=== PATIENT | male | born 1935 | race Caucasian/White ===

== ENCOUNTER 2017-04-30 09:23 | Day surgery (SDC) | payer MEDICARE ==
[2017-04-24 14:46] VITALS: BMI 30.8
[~2017-04-30 09:23] MED LIST: LACTATED RINGERS 1,000 ML IV SCH
[2017-04-30 10:03] LABS: Glucose,Whole Blood 116 mg/dL (75-99)
[2017-04-30] MEDS ORDERED: LIDOCAINE 1% 20 ML VIAL (10MG/ML) FOR IV START INTRADERMA ONE (10:03)
[2017-04-30 10:05] VITALS: TEMP 98
[2017-04-30] MEDS ORDERED: LIDOCAINE 1% INJ 10MG/ML (20 ML MDV) ONE (10:34)
[2017-04-30] MEDS ORDERED: PROPOFOL 10 MG/ML 20 ML VIAL IV ONE (10:34)
--- NOTE | 2017-04-30 10:52 | P.PCN ---
Date of Procedure: 04/30/17 Procedure(s) Performed: BRIEF HISTORY: Patient is a 81-year-old, pleasant, white male scheduled for an upper endoscopy as a part of evaluation of history of GERD and intermittent dysphagia to solids. 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 Following that he had surveillance upper endoscopy a few times and the last one was done in November 2012 at which time there was no evidence of recurrent Hernandez's esophagus. He remained on IV proton pump inhibitors and was doing well until recently when he started having more reflux and dysphagia.. PROCEDURE PERFORMED: Esophagogastroduodenoscopy with biopsy PREOPERATIVE DIAGNOSIS: GERD/intermittent dysphagia to solids/prior history of Hernandez's esophagus status post RFA in 2010. IV sedation per anesthesia. PROCEDURE: After informed consent was obtained, the patient was brought into the endoscopy unit. IV sedation was administered by Anesthesia under continuous monitoring. Initially the Olympus GIF-140 video endoscope was inserted into the mouth. Esophagus intubated without any difficulty. It was gradually advanced into the stomach and duodenum and carefully examined. The bulb and the second part of the duodenum appeared normal. The scope at this time was withdrawn to the stomach, adequately insufflated with air, and upon careful examination, mucosa of the antrum, body, cardia and the fundus appeared normal. The scope was then withdrawn into the esophagus. Small hiatal hernia noted. The GE junction was located at 40 cm from the incisors. Proximal to the GE junction at 38 cm from the incisors there was a raised ulcerated lesion measuring 1.5 cm in size and multiple biopsies were obtained from this area. Adjacent to this area there was a 1 L area of Hernandez's appearing mucosa noted. The rest of the esophagus appeared normal. There were no erosions or ulcerations seen and the patient tolerated the procedure well. IMPRESSION: 1. 1.5 cm slightly raised ulcerated lesion in the distal esophagus at 38 cm from the anal verge status post multiple biopsies. 2. Small hiatal hernia. RECOMMENDATIONS: The findings of this examination were discussed with the patient as well as his family. He was advised to follow with the biopsy results and he'll be seen in office in a week..
[2017-04-30 10:54] VITALS: RESP 18
[2017-04-30 11:12] VITALS: BP 126/67; PULSE 67
== END 2017-04-30 11:33 | disposition home or self-care (01) ==
LOC: ORWHC2ENDO 09:23
PROVIDERS: ATTEND Internal Medicine Gastroenterology
DX: C15.5 Malignant neoplasm of lower third of esophagus (principal); K21.9 Gastro-esophageal reflux disease without esophagitis; K44.9 Diaphragmatic hernia without obstruction or gangrene; I10 Essential (primary) hypertension; E78.5 Hyperlipidemia, unspecified; M10.9 Gout, unspecified; E11.9 Type 2 diabetes mellitus without complications; Z79.82 Long term (current) use of aspirin; Z79.4 Long term (current) use of insulin; Z79.899 Other long term (current) drug therapy; Z88.0 Allergy status to penicillin; Z91.040 Latex allergy status
CPT/HCPCS: 88305; 43239; J2001; J2704

== ENCOUNTER 2017-09-01 17:43 | Emergency (ER) | payer MEDICARE ==
[2017-09-01] MEDS ORDERED: OXYMETAZOLINE 0.05% NASL SPRAY 1 SPRAY BOTTLE NASAL STA (18:10)
[2017-09-01] MEDS ORDERED: EPINEPHrine TOPICAL 1 MG/ML 30 ML NASAL STA (18:15)
[2017-09-01] MEDS ORDERED: COCAINE HCL 4 ML SOLUTION TOPICAL ONE (18:16)
--- NOTE | 2017-09-01 18:47 | ED ---
ENT HPI - General Chief complaint: ENT Stated complaint: Nosebleed/ca pt Time Seen by Provider: 09/01/17 18:02 Source: patient, RN notes reviewed Mode of arrival: ambulatory Limitations: no limitations - History of Present Illness Initial comments: This is a 82-year-old male who is currently being treated for esophageal cancer who is status post radiation therapy today he was given IV fluids who started developing a nosebleed earlier today and has persisted throughout the day. His states he has been having more recent nosebleeds over last couple weeks. Blood work done today shows that had a platelet count 77,000. He denies any fevers chills sweats or other symptoms no trauma is reported. He believes is coming on the right side of his head and also bleeding on the left side also. MD complaint: epistaxis - Related Data Home Medications Medication Instructions Recorded Confirmed Aspirin 81 mg PO DAILY 07/05/15 09/01/17 Cetirizine HCl 10 mg PO DAILY PRN 07/05/15 09/01/17 Insulin Glargine,Hum.rec.anlog 40 units SQ QAM 07/05/15 09/01/17 [Lantus Solostar] Nitroglycerin Sl Tabs [Nitrostat] 0.4 mg SUBLINGUAL Q5M PRN 07/05/15 09/01/17 Omeprazole [PriLOSEC] 40 mg PO BID 07/05/15 09/01/17 Potassium Chloride [Klor-Con 10 meq PO DAILY 07/05/15 09/01/17 Sprinkle] Spironolactone [Aldactone] 12.5 mg PO DAILY 07/05/15 09/01/17 Torsemide [Demadex] 100 mg PO DAILY 07/05/15 09/01/17 Zolpidem [Ambien] 10 mg PO HS 07/05/15 09/01/17 Gabapentin [Neurontin] 900 mg PO AC-TID 04/24/17 09/01/17 Gemfibrozil [Lopid] 600 mg PO AC-BID 04/24/17 09/01/17 Insulin Glargine,Hum.rec.anlog 20 unit SQ PC-SUPPER 04/24/17 09/01/17 [Lantus Solostar] traMADol-ACETAMINOP 37.5-325MG 1 - 2 tab PO TID PRN 04/24/17 09/01/17 [Ultracet] INSULIN LISPRO (HumaLOG) [HumaLOG] See Protocol SQ ACHS 09/01/17 09/01/17 Metoprolol Tartrate [Lopressor] 25 mg PO DAILY 09/01/17 09/01/17 Pravastatin Sodium [Pravachol] 80 mg PO HS 09/01/17 09/01/17 metFORMIN HCL [Glucophage] 1,000 mg PO BID 09/01/17 09/01/17 Allergies Allergy/AdvReac Type Severity Reaction Status Date / Time latex Allergy Itching, Verified 09/01/17 18:21 swelling penicillin G Allergy Rash/Hives Verified 09/01/17 18:21 Review of Systems ROS Statement: Those systems with pertinent positive or pertinent negative responses have been documented in the HPI. ROS Other: All systems not noted in ROS Statement are negative. Past Medical History Past Medical History: Cancer, Diabetes Mellitus, GERD/Reflux, Hyperlipidemia, Hypertension, Osteoarthritis (OA) Additional Past Medical History / Comment(s): gout, CARDOSO'S esophagus, History of Any Multi-Drug Resistant Organisms: None Reported Past Surgical History: Appendectomy, Orthopedic Surgery Additional Past Surgical History / Comment(s): LILA shoulder rotator CUFF, ORIF LT FOOT, "esophagus ablation", lila cataracts Past Anesthesia/Blood Transfusion Reactions: No Reported Reaction Additional Past Anesthesia/Blood Transfusion Reaction / Comment(s): . Past Psychological History: No Psychological Hx Reported Smoking Status: Never smoker Past Alcohol Use History: None Reported Past Drug Use History: None Reported - Past Family History Mother Family Medical History: Cancer Additional Family Medical History / Comment(s): . Father Family Medical History: Coronary Artery Disease (CAD) Additional Family Medical History / Comment(s): AT AGE 53 General Exam - General Exam Comments Initial Comments: This is a well-developed well-nourished awake alert oriented 3 male Limitations: no limitations General appearance: alert, anxious Head exam: Present: atraumatic, normocephalic, normal inspection Eye exam: Present: normal appearance, PERRL, EOMI. Absent: scleral icterus, conjunctival injection, periorbital swelling ENT exam: Present: other (Active bleeding from the right naris with some apparent On for the left a nasal clamp had been applied.) Neck exam: Present: normal inspection. Absent: tenderness, meningismus, lymphadenopathy Respiratory exam: Present: normal lung sounds bilaterally. Absent: respiratory distress, wheezes, rales, rhonchi, stridor Cardiovascular Exam: Present: regular rate, normal rhythm, normal heart sounds. Absent: systolic murmur, diastolic murmur, rubs, gallop, clicks Extremities exam: Present: normal inspection, full ROM, normal capillary refill. Absent: tenderness, pedal edema, joint swelling, calf tenderness Back exam: Absent: tenderness Neurological exam: Present: alert, oriented X3, CN II-XII intact Psychiatric exam: Present: normal affect, normal mood Skin exam: Present: warm, dry, intact, normal color. Absent: rash Course Vital Signs 09/01/17 09/01/17 17:54 19:12 Temperature 98.3 F Pulse Rate 95 93 Respiratory 20 17 Rate Blood Pressure 106/60 140/70 O2 Sat by Pulse 98 98 Oximetry Procedures - Procedures Initial comment: I did place a cotton pledget with 50-50 adrenaline and 4% cocaine in the patient 's right naris this was instilled and left for about 15 minutes. It was removed no further bleeding was noted patient was observed for quite a period time he was able ambulate no further bleeding he was cautioned about blowing his nose using saline he has no humidifier in his house and was recommended he get a humidifier he is aware that it could Medical Decision Making - Medical Decision Making Patient was observed for a period of time no further bleeding he'll be discharged Disposition Clinical Impression: Epistaxis Disposition: HOME SELF-CARE Condition: Good Instructions: Nosebleed (ED) Referrals: Sumit Dozier DO [Primary Care Provider] - 1-2 days
[2017-09-01 19:47] VITALS: BP 121/62; PULSE 60; RESP 20; TEMP 96.9
== END 2017-09-01 19:51 | disposition home or self-care (01) ==
LOC: EC 17:43
DX: R04.0 Epistaxis (principal); C15.9 Malignant neoplasm of esophagus, unspecified; E78.5 Hyperlipidemia, unspecified; I10 Essential (primary) hypertension; E11.9 Type 2 diabetes mellitus without complications; M19.90 Unspecified osteoarthritis, unspecified site; M10.9 Gout, unspecified; Z79.4 Long term (current) use of insulin; Z79.82 Long term (current) use of aspirin; Z79.899 Other long term (current) drug therapy; Z88.0 Allergy status to penicillin; Z91.040 Latex allergy status; Z92.3 Personal history of irradiation; Z87.19 Personal history of other diseases of the digestive system
CPT/HCPCS: 30901; 99283

== ENCOUNTER 2017-09-09 11:45 | Inpatient (IN) | payer MEDICARE ==
[2017-09-09] MEDS ORDERED: ACETAMINOPHEN TAB 500 MG TAB PO STA (12:49)
[2017-09-09] MEDS ORDERED: SODIUM CHLORIDE 0.9% 1,000 ML IV STA (12:49)
[2017-09-09] MEDS ORDERED: ONDANSETRON 4 MG/2 ML VIAL IVP STA (13:09)
[2017-09-09 13:24] LABS: Appearance,Urine Clear (Clear); Bilirubin,Urine Negative (Negative); Blood,Urine Negative (Negative); Color,Urine Yellow; Glucose,Urine (UA) Negative (Negative); Ketones,Urine Negative (Negative); Leukocyte Esterase,Urine Negative (Negative); Nitrite,Urine Negative (Negative); Protein,Urine 1+ (Negative); RBC,Urine 1 /hpf (0-5); Specific Gravity,Urine 1.012 (1.001-1.035); Urobilinogen,Urine <2.0 mg/dL (<2.0); WBC,Urine 1 /hpf (0-5)
[2017-09-09 13:25] LABS: HCT 28.1 % (39.0-53.0); HGB 10.2 gm/dL (13.0-17.5); MCH 30.1 pg (25.0-35.0); MCHC 36.2 g/dL (31.0-37.0); MCV 83.3 fL (80.0-100.0); Mean Platelet Volume 8.2; Platelet Count 106 k/uL (150-450); RBC 3.37 m/uL (4.30-5.90); RDW 15.4 % (11.5-15.5)
[2017-09-09 13:32] LABS: WBC 0.4 k/uL (3.8-10.6)
[2017-09-09 13:33] LABS: Albumin 3.6 g/dL (3.5-5.0); Calcium 8.7 mg/dL (8.4-10.2); Potassium 3.7 mmol/L (3.5-5.1); Total Protein 6.5 g/dL (6.3-8.2)
--- NOTE | 2017-09-09 13:35 | XR ---
EXAMINATION TYPE: XR chest 2V DATE OF EXAM: 09/09/2017 COMPARISON: January 18, 2016 HISTORY: Shortness of breath TECHNIQUE: Frontal and lateral views of the chest are obtained. FINDINGS: Scattered senescent parenchymal changes noted. Hyperinflation compatible with COPD. No evidence for infiltrate. No evidence for atelectasis. Heart size is stable. Mediastinal structures are stable and grossly unremarkable. No evidence for hilar prominence. Degenerative changes dorsal spine. IMPRESSION: 1. No evidence for acute pulmonary disease.
[2017-09-09 13:55] LABS: Poikilocytosis (M) Present
[2017-09-09] MEDS ORDERED: CEFEPIME 1 GM in SODIUM CHLORIDE 0.9% 50 ML IVPB STA (14:22)
[2017-09-09] MEDS ORDERED: NALOXONE 0.4 MG/ML 1 ML VIAL IV PRN (15:56)
--- NOTE | 2017-09-09 15:56 | ED ---
Fever HPI - General Chief Complaint: Fever Stated Complaint: Fever & dehydration Time Seen by Provider: 09/09/17 12:49 Source: patient, family Mode of arrival: wheelchair Limitations: no limitations - History of Present Illness Initial Comments: Patient presents with a fever. He has a history of cancer. He is currently undergoing chemotherapy and radiation. Patient denies any chest pain or back pain. He has no shortness of breath. He has no lightheadedness or dizziness. He has no neck pain or stiffness. He has no focal weakness or trouble walking. He is tolerating oral intake. - Related Data Home Medications Medication Instructions Recorded Confirmed Aspirin 81 mg PO DAILY 07/05/15 09/09/17 Cetirizine HCl 10 mg PO DAILY PRN 07/05/15 09/09/17 Insulin Glargine,Hum.rec.anlog 40 units SQ QAM 07/05/15 09/09/17 [Lantus Solostar] Nitroglycerin Sl Tabs [Nitrostat] 0.4 mg SUBLINGUAL Q5M PRN 07/05/15 09/09/17 Omeprazole [PriLOSEC] 40 mg PO BID 07/05/15 09/09/17 Potassium Chloride [Klor-Con 10 meq PO DAILY 07/05/15 09/09/17 Sprinkle] Spironolactone [Aldactone] 12.5 mg PO DAILY 07/05/15 09/09/17 Torsemide [Demadex] 100 mg PO DAILY 07/05/15 09/09/17 Zolpidem [Ambien] 10 mg PO HS 07/05/15 09/09/17 Gabapentin [Neurontin] 900 mg PO AC-TID 04/24/17 09/09/17 Gemfibrozil [Lopid] 600 mg PO AC-BID 04/24/17 09/09/17 Insulin Glargine,Hum.rec.anlog 20 unit SQ PC-SUPPER 04/24/17 09/09/17 [Lantus Solostar] INSULIN LISPRO (HumaLOG) [HumaLOG] See Protocol SQ ACHS 09/01/17 09/09/17 Metoprolol Tartrate [Lopressor] 25 mg PO DAILY 09/01/17 09/09/17 Pravastatin Sodium [Pravachol] 80 mg PO HS 09/01/17 09/09/17 metFORMIN HCL [Glucophage] 1,000 mg PO BID 09/01/17 09/09/17 Acetaminophen with Codeine 15 ml PO BID PRN 09/09/17 09/09/17 [Tylenol w/Codeine 120-12 mg/5 ml] Allergies Allergy/AdvReac Type Severity Reaction Status Date / Time latex Allergy Itching, Verified 09/09/17 13:13 swelling penicillin G Allergy Rash/Hives Verified 09/09/17 13:13 Review of Systems ROS Statement: Those systems with pertinent positive or pertinent negative responses have been documented in the HPI. ROS Other: All systems not noted in ROS Statement are negative. Past Medical History Past Medical History: Cancer, Diabetes Mellitus, GERD/Reflux, Hyperlipidemia, Hypertension, Osteoarthritis (OA) Additional Past Medical History / Comment(s): gout, CARDOSO'S esophagus, Esaphageal cancer History of Any Multi-Drug Resistant Organisms: None Reported Past Surgical History: Appendectomy, Orthopedic Surgery Additional Past Surgical History / Comment(s): LILA shoulder rotator CUFF, ORIF LT FOOT, "esophagus ablation", lila cataracts Past Anesthesia/Blood Transfusion Reactions: No Reported Reaction Additional Past Anesthesia/Blood Transfusion Reaction / Comment(s): . Past Psychological History: No Psychological Hx Reported Smoking Status: Never smoker Past Alcohol Use History: None Reported Past Drug Use History: None Reported - Past Family History Mother Family Medical History: Cancer Additional Family Medical History / Comment(s): . Father Family Medical History: Coronary Artery Disease (CAD) Additional Family Medical History / Comment(s): AT AGE 53 General Exam Limitations: no limitations General appearance: alert, in no apparent distress Head exam: Present: atraumatic, normocephalic, normal inspection Eye exam: Present: normal appearance, PERRL, EOMI. Absent: scleral icterus, conjunctival injection, periorbital swelling ENT exam: Present: normal exam, mucous membranes moist Neck exam: Present: normal inspection. Absent: tenderness, meningismus, lymphadenopathy Respiratory exam: Present: normal lung sounds bilaterally. Absent: respiratory distress, wheezes, rales, rhonchi, stridor Cardiovascular Exam: Present: regular rate, normal rhythm, normal heart sounds. Absent: systolic murmur, diastolic murmur, rubs, gallop, clicks GI/Abdominal exam: Present: soft, normal bowel sounds. Absent: distended, tenderness, guarding, rebound, rigid Extremities exam: Present: normal inspection, full ROM, normal capillary refill. Absent: tenderness, pedal edema, joint swelling, calf tenderness Back exam: Present: normal inspection Neurological exam: Present: alert, oriented X3, CN II-XII intact Psychiatric exam: Present: normal affect, normal mood Skin exam: Present: warm, dry, intact, normal color. Absent: rash Course Vital Signs 09/09/17 09/09/17 09/09/17 12:23 13:07 14:26 Temperature 101 F H 98.9 F Pulse Rate 100 101 H 90 Respiratory 18 18 18 Rate Blood Pressure 108/56 125/60 101/50 O2 Sat by Pulse 98 99 99 Oximetry 09/09/17 15:14 Temperature Pulse Rate 79 Respiratory 18 Rate Blood Pressure 116/63 O2 Sat by Pulse 100 Oximetry Medical Decision Making - Medical Decision Making Patient presents with fever. His white count is very low. I sent blood cultures and started him on IV antibiotics. Patient will be admitted to the hospital. - Lab Data Result diagrams: 09/09/17 13:05 09/09/17 13:05 Lab Results 09/09/17 09/09/17 09/09/17 Range/Units 13:05 13:05 13:05 WBC 0.4 L* (3.8-10.6) k/uL RBC 3.37 L (4.30-5.90) m/uL Hgb 10.2 L (13.0-17.5) gm/dL Hct 28.1 L (39.0-53.0) % MCV 83.3 (80.0-100.0) fL MCH 30.1 (25.0-35.0) pg MCHC 36.2 (31.0-37.0) g/dL RDW 15.4 (11.5-15.5) % Plt Count 106 L (150-450) k/uL Differential Comment Manual Slide Review Performed Poikilocytosis (manual Present Sodium 147 H (137-145) mmol/L Potassium 3.7 (3.5-5.1) mmol/L Chloride 108 H (98-107) mmol/L Carbon Dioxide 23 (22-30) mmol/L Anion Gap 16 mmol/L BUN 26 H (9-20) mg/dL Creatinine 1.13 (0.66-1.25) mg/dL Est GFR (CKD-EPI)AfAm 71 (>60 ml/min/1.73 sqM) Est GFR (CKD-EPI)NonAf 61 (>60 ml/min/1.73 sqM) Glucose 95 (74-99) mg/dL Plasma Lactic Acid Nestor (0.7-2.0) mmol/L Calcium 8.7 (8.4-10.2) mg/dL Total Bilirubin 1.0 (0.2-1.3) mg/dL AST 24 (17-59) U/L ALT 29 (21-72) U/L Alkaline Phosphatase 57 (38-126) U/L Total Protein 6.5 (6.3-8.2) g/dL Albumin 3.6 (3.5-5.0) g/dL Urine Color Urine Appearance (Clear) Urine pH (5.0-8.0) Ur Specific [place] (1.001-1.035) Urine Protein (Negative) Urine Glucose (UA) (Negative) Urine Ketones (Negative) Urine Blood (Negative) Urine Nitrite (Negative) Urine Bilirubin (Negative) Urine Urobilinogen (<2.0) mg/dL Ur Leukocyte Esterase (Negative) Urine RBC (0-5) /hpf Urine WBC (0-5) /hpf Influenza Type A RNA Not Detected (Not Detectd) Influenza Type B (PCR) Not Detected (Not Detectd) Group A Strep Rapid (Negative) 09/09/17 09/09/17 09/09/17 Range/Units 13:05 13:05 13:05 WBC (3.8-10.6) k/uL RBC (4.30-5.90) m/uL Hgb (13.0-17.5) gm/dL Hct (39.0-53.0) % MCV (80.0-100.0) fL MCH (25.0-35.0) pg MCHC (31.0-37.0) g/dL RDW (11.5-15.5) % Plt Count (150-450) k/uL Differential Comment Manual Slide Review Poikilocytosis (manual Sodium (137-145) mmol/L Potassium (3.5-5.1) mmol/L Chloride (98-107) mmol/L Carbon Dioxide (22-30) mmol/L Anion Gap mmol/L BUN (9-20) mg/dL Creatinine (0.66-1.25) mg/dL Est GFR (CKD-EPI)AfAm (>60 ml/min/1.73 sqM) Est GFR (CKD-EPI)NonAf (>60 ml/min/1.73 sqM) Glucose (74-99) mg/dL Plasma Lactic Acid Nestor 2.0 (0.7-2.0) mmol/L Calcium (8.4-10.2) mg/dL Total Bilirubin (0.2-1.3) mg/dL AST (17-59) U/L ALT (21-72) U/L Alkaline Phosphatase (38-126) U/L Total Protein (6.3-8.2) g/dL Albumin (3.5-5.0) g/dL Urine Color Yellow Urine Appearance Clear (Clear) Urine pH 6.0 (5.0-8.0) Ur Specific [place] 1.012 (1.001-1.035) Urine Protein 1+ H (Negative) Urine Glucose (UA) Negative (Negative) Urine Ketones Negative (Negative) Urine Blood Negative (Negative) Urine Nitrite Negative (Negative) Urine Bilirubin Negative (Negative) Urine Urobilinogen <2.0 (<2.0) mg/dL Ur Leukocyte Esterase Negative (Negative) Urine RBC 1 (0-5) /hpf Urine WBC 1 (0-5) /hpf Influenza Type A RNA (Not Detectd) Influenza Type B (PCR) (Not Detectd) Group A Strep Rapid Negative (Negative) Disposition Clinical Impression: Bacteremia Disposition: ADMITTED IP TO THIS HOSP Condition: Fair Referrals: Sumit Dozier DO [Primary Care Provider] - 1-2 days Time of Disposition: 15:56
[2017-09-09] MEDS ORDERED: LORATADINE 10 MG TAB PO PRN (15:59)
[2017-09-09] MEDS ORDERED: ACET/COD 240MG/24MG LIQ 10 ML SYRG PO PRN (17:11)
--- NOTE | 2017-09-09 17:20 | P.HPIM ---
History of Present Illness Patient is 82-year-old gentleman came in with complaints of fever started today morning was comparing of cough with whitish sputum production patient has history of esophageal cancer last received chemotherapy last week was not given Neupogen as his white blood cell count was okay at the time and patient denied any dysuria denied any nausea vomiting patient is unable to eat much he feels like his food gets stuck in the mid esophageal area patient completed his radiation therapy yesterday. was neutropenic chest x-ray did not show any pneumonic infiltrate he is not impressive for urinary tract infection patient doesn't have any signs or symptoms of meningitis Review of Systems REVIEW OF SYSTEMS: CONSTITUTIONAL: Mentioned in HPI HEENT: No recent visual problems or hearing problems. Denied any sore throat. CARDIOVASCULAR: No chest pain, orthopnea, PND, no palpitations, no syncope. PULMONARY: No shortness of breath, no cough, no hemoptysis. GASTROINTESTINAL: No diarrhea, no nausea, no vomiting, no abdominal pain. Normoactive bowel sounds. NEUROLOGICAL: No headaches, no weakness, no numbness. HEMATOLOGICAL: Denies any bleeding or petechiae. GENITOURINARY: Denies any burning micturition, frequency, or urgency. MUSCULOSKELETAL/RHEUMATOLOGICAL: Denies any joint pain, swelling, or any muscle pain. ENDOCRINE: Denies any polyuria or polydipsia. The rest of the 14-point review of systems is negative. Past Medical History Past Medical History: Cancer, Diabetes Mellitus, GERD/Reflux, Hyperlipidemia, Hypertension, Osteoarthritis (OA) Additional Past Medical History / Comment(s): gout, CARDOSO'S esophagus, Esaphageal cancer History of Any Multi-Drug Resistant Organisms: None Reported Past Surgical History: Appendectomy, Orthopedic Surgery Additional Past Surgical History / Comment(s): LILA shoulder rotator CUFF, ORIF LT FOOT, "esophagus ablation", lila cataracts Past Anesthesia/Blood Transfusion Reactions: No Reported Reaction Additional Past Anesthesia/Blood Transfusion Reaction / Comment(s): . Past Psychological History: No Psychological Hx Reported Smoking Status: Never smoker Past Alcohol Use History: None Reported Past Drug Use History: None Reported - Past Family History Mother Family Medical History: Cancer Additional Family Medical History / Comment(s): . Father Family Medical History: Coronary Artery Disease (CAD) Additional Family Medical History / Comment(s): AT AGE 53 Medications and Allergies Home Medications Medication Instructions Recorded Confirmed Type Aspirin 81 mg PO DAILY 07/05/15 09/09/17 History Cetirizine HCl 10 mg PO DAILY PRN 07/05/15 09/09/17 History Insulin Glargine,Hum.rec.anlog 40 units SQ QAM 07/05/15 09/09/17 History [Lantus Solostar] Nitroglycerin Sl Tabs [Nitrostat] 0.4 mg SUBLINGUAL Q5M PRN 07/05/15 09/09/17 History Omeprazole [PriLOSEC] 40 mg PO BID 07/05/15 09/09/17 History Potassium Chloride [Klor-Con 10 meq PO DAILY 07/05/15 09/09/17 History Sprinkle] Spironolactone [Aldactone] 12.5 mg PO DAILY 07/05/15 09/09/17 History Torsemide [Demadex] 100 mg PO DAILY 07/05/15 09/09/17 History Zolpidem [Ambien] 10 mg PO HS 07/05/15 09/09/17 History Gabapentin [Neurontin] 900 mg PO AC-TID 04/24/17 09/09/17 History Gemfibrozil [Lopid] 600 mg PO AC-BID 04/24/17 09/09/17 History Insulin Glargine,Hum.rec.anlog 20 unit SQ PC-SUPPER 04/24/17 09/09/17 History [Lantus Solostar] INSULIN LISPRO (HumaLOG) [HumaLOG] See Protocol SQ ACHS 09/01/17 09/09/17 History Metoprolol Tartrate [Lopressor] 25 mg PO DAILY 09/01/17 09/09/17 History Pravastatin Sodium [Pravachol] 80 mg PO HS 09/01/17 09/09/17 History metFORMIN HCL [Glucophage] 1,000 mg PO BID 09/01/17 09/09/17 History Acetaminophen with Codeine 15 ml PO BID PRN 09/09/17 09/09/17 History [Tylenol w/Codeine 120-12 mg/5 ml] Allergies Allergy/AdvReac Type Severity Reaction Status Date / Time latex Allergy Itching, Verified 09/09/17 13:13 swelling penicillin G Allergy Rash/Hives Verified 09/09/17 13:13 Physical Exam Vitals: Vital Signs Temp Pulse Pulse Resp BP BP Pulse Ox 09/09/17 17:07 97.6 F 90 16 118/57 97 09/09/17 16:00 97.0 F L 84 18 119/59 98 09/09/17 15:14 79 18 116/63 100 09/09/17 14:26 98.9 F 90 18 101/50 99 09/09/17 13:07 101 H 18 125/60 99 09/09/17 12:23 101 F H 100 18 108/56 98 Intake and Output 09/09/17 09/09/17 09/09/17 06:59 14:59 22:59 Other: Weight 83.461 kg PHYSICAL EXAMINATION: GENERAL: The patient is alert and oriented x3, not in any acute distress. Well developed, well nourished. She appears tired HEENT: Pupils are round and equally reacting to light. EOMI. No scleral icterus. No conjunctival pallor. Normocephalic, atraumatic. No pharyngeal erythema. No thyromegaly. CARDIOVASCULAR: S1 and S2 present. No murmurs, rubs, or gallops. PULMONARY: Chest is clear to auscultation, no wheezing or crackles. ABDOMEN: Soft, nontender, nondistended, normoactive bowel sounds. No palpable organomegaly. MUSCULOSKELETAL: No joint swelling or deformity. EXTREMITIES: No cyanosis, clubbing, or pedal edema. NEUROLOGICAL: Gross neurological examination did not reveal any focal deficits. SKIN: No rashes. Results CBC & Chem 7: 09/09/17 13:05 09/09/17 13:05 Labs: Abnormal Lab Results - Last 24 Hours (Table) 09/09/17 09/09/17 09/09/17 Range/Units 13:05 13:05 13:05 WBC 0.4 L* (3.8-10.6) k/uL RBC 3.37 L (4.30-5.90) m/uL Hgb 10.2 L (13.0-17.5) gm/dL Hct 28.1 L (39.0-53.0) % Plt Count 106 L (150-450) k/uL Sodium 147 H (137-145) mmol/L Chloride 108 H (98-107) mmol/L BUN 26 H (9-20) mg/dL Urine Protein 1+ H (Negative) Assessment and Plan Plan: - neutropenic fever source is unknown patient will be started on cefepime awaiting blood cultures urine cultures. We'll consult oncology regarding Neupogen -Dysphagia and odynophagia secondary to the circumflex to trees esophageal cancer I do not see any oral thrush at this time. Patient will be continued on Vanco solution patient is unable to swallow probably because of her mucositis. -Type 2 diabetes mellitus: Patient is not eating well because of which will cut down the dose of long-acting insulin sliding scale insulin with each meals will be continued on metformin will be discontinue -Esophageal cancer status post chemo and radiation therapy -Hyperlipidemia -Hypertension -Gastroesophageal reflux disease: Pepcid will be continued For above-mentioned chronic medical problems patient will be resumed and continued on appropriate home medications
[2017-09-09] MEDS ORDERED: GABAPENTIN 300 MG CAP PO SCH (17:30)
[2017-09-09] MEDS: GEMFIBROZIL 600 MG TAB PO SCH (17:51)
[2017-09-09 18:14] LABS: Glucose,Whole Blood 210 mg/dL (75-99)
[2017-09-09] MEDS ORDERED: INSULIN DETEMIR 100 UNIT/ML 10 ML VIAL SQ SCH (18:30)
[2017-09-09] MEDS: SODIUM CHLORIDE 0.9% 1,000 ML IV SCH (18:30)
[2017-09-09] MEDS: GABAPENTIN 300 MG CAP PO SCH (18:33)
[2017-09-09] MEDS: MAG HYDROX/AL HYDROX/SIMETH 30 ML, LIDOCAINE VISCOUS 30 ML, diphenhydrAMINE ELIXIR 75 M... PO SCH ×8 (18:37→22:23)
[2017-09-09] MEDS: INSULIN DETEMIR 100 UNIT/ML 10 ML VIAL SQ SCH (18:42)
[2017-09-09] MEDS: traMADol 50 MG TAB PO PRN (19:41)
[2017-09-09] MEDS: PRAVASTATIN SODIUM 80 MG TAB PO SCH (19:45)
[2017-09-09] MEDS: FAMOTIDINE 20 MG TAB PO SCH (19:46)
[2017-09-09] MEDS: GABAPENTIN 400 MG CAP PO SCH (19:47)
[2017-09-09] MEDS ORDERED: SUCRALFATE 1 GM TAB PO STA (20:03)
[2017-09-09 20:26] LABS: Glucose,Whole Blood 291 mg/dL (75-99)
[2017-09-09] MEDS ORDERED: metFORMIN 500 MG TAB PO SCH (21:00)
[2017-09-09] MEDS: SUCRALFATE 1 GM TAB PO SCH (22:23)
[2017-09-09] MEDS: PANTOPRAZOLE 40 MG/10 ML VIAL IVP SCH (22:23)
[2017-09-09] MEDS: ZOLPIDEM 10 MG TAB PO SCH (22:28)
[2017-09-09] MEDS: INSULIN ASPART 100 UNIT/ML 1 ML 10 ML VIAL SQ SCH (22:28)
[2017-09-09] MEDS: CEFEPIME 1 GM in SODIUM CHLORIDE 0.9% 50 ML IVPB SCH (22:49)
[2017-09-10 04:18] LABS: Hemoglobin A1C 7.5 % (4.0-6.0)
[2017-09-10 07:32] LABS: Glucose,Whole Blood 80 mg/dL (75-99)
[2017-09-10] MEDS: INSULIN ASPART 100 UNIT/ML 1 ML 10 ML VIAL SQ SCH ×4 (07:38→20:42)
[2017-09-10] MEDS: SODIUM CHLORIDE 0.9% 1,000 ML IV SCH (07:45)
[2017-09-10] MEDS: GABAPENTIN 300 MG CAP PO SCH ×2 (07:46→16:32)
[2017-09-10] MEDS: PANTOPRAZOLE 40 MG/10 ML VIAL IVP SCH (07:46)
[2017-09-10] MEDS: FAMOTIDINE 20 MG TAB PO SCH ×2 (07:46→20:42)
[2017-09-10] MEDS: GEMFIBROZIL 600 MG TAB PO SCH ×2 (07:47→16:31)
[2017-09-10] MEDS: METOPROLOL TARTRATE 25 MG TAB PO SCH (07:47)
[2017-09-10] MEDS: SUCRALFATE 1 GM TAB PO SCH ×4 (07:47→20:42)
[2017-09-10] MEDS: CEFEPIME 1 GM in SODIUM CHLORIDE 0.9% 50 ML IVPB SCH ×2 (07:47→16:30)
[2017-09-10] MEDS: MAG HYDROX/AL HYDROX/SIMETH 30 ML, LIDOCAINE VISCOUS 30 ML, diphenhydrAMINE ELIXIR 75 M... PO SCH ×12 (07:48→22:16)
[2017-09-10 08:27] LABS: HCT 24.1 % (39.0-53.0); MCH 29.2 pg (25.0-35.0); MCHC 34.3 g/dL (31.0-37.0); MCV 85.1 fL (80.0-100.0); Platelet Count 101 k/uL (150-450); RBC 2.84 m/uL (4.30-5.90); RDW 15.7 % (11.5-15.5)
[2017-09-10 08:38] LABS: HGB 8.3 gm/dL (13.0-17.5)
[2017-09-10 08:40] LABS: WBC 0.5 k/uL (3.8-10.6)
[2017-09-10 08:46] LABS: Anion Gap 13 mmol/L; Blood Urea Nitrogen 24 mg/dL (9-20); Calcium 8.2 mg/dL (8.4-10.2); Carbon Dioxide 22 mmol/L (22-30); Chloride 115 mmol/L (98-107); Glucose 74 mg/dL (74-99); Sodium 150 mmol/L (137-145)
[2017-09-10] MEDS ORDERED: SPIRONOLACTONE 25 MG TAB PO SCH (09:00)
[2017-09-10] MEDS ORDERED: INSULIN DETEMIR 100 UNIT/ML 10 ML VIAL SQ SCH (09:00)
[2017-09-10 09:01] LABS: Potassium 3.5 mmol/L (3.5-5.1)
[2017-09-10] MEDS: traMADol 50 MG TAB PO PRN ×2 (09:08→15:21)
[2017-09-10 10:06] VITALS: BMI 28.8
[2017-09-10 11:24] LABS: Glucose,Whole Blood 216 mg/dL (75-99)
[2017-09-10] MEDS: ASPIRIN 81 MG PO SCH (11:54)
[2017-09-10] MEDS: FILGRASTIM-SNDZ 480 MCG/0.8 ML SYRINGE SQ SCH (12:41)
[2017-09-10] MEDS: INSULIN DETEMIR 100 UNIT/ML 10 ML VIAL SQ SCH ×2 (12:42→19:39)
--- NOTE | 2017-09-10 12:59 | P.CONS ---
History of Present Illness - Reason for Consult Consult date: 09/10/17 febrile neutropenia Requesting physician: Thomas Quinn - Chief Complaint fever - History of Present Illness Mr. Bradford is a very pleasant male pt of Dr. Resendez who was known to have Cardoso esophagus, treated with endoscopic mucosal resection and radio- frequency ablation, last one was 12/08/[address] Ramos at [facility]. He then presented early Apr 2017 with c/o mild, intermittent dysphagea, EGD on 04/30/17 revealed a small lesion at distal esophagous, biopsy positive for adenocarcinoma, staging PET 05/30/17 revealed faint uptake at distal esophagous, otherwise negative, EUS on 06/12/17 revealed mass at distal esophagus about 3.5mm thick, invading into muscularis propria and 3 suspicious paraesopahgeal nodes. 07/02/17 he had EMR at [facility], path revealed invasive carcinoma involving lateral and deep margins, HER2 negative. He was referred for recommendations for treatment. Pt decided on definitive treatment , concurrent chemo/radiation started on 07/29/17 and he completed 5 carbo/taxol and radiation last week. He was getting some hydration in the office intermittently. Pt ended coming to ER with fever of 103F at home, pt does not remember coming to the hospital. Today he is oriented, family is at bedside. No fever this am, his mouth is mildly irritated, he is able to swallow liquids and very soft, moist food, the supportive meds he his on here have really helped with swallowing, no nausea or vomiting this AM, denies cough, SOB, abd pain, diarrhea, consitpation, dysuria, swelling or pain, he has stooped having nose bleeds. Review of Systems 14 point ROS as stated in HPI Past Medical History Past Medical History: Cancer, Diabetes Mellitus, GERD/Reflux, Hyperlipidemia, Hypertension, Osteoarthritis (OA), Pneumonia Additional Past Medical History / Comment(s): gout, CARDOSO'S esophagus, Esaphageal cancer-completed the last of 28 tx on and has had so far 5 chemo tx last on was last thu09/02/17. pt's stated his weight has gone down from 201 to 183 over 6 weeks. has been drinking vanillia premier protein shakes daily am.hiatal hernia, kidney stones 40 years ago,pne 20 years ago, neuropathy, past stomach ulcers,"lt carotid 100% blkg, shingelles -2016 History of Any Multi-Drug Resistant Organisms: None Reported Past Surgical History: Appendectomy, Orthopedic Surgery Additional Past Surgical History / Comment(s): LILA shoulder rotator CUFF, ORIF LT FOOT thinks he has plate and screws, "esophagus radiofrequency ablation", lila cataracts-lens implants Past Anesthesia/Blood Transfusion Reactions: No Reported Reaction Additional Past Anesthesia/Blood Transfusion Reaction / Comm: . Smoking Status: Never smoker - Past Family History Mother Family Medical History: Cancer Additional Family Medical History / Comment(s): . Father Family Medical History: Coronary Artery Disease (CAD) Additional Family Medical History / Comment(s): AT AGE 53 Medications and Allergies Home Medications Medication Instructions Recorded Confirmed Type Aspirin 81 mg PO DAILY 07/05/15 09/09/17 History Cetirizine HCl 10 mg PO DAILY PRN 07/05/15 09/09/17 History Insulin Glargine,Hum.rec.anlog 40 units SQ QAM 07/05/15 09/09/17 History [Lantus Solostar] Nitroglycerin Sl Tabs [Nitrostat] 0.4 mg SUBLINGUAL Q5M PRN 07/05/15 09/09/17 History Omeprazole [PriLOSEC] 40 mg PO BID 07/05/15 09/09/17 History Potassium Chloride [Klor-Con 10 meq PO DAILY 07/05/15 09/09/17 History Sprinkle] Spironolactone [Aldactone] 12.5 mg PO DAILY 07/05/15 09/09/17 History Torsemide [Demadex] 100 mg PO DAILY 07/05/15 09/09/17 History Zolpidem [Ambien] 10 mg PO HS 07/05/15 09/09/17 History Gabapentin [Neurontin] 600 mg PO BID 04/24/17 09/09/17 History Gemfibrozil [Lopid] 600 mg PO AC-BID 04/24/17 09/09/17 History Insulin Glargine,Hum.rec.anlog 20 unit SQ PC-SUPPER 04/24/17 09/09/17 History [Lantus Solostar] INSULIN LISPRO (HumaLOG) [HumaLOG] See Protocol SQ ACHS 09/01/17 09/09/17 History Metoprolol Tartrate [Lopressor] 25 mg PO DAILY 09/01/17 09/09/17 History Pravastatin Sodium [Pravachol] 80 mg PO HS 09/01/17 09/09/17 History metFORMIN HCL [Glucophage] 1,000 mg PO BID 09/01/17 09/09/17 History Acetaminophen with Codeine 15 ml PO BID PRN 09/09/17 09/09/17 History [Tylenol w/Codeine 120-12 mg/5 ml] Gabapentin [Neurontin] 1,200 mg PO HS 09/09/17 09/09/17 History Allergies Allergy/AdvReac Type Severity Reaction Status Date / Time latex Allergy Itching Verified 09/09/17 18:57 penicillin G Allergy Rash/Hives Verified 09/09/17 13:13 Physical Exam Vitals: Vital Signs Temp Pulse Pulse Resp BP BP Pulse Ox 09/10/17 08:00 81 18 09/10/17 07:00 100.7 F H 81 18 97/59 93 L 09/10/17 00:00 16 09/09/17 23:00 96.1 F L 89 16 131/60 95 09/09/17 17:07 97.6 F 90 16 118/57 97 09/09/17 16:00 97.0 F L 84 18 119/59 98 09/09/17 15:14 79 18 116/63 100 09/09/17 14:26 98.9 F 90 18 101/50 99 09/09/17 13:07 101 H 18 125/60 99 Intake and Output 09/09/17 09/10/17 09/10/17 22:59 06:59 14:59 Intake Total 590 1200 Balance 590 1200 Intake: Intake, IV Titration 950 Amount Sodium Chloride 0.9% 1, 950 000 ml @ 75 mls/hr IV . [id number] [facility] Rx#:[id number] Oral 590 250 Other: Voiding Method Toilet Toilet # Voids 1 3 Weight 83.461 kg - Constitutional General appearance: cooperative, no acute distress, obese - EENT dry mucus membranes, scant thrush, no open ulceration Eyes: anicteric sclerae, EOMI - Neck Neck: no lymphadenopathy - Respiratory Respiratory: bilateral: CTA - Cardiovascular Rhythm: regular Heart sounds: normal: S1, S2 leg Peripheral Edema: bilateral: None - Gastrointestinal General gastrointestinal: normal bowel sounds, soft - Integumentary Integumentary: pale - Neurologic Neurologic: CNII-XII intact - Musculoskeletal Musculoskeletal: generalized weakness, strength equal bilaterally - Psychiatric Psychiatric: A&O x's 3, appropriate affect, intact judgment & insight Results CBC & Chem 7: 09/10/17 08:01 09/10/17 08:01 Labs: Abnormal Lab Results - Last 24 Hours (Table) 09/09/17 09/09/17 09/09/17 Range/Units 13:05 13:05 13:05 WBC 0.4 L* (3.8-10.6) k/uL RBC 3.37 L (4.30-5.90) m/uL Hgb 10.2 L (13.0-17.5) gm/dL Hct 28.1 L (39.0-53.0) % RDW (11.5-15.5) % Plt Count 106 L (150-450) k/uL Sodium 147 H (137-145) mmol/L Chloride 108 H (98-107) mmol/L BUN 26 H (9-20) mg/dL POC Glucose (mg/dL) (75-99) mg/dL Hemoglobin A1c (4.0-6.0) % Calcium (8.4-10.2) mg/dL Urine Protein 1+ H (Negative) 09/09/17 09/09/17 09/09/17 Range/Units 13:05 18:04 20:25 WBC (3.8-10.6) k/uL RBC (4.30-5.90) m/uL Hgb (13.0-17.5) gm/dL Hct (39.0-53.0) % RDW (11.5-15.5) % Plt Count (150-450) k/uL Sodium (137-145) mmol/L Chloride (98-107) mmol/L BUN (9-20) mg/dL POC Glucose (mg/dL) 210 H 291 H (75-99) mg/dL Hemoglobin A1c 7.5 H (4.0-6.0) % Calcium (8.4-10.2) mg/dL Urine Protein (Negative) 03/29/18 03/29/18 03/29/18 Range/Units 08:01 08:01 11:22 WBC 0.5 L* (3.8-10.6) k/uL RBC 2.84 L (4.30-5.90) m/uL Hgb 8.3 L D (13.0-17.5) gm/dL Hct 24.1 L (39.0-53.0) % RDW 15.7 H (11.5-15.5) % Plt Count 101 L (150-450) k/uL Sodium 150 H (137-145) mmol/L Chloride 115 H (98-107) mmol/L BUN 24 H (9-20) mg/dL POC Glucose (mg/dL) 216 H (75-99) mg/dL Hemoglobin A1c (4.0-6.0) % Calcium 8.2 L (8.4-10.2) mg/dL Urine Protein (Negative) Microbiology - Last 24 Hours (Table) 09/09/17 14:26 Gram Stain - Preliminary Sputum Sputum Culture - Preliminary 09/09/17 13:05 Group A Strep Throat Culture - Preliminary Throat Chest x-ray: report reviewed Assessment and Plan (1) Febrile neutropenia Narrative/Plan: Secondary to chemotherapy. Pancultures pending, GCSF initiated, empiric antibiotics ordered. Cont to monitor temp, Fever pattern better today Current Visit: Yes Status: Acute Priority: High Code(s): D70.9 - NEUTROPENIA, UNSPECIFIED; R50.81 - FEVER PRESENTING WITH CONDITIONS CLASSIFIED ELSEWHERE SNOMED Code(s): 535953817 (2) Pancytopenia due to antineoplastic chemotherapy Narrative/Plan: No intervention for Hgb 8.3, platelets are adequate for DVT prophylaxis GCSF added for severe leukocytosis CBC daily Current Visit: Yes Status: Acute Priority: High Code(s): D61.810 - ANTINEOPLASTIC CHEMOTHERAPY INDUCED PANCYTOPENIA; T45.1X5A - ADVERSE EFFECT OF ANTINEOPLASTIC AND IMMUNOSUP DRUGS, INIT SNOMED Code(s): 055484389487823 (3) Radiation esophagitis Narrative/Plan: Pt is actually tolerating a decent amount of intake, he states the current supportive meds are helping a lot. Will continue supportive care, encourage liquids and very soft foods. Explained to pt that he could expect improvement slowly over the next 2-3 weeks. Current Visit: Yes Status: Acute Priority: High Code(s): K20.8 - OTHER ESOPHAGITIS SNOMED Code(s): 056227105 (4) Adenocarcinoma of esophagus, stage 3 Narrative/Plan: Pt have completed definitive chemo/radiation. He will follow up in 2-[address] Resendez for follow up and monitoring plan of care. Current Visit: Yes Status: Acute Priority: High Code(s): C15.9 - MALIGNANT NEOPLASM OF ESOPHAGUS, UNSPECIFIED SNOMED Code(s): 957712111
[2017-09-10] MEDS ORDERED: NITROGLYCERIN SL TABS 0.4 MG TAB SUBLINGUAL PRN (17:13)
--- NOTE | 2017-09-10 17:32 | PN ---
PROGRESS NOTE DATE OF SERVICE: 09/10/2017 This 82-year-old gentleman who was admitted with neutropenic fever, is on broad- spectrum IV antibiotics. Cultures are negative so far. No chest pain. No palpitations. No fever. EXAM: Alert and oriented x3. Pulse is 79, blood pressure 120/66, respiration 18, temperature 97.9, pulse ox 99% on room air. HEENT: Conjunctivae normal. NECK: No jugular venous distention. CARDIOVASCULAR: S1, S2 RESPIRATORY: Breath sounds diminished in the bases. A few scattered rhonchi. No crackles. ABDOMEN: Soft, nontender. LEGS: No edema, no swelling. NERVOUS SYSTEM: No focal deficits. LAB STUDIES: WBC 0.8, hemoglobin is 8.2, sodium 150. ASSESSMENT: 1. Acute neutropenic fever with possible sepsis on empiric antibiotics, cefepime. 2. Dysphagia and odynophagia secondary to esophageal cancer. 3. Diabetes mellitus type 2. 4. Neutropenia, pancytopenia secondary to chemotherapy. 5. Hypertension. 6. Hyperlipidemia. 7. Degenerative joint disease. 8. Hypernatremia. RECOMMENDATIONS AND DISCUSSION: This 82-year-old gentleman who presented with multiple complex medical issues, will monitor the patient closely. Continue the current management and symptomatic treatment. Otherwise at this time I will recommend broad-spectrum IV antibiotics. I would also recommend repeat labs. We will continue 5% dextrose. Otherwise continue to monitor. Prognosis guarded. Further recommendations to follow. MMODL / IJN: [id number] /
[2017-09-10 17:34] LABS: Glucose,Whole Blood 129 mg/dL (75-99)
[2017-09-10] MEDS: ACET/COD 240MG/24MG LIQ 10 ML SYRG PO PRN (18:52)
[2017-09-10] MEDS: PANTOPRAZOLE 40 MG TABLET PO SCH (19:40)
[2017-09-10 20:15] LABS: Glucose,Whole Blood 136 mg/dL (75-99)
[2017-09-10] MEDS: ZOLPIDEM 10 MG TAB PO SCH (20:42)
[2017-09-10] MEDS: GABAPENTIN 400 MG CAP PO SCH (20:42)
[2017-09-10] MEDS: PRAVASTATIN SODIUM 80 MG TAB PO SCH (20:42)
[2017-09-11] MEDS: CEFEPIME 1 GM in SODIUM CHLORIDE 0.9% 50 ML IVPB SCH ×3 (00:44→16:55)
[2017-09-11] MEDS: DEXTROSE 5% IN WATER 1,000 ML IV SCH ×3 (00:47→20:36)
[2017-09-11] MEDS: ACET/COD 240MG/24MG LIQ 10 ML SYRG PO PRN ×2 (06:33→15:29)
[2017-09-11 07:22] LABS: Glucose,Whole Blood 78 mg/dL (75-99)
[2017-09-11] MEDS: INSULIN ASPART 100 UNIT/ML 1 ML 10 ML VIAL SQ SCH ×4 (07:54→20:34)
[2017-09-11 07:57] LABS: Anisocytosis Slight; HCT 23.7 % (39.0-53.0); HGB 8.1 gm/dL (13.0-17.5); MCH 29.5 pg (25.0-35.0); MCHC 34.3 g/dL (31.0-37.0); MCV 86.1 fL (80.0-100.0); Mean Platelet Volume 8.6; Platelet Count 114 k/uL (150-450); Poikilocytosis Slight; RBC 2.75 m/uL (4.30-5.90); RDW 16.2 % (11.5-15.5)
[2017-09-11] MEDS: FAMOTIDINE 20 MG TAB PO SCH ×2 (07:59→20:32)
[2017-09-11] MEDS: PANTOPRAZOLE 40 MG TABLET PO SCH (08:00)
[2017-09-11] MEDS: POTASSIUM CHLORIDE ER 10 MEQ TAB.ER.PRT PO SCH (08:00)
[2017-09-11] MEDS: GEMFIBROZIL 600 MG TAB PO SCH ×2 (08:00→16:55)
[2017-09-11] MEDS: GABAPENTIN 300 MG CAP PO SCH ×2 (08:00→16:55)
[2017-09-11] MEDS: SUCRALFATE 1 GM TAB PO SCH ×4 (08:00→20:34)
[2017-09-11] MEDS: ONDANSETRON 4 MG/2 ML VIAL IVP PRN ×2 (08:05→17:21)
[2017-09-11 08:11] LABS: WBC 1.4 k/uL (3.8-10.6)
[2017-09-11 08:21] LABS: Anion Gap 11 mmol/L; Blood Urea Nitrogen 15 mg/dL (9-20); Calcium 7.8 mg/dL (8.4-10.2); Carbon Dioxide 20 mmol/L (22-30); Chloride 115 mmol/L (98-107); Glucose 71 mg/dL (74-99); Potassium 3.7 mmol/L (3.5-5.1); Sodium 146 mmol/L (137-145)
[2017-09-11 08:52] LABS: Band Neutrophils % 6 %; Lymphocytes # (M) 0.18 k/uL (1.0-4.8); Metamyelocytes # (M) 0.01 k/uL (0); Metamyelocytes % 1 %; Monocytes # (M) 0.38 k/uL (0-1.0); Neutrophils % (M) 53 %; Nucleated Red Blood Cells 0 /100 WBC (0-0); Total Cells Counted 100
[2017-09-11 08:53] LABS: Polychromasia Present
[2017-09-11] MEDS: ASPIRIN 81 MG PO SCH (09:14)
[2017-09-11] MEDS: INSULIN DETEMIR 100 UNIT/ML 10 ML VIAL SQ SCH ×2 (09:14→20:35)
[2017-09-11] MEDS: FILGRASTIM-SNDZ 480 MCG/0.8 ML SYRINGE SQ SCH (09:15)
[2017-09-11] MEDS: traMADol 50 MG TAB PO PRN ×2 (11:30→19:43)
[2017-09-11 11:47] LABS: Glucose,Whole Blood 178 mg/dL (75-99)
[2017-09-11] MEDS: METOPROLOL TARTRATE 25 MG TAB PO SCH (11:55)
--- NOTE | 2017-09-11 12:38 | XR ---
EXAMINATION TYPE: XR abdomen acute w cxr DATE OF EXAM: 09/11/2017 COMPARISON: 09/09/2017 HISTORY: Pain TECHNIQUE: Single view of the chest and 2 views of the abdomen are submitted. FINDINGS: Single view of the chest demonstrates increased basilar markings which may reflect developing infiltr ate. Correlate clinically and progress studies are recommended. There is no evidence for pneumoperitoneum. The bowel gas pattern is unremarkable as there is air throughout nondilated small and large bowel. No sizeable air fluid levels.No mass effects are seen. No unusual calcifications. IMPRESSION: 1. Unremarkable abdomen. 2.Single view of the chest demonstrates increased basilar markings which may reflect developing infil trate. Correlate clinically and progress studies are recommended.
[2017-09-11] MEDS: MAG HYDROX/AL HYDROX/SIMETH 30 ML, LIDOCAINE VISCOUS 30 ML, diphenhydrAMINE ELIXIR 75 M... PO SCH ×12 (15:29→21:17)
[2017-09-11 16:48] LABS: Glucose,Whole Blood 176 mg/dL (75-99)
--- NOTE | 2017-09-11 17:25 | PN ---
PROGRESS NOTE DATE OF SERVICE: 09/01/2017 This 82-year-old gentleman admitted with neutropenic fever was complaining of difficulty while speaking, odynophagia as well as some nausea. The patient is on empiric antibiotics. Acute abdominal series showed increased basilar markings at this time. The patient is receiving symptomatic treatment. Past medical history reviewed. REVIEW OF SYSTEMS: CARDIOVASCULAR SYSTEM: As mentioned earlier. RESPIRATORY SYSTEM: As mentioned earlier. GI: As mentioned earlier. : No dysuria or retention. NERVOUS SYSTEM: No numbness, weakness. CURRENT MEDICATIONS: Current medications are reviewed and include: 1. Tylenol liquid. 2. Cefepime. 3. Pepcid 20 mg b.i.d. 4. Zarxio 480 mcg daily. 5. Neurontin 600 mg b.i.d. 6. Lopid 600 mg b.i.d. 7. NovoLog. 8. Levemir 12 units with supper. 9. Claritin 10 mg. 10.Narcan. 11.Nitrostat. 12.Protonix. 13.Pravachol. 14.Carafate. 15.Ultram. 16.Ambien. PHYSICAL EXAMINATION: Patient is alert, oriented x3. Pulse 78, blood pressure 131/66, respiration 18, temperature 97.8, pulse ox 97% on room air. HEENT: Conjunctivae normal. Oral mucosa moist. NECK: No jugular venous distention. No carotid bruit. No lymph node enlargement. CARDIOVASCULAR SYSTEM: S1, S2 muffled. No S3. No S4. RESPIRATORY SYSTEM: Breath sounds diminished at the bases. A few scattered rhonchi and crackles. ABDOMEN: Soft, obese, nontender. No mass palpable. LEGS: No edema. No swelling. NERVOUS SYSTEM: Higher functions as mentioned earlier. Moves all 4 limbs. No focal motor or sensory deficit. LYMPHATICS: No lymph node palpable in neck, axillae or groin. SKIN: No ulcer, rash, bleeding. LABS: WBC 1.4, hemoglobin 8.1, sodium 146. ASSESSMENT: 1. Acute neutropenic fever with possible sepsis, on empiric IV antibiotics. 2. Dysphagia, odynophagia secondary to esophageal cancer. 3. Chest discomfort for evaluation. 4. Rule out bibasilar pneumonia. 5. Diabetes mellitus, type 2. 6. Neutropenia, pancytopenia secondary to chemotherapy. 7. Hypertension. 8. Hyperlipidemia. 9. Degenerative joint disease. 10.Hypernatremia. 11.FULL CODE. RECOMMENDATIONS AND DISCUSSION: In this 82-year-old gentleman who presented with multiple complex medical issues , we will monitor the patient closely, continue the current medications, continue with symptomatic treatment. At this time I recommend broad-spectrum IV antibiotics, 2D echo with Doppler, full cardiac workup. Otherwise, the sodium is improving at this time. We will also provide symptomatic treatment. Neutropenia improving at this time; however, overall prognosis is guarded. Further recommendations to follow. MMODL / IJN: [id number] / MTDD
--- NOTE | 2017-09-11 19:55 | P.PN ---
Subjective Progress Note Date: 09/11/17 Pt seen today in followup, he was NPO due to nausea and vomiting during the day , he started clear diet this evening. He is having severe odynophagia, middle of the chest, he had a BM yesterday, feeling very tired. Objective - Vital Signs Vital signs: Vital Signs Temp 97.8 F 09/11/17 15:00 Pulse 79 09/11/17 15:34 Resp 16 09/11/17 15:34 BP 131/66 09/11/17 15:00 Pulse Ox 97 09/11/17 15:00 Intake & Output 09/11/17 09/11/17 09/12/17 06:59 18:59 06:59 Intake Total 450 Balance 450 Intake: Intake, IV Titration 450 Amount Cefepime 1 gm In Sodium 100 Chloride 0.9% 50 ml @ 100 mls/hr IVPB Q8HR [facility] Rx# :[id number] Dextrose 5% in Water 1, 350 000 ml @ 75 mls/hr IV . [id number] [facility] Rx#:[id number] Other: Voiding Method Toilet Toilet # Voids 2 - Constitutional General appearance: Present: cooperative, mild distress, obese - EENT Eyes: Present: anicteric sclerae ENT: Present: pharyngeal erythema - Respiratory Respiratory: bilateral: CTA - Cardiovascular Rhythm: regular Heart sounds: normal: S1, S2 - Peripheral edema leg Peripheral Edema: bilateral: None - Gastrointestinal General gastrointestinal: Present: soft - Integumentary Integumentary: Present: pale - Neurologic Neurologic: Present: CNII-XII intact - Musculoskeletal Musculoskeletal Comment(s): weakness is progressive Musculoskeletal: Present: generalized weakness - Psychiatric Psychiatric: Present: A&O x's 3, appropriate affect, intact judgment & insight - Labs CBC & Chem 7: 09/11/17 07:26 09/11/17 07:26 Labs: Abnormal Lab Results - Last 24 Hours (Table) 09/10/17 09/11/17 09/11/17 Range/Units 20:10 07:26 07:26 WBC 1.4 L* (3.8-10.6) k/uL RBC 2.75 L (4.30-5.90) m/uL Hgb 8.1 L (13.0-17.5) gm/dL Hct 23.7 L (39.0-53.0) % RDW 16.2 H (11.5-15.5) % Plt Count 114 L (150-450) k/uL Neutrophils # (Manual) 0.80 L (1.3-7.7) k/uL Lymphocytes # (Manual) 0.18 L (1.0-4.8) k/uL Metamyelocytes # (Man) 0.01 H (0) k/uL Sodium 146 H (137-145) mmol/L Chloride 115 H (98-107) mmol/L Carbon Dioxide 20 L (22-30) mmol/L Glucose 71 L (74-99) mg/dL POC Glucose (mg/dL) 136 H (75-99) mg/dL Calcium 7.8 L (8.4-10.2) mg/dL 09/11/17 09/11/17 Range/Units 11:45 16:44 WBC (3.8-10.6) k/uL RBC (4.30-5.90) m/uL Hgb (13.0-17.5) gm/dL Hct (39.0-53.0) % RDW (11.5-15.5) % Plt Count (150-450) k/uL Neutrophils # (Manual) (1.3-7.7) k/uL Lymphocytes # (Manual) (1.0-4.8) k/uL Metamyelocytes # (Man) (0) k/uL Sodium (137-145) mmol/L Chloride (98-107) mmol/L Carbon Dioxide (22-30) mmol/L Glucose (74-99) mg/dL POC Glucose (mg/dL) 178 H 176 H (75-99) mg/dL Calcium (8.4-10.2) mg/dL Microbiology - Last 24 Hours (Table) 09/09/17 13:05 Blood Culture - Preliminary Blood No Growth after 48 hours 09/09/17 14:26 Gram Stain - Preliminary Sputum Sputum Culture - Preliminary 09/10/17 10:42 Urine Culture - Final Urine,Clean Catch Assessment and Plan (1) Febrile neutropenia Narrative/Plan: His last fever was yesterday morning 100.7F, none today, he continues on zarxio with improvement in his WBC and his ANC is 800. Current Visit: Yes Status: Acute Priority: High Code(s): D70.9 - NEUTROPENIA, UNSPECIFIED; R50.81 - FEVER PRESENTING WITH CONDITIONS CLASSIFIED ELSEWHERE SNOMED Code(s): 293837217 (2) Pancytopenia due to antineoplastic chemotherapy Narrative/Plan: WBC still low but improved HGB stable, no transfusion platelets are adequate Current Visit: Yes Status: Acute Priority: High Code(s): D61.810 - ANTINEOPLASTIC CHEMOTHERAPY INDUCED PANCYTOPENIA; T45.1X5A - ADVERSE EFFECT OF ANTINEOPLASTIC AND IMMUNOSUP DRUGS, INIT SNOMED Code(s): 477460744774418 (3) Radiation esophagitis Narrative/Plan: Cont on current supportive meds, pt is aware that it will be about 2-3 weeks before recovery. He will cont a modified diet to tolerance Current Visit: Yes Status: Acute Priority: High Code(s): K20.8 - OTHER ESOPHAGITIS SNOMED Code(s): 357170889 (4) Adenocarcinoma of esophagus, stage 3 Narrative/Plan: Pt has completed chemo/radiation. He is due to treatment follow up, appt with Dr. Resendez is in chart. Current Visit: Yes Status: Acute Priority: High Code(s): C15.9 - MALIGNANT NEOPLASM OF ESOPHAGUS, UNSPECIFIED SNOMED Code(s): 322998588
[2017-09-11 20:19] LABS: Glucose,Whole Blood 200 mg/dL (75-99)
[2017-09-11] MEDS: PRAVASTATIN SODIUM 80 MG TAB PO SCH (20:32)
[2017-09-11] MEDS: GABAPENTIN 400 MG CAP PO SCH (20:32)
[2017-09-11] MEDS: ZOLPIDEM 10 MG TAB PO SCH (20:32)
[2017-09-11] MEDS: PANTOPRAZOLE 40 MG/10 ML VIAL IVP SCH (20:34)
[2017-09-12] MEDS: CEFEPIME 1 GM in SODIUM CHLORIDE 0.9% 50 ML IVPB SCH ×3 (00:28→16:35)
[2017-09-12] MEDS: MAG HYDROX/AL HYDROX/SIMETH 30 ML, LIDOCAINE VISCOUS 30 ML, diphenhydrAMINE ELIXIR 75 M... PO SCH ×20 (02:10→20:38)
[2017-09-12] MEDS: traMADol 50 MG TAB PO PRN (03:41)
[2017-09-12 07:01] LABS: HCT 25.7 % (39.0-53.0); HGB 8.8 gm/dL (13.0-17.5); MCH 29.6 pg (25.0-35.0); MCHC 34.5 g/dL (31.0-37.0); MCV 85.8 fL (80.0-100.0); Mean Platelet Volume 8.3; Platelet Count 140 k/uL (150-450); Poikilocytosis Slight; RBC 2.99 m/uL (4.30-5.90); WBC 7.4 k/uL (3.8-10.6)
[2017-09-12 07:22] LABS: Anion Gap 10 mmol/L; Blood Urea Nitrogen 11 mg/dL (9-20); Calcium 8.2 mg/dL (8.4-10.2); Carbon Dioxide 21 mmol/L (22-30); Chloride 112 mmol/L (98-107); Glucose 144 mg/dL (74-99); Potassium 4.3 mmol/L (3.5-5.1); Sodium 143 mmol/L (137-145)
[2017-09-12 07:32] LABS: Glucose,Whole Blood 141 mg/dL (75-99)
[2017-09-12 07:56] LABS: Band Neutrophils % 5 %; Lymphocytes # (M) 0.52 k/uL (1.0-4.8); Metamyelocytes # (M) 0.22 k/uL (0); Metamyelocytes % 3 %; Monocytes # (M) 1.18 k/uL (0-1.0); Myelocytes # (M) 0.07 k/uL (0); Myelocytes % 1 %; Neutrophils % (M) 69 %; Nucleated Red Blood Cells 0 /100 WBC (0-0); Promyelocytes # (M) 0.07 k/uL (0); Promyelocytes % 1 %; Total Cells Counted 200
[2017-09-12 07:57] LABS: Poikilocytosis (M) Present; Polychromasia Present
[2017-09-12] MEDS: INSULIN ASPART 100 UNIT/ML 1 ML 10 ML VIAL SQ SCH ×4 (08:02→20:41)
[2017-09-12] MEDS: GEMFIBROZIL 600 MG TAB PO SCH ×2 (08:03→19:07)
[2017-09-12] MEDS: SUCRALFATE 1 GM TAB PO SCH ×4 (08:03→20:41)
[2017-09-12] MEDS: GABAPENTIN 300 MG CAP PO SCH ×2 (08:03→19:07)
[2017-09-12] MEDS: PANTOPRAZOLE 40 MG/10 ML VIAL IVP SCH ×2 (08:03→20:41)
[2017-09-12] MEDS: FAMOTIDINE 20 MG TAB PO SCH ×2 (08:03→21:32)
[2017-09-12] MEDS: POTASSIUM CHLORIDE ER 10 MEQ TAB.ER.PRT PO SCH (08:04)
[2017-09-12] MEDS: METOPROLOL TARTRATE 25 MG TAB PO SCH (08:04)
[2017-09-12] MEDS: INSULIN DETEMIR 100 UNIT/ML 10 ML VIAL SQ SCH ×2 (08:05→16:34)
[2017-09-12] MEDS: FILGRASTIM-SNDZ 480 MCG/0.8 ML SYRINGE SQ SCH (09:22)
[2017-09-12] MEDS: ACET/COD 240MG/24MG LIQ 10 ML SYRG PO PRN ×2 (09:22→18:02)
[2017-09-12] MEDS: DEXTROSE 5% IN WATER 1,000 ML IV SCH (11:00)
[2017-09-12 12:36] LABS: Glucose,Whole Blood 211 mg/dL (75-99)
--- NOTE | 2017-09-12 14:50 | ECHOF ---
Referral Reason:chest discomfort MEASUREMENTS -------- HEIGHT: 170.2 cm WEIGHT: 83.5 kg BP: 131/66 RVIDd: 3.5 cm (< 3.3) IVSd: 1.3 cm (0.6 - 1.1) LVIDd: 5.1 cm (3.9 - 5.3) LVPWd: 1.3 cm (0.6 - 1.1) IVSs: 1.6 cm LVIDs: 2.5 cm LVPWs: 1.7 cm LAESV Index (A-L): 37.23 ml/m Ao Diam: 3.4 cm (2.0 - 3.7) AV Cusp: 1.6 cm (1.5 - 2.6) LA Diam: 4.7 cm (2.7 - 3.8) EPSS: 0.9 cm MV E Pietro: 1.04 m/s MV DecT: 332 ms MV A Pietro: 1.34 m/s MV E/A Ratio: 0.77 AV maxP.21 mmHg AV meanP.19 mmHg AR PHT: 447 ms RAP: 5.00 mmHg RVSP: 40.86 mmHg MV EF SLOPE: 100.04 mm/s (70 - 150) MV EXCURSION: 1.56 cm (> 18.000) FINDINGS -------- Sinus rhythm. This was a technically adequate study. The left ventricular size is normal. There is mild concentric left ventricular hypertrophy. Overa ll left ventricular systolic function is normal with, an EF between 55 - 60 %. The right ventricle is mildly enlarged. LA is moderately dilated 34-39 ml/m2 RA appears enlarged. Aortic valve is trileaflet and is moderately thickened. There is [id number] aortic regurgitat ion. There is mild aortic stenosis present. Peak/mean gradient across the Aortic Valve is 22.21mm Hg / 12.19mmHg. The mitral valve leaflets are mildly thickened. Mild mitral regurgitation is present. Mild tricuspid regurgitation present. There is mild pulmonary hypertension. The right ventricular systolic pressure, as measured by Doppler, is 40.86mmHg. The pulmonic valve was not well visualized. The aortic root size is normal. Normal inferior vena cava with normal inspiratory collapse consistent with estimated right atrial pre ssure of 5 mmHg. There is no pericardial effusion. CONCLUSIONS -------- 1. Sinus rhythm. 2. This was a technically adequate study. 3. The left ventricular size is normal. 4. There is mild concentric left ventricular hypertrophy. 5. Overall left ventricular systolic function is normal with, an EF between 55 - 60 %. 6. The right ventricle is mildly enlarged. 7. LA is moderately dilated 34-39 ml/m2 8. RA appears enlarged. 9. Aortic valve is trileaflet and is moderately thickened. 10. There is oknq-bg-urhyyjga aortic regurgitation. 11. There is mild aortic stenosis present. 12. Peak/mean gradient across the Aortic Valve is 22.21mmHg / 12.19mmHg. 13. The mitral valve leaflets are mildly thickened. 14. Mild mitral regurgitation is present. 15. Mild tricuspid regurgitation present. 16. There is mild pulmonary hypertension. 17. The right ventricular systolic pressure, as measured by Doppler, is 40.86mmHg. 18. The pulmonic valve was not well visualized. 19. The aortic root size is normal. 20. There is no pericardial effusion. STEEL SASH ERECTOR: Gabriel Brooks RDCS
--- NOTE | 2017-09-12 16:14 | PN ---
PROGRESS NOTE DATE OF SERVICE: September 12, 2017. CHIEF COMPLAINT: Sore throat. Drew is seen today as a followup. He continues to have some dysphagia and a hard time swallowing and feels tired. He had a low-grade fever earlier today. No nausea or vomiting. His bowel is working fine. No melena, hematuria or hemoptysis. CURRENT MEDICATION: Include Tylenol with codeine 15 mL b.i.d. as needed, cool solution as needed, cefepime 1 g IV q.8 hours as needed, Pepcid 20 mg b.i.d., Zarxio 480 mcg subcu daily, Neurontin 600 mg in the morning and 1200 mg at bedtime, Lopid 600 mg daily. He is insulin sliding scale. NovoLog sliding scale. Levemir 12 units subcu at night and in a 25 units subcu in the morning. Claritin 10 mg daily, metoprolol 25 mg daily. Nitrostat as needed, Zofran 4 mg IV as needed, Protonix 40 mg IV b.i.d., Pravachol 80 mg daily. Tramadol 50 mg q.i.d., Ambien 10 mg q.h.s. PHYSICAL EXAMINATION: He is alert, oriented x3. He does not appear to be in distress at this time. VITAL SIGNS: Temperature 97.8, pulse 81 and regular, respirations 16, blood pressure 150/68. HEENT: Normocephalic, atraumatic. Oral mucosa are red without an obvious ulceration. NECK: Supple. No jugular venous distention. Chest equal expansion bilaterally. LUNGS: Clear to auscultation. Heart is regular rhythm. ABDOMEN: Soft. No tenderness. Extremities reveal no edema. Skin no significant bruises or petechiae. Lymphatics: No lymphadenopathy in cervical supraclavicular node. LABORATORY DATA: WBC of 7.4, hemoglobin 8.8, hematocrit 25.7, platelets 140. Sodium 143, potassium 4.3, chloride 112, BUN is 10. Creatinine 0.82. IMPRESSION: 1. Febrile neutropenia. The patient is clinically stable at this point in time, and his cultures have been negative so far and his neutrophils have recovered. 2. Pancytopenia, chemotherapy-induced myelosuppression. This has been improving and his neutrophils recovered. 3. Radiation esophagitis. 4. Carcinoma of the distal esophagus, status post definitive chemoradiation therapy. RECOMMENDATION: 1. Would discontinue granulocyte colony-stimulating factor. 2. Continue with IV hydration. 3. Continue local care for his radiation esophagitis. 4. DVT prophylaxis. 5. If the patient remains afebrile over the next 24 hours, may discontinue cefepime. 6. Once his oral intake improves, he could be discharged home and will follow up in the outpatient setting. MMODL / IJN: [id number] /
[2017-09-12] MEDS: ONDANSETRON 4 MG/2 ML VIAL IVP PRN (16:35)
[2017-09-12 16:42] LABS: Glucose,Whole Blood 97 mg/dL (75-99)
--- NOTE | 2017-09-12 17:05 | PN ---
PROGRESS NOTE DATE OF SERVICE: 09/12/2017. INTERVAL HISTORY: This 82-year-old gentleman who was admitted with neutropenic fever, is improving significantly. Patient has some odynophagia today. No chest pain. No palpitations. No fever. EXAM: Alert and oriented x3. Pulse is 69, blood pressure 110/58, respiration 18, temperature 97.2, pulse ox 98% on room air. HEENT: Conjunctivae normal. NECK: No jugular venous distention. Cardiovascular: S1, S2 muffled. Respirations: Breath sounds diminished in the bases. A few scattered rhonchi and crackles. Abdomen is soft, nontender. Legs are no edema. No swelling. Central nervous system: No focal deficits. LABS: WBC ntd hemoglobin is 8.8, glucose 144. ASSESSMENT: 1. Acute neutropenic fever with possible sepsis on empiric IV antibiotics. 2. Dysphagia, odynophagia secondary to esophageal cancer. 3. Chest discomfort for evaluation. 4. Rule out bibasilar pneumonia. 5. Diabetes type 2. 6. Neutropenia, pancytopenia secondary to chemotherapy. 7. Hypertension. 8. Hyperlipidemia. 9. History of degenerative joint disease. 10.Hypernatremia, improved. 11.FULL CODE. RECOMMENDATIONS AND DISCUSSION: To continue current medications, management. Symptomatic treatment. Otherwise at this time, we will monitor the patient closely. I would stop the IV fluids and continue modified diet as tolerated. Further recommendations to follow. NAE / CIRO: [id number] / MTDD
[2017-09-12 20:36] LABS: Glucose,Whole Blood 155 mg/dL (75-99)
[2017-09-12] MEDS: PRAVASTATIN SODIUM 80 MG TAB PO SCH (20:41)
[2017-09-12] MEDS: ZOLPIDEM 10 MG TAB PO SCH (20:41)
[2017-09-12] MEDS: GABAPENTIN 400 MG CAP PO SCH (20:42)
[2017-09-12] MEDS ORDERED: LORazepam 2 MG/ML INJ IV PRN ×2 (22:58)
[2017-09-12] MEDS ORDERED: HALOPERIDOL LACTATE 5 MG/ML 1 ML VIAL IM PRN (22:59)
[2017-09-13 00:04] LABS: Glucose,Whole Blood 139 mg/dL (75-99)
[2017-09-13] MEDS: MAG HYDROX/AL HYDROX/SIMETH 30 ML, LIDOCAINE VISCOUS 30 ML, diphenhydrAMINE ELIXIR 75 M... PO SCH ×20 (01:26→20:54)
[2017-09-13] MEDS: CEFEPIME 1 GM in SODIUM CHLORIDE 0.9% 50 ML IVPB SCH ×4 (01:52→23:27)
[2017-09-13 07:29] LABS: Anion Gap 10 mmol/L; Blood Urea Nitrogen 11 mg/dL (9-20); Calcium 8.3 mg/dL (8.4-10.2); Carbon Dioxide 19 mmol/L (22-30); Chloride 112 mmol/L (98-107); Glucose 133 mg/dL (74-99); Potassium 3.9 mmol/L (3.5-5.1); Sodium 141 mmol/L (137-145)
[2017-09-13 07:30] LABS: Anisocytosis Slight; HCT 24.4 % (39.0-53.0); HGB 8.3 gm/dL (13.0-17.5); MCH 29.2 pg (25.0-35.0); MCV 85.8 fL (80.0-100.0); Platelet Count 142 k/uL (150-450); Poikilocytosis Slight; RBC 2.84 m/uL (4.30-5.90); RDW 16.3 % (11.5-15.5)
[2017-09-13 07:52] LABS: Band Neutrophils % 9 %; Metamyelocytes % 3 %; Myelocytes % 1 %; Neutrophils % (M) 72 %; Nucleated Red Blood Cells 4 /100 WBC (0-0); Total Cells Counted 200
[2017-09-13 07:53] LABS: Lymphocytes # (M) 0.46 k/uL (1.0-4.8); Metamyelocytes # (M) 0.46 k/uL (0); Monocytes # (M) 2.16 k/uL (0-1.0); Myelocytes # (M) 0.15 k/uL (0); Polychromasia Present; Toxic Granulation Present; WBC 15.4 k/uL (3.8-10.6)
[2017-09-13 08:15] LABS: Glucose,Whole Blood 162 mg/dL (75-99)
[2017-09-13 08:20] VITALS: RESP 16
[2017-09-13] MEDS: POTASSIUM CHLORIDE ER 10 MEQ TAB.ER.PRT PO SCH (08:48)
[2017-09-13] MEDS: SUCRALFATE 1 GM TAB PO SCH ×4 (08:48→23:21)
[2017-09-13] MEDS: METOPROLOL TARTRATE 25 MG TAB PO SCH (08:48)
[2017-09-13] MEDS: GEMFIBROZIL 600 MG TAB PO SCH ×2 (08:48→17:37)
[2017-09-13] MEDS: INSULIN ASPART 100 UNIT/ML 1 ML 10 ML VIAL SQ SCH ×4 (08:48→20:56)
[2017-09-13] MEDS: FAMOTIDINE 20 MG TAB PO SCH ×2 (08:48→20:55)
[2017-09-13] MEDS: GABAPENTIN 300 MG CAP PO SCH ×2 (08:49→17:37)
[2017-09-13] MEDS: ENOXAPARIN 40 MG/0.4 ML SYRINGE SQ SCH (08:49)
[2017-09-13] MEDS: INSULIN DETEMIR 100 UNIT/ML 10 ML VIAL SQ SCH ×2 (08:49→18:28)
[2017-09-13] MEDS: PANTOPRAZOLE 40 MG/10 ML VIAL IVP SCH ×2 (08:55→23:21)
--- NOTE | 2017-09-13 10:18 | CT ---
EXAMINATION TYPE: CT brain wo con DATE OF EXAM: 09/13/2017 COMPARISON: NONE HISTORY: Patient has no complaints at time of study. Altered mental status. CT DLP: 1121 mGycm Automated exposure control for dose reduction was used. FINDINGS: There are generalized changes of sulcal prominence and ventriculomegaly, compatible with atrophic jassi nge. There is patchy white matter lucency in the periventricular region compatible with small vessel ischemic change. There is no acute mass effect, midline shift or intracranial blood. There is vascula r calcification. The orbits are normal. There have been previous Coldwell Raj procedures bilaterally. There continues to be mucoperiosteal th ickening involving both maxillary antra worse on the right than the left as well as the residual ethm oid sinuses. The mastoids are clear. The bony calvarium is intact. IMPRESSION: 1. NO ACUTE INTRACRANIAL ABNORMALITY. 2. ATROPHIC CHANGE. 3. CHRONIC WHITE MATTER ISCHEMIC CHANGE. 4. CHRONIC SINUS MUCOSAL DISEASE WELL PREVIOUS SINUS SURGERY.
--- NOTE | 2017-09-13 11:17 | P.PN ---
Subjective Progress Note Date: 09/13/17 Principal diagnosis: Neutropenic fever This 82-year-old male patient who presented to the hospital with neutropenic fever. The patient has been afebrile overnight. His telemetry BC count is up to 15 secondary to administration of Zarxio. The patient had some confusion last night with combativeness. It took several people to control him last night and he received Haldol which was effective. This morning he is alert and oriented. Almost back to baseline. He is seen with family members at the bedside. We will obtain a CAT scan of the head this morning. I will review his medications make adjustments appropriately. Objective - Vital Signs Vital signs: Vital Signs Temp 97.8 F 09/13/17 07:00 Pulse 80 09/13/17 08:00 Resp 16 09/13/17 08:00 BP 158/76 09/13/17 07:00 Pulse Ox 98 09/13/17 07:00 Intake & Output 09/12/17 09/13/17 09/13/17 18:59 06:59 18:59 Intake Total 540 525 Balance 540 525 Intake: Intake, IV Titration 300 525 Amount Dextrose 5% in Water 1, 300 525 000 ml @ 75 mls/hr IV . [id number] MELVA Rx#:[id number] Oral 240 Other: Voiding Method Toilet Toilet Toilet # Voids 1 - Constitutional General appearance: Present: cooperative - EENT Eyes: Present: normal appearance Ears: bilateral: normal - Neck Neck: Present: normal ROM - Respiratory Respiratory: bilateral: CTA - Cardiovascular Rhythm: regular Heart sounds: normal: S1, S2 - Gastrointestinal General gastrointestinal: Present: hyperactive bowel sounds - Integumentary Integumentary: Present: pale - Neurologic Neurologic: Present: CNII-XII intact - Musculoskeletal Musculoskeletal: Present: generalized weakness - Psychiatric Psychiatric: Present: A&O x's 3 - Labs CBC & Chem 7: 09/13/17 06:59 09/13/17 06:59 Labs: Abnormal Lab Results - Last 24 Hours (Table) 09/12/17 09/12/17 09/13/17 Range/Units 12:15 20:34 00:01 WBC (3.8-10.6) k/uL RBC (4.30-5.90) m/uL Hgb (13.0-17.5) gm/dL Hct (39.0-53.0) % RDW (11.5-15.5) % Plt Count (150-450) k/uL Neutrophils # (Manual) (1.3-7.7) k/uL Lymphocytes # (Manual) (1.0-4.8) k/uL Monocytes # (Manual) (0-1.0) k/uL Metamyelocytes # (Man) (0) k/uL Myelocytes # (Manual) (0) k/uL Nucleated RBCs (0-0) /100 WBC Chloride (98-107) mmol/L Carbon Dioxide (22-30) mmol/L Glucose (74-99) mg/dL POC Glucose (mg/dL) 211 H 155 H 139 H (75-99) mg/dL Calcium (8.4-10.2) mg/dL 09/13/17 09/13/17 09/13/17 Range/Units 06:59 06:59 08:11 WBC 15.4 H (3.8-10.6) k/uL RBC 2.84 L (4.30-5.90) m/uL Hgb 8.3 L (13.0-17.5) gm/dL Hct 24.4 L (39.0-53.0) % RDW 16.3 H (11.5-15.5) % Plt Count 142 L (150-450) k/uL Neutrophils # (Manual) 12.40 H (1.3-7.7) k/uL Lymphocytes # (Manual) 0.46 L (1.0-4.8) k/uL Monocytes # (Manual) 2.16 H (0-1.0) k/uL Metamyelocytes # (Man) 0.46 H (0) k/uL Myelocytes # (Manual) 0.15 H (0) k/uL Nucleated RBCs 4 H (0-0) /100 WBC Chloride 112 H (98-107) mmol/L Carbon Dioxide 19 L (22-30) mmol/L Glucose 133 H (74-99) mg/dL POC Glucose (mg/dL) 162 H (75-99) mg/dL Calcium 8.3 L (8.4-10.2) mg/dL Microbiology - Last 24 Hours (Table) 09/09/17 13:05 Blood Culture - Preliminary Blood No Growth after 72 hours 09/09/17 13:05 Group A Strep Throat Culture - Final Throat 09/09/17 14:26 Gram Stain - Final Sputum Sputum Culture - Final - Imaging and Cardiology CT Scan - head: report reviewed Assessment and Plan Assessment: Acute neutropenic fever with possible sepsis Dysphagia secondary to esophageal malignancy Delirium multifactorial, due to pain medication and sleep aid Diabetes type 2 Pancytopenia secondary to chemotherapy status post Zarxio Hypertension Hyperlipidemia DJD Hypernatremia improved Plan: Obtain CAT scan of the brain due to confusion last night Stop Ambien, may have melatonin for sleep Continue current medication except for the above changes and continue to follow him closely. Continue modified diet as tolerated. Oncology is following him as well. He is not taking much oral nutrition.
[2017-09-13 12:07] LABS: Glucose,Whole Blood 160 mg/dL (75-99)
[2017-09-13 17:37] LABS: Glucose,Whole Blood 191 mg/dL (75-99)
[2017-09-13 19:50] LABS: Glucose,Whole Blood 190 mg/dL (75-99)
[2017-09-13] MEDS: GABAPENTIN 400 MG CAP PO SCH (20:55)
[2017-09-13] MEDS ORDERED: MELATONIN 3 MG TABLET PO SCH (21:00)
[2017-09-13] MEDS: PRAVASTATIN SODIUM 80 MG TAB PO SCH (23:21)
[2017-09-14] MEDS: MAG HYDROX/AL HYDROX/SIMETH 30 ML, LIDOCAINE VISCOUS 30 ML, diphenhydrAMINE ELIXIR 75 M... PO SCH ×12 (00:26→11:37)
[2017-09-14] MEDS: CEFEPIME 1 GM in SODIUM CHLORIDE 0.9% 50 ML IVPB SCH (07:15)
[2017-09-14] MEDS: PANTOPRAZOLE 40 MG/10 ML VIAL IVP SCH (07:16)
[2017-09-14 07:19] LABS: Glucose,Whole Blood 108 mg/dL (75-99)
[2017-09-14] MEDS: ENOXAPARIN 40 MG/0.4 ML SYRINGE SQ SCH (07:19)
[2017-09-14] MEDS: GABAPENTIN 300 MG CAP PO SCH (07:20)
[2017-09-14] MEDS: GEMFIBROZIL 600 MG TAB PO SCH (07:20)
[2017-09-14] MEDS: FAMOTIDINE 20 MG TAB PO SCH (07:20)
[2017-09-14] MEDS: POTASSIUM CHLORIDE ER 10 MEQ TAB.ER.PRT PO SCH (07:20)
[2017-09-14] MEDS: SUCRALFATE 1 GM TAB PO SCH ×2 (07:20→11:37)
[2017-09-14] MEDS: METOPROLOL TARTRATE 25 MG TAB PO SCH (07:20)
[2017-09-14] MEDS: INSULIN ASPART 100 UNIT/ML 1 ML 10 ML VIAL SQ SCH ×2 (07:24→11:37)
[2017-09-14 07:30] VITALS: PULSE 68
[2017-09-14 07:33] LABS: Anion Gap 9 mmol/L; Blood Urea Nitrogen 9 mg/dL (9-20); Calcium 8.3 mg/dL (8.4-10.2); Carbon Dioxide 22 mmol/L (22-30); Chloride 112 mmol/L (98-107); Glucose 112 mg/dL (74-99); Potassium 4.4 mmol/L (3.5-5.1); Sodium 143 mmol/L (137-145)
[2017-09-14 07:44] LABS: Anisocytosis Slight; HGB 8.3 gm/dL (13.0-17.5); MCH 29.5 pg (25.0-35.0); MCHC 34.4 g/dL (31.0-37.0); MCV 85.6 fL (80.0-100.0); Mean Platelet Volume 8.3; Platelet Count 159 k/uL (150-450); Poikilocytosis Slight; RBC 2.81 m/uL (4.30-5.90); WBC 13.2 k/uL (3.8-10.6)
[2017-09-14 08:23] VITALS: BP 146/76; TEMP 97.7
[2017-09-14 08:55] LABS: Band Neutrophils % 8 %; Eosinophils # (M) 0.13 k/uL (0-0.7); Lymphocytes # (M) 0.26 k/uL (1.0-4.8); Metamyelocytes # (M) 0.13 k/uL (0); Metamyelocytes % 1 %; Monocytes # (M) 1.32 k/uL (0-1.0); Myelocytes # (M) 0.26 k/uL (0); Myelocytes % 2 %; Neutrophils % (M) 78 %; Nucleated Red Blood Cells 0 /100 WBC (0-0); Total Cells Counted 200
[2017-09-14 08:56] LABS: Polychromasia Present; Toxic Granulation Present
[2017-09-14] MEDS: INSULIN DETEMIR 100 UNIT/ML 10 ML VIAL SQ SCH (09:01)
--- NOTE | 2017-09-15 13:54 | CDI ---
Documentation Clarification Form Date: 09/15/2017 12:00:00 AM From: TERRANCE Hoffman; [employer] Phone: If you have a question about this query, please contact [employer] at [phone] between 8am and 5pm. Admit Date: 09/09/2017 3:57:00 PM Patient Name: Drew Bradford Visit Number: [id number] Discharge Date: 09/14/17 ATTENTION: The Clinical Documentation Specialists (CDI) and [facility] Coding Staff appreciate your assistance in clarifying documentation. Please respond to the clarification below the line at the bottom and electronically sign. The CDI & [facility] Coding staff will review the response and follow-up if needed. Please note: Queries are made part of the Legal Health Record. If you have any questions, please contact the author of this message via ITS. Dr. Thomas Quinn Acute neutropenic fever with possible sepsis is documented in the record. Patient history/risk factors: Pancytopenia due to chemotherapy. Esophageal CA. Clinical Indicators: ED: Temp 101, pulse 100, resp 18, BP 108/56. Treatment: IV antiobiotics. In your professional opinion, can you please clarify ? Sepsis ruled in Sepsis ruled out Other, please specify Unable to determine Sepsis ruled in MTDD
== END 2017-09-14 12:17 | disposition home or self-care (01) | DRG 871 ==
LOC: EC 11:45 → 5MS5E 15:57 → 5ONC 16:06
PROVIDERS: ADMIT Internal Medicine; ATTEND Internal Medicine
DX: A41.89 Other specified sepsis (principal); D61.810 Antineoplastic chemotherapy induced pancytopenia; E87.0 Hyperosmolality and hypernatremia; C15.5 Malignant neoplasm of lower third of esophagus; E86.0 Dehydration; F05 Delirium due to known physiological condition; Z78.1 Physical restraint status; E11.9 Type 2 diabetes mellitus without complications; E66.9 Obesity, unspecified; E78.5 Hyperlipidemia, unspecified; I10 Essential (primary) hypertension; K12.30 Oral mucositis (ulcerative), unspecified; M19.90 Unspecified osteoarthritis, unspecified site; K20.8 Other esophagitis; T42.6X5A Adverse effect of other antiepileptic and sedative-hypnotic drugs, initial encounter; K21.9 Gastro-esophageal reflux disease without esophagitis; T50.905A Adverse effect of unspecified drugs, medicaments and biological substances, initial encounter; T45.1X5A Adverse effect of antineoplastic and immunosuppressive drugs, initial encounter; Y84.2 Radiological procedure and radiotherapy as the cause of abnormal reaction of the patient, or of later complication, without mention of misadventure at the time of the procedure; Z79.4 Long term (current) use of insulin; Z79.82 Long term (current) use of aspirin; Z79.899 Other long term (current) drug therapy; Z82.49 Family history of ischemic heart disease and other diseases of the circulatory system; Z87.11 Personal history of peptic ulcer disease; Z87.442 Personal history of urinary calculi; Z92.3 Personal history of irradiation; Z79.891 Long term (current) use of opiate analgesic; Z91.040 Latex allergy status; Z88.0 Allergy status to penicillin; Z98.42 Cataract extraction status, left eye; Z98.41 Cataract extraction status, right eye; Z96.1 Presence of intraocular lens; Z80.9 Family history of malignant neoplasm, unspecified; Z68.28 Body mass index [BMI] 28.0-28.9, adult
CPT/HCPCS: 36415; 70450; 71046; 74022; 80048; 80053; 81001; 83036; 83605; 84484; 85025; 85027; 87040; 87070; 87081; 87086; 87205; 87430; 87502; 93005; 93306; 96361; 96365; 96375; 99285

== ENCOUNTER 2017-09-24 09:55 | Emergency (ER) | payer MEDICARE ==
[2017-09-24 10:10] VITALS: TEMP 97.8
[2017-09-24] MEDS ORDERED: SODIUM CHLORIDE 0.9% 1,000 ML IV STA (10:41)
[2017-09-24] MEDS ORDERED: SODIUM CHLORIDE 0.9% 500 ML IV STA (10:41)
--- NOTE | 2017-09-24 11:10 | ED ---
Weakness HPI - General Chief complaint: Weakness Stated complaint: Dehydration Time Seen by Provider: 09/24/17 10:26 Source: patient, family Mode of arrival: wheelchair Limitations: no limitations - History of Present Illness Initial comments: This 82-year-old white male presents with with a complaint of weakness. She states that he does have a history of esophageal cancer which was treated with radiation therapy and chemotherapy for the end of August. He was then hospitalized for bacteremia and neutropenia at the beginning of this month. He is had progressively increasing weakness since he has been home. It is to the point where he is having a difficult time ambulating due to the weakness. He states that it feels like his legs are too weak to walk at times and he feels unsteady with ambulation. He denies any localized weakness. There is no fevers or chills. He states that he has a slight cough with whitish production which was expected after receiving radiation therapy to his esophagus. He denies any shortness of breath or chest pain. There is no abdominal pain vomiting or diarrhea. He denies any blood in his stool or black tarry stools. He still has been able to intake his protein shakes as well as fluids and did tolerate some mild food yesterday. No other complaints or modifying factors. - Related Data Home Medications Medication Instructions Recorded Confirmed Cetirizine HCl 10 mg PO DAILY PRN 07/05/15 09/24/17 Nitroglycerin Sl Tabs [Nitrostat] 0.4 mg SUBLINGUAL Q5M PRN 07/05/15 09/24/17 Omeprazole [PriLOSEC] 40 mg PO BID 07/05/15 09/24/17 Gabapentin [Neurontin] 600 mg PO QAM 04/24/17 09/24/17 Metoprolol Tartrate [Lopressor] 25 mg PO DAILY 09/01/17 09/24/17 Pravastatin Sodium [Pravachol] 80 mg PO HS 09/01/17 09/24/17 Gabapentin [Neurontin] 1,200 mg PO BID@1200,2100 09/09/17 09/24/17 Allopurinol [Zyloprim] 100 mg PO DAILY 09/24/17 09/24/17 Insulin Glargine,Hum.rec.anlog 20 unit SQ PC-SUPPER 09/24/17 09/24/17 [Lantus Solostar] Insulin Glargine,Hum.rec.anlog 40 units SQ QAM 09/24/17 09/24/17 [Lantus Solostar] Insulin Lispro [humaLOG Kwikpen] See Protocol SQ AC-TID 09/24/17 09/24/17 Potassium Chloride ER [K-Dur 10] 10 meq PO DAILY 09/24/17 09/24/17 Spironolactone [Aldactone] 12.5 mg PO DAILY 09/24/17 09/24/17 Torsemide [Demadex] 50 mg PO DAILY 09/24/17 09/24/17 Zolpidem [Ambien] 10 mg PO HS PRN 09/24/17 09/24/17 metFORMIN HCL [Glucophage] 1,000 mg PO BID 09/24/17 09/24/17 Allergies Allergy/AdvReac Type Severity Reaction Status Date / Time latex Allergy Itching Verified 09/24/17 10:33 penicillin G Allergy Rash/Hives Verified 09/24/17 10:33 Review of Systems ROS Statement: Those systems with pertinent positive or pertinent negative responses have been documented in the HPI. ROS Other: All systems not noted in ROS Statement are negative. Past Medical History Past Medical History: Cancer, Diabetes Mellitus, GERD/Reflux, Hyperlipidemia, Hypertension, Osteoarthritis (OA), Pneumonia Additional Past Medical History / Comment(s): gout, CARDOSO'S esophagus, Esaphageal cancer-completed the last of 28 tx on and has had so far 5 chemo tx last on was last thu09/02/17. pt's stated his weight has gone down from 201 to 183 over 6 weeks. has been drinking vanillia premier protein shakes daily am.hiatal hernia, kidney stones 40 years ago,pne 20 years ago, neuropathy, past stomach ulcers,"lt carotid 100% blkg, shingelles History of Any Multi-Drug Resistant Organisms: None Reported Past Surgical History: Appendectomy, Orthopedic Surgery Additional Past Surgical History / Comment(s): LILA shoulder rotator CUFF, ORIF LT FOOT thinks he has plate and screws, "esophagus radiofrequency ablation", lila cataracts-lens implants Past Anesthesia/Blood Transfusion Reactions: No Reported Reaction Additional Past Anesthesia/Blood Transfusion Reaction / Comment(s): . Past Psychological History: No Psychological Hx Reported Smoking Status: Never smoker Past Alcohol Use History: Occasional Past Drug Use History: None Reported - Past Family History Mother Family Medical History: Cancer Additional Family Medical History / Comment(s): . Father Family Medical History: Coronary Artery Disease (CAD) Additional Family Medical History / Comment(s): AT AGE 53 General Exam - General Exam Comments Initial Comments: GENERAL: The patient is well nourished and well hydrated. VITAL SIGNS: Heart rate, blood pressure, respiratory rate reviewed as recorded in nurse's notes. EYES: Pupils are round and reactive. Extraocular movements are intact. No conjunctival / lid redness or swelling. ENT: No external evidence of injury, swelling, or ecchymosis. Airway is patent. Throat is clear. NECK: Nontender. No swelling or evidence of injury. No subcutaneous emphysema. Trachea is midline. No thyroid mass. HEART: Regular rate and rhythm. Good peripheral pulses. LUNGS/CHEST: Breath sounds clear and equal bilaterally. No rales, rhonchi, or wheezes. No ecchymosis, subcutaneous emphysema, or tenderness. ABDOMEN: Abdomen soft without tenderness. No palpable masses or organomegaly. No peritoneal signs. No abdominal wall swelling or ecchymosis. EXTREMITIES: No extremity tenderness. Normal muscle tone and function. No thoracolumbar tenderness. NEUROLOGIC: Sensation is grossly intact. Cranial nerve exam reveals face is symmetrical, tongue is midline, speech is clear. SKIN: No abrasions or ecchymosis is noted. No induration or masses noted. PSYCHIATRIC: Alert and oriented. Appropriate behavior and judgment. Limitations: no limitations Course Vital Signs 09/24/17 09/24/17 10:07 11:49 Temperature 97.8 F Pulse Rate 84 72 Respiratory 20 16 Rate Blood Pressure 97/58 107/60 O2 Sat by Pulse 100 99 Oximetry Medical Decision Making - Medical Decision Making The patient was seen and examined. All diagnostics were reviewed. The patient did have an EKG which shows a normal sinus rhythm at a rate of [address] -T wave changes. The ER intervals 172, QRS duration is 88, and the QTc interval is 459. The laboratory analysis is reviewed. He is mildly anemic at 10.0 but this is improved as compared to previous. The white blood cell count is normal. There is no evidence of infections. The blood sugar is slightly elevated but it is a nonfasting blood sugar. The old records are reviewed. The chest x-ray does not show any acute process per radiology. The exact cause of his weakness is not definitively determined. This felt that it likely could be related to him having esophageal cancer and worsening of this condition. It also may be late effects of recent chemotherapy and radiation therapy. He was offered admission to the hospital but would prefer to be discharged home. He does have a walker at home and has not been utilizing it as of yet. He is instructed to utilize the walker. Return parameters were discussed and ultimately detail with the patient and his . - Lab Data Result diagrams: 09/24/17 10:30 09/24/17 10:30 Lab Results 09/24/17 09/24/17 09/24/17 Range/Units 10:30 10:30 10:30 WBC 7.5 (3.8-10.6) k/uL RBC 3.54 L (4.30-5.90) m/uL Hgb 10.0 L D (13.0-17.5) gm/dL Hct 31.1 L (39.0-53.0) % MCV 87.8 (80.0-100.0) fL MCH 28.2 (25.0-35.0) pg MCHC 32.2 (31.0-37.0) g/dL RDW 17.9 H (11.5-15.5) % Plt Count 318 (150-450) k/uL Neutrophils % 81 % Lymphocytes % 6 % Monocytes % 9 % Eosinophils % 1 % Basophils % 0 % Neutrophils # 6.1 (1.3-7.7) k/uL Lymphocytes # 0.5 L (1.0-4.8) k/uL Monocytes # 0.7 (0-1.0) k/uL Eosinophils # 0.1 (0-0.7) k/uL Basophils # 0.0 (0-0.2) k/uL Hypochromasia Moderate Poikilocytosis Moderate Anisocytosis Slight PT (9.0-12.0) sec INR (<1.2) APTT (22.0-30.0) sec Sodium 142 (137-145) mmol/L Potassium 3.9 (3.5-5.1) mmol/L Chloride 98 (98-107) mmol/L Carbon Dioxide 26 (22-30) mmol/L Anion Gap 18 mmol/L BUN 35 H (9-20) mg/dL Creatinine 1.21 (0.66-1.25) mg/dL Est GFR (CKD-EPI)AfAm 65 (>60 ml/min/1.73 sqM) Est GFR (CKD-EPI)NonAf 56 (>60 ml/min/1.73 sqM) Glucose 219 H (74-99) mg/dL Calcium 9.2 (8.4-10.2) mg/dL Phosphorus 3.0 (2.5-4.5) mg/dL Magnesium 1.9 (1.6-2.3) mg/dL Total Bilirubin 0.7 (0.2-1.3) mg/dL AST 39 (17-59) U/L ALT 50 (21-72) U/L Alkaline Phosphatase 76 (38-126) U/L Total Creatine Kinase 46 L (55-170) U/L CK-MB (CK-2) 0.4 (0.0-2.4) ng/mL CK-MB (CK-2) Rel Index 0.9 Troponin I <0.012 (0.000-0.034) ng/mL Total Protein 6.9 (6.3-8.2) g/dL Albumin 3.7 (3.5-5.0) g/dL TSH 1.080 (0.465-4.680) mIU/L Urine Color Urine Appearance (Clear) Urine pH (5.0-8.0) Ur Specific Dema (1.001-1.035) Urine Protein (Negative) Urine Glucose (UA) (Negative) Urine Ketones (Negative) Urine Blood (Negative) Urine Nitrite (Negative) Urine Bilirubin (Negative) Urine Urobilinogen (<2.0) mg/dL Ur Leukocyte Esterase (Negative) 09/24/17 09/24/17 Range/Units 10:30 11:15 WBC (3.8-10.6) k/uL RBC (4.30-5.90) m/uL Hgb (13.0-17.5) gm/dL Hct (39.0-53.0) % MCV (80.0-100.0) fL MCH (25.0-35.0) pg MCHC (31.0-37.0) g/dL RDW (11.5-15.5) % Plt Count (150-450) k/uL Neutrophils % % Lymphocytes % % Monocytes % % Eosinophils % % Basophils % % Neutrophils # (1.3-7.7) k/uL Lymphocytes # (1.0-4.8) k/uL Monocytes # (0-1.0) k/uL Eosinophils # (0-0.7) k/uL Basophils # (0-0.2) k/uL Hypochromasia Poikilocytosis Anisocytosis PT 10.9 (9.0-12.0) sec INR 1.1 (<1.2) APTT 24.9 (22.0-30.0) sec Sodium (137-145) mmol/L Potassium (3.5-5.1) mmol/L Chloride (98-107) mmol/L Carbon Dioxide (22-30) mmol/L Anion Gap mmol/L BUN (9-20) mg/dL Creatinine (0.66-1.25) mg/dL Est GFR (CKD-EPI)AfAm (>60 ml/min/1.73 sqM) Est GFR (CKD-EPI)NonAf (>60 ml/min/1.73 sqM) Glucose (74-99) mg/dL Calcium (8.4-10.2) mg/dL Phosphorus (2.5-4.5) mg/dL Magnesium (1.6-2.3) mg/dL Total Bilirubin (0.2-1.3) mg/dL AST (17-59) U/L ALT (21-72) U/L Alkaline Phosphatase (38-126) U/L Total Creatine Kinase (55-170) U/L CK-MB (CK-2) (0.0-2.4) ng/mL CK-MB (CK-2) Rel Index Troponin I (0.000-0.034) ng/mL Total Protein (6.3-8.2) g/dL Albumin (3.5-5.0) g/dL TSH (0.465-4.680) mIU/L Urine Color Light Yellow Urine Appearance Clear (Clear) Urine pH 6.5 (5.0-8.0) Ur Specific Dema 1.007 (1.001-1.035) Urine Protein Negative (Negative) Urine Glucose (UA) Negative (Negative) Urine Ketones Negative (Negative) Urine Blood Negative (Negative) Urine Nitrite Negative (Negative) Urine Bilirubin Negative (Negative) Urine Urobilinogen <2.0 (<2.0) mg/dL Ur Leukocyte Esterase Negative (Negative) Disposition Clinical Impression: Weakness, Esophageal cancer, Gait instability, Anemia Disposition: HOME SELF-CARE Condition: Fair Instructions: Weakness (ED), Anemia (ED), Fall Prevention for Older Adults (ED) Referrals: Sumit Dozier DO [Primary Care Provider] - 1-2 days Time of Disposition: 12:31
[2017-09-24 11:27] LABS: Albumin 3.7 g/dL (3.5-5.0); Calcium 9.2 mg/dL (8.4-10.2); Magnesium 1.9 mg/dL (1.6-2.3); Potassium 3.9 mmol/L (3.5-5.1); Total Bilirubin 0.7 mg/dL (0.2-1.3); Total Protein 6.9 g/dL (6.3-8.2)
[2017-09-24 11:30] LABS: Anisocytosis Slight; Basophils % (A) 0 %; Eosinophils # (A) 0.1 k/uL (0-0.7); Eosinophils % (A) 1 %; HCT 31.1 % (39.0-53.0); Hypochromasia Moderate; Lymphocytes # (A) 0.5 k/uL (1.0-4.8); Lymphocytes % (A) 6 %; MCH 28.2 pg (25.0-35.0); MCHC 32.2 g/dL (31.0-37.0); MCV 87.8 fL (80.0-100.0); Monocytes # (A) 0.7 k/uL (0-1.0); Monocytes % (A) 9 %; Neutrophils # (A) 6.1 k/uL (1.3-7.7); Neutrophils % (A) 81 %; Platelet Count 318 k/uL (150-450); Poikilocytosis Moderate; RBC 3.54 m/uL (4.30-5.90); RDW 17.9 % (11.5-15.5); WBC 7.5 k/uL (3.8-10.6)
[2017-09-24 11:35] LABS: Creatine Kinase 46 U/L (55-170)
--- NOTE | 2017-09-24 11:37 | XR ---
EXAMINATION TYPE: XR chest 2V DATE OF EXAM: 09/24/2017 COMPARISON: Chest x-ray September 09, 2017 HISTORY: History of esophageal cancer with weakness weight loss and chest pain. TECHNIQUE: Frontal and lateral views of the chest are obtained. FINDINGS: There is chronic emphysematous change without suspicious focal air space opacity, pleural effusion, or pneumothorax seen. The cardiac silhouette size remains enlarged with atherosclerotic an d slightly ectatic thoracic aorta. The osseous structures are intact. IMPRESSION: Chronic changes and cardiomegaly without acute pulmonary process.
[2017-09-24 11:38] LABS: INR 1.1 (<1.2); Partial Thromboplastin Time 24.9 sec (22.0-30.0); Prothrombin Time 10.9 sec (9.0-12.0)
[2017-09-24 11:49] LABS: Creatine Kinase MB 0.4 ng/mL (0.0-2.4); Troponin I <0.012 ng/mL (0.000-0.034)
[2017-09-24 11:50] VITALS: RESP 16
[2017-09-24 12:07] LABS: Appearance,Urine Clear (Clear); Bilirubin,Urine Negative (Negative); Blood,Urine Negative (Negative); Color,Urine Light Yellow; Glucose,Urine (UA) Negative (Negative); Ketones,Urine Negative (Negative); Leukocyte Esterase,Urine Negative (Negative); Nitrite,Urine Negative (Negative); PH, Urine 6.5 (5.0-8.0); Protein,Urine Negative (Negative); Specific Gravity,Urine 1.007 (1.001-1.035); Urobilinogen,Urine <2.0 mg/dL (<2.0)
[2017-09-24 12:43] VITALS: BP 162/79; PULSE 82
== END 2017-09-24 12:52 | disposition home or self-care (01) ==
LOC: EC 09:55
DX: R53.1 Weakness (principal); D64.9 Anemia, unspecified; R26.9 Unspecified abnormalities of gait and mobility; C15.9 Malignant neoplasm of esophagus, unspecified; E11.9 Type 2 diabetes mellitus without complications; K21.9 Gastro-esophageal reflux disease without esophagitis; E78.5 Hyperlipidemia, unspecified; I10 Essential (primary) hypertension; M19.90 Unspecified osteoarthritis, unspecified site; Z79.4 Long term (current) use of insulin; Z79.899 Other long term (current) drug therapy; Z88.0 Allergy status to penicillin; Z91.040 Latex allergy status
CPT/HCPCS: 36415; 71046; 80053; 81003; 82550; 82553; 83735; 84100; 84443; 84484; 85025; 85610; 85730; 87040; 93005; 96360; 99285

== ENCOUNTER → 2017-10-24 | Outpatient (CLI) | payer MEDICARE ==
--- NOTE | 2017-10-26 09:13 | PE ---
EXAMINATION TYPE: PET CT fusion skull to thigh DATE OF EXAM: 10/24/2017 COMPARISON: Prior PET/CT May 30, 2017 HISTORY: Esophageal cancer progress study. Completed chemotherapy September 02, 2017. Completed radiation treatment September 08, 2017 TECHNIQUE: Following the intravenous administration of 12.803 mCi of F-18 FDG, whole body images are performed from the skull base to the midthigh. Images are reviewed on the computer in the coronal, axial, and sagittal planes. Reconstructed rotating images are created on independent workstation and reviewed on the computer. A noncontrast CT is performed in conjunction with the PET scan. SCAN: Subsequent Scan FINDINGS: SKULL BASE AND NECK: No suspicious hypermetabolic uptake is seen currently. CHEST, MEDIASTINUM, AND HILAR REGION: There are tiny bilateral pleural effusions. There is central gr oundglass opacity and irregular consolidation in both lower lungs with mild hypermetabolic uptake lik dre reflecting posttreatment change, active inflammation or infection is not excluded. Clinical corre lation advised. SUV is 3.58. No suspicious hypermetabolic uptake is identified to suggest residual active local neoplasm or metast atic malignancy however. No suspicious hypermetabolic uptake in the distal esophagus is noted. ABDOMEN AND PELVIS: No suspicious hypermetabolic uptake is present. Normal bowel and bladder uptake i s present. OSSEOUS STRUCTURES: No suspicious hypermetabolic uptake is seen. OTHER CT: Nasal septum is deviated to left of midline. Moderate calcified plaque bilateral carotid bulbs is redemonstrated. There is moderate to severe three-vessel coronary artery calcification which is noted marker for shavon nary artery disease. Cardiomegaly is redemonstrated. There is underlying emphysematous change with respiratory motion artifact degradation present. Bilateral gynecomastia is again seen. Spurring of both sacroiliac joints is redemonstrated. There is facet arthropathy lower lumbar levels. There is multilevel spurring in the thoracolumbar spine. IMPRESSION: No new areas of abnormal hypermetabolic uptake are seen to suggest malignant recurrence o r metastatic malignancy.
== END | disposition home or self-care (01) ==
LOC: RADPETMAIN 07:52
PROVIDERS: ATTEND Internal Medicine Hematology & Oncology
DX: C15.5 Malignant neoplasm of lower third of esophagus (principal)
CPT/HCPCS: 78815; A9552

== ENCOUNTER → 2017-11-18 | Outpatient (CLI) | payer MEDICARE ==
--- NOTE | 2017-11-18 11:57 | XR ---
EXAMINATION TYPE: XR lumbosacral spine min 4V DATE OF EXAM: 11/18/2017 CLINICAL HISTORY: pain COMPARISON: NONE TECHNIQUE: Frontal, lateral, and oblique images of the lumbar spine are obtained. FINDINGS: There are 5 lumbar type vertebral bodies identified. Mild curvature seen convex to the ri ght. The lumbar spine shows satisfactory alignment without evidence of acute fracture or dislocation. Lumbar Vertebral body heights are within normal limits. Mild superior endplate loss of height involv ing T12 is of uncertain age and/or etiology. Moderate to severe multilevel degenerative disc space na rrowing with spondylosis. Facet joint arthropathy. The overlying soft tissue appears unremarkable. IMPRESSION: 1.Mild superior endplate loss of height involving T12 is of uncertain age and/or etiology. 2. Moderate to severe multilevel degenerative disc space narrowing.
--- NOTE | 2017-11-18 12:10 | XR ---
EXAMINATION TYPE: XR chest 2V DATE OF EXAM: 11/18/2017 COMPARISON: NONE HISTORY: Shortness of breath TECHNIQUE: Frontal and lateral views of the chest are obtained. FINDINGS: Scattered senescent parenchymal changes noted. Hyperinflation compatible with COPD. Patchy basilar infiltrates identified. Correlate for pneumonia. Heart size is stable. Mediastinal structures are stable and grossly unremarkable. No evidence for hilar prominence. Degenerative changes dorsal spine. IMPRESSION: 1. Patchy basilar infiltrates identified. Correlate for pneumonia.
== END | disposition home or self-care (01) ==
LOC: RADXRYALE 11:20
PROVIDERS: ATTEND Physician Assistant Medical
DX: M48.07 Spinal stenosis, lumbosacral region (principal); R91.8 Other nonspecific abnormal finding of lung field; R06.02 Shortness of breath
CPT/HCPCS: 71046; 72110

== ENCOUNTER → 2017-11-23 | Outpatient (CLI) | payer MEDICARE ==
[2017-11-23 12:38] LABS: Blood Urea Nitrogen 23 mg/dL (9-20)
--- NOTE | 2017-11-23 13:28 | CT ---
EXAMINATION TYPE: CT chest angio for PE DATE OF EXAM: 11/23/2017 COMPARISON: CT chest June 30, 2012. Two-view chest x-ray from [address] October 24, 2017. HISTORY: Shortness of breath with cough and chest congestion. History of esophageal cancer. CT DLP: 612 mGycm. Automated Exposure Control for Dose Reduction was Utilized. CONTRAST: CTA scan of the thorax is performed with IV Contrast, patient injected with 100 mL of Isovue 370, pul monary embolism protocol. MIP Images are created on CT scanner and reviewed. FINDINGS: LUNGS: There is significant respiratory motion artifact degradation making evaluation suboptimal. The re is diffuse groundglass opacity with interlobular septal thickening particularly in the lower lungs . There is central reticulation and fibrosis involving the lower lungs. No pleural effusion or pneumo thorax is seen bilaterally. MEDIASTINUM: There is satisfactory enhancement of the pulmonary artery and its branches, there is no CT evidence for pulmonary embolism. There are no greater than 1 cm hilar or mediastinal lymph nodes. No significant pericardial effusion is seen. Cardiomegaly is redemonstrated. There is fairly sever e 3 vessel coronary artery calcification again seen. OTHER: Moderate multilevel anterior and lateral spurring in the mid to lower thoracic spine is presen t. IMPRESSION: 1. No CT evidence for acute pulmonary embolism. 2. Correlate for CHF exacerbation as there is cardiomegaly with suspected new mild alveolar and inter stitial edema. Some underlying pulmonary parenchymal fibrosis is felt present centrally in both mid t o lower lungs likely product of treatment change for esophageal cancer. Correlate clinically. Underly ing acute infiltrates are not excluded.
== END | disposition home or self-care (01) ==
LOC: RADCTMAIN 12:01
PROVIDERS: ATTEND Radiology Radiation Oncology
DX: C15.5 Malignant neoplasm of lower third of esophagus (principal); J84.10 Pulmonary fibrosis, unspecified; I51.7 Cardiomegaly
CPT/HCPCS: 82565; 84520; 71275; 36415; Q9967

== ENCOUNTER 2017-12-24 11:11 | Emergency (ER) | payer MEDICARE ==
[2017-12-24 11:19] VITALS: RESP 18
[2017-12-24] MEDS ORDERED: Acetaminophen-Codeine 300-30mg TAB PO STA (11:44)
--- NOTE | 2017-12-24 12:22 | ED ---
General Adult HPI - General Chief complaint: Fall Stated complaint: Fall Time Seen by Provider: 12/24/17 11:24 Source: patient, RN notes reviewed Mode of arrival: wheelchair Limitations: no limitations - History of Present Illness Initial comments: Patient 82-year-old male presented to the emergency room today with chief complaint of a fall that occurred 3 days ago. Patient states he had a fall. She is approximately 2 weeks ago. He states initial fall was coming down off of a tractor approximate 4 feet up falling back on his back. He states he did go to a local hospital had an x-ray obtained which was negative. Patient states that he had a second fall 3 days ago when he was outside on his grass lost his balance was a slight hill and fell down rolling down. He states his back is increased in pain worse with movements. Patient denies any lumbar radiculopathy. Denies any saddle anesthesia. Denies any bowel or bladder incontinence retention. Patient denies any recent fever, chills, shortness of breath, chest pain, abdominal pain, nausea or vomiting, numbness or tingling, headaches or visual changes, or any other complaints. - Related Data Home Medications Medication Instructions Recorded Confirmed Cetirizine HCl 10 mg PO DAILY PRN 07/05/15 12/24/17 Nitroglycerin Sl Tabs [Nitrostat] 0.4 mg SUBLINGUAL Q5M PRN 07/05/15 12/24/17 Omeprazole [PriLOSEC] 40 mg PO BID 07/05/15 12/24/17 Metoprolol Tartrate [Lopressor] 25 mg PO DAILY 09/01/17 12/24/17 Pravastatin Sodium [Pravachol] 80 mg PO HS 09/01/17 12/24/17 Gabapentin [Neurontin] 900 mg PO TID 09/09/17 12/24/17 Allopurinol [Zyloprim] 100 mg PO DAILY 09/24/17 12/24/17 Insulin Glargine,Hum.rec.anlog 20 unit SQ PC-SUPPER 09/24/17 12/24/17 [Lantus Solostar] Insulin Glargine,Hum.rec.anlog 40 units SQ QAM 09/24/17 12/24/17 [Lantus Solostar] Insulin Lispro [humaLOG Kwikpen] See Protocol SQ AC-TID 09/24/17 12/24/17 Potassium Chloride ER [K-Dur 10] 10 meq PO DAILY 09/24/17 12/24/17 Spironolactone [Aldactone] 12.5 mg PO DAILY 09/24/17 12/24/17 Torsemide [Demadex] 100 mg PO DAILY 09/24/17 12/24/17 Zolpidem [Ambien] 10 mg PO HS PRN 09/24/17 12/24/17 metFORMIN HCL [Glucophage] 1,000 mg PO BID 09/24/17 12/24/17 Aspirin EC [Ecotrin Low Dose] 81 mg PO DAILY 12/24/17 12/24/17 Flexeril (Unknown Dose) 1 tab PO TID 12/24/17 12/24/17 predniSONE 20 mg PO TID 12/24/17 12/24/17 traMADol HCL/ACETAMINOPHEN 1 - 2 tab PO DAILY PRN 12/24/17 12/24/17 [Ultracet 37.5-325] Previous Rx's Medication Instructions Recorded Acetaminophen-Codeine 300-30mg 1 each PO Q6H PRN #12 tablet 12/24/17 [Tylenol #3] Allergies Allergy/AdvReac Type Severity Reaction Status Date / Time latex Allergy Itching Verified 12/24/17 11:48 penicillin G Allergy Rash/Hives Verified 12/24/17 11:48 Review of Systems ROS Statement: Those systems with pertinent positive or pertinent negative responses have been documented in the HPI. ROS Other: All systems not noted in ROS Statement are negative. Past Medical History Past Medical History: Cancer, Diabetes Mellitus, GERD/Reflux, Hyperlipidemia, Hypertension, Osteoarthritis (OA), Pneumonia Additional Past Medical History / Comment(s): gout, CARDOSO'S esophagus, Esaphageal cancer-completed the last of 28 tx on and has had so far 5 chemo tx last on was last thu09/02/17. pt's stated his weight has gone down from 201 to 183 over 6 weeks. has been drinking vanillia premier protein shakes daily am.hiatal hernia, kidney stones 40 years ago,pne 20 years ago, neuropathy, past stomach ulcers,"lt carotid 100% blkg, shingelles -2016 History of Any Multi-Drug Resistant Organisms: None Reported Past Surgical History: Appendectomy, Orthopedic Surgery Additional Past Surgical History / Comment(s): LILA shoulder rotator CUFF, ORIF LT FOOT thinks he has plate and screws, "esophagus radiofrequency ablation", lila cataracts-lens implants Past Anesthesia/Blood Transfusion Reactions: No Reported Reaction Additional Past Anesthesia/Blood Transfusion Reaction / Comment(s): . Past Psychological History: No Psychological Hx Reported Smoking Status: Never smoker Past Alcohol Use History: Occasional Past Drug Use History: None Reported - Past Family History Mother Family Medical History: Cancer Additional Family Medical History / Comment(s): . Father Family Medical History: Coronary Artery Disease (CAD) Additional Family Medical History / Comment(s): AT AGE 53 General Exam - General Exam Comments Initial Comments: General: The patient is awake and alert, in no distress, and does not appear acutely ill. Eye: extra-ocular movements are intact. No nystagmus. There is normal conjunctiva bilaterally. No signs of icterus. Ears, nose, mouth and throat: There are moist mucous membranes and no oral lesions. Neck: The neck is supple, there is no tenderness or JVD. Cardiovascular: There is a regular rate and rhythm. No murmur, rub or gallop is appreciated. Respiratory: Lungs are clear to auscultation, respirations are non-labored, breath sounds are equal. No wheezes, stridor, rales, or rhonchi. Gastrointestinal: Soft, non-distended, non-tender abdomen without masses or organomegaly noted. There is no rebound or guarding present. No CVA tenderness. Musculoskeletal: Patient does have tenderness lower lumbar from L2 to L5. Mild tenderness over left hip on palpation laterally and with multiple maneuver. Strength 5/5. Sensation intact. Pulses equal bilaterally 2+. Neurological: A&O x 3. CN II-XII intact, There are no obvious motor or sensory deficits. Coordination appears grossly intact. Speech is normal. Skin: Skin is warm and dry and no rashes or lesions are noted. Psychiatric: Cooperative, appropriate mood & affect, normal judgment. Limitations: no limitations Course Vital Signs 12/24/17 11:15 Pulse Rate 106 H Respiratory 18 Rate Blood Pressure 131/72 O2 Sat by Pulse 97 Oximetry Medical Decision Making - Medical Decision Making Patient reexamined at this time showing no signs of distress. Doesn't feel better after Tylenol codeine in the emergency room. His x-rays have been reviewed and does show a pressure fracture of T12 which is seen from previous film on 11/18/2018. Patient's x-ray of the left hip and pelvis is negative for any acute abnormality. At this time patient will be discharged home advise follow family physician also given information for orthopedic follow-up. He'll be given a short prescription of Tylenol codeine to go home with for pain. He is advised to hold Flexeril while taking Tylenol coating advised that may still make him drowsy. Disposition Clinical Impression: Thoracic compression fracture Disposition: HOME SELF-CARE Condition: Good Instructions: Vertebral Compression Fracture (ED) Additional Instructions: Please use Tylenol with codeine as prescribed and hold Flexeril while taking this. Please follow-up with orthopedic/family doctor in the next 2-5 days of symptoms. Please return to emergency room if the symptoms increase or worsen or for any other concerns. Prescriptions: Acetaminophen-Codeine 300-30mg [Tylenol #3] 1 each PO Q6H PRN #12 tablet PRN Reason: Pain Is patient prescribed a controlled substance at d/c from ED?: Yes When asked, does pt state using other controlled substances?: No If prescribed controlled substance>3 days was MAPS reviewed?: Prescribed <3 Days Referrals: Sumit Dozier DO [Primary Care Provider] - 1-2 days Branden Santacruz DO [Doctor of Osteopathic Medicine] - 1-2 days Time of Disposition: 13:17
--- NOTE | 2017-12-24 12:29 | XR ---
EXAMINATION TYPE: XR lumbar spine 2 or 3V DATE OF EXAM: 12/24/2017 CLINICAL HISTORY: Fall and lower back pain TECHNIQUE: Frontal and lateral images of the lumbar spine are obtained. COMPARISON: 11/18/2017 FINDINGS: There are 5 lumbar type vertebral bodies identified. Moderate multilevel degenerative dis c disease are seen as anterior osteophyte, intervertebral disc space narrowing, endplate sclerosis an d facet arthropathy. Schmorl's node impresses upon the superior end plate of L2 although the anterior margin of the superior endplate is maintained in height. Within the thoracic spine there is a T12 ve rtebral body compression deformity with vertebral body height loss of approximately 40%. This is unch anged from the prior of 11/18/2017. There is generalized osseous demineralization. IMPRESSION: 1. No acute fracture or malalignment of the lumbar spine. 2. Moderate multilevel degenerative disc disease. 3. Compression deformity of T12 unchanged from the prior of 11/18/2017.
--- NOTE | 2017-12-24 12:53 | XR ---
EXAMINATION TYPE: XR Hip LT and AP Pelvis DATE OF EXAM: 12/24/2017 COMPARISON: NONE HISTORY: Pelvic and left hip pain after fall 3 weeks ago TECHNIQUE: A single AP view of the pelvis is obtained. Two views of the left hip are obtained. FINDINGS: There is no acute fracture/dislocation evident in the pelvis. The hip and sacroiliac join ts appear symmetric. The overlying soft tissue appears unremarkable. Two views of left hip show no acute fracture or dislocation. No focal lytic or sclerotic lesion seen in the proximal left femur. The overlying soft tissue is unremarkable. There is moderate femoral a cetabular arthropathy demonstrated as cephalad joint space narrowing and acetabular roof sclerosis. M oderate degenerative changes of the lumbosacral junction are also seen with calcific atheromatous jassi nges of the abdominal aorta and its branches. IMPRESSION: There is no acute fracture or dislocation in the pelvis or left hip. Moderate bilateral femoral acetabular arthropathy and degenerative changes of the lumbosacral junction.
[2017-12-24 13:37] VITALS: BP 137/67; PULSE 79; TEMP 97.9
== END 2017-12-24 13:37 | disposition home or self-care (01) ==
LOC: EC 11:11
DX: S22.089A Unspecified fracture of T11-T12 vertebra, initial encounter for closed fracture (principal); E11.9 Type 2 diabetes mellitus without complications; K21.9 Gastro-esophageal reflux disease without esophagitis; E78.5 Hyperlipidemia, unspecified; I10 Essential (primary) hypertension; M19.90 Unspecified osteoarthritis, unspecified site; M10.9 Gout, unspecified; G62.9 Polyneuropathy, unspecified; Z85.01 Personal history of malignant neoplasm of esophagus; Z92.21 Personal history of antineoplastic chemotherapy; Z90.49 Acquired absence of other specified parts of digestive tract; Z98.890 Other specified postprocedural states; Z79.4 Long term (current) use of insulin; Z79.52 Long term (current) use of systemic steroids; Z79.82 Long term (current) use of aspirin; Z79.899 Other long term (current) drug therapy; Z88.0 Allergy status to penicillin; Z91.040 Latex allergy status; W18.39XA Other fall on same level, initial encounter
CPT/HCPCS: 72100; 73502; 99283

== ENCOUNTER 2018-01-09 23:14 | Inpatient (IN) | payer MEDICARE ==
--- NOTE | 2018-01-09 23:44 | ED ---
Syncope HPI - General Chief Complaint: Syncope Stated Complaint: near syncope Time Seen by Provider: 01/09/18 23:34 Source: patient Mode of arrival: wheelchair Limitations: physical limitation - History of Present Illness Initial Comments: This patient is a 82-year-old man presenting to be evaluated for what he is terming dizziness, that has been going on for probably 6 weeks. In further detail describing, the patient feels like he comes close to passing out, and it occurs when he gets up to use the bathroom or walk around the house. He denies any vertigo. The patient states that the episodes had been going on a few times a day, but over the past few days have been happening nearly every time that he gets to his feet. He denies any associated symptoms, including no chest pain, dyspnea, diaphoresis, associated vomiting, or palpitations. MD Complaint: almost passed out Onset/Timin -: week(s) Prodromal Symptoms: lightheaded -: second(s) Injuries Sustained Associated with Event: None Current Symptoms: back to baseline Context: getting out of bed, standing up Treatments Prior to Arrival: none - Related Data Home Medications Medication Instructions Recorded Confirmed Cetirizine HCl 10 mg PO DAILY PRN 07/05/15 01/10/18 Nitroglycerin Sl Tabs [Nitrostat] 0.4 mg SUBLINGUAL Q5M PRN 07/05/15 01/10/18 Metoprolol Tartrate [Lopressor] 25 mg PO DAILY 09/01/17 01/10/18 Pravastatin Sodium [Pravachol] 80 mg PO HS 09/01/17 01/10/18 Gabapentin [Neurontin] 900 mg PO TID 09/09/17 01/10/18 Allopurinol [Zyloprim] 100 mg PO DAILY 09/24/17 01/10/18 Insulin Lispro [humaLOG Kwikpen] See Protocol SQ ACHS 09/24/17 01/10/18 Potassium Chloride ER [K-Dur 10] 10 meq PO DAILY 09/24/17 01/10/18 Zolpidem [Ambien] 10 mg PO HS PRN 09/24/17 01/10/18 metFORMIN HCL [Glucophage] 1,000 mg PO BID 09/24/17 01/10/18 Aspirin EC [Ecotrin Low Dose] 81 mg PO DAILY 12/24/17 01/10/18 traMADol HCL/ACETAMINOPHEN 1 - 2 tab PO DAILY PRN 12/24/17 01/10/18 [Ultracet 37.5-325] Cyclobenzaprine [Flexeril] 5 mg PO TID 01/10/18 01/10/18 Previous Rx's Medication Instructions Recorded Albuterol Inhaler [Ventolin Hfa 1 - 2 puff INHALATION Q6HR PRN #1 01/15/18 Inhaler] inhaler Furosemide [Lasix] 20 mg PO DAILY PRN #30 tab 01/15/18 INSULIN LISPRO (HumaLOG) [humaLOG] 8 unit SQ ACHS #0 01/15/18 Insulin Glargine,Hum.rec.anlog 25 unit SQ PC-SUPPER #0 01/15/18 [Lantus Solostar] Levofloxacin [Levaquin] 500 mg PO DAILY #5 tab 01/15/18 predniSONE 10 mg PO DAILY #30 tab 01/15/18 Allergies Allergy/AdvReac Type Severity Reaction Status Date / Time latex Allergy Itching Verified 01/10/18 12:14 penicillin G Allergy Rash/Hives Verified 01/10/18 12:14 Review of Systems ROS Statement: Those systems with pertinent positive or pertinent negative responses have been documented in the HPI. ROS Other: All systems not noted in ROS Statement are negative. Constitutional: Denies: fever, chills, weakness Respiratory: Denies: cough, dyspnea, wheezes, hemoptysis Cardiovascular: Reports: as per HPI. Denies: chest pain, palpitations, orthopnea, edema Gastrointestinal: Reports: constipation. Denies: abdominal pain, nausea, vomiting, diarrhea, melena, hematochezia Genitourinary: Denies: dysuria, frequency, hematuria Musculoskeletal: Denies: back pain Skin: Denies: rash Neurological: Denies: headache, weakness, numbness, paresthesias Past Medical History Past Medical History: Cancer, Diabetes Mellitus, GERD/Reflux, Hyperlipidemia, Hypertension, Osteoarthritis (OA), Pneumonia Additional Past Medical History / Comment(s): gout, CARDOSO'S esophagus, Esaphageal cancer-completed the last of 28 tx on and has had so far 5 chemo tx last on was last thu09/02/17. pt's stated his weight has gone down from 201 to 183 over 6 weeks. has been drinking vanillia premier protein shakes daily am.hiatal hernia, kidney stones 40 years ago,pne 20 years ago, neuropathy, past stomach ulcers,"lt carotid 100% blkg, shingelles -2016 History of Any Multi-Drug Resistant Organisms: None Reported Past Surgical History: Appendectomy, Orthopedic Surgery Additional Past Surgical History / Comment(s): LILA shoulder rotator CUFF, ORIF LT FOOT thinks he has plate and screws, "esophagus radiofrequency ablation", lila cataracts-lens implants Past Anesthesia/Blood Transfusion Reactions: No Reported Reaction Additional Past Anesthesia/Blood Transfusion Reaction / Comment(s): . Past Psychological History: No Psychological Hx Reported Smoking Status: Never smoker Past Alcohol Use History: Occasional Past Drug Use History: None Reported - Past Family History Mother Family Medical History: Cancer Additional Family Medical History / Comment(s): . Father Family Medical History: Coronary Artery Disease (CAD) Additional Family Medical History / Comment(s): AT AGE 53 General Exam Limitations: physical limitation General appearance: alert, in no apparent distress Head exam: Present: atraumatic, normocephalic Eye exam: Present: normal appearance, PERRL, EOMI. Absent: scleral icterus, conjunctival injection, nystagmus ENT exam: Present: normal oropharynx Neck exam: Present: normal inspection Respiratory exam: Present: normal lung sounds bilaterally, rales (Bilateral bases). Absent: respiratory distress, wheezes, rhonchi, stridor, accessory muscle use, decreased breath sounds, prolonged expiratory Cardiovascular Exam: Present: regular rate, normal rhythm, normal heart sounds. Absent: systolic murmur, diastolic murmur, rubs, gallop GI/Abdominal exam: Present: soft. Absent: distended, tenderness, guarding, rebound, rigid, mass Extremities exam: Present: normal inspection, normal capillary refill. Absent: pedal edema, calf tenderness Back exam: Present: normal inspection. Absent: CVA tenderness (R), CVA tenderness (L) Neurological exam: Present: alert Skin exam: Present: warm, dry, intact, normal color. Absent: rash Course Vital Signs 01/09/18 01/10/18 01/10/18 23:16 00:05 02:10 Temperature 98.3 F Pulse Rate 82 78 68 Pulse Rate [ Pulse Oximetery ] Respiratory 21 18 18 Rate Blood Pressure 145/75 132/78 152/73 Blood Pressure [Left Arm] O2 Sat by Pulse 98 98 98 Oximetry 01/10/18 01/10/18 01/10/18 04:00 04:45 06:30 Temperature 98.4 F Pulse Rate 68 68 Pulse Rate [ 61 Pulse Oximetery ] Respiratory 18 18 24 Rate Blood Pressure 148/75 150/69 Blood Pressure 165/76 [Left Arm] O2 Sat by Pulse 98 99 99 Oximetry EKG Findings - EKG Comments: EKG Findings:: There is an RSR' pattern suggesting partial right bundle branch block. Minimal voltage criteria for LVH. - EKG Results: EKG: interpreted by PASQUALE, sinus rhythm (Rate 85 bpm), normal axis, normal ST/T Procedures - Sepsis Sepsis Focused Exam #1 Sepsis Focused Exam Date: 01/10/18 Sepsis Focused Exam Time: 04:35 Sepsis Focused Exam Complete: Yes Vital Signs & RN Notes Reviewed: Yes Capillary Refill: < 2 Seconds: Fingers Peripheral Pulses: Normal: Radial (R) Skin Color: Flushed Respiratory Exam: rales (Bases) Cardiovascular Exam: regular rate, normal rhythm, normal heart sounds Medical Decision Making - Lab Data Result diagrams: 01/15/18 07:35 01/15/18 07:35 Lab Results 01/09/18 01/09/18 01/09/18 Range/Units 23:32 23:40 23:40 WBC 9.5 (3.8-10.6) k/uL RBC 5.42 (4.30-5.90) m/uL Hgb 14.4 (13.0-17.5) gm/dL Hct 45.6 (39.0-53.0) % MCV 84.0 (80.0-100.0) fL MCH 26.5 (25.0-35.0) pg MCHC 31.5 (31.0-37.0) g/dL RDW 20.0 H (11.5-15.5) % Plt Count 171 (150-450) k/uL Neutrophils % 91 % Lymphocytes % 3 % Monocytes % 4 % Eosinophils % 0 % Basophils % 0 % Neutrophils # 8.6 H (1.3-7.7) k/uL Lymphocytes # 0.3 L (1.0-4.8) k/uL Monocytes # 0.4 (0-1.0) k/uL Eosinophils # 0.0 (0-0.7) k/uL Basophils # 0.0 (0-0.2) k/uL Anisocytosis Slight Microcytosis Slight PT (9.0-12.0) sec INR (<1.2) APTT (22.0-30.0) sec Sodium (137-145) mmol/L Potassium (3.5-5.1) mmol/L Chloride (98-107) mmol/L Carbon Dioxide (22-30) mmol/L Anion Gap mmol/L BUN (9-20) mg/dL Creatinine (0.66-1.25) mg/dL Est GFR (CKD-EPI)AfAm (>60 ml/min/1.73 sqM) Est GFR (CKD-EPI)NonAf (>60 ml/min/1.73 sqM) Glucose (74-99) mg/dL POC Glucose (mg/dL) (75-99) mg/dL POC Glu Shift Supervisor Melting ID Lactic Ac Sepsis Rflx Plasma Lactic Acid Nestor (0.7-2.0) mmol/L Calcium (8.4-10.2) mg/dL Magnesium (1.6-2.3) mg/dL Total Bilirubin (0.2-1.3) mg/dL AST (17-59) U/L ALT (21-72) U/L Alkaline Phosphatase (38-126) U/L Total Creatine Kinase 34 L (55-170) U/L CK-MB (CK-2) 1.5 (0.0-2.4) ng/mL CK-MB (CK-2) Rel Index 4.4 Troponin I 0.021 (0.000-0.034) ng/mL Total Protein (6.3-8.2) g/dL Albumin (3.5-5.0) g/dL Urine Color Yellow Urine Appearance Clear (Clear) Urine pH 5.5 (5.0-8.0) Ur Specific [place] 1.012 (1.001-1.035) Urine Protein Negative (Negative) Urine Glucose (UA) Negative (Negative) Urine Ketones Negative (Negative) Urine Blood Negative (Negative) Urine Nitrite Negative (Negative) Urine Bilirubin Negative (Negative) Urine Urobilinogen <2.0 (<2.0) mg/dL Ur Leukocyte Esterase Negative (Negative) 01/09/18 01/09/18 01/09/18 Range/Units 23:40 23:40 23:40 WBC (3.8-10.6) k/uL RBC (4.30-5.90) m/uL Hgb (13.0-17.5) gm/dL Hct (39.0-53.0) % MCV (80.0-100.0) fL MCH (25.0-35.0) pg MCHC (31.0-37.0) g/dL RDW (11.5-15.5) % Plt Count (150-450) k/uL Neutrophils % % Lymphocytes % % Monocytes % % Eosinophils % % Basophils % % Neutrophils # (1.3-7.7) k/uL Lymphocytes # (1.0-4.8) k/uL Monocytes # (0-1.0) k/uL Eosinophils # (0-0.7) k/uL Basophils # (0-0.2) k/uL Anisocytosis Microcytosis PT 9.9 (9.0-12.0) sec INR 1.0 (<1.2) APTT 21.8 L (22.0-30.0) sec Sodium 138 (137-145) mmol/L Potassium 4.3 (3.5-5.1) mmol/L Chloride 101 (98-107) mmol/L Carbon Dioxide 23 (22-30) mmol/L Anion Gap 14 mmol/L BUN 46 H (9-20) mg/dL Creatinine 1.30 H (0.66-1.25) mg/dL Est GFR (CKD-EPI)AfAm 60 (>60 ml/min/1.73 sqM) Est GFR (CKD-EPI)NonAf 52 (>60 ml/min/1.73 sqM) Glucose 129 H (74-99) mg/dL POC Glucose (mg/dL) (75-99) mg/dL POC Glu Shift Supervisor Melting ID Lactic Ac Sepsis Rflx Plasma Lactic Acid Nestor 6.3 H* (0.7-2.0) mmol/L Calcium 9.2 (8.4-10.2) mg/dL Magnesium 2.0 (1.6-2.3) mg/dL Total Bilirubin 0.4 (0.2-1.3) mg/dL AST 36 (17-59) U/L ALT 47 (21-72) U/L Alkaline Phosphatase 92 (38-126) U/L Total Creatine Kinase (55-170) U/L CK-MB (CK-2) (0.0-2.4) ng/mL CK-MB (CK-2) Rel Index Troponin I (0.000-0.034) ng/mL Total Protein 6.9 (6.3-8.2) g/dL Albumin 4.0 (3.5-5.0) g/dL Urine Color Urine Appearance (Clear) Urine pH (5.0-8.0) Ur Specific [place] (1.001-1.035) Urine Protein (Negative) Urine Glucose (UA) (Negative) Urine Ketones (Negative) Urine Blood (Negative) Urine Nitrite (Negative) Urine Bilirubin (Negative) Urine Urobilinogen (<2.0) mg/dL Ur Leukocyte Esterase (Negative) 01/10/18 01/10/18 01/10/18 Range/Units 00:03 00:46 04:00 WBC (3.8-10.6) k/uL RBC (4.30-5.90) m/uL Hgb (13.0-17.5) gm/dL Hct (39.0-53.0) % MCV (80.0-100.0) fL MCH (25.0-35.0) pg MCHC (31.0-37.0) g/dL RDW (11.5-15.5) % Plt Count (150-450) k/uL Neutrophils % % Lymphocytes % % Monocytes % % Eosinophils % % Basophils % % Neutrophils # (1.3-7.7) k/uL Lymphocytes # (1.0-4.8) k/uL Monocytes # (0-1.0) k/uL Eosinophils # (0-0.7) k/uL Basophils # (0-0.2) k/uL Anisocytosis Microcytosis PT (9.0-12.0) sec INR (<1.2) APTT (22.0-30.0) sec Sodium (137-145) mmol/L Potassium (3.5-5.1) mmol/L Chloride (98-107) mmol/L Carbon Dioxide (22-30) mmol/L Anion Gap mmol/L BUN (9-20) mg/dL Creatinine (0.66-1.25) mg/dL Est GFR (CKD-EPI)AfAm (>60 ml/min/1.73 sqM) Est GFR (CKD-EPI)NonAf (>60 ml/min/1.73 sqM) Glucose (74-99) mg/dL POC Glucose (mg/dL) 110 H (75-99) mg/dL POC Glu Shift Supervisor Melting MONE Armando Bond Lactic Ac Sepsis Rflx Y Plasma Lactic Acid Nestor 2.6 H* (0.7-2.0) mmol/L Calcium (8.4-10.2) mg/dL Magnesium (1.6-2.3) mg/dL Total Bilirubin (0.2-1.3) mg/dL AST (17-59) U/L ALT (21-72) U/L Alkaline Phosphatase (38-126) U/L Total Creatine Kinase (55-170) U/L CK-MB (CK-2) (0.0-2.4) ng/mL CK-MB (CK-2) Rel Index Troponin I (0.000-0.034) ng/mL Total Protein (6.3-8.2) g/dL Albumin (3.5-5.0) g/dL Urine Color Urine Appearance (Clear) Urine pH (5.0-8.0) Ur Specific [place] (1.001-1.035) Urine Protein (Negative) Urine Glucose (UA) (Negative) Urine Ketones (Negative) Urine Blood (Negative) Urine Nitrite (Negative) Urine Bilirubin (Negative) Urine Urobilinogen (<2.0) mg/dL Ur Leukocyte Esterase (Negative) Critical Care Time Critical Care Time: Yes (30 minutes) Disposition Clinical Impression: Pneumonia, Sepsis, Lactic acidosis Disposition: ADMITTED IP TO THIS [facility] Condition: Serious Is patient prescribed a controlled substance at d/c from ED?: No
[2018-01-09 23:52] LABS: Appearance,Urine Clear (Clear); Bilirubin,Urine Negative (Negative); Blood,Urine Negative (Negative); Color,Urine Yellow; Glucose,Urine (UA) Negative (Negative); Ketones,Urine Negative (Negative); Leukocyte Esterase,Urine Negative (Negative); Nitrite,Urine Negative (Negative); PH, Urine 5.5 (5.0-8.0); Protein,Urine Negative (Negative); Specific Gravity,Urine 1.012 (1.001-1.035); Urobilinogen,Urine <2.0 mg/dL (<2.0)
[2018-01-10 00:04] LABS: Glucose,Whole Blood 110 mg/dL (75-99)
[2018-01-10 00:21] LABS: Calcium 9.2 mg/dL (8.4-10.2); Potassium 4.3 mmol/L (3.5-5.1); Total Bilirubin 0.4 mg/dL (0.2-1.3); Total Protein 6.9 g/dL (6.3-8.2)
--- NOTE | 2018-01-10 00:23 | XR ---
EXAMINATION TYPE: XR chest 1V portable DATE OF EXAM: 01/10/2018 COMPARISON: 11/18/2017 HISTORY: Syncope TECHNIQUE: Single frontal view of the chest is obtained. FINDINGS: There is some mild infiltrate in the left lower lobe. The other lung nogueira are clear. The re is no heart failure. Thoracic aorta is atheromatous. There are chest leads. IMPRESSION: Mild left lower lobe pneumonia is improved compared to old exam. There is clearing of mi ld pulmonary congestion compared to old exam. There is probably pulmonary fibrosis.
[2018-01-10 00:32] LABS: Anisocytosis Slight; Basophils % (A) 0 %; Eosinophils % (A) 0 %; HCT 45.6 % (39.0-53.0); HGB 14.4 gm/dL (13.0-17.5); Lymphocytes # (A) 0.3 k/uL (1.0-4.8); Lymphocytes % (A) 3 %; MCH 26.5 pg (25.0-35.0); MCHC 31.5 g/dL (31.0-37.0); Mean Platelet Volume 7.7; Microcytosis Slight; Monocytes # (A) 0.4 k/uL (0-1.0); Monocytes % (A) 4 %; Neutrophils # (A) 8.6 k/uL (1.3-7.7); Neutrophils % (A) 91 %; Platelet Count 171 k/uL (150-450); RBC 5.42 m/uL (4.30-5.90); WBC 9.5 k/uL (3.8-10.6)
[2018-01-10 00:36] LABS: Creatine Kinase MB 1.5 ng/mL (0.0-2.4); Troponin I 0.021 ng/mL (0.000-0.034)
[2018-01-10 00:49] LABS: Prothrombin Time 9.9 sec (9.0-12.0)
[2018-01-10 01:02] LABS: Partial Thromboplastin Time 21.8 sec (22.0-30.0)
[2018-01-10] MEDS ORDERED: LEVOFLOXACIN 750MG-D5W PMX 750 MG in DEXTROSE/WATER 1 150ML.BAG IVPB STA (01:23)
[2018-01-10] MEDS ORDERED: SODIUM CHLORIDE 0.9% 2,500 ML IV ONE (01:23)
[2018-01-10] MEDS ORDERED: PNEUMONIA PROTOCOL UTILIZED 1 EACH MISC PO PRN (04:45)
[2018-01-10] MEDS ORDERED: IPRATROPIUM-ALBUTEROL 3 ML NEB INHALATION PRN (04:45)
[2018-01-10] MEDS ORDERED: NITROGLYCERIN SL TABS 0.4 MG TAB SUBLINGUAL PRN (04:47)
[2018-01-10] MEDS ORDERED: Acetaminophen-Codeine 300-30mg TAB PO PRN (04:47)
[2018-01-10] MEDS: SODIUM CHLORIDE 0.9% 1,000 ML IV SCH ×2 (06:15→14:49)
[2018-01-10 06:49] LABS: Glucose,Whole Blood 108 mg/dL (75-99)
[2018-01-10] MEDS: ALBUTEROL NEBULIZED 2.5 MG/3 ML INHALATION SCH ×2 (08:38→12:04)
[2018-01-10] MEDS: ASPIRIN 81 MG PO SCH (09:25)
[2018-01-10] MEDS: GABAPENTIN 300 MG CAP PO SCH ×3 (09:25→21:30)
[2018-01-10] MEDS: PANTOPRAZOLE 40 MG TABLET PO SCH ×2 (09:25→21:31)
[2018-01-10] MEDS: POTASSIUM CHLORIDE ER 10 MEQ TAB.ER.PRT PO SCH (09:26)
[2018-01-10] MEDS: predniSONE 20 MG TAB PO SCH ×3 (09:26→21:31)
[2018-01-10] MEDS: METOPROLOL TARTRATE 25 MG TAB PO SCH (09:35)
[2018-01-10] MEDS ORDERED: LORATADINE 10 MG TAB PO PRN (09:45)
[2018-01-10] MEDS ORDERED: traMADol-ACETAMINOP 37.5-325MG 1 EACH TAB PO PRN (09:45)
[2018-01-10 12:07] LABS: Glucose,Whole Blood 145 mg/dL (75-99)
[2018-01-10] MEDS: INSULIN ASPART 100 UNIT/ML 1 ML 10 ML VIAL SQ SCH ×5 (13:06→21:28)
--- NOTE | 2018-01-10 14:31 | CT ---
EXAMINATION TYPE: CT chest wo con DATE OF EXAM: 01/10/2018 COMPARISON: NONE HISTORY: Cough and chest discomfort. CT DLP: 441.7 mGycm. Automated Exposure Control for Dose Reduction was Utilized. TECHNIQUE: CT scan of the thorax is performed without IV contrast. FINDINGS: LUNGS: Increased interstitial markings diffusely. Bibasilar scarring versus atelectasis. Trace bilate ral pleural effusions versus pleural thickening. No pulmonary nodules or masses. The tracheobronchial tree is patent. MEDIASTINUM: Lack of IV contrast is noted to limit evaluation for mediastinal and especially hilar ad enopathy. There are no definitive greater than 1 cm hilar or mediastinal lymph nodes. Ascending and d escending thoracic aorta within normal limits. Coronary artery calcifications are evident. The heart is similar in size. No pericardial effusion. OTHER: Small hiatal hernia. Multilevel degenerative type changes of the spine. Upper abdomen appears unremarkable. No suspicious osseous lesions. IMPRESSION: 1. Overall no significant interval change. 2. There remains mild emphysematous changes with bibasilar subsegmental atelectasis versus scarring.
--- NOTE | 2018-01-10 14:39 | HP ---
HISTORY AND PHYSICAL CHIEF COMPLAINTS: Near-syncope and cough. HISTORY OF PRESENT ILLNESS: This 82-year-old gentleman with a past medical history of multiple medical problems including history of diabetes, hypertension, hyperlipidemia, history of pneumonia, history of gout, history of syncope, history of cardiac catheterization being followed by Dr. Dozier in the outpatient setting, not feeling well over the past several days. Patient having dizziness, weak, some cough and the patient is passing out and the patient also had significant difficulty in walking. Patient came to [facility] and admitted for further evaluation and treatment. White count is 9.5. Chest x-ray showed possible pneumonia. Plasma lactic acid elevated at 6.3. Creatinine is 1.3. Patient admitted to the hospital for further evaluation and treatment. There is no history of any fever, rigors or chills. No headache, loss of consciousness, seizures. PAST MEDICAL HISTORY: Diabetes mellitus, GERD, hypertension, hyperlipidemia, history of degenerative joint disease, history of pneumonia and sepsis, history of syncope. HOME MEDICATIONS PRIOR TO ADMISSION: Include home medications are: 1. Ultram. 2. Ultracet 1-2 tablets p.o. daily p.r.n. 3. Prednisone 20 mg p.o. b.i.d. 4. Glucophage 1000 mg b.i.d. 5. Ambien 10 mg q.h.s. 6. Demadex 100 mg p.o. daily. 7. Aldactone 12.5 mg daily. 8. Pravachol 80 mg daily. 9. K-Dur 10 mEq p.o. daily. 10.Nitrostat 0.4 mg p.r.n. 11.Lopressor 20 mg p.o. daily. 12.Lispro q.a.c. and q.h.s. 13.Lantus 40 units subcu q.a.m. 14.Lantus 40 units subcu a.c. supper. 15.Humalog 12/14 subcu q.h.s. 16.Neurontin 100 mg p.o. t.i.d. 17.Flexeril 5 mg p.o. t.i.d. 18.Cetirizine 10 mg daily p.r.n. 19.Ecotrin 81 mg daily. 20.Zyloprim 100 mg p.o. daily. ALLERGIES: LATEX, PENICILLIN. FAMILY HISTORY: History of thyroid cancer in the family. SOCIAL HISTORY: No history of smoking. Occasional alcohol intake. REVIEW OF SYSTEMS: ENT: Diminished hearing and vision. CARDIOVASCULAR: As mentioned earlier. RESPIRATORY: As mentioned earlier. GI: No nausea or vomiting. : No dysuria or hematuria. NERVOUS SYSTEM: No numbness or weakness. ALLERGY/IMMUNOLOGY: No asthma or hayfever. MUSCULOSKELETAL: As mentioned earlier. HEMATOLOGY/ONCOLOGY: No history of anemia. ENDOCRINE: Diabetes mellitus. CONSTITUTIONAL: As mentioned earlier. DERMATOLOGY: Negative. RHEUMATOLOGY: Negative. PSYCHIATRY: As mentioned earlier. PHYSICAL EXAMINATION: GENERAL: Alert and oriented times three. VITAL SIGNS: Pulse is 68, blood pressure is 141/82, respiration 18, temperature 97.1, pulse ox 98% on 2 L. HEENT: Conjunctivae normal. Oral mucosa moist. NECK is no jugular venous distention. No carotid bruit. No lymph node enlargement. CARDIOVASCULAR: S1, S2 muffled. RESPIRATIONS: Breath sounds diminished in the bases. A few scattered rhonchi and crackles. ABDOMEN: Soft, nontender. No mass palpable. LEGS no edema and no swelling. NERVOUS SYSTEM: Higher functions as mentioned earlier. Moves all 4 limbs. No focal motor or sensory deficits. LYMPHATICS: No lymph nodes palpable in the neck, axillae or groin. SKIN: No ulcer, rash or bleeding. JOINTS: No active deforming arthropathy. LABS: At this time shows the chest x-ray personally reviewed by me reveals bibasilar atelectasis and pneumonia. Other labs are WBC 9.5, hemoglobin 14.4, creatinine 1.30, and lactic acid 6.4. ASSESSMENT: 1. Bibasilar pneumonia possibly gram-negative with possible early sepsis. 2. Increased creatinine with acute renal failure possibly prerenal. 3. History of diabetes type 2. 4. History of gastroesophageal reflux disease. 5. Hypertension. 6. Hyperlipidemia. 7. History of degenerative joint disease. 8. History of pneumonia. 9. Syncope. 10.History of gout. 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 12.History of esophageal cancer status post chemo. 13.History of hiatal hernia. 14.History of nephrolithiasis. RECOMMENDATIONS AND DISCUSSION: In this 82-year-old gentleman who presented with multiple complex medical issues, we will monitor the patient closely, continue the current medications, management and symptomatic treatment. We will initiate broad-spectrum IV antibiotic coverage. Will follow the cultures. We will consult Gastroenterology and as well as Pulmonary also. A PET scan done in October of this year showed no new areas of abnormal hypermetabolic uptake. The prognosis extremely guarded because of multiple complex medical issues. I will consult Dr. Augustin also for continued followup as well. See orders for details. MMODL / IJN: [id number] /
[2018-01-10] MEDS: AZTREONAM 2 GM in SODIUM CHLORIDE 0.9% 100 ML IVPB SCH ×2 (14:47→23:53)
[2018-01-10] MEDS: HEPARIN SODIUM,PORCINE 5,000 UNIT/ML 1 ML VIAL SQ SCH ×2 (14:47→22:27)
[2018-01-10] MEDS: ACETAMINOPHEN TAB 325 MG TAB PO PRN (15:20)
[2018-01-10] MEDS: CYCLOBENZAPRINE 5 MG TAB PO SCH ×2 (15:21→21:31)
[2018-01-10] MEDS: IPRATROPIUM-ALBUTEROL 3 ML NEB INHALATION SCH ×2 (15:25→20:19)
[2018-01-10 17:16] LABS: Glucose,Whole Blood 221 mg/dL (75-99)
[2018-01-10 21:08] LABS: Glucose,Whole Blood 176 mg/dL (75-99)
[2018-01-10] MEDS: INSULIN DETEMIR 100 UNIT/ML 10 ML VIAL SQ SCH (21:27)
[2018-01-10] MEDS: PRAVASTATIN SODIUM 80 MG TAB PO SCH (21:31)
[2018-01-10] MEDS: ZOLPIDEM 10 MG TAB PO PRN (22:27)
[2018-01-11] MEDS: IPRATROPIUM-ALBUTEROL 3 ML NEB INHALATION SCH ×4 (07:12→19:08)
[2018-01-11 07:13] LABS: Glucose,Whole Blood 121 mg/dL (75-99)
[2018-01-11] MEDS ORDERED: SODIUM CHLORIDE 0.9% 250 ML IV ONE (07:38)
[2018-01-11 08:14] LABS: Anisocytosis Moderate; Basophils % (A) 0 %; Eosinophils % (A) 1 %; HCT 41.4 % (39.0-53.0); HGB 13.1 gm/dL (13.0-17.5); Hypochromasia Slight; Lymphocytes # (A) 0.4 k/uL (1.0-4.8); Lymphocytes % (A) 7 %; MCH 27.6 pg (25.0-35.0); MCHC 31.7 g/dL (31.0-37.0); MCV 87.1 fL (80.0-100.0); Mean Platelet Volume 7.3; Monocytes # (A) 0.2 k/uL (0-1.0); Monocytes % (A) 5 %; Neutrophils # (A) 4.4 k/uL (1.3-7.7); Neutrophils % (A) 86 %; Platelet Count 131 k/uL (150-450); RBC 4.75 m/uL (4.30-5.90); RDW 20.1 % (11.5-15.5); WBC 5.2 k/uL (3.8-10.6)
[2018-01-11 08:24] LABS: Anion Gap 7 mmol/L; Blood Urea Nitrogen 22 mg/dL (9-20); Calcium 8.8 mg/dL (8.4-10.2); Carbon Dioxide 23 mmol/L (22-30); Chloride 110 mmol/L (98-107); Glucose 143 mg/dL (74-99); Potassium 4.5 mmol/L (3.5-5.1); Sodium 140 mmol/L (137-145)
[2018-01-11] MEDS: INSULIN ASPART 100 UNIT/ML 1 ML 10 ML VIAL SQ SCH ×8 (09:00→21:54)
[2018-01-11] MEDS: ACETAMINOPHEN TAB 325 MG TAB PO PRN (10:23)
[2018-01-11] MEDS: INSULIN DETEMIR 100 UNIT/ML 10 ML VIAL SQ SCH ×2 (10:23→21:55)
[2018-01-11] MEDS: predniSONE 20 MG TAB PO SCH ×2 (10:24→21:55)
[2018-01-11] MEDS: TORSEMIDE 20 MG TAB PO SCH (10:24)
[2018-01-11] MEDS: ASPIRIN 81 MG PO SCH (10:24)
[2018-01-11] MEDS: CYCLOBENZAPRINE 5 MG TAB PO SCH ×3 (10:25→21:55)
[2018-01-11] MEDS: GABAPENTIN 300 MG CAP PO SCH ×3 (10:25→21:56)
[2018-01-11] MEDS: ALLOPURINOL 100 MG TAB PO SCH (10:25)
[2018-01-11] MEDS: LEVOFLOXACIN 750 MG TAB PO SCH (10:26)
[2018-01-11] MEDS: POTASSIUM CHLORIDE ER 10 MEQ TAB.ER.PRT PO SCH (10:26)
[2018-01-11] MEDS: HEPARIN SODIUM,PORCINE 5,000 UNIT/ML 1 ML VIAL SQ SCH ×2 (10:26→21:54)
[2018-01-11] MEDS: SPIRONOLACTONE 25 MG TAB PO SCH (10:26)
[2018-01-11] MEDS: METOPROLOL TARTRATE 25 MG TAB PO SCH (10:26)
[2018-01-11] MEDS: PANTOPRAZOLE 40 MG TABLET PO SCH ×2 (10:26→21:55)
[2018-01-11] MEDS: AZTREONAM 2 GM in SODIUM CHLORIDE 0.9% 100 ML IVPB SCH ×2 (10:27→16:07)
[2018-01-11] MEDS: SODIUM CHLORIDE 0.9% 1,000 ML IV SCH (10:27)
[2018-01-11 13:17] LABS: Glucose,Whole Blood 119 mg/dL (75-99)
[2018-01-11 14:59] VITALS: BMI 25.9
[2018-01-11 14:59] LABS: Hemoglobin A1C 7.7 % (4.0-6.0)
--- NOTE | 2018-01-11 16:12 | P.CNPUL ---
History of Present Illness Consult date: 01/11/18 Reason for consult: dyspnea History of present illness: This is a pleasant 82-year-old male patient was Hospital as for worsening shortness of breath. The patient had increased cough and congestion and there was a concern for an underlying pneumonia involving the lower lobes more so on the left. The patient came into the emergency department with a CAT scan of the chest was done and showed chronic volume loss and possibly some scarring in lung bases more so on the left. Pneumonia was also suspected. Based on that, the patient was started on a combination of antibiotics. He was on an oral steroids regarding radiation pneumonitis at a dose of 20 mg by mouth twice a day and this was maintained. He was placed on bronchodilators and a pulmonary consultation was requested. This patient is known to have history of esophageal cancer and is under the care of Dr. Resendez. The patient started up by having problems with Cardoso's esophagus treated with endoscopic mucosal resection and radio-frequency ablation, last one was 12/08/[address] Ramos at [facility]. He then presented early Apr 2017 with c/o mild, intermittent dysphagea, EGD on 04/30/17 revealed a small lesion at distal esophagous, biopsy positive for adenocarcinoma, staging PET 05/30/17 revealed faint uptake at distal esophagous, otherwise negative, EUS on 06/12/17 revealed mass at distal esophagus about 3.5mm thick, invading into muscularis propria and 3 suspicious paraesopahgeal nodes. 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 He was referred for recommendations for treatment. Pt decided on definitive treatment, concurrent chemo/radiation started on 07/29/17 and he completed 5 carbo/taxol . Note that he was diagnosed having radiation pneumonitis and he was started on oral steroids by Dr. Herman Judge from radiation oncology. He is a nonsmoker. Lactic acid levels at time of admission was 3.0. White cell count is not elevated at 5.2. Denies having any aspiration or difficulties with swallowing. Review of Systems Constitutional: Reports fatigue Eyes: denies blurred vision, denies bulging eye, denies decreased vision Ears: deny: decreased hearing, ear discharge, earache, tinnitus Ears, nose, mouth and throat: Denies headache, Denies sore throat Cardiovascular: Reports decreased exercise tolerance, Reports dyspnea on exertion, Reports shortness of breath Respiratory: Reports cough, Reports cough with sputum, Reports dyspnea Gastrointestinal: Denies abdominal pain, Denies diarrhea, Denies nausea, Denies vomiting Genitourinary: Reports as per HPI Musculoskeletal: Reports as per HPI Musculoskeletal: absent: ankle pain, ankle stiffness, ankle swelling Integumentary: Denies pruritus, Denies rash Neurological: Denies numbness, Denies weakness Psychiatric: Denies anxiety, Denies depression Endocrine: Reports as per HPI Hematologic/Lymphatic: Reports as per HPI Allergic/Immunologic: Reports as per HPI Past Medical History Past Medical History: Cancer, Diabetes Mellitus, GERD/Reflux, Hyperlipidemia, Hypertension, Osteoarthritis (OA), Pneumonia, Syncope Additional Past Medical History / Comment(s): CARDOSO'S esophagus, Esaphageal cancer-completed the last of 28 tx on 09-08-17 and has had so far 5 chemo tx last on was last thu09/02/17. pt's stated his weight has gone down from 201 to 183 over 6 weeks. 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 Past Psychological History: No Psychological Hx Reported Smoking Status: Never smoker Past Alcohol Use History: Occasional Additional Past Alcohol Use History / Comment(s): no alcohol lately but did occ Past Drug Use History: None Reported - Past Family History Mother Family Medical History: Cancer Additional Family Medical History / Comment(s): Thyroid cancer. Father Family Medical History: Coronary Artery Disease (CAD) Additional Family Medical History / Comment(s): AT AGE 53 Medications and Allergies Home Medications Medication Instructions Recorded Confirmed Type Cetirizine HCl 10 mg PO DAILY PRN 07/05/15 01/10/18 History Nitroglycerin Sl Tabs [Nitrostat] 0.4 mg SUBLINGUAL Q5M PRN 07/05/15 01/10/18 History Metoprolol Tartrate [Lopressor] 25 mg PO DAILY 09/01/17 01/10/18 History Pravastatin Sodium [Pravachol] 80 mg PO HS 09/01/17 01/10/18 History Gabapentin [Neurontin] 900 mg PO TID 09/09/17 01/10/18 History Allopurinol [Zyloprim] 100 mg PO DAILY 09/24/17 01/10/18 History Insulin Glargine,Hum.rec.anlog 14 unit SQ PC-SUPPER 09/24/17 01/10/18 History [Lantus Solostar] Insulin Glargine,Hum.rec.anlog 14 units SQ QAM 09/24/17 01/10/18 History [Lantus Solostar] Insulin Lispro [humaLOG Kwikpen] See Protocol SQ ACHS 09/24/17 01/10/18 History Potassium Chloride ER [K-Dur 10] 10 meq PO DAILY 09/24/17 01/10/18 History Spironolactone [Aldactone] 12.5 mg PO DAILY 09/24/17 01/10/18 History Torsemide [Demadex] 100 mg PO DAILY 09/24/17 01/10/18 History Zolpidem [Ambien] 10 mg PO HS PRN 09/24/17 01/10/18 History metFORMIN HCL [Glucophage] 1,000 mg PO BID 09/24/17 01/10/18 History Aspirin EC [Ecotrin Low Dose] 81 mg PO DAILY 12/24/17 01/10/18 History predniSONE 20 mg PO BID 12/24/17 01/10/18 History traMADol HCL/ACETAMINOPHEN 1 - 2 tab PO DAILY PRN 12/24/17 01/10/18 History [Ultracet 37.5-325] Cyclobenzaprine [Flexeril] 5 mg PO TID 01/10/18 01/10/18 History INSULIN LISPRO (HumaLOG) [HumaLOG] 12 - 14 unit SQ ACHS 01/10/18 01/10/18 History Allergies Allergy/AdvReac Type Severity Reaction Status Date / Time latex Allergy Itching Verified 01/10/18 12:14 penicillin G Allergy Rash/Hives Verified 01/10/18 12:14 Physical Exam Vitals: Vital Signs Temp Pulse Pulse Resp BP Pulse Ox 01/11/18 15:50 77 16 01/11/18 15:39 74 16 98 01/11/18 15:00 97.0 F L 79 16 136/68 98 01/11/18 11:31 76 01/11/18 11:22 72 01/11/18 08:00 18 01/11/18 07:24 76 01/11/18 07:14 72 97 01/11/18 07:00 97.7 F 71 16 147/70 94 L 01/10/18 23:00 97.8 F 74 20 155/67 97 01/10/18 20:37 72 01/10/18 20:20 72 Intake and Output 01/11/18 01/11/18 01/11/18 06:59 14:59 22:59 Other: # Voids 1 2 Weight 75.296 kg Head exam was generally normal. There was no scleral icterus or corneal arcus. Mucous membranes were moist. Neck was supple and without jugular venous distension, thyromegaly, or carotid bruits. Carotids were easily palpable bilaterally. There was no adenopathy. Lungs sounds are diminished and the patient has coarse crackles at lung bases bilaterally more so on the left Cardiac exam revealed the PMI to be normally situated and sized. The rhythm was regular and no extrasystoles were noted during several minutes of auscultation. The first and second heart sounds were normal and physiologic splitting of the second heart sound was noted. There were no murmurs, rubs, clicks, or gallops. Abdominal exam revealed normal bowel sounds. The abdomen was soft, non-tender, and without masses, organomegaly, or appreciable enlargement of the abdominal aorta. Examination of the extremities revealed easily palpable radial, femoral and pedal pulses. There was no cyanosis, clubbing or edema. Examination of the skin revealed no evidence of significant rashes, suspicious appearing nevi or other concerning lesions. Neurologically the patient is awake and alert and there is no focal neurological deficit Results - Laboratory Findings CBC and BMP: 01/11/18 07:55 01/11/18 07:55 PT/INR, D-dimer PT 9.9 sec (9.0-12.0) 01/09/18 23:40 INR 1.0 (<1.2) 01/09/18 23:40 Abnormal lab findings: Abnormal Labs 01/09/18 01/09/18 01/09/18 23:40 23:40 23:40 RDW 20.0 H Plt Count Neutrophils # 8.6 H Lymphocytes # 0.3 L APTT Chloride BUN 46 H Creatinine 1.30 H Glucose 129 H POC Glucose (mg/dL) Plasma Lactic Acid Nestor Total Creatine Kinase 34 L 01/09/18 01/09/18 01/10/18 23:40 23:40 00:03 RDW Plt Count Neutrophils # Lymphocytes # APTT 21.8 L Chloride BUN Creatinine Glucose POC Glucose (mg/dL) 110 H Plasma Lactic Acid Nestor 6.3 H* Total Creatine Kinase 01/10/18 01/10/18 01/10/18 04:00 06:43 10:30 RDW Plt Count Neutrophils # Lymphocytes # APTT Chloride BUN Creatinine Glucose POC Glucose (mg/dL) 108 H Plasma Lactic Acid Nestor 2.6 H* 3.5 H* Total Creatine Kinase 01/10/18 01/10/18 01/10/18 12:00 14:32 17:10 RDW Plt Count Neutrophils # Lymphocytes # APTT Chloride BUN Creatinine Glucose POC Glucose (mg/dL) 145 H 221 H Plasma Lactic Acid Nestor 3.9 H* Total Creatine Kinase 01/10/18 01/11/18 01/11/18 20:39 07:08 07:55 RDW 20.1 H Plt Count 131 L Neutrophils # Lymphocytes # 0.4 L APTT Chloride BUN Creatinine Glucose POC Glucose (mg/dL) 176 H 121 H Plasma Lactic Acid Nestor Total Creatine Kinase 01/11/18 01/11/18 01/11/18 07:55 07:55 12:21 RDW Plt Count Neutrophils # Lymphocytes # APTT Chloride 110 H BUN 22 H Creatinine Glucose 143 H POC Glucose (mg/dL) Plasma Lactic Acid Nestor 3.0 H* 3.0 H* Total Creatine Kinase 01/11/18 12:35 RDW Plt Count Neutrophils # Lymphocytes # APTT Chloride BUN Creatinine Glucose POC Glucose (mg/dL) 119 H Plasma Lactic Acid Nestor Total Creatine Kinase - Diagnostic Findings Chest x-ray: image reviewed CT scan - chest: image reviewed Assessment and Plan Plan: Assessment 1 bilateral lower lobe pneumonia suspected. 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 However, he presented with new onset shortness of breath and cough and congestion and some mild lactic acidosis and this obviously raises the concern of a pneumonia especially of the left lower lobe. 2 radiation pneumonitis currently on oral prednisone at a dose of 40 mg on a daily basis 3 esophagus adenocarcinoma, details discussed above 4 diabetes mellitus 5 hypertension 6 hyperlipidemia 7 peripheral neuropathy 8 carotid artery disease with complete occlusion of the left carotid artery 9 shingles 10 osteoarthritis Plan Cover the patient with Levaquin 750 May grams by mouth daily in addition to aztreonam. This will give the patient double antibiotic coverage. Continue bronchodilators. Continue prednisone at a dose of 40 g by mouth daily. We'll monitor this patient on a regular basis. We'll continue to follow. We'll consult oncology.
--- NOTE | 2018-01-11 16:40 | PN ---
PROGRESS NOTE DATE OF SERVICE: 01/11/2018 This 82-year-old gentleman admitted with near-syncope and cough also thought to have bibasilar pneumonia, possibly gram-negative. Patient lactic acid also elevated indicating possible sepsis. Multiple consultants are following the patient closely. The patient had a CT scan of the chest, which showed no interval changes and emphysematous changes and bibasilar atelectasis changes also. Pulmonary is following the patient closely. PAST MEDICAL HISTORY: Reviewed. REVIEW OF SYSTEMS: CARDIOVASCULAR: No angina. RESPIRATORY: As mentioned earlier. GI: No nausea. : No dysuria. NERVOUS SYSTEM: No numbness or weakness. CURRENT MEDICATIONS: 1. Tylenol 650 q.6h p.r.n. 2. Tylenol #3. 3. DuoNeb q.i.d. and p.r.n. 4. Zyloprim 100 mg. 5. Aspirin 81 mg. 6. Aztreonam 2 g IV q.8. 7. Flexeril. 8. Neurontin. 9. Heparin. 10.Novolin. 11.Levemir 40 units subcu b.i.d. 12.Levaquin 750 p.o. daily. 13.Lopressor 25 mg. 14.Nitrostat. 15.K-Dur. 16.Prednisone. 17.Aldactone. 18.Demadex. 19.Ambien. PHYSICAL EXAM: Patient is alert, oriented x3. The pulse is 79, blood pressure 130/60, respirations 16, temperature 97 degrees, pulse ox 98% on 2 L. HEENT: Conjunctivae normal. Oral mucosa moist. NECK: No jugular venous distention. No carotid bruit. No lymph node enlargement. CARDIOVASCULAR: S1, S2 RESPIRATORY: Breath sounds diminished in the bases. A few scattered rhonchi and crackles. Expiratory wheezing also present. ABDOMEN: Soft, nontender. LEGS: No edema. NERVOUS SYSTEM: No focal deficits. LABS: WBC 5.2, hemoglobin 13.1, platelets 130. The lactic acid 3. ASSESSMENT: 1. Bibasilar pneumonia possibly gram-negative with possible early sepsis. 2. Increased creatinine with acute renal failure possibly prerenal. 3. Diabetes mellitus type 2. 4. History of gastroesophageal reflux disease. 5. Hypertension. 6. Hyperlipidemia. 7. History of degenerative joint disease. 8. History of pneumonia. 9. History of syncope. 10.History of gout. 11.History of Hernandez's esophagus. 12.History of esophageal cancer status post chemo. 13.History of hiatal hernia. 14.History of nephrolithiasis. RECOMMENDATIONS AND DISCUSSION: I recommend to continue current management and symptomatic treatment. Otherwise at this time, I recommend follow closely with Pulmonary. Broad-spectrum IV antibiotics. Follow the cultures. Infectious Disease evaluation. Repeat lactic acid. Fluid boluses given. The prognosis guarded because of multiple complex medical issues and further recommendations to follow. MMODL / IJN: [id number] /
[2018-01-11 16:59] LABS: Glucose,Whole Blood 221 mg/dL (75-99)
--- NOTE | 2018-01-11 18:04 | P.CONS ---
History of Present Illness - Reason for Consult Consult date: 01/11/18 Esophageal ca. Admitted with pneumonia - History of Present Illness This is an 82 yr old WM ,known to have Cardoso esophagous,underwent endoscopic mucosal resection and radiofrequency ablation,last one was on 12/08/[address] Ramos at [facility]. He presented with mild intermittent dysphagea,had repeat EGD on 04/30/2017 was found to have a small lesion at distal esophagous,biopsy was positive for adenocarcinoma. PET scan done on 05/30/2017 revealed faint uptake at distal esophagous, otherwise negative. EUS on 06/12/2017 revealed a mass at distal esophagous about 3.5mm thick,into muscularis propria,there were 3 middle paraesopahgeal suspicious nodes,largest about 12mm On 07/02/2017,he had EMR at [facility],pathology revealed invasive carcinoma involving lateral and deep margins,HER2/GABI negative. He was referred back to Dr Resendez to consider chemoradiation. After discussion about neoadjuvant chemoradiation vs definitive chemoradiation, he decided to proceed with definitive chemoradiation. He started concurrent chemoradiation on 07/29/2017 and completed on 09/02/2017, with Carbo/taxol weekly as the chemo arm. Repeat PET scan on 10/23/2017 revealed no evidence of malignancy,some inflammatory changes in the lung,likely related to recent XRT. He was then placed on observation. He has been complaining of slowly progressive shortness of breath and fatigue , over the last 3-4 weeks. Over the last week, he developed fairly significant chest congestion, and cough that was productive of mostly whitish sputum with occasional yellowish color. He therefore came into the emergency room where chest imaging indicated bilateral pneumonia. He was therefore admitted for further management, and consult placed. She denied any actual fevers or chills. He had an episode of feeling of obstruction in swallowing, about 5-6 weeks ago. Otherwise he states that his swallowing has been fairly normal with all types of food and denies any episodes of obstruction or choking. Review of Systems Constitutional: Reports fatigue, Reports weakness, Reports weight loss Eyes: denies blurred vision, denies pain Ears: deny: decreased hearing, ear discharge, earache, tinnitus Ears, nose, mouth and throat: Denies headache, Denies sore throat Cardiovascular: Denies chest pain, Denies shortness of breath Respiratory: Reports congestion, Reports cough, Reports dyspnea Gastrointestinal: Denies abdominal pain, Denies diarrhea, Denies nausea, Denies vomiting Genitourinary: Reports urinary frequency Musculoskeletal: Reports muscle weakness, Denies myalgias Integumentary: Denies pruritus, Denies rash Neurological: Reports weakness, Denies numbness Psychiatric: Denies anxiety, Denies depression Endocrine: Denies fatigue, Denies weight change Hematologic/Lymphatic: Reports as per HPI Past Medical History Past Medical History: Cancer, Diabetes Mellitus, GERD/Reflux, Hyperlipidemia, Hypertension, Osteoarthritis (OA), Pneumonia, Syncope Additional Past Medical History / Comment(s): gout, CARDOSO'S esophagus, Esaphageal cancer-completed the last of 28 tx on 09-08-17 and has had so far 5 chemo tx last on was last thu09/02/17. pt's stated his weight has gone down from 201 to 183 over 6 weeks. has been drinking vanillia premier protein shakes daily am.hiatal hernia, kidney stones 40 years ago,pne 20 years ago, neuropathy, past stomach ulcers,"lt carotid 100% blkg, shingelles -2016 History of Any Multi-Drug Resistant Organisms: None Reported Past Surgical History: Heart Catheterization, Hernia Repair, Orthopedic Surgery Additional Past Surgical History / Comment(s): LILA shoulder rotator CUFF, ORIF LT FOOT thinks he has plate and screws, "esophagus radiofrequency ablation", lila cataracts-lens implants Past Anesthesia/Blood Transfusion Reactions: No Reported Reaction Additional Past Anesthesia/Blood Transfusion Reaction / Comm: . Past Psychological History: No Psychological Hx Reported Smoking Status: Never smoker Past Alcohol Use History: Occasional Additional Past Alcohol Use History / Comment(s): no alcohol lately but did occ Past Drug Use History: None Reported - Past Family History Mother Family Medical History: Cancer Additional Family Medical History / Comment(s): Thyroid cancer. Father Family Medical History: Coronary Artery Disease (CAD) Additional Family Medical History / Comment(s): AT AGE 53 Medications and Allergies Home Medications Medication Instructions Recorded Confirmed Type Cetirizine HCl 10 mg PO DAILY PRN 07/05/15 01/10/18 History Nitroglycerin Sl Tabs [Nitrostat] 0.4 mg SUBLINGUAL Q5M PRN 07/05/15 01/10/18 History Metoprolol Tartrate [Lopressor] 25 mg PO DAILY 09/01/17 01/10/18 History Pravastatin Sodium [Pravachol] 80 mg PO HS 09/01/17 01/10/18 History Gabapentin [Neurontin] 900 mg PO TID 09/09/17 01/10/18 History Allopurinol [Zyloprim] 100 mg PO DAILY 09/24/17 01/10/18 History Insulin Glargine,Hum.rec.anlog 14 unit SQ PC-SUPPER 09/24/17 01/10/18 History [Lantus Solostar] Insulin Glargine,Hum.rec.anlog 14 units SQ QAM 09/24/17 01/10/18 History [Lantus Solostar] Insulin Lispro [humaLOG Kwikpen] See Protocol SQ ACHS 09/24/17 01/10/18 History Potassium Chloride ER [K-Dur 10] 10 meq PO DAILY 09/24/17 01/10/18 History Spironolactone [Aldactone] 12.5 mg PO DAILY 09/24/17 01/10/18 History Torsemide [Demadex] 100 mg PO DAILY 09/24/17 01/10/18 History Zolpidem [Ambien] 10 mg PO HS PRN 09/24/17 01/10/18 History metFORMIN HCL [Glucophage] 1,000 mg PO BID 09/24/17 01/10/18 History Aspirin EC [Ecotrin Low Dose] 81 mg PO DAILY 12/24/17 01/10/18 History predniSONE 20 mg PO BID 12/24/17 01/10/18 History traMADol HCL/ACETAMINOPHEN 1 - 2 tab PO DAILY PRN 12/24/17 01/10/18 History [Ultracet 37.5-325] Cyclobenzaprine [Flexeril] 5 mg PO TID 01/10/18 01/10/18 History INSULIN LISPRO (HumaLOG) [HumaLOG] 12 - 14 unit SQ ACHS 01/10/18 01/10/18 History Allergies Allergy/AdvReac Type Severity Reaction Status Date / Time latex Allergy Itching Verified 01/10/18 12:14 penicillin G Allergy Rash/Hives Verified 01/10/18 12:14 Physical Exam Vitals: Vital Signs Temp Pulse Pulse Resp BP Pulse Ox 01/11/18 07:24 76 01/11/18 07:14 72 97 01/11/18 07:00 97.7 F 71 16 147/70 94 L 01/10/18 23:00 97.8 F 74 20 155/67 97 01/10/18 20:37 72 01/10/18 20:20 72 01/10/18 15:38 70 01/10/18 15:27 70 01/10/18 15:00 96.8 F L 70 16 111/61 97 01/10/18 12:15 72 01/10/18 12:07 66 Intake and Output 01/10/18 01/11/18 01/11/18 22:59 06:59 14:59 Other: Voiding Method Toilet # Voids 1 1 - Constitutional General appearance: no acute distress - EENT Eyes: EOMI, PERRLA ENT: hearing grossly normal, normal oropharynx - Neck Neck: no lymphadenopathy Thyroid: bilateral: normal size - Respiratory Respiratory: bilateral: CTA - Cardiovascular Rhythm: regular Heart sounds: normal: S1, S2 - Gastrointestinal General gastrointestinal: normal bowel sounds, soft - Integumentary Integumentary: normal - Neurologic Neurologic: CNII-XII intact - Musculoskeletal Musculoskeletal: generalized weakness, strength equal bilaterally - Psychiatric Psychiatric: A&O x's 3, appropriate affect Results CBC & Chem 7: 01/11/18 07:55 01/11/18 07:55 Labs: Abnormal Lab Results - Last 24 Hours (Table) 01/10/18 01/10/18 01/10/18 Range/Units 10:30 12:00 14:32 RDW (11.5-15.5) % Plt Count (150-450) k/uL Lymphocytes # (1.0-4.8) k/uL Chloride (98-107) mmol/L BUN (9-20) mg/dL Glucose (74-99) mg/dL POC Glucose (mg/dL) 145 H (75-99) mg/dL Plasma Lactic Acid Nestor 3.5 H* 3.9 H* (0.7-2.0) mmol/L 01/10/18 01/10/18 01/11/18 Range/Units 17:10 20:39 07:08 RDW (11.5-15.5) % Plt Count (150-450) k/uL Lymphocytes # (1.0-4.8) k/uL Chloride (98-107) mmol/L BUN (9-20) mg/dL Glucose (74-99) mg/dL POC Glucose (mg/dL) 221 H 176 H 121 H (75-99) mg/dL Plasma Lactic Acid Nestor (0.7-2.0) mmol/L 01/11/18 01/11/18 01/11/18 Range/Units 07:55 07:55 07:55 RDW 20.1 H (11.5-15.5) % Plt Count 131 L (150-450) k/uL Lymphocytes # 0.4 L (1.0-4.8) k/uL Chloride 110 H (98-107) mmol/L BUN 22 H (9-20) mg/dL Glucose 143 H (74-99) mg/dL POC Glucose (mg/dL) (75-99) mg/dL Plasma Lactic Acid Nestor 3.0 H* (0.7-2.0) mmol/L Microbiology - Last 24 Hours (Table) 01/10/18 01:50 Blood Culture - Preliminary Blood No Growth after 24 hours 01/10/18 12:06 Gram Stain - Final Sputum Sputum Culture - Final Assessment and Plan (1) Pneumonia Narrative/Plan: The patient has been admitted with a diagnosis of possible pneumonia, based on his symptoms. Review of his CT scans and chest x-ray to report infiltrates. However there does not appear to be a definite new finding. He has been started on antibiotics, as well as oxygen, breathing treatments and by mouth steroids. Pulmonary medicine is following. Defer to them for ongoing treatment. Radiation pneumonitis can also be a concern, though based on lack of new infiltrative changes on imaging, is less likely. He does not give any history that is strongly suggestive of obstruction/aspiration. Current Visit: Yes Status: Acute Code(s): J18.9 - PNEUMONIA, UNSPECIFIED ORGANISM SNOMED Code(s): 738289724 (2) Adenocarcinoma of esophagus, stage 3 Narrative/Plan: The patient has completed chemoradiation, with PET scan subsequently showing no evidence of disease. He is currently on follow-up. He is supposed to have a follow-up endoscopy. If there is concern for esophageal obstruction status aspiration, this can be considered as an inpatient. Blood counts are normal. Current Visit: No Status: Acute Priority: High Code(s): C15.9 - MALIGNANT NEOPLASM OF ESOPHAGUS, UNSPECIFIED SNOMED Code(s): 122336872
[2018-01-11 20:49] LABS: Glucose,Whole Blood 137 mg/dL (75-99)
[2018-01-11] MEDS: PRAVASTATIN SODIUM 80 MG TAB PO SCH (21:55)
[2018-01-11] MEDS: ZOLPIDEM 10 MG TAB PO PRN (21:56)
--- NOTE | 2018-01-11 21:58 | CONS ---
CONSULTATION REASON FOR CONSULTATION: Esophageal cancer. HISTORY OF PRESENT ILLNESS: The patient is an 82-year-old pleasant white male known to me from his previous hospitalizations and office visits diagnosed with cancer of esophagus and underwent an upper endoscopy in 2012 and he was doing well. He presented with dysphagia and he underwent upper endoscopy by me in April of 2017 and was noted to have lesion in the distal esophagus, biopsies of which revealed adenocarcinoma. He was subsequently referred to Dr. Augustin and he subsequently had endoscopic ultrasound of the pancreas that showed evidence of positive. He recently saw Dr. Resendez for chemoradiation which was started in July and ended 2 months ago. He was admitted to the hospital because of pneumonia and presently on broad-spectrum antibiotics. He denies any dysphagia. Reports no nausea, vomiting. He reports no abdominal pain. He does complain of shortness of breath with occasional cough. No fever, chills, or night sweats. PAST MEDICAL HISTORY: Significant for diabetes mellitus, hypertension, hyperlipidemia, degenerative joint disease. PAST SURGICAL HISTORY: Hernia repair, bilateral rotator cuff surgery, cardiac catheterization. MEDICATIONS: At home include the , Pravachol, Neurontin, Zyloprim, Lantus, Humalog, Aldactone, Demadex, Ambien, Glucophage, aspirin, Flexeril, Humalog. SOCIAL HISTORY: No smoking or alcohol use. FAMILY HISTORY: Mother had thyroid cancer, father had coronary artery disease. REVIEW OF SYSTEMS: CARDIOPULMONARY: No chest pain or shortness of breath. GENITOURINARY: The patient has no hematuria. NEUROLOGY: Unremarkable. PSYCHIATRY: Unremarkable. CONSTITUTIONAL: Denies any weight loss. No fever, chills, night sweats. ONCOLOGY: As mentioned above. ENDOCRINOLOGY: Diabetes mellitus. PHYSICAL EXAM: Patient is comfortable, no apparent distress. VITAL SIGNS: Stable. Blood pressure is 136/68, pulse rate 79, temperature 97.8. HEENT examination unremarkable. Conjunctivae pink. Sclerae anicteric. Oral cavity, no lesions. NECK: No JVD or lymph node enlargement. Chest was clear to auscultation. HEART: Regular rate and rhythm. ABDOMEN: Soft, it was nontender, nondistended. Bowel sounds are positive. No organomegaly. EXTREMITIES: No pedal edema. SKIN: No rashes. NEUROLOGIC: Alert, oriented x3. No focal deficits. LABS: WBC 9.5, hemoglobin 14.4, platelets normal. PT/INR is within normal limits. Basic metabolic panel is within normal limits. Lactic acid was 6.3, today it is 3. IMPRESSION: 1. Bilateral lower lobe pneumonia for which Dr. Brown is following the patient. He is presently on broad-spectrum antibiotics and feeling better. The patient is also on prednisone for . 2. History of esophageal cancer diagnosed in April 2017, status post resection that showed margins and possible localization, subsequent radiation and chemotherapy that ended 2 months ago. Presently doing well, dysphagia. 3. History of diabetes mellitus. 4. Hypertension. RECOMMENDATIONS: 1. Start on broad-spectrum antibiotics. 2. In regards to will consider proceeding with an upper endoscopy in the next few weeks as recommended by the oncologist. I will follow him closely during his hospital stay. Thank you for this consultation. NAE / SHAHRIARN: [id number] /
[2018-01-12] MEDS: AZTREONAM 2 GM in SODIUM CHLORIDE 0.9% 100 ML IVPB SCH ×3 (00:22→16:16)
[2018-01-12] MEDS: IPRATROPIUM-ALBUTEROL 3 ML NEB INHALATION SCH ×4 (07:14→19:14)
[2018-01-12 07:43] LABS: Glucose,Whole Blood 256 mg/dL (75-99)
[2018-01-12] MEDS: SODIUM CHLORIDE 0.9% 1,000 ML IV SCH (08:27)
[2018-01-12] MEDS: GABAPENTIN 300 MG CAP PO SCH ×3 (08:29→22:13)
[2018-01-12] MEDS: SPIRONOLACTONE 25 MG TAB PO SCH (08:29)
[2018-01-12] MEDS: CYCLOBENZAPRINE 5 MG TAB PO SCH ×3 (08:29→22:13)
[2018-01-12] MEDS: ASPIRIN 81 MG PO SCH (08:30)
[2018-01-12] MEDS: predniSONE 20 MG TAB PO SCH (08:31)
[2018-01-12] MEDS: LEVOFLOXACIN 750 MG TAB PO SCH (08:32)
[2018-01-12] MEDS: HEPARIN SODIUM,PORCINE 5,000 UNIT/ML 1 ML VIAL SQ SCH ×2 (08:32→22:13)
[2018-01-12] MEDS: POTASSIUM CHLORIDE ER 10 MEQ TAB.ER.PRT PO SCH (08:32)
[2018-01-12] MEDS: ALLOPURINOL 100 MG TAB PO SCH (08:32)
[2018-01-12] MEDS: METOPROLOL TARTRATE 25 MG TAB PO SCH (08:34)
[2018-01-12] MEDS: PANTOPRAZOLE 40 MG TABLET PO SCH ×2 (08:34→22:13)
--- NOTE | 2018-01-12 08:34 | P.PN ---
Subjective Progress Note Date: 01/12/18 Principal diagnosis: History of esophageal cancer 82-year-old gentleman with a history of esophageal cancer admitted with pneumonia. Presently denies dysphagia or odynophagia. No episodes of hematemesis on occasion melena. Tolerating diet. Objective - Vital Signs Vital signs: Vital Signs Temp 97.9 F 01/12/18 06:17 Pulse 80 01/12/18 07:25 Resp 17 01/12/18 06:17 BP 144/77 01/12/18 06:17 Pulse Ox 96 01/12/18 06:17 Intake & Output 01/11/18 01/12/18 01/12/18 18:59 06:59 18:59 Weight 75.296 kg Other: # Voids 2 3 - Exam General appearance: The patient is alert, oriented, in no acute distress. HET: Head is normocephalic and atraumatic. Pupils are equal and reactive. Oropharynx is clear without lesions. Neck: Supple without lymphadenopathy. Trachea midline. Heart: S1 S2. Regular rate and rhythm. Lungs: No crackles or wheezes are heard. Abdomen: Soft, nontender, nondistended with bowel sounds. No peritoneal signs. No palpable organomegaly or masses. Extremities: Normal skin color and turgor. No cyanosis, rash, ulceration, clubbing, or edema. Radial and pedal pulses are 2/4 bilaterally. Neurological: No focal deficits. Strength and sensation are grossly intact. - Labs CBC & Chem 7: 01/12/18 08:33 01/12/18 08:33 Labs: Abnormal Lab Results - Last 24 Hours (Table) 01/10/18 01/11/18 01/11/18 Range/Units 10:30 07:55 12:21 POC Glucose (mg/dL) (75-99) mg/dL Hemoglobin A1c 7.7 H (4.0-6.0) % Plasma Lactic Acid Nestor 3.0 H* 3.0 H* (0.7-2.0) mmol/L 01/11/18 01/11/18 01/11/18 Range/Units 12:35 16:57 20:46 POC Glucose (mg/dL) 119 H 221 H 137 H (75-99) mg/dL Hemoglobin A1c (4.0-6.0) % Plasma Lactic Acid Nestor (0.7-2.0) mmol/L 01/12/18 Range/Units 07:40 POC Glucose (mg/dL) 256 H (75-99) mg/dL Hemoglobin A1c (4.0-6.0) % Plasma Lactic Acid Nestor (0.7-2.0) mmol/L Microbiology - Last 24 Hours (Table) 01/10/18 01:50 Blood Culture - Preliminary Blood No Growth after 48 hours Assessment and Plan (1) History of esophageal cancer Current Visit: Yes Status: Acute Code(s): Z85.01 - PERSONAL HISTORY OF MALIGNANT NEOPLASM OF ESOPHAGUS SNOMED Code(s): 403976543 (2) Pneumonia Current Visit: Yes Status: Acute Code(s): J18.9 - PNEUMONIA, UNSPECIFIED ORGANISM SNOMED Code(s): 694791085 Plan: 1. Continue present medical therapy. EGD tomorrow if agreeable with pulmonology. Will obtain preoperative pulmonary clearance. Assessment and plan a care discussed with Dr. Smith
[2018-01-12] MEDS: TORSEMIDE 20 MG TAB PO SCH (08:35)
[2018-01-12] MEDS: INSULIN DETEMIR 100 UNIT/ML 10 ML VIAL SQ SCH ×2 (08:38→22:20)
[2018-01-12] MEDS: INSULIN ASPART 100 UNIT/ML 1 ML 10 ML VIAL SQ SCH ×8 (08:40→22:27)
[2018-01-12 09:04] LABS: Anisocytosis Moderate; Basophils % (A) 0 %; Eosinophils % (A) 0 %; HCT 42.1 % (39.0-53.0); HGB 12.9 gm/dL (13.0-17.5); Hypochromasia Slight; Lymphocytes # (A) 0.3 k/uL (1.0-4.8); Lymphocytes % (A) 6 %; MCH 27.2 pg (25.0-35.0); MCHC 30.7 g/dL (31.0-37.0); MCV 88.5 fL (80.0-100.0); Mean Platelet Volume 7.5; Monocytes # (A) 0.3 k/uL (0-1.0); Monocytes % (A) 6 %; Neutrophils # (A) 4.8 k/uL (1.3-7.7); Neutrophils % (A) 87 %; Platelet Count 119 k/uL (150-450); RBC 4.75 m/uL (4.30-5.90); RDW 20.5 % (11.5-15.5); WBC 5.5 k/uL (3.8-10.6)
[2018-01-12 09:16] LABS: Calcium 8.5 mg/dL (8.4-10.2); Potassium 4.4 mmol/L (3.5-5.1)
--- NOTE | 2018-01-12 09:25 | P.PN ---
Subjective Progress Note Date: 01/12/18 On today's evaluation of 01/12/2018, the patient is doing slightly better. He hasn't done a whole lot of activity. He has no chest pain. His cough is subsided. No significant chest congestion. No hemoptysis or pleurisy. No fever chills or night sweats. He is on a combination of antibiotics with Levaquin and he is also on oral prednisone that was given to him for chronic radiation pneumonitis. No nausea. No vomiting. No diarrhea. No other complaints otherwise for now. Objective - Vital Signs Vital signs: Vital Signs Temp 97.9 F 01/12/18 06:17 Pulse 80 01/12/18 07:25 Resp 17 01/12/18 06:17 BP 144/77 01/12/18 06:17 Pulse Ox 96 01/12/18 06:17 Intake & Output 01/11/18 01/12/18 01/12/18 18:59 06:59 18:59 Weight 75.296 kg Other: # Voids 2 3 - Exam Gen. appearance, comfortable likely distress Head exam was generally normal. There was no scleral icterus or corneal arcus. Mucous membranes were moist. Neck was supple and without jugular venous distension, thyromegaly, or carotid bruits. Carotids were easily palpable bilaterally. There was no adenopathy. Examination of the lungs reveals coarse crackles in lung bases bilaterally. Crackles are worse in the left lung base. Cardiac exam revealed the PMI to be normally situated and sized. The rhythm was regular and no extrasystoles were noted during several minutes of auscultation. The first and second heart sounds were normal and physiologic splitting of the second heart sound was noted. There were no murmurs, rubs, clicks, or gallops. Abdominal exam revealed normal bowel sounds. The abdomen was soft, non-tender, and without masses, organomegaly, or appreciable enlargement of the abdominal aorta. Examination of the extremities revealed easily palpable radial, femoral and pedal pulses. There was no cyanosis, clubbing or edema. - Labs CBC & Chem 7: 01/12/18 08:33 01/12/18 08:33 Labs: Abnormal Lab Results - Last 24 Hours (Table) 01/10/18 01/11/18 01/11/18 Range/Units 10:30 12:21 12:35 Hgb (13.0-17.5) gm/dL MCHC (31.0-37.0) g/dL RDW (11.5-15.5) % Plt Count (150-450) k/uL Lymphocytes # (1.0-4.8) k/uL BUN (9-20) mg/dL Glucose (74-99) mg/dL POC Glucose (mg/dL) 119 H (75-99) mg/dL Hemoglobin A1c 7.7 H (4.0-6.0) % Plasma Lactic Acid Nestor 3.0 H* (0.7-2.0) mmol/L 01/11/18 01/11/18 01/12/18 Range/Units 16:57 20:46 07:40 Hgb (13.0-17.5) gm/dL MCHC (31.0-37.0) g/dL RDW (11.5-15.5) % Plt Count (150-450) k/uL Lymphocytes # (1.0-4.8) k/uL BUN (9-20) mg/dL Glucose (74-99) mg/dL POC Glucose (mg/dL) 221 H 137 H 256 H (75-99) mg/dL Hemoglobin A1c (4.0-6.0) % Plasma Lactic Acid Nestor (0.7-2.0) mmol/L 01/12/18 01/12/18 Range/Units 08:33 08:33 Hgb 12.9 L (13.0-17.5) gm/dL MCHC 30.7 L (31.0-37.0) g/dL RDW 20.5 H (11.5-15.5) % Plt Count 119 L (150-450) k/uL Lymphocytes # 0.3 L (1.0-4.8) k/uL BUN 36 H (9-20) mg/dL Glucose 341 H (74-99) mg/dL POC Glucose (mg/dL) (75-99) mg/dL Hemoglobin A1c (4.0-6.0) % Plasma Lactic Acid Nestor (0.7-2.0) mmol/L Microbiology - Last 24 Hours (Table) 01/10/18 01:50 Blood Culture - Preliminary Blood No Growth after 48 hours Assessment and Plan Plan: Assessment 1 bilateral lower lobe pneumonia suspected. 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 However, he presented with new onset shortness of breath and cough and congestion and some mild lactic acidosis and this obviously raises the concern of a pneumonia especially of the left lower lobe. 2 radiation pneumonitis currently on oral prednisone at a dose of 40 mg on a daily basis 3 esophagus adenocarcinoma, details discussed above 4 diabetes mellitus 5 hypertension 6 hyperlipidemia 7 peripheral neuropathy 8 carotid artery disease with complete occlusion of the left carotid artery 9 shingles 10 osteoarthritis Plan clinically improved. Continue same antibiotic coverage. Continue bronchodilators. Continue oral prednisone. We'll follow. Assess for home O2.
[2018-01-12] MEDS ORDERED: predniSONE 10 MG TAB PO ONE (10:45)
[2018-01-12 12:32] LABS: Glucose,Whole Blood 148 mg/dL (75-99)
--- NOTE | 2018-01-12 14:44 | PN ---
PROGRESS NOTE DATE OF SERVICE: 01/12/2018 This 82-year-old gentleman who was admitted bibasilar pneumonia also had elevated creatinine. No chest pain. No palpitations. No fever. Patient is seen by Gastroenterology who is planning endoscopy next week. No chest pain. No palpitations. No fever. EXAM: Alert and oriented x3. Pulse is 78, blood pressure 140/76, respiration 17, temperature 97.4, pulse ox 96% on 2 L. HEENT: Conjunctivae normal. NECK: No jugular venous distention. CARDIOVASCULAR: S1, S2 muffled. RESPIRATORY: Breath sounds diminished in the bases. A few scattered rhonchi and crackles. ABDOMEN: Soft, nontender. LEGS: No edema. NERVOUS SYSTEM: No focal deficits. LABS: WBC 5, hemoglobin 12.9, glucose 341. ASSESSMENT: 1. Bilateral pneumonia possibly gram-negative, possibly early sepsis. 2. Increased creatinine with acute renal failure possibly prerenal. 3. Diabetes mellitus type 2. 4. History of gastroesophageal reflux disease. 5. Hypertension. 6. Hyperlipidemia. 7. Degenerative joint disease. 8. History of pneumonia. 9. History of syncope. 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 11.History of esophageal cancer, status post chemo. 12.History of gout. 13.History of hiatal hernia. 14.History of nephrolithiasis. RECOMMENDATIONS AND DISCUSSION: I recommend to continue current management and symptomatic treatment. Otherwise at this time I recommend closely follow with Gastroenterology. Guarded prognosis because of multiple complex medical issues. Further recommendations to follow. MMODL / IJN: [id number] /
[2018-01-12 17:07] LABS: Glucose,Whole Blood 240 mg/dL (75-99)
--- NOTE | 2018-01-12 17:11 | CONS ---
CONSULTATION DATE OF SERVICE: 01/12/2018 REASON FOR CONSULTATION: Pneumonia and sepsis. HISTORY OF PRESENT ILLNESS: The patient is an 82-year-old male presenting to the ER at [facility] with the chief complaints of dizziness and weakness that have been going on for a couple of weeks now. The patient has a history of esophageal cancer. The patient is status post radiation and chemotherapy. The patient denies having any significant difficulty swallowing. However, occasionally he does have some choking and coughing after he eats. His symptom of dizziness has been associated with increasing shortness of breath with exertion. He did have a cough which is productive. No chest pain. No nausea. No vomiting and no diarrhea. With these symptoms, the patient was evaluated in the ER. On arrival in the ER, the patient had a chest x-ray which showed mild left lower lobe pneumonia compared to the old exam. The patient did have a CT of the chest subsequently completed which showed mild emphysematous changes with bibasilar atelectasis versus scarring. The patient did not have any fever or elevated white count on admission. The patient has a history of PENICILLIN ALLERGY. The patient has been started on Azactam 2 grams q.8 in addition to Levaquin. Infectious Disease was consulted for further recommendations regarding antibiotic therapy. REVIEW OF SYSTEMS: CONSTITUTIONAL: Positive for weakness along with chills. EYES: No complaint. ENT: No complaint. RESPIRATORY: As per HPI. CARDIOVASCULAR: No complaint. GENITOURINARY: No complaint. GASTROINTESTINAL: As per HPI. MUSCULOSKELETAL: No complaint. INTEGUMENTARY: No complaint. PSYCHOLOGICAL: No complaint. ENDOCRINE: No complaint. NEUROLOGICAL: No complaint. PAST MEDICAL HISTORY: 1. Esophageal cancer. 2. Hypertension. 3. Hyperlipidemia. 4. Gastroesophageal reflux disease. 5. Diabetes mellitus. 6. Osteoarthritis. 7. Pneumonia. PAST SURGICAL HISTORY: 1. Bilateral shoulder rotator cuff repair. 2. ORIF of the left foot. 3. Bilateral cataract surgery. 4. Heart catheterization. 5. Hernia repair. 6. EGD. 7. Esophageal biopsy. SOCIAL HISTORY: No history of smoking. Occasionally drinks. No drug use. FAMILY HISTORY: Mother with history of thyroid cancer. Father with history of coronary artery disease who at the age of 53. ALLERGIES: PENICILLIN with a rash. No history of anaphylaxis. CURRENT MEDICATIONS: 1. DuoNeb. 2. Zyloprim. 3. Aspirin. 4. Azactam. 5. Flexeril. 6. Neurontin. 7. Heparin. 8. NovoLog. 9. Levemir. 10.Levaquin. 11.Claritin. 12.Lopressor. 13.Nitrostat. 14.Protonix. 15.Pravachol. 16.Prednisone. 17.Aldactone. 18.Demadex. 19.Ambien. PHYSICAL EXAMINATION: His blood pressure is 115/67 with a pulse of 84, temperature 97.6. He is 99% on room air. General description is an elderly male lying in bed in no distress. No tachypnea or accessory muscle of respiration use. HEENT examination shows slight pallor. No scleral icterus. Oral mucosa membrane is dry. No pharyngeal erythema or thrush. NECK: Trachea is central. No thyromegaly. LUNGS: Unlabored breathing with decreased breath sounds at the bases. No wheeze. HEART: S1, S2. Regular rate and rhythm. ABDOMEN: Soft. No tenderness. No guarding or rigidity EXTREMITIES: No edema of the feet. SKIN EXAMINATION: No rash or mass palpable. Neurologically the patient is awake, alert, oriented x3. Mood and affect normal. LABS: Hemoglobin is 12.9, white count 5.5, BUN of 36, creatinine 1.25. Urine has been negative. Blood culture so far negative. Sputum culture currently pending. DIAGNOSTIC IMPRESSION AND PLAN: 1. Patient admitted to hospital with increasing shortness of breath in a patient also having a cough and dizziness with initial x-ray suggestive of a left lower lobe pneumonia, question of possible community-acquired pathogen. Underlying infectious aspiration pneumonia needs to be kept in mind because of history of esophageal cancer, status post chemoradiation and still having some problems with coughing and choking after he eats food. 2. The patient has a PENICILLIN ALLERGY. That will limit the number of antibiotics that could be safely used. However, there is no history of anaphylaxis. PLAN: 1. We will try to obtain sputum for Gram stain, culture and sensitivity, as initial sputum has been rejected by the micro lab. 2. We will discontinue Azactam, as underlying gram-negative pneumonia more likely community-acquired pathogen, and start the patient on Rocephin 1 gram daily and continue Levaquin. 3. Will follow up on the clinical condition and cultures to further adjust medication if needed. Thank you for this consultation. Will follow this patient along with you. MMODL / IJN: [id number] /
--- NOTE | 2018-01-12 17:32 | P.PN ---
Subjective Progress Note Date: 01/12/18 Principal diagnosis: Esophageal No acute events overnight, No acute complaints. No s/s active bleeding. Objective - Vital Signs Vital signs: Vital Signs Temp 97.6 F 01/12/18 15:00 Pulse 82 01/12/18 15:29 Resp 18 01/12/18 15:00 BP 115/67 01/12/18 15:00 Pulse Ox 99 01/12/18 15:00 Intake & Output 01/11/18 01/12/18 01/12/18 18:59 06:59 18:59 Weight 75.296 kg Other: # Voids 2 3 3 - Constitutional General appearance: Present: cooperative, no acute distress - EENT Eyes: Present: EOMI, dentition normal ENT: Present: NA/AT, normal oropharynx - Neck Details: supple Neck: Present: normal ROM - Respiratory Respiratory: bilateral: CTA - Cardiovascular Rhythm: regular Heart sounds: normal: S1, S2 - Gastrointestinal General gastrointestinal: Present: normal bowel sounds, soft, tenderness - Integumentary Integumentary: Present: pale - Neurologic Neurologic: Present: CNII-XII intact - Musculoskeletal Musculoskeletal: Present: generalized weakness, strength equal bilaterally - Psychiatric Psychiatric: Present: A&O x's 3, appropriate affect - Labs CBC & Chem 7: 01/12/18 08:33 01/12/18 08:33 Labs: Abnormal Lab Results - Last 24 Hours (Table) 01/11/18 01/12/18 01/12/18 Range/Units 20:46 07:40 08:33 Hgb 12.9 L (13.0-17.5) gm/dL MCHC 30.7 L (31.0-37.0) g/dL RDW 20.5 H (11.5-15.5) % Plt Count 119 L (150-450) k/uL Lymphocytes # 0.3 L (1.0-4.8) k/uL BUN (9-20) mg/dL Glucose (74-99) mg/dL POC Glucose (mg/dL) 137 H 256 H (75-99) mg/dL 01/12/18 01/12/18 01/12/18 Range/Units 08:33 12:20 16:59 Hgb (13.0-17.5) gm/dL MCHC (31.0-37.0) g/dL RDW (11.5-15.5) % Plt Count (150-450) k/uL Lymphocytes # (1.0-4.8) k/uL BUN 36 H (9-20) mg/dL Glucose 341 H (74-99) mg/dL POC Glucose (mg/dL) 148 H 240 H (75-99) mg/dL Microbiology - Last 24 Hours (Table) 01/10/18 01:50 Blood Culture - Preliminary Blood No Growth after 48 hours Assessment and Plan Plan: Assessment and Plan (1) Pneumonia Narrative/Plan: The patient has been admitted with a diagnosis of possible pneumonia, based on his symptoms. Review of his CT scans and chest x-ray to report infiltrates. However there does not appear to be a definite new finding. He has been started on antibiotics, as well as oxygen, breathing treatments and by mouth steroids. His symptoms appear to have improved since yesterday. - Pulmonary medicine is following. Defer to them for ongoing treatment. - Radiation pneumonitis can also be a concern, though based on lack of new infiltrative changes on imaging, is less likely. He does not give any history that is strongly suggestive of obstruction/aspiration. Current Visit: Yes Status: Acute Code(s): J18.9 - PNEUMONIA, UNSPECIFIED ORGANISM SNOMED Code(s): 649018163 (2) Adenocarcinoma of esophagus, stage 3 Narrative/Plan: The patient has completed chemoradiation, with PET scan subsequently showing no evidence of disease. He is currently on follow-up. He is supposed to have a follow-up endoscopy. - Plan for endoscopy with GI 01/13/18 Blood counts are normal. Continue to monitor CBC, S/S Bleeding. Current Visit: No Status: Acute Priority: High Code(s): C15.9 - MALIGNANT NEOPLASM OF ESOPHAGUS, UNSPECIFIED SNOMED Code(s): 727551137
[2018-01-12] MEDS: cefTRIAXone IN SWFI 1,000 MG/10 ML SYRINGE IVP SCH (17:40)
[2018-01-12 20:40] LABS: Glucose,Whole Blood 184 mg/dL (75-99)
[2018-01-12] MEDS: PRAVASTATIN SODIUM 80 MG TAB PO SCH (22:13)
[2018-01-12] MEDS: ZOLPIDEM 10 MG TAB PO PRN (22:20)
[2018-01-13] MEDS: AZTREONAM 2 GM in SODIUM CHLORIDE 0.9% 100 ML IVPB SCH ×2 (00:03→08:03)
[2018-01-13] MEDS: SODIUM CHLORIDE 0.9% 1,000 ML IV SCH (06:11)
[2018-01-13] MEDS: IPRATROPIUM-ALBUTEROL 3 ML NEB INHALATION SCH ×4 (07:04→18:59)
[2018-01-13 07:35] LABS: Glucose,Whole Blood 86 mg/dL (75-99)
[2018-01-13] MEDS: INSULIN ASPART 100 UNIT/ML 1 ML 10 ML VIAL SQ SCH ×8 (08:00→21:38)
[2018-01-13] MEDS: ALLOPURINOL 100 MG TAB PO SCH (08:03)
[2018-01-13] MEDS: ASPIRIN 81 MG PO SCH (08:03)
[2018-01-13] MEDS: GABAPENTIN 300 MG CAP PO SCH ×3 (08:03→21:33)
[2018-01-13] MEDS: METOPROLOL TARTRATE 25 MG TAB PO SCH (08:04)
[2018-01-13] MEDS: PANTOPRAZOLE 40 MG TABLET PO SCH ×2 (08:04→23:41)
[2018-01-13] MEDS: SPIRONOLACTONE 25 MG TAB PO SCH (08:04)
[2018-01-13] MEDS: predniSONE 10 MG TAB PO SCH (08:04)
[2018-01-13] MEDS: POTASSIUM CHLORIDE ER 10 MEQ TAB.ER.PRT PO SCH (08:04)
[2018-01-13] MEDS: CYCLOBENZAPRINE 5 MG TAB PO SCH ×3 (08:04→21:33)
[2018-01-13] MEDS: TORSEMIDE 20 MG TAB PO SCH (08:05)
[2018-01-13] MEDS: HEPARIN SODIUM,PORCINE 5,000 UNIT/ML 1 ML VIAL SQ SCH ×2 (08:17→21:33)
[2018-01-13 08:26] LABS: Anisocytosis Moderate; Basophils % (A) 0 %; Eosinophils # (A) 0.1 k/uL (0-0.7); Eosinophils % (A) 1 %; HCT 44.2 % (39.0-53.0); HGB 13.9 gm/dL (13.0-17.5); Hypochromasia Slight; Lymphocytes # (A) 0.6 k/uL (1.0-4.8); Lymphocytes % (A) 10 %; MCH 27.2 pg (25.0-35.0); MCHC 31.4 g/dL (31.0-37.0); MCV 86.5 fL (80.0-100.0); Mean Platelet Volume 7.5; Monocytes # (A) 0.4 k/uL (0-1.0); Monocytes % (A) 6 %; Neutrophils # (A) 5.3 k/uL (1.3-7.7); Neutrophils % (A) 81 %; Platelet Count 140 k/uL (150-450); RBC 5.11 m/uL (4.30-5.90); RDW 20.7 % (11.5-15.5); WBC 6.5 k/uL (3.8-10.6)
[2018-01-13 08:49] LABS: Calcium 8.7 mg/dL (8.4-10.2); Potassium 3.6 mmol/L (3.5-5.1)
[2018-01-13] MEDS: INSULIN DETEMIR 100 UNIT/ML 10 ML VIAL SQ SCH ×2 (09:34→21:35)
[2018-01-13 12:23] LABS: Glucose,Whole Blood 90 mg/dL (75-99)
--- NOTE | 2018-01-13 13:09 | P.PN ---
Subjective Progress Note Date: 01/13/18 Principal diagnosis: Bilateral lower lobe pneumonia with a history of previous chronic radiation pneumonia Patient seen again today 01/13/2018 in follow-up on the regular medical floor. He is awake and alert in no acute distress. He is breathing easier today as compared to yesterday. Maintaining good O2 saturations in the 90s on 2 L/m per nasal cannula. Continues with dry nonproductive cough. He has been afebrile. No leukocytosis. Hemodynamically stable. He does have a history of esophageal adenocarcinoma with previous radiation pneumonitis chronic changes. The plan is for follow-up EGD today. Objective - Vital Signs Vital signs: Vital Signs Temp 96.9 F L 01/13/18 06:20 Pulse 77 01/13/18 11:18 Resp 17 01/13/18 06:20 BP 125/71 01/13/18 06:20 Pulse Ox 97 01/13/18 06:20 Intake & Output 01/12/18 01/13/18 01/13/18 18:59 06:59 18:59 Other: # Voids 3 1 - Exam Gen. appearance, comfortable in no acute distress Head exam was generally normal. There was no scleral icterus or corneal arcus. Mucous membranes were moist. Neck was supple and without jugular venous distension, thyromegaly, or carotid bruits. Carotids were easily palpable bilaterally. There was no adenopathy. Examination of the lungs reveals coarse crackles in lung bases bilaterally. Crackles are worse in the left lung base. Cardiac exam revealed the PMI to be normally situated and sized. The rhythm was regular and no extrasystoles were noted during several minutes of auscultation. The first and second heart sounds were normal and physiologic splitting of the second heart sound was noted. There were no murmurs, rubs, clicks, or gallops. Abdominal exam revealed normal bowel sounds. The abdomen was soft, non-tender, and without masses, organomegaly, or appreciable enlargement of the abdominal aorta. Examination of the extremities revealed easily palpable radial, femoral and pedal pulses. There was no cyanosis, clubbing or edema. - Labs CBC & Chem 7: 01/13/18 08:01 01/13/18 08:01 Labs: Abnormal Lab Results - Last 24 Hours (Table) 01/12/18 01/12/18 01/13/18 Range/Units 16:59 20:39 08:01 RDW 20.7 H (11.5-15.5) % Plt Count 140 L (150-450) k/uL Lymphocytes # 0.6 L (1.0-4.8) k/uL BUN (9-20) mg/dL Creatinine (0.66-1.25) mg/dL POC Glucose (mg/dL) 240 H 184 H (75-99) mg/dL 01/13/18 Range/Units 08:01 RDW (11.5-15.5) % Plt Count (150-450) k/uL Lymphocytes # (1.0-4.8) k/uL BUN 43 H (9-20) mg/dL Creatinine 1.34 H (0.66-1.25) mg/dL POC Glucose (mg/dL) (75-99) mg/dL Microbiology - Last 24 Hours (Table) 01/10/18 01:50 Blood Culture - Preliminary Blood No Growth after 72 hours Assessment and Plan Assessment: Assessment 1 bilateral lower lobe pneumonia suspected. 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 However, he presented with new onset shortness of breath and cough and congestion and some mild lactic acidosis and this obviously raises the concern of a pneumonia especially of the left lower lobe. 2 radiation pneumonitis currently on oral prednisone at a dose of 30 mg on a daily basis 3 esophagus adenocarcinoma, details discussed above and plan for EGD today. 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 Brown. The patient is improving daily. We'll continue with his current treatment plan. The plan is for EGD today. Currently on ceftriaxone and Levaquin. ID is on the case as well. We will continue to follow and make further recommendations based on his clinical status. I, the cosigning physician, performed a history & physical examination of the patient. Lungs sounds with crackles in posterior bases more so on the left. Maintaining good O2 saturations in the 90s on 2 L/m per nasal cannula. I discussed the assessment and plan of care with my nurse practitioner, Heather Lara. I attest to the above note as dictated by her.
[2018-01-13] MEDS ORDERED: IV FLUID CONTINUATION 1,000 ML IV ONE (14:10)
[2018-01-13] MEDS ORDERED: LIDOCAINE 1% INJ 10MG/ML (20 ML MDV) ONE (14:10)
[2018-01-13] MEDS ORDERED: PROPOFOL 10 MG/ML 20 ML VIAL IV ONE (14:10)
--- NOTE | 2018-01-13 14:15 | PN ---
PROGRESS NOTE DATE OF SERVICE: 01/13/2018 REASON FOR FOLLOWUP: Pneumonia. INTERVAL HISTORY: The patient is afebrile. He seemed to be breathing slightly more comfortably. He continued have a cough with post drainage. Patient denies having any chest pain. No abdominal pain and no diarrhea. PHYSICAL EXAMINATION: Blood pressure 125/71 with a pulse of 69, temperature is 96.9, she is 97% on 2 L nasal cannula. General description is an elderly male, lying in bed in no distress. RESPIRATORY SYSTEM: Unlabored breathing with decreased breath sounds in the base, no wheeze. HEART: S1, S2. Regular rate and rhythm. ABDOMEN: Soft, no tenderness. LABS: Hemoglobin 13.8, white count 6.5 BUN of 43, creatinine 1.34. Sputum has been rejected. DIAGNOSTIC IMPRESSION AND PLAN: Patient admitted to the hospital with difficulty breathing, multifactorial with possible left lower lobe pneumonia, possible community-acquired. Patient at this time will be treated with Rocephin 1 g daily in addition to the Levaquin. Will try to obtain a sputum sample. Continue supportive care. MMODL / IJN: [id number] /
--- NOTE | 2018-01-13 14:21 | P.PCN ---
Date of Procedure: 01/13/18 Procedure(s) Performed: BRIEF HISTORY: Patient is a 82-year-old, pleasant, white male, admitted hospital with pneumonia. Presently on broad-spectrum]. He was diagnosed with stage III esophageal adenomacarcinoma in April 2017 following an EMR for distal esophageal lesion. The margins were positive and since he subsequently underwent radiation and chemotherapy that ended 2 months ago. He scheduled for an upper endoscopy today as a part of follow-up of esophageal adenocarcinoma . PROCEDURE PERFORMED: Esophagogastroduodenoscopy With biopsy. PREOPERATIVE DIAGNOSIS:Follow-up esophageal adenocarcinoma diagnosed about 2016 , status post radiation and chemotherapy]. IV sedation per anesthesia. PROCEDURE: After informed consent was obtained, the patient was brought into the endoscopy unit. IV sedation was administered by Anesthesia under continuous monitoring. Initially the Olympus GIF-140 video endoscope was inserted into the mouth. Esophagus intubated without any difficulty. It was gradually advanced into the stomach and duodenum and carefully examined. The bulb and the second part of the duodenum appeared normal. The scope at this time was withdrawn to the stomach, adequately insufflated with air, and upon careful examination, mucosa of the antrum, body, cardia and the fundus appeared normal. The scope was then withdrawn into the esophagus. The GE junction was located at 40 cm from the incisors. There was mild circumferential erythema the GE junction consistent with esophagitis. There was no evidence of esophageal mass. Masses were done from the distal esophagus. The rest of the esophagus appeared normal. Patient tolerated the procedure well. IMPRESSION: 1. No evidence of esophageal mass in the distal esophagus . 2. Mild erythema of the GE junction consistent with esophagitis. RECOMMENDATIONS: The findings of this examination were discussed with the patient as well as his family.. He was advised to follow with the biopsy results.
[2018-01-13] MEDS: cefTRIAXone IN SWFI 1,000 MG/10 ML SYRINGE IVP SCH (15:51)
[2018-01-13 17:03] LABS: Glucose,Whole Blood 408 mg/dL (75-99)
[2018-01-13 17:04] LABS: Glucose,Whole Blood 456 mg/dL (75-99)
--- NOTE | 2018-01-13 19:07 | P.PN ---
Subjective Progress Note Date: 01/13/18 Progress note being dictated for Dr. Quinn Interval history: This a 82-year-old gentleman admitted with bibasilar pneumonia , acute renal failure, and multiple other medical issues. Scheduled for F/U EGD today, in a patient with history of esophageal CA. Denies abdominal pain. Maintained on IV antibiotics as per infectious disease. Continues on nebulized bronchodilators, steroids .Breathing significantly improved. No cough. Denies chest pain, or palpitations. Afebrile. Creatinine 1.34. Objective - Vital Signs Vital signs: Vital Signs Temp 96.9 F L 01/13/18 06:20 Pulse 77 01/13/18 11:18 Resp 17 01/13/18 06:20 BP 125/71 01/13/18 06:20 Pulse Ox 97 01/13/18 06:20 Intake & Output 01/12/18 01/13/18 01/13/18 18:59 06:59 18:59 Other: # Voids 3 1 - Exam PHYSICAL EXAM: VITAL SIGNS: As above GENERAL: Sitting up in bed, no acute distress HEENT: Conjunctivae normal. eyes normal. Oral mucosa dry NECK: No JVD. No thyroid enlargement. No LNs CARDIOVASCULAR: S1, S2 muffled. No murmur RESPIRATION: Breath sounds diminished in the bases. No rhonchi , left basilar crackles. ABDOMEN: Soft, nontender . No guarding. no masses palpable. Bowel sounds heard. LEGS: No edema. no swelling PSYCHIATRY: Alert and oriented -3, mood and affect normal. NERVOUS SYSTEM: Cranial N 2-12 grossly normal. Moves all 4 limbs. Diffuse weakness No focal deficits. Skin: no ulcer no rash Joints: No active swelling. No inflammation. Lymphatic system. No LN neck axilla or groin. - Labs CBC & Chem 7: 01/13/18 08:01 01/13/18 08:01 Labs: Abnormal Lab Results - Last 24 Hours (Table) 01/12/18 01/12/18 01/12/18 Range/Units 12:20 16:59 20:39 RDW (11.5-15.5) % Plt Count (150-450) k/uL Lymphocytes # (1.0-4.8) k/uL BUN (9-20) mg/dL Creatinine (0.66-1.25) mg/dL POC Glucose (mg/dL) 148 H 240 H 184 H (75-99) mg/dL 01/13/18 01/13/18 Range/Units 08:01 08:01 RDW 20.7 H (11.5-15.5) % Plt Count 140 L (150-450) k/uL Lymphocytes # 0.6 L (1.0-4.8) k/uL BUN 43 H (9-20) mg/dL Creatinine 1.34 H (0.66-1.25) mg/dL POC Glucose (mg/dL) (75-99) mg/dL Microbiology - Last 24 Hours (Table) 01/10/18 01:50 Blood Culture - Preliminary Blood No Growth after 72 hours Assessment and Plan Assessment: 1. Bilateral pneumonia possibly gram-negative, possibly early sepsis with radiation pneumonitis 2. Acute renal failure, possibly prerenal 3. Diabetes mellitus type 2 4. Gastroesophageal reflux disease 5. History of esophageal cancer, status post chemo 6. History of Hernandez's esophagus 7. History of nephrolithiasis 8. Hypertension 9. Degenerative joint disease Plan: Continue on current medication regime ,monitoring and symptomatic treatment. NPO awaiting EGD. Discussed patient's diuretic therapy, patient denies history of NH, CHF,. Currently will discontinue diuretic therapy as renal function worsening. Antibiotics as per infectious disease, sputum culture pending. The impression and plan of care has been dictated as directed. : I performed a history and examination of this patient, discussed the same with the dictator. I agree with the dictator's note ,documented as a scribe. Any additional findings or plans will be noted.
[2018-01-13 21:27] LABS: Glucose,Whole Blood 223 mg/dL (75-99)
[2018-01-13] MEDS: PRAVASTATIN SODIUM 80 MG TAB PO SCH (21:33)
[2018-01-14] MEDS: SODIUM CHLORIDE 0.9% 1,000 ML IV SCH ×6 (00:56→20:58)
[2018-01-14] MEDS: FLUDROCORTISONE 0.1 MG TAB PO SCH ×2 (01:42→07:38)
[2018-01-14] MEDS: ZOLPIDEM 10 MG TAB PO PRN ×2 (01:44→23:11)
[2018-01-14] MEDS: IPRATROPIUM-ALBUTEROL 3 ML NEB INHALATION SCH ×4 (07:02→18:45)
[2018-01-14 07:16] LABS: Anisocytosis Moderate; Basophils % (A) 0 %; Eosinophils # (A) 0.1 k/uL (0-0.7); Eosinophils % (A) 2 %; HCT 42.7 % (39.0-53.0); HGB 13.6 gm/dL (13.0-17.5); Hypochromasia Slight; Lymphocytes # (A) 0.3 k/uL (1.0-4.8); Lymphocytes % (A) 6 %; MCH 27.5 pg (25.0-35.0); MCHC 31.8 g/dL (31.0-37.0); MCV 86.4 fL (80.0-100.0); Mean Platelet Volume 7.3; Monocytes # (A) 0.4 k/uL (0-1.0); Monocytes % (A) 7 %; Neutrophils # (A) 5.1 k/uL (1.3-7.7); Neutrophils % (A) 84 %; Platelet Count 124 k/uL (150-450); RBC 4.94 m/uL (4.30-5.90); RDW 20.5 % (11.5-15.5); WBC 6.1 k/uL (3.8-10.6)
[2018-01-14 07:28] LABS: Calcium 8.4 mg/dL (8.4-10.2); Potassium 3.6 mmol/L (3.5-5.1)
[2018-01-14] MEDS: METOPROLOL TARTRATE 25 MG TAB PO SCH (07:38)
[2018-01-14] MEDS: CYCLOBENZAPRINE 5 MG TAB PO SCH ×3 (07:38→21:25)
[2018-01-14] MEDS: ASPIRIN 81 MG PO SCH (07:38)
[2018-01-14] MEDS: HEPARIN SODIUM,PORCINE 5,000 UNIT/ML 1 ML VIAL SQ SCH ×2 (07:38→21:25)
[2018-01-14] MEDS: GABAPENTIN 300 MG CAP PO SCH ×3 (07:38→21:25)
[2018-01-14] MEDS: ALLOPURINOL 100 MG TAB PO SCH (07:38)
[2018-01-14] MEDS: predniSONE 10 MG TAB PO SCH (07:38)
[2018-01-14] MEDS: POTASSIUM CHLORIDE ER 10 MEQ TAB.ER.PRT PO SCH (07:38)
[2018-01-14] MEDS: PANTOPRAZOLE 40 MG TABLET PO SCH ×2 (07:38→21:25)
[2018-01-14] MEDS: INSULIN ASPART 100 UNIT/ML 1 ML 10 ML VIAL SQ SCH ×8 (07:39→21:52)
[2018-01-14] MEDS: INSULIN DETEMIR 100 UNIT/ML 10 ML VIAL SQ SCH ×2 (07:39→21:50)
[2018-01-14 07:43] LABS: Glucose,Whole Blood 116 mg/dL (75-99)
[2018-01-14] MEDS ORDERED: LEVOFLOXACIN 750 MG TAB PO SCH (09:00)
[2018-01-14 11:37] LABS: Glucose,Whole Blood 95 mg/dL (75-99)
[2018-01-14] MEDS ORDERED: SODIUM CHLORIDE 0.9% 500 ML IV ONE (12:06)
--- NOTE | 2018-01-14 12:17 | P.PN ---
Subjective Progress Note Date: 01/14/18 Principal diagnosis: Bilateral lower lobe pneumonia with a history of previous chronic radiation pneumonia Patient seen again today 01/13/2018 in follow-up on the regular medical floor. He is awake and alert in no acute distress. He is breathing easier today as compared to yesterday. Maintaining good O2 saturations in the 90s on 2 L/m per nasal cannula. Continues with dry nonproductive cough. He has been afebrile. No leukocytosis. Hemodynamically stable. He does have a history of esophageal adenocarcinoma with previous radiation pneumonitis chronic changes. The plan is for follow-up EGD today. The patient is seen today 01/14/2018 in follow-up on the regular medical floor. He is currently up in a chair at the bedside. He is awake and alert in no acute distress. He did have some issues with dizziness yesterday he was nothing by mouth for his EGD possibly some dehydration. EGD was performed and no evidence of esophageal mass in the distal esophagus was noted. There is some mild erythema of the GE junction consistent with esophagitis. Pathology is pending. Blood and sputum cultures reveal no growth. Count 86.1. Hemoglobin 13.6. Creatinine 1.03. Troponins are negative 2. Objective - Vital Signs Vital signs: Vital Signs Temp 96.7 F L 01/14/18 07:00 Pulse 73 01/14/18 11:15 Resp 18 01/14/18 07:00 BP 100/53 01/14/18 07:00 Pulse Ox 97 01/14/18 07:00 Intake & Output 01/13/18 01/14/18 01/14/18 18:59 06:59 18:59 Intake Total 500 Balance 500 Intake: Oral 500 Other: # Voids 3 1 - Exam Gen. appearance, comfortable in no acute distress Head exam was generally normal. There was no scleral icterus or corneal arcus. Mucous membranes were moist. Neck was supple and without jugular venous distension, thyromegaly, or carotid bruits. Carotids were easily palpable bilaterally. There was no adenopathy. Examination of the lungs reveals coarse crackles in lung bases bilaterally. Cardiac exam revealed the PMI to be normally situated and sized. The rhythm was regular and no extrasystoles were noted during several minutes of auscultation. The first and second heart sounds were normal and physiologic splitting of the second heart sound was noted. There were no murmurs, rubs, clicks, or gallops. Abdominal exam revealed normal bowel sounds. The abdomen was soft, non-tender, and without masses, organomegaly, or appreciable enlargement of the abdominal aorta. Examination of the extremities revealed easily palpable radial, femoral and pedal pulses. There was no cyanosis, clubbing or edema. - Labs CBC & Chem 7: 01/14/18 06:51 01/14/18 06:51 Labs: Abnormal Lab Results - Last 24 Hours (Table) 01/13/18 01/13/18 01/13/18 Range/Units 17:01 17:02 21:07 RDW (11.5-15.5) % Plt Count (150-450) k/uL Lymphocytes # (1.0-4.8) k/uL BUN (9-20) mg/dL POC Glucose (mg/dL) 408 H 456 H 223 H (75-99) mg/dL 01/14/18 01/14/18 01/14/18 Range/Units 06:51 06:51 07:16 RDW 20.5 H (11.5-15.5) % Plt Count 124 L (150-450) k/uL Lymphocytes # 0.3 L (1.0-4.8) k/uL BUN 39 H (9-20) mg/dL POC Glucose (mg/dL) 116 H (75-99) mg/dL Microbiology - Last 24 Hours (Table) 01/10/18 01:50 Blood Culture - Preliminary Blood No Growth after 96 hours Assessment and Plan Assessment: Assessment 1 bilateral lower lobe pneumonia suspected. 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 However, he presented with new onset shortness of breath and cough and congestion and some mild lactic acidosis and this obviously raises the concern of a pneumonia especially of the left lower lobe. 2 radiation pneumonitis currently on oral prednisone at a dose of 30 mg on a daily basis 3 esophagus adenocarcinoma, details discussed above and plan for EGD today. 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 Brown. The patient is cleared for discharge from the pulmonary standpoint. Complete his prednisone taper. Antibiotics per ID. I, the cosigning physician, performed a history & physical examination of the patient. Lungs sounds with crackles in posterior bases more so on the left. Maintaining good O2 saturations in the 90s on 2 L/m per nasal cannula. I discussed the assessment and plan of care with my nurse practitioner, Heather Lara. I attest to the above note as dictated by her.
--- NOTE | 2018-01-14 15:07 | P.PN ---
Subjective Progress Note Date: 01/14/18 Principal diagnosis: Esophageal No acute events overnight, Status Post EGD 01/13/18, feeling good today, able to tolerate PO intake. He has not moved bowels in a couple days, denies nausea. EGD did not identify previous mass. Appears to have findings consistent with esophagitis, biopsies pending. Objective - Vital Signs Vital signs: Vital Signs Temp 96.7 F L 01/14/18 07:00 Pulse 73 01/14/18 11:15 Resp 18 01/14/18 07:00 BP 100/53 01/14/18 07:00 Pulse Ox 97 01/14/18 07:00 Intake & Output 01/13/18 01/14/18 01/14/18 18:59 06:59 18:59 Intake Total 500 Balance 500 Intake: Oral 500 Other: # Voids 3 1 - Constitutional General appearance: Present: cooperative, no acute distress - EENT Eyes: Present: EOMI, PERRLA, dentition normal ENT: Present: hard of hearing, NA/AT, normal oropharynx - Neck Details: Supple, Trachea Midline Neck: Present: normal ROM - Respiratory Respiratory: bilateral: CTA (No increased effort noted) - Cardiovascular Rhythm: regular Heart sounds: normal: S1, S2 - Gastrointestinal General gastrointestinal: Present: normal bowel sounds, soft - Integumentary Integumentary: Present: pale - Neurologic Neurologic Comment(s): No focal Defects Neurologic: Present: CNII-XII intact - Musculoskeletal Musculoskeletal: Present: generalized weakness, strength equal bilaterally - Psychiatric Psychiatric: Present: A&O x's 3, appropriate affect, intact judgment & insight - Labs CBC & Chem 7: 01/14/18 06:51 01/14/18 06:51 Labs: Abnormal Lab Results - Last 24 Hours (Table) 01/13/18 01/13/18 01/13/18 Range/Units 17:01 17:02 21:07 RDW (11.5-15.5) % Plt Count (150-450) k/uL Lymphocytes # (1.0-4.8) k/uL BUN (9-20) mg/dL POC Glucose (mg/dL) 408 H 456 H 223 H (75-99) mg/dL 01/14/18 01/14/18 01/14/18 Range/Units 06:51 06:51 07:16 RDW 20.5 H (11.5-15.5) % Plt Count 124 L (150-450) k/uL Lymphocytes # 0.3 L (1.0-4.8) k/uL BUN 39 H (9-20) mg/dL POC Glucose (mg/dL) 116 H (75-99) mg/dL Microbiology - Last 24 Hours (Table) 01/10/18 01:50 Blood Culture - Preliminary Blood No Growth after 96 hours Assessment and Plan Plan: Assessment and Plan (1) Pneumonia Narrative/Plan: The patient has been admitted with a diagnosis of possible pneumonia, based on his symptoms. Review of his CT scans and chest x-ray to report infiltrates. However there does not appear to be a definite new finding. He has been started on antibiotics, as well as oxygen, breathing treatments and by mouth steroids. His symptoms appear to have improved since yesterday. - Pulmonary medicine is following. Defer to them for ongoing treatment. - Radiation pneumonitis can also be a concern, though based on lack of new infiltrative changes on imaging, is less likely. He does not give any history that is strongly suggestive of obstruction/aspiration. Current Visit: Yes Status: Acute Code(s): J18.9 - PNEUMONIA, UNSPECIFIED ORGANISM SNOMED Code(s): 965975471 (2) Adenocarcinoma of esophagus, stage 3 Narrative/Plan: The patient has completed chemoradiation, with PET scan subsequently showing no evidence of disease. He is currently on follow-up. He is supposed to have a follow-up endoscopy. - Status POst endoscopy with GI 01/13/18, No previous mass identified, consistent with Esophagitis, await Biopsy results. Blood counts are normal. Continue to monitor CBC, S/S Bleeding. Current Visit: No Status: Acute Priority: High Code(s): C15.9 - MALIGNANT NEOPLASM OF ESOPHAGUS, UNSPECIFIED SNOMED Code(s): 170455916
[2018-01-14] MEDS ORDERED: SENNOSIDES-DOCUSATE SODIUM 1 EACH TAB PO STA (16:07)
[2018-01-14] MEDS: cefTRIAXone IN SWFI 1,000 MG/10 ML SYRINGE IVP SCH (16:30)
[2018-01-14 17:45] LABS: Glucose,Whole Blood 308 mg/dL (75-99)
--- NOTE | 2018-01-14 17:54 | P.PN ---
Subjective Progress Note Date: 01/14/18 Progress note being dictated for Dr. Quinn Interval history: This a 82-year-old gentleman admitted with bibasilar pneumonia , acute renal failure, and multiple other medical issues. Scheduled for F/U EGD today, in a patient with history of esophageal CA. Denies abdominal pain. Maintained on IV antibiotics as per infectious disease. Continues on nebulized bronchodilators, steroids .Breathing significantly improved. No cough. Denies chest pain, or palpitations. Afebrile. Creatinine 1.34. 01/14/2018 under an EGD yesterday reporting no evidence of esophageal mass in the distal esophagus, esophagitis. Biopsies obtained, pathology pending. 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 Suspect volume depletion secondary to diuretics, volume depletion in addition to prior NPO status for endoscopy.Patient had been on large doses of diuretics at home which were discontinued. Afebrile, cultures currently negative. creatinine 1.03, troponins negative 3. Compression stockings initiated yesterday.Received 500 mL fluid bolus, in addition to maintenance IV. Denies chest pain, palpitations or increased shortness of breath. Currently denies lightheadedness dizziness or focal deficits. Renal function improving. Objective - Vital Signs Vital signs: Vital Signs Temp 97.6 F 01/14/18 15:00 Pulse 76 01/14/18 15:14 Resp 18 01/14/18 15:00 BP 127/70 01/14/18 15:00 Pulse Ox 98 01/14/18 15:00 Intake & Output 01/13/18 01/14/18 01/14/18 18:59 06:59 18:59 Intake Total 500 Balance 500 Intake: Oral 500 Other: # Voids 3 1 3 # Bowel Movements 0 - Exam PHYSICAL EXAM: VITAL SIGNS: As above GENERAL: Sitting up in bed, no acute distress HEENT: Conjunctivae normal. eyes normal. Oral mucosa moist NECK: No JVD. No thyroid enlargement. No LNs CARDIOVASCULAR: S1, S2 muffled. No murmur RESPIRATION: Breath sounds diminished in the bases. No rhonchi , Left posterior basilar crackles. ABDOMEN: Soft, nontender . No guarding. no masses palpable. Bowel sounds heard. LEGS: No edema. no swelling PSYCHIATRY: Alert and oriented -3, mood and affect normal. NERVOUS SYSTEM: Cranial N 2-12 grossly normal. Moves all 4 limbs. Diffuse weakness No focal deficits. Skin: no ulcer no rash Joints: No active swelling. No inflammation. Lymphatic system. No LN neck axilla or groin. - Labs CBC & Chem 7: 01/14/18 06:51 01/14/18 06:51 Labs: Abnormal Lab Results - Last 24 Hours (Table) 01/13/18 01/14/18 01/14/18 Range/Units 21:07 06:51 06:51 RDW 20.5 H (11.5-15.5) % Plt Count 124 L (150-450) k/uL Lymphocytes # 0.3 L (1.0-4.8) k/uL BUN 39 H (9-20) mg/dL POC Glucose (mg/dL) 223 H (75-99) mg/dL 01/14/18 Range/Units 07:16 RDW (11.5-15.5) % Plt Count (150-450) k/uL Lymphocytes # (1.0-4.8) k/uL BUN (9-20) mg/dL POC Glucose (mg/dL) 116 H (75-99) mg/dL Microbiology - Last 24 Hours (Table) 01/10/18 01:50 Blood Culture - Preliminary Blood No Growth after 96 hours Assessment and Plan Assessment: 1. Bilateral pneumonia possibly gram-negative, possibly early sepsis with radiation pneumonitis 2. Acute renal failure, possibly prerenal 3. Diabetes mellitus type 2 4. Gastroesophageal reflux disease 5. History of esophageal cancer, status post chemo 6. History of Hernandez's esophagus 7. History of nephrolithiasis 8. Hypertension 9. Degenerative joint disease 10. Dizziness secondary to volume depletion related to home diuretics-high- dose of Demadex, which has been discontinued. Plan: Continue on current medication regime , antibiotics, monitoring and symptomatic treatment. Maintain compression stockings. Increase maintenance IV fluids to 100 MLS per hour. Orthostatic vital signs every shift. Close monitoring overnight with discharge planning in progress for tomorrow. The impression and plan of care has been dictated as directed. : I performed a history and examination of this patient, discussed the same with the dictator. I agree with the dictator's note ,documented as a scribe. Any additional findings or plans will be noted.
[2018-01-14] MEDS: PRAVASTATIN SODIUM 80 MG TAB PO SCH (21:25)
[2018-01-14] MEDS: SENNOSIDES-DOCUSATE SODIUM 1 EACH TAB PO SCH (21:26)
[2018-01-14 21:45] LABS: Glucose,Whole Blood 155 mg/dL (75-99)
--- NOTE | 2018-01-14 23:22 | PN ---
PROGRESS NOTE DATE OF SERVICE: 01/14/2018 REASON FOR FOLLOWUP: Pneumonia. INTERVAL HISTORY: The patient is currently afebrile. She is breathing comfortably. Denies significant chest pain. Occasional cough. No abdominal pain and no diarrhea. EXAMINATION: Blood pressure 115/68 with a pulse of 80, temperature 97.6. He is 98% on 2L nasal cannula. General description is an elderly male lying in bed in no distress. RESPIRATORY SYSTEM: Unlabored breathing with decreased intensity of breath sounds. No wheeze. HEART: S1, S2. Regular rate and rhythm. ABDOMEN: Soft. No tenderness. LABS: Hemoglobin is 13.3, white count of 6.1. BUN of 39, creatinine 1.03. Sputum culture so far negative. DIAGNOSTIC IMPRESSION AND PLAN: The patient admitted to the hospital with difficulty breathing, multifactorial with a possible component of pneumonia. Sputum is currently usual respiratory yuridia. The patient is covered with Rocephin, Levaquin, with a plan to switch to oral antibiotic on discharge. Continue with supportive care. MMODL / IJN: [id number] /
[2018-01-15 00:46] VITALS: RESP 20
[2018-01-15] MEDS: SODIUM CHLORIDE 0.9% 1,000 ML IV SCH (05:10)
[2018-01-15 06:35] VITALS: BP 160/79; TEMP 97.4
[2018-01-15 07:12] LABS: Glucose,Whole Blood 98 mg/dL (75-99)
[2018-01-15 08:26] LABS: Anisocytosis Moderate; Basophils % (A) 0 %; Eosinophils # (A) 0.1 k/uL (0-0.7); Eosinophils % (A) 1 %; HCT 36.7 % (39.0-53.0); HGB 11.7 gm/dL (13.0-17.5); Hypochromasia Slight; Lymphocytes # (A) 0.3 k/uL (1.0-4.8); Lymphocytes % (A) 5 %; MCH 27.6 pg (25.0-35.0); MCHC 31.8 g/dL (31.0-37.0); MCV 86.9 fL (80.0-100.0); Mean Platelet Volume 7.4; Monocytes # (A) 0.3 k/uL (0-1.0); Monocytes % (A) 6 %; Neutrophils # (A) 4.3 k/uL (1.3-7.7); Neutrophils % (A) 87 %; Platelet Count 109 k/uL (150-450); RBC 4.23 m/uL (4.30-5.90); RDW 20.4 % (11.5-15.5)
[2018-01-15] MEDS: INSULIN ASPART 100 UNIT/ML 1 ML 10 ML VIAL SQ SCH ×4 (08:30→13:39)
[2018-01-15] MEDS: INSULIN DETEMIR 100 UNIT/ML 10 ML VIAL SQ SCH (08:44)
[2018-01-15] MEDS: HEPARIN SODIUM,PORCINE 5,000 UNIT/ML 1 ML VIAL SQ SCH (08:45)
[2018-01-15] MEDS: SENNOSIDES-DOCUSATE SODIUM 1 EACH TAB PO SCH (08:48)
[2018-01-15] MEDS: PANTOPRAZOLE 40 MG TABLET PO SCH (08:48)
[2018-01-15] MEDS: predniSONE 10 MG TAB PO SCH (08:48)
[2018-01-15] MEDS: GABAPENTIN 300 MG CAP PO SCH (08:48)
[2018-01-15] MEDS: ALLOPURINOL 100 MG TAB PO SCH (08:48)
[2018-01-15] MEDS: POTASSIUM CHLORIDE ER 10 MEQ TAB.ER.PRT PO SCH (08:48)
[2018-01-15] MEDS: CYCLOBENZAPRINE 5 MG TAB PO SCH (08:49)
[2018-01-15] MEDS: ASPIRIN 81 MG PO SCH (08:49)
[2018-01-15] MEDS: METOPROLOL TARTRATE 25 MG TAB PO SCH (08:50)
[2018-01-15] MEDS: IPRATROPIUM-ALBUTEROL 3 ML NEB INHALATION SCH ×2 (08:51→10:59)
[2018-01-15 08:55] LABS: Anion Gap 4 mmol/L; Blood Urea Nitrogen 27 mg/dL (9-20); Calcium 8.3 mg/dL (8.4-10.2); Carbon Dioxide 24 mmol/L (22-30); Chloride 111 mmol/L (98-107); Glucose 87 mg/dL (74-99); Potassium 3.8 mmol/L (3.5-5.1); Sodium 139 mmol/L (137-145)
[2018-01-15 11:12] VITALS: PULSE 77
[2018-01-15 12:07] LABS: Glucose,Whole Blood 107 mg/dL (75-99)
--- NOTE | 2018-01-15 12:33 | P.PN ---
Subjective Progress Note Date: 01/15/18 Principal diagnosis: Bilateral lower lobe pneumonia with a history of previous chronic radiation pneumonia Patient seen again today 01/13/2018 in follow-up on the regular medical floor. He is awake and alert in no acute distress. He is breathing easier today as compared to yesterday. Maintaining good O2 saturations in the 90s on 2 L/m per nasal cannula. Continues with dry nonproductive cough. He has been afebrile. No leukocytosis. Hemodynamically stable. He does have a history of esophageal adenocarcinoma with previous radiation pneumonitis chronic changes. The plan is for follow-up EGD today. The patient is seen today 01/14/2018 in follow-up on the regular medical floor. He is currently up in a chair at the bedside. He is awake and alert in no acute distress. He did have some issues with dizziness yesterday he was nothing by mouth for his EGD possibly some dehydration. EGD was performed and no evidence of esophageal mass in the distal esophagus was noted. There is some mild erythema of the GE junction consistent with esophagitis. Pathology is pending. Blood and sputum cultures reveal no growth. Count 86.1. Hemoglobin 13.6. Creatinine 1.03. Troponins are negative 2. Patient is seen again today 01/15/2018 in follow-up on the regular medical floor. He is currently sitting up in a chair at the bedside. He is awake and alert in no acute distress. He states his breathing is back to his baseline. No worsening cough or congestion. He's been afebrile. White count 5.0. Hemodynamically stable. Maintaining good O2 saturations on room air now. Blood and sputum cultures revealed no growth. Objective - Vital Signs Vital signs: Vital Signs Temp 97.4 F L 01/15/18 06:33 Pulse 77 01/15/18 11:10 Resp 20 01/15/18 06:33 BP 160/79 01/15/18 06:33 Pulse Ox 94 L 01/15/18 11:00 Intake & Output 01/14/18 01/15/18 01/15/18 18:59 06:59 18:59 Intake Total 240 500 Balance 240 500 Intake: Oral 240 500 Other: # Voids 3 2 1 # Bowel Movements 0 - Exam Gen. appearance, comfortable in no acute distress Head exam was generally normal. There was no scleral icterus or corneal arcus. Mucous membranes were moist. Neck was supple and without jugular venous distension, thyromegaly, or carotid bruits. Carotids were easily palpable bilaterally. There was no adenopathy. Examination of the lungs reveals faint crackles in lung bases bilaterally. Cardiac exam revealed the PMI to be normally situated and sized. The rhythm was regular and no extrasystoles were noted during several minutes of auscultation. The first and second heart sounds were normal and physiologic splitting of the second heart sound was noted. There were no murmurs, rubs, clicks, or gallops. Abdominal exam revealed normal bowel sounds. The abdomen was soft, non-tender, and without masses, organomegaly, or appreciable enlargement of the abdominal aorta. Examination of the extremities revealed easily palpable radial, femoral and pedal pulses. There was no cyanosis, clubbing or edema. - Labs CBC & Chem 7: 01/15/18 07:35 01/15/18 07:35 Labs: Abnormal Lab Results - Last 24 Hours (Table) 01/14/18 01/14/18 01/15/18 Range/Units 17:09 21:35 07:35 RBC 4.23 L (4.30-5.90) m/uL Hgb 11.7 L (13.0-17.5) gm/dL Hct 36.7 L (39.0-53.0) % RDW 20.4 H (11.5-15.5) % Plt Count 109 L (150-450) k/uL Lymphocytes # 0.3 L (1.0-4.8) k/uL Chloride (98-107) mmol/L BUN (9-20) mg/dL POC Glucose (mg/dL) 308 H 155 H (75-99) mg/dL Calcium (8.4-10.2) mg/dL 01/15/18 01/15/18 Range/Units 07:35 11:49 RBC (4.30-5.90) m/uL Hgb (13.0-17.5) gm/dL Hct (39.0-53.0) % RDW (11.5-15.5) % Plt Count (150-450) k/uL Lymphocytes # (1.0-4.8) k/uL Chloride 111 H (98-107) mmol/L BUN 27 H (9-20) mg/dL POC Glucose (mg/dL) 107 H (75-99) mg/dL Calcium 8.3 L (8.4-10.2) mg/dL Microbiology - Last 24 Hours (Table) 01/10/18 01:50 Blood Culture - Preliminary Blood No Growth after 120 hours Assessment and Plan Assessment: Assessment 1 bilateral lower lobe pneumonia suspected. 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 Recovered. 2 radiation pneumonitis currently on oral prednisone at a dose of 30 mg on a daily basis 3 esophagus adenocarcinoma, details discussed above and plan for EGD today. 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 Brown. The patient is cleared for discharge from the pulmonary standpoint. Complete his prednisone taper. Antibiotics per ID. I, the cosigning physician, performed a history & physical examination of the patient. Lungs sounds with crackles in posterior bases more so on the left. Maintaining good O2 saturations in the 90s on room air.. I discussed the assessment and plan of care with my nurse practitioner, Heather Lara. I attest to the above note as dictated by her.
--- NOTE | 2018-01-15 14:33 | P.DS ---
Providers Date of admission: 01/10/18 04:45 Attending physician: Bear Sampson Consults: 01/10/18 10:09 Consult Physician Routine Consulting Provider: Cameron Akhtar Consult Reason/Comments: Pneumonia, sepsis Do you want consulting provider notified?: Yes 01/10/18 13:28 Consult Physician Routine Consulting Provider: Jose Augustin Consult Reason/Comments: esophageal ca Do you want consulting provider notified?: Yes 01/11/18 12:50 Consult Physician Routine Consulting Provider: Neftaly Nur Consult Reason/Comments: sepsis Do you want consulting provider notified?: Yes Primary care physician: [facility] Course: 82-year-old gentleman admitted with bibasilar pneumonia, acute renal failure, and multiple other medical issues. Scheduled for F/U EGD today, in a patient with history of esophageal CA. Denies abdominal pain. Maintained on IV antibiotics as per infectious disease. Continues on nebulized bronchodilators, steroids .Breathing significantly improved. No cough. Denies chest pain, or palpitations. Afebrile. Creatinine 1.34. 01/14/2018 under an EGD yesterday reporting no evidence of esophageal mass in the distal esophagus, esophagitis. Biopsies obtained, pathology pending. Postprocedure during the later evening and wine sales representative hours, developed mild orthostatic hypotension, dizziness. Suspect volume depletion secondary to diuretics, volume depletion in addition to prior NPO status for endoscopy.Patient had been on large doses of diuretics at home which were discontinued. Afebrile, cultures currently negative. creatinine 1.03, troponins negative 3. Compression stockings initiated yesterday.Received 500 mL fluid bolus, in addition to maintenance IV. Denies chest pain, palpitations or increased shortness of breath. Currently denies lightheadedness dizziness or focal deficits. Renal function improving. 01/15/2018 Patient lightheadedness improved because of severe intravascular volume depletion although diuretic therapy is being discontinued patient will use compression socks for his pedal edema patient does not appear to have any history of CHF patient can use as needed Lasix oral for pedal edema PHYSICAL EXAM: VITAL SIGNS: As above GENERAL: Sitting up in bed, no acute distress HEENT: Conjunctivae normal. eyes normal. Oral mucosa moist NECK: No JVD. No thyroid enlargement. No LNs CARDIOVASCULAR: S1, S2 muffled. No murmur RESPIRATION: Breath sounds diminished in the bases. No rhonchi , Left posterior basilar crackles. ABDOMEN: Soft, nontender . No guarding. no masses palpable. Bowel sounds heard. LEGS: No edema. no swelling PSYCHIATRY: Alert and oriented -3, mood and affect normal. NERVOUS SYSTEM: Cranial N 2-12 grossly normal. Moves all 4 limbs. Diffuse weakness No focal deficits. Skin: no ulcer no rash Joints: No active swelling. No inflammation. Lymphatic system. No LN neck axilla or groin. Assessment and Plan Assessment: 1. Bilateral pneumonia possibly gram-negative, possibly early sepsis with radiation pneumonitis 2. Acute renal failure, possibly prerenal from excessive diuretic therapy which is being discontinued 3. Diabetes mellitus type 2 4. Gastroesophageal reflux disease 5. History of esophageal cancer, status post chemo 6. History of Hernandez's esophagus 7. History of nephrolithiasis 8. Hypertension 9. Degenerative joint disease 10. Dizziness secondary to volume depletion related to home diuretics-high- dose of Demadex, which has been discontinued. Patient Condition at Discharge: Serious Plan - Discharge Summary Discharge Rx Participant: No New Discharge Prescriptions: New Levofloxacin [Levaquin] 500 mg PO DAILY #5 tab predniSONE 10 mg PO DAILY #30 tab Albuterol Inhaler [Ventolin Hfa Inhaler] 1 - 2 puff INHALATION Q6HR PRN #1 inhaler PRN Reason: Shortness Of Breath Or Wheezing Continue Nitroglycerin Sl Tabs [Nitrostat] 0.4 mg SUBLINGUAL Q5M PRN PRN Reason: Chest Pain Cetirizine HCl 10 mg PO DAILY PRN PRN Reason: Allergy Symptoms Pravastatin Sodium [Pravachol] 80 mg PO HS Metoprolol Tartrate [Lopressor] 25 mg PO DAILY Gabapentin [Neurontin] 900 mg PO TID Potassium Chloride ER [K-Dur 10] 10 meq PO DAILY Insulin Lispro [humaLOG Kwikpen] See Protocol SQ ACHS Zolpidem [Ambien] 10 mg PO HS PRN PRN Reason: Insomnia metFORMIN HCL [Glucophage] 1,000 mg PO BID Allopurinol [Zyloprim] 100 mg PO DAILY traMADol HCL/ACETAMINOPHEN [Ultracet 37.5-325] 1 - 2 tab PO DAILY PRN PRN Reason: Pain Aspirin EC [Ecotrin Low Dose] 81 mg PO DAILY Cyclobenzaprine [Flexeril] 5 mg PO TID Changed Insulin Glargine,Hum.rec.anlog [Lantus Solostar] 25 unit SQ PC-SUPPER #0 INSULIN LISPRO (HumaLOG) [humaLOG] 8 unit SQ ACHS #0 Discontinued Insulin Glargine,Hum.rec.anlog [Lantus Solostar] 14 units SQ QAM Torsemide [Demadex] 100 mg PO DAILY Spironolactone [Aldactone] 12.5 mg PO DAILY predniSONE 20 mg PO BID Discharge Medication List Cetirizine HCl 10 mg PO DAILY PRN 07/05/15 [History] Nitroglycerin Sl Tabs [Nitrostat] 0.4 mg SUBLINGUAL Q5M PRN 07/05/15 [History] Metoprolol Tartrate [Lopressor] 25 mg PO DAILY 09/01/17 [History] Pravastatin Sodium [Pravachol] 80 mg PO HS 09/01/17 [History] Gabapentin [Neurontin] 900 mg PO TID 09/09/17 [History] Allopurinol [Zyloprim] 100 mg PO DAILY 09/24/17 [History] Insulin Lispro [humaLOG Kwikpen] See Protocol SQ ACHS 09/24/17 [History] Potassium Chloride ER [K-Dur 10] 10 meq PO DAILY 09/24/17 [History] Zolpidem [Ambien] 10 mg PO HS PRN 09/24/17 [History] metFORMIN HCL [Glucophage] 1,000 mg PO BID 09/24/17 [History] Aspirin EC [Ecotrin Low Dose] 81 mg PO DAILY 12/24/17 [History] traMADol HCL/ACETAMINOPHEN [Ultracet 37.5-325] 1 - 2 tab PO DAILY PRN 12/24/17 [ History] Cyclobenzaprine [Flexeril] 5 mg PO TID 01/10/18 [History] Albuterol Inhaler [Ventolin Hfa Inhaler] 1 - 2 puff INHALATION Q6HR PRN #1 inhaler 01/15/18 [Rx] INSULIN LISPRO (HumaLOG) [humaLOG] 8 unit SQ ACHS #0 01/15/18 [Rx] Insulin Glargine,Hum.rec.anlog [Lantus Solostar] 25 unit SQ PC-SUPPER #0 [Rx] Levofloxacin [Levaquin] 500 mg PO DAILY #5 tab 08/03/18 [Rx] predniSONE 10 mg PO DAILY #30 tab 01/15/18 [Rx] Follow up Appointment(s)/Referral(s): Sivan Smith MD [STAFF PHYSICIAN] - 2 Weeks (Unable to contact office at this time. Please call to schedule. ) [facility], [NON-STAFF] - 1-2 Days Sumit Dozier DO [Primary Care Provider] - 01/21/18 1:20 pm (Appointment with MALI Villar) Patient Instructions/Handouts: Syncope (DC), Pneumonia (DC) Activity/Diet/Wound Care/Special Instructions: Cardiac, diabetic diet. Activity as tolerated, fall precautions, up with cane. Discharge Disposition: HOME WITH HOME HEALTH SERVICES
--- NOTE | 2018-01-15 16:23 | P.PN ---
Subjective Progress Note Date: 01/15/18 Principal diagnosis: Esophageal No acute events overnight, Status Post EGD 01/13/18, feeling good today, up in chair. Objective - Vital Signs Vital signs: Vital Signs Temp 97.4 F L 01/15/18 06:33 Pulse 77 01/15/18 11:10 Resp 20 01/15/18 06:33 BP 160/79 01/15/18 06:33 Pulse Ox 94 L 01/15/18 11:00 Intake & Output 01/14/18 01/15/18 01/15/18 18:59 06:59 18:59 Intake Total 240 500 Balance 240 500 Intake: Oral 240 500 Other: # Voids 3 2 1 # Bowel Movements 0 - Constitutional General appearance: Present: cooperative, no acute distress - EENT Eyes: Present: EOMI, dentition normal ENT: Present: NA/AT, normal oropharynx - Neck Details: supple Neck: Present: normal ROM - Respiratory Respiratory: bilateral: CTA (No increased efforts) - Cardiovascular Rhythm: regular Heart sounds: normal: S1, S2 - Gastrointestinal General gastrointestinal: Present: normal bowel sounds, soft - Integumentary Integumentary: Present: pale - Neurologic Neurologic Comment(s): non focal Neurologic: Present: CNII-XII intact - Musculoskeletal Musculoskeletal: Present: generalized weakness, strength equal bilaterally - Psychiatric Psychiatric: Present: A&O x's 3, appropriate affect, intact judgment & insight - Labs CBC & Chem 7: 01/15/18 07:35 01/15/18 07:35 Labs: Abnormal Lab Results - Last 24 Hours (Table) 01/14/18 01/14/18 01/15/18 Range/Units 17:09 21:35 07:35 RBC 4.23 L (4.30-5.90) m/uL Hgb 11.7 L (13.0-17.5) gm/dL Hct 36.7 L (39.0-53.0) % RDW 20.4 H (11.5-15.5) % Plt Count 109 L (150-450) k/uL Lymphocytes # 0.3 L (1.0-4.8) k/uL Chloride (98-107) mmol/L BUN (9-20) mg/dL POC Glucose (mg/dL) 308 H 155 H (75-99) mg/dL Calcium (8.4-10.2) mg/dL 01/15/18 01/15/18 Range/Units 07:35 11:49 RBC (4.30-5.90) m/uL Hgb (13.0-17.5) gm/dL Hct (39.0-53.0) % RDW (11.5-15.5) % Plt Count (150-450) k/uL Lymphocytes # (1.0-4.8) k/uL Chloride 111 H (98-107) mmol/L BUN 27 H (9-20) mg/dL POC Glucose (mg/dL) 107 H (75-99) mg/dL Calcium 8.3 L (8.4-10.2) mg/dL Microbiology - Last 24 Hours (Table) 01/10/18 01:50 Blood Culture - Preliminary Blood No Growth after 120 hours Assessment and Plan Plan: Assessment and Plan (1) Pneumonia Narrative/Plan: The patient has been admitted with a diagnosis of possible pneumonia, based on his symptoms. Review of his CT scans and chest x-ray to report infiltrates. However there does not appear to be a definite new finding. He has been started on antibiotics, as well as oxygen, breathing treatments and by mouth steroids. His symptoms appear to have improved since yesterday. - Pulmonary medicine is following. Defer to them for ongoing treatment. - Radiation pneumonitis can also be a concern, though based on lack of new infiltrative changes on imaging, is less likely. He does not give any history that is strongly suggestive of obstruction/aspiration. Current Visit: Yes Status: Acute Code(s): J18.9 - PNEUMONIA, UNSPECIFIED ORGANISM SNOMED Code(s): 621854253 (2) Adenocarcinoma of esophagus, stage 3 Narrative/Plan: The patient has completed chemoradiation, with PET scan subsequently showing no evidence of disease. He is currently on follow-up. He is supposed to have a follow-up endoscopy. - Status Post endoscopy with GI 01/13/18, No previous mass identified, consistent with Esophagitis, await Biopsy results. Blood counts are normal. Continue to monitor CBC, S/S Bleeding. Current Visit: No Status: Acute Priority: High Code(s): C15.9 - MALIGNANT NEOPLASM OF ESOPHAGUS, UNSPECIFIED SNOMED Code(s): 625608721
--- NOTE | 2018-01-15 17:47 | PN ---
PROGRESS NOTE DATE OF SERVICE: 01/15/2018. REASON FOR FOLLOWUP: Pneumonia. INTERVAL HISTORY: The patient is seen on rounds earlier this afternoon. The patient has been afebrile, has been breathing comfortably on room air. Denies significant chest pain. Cough decreased intensity. No abdominal pain. No diarrhea. EXAMINATION: Blood pressure 131/81, pulse of 79, temperature 97.4. He is 94% on room air. General description is an elderly male up in the bed in no distress. RESPIRATORY SYSTEM: Unlabored breathing with decreased breath sounds in the bases. No wheeze. HEART: S1, S2. Regular rate and rhythm. ABDOMEN: Soft, no tenderness. LABS: Hemoglobin 11.7, white count 5.0, BUN of 27, creatinine 0.97. DIAGNOSTIC IMPRESSION AND PLAN: Patient with left lower lobe pneumonia, likely community acquired, to finish therapy with oral Levaquin for 5 days. Continue supportive care. MMODL / IJN: [id number] /
== END 2018-01-15 14:41 | disposition home health service (06) | DRG 871 ==
LOC: EC 23:14 → 4MS4W 01-10 04:45
PROVIDERS: ADMIT Hospitalist; ATTEND Hospitalist
PROC: 0DB48ZX Excision of Esophagogastric Junction, Via Natural or Artificial Opening Endoscopic, Diagnostic (ICD-10-PCS; principal; 2018-01-13 14:40)
DX: A41.50 Gram-negative sepsis, unspecified (principal); J15.6 Pneumonia due to other Gram-negative bacteria; N17.9 Acute kidney failure, unspecified; J70.0 Acute pulmonary manifestations due to radiation; Z96.1 Presence of intraocular lens; K21.0 Gastro-esophageal reflux disease with esophagitis; E86.9 Volume depletion, unspecified; E11.9 Type 2 diabetes mellitus without complications; I10 Essential (primary) hypertension; E78.5 Hyperlipidemia, unspecified; M10.9 Gout, unspecified; R13.10 Dysphagia, unspecified; K22.70 Barrett's esophagus without dysplasia; G62.9 Polyneuropathy, unspecified; T50.2X5A Adverse effect of carbonic-anhydrase inhibitors, benzothiadiazides and other diuretics, initial encounter; M19.90 Unspecified osteoarthritis, unspecified site; Y84.2 Radiological procedure and radiotherapy as the cause of abnormal reaction of the patient, or of later complication, without mention of misadventure at the time of the procedure; I95.1 Orthostatic hypotension; Z82.49 Family history of ischemic heart disease and other diseases of the circulatory system; Z90.49 Acquired absence of other specified parts of digestive tract; Z98.42 Cataract extraction status, left eye; Z98.41 Cataract extraction status, right eye; Z87.01 Personal history of pneumonia (recurrent); Z85.01 Personal history of malignant neoplasm of esophagus; Z92.21 Personal history of antineoplastic chemotherapy; Z87.442 Personal history of urinary calculi; Z86.19 Personal history of other infectious and parasitic diseases; Z79.4 Long term (current) use of insulin; Z79.52 Long term (current) use of systemic steroids; Z79.82 Long term (current) use of aspirin; Z79.899 Other long term (current) drug therapy; Z88.0 Allergy status to penicillin; Z91.040 Latex allergy status; Z87.11 Personal history of peptic ulcer disease
CPT/HCPCS: 36415; 43239; 71045; 71250; 80048; 80053; 81003; 82550; 82553; 83036; 83605; 83735; 83880; 84484; 85025; 85610; 85730; 87040; 87070; 87205; 88305; 93005; 94640; 94760; 96365; 96366; 99285

== ENCOUNTER → 2018-01-21 | Outpatient (CLI) | payer MEDICARE ==
--- NOTE | 2018-01-21 14:30 | XR ---
EXAMINATION TYPE: XR chest 2V DATE OF EXAM: 01/21/2018 COMPARISON: Chest x-ray January 09, 2018. CT chest January 10, 2018. HISTORY: Shortness of breath and fatigue. TECHNIQUE: Frontal and lateral views of the chest are obtained. FINDINGS: There is chronic parenchymal change with bibasilar fibrosis and distortion redemonstrated. There is no new suspicious focal air space opacity, pleural effusion, or pneumothorax seen. The card iac silhouette size remains enlarged with atherosclerotic aorta. The osseous structures are deminer alized. Mild to moderate multilevel spurring in thoracic spine is present IMPRESSION: Chronic parenchymal changes and cardiomegaly without suspicious acute pulmonary process.
== END | disposition home or self-care (01) ==
LOC: RADXRYALE 14:04
PROVIDERS: ATTEND Physician Assistant Medical
DX: I51.7 Cardiomegaly (principal)
CPT/HCPCS: 71046

== ENCOUNTER 2018-01-26 12:56 | Inpatient (IN) | payer MEDICARE ==
[2018-01-26] MEDS ORDERED: ACETAMINOPHEN TAB 500 MG TAB PO STA (13:16)
--- NOTE | 2018-01-26 13:19 | ED ---
General Adult HPI - General Chief complaint: Shortness of Breath Stated complaint: Sob Time Seen by Provider: 01/26/18 13:12 Source: patient, family, RN notes reviewed Mode of arrival: wheelchair Limitations: no limitations - History of Present Illness Initial comments: Patient is a pleasant 82-year-old male presenting to the emergency department with shortness of breath and fatigue. Symptoms have progressed with the past several days. Patient was discharged from the hospital just 10 days ago with similar problems. Patient was diagnosed then with dehydration and pneumonia. Patient did have blood work done on showing a lactic acid of 4.5 and white blood cell count of 11 per . does provide majority of the history. Patient does have cough that has been nonproductive. No leg pain or leg swelling. No chest pain. - Related Data Home Medications Medication Instructions Recorded Confirmed Cetirizine HCl 10 mg PO DAILY PRN 07/05/15 01/26/18 Nitroglycerin Sl Tabs [Nitrostat] 0.4 mg SUBLINGUAL Q5M PRN 07/05/15 01/26/18 Metoprolol Tartrate [Lopressor] 25 mg PO DAILY 09/01/17 01/26/18 Pravastatin Sodium [Pravachol] 80 mg PO HS 09/01/17 01/26/18 Gabapentin [Neurontin] 600 mg PO BID 09/09/17 01/26/18 Potassium Chloride ER [K-Dur 10] 10 meq PO DAILY 09/24/17 01/26/18 Zolpidem [Ambien] 10 mg PO HS PRN 09/24/17 01/26/18 metFORMIN HCL [Glucophage] 1,000 mg PO BID 09/24/17 01/26/18 Aspirin EC [Ecotrin Low Dose] 81 mg PO DAILY 12/24/17 01/26/18 Albuterol Inhaler [Ventolin Hfa 1 - 2 puff INHALATION RT-Q6H PRN 01/26/18 Inhaler] Allopurinol [Zyloprim] 300 mg PO DAILY 01/26/18 01/26/18 Gabapentin [Neurontin] 1,200 mg PO HS 01/26/18 01/26/18 INSULIN LISPRO (HumaLOG) [humaLOG] 14 unit SQ ACHS 01/26/18 01/26/18 INSULIN LISPRO (humaLOG) [humaLOG] See Protocol SQ ACHS 01/26/18 01/26/18 Insulin Glargine,Hum.rec.anlog 14 unit SQ AC-BID 01/26/18 01/26/18 [Lantus Solostar] Nystatin 100,000 Unit/ml Susp 10 ml PO QID 01/26/18 01/26/18 [Mycostatin Oral Susp] Omeprazole 40 mg PO BID 01/26/18 01/26/18 Torsemide [Demadex] 100 mg PO DAILY 01/26/18 01/26/18 Previous Rx's Medication Instructions Recorded Levofloxacin [Levaquin] 500 mg PO DAILY #5 tab 01/15/18 Allergies Allergy/AdvReac Type Severity Reaction Status Date / Time latex Allergy Itching Verified 01/26/18 13:52 penicillin G Allergy Rash/Hives Verified 01/26/18 13:52 Review of Systems ROS Statement: Those systems with pertinent positive or pertinent negative responses have been documented in the HPI. ROS Other: All systems not noted in ROS Statement are negative. Constitutional: Denies: fever Eyes: Denies: eye pain ENT: Denies: ear pain Respiratory: Reports: cough, dyspnea Cardiovascular: Denies: chest pain Endocrine: Reports: fatigue Gastrointestinal: Denies: abdominal pain Genitourinary: Denies: dysuria Musculoskeletal: Denies: back pain Skin: Denies: rash Neurological: Denies: weakness Past Medical History Past Medical History: Cancer, Diabetes Mellitus, GERD/Reflux, Hyperlipidemia, Hypertension, Osteoarthritis (OA), Pneumonia Additional Past Medical History / Comment(s): gout, CARDOSO'S esophagus, Esaphageal cancer-completed the last of 28 tx on and has had so far 5 chemo tx last on was last thu09/02/17. pt's stated his weight has gone down from 201 to 183 over 6 weeks. has been drinking vanillia premier protein shakes daily am.hiatal hernia, kidney stones 40 years ago,pne 20 years ago, neuropathy, past stomach ulcers,"lt carotid 100% blkg, shingelles 12-2016 History of Any Multi-Drug Resistant Organisms: None Reported Past Surgical History: Appendectomy, Orthopedic Surgery Additional Past Surgical History / Comment(s): LILA shoulder rotator CUFF, ORIF LT FOOT thinks he has plate and screws, "esophagus radiofrequency ablation", lila cataracts-lens implants Past Anesthesia/Blood Transfusion Reactions: No Reported Reaction Additional Past Anesthesia/Blood Transfusion Reaction / Comment(s): . Past Psychological History: No Psychological Hx Reported Smoking Status: Never smoker Past Alcohol Use History: Rare Past Drug Use History: None Reported - Past Family History Mother Family Medical History: Cancer Additional Family Medical History / Comment(s): . Father Family Medical History: Coronary Artery Disease (CAD) Additional Family Medical History / Comment(s): AT AGE 53 General Exam Limitations: no limitations General appearance: alert, in no apparent distress Head exam: Present: atraumatic Eye exam: Present: normal appearance, PERRL ENT exam: Present: normal oropharynx Neck exam: Present: normal inspection Respiratory exam: Present: rhonchi Cardiovascular Exam: Present: tachycardia GI/Abdominal exam: Present: soft. Absent: tenderness Extremities exam: Present: normal inspection. Absent: pedal edema, calf tenderness Neurological exam: Present: alert Psychiatric exam: Present: normal affect, normal mood Skin exam: Present: normal color Course Vital Signs 01/26/18 01/26/18 01/26/18 13:00 13:14 13:15 Temperature 97.6 F 97.7 F 100.4 F H Pulse Rate 51 L 130 H Respiratory 20 24 Rate Blood Pressure 116/66 163/70 O2 Sat by Pulse 77 L 95 Oximetry 01/26/18 01/26/18 01/26/18 13:47 14:24 15:24 Temperature 98.1 F Pulse Rate 96 112 H Respiratory 22 18 18 Rate Blood Pressure 163/70 102/61 O2 Sat by Pulse 94 L Oximetry - Reevaluation(s) Reevaluation #1: 01/26/18 15:41 Patient has pneumonitis. Patient will be covered with antibiotics. There is suspicion for sepsis at 1541. Blood culture and lactic acid and IV antibiotics and fluid bolus has been ordered. 01/26/18 15:46 Case was discussed with Dr. Saba, who will admit. EKG Findings - EKG Comments: EKG Findings:: Sinus tachycardia 135. For screening AV block with TN of 206. QRS 68. QT to 46. QTc 369. Normal axis. Normal QRS. Nonspecific T waves. Medical Decision Making - Medical Decision Making Patient reevaluated and improved. Heart rate 107. Patient does feel better. Patient and family are updated on results and plan. Dr. Saba has been paged for admission for Dr. Gaviria. - Lab Data Result diagrams: 01/26/18 13:26 01/26/18 13:26 Lab Results 01/26/18 01/26/18 01/26/18 Range/Units 13:26 13:26 13:26 WBC 9.6 (3.8-10.6) k/uL RBC 5.04 (4.30-5.90) m/uL Hgb 14.0 (13.0-17.5) gm/dL Hct 43.3 (39.0-53.0) % MCV 85.9 (80.0-100.0) fL MCH 27.8 (25.0-35.0) pg MCHC 32.4 (31.0-37.0) g/dL RDW 20.7 H (11.5-15.5) % Plt Count 165 (150-450) k/uL Neutrophils % 90 % Lymphocytes % 3 % Monocytes % 4 % Eosinophils % 2 % Basophils % 0 % Neutrophils # 8.6 H (1.3-7.7) k/uL Lymphocytes # 0.3 L (1.0-4.8) k/uL Monocytes # 0.4 (0-1.0) k/uL Eosinophils # 0.2 (0-0.7) k/uL Basophils # 0.0 (0-0.2) k/uL Anisocytosis Moderate Microcytosis Slight PT (9.0-12.0) sec INR (<1.2) APTT (22.0-30.0) sec Sodium 140 (137-145) mmol/L Potassium 4.1 (3.5-5.1) mmol/L Chloride 96 L (98-107) mmol/L Carbon Dioxide 26 (22-30) mmol/L Anion Gap 18 mmol/L BUN 36 H (9-20) mg/dL Creatinine 1.30 H (0.66-1.25) mg/dL Est GFR (CKD-EPI)AfAm 60 (>60 ml/min/1.73 sqM) Est GFR (CKD-EPI)NonAf 52 (>60 ml/min/1.73 sqM) Glucose 249 H (74-99) mg/dL Plasma Lactic Acid Nestor 8.2 H* (0.7-2.0) mmol/L Calcium 9.9 (8.4-10.2) mg/dL Total Bilirubin 1.1 (0.2-1.3) mg/dL AST 32 (17-59) U/L ALT 31 (21-72) U/L Alkaline Phosphatase 74 (38-126) U/L Total Protein 6.7 (6.3-8.2) g/dL Albumin 4.0 (3.5-5.0) g/dL Urine Color Urine Appearance (Clear) Urine pH (5.0-8.0) Ur Specific [place] (1.001-1.035) Urine Protein (Negative) Urine Glucose (UA) (Negative) Urine Ketones (Negative) Urine Blood (Negative) Urine Nitrite (Negative) Urine Bilirubin (Negative) Urine Urobilinogen (<2.0) mg/dL Ur Leukocyte Esterase (Negative) 01/26/18 01/26/18 Range/Units 13:26 14:20 WBC (3.8-10.6) k/uL RBC (4.30-5.90) m/uL Hgb (13.0-17.5) gm/dL Hct (39.0-53.0) % MCV (80.0-100.0) fL MCH (25.0-35.0) pg MCHC (31.0-37.0) g/dL RDW (11.5-15.5) % Plt Count (150-450) k/uL Neutrophils % % Lymphocytes % % Monocytes % % Eosinophils % % Basophils % % Neutrophils # (1.3-7.7) k/uL Lymphocytes # (1.0-4.8) k/uL Monocytes # (0-1.0) k/uL Eosinophils # (0-0.7) k/uL Basophils # (0-0.2) k/uL Anisocytosis Microcytosis PT 10.2 (9.0-12.0) sec INR 1.0 (<1.2) APTT 22.7 (22.0-30.0) sec Sodium (137-145) mmol/L Potassium (3.5-5.1) mmol/L Chloride (98-107) mmol/L Carbon Dioxide (22-30) mmol/L Anion Gap mmol/L BUN (9-20) mg/dL Creatinine (0.66-1.25) mg/dL Est GFR (CKD-EPI)AfAm (>60 ml/min/1.73 sqM) Est GFR (CKD-EPI)NonAf (>60 ml/min/1.73 sqM) Glucose (74-99) mg/dL Plasma Lactic Acid Nestor (0.7-2.0) mmol/L Calcium (8.4-10.2) mg/dL Total Bilirubin (0.2-1.3) mg/dL AST (17-59) U/L ALT (21-72) U/L Alkaline Phosphatase (38-126) U/L Total Protein (6.3-8.2) g/dL Albumin (3.5-5.0) g/dL Urine Color Yellow Urine Appearance Clear (Clear) Urine pH 7.0 (5.0-8.0) Ur Specific [place] 1.007 (1.001-1.035) Urine Protein Negative (Negative) Urine Glucose (UA) Negative (Negative) Urine Ketones Negative (Negative) Urine Blood Negative (Negative) Urine Nitrite Negative (Negative) Urine Bilirubin Negative (Negative) Urine Urobilinogen <2.0 (<2.0) mg/dL Ur Leukocyte Esterase Negative (Negative) Critical Care Time Critical Care Time: Yes Total Critical Care Time: 32 Disposition Clinical Impression: Pneumonitis, Septic shock Disposition: ADMITTED IP TO THIS [facility] Condition: Serious Referrals: Sumit Dozier DO [Primary Care Provider] - 1-2 days Decision Time: 15:47
[2018-01-26] MEDS ORDERED: SODIUM CHLORIDE 0.9% 500 ML IV SCH (13:30)
[2018-01-26 13:47] LABS: Anisocytosis Moderate; Basophils % (A) 0 %; Eosinophils # (A) 0.2 k/uL (0-0.7); Eosinophils % (A) 2 %; HCT 43.3 % (39.0-53.0); Lymphocytes # (A) 0.3 k/uL (1.0-4.8); Lymphocytes % (A) 3 %; MCH 27.8 pg (25.0-35.0); MCHC 32.4 g/dL (31.0-37.0); MCV 85.9 fL (80.0-100.0); Mean Platelet Volume 7.6; Microcytosis Slight; Monocytes # (A) 0.4 k/uL (0-1.0); Monocytes % (A) 4 %; Neutrophils # (A) 8.6 k/uL (1.3-7.7); Neutrophils % (A) 90 %; Platelet Count 165 k/uL (150-450); RBC 5.04 m/uL (4.30-5.90); RDW 20.7 % (11.5-15.5); WBC 9.6 k/uL (3.8-10.6)
--- NOTE | 2018-01-26 13:52 | XR ---
EXAMINATION TYPE: XR chest 2V DATE OF EXAM: 01/26/2018 COMPARISON: 01/21/2018 TECHNIQUE: PA and lateral views submitted. HISTORY: Shortness of breath FINDINGS: Hypertrophic and degenerative change of the spine. Heart size is prominent. Atherosclerotic change ao rta. There is a diffuse interstitial pattern with tiny bilateral effusions. Bibasilar subsegmental co nsolidation noted. No pneumothorax. Biapical pleural thickening Arthropathy of the shoulders. IMPRESSION: 1. Cardiomegaly with interstitial pattern and basilar atelectasis or infiltrate with tiny effusions. Correlate clinically to exclude underlying interstitial pneumonitis or venous congestion.
[2018-01-26 14:03] LABS: Calcium 9.9 mg/dL (8.4-10.2); Potassium 4.1 mmol/L (3.5-5.1); Total Bilirubin 1.1 mg/dL (0.2-1.3); Total Protein 6.7 g/dL (6.3-8.2)
[2018-01-26 14:20] LABS: Partial Thromboplastin Time 22.7 sec (22.0-30.0); Prothrombin Time 10.2 sec (9.0-12.0)
[2018-01-26 14:29] LABS: Appearance,Urine Clear (Clear); Bilirubin,Urine Negative (Negative); Blood,Urine Negative (Negative); Color,Urine Yellow; Glucose,Urine (UA) Negative (Negative); Ketones,Urine Negative (Negative); Leukocyte Esterase,Urine Negative (Negative); Nitrite,Urine Negative (Negative); Protein,Urine Negative (Negative); Specific Gravity,Urine 1.007 (1.001-1.035); Urobilinogen,Urine <2.0 mg/dL (<2.0)
[2018-01-26] MEDS ORDERED: SODIUM CHLORIDE 0.9% 1,000 ML IV STA ×2 (15:44)
[2018-01-26] MEDS ORDERED: IPRATROPIUM-ALBUTEROL 3 ML NEB INHALATION PRN (15:47)
[2018-01-26] MEDS ORDERED: cefTRIAXone IN SWFI 1,000 MG/10 ML SYRINGE IVP STA (15:47)
[2018-01-26] MEDS ORDERED: PNEUMONIA PROTOCOL UTILIZED 1 EACH MISC PO PRN (15:47)
[2018-01-26] MEDS ORDERED: AZITHROMYCIN 500 MG in DEXTROSE 5% IN WATER 250 ML IVPB STA ×2 (15:47)
--- NOTE | 2018-01-26 15:52 | ED ---
Medical Decision Making - Lab Data Result diagrams: 01/26/18 13:26 01/26/18 13:26 Lab Results 01/26/18 01/26/18 01/26/18 Range/Units 13:26 13:26 13:26 WBC 9.6 (3.8-10.6) k/uL RBC 5.04 (4.30-5.90) m/uL Hgb 14.0 (13.0-17.5) gm/dL Hct 43.3 (39.0-53.0) % MCV 85.9 (80.0-100.0) fL MCH 27.8 (25.0-35.0) pg MCHC 32.4 (31.0-37.0) g/dL RDW 20.7 H (11.5-15.5) % Plt Count 165 (150-450) k/uL Neutrophils % 90 % Lymphocytes % 3 % Monocytes % 4 % Eosinophils % 2 % Basophils % 0 % Neutrophils # 8.6 H (1.3-7.7) k/uL Lymphocytes # 0.3 L (1.0-4.8) k/uL Monocytes # 0.4 (0-1.0) k/uL Eosinophils # 0.2 (0-0.7) k/uL Basophils # 0.0 (0-0.2) k/uL Anisocytosis Moderate Microcytosis Slight PT (9.0-12.0) sec INR (<1.2) APTT (22.0-30.0) sec Sodium 140 (137-145) mmol/L Potassium 4.1 (3.5-5.1) mmol/L Chloride 96 L (98-107) mmol/L Carbon Dioxide 26 (22-30) mmol/L Anion Gap 18 mmol/L BUN 36 H (9-20) mg/dL Creatinine 1.30 H (0.66-1.25) mg/dL Est GFR (CKD-EPI)AfAm 60 (>60 ml/min/1.73 sqM) Est GFR (CKD-EPI)NonAf 52 (>60 ml/min/1.73 sqM) Glucose 249 H (74-99) mg/dL Plasma Lactic Acid Nestor 8.2 H* (0.7-2.0) mmol/L Calcium 9.9 (8.4-10.2) mg/dL Total Bilirubin 1.1 (0.2-1.3) mg/dL AST 32 (17-59) U/L ALT 31 (21-72) U/L Alkaline Phosphatase 74 (38-126) U/L Total Protein 6.7 (6.3-8.2) g/dL Albumin 4.0 (3.5-5.0) g/dL Urine Color Urine Appearance (Clear) Urine pH (5.0-8.0) Ur Specific [place] (1.001-1.035) Urine Protein (Negative) Urine Glucose (UA) (Negative) Urine Ketones (Negative) Urine Blood (Negative) Urine Nitrite (Negative) Urine Bilirubin (Negative) Urine Urobilinogen (<2.0) mg/dL Ur Leukocyte Esterase (Negative) 01/26/18 01/26/18 Range/Units 13:26 14:20 WBC (3.8-10.6) k/uL RBC (4.30-5.90) m/uL Hgb (13.0-17.5) gm/dL Hct (39.0-53.0) % MCV (80.0-100.0) fL MCH (25.0-35.0) pg MCHC (31.0-37.0) g/dL RDW (11.5-15.5) % Plt Count (150-450) k/uL Neutrophils % % Lymphocytes % % Monocytes % % Eosinophils % % Basophils % % Neutrophils # (1.3-7.7) k/uL Lymphocytes # (1.0-4.8) k/uL Monocytes # (0-1.0) k/uL Eosinophils # (0-0.7) k/uL Basophils # (0-0.2) k/uL Anisocytosis Microcytosis PT 10.2 (9.0-12.0) sec INR 1.0 (<1.2) APTT 22.7 (22.0-30.0) sec Sodium (137-145) mmol/L Potassium (3.5-5.1) mmol/L Chloride (98-107) mmol/L Carbon Dioxide (22-30) mmol/L Anion Gap mmol/L BUN (9-20) mg/dL Creatinine (0.66-1.25) mg/dL Est GFR (CKD-EPI)AfAm (>60 ml/min/1.73 sqM) Est GFR (CKD-EPI)NonAf (>60 ml/min/1.73 sqM) Glucose (74-99) mg/dL Plasma Lactic Acid Nestor (0.7-2.0) mmol/L Calcium (8.4-10.2) mg/dL Total Bilirubin (0.2-1.3) mg/dL AST (17-59) U/L ALT (21-72) U/L Alkaline Phosphatase (38-126) U/L Total Protein (6.3-8.2) g/dL Albumin (3.5-5.0) g/dL Urine Color Yellow Urine Appearance Clear (Clear) Urine pH 7.0 (5.0-8.0) Ur Specific [place] 1.007 (1.001-1.035) Urine Protein Negative (Negative) Urine Glucose (UA) Negative (Negative) Urine Ketones Negative (Negative) Urine Blood Negative (Negative) Urine Nitrite Negative (Negative) Urine Bilirubin Negative (Negative) Urine Urobilinogen <2.0 (<2.0) mg/dL Ur Leukocyte Esterase Negative (Negative) Disposition Clinical Impression: Pneumonitis, Septic shock Disposition: ADMITTED IP TO THIS HOSP Condition: Serious Referrals: Sumit Dozier DO [Primary Care Provider] - 1-2 days Procedures - Sepsis Sepsis Focused Exam #1 Time Sepsis Criteria Met: 15:41 Sepsis Focused Exam Date: 01/26/18 Sepsis Focused Exam Time: 15:51 Sepsis Focused Exam Complete: Yes Vital Signs & RN Notes Reviewed: Yes Capillary Refill: < 2 Seconds: Fingers, Toes Peripheral Pulses: Normal: Radial (R), Radial (L) Skin Color: Normal for Patient Respiratory Exam: normal lung sounds Cardiovascular Exam: tachycardia
[2018-01-26] MEDS: SODIUM CHLORIDE 0.9% 1,000 ML IV SCH (16:12)
[2018-01-26] MEDS: IPRATROPIUM-ALBUTEROL 3 ML NEB INHALATION SCH ×2 (16:19→19:01)
[2018-01-26] MEDS ORDERED: LORATADINE 10 MG TAB PO PRN (19:34)
[2018-01-26] MEDS ORDERED: NITROGLYCERIN SL TABS 0.4 MG TAB SUBLINGUAL PRN (19:34)
[2018-01-26] MEDS ORDERED: HYDROcodone/APAP 5-325MG 1 EACH TAB PO PRN (19:36)
--- NOTE | 2018-01-26 20:13 | HP ---
HISTORY AND PHYSICAL DATE OF SERVICE: 01/26/2018 CHIEF COMPLAINT: Shortness of breath and cough. HISTORY OF PRESENT ILLNESS: This 82-year-old gentleman with a past medical history of multiple medical problems including diabetes, GERD, hyperlipidemia, hypertension, history of DJD, history of gout, history of Hernandez's esophagus, was found to have esophageal cancer. The patient finished chemotherapy and radiation for esophageal cancer. The patient lost about 20 pounds of weight. Patient was recently admitted with bilateral pneumonia, sepsis, improved significantly. Patient went home but subsequently patient had increasing hacking cough and tiredness and weakness, shortness of breath. The patient also dropped oxygen saturation. The patient also was found to have high blood count and a high lactic acid and the patient the patient came to [facility] and admitted for further evaluation and treatment. Chest x-ray showed possible bibasilar pneumonia. Lactic acid elevated. There is no history any headache, loss of consciousness or seizures. The patient has some shaking, fevers and chills also. Dr. Dozier is following the patient closely in the outpatient setting. PAST MEDICAL HISTORY: History of esophageal cancer, diabetes type 2. GERD, hypertension, hyperlipidemia, history of DJD, history of pneumonia. MEDICATIONS: Prior to admission include home medications are: 1. Nystatin 10 mL p.o. q.i.d. 2. Glucophage 1000 mg p.o. b.i.d. 3. Ambien 10 mg q.h.s. 4. Demadex 100 mg p.o. daily. 5. Pravachol 80 mg q.h.s. 6. K-Dur 10 mEq p.o. daily. 7. Omeprazole 40 mg p.o. b.i.d. 8. Nitrostat 0.4 mg p.r.n. 9. Lopressor 25 mg p.o. daily. 10.Levaquin 500 mg p.o. daily. 11.Lantus 14 units subcu b.i.d. 12.Humalog scale. 13.Humalog 40 units subcu a.c. 14.Neurontin 1200 mg q.h.s., 600 mg p.o. b.i.d. 15.Cetirizine 10 mg daily p.r.n. 16.Ecotrin 81 mg. 17.Zyloprim 300 mg. 18.Ventolin HFA 1-2 puffs q.6h p.r.n. ALLERGIES: LATEX FAMILY HISTORY: History of cancer in the family. SOCIAL HISTORY: History of alcohol. No history of smoking. REVIEW OF SYSTEMS: ENT: Diminished hearing and diminished vision. CARDIOVASCULAR: No angina or palpitations. RESPIRATORY: As mentioned earlier. GI: As mentioned earlier. : No dysuria. NERVOUS SYSTEM: No numbness or weakness. ALLERGY/IMMUNOLOGY: No asthma or hayfever. MUSCULOSKELETAL: As mentioned earlier. HEMATOLOGY/ONCOLOGY: As mentioned earlier. CONSTITUTIONAL: As mentioned earlier. DERMATOLOGY: Negative. RHEUMATOLOGY: Negative. PSYCHIATRY: As mentioned earlier. EXAMINATION: Alert and oriented times three. Pulse is 112, blood pressure 116/66, respiration 20, temperature normal. Pulse ox 94% on 2 L. HEENT: Conjunctivae normal. Oral mucosa moist. NECK is no jugular venous distention. No carotid bruit. No lymph nodes enlargement. CARDIOVASCULAR: S1, S2 muffled. RESPIRATIONS: Breath sounds diminished in the bases. Bilateral scattered rhonchi and crackles. ABDOMEN: Soft, obese, nontender. No mass palpable. LEGS: Minimal edema. NERVOUS SYSTEM: Higher functions as mentioned earlier. Moves all 4 limbs. No focal motor or sensory deficits. Lymphatics: No lymph nodes palpable in the neck, axillae or groin. SKIN: No ulcer, rash, bleeding. LABS: At this time shows WBC 9.2, hemoglobin 14. Sodium 140, potassium 4.1, plasma lactic acid 3.7. ASSESSMENT: 1. Bilateral pneumonia with possible sepsis. 2. Rule out aspiration. 3. History of esophageal carcinoma, status post chemo and radiation. 4. Diabetes mellitus type 2. 5. Gastroesophageal reflux disease. 6. Hypertension. 7. Hyperlipidemia. 8. History of degenerative joint disease. 9. History of gout. 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 11.History of nephrolithiasis. 12.History of gastric ulcers. 13.History of appendectomy. 14.Increased creatinine with chronic kidney stage 3. 15.Increased plasma lactic acid. RECOMMENDATIONS AND DISCUSSION: In this 82-year-old gentleman who presented with multiple complex medical issues , we will monitor the patient closely, continue the current medications, management and symptomatic treatment. We will initiate broad-spectrum IV antibiotics. Follow cultures, bronchodilators, speech pathology evaluation and I would also recommend resume the home medications. DVT prophylaxis. Otherwise, we will consult the Pulmonary and infectious Disease and as well as Hematology/Oncology. The prognosis guarded because of multiple complex medical issues. Aspiration precautions. See orders for details. Further recommendations to follow. Copy of dictation being forwarded to Dr. Dozier, who is the primary physician. Discussed at length with the patient's and the daughter at the bedside. Understands and agrees. Further recommendations to follow. MMODL / IJN: [id number] / MTDD
[2018-01-26] MEDS: HEPARIN SODIUM,PORCINE 5,000 UNIT/ML 1 ML VIAL SQ SCH (20:31)
[2018-01-26] MEDS: GABAPENTIN 300 MG CAP PO SCH (20:31)
[2018-01-26] MEDS: metFORMIN 500 MG TAB PO SCH (20:32)
[2018-01-26] MEDS: PRAVASTATIN SODIUM 80 MG TAB PO SCH (20:33)
[2018-01-26] MEDS: NYSTATIN 100,000 UNIT/ML SUSP 500,000 UNIT/5 ML CUP PO SCH (20:33)
[2018-01-26] MEDS: PANTOPRAZOLE 40 MG TABLET PO SCH (20:33)
[2018-01-26 20:53] LABS: Glucose,Whole Blood 289 mg/dL (75-99)
[2018-01-26] MEDS ORDERED: GABAPENTIN 300 MG CAP PO SCH (21:00)
[2018-01-26] MEDS: INSULIN DETEMIR 100 UNIT/ML 10 ML VIAL SQ SCH (21:23)
[2018-01-26] MEDS: INSULIN ASPART 100 UNIT/ML 1 ML 10 ML VIAL SQ SCH ×2 (21:23)
[2018-01-26] MEDS: ZOLPIDEM 10 MG TAB PO PRN (23:34)
--- NOTE | 2018-01-26 23:34 | US ---
EXAMINATION TYPE: US carotid duplex BILAT DATE OF EXAM: 01/26/2018 COMPARISON: 09/13/2010 CLINICAL HISTORY: stroke. Stroke EXAM MEASUREMENTS: RIGHT: Peak Systolic Velocity (PSV) cm/sec ----- Right CCA: 52.0 ----- Right ICA: 119.4 ----- Right ECA: 85.4 ICA/CCA ratio: 2.3 RIGHT: End Diastole cm/sec ----- Right CCA: 16.8 ----- Right ICA: 32.1 ----- Right ECA: 6.3 LEFT: Peak Systolic Velocity (PSV) cm/sec ----- Left CCA: 47.2 ----- Left ICA: occluded ----- Left ECA: 143.6 ICA/CCA ratio: LEFT: End Diastole cm/sec ----- Left CCA: 21.0 ----- Left ICA: occluded ----- Left ECA: 31.7 VERTEBRALS (direction of flow): Right Vertebral: Antegrade Left Vertebral: Antegrade Rhythm: Arrhythmia Bilateral plaque seen. Left ICA occluded no flow seen. IMPRESSION: There is antegrade flow in the vertebral arteries. 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 Occlusion is new compared to old exam. Images and measurements suggest 50 % stenosis in the right internal carotid artery. Criteria for Assigning % of Stenosis / Diameter reduction (Estimation based on the indirect measurements of the internal carotid artery velocities (ICA PSV). 1. Normal (no stenosis)=ICA PSV < 125 cm/s: ratio < 2.0: ICA EDV<40 cm/s. 2. Less than 50% stenosis=ICA PSV < 125 cm/s: ratio < 2.0: ICA EDV<40 cm/s. 3. 50 to 69% stenosis=ICA PSV of 125 to 230 cm/s: ration 2.0 ? 4.0: ICA EDV 40-100 cm/s. 4. Greater than 70% stenosis to near occlusion= ICA PSV > 230 cm/s: ratio > 4.0: ICA EDV > 100 cm/s. 5. Near occlusion= ICA PSV velocities may be low or undetectable: variable ratio and ICA EDV. 6. Total occlusion=unable to detect flow.
[2018-01-27] MEDS: SODIUM CHLORIDE 0.9% 1,000 ML IV SCH ×2 (02:08→09:49)
[2018-01-27] MEDS: ACETAMINOPHEN TAB 500 MG TAB PO PRN (03:50)
[2018-01-27] MEDS ORDERED: FUROSEMIDE 10 MG/ML 4 ML VIAL IV STA (04:16)
[2018-01-27 04:25] LABS: Anisocytosis Moderate; HCT 37.1 % (39.0-53.0); HGB 12.1 gm/dL (13.0-17.5); MCH 28.3 pg (25.0-35.0); MCHC 32.6 g/dL (31.0-37.0); MCV 87.1 fL (80.0-100.0); Microcytosis Slight; Platelet Count 146 k/uL (150-450); RBC 4.26 m/uL (4.30-5.90); RDW 21.4 % (11.5-15.5); WBC 8.2 k/uL (3.8-10.6)
[2018-01-27 04:34] LABS: Calcium 8.9 mg/dL (8.4-10.2); Potassium 3.8 mmol/L (3.5-5.1)
[2018-01-27 04:55] LABS: Band Neutrophils % 1 %; Eosinophils # (M) 0.16 k/uL (0-0.7); Lymphocytes # (M) 0.66 k/uL (1.0-4.8); Monocytes # (M) 0.25 k/uL (0-1.0); Neutrophils % (M) 87 %; Nucleated Red Blood Cells 0 /100 WBC (0-0); Total Cells Counted 200
--- NOTE | 2018-01-27 04:55 | XR ---
EXAM: XR Chest, 1 View CLINICAL HISTORY: Reason: sob TECHNIQUE: Frontal view of the chest. COMPARISON: 01/26/18 FINDINGS: Lungs: Interval increase in the degree of interstitial thickening which may reflect worsening pulmonary edema. More focal alveolar opacity seen within the left lower lung. Pleural space: Small bilateral pleural effusions. No pneumothorax. Heart: Cardiomegaly. Mediastinum: Unremarkable. Bones/joints: Degenerative changes of the spine. IMPRESSION: 1. Interval increase in the degree of interstitial thickening which may reflect worsening pulmonary edema. More focal alveolar opacity seen within the left lower lung. 2. Cardiomegaly. 3. Small bilateral pleural effusions.
[2018-01-27 04:57] LABS: Howell-Jolly Bodies Present; Polychromasia Present
[2018-01-27 05:02] LABS: Glucose,Whole Blood 88 mg/dL (75-99)
[2018-01-27] MEDS ORDERED: NALOXONE 0.4 MG/ML 1 ML VIAL IV PRN (05:27)
[2018-01-27 05:51] LABS: Magnesium 1.2 mg/dL (1.6-2.3); Phosphorus 2.9 mg/dL (2.5-4.5)
--- NOTE | 2018-01-27 07:28 | P.CNPUL ---
History of Present Illness Consult date: 01/27/18 Reason for consult: dyspnea, cough, hypoxemia, pneumonia, abnormal CXR/CT Chief complaint: Shortness of breath, sepsis, pneumonia, hypoxemic respiratory failure History of present illness: Pulmonary consult dated 01/27/2018 82-year-old gentleman who presented to the emergency department with a confusing picture of what appeared to be some pneumonitis versus heart failure. The patient was admitted on the . The patient apparently was admitted with a diagnosis of pneumonitis/pneumonia, possible sepsis, and possible heart failure. The patient was seen in the emergency room by one of the ER physicians. I was called about the patient. The patient apparently had a temperature elevation and an elevated lactic acid. The patient was admitted to the floor. Subsequent to that, the patient was in rapid response team called. The patient currently demonstrated some decreased saturations and elevated heart rate. The nurse responding. The patient was in heart failure and gave him 40 mg of Lasix IV push. He was placed on BiPAP therapy and moved to the ICU. He has a history of esophageal cancer, status post radiation and chemotherapy. His doctors including Dr. Resendez is a medical oncologist and Dr. Calin Judge is a radiation doctor. In addition, the patient has a history of hypertension diabetes GERD hyperlipidemia. Currently, the patient seemed be doing a lot better. The patient only on O2 at 4 L. He states he feels better. Saturations are in the low to mid 90s. He is getting up KVO saline IV. Chest x-ray show a pattern of worsening fluid overload. In addition, the patient has a history of osteoarthritis and a prior history of pneumonia. He also suffers from gout. He is a lifetime nonsmoker. He does not drink alcohol but rarely. Review of Systems A 14 point review of system is positive for primarily shortness of breath which has improved following the administration of oxygen BiPAP therapy and Lasix. So much so, that the patient is not requiring the BiPAP at this time and is much less short of breath. Past Medical History Past Medical History: Cancer, Diabetes Mellitus, GERD/Reflux, Hyperlipidemia, Hypertension, Osteoarthritis (OA), Pneumonia, Renal Disease Additional Past Medical History / Comment(s): gout, CARDOSO'S esophagus, Esaphageal cancer-completed the last of 28 tx on and has had so far 5 chemo tx last on was last thu09/02/17. pt's stated his weight has gone down from 201 to 183 over 6 weeks. has been drinking vanillia premier protein shakes daily am.hiatal hernia, kidney stones 40 years ago,pne 20 years ago, neuropathy, past stomach ulcers,"lt carotid 100% blkg, shingelles -2016 History of Any Multi-Drug Resistant Organisms: None Reported Past Surgical History: Appendectomy, Orthopedic Surgery Additional Past Surgical History / Comment(s): LILA shoulder rotator CUFF, ORIF LT FOOT thinks he has plate and screws, "esophagus radiofrequency ablation", lila cataracts-lens implants Past Anesthesia/Blood Transfusion Reactions: No Reported Reaction Additional Past Anesthesia/Blood Transfusion Reaction / Comment(s): . Past Psychological History: No Psychological Hx Reported Smoking Status: Never smoker Past Alcohol Use History: Rare Additional Past Alcohol Use History / Comment(s): no alcohol lately but did occ Past Drug Use History: None Reported - Past Family History Mother Family Medical History: Cancer Additional Family Medical History / Comment(s): . Father Family Medical History: Coronary Artery Disease (CAD) Additional Family Medical History / Comment(s): AT AGE 53 Medications and Allergies Home Medications Medication Instructions Recorded Confirmed Type Cetirizine HCl 10 mg PO DAILY PRN 07/05/15 01/26/18 History Nitroglycerin Sl Tabs [Nitrostat] 0.4 mg SUBLINGUAL Q5M PRN 07/05/15 01/26/18 History Metoprolol Tartrate [Lopressor] 25 mg PO DAILY 09/01/17 01/26/18 History Pravastatin Sodium [Pravachol] 80 mg PO HS 09/01/17 01/26/18 History Gabapentin [Neurontin] 600 mg PO BID 09/09/17 01/26/18 History Potassium Chloride ER [K-Dur 10] 10 meq PO DAILY 09/24/17 01/26/18 History Zolpidem [Ambien] 10 mg PO HS PRN 09/24/17 01/26/18 History metFORMIN HCL [Glucophage] 1,000 mg PO BID 09/24/17 01/26/18 History Aspirin EC [Ecotrin Low Dose] 81 mg PO DAILY 12/24/17 01/26/18 History Levofloxacin [Levaquin] 500 mg PO DAILY #5 tab 01/15/18 01/26/18 Rx Albuterol Inhaler [Ventolin Hfa 1 - 2 puff INHALATION RT-Q6H PRN 01/26/18 History Inhaler] Allopurinol [Zyloprim] 300 mg PO DAILY 01/26/18 01/26/18 History Gabapentin [Neurontin] 1,200 mg PO HS 01/26/18 01/26/18 History INSULIN LISPRO (HumaLOG) [humaLOG] 14 unit SQ ACHS 01/26/18 01/26/18 History INSULIN LISPRO (humaLOG) [humaLOG] See Protocol SQ ACHS 01/26/18 01/26/18 History Insulin Glargine,Hum.rec.anlog 14 unit SQ AC-BID 01/26/18 01/26/18 History [Lantus Solostar] Nystatin 100,000 Unit/ml Susp 10 ml PO QID 01/26/18 01/26/18 History [Mycostatin Oral Susp] Omeprazole 40 mg PO BID 01/26/18 01/26/18 History Torsemide [Demadex] 100 mg PO DAILY 01/26/18 01/26/18 History Allergies Allergy/AdvReac Type Severity Reaction Status Date / Time latex Allergy Itching Verified 01/26/18 13:52 penicillin G Allergy Rash/Hives Verified 01/26/18 13:52 Physical Exam Osteopathic Statement: *. No significant issues noted on an osteopathic structural exam other than those noted in the History and Physical/Consult. Vitals: Vital Signs Temp Pulse Pulse Resp BP BP Pulse Ox 01/27/18 06:00 124 H 115/69 93 L 01/27/18 05:50 113 H 109/60 92 L 01/27/18 05:40 122 H 116/66 93 L 01/27/18 05:30 100.2 F H 123 H 32 H 116/66 94 L 01/27/18 05:20 125 H 109/61 01/27/18 05:10 125 H 94 L 01/27/18 05:00 124 H 115/67 01/27/18 04:50 102.5 F H 125 H 119/70 98 01/27/18 04:00 103 F H 131 H 30 H 123/56 92 L 01/26/18 23:54 108 H 20 01/26/18 23:50 99.4 F 108 H 20 105/66 97 08/14/18 22:13 106 H 20 01/26/18 22:10 98.1 F 106 H 20 126/66 95 01/26/18 19:12 102 H 01/26/18 19:01 98 01/26/18 18:00 112 H 20 116/66 94 L 01/26/18 16:29 110 H 01/26/18 16:19 111 H 01/26/18 16:18 98.1 F 106 H 19 126/66 95 01/26/18 15:24 98.1 F 112 H 18 102/61 01/26/18 14:24 96 18 163/70 94 L 01/26/18 13:47 22 01/26/18 13:15 100.4 F H 01/26/18 13:14 97.7 F 130 H 24 163/70 95 01/26/18 13:00 97.6 F 51 L 20 116/66 77 L Intake and Output 01/26/18 01/27/18 01/27/18 22:59 06:59 14:59 Intake Total 10 10 Output Total 900 175 Balance -890 -165 Intake: IV 10 10 Sodium Chloride 0.9% 1, 10 10 000 ml @ 20 mls/hr IV . Q24H [facility] Rx#:[id number] Output: Urine 900 175 Other: Voiding Method Toilet Toilet # Voids 1 Weight 79.54 kg No acute distress, oriented 3. Nasal O2 in place at 4 L/m. HEENT examination is grossly unremarkable. Mucous membranes are moist. No oral lesions. Neck supple. Full range of motion. No adenopathy thyromegaly or neck vein distention. Cardiovascular examination reveals regular rhythm rate. S1-S2 normal. No S3 or S4. No discernible murmur noted. Heart sounds are distant. Lungs reveal bilateral crackles. A few scattered rhonchi noted. He is not really take deep breaths. Breath sounds are equal bilaterally. No wheezes are noted. Abdomen soft bowel sounds are heard. No masses or tenderness. Extremities are intact. No cyanosis or clubbing noted. Very minimal edema appreciated Skin is without rash or lesion. Neurologic examination is brief but nonfocal. Results - Laboratory Findings CBC and BMP: 01/27/18 04:12 01/27/18 04:12 PT/INR, D-dimer PT 10.2 sec (9.0-12.0) 01/26/18 13:26 INR 1.0 (<1.2) 01/26/18 13:26 Abnormal lab findings: Abnormal Labs 01/26/18 01/26/18 01/26/18 13:26 13:26 13:26 RBC Hgb Hct RDW 20.7 H Plt Count Neutrophils # 8.6 H Lymphocytes # 0.3 L Lymphocytes # (Manual) Chloride 96 L BUN 36 H Creatinine 1.30 H Glucose 249 H POC Glucose (mg/dL) Plasma Lactic Acid Nestor 8.2 H* Magnesium 01/26/18 01/26/18 01/27/18 17:31 20:51 04:12 RBC 4.26 L Hgb 12.1 L Hct 37.1 L RDW 21.4 H Plt Count 146 L Neutrophils # Lymphocytes # Lymphocytes # (Manual) 0.66 L Chloride BUN Creatinine Glucose POC Glucose (mg/dL) 289 H Plasma Lactic Acid Nestor 3.7 H* Magnesium 01/27/18 01/27/18 04:12 04:12 RBC Hgb Hct RDW Plt Count Neutrophils # Lymphocytes # Lymphocytes # (Manual) Chloride BUN 26 H Creatinine Glucose POC Glucose (mg/dL) Plasma Lactic Acid Nestor 5.3 H* Magnesium 1.2 L - Diagnostic Findings Chest x-ray: report reviewed, image reviewed (Labs x-rays and medications are all reviewed.) Assessment and Plan Assessment: Assessment Shortness of breath, which may be multifactorial in part related to fluid overload/heart failure as well as possible pneumonitis given his septic picture on admission Acute hypoxemic respiratory failure secondary to above. History of esophageal cancer, status post chemo and radiation therapy Previous history of pneumonia History of hypertension Diabetes mellitus by history History of gout History of Cardoso's esophagus History of GERD Hyperlipidemia Lactic acidemia Plan: Plan dated 01/27/2018 Currently, the patient's on O2 at 4 L by nasal cannula. Saturations are maintained. The patient appears not to need BiPAP at this time. The patient seemed to respond very nicely to BiPAP therapy and Lasix 40 mg IV push. The patient's IV is saline at KVO. The patient's chest x-ray does show a pattern of fluid overload/heart failure. Labs medications and x-rays are all reviewed. White count 8.2, hemoglobin 12.1 hematocrit 37.1 and platelet count 146,000. Sodium potassium chloride CO2 anion gap BUN and creatinine all normal. Most recent lactic acid level V.3 and magnesium 1.2. Urine looks clean. N-terminal pro BNP was only 2:15. The patient's currently on antibiotics in the form of Zithromax and Rocephin. I think that's appropriate for the time being. Is also on updrafts. We'll continue the Lasix at this time. Additional recommendations and suggestions are forthcoming. KVO the IV. Prognosis is guarded. Critical care time 32 minutes Time with Patient: Greater than 30
[2018-01-27] MEDS ORDERED: INSULIN DETEMIR 100 UNIT/ML 10 ML VIAL SQ SCH (07:30)
[2018-01-27] MEDS ORDERED: PANTOPRAZOLE 40 MG TABLET PO SCH (07:30)
[2018-01-27 08:31] LABS: Glucose,Whole Blood 113 mg/dL (75-99)
[2018-01-27] MEDS: INSULIN ASPART 100 UNIT/ML 1 ML 10 ML VIAL SQ SCH ×8 (08:54→20:53)
[2018-01-27] MEDS ORDERED: METOPROLOL TARTRATE 25 MG TAB PO SCH (09:00)
[2018-01-27] MEDS ORDERED: TORSEMIDE 20 MG TAB PO SCH (09:00)
[2018-01-27] MEDS: IPRATROPIUM-ALBUTEROL 3 ML NEB INHALATION SCH ×4 (09:01→19:30)
[2018-01-27] MEDS ORDERED: NOREPINEPHRIN 4 MG-0.9% NS PMX 4 MG/250 ML ML IV SCH (09:45)
[2018-01-27] MEDS: metFORMIN 500 MG TAB PO SCH ×2 (09:55→17:32)
[2018-01-27] MEDS: INSULIN DETEMIR 100 UNIT/ML 10 ML VIAL SQ SCH ×2 (09:55→20:54)
[2018-01-27] MEDS: ALLOPURINOL 300 MG TAB PO SCH (09:56)
[2018-01-27] MEDS: ASPIRIN 81 MG PO SCH (09:56)
[2018-01-27] MEDS: PANTOPRAZOLE 40 MG TABLET PO SCH ×2 (09:56→17:32)
[2018-01-27] MEDS: GABAPENTIN 300 MG CAP PO SCH ×3 (09:57→21:25)
[2018-01-27] MEDS: HEPARIN SODIUM,PORCINE 5,000 UNIT/ML 1 ML VIAL SQ SCH ×2 (09:57→20:52)
[2018-01-27] MEDS: POTASSIUM CHLORIDE ER 10 MEQ TAB.ER.PRT PO SCH (09:58)
[2018-01-27] MEDS: NYSTATIN 100,000 UNIT/ML SUSP 500,000 UNIT/5 ML CUP PO SCH ×4 (10:52→21:25)
[2018-01-27 12:14] LABS: Glucose,Whole Blood 98 mg/dL (75-99)
[2018-01-27] MEDS: CEFEPIME 2 GM in SODIUM CHLORIDE 0.9% 50 ML IVPB SCH ×2 (12:51→20:52)
--- NOTE | 2018-01-27 14:27 | FL ---
EXAMINATION TYPE: FL barium swallow w video DATE OF EXAM: 01/27/2018 COMPARISON: NONE HISTORY: Coughing at bedside TECHNIQUE: Fluoroscopy. FINDINGS: Fluoroscopic guidance was provided for the procedure performed in conjunction with the [facility] pathology department. Please see complete report forthcoming from the Speech Pathology departmen t. Various consistencies from thin liquid to solids were administered. Fluoroscopy time 1 minute 19 seconds Number of images: 0. No aspiration or penetration was evident. No significant pooling was observed in the vallecula. There was normal propulsion of the bolus. IMPRESSION: 1. Normal modified barium swallow.
--- NOTE | 2018-01-27 15:01 | P.CONS ---
History of Present Illness - Reason for Consult Consult date: 01/27/18 esophageal adenocarcinoma in remission Requesting physician: Casper Pascual - Chief Complaint LASHAWN, sepsis - History of Present Illness Please refer to consult dated 15 days ago (01/11) for full malignancy history. Pt had EGD on 01/13, biopsies neg for persistent or recurrent malignancy, pt is current on f/u for stage III esophageal adenocarcinoma. Pt admitted again for LASHAWN and SOB, his symptoms persisted and progressed over several days, pt had T-max 102.5F, he is activity intolerant, weak, cough with only small amt of sputum, labored breathing, swelling in the legs, he has improved with intensive car since last night. No vomiting, indigestion or heart burn, diarrhea, may be constipated. Review of Systems ROS as stated in HPI Past Medical History Past Medical History: Cancer, Diabetes Mellitus, GERD/Reflux, Hyperlipidemia, Hypertension, Osteoarthritis (OA), Pneumonia, Renal Disease Additional Past Medical History / Comment(s): gout, CARDOSO'S esophagus, Esaphageal cancer-completed the last of 28 tx on and has had so far 5 chemo tx last on was last thu09/02/17. pt's stated his weight has gone down from 201 to 183 over 6 weeks. has been drinking vanillia premier protein shakes daily am.hiatal hernia, kidney stones 40 years ago,pne 20 years ago, neuropathy, past stomach ulcers,"lt carotid 100% blkg, shingelles -2016 History of Any Multi-Drug Resistant Organisms: None Reported Past Surgical History: Appendectomy, Orthopedic Surgery Additional Past Surgical History / Comment(s): LILA shoulder rotator CUFF, ORIF LT FOOT thinks he has plate and screws, "esophagus radiofrequency ablation", lila cataracts-lens implants Past Anesthesia/Blood Transfusion Reactions: No Reported Reaction Additional Past Anesthesia/Blood Transfusion Reaction / Comm: . Past Psychological History: No Psychological Hx Reported Smoking Status: Never smoker Past Alcohol Use History: Rare Additional Past Alcohol Use History / Comment(s): no alcohol lately but did occ Past Drug Use History: None Reported - Past Family History Mother Family Medical History: Cancer Additional Family Medical History / Comment(s): . Father Family Medical History: Coronary Artery Disease (CAD) Additional Family Medical History / Comment(s): AT AGE 53 Medications and Allergies Home Medications Medication Instructions Recorded Confirmed Type Cetirizine HCl 10 mg PO DAILY PRN 07/05/15 01/26/18 History Nitroglycerin Sl Tabs [Nitrostat] 0.4 mg SUBLINGUAL Q5M PRN 07/05/15 01/26/18 History Metoprolol Tartrate [Lopressor] 25 mg PO DAILY 09/01/17 01/26/18 History Pravastatin Sodium [Pravachol] 80 mg PO HS 09/01/17 01/26/18 History Gabapentin [Neurontin] 600 mg PO BID 09/09/17 01/26/18 History Potassium Chloride ER [K-Dur 10] 10 meq PO DAILY 09/24/17 01/26/18 History Zolpidem [Ambien] 10 mg PO HS PRN 09/24/17 01/26/18 History metFORMIN HCL [Glucophage] 1,000 mg PO BID 09/24/17 01/26/18 History Aspirin EC [Ecotrin Low Dose] 81 mg PO DAILY 12/24/17 01/26/18 History Levofloxacin [Levaquin] 500 mg PO DAILY #5 tab 01/15/18 01/26/18 Rx Albuterol Inhaler [Ventolin Hfa 1 - 2 puff INHALATION RT-Q6H PRN 01/26/18 History Inhaler] Allopurinol [Zyloprim] 300 mg PO DAILY 01/26/18 01/26/18 History Gabapentin [Neurontin] 1,200 mg PO HS 01/26/18 01/26/18 History INSULIN LISPRO (HumaLOG) [humaLOG] 14 unit SQ [facility] 01/26/18 01/26/18 History INSULIN LISPRO (humaLOG) [humaLOG] See Protocol SQ [facility] 01/26/18 01/26/18 History Insulin Glargine,Hum.rec.anlog 14 unit SQ AC-BID 01/26/18 01/26/18 History [Lantus Solostar] Nystatin 100,000 Unit/ml Susp 10 ml PO QID 01/26/18 01/26/18 History [Mycostatin Oral Susp] Omeprazole 40 mg PO BID 01/26/18 01/26/18 History Torsemide [Demadex] 100 mg PO DAILY 01/26/18 01/26/18 History Allergies Allergy/AdvReac Type Severity Reaction Status Date / Time latex Allergy Itching Verified 01/26/18 13:52 penicillin G Allergy Rash/Hives Verified 01/26/18 13:52 Physical Exam Vitals: Vital Signs Temp Pulse Pulse Resp BP BP Pulse Ox 01/27/18 13:09 93 01/27/18 12:57 90 01/27/18 12:30 91 32 H 93/57 95 01/27/18 12:00 98.6 F 92 18 97/60 95 01/27/18 11:30 101 H 28 H 95/57 93 L 01/27/18 11:00 99.3 F 96 21 86/52 94 L 01/27/18 10:30 103 H 22 115/72 94 L 01/27/18 10:00 99 21 96/56 91 L 01/27/18 09:30 100 22 82/52 93 L 01/27/18 09:19 99 01/27/18 09:07 100 01/27/18 09:00 99 25 H 83/55 94 L 01/27/18 08:30 98.0 F 118 H 12 84/55 89 L 01/27/18 06:00 124 H 115/69 93 L 01/27/18 05:50 113 H 109/60 92 L 01/27/18 05:40 122 H 116/66 93 L 01/27/18 05:30 100.2 F H 123 H 32 H 116/66 94 L 01/27/18 05:20 125 H 109/61 01/27/18 05:10 125 H 94 L 01/27/18 05:00 124 H 115/67 01/27/18 04:50 102.5 F H 125 H 119/70 98 01/27/18 04:00 103 F H 131 H 30 H 123/56 92 L 01/26/18 23:54 108 H 20 01/26/18 23:50 99.4 F 108 H 20 105/66 97 01/26/18 22:13 106 H 20 01/26/18 22:10 98.1 F 106 H 20 126/66 95 01/26/18 19:12 102 H 01/26/18 19:01 98 01/26/18 18:00 112 H 20 116/66 94 L 01/26/18 16:29 110 H 01/26/18 16:19 111 H 08/14/18 16:18 98.1 F 106 H 19 126/66 95 01/26/18 15:24 98.1 F 112 H 18 102/61 Intake and Output 01/26/18 01/27/18 01/27/18 22:59 06:59 14:59 Intake Total 10 690 Output Total 900 500 Balance -890 190 Intake: IV 10 90 Sodium Chloride 0.9% 1, 10 90 000 ml @ 20 mls/hr IV . Q24H [facility] Rx#:[id number] Oral 600 Output: Urine 900 500 Other: Voiding Method Toilet Indwelling Catheter Urinal # Voids 1 # Bowel Movements 1 Weight 79.54 kg - Constitutional General appearance: cooperative, obese, severe distress - EENT dry mucus membranes Eyes: anicteric sclerae, EOMI - Neck Neck: no lymphadenopathy - Respiratory Respiratory: bilateral: rales, prolonged expiration - Cardiovascular Heart sounds: normal: S1, S2 leg Peripheral Edema: bilateral: 1+ - Gastrointestinal General gastrointestinal: no absent bowel sounds, no decreased bowel sounds, no distended, no hepatomegaly, no hyperactive bowel sounds, normal bowel sounds, no organomegaly, no rigid, no scaphoid, soft, no splenomegaly, no tenderness, no umbilical hernia, no ventral hernia - Integumentary Integumentary: pale - Neurologic Neurologic: CNII-XII intact - Musculoskeletal Musculoskeletal: generalized weakness - Psychiatric Psychiatric: A&O x's 3, appropriate affect, intact judgment & insight Results CBC & Chem 7: 01/27/18 04:12 01/27/18 04:12 Labs: Abnormal Lab Results - Last 24 Hours (Table) 01/26/18 01/26/18 01/27/18 Range/Units 17:31 20:51 04:12 RBC 4.26 L (4.30-5.90) m/uL Hgb 12.1 L (13.0-17.5) gm/dL Hct 37.1 L (39.0-53.0) % RDW 21.4 H (11.5-15.5) % Plt Count 146 L (150-450) k/uL Lymphocytes # (Manual) 0.66 L (1.0-4.8) k/uL BUN (9-20) mg/dL POC Glucose (mg/dL) 289 H (75-99) mg/dL Plasma Lactic Acid Nestor 3.7 H* (0.7-2.0) mmol/L Magnesium (1.6-2.3) mg/dL 01/27/18 01/27/18 01/27/18 Range/Units 04:12 04:12 07:55 RBC (4.30-5.90) m/uL Hgb (13.0-17.5) gm/dL Hct (39.0-53.0) % RDW (11.5-15.5) % Plt Count (150-450) k/uL Lymphocytes # (Manual) (1.0-4.8) k/uL BUN 26 H (9-20) mg/dL POC Glucose (mg/dL) (75-99) mg/dL Plasma Lactic Acid Nestor 5.3 H* 3.6 H* (0.7-2.0) mmol/L Magnesium 1.2 L (1.6-2.3) mg/dL 01/27/18 Range/Units 08:30 RBC (4.30-5.90) m/uL Hgb (13.0-17.5) gm/dL Hct (39.0-53.0) % RDW (11.5-15.5) % Plt Count (150-450) k/uL Lymphocytes # (Manual) (1.0-4.8) k/uL BUN (9-20) mg/dL POC Glucose (mg/dL) 113 H (75-99) mg/dL Plasma Lactic Acid Nestor (0.7-2.0) mmol/L Magnesium (1.6-2.3) mg/dL Microbiology - Last 24 Hours (Table) 01/26/18 14:20 Urine Culture - Preliminary Urine,Clean Catch Comments: reviewed barium swallow report Chest x-ray: report reviewed Assessment and Plan (1) Adenocarcinoma of esophagus, stage 3 Narrative/Plan: Pt is s/p concurrent chemo/XRT with recent EGD on 01/13 biopsies neg for recurrent malignancy. Did speak with Radiation Oncology about radiation pneumonitis. We reviewed the radiation field and tissue exposure. Symptoms may be r/t treatment or exacerbating cardiopulmonary conditions. Despite cause management remains the same, treat for infection and use steroids just with a much slower taper, over maybe 4 weeks. Pt does have co-morbid conditions that are contributing to his his acute condition. Pt is being managed and monitored in Intensive care setting and we will defer acute care mgmt to [facility]. Current Visit: No Status: Chronic Priority: Medium Code(s): C15.9 - MALIGNANT NEOPLASM OF ESOPHAGUS, UNSPECIFIED SNOMED Code(s): 536163693
[2018-01-27] MEDS ORDERED: VANCOMYCIN IV PER PHARMACY 1 EACH MISC MISCELLANE PRN (15:17)
[2018-01-27] MEDS: MAGNESIUM SULFATE-D5W PMX 1 GM in DEXTROSE/WATER 1 100ML.BAG IVPB SCH ×2 (15:25→16:34)
[2018-01-27] MEDS ORDERED: AZITHROMYCIN 500 MG in DEXTROSE 5% IN WATER 250 ML IVPB SCH ×2 (16:00)
[2018-01-27] MEDS ORDERED: cefTRIAXone IN SWFI 1,000 MG/10 ML SYRINGE IVP SCH (16:00)
[2018-01-27] MEDS: VANCOMYCIN 1,500 MG in SODIUM CHLORIDE 0.9% 250 ML IVPB SCH (16:36)
[2018-01-27 17:20] LABS: Glucose,Whole Blood 125 mg/dL (75-99)
--- NOTE | 2018-01-27 18:05 | PN ---
PROGRESS NOTE DATE OF SERVICE: 01/27/2018 This 82-year-old gentleman who was admitted with bibasilar pneumonia with also had a possible fluid overload last night. The patient had significant shortness of breath and after Lasix, the patient improved significantly. Ejection fraction was normal about 6 months ago. The troponin is found to be slightly elevated at 0.038. The patient admitted for monitoring closely at this time. There is no history of fever, rigors. PAST MEDICAL HISTORY: Reviewed. REVIEW OF SYSTEMS: CARDIOVASCULAR: As mentioned earlier. Respirations. As mentioned earlier. GI: No nausea or vomiting. : No dysuria or hematuria. Central nervous system: As mentioned earlier. CURRENT MEDICATIONS: 1. Tylenol 500 mg q.6h p.r.n. 2. [place] 5 mg q.6h. 3. DuoNeb q.i.d. and p.r.n. 5. Xanax 0.5 t.i.d. _p.r.n. 6. Aspirin 81 mg. 8. Neurontin 1200 mg p.o. q.h.s. 9. Heparin 5000 subcu b.i.d. 10.NovoLog scale. 11.Levemir 40 units subcu q.h.s. 12.Levemir 14 subcu a.c. breakfast. 13.Claritin 10 mg daily. 14.Magnesium 1 g daily. 15.Lopressor. 16.Narcan. 17.Levophed drip. 18.Protonix. 19.Pravachol. 20.Ambien. PHYSICAL EXAM: Patient is alert, oriented x3. The pulse was 92, blood pressure 99/60, respiration 18, temperature 98.6, pulse ox 94% on 5 L. HEENT: Conjunctivae normal. Oral mucosa moist. Neck is no jugular venous distention. No carotid bruit. No lymph node enlargement. Cardiovascular: S1, S2 muffled. Respirations: Breath sounds diminished in the bases. A few scattered rhonchi and crackles. ABDOMEN: Soft, nontender. No mass palpable. Legs no edema. No swelling. Central nervous system: No focal deficits. LABS: Troponin 0.038. WBC 8.8, hemoglobin 12.1, sodium 140, potassium 3.8. ASSESSMENT: 1. Bilateral pneumonia, with severe sepsis and septic shock. 2. Hypotension possibly secondary to sepsis. 3. Possibly aspiration pneumonia. 4. History of esophageal carcinoma, status post chemo/radiation. 5. Diabetes mellitus type 2. 6. Gastroesophageal reflux disease. 7. Hypertension. 8. Hyperlipidemia. 9. History of degenerative joint disease. 10.Left carotid stenosis. 11.History of gout. 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 13.History of nephrolithiasis. 14.History of gastric ulcer. 15.Appendectomy. 16.Increased creatinine with chronic kidney disease stage 3. 17.Increased plasma lactic acid. RECOMMENDATIONS AND DISCUSSION: Recommend to continue current medications and symptomatic treatment. Otherwise, at this time, I recommend to continue broad spectrum IV antibiotics, diuretics. I would also recommend a 2D echo with Doppler and cardiology evaluation also. Otherwise, I would also recommend close follow with Dr. Akhtar in the ICU. Otherwise, the complete occlusion of the left internal carotid and 50% occlusion of the right, we will also obtain a vascular surgery consult as well. The prognosis guarded because of multiple complex medical conditions. A video fluoroscopic swallow done, showed normal findings. MMODL / IJN: [id number] / KIANNA
[2018-01-27 20:03] LABS: Hemoglobin A1C 7.5 % (4.0-6.0)
--- NOTE | 2018-01-27 20:19 | CONS ---
CONSULTATION DATE OF SERVICE: 01/27/2018. REASON FOR CONSULTATION: Pneumonia and sepsis. HISTORY OF PRESENT ILLNESS: The patient is an 82-year-old male who was recently admitted to this facility 01/10/2018 until 01/15/2018. The patient did have evidence of pneumonia. The patient's sputum was usual respiratory yuridia. The patient was advised to finish therapy with oral Levaquin. The patient has now been brought back to the [facility] ER with chief complaints of generalized weakness, no energy, increasing shortness of breath. The patient has more coughing. His symptoms significantly worse since ThursdayJanuary,. With persistent worsening symptoms, the patient has been brought into the ER for further evaluation. On arrival to the ER, the patient was febrile with a fever of 100.4. Subsequently did spike a fever of 103 degrees Fahrenheit this morning. The patient did have a normal white count, though lactic acid elevated at 3.6 initially and admitted to the floor, subsequently transferred to the ICU for hypertension and respiratory distress. The patient did have a chest x-ray completed, which shows cardiomegaly with interstitial pattern and bibasilar atelectasis or infiltrate with an effusion. A repeat x-ray done this morning did show increased interval increase in degree of interstitial thickening which may reflect worsening pulmonary edema or focal pneumonia of the left lower lung. fluoroscope swallow test came back to be normal swallow. Patient was initially started on Rocephin and Zithromax. Antibiotic has been cefepime for by myself which the patient has tolerated so far. The patient currently denies having any difficulty swallowing. He denies having any choking on the food. No nausea, no vomiting or any diarrhea. REVIEW OF SYSTEMS: Constitutionally positive for weakness along with the fever. EYES: No complaint. ENT: No complaint. RESPIRATORY: As per HPI. CARDIOVASCULAR: No complaint. GENITOURINARY: No complaint. GASTROINTESTINAL: No complaint. MUSCULOSKELETAL: No complaint. INTEGUMENTARY: No complaint. PSYCHOLOGICAL: No complaint. ENDOCRINE: No complaint. NEUROLOGIC: No complaint. PAST MEDICAL HISTORY: Gastroesophageal reflux disease, esophageal cancer, hypertension, hyperlipidemia, type 2 diabetes mellitus, osteoarthritis, pneumonia. PAST SURGICAL HISTORY: Bilateral shoulder rotator cuff repair, ORIF of the left foot, bilateral cataract surgery, heart catheterization, hernia repair, EGD and esophageal biopsy. SOCIAL HISTORY: Denies smoking. Occasionally drinks. No drug use. FAMILY HISTORY: Father with history of coronary disease, at age of 53. Mother at age of with a history of thyroid cancer. ALLERGIES: PENICILLIN with a rash. No history of anaphylaxis. MEDICATION: Currently include the patient is on: 1. Tylenol. 2. [place]. 3. DuoNeb. 4. Zyloprim. 5. Xanax. 6. Aspirin. 7. Cefepime 2 g q.12h. 8. Heparin. 9. Neurontin. 10.NovoLog. 11.Levemir. 12.Magnesium sulfate. 13.Glucophage. 14.Lopressor. 15.Narcan. 16.Nitrostat. 17.Levophed. 18.Nystatin swish and swallow. 19.Protonix. 20.Pravachol. EXAMINATION: Blood pressure is 97/60 with a pulse of 92, temperature 98.6, T-max of 102. He is 95% on 5L nasal cannula. General description is an elderly male up in the bed in no distress. No tachypnea or accessory muscle of respiration use. HEENT shows pallor. No scleral icterus. Oral mucous membranes dry. NECK: Trachea central. No thyromegaly. LUNGS: Unlabored breathing. Decreased breath sounds at the base. No wheeze or crackle. HEART: S1, S2. Regular rate and rhythm. No murmur. ABDOMEN: Soft no tenderness. No guarding or rigidity. EXTREMITIES: No edema of feet. SKIN: No rash or mass palpable. Neurologically, patient is awake, alert, oriented x3. Mood and affect normal. LABS: Hemoglobin is 12.1, white count of 8.2 with a BUN of 26, creatinine 1.10. White count has been normal. Lactic acid 5.3. DIAGNOSTIC IMPRESSION AND PLAN: 1. Patient admitted to the hospital with sepsis and patient did have a fever of 102 degrees Fahrenheit. The patient did have increasing respiratory distress with evidence of bilateral basilar infiltrates, more marked on the left lung with concern for possible left lung pneumonia, initial concern for possible aspiration etiology. However, the patient did have normal barium swallow and he did mention he did not have any choking or coughing episodes after he eats. In view of the patient's recent hospitalization, the concern is for possible resistant gram- negative or a gram-positive pathogen. 2. Patient does have a PENICILLIN ALLERGY that will limit the number of antibiotics that could be safely used. PLAN: 1. Rocephin and Zithromax have been discontinued. 2. The patient will treated with a combination of cefepime 2 g q.12h as well as vancomycin, pharmacy to dose, target of 15, while watching his cultures and clinical course closely. 3. Obtain sputum for Gram stain, culture and sensitivity. 4. We will follow up on clinical condition and culture to further adjust medication if needed. Thank you for this consultation. Will follow this patient along with you. MMODL / IJN: [id number] /
--- NOTE | 2018-01-27 20:25 | CONS ---
CONSULTATION Mr. Bradford is an 82-year-old gentleman who is seen for cardiac evaluation. This patient's medical records were reviewed. The patient came to the emergency room yesterday with a complaint of shortness of breath and fatigue. Patient was having some fever and chills. This patient was just recently discharged from the hospital after being treated for pneumonia. The patient had last blood work done on showing lactic acid was 4.5, and yesterday the patient's lactic acid was 8.2. Patient was admitted with pneumonia and sepsis. Patient was on the floor. The patient received 3 L of fluid. Subsequently, he developed acute respiratory distress. The A-team was called in and the patient was transferred to the intensive care unit and was given 1 dose of IV Lasix. The patient does not have any definite cardiac history of prior myocardial infarction. The patient has a history of diabetes and hypertension. The patient has a history of esophageal cancer and the patient subsequently has received chemotherapy as well as radiation therapy. During the last recent admission, the patient was treated for possible left lower pneumonia with antibiotic treatment. HOME MEDICATIONS: Include Nitrostat, Lopressor, Pravachol, Neurontin, potassium, metformin, aspirin, gabapentin, Zyloprim, insulin and Demadex 100 mg daily. PAST MEDICAL HISTORY: Includes a history of esophageal cancer, bilateral shoulder rotator cuff surgery and cataract surgery. History of diabetes and hypertension. PHYSICAL EXAMINATION: At present reveals an 82-year-old gentleman who is lying comfortably in the bed. The patient's heart rate is 105 per minute, respiratory rate is 20. Blood pressure at present is 113/63 mmHg. Patient had intermittently low blood pressure early in the morning. Skin is dry and warm. The patient did have a temperature of 102.5 earlier in the morning. On admission, patient's temperature was 100.4. HEENT examination is negative. NECK: Supple. Jugular venous pressure is difficult to assess. Heart: First and second heart sounds are normal. LUNGS: Bilateral basal rales. Coarse rales are noted. Abdomen is negative. Extremities: There is no evidence of any leg edema. The patient's EKG shows evidence of sinus tachycardia. Laboratory tests shows 1 troponin is 0.038. Hemoglobin is 12.1, creatinine is 1.10. Patient's lactic acid now is 3.6, the patient's proBNP level was only 215 yesterday. Echocardiogram reviewed which revealed normal left ventricular systolic function. Left ventricular diastolic function is also fairly normal. IVC is collapsing and not suggestive of any elevated right atrial pressure. FINAL IMPRESSION: 1. This patient is primarily admitted with respiratory distress and fever which appears to be secondary to pneumonia and which could be secondary to pneumonia and sepsis. The patient may have developed some fluid overload after the 3 L of fluid. Initial BNP is normal. We will repeat the BNP. The patient's overall echocardiogram his normal, reveals normal left ventricular systolic function. 2. Abnormal troponin most likely secondary to supply demand mismatch due to the patient's hypoxia, sepsis and lactic acidosis. Serial troponins will be obtained and we will also repeat the EKG. Because of the borderline low blood pressure, we will hold Lopressor at present. MYCHALL / IJN: [id number] /
[2018-01-27 20:46] LABS: Glucose,Whole Blood 95 mg/dL (75-99)
--- NOTE | 2018-01-27 20:46 | CONS ---
DATE OF CONSULTATION: 01/27/2018 This is an 82-year-old gentleman who is well known to me from the office. The patient has history of CA of the esophagus with radiation. The patient was seen because of coronary artery evaluation in my office. 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 No history of TIA and no CVAs. 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 No history of TIA and no CVAs. EXAMINATION: Patient was seen in the intensive care unit. Patient is lying comfortably in bed , but she is still very short of breath. Neck is supple. Chest has rhonchi bilateral. Abdomen is soft. Neuro has bilateral motor function normal. At this point patient is stable from carotid point of view. The patient will be followed in my office when he is discharged from the from the hospital. If the patient develops any evidence of TIA or any vascular issue, we will follow with you. NAE / SHAHRIARN: [id number] / MTDD
[2018-01-27] MEDS ORDERED: FUROSEMIDE 10 MG/ML 4 ML VIAL IV SCH (21:00)
[2018-01-27] MEDS: PRAVASTATIN SODIUM 80 MG TAB PO SCH (21:25)
[2018-01-27] MEDS: ZOLPIDEM 10 MG TAB PO PRN (22:13)
[2018-01-28] MEDS: ALPRAZolam 0.25 MG TAB PO PRN ×2 (02:11→17:00)
[2018-01-28] MEDS ORDERED: FUROSEMIDE 10 MG/ML 2 ML VIAL IV ONE (02:44)
[2018-01-28 03:37] LABS: Glucose,Whole Blood 98 mg/dL (75-99)
[2018-01-28] MEDS ORDERED: LORazepam 2 MG/ML INJ IV ONE (04:07)
[2018-01-28 04:52] LABS: Anisocytosis Moderate; Basophils % (A) 0 %; Eosinophils # (A) 0.1 k/uL (0-0.7); Eosinophils % (A) 2 %; HCT 35.2 % (39.0-53.0); HGB 11.6 gm/dL (13.0-17.5); Lymphocytes # (A) 0.3 k/uL (1.0-4.8); Lymphocytes % (A) 4 %; MCH 28.1 pg (25.0-35.0); MCHC 32.8 g/dL (31.0-37.0); MCV 85.5 fL (80.0-100.0); Mean Platelet Volume 7.3; Microcytosis Slight; Monocytes # (A) 0.2 k/uL (0-1.0); Monocytes % (A) 4 %; Neutrophils # (A) 5.3 k/uL (1.3-7.7); Neutrophils % (A) 89 %; Platelet Count 134 k/uL (150-450); RBC 4.12 m/uL (4.30-5.90); RDW 20.8 % (11.5-15.5)
[2018-01-28 04:58] LABS: Calcium 8.4 mg/dL (8.4-10.2); Magnesium 1.7 mg/dL (1.6-2.3); Phosphorus 2.5 mg/dL (2.5-4.5); Potassium 3.2 mmol/L (3.5-5.1)
[2018-01-28] MEDS: ACETAMINOPHEN IV (For NPO) 1,000 MG in EMPTY BAG 1 BAG IVPB PRN ×2 (05:00→23:45)
[2018-01-28] MEDS: POTASSIUM CHLORIDE 10 MEQ in WATER FOR INJECTION 1 100ML.BAG IVPB SCH ×4 (06:42→11:59)
[2018-01-28] MEDS: SODIUM CHLORIDE 0.9% 1,000 ML IV SCH ×3 (06:43→23:57)
[2018-01-28] MEDS: MAGNESIUM SULFATE-D5W PMX 1 GM in DEXTROSE/WATER 1 100ML.BAG IVPB SCH ×3 (06:43→09:25)
[2018-01-28 07:21] LABS: Glucose,Whole Blood 109 mg/dL (75-99)
[2018-01-28] MEDS: IPRATROPIUM-ALBUTEROL 3 ML NEB INHALATION SCH ×4 (07:42→20:26)
--- NOTE | 2018-01-28 07:47 | XR ---
EXAMINATION TYPE: XR chest 1V DATE OF EXAM: 01/28/2018 COMPARISON: 01/27/2018 HISTORY: Cough TECHNIQUE: Single frontal view of the chest is obtained. FINDINGS: There is persistent mild interstitial prominence throughout. There is improved aeration of the left lung base in comparison the prior. Blunting of costophrenic angles may relate to trace pleu ral effusions. Cardiomediastinal silhouette is mildly enlarged as seen on the prior. Osseous structur es appear intact with degenerative changes of the spine and shoulders. IMPRESSION: Improving aeration of the left lung base although there are persistent increased interst itial lung markings that may relate to atypical pneumonitis or interstitial pulmonary edema.
--- NOTE | 2018-01-28 07:58 | P.PN ---
Subjective Progress Note Date: 01/28/18 Principal diagnosis: Sepsis/pneumonitis Progress note dated 01/28/2018 This is an 82-year-old male initially seen in consultation for shortness of breath. The shortness of breath is likely related to fluid overload/heart failure or could possibly related to pneumonitis. In addition, there were some concerns about radiation pneumonitis/fibrosis given his previous radiation for esophageal cancer. The patient has acute hypoxemic respiratory failure history of esophageal cancer status post chemoradiation, previous history of pneumonia, hypertension, diabetes, gout, Hernandez's esophagus, GERD, hyperlipidemia and lactic acidemia. Currently, the patient seemed to be slightly improved. Is currently on BiPAP with an IPAP of 12 and EPAP of 5. FiO2 is 50%. Saline IV is at KVO. Saturations are 100%. We gave him a small amount of Ativan IV. Seems of settle him down. He is sleeping and seems to be comfortable. Much less fidgety. Chest x-ray is certainly improved. Objective - Vital Signs Vital signs: Vital Signs Temp 99.5 F 01/28/18 06:00 Pulse 90 01/28/18 07:42 Resp 38 H 01/28/18 04:00 BP 98/66 01/28/18 06:00 Pulse Ox 98 01/28/18 06:00 Intake & Output 01/27/18 01/28/18 01/28/18 18:59 06:59 18:59 Intake Total 1520 600 Output Total 525 1565 Balance 995 -965 Intake: IV 680 360 ACETAMINOPHEN IV (For NPO 100 ) 1,000 mg In Empty Bag 1 bag @ 400 mls/hr IVPB Q6HR PRN Rx#:[id number] Cefepime 2 gm In Sodium 120 100 Chloride 0.9% 50 ml @ 100 mls/hr IVPB Q12HR MELVA Rx #:[id number] Magnesium Sulfate-D5w Pmx 200 0 1 gm In Dextrose/Water 1 100ml.bag @ 100 mls/hr IVPB Q1H MELVA Rx#: [id number] Sodium Chloride 0.9% 1, 110 160 000 ml @ 20 mls/hr IV . Q24H MELVA Rx#:[id number] Vancomycin 1,500 mg In 250 0 Sodium Chloride 0.9% 250 ml @ 125 mls/hr IVPB Q16H MELVA Rx#:[id number] Oral 840 240 Output: Urine 525 1565 Other: Voiding Method Urinal Indwelling Catheter # Voids 0 # Bowel Movements 1 - Exam No acute distress, sleeping, BiPAP mask in place. The patient does appear to be more comfortable HEENT examination is grossly unremarkable. Mucous membranes are moist. No oral lesions. Neck supple. Full range of motion. No adenopathy thyromegaly or neck vein distention. Cardiovascular examination reveals regular rhythm rate. S1-S2 normal. No S3 or S4. No discernible murmur noted. Heart sounds are distant. Lungs reveal bilateral crackles. A few scattered rhonchi noted. Breath sounds are equal bilaterally. No wheezes are noted. Abdomen soft bowel sounds are heard. No masses or tenderness. Extremities are intact. No cyanosis or clubbing noted. Very minimal edema appreciated Skin is without rash or lesion. Neurologic examination is brief but nonfocal. - Labs CBC & Chem 7: 01/28/18 04:13 01/28/18 04:13 Labs: Abnormal Lab Results - Last 24 Hours (Table) 01/27/18 01/27/18 01/27/18 Range/Units 04:12 07:55 08:30 RBC (4.30-5.90) m/uL Hgb (13.0-17.5) gm/dL Hct (39.0-53.0) % RDW (11.5-15.5) % Plt Count (150-450) k/uL Lymphocytes # (1.0-4.8) k/uL Potassium (3.5-5.1) mmol/L POC Glucose (mg/dL) 113 H (75-99) mg/dL Hemoglobin A1c 7.5 H (4.0-6.0) % Plasma Lactic Acid Nestor 3.6 H* (0.7-2.0) mmol/L Troponin I (0.000-0.034) ng/mL 01/27/18 01/27/18 01/28/18 Range/Units 13:50 17:18 01:59 RBC (4.30-5.90) m/uL Hgb (13.0-17.5) gm/dL Hct (39.0-53.0) % RDW (11.5-15.5) % Plt Count (150-450) k/uL Lymphocytes # (1.0-4.8) k/uL Potassium (3.5-5.1) mmol/L POC Glucose (mg/dL) 125 H (75-99) mg/dL Hemoglobin A1c (4.0-6.0) % Plasma Lactic Acid Nestor (0.7-2.0) mmol/L Troponin I 0.038 H* 0.035 H* (0.000-0.034) ng/mL 01/28/18 01/28/18 01/28/18 Range/Units 04:13 04:13 07:19 RBC 4.12 L (4.30-5.90) m/uL Hgb 11.6 L (13.0-17.5) gm/dL Hct 35.2 L (39.0-53.0) % RDW 20.8 H (11.5-15.5) % Plt Count 134 L (150-450) k/uL Lymphocytes # 0.3 L (1.0-4.8) k/uL Potassium 3.2 L (3.5-5.1) mmol/L POC Glucose (mg/dL) 109 H (75-99) mg/dL Hemoglobin A1c (4.0-6.0) % Plasma Lactic Acid Nestor (0.7-2.0) mmol/L Troponin I (0.000-0.034) ng/mL Microbiology - Last 24 Hours (Table) 01/26/18 14:20 Urine Culture - Final Urine,Clean Catch 01/26/18 13:26 Blood Culture - Preliminary Blood No Growth after 24 hours Assessment and Plan Assessment: Assessment Shortness of breath, which may be multifactorial in part related to fluid overload/heart failure as well as possible pneumonitis given his septic picture on admission Acute hypoxemic respiratory failure secondary to above. History of esophageal cancer, status post chemo and radiation therapy Rule out radiation pneumonitis/fibrosis Previous history of pneumonia History of hypertension Diabetes mellitus by history History of gout History of Hernandez's esophagus History of GERD Hyperlipidemia Lactic acidemia Plan: Plan dated 01/27/2018 Currently, the patient's on O2 at 4 L by nasal cannula. Saturations are maintained. The patient appears not to need BiPAP at this time. The patient seemed to respond very nicely to BiPAP therapy and Lasix 40 mg IV push. The patient's IV is saline at KVO. The patient's chest x-ray does show a pattern of fluid overload/heart failure. Labs medications and x-rays are all reviewed. White count 8.2, hemoglobin 12.1 hematocrit 37.1 and platelet count 146,000. Sodium potassium chloride CO2 anion gap BUN and creatinine all normal. Most recent lactic acid level V.3 and magnesium 1.2. Urine looks clean. N-terminal pro BNP was only 2:15. The patient's currently on antibiotics in the form of Zithromax and Rocephin. I think that's appropriate for the time being. Is also on updrafts. We'll continue the Lasix at this time. Additional recommendations and suggestions are forthcoming. KVO the IV. Prognosis is guarded. Critical care time 32 minutes Plan dated 01/28/2018 The patient's white blood count is 6 hemoglobin 11.6 hematocrit 35.2 and platelet count is 134,000. Electrolytes were completely normal save for borderline low potassium at 3.2. The chest x-ray certainly shows improvement. Thus far, all microbiology is negative. Medications are reviewed in detail. The patient seems to be a bit more stable. I do believe that the lorazepam IV has really helped. We'll continue on BiPAP for now. Prognosis is guarded. Hopefully he'll continue to show improvement. He remains on good antibiotics in the form of cefepime and vancomycin as per ID recommendations. Additional recommendations and suggestions are forthcoming. Again prognosis is guarded. Critical care time 33 minutes Time with Patient: Greater than 30
[2018-01-28] MEDS ORDERED: Magnesium Replacement Protocol 1 EACH MISC MISCELLANE PRN (08:13)
[2018-01-28] MEDS ORDERED: METOPROLOL TARTRATE 12.5 MG TAB PO SCH (09:00)
[2018-01-28] MEDS: INSULIN ASPART 100 UNIT/ML 1 ML 10 ML VIAL SQ SCH ×8 (09:18→21:33)
[2018-01-28] MEDS: INSULIN DETEMIR 100 UNIT/ML 10 ML VIAL SQ SCH ×2 (09:19→21:32)
[2018-01-28] MEDS: metFORMIN 500 MG TAB PO SCH ×2 (09:19→17:01)
[2018-01-28] MEDS: PANTOPRAZOLE 40 MG TABLET PO SCH ×2 (09:20→17:01)
[2018-01-28] MEDS: NYSTATIN 100,000 UNIT/ML SUSP 500,000 UNIT/5 ML CUP PO SCH ×4 (09:20→21:31)
[2018-01-28] MEDS: ASPIRIN 81 MG PO SCH ×2 (09:21→17:01)
[2018-01-28] MEDS: POTASSIUM CHLORIDE ER 10 MEQ TAB.ER.PRT PO SCH (09:21)
[2018-01-28] MEDS: HEPARIN SODIUM,PORCINE 5,000 UNIT/ML 1 ML VIAL SQ SCH ×2 (09:21→21:31)
[2018-01-28] MEDS: ALLOPURINOL 300 MG TAB PO SCH (09:21)
[2018-01-28] MEDS: GABAPENTIN 300 MG CAP PO SCH ×3 (09:21→21:31)
[2018-01-28] MEDS: VANCOMYCIN 1,500 MG in SODIUM CHLORIDE 0.9% 250 ML IVPB SCH ×2 (09:24→23:57)
[2018-01-28] MEDS: CEFEPIME 2 GM in SODIUM CHLORIDE 0.9% 50 ML IVPB SCH ×2 (09:26→21:32)
--- NOTE | 2018-01-28 11:07 | ECHOF ---
Referral Reason:evaluate EF MEASUREMENTS -------- HEIGHT: 170.2 cm WEIGHT: 79.4 kg BP: 109/57 RVIDd: 2.9 cm (< 3.3) IVSd: 1.3 cm (0.6 - 1.1) LVIDd: 4.2 cm (3.9 - 5.3) LVPWd: 1.3 cm (0.6 - 1.1) IVSs: 1.7 cm LVIDs: 2.7 cm LVPWs: 1.8 cm LA Diam: 3.7 cm (2.7 - 3.8) LAESV Index (A-L): 31.73 ml/m Ao Diam: 3.9 cm (2.0 - 3.7) AV Cusp: 1.4 cm (1.5 - 2.6) MV EXCURSION: 17.007 mm (> 18.000) MV EF SLOPE: 17 mm/s (70 - 150) EPSS: 0.6 cm MV E Pietro: 0.78 m/s MV DecT: 205 ms MV A Pietro: 1.00 m/s MV E/A Ratio: 0.78 AV maxP.08 mmHg AV meanP.11 mmHg AR PHT: 369 ms RAP: 5.00 mmHg RVSP: 19.96 mmHg FINDINGS -------- Sinus rhythm. This was a technically adequate study. The left ventricular size is normal. There is mild concentric left ventricular hypertrophy. Overa ll left ventricular systolic function is normal with, an EF between 55 - 60 %. The right ventricle is normal in size. LA is midly dilated 29-33ml/m2. The right atrium is normal in size. There is mild aortic valve sclerosis. There is mild aortic regurgitation. There is mild aortic st enosis present. Peak/mean gradient across the Aortic Valve is 20.08mmHg / 10.11mmHg. The mitral valve leaflets are mildly thickened. Mild mitral annular calcification present. Mild m itral regurgitation is present. Mild tricuspid regurgitation present. Right ventricular systolic pressure is normal at < 35 mmHg. There is no pulmonic regurgitation present. The aortic root is dilated measuring 3.9cm. Normal inferior vena cava with normal inspiratory collapse consistent with estimated right atrial pre ssure of 5 mmHg. There is no pericardial effusion. CONCLUSIONS -------- 1. Sinus rhythm. 2. This was a technically adequate study. 3. The left ventricular size is normal. 4. There is mild concentric left ventricular hypertrophy. 5. Overall left ventricular systolic function is normal with, an EF between 55 - 60 %. 6. The right ventricle is normal in size. 7. LA is midly dilated 29-33ml/m2. 8. The right atrium is normal in size. 9. There is mild aortic valve sclerosis. 10. There is mild aortic regurgitation. 11. There is mild aortic stenosis present. 12. Peak/mean gradient across the Aortic Valve is 20.08mmHg / 10.11mmHg. 13. The mitral valve leaflets are mildly thickened. 14. Mild mitral annular calcification present. 15. Mild mitral regurgitation is present. 16. Mild tricuspid regurgitation present. 17. Right ventricular systolic pressure is normal at < 35 mmHg. 18. There is no pulmonic regurgitation present. 19. The aortic root is dilated measuring 3.9cm. 20. Normal inferior vena cava with normal inspiratory collapse consistent with estimated right atrial pressure of 5 mmHg. 21. There is no pericardial effusion. NET DEVELOPER SOFTWARE ENGINEER C: Sendy Mcmahon RDCS
--- NOTE | 2018-01-28 11:12 | PN ---
PROGRESS NOTE This patient's condition remains unchanged. Patient had some episode of confusion and agitation during the night. At present, patient is comfortable. Respiratory rate is 2 to 22. Respirations are not labored. Blood pressure is 104/60 mmHg. Patient's temperature is normal. Patient's urine output remains borderline. First and second heart sounds are normal. Lungs examination reveals bilateral scattered rhonchi. Chest x-ray does not show any evidence of significant left-sided congestive heart failure. Patient's proBNP level is 172 today. ASSESSMENT AND PLAN: Patient's primary problem appears to be pneumonia. Continue the treatment with antibiotics. Patient may benefit from fluids at 75 to 100 mL/hour. At present, there is no evidence of any significant fluid overload. MMODL / IJN: [id number] /
[2018-01-28 11:51] LABS: Glucose,Whole Blood 137 mg/dL (75-99)
--- NOTE | 2018-01-28 15:03 | PN ---
PROGRESS NOTE DATE OF SERVICE: 01/28/2018 REASON FOR FOLLOWUP: Pneumonia. INTERVAL HISTORY: The patient is afebrile this morning. He is breathing comfortably, no choking or coughing on the food per the RN. No nausea, vomiting and no diarrhea. He did have a cough, but not bringing a significant amount of sputum. No chest pain and no diarrhea. PHYSICAL EXAMINATION: Blood pressure 96/51 with a pulse of 82, temperature 97.9, he is 98% on BiPAP. General description is an elderly male, lying in bed in no distress. RESPIRATORY SYSTEM: Unlabored breathing, clear to auscultation anteriorly. HEART: S1, S2. Regular rate and rhythm. ABDOMEN: Soft, no tenderness. EXTREMITIES: No edema of the feet. LABS: Hemoglobin is 11.6, white count of 6.0 with a BUN of 17, creatinine 1.0. DIAGNOSTIC IMPRESSION AND PLAN: Patient with hospital pneumonia left lower lobe with concern for possible resistant gram-negative or gram-positive pathogen. He is currently covered with cefepime and vanco because of his PENICILLIN ALLERGY. We will try to obtain a sputum. Continue on his antibiotics. Continue supportive care. MMODL / IJN: [id number] /
--- NOTE | 2018-01-28 15:32 | P.PN ---
Subjective Progress Note Date: 01/28/18 Principal diagnosis: Difficulty in breathing, septic shock Patient seen today in follow-up, his is at the bedside, patient is on BiPAP. He does arouse to voice and touch, he is currently denying any current nausea, hunger or pain. Objective - Vital Signs Vital signs: Vital Signs Temp 97.9 F 01/28/18 12:00 Pulse 87 01/28/18 15:00 Resp 24 01/28/18 15:00 BP 110/61 01/28/18 15:00 Pulse Ox 98 01/28/18 15:00 Intake & Output 01/27/18 01/28/18 01/28/18 18:59 06:59 18:59 Intake Total 4158 124 8469 Output Total 525 1645 570 Balance 995 -1025 515 Weight 87 kg Intake: IV 856 740 0599 ACETAMINOPHEN IV (For NPO 100 ) 1,000 mg In Empty Bag 1 bag @ 400 mls/hr IVPB Q6HR PRN Rx#:[id number] Cefepime 2 gm In Sodium 120 100 100 Chloride 0.9% 50 ml @ 100 mls/hr IVPB Q12HR [facility] Rx #:[id number] Magnesium Sulfate-D5w Pmx 200 0 100 1 gm In Dextrose/Water 1 100ml.bag @ 100 mls/hr IVPB Q1H [facility] Rx#: [id number] Magnesium Sulfate-D5w Pmx 200 1 gm In Dextrose/Water 1 100ml.bag @ 100 mls/hr IVPB Q1H [facility] Rx#: [id number] Sodium Chloride 0.9% 1, 110 180 60 000 ml @ 20 mls/hr IV . Q24H [facility] Rx#:[id number] Sodium Chloride 0.9% 1, 375 000 ml @ 75 mls/hr IV . [id number] [facility] Rx#:[id number] Vancomycin 1,500 mg In 250 0 250 Sodium Chloride 0.9% 250 ml @ 125 mls/hr IVPB Q16H [facility] Rx#:[id number] Oral 840 240 Output: Urine 525 1645 570 Other: Voiding Method Urinal Indwelling Catheter Indwelling Catheter # Voids 0 # Bowel Movements 1 - Constitutional General appearance: Present: cooperative, no acute distress, obese - EENT Eyes: Present: anicteric sclerae - Respiratory Respiratory: bilateral: CTA - Cardiovascular Heart sounds: normal: S1, S2 - Peripheral edema foot Peripheral Edema: bilateral: Trace (Much improved, pedal pulses palpable) - Gastrointestinal General gastrointestinal: Present: normal bowel sounds, soft - Integumentary Integumentary: Present: normal - Neurologic Neurologic: Present: CNII-XII intact - Musculoskeletal Musculoskeletal: Present: generalized weakness - Labs CBC & Chem 7: 01/28/18 04:13 01/28/18 15:01 Labs: Abnormal Lab Results - Last 24 Hours (Table) 01/27/18 01/27/18 01/27/18 Range/Units 04:12 17:18 20:26 RBC (4.30-5.90) m/uL Hgb (13.0-17.5) gm/dL Hct (39.0-53.0) % RDW (11.5-15.5) % Plt Count (150-450) k/uL Lymphocytes # (1.0-4.8) k/uL Potassium (3.5-5.1) mmol/L POC Glucose (mg/dL) 125 H (75-99) mg/dL Hemoglobin A1c 7.5 H (4.0-6.0) % Troponin I (0.000-0.034) ng/mL Procalcitonin 0.35 H (0.02-0.09) ng/mL 01/28/18 01/28/18 01/28/18 Range/Units 01:59 04:13 04:13 RBC 4.12 L (4.30-5.90) m/uL Hgb 11.6 L (13.0-17.5) gm/dL Hct 35.2 L (39.0-53.0) % RDW 20.8 H (11.5-15.5) % Plt Count 134 L (150-450) k/uL Lymphocytes # 0.3 L (1.0-4.8) k/uL Potassium 3.2 L (3.5-5.1) mmol/L POC Glucose (mg/dL) (75-99) mg/dL Hemoglobin A1c (4.0-6.0) % Troponin I 0.035 H* (0.000-0.034) ng/mL Procalcitonin (0.02-0.09) ng/mL 01/28/18 01/28/18 01/28/18 Range/Units 07:19 07:30 11:50 RBC (4.30-5.90) m/uL Hgb (13.0-17.5) gm/dL Hct (39.0-53.0) % RDW (11.5-15.5) % Plt Count (150-450) k/uL Lymphocytes # (1.0-4.8) k/uL Potassium (3.5-5.1) mmol/L POC Glucose (mg/dL) 109 H 137 H (75-99) mg/dL Hemoglobin A1c (4.0-6.0) % Troponin I 0.042 H* (0.000-0.034) ng/mL Procalcitonin (0.02-0.09) ng/mL Microbiology - Last 24 Hours (Table) 01/26/18 14:20 Urine Culture - Final Urine,Clean Catch 01/26/18 13:26 Blood Culture - Preliminary Blood No Growth after 24 hours - Imaging and Cardiology Chest x-ray: report reviewed Assessment and Plan (1) Adenocarcinoma of esophagus, stage 3 Narrative/Plan: Pt is s/p concurrent chemo/XRT with recent EGD on 01/13, biopsy neg for recurrent malignancy. Patient will continue on follow-up for malignancy as scheduled. CBC reviewed, stable, and no intervention needed. Current Visit: No Status: Chronic Priority: Medium Code(s): C15.9 - MALIGNANT NEOPLASM OF ESOPHAGUS, UNSPECIFIED SNOMED Code(s): 701351179 Plan: After reviewing case with radiation oncologist did also discuss the case with Pulmonary. The clinical picture is more likely a mix of insults including infection, congestive heart failure and pneumonitis induced by radiation. Patient is being treated for all possibilities. Patient is improving with current care.
[2018-01-28] MEDS: ACETAMINOPHEN TAB 500 MG TAB PO PRN (17:00)
[2018-01-28 17:41] LABS: Glucose,Whole Blood 212 mg/dL (75-99)
--- NOTE | 2018-01-28 18:08 | PN ---
PROGRESS NOTE DATE OF SERVICE: 01/28/2018 INTERVAL HISTORY: This 82-year-old gentleman who was admitted after bibasilar pneumonia had worsening the night before. The patient has been closely monitored in ICU. The patient on broad- spectrum IV antibiotics. Infectious Disease is following the patient closely. The most recent chest x-ray was reviewed by me, showed some improvement in aeration; however, the patient is still short of breath. The patient is being closely monitored. Patient on broad-spectrum IV antibiotics at this time. The patient is also on BiPAP as well. The patient is on cefepime and vancomycin. PAST MEDICAL HISTORY: Reviewed. REVIEW OF SYSTEM: CARDIOVASCULAR: As mentioned earlier. RESPIRATORY: As mentioned earlier. GI: As mentioned earlier. : No dysuria. NERVOUS: No numbness or weakness. CURRENT MEDICATIONS: Reviewed, include: 1. Tylenol 500 every 6 hours p.r.n. 2. [place] 5 mg every 6 hours and. 3. DuoNeb q.i.d. and p.r.n. 4. Zyloprim 300 mg a day. 5. Xanax 0.5 t.i.d. 6. Aspirin 81 mg daily. 7. Cefepime 2 g IV b.i.d. 8. Neurontin 1200 mg q.h.s. 9. Heparin subcu b.i.d. 10.NovoLog scale. 11.Levemir 40 units subcu q.h.s. 12.Glucophage 1000 mg p.o. b.i.d. 13.Magnesium replacement protocol. 14.Protonix 40 mg daily. 15.K-Dur 10 mg p.o. daily. 16.Pravachol. 17.Vancomycin. PHYSICAL EXAM: Patient is alert, oriented x3. Pulse 87, blood pressure 190/64, respirations 24, temperature normal, pulse ox 98% on 4L. HEENT: Conjunctivae normal. Oral mucosa moist. NECK: No jugular venous distention. No carotid bruits. No lymph node enlargement. CARDIOVASCULAR: S1, S2. RESPIRATORY: Breath sounds diminished in the bases. A few scattered rhonchi and crackles. ABDOMEN: Soft, nontender. No mass palpable. LEGS: No edema. No cyanosis. NERVOUS SYSTEM: Diffusely weak. LABS: WBC 6, hemoglobin 7.6 and troponin 0.042. ASSESSMENT: 1. Bilateral pneumonia with possibly gram-negative severe sepsis and septic shock. 2. Hypotension secondary to sepsis. 3. Possible aspiration pneumonia. 4. History of esophageal carcinoma, status post chemotherapy, radiation. 5. Diabetes mellitus type 2. 6. History of gastroesophageal reflux disease. 7. Hypertension. 8. Hyperlipidemia. 9. History of degenerative joint disease. 10.Left carotid stenosis. 11.History of gout. 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 13.History of nephrolithiasis. 14.History of gastric cancer. 15.History of appendectomy. 16.Increased creatinine with chronic kidney disease, stage 3. 17.Increased plasma lactic acid. RECOMMENDATIONS AND DISCUSSION: Recommend to continue current medical management and symptomatic treatment. Obtain potassium. Continue the antibiotics. Otherwise at this time, I would also recommend to follow closely with multiple consultants and a video fluoroscopic swallow did not show any abnormality. Will continue to monitor. Guarded prognosis because of multiple complex medical issues. Continue the bronchodilators. See orders for further details. The patient is in the ICU. Further recommendations to follow. MMODL / IJN: [id number] /
[2018-01-28] MEDS: LORazepam 2 MG/ML INJ IV PRN (21:11)
[2018-01-28 21:22] LABS: Glucose,Whole Blood 214 mg/dL (75-99)
[2018-01-28] MEDS: PRAVASTATIN SODIUM 80 MG TAB PO SCH (21:31)
[2018-01-28 22:49] LABS: ABG Base Excess 2.9 mmol/L; ABG HCO3 26 mmol/L (21-25); ABG Oxygen Saturation 93.6 % (94-97); ABG PCO2 32 mmHg (35-45); ABG PH 7.52 (7.35-7.45); ABG PO2 64 mmHg (83-108); ABG TCO2 27 mmol/L (19-24)
[2018-01-28 23:32] LABS: Glucose,Whole Blood 121 mg/dL (75-99)
[2018-01-28] MEDS ORDERED: FUROSEMIDE 10 MG/ML 4 ML VIAL IV STA (23:42)
[2018-01-29 05:24] LABS: Anion Gap 7 mmol/L; Blood Urea Nitrogen 15 mg/dL (9-20); Calcium 7.9 mg/dL (8.4-10.2); Carbon Dioxide 26 mmol/L (22-30); Chloride 106 mmol/L (98-107); Phosphorus 2.7 mg/dL (2.5-4.5); Potassium 3.5 mmol/L (3.5-5.1); Sodium 139 mmol/L (137-145)
[2018-01-29 05:36] LABS: Glucose 37 mg/dL (74-99)
[2018-01-29 05:37] LABS: Anisocytosis Moderate; Basophils % (A) 0 %; Eosinophils # (A) 0.1 k/uL (0-0.7); Eosinophils % (A) 2 %; HCT 30.1 % (39.0-53.0); Lymphocytes # (A) 0.2 k/uL (1.0-4.8); Lymphocytes % (A) 4 %; MCH 28.4 pg (25.0-35.0); MCV 86.1 fL (80.0-100.0); Mean Platelet Volume 7.2; Microcytosis Slight; Monocytes # (A) 0.2 k/uL (0-1.0); Monocytes % (A) 4 %; Neutrophils # (A) 4.7 k/uL (1.3-7.7); Neutrophils % (A) 89 %; Platelet Count 115 k/uL (150-450); RDW 20.9 % (11.5-15.5); WBC 5.3 k/uL (3.8-10.6)
[2018-01-29] MEDS ORDERED: DEXTROSE 50%-WATER 50 ML SYRINGE IVP ONE (05:37)
[2018-01-29 05:42] LABS: HGB 9.9 gm/dL (13.0-17.5)
[2018-01-29 05:44] LABS: Glucose,Whole Blood 82 mg/dL (75-99)
[2018-01-29 05:44] LABS: Glucose,Whole Blood 62 mg/dL (75-99)
[2018-01-29 06:02] LABS: Glucose,Whole Blood 131 mg/dL (75-99)
[2018-01-29] MEDS: POTASSIUM CHLORIDE 10 MEQ in WATER FOR INJECTION 1 100ML.BAG IVPB SCH ×4 (06:15→09:33)
--- NOTE | 2018-01-29 07:16 | XR ---
EXAMINATION TYPE: XR chest 1V DATE OF EXAM: 01/29/2018 COMPARISON: 01/28/2019 HISTORY: Pneumonia TECHNIQUE: Single frontal view of the chest is obtained. FINDINGS: There is slight worsening in the interval of the diffuse interstitial prominence with now slightly more confluence at the right lung base and persistent left basilar opacity. Cardiomediastina l silhouette remains enlarged. Probable trace pleural effusions blunt the costophrenic angles. Osseou s structures are grossly intact. No sizable pneumothorax. IMPRESSION: Interval slight worsening of the diffuse interstitial prominence likely related to pulmo nary edema with increasing confluence in the right lung base and persistent left basilar opacity. Aty pical pneumonitis is a secondary consideration.
[2018-01-29 07:22] LABS: Glucose,Whole Blood 98 mg/dL (75-99)
[2018-01-29] MEDS: metFORMIN 500 MG TAB PO SCH ×3 (07:51→17:24)
[2018-01-29] MEDS: INSULIN DETEMIR 100 UNIT/ML 10 ML VIAL SQ SCH ×2 (07:51→08:36)
[2018-01-29] MEDS: INSULIN ASPART 100 UNIT/ML 1 ML 10 ML VIAL SQ SCH ×8 (07:51→20:04)
[2018-01-29] MEDS: NYSTATIN 100,000 UNIT/ML SUSP 500,000 UNIT/5 ML CUP PO SCH ×4 (07:51→20:03)
[2018-01-29] MEDS: GABAPENTIN 300 MG CAP PO SCH ×3 (07:52→20:02)
[2018-01-29] MEDS: PANTOPRAZOLE 40 MG TABLET PO SCH ×2 (07:52→17:24)
[2018-01-29] MEDS: HEPARIN SODIUM,PORCINE 5,000 UNIT/ML 1 ML VIAL SQ SCH ×2 (07:52→20:03)
[2018-01-29] MEDS: ALLOPURINOL 300 MG TAB PO SCH (07:52)
[2018-01-29] MEDS: POTASSIUM CHLORIDE ER 10 MEQ TAB.ER.PRT PO SCH (07:52)
[2018-01-29] MEDS: ASPIRIN 81 MG PO SCH (07:53)
[2018-01-29] MEDS: IPRATROPIUM-ALBUTEROL 3 ML NEB INHALATION SCH ×4 (07:59→19:41)
[2018-01-29] MEDS ORDERED: Potassium Replacement Protocol 1 EACH MISC MISCELLANE PRN (08:16)
[2018-01-29] MEDS: POTASSIUM CHLORIDE ER 20 MEQ TAB.ER PO SCH ×2 (08:37→10:56)
[2018-01-29] MEDS: MENTHOL (NICE) LOZENGE MUCOUS MEM PRN ×2 (08:38→10:55)
--- NOTE | 2018-01-29 08:54 | P.PN ---
Subjective Progress Note Date: 01/29/18 Principal diagnosis: Sepsis/pneumonitis Progress note dated 01/28/2018 This is an 82-year-old male initially seen in consultation for shortness of breath. The shortness of breath is likely related to fluid overload/heart failure or could possibly related to pneumonitis. In addition, there were some concerns about radiation pneumonitis/fibrosis given his previous radiation for esophageal cancer. The patient has acute hypoxemic respiratory failure history of esophageal cancer status post chemoradiation, previous history of pneumonia, hypertension, diabetes, gout, Hernandez's esophagus, GERD, hyperlipidemia and lactic acidemia. Currently, the patient seemed to be slightly improved. Is currently on BiPAP with an IPAP of 12 and EPAP of 5. FiO2 is 50%. Saline IV is at KVO. Saturations are 100%. We gave him a small amount of Ativan IV. Seems of settle him down. He is sleeping and seems to be comfortable. Much less fidgety. Chest x-ray is certainly improved. Progress note dated 01/29/2018 82-year-old male, initially seen for shortness of breath. The shortness of breath was thought to be related to either fluid overload/heart failure or pneumonia/pneumonitis. It may be the latter more than the former given the fact that his N-terminal proBNP is relatively low. In addition, there were some concerns about radiation pneumonitis given his previous radiation for esophageal cancer. The patient has acute hypoxemic respiratory failure, esophageal cancer, chemoradiation for esophageal cancer, pneumonia, hypertension , diabetes, gout, Hernandez's esophagus, GERD, and hyperlipidemia. The patient's currently on O2 at 5 L by nasal cannula. In addition, he does spend time on BiPAP with an IPAP of 12, EPAP of 5 and 50%. His IV fluids are saline at 10 mL an hour. Chest x-ray shows diffuse bilateral infiltrates which could be consistent with fluid overload and/or pneumonia. Microbiology is completely negative. White count 5.3 hemoglobin 9.9 hematocrit 30.1 platelet count 115, 000. Basic metabolic profile is normal. Chest x-ray is difficult to interpret and could be consistent with either interstitial edema and/or interstitial pneumonia. Objective - Vital Signs Vital signs: Vital Signs Temp 98.5 F 01/29/18 04:00 Pulse 101 H 01/29/18 08:12 Resp 26 H 01/29/18 07:00 BP 121/68 01/29/18 07:00 Pulse Ox 98 01/29/18 07:00 Intake & Output 01/28/18 01/29/18 01/29/18 18:59 06:59 18:59 Intake Total 1385 805 120 Output Total 760 870 125 Balance 625 -65 -5 Weight 86.6 kg Intake: IV 1385 805 120 ACETAMINOPHEN IV (For NPO 100 ) 1,000 mg In Empty Bag 1 bag @ 400 mls/hr IVPB Q6HR PRN Rx#:[id number] Cefepime 2 gm In Sodium 100 Chloride 0.9% 50 ml @ 100 mls/hr IVPB Q12HR [facility] Rx #:[id number] Magnesium Sulfate-D5w Pmx 100 1 gm In Dextrose/Water 1 100ml.bag @ 100 mls/hr IVPB Q1H [facility] Rx#: [id number] Magnesium Sulfate-D5w Pmx 200 1 gm In Dextrose/Water 1 100ml.bag @ 100 mls/hr IVPB Q1H [facility] Rx#: [id number] Potassium Chloride 10 meq 100 In Water For Injection 1 100ml.bag @ 100 mls/hr IVPB Q1HR [facility] Rx#: [id number] Sodium Chloride 0.9% 1, 60 000 ml @ 20 mls/hr IV . Q24H [facility] Rx#:[id number] Sodium Chloride 0.9% 1, 675 455 20 000 ml @ 20 mls/hr IV . Q24H [facility] Rx#:[id number] Vancomycin 1,500 mg In 250 250 Sodium Chloride 0.9% 250 ml @ 125 mls/hr IVPB Q16H [facility] Rx#:[id number] Output: Urine 760 870 125 Other: Voiding Method Indwelling Catheter Indwelling Catheter # Bowel Movements 1 1 - Exam No acute distress, sleeping, Nasal O2 at 5 L/m is noted. Currently off BiPAP. Seems mildly short of breath. HEENT examination is grossly unremarkable. Mucous membranes are moist. No oral lesions. Neck supple. Full range of motion. No adenopathy thyromegaly or neck vein distention. Cardiovascular examination reveals regular rhythm rate. S1-S2 normal. No S3 or S4. No discernible murmur noted. Heart sounds are distant. Lungs reveal bilateral crackles. A few scattered rhonchi noted. Breath sounds are equal bilaterally. No wheezes are noted. Breath sounds are about what they were yesterday. Abdomen soft bowel sounds are heard. No masses or tenderness. Extremities are intact. No cyanosis or clubbing noted. Very minimal edema appreciated Skin is without rash or lesion. Neurologic examination is brief but nonfocal. - Labs CBC & Chem 7: 01/29/18 04:18 01/29/18 04:18 Labs: Abnormal Lab Results - Last 24 Hours (Table) 01/27/18 01/28/18 01/28/18 Range/Units 20:26 11:50 17:39 RBC (4.30-5.90) m/uL Hgb (13.0-17.5) gm/dL Hct (39.0-53.0) % RDW (11.5-15.5) % Plt Count (150-450) k/uL Lymphocytes # (1.0-4.8) k/uL ABG pH (7.35-7.45) ABG pCO2 (35-45) mmHg ABG pO2 (83-108) mmHg ABG HCO3 (21-25) mmol/L ABG Total CO2 (19-24) mmol/L ABG O2 Saturation (94-97) % Glucose (74-99) mg/dL POC Glucose (mg/dL) 137 H 212 H (75-99) mg/dL Calcium (8.4-10.2) mg/dL Procalcitonin 0.35 H (0.02-0.09) ng/mL 01/28/18 01/28/18 01/28/18 Range/Units 21:20 22:43 23:30 RBC (4.30-5.90) m/uL Hgb (13.0-17.5) gm/dL Hct (39.0-53.0) % RDW (11.5-15.5) % Plt Count (150-450) k/uL Lymphocytes # (1.0-4.8) k/uL ABG pH 7.52 H (7.35-7.45) ABG pCO2 32 L (35-45) mmHg ABG pO2 64 L (83-108) mmHg ABG HCO3 26 H (21-25) mmol/L ABG Total CO2 27 H (19-24) mmol/L ABG O2 Saturation 93.6 L (94-97) % Glucose (74-99) mg/dL POC Glucose (mg/dL) 214 H 121 H (75-99) mg/dL Calcium (8.4-10.2) mg/dL Procalcitonin (0.02-0.09) ng/mL 01/29/18 01/29/18 01/29/18 Range/Units 04:18 04:18 05:42 RBC 3.50 L (4.30-5.90) m/uL Hgb 9.9 L D (13.0-17.5) gm/dL Hct 30.1 L (39.0-53.0) % RDW 20.9 H (11.5-15.5) % Plt Count 115 L (150-450) k/uL Lymphocytes # 0.2 L (1.0-4.8) k/uL ABG pH (7.35-7.45) ABG pCO2 (35-45) mmHg ABG pO2 (83-108) mmHg ABG HCO3 (21-25) mmol/L ABG Total CO2 (19-24) mmol/L ABG O2 Saturation (94-97) % Glucose 37 L* (74-99) mg/dL POC Glucose (mg/dL) 62 L (75-99) mg/dL Calcium 7.9 L (8.4-10.2) mg/dL Procalcitonin (0.02-0.09) ng/mL 01/29/18 Range/Units 06:01 RBC (4.30-5.90) m/uL Hgb (13.0-17.5) gm/dL Hct (39.0-53.0) % RDW (11.5-15.5) % Plt Count (150-450) k/uL Lymphocytes # (1.0-4.8) k/uL ABG pH (7.35-7.45) ABG pCO2 (35-45) mmHg ABG pO2 (83-108) mmHg ABG HCO3 (21-25) mmol/L ABG Total CO2 (19-24) mmol/L ABG O2 Saturation (94-97) % Glucose (74-99) mg/dL POC Glucose (mg/dL) 131 H (75-99) mg/dL Calcium (8.4-10.2) mg/dL Procalcitonin (0.02-0.09) ng/mL Microbiology - Last 24 Hours (Table) 01/26/18 13:26 Blood Culture - Preliminary Blood No Growth after 48 hours Assessment and Plan Assessment: Assessment Shortness of breath, which may be multifactorial in part related to fluid overload/heart failure as well as possible pneumonitis given his septic picture on admission Acute hypoxemic respiratory failure secondary to above. History of esophageal cancer, status post chemo and radiation therapy Rule out radiation pneumonitis/fibrosis Previous history of pneumonia History of hypertension Diabetes mellitus by history History of gout History of Hernandez's esophagus History of GERD Hyperlipidemia Lactic acidemia Plan: Plan dated 01/27/2018 Currently, the patient's on O2 at 4 L by nasal cannula. Saturations are maintained. The patient appears not to need BiPAP at this time. The patient seemed to respond very nicely to BiPAP therapy and Lasix 40 mg IV push. The patient's IV is saline at KVO. The patient's chest x-ray does show a pattern of fluid overload/heart failure. Labs medications and x-rays are all reviewed. White count 8.2, hemoglobin 12.1 hematocrit 37.1 and platelet count 146,000. Sodium potassium chloride CO2 anion gap BUN and creatinine all normal. Most recent lactic acid level V.3 and magnesium 1.2. Urine looks clean. N-terminal pro BNP was only 2:15. The patient's currently on antibiotics in the form of Zithromax and Rocephin. I think that's appropriate for the time being. Is also on updrafts. We'll continue the Lasix at this time. Additional recommendations and suggestions are forthcoming. KVO the IV. Prognosis is guarded. Critical care time 32 minutes Plan dated 01/28/2018 The patient's white blood count is 6 hemoglobin 11.6 hematocrit 35.2 and platelet count is 134,000. Electrolytes were completely normal save for borderline low potassium at 3.2. The chest x-ray certainly shows improvement. Thus far, all microbiology is negative. Medications are reviewed in detail. The patient seems to be a bit more stable. I do believe that the lorazepam IV has really helped. We'll continue on BiPAP for now. Prognosis is guarded. Hopefully he'll continue to show improvement. He remains on good antibiotics in the form of cefepime and vancomycin as per ID recommendations. Additional recommendations and suggestions are forthcoming. Again prognosis is guarded. Critical care time 33 minutes Plan dated 01/29/2018 Currently, the patient's on O2 via nasal cannula at 5 L/m. We turned on his IV last night because of increasing respiratory difficulty and we did give him some Lasix which did seem to improve him. Microbiology is completely negative. The patient's on good antibiotics in the form of cefepime and vancomycin. He remains on updrafts. Labs x-rays a medications are all reviewed. I am going to add some steroids to his regimen. We'll see whether or not this improves the situation. Additional recommendations and suggestions are forthcoming. Medications are reviewed and unnecessary medications are discontinued. Prognosis is guarded. Critical care time 32 minutes Time with Patient: Greater than 30
[2018-01-29] MEDS: CEFEPIME 2 GM in SODIUM CHLORIDE 0.9% 50 ML IVPB SCH ×2 (09:34→20:03)
[2018-01-29 11:38] LABS: INR 1.1 (<1.2); Prothrombin Time 10.6 sec (9.0-12.0)
[2018-01-29 11:47] LABS: Glucose,Whole Blood 242 mg/dL (75-99)
[2018-01-29] MEDS: LORazepam 2 MG/ML INJ IV PRN (12:09)
[2018-01-29] MEDS: methylPREDNISolone SOD SUCCI 40 MG/ML 1 ML VIAL IV SCH ×2 (12:09→17:24)
--- NOTE | 2018-01-29 12:10 | PN ---
PROGRESS NOTE This patient is admitted with a pneumonia. Patient is doing well and comfortable, no respiratory distress is noted. Patient is afebrile, the heart rate is 100 per minute, blood pressure is 110/64 mmHg. Respiratory rate varies between 24-30. Oxygen saturation is 92%. First and second heart sounds are normal. Lungs are clinically clear to auscultation and percussion. Patient's urine output is good. We would recommend to continue the current medications and we will now follow up p.[email or web address] MMBONITA / IJN: [id number] /
--- NOTE | 2018-01-29 13:19 | PN ---
PROGRESS NOTE DATE OF SERVICE: 01/29/2018 REASON FOR FOLLOWUP: Pneumonia. INTERVAL HISTORY: The patient did spike a fever last evening of 101.3 to 101.2. Afebrile this morning. He is breathing comfortably. Speech pathology has seen the patient and has modified his diet. He did have a cough, but not bringing up any sputum. No chest pain. No nausea, no vomiting. No abdominal pain and no diarrhea. PHYSICAL EXAMINATION: On examination, blood pressure is 111/64 with a pulse of 100, temperature of 98. He is 92% on 5 L nasal cannula. General description is an elderly male lying in bed in no distress. RESPIRATORY SYSTEM: Unlabored breathing, clear to auscultation anteriorly. No wheeze or crackle. HEART: S1, S2. Regular rate and rhythm. ABDOMEN: Soft, no tenderness. EXTREMITIES: No edema of the feet. LABS: Hemoglobin is 9.9, white count 5.3 with a BUN of 15, creatinine 0.90. Blood culture has been negative so far. DIAGNOSTIC IMPRESSION AND PLAN: Patient with pneumonia with question of possible gram negative or gram positive and concern for possible aspiration etiology. Diet has been modified. We will try to obtain a sputum. on antibiotics. Currently on cefepime and vancomycin will be continued watching his kidney function very closely. Continue with supportive care. MMODL / IJN: [id number] /
[2018-01-29] MEDS: VANCOMYCIN 1,500 MG in SODIUM CHLORIDE 0.9% 250 ML IVPB SCH (15:42)
[2018-01-29 17:33] LABS: Glucose,Whole Blood 276 mg/dL (75-99)
--- NOTE | 2018-01-29 18:13 | PN ---
PROGRESS NOTE DATE OF SERVICE: 01/29/2018 This 82-year-old gentleman who was admitted after bilateral pneumonia also had hypertension . Patient suspected to have aspiration pneumonia. The patient has esophageal carcinoma history. The patient apparently had a recent scope by Dr. Smith on 02/02/2018 showed with mass in the distal esophageal and mild erythema at the GE junction consistent with esophagitis was noted. No chest pain. No palpitations. No fever. PAST MEDICAL HISTORY: Reviewed. REVIEW OF SYSTEMS: Cardiovascular: No angina or palpitations. Respirations: As mentioned earlier. GI: As mentioned earlier. : No dysuria. Central nervous system: No numbness or weakness. CURRENT MEDICATIONS: Reviewed and include: 1. Tylenol 500 mg q.8h p.r.n. 2. DuoNeb q.i.d. and p.r.n. 3. Zyloprim 200 mg daily. 4. Aspirin 81 mg. 5. Cefepime 2 g IV b.i.d. 6. Neurontin 1200 mg q.h.s. 7. Heparin 5000 subcu b.i.d. 8. NovoLog scale. 9. Levemir 40 units subcu breakfast. 10 units subcu q.h.s. 10.Ativan p.r.n. 11.Glucophage. 12.Solu-Medrol 40 IV q.6h. 13.Replacement protocols. 14.Narcan. 15.Protonix. 16.K-Dur 10 mEq. 17.Pravachol. 18.Vancomycin. PHYSICAL EXAM: Patient is alert, oriented x3. Pulse is 107. Blood pressure is 109/60. Respiration . Temperature 99.6, pulse ox 93% on 5 L, 100% on 50% BiPAP. HEENT: Conjunctivae normal. Oral mucosa moist. Neck is no jugular venous distention. No carotid bruit. No lymph node enlargement. Cardiovascular: S1, S2 muffled. Respiratory: Breath sounds diminished in the bases. Bilateral scattered rhonchi and crackles. ABDOMEN: Soft, nontender. No mass palpable. Legs no edema. No swelling. Central nervous system: Diffusely weak. LAB STUDIES: At this time shows WBC 5.2, hemoglobin 9.9. Accu-Cheks noted. Glucose was ntd. ASSESSMENT: 1. Bilateral pneumonia with possibly gram-negative with severe sepsis and septic shock. 2. Hypotension secondary to sepsis. 3. Possible aspiration pneumonia. 4. History of esophageal carcinoma, status post chemotherapy, radiation. Most recent EGD 01/13/2018 showing no mass. 5. Diabetes mellitus type 2. 6. Gastroesophageal reflux disease. 7. Hypertension. 8. Hyperlipidemia. 9. History of degenerative joint disease. 10.History of left carotid stenosis. 11.History of gout. 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 13.History of nephrolithiasis. 14.History of gastric cancer. 15.History of appendectomy. 16.History of increased creatinine with chronic kidney disease stage 3. 17.Increased plasma lactic acid. RECOMMENDATIONS AND DISCUSSION: Recommend to continue current management and continue with monitoring and symptomatic treatment. Continue broad-spectrum IV antibiotics. Continue with BiPAP. Closely follow with Pulmonary. Monitor blood sugars closely. Guarded prognosis because of the multiple complex medical issues and further recommendations to follow. MMODL / IJN: [id number] / KIANNA
--- NOTE | 2018-01-29 19:00 | P.PN ---
Subjective Progress Note Date: 01/29/18 Principal diagnosis: Esophageal Cancer Patient seen and examined today in the ICU, his platlets are trending down, he has not had chemotherapy since early September. He is in mild distress as he is attempting to eat but becoming very SOB and coughing spasms. at bedside. Objective - Vital Signs Vital signs: Vital Signs Temp 97.6 F 01/29/18 16:00 Pulse 99 01/29/18 18:00 Resp 28 H 01/29/18 18:00 BP 106/62 01/29/18 18:00 Pulse Ox 97 01/29/18 18:00 Intake & Output 01/28/18 01/29/18 01/29/18 18:59 06:59 18:59 Intake Total 1385 805 390 Output Total 760 870 645 Balance 625 -65 -255 Weight 86.6 kg 86.6 kg Intake: IV 1385 805 390 ACETAMINOPHEN IV (For NPO 100 ) 1,000 mg In Empty Bag 1 bag @ 400 mls/hr IVPB Q6HR PRN Rx#:[id number] Cefepime 2 gm In Sodium 100 50 Chloride 0.9% 50 ml @ 100 mls/hr IVPB Q12HR [facility] Rx #:[id number] Magnesium Sulfate-D5w Pmx 100 1 gm In Dextrose/Water 1 100ml.bag @ 100 mls/hr IVPB Q1H [facility] Rx#: [id number] Magnesium Sulfate-D5w Pmx 200 1 gm In Dextrose/Water 1 100ml.bag @ 100 mls/hr IVPB Q1H [facility] Rx#: [id number] Potassium Chloride 10 meq 100 In Water For Injection 1 100ml.bag @ 100 mls/hr IVPB Q1HR [facility] Rx#: [id number] Sodium Chloride 0.9% 1, 60 000 ml @ 20 mls/hr IV . Q24H [facility] Rx#:[id number] Sodium Chloride 0.9% 1, 675 455 240 000 ml @ 20 mls/hr IV . Q24H [facility] Rx#:[id number] Vancomycin 1,500 mg In 250 250 Sodium Chloride 0.9% 250 ml @ 125 mls/hr IVPB Q16H [facility] Rx#:[id number] Output: Urine 760 870 645 Other: Voiding Method Indwelling Catheter Indwelling Catheter Indwelling Catheter # Bowel Movements 1 1 - Constitutional General appearance: Present: cooperative, mild distress - EENT Eyes: Present: EOMI, PERRLA, dentition normal ENT: Present: hard of hearing, NA/AT, normal oropharynx - Neck Details: Supple, Trachea MIdline Neck: Present: normal ROM - Respiratory Respiratory: bilateral: rhonchi (diffuse), wheezing (expiratory) - Cardiovascular Rhythm: regular Heart sounds: normal: S1, S2 - Gastrointestinal General gastrointestinal: Present: normal bowel sounds, soft - Integumentary Integumentary: Present: normal - Neurologic Neurologic Comment(s): No focal defects Neurologic: Present: CNII-XII intact - Musculoskeletal Musculoskeletal: Present: generalized weakness, strength equal bilaterally - Psychiatric Psychiatric: Present: A&O x's 3, appropriate affect, intact judgment & insight - Labs CBC & Chem 7: 01/29/18 04:18 01/29/18 04:18 Labs: Abnormal Lab Results - Last 24 Hours (Table) 01/28/18 01/28/18 01/28/18 Range/Units 21:20 22:43 23:30 RBC (4.30-5.90) m/uL Hgb (13.0-17.5) gm/dL Hct (39.0-53.0) % RDW (11.5-15.5) % Plt Count (150-450) k/uL Lymphocytes # (1.0-4.8) k/uL ABG pH 7.52 H (7.35-7.45) ABG pCO2 32 L (35-45) mmHg ABG pO2 64 L (83-108) mmHg ABG HCO3 26 H (21-25) mmol/L ABG Total CO2 27 H (19-24) mmol/L ABG O2 Saturation 93.6 L (94-97) % Glucose (74-99) mg/dL POC Glucose (mg/dL) 214 H 121 H (75-99) mg/dL Calcium (8.4-10.2) mg/dL 01/29/18 01/29/18 01/29/18 Range/Units 04:18 04:18 05:42 RBC 3.50 L (4.30-5.90) m/uL Hgb 9.9 L D (13.0-17.5) gm/dL Hct 30.1 L (39.0-53.0) % RDW 20.9 H (11.5-15.5) % Plt Count 115 L (150-450) k/uL Lymphocytes # 0.2 L (1.0-4.8) k/uL ABG pH (7.35-7.45) ABG pCO2 (35-45) mmHg ABG pO2 (83-108) mmHg ABG HCO3 (21-25) mmol/L ABG Total CO2 (19-24) mmol/L ABG O2 Saturation (94-97) % Glucose 37 L* (74-99) mg/dL POC Glucose (mg/dL) 62 L (75-99) mg/dL Calcium 7.9 L (8.4-10.2) mg/dL 01/29/18 01/29/18 01/29/18 Range/Units 06:01 11:46 17:23 RBC (4.30-5.90) m/uL Hgb (13.0-17.5) gm/dL Hct (39.0-53.0) % RDW (11.5-15.5) % Plt Count (150-450) k/uL Lymphocytes # (1.0-4.8) k/uL ABG pH (7.35-7.45) ABG pCO2 (35-45) mmHg ABG pO2 (83-108) mmHg ABG HCO3 (21-25) mmol/L ABG Total CO2 (19-24) mmol/L ABG O2 Saturation (94-97) % Glucose (74-99) mg/dL POC Glucose (mg/dL) 131 H 242 H 276 H (75-99) mg/dL Calcium (8.4-10.2) mg/dL Microbiology - Last 24 Hours (Table) 01/26/18 13:26 Blood Culture - Preliminary Blood No Growth after 72 hours Assessment and Plan Plan: Assessment and Recommendations: 1. Esophageal Cancer - - Completed radiation and chemotherapy in September 2017. 2. Acute Hypoxic Respiratory Failure - - Multifactorial - Likely - Pulmonary and ICU Care - Component of probable radiation pneumonitis, pneumonia, CHF - Aspiration risk 3. Normocytic Normochromic Anemia - Unclear Etiology - Possible component recent infection, no clear blood loss - Monitor Daily CBC, Transfuse PRBC hgb less than 7 - Admission (01/26/18) Hemoglobin 14, today 9.9 4. Thrombocytopenia - Sepsis versus other - On Admission platelets 165 (01/26/18), Today 115 - Coags are wnl, fibrinogen pending - Can not rule out underlying heparin induced antibodies (less likely) - Await further trend and results of antibodies and fibrinogen. 5. Febrile - - T-Max in 24 hours 101.3 - IV Antibiotics - Infectious Disease Following. - Repeat [place] Cultures in progress
[2018-01-29 19:59] LABS: Glucose,Whole Blood 335 mg/dL (75-99)
[2018-01-29] MEDS: PRAVASTATIN SODIUM 80 MG TAB PO SCH (20:03)
[2018-01-29] MEDS ORDERED: INSULIN DETEMIR 100 UNIT/ML 10 ML VIAL SQ SCH (21:00)
[2018-01-29 22:31] LABS: Glucose,Whole Blood 310 mg/dL (75-99)
[2018-01-30 00:42] LABS: Glucose,Whole Blood 265 mg/dL (75-99)
[2018-01-30] MEDS: SODIUM CHLORIDE 0.9% 1,000 ML IV SCH (00:45)
[2018-01-30] MEDS: methylPREDNISolone SOD SUCCI 40 MG/ML 1 ML VIAL IV SCH ×4 (00:45→18:02)
[2018-01-30 05:56] LABS: Anisocytosis Moderate; HGB 10.4 gm/dL (13.0-17.5); Hypochromasia Slight
[2018-01-30 06:03] LABS: Anion Gap 7 mmol/L; Blood Urea Nitrogen 21 mg/dL (9-20); Carbon Dioxide 21 mmol/L (22-30); Chloride 108 mmol/L (98-107); Glucose 268 mg/dL (74-99); Magnesium 2.2 mg/dL (1.6-2.3); Phosphorus 2.7 mg/dL (2.5-4.5); Potassium 4.9 mmol/L (3.5-5.1); Sodium 136 mmol/L (137-145)
--- NOTE | 2018-01-30 06:04 | XR ---
EXAMINATION TYPE: XR chest 1V DATE OF EXAM: 01/30/2018 HISTORY: pneumonia. REFERENCE: Previous study dated 01/29/2018. FINDINGS: The heart is enlarged. There is vascular congestion and subtle interstitial change. This ma y have improved slightly. I suspect bilateral effusions. IMPRESSION: IMPROVING CHANGES OF PULMONARY EDEMA.
[2018-01-30 06:09] LABS: HCT 27.5 % (39.0-53.0); MCH 32.9 pg (25.0-35.0); MCHC 37.8 g/dL (31.0-37.0); MCV 87.1 fL (80.0-100.0); Mean Platelet Volume 6.8; Platelet Count 164 k/uL (150-450); RBC 3.15 m/uL (4.30-5.90); RDW 20.4 % (11.5-15.5); WBC 10.1 k/uL (3.8-10.6)
[2018-01-30 06:30] LABS: Band Neutrophils % 4 %; Neutrophils % (M) 92 %; Nucleated Red Blood Cells 0 /100 WBC (0-0); Total Cells Counted 100
[2018-01-30] MEDS ORDERED: VANCOMYCIN TROUGH DUE 1 EACH MISC MISCELLANE ONE (07:00)
[2018-01-30 07:51] LABS: Glucose,Whole Blood 289 mg/dL (75-99)
[2018-01-30] MEDS: INSULIN ASPART 100 UNIT/ML 1 ML 10 ML VIAL SQ SCH ×2 (08:00)
[2018-01-30] MEDS: PANTOPRAZOLE 40 MG TABLET PO SCH ×2 (08:01→17:05)
[2018-01-30] MEDS: INSULIN DETEMIR 100 UNIT/ML 10 ML VIAL SQ SCH (08:01)
[2018-01-30] MEDS: GABAPENTIN 300 MG CAP PO SCH ×3 (08:01→21:41)
[2018-01-30] MEDS: ASPIRIN 81 MG PO SCH (08:01)
[2018-01-30] MEDS: HEPARIN SODIUM,PORCINE 5,000 UNIT/ML 1 ML VIAL SQ SCH ×2 (08:01→21:41)
[2018-01-30] MEDS: metFORMIN 500 MG TAB PO SCH ×2 (08:01→17:03)
[2018-01-30] MEDS: NYSTATIN 100,000 UNIT/ML SUSP 500,000 UNIT/5 ML CUP PO SCH ×4 (08:02→21:41)
[2018-01-30] MEDS: POTASSIUM CHLORIDE ER 10 MEQ TAB.ER.PRT PO SCH (08:02)
[2018-01-30] MEDS: VANCOMYCIN 1,500 MG in SODIUM CHLORIDE 0.9% 250 ML IVPB SCH (08:03)
[2018-01-30] MEDS: ALLOPURINOL 300 MG TAB PO SCH (08:04)
[2018-01-30] MEDS: IPRATROPIUM-ALBUTEROL 3 ML NEB INHALATION SCH ×4 (08:09→19:22)
--- NOTE | 2018-01-30 09:14 | P.PN ---
Subjective Progress Note Date: 01/30/18 Principal diagnosis: Sepsis/pneumonitis Progress note dated 01/28/2018 This is an 82-year-old male initially seen in consultation for shortness of breath. The shortness of breath is likely related to fluid overload/heart failure or could possibly related to pneumonitis. In addition, there were some concerns about radiation pneumonitis/fibrosis given his previous radiation for esophageal cancer. The patient has acute hypoxemic respiratory failure history of esophageal cancer status post chemoradiation, previous history of pneumonia, hypertension, diabetes, gout, Hernandez's esophagus, GERD, hyperlipidemia and lactic acidemia. Currently, the patient seemed to be slightly improved. Is currently on BiPAP with an IPAP of 12 and EPAP of 5. FiO2 is 50%. Saline IV is at KVO. Saturations are 100%. We gave him a small amount of Ativan IV. Seems of settle him down. He is sleeping and seems to be comfortable. Much less fidgety. Chest x-ray is certainly improved. Progress note dated 01/29/2018 82-year-old male, initially seen for shortness of breath. The shortness of breath was thought to be related to either fluid overload/heart failure or pneumonia/pneumonitis. It may be the latter more than the former given the fact that his N-terminal proBNP is relatively low. In addition, there were some concerns about radiation pneumonitis given his previous radiation for esophageal cancer. The patient has acute hypoxemic respiratory failure, esophageal cancer, chemoradiation for esophageal cancer, pneumonia, hypertension , diabetes, gout, Hernandez's esophagus, GERD, and hyperlipidemia. The patient's currently on O2 at 5 L by nasal cannula. In addition, he does spend time on BiPAP with an IPAP of 12, EPAP of 5 and 50%. His IV fluids are saline at 10 mL an hour. Chest x-ray shows diffuse bilateral infiltrates which could be consistent with fluid overload and/or pneumonia. Microbiology is completely negative. White count 5.3 hemoglobin 9.9 hematocrit 30.1 platelet count 115, 000. Basic metabolic profile is normal. Chest x-ray is difficult to interpret and could be consistent with either interstitial edema and/or interstitial pneumonia. Reason is seen again today 01/30/2018 in follow-up in the intensive care unit. He is currently awake and alert in no acute distress. He is doing better today as compared to yesterday. He did utilize the BiPAP throughout the evening / at 50%. He is now maintaining good O2 saturations in the 90s on 5 L/m per nasal cannula. The 0.9 normal saline at 20 ML's per hour. Today's chest x-ray reveals evidence of pneumonia left greater than right improved compared to yesterday. Urine and blood cultures reveal no growth to date. White count 10.1. Hemoglobin 10.4. Creatinine 0.90. He is currently on vancomycin and cefepime. He was initiated on IV Solu-Medrol yesterday with concern for radiation pneumonitis. Objective - Vital Signs Vital signs: Vital Signs Temp 96.8 F L 01/30/18 04:00 Pulse 96 01/30/18 08:11 Resp 22 01/30/18 07:00 BP 121/61 01/30/18 07:00 Pulse Ox 100 01/30/18 07:00 Intake & Output 01/29/18 01/30/18 01/30/18 18:59 06:59 18:59 Intake Total 390 360 Output Total 645 475 Balance -255 -115 Weight 86.6 kg 87.2 kg Intake: IV 390 360 Cefepime 2 gm In Sodium 50 100 Chloride 0.9% 50 ml @ 100 mls/hr IVPB Q12HR [facility] Rx #:[id number] Potassium Chloride 10 meq 100 In Water For Injection 1 100ml.bag @ 100 mls/hr IVPB Q1HR [facility] Rx#: [id number] Sodium Chloride 0.9% 1, 240 260 000 ml @ 20 mls/hr IV . Q24H [facility] Rx#:[id number] Output: Urine 645 475 Other: Voiding Method Indwelling Catheter Indwelling Catheter - Exam No acute distress, sleeping, Nasal O2 at 5 L/m is noted. Currently off BiPAP. Seems mildly short of breath. HEENT examination is grossly unremarkable. Mucous membranes are moist. No oral lesions. Neck supple. Full range of motion. No adenopathy thyromegaly or neck vein distention. Cardiovascular examination reveals regular rhythm rate. S1-S2 normal. No S3 or S4. No discernible murmur noted. Heart sounds are distant. Lungs reveal bilateral crackles. A few scattered rhonchi noted. Breath sounds are equal bilaterally. No wheezes are noted. Breath sounds are about what they were yesterday. Abdomen soft bowel sounds are heard. No masses or tenderness. Extremities are intact. No cyanosis or clubbing noted. Very minimal edema appreciated Skin is without rash or lesion. Neurologic examination is brief but nonfocal. - Labs CBC & Chem 7: 01/30/18 05:37 01/30/18 05:37 Labs: Abnormal Lab Results - Last 24 Hours (Table) 01/29/18 01/29/18 01/29/18 Range/Units 11:46 17:23 19:13 RBC (4.30-5.90) m/uL Hgb (13.0-17.5) gm/dL Hct (39.0-53.0) % MCHC (31.0-37.0) g/dL RDW (11.5-15.5) % Neutrophils # (Manual) (1.3-7.7) k/uL Lymphocytes # (Manual) (1.0-4.8) k/uL Fibrinogen 885 H (200-500) mg/dL Sodium (137-145) mmol/L Chloride (98-107) mmol/L Carbon Dioxide (22-30) mmol/L BUN (9-20) mg/dL Glucose (74-99) mg/dL POC Glucose (mg/dL) 242 H 276 H (75-99) mg/dL Calcium (8.4-10.2) mg/dL 01/29/18 01/29/18 01/30/18 Range/Units 19:56 22:06 00:40 RBC (4.30-5.90) m/uL Hgb (13.0-17.5) gm/dL Hct (39.0-53.0) % MCHC (31.0-37.0) g/dL RDW (11.5-15.5) % Neutrophils # (Manual) (1.3-7.7) k/uL Lymphocytes # (Manual) (1.0-4.8) k/uL Fibrinogen (200-500) mg/dL Sodium (137-145) mmol/L Chloride (98-107) mmol/L Carbon Dioxide (22-30) mmol/L BUN (9-20) mg/dL Glucose (74-99) mg/dL POC Glucose (mg/dL) 335 H 310 H 265 H (75-99) mg/dL Calcium (8.4-10.2) mg/dL 01/30/18 01/30/18 01/30/18 Range/Units 05:37 05:37 07:48 RBC 3.15 L (4.30-5.90) m/uL Hgb 10.4 L (13.0-17.5) gm/dL Hct 27.5 L (39.0-53.0) % MCHC 37.8 H (31.0-37.0) g/dL RDW 20.4 H (11.5-15.5) % Neutrophils # (Manual) 9.60 H (1.3-7.7) k/uL Lymphocytes # (Manual) 0.30 L (1.0-4.8) k/uL Fibrinogen (200-500) mg/dL Sodium 136 L (137-145) mmol/L Chloride 108 H (98-107) mmol/L Carbon Dioxide 21 L (22-30) mmol/L BUN 21 H (9-20) mg/dL Glucose 268 H (74-99) mg/dL POC Glucose (mg/dL) 289 H (75-99) mg/dL Calcium 8.0 L (8.4-10.2) mg/dL Microbiology - Last 24 Hours (Table) 01/26/18 13:26 Blood Culture - Preliminary Blood No Growth after 72 hours Assessment and Plan Assessment: Assessment Shortness of breath, which may be multifactorial in part related to fluid overload/heart failure as well as possible pneumonitis given his septic picture on admission Acute hypoxemic respiratory failure secondary to above. History of esophageal cancer, status post chemo and radiation therapy Rule out radiation pneumonitis/fibrosis Previous history of pneumonia History of hypertension Diabetes mellitus by history History of gout History of Hernandez's esophagus History of GERD Hyperlipidemia Lactic acidemia Plan: The patient was seen and evaluated by Dr. Akhtar. Chest x-ray and labs were reviewed. He is improved today as compared to yesterday. He did utilize BiPAP last evening. Currently maintaining good O2 saturations in the 90s on 5 L/m per nasal cannula. Continue with vancomycin and cefepime. Continue IV Solu- Medrol bronchodilators. We will continue to monitor him closely here in the intensive care unit. We'll continue to follow. Critical care time 33 minutes. I, the cosigning physician, performed a history & physical examination of the patient. Lungs sounds with bilateral scattered rhonchi, crackles in the bases.. Maintaining good O2 saturations in the 90s on 5 L/m per nasal cannula. I discussed the assessment and plan of care with my nurse practitioner, Heather Lara. I attest to the above note as dictated by her.
[2018-01-30] MEDS: CEFEPIME 2 GM in SODIUM CHLORIDE 0.9% 50 ML IVPB SCH ×2 (09:44→21:41)
[2018-01-30 11:40] LABS: Glucose,Whole Blood 335 mg/dL (75-99)
[2018-01-30] MEDS ORDERED: INSULIN REGULAR BOLUS (FROM DRIP BAG) IV PRN (11:45)
--- NOTE | 2018-01-30 11:53 | PN ---
PROGRESS NOTE DATE OF SERVICE: January 30, 2018. CHIEF COMPLAINT: Short of breath. Drew is seen today as a followup. He remains in the intensive care unit. He remains short of breath but is slightly better than yesterday. He is overall tired. No fever or chills. Medications reviewed in his electronic medical record. On examination, he is alert, oriented x3. He appears to be dyspneic. His vital signs are temperature 97.3, and he has been afebrile now. His blood pressure 115/59, pulse ox is 99 percent on 5 L nasal cannula. HEENT is normocephalic, atraumatic. Neck is supple. Chest reveals equal expansion bilaterally. Lungs revealed crackles in both nogueira. Heart is tachy and regular. Abdomen is soft. Extremities revealed mild edema. LABORATORY DATA: WBC are 10.1, hemoglobin 10.4, hematocrit 27.5, platelets are 164. IMPRESSION: 1. Esophageal carcinoma, locally advanced, completed chemoradiation therapy in September of 2017. There is no evidence to suggest recurrence at this point in time. 2. Mild anemia and thrombocytopenia. This is multifactorial related to his current acute condition and antibiotics appear to be slowly improving. 3. Respiratory failure. This is multifactorial in part related to fluid overload and possibly late radiation pneumonitis. RECOMMENDATION: 1. I discussed the above with the patient and his family at bedside. 2. Continue current management per ICU team. 3. Monitor blood count very closely. MMODL / IJN: [id number] /
[2018-01-30] MEDS: INSULIN REGULAR 100 UNIT in SODIUM CHLORIDE 0.9% 100 ML IV SCH ×2 (12:47→21:53)
--- NOTE | 2018-01-30 13:08 | P.CONS ---
History of Present Illness - Reason for Consult Consult date: 01/30/18 Cardoso's esophagus, history of esophageal cancer and silent aspiration - History of Present Illness The patient is an 82-year-old male with history of locally advanced esophageal cancer for which he completed chemotherapy and radiation therapy in September of this year. Repeat upper endoscopy with Dr. Smith January 13 of this year showed mild esophagitis but no evidence of esophageal mass. The patient was admitted to the hospital with shortness of breath and is managed for pneumonitis/fluid overload. We are asked to see him for possible silent reflux. The patient had a modified barium swallow on the and that is reported to be normal. He has been instructed regarding oral intake and consistency of his feedings. The patient is not having any dysphagia, odynophagia or any hematemesis or abdominal pains. Review of Systems Constitutional: Denies fever, chills or unintentional weight loss Neurologic: No headaches, double vision or any sensory or motor changes Cardiopulmonary: No chest pains. Had shortness of breath on admission Gastrointestinal: See present illness above Genitourinary: No hematuria, dysuria or frequency Musculoskeletal: History of gout and osteoarthritis Endocrine: History of diabetes, no thyroid disease Skin: No rashes Hematologic: No anemia or bleeding tendency Psychiatric: No anxiety or depression Past Medical History Past Medical History: Cancer, Diabetes Mellitus, GERD/Reflux, Hyperlipidemia, Hypertension, Osteoarthritis (OA), Pneumonia, Renal Disease Additional Past Medical History / Comment(s): gout, CARDOSO'S esophagus, Esaphageal cancer-completed the last of 28 tx on and has had so far 5 chemo tx last on was last thu09/02/17. pt's stated his weight has gone down from 201 to 183 over 6 weeks. has been drinking vanillia premier protein shakes daily am.hiatal hernia, kidney stones 40 years ago,pne 20 years ago, neuropathy, past stomach ulcers,"lt carotid 100% blkg, shingelles -2016 History of Any Multi-Drug Resistant Organisms: None Reported Past Surgical History: Appendectomy, Orthopedic Surgery Additional Past Surgical History / Comment(s): LILA shoulder rotator CUFF, ORIF LT FOOT thinks he has plate and screws, "esophagus radiofrequency ablation", lila cataracts-lens implants Past Anesthesia/Blood Transfusion Reactions: No Reported Reaction Additional Past Anesthesia/Blood Transfusion Reaction / Comm: . Past Psychological History: No Psychological Hx Reported Smoking Status: Never smoker Past Alcohol Use History: Rare Additional Past Alcohol Use History / Comment(s): no alcohol lately but did occ Past Drug Use History: None Reported - Past Family History Mother Family Medical History: Cancer Additional Family Medical History / Comment(s): . Father Family Medical History: Coronary Artery Disease (CAD) Additional Family Medical History / Comment(s): AT AGE 53 Medications and Allergies Home Medications Medication Instructions Recorded Confirmed Type Cetirizine HCl 10 mg PO DAILY PRN 07/05/15 01/26/18 History Nitroglycerin Sl Tabs [Nitrostat] 0.4 mg SUBLINGUAL Q5M PRN 07/05/15 01/26/18 History Metoprolol Tartrate [Lopressor] 25 mg PO DAILY 09/01/17 01/26/18 History Pravastatin Sodium [Pravachol] 80 mg PO HS 09/01/17 01/26/18 History Gabapentin [Neurontin] 600 mg PO BID 09/09/17 01/26/18 History Potassium Chloride ER [K-Dur 10] 10 meq PO DAILY 09/24/17 01/26/18 History Zolpidem [Ambien] 10 mg PO HS PRN 09/24/17 01/26/18 History metFORMIN HCL [Glucophage] 1,000 mg PO BID 09/24/17 01/26/18 History Aspirin EC [Ecotrin Low Dose] 81 mg PO DAILY 12/24/17 01/26/18 History Levofloxacin [Levaquin] 500 mg PO DAILY #5 tab 01/15/18 01/26/18 Rx Albuterol Inhaler [Ventolin Hfa 1 - 2 puff INHALATION RT-Q6H PRN 01/26/18 History Inhaler] Allopurinol [Zyloprim] 300 mg PO DAILY 01/26/18 01/26/18 History Gabapentin [Neurontin] 1,200 mg PO HS 01/26/18 01/26/18 History INSULIN LISPRO (HumaLOG) [humaLOG] 14 unit SQ ACHS 01/26/18 01/26/18 History INSULIN LISPRO (humaLOG) [humaLOG] See Protocol SQ ACHS 01/26/18 01/26/18 History Insulin Glargine,Hum.rec.anlog 14 unit SQ AC-BID 01/26/18 01/26/18 History [Lantus Solostar] Nystatin 100,000 Unit/ml Susp 10 ml PO QID 01/26/18 01/26/18 History [Mycostatin Oral Susp] Omeprazole 40 mg PO BID 01/26/18 01/26/18 History Torsemide [Demadex] 100 mg PO DAILY 01/26/18 01/26/18 History Allergies Allergy/AdvReac Type Severity Reaction Status Date / Time latex Allergy Itching Verified 01/26/18 13:52 penicillin G Allergy Rash/Hives Verified 01/26/18 13:52 Physical Exam Vitals: Vital Signs Temp Pulse Pulse Resp BP Pulse Ox 01/30/18 09:00 97.3 F L 103 H 27 H 115/59 99 01/30/18 08:11 96 01/30/18 08:00 100 33 H 114/66 95 01/30/18 07:00 80 22 121/61 100 01/30/18 06:00 81 21 113/60 100 01/30/18 05:00 83 27 H 116/64 99 01/30/18 04:00 96.8 F L 80 100 21 110/58 100 01/30/18 03:00 83 20 111/59 100 01/30/18 02:00 82 20 108/55 100 01/30/18 01:00 82 22 108/54 100 01/30/18 00:00 97.9 F 83 100 24 106/59 100 01/29/18 23:00 88 22 100/55 100 01/29/18 22:00 93 29 H 113/55 98 01/29/18 21:23 94 33 H 110/59 97 01/29/18 21:00 98 22 110/59 97 01/29/18 20:00 98.7 F 96 92 22 116/63 98 01/29/18 19:51 95 01/29/18 19:41 92 01/29/18 19:00 98 25 H 104/57 97 01/29/18 18:00 99 28 H 106/62 97 01/29/18 17:00 95 23 109/56 98 01/29/18 16:05 95 01/29/18 16:00 99.2 F 94 33 H 109/55 100 01/29/18 15:56 95 01/29/18 15:00 91 28 H 106/58 100 01/29/18 14:00 90 26 H 108/61 100 01/29/18 13:00 93 24 106/61 100 01/29/18 12:00 99.6 F 107 H 38 H 109/61 93 L 01/29/18 11:52 100 01/29/18 11:46 98 01/29/18 11:00 103 H 33 H 111/64 92 L 01/29/18 10:00 98 22 100/56 96 Intake and Output 01/29/18 01/30/18 01/30/18 22:59 06:59 14:59 Intake Total 260 180 630 Output Total 255 360 150 Balance 5 -180 480 Intake: IV 260 180 390 Cefepime 2 gm In Sodium 100 100 Chloride 0.9% 50 ml @ 100 mls/hr IVPB Q12HR [facility] Rx #:[id number] Sodium Chloride 0.9% 1, 160 180 40 000 ml @ 20 mls/hr IV . Q24H [facility] Rx#:[id number] Vancomycin 1,500 mg In 250 Sodium Chloride 0.9% 250 ml @ 125 mls/hr IVPB Q16H [facility] Rx#:[id number] Oral 240 Output: Urine 255 360 150 Other: Voiding Method Indwelling Catheter Indwelling Catheter Weight 87.2 kg General: Appears stated age, very pleasant, in no acute distress Neck: Normocephalic and atraumatic, conjunctivae pink and sclerae not icteric, mucous membranes moist and pink. No masses in the neck or tracheal shifts Lungs: Clear to auscultation with no dullness to percussion Heart: Regular, no abnormal sounds, gallops or friction rubs Abdomen: Soft, no tenderness, bowel sounds present. No masses or organomegalies Extremities: No clubbing, cyanosis or edema Neurologic: Alert and oriented 3, cranial nerves grossly intact, no gross sensory or motor abnormalities Results CBC & Chem 7: 01/30/18 05:37 01/30/18 05:37 Labs: Abnormal Lab Results - Last 24 Hours (Table) 01/29/18 01/29/18 01/29/18 Range/Units 11:46 17:23 19:13 RBC (4.30-5.90) m/uL Hgb (13.0-17.5) gm/dL Hct (39.0-53.0) % MCHC (31.0-37.0) g/dL RDW (11.5-15.5) % Neutrophils # (Manual) (1.3-7.7) k/uL Lymphocytes # (Manual) (1.0-4.8) k/uL Fibrinogen 885 H (200-500) mg/dL Sodium (137-145) mmol/L Chloride (98-107) mmol/L Carbon Dioxide (22-30) mmol/L BUN (9-20) mg/dL Glucose (74-99) mg/dL POC Glucose (mg/dL) 242 H 276 H (75-99) mg/dL Calcium (8.4-10.2) mg/dL 01/29/18 01/29/18 01/30/18 Range/Units 19:56 22:06 00:40 RBC (4.30-5.90) m/uL Hgb (13.0-17.5) gm/dL Hct (39.0-53.0) % MCHC (31.0-37.0) g/dL RDW (11.5-15.5) % Neutrophils # (Manual) (1.3-7.7) k/uL Lymphocytes # (Manual) (1.0-4.8) k/uL Fibrinogen (200-500) mg/dL Sodium (137-145) mmol/L Chloride (98-107) mmol/L Carbon Dioxide (22-30) mmol/L BUN (9-20) mg/dL Glucose (74-99) mg/dL POC Glucose (mg/dL) 335 H 310 H 265 H (75-99) mg/dL Calcium (8.4-10.2) mg/dL 01/30/18 01/30/18 01/30/18 Range/Units 05:37 05:37 07:48 RBC 3.15 L (4.30-5.90) m/uL Hgb 10.4 L (13.0-17.5) gm/dL Hct 27.5 L (39.0-53.0) % MCHC 37.8 H (31.0-37.0) g/dL RDW 20.4 H (11.5-15.5) % Neutrophils # (Manual) 9.60 H (1.3-7.7) k/uL Lymphocytes # (Manual) 0.30 L (1.0-4.8) k/uL Fibrinogen (200-500) mg/dL Sodium 136 L (137-145) mmol/L Chloride 108 H (98-107) mmol/L Carbon Dioxide 21 L (22-30) mmol/L BUN 21 H (9-20) mg/dL Glucose 268 H (74-99) mg/dL POC Glucose (mg/dL) 289 H (75-99) mg/dL Calcium 8.0 L (8.4-10.2) mg/dL Microbiology - Last 24 Hours (Table) 01/26/18 13:26 Blood Culture - Preliminary Blood No Growth after 72 hours Assessment and Plan Assessment: History of esophageal cancer with normal upper endoscopy earlier this month, presenting with shortness of breath and pneumonitis but no evidence of aspiration on modified barium swallow. Plan: Agree with your current management. The patient appears to be tolerating his current dietary regimen and is not having any cough or any evidence to suggest aspiration. I did not schedule any additional testing at this time and will make further decisions based on his course.
[2018-01-30] MEDS: LORazepam 2 MG/ML INJ IV PRN ×2 (13:09→23:03)
[2018-01-30 13:33] LABS: Glucose,Whole Blood 280 mg/dL (75-99)
[2018-01-30 14:09] LABS: Glucose,Whole Blood 272 mg/dL (75-99)
[2018-01-30 14:56] LABS: Glucose,Whole Blood 254 mg/dL (75-99)
[2018-01-30 16:03] LABS: Glucose,Whole Blood 191 mg/dL (75-99)
[2018-01-30 17:03] LABS: Glucose,Whole Blood 178 mg/dL (75-99)
[2018-01-30 18:02] LABS: Glucose,Whole Blood 203 mg/dL (75-99)
[2018-01-30 19:06] LABS: Glucose,Whole Blood 224 mg/dL (75-99)
--- NOTE | 2018-01-30 19:53 | PN ---
PROGRESS NOTE DATE OF SERVICE: 01/30/2018. INTERVAL HISTORY: This 82-year-old gentleman who was admitted with bilateral pneumonia had a possible gram-negative pneumonia with severe sepsis and septic shock. Patient is closely monitored at this time. The patient is on BiPAP at this time. The cultures are growing negative so far at this time. A chest x-ray was reviewed and the patient is being closely monitored at this time. The patient also had some pulmonary edema as well. Gastroenterology has seen the patient for history of esophageal cancer and the patient had recent normal upper endoscopy. The patient is followed by Dr. Akhtar and Dr. Resendez, also. No evidence of recurrence was noted this time. The blood sugar is also elevated. The patient has been transitioned to IV insulin drip for steroids. PAST MEDICAL HISTORY: Reviewed. REVIEW OF SYSTEMS: CARDIOVASCULAR: As mentioned earlier. RESPIRATORY: As mentioned earlier. GI: No nausea. : No dysuria. NERVOUS: No numbness or weakness. CURRENT MEDICATIONS: Reviewed, include: 1. Tylenol 500 mg every 6 hours p.r.n. 2. DuoNeb q.i.d. and p.r.n. 3. Zyloprim 300 mg daily. 4. Aspirin 81 mg daily. 5. Cefepime 2 g IV b.i.d. 6. Neurontin 1200 mg q.h.s., Neurontin b.i.d. 7. Heparin 5 subcu b.i.d. 8. Heparin bolus. 9. Ativan. 10.Glucophage 1000 mg b.i.d. 11.Solu-Medrol 40 IV q.8h. 12.P.r.n. medications: a. Narcan p.r.n. b. Nitrostat p.r.n. 13.Protonix 40 mg b.i.d. 14.K-Dir 10 mEq p.o. daily. 15.Pravachol. 16.Vancomycin. 17.Ambien. PHYSICAL EXAM: Patient is alert, oriented x3. Pulse is 105, blood pressure is 100/61, respirations 32, temperature 97.8, pulse ox 97% on 5L HEENT: Conjunctivae normal. Oral mucosa moist. NECK: No jugular venous distention. No carotid bruits. No lymph node enlargement. CARDIOVASCULAR: S1, S2 muffled. RESPIRATORY: Breath sounds diminished in the bases. Bilateral scattered rhonchi and crackles. ABDOMEN: Soft, nontender. No mass palpable. LEGS: No edema. NERVOUS SYSTEM: Nonfocal. LAB STUDIES: WBC 10, hemoglobin is 10.4. Sodium 136. ASSESSMENT: 1. Bilateral pneumonia, possibly gram-negative, with severe sepsis and septic shock. 2. Hypotension secondary to sepsis. 3. Possible aspiration pneumonia. 4. Esophageal carcinoma, status post chemotherapy, radiation. Most recent esophagogastroduodenoscopy 01/13/2018 showing no masses. 5. Diabetes mellitus type 2. 6. Gastroesophageal reflux disease. 7. Hypertension. 8. Hyperlipidemia. 9. History of degenerative joint disease. 10.History of left carotid stenosis. 11.Gout. 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 13.History no nephrolithiasis. 14.History of gastric cancer. 15.History of appendectomy. 16.Increased creatinine with chronic kidney, stage 3. 17.Increased plasma lactic acid. RECOMMENDATIONS AND DISCUSSION: Recommend to continue current medical management, continue symptomatic treatment. Continue with IV steroids. Continue with bronchodilators. Continue with empiric antibiotics. DVT prophylaxis. Otherwise, IV insulin drip at this time. Will continue to monitor, monitor the blood sugars. Otherwise, guarded prognosis because of multiple complex medical issues. Further recommendations to follow. MMODL / IJN: [id number] /
[2018-01-30 20:21] LABS: Glucose,Whole Blood 246 mg/dL (75-99)
[2018-01-30 21:22] LABS: Glucose,Whole Blood 246 mg/dL (75-99)
[2018-01-30] MEDS: PRAVASTATIN SODIUM 80 MG TAB PO SCH (21:40)
[2018-01-30] MEDS: ZOLPIDEM 10 MG TAB PO PRN (21:41)
[2018-01-30 21:54] LABS: Glucose,Whole Blood 243 mg/dL (75-99)
[2018-01-30 23:00] LABS: Glucose,Whole Blood 195 mg/dL (75-99)
[2018-01-31 00:29] LABS: Glucose,Whole Blood 160 mg/dL (75-99)
[2018-01-31] MEDS: methylPREDNISolone SOD SUCCI 40 MG/ML 1 ML VIAL IV SCH ×4 (00:44→17:33)
[2018-01-31] MEDS: VANCOMYCIN 1,750 MG in SODIUM CHLORIDE 0.9% 500 ML IVPB SCH ×2 (00:44→16:16)
[2018-01-31] MEDS: SODIUM CHLORIDE 0.9% 1,000 ML IV SCH (00:45)
[2018-01-31 01:43] LABS: Glucose,Whole Blood 140 mg/dL (75-99)
[2018-01-31 03:07] LABS: Glucose,Whole Blood 223 mg/dL (75-99)
[2018-01-31 04:14] LABS: Glucose,Whole Blood 194 mg/dL (75-99)
--- NOTE | 2018-01-31 04:17 | PN ---
PROGRESS NOTE DATE OF SERVICE: 01/30/2018. REASON FOR FOLLOWUP: Pneumonia. INTERVAL HISTORY: The patient is currently afebrile. He is breathing more comfortably. Denies significant chest pain. Occasional cough. No abdominal pain. No nausea, no vomiting and no diarrhea. EXAMINATION: Blood pressure 115/55 with a pulse of 108, temperature of 98. He is 94% on 5 L nasal cannula. General description is an elderly male lying in bed in no distress. RESPIRATORY SYSTEM: Unlabored breathing with decreased breath sounds in the bases. No wheeze. HEART: S1, S2. Regular rate and rhythm. ABDOMEN: Soft, no tenderness. EXTREMITIES: No edema of the feet. LABS: White count 10.1. Blood culture has been negative. No sputum was provided. DIAGNOSTIC IMPRESSION AND PLAN: Patient with pneumonia, concern for possible gram-negative aspiration. Patient is currently covered with cefepime and Vanco. that will be continued. Will try to obtain a sputum to narrow down antibiotics. Continue supportive care. MMODL / IJN: [id number] /
[2018-01-31 05:08] LABS: Glucose,Whole Blood 154 mg/dL (75-99)
[2018-01-31 05:13] LABS: Anisocytosis Moderate; Basophils % (A) 0 %; Eosinophils % (A) 0 %; HCT 29.8 % (39.0-53.0); HGB 9.8 gm/dL (13.0-17.5); Hypochromasia Slight; Lymphocytes # (A) 0.3 k/uL (1.0-4.8); Lymphocytes % (A) 3 %; MCH 28.4 pg (25.0-35.0); MCHC 32.8 g/dL (31.0-37.0); MCV 86.4 fL (80.0-100.0); Microcytosis Slight; Monocytes # (A) 0.3 k/uL (0-1.0); Monocytes % (A) 3 %; Neutrophils # (A) 9.1 k/uL (1.3-7.7); Neutrophils % (A) 94 %; Platelet Count 148 k/uL (150-450); RBC 3.45 m/uL (4.30-5.90); RDW 20.7 % (11.5-15.5); WBC 9.7 k/uL (3.8-10.6)
[2018-01-31 05:34] LABS: Calcium 8.5 mg/dL (8.4-10.2); Magnesium 2.3 mg/dL (1.6-2.3); Potassium 4.6 mmol/L (3.5-5.1)
[2018-01-31 06:00] LABS: Glucose,Whole Blood 126 mg/dL (75-99)
--- NOTE | 2018-01-31 06:58 | XR ---
EXAMINATION TYPE: XR chest 1V DATE OF EXAM: 01/31/2018 HISTORY: pneumonia. REFERENCE: Previous study dated 01/30/2018. FINDINGS: The heart remains enlarged. There is vascular congestion and mild pulmonary edema. I suspec t small, bilateral effusions. IMPRESSION: CONTINUING CHANGES OF PULMONARY EDEMA.
[2018-01-31 07:01] LABS: Glucose,Whole Blood 138 mg/dL (75-99)
[2018-01-31] MEDS: SODIUM PHOSPHATE 10 MMOL in SODIUM CHLORIDE 0.9% 250 ML IVPB SCH ×2 (07:09→10:13)
[2018-01-31] MEDS: IPRATROPIUM-ALBUTEROL 3 ML NEB INHALATION SCH ×4 (07:46→19:35)
[2018-01-31] MEDS: LORazepam 2 MG/ML INJ IV PRN ×2 (08:05→15:13)
[2018-01-31 08:13] LABS: Glucose,Whole Blood 199 mg/dL (75-99)
[2018-01-31] MEDS: metFORMIN 500 MG TAB PO SCH ×2 (08:13→17:33)
[2018-01-31] MEDS: GABAPENTIN 300 MG CAP PO SCH ×3 (08:13→20:05)
[2018-01-31] MEDS: ASPIRIN 81 MG PO SCH (08:13)
[2018-01-31] MEDS: PANTOPRAZOLE 40 MG TABLET PO SCH ×2 (08:13→17:33)
[2018-01-31] MEDS: HEPARIN SODIUM,PORCINE 5,000 UNIT/ML 1 ML VIAL SQ SCH ×2 (08:13→20:04)
[2018-01-31] MEDS: NYSTATIN 100,000 UNIT/ML SUSP 500,000 UNIT/5 ML CUP PO SCH ×5 (08:14→21:26)
[2018-01-31] MEDS: POTASSIUM CHLORIDE ER 10 MEQ TAB.ER.PRT PO SCH (08:14)
[2018-01-31] MEDS: ALLOPURINOL 300 MG TAB PO SCH (08:14)
--- NOTE | 2018-01-31 08:42 | P.PN ---
Subjective Progress Note Date: 01/31/18 Principal diagnosis: Sepsis/pneumonitis Progress note dated 01/28/2018 This is an 82-year-old male initially seen in consultation for shortness of breath. The shortness of breath is likely related to fluid overload/heart failure or could possibly related to pneumonitis. In addition, there were some concerns about radiation pneumonitis/fibrosis given his previous radiation for esophageal cancer. The patient has acute hypoxemic respiratory failure history of esophageal cancer status post chemoradiation, previous history of pneumonia, hypertension, diabetes, gout, Hernandez's esophagus, GERD, hyperlipidemia and lactic acidemia. Currently, the patient seemed to be slightly improved. Is currently on BiPAP with an IPAP of 12 and EPAP of 5. FiO2 is 50%. Saline IV is at KVO. Saturations are 100%. We gave him a small amount of Ativan IV. Seems of settle him down. He is sleeping and seems to be comfortable. Much less fidgety. Chest x-ray is certainly improved. Progress note dated 01/29/2018 82-year-old male, initially seen for shortness of breath. The shortness of breath was thought to be related to either fluid overload/heart failure or pneumonia/pneumonitis. It may be the latter more than the former given the fact that his N-terminal proBNP is relatively low. In addition, there were some concerns about radiation pneumonitis given his previous radiation for esophageal cancer. The patient has acute hypoxemic respiratory failure, esophageal cancer, chemoradiation for esophageal cancer, pneumonia, hypertension , diabetes, gout, Hernandez's esophagus, GERD, and hyperlipidemia. The patient's currently on O2 at 5 L by nasal cannula. In addition, he does spend time on BiPAP with an IPAP of 12, EPAP of 5 and 50%. His IV fluids are saline at 10 mL an hour. Chest x-ray shows diffuse bilateral infiltrates which could be consistent with fluid overload and/or pneumonia. Microbiology is completely negative. White count 5.3 hemoglobin 9.9 hematocrit 30.1 platelet count 115, 000. Basic metabolic profile is normal. Chest x-ray is difficult to interpret and could be consistent with either interstitial edema and/or interstitial pneumonia. Progress note dated 01/31/2018 82-year-old male initially seen for shortness of breath. The shortness of breath was thought to be related to either fluid overload/heart failure and/or pneumonitis. In addition, there may be a component of radiation pneumonitis as well. The patient was started on corticosteroids along with breathing treatments and seemed be doing better. He does have a previous history of esophageal cancer, status post chemoradiation. The patient has a history of acute hypoxemic respiratory failure, esophageal cancer status post chemoradiation pneumonia hypertension diabetes gout Hernnadez's esophagus GERD and hyperlipidemia. Currently, the patient's on AIRVO at 50 L/m and 50% humidity. He also spends time on nasal prongs and BiPAP. Currently, he is on an insulin drip which is on hold and a saline IV at 20 mL an hour. Chest x-ray shows diffuse changes, which could be consistent with heart failure. All microbiologic studies have been negative thus far. White count is 9.7 hemoglobin 9.8 hematocrit 29.8 platelet count 148,000. Sodium and potassium are normal. Chlorides 111 CO2 19 BUN 37 and creatinine 1.10 Objective - Vital Signs Vital signs: Vital Signs Temp 97.8 F 01/31/18 08:00 Pulse 100 01/31/18 08:01 Resp 31 H 01/31/18 08:00 BP 115/63 01/31/18 08:00 Pulse Ox 100 01/31/18 08:00 Intake & Output 01/30/18 01/31/18 01/31/18 18:59 06:59 18:59 Intake Total 1395.402 914.568 530 Output Total 430 920 215 Balance 965.402 -5.432 315 Weight 89.6 kg Intake: IV 620 820 290 Cefepime 2 gm In Sodium 150 100 Chloride 0.9% 50 ml @ 100 mls/hr IVPB Q12HR [facility] Rx #:[id number] Sodium Chloride 0.9% 1, 220 220 40 000 ml @ 20 mls/hr IV . Q24H [facility] Rx#:[id number] Sodium Phosphate 10 mmol 250 In Sodium Chloride 0.9% 250 ml @ 125 mls/hr IVPB Q2H [facility] Rx#:[id number] Vancomycin 1,500 mg In 250 500 Sodium Chloride 0.9% 250 ml @ 125 mls/hr IVPB Q16H [facility] Rx#:[id number] Intake, IV Titration 55.402 94.568 0 Amount Insulin Regular 100 unit 55.402 94.568 0 In Sodium Chloride 0.9% 100 ml @ Per Protocol IV .Q0M [facility] Rx#:[id number] Oral 720 240 Output: Urine 430 920 215 Other: Voiding Method Indwelling Catheter Indwelling Catheter - Exam No acute distress, awake and alert. The patient's currently on high flow oxygen therapy at 50 L/m and a 50% humidity.. HEENT examination is grossly unremarkable. Mucous membranes are moist. No oral lesions. Neck supple. Full range of motion. No adenopathy thyromegaly or neck vein distention. Cardiovascular examination reveals regular rhythm rate. S1-S2 normal. No S3 or S4. No discernible murmur noted. Heart sounds are distant. Lungs reveal bilateral crackles. A few scattered rhonchi noted. Breath sounds are equal bilaterally. No wheezes are noted. Breath sounds are evaluated and thought to be improved with improved air exchange compared to prior day evaluations. Abdomen soft bowel sounds are heard. No masses or tenderness. Extremities are intact. No cyanosis or clubbing noted. Very minimal edema appreciated Skin is without rash or lesion. Neurologic examination is brief but nonfocal. - Labs CBC & Chem 7: 01/31/18 04:56 01/31/18 04:56 Labs: Abnormal Lab Results - Last 24 Hours (Table) 01/30/18 01/30/18 01/30/18 Range/Units 11:38 13:31 14:07 RBC (4.30-5.90) m/uL Hgb (13.0-17.5) gm/dL Hct (39.0-53.0) % RDW (11.5-15.5) % Plt Count (150-450) k/uL Neutrophils # (1.3-7.7) k/uL Lymphocytes # (1.0-4.8) k/uL Chloride (98-107) mmol/L Carbon Dioxide (22-30) mmol/L BUN (9-20) mg/dL Glucose (74-99) mg/dL POC Glucose (mg/dL) 335 H 280 H 272 H (75-99) mg/dL Phosphorus (2.5-4.5) mg/dL 01/30/18 01/30/18 01/30/18 Range/Units 14:55 16:01 17:02 RBC (4.30-5.90) m/uL Hgb (13.0-17.5) gm/dL Hct (39.0-53.0) % RDW (11.5-15.5) % Plt Count (150-450) k/uL Neutrophils # (1.3-7.7) k/uL Lymphocytes # (1.0-4.8) k/uL Chloride (98-107) mmol/L Carbon Dioxide (22-30) mmol/L BUN (9-20) mg/dL Glucose (74-99) mg/dL POC Glucose (mg/dL) 254 H 191 H 178 H (75-99) mg/dL Phosphorus (2.5-4.5) mg/dL 01/30/18 01/30/18 01/30/18 Range/Units 18:00 19:04 20:19 RBC (4.30-5.90) m/uL Hgb (13.0-17.5) gm/dL Hct (39.0-53.0) % RDW (11.5-15.5) % Plt Count (150-450) k/uL Neutrophils # (1.3-7.7) k/uL Lymphocytes # (1.0-4.8) k/uL Chloride (98-107) mmol/L Carbon Dioxide (22-30) mmol/L BUN (9-20) mg/dL Glucose (74-99) mg/dL POC Glucose (mg/dL) 203 H 224 H 246 H (75-99) mg/dL Phosphorus (2.5-4.5) mg/dL 01/30/18 01/30/18 01/30/18 Range/Units 21:20 21:52 22:58 RBC (4.30-5.90) m/uL Hgb (13.0-17.5) gm/dL Hct (39.0-53.0) % RDW (11.5-15.5) % Plt Count (150-450) k/uL Neutrophils # (1.3-7.7) k/uL Lymphocytes # (1.0-4.8) k/uL Chloride (98-107) mmol/L Carbon Dioxide (22-30) mmol/L BUN (9-20) mg/dL Glucose (74-99) mg/dL POC Glucose (mg/dL) 246 H 243 H 195 H (75-99) mg/dL Phosphorus (2.5-4.5) mg/dL 0801/31/18 01/31/18 Range/Units 00:27 01:41 03:06 RBC (4.30-5.90) m/uL Hgb (13.0-17.5) gm/dL Hct (39.0-53.0) % RDW (11.5-15.5) % Plt Count (150-450) k/uL Neutrophils # (1.3-7.7) k/uL Lymphocytes # (1.0-4.8) k/uL Chloride (98-107) mmol/L Carbon Dioxide (22-30) mmol/L BUN (9-20) mg/dL Glucose (74-99) mg/dL POC Glucose (mg/dL) 160 H 140 H 223 H (75-99) mg/dL Phosphorus (2.5-4.5) mg/dL 01/31/18 01/31/18 01/31/18 Range/Units 04:02 04:56 04:56 RBC 3.45 L (4.30-5.90) m/uL Hgb 9.8 L (13.0-17.5) gm/dL Hct 29.8 L (39.0-53.0) % RDW 20.7 H (11.5-15.5) % Plt Count 148 L (150-450) k/uL Neutrophils # 9.1 H (1.3-7.7) k/uL Lymphocytes # 0.3 L (1.0-4.8) k/uL Chloride 111 H (98-107) mmol/L Carbon Dioxide 19 L (22-30) mmol/L BUN 37 H (9-20) mg/dL Glucose 151 H (74-99) mg/dL POC Glucose (mg/dL) 194 H (75-99) mg/dL Phosphorus 2.0 L (2.5-4.5) mg/dL 01/31/18 01/31/18 01/31/18 Range/Units 05:06 05:58 06:59 RBC (4.30-5.90) m/uL Hgb (13.0-17.5) gm/dL Hct (39.0-53.0) % RDW (11.5-15.5) % Plt Count (150-450) k/uL Neutrophils # (1.3-7.7) k/uL Lymphocytes # (1.0-4.8) k/uL Chloride (98-107) mmol/L Carbon Dioxide (22-30) mmol/L BUN (9-20) mg/dL Glucose (74-99) mg/dL POC Glucose (mg/dL) 154 H 126 H 138 H (75-99) mg/dL Phosphorus (2.5-4.5) mg/dL 01/31/18 Range/Units 08:11 RBC (4.30-5.90) m/uL Hgb (13.0-17.5) gm/dL Hct (39.0-53.0) % RDW (11.5-15.5) % Plt Count (150-450) k/uL Neutrophils # (1.3-7.7) k/uL Lymphocytes # (1.0-4.8) k/uL Chloride (98-107) mmol/L Carbon Dioxide (22-30) mmol/L BUN (9-20) mg/dL Glucose (74-99) mg/dL POC Glucose (mg/dL) 199 H (75-99) mg/dL Phosphorus (2.5-4.5) mg/dL Microbiology - Last 24 Hours (Table) 01/26/18 13:26 Blood Culture - Preliminary Blood No Growth after 96 hours Assessment and Plan Assessment: Assessment Shortness of breath, which may be multifactorial in part related to fluid overload/heart failure as well as possible pneumonitis given his septic picture on admission Acute hypoxemic respiratory failure secondary to above. History of esophageal cancer, status post chemo and radiation therapy Rule out radiation pneumonitis/fibrosis Previous history of pneumonia History of hypertension Diabetes mellitus by history History of gout History of Hernandez's esophagus History of GERD Hyperlipidemia Lactic acidemia Plan: Plan dated 01/27/2018 Currently, the patient's on O2 at 4 L by nasal cannula. Saturations are maintained. The patient appears not to need BiPAP at this time. The patient seemed to respond very nicely to BiPAP therapy and Lasix 40 mg IV push. The patient's IV is saline at KVO. The patient's chest x-ray does show a pattern of fluid overload/heart failure. Labs medications and x-rays are all reviewed. White count 8.2, hemoglobin 12.1 hematocrit 37.1 and platelet count 146,000. Sodium potassium chloride CO2 anion gap BUN and creatinine all normal. Most recent lactic acid level V.3 and magnesium 1.2. Urine looks clean. N-terminal pro BNP was only 2:15. The patient's currently on antibiotics in the form of Zithromax and Rocephin. I think that's appropriate for the time being. Is also on updrafts. We'll continue the Lasix at this time. Additional recommendations and suggestions are forthcoming. KVO the IV. Prognosis is guarded. Critical care time 32 minutes Plan dated 01/28/2018 The patient's white blood count is 6 hemoglobin 11.6 hematocrit 35.2 and platelet count is 134,000. Electrolytes were completely normal save for borderline low potassium at 3.2. The chest x-ray certainly shows improvement. Thus far, all microbiology is negative. Medications are reviewed in detail. The patient seems to be a bit more stable. I do believe that the lorazepam IV has really helped. We'll continue on BiPAP for now. Prognosis is guarded. Hopefully he'll continue to show improvement. He remains on good antibiotics in the form of cefepime and vancomycin as per ID recommendations. Additional recommendations and suggestions are forthcoming. Again prognosis is guarded. Critical care time 33 minutes Plan dated 01/29/2018 Currently, the patient's on O2 via nasal cannula at 5 L/m. We turned on his IV last night because of increasing respiratory difficulty and we did give him some Lasix which did seem to improve him. Microbiology is completely negative. The patient's on good antibiotics in the form of cefepime and vancomycin. He remains on updrafts. Labs x-rays a medications are all reviewed. I am going to add some steroids to his regimen. We'll see whether or not this improves the situation. Additional recommendations and suggestions are forthcoming. Medications are reviewed and unnecessary medications are discontinued. Prognosis is guarded. Critical care time 32 minutes Plan dated 01/31/2018 The patient remains on high flow oxygen therapy. This seems to suit him the best. He doesn't like the BiPAP device. The patient's only given a saline IV at 20 mL an hour. He remains on antibiotics. Culture data is negative. Chest x-ray shows a pattern of diffuse infiltrates. Clinically, he seems to be doing a bit better. Less short of breath. He certainly has a long way to go. X- rays labs and medications are all reviewed as above. He remains on cefepime and vancomycin. He is also on updrafts. Prognosis is guarded. Additional recommendations and suggestions are forthcoming. Critical care time 32 minutes Time with Patient: Greater than 30
[2018-01-31] MEDS ORDERED: FUROSEMIDE 10 MG/ML 4 ML VIAL IV STA (08:43)
[2018-01-31] MEDS: CEFEPIME 2 GM in SODIUM CHLORIDE 0.9% 50 ML IVPB SCH ×2 (08:59→20:06)
[2018-01-31 09:07] LABS: Glucose,Whole Blood 219 mg/dL (75-99)
[2018-01-31] MEDS: INSULIN REGULAR 100 UNIT in SODIUM CHLORIDE 0.9% 100 ML IV SCH ×2 (10:11→20:19)
[2018-01-31 10:12] LABS: Glucose,Whole Blood 185 mg/dL (75-99)
[2018-01-31 11:10] LABS: Glucose,Whole Blood 158 mg/dL (75-99)
[2018-01-31 12:15] LABS: Glucose,Whole Blood 133 mg/dL (75-99)
[2018-01-31 13:20] LABS: Glucose,Whole Blood 135 mg/dL (75-99)
[2018-01-31 14:18] LABS: Glucose,Whole Blood 178 mg/dL (75-99)
[2018-01-31 15:02] LABS: Glucose,Whole Blood 233 mg/dL (75-99)
[2018-01-31 16:15] LABS: Glucose,Whole Blood 243 mg/dL (75-99)
[2018-01-31 17:16] LABS: Glucose,Whole Blood 233 mg/dL (75-99)
--- NOTE | 2018-01-31 17:36 | PN ---
PROGRESS NOTE DATE OF SURGERY: 01/31/2018 HISTORY OF PRESENT ILLNESS: This 82-year-old gentleman admitted with bilateral pneumonia, acute respiratory failure also had acute respiratory failure. The patient was transferred to the ICU, being monitored at this time. The patient had features of possibly aspiration pneumonia, overt aspiration is not demonstrated. Infectious Disease and as well as Dr. Akhtar is following the patient closely. The possibility of a component radiation pneumonia is also being considered. The cultures are negative so far. The patient is on vancomycin and cefepime. The patient also on updrafts and steroids. PAST MEDICAL HISTORY: Reviewed. REVIEW OF SYSTEMS: Could not be taken. The patient is sedated at this time. CURRENT MEDICATIONS ARE: Noted. 1. Tylenol 500 mg q.6h. 2. DuoNeb q.i.d. and p.r.n. 3. Zyloprim 300 mg daily. 4. Aspirin 81 mg daily. 5. Vanco 2 g IV b.i.d. 6. Neurontin 1200 mg q.h.s. 7. 600 mg b.i.d. 8. Heparin subcu b.i.d. 9. Humulin scale. 10.Ativan. 11.Glucophage. 12.Solu-Medrol 40 IV q.6h. 13.Protonix. 14.Vancomycin. PHYSICAL EXAM: Patient is sedated at this time. Pulse 75. Blood pressure 107/60, respiration 18, temperature 98.2. Pulse ox 100 percent on 50% FiO2. High-flow oxygen. HEENT: Conjunctivae normal. Oral mucosa moist. Neck is no jugular venous distention. No carotid bruit. Cardiovascular: S1, S2 muffled. Respiratory: Breath sounds diminished in the bases. Bilateral scattered rhonchi and crackles. ABDOMEN: Soft, nontender. Legs: No edema. No swelling. Central nervous system: Sedated. LABS: Accu-Cheks 135, 178. Otherwise WBC 9.2, hemoglobin 9.8. Sodium 140, potassium 4.6. ASSESSMENT: 1. Bilateral pneumonia possibly gram-negative with severe sepsis and septic shock with acute hypoxic respiratory failure on BiPAP. 2. Hypotension secondary to sepsis. 3. Possible aspiration pneumonia. 4. History of esophageal carcinoma, status post chemotherapy and radiation. Most recent EGD showing no masses. 5. Diabetes mellitus type 2. 6. Gastroesophageal reflux disease. 7. Hypertension. 8. History of hyperlipidemia. 9. History of degenerative joint disease. 10.History of carotid stenosis, left. 11.History of gout. 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 13.History of nephrolithiasis. 14.History of gastric cancer. 15.History of appendectomy. 16.History of increased creatinine with chronic kidney disease stage 3. 17.Increased plasma lactic acid. RECOMMENDATIONS AND DISCUSSION: Recommend to continue current medications, continue with monitoring, symptomatic treatment. Otherwise, we will monitor the patient closely. Continue the bronchodilators. Continue the antibiotics. Continue steroids. Continue to monitor blood sugars closely. Continue insulin drip and guarded prognosis because of multiple complex medical issues. Further recommendations to follow. MMODL / IJN: [id number] /
[2018-01-31 18:19] LABS: Glucose,Whole Blood 192 mg/dL (75-99)
[2018-01-31 19:10] LABS: Glucose,Whole Blood 184 mg/dL (75-99)
[2018-01-31] MEDS: PRAVASTATIN SODIUM 80 MG TAB PO SCH (20:04)
[2018-01-31 20:08] LABS: Glucose,Whole Blood 160 mg/dL (75-99)
[2018-01-31] MEDS: MENTHOL (NICE) LOZENGE MUCOUS MEM PRN (20:11)
[2018-01-31 21:10] LABS: Glucose,Whole Blood 160 mg/dL (75-99)
[2018-01-31] MEDS: ZOLPIDEM 10 MG TAB PO PRN (21:28)
[2018-01-31 22:41] LABS: Glucose,Whole Blood 119 mg/dL (75-99)
[2018-01-31 23:20] LABS: Glucose,Whole Blood 125 mg/dL (75-99)
[2018-02-01] MEDS: methylPREDNISolone SOD SUCCI 40 MG/ML 1 ML VIAL IV SCH ×3 (00:13→11:57)
[2018-02-01] MEDS: LORazepam 2 MG/ML INJ IV PRN (00:15)
[2018-02-01 00:16] LABS: Glucose,Whole Blood 240 mg/dL (75-99)
--- NOTE | 2018-02-01 00:21 | PN ---
PROGRESS NOTE DATE OF SERVICE: 01/31/2018. REASON FOR FOLLOWUP VISIT: Pneumonia. INTERVAL HISTORY: The patient is afebrile. She was noted to be sleeping and resting peacefully this afternoon. No nausea or vomiting has been noticed or any diarrhea per the nursing staff. EXAMINATION: Blood pressure is 118/66 with a pulse of 79, temperature 97.5, he is 99% on 45% FiO2. GENERAL DESCRIPTION: An elderly male lying in bed in no distress. RESPIRATORY SYSTEM: Unlabored breathing with decreased breath sounds in the bases. No wheeze. HEART: S1, S2. Regular rate and rhythm. ABDOMEN: Soft, no tenderness. LABS: Hemoglobin 9.8, white count of 9.7. BUN of 37, creatinine 1.10. Blood culture negative. No sputum was provided. DIAGNOSTIC IMPRESSION AND PLAN: Patient with pneumonia with concern for possible gram-negative aspiration. The patient has been recently in the hospital. Plan on keep the patient on cefepime and vanc. Will try to obtain a sputum. his antibiotics. Continue supportive care. MYCHALL / SHAHRIARN: [id number] /
[2018-02-01 01:27] LABS: Glucose,Whole Blood 180 mg/dL (75-99)
[2018-02-01 02:17] LABS: Glucose,Whole Blood 121 mg/dL (75-99)
[2018-02-01 03:28] LABS: Glucose,Whole Blood 167 mg/dL (75-99)
[2018-02-01 04:08] LABS: Glucose,Whole Blood 187 mg/dL (75-99)
[2018-02-01 05:10] LABS: Glucose,Whole Blood 138 mg/dL (75-99)
[2018-02-01 05:39] LABS: Magnesium 2.2 mg/dL (1.6-2.3); Phosphorus 2.9 mg/dL (2.5-4.5)
[2018-02-01 06:24] LABS: Glucose,Whole Blood 169 mg/dL (75-99)
[2018-02-01 06:27] LABS: Calcium 8.6 mg/dL (8.4-10.2); Potassium 4.5 mmol/L (3.5-5.1)
[2018-02-01 06:28] LABS: Anisocytosis Moderate; Basophils % (A) 0 %; Eosinophils % (A) 0 %; HCT 31.3 % (39.0-53.0); HGB 9.9 gm/dL (13.0-17.5); Hypochromasia Slight; Lymphocytes # (A) 0.3 k/uL (1.0-4.8); Lymphocytes % (A) 3 %; MCHC 31.7 g/dL (31.0-37.0); MCV 88.4 fL (80.0-100.0); Mean Platelet Volume 7.7; Monocytes # (A) 0.3 k/uL (0-1.0); Monocytes % (A) 3 %; Neutrophils # (A) 8.3 k/uL (1.3-7.7); Neutrophils % (A) 94 %; Platelet Count 159 k/uL (150-450); RBC 3.54 m/uL (4.30-5.90); WBC 8.8 k/uL (3.8-10.6)
[2018-02-01 07:16] LABS: Glucose,Whole Blood 165 mg/dL (75-99)
--- NOTE | 2018-02-01 08:00 | XR ---
EXAMINATION TYPE: XR chest 1V DATE OF EXAM: 02/01/2018 CLINICAL HISTORY: Difficulty breathing and pneumonia progress study. TECHNIQUE: Single AP portable upright view of the chest is obtained. COMPARISON: Chest x-ray from one day earlier and older studies. CT chest January 10, 2018. FINDINGS: There is underlying cardiomegaly with atherosclerotic and ectatic thoracic aorta causing t dionna deviation. Jugular interstitial change bilaterally persistent left basilar opacity. There is no new focal airspace opacity or pneumothorax seen bilaterally. Osseous structures are intact. IMPRESSION: Overall stable findings, cardiomegaly and chronic parenchymal change or fibrosis bilate rally with patchy left basilar atelectasis and/or infiltrate all redemonstrated. No new infiltrate is seen.
[2018-02-01] MEDS: CEFEPIME 2 GM in SODIUM CHLORIDE 0.9% 50 ML IVPB SCH ×2 (08:08→20:44)
[2018-02-01] MEDS: metFORMIN 500 MG TAB PO SCH ×2 (08:09→17:26)
[2018-02-01] MEDS: POTASSIUM CHLORIDE ER 10 MEQ TAB.ER.PRT PO SCH (08:09)
[2018-02-01] MEDS: HEPARIN SODIUM,PORCINE 5,000 UNIT/ML 1 ML VIAL SQ SCH ×2 (08:09→20:44)
[2018-02-01] MEDS: ASPIRIN 81 MG PO SCH (08:09)
[2018-02-01] MEDS: PANTOPRAZOLE 40 MG TABLET PO SCH ×2 (08:10→17:31)
[2018-02-01] MEDS: ALLOPURINOL 300 MG TAB PO SCH (08:10)
[2018-02-01] MEDS: GABAPENTIN 300 MG CAP PO SCH ×3 (08:10→20:44)
[2018-02-01] MEDS: SODIUM CHLORIDE 0.9% 1,000 ML IV SCH ×2 (08:13→23:09)
[2018-02-01] MEDS: VANCOMYCIN 1,750 MG in SODIUM CHLORIDE 0.9% 500 ML IVPB SCH ×2 (08:13→23:09)
[2018-02-01] MEDS: NYSTATIN 100,000 UNIT/ML SUSP 500,000 UNIT/5 ML CUP PO SCH ×4 (08:13→20:44)
[2018-02-01 08:16] LABS: Glucose,Whole Blood 133 mg/dL (75-99)
[2018-02-01] MEDS: IPRATROPIUM-ALBUTEROL 3 ML NEB INHALATION SCH ×4 (08:30→19:59)
[2018-02-01 09:21] LABS: Glucose,Whole Blood 194 mg/dL (75-99)
[2018-02-01 10:23] LABS: Glucose,Whole Blood 170 mg/dL (75-99)
[2018-02-01 11:53] LABS: Glucose,Whole Blood 135 mg/dL (75-99)
[2018-02-01 13:07] LABS: Glucose,Whole Blood 172 mg/dL (75-99)
[2018-02-01 14:13] LABS: Glucose,Whole Blood 175 mg/dL (75-99)
--- NOTE | 2018-02-01 14:33 | P.PN ---
Subjective Progress Note Date: 02/01/18 82-year-old male patient was in the intensive care unit for an acute on top of chronic hypoxic respiratory failure. The patient was treated for esophageal cancer with chemoradiation therapy and his disease remission based on the most recent PET scan and based on most recent EGD that showed no evidence of any local disease. The patient got transferred to the intensive care because of worsening hypoxemia. The patient is currently on high flow oxygen and the patient is at 45 L/m oxygen to maintain saturation above 90%. On and off he has also utilizes BiPAP. The intensive care unit. IV fluids currently at 20 mL an hour. Chest x-rays showing chronic interstitial changes in lung bases bilaterally. As such the exact cause for the patient's hypoxemia is not clear were going to proceed with a CAT scan of the chest. In terms of blood work, the patient has no significant leukocytosis. The renal function is stable with a creatinine of 1.06 and the rest of the electrolytes is showing a mild component of non-anion gap metabolic acidosis. BNP level is not elevated. The patient is currently on a combination of cefepime and vancomycin. The patient is also receiving IV Solu-Medrol 40 mg every 6 hours. No chest pain. No pleurisy. No hemoptysis. The blood culture from admission was negative. He did not have a good night sleep yesterday and this morning his sleeping comfortably in bed. No altered mentation. Objective - Vital Signs Vital signs: Vital Signs Temp 97.4 F L 02/01/18 12:00 Pulse 60 02/01/18 14:00 Resp 18 02/01/18 14:00 BP 115/60 02/01/18 14:00 Pulse Ox 95 02/01/18 14:00 Intake & Output 01/31/18 02/01/18 02/01/18 18:59 06:59 18:59 Intake Total 2088.912 290.041 9989.473 Output Total 2955 1070 675 Balance -866.088 -430.428 407.473 Weight 89.1 kg Intake: IV 540 320 660 Cefepime 2 gm In Sodium 50 100 Chloride 0.9% 50 ml @ 100 mls/hr IVPB Q12HR [facility] Rx #:[id number] Sodium Chloride 0.9% 1, 240 220 160 000 ml @ 20 mls/hr IV . Q24H [facility] Rx#:[id number] Sodium Phosphate 10 mmol 250 In Sodium Chloride 0.9% 250 ml @ 125 mls/hr IVPB Q2H [facility] Rx#:[id number] Vancomycin 1,750 mg In 500 Sodium Chloride 0.9% 500 ml @ 166.667 mls/hr IVPB Q16H [facility] Rx#:[id number] Intake, IV Titration 828.912 69.572 22.473 Amount Insulin Regular 100 unit 78.912 69.572 22.473 In Sodium Chloride 0.9% 100 ml @ Per Protocol IV .Q0M [facility] Rx#:[id number] Sodium Phosphate 10 mmol 250 In Sodium Chloride 0.9% 250 ml @ 125 mls/hr IVPB Q2H [facility] Rx#:[id number] Vancomycin 1,750 mg In 500 Sodium Chloride 0.9% 500 ml @ 166.667 mls/hr IVPB Q16H [facility] Rx#:[id number] Oral 720 250 400 Output: Urine 2955 1070 675 Other: Voiding Method Indwelling Catheter Indwelling Catheter # Bowel Movements 1 - Exam Appearance the patient is calm and comfortable high flow oxygen at 45 L/m Head exam was generally normal. There was no scleral icterus or corneal arcus. Mucous membranes were moist. Neck was supple and without jugular venous distension, thyromegaly, or carotid bruits. Carotids were easily palpable bilaterally. There was no adenopathy. Lungs sounds are diminished in lung bases bilaterally along with bibasilar crackles Cardiac exam revealed the PMI to be normally situated and sized. The rhythm was regular and no extrasystoles were noted during several minutes of auscultation. The first and second heart sounds were normal and physiologic splitting of the second heart sound was noted. There were no murmurs, rubs, clicks, or gallops. Abdominal exam revealed normal bowel sounds. The abdomen was soft, non-tender, and without masses, organomegaly, or appreciable enlargement of the abdominal aorta. Examination of the extremities revealed easily palpable radial, femoral and pedal pulses. There was no cyanosis, clubbing or edema. Examination of the skin revealed no evidence of significant rashes, suspicious appearing nevi or other concerning lesions. Neurologically awake and alert and is no focal neurological deficits. - Labs CBC & Chem 7: 02/01/18 04:16 02/01/18 04:16 Labs: Abnormal Lab Results - Last 24 Hours (Table) 01/31/18 01/31/18 01/31/18 Range/Units 15:00 16:11 17:14 RBC (4.30-5.90) m/uL Hgb (13.0-17.5) gm/dL Hct (39.0-53.0) % RDW (11.5-15.5) % Neutrophils # (1.3-7.7) k/uL Lymphocytes # (1.0-4.8) k/uL Chloride (98-107) mmol/L Carbon Dioxide (22-30) mmol/L BUN (9-20) mg/dL Glucose (74-99) mg/dL POC Glucose (mg/dL) 233 H 243 H 233 H (75-99) mg/dL 01/31/18 01/31/18 01/31/18 Range/Units 18:17 19:09 20:02 RBC (4.30-5.90) m/uL Hgb (13.0-17.5) gm/dL Hct (39.0-53.0) % RDW (11.5-15.5) % Neutrophils # (1.3-7.7) k/uL Lymphocytes # (1.0-4.8) k/uL Chloride (98-107) mmol/L Carbon Dioxide (22-30) mmol/L BUN (9-20) mg/dL Glucose (74-99) mg/dL POC Glucose (mg/dL) 192 H 184 H 160 H (75-99) mg/dL 01/31/18 01/31/18 01/31/18 Range/Units 21:07 22:39 23:18 RBC (4.30-5.90) m/uL Hgb (13.0-17.5) gm/dL Hct (39.0-53.0) % RDW (11.5-15.5) % Neutrophils # (1.3-7.7) k/uL Lymphocytes # (1.0-4.8) k/uL Chloride (98-107) mmol/L Carbon Dioxide (22-30) mmol/L BUN (9-20) mg/dL Glucose (74-99) mg/dL POC Glucose (mg/dL) 160 H 119 H 125 H (75-99) mg/dL 02/01/18 02/01/18 02/01/18 Range/Units 00:11 01:24 02:14 RBC (4.30-5.90) m/uL Hgb (13.0-17.5) gm/dL Hct (39.0-53.0) % RDW (11.5-15.5) % Neutrophils # (1.3-7.7) k/uL Lymphocytes # (1.0-4.8) k/uL Chloride (98-107) mmol/L Carbon Dioxide (22-30) mmol/L BUN (9-20) mg/dL Glucose (74-99) mg/dL POC Glucose (mg/dL) 240 H 180 H 121 H (75-99) mg/dL 02/01/18 02/01/18 02/01/18 Range/Units 03:22 04:06 04:16 RBC 3.54 L (4.30-5.90) m/uL Hgb 9.9 L (13.0-17.5) gm/dL Hct 31.3 L (39.0-53.0) % RDW 21.0 H (11.5-15.5) % Neutrophils # 8.3 H (1.3-7.7) k/uL Lymphocytes # 0.3 L (1.0-4.8) k/uL Chloride (98-107) mmol/L Carbon Dioxide (22-30) mmol/L BUN (9-20) mg/dL Glucose (74-99) mg/dL POC Glucose (mg/dL) 167 H 187 H (75-99) mg/dL 02/01/18 02/01/18 02/01/18 Range/Units 04:16 05:08 06:21 RBC (4.30-5.90) m/uL Hgb (13.0-17.5) gm/dL Hct (39.0-53.0) % RDW (11.5-15.5) % Neutrophils # (1.3-7.7) k/uL Lymphocytes # (1.0-4.8) k/uL Chloride 113 H (98-107) mmol/L Carbon Dioxide 19 L (22-30) mmol/L BUN 39 H (9-20) mg/dL Glucose 154 H (74-99) mg/dL POC Glucose (mg/dL) 138 H 169 H (75-99) mg/dL 02/01/18 02/01/18 02/01/18 Range/Units 07:14 08:15 09:19 RBC (4.30-5.90) m/uL Hgb (13.0-17.5) gm/dL Hct (39.0-53.0) % RDW (11.5-15.5) % Neutrophils # (1.3-7.7) k/uL Lymphocytes # (1.0-4.8) k/uL Chloride (98-107) mmol/L Carbon Dioxide (22-30) mmol/L BUN (9-20) mg/dL Glucose (74-99) mg/dL POC Glucose (mg/dL) 165 H 133 H 194 H (75-99) mg/dL 02/01/18 02/01/18 02/01/18 Range/Units 10:20 11:52 13:06 RBC (4.30-5.90) m/uL Hgb (13.0-17.5) gm/dL Hct (39.0-53.0) % RDW (11.5-15.5) % Neutrophils # (1.3-7.7) k/uL Lymphocytes # (1.0-4.8) k/uL Chloride (98-107) mmol/L Carbon Dioxide (22-30) mmol/L BUN (9-20) mg/dL Glucose (74-99) mg/dL POC Glucose (mg/dL) 170 H 135 H 172 H (75-99) mg/dL 02/01/18 Range/Units 14:10 RBC (4.30-5.90) m/uL Hgb (13.0-17.5) gm/dL Hct (39.0-53.0) % RDW (11.5-15.5) % Neutrophils # (1.3-7.7) k/uL Lymphocytes # (1.0-4.8) k/uL Chloride (98-107) mmol/L Carbon Dioxide (22-30) mmol/L BUN (9-20) mg/dL Glucose (74-99) mg/dL POC Glucose (mg/dL) 175 H (75-99) mg/dL Microbiology - Last 24 Hours (Table) 01/26/18 13:26 Blood Culture - Preliminary Blood No Growth after 120 hours Assessment and Plan Plan: Assessment 1 acute hypoxic history failure with significant worsening in the oxygenation and development of chronic interstitial changes in lung bases bilaterally. Exact cause for the acute hypoxic respiratory failure is not clear. No clear evidence of pneumonia. No clear evidence of any pulmonary edema. No evidence of any pulmonary embolism. This is to be further investigated. I think is reasonable to proceed with a CT angios the chest in that regard 2 previous history of radiation pneumonitis currently on oral prednisone on outpatient basis currently on IV Solu-Medrol 3 esophagus adenocarcinoma, details discussed above, currently in remission and the most recent PET scan and the EGD showed no evidence of any disease process 4 diabetes mellitus 5 hypertension 6 hyperlipidemia 7 peripheral neuropathy 8 carotid artery disease with complete occlusion of the left carotid artery 9 shingles 10 osteoarthritis Plan Continue the same treatment and the patient will be getting a CT angios the chest. We'll make further recommendations based on the CAT scan of the chest. Continued same antibiotics. Continue IV Solu Medrol. We'll follow.
--- NOTE | 2018-02-01 15:07 | CT ---
CT CHEST FOR PULMONARY EMBOLISM. EXAMINATION TYPE: CT angio chest DATE OF EXAM: 02/01/2018 INDICATION: Hypoxia. CT DLP: 480.3 mGycm, Automated exposure control for dose reduction was used. CONTRAST: Patient injected with 78 mL of Isovue 370. COMPARISON: 01/10/2018 TECHNIQUE: CT of the chest is performed on a spiral scan at 2 mm thick sections. Study is performed with intravenous contrast timed for evaluation for pulmonary embolism. This will limit additional po rtions of the evaluation. 3-D MIP images reconstructed by the technologist are reviewed on the compu ter in the coronal and sagittal planes. FINDINGS: No persistent filling defects are evident to suggest an acute pulmonary embolism. No mediastinal or hilar adenopathy enlarged by CT criteria is evident. The heart size is prominent. The ascending aorta diameter at the level of the main pulmonary artery is 4.2 cm. The main pulmonary artery diameter at the bifurcation is 3.1 cm. Small bilateral pleural effusions are present. Some compressive atelectasis is adjacent. Groundglass opacities are through the mid and upper lung nogueira could be some pulmonary edema. Pulmonary fibrosis appears to be present at the lung bases. Limited CT section through the upper abdomen are unremarkable. IMPRESSIONS: 1. No acute pulmonary embolism. 2. Small bilateral pleural effusions. 3. Some minimal pulmonary edema is not excluded. Mild compressive atelectasis is adjacent to the pleu ral effusions. 4. Ascending thoracic aortic aneurysm of 4.2 cm at the main pulmonary artery.
--- NOTE | 2018-02-01 15:15 | P.PN ---
Subjective Progress Note Date: 02/01/18 Principal diagnosis: Difficulty in breathing, septic shock Pt seen in f/u, he is on high flow O2, resting comfortably as he did not sleep all night, is at bedside, VSS on monitor Objective - Vital Signs Vital signs: Vital Signs Temp 97.4 F L 02/01/18 12:00 Pulse 60 02/01/18 14:00 Resp 18 02/01/18 14:00 BP 115/60 02/01/18 14:00 Pulse Ox 95 02/01/18 14:00 Intake & Output 01/31/18 02/01/18 02/01/18 18:59 06:59 18:59 Intake Total 2088.912 563.911 7263.473 Output Total 2955 1070 675 Balance -866.088 -430.428 407.473 Weight 89.1 kg Intake: IV 540 320 660 Cefepime 2 gm In Sodium 50 100 Chloride 0.9% 50 ml @ 100 mls/hr IVPB Q12HR [facility] Rx #:[id number] Sodium Chloride 0.9% 1, 240 220 160 000 ml @ 20 mls/hr IV . Q24H [facility] Rx#:[id number] Sodium Phosphate 10 mmol 250 In Sodium Chloride 0.9% 250 ml @ 125 mls/hr IVPB Q2H [facility] Rx#:[id number] Vancomycin 1,750 mg In 500 Sodium Chloride 0.9% 500 ml @ 166.667 mls/hr IVPB Q16H [facility] Rx#:[id number] Intake, IV Titration 828.912 69.572 22.473 Amount Insulin Regular 100 unit 78.912 69.572 22.473 In Sodium Chloride 0.9% 100 ml @ Per Protocol IV .Q0M [facility] Rx#:[id number] Sodium Phosphate 10 mmol 250 In Sodium Chloride 0.9% 250 ml @ 125 mls/hr IVPB Q2H [facility] Rx#:[id number] Vancomycin 1,750 mg In 500 Sodium Chloride 0.9% 500 ml @ 166.667 mls/hr IVPB Q16H [facility] Rx#:[id number] Oral 720 250 400 Output: Urine 2955 1070 675 Other: Voiding Method Indwelling Catheter Indwelling Catheter Indwelling Catheter # Bowel Movements 1 - Exam Pt laying in semi-fowlers position, respirations are shallow but unlabored, NAD. - Labs CBC & Chem 7: 02/01/18 04:16 02/01/18 04:16 Labs: Abnormal Lab Results - Last 24 Hours (Table) 01/31/18 01/31/18 01/31/18 Range/Units 16:11 17:14 18:17 RBC (4.30-5.90) m/uL Hgb (13.0-17.5) gm/dL Hct (39.0-53.0) % RDW (11.5-15.5) % Neutrophils # (1.3-7.7) k/uL Lymphocytes # (1.0-4.8) k/uL Chloride (98-107) mmol/L Carbon Dioxide (22-30) mmol/L BUN (9-20) mg/dL Glucose (74-99) mg/dL POC Glucose (mg/dL) 243 H 233 H 192 H (75-99) mg/dL 01/31/18 01/31/18 01/31/18 Range/Units 19:09 20:02 21:07 RBC (4.30-5.90) m/uL Hgb (13.0-17.5) gm/dL Hct (39.0-53.0) % RDW (11.5-15.5) % Neutrophils # (1.3-7.7) k/uL Lymphocytes # (1.0-4.8) k/uL Chloride (98-107) mmol/L Carbon Dioxide (22-30) mmol/L BUN (9-20) mg/dL Glucose (74-99) mg/dL POC Glucose (mg/dL) 184 H 160 H 160 H (75-99) mg/dL 01/31/18 01/31/18 02/01/18 Range/Units 22:39 23:18 00:11 RBC (4.30-5.90) m/uL Hgb (13.0-17.5) gm/dL Hct (39.0-53.0) % RDW (11.5-15.5) % Neutrophils # (1.3-7.7) k/uL Lymphocytes # (1.0-4.8) k/uL Chloride (98-107) mmol/L Carbon Dioxide (22-30) mmol/L BUN (9-20) mg/dL Glucose (74-99) mg/dL POC Glucose (mg/dL) 119 H 125 H 240 H (75-99) mg/dL 02/01/18 02/01/18 02/01/18 Range/Units 01:24 02:14 03:22 RBC (4.30-5.90) m/uL Hgb (13.0-17.5) gm/dL Hct (39.0-53.0) % RDW (11.5-15.5) % Neutrophils # (1.3-7.7) k/uL Lymphocytes # (1.0-4.8) k/uL Chloride (98-107) mmol/L Carbon Dioxide (22-30) mmol/L BUN (9-20) mg/dL Glucose (74-99) mg/dL POC Glucose (mg/dL) 180 H 121 H 167 H (75-99) mg/dL 02/01/18 02/01/18 02/01/18 Range/Units 04:06 04:16 04:16 RBC 3.54 L (4.30-5.90) m/uL Hgb 9.9 L (13.0-17.5) gm/dL Hct 31.3 L (39.0-53.0) % RDW 21.0 H (11.5-15.5) % Neutrophils # 8.3 H (1.3-7.7) k/uL Lymphocytes # 0.3 L (1.0-4.8) k/uL Chloride 113 H (98-107) mmol/L Carbon Dioxide 19 L (22-30) mmol/L BUN 39 H (9-20) mg/dL Glucose 154 H (74-99) mg/dL POC Glucose (mg/dL) 187 H (75-99) mg/dL 02/01/18 02/01/18 02/01/18 Range/Units 05:08 06:21 07:14 RBC (4.30-5.90) m/uL Hgb (13.0-17.5) gm/dL Hct (39.0-53.0) % RDW (11.5-15.5) % Neutrophils # (1.3-7.7) k/uL Lymphocytes # (1.0-4.8) k/uL Chloride (98-107) mmol/L Carbon Dioxide (22-30) mmol/L BUN (9-20) mg/dL Glucose (74-99) mg/dL POC Glucose (mg/dL) 138 H 169 H 165 H (75-99) mg/dL 02/01/18 02/01/18 02/01/18 Range/Units 08:15 09:19 10:20 RBC (4.30-5.90) m/uL Hgb (13.0-17.5) gm/dL Hct (39.0-53.0) % RDW (11.5-15.5) % Neutrophils # (1.3-7.7) k/uL Lymphocytes # (1.0-4.8) k/uL Chloride (98-107) mmol/L Carbon Dioxide (22-30) mmol/L BUN (9-20) mg/dL Glucose (74-99) mg/dL POC Glucose (mg/dL) 133 H 194 H 170 H (75-99) mg/dL 02/01/18 02/01/18 02/01/18 Range/Units 11:52 13:06 14:10 RBC (4.30-5.90) m/uL Hgb (13.0-17.5) gm/dL Hct (39.0-53.0) % RDW (11.5-15.5) % Neutrophils # (1.3-7.7) k/uL Lymphocytes # (1.0-4.8) k/uL Chloride (98-107) mmol/L Carbon Dioxide (22-30) mmol/L BUN (9-20) mg/dL Glucose (74-99) mg/dL POC Glucose (mg/dL) 135 H 172 H 175 H (75-99) mg/dL Microbiology - Last 24 Hours (Table) 01/26/18 13:26 Blood Culture - Preliminary Blood No Growth after 120 hours Assessment and Plan (1) Adenocarcinoma of esophagus, stage 3 Narrative/Plan: Pt is s/p concurrent chemo/XRT with recent EGD on 01/13, biopsy neg for recurrent malignancy. Patient will continue on follow-up for malignancy as scheduled. CBC reviewed, continues to be stable, no intervention today. Current Visit: No Status: Chronic Priority: Medium Code(s): C15.9 - MALIGNANT NEOPLASM OF ESOPHAGUS, UNSPECIFIED SNOMED Code(s): 003481942 Plan: Cont care per [employer].
[2018-02-01 15:22] LABS: Glucose,Whole Blood 147 mg/dL (75-99)
[2018-02-01 16:13] LABS: Glucose,Whole Blood 197 mg/dL (75-99)
[2018-02-01] MEDS: INSULIN REGULAR 100 UNIT in SODIUM CHLORIDE 0.9% 100 ML IV SCH (16:13)
[2018-02-01] MEDS ORDERED: FUROSEMIDE 10 MG/ML 4 ML VIAL IV STA (16:18)
[2018-02-01] MEDS: methylPREDNISolone SOD SUCCI 125 MG/2 ML VIAL IV SCH ×2 (17:26→23:08)
[2018-02-01 17:34] LABS: Glucose,Whole Blood 229 mg/dL (75-99)
[2018-02-01 18:58] LABS: Glucose,Whole Blood 294 mg/dL (75-99)
[2018-02-01 20:11] LABS: Glucose,Whole Blood 232 mg/dL (75-99)
[2018-02-01] MEDS: PRAVASTATIN SODIUM 80 MG TAB PO SCH (20:44)
[2018-02-01] MEDS: ZOLPIDEM 10 MG TAB PO PRN (20:57)
[2018-02-01 21:19] LABS: Glucose,Whole Blood 190 mg/dL (75-99)
[2018-02-01 22:12] LABS: Glucose,Whole Blood 200 mg/dL (75-99)
[2018-02-01 23:06] LABS: Glucose,Whole Blood 176 mg/dL (75-99)
[2018-02-02 00:16] LABS: Glucose,Whole Blood 136 mg/dL (75-99)
[2018-02-02 01:17] LABS: Glucose,Whole Blood 180 mg/dL (75-99)
[2018-02-02] MEDS: LORazepam 2 MG/ML INJ IV PRN ×2 (01:19→23:40)
[2018-02-02 02:09] LABS: Glucose,Whole Blood 198 mg/dL (75-99)
[2018-02-02 03:18] LABS: Glucose,Whole Blood 166 mg/dL (75-99)
[2018-02-02 04:50] LABS: Anisocytosis Moderate; Basophils % (A) 0 %; Eosinophils % (A) 0 %; HCT 31.7 % (39.0-53.0); Hypochromasia Slight; Lymphocytes # (A) 0.3 k/uL (1.0-4.8); Lymphocytes % (A) 4 %; MCH 27.9 pg (25.0-35.0); MCHC 31.4 g/dL (31.0-37.0); MCV 88.8 fL (80.0-100.0); Mean Platelet Volume 7.3; Monocytes # (A) 0.3 k/uL (0-1.0); Monocytes % (A) 4 %; Neutrophils # (A) 6.7 k/uL (1.3-7.7); Neutrophils % (A) 91 %; Platelet Count 153 k/uL (150-450); RBC 3.57 m/uL (4.30-5.90); WBC 7.4 k/uL (3.8-10.6)
[2018-02-02 04:57] LABS: Anion Gap 6 mmol/L; Blood Urea Nitrogen 36 mg/dL (9-20); Calcium 8.3 mg/dL (8.4-10.2); Carbon Dioxide 22 mmol/L (22-30); Chloride 112 mmol/L (98-107); Glucose 135 mg/dL (74-99); Magnesium 2.1 mg/dL (1.6-2.3); Potassium 3.9 mmol/L (3.5-5.1); Sodium 140 mmol/L (137-145)
[2018-02-02 05:01] LABS: Glucose,Whole Blood 162 mg/dL (75-99)
[2018-02-02] MEDS: methylPREDNISolone SOD SUCCI 125 MG/2 ML VIAL IV SCH ×4 (05:01→23:38)
[2018-02-02 06:57] LABS: Glucose,Whole Blood 112 mg/dL (75-99)
--- NOTE | 2018-02-02 07:47 | PN ---
PROGRESS NOTE DATE OF SERVICE: 02/01/2018. This 82-year-old gentleman admitted with bilateral pneumonia also had some continued respiratory difficulty. The patient is using BiPAP at night. The patient is being evaluated by pulmonology and as well as Infectious Disease. No evidence of acute pulmonary embolism was noted an the chest CTA ordered today. The patient is being closely monitored at this time. Ascending aortic aneurysm 4.2 cm was noted. There is no history of fever, rigors or chills. PAST MEDICAL HISTORY: Reviewed. REVIEW OF SYSTEMS: Cardio system: As mentioned. Respiration: As mentioned earlier. GI as mentioned. : No dysuria. Central nervous system: As mentioned earlier. CURRENT MEDICATIONS ARE: Reviewed include: 1. Tylenol 600 mg t.i.d. 2. DuoNeb q.i.d. and p.r.n. 3. Zyloprim 300 mg daily. 4. Aspirin 81 mg. 5. Cefepime 2 g IV b.i.d. 6. Neurontin. 7. Heparin. 8. Ativan. 9. Glucophage. 10.Solu-Medrol 60 IV q.6h. 11.Replacement protocol. 12.Nitrostat. 13.Protonix. 14.K-Dur. 15.Pravachol. 16.Vancomycin. PHYSICAL EXAM: Patient is alert, oriented x3. Pulse 79, blood pressure 120/70, respiration 20, temperature normal. Pulse ox 98 percent on 34% FIO2. HEENT: Conjunctivae normal. Oral mucosa moist. Neck is no jugular venous distention. No carotid bruit. No lymph node enlargement. Cardiovascular: S1, S2. Respiratory: Breath sounds diminished in the bases. Bilateral scattered rhonchi and crackles. ABDOMEN: Soft, nontender. Legs are no edema, no swelling. Central nervous system: No focal deficits. LABS: WBC 8.2, hemoglobin 9.9 and glucose noted. CO2 is 19. ASSESSMENT: 1. Bilateral pneumonia possibly gram-negative with severe sepsis and septic shock with acute hypoxic respiratory failure on BiPAP. 2. Hypotension possibly secondary to sepsis. 3. Possible aspiration pneumonia. 4. History of esophageal carcinoma status post radiation chemotherapy most recent EGD showing no masses. 5. Possible element of radiation pneumonitis. 6. Diabetes type 2. 7. Gastroesophageal reflux disease. 8. Hypertension. 9. Hyperlipidemia. 10.History of degenerative joint disease. 11.History of carotid stenosis left. 12.History of gout. 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 14.History of nephrolithiasis. 15.History of gastric cancer. 16.History of appendectomy. 17.Increased creatinine with chronic kidney stage 3. 18.Increased plasma lactic acid. RECOMMENDATIONS AND DISCUSSION: Recommend to continue current medications, management and repeat labs. Continue the bronchodilators. Continue the antibiotics and steroids. Closely follow with multiple consultants. Prognosis guarded. Continue the BiPAP on a p.r.n. basis. Further recommendations to follow. MMODL / IJN: [id number] /
--- NOTE | 2018-02-02 07:56 | PN ---
PROGRESS NOTE DATE OF SERVICE: 02/01/2018 REASON FOR FOLLOWUP: Pneumonia. INTERVAL HISTORY: The patient is afebrile. He seemed to be breathing comfortably. He did have some cough but not bringing up any sputum. No nausea or vomiting has been noticed or any diarrhea. PHYSICAL EXAMINATION: Blood pressure 117/58 with a pulse of 89, temperature of 98. He is 98% on high-flow nasal oxygen. General description is an elderly male lying in bed in no distress. RESPIRATORY SYSTEM: Unlabored breathing with decreased breath sounds at the bases. No wheeze. HEART: S1, S2. Regular rate and rhythm. ABDOMEN: Soft, no tenderness. EXTREMITIES: No edema of the feet. LABS: Hemoglobin 9.9, white count 8.8 with a BUN of 39, creatinine 1.06. Blood culture has been negative. No sputum has been collected. DIAGNOSTIC IMPRESSION AND PLAN: Patient admitted to the hospital with difficulty in breathing, which is likely multifactorial in this patient with a component of pneumonia. Currently covered with cefepime and vancomycin that will continue. Will try to obtain a sputum to narrow down his antibiotics. Watching his kidney function closely. was present at bedside. Questions were answered. MMODL / IJN: [id number] /
[2018-02-02 08:14] LABS: Glucose,Whole Blood 167 mg/dL (75-99)
[2018-02-02] MEDS ORDERED: VANCOMYCIN 1,500 MG in SODIUM CHLORIDE 0.9% 250 ML IVPB SCH (09:00)
--- NOTE | 2018-02-02 09:25 | P.PN ---
Subjective Progress Note Date: 02/02/18 82-year-old male patient was in the intensive care unit for an acute on top of chronic hypoxic respiratory failure. The patient was treated for esophageal cancer with chemoradiation therapy and his disease remission based on the most recent PET scan and based on most recent EGD that showed no evidence of any local disease. The patient got transferred to the intensive care because of worsening hypoxemia. The patient is currently on high flow oxygen and the patient is at 45 L/m oxygen to maintain saturation above 90%. On and off he has also utilizes BiPAP. The intensive care unit. IV fluids currently at 20 mL an hour. Chest x-rays showing chronic interstitial changes in lung bases bilaterally. As such the exact cause for the patient's hypoxemia is not clear were going to proceed with a CAT scan of the chest. In terms of blood work, the patient has no significant leukocytosis. The renal function is stable with a creatinine of 1.06 and the rest of the electrolytes is showing a mild component of non-anion gap metabolic acidosis. BNP level is not elevated. The patient is currently on a combination of cefepime and vancomycin. The patient is also receiving IV Solu-Medrol 40 mg every 6 hours. No chest pain. No pleurisy. No hemoptysis. The blood culture from admission was negative. He did not have a good night sleep yesterday and this morning his sleeping comfortably in bed. No altered mentation. On today's evaluation of 02/02/2018 and seeing this patient for a follow-up. The patient is an acute hypoxic arrest 30 failure and this is an acute on top of chronic hypoxic arrest 30 failure. I repeated the CAT scan of the chest and it showed bilateral groundglass pulmonary infiltrates in addition to fibrotic changes in lung bases. He has coarse crackles in the mid and the lower lung nogueira bilaterally. As such, the acute exacerbation is probably related to an acute infectious process or an acute lung injury/ARDS pattern that caused significant hypoxemia requiring high flow oxygen. I have him on high flow oxygen initially at 45% yesterday and gradually wean down to 31 percent today. He is maintaining a saturation above 95% and when the process of weaning his FiO2 further. He did get a dose of Lasix yesterday. I increased his IV Solu Medrol to 60 mg every 6 hours. He has no significant sputum production. No chest pain. He is not having any shortness of breath at rest however he is quite weak and he gets worked up and short of breath while trying to get out of bed. His cardiac rhythm is sinus. No aspiration. A recent EGD showed no evidence of any tracheoesophageal fistula or any local recurrence within his esophagus. Note that he does not take any form of systemic chemotherapy and he has completed radiation therapy back in August 2017. As such, the acute exacerbation and the diffuse groundglass pulmonary infiltrates that we are seeing remains of an unknown cause to me at this point in time although infectious agents need to be considered still. The patient remains on a combination of cefepime and vancomycin. ID is on the case. No fever. Cultures of been all negative for now. He is producing adequate amount of urine output. He remains on bronchodilators [id number]. No other significant events overnight. Objective - Vital Signs Vital signs: Vital Signs Temp 97.4 F L 02/02/18 08:00 Pulse 95 02/02/18 09:00 Resp 27 H 02/02/18 09:00 BP 121/63 02/02/18 09:00 Pulse Ox 99 02/02/18 09:00 Intake & Output 02/01/18 02/02/18 02/02/18 18:59 06:59 18:59 Intake Total 1656.462 933.982 740 Output Total 1235 1675 260 Balance 421.462 -741.018 480 Weight 90.9 kg Intake: IV 740 876.68 40 Cefepime 2 gm In Sodium 50 Chloride 0.9% 50 ml @ 100 mls/hr IVPB Q12HR [facility] Rx #:[id number] Sodium Chloride 0.9% 1, 240 160 40 000 ml @ 20 mls/hr IV . Q24H [facility] Rx#:[id number] Vancomycin 1,750 mg In 500 666.68 Sodium Chloride 0.9% 500 ml @ 166.667 mls/hr IVPB Q16H [facility] Rx#:[id number] Intake, IV Titration 36.462 57.302 0 Amount Insulin Regular 100 unit 36.462 57.302 0 In Sodium Chloride 0.9% 100 ml @ Per Protocol IV .Q0M [facility] Rx#:[id number] Oral 880 700 Output: Urine 1235 1675 260 Other: Voiding Method Indwelling Catheter Indwelling Catheter # Bowel Movements 1 - Exam Appearance the patient is calm and comfortable high flow oxygen at 45 L/m Head exam was generally normal. There was no scleral icterus or corneal arcus. Mucous membranes were moist. Neck was supple and without jugular venous distension, thyromegaly, or carotid bruits. Carotids were easily palpable bilaterally. There was no adenopathy. Lungs sounds are diminished in lung bases bilaterally along with bibasilar crackles and the patient has coarse crackles in the mid and lower lung nogueira bilaterally. Cardiac exam revealed the PMI to be normally situated and sized. The rhythm was regular and no extrasystoles were noted during several minutes of auscultation. The first and second heart sounds were normal and physiologic splitting of the second heart sound was noted. There were no murmurs, rubs, clicks, or gallops. Abdominal exam revealed normal bowel sounds. The abdomen was soft, non-tender, and without masses, organomegaly, or appreciable enlargement of the abdominal aorta. Examination of the extremities revealed easily palpable radial, femoral and pedal pulses. There was no cyanosis, clubbing or edema. Examination of the skin revealed no evidence of significant rashes, suspicious appearing nevi or other concerning lesions. Neurologically awake and alert and is no focal neurological deficits. - Labs CBC & Chem 7: 02/02/18 04:25 02/02/18 04:25 Labs: Abnormal Lab Results - Last 24 Hours (Table) 02/01/18 02/01/18 02/01/18 Range/Units 09:19 10:20 11:52 RBC (4.30-5.90) m/uL Hgb (13.0-17.5) gm/dL Hct (39.0-53.0) % RDW (11.5-15.5) % Lymphocytes # (1.0-4.8) k/uL Chloride (98-107) mmol/L BUN (9-20) mg/dL Glucose (74-99) mg/dL POC Glucose (mg/dL) 194 H 170 H 135 H (75-99) mg/dL Calcium (8.4-10.2) mg/dL 02/01/18 02/01/18 02/01/18 Range/Units 13:06 14:10 15:20 RBC (4.30-5.90) m/uL Hgb (13.0-17.5) gm/dL Hct (39.0-53.0) % RDW (11.5-15.5) % Lymphocytes # (1.0-4.8) k/uL Chloride (98-107) mmol/L BUN (9-20) mg/dL Glucose (74-99) mg/dL POC Glucose (mg/dL) 172 H 175 H 147 H (75-99) mg/dL Calcium (8.4-10.2) mg/dL 02/01/18 02/01/18 02/01/18 Range/Units 16:12 17:33 18:55 RBC (4.30-5.90) m/uL Hgb (13.0-17.5) gm/dL Hct (39.0-53.0) % RDW (11.5-15.5) % Lymphocytes # (1.0-4.8) k/uL Chloride (98-107) mmol/L BUN (9-20) mg/dL Glucose (74-99) mg/dL POC Glucose (mg/dL) 197 H 229 H 294 H (75-99) mg/dL Calcium (8.4-10.2) mg/dL 02/01/18 02/01/18 02/01/18 Range/Units 20:09 21:17 22:10 RBC (4.30-5.90) m/uL Hgb (13.0-17.5) gm/dL Hct (39.0-53.0) % RDW (11.5-15.5) % Lymphocytes # (1.0-4.8) k/uL Chloride (98-107) mmol/L BUN (9-20) mg/dL Glucose (74-99) mg/dL POC Glucose (mg/dL) 232 H 190 H 200 H (75-99) mg/dL Calcium (8.4-10.2) mg/dL 02/01/18 02/02/18 02/02/18 Range/Units 23:04 00:15 01:15 RBC (4.30-5.90) m/uL Hgb (13.0-17.5) gm/dL Hct (39.0-53.0) % RDW (11.5-15.5) % Lymphocytes # (1.0-4.8) k/uL Chloride (98-107) mmol/L BUN (9-20) mg/dL Glucose (74-99) mg/dL POC Glucose (mg/dL) 176 H 136 H 180 H (75-99) mg/dL Calcium (8.4-10.2) mg/dL 02/02/18 02/02/18 02/02/18 Range/Units 02:08 03:16 04:25 RBC 3.57 L (4.30-5.90) m/uL Hgb 10.0 L (13.0-17.5) gm/dL Hct 31.7 L (39.0-53.0) % RDW 21.0 H (11.5-15.5) % Lymphocytes # 0.3 L (1.0-4.8) k/uL Chloride (98-107) mmol/L BUN (9-20) mg/dL Glucose (74-99) mg/dL POC Glucose (mg/dL) 198 H 166 H (75-99) mg/dL Calcium (8.4-10.2) mg/dL 02/02/18 02/02/18 02/02/18 Range/Units 04:25 04:59 06:56 RBC (4.30-5.90) m/uL Hgb (13.0-17.5) gm/dL Hct (39.0-53.0) % RDW (11.5-15.5) % Lymphocytes # (1.0-4.8) k/uL Chloride 112 H (98-107) mmol/L BUN 36 H (9-20) mg/dL Glucose 135 H (74-99) mg/dL POC Glucose (mg/dL) 162 H 112 H (75-99) mg/dL Calcium 8.3 L (8.4-10.2) mg/dL 02/02/18 Range/Units 08:12 RBC (4.30-5.90) m/uL Hgb (13.0-17.5) gm/dL Hct (39.0-53.0) % RDW (11.5-15.5) % Lymphocytes # (1.0-4.8) k/uL Chloride (98-107) mmol/L BUN (9-20) mg/dL Glucose (74-99) mg/dL POC Glucose (mg/dL) 167 H (75-99) mg/dL Calcium (8.4-10.2) mg/dL Microbiology - Last 24 Hours (Table) 01/26/18 13:26 Blood Culture - Final Blood No Growth after 144 hours Assessment and Plan Plan: Assessment 1 acute on top of chronic hypoxic history failure with significant worsening in the oxygenation and development of chronic interstitial changes in lung bases bilaterally. Exact cause for the acute hypoxic respiratory failure is not clear. Computed tomography scan of the chest was done yesterday and showed no evidence of any pulmonary embolism. There is diffuse bilateral groundglass changes in addition to fibrotic changes in lung bases. Rule out acute exacerbation of pulmonate fibrosis. Rule out superinfection either with atypical microorganisms or viruses. Drug induced ILD is felt to be less likely. Radiation-induced LV is felt to be less likely. The pattern can also represent an acute lung injury/ARDS picture, exact cause is not clear. Patient is on steroids. The patient is on high flow oxygen. Patient is hemodynamic is stable. The patient is afebrile. Fortunately the patient is showing some signs of improvement and is currently down to 31% FiO2 high flow through nasal cannula. 2 previous history of radiation pneumonitis currently on oral prednisone on outpatient basis currently on IV Solu-Medrol 3 esophagus adenocarcinoma, details discussed above, currently in remission and the most recent PET scan and the EGD showed no evidence of any disease process 4 diabetes mellitus 5 hypertension 6 hyperlipidemia 7 peripheral neuropathy 8 carotid artery disease with complete occlusion of the left carotid artery 9 shingles 10 osteoarthritis Plan Unable to do a bronchoscope based on his high oxygen requirements. We'll provide an incentive spirometer. Continue weaning down the FiO2. Continued IV Solu-Medrol. Give 40 mg of IV Lasix to keep the patient negative fluid balance. Continue same antibiotic coverage. Check Legionella urine antigen. Check ANNA, sed rate, P and C ANCA considering any vasculitic or recurrent incisional disease related disorder. We'll continue to follow.
[2018-02-02] MEDS: CEFEPIME 2 GM in SODIUM CHLORIDE 0.9% 50 ML IVPB SCH ×2 (09:27→20:41)
[2018-02-02] MEDS: metFORMIN 500 MG TAB PO SCH ×2 (09:29→16:46)
[2018-02-02] MEDS: ASPIRIN 81 MG PO SCH (09:29)
[2018-02-02] MEDS: NYSTATIN 100,000 UNIT/ML SUSP 500,000 UNIT/5 ML CUP PO SCH ×4 (09:30→21:04)
[2018-02-02] MEDS: PANTOPRAZOLE 40 MG TABLET PO SCH ×2 (09:30→16:47)
[2018-02-02] MEDS: HEPARIN SODIUM,PORCINE 5,000 UNIT/ML 1 ML VIAL SQ SCH ×2 (09:30→21:04)
[2018-02-02] MEDS: IPRATROPIUM-ALBUTEROL 3 ML NEB INHALATION SCH ×4 (09:30→19:57)
[2018-02-02] MEDS: POTASSIUM CHLORIDE ER 10 MEQ TAB.ER.PRT PO SCH (09:30)
[2018-02-02] MEDS: ALLOPURINOL 300 MG TAB PO SCH (09:34)
[2018-02-02] MEDS: GABAPENTIN 300 MG CAP PO SCH ×3 (09:35→21:04)
[2018-02-02] MEDS ORDERED: FUROSEMIDE 10 MG/ML 4 ML VIAL IV STA (10:14)
[2018-02-02 12:17] LABS: Glucose,Whole Blood 202 mg/dL (75-99)
[2018-02-02 12:17] LABS: Glucose,Whole Blood 253 mg/dL (75-99)
[2018-02-02 12:17] LABS: Glucose,Whole Blood 268 mg/dL (75-99)
[2018-02-02 12:17] LABS: Glucose,Whole Blood 335 mg/dL (75-99)
[2018-02-02 13:38] LABS: Glucose,Whole Blood 174 mg/dL (75-99)
[2018-02-02 15:06] LABS: Glucose,Whole Blood 220 mg/dL (75-99)
[2018-02-02] MEDS: INSULIN REGULAR 100 UNIT in SODIUM CHLORIDE 0.9% 100 ML IV SCH (16:35)
[2018-02-02 16:36] LABS: Glucose,Whole Blood 236 mg/dL (75-99)
[2018-02-02] MEDS: VANCOMYCIN 1,750 MG in SODIUM CHLORIDE 0.9% 500 ML IVPB SCH (16:46)
[2018-02-02 18:06] LABS: Glucose,Whole Blood 264 mg/dL (75-99)
--- NOTE | 2018-02-02 18:11 | PN ---
PROGRESS NOTE DATE OF SERVICE: 02/02/2018 This 82-year-old gentleman who was admitted with significant pneumonia also had significant history of hypoxia. The patient hypotensive. The patient was also suspected of post aspiration pneumonia; however, there was no residual effect of esophageal carcinoma. At this time, the patient is closely monitored. The patient is still on high-flow oxygen. Dr. Brown is following the patient closely. CT is negative for any pulmonary embolism. Patient is not a candidate for bronchoscopy currently. Legionella antigen has been sent. PAST MEDICAL HISTORY: Reviewed. REVIEW OF SYSTEMS: CARDIOVASCULAR: No angina. RESPIRATORY: As mentioned earlier. GI: As mentioned earlier. : No dysuria. CURRENT MEDICATIONS: Reviewed, include: 1. Tylenol 500 mg every 6 hours p.r.n. 2. DuoNeb q.i.d. p.r.n. 3. Zyloprim 300 mg daily. 4. Aspirin 81 mg a day. 5. Cefepime 2 g IV q.8h. 6. Neurontin 1200 mg q.h.s. 7. Heparin subcu b.i.d. 8. Insulin drip. 9. Ativan. 10.Glucophage. 11.Narcan. 12.Nitrostat. 13.Protonix. 14.K-Dur. 15.Pravastatin. 16.P.r.n. medications. PHYSICAL EXAM: Patient is alert, oriented x3. Pulse 100, blood pressure is 140/74, respirations 20, temperature 97.1, pulse ox 97% on 10L. HEENT: Conjunctivae normal. Oral mucosa moist. NECK: No jugular venous distention. No carotid bruits. No lymph node enlargement. CARDIOVASCULAR: S1, S2 muffled. RESPIRATORY: Breath sounds diminished in the bases. Bilateral scattered rhonchi and crackles. ABDOMEN: Soft, obese, nontender. LEGS: No edema. NERVOUS SYSTEM: Nonfocal. LABS: WBC 7, hemoglobin is 10. Sodium 140, potassium 3.9. ASSESSMENT: 1. Bilateral pneumonia, possibly gram-negative with severe sepsis and septic shock with acute hypoxic respiratory failure on BiPAP. 2. Hypotension, possibly secondary to sepsis. 3. Possible aspiration pneumonia. 4. Esophageal carcinoma, status post radiation, chemotherapy. Most recent esophagogastroduodenoscopy showing no masses. 5. Possible element of radiation pneumonitis. 6. Diabetes mellitus type 2. 7. Gastroesophageal reflux disease. 8. Hypertension. 9. Hyperlipidemia. 10.History of degenerative joint disease. 11.History of carotid stenosis, left. 12.History of gout. 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 14.History of nephrolithiasis. 15.History of gastric cancer. 16.History of appendectomy. 17.Increased creatinine with chronic kidney, stage 3. 18.Increased plasma lactic acid. RECOMMENDATIONS AND DISCUSSION: Recommend to continue current medical management, continue with monitoring and symptomatic treatment. Otherwise monitor closely, continue with IV steroids, continue to monitor blood sugars closely. Guarded prognosis because of multiple complex medical issues. See orders for further details. Further recommendations to follow. MMODL / IJN: [id number] /
[2018-02-02] MEDS: TAMSULOSIN 0.4 MG CAP.ER.24H PO SCH (18:20)
[2018-02-02 19:00] LABS: Glucose,Whole Blood 241 mg/dL (75-99)
[2018-02-02 19:51] LABS: Glucose,Whole Blood 189 mg/dL (75-99)
[2018-02-02] MEDS: PRAVASTATIN SODIUM 80 MG TAB PO SCH (21:04)
[2018-02-02 21:06] LABS: Glucose,Whole Blood 170 mg/dL (75-99)
[2018-02-02] MEDS: ZOLPIDEM 10 MG TAB PO PRN (21:53)
[2018-02-02 22:11] LABS: Glucose,Whole Blood 154 mg/dL (75-99)
[2018-02-02 22:56] LABS: Glucose,Whole Blood 170 mg/dL (75-99)
[2018-02-02] MEDS: SODIUM CHLORIDE 0.9% 1,000 ML IV SCH (23:39)
[2018-02-03 00:15] LABS: Glucose,Whole Blood 126 mg/dL (75-99)
[2018-02-03 00:58] LABS: Glucose,Whole Blood 128 mg/dL (75-99)
[2018-02-03 02:06] LABS: Glucose,Whole Blood 181 mg/dL (75-99)
[2018-02-03 03:01] LABS: Glucose,Whole Blood 130 mg/dL (75-99)
[2018-02-03 04:41] LABS: Glucose,Whole Blood 130 mg/dL (75-99)
--- NOTE | 2018-02-03 04:59 | PN ---
PROGRESS NOTE DATE OF SERVICE: 02/02/2018 REASON FOR FOLLOWUP: Pneumonia. INTERVAL HISTORY: The patient is afebrile. He seems to be breathing more comfortably. He continued to have a cough, which is dry in nature. No chest pain. No abdominal pain. No nausea, vomiting or any diarrhea and no choking on the food. PHYSICAL EXAMINATION: On examination, blood pressure 130/67 with a pulse of 79, temperature of 98. He is 100% on 7 L of high-flow oxygen. General description is an elderly male lying in bed in no distress. RESPIRATORY SYSTEM: Unlabored breathing, decreased breath sounds in the bases. No wheeze. HEART: S1, S2. Regular rate and rhythm. ABDOMEN: Soft, no tenderness. EXTREMITIES: No edema of the feet. LABS: Hemoglobin is 10, white count 7.4. BUN of 36, creatinine 0.90. Blood culture has been negative. He is unable to provide any sputum. CT angiogram completed yesterday, no acute pulmonary embolism; pulmonary edema and compressive atelectasis. DIAGNOSTIC IMPRESSION AND PLAN: Patient with difficulty in breathing, which is likely multifactorial. Concern for possible pneumonia. The CT angiogram did not show significant consolidation. He is a high risk of aspiration pneumonia because of the underlying esophageal cancer and treatment for the same. We will keep the patient on the cefepime for now, however. Discontinue the vancomycin as no resistant gram positive has been grown and to decrease risk of nephrotoxicity. Family was present at the bedside. Their questions were answered. MMODL / IJN: [id number] /
[2018-02-03 05:00] LABS: Glucose,Whole Blood 155 mg/dL (75-99)
[2018-02-03 05:39] LABS: Anion Gap 6 mmol/L; Blood Urea Nitrogen 39 mg/dL (9-20); Calcium 8.4 mg/dL (8.4-10.2); Carbon Dioxide 22 mmol/L (22-30); Chloride 112 mmol/L (98-107); Glucose 107 mg/dL (74-99); Magnesium 2.3 mg/dL (1.6-2.3); Phosphorus 3.1 mg/dL (2.5-4.5); Potassium 4.5 mmol/L (3.5-5.1); Sodium 140 mmol/L (137-145)
[2018-02-03 05:56] LABS: Glucose,Whole Blood 113 mg/dL (75-99)
[2018-02-03] MEDS: methylPREDNISolone SOD SUCCI 125 MG/2 ML VIAL IV SCH ×4 (05:56→22:37)
[2018-02-03 06:06] LABS: Anisocytosis Moderate; HCT 31.6 % (39.0-53.0); Hypochromasia Slight; MCH 27.9 pg (25.0-35.0); MCHC 31.7 g/dL (31.0-37.0); MCV 88.1 fL (80.0-100.0); Mean Platelet Volume 7.2; Platelet Count 154 k/uL (150-450); RBC 3.58 m/uL (4.30-5.90); RDW 20.9 % (11.5-15.5)
[2018-02-03 06:51] LABS: Mycoplasma IgM Antibody 0.36 INDEX (<=0.90)
[2018-02-03 07:13] LABS: Glucose,Whole Blood 135 mg/dL (75-99)
[2018-02-03] MEDS: IPRATROPIUM-ALBUTEROL 3 ML NEB INHALATION SCH ×4 (08:12→19:41)
[2018-02-03 08:14] LABS: Glucose,Whole Blood 236 mg/dL (75-99)
[2018-02-03] MEDS: CEFEPIME 2 GM in SODIUM CHLORIDE 0.9% 50 ML IVPB SCH ×2 (08:27→19:49)
[2018-02-03] MEDS: NYSTATIN 100,000 UNIT/ML SUSP 500,000 UNIT/5 ML CUP PO SCH ×4 (08:28→20:50)
[2018-02-03] MEDS: HEPARIN SODIUM,PORCINE 5,000 UNIT/ML 1 ML VIAL SQ SCH ×2 (08:28→20:57)
[2018-02-03] MEDS: ALLOPURINOL 300 MG TAB PO SCH (08:29)
[2018-02-03] MEDS: PANTOPRAZOLE 40 MG TABLET PO SCH ×2 (08:29→19:50)
[2018-02-03] MEDS: ASPIRIN 81 MG PO SCH (08:29)
[2018-02-03] MEDS: POTASSIUM CHLORIDE ER 10 MEQ TAB.ER.PRT PO SCH (08:29)
[2018-02-03] MEDS: metFORMIN 500 MG TAB PO SCH ×2 (08:29→19:49)
[2018-02-03] MEDS: TAMSULOSIN 0.4 MG CAP.ER.24H PO SCH (08:29)
[2018-02-03] MEDS: GABAPENTIN 300 MG CAP PO SCH ×3 (08:29→19:49)
[2018-02-03 08:46] LABS: Band Neutrophils % 1 %; Myelocytes % 1 %; Neutrophils % (M) 86 %; Nucleated Red Blood Cells 2 /100 WBC (0-0); Total Cells Counted 200
[2018-02-03 08:47] LABS: Lymphocytes # (M) 0.32 k/uL (1.0-4.8); Monocytes # (M) 0.58 k/uL (0-1.0); Myelocytes # (M) 0.06 k/uL (0); Poikilocytosis (M) Present; WBC 6.4 k/uL (3.8-10.6)
[2018-02-03] MEDS ORDERED: VANCOMYCIN 1,500 MG in SODIUM CHLORIDE 0.9% 250 ML IVPB SCH (09:00)
[2018-02-03] MEDS ORDERED: FUROSEMIDE 10 MG/ML 4 ML VIAL IV STA (09:56)
[2018-02-03 10:39] VITALS: BMI 31.3
[2018-02-03] MEDS ORDERED: INSULIN REGULAR 100 UNIT in SODIUM CHLORIDE 0.9% 100 ML IV SCH (11:30)
[2018-02-03] MEDS: INSULIN ASPART 100 UNIT/ML 1 ML 10 ML VIAL SQ SCH ×2 (11:53→17:54)
--- NOTE | 2018-02-03 15:09 | PN ---
PROGRESS NOTE DATE OF SERVICE: 02/03/2018 INTERIM HISTORY: This 82-year-old gentleman who was admitted with significant pneumonia also had hypoxia. The patient is improving significantly. No chest pain. No palpitations. No fever. Chest CT negative for pulmonary embolism. PHYSICAL EXAM: Alert and oriented x3. Pulse 101, blood pressure 119/60, respirations 32, temperature is normal, pulse ox 98% on 5 L high-flow. HEENT: Conjunctivae normal. Oral mucosa moist. NECK: No jugular venous distention. No carotid bruit. No lymph node enlargement. CARDIOVASCULAR: S1, S2. No murmur. RESPIRATORY: Breath sounds diminished in the bases. A few scattered rhonchi and crackles. ABDOMEN: Soft, nontender. LEGS: No edema. NERVOUS SYSTEM: No focal deficits. LABS: WBC is 6.5, hemoglobin 10, and glucose 101 and 107. ASSESSMENT: 1. Bilateral pneumonia possibly gram-negative with severe sepsis and septic shock with acute hypoxic respiratory failure on BiPAP. 2. Hypotension possibly secondary to sepsis. 3. Possible aspiration pneumonia. 4. History of basal cell carcinoma, status post radiation and chemotherapy, most recent EGD showing no masses. 5. Possible radiation pneumonitis. 6. Diabetes type 2. 7. History of gastroesophageal reflux disease. 8. Hypertension. 9. Hyperlipidemia. 10.History of degenerative joint disease. 11.History of carotid stenosis, left. 12.History of gout. 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 14.History of nephrolithiasis. 15.History of gastric ulcer. 16.History of appendectomy. 17.Increased creatinine with chronic kidney disease stage 3. 18.Increased plasma lactic acid. RECOMMENDATIONS AND DISCUSSION: I recommend to continue current medication, continue to monitor. Symptomatic treatment otherwise at this time I recommend to continue with the bronchodilators. Continue supplemental oxygen. Incentive spirometry. Closely follow with multiple consultants. PT, OT evaluation, possible ECF rehab. Further recommendations to follow. MMODL / IJN: [id number] /
--- NOTE | 2018-02-03 16:00 | P.PN ---
Subjective Progress Note Date: 02/03/18 Principal diagnosis: Sepsis/pneumonitis 82-year-old male patient was in the intensive care unit for an acute on top of chronic hypoxic respiratory failure. The patient was treated for esophageal cancer with chemoradiation therapy and his disease remission based on the most recent PET scan and based on most recent EGD that showed no evidence of any local disease. The patient got transferred to the intensive care because of worsening hypoxemia. The patient is currently on high flow oxygen and the patient is at 45 L/m oxygen to maintain saturation above 90%. On and off he has also utilizes BiPAP. The intensive care unit. IV fluids currently at 20 mL an hour. Chest x-rays showing chronic interstitial changes in lung bases bilaterally. As such the exact cause for the patient's hypoxemia is not clear were going to proceed with a CAT scan of the chest. In terms of blood work, the patient has no significant leukocytosis. The renal function is stable with a creatinine of 1.06 and the rest of the electrolytes is showing a mild component of non-anion gap metabolic acidosis. BNP level is not elevated. The patient is currently on a combination of cefepime and vancomycin. The patient is also receiving IV Solu-Medrol 40 mg every 6 hours. No chest pain. No pleurisy. No hemoptysis. The blood culture from admission was negative. He did not have a good night sleep yesterday and this morning his sleeping comfortably in bed. No altered mentation. On today's evaluation of 02/02/2018 and seeing this patient for a follow-up. The patient is an acute hypoxic arrest 30 failure and this is an acute on top of chronic hypoxic arrest 30 failure. I repeated the CAT scan of the chest and it showed bilateral groundglass pulmonary infiltrates in addition to fibrotic changes in lung bases. He has coarse crackles in the mid and the lower lung nogueira bilaterally. As such, the acute exacerbation is probably related to an acute infectious process or an acute lung injury/ARDS pattern that caused significant hypoxemia requiring high flow oxygen. I have him on high flow oxygen initially at 45% yesterday and gradually wean down to 31 percent today. He is maintaining a saturation above 95% and when the process of weaning his FiO2 further. He did get a dose of Lasix yesterday. I increased his IV Solu Medrol to 60 mg every 6 hours. He has no significant sputum production. No chest pain. He is not having any shortness of breath at rest however he is quite weak and he gets worked up and short of breath while trying to get out of bed. His cardiac rhythm is sinus. No aspiration. A recent EGD showed no evidence of any tracheoesophageal fistula or any local recurrence within his esophagus. Note that he does not take any form of systemic chemotherapy and he has completed radiation therapy back in August 2017. As such, the acute exacerbation and the diffuse groundglass pulmonary infiltrates that we are seeing remains of an unknown cause to me at this point in time although infectious agents need to be considered still. The patient remains on a combination of cefepime and vancomycin. ID is on the case. No fever. Cultures of been all negative for now. He is producing adequate amount of urine output. He remains on bronchodilators [id number]. No other significant events overnight. The patient is seen again today 02/03/2018 in follow-up in the intensive care unit. He is currently awake and alert in no acute distress. He is breathing quite a bit easier today as compared to yesterday. His oxygen requirements have improved. He is currently maintaining good O2 saturations in the mid 90s on 5 L/m high flow nasal cannula. He has been afebrile. Blood and urine cultures revealed no growth. White count 6.4. Hemoglobin 10.0. Creatinine 0.90. He is continued on DuoNeb inhalations, IV Solu-Medrol, antibiotics in the form of cefepime. Mycoplasma pneumonia IgG and IgM within normal limits. Objective - Vital Signs Vital signs: Vital Signs Temp 98.4 F 02/03/18 14:10 Pulse 92 02/03/18 14:10 Resp 24 02/03/18 14:10 BP 129/72 02/03/18 14:10 Pulse Ox 95 02/03/18 14:10 Intake & Output 02/02/18 02/03/18 02/03/18 18:59 06:59 18:59 Intake Total 2304.411 72.453 62.633 Output Total 1321 350 250 Balance 983.411 -277.547 -187.367 Weight 90.7 kg 90.7 kg Intake: IV 457 20 20 Cefepime 2 gm In Sodium 50 Chloride 0.9% 50 ml @ 100 mls/hr IVPB Q12HR [facility] Rx #:[id number] Sodium Chloride 0.9% 1, 240 20 20 000 ml @ 20 mls/hr IV . Q24H [facility] Rx#:[id number] Vancomycin 1,750 mg In 167 Sodium Chloride 0.9% 500 ml @ 166.667 mls/hr IVPB Q16H [facility] Rx#:[id number] Intake, IV Titration 47.411 52.453 42.633 Amount Insulin Regular 100 unit 47.411 52.453 34.135 In Sodium Chloride 0.9% 100 ml @ Per Protocol IV .Q0M [facility] Rx#:[id number] Insulin Regular 100 unit 8.498 In Sodium Chloride 0.9% 100 ml @ Titrate IV .Q0M [facility] Rx#:[id number] Oral 1800 Output: Urine 1320 350 250 Stool 1 Other: Voiding Method Bedside Commode Bedside Commode Urinal Urinal Urinal # Voids 0 1 1 # Bowel Movements 1 - Exam Appearance the patient is calm and comfortable currently down to 5 L high flow nasal cannula. Head exam was generally normal. There was no scleral icterus or corneal arcus. Mucous membranes were moist. Neck was supple and without jugular venous distension, thyromegaly, or carotid bruits. Carotids were easily palpable bilaterally. There was no adenopathy. Lungs sounds are diminished in lung bases bilaterally along with bibasilar crackles and the patient has coarse crackles in the mid and lower lung nogueira bilaterally. Cardiac exam revealed the PMI to be normally situated and sized. The rhythm was regular and no extrasystoles were noted during several minutes of auscultation. The first and second heart sounds were normal and physiologic splitting of the second heart sound was noted. There were no murmurs, rubs, clicks, or gallops. Abdominal exam revealed normal bowel sounds. The abdomen was soft, non-tender, and without masses, organomegaly, or appreciable enlargement of the abdominal aorta. Examination of the extremities revealed easily palpable radial, femoral and pedal pulses. There was no cyanosis, clubbing or edema. Examination of the skin revealed no evidence of significant rashes, suspicious appearing nevi or other concerning lesions. Neurologically awake and alert and is no focal neurological deficits. - Labs CBC & Chem 7: 02/03/18 04:39 02/03/18 04:39 Labs: Abnormal Lab Results - Last 24 Hours (Table) 02/02/18 02/02/1818 Range/Units 16:33 18:04 18:58 RBC (4.30-5.90) m/uL Hgb (13.0-17.5) gm/dL Hct (39.0-53.0) % RDW (11.5-15.5) % Lymphocytes # (Manual) (1.0-4.8) k/uL Myelocytes # (Manual) (0) k/uL Nucleated RBCs (0-0) /100 WBC Chloride (98-107) mmol/L BUN (9-20) mg/dL Glucose (74-99) mg/dL POC Glucose (mg/dL) 236 H 264 H 241 H (75-99) mg/dL 02/02/18 02/02/18 02/02/18 Range/Units 19:50 21:04 21:50 RBC (4.30-5.90) m/uL Hgb (13.0-17.5) gm/dL Hct (39.0-53.0) % RDW (11.5-15.5) % Lymphocytes # (Manual) (1.0-4.8) k/uL Myelocytes # (Manual) (0) k/uL Nucleated RBCs (0-0) /100 WBC Chloride (98-107) mmol/L BUN (9-20) mg/dL Glucose (74-99) mg/dL POC Glucose (mg/dL) 189 H 170 H 154 H (75-99) mg/dL 02/02/18 02/03/18 02/03/18 Range/Units 22:54 00:13 00:57 RBC (4.30-5.90) m/uL Hgb (13.0-17.5) gm/dL Hct (39.0-53.0) % RDW (11.5-15.5) % Lymphocytes # (Manual) (1.0-4.8) k/uL Myelocytes # (Manual) (0) k/uL Nucleated RBCs (0-0) /100 WBC Chloride (98-107) mmol/L BUN (9-20) mg/dL Glucose (74-99) mg/dL POC Glucose (mg/dL) 170 H 126 H 128 H (75-99) mg/dL 02/03/18 02/03/18 02/03/18 Range/Units 02:02 02:59 04:21 RBC (4.30-5.90) m/uL Hgb (13.0-17.5) gm/dL Hct (39.0-53.0) % RDW (11.5-15.5) % Lymphocytes # (Manual) (1.0-4.8) k/uL Myelocytes # (Manual) (0) k/uL Nucleated RBCs (0-0) /100 WBC Chloride (98-107) mmol/L BUN (9-20) mg/dL Glucose (74-99) mg/dL POC Glucose (mg/dL) 181 H 130 H 130 H (75-99) mg/dL 02/03/18 02/03/18 02/03/18 Range/Units 04:39 04:39 04:58 RBC 3.58 L (4.30-5.90) m/uL Hgb 10.0 L (13.0-17.5) gm/dL Hct 31.6 L (39.0-53.0) % RDW 20.9 H (11.5-15.5) % Lymphocytes # (Manual) 0.32 L (1.0-4.8) k/uL Myelocytes # (Manual) 0.06 H (0) k/uL Nucleated RBCs 2 H (0-0) /100 WBC Chloride 112 H (98-107) mmol/L BUN 39 H (9-20) mg/dL Glucose 107 H (74-99) mg/dL POC Glucose (mg/dL) 155 H (75-99) mg/dL 02/03/18 02/03/18 02/03/18 Range/Units 05:53 07:12 08:10 RBC (4.30-5.90) m/uL Hgb (13.0-17.5) gm/dL Hct (39.0-53.0) % RDW (11.5-15.5) % Lymphocytes # (Manual) (1.0-4.8) k/uL Myelocytes # (Manual) (0) k/uL Nucleated RBCs (0-0) /100 WBC Chloride (98-107) mmol/L BUN (9-20) mg/dL Glucose (74-99) mg/dL POC Glucose (mg/dL) 113 H 135 H 236 H (75-99) mg/dL Assessment and Plan Assessment: Assessment 1 acute on top of chronic hypoxic history failure with significant worsening in the oxygenation and development of chronic interstitial changes in lung bases bilaterally. Exact cause for the acute hypoxic respiratory failure is not clear. Computed tomography scan of the chest was done yesterday and showed no evidence of any pulmonary embolism. There is diffuse bilateral groundglass changes in addition to fibrotic changes in lung bases. Rule out acute exacerbation of pulmonate fibrosis. Rule out superinfection either with atypical microorganisms or viruses. Drug induced ILD is felt to be less likely. Radiation-induced LV is felt to be less likely. The pattern can also represent an acute lung injury/ARDS picture, exact cause is not clear. Patient is on steroids. Patient is hemodynamic is stable. The patient is afebrile. Fortunately the patient is showing some signs of improvement and is currently down to 5 L high flow nasal cannula. 2 previous history of radiation pneumonitis currently on oral prednisone on outpatient basis currently on IV Solu-Medrol 3 esophagus adenocarcinoma, details discussed above, currently in remission and the most recent PET scan and the EGD showed no evidence of any disease process 4 diabetes mellitus 5 hypertension 6 hyperlipidemia 7 peripheral neuropathy 8 carotid artery disease with complete occlusion of the left carotid artery 9 shingles 10 osteoarthritis Plan The patient was seen and evaluated by Dr. Brown. He is continuing to improve daily with decreasing FiO2 requirements. Steroids seemed to have improved his situation. We'll also give additional Lasix 40 mg IV push today. Encouraged increased use the incentive spirometer and cough and deep breathing exercises. Legionella urine antigen still pending. We will transfer him out of the intensive care unit to the oncology unit. I, the cosigning physician, performed a history & physical examination of the patient. Lungs sounds with basilar crackles. Maintaining good O2 saturations in the 90s on 5 L high flow nasal cannula. I discussed the assessment and plan of care with my nurse practitioner, Heather Lara. I attest to the above note as dictated by her.
[2018-02-03 16:38] LABS: Glucose,Whole Blood 187 mg/dL (75-99)
[2018-02-03 16:38] LABS: Glucose,Whole Blood 198 mg/dL (75-99)
[2018-02-03 16:46] LABS: Glucose,Whole Blood 190 mg/dL (75-99)
[2018-02-03 16:46] LABS: Glucose,Whole Blood 267 mg/dL (75-99)
[2018-02-03 16:46] LABS: Glucose,Whole Blood 144 mg/dL (75-99)
[2018-02-03 16:46] LABS: Glucose,Whole Blood 254 mg/dL (75-99)
[2018-02-03 16:46] LABS: Glucose,Whole Blood 218 mg/dL (75-99)
[2018-02-03 18:50] LABS: Glucose,Whole Blood 216 mg/dL (75-99)
[2018-02-03 20:37] LABS: Glucose,Whole Blood 224 mg/dL (75-99)
[2018-02-03] MEDS: PRAVASTATIN SODIUM 80 MG TAB PO SCH (21:16)
[2018-02-03 22:32] LABS: Glucose,Whole Blood 198 mg/dL (75-99)
[2018-02-03] MEDS: LORazepam 2 MG/ML INJ IV PRN (22:37)
[2018-02-03] MEDS: ZOLPIDEM 10 MG TAB PO PRN (22:37)
--- NOTE | 2018-02-03 23:12 | PN ---
PROGRESS NOTE DATE OF SERVICE: 02/03/2018 REASON FOR FOLLOWUP: Pneumonia. INTERVAL HISTORY: The patient is currently afebrile. He seems to be breathing slightly comfortably. Denies having any chest pain. Occasional cough. No abdominal pain or diarrhea. PHYSICAL EXAMINATION: Blood pressure is 129/72 with a pulse of 92, temperature 98.4. He is 95% on 2 L nasal cannula. General description is an elderly male up in the bed in no distress. RESPIRATORY SYSTEM: Unlabored breathing with some coarse crackles at the bases. HEART: S1, S2. Regular rate and rhythm. ABDOMEN: Soft. No tenderness. LABS: Hemoglobin is 10 with a white count of 6.4. BUN of 39 and creatinine 0.90. Blood and urine cultures negative. No sputum could be collected. DIAGNOSTIC IMPRESSION AND PLAN: Patient admitted to hospital with difficulty breathing which is likely multifactorial with a concern about possible gram-negative/aspiration pneumonia. Unable to provide any sputum. Currently on cefepime. Transition to oral on discharge for a short course. Continue with supportive care. MMODL / IJN: [id number] /
[2018-02-04 00:42] LABS: Glucose,Whole Blood 186 mg/dL (75-99)
[2018-02-04 02:00] LABS: Glucose,Whole Blood 166 mg/dL (75-99)
[2018-02-04 04:31] LABS: Glucose,Whole Blood 92 mg/dL (75-99)
[2018-02-04] MEDS: methylPREDNISolone SOD SUCCI 125 MG/2 ML VIAL IV SCH (05:07)
[2018-02-04 06:09] LABS: Glucose,Whole Blood 140 mg/dL (75-99)
[2018-02-04 08:02] LABS: Glucose,Whole Blood 97 mg/dL (75-99)
[2018-02-04] MEDS: GABAPENTIN 300 MG CAP PO SCH ×3 (08:19→20:52)
[2018-02-04] MEDS: POTASSIUM CHLORIDE ER 10 MEQ TAB.ER.PRT PO SCH (08:20)
[2018-02-04] MEDS: INSULIN ASPART 100 UNIT/ML 1 ML 10 ML VIAL SQ SCH ×4 (08:24→20:51)
[2018-02-04] MEDS: ALLOPURINOL 300 MG TAB PO SCH (08:24)
[2018-02-04] MEDS: metFORMIN 500 MG TAB PO SCH ×2 (08:24→17:27)
[2018-02-04] MEDS: ASPIRIN 81 MG PO SCH (08:24)
[2018-02-04] MEDS: TAMSULOSIN 0.4 MG CAP.ER.24H PO SCH (08:24)
[2018-02-04] MEDS: NYSTATIN 100,000 UNIT/ML SUSP 500,000 UNIT/5 ML CUP PO SCH ×4 (08:24→20:53)
[2018-02-04] MEDS: PANTOPRAZOLE 40 MG TABLET PO SCH ×2 (08:24→17:28)
[2018-02-04] MEDS: HEPARIN SODIUM,PORCINE 5,000 UNIT/ML 1 ML VIAL SQ SCH ×2 (08:25→20:52)
[2018-02-04 09:04] LABS: Glucose,Whole Blood 145 mg/dL (75-99)
[2018-02-04] MEDS: CEFEPIME 2 GM in SODIUM CHLORIDE 0.9% 50 ML IVPB SCH ×2 (09:08→20:51)
[2018-02-04] MEDS: IPRATROPIUM-ALBUTEROL 3 ML NEB INHALATION SCH ×4 (09:35→18:47)
[2018-02-04 11:06] LABS: Glucose,Whole Blood 138 mg/dL (75-99)
[2018-02-04] MEDS: predniSONE 20 MG TAB PO SCH (13:10)
[2018-02-04] MEDS: INSULIN DETEMIR 100 UNIT/ML 10 ML VIAL SQ SCH ×2 (13:10→20:51)
--- NOTE | 2018-02-04 14:25 | P.PN ---
Subjective Progress Note Date: 02/04/18 Principal diagnosis: Difficulty in breathing, septic shock. Pt seen in f/u, he is now on medical floor, his O2 is at 4L, he is very concerned about his legs being so weak, he is starting to eat, no fever, nausea , cannot remember his last BM, no bleeding Objective - Vital Signs Vital signs: Vital Signs Temp 97.1 F L 02/04/18 05:00 Pulse 100 02/04/18 12:27 Resp 16 02/04/18 09:00 BP 132/67 02/04/18 11:48 Pulse Ox 93 L 02/04/18 05:00 Intake & Output 02/03/18 02/04/18 02/04/18 18:59 06:59 18:59 Intake Total 62.633 635.621 5.5 Output Total 1125 726 188 Balance -1062.367 -90.379 -182.5 Weight 90.7 kg Intake: IV 20 Sodium Chloride 0.9% 1, 20 000 ml @ 20 mls/hr IV . Q24H [facility] Rx#:[id number] Intake, IV Titration 42.633 45.621 5.5 Amount Insulin Regular 100 unit 34.135 In Sodium Chloride 0.9% 100 ml @ Per Protocol IV .Q0M [facility] Rx#:[id number] Insulin Regular 100 unit 8.498 45.621 5.5 In Sodium Chloride 0.9% 100 ml @ Titrate IV .Q0M [facility] Rx#:[id number] Oral 590 Output: Urine 550 500 Post Void Residual 575 225 188 Stool 1 Other: Voiding Method Urinal Urinal Urinal # Voids 1 3 - Constitutional General appearance: Present: cooperative, mild distress, obese - EENT Eyes: Present: anicteric sclerae - Respiratory Respiratory: bilateral: diminished - Cardiovascular Heart sounds: normal: S1, S2 - Gastrointestinal General gastrointestinal: Present: normal bowel sounds, soft - Integumentary Integumentary: Present: flushed - Musculoskeletal Musculoskeletal: Present: generalized weakness - Psychiatric Psychiatric: Present: A&O x's 3 - Labs CBC & Chem 7: 02/03/18 04:39 02/03/18 04:39 Labs: Abnormal Lab Results - Last 24 Hours (Table) 02/03/18 02/03/18 02/03/18 Range/Units 09:17 10:13 10:57 POC Glucose (mg/dL) 254 H 267 H 190 H (75-99) mg/dL 02/03/18 02/03/18 02/03/18 Range/Units 11:49 12:32 14:09 POC Glucose (mg/dL) 144 H 218 H 187 H (75-99) mg/dL 02/03/18 02/03/18 02/03/18 Range/Units 16:05 18:49 20:36 POC Glucose (mg/dL) 198 H 216 H 224 H (75-99) mg/dL 02/03/18 02/04/18 02/04/18 Range/Units 22:30 00:41 01:58 POC Glucose (mg/dL) 198 H 186 H 166 H (75-99) mg/dL 02/04/18 02/04/18 02/04/18 Range/Units 05:57 09:03 11:05 POC Glucose (mg/dL) 140 H 145 H 138 H (75-99) mg/dL Assessment and Plan (1) Adenocarcinoma of esophagus, stage 3 Narrative/Plan: Pt will continue on f/u as scheduled for his malignancy. It was reinforced with pt and that currently there is no evidence of disease. Current Visit: No Status: Chronic Priority: Medium Code(s): C15.9 - MALIGNANT NEOPLASM OF ESOPHAGUS, UNSPECIFIED SNOMED Code(s): 540980237 Plan: Pt had numerous questions about why he became so sick and about his weakness. I told him that we don't always know how or why someone gets and infection. The case had been reviewed with both Radiation Oncology and Pulmonary and his illness was not felt to be because of malignancy as pt, at this time, has no evidence of cancer. Could he have become so ill as a result of a weakened immune system because he had a cancer, was treated for cancer with chemo and radiation, that is certainly a possibility and could he have just contracted a terrible infection, that's possible too. I encouraged pt to work closely with PT/OT and to consider additional PT after hospitalization. He was also encouraged to do the prescribed physical activity and exercises. All of pt and 's questions were answered to the best of my ability. F/U appt in chart.
--- NOTE | 2018-02-04 15:32 | P.PN ---
Subjective Progress Note Date: 02/04/18 Principal diagnosis: Sepsis/pneumonitis 82-year-old male patient was in the intensive care unit for an acute on top of chronic hypoxic respiratory failure. The patient was treated for esophageal cancer with chemoradiation therapy and his disease remission based on the most recent PET scan and based on most recent EGD that showed no evidence of any local disease. The patient got transferred to the intensive care because of worsening hypoxemia. The patient is currently on high flow oxygen and the patient is at 45 L/m oxygen to maintain saturation above 90%. On and off he has also utilizes BiPAP. The intensive care unit. IV fluids currently at 20 mL an hour. Chest x-rays showing chronic interstitial changes in lung bases bilaterally. As such the exact cause for the patient's hypoxemia is not clear were going to proceed with a CAT scan of the chest. In terms of blood work, the patient has no significant leukocytosis. The renal function is stable with a creatinine of 1.06 and the rest of the electrolytes is showing a mild component of non-anion gap metabolic acidosis. BNP level is not elevated. The patient is currently on a combination of cefepime and vancomycin. The patient is also receiving IV Solu-Medrol 40 mg every 6 hours. No chest pain. No pleurisy. No hemoptysis. The blood culture from admission was negative. He did not have a good night sleep yesterday and this morning his sleeping comfortably in bed. No altered mentation. On today's evaluation of 02/02/2018 and seeing this patient for a follow-up. The patient is an acute hypoxic arrest 30 failure and this is an acute on top of chronic hypoxic arrest 30 failure. I repeated the CAT scan of the chest and it showed bilateral groundglass pulmonary infiltrates in addition to fibrotic changes in lung bases. He has coarse crackles in the mid and the lower lung nogueira bilaterally. As such, the acute exacerbation is probably related to an acute infectious process or an acute lung injury/ARDS pattern that caused significant hypoxemia requiring high flow oxygen. I have him on high flow oxygen initially at 45% yesterday and gradually wean down to 31 percent today. He is maintaining a saturation above 95% and when the process of weaning his FiO2 further. He did get a dose of Lasix yesterday. I increased his IV Solu Medrol to 60 mg every 6 hours. He has no significant sputum production. No chest pain. He is not having any shortness of breath at rest however he is quite weak and he gets worked up and short of breath while trying to get out of bed. His cardiac rhythm is sinus. No aspiration. A recent EGD showed no evidence of any tracheoesophageal fistula or any local recurrence within his esophagus. Note that he does not take any form of systemic chemotherapy and he has completed radiation therapy back in August 2017. As such, the acute exacerbation and the diffuse groundglass pulmonary infiltrates that we are seeing remains of an unknown cause to me at this point in time although infectious agents need to be considered still. The patient remains on a combination of cefepime and vancomycin. ID is on the case. No fever. Cultures of been all negative for now. He is producing adequate amount of urine output. He remains on bronchodilators [id number]. No other significant events overnight. The patient is seen again today 02/03/2018 in follow-up in the intensive care unit. He is currently awake and alert in no acute distress. He is breathing quite a bit easier today as compared to yesterday. His oxygen requirements have improved. He is currently maintaining good O2 saturations in the mid 90s on 5 L/m high flow nasal cannula. He has been afebrile. Blood and urine cultures revealed no growth. White count 6.4. Hemoglobin 10.0. Creatinine 0.90. He is continued on DuoNeb inhalations, IV Solu-Medrol, antibiotics in the form of cefepime. Mycoplasma pneumonia IgG and IgM within normal limits. The patient is seen again today 02/04/2018 in follow-up on the oncology unit. He is currently sitting up in a chair at the bedside. He is awake and alert in no acute distress. He is breathing easier today as compared to yesterday. His oxygen requirements are improving he is currently on 4 L/m per nasal cannula while maintaining O2 saturations in the 90s. He has been afebrile. He is continued on bronchodilators, prednisone, antibiotics in the form of cefepime. Objective - Vital Signs Vital signs: Vital Signs Temp 97.1 F L 02/04/18 05:00 Pulse 71 02/04/18 15:19 Resp 16 02/04/18 15:19 BP 132/67 02/04/18 11:48 Pulse Ox 93 L 08/23/18 05:00 Intake & Output 02/03/18 02/04/18 02/04/18 18:59 06:59 18:59 Intake Total 62.633 635.621 295.5 Output Total 1125 726 689 Balance -1062.367 -90.379 -393.5 Weight 90.7 kg Intake: IV 20 50 Cefepime 2 gm In Sodium 50 Chloride 0.9% 50 ml @ 100 mls/hr IVPB Q12HR [facility] Rx #:[id number] Sodium Chloride 0.9% 1, 20 000 ml @ 20 mls/hr IV . Q24H [facility] Rx#:[id number] Intake, IV Titration 42.633 45.621 5.5 Amount Insulin Regular 100 unit 34.135 In Sodium Chloride 0.9% 100 ml @ Per Protocol IV .Q0M [facility] Rx#:[id number] Insulin Regular 100 unit 8.498 45.621 5.5 In Sodium Chloride 0.9% 100 ml @ Titrate IV .Q0M [facility] Rx#:[id number] Oral 590 240 Output: Urine 550 500 500 Post Void Residual 575 225 188 Stool 1 1 Other: Voiding Method Urinal Urinal Urinal # Voids 1 3 2 - Exam Appearance the patient is calm and comfortable currently down to 5 L high flow nasal cannula. Head exam was generally normal. There was no scleral icterus or corneal arcus. Mucous membranes were moist. Neck was supple and without jugular venous distension, thyromegaly, or carotid bruits. Carotids were easily palpable bilaterally. There was no adenopathy. Lungs sounds are diminished in lung bases bilaterally along with bibasilar crackles. Cardiac exam revealed the PMI to be normally situated and sized. The rhythm was regular and no extrasystoles were noted during several minutes of auscultation. The first and second heart sounds were normal and physiologic splitting of the second heart sound was noted. There were no murmurs, rubs, clicks, or gallops. Abdominal exam revealed normal bowel sounds. The abdomen was soft, non-tender, and without masses, organomegaly, or appreciable enlargement of the abdominal aorta. Examination of the extremities revealed easily palpable radial, femoral and pedal pulses. There was no cyanosis, clubbing or edema. Examination of the skin revealed no evidence of significant rashes, suspicious appearing nevi or other concerning lesions. Neurologically awake and alert and is no focal neurological deficits. - Labs CBC & Chem 7: 02/03/18 04:39 02/03/18 04:39 Labs: Abnormal Lab Results - Last 24 Hours (Table) 02/03/18 02/03/18 02/03/18 Range/Units 09:17 10:13 10:57 POC Glucose (mg/dL) 254 H 267 H 190 H (75-99) mg/dL 02/03/18 02/03/18 02/03/18 Range/Units 11:49 12:32 14:09 POC Glucose (mg/dL) 144 H 218 H 187 H (75-99) mg/dL 02/03/18 02/03/18 02/03/18 Range/Units 16:05 18:49 20:36 POC Glucose (mg/dL) 198 H 216 H 224 H (75-99) mg/dL 02/03/18 02/04/18 02/04/18 Range/Units 22:30 00:41 01:58 POC Glucose (mg/dL) 198 H 186 H 166 H (75-99) mg/dL 02/04/18 02/04/18 02/04/18 Range/Units 05:57 09:03 11:05 POC Glucose (mg/dL) 140 H 145 H 138 H (75-99) mg/dL Assessment and Plan Assessment: Assessment 1 acute on top of chronic hypoxic history failure with significant worsening in the oxygenation and development of chronic interstitial changes in lung bases bilaterally. Exact cause for the acute hypoxic respiratory failure is not clear. Computed tomography scan of the chest was done yesterday and showed no evidence of any pulmonary embolism. There is diffuse bilateral groundglass changes in addition to fibrotic changes in lung bases. Rule out acute exacerbation of pulmonate fibrosis. Rule out superinfection either with atypical microorganisms or viruses. Drug induced ILD is felt to be less likely. Radiation-induced LV is felt to be less likely. The pattern can also represent an acute lung injury/ARDS picture, exact cause is not clear. Patient is on steroids. Patient is hemodynamic is stable. The patient is afebrile. Fortunately the patient is showing some signs of improvement and is currently down to 4 L high flow nasal cannula. 2 previous history of radiation pneumonitis currently on oral prednisone on outpatient basis currently on oral prednisone 3 esophagus adenocarcinoma, details discussed above, currently in remission and the most recent PET scan and the EGD showed no evidence of any disease process 4 diabetes mellitus 5 hypertension 6 hyperlipidemia 7 peripheral neuropathy 8 carotid artery disease with complete occlusion of the left carotid artery 9 shingles 10 osteoarthritis Plan The patient was seen and evaluated by Dr. Brown. He is continuing to improve daily with decreasing FiO2 requirements. Steroids seemed to have improved his situation. Encouraged increased use the incentive spirometer and cough and deep breathing exercises. We will continue to follow make further recommendations based on his clinical status. The patient may benefit from subacute rehabilitation post discharge. I, the cosigning physician, performed a history & physical examination of the patient. Lungs sounds with basilar crackles. Maintaining good O2 saturations in the 90s on 4 L high flow nasal cannula. I discussed the assessment and plan of care with my nurse practitioner, Heather Lara. I attest to the above note as dictated by her.
--- NOTE | 2018-02-04 16:04 | PN ---
PROGRESS NOTE DATE OF SERVICE: 02/04/2018. This 82-year-old gentleman who was admitted with bilateral pneumonia as well as gram- negative sepsis, septic shock, also acute hypoxic respiratory failure. The patient has hypotension. The patient improved significantly. Patient is currently monitored. PT, OT evaluated the patient. Patient extremely weak at this time and tired. Multiple consultants are following the patient closely. There is no evidence of pulmonary embolism. The patient is hypoxic. PAST MEDICAL HISTORY: Reviewed. PHYSICAL EXAMINATION: The patient is alert, oriented x3. Pulse is 100, blood pressure is 160/72, respiration 16, temperature 97.1, pulse ox 93% on 4 L. HEENT: Conjunctivae normal. Oral mucosa moist. NECK: No jugular venous distention. No carotid bruit. No lymph node enlargement. CARDIOVASCULAR: S1, S2. RESPIRATORY: Breath sounds diminished in the bases. A few scattered rhonchi and crackles. ABDOMEN: Soft, nontender. No mass palpable. LEGS: No edema. NERVOUS SYSTEM: No focal deficits. LABS: WBC 6.2, hemoglobin 10 and glucose 198. ASSESSMENT: 1. Bilateral pneumonia possibly gram-negative, severe sepsis and septic shock with acute hypoxic respiratory failure status post BiPAP. 2. Hypotension possibly secondary to sepsis, improved. 3. Possible aspiration pneumonia. 4. History of esophageal carcinoma, status post radiation chemotherapy most recent EGD showing no masses or recurrence. 5. Possible radiation pneumonitis. 6. Diabetes mellitus type 2. 7. History of gastroesophageal reflux disease. 8. Hypertension. 9. Hyperlipidemia. 10.History of carotid stenosis, left. 11.History of gout. 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 13.History nephrolithiasis. 14.History of gastric ulcer. 15.History of appendectomy. 16.Increased creatinine with chronic kidney stage 3. 17.Increased plasma lactic acid. RECOMMENDATIONS AND DISCUSSION: I recommend to continue current medications, management and symptomatic treatment. Otherwise we will monitor the patient closely. Continue with the current medication. Continue symptomatic treatment. Continue PT, OT evaluation, possible ECF rehab. Taper the steroids and continue to monitor. Further recommendations to follow. MMODL / IJN: [id number] /
[2018-02-04 16:12] LABS: Glucose,Whole Blood 291 mg/dL (75-99)
[2018-02-04 17:19] LABS: Glucose,Whole Blood 238 mg/dL (75-99)
[2018-02-04] MEDS: TORSEMIDE 20 MG TAB PO SCH (17:58)
[2018-02-04 20:23] LABS: Glucose,Whole Blood 273 mg/dL (75-99)
[2018-02-04] MEDS: PRAVASTATIN SODIUM 80 MG TAB PO SCH (20:52)
[2018-02-04] MEDS: LORazepam 2 MG/ML INJ IV PRN (21:52)
[2018-02-04] MEDS: ZOLPIDEM 10 MG TAB PO PRN (21:52)
--- NOTE | 2018-02-04 23:10 | PN ---
PROGRESS NOTE DATE OF SERVICE: 02/04/2018. REASON FOR FOLLOWUP: Pneumonia. INTERVAL HISTORY: The patient is afebrile. He seems to be breathing slightly comfortably. Mild cough, which is dry in nature. No chest pain. No abdominal pain or any diarrhea. EXAMINATION: Blood pressure 113/60 with a pulse of 99, temperature of 98.6. He is 91% on 4 L nasal cannula. General description is an elderly male up in the chair in no distress. RESPIRATORY SYSTEM: Unlabored breathing. Few fine crackles at the base. HEART: S1, S2. Regular rate and rhythm. ABDOMEN: Soft. No tenderness. EXTREMITIES: 3+ edema of the feet. LABS: Hemoglobin is 10, white count 6.4, BUN is 39, creatinine 0.90. DIAGNOSTIC IMPRESSION AND PLAN: The patient admitted to the hospital with difficulty breathing, which is likely multifactorial. Initial concern for possible pneumonia. The patient's fever has resolved and has received about 9 days of IV antibiotic therapy. We will give a short course of oral Avelox on discharge. The patient did have evidence of significant fluid overload with almost 3+ edema of feet. May benefit from more aggressive diuresis. was present at bedside. Questions were answered. MMODL / IJN: [id number] /
[2018-02-05 07:15] LABS: Glucose,Whole Blood 171 mg/dL (75-99)
[2018-02-05] MEDS: INSULIN ASPART 100 UNIT/ML 1 ML 10 ML VIAL SQ SCH ×2 (07:46→12:47)
[2018-02-05] MEDS: NYSTATIN 100,000 UNIT/ML SUSP 500,000 UNIT/5 ML CUP PO SCH ×2 (07:49→12:47)
[2018-02-05] MEDS: TORSEMIDE 20 MG TAB PO SCH (07:50)
[2018-02-05] MEDS: GABAPENTIN 300 MG CAP PO SCH (07:50)
[2018-02-05] MEDS: POTASSIUM CHLORIDE ER 10 MEQ TAB.ER.PRT PO SCH (07:51)
[2018-02-05] MEDS: TAMSULOSIN 0.4 MG CAP.ER.24H PO SCH (07:51)
[2018-02-05] MEDS: ALLOPURINOL 300 MG TAB PO SCH (07:51)
[2018-02-05] MEDS: predniSONE 20 MG TAB PO SCH (07:51)
[2018-02-05] MEDS: PANTOPRAZOLE 40 MG TABLET PO SCH (07:51)
[2018-02-05] MEDS: ASPIRIN 81 MG PO SCH (07:51)
[2018-02-05] MEDS: metFORMIN 500 MG TAB PO SCH (07:52)
[2018-02-05] MEDS: HEPARIN SODIUM,PORCINE 5,000 UNIT/ML 1 ML VIAL SQ SCH (07:52)
[2018-02-05] MEDS: CEFEPIME 2 GM in SODIUM CHLORIDE 0.9% 50 ML IVPB SCH (07:52)
[2018-02-05] MEDS: IPRATROPIUM-ALBUTEROL 3 ML NEB INHALATION SCH ×2 (08:27→12:02)
[2018-02-05] MEDS: INSULIN DETEMIR 100 UNIT/ML 10 ML VIAL SQ SCH (09:33)
[2018-02-05 11:28] LABS: Glucose,Whole Blood 190 mg/dL (75-99)
--- NOTE | 2018-02-05 14:10 | P.PN ---
Subjective Progress Note Date: 02/05/18 Principal diagnosis: Sepsis/pneumonitis 82-year-old male patient was in the intensive care unit for an acute on top of chronic hypoxic respiratory failure. The patient was treated for esophageal cancer with chemoradiation therapy and his disease remission based on the most recent PET scan and based on most recent EGD that showed no evidence of any local disease. The patient got transferred to the intensive care because of worsening hypoxemia. The patient is currently on high flow oxygen and the patient is at 45 L/m oxygen to maintain saturation above 90%. On and off he has also utilizes BiPAP. The intensive care unit. IV fluids currently at 20 mL an hour. Chest x-rays showing chronic interstitial changes in lung bases bilaterally. As such the exact cause for the patient's hypoxemia is not clear were going to proceed with a CAT scan of the chest. In terms of blood work, the patient has no significant leukocytosis. The renal function is stable with a creatinine of 1.06 and the rest of the electrolytes is showing a mild component of non-anion gap metabolic acidosis. BNP level is not elevated. The patient is currently on a combination of cefepime and vancomycin. The patient is also receiving IV Solu-Medrol 40 mg every 6 hours. No chest pain. No pleurisy. No hemoptysis. The blood culture from admission was negative. He did not have a good night sleep yesterday and this morning his sleeping comfortably in bed. No altered mentation. On today's evaluation of 02/02/2018 and seeing this patient for a follow-up. The patient is an acute hypoxic arrest 30 failure and this is an acute on top of chronic hypoxic arrest 30 failure. I repeated the CAT scan of the chest and it showed bilateral groundglass pulmonary infiltrates in addition to fibrotic changes in lung bases. He has coarse crackles in the mid and the lower lung nogueira bilaterally. As such, the acute exacerbation is probably related to an acute infectious process or an acute lung injury/ARDS pattern that caused significant hypoxemia requiring high flow oxygen. I have him on high flow oxygen initially at 45% yesterday and gradually wean down to 31 percent today. He is maintaining a saturation above 95% and when the process of weaning his FiO2 further. He did get a dose of Lasix yesterday. I increased his IV Solu Medrol to 60 mg every 6 hours. He has no significant sputum production. No chest pain. He is not having any shortness of breath at rest however he is quite weak and he gets worked up and short of breath while trying to get out of bed. His cardiac rhythm is sinus. No aspiration. A recent EGD showed no evidence of any tracheoesophageal fistula or any local recurrence within his esophagus. Note that he does not take any form of systemic chemotherapy and he has completed radiation therapy back in August 2017. As such, the acute exacerbation and the diffuse groundglass pulmonary infiltrates that we are seeing remains of an unknown cause to me at this point in time although infectious agents need to be considered still. The patient remains on a combination of cefepime and vancomycin. ID is on the case. No fever. Cultures of been all negative for now. He is producing adequate amount of urine output. He remains on bronchodilators [id number]. No other significant events overnight. The patient is seen again today 02/03/2018 in follow-up in the intensive care unit. He is currently awake and alert in no acute distress. He is breathing quite a bit easier today as compared to yesterday. His oxygen requirements have improved. He is currently maintaining good O2 saturations in the mid 90s on 5 L/m high flow nasal cannula. He has been afebrile. Blood and urine cultures revealed no growth. White count 6.4. Hemoglobin 10.0. Creatinine 0.90. He is continued on DuoNeb inhalations, IV Solu-Medrol, antibiotics in the form of cefepime. Mycoplasma pneumonia IgG and IgM within normal limits. The patient is seen again today 02/04/2018 in follow-up on the oncology unit. He is currently sitting up in a chair at the bedside. He is awake and alert in no acute distress. He is breathing easier today as compared to yesterday. His oxygen requirements are improving he is currently on 4 L/m per nasal cannula while maintaining O2 saturations in the 90s. He has been afebrile. He is continued on bronchodilators, prednisone, antibiotics in the form of cefepime. The patient is seen again today 02/05/2018 in follow-up on the oncology unit. He is currently sitting up in a chair at the bedside. He is awake and alert in no acute distress. He continues to progress well as far as his pulmonary status. No worsening shortness of breath, cough or congestion. Continues with dry crackles in the bilateral posterior bases. Maintaining good O2 saturations in the 90s on 4 L/m per nasal cannula. Plan is to transfer to [facility] for continued subacute rehab. Objective - Vital Signs Vital signs: Vital Signs Temp 97.4 F L 02/05/18 05:00 Pulse 92 02/05/18 12:02 Resp 16 02/05/18 08:00 BP 133/82 02/05/18 05:00 Pulse Ox 97 02/05/18 05:00 Intake & Output 02/04/18 02/05/18 02/05/18 18:59 06:59 18:59 Intake Total 295.5 1180 Output Total 689 3100 1 Balance -393.5 -1920 -1 Weight 90.7 kg Intake: IV 50 Cefepime 2 gm In Sodium 50 Chloride 0.9% 50 ml @ 100 mls/hr IVPB Q12HR [facility] Rx #:[id number] Intake, IV Titration 5.5 Amount Insulin Regular 100 unit 5.5 In Sodium Chloride 0.9% 100 ml @ Titrate IV .Q0M [facility] Rx#:[id number] Oral 240 1180 Output: Urine 500 3100 Post Void Residual 188 Stool 1 1 Other: Voiding Method Urinal Urinal Urinal # Voids 2 5 - Exam Appearance the patient is calm and comfortable currently down to 5 L high flow nasal cannula. Head exam was generally normal. There was no scleral icterus or corneal arcus. Mucous membranes were moist. Neck was supple and without jugular venous distension, thyromegaly, or carotid bruits. Carotids were easily palpable bilaterally. There was no adenopathy. Lungs sounds are diminished in lung bases bilaterally along with bibasilar crackles. Cardiac exam revealed the PMI to be normally situated and sized. The rhythm was regular and no extrasystoles were noted during several minutes of auscultation. The first and second heart sounds were normal and physiologic splitting of the second heart sound was noted. There were no murmurs, rubs, clicks, or gallops. Abdominal exam revealed normal bowel sounds. The abdomen was soft, non-tender, and without masses, organomegaly, or appreciable enlargement of the abdominal aorta. Examination of the extremities revealed easily palpable radial, femoral and pedal pulses. There was no cyanosis, clubbing or edema. Examination of the skin revealed no evidence of significant rashes, suspicious appearing nevi or other concerning lesions. Neurologically awake and alert and is no focal neurological deficits. - Labs CBC & Chem 7: 02/03/18 04:39 02/03/18 04:39 Labs: Abnormal Lab Results - Last 24 Hours (Table) 02/04/18 02/04/18 02/04/18 Range/Units 16:10 17:18 20:22 POC Glucose (mg/dL) 291 H 238 H 273 H (75-99) mg/dL 02/05/18 02/05/18 Range/Units 07:12 11:26 POC Glucose (mg/dL) 171 H 190 H (75-99) mg/dL Assessment and Plan Assessment: Assessment 1 acute on top of chronic hypoxic history failure with significant worsening in the oxygenation and development of chronic interstitial changes in lung bases bilaterally. Exact cause for the acute hypoxic respiratory failure is not clear. Computed tomography scan of the chest was done yesterday and showed no evidence of any pulmonary embolism. There is diffuse bilateral groundglass changes in addition to fibrotic changes in lung bases. Rule out acute exacerbation of pulmonate fibrosis. Rule out superinfection either with atypical microorganisms or viruses. Drug induced ILD is felt to be less likely. Radiation-induced ILD is felt to be less likely. The pattern can also represent an acute lung injury/ARDS picture, exact cause is not clear. Patient is on steroids. Patient is hemodynamically is stable. The patient is afebrile. Fortunately the patient is showing some signs of improvement and is currently down to 4 L high flow nasal cannula. 2 previous history of radiation pneumonitis currently on oral prednisone on outpatient basis currently on oral prednisone 3 esophagus adenocarcinoma, details discussed above, currently in remission and the most recent PET scan and the EGD showed no evidence of any disease process 4 diabetes mellitus 5 hypertension 6 hyperlipidemia 7 peripheral neuropathy 8 carotid artery disease with complete occlusion of the left carotid artery 9 shingles 10 osteoarthritis Plan The patient was seen and evaluated by Dr. Brown. The patient is stable from pulmonary standpoint. The plan is to discharge to subacute rehabilitation today. I, the cosigning physician, performed a history & physical examination of the patient. Lungs sounds with basilar crackles. Maintaining good O2 saturations in the 90s on 4 L high flow nasal cannula. I discussed the assessment and plan of care with my nurse practitioner, Heather Lara. I attest to the above note as dictated by her.
[2018-02-05] MEDS ORDERED: METOPROLOL TARTRATE 12.5 MG TAB PO SCH (14:37)
--- NOTE | 2018-02-05 14:59 | P.PN ---
Subjective Progress Note Date: 02/05/18 Principal diagnosis: Esophageal Cancer Patient seen and examined today on 5th floor, he is doing better, less coughing. at bedside. He is sitting up in chair and eatring Objective - Vital Signs Vital signs: Vital Signs Temp 97.4 F L 02/05/18 05:00 Pulse 92 02/05/18 12:02 Resp 16 02/05/18 08:00 BP 133/82 02/05/18 05:00 Pulse Ox 97 02/05/18 05:00 Intake & Output 02/04/18 02/05/18 02/05/18 18:59 06:59 18:59 Intake Total 295.5 1180 Output Total 689 3100 1 Balance -393.5 -1920 -1 Weight 90.7 kg Intake: IV 50 Cefepime 2 gm In Sodium 50 Chloride 0.9% 50 ml @ 100 mls/hr IVPB Q12HR MELVA Rx #:[id number] Intake, IV Titration 5.5 Amount Insulin Regular 100 unit 5.5 In Sodium Chloride 0.9% 100 ml @ Titrate IV .Q0M MELVA Rx#:[id number] Oral 240 1180 Output: Urine 500 3100 Post Void Residual 188 Stool 1 1 Other: Voiding Method Urinal Urinal Urinal # Voids 2 5 - Constitutional General appearance: Present: cooperative, no acute distress - EENT Eyes: Present: EOMI, PERRLA ENT: Present: NA/AT, normal oropharynx - Neck Neck: Present: normal ROM - Respiratory Respiratory: bilateral: diminished (bases) - Cardiovascular Rhythm: regular Heart sounds: normal: S1, S2 - Peripheral edema leg Peripheral Edema: bilateral: Trace - Gastrointestinal General gastrointestinal: Present: distended, normal bowel sounds, soft - Integumentary Integumentary: Present: pale - Neurologic Neurologic: Present: CNII-XII intact - Musculoskeletal Musculoskeletal: Present: generalized weakness, strength equal bilaterally - Psychiatric Psychiatric: Present: A&O x's 3, appropriate affect, intact judgment & insight - Labs CBC & Chem 7: 02/03/18 04:39 02/03/18 04:39 Labs: Abnormal Lab Results - Last 24 Hours (Table) 02/04/18 02/04/18 02/04/18 Range/Units 16:10 17:18 20:22 POC Glucose (mg/dL) 291 H 238 H 273 H (75-99) mg/dL 02/05/18 02/05/18 Range/Units 07:12 11:26 POC Glucose (mg/dL) 171 H 190 H (75-99) mg/dL Assessment and Plan Plan: Assessment and Recommendations: 1. Esophageal Cancer - - Completed radiation and chemotherapy in September 2017. - Appears to be in remission 2. Acute Hypoxic Respiratory Failure - Resolved - Multifactorial - Likely - Component of probable radiation pneumonitis, pneumonia, CHF 3. Normocytic Normochromic Anemia - Unclear Etiology -Cotninue to monitor 4. Thrombocytopenia - Resolved likely secondary to infection - Monitor CBC 5. Febrile - Resolved 6. Generalized weakness - Plan to be discharged tomorrow to [facility] for Rehabilitation - Working with PT/OT and continuing to improve
--- NOTE | 2018-02-05 15:03 | P.DS ---
Providers Date of admission: 01/26/18 15:48 Expected date of discharge: 02/05/18 Attending physician: Segr Sampson Consults: 01/26/18 16:01 Consult Physician Urgent Consulting Provider: Cameron Akhtar Consult Reason/Comments: Dyspnea,Pneumonitis Do you want consulting provider notified?: Yes 01/26/18 16:02 Consult Physician Urgent Consulting Provider: Cecilia Resendez Consult Reason/Comments: Oncological care Do you want consulting provider notified?: Yes 01/26/18 19:37 Consult Physician Routine Consulting Provider: Neftaly Nur Consult Reason/Comments: sepsis Do you want consulting provider notified?: Yes 01/27/18 14:42 Consult Physician Urgent Consulting Provider: Octavio Ryan Consult Reason/Comments: 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 Do you want consulting provider notified?: Yes 01/27/18 14:55 Consult Physician Urgent Consulting Provider: Adele Maloney Consult Reason/Comments: elevated troponin Do you want consulting provider notified?: Yes Primary care physician: Sumit Dozier Final Diagnoses: -Bilateral pneumonia, possibly gram-negative, severe sepsis and septic shock with acute hypoxic respiratory failure status post BiPAP -Hypotension possibly secondary to sepsis, improved -Possible aspiration pneumonia -History of esophageal carcinoma, status post radiation, chemotherapy, most recent EGD showing no masses or reoccurrence -Possible radiation pneumonitis -Diabetes mellitus type 2 -Gastroesophageal reflux disease -Acute on chronic renal failure, stage III -Hypertension -Hyperlipidemia -History of left carotid stenosis -Hypertension -Hyperlipidemia Hospital course: This is an 82-year-old gentleman admitted with bilateral pneumonia, gram-negative sepsis, septic shock, acute hypoxic respiratory failure and multiple other medical issues. Initially required close monitoring in ICU. Evaluated by multiple consults, infectious disease, pulmonary, oncology , vascular surgery and cardiology. Maintained on IV antibiotic therapy, nebulized bronchodilators, systemic steroids. Significant clinical improvement. Cleared by all consults for discharge. Patient is being discharged [facility] in a stable condition with guarded prognosis. EXAM: GENERAL: Sitting up in bed, no acute distressCV: Regular S1S2.LUNGS: Bilateral lungs diminished with bibasilar crackles.>ABD: Soft, nontender, positive bowel sounds. NEURO: No focal deficits. The impression and plan of care has been dictated as directed. : I performed a history and examination of this patient, discussed the same with the dictator. I agree with the dictator's note ,documented as a scribe. Any additional findings or plans will be noted. Time taken: 35 minutes Patient Condition at Discharge: Stable Plan - Discharge Summary Discharge Rx Participant: Yes New Discharge Prescriptions: New Acetaminophen Tab [Tylenol] 500 mg PO Q6HR PRN tab PRN Reason: Fever and/ or Mild Pain INSULIN LISPRO (HumaLOG) [humaLOG] 0 unit SQ ACHS #1 vial Ipratropium-Albuterol Nebulize [Duoneb 0.5 mg-3 mg/3 ml Soln] 3 ml INHALATION RT-QID ampul.neb Ipratropium-Albuterol Nebulize [Duoneb 0.5 mg-3 mg/3 ml Soln] 3 ml INHALATION RT-Q4H PRN ampul.neb PRN Reason: shortness of breath Menthol [Nice Cough Drops] 1 each MUCOUS MEM Q4H PRN lozenge PRN Reason: Sore Throat Metoprolol Tartrate [Lopressor] 12.5 mg PO BID tab predniSONE 10 mg PO DIRECTED #30 tab Tamsulosin [Flomax] 0.4 mg PO PC-BRKFST cap.er.24h Continue Nitroglycerin Sl Tabs [Nitrostat] 0.4 mg SUBLINGUAL Q5M PRN PRN Reason: Chest Pain Cetirizine HCl 10 mg PO DAILY PRN PRN Reason: Allergy Symptoms Pravastatin Sodium [Pravachol] 80 mg PO HS Gabapentin [Neurontin] 600 mg PO BID Potassium Chloride ER [K-Dur 10] 10 meq PO DAILY metFORMIN HCL [Glucophage] 1,000 mg PO BID Aspirin EC [Ecotrin Low Dose] 81 mg PO DAILY Allopurinol [Zyloprim] 300 mg PO DAILY Gabapentin [Neurontin] 1,200 mg PO HS INSULIN LISPRO (humaLOG) [humaLOG] See Protocol SQ ACHS Omeprazole 40 mg PO BID Torsemide [Demadex] 100 mg PO DAILY Insulin Glargine,Hum.rec.anlog [Lantus Solostar] 14 unit SQ AC-BID Nystatin 100,000 Unit/ml Susp [Mycostatin Oral Susp] 10 ml PO QID Zolpidem [Ambien] 10 mg PO HS PRN #3 tab PRN Reason: Insomnia Discontinued Metoprolol Tartrate [Lopressor] 25 mg PO DAILY Levofloxacin [Levaquin] 500 mg PO DAILY #5 tab Albuterol Inhaler [Ventolin Hfa Inhaler] 1 - 2 puff INHALATION RT-Q6H PRN PRN Reason: Shortness Of Breath Or Wheezing INSULIN LISPRO (HumaLOG) [humaLOG] 14 unit SQ ACHS Discharge Medication List Cetirizine HCl 10 mg PO DAILY PRN 07/05/15 [History] Nitroglycerin Sl Tabs [Nitrostat] 0.4 mg SUBLINGUAL Q5M PRN 07/05/15 [History] Pravastatin Sodium [Pravachol] 80 mg PO HS 09/01/17 [History] Gabapentin [Neurontin] 600 mg PO BID 09/09/17 [History] Potassium Chloride ER [K-Dur 10] 10 meq PO DAILY 09/24/17 [History] metFORMIN HCL [Glucophage] 1,000 mg PO BID 09/24/17 [History] Aspirin EC [Ecotrin Low Dose] 81 mg PO DAILY 12/24/17 [History] Allopurinol [Zyloprim] 300 mg PO DAILY 01/26/18 [History] Gabapentin [Neurontin] 1,200 mg PO HS 01/26/18 [History] INSULIN LISPRO (humaLOG) [humaLOG] See Protocol SQ ACHS 01/26/18 [History] Insulin Glargine,Hum.rec.anlog [Lantus Solostar] 14 unit SQ AC-BID 01/26/18 [ History] Nystatin 100,000 Unit/ml Susp [Mycostatin Oral Susp] 10 ml PO QID 01/26/18 [ History] Omeprazole 40 mg PO BID 01/26/18 [History] Torsemide [Demadex] 100 mg PO DAILY 01/26/18 [History] Acetaminophen Tab [Tylenol] 500 mg PO Q6HR PRN tab 02/05/18 [Rx] INSULIN LISPRO (HumaLOG) [humaLOG] 0 unit SQ ACHS #1 vial 02/05/18 [Rx] Ipratropium-Albuterol Nebulize [Duoneb 0.5 mg-3 mg/3 ml Soln] 3 ml INHALATION RT -Q4H PRN ampul.neb 02/05/18 [Rx] Ipratropium-Albuterol Nebulize [Duoneb 0.5 mg-3 mg/3 ml Soln] 3 ml INHALATION RT -QID ampul.neb 02/05/18 [Rx] Menthol [Nice Cough Drops] 1 each MUCOUS MEM Q4H PRN lozenge 02/05/18 [Rx] Metoprolol Tartrate [Lopressor] 12.5 mg PO BID tab 02/05/18 [Rx] Tamsulosin [Flomax] 0.4 mg PO PC-BRKFST cap.er.24h 02/05/18 [Rx] Zolpidem [Ambien] 10 mg PO HS PRN #3 tab 02/05/18 [Rx] predniSONE 10 mg PO DIRECTED #30 tab 02/05/18 [Rx] Follow up Appointment(s)/Referral(s): Alberto Galvez MD [REFERRING] - 3 Days (While at subacute rehab) Sumit Dozier DO [Primary Care Provider] - 1 Week (After DC from subacute rehab) Cecilia Resendez MD [STAFF PHYSICIAN] - 02/16/18 1:30 pm Activity/Diet/Wound Care/Special Instructions: [facility] Antibx. as per infectious disease 4lNC O2 DIet; consistent carb no straws Accu-Cheks before meals and at bedtime Activity: As tolerated CBC, BMP in 3 days Discharge Disposition: TRANSFER TO SNF/F
[2018-02-05 15:42] VITALS: BP 105/63; PULSE 111; RESP 20; TEMP 97.5
--- NOTE | 2018-02-05 17:20 | PN ---
PROGRESS NOTE DATE OF SERVICE: 02/05/2018. REASON FOR FOLLOWUP: Pneumonia. INTERVAL HISTORY: The patient is currently afebrile. He seems to be breathing more comfortably. Denies having any chest pain, cough which is mostly dry in nature and decreased intensity. No nausea, vomiting. No abdominal pain. Did have swelling in the leg. He was given Lasix last night. He did mention he has to be up all night to go to the bathroom. EXAMINATION: Blood pressure is 133/82 with a pulse of 94, temperature 97.4. He is 97% on 4 L nasal cannula. General description is an elderly male up in the chair in no distress. RESPIRATORY SYSTEM: Unlabored breathing. Few fine crackles at bases. No wheeze. HEART: S1, S2. Regular rate and rhythm. ABDOMEN: Soft, no tenderness. LABS: Hemoglobin is 10, white count 6.4, BUN of 39, creatinine 0.90. Blood culture has been negative. DIAGNOSTIC IMPRESSION AND PLAN: Patient with difficulty breathing, which is likely multifactorial, likely component of pneumonia as he did have fever on admission, resolved. He received about 10 days of antibiotic that should be more than enough and course of oral Avelox on discharge because of his complicated history of 4 to 5 days and diuretics per admitting and cardiology team. Continue supportive care. MMODL / IJN: [id number] /
== END 2018-02-05 16:05 | DRG 871 ==
LOC: EC 12:56 → 6SEL 15:48 → 6ICU 01-27 04:36 → 5ONC 02-03 12:47
PROVIDERS: ADMIT Internal Medicine; ATTEND Internal Medicine
PROC: 5A09357 Assistance with Respiratory Ventilation, Less than 24 Consecutive Hours, Continuous Positive Airway Pressure (ICD-10-PCS; principal; 2018-01-26)
DX: A41.50 Gram-negative sepsis, unspecified (principal); J18.9 Pneumonia, unspecified organism; J96.21 Acute and chronic respiratory failure with hypoxia; R65.21 Severe sepsis with septic shock; E87.2 Acidosis; I13.0 Hypertensive heart and chronic kidney disease with heart failure and stage 1 through stage 4 chronic kidney disease, or unspecified chronic kidney disease; N17.9 Acute kidney failure, unspecified; I24.8 Other forms of acute ischemic heart disease; B02.9 Zoster without complications; Z85.01 Personal history of malignant neoplasm of esophagus; D64.9 Anemia, unspecified; D69.6 Thrombocytopenia, unspecified; E11.22 Type 2 diabetes mellitus with diabetic chronic kidney disease; E78.5 Hyperlipidemia, unspecified; E86.0 Dehydration; E11.42 Type 2 diabetes mellitus with diabetic polyneuropathy; Z79.4 Long term (current) use of insulin; I50.9 Heart failure, unspecified; I65.22 Occlusion and stenosis of left carotid artery; I71.2 Thoracic aortic aneurysm, without rupture; K21.0 Gastro-esophageal reflux disease with esophagitis; K22.70 Barrett's esophagus without dysplasia; M10.9 Gout, unspecified; M19.90 Unspecified osteoarthritis, unspecified site; N18.3 Chronic kidney disease, stage 3 (moderate); Y84.2 Radiological procedure and radiotherapy as the cause of abnormal reaction of the patient, or of later complication, without mention of misadventure at the time of the procedure; Z79.899 Other long term (current) drug therapy; Z80.9 Family history of malignant neoplasm, unspecified; Z82.49 Family history of ischemic heart disease and other diseases of the circulatory system; Z87.01 Personal history of pneumonia (recurrent); Z87.11 Personal history of peptic ulcer disease; Z87.442 Personal history of urinary calculi; Z88.0 Allergy status to penicillin; Z92.21 Personal history of antineoplastic chemotherapy; Z92.3 Personal history of irradiation; Z98.42 Cataract extraction status, left eye; Z98.41 Cataract extraction status, right eye; Z96.1 Presence of intraocular lens; Z91.040 Latex allergy status; Z79.82 Long term (current) use of aspirin
CPT/HCPCS: 36415; 36600; 71045; 71046; 71275; 74230; 80048; 80053; 80202; 81003; 82805; 83036; 83605; 83735; 83880; 84100; 84132; 84145; 84484; 85025; 85384; 85610; 85730; 86022; 86738; 87040; 87086; 93005; 93306; 93880; 94640; 94660; 96361; 96365; 96366; 96375; 99291

== ENCOUNTER → 2018-07-13 | Outpatient (CLI) | payer MEDICARE ==
--- NOTE | 2018-07-13 13:27 | CT ---
EXAMINATION TYPE: CT lumbar spine w con DATE OF EXAM: 07/13/2018 COMPARISON: Plain film radiographs of the lumbar spine 12/24/2017 HISTORY: Esophagus CA, low back pain CT DLP: 1000.7 mGycm CONTRAST: Unenhanced CT of the lumbar spine is performed with IV Contrast, patient injected with 100 mL of Isov ue 300. Contrast-enhanced CT of the lumbar spine was performed. Bone and soft tissue window settings are sub mitted as well as coronal and sagittal reconstructions. L1-L2: There is evidence of vacuum disc. No disc herniation or protrusion. Mild ventral spondylosis. Mild facet joint arthropathy. Mild loss of height involving the L2 vertebral segment which has progre ssed since 2018. Loss of height is estimated at 25%. L2-L3: There is evidence of vacuum disc. No disc herniation or protrusion. Mild ventral spondylosis. Mild facet joint arthropathy. L3-L4: There is evidence of vacuum disc. No disc herniation or protrusion. Mild ventral spondylosis. Mild facet joint arthropathy. Mild superior endplate loss of height of L4 of uncertain age and/or e tiology. No paraspinal hematoma. Mild posterior retropulsion measuring 4 mm. There is mild central st enosis at this level. L4-L5: There is evidence of vacuum disc. No disc herniation or protrusion. Mild ventral spondylosis. Mild facet joint arthropathy. Moderate circumferential disc bulge. Hypertrophy of the ligamentum fla vum and facet joint arthropathy resulting in moderate central stenosis. L5-S1: There is evidence of vacuum disc. No disc herniation or protrusion. Mild ventral spondylosis. Mild facet joint arthropathy. No paraspinal masses are identified. No bony destructive process identified. IMPRESSION: 1. Loss of vertebral body height involving L2 and L4 of uncertain age and/or etiology. No destructive process is seen. 2. Central stenosis as outlined above.
== END | disposition home or self-care (01) ==
LOC: RADCTMAIN 10:48
PROVIDERS: ATTEND Physical Medicine & Rehabilitation
DX: M48.061 Spinal stenosis, lumbar region without neurogenic claudication (principal)
CPT/HCPCS: 72132

== ENCOUNTER → 2018-07-13 | Outpatient (CLI) | payer MEDICARE ==
--- NOTE | 2018-07-13 13:14 | CT ---
EXAMINATION TYPE: CT ChestAbdPelvis w con DATE OF EXAM: 07/13/2018 COMPARISON: 02/01/2018 HISTORY: Esophagus CA, low back pain CT DLP: 1000.7 mGycm CONTRAST: CT scan of the chest, abdomen and pelvis is performed with Oral Contrast and with IV Contrast, patien t injected with 100 mL of Isovue 300. CT Chest: LUNGS: Patchy left lower lobe infiltrate. No pulmonary nodule or mass is detected. No pleural effusi on or CT evidence of interstitial lung disease. MEDIASTINUM: Esophagus is of normal caliber. No esophageal mass is identified. Thoracic aorta is mild ly aneurysmal at 4.2 cm and stable. The heart is not enlarged. No evidence for mediastinal mass or a denopathy. HILAR STRUCTURES: No evidence for mass. No hilar adenopathy is appreciated. OTHER: No significant abnormality. CONTRAST CT ABDOMEN AND PELVIS FINDINGS: LIVER/GB: No calcified gallstones. No space occupying hepatic lesion. Biliary tree is of normal ca liber. PANCREAS: No inflammation. No distinct mass. SPLEEN: No splenic enlargement. No lesion seen. ADRENALS: No nodule. No thickening. KIDNEYS/BLADDER: No hydronephrosis. No nephrolithiasis. No disctinct renal mass. BOWEL: Normal appendix. Normal bowel caliber. No inflammation. GENITAL ORGANS: No gross abnormality. LYMPH NODES: No greater than 1cm abdominal or pelvic lymph nodes are appreciated. AORTA: No significant abnormality. OSSEOUS STRUCTURES: No significant abnormality is seen. OTHER: No significant additional abnormality is seen. IMPRESSION: 1. No evidence for recurrent or metastatic disease. 2. Left lower lobe patchy density. 3. Descending thoracic aortic aneurysm at 4.2 cm.
== END | disposition home or self-care (01) ==
LOC: RADCTMAIN 10:42
PROVIDERS: ATTEND Internal Medicine Hematology & Oncology
DX: Z08 Encounter for follow-up examination after completed treatment for malignant neoplasm (principal); I71.2 Thoracic aortic aneurysm, without rupture; J98.4 Other disorders of lung; Z85.01 Personal history of malignant neoplasm of esophagus; Z91.040 Latex allergy status; Z88.0 Allergy status to penicillin
CPT/HCPCS: 82565; 84520; 71260; 74177; 36415; Q9967

== ENCOUNTER → 2018-08-03 | Outpatient (CLI) | payer MEDICARE ==
[2018-08-03 16:46] LABS: Anisocytosis Slight; Basophils % (A) 0 %; Eosinophils # (A) 0.5 k/uL (0-0.7); Eosinophils % (A) 7 %; HCT 38.3 % (39.0-53.0); Hypochromasia Slight; Lymphocytes # (A) 0.8 k/uL (1.0-4.8); Lymphocytes % (A) 12 %; MCH 27.5 pg (25.0-35.0); MCHC 31.3 g/dL (31.0-37.0); Mean Platelet Volume 7.2; Monocytes # (A) 0.4 k/uL (0-1.0); Monocytes % (A) 6 %; Neutrophils # (A) 4.8 k/uL (1.3-7.7); Neutrophils % (A) 70 %; Platelet Count 232 k/uL (150-450); RBC 4.36 m/uL (4.30-5.90); WBC 6.8 k/uL (3.8-10.6)
[2018-08-03 16:50] LABS: Appearance,Urine Clear (Clear); Bilirubin,Urine Negative (Negative); Blood,Urine Negative (Negative); Color,Urine Light Yellow; Glucose,Urine (UA) Negative (Negative); Ketones,Urine Negative (Negative); Leukocyte Esterase,Urine Negative (Negative); Nitrite,Urine Negative (Negative); Protein,Urine Negative (Negative); Specific Gravity,Urine 1.005 (1.001-1.035); Urobilinogen,Urine <2.0 mg/dL (<2.0)
[2018-08-03 16:54] LABS: Prothrombin Time 10.4 sec (9.0-12.0)
[2018-08-03 17:16] LABS: Calcium 9.6 mg/dL (8.4-10.2); Potassium 4.2 mmol/L (3.5-5.1)
--- NOTE | 2018-08-04 11:58 | XR ---
EXAMINATION TYPE: XR chest 2V DATE OF EXAM: 08/03/2018 COMPARISON: 02/01/2018 INDICATION: History of lung cancer TECHNIQUE: Frontal and lateral views of the chest are obtained. FINDINGS: The heart size is normal. The pulmonary vasculature is normal. There appears to be a mild infiltrate at the left base. Correlate for atelectasis. Mild pneumonia cou ld be considered. Suspicious masses are not identified. Hilar regions appear normal. Aortopulmonic wi ndow is unremarkable. Spondylosis is within the thoracic spine. IMPRESSION: 1. Suggestion of mild left basilar infiltrate. Correlate for atelectasis or pneumonia.
== END | disposition home or self-care (01) ==
LOC: RADXRMAIN 15:57
PROVIDERS: ATTEND Orthopaedic Surgery Orthopaedic Surgery of the Spine
DX: Z01.818 Encounter for other preprocedural examination (principal); M48.50XA Collapsed vertebra, not elsewhere classified, site unspecified, initial encounter for fracture
CPT/HCPCS: 71046; 80048; 81003; 85025; 85610; 85730; 86850; 86900; 86901; 93005

== ENCOUNTER 2018-08-12 06:14 | Day surgery (SDC) | payer MEDICARE ==
[2018-08-04 10:24] VITALS: BMI 27.8
[~2018-08-12 06:14] MED LIST changes: +BACITRACIN 50,000 UNIT, POLYMYXIN B 500,000 UNIT in SODIUM CHLORIDE 0.9% IRRIGATIO 1,00... IRRIGATION ONE; +DEXAMETHASONE SOD PHOSPHATE 10 MG/ML 1 ML VIAL IV ONE; +LIDOCAINE 1% 20 ML VIAL (10MG/ML) FOR IV START INTRADERMA PRN; +ONDANSETRON 4 MG/2 ML VIAL IVP ONE; +ceFAZolin IN SWFI 2 GM/20 ML SYRINGE IVP ONE
[2018-08-12 07:14] LABS: Glucose,Whole Blood 96 mg/dL (75-99)
[2018-08-12] MEDS ORDERED: PROPOFOL 10 MG/ML 20 ML VIAL IV ONE (07:27)
[2018-08-12] MEDS ORDERED: LIDOCAINE 1% INJ 10MG/ML (20 ML MDV) ONE (07:27)
[2018-08-12] MEDS ORDERED: ePHEDrine SULFATE/0.9% NACL/PF 50 MG/5 ML SYRINGE IV ONE (07:27)
[2018-08-12] MEDS ORDERED: PHENYLEPHRINE-0.9% NACL SYG 1 MG/10 ML SYRINGE ONE (07:27)
[2018-08-12] MEDS ORDERED: fentaNYL (PF) 50 MCG/ML 2 ML AMP ONE (07:27)
[2018-08-12] MEDS ORDERED: MIDAZOLAM 2 MG/2 ML VIAL ONE (07:27)
[2018-08-12] MEDS ORDERED: SUCCINYLCHOLINE CHLORIDE 100 MG/5 ML SYR IV ONE (07:27)
[2018-08-12] MEDS ORDERED: BUPIVACAIN-EPI 0.5%-1:200,000 30 ML VIAL SQ ONE ×2 (08:05)
[2018-08-12] MEDS ORDERED: IOPAMIDOL-370 50ML BTL MISCELLANE ONE (08:10)
[2018-08-12 08:57] VITALS: TEMP 97.3
[2018-08-12 09:03] VITALS: RESP 16
--- NOTE | 2018-08-12 09:12 | FL ---
EXAMINATION TYPE: FL guidance operating room, XR lumbar spine 1V DATE OF EXAM: 08/12/2018 CLINICAL HISTORY: Compression fracture. TECHNIQUE: Fluoroscopy. Limited intraoperative single view lumbar spine. COMPARISON: CT lumbar spine July 13, 2018. FINDINGS: Fluoroscopic guidance was provided during kyphoplasty procedure performed by Dr. Santacruz. A total of 1 minute 56 seconds of fluoroscopic time was utilized during the procedure and 5 spot intra operative images are acquired. Intraoperative images acquired show advancement of probe for kyphoplasty of mild compression fracture L2 level. IMPRESSION: As Above.
[2018-08-12 09:25] LABS: Glucose,Whole Blood 127 mg/dL (75-99)
[2018-08-12] MEDS ORDERED: ONDANSETRON 4 MG/2 ML VIAL IVP PRN (10:11)
[2018-08-12] MEDS ORDERED: HYDROmorphone 0.5 MG/0.5 ML SYRINGE IVP PRN ×2 (10:11)
[2018-08-12] MEDS ORDERED: BENZOCAINE/MENTHOL LOZENG 1 EACH LOZENGE MUCOUS MEM PRN (10:11)
[2018-08-12] MEDS ORDERED: KETOROLAC 30 MG/ML 1 ML VIAL IVP PRN (10:11)
[2018-08-12] MEDS ORDERED: IBUPROFEN 600 MG TAB PO PRN (10:11)
[2018-08-12] MEDS ORDERED: HYDROcodone/APAP 5-325MG 1 EACH TAB PO PRN ×2 (10:11)
[2018-08-12] MEDS ORDERED: NITROGLYCERIN SL TABS 0.4 MG TAB SUBLINGUAL PRN (10:13)
[2018-08-12] MEDS ORDERED: MENTHOL (NICE) LOZENGE MUCOUS MEM PRN (10:13)
--- NOTE | 2018-08-12 10:24 | P.OP ---
Date of Procedure: 08/12/18 Preoperative Diagnosis: Vertebral compression fractures L2 L3-L4, acute traumatic Incapacitating low back pain Postoperative Diagnosis: Same Anesthesia: GETA Pathology: other (Vertebral body specimen from L2, L3 and L4 sent separately in formalin to pathology) Condition: stable Disposition: PACU Description of Procedure: BRIEF OPERATIVE NOTE Preoperative Diagnosis: Vertebral compression fractures L2, L3, L4, traumatic subacute Postoperative Diagnosis: Same Procedure: Kyphoplasty L2, L3, L4 Vertebral body biopsy L2, L3, L4 Use of biplanar fluoroscopic guidance Surgeon: Dr. Santacruz Supervisory Historian: None Anesthesia: General anesthesia per Dr. José Estimated blood loss: Less than 40 mL Specimen: Vertebral body biopsy sent to pathology in formalin separately from L2 -L3 and L4 Complications: None apparent Components implanted: Bone cement at L2-L3 and L4 Disposition: To recovery room in good stable condition. OPERATIVE INDICATIONS The patient has been having issues in their back ever since sustaining an injury. He was found to have compression fractures at 3 levels L2-L3 and L4. All of these appear to be acute initially and subacute with treatment conservatively and they're causing him severe debility. The patient has been through conservative treatment. He is not having any improvement despite bracing and pain control and was having significant troubles with any sort of position and ambulation They attempted conservative care with bracing however they're not having any benefit despite brace use. They continue to have significant pain and debility due to their fracture. We discussed various treatment options including surgery, and the patient wishes to proceed with surgery We discussed the risk, patient's alternatives and benefits of surgery including but not limited to, risk of bleeding risk of infection, risk of need for further surgery, risk of decreased, loss of motion, loss of function, cement extravasation, nerve damage, paralysis, heart attack, blindness and . OPERATIVE SUMMARY After discussing all the risks, patient alternatives and benefits at length, the patient elected to proceed with surgical intervention, signed informed consent, and presented for their procedure. The patient was seen and examined in the preoperative holding area and the surgical site was marked. The patient was given antibiotics and brought to the operating room. The patient was sedated and intubated by anesthesia in standard fashion. The patient was positioned on to the operating room table in a prone position on the appropriate well-padded and well molded bilateral chest rolls. We were careful to pad any bony prominences and pressure points. We were careful to maintain the patient's cervical spine and good neutral alignment and position throughout. We used 2 C-arm machines to establish biplanar fluoroscopic guidance in AP and lateral positions. We were able to localize the fractures appropriately. The patient was prepped and draped in a normal standard fashion. An appropriate timeout and keystone protocol performed. We were able to proceed with the surgery. The local wound area was infiltrated with local anesthetic. An incision was made over the lateral aspect of the pedicle over the appropriate levels on the right at L2-L3 and L4 with a small 2 mm stab incision. Intraoperative fluoroscopy was taken which showed a marker at the appropriate level at each L2-L3 and L4. With the appropriate level positively confirmed, I was able to position a sharp trocar over the lateral aspect of the pedicle. As able to advance the trocar into the pedicle and into the posterior aspect of vertebral body being careful to avoid penetration cephalad caudad or medially. The trocar was placed appropriately into the posterior aspect of vertebral body at the appropriate levels. This was confirmed with C-arm guidance. With the trocar intact I was then able to take a bone biopsy with a biopsy punch or a bony drill. The biopsy specimen was passed off to be sent to pathology in formalin. I was able to get a core biopsy at L4 and then drill biopsies at L2 and L3. I had good position in the vertebral body and at the midline. I was then able to place the kyphoplasty balloon within the vertebral body at each level. The position was checked on C-arm. I was able to inflate the balloon under low pressure and visualization with C-arm. The balloon was well enclosed within the vertebral body. The cement was prepared. With the cement at appropriate working condition the balloons were deflated and removed. I was able to place bony cement with trocar with the cement delivery device under low pressure. It had good fill within the vertebral body at each level of L2-L3 and L4. There is no evidence of any extravasation of the cement posteriorly toward the canal. The cement was well contained at the appropriate levels. The cement was allowed to cure appropriately. The trochars removed and final images were taken on C-arm. This showed the cement at the appropriate levels at L2-3 and 4. We were able to proceed with closure. The wound was cleaned and dried and dressed with the appropriate dressing. The drapes were broken down. The patient was gently rolled back onto their hospital bed being careful to maintain their cervical spine and good neutral alignment and position. They were woken up by anesthesia, extubated, and brought to the recovery room in good stable condition. The patient will be admitted to the hospital for observation and for appropriate postoperative care, medical management and monitoring. We will continue to follow them closely about the postoperative course.
[2018-08-12 10:57] VITALS: BP 122/65; PULSE 80
[2018-08-12] MEDS ORDERED: oxyCODONE-APAP 7.5-325MG 1 EACH TAB PO SCH (16:00)
[2018-08-12] MEDS ORDERED: INSULIN GLARGINE 12 UNIT SQ SCH (17:30)
[2018-08-12] MEDS ORDERED: NON-FORMULARY DRUG (Omeprazole [Omeprazole] 40 MG) PO SCH (21:00)
[2018-08-12] MEDS ORDERED: MAGNESIUM OXIDE 400 MG TAB PO SCH (21:00)
[2018-08-12] MEDS ORDERED: POTASSIUM CHLORIDE ER 10 MEQ TAB.ER.PRT PO SCH (21:00)
[2018-08-12] MEDS ORDERED: ZOLPIDEM 10 MG TAB PO SCH (21:00)
[2018-08-12] MEDS ORDERED: PRAVASTATIN SODIUM 80 MG TAB PO SCH (21:00)
[2018-08-12] MEDS ORDERED: metFORMIN 500 MG TAB PO SCH (21:00)
[2018-08-12] MEDS ORDERED: GABAPENTIN 300 MG CAP PO SCH ×2 (21:00)
[2018-08-13] MEDS ORDERED: INSULIN GLARGINE SQ SCH (09:00)
[2018-08-13] MEDS ORDERED: ALLOPURINOL 300 MG TAB PO SCH (09:00)
[2018-08-13] MEDS ORDERED: TORSEMIDE 20 MG TAB PO SCH (09:00)
[2018-08-13] MEDS ORDERED: LORATADINE 10 MG TAB PO SCH (09:00)
[2018-08-13] MEDS ORDERED: ASPIRIN 81 MG PO SCH (09:00)
[2018-08-13] MEDS ORDERED: METOPROLOL TARTRATE 12.5 MG TAB PO SCH (09:00)
== END 2018-08-12 11:19 | disposition home or self-care (01) ==
LOC: OR 06:14
PROVIDERS: ATTEND Orthopaedic Surgery Orthopaedic Surgery of the Spine
DX: S32.020A Wedge compression fracture of second lumbar vertebra, initial encounter for closed fracture (principal); S32.030A Wedge compression fracture of third lumbar vertebra, initial encounter for closed fracture; S32.040A Wedge compression fracture of fourth lumbar vertebra, initial encounter for closed fracture; M51.16 Intervertebral disc disorders with radiculopathy, lumbar region; M48.062 Spinal stenosis, lumbar region with neurogenic claudication; M43.16 Spondylolisthesis, lumbar region; I13.0 Hypertensive heart and chronic kidney disease with heart failure and stage 1 through stage 4 chronic kidney disease, or unspecified chronic kidney disease; E11.22 Type 2 diabetes mellitus with diabetic chronic kidney disease; N18.3 Chronic kidney disease, stage 3 (moderate); I50.32 Chronic diastolic (congestive) heart failure; E78.2 Mixed hyperlipidemia; I35.1 Nonrheumatic aortic (valve) insufficiency; I65.22 Occlusion and stenosis of left carotid artery; E66.3 Overweight; Z68.28 Body mass index [BMI] 28.0-28.9, adult; I73.9 Peripheral vascular disease, unspecified; M1A.30X0 Chronic gout due to renal impairment, unspecified site, without tophus (tophi); E11.42 Type 2 diabetes mellitus with diabetic polyneuropathy; K21.9 Gastro-esophageal reflux disease without esophagitis; G47.00 Insomnia, unspecified; I25.10 Atherosclerotic heart disease of native coronary artery without angina pectoris; E55.9 Vitamin D deficiency, unspecified; K22.711 Barrett's esophagus with high grade dysplasia; D64.9 Anemia, unspecified; M19.90 Unspecified osteoarthritis, unspecified site; Z82.49 Family history of ischemic heart disease and other diseases of the circulatory system; Z85.01 Personal history of malignant neoplasm of esophagus; Z92.3 Personal history of irradiation; Z92.21 Personal history of antineoplastic chemotherapy; Z79.82 Long term (current) use of aspirin; Z79.4 Long term (current) use of insulin; Z79.891 Long term (current) use of opiate analgesic; Z79.899 Other long term (current) drug therapy; Z88.0 Allergy status to penicillin; Z91.040 Latex allergy status
CPT/HCPCS: 22514; 22515 ×2; 88342; 88307; 88311; 88341; 72020; C1713; J2250; J2405; J2001; J3010; J2370; J0330; J2704; J0690; Q9967; 86850; 86900; 86901

== ENCOUNTER → 2018-11-10 | Outpatient (CLI) | payer MEDICARE ==
[2018-11-04 16:01] VITALS: BMI 27.8
[2018-11-10 13:41] VITALS: BP 118/56; PULSE 81; RESP 18
--- NOTE | 2018-11-11 07:38 | P.PAINCN ---
History of Present Illness - Reason for Consult Consult date: 11/10/18 - History of Present Illness This is the initial consultation visit for this 83 years old male, with a chronic history of severe low back pain, started November 2017 after he fell on his back, and from that time on his started complaining of severe low back pain, and patient had computed tomography scan of the lumbar spine showed that he had multilevel compression fracture L2-L3 and L4, patient had kyphoplasty done by Dr. 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 drinking vanillia premier protein shakes daily am.hiatal hernia, kidney stones 40 years ago,pne 20 years ago, neuropathy, past stomach ulcers,"lt carotid 100% blkg, shingelles History of Any Multi-Drug Resistant Organisms: None Reported Past Surgical History: Appendectomy, Orthopedic Surgery Additional Past Surgical History / Comment(s): LILA shoulder rotator CUFF, ORIF LT FOOT thinks he has plate and screws, "esophagus radiofrequency ablation", lila cataracts-lens implants,kyphoplasty Past Anesthesia/Blood Transfusion Reactions: No Reported Reaction Additional Past Anesthesia/Blood Transfusion Reaction / Comm: . Smoking Status: Never smoker - Past Family History Mother Family Medical History: Cancer Additional Family Medical History / Comment(s): thyroid Father Family Medical History: Coronary Artery Disease (CAD) Additional Family Medical History / Comment(s): AT AGE 53 Medications and Allergies Home Medications Medication Instructions Recorded Confirmed Type Cetirizine HCl 10 mg PO DAILY 07/05/15 11/04/18 History Nitroglycerin Sl Tabs [Nitrostat] 0.4 mg SUBLINGUAL Q5M PRN 07/05/15 11/04/18 History Pravastatin Sodium [Pravachol] 80 mg PO HS 09/01/17 11/04/18 History Gabapentin [Neurontin] 600 mg PO BID 09/09/17 11/04/18 History Potassium Chloride ER [K-Dur 10] 10 meq PO BID 09/24/17 11/04/18 History metFORMIN HCL [Glucophage] 1,000 mg PO BID 09/24/17 11/04/18 History Aspirin EC [Ecotrin Low Dose] 81 mg PO DAILY 12/24/17 11/04/18 History Allopurinol [Zyloprim] 300 mg PO DAILY 01/26/18 11/04/18 History Gabapentin [Neurontin] 1,200 mg PO HS 01/26/18 11/04/18 History Insulin Glargine,Hum.rec.anlog 12 unit SQ QAM 01/26/18 11/04/18 History [Lantus Solostar] Omeprazole 40 mg PO BID 01/26/18 11/04/18 History Torsemide [Demadex] 100 mg PO DAILY 01/26/18 11/04/18 History Menthol [Nice Cough Drops] 1 each MUCOUS MEM Q4H PRN lozenge 02/05/18 11/04/18 Rx INSULIN LISPRO (HumaLOG) [humaLOG] 0 unit SQ ACHS PRN 08/04/18 11/04/18 History Insulin Glargine [Lantus] 12 unit SQ W/SUPPER 08/04/18 11/04/18 History Magnesium Oxide 400 mg PO BID 08/04/18 11/04/18 History Metoprolol Tartrate [Lopressor] 12.5 mg PO QAM 08/04/18 11/04/18 History Zolpidem [Ambien] 10 mg PO HS 08/04/18 11/04/18 History oxyCODONE HCL/ACETAMINOPHEN 1 tab PO TID 08/04/18 11/04/18 History [Percocet 7.5-325 mg] Allergies Allergy/AdvReac Type Severity Reaction Status Date / Time latex Allergy Rash/Hives Verified 11/04/18 15:53 penicillin G Allergy Unknown Verified 11/04/18 15:53 Physical Exam Vitals: Vital Signs Pulse Resp BP Pulse Ox 11/10/18 13:30 81 18 118/56 98 Social history : not smoker , NO ETOH , NO Illegal drugs u : Review of Systems : - Constitutional : no chills , no fever , no night sweats , - Ears : no ear discharge , no change in hearing -Nose, Mouth ,Throat ; no bleeding gums, no sore throat , no epistaxis , -Cardiovascular : History of coronary artery disease, hypertension, hyperlipidemia -Respiratory : Denies cough , no dyspnea , no hemoptysis -Gastrointestinal : no change in bowel habits , no coffee-ground emesis . -Genitourinary : No hematuria , no discharge , no incontinence, -Musculoskeletal : ++ gait dysfunction , report low back pain , - Neurological : no ataxia , no tremor , no sezure , -Psychatric : no suicidal ideation no hallucination - Endocrine : no cold intolerence , no polyuria , no polydypsia ,(history of diabetes0 -Hematologic : no easy bleeding , no easy brusing , -Allergic / immm : no angioedema , no wheezing ,no allergic rhinitis -Integumentary : no brttle nails , no change hair / nails , no foot/leg ulcers . Physical Examinations : -Constitutional : Cooperative , not in acute distress . -HEENT : nech ; supple , no Lymphadenopathy , no Thyromegaly , :eyes : no icterus, no photophobia . ENT : normal oropharynx , no Thrush - Respiratory : Chest clear to auscultations Bilaterally , no wheezing . - Cardiovascular : regular rate and rhythem , S1 , S2 , no S3 , no S4. - Gastrointestina l: abdomen soft no tenderness , no organomegally . - Genitourinary : Defferred . -Integumentary : No cellulitis , no ulcers , normal skin turgor , no cyanotic . - neurologic : Cranial nerve II to XII intact , no focal neurological deffecit -psychatric : alert , oriented X 3 , appropriate affect , intact judgment and insight . -Lymphatic : no Lymphadenopathy. - musculoskeltal: Ambulate using a walker Lumber spine [facility] lower extremities ,thigh and legs 4/5 Right side , 4/5 Left side deep tendon reflexes : normal Knee Jerk , normal ankle Jerk positive lumber facet Loading Test Range of motion of the lumbar spine Flexion 30 degrees, extension 10 degrees strait leg raising test , positive at 30 degree Fabere test positive RT and positive LT . tenderness over the sacroiliac joint on the right side, and on the left side Severe tenderness over the right side iliac crest, at the location of cluneal nerve Results Comments: [facility] lumbar [facility] at [facility] 07/15/2018= compression fracture L2-L3 and L4 and T12, multilevel lumbar bulging disc disease at L3 4 and L4 5, and multilevel lumbar facet arthropathy L2 3 L3 4 and L4 5 and L5-S1 Assessment and Plan Plan: Assessment and plan= chronic severe low back pain secondary to multifactorial causes 1-compression fracture of the lumbar spine. 2-lumbar degenerative disc disease. 3-lumbar spondylosis with lumbar facet arthropathy. 4-right cluneal nerve entrapment/neuropathy. Patient had short-term benefit from lumbar epidural steroid injection done previously at different institutions, patient would be good candidate to have diagnostic medial branch block lumbar area at L34/L4 5/L5-S1, and at the same time we can do right cluneal nerve block , we'll do the procedure twice and if he had a good result and we will proceed with the RFA. Also patient could benefit from Mobic 7.5 mg daily. She should continue his current medication Neurontin as prescribed by his primary care Time with Patient: Greater than 30 PQRS Measure Charge Sheet Measure #130: Documentation of Current Meds in Medical Chart: Patient's medications documented in chart Measure #226: Tobacco Use: Screen & Cessation Intervention: Pt not a tobacco user Measure #111: Pneumonia Vaccination: Pneumococcal vaccine administered or previ ously received Measure #47: Advance Care Plan: Advance care planning discussed & documented, pt chose/unable to give Measure #412: Opioid Treatment Agreement: No documentation of signed opioid treatment agreement Measure #408: Opioid Therapy Follow-up Evaluation: Patient had NO f/u eval minimum every 3 months during opioid therapy Measure #317: Preventitive Care & Scrn High Bld Press & F/U: Normal blood pressure, f/u not required Measure #128: Body Mass Index (BMI) Screening & Follow-up: BMI documented ABOVE normal parameters - f/u documented Measure #131: Pain Assessment & Follow-up: Pain positive & plan documented, Follow-up scheduled Measure #431: Unhealthy Alcohol Use Preventative Care & Scrn: Patient not identified as an unhealthy alcohol user PQRS Narrative: Smoking Status Never smoker Do You Want the Pneumonia Yes Vaccine AT THIS TIME? Blood Pressure 118/56 Pain Intensity [Lower Back] 8 Scale Used Numeric (1 - 10) Hx Alcohol Use (MH) Yes Home Medications: Ambulatory Orders Cetirizine HCl 10 mg PO DAILY 07/05/15 Nitroglycerin Sl Tabs [Nitrostat] 0.4 mg SUBLINGUAL Q5M PRN 07/05/15 Pravastatin Sodium [Pravachol] 80 mg PO HS 09/01/17 Gabapentin [Neurontin] 600 mg PO BID 09/09/17 Potassium Chloride ER [K-Dur 10] 10 meq PO BID 09/24/17 metFORMIN HCL [Glucophage] 1,000 mg PO BID 09/24/17 Aspirin EC [Ecotrin Low Dose] 81 mg PO DAILY 12/24/17 Allopurinol [Zyloprim] 300 mg PO DAILY 01/26/18 Gabapentin [Neurontin] 1,200 mg PO HS 01/26/18 Insulin Glargine,Hum.rec.anlog [Lantus Solostar] 12 unit SQ QAM 01/26/18 Omeprazole 40 mg PO BID 01/26/18 Torsemide [Demadex] 100 mg PO DAILY 01/26/18 Menthol [Nice Cough Drops] 1 each MUCOUS MEM Q4H PRN lozenge 02/05/18 INSULIN LISPRO (HumaLOG) [humaLOG] 0 unit SQ ACHS PRN 08/04/18 Insulin Glargine [Lantus] 12 unit SQ W/SUPPER 08/04/18 Magnesium Oxide 400 mg PO BID 08/04/18 Metoprolol Tartrate [Lopressor] 12.5 mg PO QAM 08/04/18 Zolpidem [Ambien] 10 mg PO HS 08/04/18 oxyCODONE HCL/ACETAMINOPHEN [Percocet 7.5-325 mg] 1 tab PO TID 08/04/18
== END ==
LOC: PNWHC3 12:51
PROVIDERS: ATTEND Specialist
DX: S32.009A Unspecified fracture of unspecified lumbar vertebra, initial encounter for closed fracture (principal); M51.36 Other intervertebral disc degeneration, lumbar region; M47.816 Spondylosis without myelopathy or radiculopathy, lumbar region; M46.96 Unspecified inflammatory spondylopathy, lumbar region; G58.8 Other specified mononeuropathies; E11.9 Type 2 diabetes mellitus without complications; K21.9 Gastro-esophageal reflux disease without esophagitis; E78.5 Hyperlipidemia, unspecified; I10 Essential (primary) hypertension; M19.90 Unspecified osteoarthritis, unspecified site; N28.9 Disorder of kidney and ureter, unspecified; J18.9 Pneumonia, unspecified organism; Z79.899 Other long term (current) drug therapy; Z79.82 Long term (current) use of aspirin; Z79.4 Long term (current) use of insulin; Z79.891 Long term (current) use of opiate analgesic; Z88.0 Allergy status to penicillin; Z91.040 Latex allergy status
CPT/HCPCS: 99211

== ENCOUNTER 2018-11-22 07:51 | Day surgery (SDC) | payer MEDICARE ==
[2018-11-18 08:48] VITALS: BMI 27.8
[2018-11-22] MEDS ORDERED: LIDOCAINE 1% 20 ML VIAL (10MG/ML) FOR IV START INTRADERMA ONE (08:30)
[2018-11-22 08:47] VITALS: RESP 18; TEMP 97.8
[2018-11-22] MEDS ORDERED: LACTATED RINGERS 1,000 ML IV ONE (08:47)
[2018-11-22] MEDS ORDERED: LACTATED RINGERS 1,000 ML IV SCH (09:00)
[2018-11-22 09:05] LABS: Glucose,Whole Blood 153 mg/dL (75-99)
--- NOTE | 2018-11-22 09:05 | P.PCN ---
Date of Procedure: 11/22/18 Surgeon: Juanjose Matos Pathology: none sent Condition: stable Disposition: PACU Description of Procedure: PREOPERATIVE DIAGNOSIS : 1- Lumbar spondylosis with Facet Arthropathy without myelopathy . 2- Lumber degenerative disc disease POSTOPERATIVE DIAGNOSIS: 1- Lumbar spondylosis with Facet Arthropathy without myelopathy . 2- Lumber degenerative disc disease PROCEDURE: Diagnostic bilateral L3 -4 , L4 -5 , and L5-S1 medial branch block under fluoroscopy,Cluneal nerve block under fluoroscopic guidance on the right side ANESTHESIA: Local with 1% lidocaine; IV moderate conscious sedation with Versed, and fentanyl . EBL: Negligible COMPLICATION: None. PROCEDURE INDICATION: Chronic low back pain secondary to Facet arthropathy unresponsive to conservative treatment. PROCEDURE DESCRIPTION: the patient was seen and identified in the preop holding area , risks and benefits and possible complications of the procedure and alternatives were discussed with the patient, and the patient agreed to proceed with the procedure and signed the consent. IV was started and vital signs monitored during the procedure and fluoroscopy was used to maximize the benefit and accuracy of the needle placement, sedation was given to decrease patient anxiety, patient was taken to the procedure room and placed in prone position vital signs monitored. The patient was brought into the procedure room and placed in prone position. Skin was prepped with Chloraprep and draped in a sterile manner. Lidocaine 1% was used to numb the skin up at the target points that were chosen as follows: at the L5-S1 level which corresponds to the dorsal ramus of L5 the target points were at the superior medial aspect of the sacral ala on each side of the spine on the AP view of fluoroscopy, and for the L3 and L4 medial branches the target points were the connection between the transverse process and the superior to go process of L4 and L5 respectively on the oblique views of fluoroscopy. I used 22-gauge 3-1/2 inch Quincke spinal needles for this procedure and after cont acting bone at the target points mentioned above I injected 1 mL of a mixture of Kenalog 20 mg +5 MLS of ropivacaine 0.5% PF . Then I turned my attention into doing the right clunealnerve block for diagnosis of clunial nerve entrapment syndrome. Skin was prepped with DuraPrep and draped in a sterile manner then the right pelvic rim was identified , lateral to the posterior superior iliac spine, but I then used 3-1/2 inch 22-gauge needle to contact bone in this area and infiltrated 5 MLS of ropivacaine 0.5% in this area. Patient tolerated procedure well. At the end of the procedure the needles removed and a bandage applied after the skin was cleaned the cleaning solution. patient was then taken to the recovery room in stable condition and monitored in the recovery room for 20-30 minutes and discharged home in stable condition after discharge criteria met .
[2018-11-22 09:48] VITALS: BP 118/68; PULSE 71
--- NOTE | 2018-11-22 10:14 | FL ---
EXAMINATION TYPE: FL guided pain mgmt statistic DATE OF EXAM: 11/22/2018 CLINICAL HISTORY: Low back pain. TECHNIQUE: Fluoroscopy. COMPARISON: None. FINDINGS: Fluoroscopic guidance was provided during pain relief procedure performed by Dr. Matos . A total of 10 seconds of fluoroscopic time was utilized during the procedure and 3 spot images are acquired. Images acquired shows needle localization at multiple levels of the lumbar spine. IMPRESSION: As Above.
== END 2018-11-22 10:05 | disposition home or self-care (01) ==
LOC: ORPAIN 07:51
PROVIDERS: ATTEND Anesthesiology
DX: G89.29 Other chronic pain (principal); M47.816 Spondylosis without myelopathy or radiculopathy, lumbar region; M51.36 Other intervertebral disc degeneration, lumbar region; S32.009A Unspecified fracture of unspecified lumbar vertebra, initial encounter for closed fracture; W18.30XA Fall on same level, unspecified, initial encounter; K21.9 Gastro-esophageal reflux disease without esophagitis; E78.5 Hyperlipidemia, unspecified; I10 Essential (primary) hypertension; E11.40 Type 2 diabetes mellitus with diabetic neuropathy, unspecified; M19.90 Unspecified osteoarthritis, unspecified site; Z92.21 Personal history of antineoplastic chemotherapy; Z92.3 Personal history of irradiation; C15.9 Malignant neoplasm of esophagus, unspecified; Z87.01 Personal history of pneumonia (recurrent); Z87.442 Personal history of urinary calculi; Z79.82 Long term (current) use of aspirin; Z79.4 Long term (current) use of insulin; Z79.891 Long term (current) use of opiate analgesic; Z79.899 Other long term (current) drug therapy; Z88.0 Allergy status to penicillin; Z91.040 Latex allergy status
CPT/HCPCS: 64450; 64493; 64494; 64495; J2250; J3301; J3010; 99152

== ENCOUNTER 2018-12-06 08:48 | Day surgery (SDC) | payer MEDICARE ==
[2018-12-01 13:16] VITALS: BMI 27.8
[~2018-12-06 08:48] MED LIST changes: -BACITRACIN 50,000 UNIT, POLYMYXIN B 500,000 UNIT in SODIUM CHLORIDE 0.9% IRRIGATIO 1,00... IRRIGATION ONE; -DEXAMETHASONE SOD PHOSPHATE 10 MG/ML 1 ML VIAL IV ONE; -LIDOCAINE 1% 20 ML VIAL (10MG/ML) FOR IV START INTRADERMA PRN; -ONDANSETRON 4 MG/2 ML VIAL IVP ONE; -ceFAZolin IN SWFI 2 GM/20 ML SYRINGE IVP ONE
[2018-12-06 09:25] VITALS: RESP 18; TEMP 97.6
[2018-12-06 09:25] LABS: Glucose,Whole Blood 121 mg/dL (75-99)
[2018-12-06] MEDS ORDERED: LIDOCAINE 1% 20 ML VIAL (10MG/ML) FOR IV START INTRADERMA ONE (09:29)
--- NOTE | 2018-12-06 10:00 | P.PCN ---
Date of Procedure: 12/06/18 Procedure(s) Performed: PREOPERATIVE DIAGNOSIS : 1- Lumbar spondylosis with Facet Arthropathy without myelopathy . 2- Lumber degenerative disc disease. 3-right cluneal nerve neuralgia POSTOPERATIVE DIAGNOSIS: Same as preop diagnosis PROCEDURE: Diagnostic bilateral L3 -4 , L4 -5 , and L5-S1 medial branch block under fluoroscopy ANESTHESIA: Local with Ropivacain 0.5 % 6 ml , moderate sedation with intravenous Versed 2 mg and Fentanyl 100 mcg. EBL: Minimal COMPLICATION: None. IV FLUIDS: 100 mL of normal saline. PROCEDURE INDICATION: Chronic low back pain secondary to Facet arthropathy unresponsive to conservative treatment. PROCEDURE DESCRIPTION: the patient was seen and identified in the preop holding area , risks and benefits and possible complications of the procedure and alternative were discussed with the patient, and the patient agreed to proceed with the procedure and signed the consent IV was started and vital signs monitored during the procedure and fluoroscopy was used to maximize the benefit and accuracy of the needle placement, and sedation was given to decrease patient anxiety, patient was taken to the procedure room and placed in prone position vital signs monitored in the back prepped with chlorhexidine X3 then under strict sterile technique using a right oblique fluoroscopy ,the junction of the transverse process and the superior articulating process of the right L3- 4 , L4- 5, and L5-S1 vertebra which corresponding to the fluoroscopy image of the eye of the Juancarlos dog on the block side for the medial branches and subsequently , after local infiltration of skin and subcu tissuies with Ropivacaine 0.5 % , one mL at each level ,then 22-gauge Quincke-type needles , 3 needle was used , each one of them placed at the junction of the base of the transverse process and the superior articular process at the appropriate level, and the needle was advanced until the periosteum contacted, needle placement confirmed with AP oblique and lateral view and after appropriate needle placement confirmed, and after negative aspiration for heme and CSF and there was no paresthesia 1-1/2 mL of Ropivacaine 0.5% mixed with 20 mg Depo-Medrol, then half mL injected at each level after negative aspiration the needle subsequently removed and the same procedure repeated for the left side at left side at L3-4, L4- 5 and L5-S1 levels. At the end of the procedure and the needles removed and a bandage applied after the skin was cleaned the cleaning solution patient taken to recovery room in stable condition and monitors in the recovery room for 20-30 minutes and discharged home in stable condition after discharge criteria met and patient will follow up with the pain clinic in 2-4 weeks
[2018-12-06] MEDS ORDERED: IV FLUID CONTINUATION 700 ML IV ONE (10:09)
[2018-12-06 10:45] VITALS: BP 142/77; PULSE 66
--- NOTE | 2018-12-06 12:05 | FL ---
EXAMINATION TYPE: FL guided pain mgmt statistic DATE OF EXAM: 12/06/2018 CLINICAL HISTORY: Low back pain. TECHNIQUE: Fluoroscopy. COMPARISON: None. FINDINGS: Fluoroscopic guidance was provided during pain relief procedure performed by Dr. Cottrell . A total of 10 seconds of fluoroscopic time was utilized during the procedure and 4 spot images are acquired. Images acquired shows needle localization at multiple levels in the lumbar spine. IMPRESSION: As Above.
== END 2018-12-06 10:45 | disposition home or self-care (01) ==
LOC: ORPAIN 08:48
PROVIDERS: ATTEND Specialist
DX: G89.29 Other chronic pain (principal); M47.816 Spondylosis without myelopathy or radiculopathy, lumbar region; M51.36 Other intervertebral disc degeneration, lumbar region; M79.2 Neuralgia and neuritis, unspecified; Z88.0 Allergy status to penicillin; Z91.040 Latex allergy status; I10 Essential (primary) hypertension; E11.9 Type 2 diabetes mellitus without complications
CPT/HCPCS: 64493; 64494; 64495; J2250; J1030; J3010; 99152

== ENCOUNTER → 2018-12-22 | Outpatient (CLI) | payer MEDICARE ==
[2018-12-22 12:00] VITALS: BP 137/70; PULSE 61; RESP 18
--- NOTE | 2018-12-22 15:24 | P.PAINPG ---
Subjective Progress Note Date: 12/22/18 This is an 83 years old male, with a chronic history of severe low back pain, he was seen as an initial consultation in October 2018. His pain started November 2017 after he fell on his back, and from that time on his started complaining of severe low back pain, and patient had computed tomography scan of the lumbar spine showed that he had multilevel compression fracture L2-L3 and L4, patient had kyphoplasty done by Dr. Santacruz, and he had no benefit from it, he continued to have severe low back pain. He underwent bilateral L3-4, L4-5, L5-S1 medial branch blocks 2 on 11/22/2018 and 12/06/2018. He reports 50% relief of pain from these procedures. He reports that his pain is worse on his right side. He would like to proceed with radiofrequency ablation. He also continues to go to aqua therapy with modest benefit. He is also using Mobic could to help with the pain with some benefit. Physical Exam Vitals: Reviewed in EMR Physical Examinations : GENERAL: Well appearing, in no acute distress PSYCH: Mood and affect is appropriate. Awake, alert, and oriented SKIN: Skin color, texture, turgor normal, no rashes or lesions HEENT: Normocephalic, atraumatic. EOM intact CV: No pedal edema RESP: Respirations are unlabored, no audible wheezing GI: Abdomen non-distended MUSCULOSKELETAL: Bilateral upper and lower extremity strength is normal and symmetric. No atrophy or tone abnormalities are noted. Lumbar spine: While standing, patient remains flexed about 20 and has significant pain on attempted lumbar extension. Straight leg raising in the sitting position is negative for radicular pain. Significant pain to palpation over the lumbar spine and paraspinous muscles bilaterally in the lower lumbar region. Positive for pain with facet loading and back extension/rotation. Restricted lumbar flexion and extension Buttocks: No pain to palpation over the PSIS, sacroiliac joint maneuvers are negative for pain. Extremities: Peripheral joint ROM is full and pain free without obvious instability or laxity in all four extremities. No edema or skin discolorations noted. Gait: Gait is slow, antalgic, patient is stooping forward. For the most part he ambulates with a 4 point walker which is present in the room today. NEUR: No loss of sensation is noted. Results Comments: MRI of the lumbar spine done at [facility] 07/15/2018= compression fracture L2-L3 and L4 and T12, multilevel lumbar bulging disc disease at L3 4 and L4 5, and multilevel lumbar facet arthropathy L2 3 L3 4 and L4 5 and L5-S1 Assessment and Plan Plan: Assessment and plan= chronic severe low back pain secondary to multifactorial causes 1-compression fracture of the lumbar spine. 2-lumbar degenerative disc disease. 3-lumbar spondylosis with lumbar facet arthropathy. 4-right cluneal nerve entrapment/neuropathy. Patient reports 50% pain relief from diagnostic medial branch blocks, we will proceed with radiofrequency ablation. We will start with the right side as this is his worst side. Prescription for Mobic refilled today. Patient is interested in physical therapy and a prescription was provided today for lumbar stretching and strengthening, core strengthening. Patient was counseled on importance of home exercise program. Objective - Vital Signs Vital signs: Vital Signs Temp Pulse 61 12/22/18 11:53 Resp 18 12/22/18 11:53 BP 137/70 12/22/18 11:53 Pulse Ox 99 12/22/18 11:53 Intake & Output 12/21/18 12/22/18 12/22/18 18:59 06:59 18:59 Weight 81.647 kg PQRS Measure Charge Sheet Measure #130: Documentation of Current Meds in Medical Chart: Patient's medica tions documented in chart Measure #226: Tobacco Use: Screen & Cessation Intervention: Pt not a tobacco user Measure #111: Pneumonia Vaccination: Pneumococcal vaccine administered or previously received Measure #47: Advance Care Plan: Advance care planning discussed & documented, pt chose/unable to give Measure #412: Opioid Treatment Agreement: No documentation of signed opioid treatment agreement Measure #317: Preventitive Care & Scrn High Bld Press & F/U: Normal blood p ressure, f/u not required Measure #128: Body Mass Index (BMI) Screening & Follow-up: BMI documented within normal parameters Measure #131: Pain Assessment & Follow-up: Pain positive & plan documented, Follow-up scheduled Measure #431: Unhealthy Alcohol Use Preventative Care & Scrn: Patient not identified as an unhealthy alcohol user PQRS Narrative: Smoking Status Never smoker Blood Pressure 137/70 Pain Intensity [Right Lower 4 Buttock] Scale Used Numeric (1 - 10) Hx Alcohol Use (MH) Yes Home Medications: Ambulatory Orders Cetirizine HCl 10 mg PO DAILY 07/05/15 Nitroglycerin Sl Tabs [Nitrostat] 0.4 mg SUBLINGUAL Q5M PRN 07/05/15 Pravastatin Sodium [Pravachol] 80 mg PO HS 09/01/17 Gabapentin [Neurontin] 600 mg PO 0800,1800 09/09/17 Potassium Chloride ER [K-Dur 10] 10 meq PO BID 09/24/17 metFORMIN HCL [Glucophage] 1,000 mg PO BID 09/24/17 Aspirin EC [Ecotrin Low Dose] 81 mg PO DAILY 12/24/17 Allopurinol [Zyloprim] 300 mg PO DAILY 01/26/18 Gabapentin [Neurontin] 1,200 mg PO HS 01/26/18 Omeprazole 40 mg PO BID 01/26/18 Torsemide [Demadex] 100 mg PO DAILY 01/26/18 Menthol [Nice Cough Drops] 1 each MUCOUS MEM Q4H PRN lozenge 02/05/18 INSULIN LISPRO (HumaLOG) [humaLOG] 0 unit SQ TID-W/MEALS PRN 08/04/18 Magnesium Oxide 400 mg PO BID 08/04/18 Metoprolol Tartrate [Lopressor] 12.5 mg PO QAM 08/04/18 Zolpidem [Ambien] 10 mg PO HS 08/04/18 INSULIN LISPRO (humaLOG) [humaLOG] 0 units SQ ACHS PRN 12/01/18 Insulin Glargine,Hum.rec.anlog [Lantus Solostar] 12 unit SQ [id number] 12/01/18 Insulin Glargine,Hum.rec.anlog [Lantus Solostar] 12 unit SQ W/SUPPER 12/01/18 Meloxicam [Mobic] 7.5 mg PO DAILY #60 tab 12/22/18 Controlled Substance Measures - Controlled Substance Measures Is patient prescribed a controlled substance at discharge?: No
== END | disposition home or self-care (01) ==
LOC: PNWHC3 11:42
PROVIDERS: ATTEND Anesthesiology
DX: G89.29 Other chronic pain (principal); M48.56XD Collapsed vertebra, not elsewhere classified, lumbar region, subsequent encounter for fracture with routine healing; M51.36 Other intervertebral disc degeneration, lumbar region; M47.816 Spondylosis without myelopathy or radiculopathy, lumbar region; M46.96 Unspecified inflammatory spondylopathy, lumbar region; G58.8 Other specified mononeuropathies; G62.9 Polyneuropathy, unspecified
CPT/HCPCS: 99211

== ENCOUNTER 2019-01-05 06:49 | Day surgery (SDC) | payer MEDICARE ==
[2019-01-03 15:30] VITALS: BMI 27.8
[2019-01-05 07:32] VITALS: TEMP 97.6
[2019-01-05] MEDS ORDERED: LACTATED RINGERS 1,000 ML IV ONE (07:32)
[2019-01-05] MEDS ORDERED: LIDOCAINE 1% 20 ML VIAL (10MG/ML) FOR IV START INTRADERMA ONE (07:33)
[2019-01-05 07:39] LABS: Glucose,Whole Blood 146 mg/dL (75-99)
--- NOTE | 2019-01-05 08:45 | P.PCN ---
Date of Procedure: 01/05/19 Surgeon: Juanjose Matos Pathology: none sent Condition: stable Disposition: PACU Description of Procedure: Lumbar MBB Radiofrequency PREOPERATIVE DIAGNOSIS: Lumbar spondylosis without myelopathy POSTOPERATIVE DIAGNOSIS: Lumbar spondylosis without myelopathy PROCEDURES : Right Radiofrequency thermocoagulation L3-L4, L4-L5, and L5-S1 medial branch, with fluoroscopic guidance ANESTHESIA: IV moderate conscious sedation with versed and fentanyl and local infiltration with lidocaine 1% 5 ml EBL: Minimal PROCEDURE INDICATION: The patient with low back pain secondary to lumbar facet arthropathy who had more than 50% relief of her pain with previous diagnostic lumbar medial branch block with bupivacaine. PROCEDURE DESCRIPTION / TECHNIQUE: The patient was seen and identified in the preoperative area. Risks, benefits, complications, including but not limited to risk of infection ,bleeding , allergic reactions to the medications and no complete pain relief , and alternatives were discussed with the patient, the patient agreed to proceed with the procedure and signed the consent. IV was started. Vital signs remained stable throughout the procedure. Patient was taken to the OR and time out was completed. The patient was placed in the prone position on the procedure table. The lumber area was prepped and draped in the usual sterile fashion. . Vital signs were closely monitored during the procedure .IV sedation was used during the procedure to decrease patients anxiety. The target points were identified as follows: For the L5-S1 level which corresponds to the dorsal ramus of L5 the target point was at the superior medial aspect of the sacral ala on the Rt side of the spine on the AP view of fluoroscopy and for the L2, L3, and L4 medial branches the target points were at the connection between the transverse process and the superior articular process of L3, L4, and L5 vertebra respectively on the Rt oblique view of fluoroscopy. skin was marked, and localized with 1% lidocaineat these points. Subsequently, an 18 -yy radiofrequency needles with a 10-mm curved active tips were advanced guided by fluoroscopy to each of the target points mentioned above in a superior medial direction to get the active tips as parallel as possible to the medial branches tracks. AP, oblique, and lateral views of fluoroscopy were used to verify needle tips position. Each level then underwent motor testing at 2.5 Hz and 0 to 3 volt with local stimulation, but no radicular symptoms down the legs. Thereafter radiofrequency thermocoagulation at 80 degrees celsius for 90 seconds after injecting 1 ml of PF Marcaine 0.5%(3 mls) with 20 mg of Kenalog. At the end of the procedure, the skin was cleansed and bandages were applied. COMPLICATIONS: No acute complications. DISPOSITION / PLANS: The patient was placed in a supine position and transferred to the recovery area in a stable condition for observation and was discharged from the recovery room after meeting discharge criteria. Home disc harge instructions given to the patient by the staff. The patient was reexamined prior to discharge. The patient will schedule a follow up in the clinic in 2-4 weeks.
[2019-01-05] MEDS ORDERED: IV FLUID CONTINUATION 1,000 ML IV ONE (08:50)
--- NOTE | 2019-01-05 08:55 | FL ---
EXAMINATION TYPE: FL guided pain mgmt statistic DATE OF EXAM: 01/05/2019 CLINICAL HISTORY: Low back pain. TECHNIQUE: Fluoroscopy. COMPARISON: None. FINDINGS: Fluoroscopic guidance was provided during pain relief procedure performed by Dr. Matos . A total of 14 seconds of fluoroscopic time was utilized during the procedure and four spot images a re acquired. Images acquired shows needle localization at several levels in the lumbar spine, multil evel vertebroplasty is incidentally noted. IMPRESSION: As Above.
[2019-01-05 08:58] VITALS: RESP 16
[2019-01-05 09:11] VITALS: BP 141/65; PULSE 66
== END 2019-01-05 09:25 | disposition home or self-care (01) ==
LOC: ORPAIN 06:49
PROVIDERS: ATTEND Anesthesiology
DX: G89.29 Other chronic pain (principal); M47.816 Spondylosis without myelopathy or radiculopathy, lumbar region; M51.26 Other intervertebral disc displacement, lumbar region; M51.36 Other intervertebral disc degeneration, lumbar region; G58.8 Other specified mononeuropathies; S32.029A Unspecified fracture of second lumbar vertebra, initial encounter for closed fracture; S32.039A Unspecified fracture of third lumbar vertebra, initial encounter for closed fracture; S32.049A Unspecified fracture of fourth lumbar vertebra, initial encounter for closed fracture; S22.089A Unspecified fracture of T11-T12 vertebra, initial encounter for closed fracture; W19.XXXA Unspecified fall, initial encounter; E11.9 Type 2 diabetes mellitus without complications; Z79.1 Long term (current) use of non-steroidal anti-inflammatories (NSAID); Z79.899 Other long term (current) drug therapy; Z79.82 Long term (current) use of aspirin; Z79.4 Long term (current) use of insulin; Z88.0 Allergy status to penicillin; Z91.040 Latex allergy status; Z98.890 Other specified postprocedural states
CPT/HCPCS: 64635; 64636; J2250; J3301; J3010; 99152; 99153

== ENCOUNTER 2019-01-19 08:11 | Day surgery (SDC) | payer MEDICARE ==
[2019-01-18 08:46] VITALS: BMI 27.3
[2019-01-19 08:40] VITALS: RESP 16; TEMP 97.1
[2019-01-19] MEDS ORDERED: LIDOCAINE 1% 20 ML VIAL (10MG/ML) FOR IV START INTRADERMA ONE (08:51)
[2019-01-19] MEDS ORDERED: LACTATED RINGERS 1,000 ML IV ONE (08:51)
[2019-01-19 08:58] LABS: Glucose,Whole Blood 135 mg/dL (75-99)
--- NOTE | 2019-01-19 09:40 | P.PCN ---
Date of Procedure: 01/19/19 Procedure(s) Performed: OPERATION: Radiofrequency ablation of the medial branch lumbar area at left side, L3 medial branch, L4 medial branch, and dorsal rami of L5 levels under fluoroscopic guidance. PREOPERATIVE DIAGNOSES: 1. Lumbar facet arthropathy. 2. Lumbar degenerative disc disease. POSTOPERATIVE DIAGNOSES: 1. Lumbar facet arthropathy. 2. Lumbar degenerative disc disease. COMPLICATIONS: None. PHYSICIAN: Jake Ryan MD ANESTHESIA: moderate sedation with local infiltration. CONDITION: Stable. INDICATION FOR THE PROCEDURE: This is a 83-year-old male with a history of low back pain. Procedure, risks and benefits discussed with the patient who agreed with proceeding. Patient taken to the operating room, placed in prone position. All standard monitors applied to the patient. Then after induction of anesthesia, back prepped with Betadine 3 times. Then under fluoroscopic guidance we used 1% lidocaine 5 mL for skin and subcutaneous tissue infiltrations, Then after that, 18-gauge radiofrequency active-tip needles, 3 needles used, each one of them placed at the junction of the base of the transverse process and the superior articulating process of the left side at, L3-4, L4-5 and L5-S1 levels. Needle placement confirmed with AP and oblique and lateral views. Then after appropriate needle placement confirmed, we checked for the motor stimulation at 2.5 v, which was positive for localized contractions in the lumbar area and there were no contractions in the lower extremities. Then 1 cc of 4% lidocaine was injected into each needle. Then after that, the radiofrequency done at 80 degrees Centigrade for 90 seconds at each level. The needles were subsequently r emoved. Patient tolerated the procedure well without any complication and will follow up with the pain clinic in few weeks.
[2019-01-19] MEDS ORDERED: IV FLUID CONTINUATION 1,000 ML IV ONE (09:46)
--- NOTE | 2019-01-19 09:52 | FL ---
EXAMINATION TYPE: FL guided pain mgmt statistic DATE OF EXAM: 01/19/2019 CLINICAL HISTORY: Back pain. TECHNIQUE: Fluoroscopy. COMPARISON: None. FINDINGS: Fluoroscopic guidance was provided during pain relief procedure performed by Dr. Ryan . A total of 12 seconds of fluoroscopic time was utilized during the procedure and 4 spot images are acquired. Images acquired shows needle localization at multiple levels in the lumbar spine. IMPRESSION: As Above.
[2019-01-19 10:06] VITALS: BP 122/75; PULSE 61
== END 2019-01-19 10:18 | disposition home or self-care (01) ==
LOC: ORPAIN 08:11
PROVIDERS: ATTEND Student in an Organized Health Care Education/Training Program
DX: G89.29 Other chronic pain (principal); M47.816 Spondylosis without myelopathy or radiculopathy, lumbar region; M51.36 Other intervertebral disc degeneration, lumbar region; G62.9 Polyneuropathy, unspecified; M12.9 Arthropathy, unspecified; E11.9 Type 2 diabetes mellitus without complications; Z79.1 Long term (current) use of non-steroidal anti-inflammatories (NSAID); Z79.82 Long term (current) use of aspirin; Z79.4 Long term (current) use of insulin; Z79.899 Other long term (current) drug therapy
CPT/HCPCS: 64635; 64636 ×2; J2250; J3010; 99152

== ENCOUNTER → 2019-02-07 | Outpatient (CLI) | payer MEDICARE ==
[2019-02-07 14:51] VITALS: BP 137/79; PULSE 76; RESP 16
--- NOTE | 2019-02-07 15:03 | P.PAINPG ---
Subjective Progress Note Date: 02/07/19 This is follow up visit for this 83 years old male, with a chronic history of severe low back pain, patient diagnosed with lumbar degenerative disc disease and lumbar spondylosis with lumbar facet arthropathy, and cluneal nerve neuralgia, recently we have done radiofrequency ablation of the medial branch lumbar area, patient reported that his low back pain that used to radiate to the lower extremity improved significantly, but he continued to have severe low back pain above the hip area, with radiation to the lateral aspect of the buttock bilaterally, but it's more severe on the right side Medications and Allergies Physical Examinations : -Constitutional : Cooperative , not in acute distress . -HEENT : nech ; supple , no Lymphadenopathy , no Thyromegaly , :eyes : no icterus, no photophobia. -Integumentary : No cellulitis , no ulcers , normal skin turgor , no cyanotic . - neurologic : Cranial nerve II to XII intact , no focal neurological deffecit -psychatric : alert , oriented X 3 , appropriate affect , intact judgment and insight . -Lymphatic : no Lymphadenopathy. - musculoskeltal: Ambulate using a walker Lumber spine [facility] lower extremities ,thigh and legs 4/5 Right side , 4/5 Left side deep tendon reflexes : normal Knee Jerk , normal ankle Jerk positive lumber facet Loading Test Range of motion of the lumbar spine Flexion 30 degrees, extension 10 degrees strait leg raising test , positive at 30 degree Fabere test positive RT and positive LT . tenderness over the sacroiliac joint on the right side, and on the left side Severe tenderness over the iliac crest, at the location of cluneal nerve (bilaterally ) MRI of the lumbar spine done at [facility] 07/15/2018= compression fracture L2-L3 and L4 and T12, multilevel lumbar bulging disc disease at L3 4 and L4 5, and multilevel lumbar facet arthropathy L2 3 L3 4 and L4 5 and L5-S1 Assessment and plan= chronic severe low back pain secondary to multifactorial causes 1-compression fracture of the lumbar spine. 2-lumbar degenerative disc disease. 3-lumbar spondylosis with lumbar facet arthropathy. 4-Bilateral cluneal nerve entrapment/neuropathy. Patient improved significantly after radiofrequency ablation of the median branch lumbar area Patient could benefit from bilateral cluneal nerve block Objective - Vital Signs Vital signs: Vital Signs Temp Pulse 76 02/07/19 14:48 Resp 16 02/07/19 14:48 BP 137/79 02/07/19 14:48 Pulse Ox 98 02/07/19 14:48 Intake & Output 02/06/19 02/07/19 02/07/19 18:59 06:59 18:59 Weight 81.647 kg PQRS Measure Charge Sheet Measure #130: Documentation of Current Meds in Medical Chart: Patient's medications documented in chart Measure #226: Tobacco Use: Screen & Cessation Intervention: Pt screened for tobacco use AND intervention given Measure #111: Pneumonia Vaccination: Pneumococcal vaccine NOT administered or previously given Measure #47: Advance Care Plan: Advance care planning discussed & documented, pt chose/unable to give Measure #412: Opioid Treatment Agreement: No documentation of signed opioid treatment agreement Measure #408: Opioid Therapy Follow-up Evaluation: Patient had NO f/u eval mi nimum every 3 months during opioid therapy Measure #317: Preventitive Care & Scrn High Bld Press & F/U: Normal blood pressure, f/u not required Measure #128: Body Mass Index (BMI) Screening & Follow-up: BMI documented ABOVE normal parameters - f/u documented Measure #131: Pain Assessment & Follow-up: Pain positive & plan documented, Follow-up scheduled Measure #431: Unhealthy Alcohol Use Preventative Care & Scrn: Patient not identified as an unhealthy alcohol user PQRS Narrative: Smoking Status Never smoker Blood Pressure 137/79 Scale Used Numeric (1 - 10) Hx Alcohol Use (MH) Yes Home Medications: Ambulatory Orders Cetirizine HCl 10 mg PO DAILY 07/05/15 Nitroglycerin Sl Tabs [Nitrostat] 0.4 mg SUBLINGUAL Q5M PRN 07/05/15 Pravastatin Sodium [Pravachol] 80 mg PO HS 09/01/17 Gabapentin [Neurontin] 600 mg PO 0800,1800 09/09/17 Potassium Chloride ER [K-Dur 10] 10 meq PO BID 09/24/17 metFORMIN HCL [Glucophage] 1,000 mg PO BID 09/24/17 Aspirin EC [Ecotrin Low Dose] 81 mg PO DAILY 12/24/17 Allopurinol [Zyloprim] 300 mg PO DAILY 01/26/18 Gabapentin [Neurontin] 1,200 mg PO HS 01/26/18 Omeprazole 40 mg PO BID 01/26/18 Torsemide [Demadex] 100 mg PO DAILY 01/26/18 Menthol [Nice Cough Drops] 1 each MUCOUS MEM Q4H PRN lozenge 02/05/18 INSULIN LISPRO (HumaLOG) [humaLOG] 0 unit SQ TID-W/MEALS PRN 08/04/18 Magnesium Oxide 400 mg PO BID 08/04/18 Metoprolol Tartrate [Lopressor] 12.5 mg PO QAM 08/04/18 Zolpidem [Ambien] 10 mg PO HS 08/04/18 INSULIN LISPRO (humaLOG) [humaLOG] 0 units SQ ACHS PRN 12/01/18 Insulin Glargine,Hum.rec.anlog [Lantus Solostar] 12 unit SQ AC-BRKFST 12/01/18 Insulin Glargine,Hum.rec.anlog [Lantus Solostar] 12 unit SQ W/SUPPER 12/01/18 Meloxicam [Mobic] 7.5 mg PO DAILY #60 tab 12/22/18 Ibuprofen [Motrin] 800 mg PO HS 02/07/19 Controlled Substance Measures - Controlled Substance Measures Is patient prescribed a controlled substance at discharge?: No
== END | disposition home or self-care (01) ==
LOC: PNWHC3 13:32
PROVIDERS: ATTEND Specialist
DX: S32.009A Unspecified fracture of unspecified lumbar vertebra, initial encounter for closed fracture (principal); M51.36 Other intervertebral disc degeneration, lumbar region; M47.816 Spondylosis without myelopathy or radiculopathy, lumbar region; M46.96 Unspecified inflammatory spondylopathy, lumbar region; G89.29 Other chronic pain; G58.8 Other specified mononeuropathies; G62.9 Polyneuropathy, unspecified
CPT/HCPCS: 99211

== ENCOUNTER → 2019-02-09 | Day surgery (SDC) | payer MEDICARE ==
[~2019-02-09] MED LIST changes: +IV FLUID CONTINUATION 1,000 ML IV ONE; +LIDOCAINE 1% 20 ML VIAL (10MG/ML) FOR IV START INTRADERMA ONE
[2019-02-09 10:26] LABS: Glucose,Whole Blood 171 mg/dL (75-99)
[2019-02-09 10:40] VITALS: TEMP 97.8
[2019-02-09 10:44] VITALS: BMI 29.7
--- NOTE | 2019-02-09 11:13 | P.PCN ---
Date of Procedure: 02/09/19 Procedure(s) Performed: Procedure= bilateral cluneal nerve steroid injection under fluoroscopy guidance (fluoroscopy image stored on file in the radiology Department ) Preoperative diagnosis= 1-bilateral cluneal nerve neuralgia 2-lumbar degenerative disc disease 3-lumbar facet arthropathy Postoperative diagnosis= same as preop diagnoses Complication = none Condition= stable Anesthesia= moderate sedation with intravenous Versed 1 mg . Indication for the procedure= patient complaining of low back pain , examination was positive for severe tenderness over the cluneal nerve bilaterally and patient diagnosed with cluneal nerve entrapment/numerology, for this reason he is good candidate for cluneal nerve steroid injection. Description of the procedure= procedure risk and benefits discussed with the patient, including but not limited, risk of infection and bleeding, and ALLERGIC reaction to the medication and not complete pain relief and patient agreed with the preceding patient taken to the operating room, placed in prone position or standard monitors applied to the patient then after induction of anesthesia back prepped with chlorhexidine 3 times , Then under strict sterile technique, first I did the right cluneal nerve the ,right iliac crest under fluoroscopy guidance been local infiltration of the skin and subcu interstitial with lidocaine 1% then 22-gauge Quincke Needle advanced slowly under fluoroscopy and placed in the lateral edge of the iliac crest and the location of the right cluneal nerve needle placement confirmed with AP and oblique and lateral view and after appropriate needle placement confirmed and after negative aspiration, or heme , then Ropivacaine 0.5% 5 mL, and 20 mg of Depo-Medrol mixed together and injected in the right cluneal nerve after negative aspiration patient tolerated the procedure well without any complication. And then the exact same procedure was repeated on the left side and I did the left cluneal nerve block
[2019-02-09 11:25] VITALS: RESP 16
[2019-02-09 11:38] VITALS: BP 117/72; PULSE 62
--- NOTE | 2019-02-09 12:00 | FL ---
Fluoroscopy INDICATION: Pain FINDINGS: Fluoroscopy time: 4 seconds. Images obtained: 2. IMPRESSIONS: 1. Documentation of fluoroscopy.
[2019-02-09 12:02] LABS: Glucose,Whole Blood 180 mg/dL (75-99)
== END | disposition home or self-care (01) ==
LOC: ORPAIN 09:16
PROVIDERS: ATTEND Specialist
DX: G89.29 Other chronic pain (principal); G58.8 Other specified mononeuropathies; M51.36 Other intervertebral disc degeneration, lumbar region; M46.96 Unspecified inflammatory spondylopathy, lumbar region; Z79.1 Long term (current) use of non-steroidal anti-inflammatories (NSAID); Z79.82 Long term (current) use of aspirin; Z79.4 Long term (current) use of insulin; Z79.899 Other long term (current) drug therapy; Z88.0 Allergy status to penicillin; Z91.040 Latex allergy status
CPT/HCPCS: 64450; J2250; J1030; 64445; 99152

== ENCOUNTER → 2019-02-11 | Outpatient (CLI) | payer MEDICARE ==
--- NOTE | 2019-02-11 18:01 | CT ---
EXAMINATION TYPE: CT ChestAbdPelvis w con DATE OF EXAM: 02/11/2019 INDICATION: Esophageal CA COMPARISON: 07/13/2018 CT DLP: 1317 mGycm CONTRAST: Performed with Oral Contrast and with IV Contrast, patient injected with 100 mL of Isovue 300. TECHNIQUE: Axial images at 5 mm thick sections. Reconstructed images in the coronal plane. Delayed images through the kidneys. FINDINGS: CT CHEST: Portion of the thyroid visualized is normal. No suspicious lung nodules or focal infiltrates are present. No enlarged mediastinal or hilar adenopathy is evident. Multiple scattered small lymph nodes present. The heart is enlarged. The ascending aorta diameter at the level of the main pulmonary artery is 3.9 cm. The main pulmonary artery diameter at the bifurcation is 3.[address] ABDOMEN: Distal esophagus is nondistended. Wall thickening cannot be measured. The patient's repor oscar esophageal cancer is not clearly evident. Liver: Normal Spleen: Normal Pancreas: Atrophic Adrenal glands: The adrenal glands are normal. Gallbladder: Normal Kidneys: Left kidney appears somewhat atrophic. No masses are evident. No hydronephrosis is present. No cysts are present. Delayed images were obtained through the kidneys, which remain unremarkable. Aorta: Vascular calcification is within the aorta. Inferior vena cava: Normal. CT PELVIS: Loops of bowel within the abdomen and pelvis are normal. There are diverticular changes within the sigmoid colon. There are loops of bowel which are incompletely distended or lack oral contrast limit ing their evaluation. Appendix: Not visualized. No suspicious inflammatory changes or dilated tubular structures are eviden t. Urinary bladder: Normal. Genitourinary structures: Prostate is mildly prominent. Osseous structures: No suspicious lytic or sclerotic lesions. IMPRESSIONS: 1. No suspicious changes to suggest metastatic esophageal cancer. Continued monitoring is recommended .
== END ==
LOC: RADCTMAIN 10:27
PROVIDERS: ATTEND Internal Medicine Hematology & Oncology
DX: C15.5 Malignant neoplasm of lower third of esophagus (principal)
CPT/HCPCS: 82565; 84520; 71260; 74177; 36415; Q9967

== ENCOUNTER 2019-02-23 07:21 | Day surgery (SDC) | payer MEDICARE ==
[2019-02-21 10:27] VITALS: BMI 30.4
[2019-02-23 07:42] VITALS: RESP 18; TEMP 97.6
[2019-02-23] MEDS ORDERED: LACTATED RINGERS 1,000 ML IV ONE (07:52)
[2019-02-23 07:57] LABS: Glucose,Whole Blood 138 mg/dL (75-99)
[2019-02-23] MEDS ORDERED: LACTATED RINGERS 1,000 ML IV SCH (08:00)
[2019-02-23] MEDS ORDERED: IV FLUID CONTINUATION 500 ML IV ONE (08:36)
[2019-02-23 08:41] LABS: Glucose,Whole Blood 139 mg/dL (75-99)
--- NOTE | 2019-02-23 08:47 | FL ---
EXAMINATION TYPE: FL guided pain mgmt statistic DATE OF EXAM: 02/23/2019 COMPARISON: NONE HISTORY: Back and pelvic pain TECHNIQUE: Fluoroscopy. FINDINGS: Fluoroscopic guidance was provided during procedure performed by Dr. James. A total of 5 seconds of fluoroscopic time was utilized during the procedure and 1 spot image was acquired with ne edle localization over the iliac crest. IMPRESSION: As Above.
[2019-02-23 08:51] VITALS: BP 128/77; PULSE 64
--- NOTE | 2019-02-23 11:51 | P.PCN ---
Date of Procedure: 02/23/19 Description of Procedure: PREOPERATIVE DIAGNOSIS: Cluneal neuralgia POSTOPERATIVE DIAGNOSIS: Same PROCEDURE: Bilateral cluneal nerve block with fluoroscopic guidance ANESTHESIA: Local with 1% lidocaine. IV sedation. EBL: None. Surgeon: Nitesh James MD PROCEDURE INDICATION: This is an 83-year-old gentleman with a history of bilateral low back pain who has a diagnosis of cluneal neuralgia and presents today for bilateral cluneal nerve block PROCEDURE DESCRIPTION: The patient was seen and identified in the preoperative area. Risks, benefits, complications, and alternatives were discussed with the patient. The patient agreed to proceed with the procedure and signed the consent. IV was started, and vital signs were stable. Patient was taken to the OR and time out was completed. The patient was placed in the prone position on procedure table and a pillow was placed under the abdomen to reduce lumbar lordosis. The area over the iliac crests was prepped and draped bilaterally. The fluoroscope was used for needle placement. A 25- gauge 3-1/2 inch needle was advanced through the skin subcu taste tissue until the needle came to contact the crest of the iliac crest bilaterally. After negative aspiration, a solution containing 4 mL of 0.25% bupivacaine and 20 mg of Depo-Medrol was injected on each side. The needles then withdrawn. A sterile bandage was applied. Patient was then transported to recovery room in stable condition. COMPLICATIONS: None DISPOSITION / PLANS: The patient was placed in a supine position and transferred to the recovery area in a stable condition for observation and was discharged from the recovery room after meeting discharge criteria. Home discharge instructions given to the patient by the staff. The patient was reexamined prior to discharge. The patient will schedule a follow up in the clinic in 2-4 weeks.
== END 2019-02-23 09:10 | disposition home or self-care (01) ==
LOC: ORPAIN 07:21
PROVIDERS: ATTEND Pain Medicine Pain Medicine
DX: G58.8 Other specified mononeuropathies (principal); M19.90 Unspecified osteoarthritis, unspecified site; Z91.040 Latex allergy status
CPT/HCPCS: 64450; J2250; J1030

== ENCOUNTER → 2019-03-23 | Outpatient (CLI) | payer MEDICARE ==
[2019-03-23 12:22] VITALS: BP 153/76; PULSE 62; RESP 20
--- NOTE | 2019-03-24 14:08 | P.PAINPG ---
Subjective Progress Note Date: 03/23/19 This is a follow up visit for this 83 year old male, with a chronic history of severe low back pain, patient diagnosed with lumbar degenerative disc disease and lumbar spondylosis with lumbar facet arthropathy, and cluneal nerve neuralgia, recently we have done bilateral cluneal nerve blocks on 02/10/2019 and 02/23/2019. Today the patient reports that he obtained excellent relief from these procedures, but now the pain is starting to come back in the same area. He rates his pain as 0/10 at rest and 2/10 with activity. He would like to have of radiofrequency ablation done to the cluneal nerves. In the past, we have done radiofrequency ablation of the lumbar area with good results. His pain is l ocated in bilateral iliac crests, radiating to lateral hips and occasionally anterior thighs, not past the knee. 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 Review of systems is negative for chest pain, shortness of breath, new onset weakness, numbness/tingling, abdominal pain, malaise, fever, night sweats, chills, homicidal or suicidal ideation, or bowel or bladder incontinence. Physical exam: Vitals: Reviewed in EMR GENERAL: Well appearing, in no acute distress, walker by his side PSYCH: Mood and affect is appropriate. Awake, alert, and oriented SKIN: Skin color, texture, turgor normal, no rashes or lesions HEENT: Normocephalic, atraumatic. EOM intact CV: No pedal edema RESP: Respirations are unlabored, no audible wheezing GI: Abdomen non-distended MUSCULOSKELETAL: Bilateral lower extremity strength is normal and symmetric. No atrophy or tone abnormalities are noted. Lumbar spine: Interest to palpation along bilateral iliac crests. Limited lumbar extension. No pain to palpation over the lumbar spine and paraspinous muscles. Negative for pain with facet loading and back extension/rotation. Buttocks: No pain to palpation over the PSIS, sacroiliac joint maneuvers are negative for pain. Extremities: Peripheral joint ROM is full and pain free without obvious instability or laxity in all four extremities. No edema or skin discolorations noted. Gait: Gait is slow, antalgic NEUR: Bilateral lower extremity coordination and muscle stretch reflexes are physiologic and symmetric. Negative clonus bilaterally. No loss of sensation is noted. MRI of the lumbar spine done at [facility] 07/15/2018= compression fracture L2-L3 and L4 and T12, multilevel lumbar bulging disc disease at L3 4 and L4 5, and multilevel lumbar facet arthropathy L2 3 L3 4 and L4 5 and L5-S1 Assessment and plan= chronic severe low back pain secondary to multifactorial causes 1-compression fracture of the lumbar spine. 2-lumbar degenerative disc disease. 3-lumbar spondylosis with lumbar facet arthropathy. 4-Bilateral cluneal nerve entrapment/neuropathy. Patient improved significantly after radiofrequency ablation of the median branch lumbar area Patient also had significant benefit from bilateral cluneal nerve block although of limited duration. He would be a good candidate for radiofrequency ablation of the cluneal nerves, right side first PQRS Measure Charge Sheet Measure #130: Documentation of Current Meds in Medical Chart: Patient's medications documented in chart Measure #226: Tobacco Use: Screen & Cessation Intervention: Pt not a tobacco user Measure #111: Pneumonia Vaccination: Pneumococcal vaccine administered or previously received Measure #47: Advance Care Plan: Advance care planning discussed & documented, pt chose/unable to give Measure #412: Opioid Treatment Agreement: No documentation of signed opioid treatment agreement Measure #317: Preventitive Care & Scrn High Bld Press & F/U: Pre-hypertensive or hypertensive BP documented, pt will f/u with PCP Measure #128: Body Mass Index (BMI) Screening & Follow-up: BMI documented ABOVE normal parameters - f/u documented Measure #131: Pain Assessment & Follow-up: Pain positive & plan documented, Follow-up scheduled Measure #431: Unhealthy Alcohol Use Preventative Care & Scrn: Patient not identified as an unhealthy alcohol user PQRS Narrative: Smoking Status Never smoker Pain Intensity [Lower Back] 2 Hx Alcohol Use (MH) Yes: OCCASIONAL Home Medications: Ambulatory Orders Cetirizine HCl 10 mg PO DAILY 07/05/15 Nitroglycerin Sl Tabs [Nitrostat] 0.4 mg SUBLINGUAL Q5M PRN 07/05/15 Pravastatin Sodium [Pravachol] 80 mg PO HS 09/01/17 Gabapentin [Neurontin] 600 mg PO 0800,1800 09/09/17 Potassium Chloride ER [K-Dur 10] 10 meq PO BID 09/24/17 metFORMIN HCL [Glucophage] 1,000 mg PO BID 09/24/17 Aspirin EC [Ecotrin Low Dose] 81 mg PO DAILY 12/24/17 Allopurinol [Zyloprim] 300 mg PO DAILY 01/26/18 Gabapentin [Neurontin] 1,200 mg PO HS 01/26/18 Omeprazole 40 mg PO BID 01/26/18 Torsemide [Demadex] 100 mg PO DAILY 01/26/18 Magnesium Oxide 400 mg PO BID 08/04/18 Metoprolol Tartrate [Lopressor] 12.5 mg PO QAM 08/04/18 Zolpidem [Ambien] 10 mg PO HS 08/04/18 INSULIN LISPRO (humaLOG) [humaLOG] 0 units SQ ACHS PRN 12/01/18 Insulin Glargine,Hum.rec.anlog [Lantus Solostar] 12 unit SQ BID-W/MEALS 12/01/18 Meloxicam [Mobic] 7.5 mg PO DAILY #60 tab 12/22/18 Ibuprofen [Motrin] 800 mg PO HS PRN 02/07/19 Albuterol Sulfate [Ventolin HFA] 1 - 2 puff INHALATION Q4-6H PRN 03/17/19 Phenylephrine HCl/Prometh HCl [Promethazine Vc Syrup] 5 ml PO TID PRN 03/17/19 predniSONE 40 mg PO DAILY 03/17/19 Controlled Substance Measures - Controlled Substance Measures Is patient prescribed a controlled substance at discharge?: No
== END ==
LOC: PNWHC3 12:08
PROVIDERS: ATTEND Anesthesiology
DX: G89.29 Other chronic pain (principal); M51.36 Other intervertebral disc degeneration, lumbar region; M47.816 Spondylosis without myelopathy or radiculopathy, lumbar region; M46.96 Unspecified inflammatory spondylopathy, lumbar region; G62.9 Polyneuropathy, unspecified; S32.049A Unspecified fracture of fourth lumbar vertebra, initial encounter for closed fracture; Z79.899 Other long term (current) drug therapy; Z79.82 Long term (current) use of aspirin; Z79.4 Long term (current) use of insulin; Z79.1 Long term (current) use of non-steroidal anti-inflammatories (NSAID)
CPT/HCPCS: 99211

== ENCOUNTER → 2019-04-05 | Outpatient (CLI) | payer MEDICARE ==
--- NOTE | 2019-04-05 12:02 | XR ---
EXAMINATION TYPE: XR chest 2V DATE OF EXAM: 04/05/2019 COMPARISON: 08/03/2018 HISTORY: Shortness of breath and fatigue TECHNIQUE: Frontal and lateral views of the chest are obtained. FINDINGS: Chronic interstitial prominence is mild. Cardiomediastinal silhouette is upper limits of n ormal. Mild degenerative changes of the spine and moderate of the shoulders. Diffuse osseous deminera lization. No sizable pneumothorax or pleural effusion. Increased anterior posterior diameter of the c hest and flattening of diaphragms on the lateral view relates underlying COPD. Moderate degenerative changes of the spine. Upper lumbar compression deformity is unchanged from the prior. IMPRESSION: Chronic interstitial prominence and underlying COPD. No acute cardiopulmonary findings.
== END | disposition home or self-care (01) ==
LOC: RADXRYALE 11:12
PROVIDERS: ATTEND Physician Assistant Medical
DX: J44.9 Chronic obstructive pulmonary disease, unspecified (principal)
CPT/HCPCS: 71046

== ENCOUNTER 2019-04-11 07:21 | Day surgery (SDC) | payer MEDICARE ==
[2019-04-07 13:28] VITALS: BMI 29.7
[~2019-04-11 07:21] MED LIST changes: -IV FLUID CONTINUATION 1,000 ML IV ONE; -LIDOCAINE 1% 20 ML VIAL (10MG/ML) FOR IV START INTRADERMA ONE
[2019-04-11 07:53] VITALS: TEMP 97.2
[2019-04-11] MEDS ORDERED: LIDOCAINE 1% 20 ML VIAL (10MG/ML) FOR IV START INTRADERMA ONE (08:00)
[2019-04-11 08:06] LABS: Glucose,Whole Blood 239 mg/dL (75-99)
[2019-04-11] MEDS ORDERED: IV FLUID CONTINUATION 800 ML IV ONE (08:47)
--- NOTE | 2019-04-11 08:49 | P.PCN ---
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 Procedure= radiofrequency thermocoagulation of the right cluneal nerves under fluoroscopy guidance (fluoroscopy images available in the audiology Department) Condition= stable. Complications= none. Anesthesia= moderate sedation with intravenous Versed 1 mg and fentanyl 50 micrograms, local infiltration of the skin and subcu tissue with lidocaine 1% 3 mL. Description of the procedure= the risk and benefits and alternative of the procedure discussed with the patient and agreed with proceeding, including but not limited to risk of infection and bleeding not complete pain relief ALLERGIC reaction to the medication, patient signed the consent and all questions discussed with the patient and answer patient taken to the operating room placed in the OR table in supine position, IV medication given to minimize patient's the patient anexity , and vital signs were monitored and remained stable throughout the procedure was placed under the knee, and the area prepped with chlorhexidine 3 been under fluoroscopy guidance and after using lidocaine 1% for skin and subcu tissue infiltrations 18-gauge 10 mm radiofrequency active tip ,2 needle advanced slowly under fluoroscopy ,placed at the superior lateral border of the right iliac crest , the needle tip was in direct contact with the periosteum , and the needles placement confirmed under fluoroscopy with the AP and lateral view and after appropriate needle placement confirmed and then we did the sensory stimulation testing at 50 mHz and 0 to 1 volt ,, then we did the motor testing at 2 Hz and 0 to 2.5 volts , there was no contractions in the muscle of the lower extremity then all the sides underwent radiofrequency thermocoagulation at 80C for 90 seconds after injection HALF mL PRESERVATIVE- free lidocaine 1% and after the Thermocoagulation is done the cannulas removed and Marcaine 0.5% 4 ml and 40 mg of Depo-Medrol mixed together , and 2,5 ml of the mixture injected at each needle after negative aspiration under was no paresthesia during the injection patient tolerated the procedure well and will follow up with the pain clinic in a few weeks
[2019-04-11 08:52] VITALS: RESP 16
--- NOTE | 2019-04-11 08:55 | FL ---
EXAMINATION TYPE: FL guided pain mgmt statistic DATE OF EXAM: 04/11/2019 HISTORY: Flouroscopy time 21 seconds of fluoroscopy provided. IMPRESSION: 1. Fluoroscopy time.
[2019-04-11 09:00] LABS: Glucose,Whole Blood 199 mg/dL (75-99)
[2019-04-11 09:11] VITALS: BP 134/82; PULSE 73
== END 2019-04-11 09:19 | disposition home or self-care (01) ==
LOC: ORPAIN 07:21
PROVIDERS: ATTEND Specialist
DX: M79.2 Neuralgia and neuritis, unspecified (principal); M47.816 Spondylosis without myelopathy or radiculopathy, lumbar region; I10 Essential (primary) hypertension; E11.42 Type 2 diabetes mellitus with diabetic polyneuropathy; Z88.0 Allergy status to penicillin; Z91.040 Latex allergy status
CPT/HCPCS: 64640; J2250; J1030; J3010; 99152

== ENCOUNTER 2019-04-25 08:01 | Day surgery (SDC) | payer MEDICARE ==
[2019-04-25 08:23] VITALS: TEMP 96.7
--- NOTE | 2019-04-25 09:03 | P.PCN ---
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 Procedure= radiofrequency thermocoagulation of the Left cluneal nerves under fluoroscopy guidance (fluoroscopy images available in the audiology Department) Condition= stable. Complications= none. Anesthesia= moderate sedation with intravenous Versed 1 mg and fentanyl 50 micrograms, local infiltration of the skin and subcu tissue with lidocaine 1% 3 mL. Description of the procedure= the risk and benefits and alternative of the procedure discussed with the patient and agreed with proceeding, including but not limited to risk of infection and bleeding not complete pain relief ALLERGIC reaction to the medication, patient signed the consent and all questions discussed with the patient and answer patient taken to the operating room placed in the OR table in supine position, IV medication given to minimize patient's the patient anexity , and vital signs were monitored and remained stable throughout the procedure was placed under the knee, and the area prepped with chlorhexidine 3 been under fluoroscopy guidance and after using lidocaine 1% for skin and subcu tissue infiltrations 18-gauge 10 mm radiofrequency active tip ,2 needle advanced slowly under fluoroscopy ,placed at the superior lateral border of the Left iliac crest , the needle tip was in direct contact with the periosteum , and the needles placement confirmed under fluoroscopy with the AP and lateral view and after appropriate needle placement confirmed and then we did the sensory stimulation testing at 50 mHz and 0 to 1 volt ,, then we did the motor testing at 2 Hz and 0 to 2.5 volts , there was no contractions in the muscle of the lower extremity then all the sides underwent radiofrequency thermocoagulation at 80C for 90 seconds after injection 0.5 mL Preservitive - free lidocaine 1% and after the Thermocoagulation is done the cannulas removed and Ropivacaine 0.5% 4 ml and 40 mg of Depo-Medrol mixed together , and 2,5 ml of the mixture injected at each needle after negative aspiration under was no paresthesia during the injection patient tolerated the procedure well and will follow up with the pain clinic in a few weeks
[2019-04-25 09:08] VITALS: RESP 16
[2019-04-25 09:23] VITALS: BP 132/81; PULSE 69
[2019-04-25] MEDS ORDERED: IV FLUID CONTINUATION 1,000 ML IV ONE (09:26)
--- NOTE | 2019-04-25 10:41 | FL ---
EXAMINATION TYPE: FL guided pain mgmt statistic DATE OF EXAM: 04/25/2019 CLINICAL HISTORY: Low back and iliac crest pain. TECHNIQUE: Fluoroscopy. COMPARISON: None. FINDINGS: Fluoroscopic guidance was provided during pain relief procedure performed by Dr. Cottrell . A total of 10 seconds of fluoroscopic time was utilized during the procedure and two spot images a re acquired. Images acquired shows needle localization of an iliac crest. IMPRESSION: As Above.
[2019-04-27 04:20] LABS: Glucose,Whole Blood 188 mg/dL (75-99)
== END 2019-04-25 09:39 | disposition home or self-care (01) ==
LOC: ORPAIN 08:01
PROVIDERS: ATTEND Specialist
DX: G58.8 Other specified mononeuropathies (principal); M47.816 Spondylosis without myelopathy or radiculopathy, lumbar region; I25.10 Atherosclerotic heart disease of native coronary artery without angina pectoris; I10 Essential (primary) hypertension; E11.9 Type 2 diabetes mellitus without complications; Z88.5 Allergy status to narcotic agent; Z88.0 Allergy status to penicillin
CPT/HCPCS: 64640; J2250; J1030; J3010; 99152

== ENCOUNTER → 2019-05-11 | Outpatient (CLI) | payer MEDICARE ==
[2019-05-11 12:00] VITALS: BP 135/67; PULSE 67; RESP 16
--- NOTE | 2019-05-13 10:38 | P.PAINPG ---
Subjective Progress Note Date: 05/11/19 This is a follow up visit for this 83 year old male, with a chronic history of severe low back pain, patient diagnosed with lumbar degenerative disc disease and lumbar spondylosis with lumbar facet arthropathy, and cluneal nerve neuralgia, recently we have done bilateral cluneal nerve radio frequency abl ation, right side done on 04/11/2019 and left side on 04/25/2019. Patient returns today for follow-up. He reports good pain relief from these procedures, and states his pain is nowhere near what it was when he started coming here. However, he does have pain in the low back, which intermittently shoots to the bilateral buttocks and lateral aspects of bilateral legs. Pain is rated a 6/10 with activity. Pain is particularly worse with walking more than 200 feet, he has to stop and rest at this point. Positive shopping cart sign. He denies numbness, weakness, tingling. 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 Review of systems is negative for chest pain, shortness of breath, new onset weakness, numbness/tingling, abdominal pain, malaise, fever, night sweats, chills, homicidal or suicidal ideation, or bowel or bladder incontinence. Physical exam: Vitals: Reviewed in EMR GENERAL: Well appearing, in no acute distress, walker by his side PSYCH: Mood and affect is appropriate. Awake, alert, and oriented SKIN: Skin color, texture, turgor normal, no rashes or lesions HEENT: Normocephalic, atraumatic. EOM intact CV: No pedal edema RESP: Respirations are unlabored, no audible wheezing GI: Abdomen non-distended MUSCULOSKELETAL: Bilateral lower extremity strength is normal and symmetric. No atrophy or tone abnormalities are noted. Lumbar spine: Tenderness to palpation along the lumbar spinous processes and bilateral paraspinal musculature. Limited lumbar extension. Straight leg raise is negative bilaterally Buttocks: No pain to palpation over the PSIS, sacroiliac joint maneuvers are negative for pain. Extremities: Peripheral joint ROM is full and pain free without obvious instability or laxity in all four extremities. No edema or skin discolorations noted. Gait: Gait is slow, antalgic NEUR: Bilateral lower extremity coordination and muscle stretch reflexes are physiologic and symmetric. Negative clonus bilaterally. No loss of sensation is noted. MRI of the lumbar [facility] done at [facility] 07/15/[facility]= compression fracture L2-L3 and L4 and T12, multilevel lumbar bulging disc disease at L3 4 and L4 5, and multilevel lumbar facet arthropathy L2 3 L3 4 and L4 5 and L5-S1. Moderate to severe spinal canal stenosis at L3-4 with moderate bilateral neuroforaminal narrowing. At L4-5 mild to moderate spinal canal stenosis with mild to moderate left and moderate right neuroforaminal narrowing. Assessment and plan= chronic severe low back pain secondary to multifactorial causes 1-compression fracture of the lumbar spine. 2-lumbar degenerative disc disease. 3-lumbar spondylosis with lumbar facet arthropathy. 4-Bilateral cluneal nerve entrapment/neuropathy. 5- lumbar spinal canal stenosis Patient improved significantly after radiofrequency ablation of the median branch lumbar area and cluneal nerve area We will schedule L3-4 lumbar epidural steroid injection. We will plan on using low-dose steroid as the patient is diabetic and has reported increase in blood sugars following oral steroids. PQRS Measure Charge Sheet Measure #130: Documentation of Current Meds in Medical Chart: Patient's medications documented in chart Measure #226: Tobacco Use: Screen & Cessation Intervention: Pt not a tobacco user Measure #111: Pneumonia Vaccination: Pneumococcal vaccine administered or previously received Measure #47: Advance Care Plan: Advance care planning discussed & documented, pt chose/unable to give Measure #412: Opioid Treatment Agreement: No documentation of signed opioid treatment agreement Measure #317: Preventitive Care & Scrn High Bld Press & F/U: Pre-hypertensive or hypertensive BP documented, pt will f/u with PCP Measure #128: Body Mass Index (BMI) Screening & Follow-up: BMI documented ABOVE normal parameters - f/u documented Measure #131: Pain Assessment & Follow-up: Pain positive & plan documented, Follow-up scheduled Measure #431: Unhealthy Alcohol Use Preventative Care & Scrn: Patient not identified as an unhealthy alcohol user PQRS Measure Charge Sheet PQRS Narrative: Smoking Status Never smoker Pain Intensity [Back] 3 Scale Used Numeric (1 - 10) Hx Alcohol Use (MH) Yes Home Medications: Ambulatory Orders Cetirizine HCl 10 mg PO DAILY 07/05/15 Nitroglycerin Sl Tabs [Nitrostat] 0.4 mg SUBLINGUAL Q5M PRN 07/05/15 Pravastatin Sodium [Pravachol] 80 mg PO HS 09/01/17 Gabapentin [Neurontin] 600 mg PO 0800,1800 09/09/17 Potassium Chloride ER [K-Dur 10] 10 meq PO BID 09/24/17 metFORMIN HCL [Glucophage] 1,000 mg PO BID 09/24/17 Aspirin EC [Ecotrin Low Dose] 81 mg PO DAILY 12/24/17 Allopurinol [Zyloprim] 300 mg PO DAILY 01/26/18 Gabapentin [Neurontin] 1,200 mg PO HS 01/26/18 Omeprazole 40 mg PO BID 01/26/18 Torsemide [Demadex] 100 mg PO DAILY 01/26/18 Magnesium Oxide 400 mg PO BID 08/04/18 Metoprolol Tartrate [Lopressor] 12.5 mg PO QAM 08/04/18 Zolpidem [Ambien] 10 mg PO HS 08/04/18 INSULIN LISPRO (humaLOG) [humaLOG] 0 units SQ ACHS PRN 12/01/18 Insulin Glargine,Hum.rec.anlog [Lantus Solostar] 12 unit SQ BID-W/MEALS 12/01/18 Meloxicam [Mobic] 7.5 mg PO DAILY #60 tab 12/22/18 Ipratropium-Albuterol Nebulize [Duoneb 0.5 mg-3 mg/3 ml Soln] 3 ml INHALATION Q4-6H 04/22/19 Diclofenac Sodium Gel [Voltaren Gel] 1 dose TOPICAL BID 05/06/19 Controlled Substance Measures - Controlled Substance Measures Is patient prescribed a controlled substance at discharge?: No
== END | disposition home or self-care (01) ==
LOC: PNWHC3 11:37
PROVIDERS: ATTEND Anesthesiology
DX: G89.29 Other chronic pain (principal); M48.061 Spinal stenosis, lumbar region without neurogenic claudication; M51.36 Other intervertebral disc degeneration, lumbar region; M47.816 Spondylosis without myelopathy or radiculopathy, lumbar region; M46.96 Unspecified inflammatory spondylopathy, lumbar region; M48.56XA Collapsed vertebra, not elsewhere classified, lumbar region, initial encounter for fracture; G58.8 Other specified mononeuropathies; Z98.890 Other specified postprocedural states; Z79.84 Long term (current) use of oral hypoglycemic drugs; Z79.82 Long term (current) use of aspirin; Z79.4 Long term (current) use of insulin; Z79.1 Long term (current) use of non-steroidal anti-inflammatories (NSAID); Z79.899 Other long term (current) drug therapy
CPT/HCPCS: 99211

== ENCOUNTER → 2019-06-21 | Day surgery (SDC) | payer MEDICARE ==
[2019-06-16 16:58] VITALS: BMI 29.5
[~2019-06-21] MED LIST changes: +BUDESONIDE 0.5 MG/2 ML NEBU INHALATION STA; +BUDESONIDE 1 MG/2 ML NEBU INHALATION STA; +IOPAMIDOL M200 10 ML VIAL ONE; +IPRATROPIUM-ALBUTEROL 3 ML NEB INHALATION STA; +IV FLUID CONTINUATION 1,000 ML IV ONE; +LIDOCAINE 1% 20 ML VIAL (10MG/ML) FOR IV START INTRADERMA ONE; +MIDAZOLAM 2 MG/2 ML VIAL ONE; +fentaNYL (PF) 50 MCG/ML 2 ML AMP ONE; +methylPREDNISolone ACETATE 40 MG/ML 1 ML VIAL ONE
[2019-06-21 08:51] VITALS: TEMP 97.9
[2019-06-21 08:54] LABS: Glucose,Whole Blood 158 mg/dL (75-99)
--- NOTE | 2019-06-21 09:17 | P.PCN ---
Date of Procedure: 06/21/19 Procedure(s) Performed: PREOPERATIVE DIAGNOSIS: 1- Lumbar Degenerative Disc Diseases 2-Lumbar spondylosis with Facet arthropathy without myelopathy. 3-lumbar compression fracture. 4-lumbar spinal stenosis. 5-bilateral cluneal nerve neuralgia. POSTOPERATIVE DIAGNOSIS: Same as preop diagnosis. PROCEDURE 1. Lumbar epidural steroid injection under fluoroscopic guidance at the L3-4 level. (Fluoroscopy imaging was available in radiology department) 2. Lumbar epidurogram. ANESTHESIA: Local with 1% lidocaine 3 ml and , moderate sedation with intravenous Versed 1 mg ,and fentanyle 50 Mcg EBL: Minimal PROCEDURE INDICATION: The patient with low back pain and radiculitis symptoms unresponsive to conservative treatment. Fluoroscopy was used to optimize visualization of the needle placement and to maximize safety. PROCEDURE DESCRIPTION / TECHNIQUE: The patient was seen and identified in the preoperative area. Risks, benefits, complications including but not limited to infections ,bleeding ,allergic reaction to the medications ,nerve damage and not complete pain releife , and alternatives were discussed with the patient. The patient agreed to proceed with the procedure and signed the consent. IV was started, and vital signs were stable. Patient was taken to the OR and time out was completed. The patient was placed in the prone position on procedure table and a pillow was placed under the abdomen to reduce lumbar lordosis. The lumbosacral area was prepped and draped in the usual sterile fashion.ere closely monitored during the procedure. Conscious sedation was used during the procedure to decrease patients anxiety. Vital signs was monitered during the entire procedure. Using anterior-posterior fluoroscopy, the L3-4 interlaminar space was identified and the skin over this site was marked and then infiltrated with 1% lidocaine subcutaneously. Subsequently, a 20-gauge Tuohy epidural needle was inserted and advanced toward the epidural space using the ``Loss of resistance technique and guided by AP and lateral fluoroscopy. The correct needle position in the epidural space was verified with the injection of 2 mL of the water soluble contrast dye Isovue 200 contrast and observing an excellent epidurogram with the epidural spread of the dye, after negative aspiration for blood and CSF and in the absence of paresthesias. Again after negative aspiration, a 6 ml mixture containing 40 mg of Depo-medrol , and 2 ml of preservative free Normal Saline, and 2 ml of preservative free lidocaine 1% solution was injected and a washout of epidurogram was seen. Needle was withdrawn intact, skin was cleansed, and bandages were applied. COMPLICATIONS: None DISPOSITION / PLANS: The patient was placed in a supine position and transferred to the recovery area in a stable condition for observation. There was no evidence of lower extremity motor or sensory deficit after the procedure. Patient was discharged from the recovery room after meeting discharge criteria. Home discharge instructions were given to the patient by the staff. The patient was reexamined prior to discharge. The patient will schedule a follow up in the clinic in 2-4 weeks.
[2019-06-21 09:26] VITALS: BP 150/85
--- NOTE | 2019-06-21 09:40 | FL ---
EXAMINATION TYPE: FL guided pain mgmt statistic DATE OF EXAM: 06/21/2019 CLINICAL HISTORY: Low back pain. TECHNIQUE: Fluoroscopy. COMPARISON: None. FINDINGS: Fluoroscopic guidance was provided during pain relief procedure performed by Dr. Cottrell . A total of 4 seconds of fluoroscopic time was utilized during the procedure and 1 spot images are acquired. Images acquired shows needle localization over the midline lumbar spine. IMPRESSION: As Above.
[2019-06-21 09:48] VITALS: PULSE 96
[2019-06-21 09:58] VITALS: RESP 17
[2019-06-21 10:03] LABS: Glucose,Whole Blood 202 mg/dL (75-99)
== END ==
LOC: ORPAIN 07:53
PROVIDERS: ATTEND Specialist
DX: M47.26 Other spondylosis with radiculopathy, lumbar region (principal); M51.16 Intervertebral disc disorders with radiculopathy, lumbar region; M48.061 Spinal stenosis, lumbar region without neurogenic claudication; M48.56XA Collapsed vertebra, not elsewhere classified, lumbar region, initial encounter for fracture; I25.10 Atherosclerotic heart disease of native coronary artery without angina pectoris; E11.9 Type 2 diabetes mellitus without complications; Z88.0 Allergy status to penicillin; Z91.040 Latex allergy status
CPT/HCPCS: 94640; 62323; J2250; J1030; J3010; Q9966

== ENCOUNTER 2019-06-23 20:25 | Inpatient (IN) | payer MEDICARE ==
--- NOTE | 2019-06-23 21:06 | ED ---
General Adult HPI - General Chief complaint: Shortness of Breath Stated complaint: bronchospasms Time Seen by Provider: 06/23/19 20:42 Source: patient Mode of arrival: wheelchair Limitations: no limitations - History of Present Illness Initial comments: Dictation was produced using [employer] dictation software. please excuse any grammatical, word or spelling errors. Chief Complaint: 83-year-old male past medical history of esophageal cancer presents with bronchospastic coughing with syncope. History of Present Illness: Patient's an 83-year-old male. He reports that he was recently told that his esophageal cancer is in remission. He was initially diagnosed with esophageal cancer back in between parts of 2018. Patient is brought to the emergency department by family for these episodes of coughing with syncope. Patient is history of acute respiratory distress syndrome several months ago. Does have a inspector health care facilities who he follows up with. Patient was recently prescribed daily prednisone for 30 days by his inspector health care facilities after being seen in the office earlier today. They're instructed to come to the emergency department if he has any problems. Patient had 4 episodes of this coughing fit. He would have these proximal systems of cough followed by episode of syncope. Patient has had this problem for several months however over the last 30 minutes stay been more severe than usual. The ROS documented in this emergency department record has been reviewed and confirmed by me. Those systems with pertinent positive or negative responses have been documented in the HPI. All other systems are other negative and/or noncontributory. PHYSICAL EXAM: General Impression: Alert and oriented x3, not in acute distress HEENT: Normocephalic atraumatic, extra-ocular movements intact, pupils equal and reactive to light bilaterally, mucous membranes moist. Cardiovascular: Heart regular rate and rhythm, S1&S2 audible, no murmurs, rubs or gallops Chest: Left lower posterior crackling, no wheezing Abdomen: Bowel sounds present, abdomen soft, non-tender, non-distended, no organomegaly Musculoskeletal: Pulses present and equal in all extremities, no peripheral edema Motor: no focal deficits noted Neurological: CN II-XII grossly intact, no focal motor or sensory deficits noted Skin: Intact with no visualized rashes Psych: Normal affect and mood ED course: 83 y Old male presents with worsening paroxysmal of coughing followed by syncope. Signs upon arrival are within acceptable limits. Laboratory evaluation obtained. CBC unremarkable. Venous blood gases negative. Metabolic panel is nonacute. Prematurity peptide is 137. Chest x-ray was obtained showing radiographic findings suggestive of mild cardiogenic pulmonary edema. Patient had multiple episodes of coughing with posttussive syncope. Family is concerned and would like patient to be admitted. Given patient's degree of symptoms which could benefit from inpatient admission with consultation to pulmonology. Patient be admitted to Dr. Sampson's group. EKG interpretation: Ventricular rate 77, normal sinus rhythm,. 166, QS 80, QTc 468. No MA prolongation, no QTC prolongation, no ST or T-wave changes noted. EKG compared to August 03 2018 showing no changes. Overall, this EKG is unremarkable - Related Data Home Medications Medication Instructions Recorded Confirmed Cetirizine HCl 10 mg PO DAILY 07/05/15 06/16/19 Nitroglycerin Sl Tabs [Nitrostat] 0.4 mg SUBLINGUAL Q5M PRN 07/05/15 06/16/19 Pravastatin Sodium [Pravachol] 80 mg PO HS 09/01/17 06/16/19 Gabapentin [Neurontin] 600 mg PO 0800,1800 09/09/17 06/16/19 Potassium Chloride ER [K-Dur 10] 10 meq PO BID 09/24/17 06/16/19 metFORMIN HCL [Glucophage] 1,000 mg PO BID 09/24/17 06/16/19 Aspirin EC [Ecotrin Low Dose] 81 mg PO DAILY 12/24/17 06/16/19 Allopurinol [Zyloprim] 300 mg PO DAILY 01/26/18 06/16/19 Gabapentin [Neurontin] 1,200 mg PO HS 01/26/18 06/16/19 Omeprazole 40 mg PO BID 01/26/18 06/16/19 Torsemide [Demadex] 100 mg PO DAILY 01/26/18 06/16/19 Magnesium Oxide 400 mg PO BID 08/04/18 06/16/19 Metoprolol Tartrate [Lopressor] 12.5 mg PO QAM 08/04/18 06/16/19 Zolpidem [Ambien] 10 mg PO HS 08/04/18 06/16/19 INSULIN LISPRO (humaLOG) [humaLOG] 0 units SQ ACHS PRN 12/01/18 06/16/19 Insulin Glargine,Hum.rec.anlog 12 unit SQ BID-W/MEALS 12/01/18 06/16/19 [Lantus Solostar] Ipratropium-Albuterol Nebulize 3 ml INHALATION Q4-6H 04/22/19 06/16/19 [Duoneb 0.5 mg-3 mg/3 ml Soln] Diclofenac Sodium Gel [Voltaren 1 dose TOPICAL BID 05/06/19 06/16/19 Gel] Budesonide [Pulmicort] 1 mg INHALATION DAILY 06/16/19 06/16/19 Previous Rx's Medication Instructions Recorded Meloxicam [Mobic] 7.5 mg PO DAILY #60 tab 12/22/18 Allergies Allergy/AdvReac Type Severity Reaction Status Date / Time latex Allergy Rash/Hives Verified 06/21/19 08:30 penicillin G Allergy Rash/Hives Verified 06/21/19 08:30 Review of Systems ROS Statement: Those systems with pertinent positive or pertinent negative responses have been documented in the HPI. ROS Other: All systems not noted in ROS Statement are negative. Past Medical History Past Medical History: Cancer, Diabetes Mellitus, GERD/Reflux, Hearing Disorder / Deafness, Hyperlipidemia, Hypertension, Memory Impairment, Musculoskeletal Disorder, Osteoarthritis (OA), Pneumonia, Renal Disease Additional Past Medical History / Comment(s): steroids Apr 2019,"Fractures L2-L4 w/ paulina leg pain." DDD, Gout, CARDOSO'S esophagus, Esophageal CA-completed 28 radiation tx on 09/08/17, & 5 chemo tx 09/02/17. 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 "Some memory impairment RT to pain Rx." bronchitis currently with tx History of Any Multi-Drug Resistant Organisms: None Reported Past Surgical History: Appendectomy, Back Surgery, Orthopedic Surgery Additional Past Surgical History / Comment(s): Bilateral rotator cuff surgery, left foot surgery, thinks he has plate and screws, "esophagus radiofrequency ablation", paulina cataracts-lens implants, kyphoplasty. Pain procedures. epidural steroid injection in back Past Anesthesia/Blood Transfusion Reactions: No Reported Reaction Additional Past Anesthesia/Blood Transfusion Reaction / Comment(s): . Past Psychological History: No Psychological Hx Reported Smoking Status: Never smoker Past Alcohol Use History: Daily Past Drug Use History: None Reported - Past Family History Mother Family Medical History: Cancer Additional Family Medical History / Comment(s): kidney, Thyroid Father Family Medical History: Coronary Artery Disease (CAD) Additional Family Medical History / Comment(s): AT AGE 53. General Exam Limitations: no limitations Course Vital Signs 06/23/19 06/23/19 20:32 20:41 Temperature 97.6 F Pulse Rate 77 73 Respiratory 18 18 Rate Blood Pressure 148/78 143/70 O2 Sat by Pulse 96 96 Oximetry Medical Decision Making - Lab Data Result diagrams: 06/23/19 20:35 06/23/19 20:35 Lab Results 06/23/19 06/23/19 06/23/19 Range/Units 20:35 20:35 20:35 WBC 4.9 (3.8-10.6) k/uL RBC 4.35 (4.30-5.90) m/uL Hgb 14.0 (13.0-17.5) gm/dL Hct 41.7 (39.0-53.0) % MCV 95.9 (80.0-100.0) fL MCH 32.2 (25.0-35.0) pg MCHC 33.6 (31.0-37.0) g/dL RDW 14.7 (11.5-15.5) % Plt Count 152 (150-450) k/uL Neutrophils % 82 % Lymphocytes % 13 % Monocytes % 3 % Eosinophils % 0 % Basophils % 0 % Neutrophils # 4.0 (1.3-7.7) k/uL Lymphocytes # 0.6 L (1.0-4.8) k/uL Monocytes # 0.1 (0-1.0) k/uL Eosinophils # 0.0 (0-0.7) k/uL Basophils # 0.0 (0-0.2) k/uL VBG pH (7.31-7.41) VBG pCO2 (37-51) mmHg VBG HCO3 (24-28) mmol/L Sodium 137 (137-145) mmol/L Potassium 4.1 (3.5-5.1) mmol/L Chloride 95 L (98-107) mmol/L Carbon Dioxide 24 (22-30) mmol/L Anion Gap 18 mmol/L BUN 39 H (9-20) mg/dL Creatinine 1.28 H (0.66-1.25) mg/dL Est GFR (CKD-EPI)AfAm 60 (>60 ml/min/1.73 sqM) Est GFR (CKD-EPI)NonAf 52 (>60 ml/min/1.73 sqM) Glucose 250 H (74-99) mg/dL Calcium 9.3 (8.4-10.2) mg/dL NT-Pro-B Natriuret Pep 137 pg/mL 06/23/19 Range/Units 21:08 WBC (3.8-10.6) k/uL RBC (4.30-5.90) m/uL Hgb (13.0-17.5) gm/dL Hct (39.0-53.0) % MCV (80.0-100.0) fL MCH (25.0-35.0) pg MCHC (31.0-37.0) g/dL RDW (11.5-15.5) % Plt Count (150-450) k/uL Neutrophils % % Lymphocytes % % Monocytes % % Eosinophils % % Basophils % % Neutrophils # (1.3-7.7) k/uL Lymphocytes # (1.0-4.8) k/uL Monocytes # (0-1.0) k/uL Eosinophils # (0-0.7) k/uL Basophils # (0-0.2) k/uL VBG pH 7.48 H (7.31-7.41) VBG pCO2 37 (37-51) mmHg VBG HCO3 27 (24-28) mmol/L Sodium (137-145) mmol/L Potassium (3.5-5.1) mmol/L Chloride (98-107) mmol/L Carbon Dioxide (22-30) mmol/L Anion Gap mmol/L BUN (9-20) mg/dL Creatinine (0.66-1.25) mg/dL Est GFR (CKD-EPI)AfAm (>60 ml/min/1.73 sqM) Est GFR (CKD-EPI)NonAf (>60 ml/min/1.73 sqM) Glucose (74-99) mg/dL Calcium (8.4-10.2) mg/dL NT-Pro-B Natriuret Pep pg/mL Disposition Clinical Impression: Cough, Syncope Disposition: ADMITTED IP TO THIS HOSP Condition: Fair Referrals: Sumit Dozier DO [Primary Care Provider] - 1-2 days Decision Time: 22:20
[2019-06-23 21:16] LABS: Basophils % (A) 0 %; Eosinophils % (A) 0 %; HCT 41.7 % (39.0-53.0); Lymphocytes # (A) 0.6 k/uL (1.0-4.8); Lymphocytes % (A) 13 %; MCH 32.2 pg (25.0-35.0); MCHC 33.6 g/dL (31.0-37.0); MCV 95.9 fL (80.0-100.0); Mean Platelet Volume 8.9; Monocytes # (A) 0.1 k/uL (0-1.0); Monocytes % (A) 3 %; Neutrophils % (A) 82 %; Platelet Count 152 k/uL (150-450); RBC 4.35 m/uL (4.30-5.90); RDW 14.7 % (11.5-15.5); WBC 4.9 k/uL (3.8-10.6)
[2019-06-23 21:19] LABS: VBG PH 7.48 (7.31-7.41)
[2019-06-23 21:24] LABS: Calcium 9.3 mg/dL (8.4-10.2); Potassium 4.1 mmol/L (3.5-5.1)
--- NOTE | 2019-06-23 21:47 | XR ---
EXAMINATION: XR chest 2V DATE AND TIME: 06/23/2019 9:18 PM CLINICAL INDICATION: PHH; dyspnea, history esophageal carcinoma. TECHNIQUE: Departmental protocol COMPARISON: 04/05/2019 FINDINGS: The lungs demonstrate a fine reticular pattern of increased attenuation bilaterally throughout the cody ngs, mildly silhouetting the pulmonary vasculature are presentation. This pattern is consistent with a clinical diagnosis of mild interstitial phase pulmonary edema, presumably cardiogenic etiology give n the moderately enlarged cardiac silhouette.. The pleural spaces are negative as seen. The skeletal structures and soft tissues are negative for acute findings. IMPRESSION: Radiographic findings suggestive mild cardiogenic pulmonary edema.
[2019-06-23] MEDS ORDERED: NALOXONE 0.4 MG/ML 1 ML VIAL IV PRN (22:17)
[2019-06-23] MEDS ORDERED: ZOLPIDEM 10 MG TAB PO SCH (23:45)
[2019-06-23] MEDS: SODIUM CHLORIDE 0.9% 1,000 ML IV SCH (23:50)
[2019-06-24] MEDS ORDERED: ZOLPIDEM 5 MG TAB PO SCH (00:16)
[2019-06-24] MEDS: GABAPENTIN 400 MG CAP PO SCH ×2 (00:25→21:13)
[2019-06-24 07:08] LABS: Glucose,Whole Blood 309 mg/dL (75-99)
[2019-06-24] MEDS: INSULIN ASPART (NovoLOG) 100 UNIT/ML VIAL SQ SCH ×4 (08:53→19:45)
[2019-06-24] MEDS ORDERED: NITROGLYCERIN SL TABS 0.4 MG TAB SUBLINGUAL PRN (11:27)
[2019-06-24] MEDS ORDERED: IPRATROPIUM-ALBUTEROL 3 ML NEB INHALATION PRN (11:27)
[2019-06-24 11:53] LABS: Glucose,Whole Blood 344 mg/dL (75-99)
[2019-06-24] MEDS: methylPREDNISolone SOD SUCCI 40 MG/ML 1 ML VIAL IV SCH ×2 (14:35→21:12)
[2019-06-24] MEDS: guaiFENesin-Coden 100-10MG/5ML 10 ML CUP PO PRN (14:37)
--- NOTE | 2019-06-24 15:12 | P.HPIM ---
History of Present Illness A very pleasant 83-year-old male came in with compensative shortness of breath having coughing episodes coughing spells leading to cyanosis central cyanosis and vasovagal syncope events. Patient the is unable to stop coughing and is having multiple syncopes. Patient had radiation therapy to the chest to for his esophageal cancer which is in remission at this time at this point of time since then patient is having this problems for bronchospasm. Patient has crackles on exam as well patient may have interstitial lung disease or fibrosis related to radiation therapy. Patient clinically his volume depleted because of which I'll start him IV fluids stop of stop the diuretics at this time patient had normal ejection fraction in the past, patient does not appear to have even diastolic dysfunction the echocardiogram patient appears to have some mild aortic stenosis. Patient appears to have normal creatinine in recent time now had his creatinine is 1.28 patient denied any fever chills is no pneumonic infiltrate on the chest x-ray patient never smoked. Patient's BNP and appears to be around 100. Review of Systems REVIEW OF SYSTEMS: CONSTITUTIONAL: No fever, no malaise, no fatigue. HEENT: No recent visual problems or hearing problems. Denied any sore throat. CARDIOVASCULAR: No chest pain, orthopnea, PND, no palpitations, no syncope. PULMONARY: As mentioned in HPI GASTROINTESTINAL: No diarrhea, no nausea, no vomiting, no abdominal pain. NEUROLOGICAL: No headaches, no weakness, no numbness. HEMATOLOGICAL: Denies any bleeding or petechiae. GENITOURINARY: Denies any burning micturition, frequency, or urgency. MUSCULOSKELETAL/RHEUMATOLOGICAL: Denies any joint pain, swelling, or any muscle pain. ENDOCRINE: Denies any polyuria or polydipsia. The rest of the 14-point review of systems is negative. Past Medical History Past Medical History: Cancer, Diabetes Mellitus, GERD/Reflux, Hearing Disorder / Deafness, Hyperlipidemia, Hypertension, Memory Impairment, Musculoskeletal Disorder, Osteoarthritis (OA), Pneumonia, Renal Disease Additional Past Medical History / Comment(s): Fractures L2-L4 w/ paul[place] leg pain, epidural injections. DDD, Gout, CARDOSO'S esophagus, Esophageal CA-completed 28 radiation tx on 09/08/17, & 5 chemo tx 09/02/17. 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 "Some memory impairment RT to pain Rx." History of Any Multi-Drug Resistant Organisms: None Reported Past Surgical History: Appendectomy, Back Surgery, Orthopedic Surgery Additional Past Surgical History / Comment(s): Bilateral rotator cuff surgery, left foot surgery, thinks he has plate and screws, "esophagus radiofrequency ablation", paulina cataracts-lens implants, kyphoplasty. Pain procedures. epidural steroid injection in back Past Anesthesia/Blood Transfusion Reactions: No Reported Reaction Additional Past Anesthesia/Blood Transfusion Reaction / Comment(s): . Past Psychological History: No Psychological Hx Reported Smoking Status: Never smoker Past Alcohol Use History: Daily Additional Past Alcohol Use History / Comment(s): . Past Drug Use History: None Reported - Past Family History Mother Family Medical History: Cancer Additional Family Medical History / Comment(s): kidney, Thyroid Father Family Medical History: Coronary Artery Disease (CAD) Additional Family Medical History / Comment(s): AT AGE 53. Medications and Allergies Home Medications Medication Instructions Recorded Confirmed Type Cetirizine HCl 10 mg PO DAILY 07/05/15 06/23/19 History Nitroglycerin Sl Tabs [Nitrostat] 0.4 mg SUBLINGUAL Q5M PRN 07/05/15 06/23/19 History Pravastatin Sodium [Pravachol] 80 mg PO HS 09/01/17 06/23/19 History Gabapentin [Neurontin] 600 mg PO BID@0800,1800 09/09/17 06/23/19 History Potassium Chloride ER [K-Dur 10] 10 meq PO BID 09/24/17 06/23/19 History metFORMIN HCL [Glucophage] 1,000 mg PO BID 09/24/17 06/23/19 History Aspirin EC [Ecotrin Low Dose] 81 mg PO DAILY 12/24/17 06/23/19 History Allopurinol [Zyloprim] 300 mg PO DAILY 01/26/18 06/23/19 History Gabapentin [Neurontin] 1,200 mg PO HS 01/26/18 06/23/19 History Omeprazole 40 mg PO BID 01/26/18 06/23/19 History Torsemide [Demadex] 100 mg PO DAILY 01/26/18 06/23/19 History Magnesium Oxide 400 mg PO BID 08/04/18 06/23/19 History Zolpidem [Ambien] 10 mg PO HS 08/04/18 06/23/19 History INSULIN LISPRO (humaLOG) [humaLOG] See Protocol SQ ACHS PRN 12/01/18 06/23/19 History Insulin Glargine,Hum.rec.anlog 40 unit SQ QAM 12/01/18 06/24/19 History [Lantus Solostar] Meloxicam [Mobic] 7.5 mg PO DAILY #60 tab 12/22/18 06/23/19 Rx Ipratropium-Albuterol Nebulize 3 ml INHALATION RT-QID PRN 04/22/19 06/23/19 History [Duoneb 0.5 mg-3 mg/3 ml Soln] Diclofenac Sodium Gel [Voltaren 1 applic TOPICAL BID 05/06/19 06/23/19 History Gel] Budesonide [Pulmicort] 1 mg INHALATION RT-DAILY 06/16/19 06/23/19 History Metoprolol Tartrate [Lopressor] 12.5 mg PO DAILY 06/23/19 06/23/19 History predniSONE See Taper PO DAILY 06/23/19 06/23/19 History Albuterol Sulfate [Proair Hfa] 1 - 2 puff INHALATION RT-Q4H PRN 06/24/19 06/24/19 History Insulin Glargine,Hum.rec.anlog 20 unit SQ HS 06/24/19 06/24/19 History [Lantus Solostar] Allergies Allergy/AdvReac Type Severity Reaction Status Date / Time latex Allergy Rash/Hives Verified 06/21/19 08:30 penicillin G Allergy Rash/Hives Verified 06/21/19 08:30 Physical Exam Vitals: Vital Signs Temp Pulse Pulse Resp BP BP Pulse Ox 06/24/19 12:10 97.9 F 68 16 128/62 95 06/24/19 05:06 97.4 F L 63 18 129/74 93 L 06/24/19 00:00 18 06/23/19 23:00 96.5 F L 66 16 124/69 99 06/23/19 22:35 66 18 130/77 99 06/23/19 20:41 73 18 143/70 96 06/23/19 20:32 97.6 F 77 18 148/78 96 Intake and Output 06/23/19 06/24/19 06/24/19 22:59 06:59 14:59 Intake Total 360 160 Balance 360 160 Intake: Intake, IV Titration 120 160 Amount Sodium Chloride 0.9% 1, 120 160 000 ml @ 20 mls/hr IV . Q24H [facility] Rx#:[id number] Oral 240 Other: # Voids 1 Weight 88.451 kg PHYSICAL EXAMINATION: GENERAL: The patient is alert and oriented x3, not in any acute distress. Obese HEENT: Pupils are round and equally reacting to light. EOMI. No scleral icterus. No conjunctival pallor. Normocephalic, atraumatic. No pharyngeal erythema. No thyromegaly. CARDIOVASCULAR: S1 and S2 present. No murmurs, rubs, or gallops. PULMONARY: Decreased air entry bilateral lung nogueira diffuse tach diffuse wheezi ng bilaterally ABDOMEN: Soft, nontender, nondistended, normoactive bowel sounds. No palpable organomegaly. MUSCULOSKELETAL: No joint swelling or deformity. EXTREMITIES: No cyanosis, clubbing, or pedal edema. NEUROLOGICAL: Gross neurological examination did not reveal any focal deficits. SKIN: No rashes. Results CBC & Chem 7: 06/23/19 20:35 06/23/19 20:35 Labs: Abnormal Lab Results - Last 24 Hours (Table) 06/23/19 06/23/19 06/23/19 Range/Units 20:35 20:35 21:08 Lymphocytes # 0.6 L (1.0-4.8) k/uL VBG pH 7.48 H (7.31-7.41) Chloride 95 L (98-107) mmol/L BUN 39 H (9-20) mg/dL Creatinine 1.28 H (0.66-1.25) mg/dL Glucose 250 H (74-99) mg/dL POC Glucose (mg/dL) (75-99) mg/dL 06/24/19 06/24/19 Range/Units 07:06 11:51 Lymphocytes # (1.0-4.8) k/uL VBG pH (7.31-7.41) Chloride (98-107) mmol/L BUN (9-20) mg/dL Creatinine (0.66-1.25) mg/dL Glucose (74-99) mg/dL POC Glucose (mg/dL) 309 H 344 H (75-99) mg/dL Thrombosis Risk Factor Assmnt - Choose All That Apply Any of the Below Risk Factors Present?: Yes Each Factor Represents 1 point: Obesity (BMI >25) Each Risk Factor Represents 3 Points: Age 75 years or older Thrombosis Risk Factor Assessment Total Risk Factor Score: 4 Thrombosis Risk Factor Assessment Level: Moderate Risk Assessment and Plan Plan: Shortness of breath: Secondary to severe bronchospasm and probable interstitial lung disease or pulmonary fibrosis from radiation therapy. Patient will be started on inhalational treatments, systemic steroids pulmonary will evaluated the patient is well. --Vasovagal syncope from a coughing spells expected to improve with improvement of coughing will continue breathing treatments and also use as there is no new evidence of pneumonia Bactrim bronchitis -Acute renal failure: Prerenal azotemia from excessive diuretic therapy diuretic therapy will be held and patient will be given a liter of fluid as per the Echocardiogram that no significant valvular abnormalities does not appear to have systolic or diastolic dysfunction not sure patient actually needs any diuretic therapy now or as an outpatient -Esophageal cancer which is in remission -Type 2 diabetes mellitus -Hyperlipidemia -Hypertension DVT prophylaxis with the Ceftin is heparin GI prophylaxis with the Pepcid
[2019-06-24] MEDS: IPRATROPIUM-ALBUTEROL 3 ML NEB INHALATION SCH ×2 (15:32→19:22)
--- NOTE | 2019-06-24 15:42 | P.CNPUL ---
<Heather Lara - Last Filed: 06/24/19 15:27> History of Present Illness Consult date: 06/24/19 Requesting physician: Bear Sampson Reason for consult: cough Chief complaint: Cough syncope History of present illness: This is a very pleasant 83-year-old gentleman who follows with Dr. Dozier as his primary care provider. He has a history of gout, esophageal cancer with previous radiation, hypertension, osteoarthritis, hyperlipidemia, chronic cough. He follows with Dr. Brown in our office. 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 He has history of esophageal cancer in the last CAT scan of the chest was done in January 2019 and he did have some scarring in the lung bases without evidence of any tumor progression or recurrence. His pulmonary function test was normal back in July 2018. He has been seen in the office on multiple occasions for this chronic cough. He has been maintained on steroids even on maintenance steroids without much improvement. He was most recently seen there at this week with worsening cough and near syncopal episodes. He was treated with Depo-Medrol, cough suppressants and steroids. Yesterday the patient was having episodes of cough syncope due to significant bronchospasm. He had an episode here in the emergency room as well. He was admitted for the same. Chest x-ray shows some mild cardiogenic pulmonary edema. White count 4.9. Hemoglobin 14.0. Creatinine 1.28. ProBNP 137. He been initiated on DuoNeb inhalations, Pulmicort and Perforomist inhalations, IV Solu-Medrol. Review of Systems REVIEW OF SYSTEMS: CONSTITUTIONAL: Denies any recent significant weight loss or weight gain. EYES: Denies change in vision. EARS, NOSE, MOUTH, THROAT: Denies headaches, denies sore throat. CARDIOVASCULAR: Denies chest pain, palpitations or syncopal episodes. RESPIRATORY: Positive for chronic cough with episodes of cough syncope. GASTROINTESTINAL: Denies change in appetite, denies abdominal pain GENITOURINARY: Denies hematuria, denies infections. MUSKULOSKELETAL: Denies pain, denies swelling. INTEGUMENTARY: Denies rash, denies eczema. NEUROLOGICAL: Denies recent memory loss, no recent seizure activity. PSYCHIATRIC: Denies anxiety, denies depression. HEMATOLOGIC/LYMPHATIC: Denies anemia, denies enlarged lymph nodes. Past Medical History Past Medical History: Cancer, Diabetes Mellitus, GERD/Reflux, Hearing Disorder / Deafness, Hyperlipidemia, Hypertension, Memory Impairment, Musculoskeletal Disorder, Osteoarthritis (OA), Pneumonia, Renal Disease Additional Past Medical History / Comment(s): Fractures L2-L4 w/ paulina leg pain, epidural injections. DDD, Gout, CARDOSO'S esophagus, Esophageal CA-completed 28 radiation tx on 09/08/17, & 5 chemo tx 09/02/17. 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 "Some memory impairment RT to pain Rx." History of Any Multi-Drug Resistant Organisms: None Reported Past Surgical History: Appendectomy, Back Surgery, Orthopedic Surgery Additional Past Surgical History / Comment(s): Bilateral rotator cuff surgery, left foot surgery, thinks he has plate and screws, "esophagus radiofrequency ablation", paulina cataracts-lens implants, kyphoplasty. Pain procedures. epidural steroid injection in back Past Anesthesia/Blood Transfusion Reactions: No Reported Reaction Additional Past Anesthesia/Blood Transfusion Reaction / Comment(s): . Past Psychological History: No Psychological Hx Reported Smoking Status: Never smoker Past Alcohol Use History: Daily Additional Past Alcohol Use History / Comment(s): . Past Drug Use History: None Reported - Past Family History Mother Family Medical History: Cancer Additional Family Medical History / Comment(s): kidney, Thyroid Father Family Medical History: Coronary Artery Disease (CAD) Additional Family Medical History / Comment(s): AT AGE 53. Medications and Allergies Home Medications Medication Instructions Recorded Confirmed Type Cetirizine HCl 10 mg PO DAILY 07/05/15 06/23/19 History Nitroglycerin Sl Tabs [Nitrostat] 0.4 mg SUBLINGUAL Q5M PRN 07/05/15 06/23/19 History Pravastatin Sodium [Pravachol] 80 mg PO HS 09/01/17 06/23/19 History Gabapentin [Neurontin] 600 mg PO BID@0800,1800 09/09/17 06/23/19 History Potassium Chloride ER [K-Dur 10] 10 meq PO BID 09/24/17 06/23/19 History metFORMIN HCL [Glucophage] 1,000 mg PO BID 09/24/17 06/23/19 History Aspirin EC [Ecotrin Low Dose] 81 mg PO DAILY 12/24/17 06/23/19 History Allopurinol [Zyloprim] 300 mg PO DAILY 01/26/18 06/23/19 History Gabapentin [Neurontin] 1,200 mg PO HS 01/26/18 06/23/19 History Omeprazole 40 mg PO BID 01/26/18 06/23/19 History Torsemide [Demadex] 100 mg PO DAILY 01/26/18 06/23/19 History Magnesium Oxide 400 mg PO BID 08/04/18 06/23/19 History Zolpidem [Ambien] 10 mg PO HS 08/04/18 06/23/19 History INSULIN LISPRO (humaLOG) [humaLOG] See Protocol SQ ACHS PRN 12/01/18 06/23/19 History Insulin Glargine,Hum.rec.anlog 40 unit SQ QAM 12/01/18 06/24/19 History [Lantus Solostar] Meloxicam [Mobic] 7.5 mg PO DAILY #60 tab 12/22/18 06/23/19 Rx Ipratropium-Albuterol Nebulize 3 ml INHALATION RT-QID PRN 04/22/19 06/23/19 History [Duoneb 0.5 mg-3 mg/3 ml Soln] Diclofenac Sodium Gel [Voltaren 1 applic TOPICAL BID 05/06/19 06/23/19 History Gel] Budesonide [Pulmicort] 1 mg INHALATION RT-DAILY 06/16/19 06/23/19 History Metoprolol Tartrate [Lopressor] 12.5 mg PO DAILY 06/23/19 06/23/19 History predniSONE See Taper PO DAILY 06/23/19 06/23/19 History Albuterol Sulfate [Proair Hfa] 1 - 2 puff INHALATION RT-Q4H PRN 06/24/19 06/24/19 History Insulin Glargine,Hum.rec.anlog 20 unit SQ HS 06/24/19 06/24/19 History [Lantus Solostar] Allergies Allergy/AdvReac Type Severity Reaction Status Date / Time latex Allergy Rash/Hives Verified 06/21/19 08:30 penicillin G Allergy Rash/Hives Verified 06/21/19 08:30 Physical Exam Vitals: Vital Signs Temp Pulse Pulse Resp BP BP Pulse Ox 06/24/19 12:10 97.9 F 68 16 128/62 95 06/24/19 05:06 97.4 F L 63 18 129/74 93 L 06/24/19 00:00 18 06/23/19 23:00 96.5 F L 66 16 124/69 99 06/23/19 22:35 66 18 130/77 99 06/23/19 20:41 73 18 143/70 96 06/23/19 20:32 97.6 F 77 18 148/78 96 Intake and Output 06/24/19 06/24/19 06/24/19 06:59 14:59 22:59 Intake Total 360 160 Balance 360 160 Intake: Intake, IV Titration 120 160 Amount Sodium Chloride 0.9% 1, 120 160 000 ml @ 20 mls/hr IV . Q24H [facility] Rx#:[id number] Oral 240 Other: # Voids 1 GENERAL EXAM: Alert, obese, very pleasant 83-year-old gentleman, on 2 L nasal cannula, comfortable in no apparent distress. HEAD: Normocephalic. EYES: Normal reaction of pupils, equal size. NOSE: Clear with pink turbinates. THROAT: No erythema or exudates. NECK: No masses, no JVD. CHEST: No chest wall deformity. LUNGS: Equal air entry with faint crackles in the posterior bases. CVS: S1 and S2 normal with no audible murmur, regular rhythm. ABDOMEN: No hepatosplenomegaly, normal bowel sounds, no guarding or rigidity. SPINE: No scoliosis or deformity SKIN: No rashes CENTRAL NERVOUS SYSTEM: No focal deficits, tone is normal in all 4 extremities. EXTREMITIES: There is no peripheral edema. No clubbing, no cyanosis. Peripheral pulses are intact. Results - Laboratory Findings CBC and BMP: 06/23/19 20:35 06/23/19 20:35 Abnormal lab findings: Abnormal Labs 06/23/19 06/23/19 06/23/19 20:35 20:35 21:08 Lymphocytes # 0.6 L VBG pH 7.48 H Chloride 95 L BUN 39 H Creatinine 1.28 H Glucose 250 H POC Glucose (mg/dL) 06/24/19 06/24/19 07:06 11:51 Lymphocytes # VBG pH Chloride BUN Creatinine Glucose POC Glucose (mg/dL) 309 H 344 H Assessment and Plan Assessment: 1 Acute on chronic cough with episodes of cough syncope possibly vasovagal in nature. 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 Brown. Chest x-ray and labs were reviewed. The patient has had ongoing issues with coughing cough syncope. Suspect some vasovagal reaction. The patient has had radiation treatment to the esophagus. Continue IV Solu-Medrol, continue bronchodilators. We'll continue to follow and make further recommendations based on his clinical status. I, the cosigning physician, performed a history & physical examination of the patient. Lungs sounds with coarse crackles in the posterior bases. Maintaining good O2 saturations in the 90s on room air. I discussed the assessment and plan of care with my nurse practitioner, Heather Lara. I attest to the above consultation as dictated by her. Time with Patient: Greater than 30 <Wilder Brown - Last Filed: 06/24/19 17:05> Physical Exam Vitals: Vital Signs Temp Pulse Pulse Resp BP BP Pulse Ox 06/24/19 16:00 56 L 06/24/19 15:35 48 L 06/24/19 12:10 97.9 F 68 16 128/62 95 06/24/19 05:06 97.4 F L 63 18 129/74 93 L 06/24/19 00:00 18 06/23/19 23:00 96.5 F L 66 16 124/69 99 06/23/19 22:35 66 18 130/77 99 06/23/19 20:41 73 18 143/70 96 06/23/19 20:32 97.6 F 77 18 148/78 96 Intake and Output 06/24/19 06/24/19 06/24/19 06:59 14:59 22:59 Intake Total 360 160 Balance 360 160 Intake: Intake, IV Titration 120 160 Amount Sodium Chloride 0.9% 1, 120 160 000 ml @ 20 mls/hr IV . Q24H [facility] Rx#:[id number] Oral 240 Other: # Voids 1 Results - Laboratory Findings CBC and BMP: 06/23/19 20:35 06/23/19 20:35 Abnormal lab findings: Abnormal Labs 06/23/19 06/23/19 06/23/19 20:35 20:35 21:08 Lymphocytes # 0.6 L VBG pH 7.48 H Chloride 95 L BUN 39 H Creatinine 1.28 H Glucose 250 H POC Glucose (mg/dL) 06/24/19 06/24/19 06/24/19 07:06 11:51 16:49 Lymphocytes # VBG pH Chloride BUN Creatinine Glucose POC Glucose (mg/dL) 309 H 344 H 490 H Assessment and Plan Assessment: The exact cause for this patient's cough is not clear. The patient is post ARDS scarring in the lung bases which is quite limited in nature. Nevertheless, approximately a month ago is cough exacerbated and since that his been progressively getting worse. Rule out superinfection with viral el ement/organisms. Would proceed with a CAT scan of the chest that would be crucial to investigate his cough knowing that he has history of malignancy including esophageal cancer. We'll going to consider bronchoscopy with lavage later stage. Continue bronchodilators. Continue steroids. Continue cough medication.
[2019-06-24 16:51] LABS: Glucose,Whole Blood 490 mg/dL (75-99)
[2019-06-24] MEDS ORDERED: INSULIN ASPART (NovoLOG) 100 UNIT/ML VIAL SQ ONE ×2 (17:02→19:30)
[2019-06-24] MEDS: GABAPENTIN 300 MG CAP PO SCH (17:23)
[2019-06-24] MEDS: FAMOTIDINE 20 MG TAB PO SCH (17:23)
--- NOTE | 2019-06-24 18:12 | CT ---
EXAMINATION TYPE: CT chest wo con DATE OF EXAM: 06/24/2019 COMPARISON: 02/11/2019 HISTORY: Cough. CT DLP: 469 mGycm Automated exposure control for dose reduction was used. Multiple axial sections were obtained from the thoracic inlet to the diaphragm with no contrast. FINDINGS: There is some patchy mild infiltrate and atelectasis at the lung bases. Heart is slightly enlarged. T here is no pericardial effusion. There is no pleural effusion. There is extensive at the right fernandez ry artery calcification. 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 There is no mediastinal adenopathy. There are no hilar masses. Upper abdominal soft tissues are intact. There is spurring in the thoracic spine. There is anterior wedging of T12 vertebra with 20% loss of h eight appears old. IMPRESSION: Interstitial infiltrates and atelectasis at the lung bases consistent with scarring that is not signi ficantly different than last exam. Stable cardiomegaly. Atherosclerotic vascular calcification. Stabl e mild aneurysm of the ascending aorta. Mild compression fracture of T12 unchanged.
[2019-06-24 19:03] LABS: Glucose,Whole Blood 505 mg/dL (75-99)
[2019-06-24] MEDS ORDERED: INSULIN DETEMIR (LEVEMIR) 100 UNIT/ML SYR SQ SCH (21:00)
[2019-06-24] MEDS ORDERED: FAMOTIDINE 20 MG TAB PO SCH (21:00)
[2019-06-24] MEDS: MAGNESIUM OXIDE 400 MG TAB PO SCH (21:12)
[2019-06-24] MEDS: HEPARIN SODIUM,PORCINE 5,000 UNIT/ML 1 ML VIAL SQ SCH (21:12)
[2019-06-24] MEDS: PRAVASTATIN SODIUM 80 MG TAB PO SCH (21:13)
[2019-06-24] MEDS: ZOLPIDEM 5 MG TAB PO PRN (21:16)
[2019-06-24] MEDS: INSULIN DETEMIR (LEVEMIR) 100 UNIT/ML SYR SQ SCH (21:57)
[2019-06-25] MEDS: SODIUM CHLORIDE 0.9% 1,000 ML IV SCH ×2 (05:43→12:20)
[2019-06-25 06:58] LABS: Glucose,Whole Blood 374 mg/dL (75-99)
[2019-06-25 07:05] LABS: HCT 42.8 % (39.0-53.0); HGB 13.4 gm/dL (13.0-17.5); MCH 30.4 pg (25.0-35.0); MCHC 31.2 g/dL (31.0-37.0); MCV 97.5 fL (80.0-100.0); Mean Platelet Volume 8.9; Platelet Count 159 k/uL (150-450); RBC 4.39 m/uL (4.30-5.90); RDW 15.1 % (11.5-15.5); WBC 10.8 k/uL (3.8-10.6)
[2019-06-25 07:16] LABS: Calcium 8.9 mg/dL (8.4-10.2); Potassium 4.7 mmol/L (3.5-5.1)
[2019-06-25] MEDS: BUDESONIDE 1 MG/2 ML NEBU INHALATION SCH (07:57)
[2019-06-25] MEDS: IPRATROPIUM-ALBUTEROL 3 ML NEB INHALATION SCH ×4 (07:57→20:47)
[2019-06-25] MEDS: INSULIN ASPART (NovoLOG) 100 UNIT/ML VIAL SQ SCH ×4 (08:15→21:03)
[2019-06-25] MEDS: methylPREDNISolone SOD SUCCI 40 MG/ML 1 ML VIAL IV SCH ×2 (08:16→21:04)
[2019-06-25] MEDS: GABAPENTIN 300 MG CAP PO SCH ×2 (09:46→17:39)
[2019-06-25] MEDS: INSULIN DETEMIR (LEVEMIR) 100 UNIT/ML SYR SQ SCH ×2 (09:46→21:04)
[2019-06-25] MEDS: MAGNESIUM OXIDE 400 MG TAB PO SCH ×2 (09:47→21:04)
[2019-06-25] MEDS: METOPROLOL TARTRATE 12.5 MG TAB PO SCH (09:47)
[2019-06-25] MEDS: FAMOTIDINE 20 MG TAB PO SCH ×2 (09:47→21:03)
[2019-06-25] MEDS: HEPARIN SODIUM,PORCINE 5,000 UNIT/ML 1 ML VIAL SQ SCH ×2 (09:47→21:04)
[2019-06-25] MEDS: ASPIRIN 81 MG PO SCH (09:47)
[2019-06-25] MEDS: guaiFENesin-Coden 100-10MG/5ML 10 ML CUP PO PRN ×2 (09:53→21:05)
[2019-06-25 11:32] LABS: Glucose,Whole Blood 525 mg/dL (75-99)
--- NOTE | 2019-06-25 11:57 | P.PN ---
Subjective Progress Note Date: 06/25/19 This is a very pleasant 83-year-old gentleman who follows with Dr. Dozier as his primary care provider. He has a history of gout, esophageal cancer with previous radiation, hypertension, osteoarthritis, hyperlipidemia, chronic cough. He follows with Dr. Brown in our office. 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 He has history of esophageal cancer in the last CAT scan of the chest was done in January 2019 and he did have some scarring in the lung bases without evidence of any tumor progression or recurrence. His pulmonary function test was normal back in July 2018. He has been seen in the office on multiple occasions for this chronic cough. He has been maintained on steroids even on maintenance steroids without much improvement. He was most recently seen there at this week with worsening cough and near syncopal episodes. He was treated with Depo-Medrol, cough suppressants and steroids. Yesterday the patient was having episodes of cough syncope due to significant bronchospasm. He had an episode here in the emergency room as well. He was admitted for the same. Chest x-ray shows some mild cardiogenic pulmonary edema. White count 4.9. Hemoglobin 14.0. Creatinine 1.28. ProBNP 137. He been initiated on DuoNeb inhalations, Pulmicort and Perforomist inhalations, IV Solu-Medrol. On 06/25/2019 the patient is still bronchospastic and wheezy. His having coughing spells. No syncopal episodes. 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 Nevertheless, no acute abnormalities were noted. The lungs were well expanded. No airspace disease. No pneumonias. No evidence of any malignancy. He has no fever or chills. His white cell count is not elevated. He is on bronchodilators. His IV Solu Medrol 40 mg every 12 hours and his blood sugars a re slightly elevated requiring Lantus and sliding scale coverage for blood sugar control. I was contemplating a bronchoscopy today. Discussed canceled due to his ongoing cough is quite considerably aggressive. Objective - Vital Signs Vital signs: Vital Signs Temp 98.1 F 06/25/19 05:00 Pulse 76 06/25/19 11:41 Resp 18 06/25/19 05:00 BP 142/79 06/25/19 05:00 Pulse Ox 95 06/25/19 05:00 Intake & Output 06/24/19 06/25/19 06/25/19 18:59 06:59 18:59 Intake Total 160 Balance 160 Intake: Intake, IV Titration 160 Amount Sodium Chloride 0.9% 1, 160 000 ml @ 75 mls/hr IV . [id number] [facility] Rx#:[id number] Other: # Voids 1 - Exam GENERAL EXAM: Alert, obese, very pleasant 83-year-old gentleman, on 2 L nasal cannula, comfortable in no apparent distress. HEAD: Normocephalic. EYES: Normal reaction of pupils, equal size. NOSE: Clear with pink turbinates. THROAT: No erythema or exudates. NECK: No masses, no JVD. CHEST: No chest wall deformity. LUNGS: Equal air entry with faint crackles in the posterior bases. CVS: S1 and S2 normal with no audible murmur, regular rhythm. ABDOMEN: No hepatosplenomegaly, normal bowel sounds, no guarding or rigidity. SPINE: No scoliosis or deformity SKIN: No rashes CENTRAL NERVOUS SYSTEM: No focal deficits, tone is normal in all 4 extremities. EXTREMITIES: There is no peripheral edema. No clubbing, no cyanosis. Peripheral pulses are intact. - Labs CBC & Chem 7: 06/25/19 06:16 06/25/19 06:16 Labs: Abnormal Lab Results - Last 24 Hours (Table) 06/24/19 06/24/19 06/25/19 Range/Units 16:49 19:01 06:16 WBC 10.8 H (3.8-10.6) k/uL BUN (9-20) mg/dL Glucose (74-99) mg/dL POC Glucose (mg/dL) 490 H 505 H (75-99) mg/dL 06/25/19 06/25/19 06/25/19 Range/Units 06:16 06:57 11:27 WBC (3.8-10.6) k/uL BUN 33 H (9-20) mg/dL Glucose 355 H (74-99) mg/dL POC Glucose (mg/dL) 374 H 525 H (75-99) mg/dL Assessment and Plan Plan: 1 Acute on chronic cough with episodes of cough syncope possibly vasovagal in nature. 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 There is some old scarring in lung bases bilaterally to previous ARDS. Clinically the patient is not much improved. Continue same treatment. Bronchoscopy with next 24-48 hours if no improvement. Check a pro-calcitonin level to see if there is any indication for an underlying bacterial infection. If low, viral bronchitis he is to be considered. Cough Suppression. Blood sugar management. Steroid treatment. We'll follow.
[2019-06-25 13:58] LABS: Hemoglobin A1C 7.8 % (4.0-6.0)
[2019-06-25 17:08] LABS: Glucose,Whole Blood 489 mg/dL (75-99)
[2019-06-25 19:47] LABS: Glucose,Whole Blood 442 mg/dL (75-99)
[2019-06-25] MEDS ORDERED: INSULIN ASPART (NovoLOG) 100 UNIT/ML VIAL SQ ONE (20:40)
[2019-06-25] MEDS: GABAPENTIN 400 MG CAP PO SCH (21:04)
[2019-06-25] MEDS: ZOLPIDEM 5 MG TAB PO PRN (21:05)
[2019-06-25] MEDS: PRAVASTATIN SODIUM 80 MG TAB PO SCH (22:10)
[2019-06-26 06:56] LABS: Glucose,Whole Blood 152 mg/dL (75-99)
[2019-06-26] MEDS: BUDESONIDE 1 MG/2 ML NEBU INHALATION SCH (07:58)
[2019-06-26] MEDS: IPRATROPIUM-ALBUTEROL 3 ML NEB INHALATION SCH ×4 (07:58→20:28)
[2019-06-26] MEDS: INSULIN DETEMIR (LEVEMIR) 100 UNIT/ML SYR SQ SCH ×2 (07:58→20:22)
[2019-06-26] MEDS: HEPARIN SODIUM,PORCINE 5,000 UNIT/ML 1 ML VIAL SQ SCH ×2 (07:58→20:22)
[2019-06-26] MEDS: INSULIN ASPART (NovoLOG) 100 UNIT/ML VIAL SQ SCH ×4 (07:58→20:22)
[2019-06-26] MEDS: guaiFENesin-Coden 100-10MG/5ML 10 ML CUP PO PRN ×2 (07:58→21:47)
[2019-06-26] MEDS: METOPROLOL TARTRATE 12.5 MG TAB PO SCH (07:59)
[2019-06-26] MEDS: MAGNESIUM OXIDE 400 MG TAB PO SCH ×2 (07:59→20:21)
[2019-06-26] MEDS: GABAPENTIN 300 MG CAP PO SCH ×2 (07:59→17:44)
[2019-06-26] MEDS: FAMOTIDINE 20 MG TAB PO SCH ×2 (07:59→20:22)
[2019-06-26] MEDS: ASPIRIN 81 MG PO SCH (07:59)
[2019-06-26] MEDS: methylPREDNISolone SOD SUCCI 40 MG/ML 1 ML VIAL IV SCH ×2 (08:00→20:22)
[2019-06-26 08:03] LABS: Potassium 4.6 mmol/L (3.5-5.1)
[2019-06-26 08:08] LABS: Basophils % (A) 0 %; Eosinophils % (A) 0 %; HCT 39.9 % (39.0-53.0); HGB 12.9 gm/dL (13.0-17.5); Lymphocytes # (A) 0.9 k/uL (1.0-4.8); Lymphocytes % (A) 8 %; MCH 31.4 pg (25.0-35.0); MCHC 32.3 g/dL (31.0-37.0); Mean Platelet Volume 8.8; Monocytes # (A) 0.4 k/uL (0-1.0); Monocytes % (A) 3 %; Neutrophils # (A) 9.4 k/uL (1.3-7.7); Neutrophils % (A) 86 %; Platelet Count 165 k/uL (150-450); RBC 4.11 m/uL (4.30-5.90); RDW 15.1 % (11.5-15.5)
[2019-06-26 11:16] LABS: Glucose,Whole Blood 183 mg/dL (75-99)
[2019-06-26] MEDS: SODIUM CHLORIDE 0.9% 1,000 ML IV SCH (12:07)
--- NOTE | 2019-06-26 13:56 | P.PN ---
Subjective Progress Note Date: 06/26/19 Principal diagnosis: Cough syncope This is a very pleasant 83-year-old gentleman who follows with Dr. Dozier as his primary care provider. He has a history of gout, esophageal cancer with previous radiation, hypertension, osteoarthritis, hyperlipidemia, chronic cough. He follows with Dr. Brown in our office. 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 He has history of esophageal cancer in the last CAT scan of the chest was done in January 2019 and he did have some scarring in the lung bases without evidence of any tumor progression or recurrence. His pulmonary function test was normal back in July 2018. He has been seen in the office on multiple occasions for this chronic cough. He has been maintained on steroids even on maintenance steroids without much improvement. He was most recently seen there at this week with worsening cough and near syncopal episodes. He was treated with Depo-Medrol, cough suppressants and steroids. Yesterday the patient was having episodes of cough syncope due to significant bronchospasm. He had an episode here in the emergency room as well. He was admitted for the same. Chest x-ray shows some mild cardiogenic pulmonary edema. White count 4.9. Hemoglobin 14.0. Creatinine 1.28. ProBNP 137. He been initiated on DuoNeb inhalations, Pulmicort and Perforomist inhalations, IV Solu-Medrol. On 06/25/2019 the patient is still bronchospastic and wheezy. His having coughing spells. No syncopal episodes. 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 Nevertheless, no acute abnormalities were noted. The lungs were well expanded. No airspace disease. No pneumonias. No evidence of any malignancy. He has no fever or chills. His white cell count is not elevated. He is on bronchodilators. His IV Solu Medrol 40 mg every 12 hours and his blood sugars are slightly elevated requiring Lantus and sliding scale coverage for blood sugar control. I was contemplating a bronchoscopy today. Discussed canceled due to his ongoing cough is quite considerably aggressive. The patient is seen today 06/26/2019 and follow-up on the regular medical floor. He is currently sitting up in bed. Awake and alert in no acute distress. He is still having ongoing issues with a dry nonproductive cough. He does have a sore throat. He is maintaining O2 saturations in the 90s on room air. He's been afebrile. Hemodynamically stable. He has not had any further cough syncope since arrival. White count 11.0. He will 1112.9. Creatinine 0.94. Influenza screen was negative. He remains on DuoNeb inhalations, Pulmicort performance inhalations, IV Solu-Medrol. Objective - Vital Signs Vital signs: Vital Signs Temp 97.4 F L 06/26/19 11:50 Pulse 80 06/26/19 11:58 Resp 22 06/26/19 11:50 BP 142/81 06/26/19 11:50 Pulse Ox 97 06/26/19 11:50 Intake & Output 06/25/19 06/26/19 06/26/19 18:59 06:59 18:59 Intake Total 650 900 Balance 650 900 Intake: Intake, IV Titration 650 900 Amount Sodium Chloride 0.9% 1, 650 900 000 ml @ 75 mls/hr IV . [id number] [facility] Rx#:[id number] Other: Voiding Method Toilet Toilet # Voids 1 1 - Exam GENERAL EXAM: Alert, obese, very pleasant 83-year-old gentleman, on room air, comfortable in no apparent distress. HEAD: Normocephalic. EYES: Normal reaction of pupils, equal size. NOSE: Clear with pink turbinates. THROAT: No erythema or exudates. NECK: No masses, no JVD. CHEST: No chest wall deformity. LUNGS: Equal air entry with faint crackles in the posterior bases. CVS: S1 and S2 normal with no audible murmur, regular rhythm. ABDOMEN: No hepatosplenomegaly, normal bowel sounds, no guarding or rigidity. SPINE: No scoliosis or deformity SKIN: No rashes CENTRAL NERVOUS SYSTEM: No focal deficits, tone is normal in all 4 extremities. EXTREMITIES: There is no peripheral edema. No clubbing, no cyanosis. Peripheral pulses are intact. - Labs CBC & Chem 7: 06/26/19 07:11 06/26/19 07:11 Labs: Abnormal Lab Results - Last 24 Hours (Table) 06/25/19 06/25/19 06/25/19 Range/Units 06:16 06:16 17:07 WBC (3.8-10.6) k/uL RBC (4.30-5.90) m/uL Hgb (13.0-17.5) gm/dL Neutrophils # (1.3-7.7) k/uL Lymphocytes # (1.0-4.8) k/uL BUN (9-20) mg/dL Glucose (74-99) mg/dL POC Glucose (mg/dL) 489 H (75-99) mg/dL Hemoglobin A1c 7.8 H (4.0-6.0) % Procalcitonin 0.11 H (0.02-0.09) ng/mL 06/25/19 06/26/19 06/26/19 Range/Units 19:45 06:55 07:11 WBC 11.0 H (3.8-10.6) k/uL RBC 4.11 L (4.30-5.90) m/uL Hgb 12.9 L (13.0-17.5) gm/dL Neutrophils # 9.4 H (1.3-7.7) k/uL Lymphocytes # 0.9 L (1.0-4.8) k/uL BUN (9-20) mg/dL Glucose (74-99) mg/dL POC Glucose (mg/dL) 442 H 152 H (75-99) mg/dL Hemoglobin A1c (4.0-6.0) % Procalcitonin (0.02-0.09) ng/mL 06/26/19 06/26/19 Range/Units 07:11 11:15 WBC (3.8-10.6) k/uL RBC (4.30-5.90) m/uL Hgb (13.0-17.5) gm/dL Neutrophils # (1.3-7.7) k/uL Lymphocytes # (1.0-4.8) k/uL BUN 27 H (9-20) mg/dL Glucose 112 H (74-99) mg/dL POC Glucose (mg/dL) 183 H (75-99) mg/dL Hemoglobin A1c (4.0-6.0) % Procalcitonin (0.02-0.09) ng/mL Assessment and Plan Assessment: 1 Acute on chronic cough with episodes of cough syncope possibly vasovagal in nature. 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 Brown. The patient has had ongo ing issues with coughing cough syncope. Pro calcitonin 0.11. Influenza screen negative. The patient has had radiation treatment to the esophagus. Continue IV Solu-Medrol, continue bronchodilators. If no improvement we'll plan for bronchoscopy with BAL. Possibly viral in nature. We'll continue to follow and make further recommendations based on his clinical status. I, the cosigning physician, performed a history & physical examination of the patient. Lungs sounds with coarse crackles in the posterior bases. Maintaining good O2 saturations in the 90s on room air. I discussed the assessment and plan of care with my nurse practitioner, Heather Lara. I attest to the above consultation as dictated by her.
--- NOTE | 2019-06-26 14:49 | P.PN ---
Subjective Progress Note Date: 06/25/19 Principal diagnosis: Acute cough spells with vasovagal syncope Mr. Bradford is an 83-year-old male with a past medical history of GERD, esophageal cancer, hypertension, hyperlipidemia, chronic cough coming in with a chief complaint of cough spells. Patient has been coughing so much that he is having syncope. Currently being treated with IV steroids and breathing treatments. On 06/25/2019-patient is lying in bed appears to be in acute distress. He states he has had few coughing spells again today. 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 Patient denies having any fevers chills or rigors. No abdominal pain nausea vomiting or diarrhea. No dysuria or hematuria. Patient's medications and labs have been reviewed. Objective - Vital Signs Vital signs: Vital Signs Temp 98 F 06/25/19 11:57 Pulse 78 06/25/19 16:13 Resp 20 06/25/19 11:57 BP 135/74 06/25/19 11:57 Pulse Ox 96 06/25/19 11:57 Intake & Output 06/24/19 06/25/19 06/25/19 18:59 06:59 18:59 Intake Total 160 650 Balance 160 650 Intake: Intake, IV Titration 160 650 Amount Sodium Chloride 0.9% 1, 160 650 000 ml @ 75 mls/hr IV . [id number] [facility] Rx#:[id number] Other: # Voids 1 1 - Exam GENERAL: The patient is alert and oriented x3, not in any acute distress. Obese HEENT: No pallor. No icterus. CARDIOVASCULAR: S1 and S2 present. No murmurs, rubs, or gallops. PULMONARY: Decreased air entry bilateral lung nogueira diffuse tach diffuse wheezing bilaterally ABDOMEN: Soft, nontender, nondistended, normoactive bowel sounds. No palpable organomegaly. MUSCULOSKELETAL: No joint swelling or deformity. EXTREMITIES: No cyanosis, clubbing, or pedal edema. NEUROLOGICAL: Gross neurological examination did not reveal any focal deficits. SKIN: No rashes. - Labs CBC & Chem 7: 06/26/19 07:11 06/26/19 07:11 Labs: Abnormal Lab Results - Last 24 Hours (Table) 06/24/19 06/24/19 06/25/19 Range/Units 16:49 19:01 06:16 WBC (3.8-10.6) k/uL BUN (9-20) mg/dL Glucose (74-99) mg/dL POC Glucose (mg/dL) 490 H 505 H (75-99) mg/dL Hemoglobin A1c 7.8 H (4.0-6.0) % 06/25/19 06/25/19 06/25/19 Range/Units 06:16 06:16 06:57 WBC 10.8 H (3.8-10.6) k/uL BUN 33 H (9-20) mg/dL Glucose 355 H (74-99) mg/dL POC Glucose (mg/dL) 374 H (75-99) mg/dL Hemoglobin A1c (4.0-6.0) % 06/25/19 Range/Units 11:27 WBC (3.8-10.6) k/uL BUN (9-20) mg/dL Glucose (74-99) mg/dL POC Glucose (mg/dL) 525 H (75-99) mg/dL Hemoglobin A1c (4.0-6.0) % Assessment and Plan Assessment: ASSESSMENT Coughing spells with vasovagal syncope Acute kidney injury Esophageal cancer in remission Type 2 diabetes mellitus Hypertension Hyperlipidemia PLAN: Patient is on IV Solu-Medrol and breathing treatments. Patient had a CT of the chest with no new changes. To continue with the current medication regimen. Pulmonary on board and possibly planning for a bronchoscopy. Further recommendations will depending on the progress of the patient.
--- NOTE | 2019-06-26 15:49 | P.PN ---
Subjective Progress Note Date: 06/26/19 Principal diagnosis: Acute cough spells with vasovagal syncope Mr. Bradford is an 83-year-old male with a past medical history of GERD, esophageal cancer, hypertension, hyperlipidemia, chronic cough coming in with a chief complaint of cough spells. Patient has been coughing so much that he is having syncope. Currently being treated with IV steroids and breathing treatments. On 07/04/2019- patient is comfortably lying in bed appears to be no acute distress. Patient's family members at the bedside. Patient states that he is still having coughing spells. He complains of hoarseness of his voice and also has nasal congestion. Denies having any chest pain or palpitations. No abdominal pain nausea vomiting or diarrhea. No dysuria or hematuria. Patient's medications and labs have been reviewed. Active Medications Albuterol/Ipratropium (Duoneb 0.5 Mg-3 Mg/3 Ml Soln) 3 ml INHALATION RT-QID PRN PRN Reason: Shortness Of Breath Last Admin: 06/24/19 23:03 Dose: 3 ml Documented by: Albuterol/Ipratropium (Duoneb 0.5 Mg-3 Mg/3 Ml Soln) 3 ml INHALATION RT-QID [facility] Last Admin: 06/26/19 11:47 Dose: 3 ml Documented by: Aspirin (Aspirin) 81 mg PO DAILY [facility] Last Admin: 06/26/19 07:59 Dose: 81 mg Documented by: Budesonide (Pulmicort) 1 mg INHALATION RT-DAILY [facility] Last Admin: 06/26/19 07:58 Dose: Not Given Documented by: Famotidine (Pepcid) 20 mg PO BID [facility] Last Admin: 06/26/19 07:59 Dose: 20 mg Documented by: Gabapentin (Neurontin) 1,200 mg PO HS [facility] Last Admin: 06/25/19 21:04 Dose: 1,200 mg Documented by: Gabapentin (Neurontin) 300 mg PO BID@0800,1800 [facility] Last Admin: 06/26/19 07:59 Dose: 300 mg Documented by: Guaifenesin/Codeine Phosphate (Robitussin Ac) 10 ml PO Q6H PRN PRN Reason: Cough Last Admin: 06/26/19 07:58 Dose: 10 ml Documented by: Heparin Sodium (Porcine) (Heparin) 5,000 unit SQ Q12HR [facility] Last Admin: 06/26/19 07:58 Dose: 5,000 unit Documented by: Sodium Chloride (Saline 0.9%) 1,000 mls @ 20 mls/hr IV .Q24H [facility] Last Admin: 06/26/19 12:07 Dose: Not Given Documented by: Insulin Aspart (Novolog) 0 unit SQ ACHS [facility]; Protocol Last Admin: 06/26/19 12:06 Dose: 2 unit Documented by: Insulin Detemir (Levemir) 40 unit SQ QAM@0700 [facility] Last Admin: 06/26/19 07:58 Dose: 40 unit Documented by: Insulin Detemir (Levemir) 30 unit SQ HS [facility] Last Admin: 06/25/19 21:04 Dose: 30 unit Documented by: Magnesium Oxide (Mag-Ox) 400 mg PO BID [facility] Last Admin: 06/26/19 07:59 Dose: 400 mg Documented by: Methylprednisolone Sodium Succinate (Solu-Medrol) 40 mg IV Q12HR [facility] Last Admin: 06/26/19 08:00 Dose: 40 mg Documented by: Metoprolol Tartrate (Lopressor) 12.5 mg PO DAILY [facility] Last Admin: 06/26/19 07:59 Dose: 12.5 mg Documented by: Naloxone HCl (Narcan) 0.2 mg IV Q2M PRN PRN Reason: Opioid Reversal Nitroglycerin (Nitrostat) 0.4 mg SUBLINGUAL Q5M PRN PRN Reason: Chest Pain Pravastatin Sodium (Pravachol) 80 mg PO HS [facility] Last Admin: 06/25/19 22:10 Dose: 80 mg Documented by: Zolpidem Tartrate (Ambien) 10 mg PO HS PRN PRN Reason: Insomnia Last Admin: 06/25/19 21:05 Dose: 10 mg Documented by: Objective - Vital Signs Vital signs: Vital Signs Temp 97.4 F L 06/26/19 11:50 Pulse 80 06/26/19 11:58 Resp 22 06/26/19 11:50 BP 142/81 06/26/19 11:50 Pulse Ox 97 06/26/19 11:50 Intake & Output 06/25/19 06/26/19 06/26/19 18:59 06:59 18:59 Intake Total 650 900 Balance 650 900 Intake: Intake, IV Titration 650 900 Amount Sodium Chloride 0.9% 1, 650 900 000 ml @ 75 mls/hr IV . [id number] [facility] Rx#:[id number] Other: Voiding Method Toilet Toilet # Voids 1 1 - Exam GENERAL: The patient is alert and oriented x3, not in any acute distress. Obese HEENT: No pallor. No icterus. Mild nasal congestion CARDIOVASCULAR: S1 and S2 present. No murmurs, rubs, or gallops. PULMONARY: Decreased air entry bilateral lung nogueira diffuse and diffuse wheezing bilaterally- better compared to yesterday ABDOMEN: Soft, nontender, nondistended, normoactive bowel sounds. No palpable organomegaly. MUSCULOSKELETAL: No joint swelling or deformity. EXTREMITIES: No cyanosis, clubbing, or pedal edema. NEUROLOGICAL: Gross neurological examination did not reveal any focal deficits. SKIN: No rashes. - Labs CBC & Chem 7: 06/26/19 07:11 06/26/19 07:11 Labs: Abnormal Lab Results - Last 24 Hours (Table) 06/25/19 06/25/19 06/25/19 Range/Units 06:16 17:07 19:45 WBC (3.8-10.6) k/uL RBC (4.30-5.90) m/uL Hgb (13.0-17.5) gm/dL Neutrophils # (1.3-7.7) k/uL Lymphocytes # (1.0-4.8) k/uL BUN (9-20) mg/dL Glucose (74-99) mg/dL POC Glucose (mg/dL) 489 H 442 H (75-99) mg/dL Procalcitonin 0.11 H (0.02-0.09) ng/mL 06/26/19 06/26/19 06/26/19 Range/Units 06:55 07:11 07:11 WBC 11.0 H (3.8-10.6) k/uL RBC 4.11 L (4.30-5.90) m/uL Hgb 12.9 L (13.0-17.5) gm/dL Neutrophils # 9.4 H (1.3-7.7) k/uL Lymphocytes # 0.9 L (1.0-4.8) k/uL BUN 27 H (9-20) mg/dL Glucose 112 H (74-99) mg/dL POC Glucose (mg/dL) 152 H (75-99) mg/dL Procalcitonin (0.02-0.09) ng/mL 06/26/19 Range/Units 11:15 WBC (3.8-10.6) k/uL RBC (4.30-5.90) m/uL Hgb (13.0-17.5) gm/dL Neutrophils # (1.3-7.7) k/uL Lymphocytes # (1.0-4.8) k/uL BUN (9-20) mg/dL Glucose (74-99) mg/dL POC Glucose (mg/dL) 183 H (75-99) mg/dL Procalcitonin (0.02-0.09) ng/mL Assessment and Plan Assessment: ASSESSMENT Coughing spells with vasovagal syncope Acute kidney injury Esophageal cancer in remission Type 2 diabetes mellitus Hypertension Hyperlipidemia PLAN: Patient is on IV Solu-Medrol and breathing treatments. Patient had a CT of the chest with no new changes. To continue with the current medication regimen. Flonase for nasal congestion. Mucinex to help him with cough. Pulmonary on board and possibly planning for a bronchoscopy. Further recommendations will depending on the progress of the patient.
[2019-06-26 16:59] LABS: Glucose,Whole Blood 252 mg/dL (75-99)
[2019-06-26 20:04] LABS: Glucose,Whole Blood 351 mg/dL (75-99)
[2019-06-26] MEDS: PRAVASTATIN SODIUM 80 MG TAB PO SCH (20:21)
[2019-06-26] MEDS: guaiFENesin 600 MG TABLET.ER PO SCH (20:22)
[2019-06-26] MEDS: GABAPENTIN 400 MG CAP PO SCH (20:22)
[2019-06-26] MEDS: ZOLPIDEM 5 MG TAB PO PRN (21:47)
[2019-06-27] MEDS: BUDESONIDE 1 MG/2 ML NEBU INHALATION SCH (06:58)
[2019-06-27] MEDS: IPRATROPIUM-ALBUTEROL 3 ML NEB INHALATION SCH ×4 (06:58→20:51)
[2019-06-27 07:01] LABS: Glucose,Whole Blood 102 mg/dL (75-99)
[2019-06-27] MEDS: INSULIN ASPART (NovoLOG) 100 UNIT/ML VIAL SQ SCH ×4 (07:56→20:37)
[2019-06-27] MEDS: GABAPENTIN 300 MG CAP PO SCH ×2 (08:55→18:22)
[2019-06-27] MEDS: METOPROLOL TARTRATE 12.5 MG TAB PO SCH (08:55)
[2019-06-27] MEDS: guaiFENesin 600 MG TABLET.ER PO SCH ×2 (08:55→20:36)
[2019-06-27] MEDS: MAGNESIUM OXIDE 400 MG TAB PO SCH ×2 (08:55→20:39)
[2019-06-27] MEDS: FAMOTIDINE 20 MG TAB PO SCH ×2 (08:55→20:36)
[2019-06-27] MEDS: ASPIRIN 81 MG PO SCH (08:55)
[2019-06-27] MEDS: HEPARIN SODIUM,PORCINE 5,000 UNIT/ML 1 ML VIAL SQ SCH ×2 (08:55→20:36)
[2019-06-27] MEDS: INSULIN DETEMIR (LEVEMIR) 100 UNIT/ML SYR SQ SCH ×2 (08:56→20:37)
[2019-06-27] MEDS: methylPREDNISolone SOD SUCCI 40 MG/ML 1 ML VIAL IV SCH ×2 (08:56→18:17)
[2019-06-27] MEDS: FLUTICASONE 50MCG/SPRAY NASAL 16GM EA NOSTRIL SCH (09:07)
[2019-06-27] MEDS: guaiFENesin-Coden 100-10MG/5ML 10 ML CUP PO PRN ×2 (09:07→22:21)
--- NOTE | 2019-06-27 10:31 | P.PN ---
Subjective Progress Note Date: 06/27/19 Principal diagnosis: Cough syncope This is a very pleasant 83-year-old gentleman who follows with Dr. Dozier as his primary care provider. He has a history of gout, esophageal cancer with previous radiation, hypertension, osteoarthritis, hyperlipidemia, chronic cough. He follows with Dr. Brown in our office. 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 He has history of esophageal cancer in the last CAT scan of the chest was done in January 2019 and he did have some scarring in the lung bases without evidence of any tumor progression or recurrence. His pulmonary function test was normal back in July 2018. He has been seen in the office on multiple occasions for this chronic cough. He has been maintained on steroids even on maintenance steroids without much improvement. He was most recently seen there at this week with worsening cough and near syncopal episodes. He was treated with Depo-Medrol, cough suppressants and steroids. Yesterday the patient was having episodes of cough syncope due to significant bronchospasm. He had an episode here in the emergency room as well. He was admitted for the same. Chest x-ray shows some mild cardiogenic pulmonary edema. White count 4.9. Hemoglobin 14.0. Creatinine 1.28. ProBNP 137. He been initiated on DuoNeb inhalations, Pulmicort and Perforomist inhalations, IV Solu-Medrol. On 06/25/2019 the patient is still bronchospastic and wheezy. His having coughing spells. No syncopal episodes. 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 Nevertheless, no acute abnormalities were noted. The lungs were well expanded. No airspace disease. No pneumonias. No evidence of any malignancy. He has no fever or chills. His white cell count is not elevated. He is on bronchodilators. His IV Solu Medrol 40 mg every 12 hours and his blood sugars are slightly elevated requiring Lantus and sliding scale coverage for blood sugar control. I was contemplating a bronchoscopy today. Discussed canceled due to his ongoing cough is quite considerably aggressive. The patient is seen today 06/26/2019 and follow-up on the regular medical floor. He is currently sitting up in bed. Awake and alert in no acute distress. He is still having ongoing issues with a dry nonproductive cough. He does have a sore throat. He is maintaining O2 saturations in the 90s on room air. He's been afebrile. Hemodynamically stable. He has not had any further cough syncope since arrival. White count 11.0. He will 1112.9. Creatinine 0.94. Influenza screen was negative. He remains on DuoNeb inhalations, Pulmicort performance inhalations, IV Solu-Medrol. The patient is seen today 06/27/2019 in follow-up on the regular medical floor. He is awake and alert in no acute distress. He is still having ongoing issues with cough and bronchospasm. No further cough syncope. He is maintaining O2 sa turations in the 90s on room air. He is afebrile. Hemodynamically stable. Blood culture reveals no growth. Blood glucose 102. He remains on DuoNeb inhalations, Pulmicort inhalations, IV Solu-Medrol. Plan is for bronchoscopy with BAL today. Objective - Vital Signs Vital signs: Vital Signs Temp 97.3 F L 06/27/19 03:58 Pulse 84 06/27/19 07:11 Resp 24 06/27/19 03:58 BP 161/82 06/27/19 03:58 Pulse Ox 99 06/27/19 06:58 Intake & Output 06/26/19 06/27/19 06/27/19 18:59 06:59 18:59 Other: Voiding Method Toilet Toilet # Voids 2 1 - Exam GENERAL EXAM: Alert, obese, very pleasant 83-year-old gentleman, on room air, comfortable in no apparent distress. HEAD: Normocephalic. EYES: Normal reaction of pupils, equal size. NOSE: Clear with pink turbinates. THROAT: No erythema or exudates. NECK: No masses, no JVD. CHEST: No chest wall deformity. LUNGS: Equal air entry with faint crackles in the posterior bases. CVS: S1 and S2 normal with no audible murmur, regular rhythm. ABDOMEN: No hepatosplenomegaly, normal bowel sounds, no guarding or rigidity. SPINE: No scoliosis or deformity SKIN: No rashes CENTRAL NERVOUS SYSTEM: No focal deficits, tone is normal in all 4 extremities. EXTREMITIES: There is no peripheral edema. No clubbing, no cyanosis. Pe ripheral pulses are intact. - Labs CBC & Chem 7: 06/26/19 07:11 06/26/19 07:11 Labs: Abnormal Lab Results - Last 24 Hours (Table) 06/26/19 06/26/19 06/26/19 Range/Units 11:15 16:57 20:03 POC Glucose (mg/dL) 183 H 252 H 351 H (75-99) mg/dL 06/27/19 Range/Units 06:54 POC Glucose (mg/dL) 102 H (75-99) mg/dL Assessment and Plan Assessment: 1 Acute on chronic cough with episodes of cough syncope possibly vasovagal in nature. 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 Holt. The patient has had ongoing issues with chronic coughing but no further cough syncope. The patient has had radiation treatment to the esophagus. Continue IV Solu-Medrol, continue bronchodilators. Plan is for bronchoscopy with BAL today. Possibly viral in nature. We'll continue to follow and make further recommendations based on his clinical status. I, the cosigning physician, performed a history & physical examination of the patient. Lungs sounds with coarse crackles in the posterior bases. Maintaining good O2 saturations in the 90s on room air. I discussed the assessment and plan of care with my nurse practitioner, Heather Lara. I attest to the above consultation as dictated by her.
[2019-06-27 11:33] LABS: Glucose,Whole Blood 99 mg/dL (75-99)
[2019-06-27] MEDS ORDERED: LACTATED RINGERS 1,000 ML IV ONE (14:00)
[2019-06-27] MEDS ORDERED: KETAMINE 10 MG/ML 20 ML VIAL ONE (14:21)
[2019-06-27] MEDS ORDERED: PROPOFOL 10 MG/ML 20 ML VIAL IV ONE (14:21)
[2019-06-27] MEDS ORDERED: LIDOCAINE 2% INJ 20 MG/ML INTRATRACH ONE (14:32)
--- NOTE | 2019-06-27 14:58 | P.PN ---
Subjective Progress Note Date: 06/27/19 Principal diagnosis: A very pleasant 83-year-old male came in with compensative shortness of breath having coughing episodes coughing spells leading to cyanosis central cyanosis and vasovagal syncope events. Patient the is unable to stop coughing and is having multiple syncopes. Patient had radiation therapy to the chest to for his esophageal cancer which is in remission at this time at this point of time since then patient is having this problems for bronchospasm. Patient has crackles on exam as well patient may have interstitial lung disease or fibrosis related to radiation therapy. Patient clinically his volume depleted because of which I'll start him IV fluids stop of stop the diuretics at this time patient had normal ejection fraction in the past, patient does not appear to have even diastolic dysfunction the echocardiogram patient appears to have some mild aortic stenosis. Patient appears to have normal creatinine in recent time now had his creatinine is 1.28 patient denied any fever chills is no pneumonic infiltrate on the chest x-ray patient never smoked. Patient's BNP and appears to be around 100. Acute cough spells with vasovagal syncope Mr. Bradford is an 83-year-old male with a past medical history of GERD, esophageal cancer, hypertension, hyperlipidemia, chronic cough coming in with a chief complaint of cough spells. Patient has been coughing so much that he is having syncope. Currently being treated with IV steroids and breathing treatments. On 06/25/2019-patient is lying in bed appears to be in acute distress. He states he has had few coughing spells again today. 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 Patient denies having any fevers chills or rigors. No abdominal pain nausea vomiting or diarrhea. No dysuria or hematuria. On 06/26/2019- patient is comfortably lying in bed appears to be no acute distress. Patient's family members at the bedside. Patient states that he is still having coughing spells. He complains of hoarseness of his voice and also has nasal congestion. Denies having any chest pain or palpitations. No abdominal pain nausea vomiting or diarrhea. No dysuria or hematuria. 06/27/2019 Patient is sitting up in bed with at the bedside in no acute distress. Patient continues to have coughing spells but denies any syncopal episodes. Patient is scheduled to undergo bronchoscopy this afternoon with pulmonary. Currently patient denies any chest pain or palpitations. Patient is afebrile. Patient denies any nausea or vomiting and has been tolerating diet. Objective - Vital Signs Vital signs: Vital Signs Temp 97.3 F L 06/27/19 03:58 Pulse 84 06/27/19 07:11 Resp 24 06/27/19 03:58 BP 161/82 06/27/19 03:58 Pulse Ox 99 06/27/19 06:58 Intake & Output 06/26/19 06/27/19 06/27/19 18:59 06:59 18:59 Other: Voiding Method Toilet Toilet Toilet # Voids 2 1 - Exam GENERAL: The patient is alert and oriented x3, not in any acute distress. Obese HEENT: No pallor. No icterus. Mild nasal congestion CARDIOVASCULAR: S1 and S2 present. No murmurs, rubs, or gallops. PULMONARY: Decreased air entry bilateral lung nogueira diffuse and diffuse wheezing bilaterally-frequent coughing spells during examination ABDOMEN: Soft, obese, nontender, nondistended, normoactive bowel sounds. No palpable organomegaly. MUSCULOSKELETAL: No joint swelling or deformity. EXTREMITIES: No cyanosis, clubbing, or pedal edema. NEUROLOGICAL: Gross neurological examination did not reveal any focal deficits. SKIN: No rashes. - Labs CBC & Chem 7: 06/26/19 07:11 06/26/19 07:11 Labs: Abnormal Lab Results - Last 24 Hours (Table) 06/26/19 06/26/19 06/26/19 Range/Units 11:15 16:57 20:03 POC Glucose (mg/dL) 183 H 252 H 351 H (75-99) mg/dL 06/27/19 Range/Units 06:54 POC Glucose (mg/dL) 102 H (75-99) mg/dL Assessment and Plan Assessment: Coughing spells with vasovagal syncope Acute kidney injury Esophageal cancer in remission Type 2 diabetes mellitus Hypertension Hyperlipidemia PLAN: Patient is on IV Solu-Medrol and breathing treatments. To continue with the current medication regimen. Flonase for nasal congestion. Mucinex to help him with cough. Pulmonary is following and planning for a bronchoscopy this afternoon. Further recommendations to follow depending on the progress of the patient.
--- NOTE | 2019-06-27 15:37 | PCN ---
PROCEDURE NOTE BRONCHOSCOPY AND BRONCHOALVEOLAR LAVAGE OF THE LEFT THE LINGULA AND LEFT LOWER LOBE WELL RANDOM BRONCHIAL WASHINGS: PREOPERATIVE DIAGNOSIS: Chronic bronchitis, chronic cough, and difficulty clearing secretions. POSTOPERATIVE DIAGNOSIS: Chronic bronchitis, chronic cough, and difficulty clearing secretions. ANESTHESIA USED: IV conscious sedation. PROCEDURE DESCRIPTION: patient was prepared according to the bronchoscopy protocol. O2 was applied via nasal cannula. The patient was placed in a supine position, we monitored his O2 saturation continuously. Blood pressure was intermittently monitored AND cardiac rhythm was continuously monitored. After adequate IV conscious sedation, lidocaine was instilled into the right naris, and the bronchoscope was advanced through the right naris down to the area of the vocal cords. Significant purulent secretions were noted around the vocal cords area and these were suctioned. Then, lidocaine was applied over the vocal cords, and the vocal cords were noted to be patent. The bronchoscope was advanced further down. Thorough examination was done of the trachea, jazmine, right upper lobe, right middle lobe, right lower lobe, left upper lobe lingula and left lower lobe. Significant purulent secretions were noted throughout the airways, but mostly in the lingula and in the left lower lobe. Lavage of the secretions was done in the lingula and the left lower lobe and random washing was done from all the airways. All liza secretions were suctioned easily, and they were sent for different diagnostic studies. Procedure was well tolerated, the mucosa was noted to be friable mucosa, and the patient had significant friability of the bronchial mucosa noted. This could very well be related to previous radiation treatment. Again, bronchoscopy was tolerated, lavage of the lingula and left lower lobe was done, washings were done. No evidence of any immediate complications. The fluid obtained was sent for different diagnostic studies. In the meantime, I have recommended increasing his Solu-Medrol dose and started the patient on antibiotics in the form of Levaquin until the final report of the cultures becomes available. MMODL / IJN: [id number] /
[2019-06-27] MEDS ORDERED: LEVOFLOXACIN 750MG-D5W PMX 750 MG in DEXTROSE/WATER 1 150ML.BAG IVPB SCH (16:00)
[2019-06-27 17:03] LABS: Appearance,BF Cloudy; Color,BF Red; Nucleated Cells, Body Fluid 800 /uL; RBC, Body Fluid 19600 /uL
[2019-06-27 17:17] LABS: Glucose,Whole Blood 162 mg/dL (75-99)
[2019-06-27 17:39] LABS: Mononuclear WBC,Body Fluid 4 %; Polynuclear WBC,Body Fluid 96 %; Total Cells Counted,Body Fluid 100
[2019-06-27 20:00] LABS: Glucose,Whole Blood 316 mg/dL (75-99)
[2019-06-27] MEDS: GABAPENTIN 400 MG CAP PO SCH (20:36)
[2019-06-27] MEDS: PRAVASTATIN SODIUM 80 MG TAB PO SCH (20:37)
[2019-06-27 20:49] VITALS: RESP 18
[2019-06-27] MEDS: ZOLPIDEM 5 MG TAB PO PRN (22:21)
[2019-06-27] MEDS: SODIUM CHLORIDE 0.9% 1,000 ML IV SCH (22:45)
[2019-06-28] MEDS: methylPREDNISolone SOD SUCCI 40 MG/ML 1 ML VIAL IV SCH ×2 (00:03→05:56)
[2019-06-28 06:58] LABS: Glucose,Whole Blood 220 mg/dL (75-99)
[2019-06-28] MEDS: IPRATROPIUM-ALBUTEROL 3 ML NEB INHALATION SCH ×3 (07:01→10:56)
[2019-06-28] MEDS: BUDESONIDE 1 MG/2 ML NEBU INHALATION SCH (07:01)
[2019-06-28] MEDS: GABAPENTIN 300 MG CAP PO SCH (08:11)
[2019-06-28] MEDS: HEPARIN SODIUM,PORCINE 5,000 UNIT/ML 1 ML VIAL SQ SCH (08:11)
[2019-06-28] MEDS: ASPIRIN 81 MG PO SCH (08:12)
[2019-06-28] MEDS: MAGNESIUM OXIDE 400 MG TAB PO SCH (08:12)
[2019-06-28] MEDS: INSULIN DETEMIR (LEVEMIR) 100 UNIT/ML SYR SQ SCH (08:12)
[2019-06-28] MEDS: INSULIN ASPART (NovoLOG) 100 UNIT/ML VIAL SQ SCH ×2 (08:12→13:29)
[2019-06-28] MEDS: METOPROLOL TARTRATE 12.5 MG TAB PO SCH (08:12)
[2019-06-28] MEDS: guaiFENesin 600 MG TABLET.ER PO SCH (08:12)
[2019-06-28] MEDS: FLUTICASONE 50MCG/SPRAY NASAL 16GM EA NOSTRIL SCH (08:12)
[2019-06-28] MEDS: FAMOTIDINE 20 MG TAB PO SCH (08:12)
--- NOTE | 2019-06-28 11:23 | P.PN ---
Subjective Progress Note Date: 06/28/19 Principal diagnosis: Cough syncope This is a very pleasant 83-year-old gentleman who follows with Dr. Dozier as his primary care provider. He has a history of gout, esophageal cancer with previous radiation, hypertension, osteoarthritis, hyperlipidemia, chronic cough. He follows with Dr. Brown in our office. 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 He has history of esophageal cancer in the last CAT scan of the chest was done in January 2019 and he did have some scarring in the lung bases without evidence of any tumor progression or recurrence. His pulmonary function test was normal back in July 2018. He has been seen in the office on multiple occasions for this chronic cough. He has been maintained on steroids even on maintenance steroids without much improvement. He was most recently seen there at this week with worsening cough and near syncopal episodes. He was treated with Depo-Medrol, cough suppressants and steroids. Yesterday the patient was having episodes of cough syncope due to significant bronchospasm. He had an episode here in the emergency room as well. He was admitted for the same. Chest x-ray shows some mild cardiogenic pulmonary edema. White count 4.9. Hemoglobin 14.0. Creatinine 1.28. ProBNP 137. He been initiated on DuoNeb inhalations, Pulmicort and Perforomist inhalations, IV Solu-Medrol. On 06/25/2019 the patient is still bronchospastic and wheezy. His having coughing spells. No syncopal episodes. 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 Nevertheless, no acute abnormalities were noted. The lungs were well expanded. No airspace disease. No pneumonias. No evidence of any malignancy. He has no fever or chills. His white cell count is not elevated. He is on bronchodilators. His IV Solu Medrol 40 mg every 12 hours and his blood sugars are slightly elevated requiring Lantus and sliding scale coverage for blood sugar control. I was contemplating a bronchoscopy today. Discussed canceled due to his ongoing cough is quite considerably aggressive. The patient is seen today 06/26/2019 and follow-up on the regular medical floor. He is currently sitting up in bed. Awake and alert in no acute distress. He is still having ongoing issues with a dry nonproductive cough. He does have a sore throat. He is maintaining O2 saturations in the 90s on room air. He's been afebrile. Hemodynamically stable. He has not had any further cough syncope since arrival. White count 11.0. He will 1112.9. Creatinine 0.94. Influenza screen was negative. He remains on DuoNeb inhalations, Pulmicort performance inhalations, IV Solu-Medrol. The patient is seen today 06/27/2019 in follow-up on the regular medical floor. He is awake and alert in no acute distress. He is still having ongoing issues with cough and bronchospasm. No further cough syncope. He is maintaining O2 sa turations in the 90s on room air. He is afebrile. Hemodynamically stable. Blood culture reveals no growth. Blood glucose 102. He remains on DuoNeb inhalations, Pulmicort inhalations, IV Solu-Medrol. Plan is for bronchoscopy with BAL today. The patient is seen today 06/28/2019 in follow-up on the regular medical floor. He is currently resting quite comfortably in bed. Awake and alert in no acute distress. He is breathing easier today as compared to yesterday. He did undergo bronchoscopy with BAL. He did have a lot of thick purulent secretions. He was initiated on Levaquin. Cultures are pending. He's been ambulating in the hallway and maintaining O2 saturations 91%. No worsening shortness of breath, cough or congestion. No cough syncope. Hoping to go home he's been continued on bronchodilators, IV Solu-Medrol, Mucinex, Robitussin. Objective - Vital Signs Vital signs: Vital Signs Temp 97.4 F L 06/28/19 05:00 Pulse 76 06/28/19 11:05 Resp 18 06/28/19 05:00 BP 153/79 06/28/19 05:00 Pulse Ox 96 06/28/19 05:00 Intake & Output 06/27/19 06/28/19 06/28/19 18:59 06:59 18:59 Intake Total 300 840 Balance 300 840 Intake: IV 300 Oral 840 Other: Voiding Method Toilet Toilet Toilet # Voids 2 1 - Exam GENERAL EXAM: Alert, obese, very pleasant 83-year-old gentleman, on room air, comfortable in no apparent distress. HEAD: Normocephalic. EYES: Normal reaction of pupils, equal size. NOSE: Clear with pink turbinates. THROAT: No erythema or exudates. NECK: No masses, no JVD. CHEST: No chest wall deformity. LUNGS: Equal air entry with faint crackles in the posterior bases. CVS: S1 and S2 normal with no audible murmur, regular rhythm. ABDOMEN: No hepatosplenomegaly, normal bowel sounds, no guarding or rigidity. SPINE: No scoliosis or deformity SKIN: No rashes CENTRAL NERVOUS SYSTEM: No focal deficits, tone is normal in all 4 extremities. EXTREMITIES: There is no peripheral edema. No clubbing, no cyanosis. Peripheral pulses are intact. - Labs CBC & Chem 7: 06/26/19 07:11 06/26/19 07:11 Labs: Abnormal Lab Results - Last 24 Hours (Table) 06/27/19 06/27/19 06/28/19 Range/Units 17:01 19:59 06:56 POC Glucose (mg/dL) 162 H 316 H 220 H (75-99) mg/dL Microbiology - Last 24 Hours (Table) 06/27/19 14:30 Gram Stain - Preliminary Bronchial Washings - Random Bronchial Washings Culture - Preliminary 06/27/19 14:30 Acid Fast Bacilli Smear - Final Bronchial Washings - Random Acid Fast Bacilli Culture - Preliminary 06/27/19 14:30 Fungal Culture - Preliminary Bronchial Washings - Random Assessment and Plan Assessment: 1 Acute on chronic cough with episodes of cough syncope possibly vasovagal in nature. Status post bronchoscopy with BAL on 06/27/2019 with significant thick purulent secretions. Cultures pending. On Levaquin. 2 History of esophageal cancer status post resection and subsequent radiofrequency ablation at [facility] in November 2012 with recurrence and chemoradiation in 2018 completed 09/02/2017 3 History of acute lung injury/ARDS in January 2018 4 Obesity 5 Hypertension 6 Hyperlipidemia 7 Gout 8 Lifelong nonsmoker with normal pulmonary function testing 9 History of kidney disease 10 History of left carotid occlusion 11 Degenerative just disease with recent epidural injections thereafter plan: Plan: The patient was seen and evaluated by Dr. Holt. The patient is cleared for discharge from the pulmonary standpoint. He should complete a course of Levaquin. Complete a prednisone taper starting at 40 mg for 4 days. Continue his home pulmonary medications. Did not qualify for home oxygen. Follow up with Dr. Brown in our office next week. He and his are both encouraged to call sooner with any recurrence of symptoms or other questions or concerns. I, the cosigning physician, performed a history & physical examination of the patient. Lungs sounds with coarse crackles in the posterior bases. Maintaining good O2 saturations in the 90s on room air. I discussed the assessment and plan of care with my nurse practitioner, Heather Lara. I attest to the above consultation as dictated by her.
[2019-06-28 11:26] LABS: Glucose,Whole Blood 253 mg/dL (75-99)
[2019-06-28 12:14] VITALS: BP 144/74; PULSE 68; TEMP 97.5
--- NOTE | 2019-06-28 16:52 | P.DS ---
Providers Date of admission: 06/25/19 09:05 Expected date of discharge: 06/28/19 Attending physician: Bear Sampson Consults: 06/23/19 22:17 Consult Physician Routine Consulting Provider: Wilder Brown Consult Reason/Comments: coughing w post tussive syncope Do you want consulting provider notified?: Yes Primary care physician: [facility] Course: Final diagnosis Coughing spells with vasovagal syncope Acute kidney injury Esophageal cancer in remission Type 2 diabetes mellitus Hypertension Hyperlipidemia Discharge disposition Patient is being discharged in a stable condition with guarded prognosis to home and will follow-up with primary care provider upon discharge. Patient also follow-up with pulmonary in the outpatient setting in 1 week for test results. Patient will continue on a short course of oral Levaquin along with a prednisone taper upon discharge. Total time taken is 35 minutes. History of present illness A very pleasant 83-year-old male came in with compensative shortness of breath having coughing episodes coughing spells leading to cyanosis central cyanosis and vasovagal syncope events. Patient the is unable to stop coughing and is having multiple syncopes. Patient had radiation therapy to the chest to for his esophageal cancer which is in remission at this time at this point of time since then patient is having this problems for bronchospasm. Patient has crackles on exam as well patient may have interstitial lung disease or fibrosis related to radiation therapy. Patient clinically his volume depleted because of which I'll start him IV fluids stop of stop the diuretics at this time patient had normal ejection fraction in the past, patient does not appear to have even diastolic dysfunction the echocardiogram patient appears to have some mild aortic stenosis. Patient appears to have normal creatinine in recent time now had his creatinine is 1.28 patient denied any fever chills is no pneumonic infiltrate on the chest x-ray patient never smoked. Patient's BNP and appears to be around 100. Acute cough spells with vasovagal syncope Mr. Bradford is an 83-year-old male with a past medical history of GERD, esophageal cancer, hypertension, hyperlipidemia, chronic cough coming in with a chief complaint of cough spells. Patient has been coughing so much that he is having syncope. Currently being treated with IV steroids and breathing treatments. On 06/25/2019-patient is lying in bed appears to be in acute distress. He states he has had few coughing spells again today. 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 Patient denies having any fevers chills or rigors. No abdominal pain nausea vomiting or diarrhea. No dysuria or hematuria. On 06/26/2019- patient is comfortably lying in bed appears to be no acute distress. Patient's family members at the bedside. Patient states that he is still having coughing spells. He complains of hoarseness of his voice and also has nasal congestion. Denies having any chest pain or palpitations. No abdominal pain nausea vomiting or diarrhea. No dysuria or hematuria. 06/27/2019 Patient is sitting up in bed with at the bedside in no acute distress. Patient continues to have coughing spells but denies any syncopal episodes. Patient is scheduled to undergo bronchoscopy this afternoon with pulmonary. Currently patient denies any chest pain or palpitations. Patient is afebrile. Patient denies any nausea or vomiting and has been tolerating diet. 06/28/2019 Patient is sitting up at the site of the bed and appears to be in no acute distress. No acute overnight issues. Patient underwent bronchoscopy with BAL and tolerated well. Patient states that he feels much better and would like to go home today. Patient will follow-up with pulmonary in the outpatient setting for test results on the cytology obtained during the bronchoscope. Currently patient denies any chest pain, shortness of breath, or palpitations. Patient is afebrile. Patient denies any nausea or vomiting and is tolerating diet. Patient will continue on a short course of oral Levaquin for 1 week along with a prednisone taper in the outpatient setting. Patient was tested for home oxygen and did not qualify as he maintained oxygen saturations above 91% on room air with exertion. On exam vital signs are stable. Temp is 97.5F, pulse is 68, respirations are 18, blood pressure is 144/74, oxygen saturation is 94% on room air. Cardio S1, S2 are present. Respiratory system shows diminished breath sounds at the bases with some mild expiratory wheezing noted. Abdomen is soft, obese, nontender. Nervous system shows no focal deficits. Please refer to medication reconciliation sheet for list of medications. Patient Condition at Discharge: Fair Plan - Discharge Summary New Discharge Prescriptions: New Fluticasone Nasal Conway [Flonase Nasal Conway] 2 spray EA NOSTRIL DAILY 30 Days #1 spr Levofloxacin [Levaquin] 750 mg PO DAILY 7 Days #7 tab guaiFENesin [Mucinex] 1,200 mg PO Q12HR #20 tablet.er predniSONE 10 mg PO DIRECTED #50 tab Continue Nitroglycerin Sl Tabs [Nitrostat] 0.4 mg SUBLINGUAL Q5M PRN PRN Reason: Chest Pain Cetirizine HCl 10 mg PO DAILY Pravastatin Sodium [Pravachol] 80 mg PO HS Gabapentin [Neurontin] 600 mg PO BID@0800,1800 metFORMIN HCL [Glucophage] 1,000 mg PO BID Aspirin EC [Ecotrin Low Dose] 81 mg PO DAILY Allopurinol [Zyloprim] 300 mg PO DAILY Gabapentin [Neurontin] 1,200 mg PO HS Omeprazole 40 mg PO BID Magnesium Oxide 400 mg PO BID Zolpidem [Ambien] 10 mg PO HS INSULIN LISPRO (humaLOG) [humaLOG] See Protocol SQ ACHS PRN PRN Reason: HIGH BLOOD SUGAR Insulin Glargine,Hum.rec.anlog [Lantus Solostar] 40 unit SQ QAM Meloxicam [Mobic] 7.5 mg PO DAILY #60 tab Ipratropium-Albuterol Nebulize [Duoneb 0.5 mg-3 mg/3 ml Soln] 3 ml INHALATION RT-QID PRN PRN Reason: Shortness Of Breath Diclofenac Sodium Gel [Voltaren Gel] 1 applic TOPICAL BID Metoprolol Tartrate [Lopressor] 12.5 mg PO DAILY Albuterol Sulfate [Proair Hfa] 1 - 2 puff INHALATION RT-Q4H PRN PRN Reason: Shortness Of Breath Budesonide [Pulmicort] 1 mg INHALATION RT-DAILY #30 neb Changed Insulin Glargine,Hum.rec.anlog [Lantus Solostar] 30 unit SQ HS #0 Discontinued Potassium Chloride ER [K-Dur 10] 10 meq PO BID Torsemide [Demadex] 100 mg PO DAILY predniSONE See Taper PO DAILY Discharge Medication List Cetirizine HCl 10 mg PO DAILY 07/05/15 [History] Nitroglycerin Sl Tabs [Nitrostat] 0.4 mg SUBLINGUAL Q5M PRN 07/05/15 [History] Pravastatin Sodium [Pravachol] 80 mg PO HS 0320/18 [History] Gabapentin [Neurontin] 600 mg PO BID@0800,1800 09/09/17 [History] metFORMIN HCL [Glucophage] 1,000 mg PO BID 09/24/17 [History] Aspirin EC [Ecotrin Low Dose] 81 mg PO DAILY 12/24/17 [History] Allopurinol [Zyloprim] 300 mg PO DAILY 01/26/18 [History] Gabapentin [Neurontin] 1,200 mg PO HS 01/26/18 [History] Omeprazole 40 mg PO BID 01/26/18 [History] Magnesium Oxide 400 mg PO BID 08/04/18 [History] Zolpidem [Ambien] 10 mg PO HS 08/04/18 [History] INSULIN LISPRO (humaLOG) [humaLOG] See Protocol SQ ACHS PRN 12/01/18 [History] Insulin Glargine,Hum.rec.anlog [Lantus Solostar] 40 unit SQ QAM 12/01/18 [History] Meloxicam [Mobic] 7.5 mg PO DAILY #60 tab 12/22/18 [Rx] Ipratropium-Albuterol Nebulize [Duoneb 0.5 mg-3 mg/3 ml Soln] 3 ml INHALATION RT-QID PRN 04/22/19 [History] Diclofenac Sodium Gel [Voltaren Gel] 1 applic TOPICAL BID 05/06/19 [History] Metoprolol Tartrate [Lopressor] 12.5 mg PO DAILY 06/23/19 [History] Albuterol Sulfate [Proair Hfa] 1 - 2 puff INHALATION RT-Q4H PRN 06/24/19 [History] Budesonide [Pulmicort] 1 mg INHALATION RT-DAILY #30 neb 06/28/19 [Rx] Fluticasone Nasal Conway [Flonase Nasal [place]] 2 spray EA NOSTRIL DAILY 30 Days #1 spr 06/28/19 [Rx] Insulin Glargine,Hum.rec.anlog [Lantus Solostar] 30 unit SQ HS #0 06/28/19 [Rx] Levofloxacin [Levaquin] 750 mg PO DAILY 7 Days #7 tab 06/28/19 [Rx] guaiFENesin [Mucinex] 1,200 mg PO Q12HR #20 tablet.er 06/28/19 [Rx] predniSONE 10 mg PO DIRECTED #50 tab 06/28/19 [Rx] Follow up Appointment(s)/Referral(s): [facility], [NON-STAFF] - 1-2 Days Sumit Dozier DO [Primary Care Provider] - 07/06/19 10:00 am Wilder Brown MD [STAFF PHYSICIAN] - 07/22/19 2:30 pm Ambulatory/Diagnostic Orders: Basic Metabolic Panel [LAB.AMB] Time Frame: 2 Days, Location: None Selected Complete Blood Count w/diff [LAB.AMB] Time Frame: 2 Days, Location: None Selected Patient Instructions/Handouts: Prednisone (By mouth), Guaifenesin (By mouth), Levofloxacin (By mouth), Fluticasone (Into the nose), Syncope (DC), Bronchospasm (DC), Pneumonia (DC) Activity/Diet/Wound Care/Special Instructions: Activity Limited until follow-up Follow-up with primary care provider upon discharge Follow-up with pulmonary as discussed and scheduled Repeat labs in 2-3 days Continue antibiotics until finished Continue prednisone taper Continue to monitor blood sugars before meals at bedtime and keep a diary or log for primary care provider follow-up visit Continue current diet Discharge Disposition: HOME WITH HOME HEALTH SERVICES
== END 2019-06-28 13:50 | disposition home health service (06) | DRG 202 ==
LOC: EC 20:25 → 5NMEDONC 22:18 → OBSVTOIN 06-25 09:05
PROVIDERS: ADMIT Hospitalist; ATTEND Hospitalist
PROC: 0B9H8ZX Drainage of Lung Lingula, Via Natural or Artificial Opening Endoscopic, Diagnostic (ICD-10-PCS; principal; 2019-06-27 08:40)
PROC: 0B9J8ZX Drainage of Left Lower Lung Lobe, Via Natural or Artificial Opening Endoscopic, Diagnostic (ICD-10-PCS; principal; 2019-06-27 08:40)
PROC: 0B9M8ZX Drainage of Bilateral Lungs, Via Natural or Artificial Opening Endoscopic, Diagnostic (ICD-10-PCS; principal; 2019-06-27 08:40)
DX: J98.01 Acute bronchospasm (principal); J70.1 Chronic and other pulmonary manifestations due to radiation; N17.9 Acute kidney failure, unspecified; I11.0 Hypertensive heart disease with heart failure; E11.42 Type 2 diabetes mellitus with diabetic polyneuropathy; R05 Cough; E66.9 Obesity, unspecified; E78.5 Hyperlipidemia, unspecified; H91.90 Unspecified hearing loss, unspecified ear; K22.70 Barrett's esophagus without dysplasia; J42 Unspecified chronic bronchitis; M10.9 Gout, unspecified; I65.22 Occlusion and stenosis of left carotid artery; K21.9 Gastro-esophageal reflux disease without esophagitis; K44.9 Diaphragmatic hernia without obstruction or gangrene; M19.90 Unspecified osteoarthritis, unspecified site; R55 Syncope and collapse; E86.9 Volume depletion, unspecified; I35.0 Nonrheumatic aortic (valve) stenosis; Z79.1 Long term (current) use of non-steroidal anti-inflammatories (NSAID); Z79.4 Long term (current) use of insulin; Z79.51 Long term (current) use of inhaled steroids; Z79.82 Long term (current) use of aspirin; Z79.899 Other long term (current) drug therapy; Z88.0 Allergy status to penicillin; Z91.040 Latex allergy status; Z92.3 Personal history of irradiation; Z92.21 Personal history of antineoplastic chemotherapy; Z87.442 Personal history of urinary calculi; Z87.11 Personal history of peptic ulcer disease; Z87.01 Personal history of pneumonia (recurrent); Z85.01 Personal history of malignant neoplasm of esophagus; Z68.30 Body mass index [BMI] 30.0-30.9, adult; Z82.49 Family history of ischemic heart disease and other diseases of the circulatory system; Z80.51 Family history of malignant neoplasm of kidney; Z80.8 Family history of malignant neoplasm of other organs or systems
CPT/HCPCS: 31624; 31645; 36415; 71046; 71250; 80048; 82803; 83036; 83880; 84145; 85025; 85027; 87070; 87102; 87116; 87205; 87206; 87252; 87496; 87498; 87502; 87529; 87634; 87798; 88108; 88305; 89050; 93005; 94640; 94760; 96372; 99214; 99285

== ENCOUNTER → 2019-07-12 | Outpatient (CLI) | payer MEDICARE ==
--- NOTE | 2019-07-12 17:05 | US ---
EXAMINATION TYPE: US venous doppler duplex LE RT DATE OF EXAM: 07/12/2019 4:46 PM COMPARISON: NONE CLINICAL HISTORY: M79.604 Pain in right leg; R60.0. Pain and edema right leg SIDE PERFORMED: right TECHNIQUE: The lower extremity deep venous system is examined utilizing real time linear array sonog deyanira with graded compression, doppler sonography and color-flow sonography. VESSELS IMAGED: External Iliac Vein (EIV) Common Femoral Vein Deep Femoral Vein Greater Saphenous Vein * Femoral Vein Popliteal Vein Small Saphenous Vein * Proximal Calf Veins (* superficial vessels) Right Leg: No evidence of DVT as visualized IMPRESSION: No evidence of deep venous thrombosis in the right leg.
== END | disposition home or self-care (01) ==
LOC: RADUSWWP 16:29
PROVIDERS: ATTEND Physician Assistant Medical
DX: M79.604 Pain in right leg (principal); R60.0 Localized edema

== ENCOUNTER → 2019-07-14 | Outpatient (CLI) | payer MEDICARE ==
[2019-07-14 13:23] VITALS: BP 107/66; PULSE 58; RESP 22
--- NOTE | 2019-07-20 07:47 | P.PAINPG ---
Subjective Progress Note Date: 07/14/19 This is a follow up visit for this 83 year old male, with a chronic history of severe low back pain, patient diagnosed with lumbar degenerative disc disease and lumbar spondylosis with lumbar facet arthropathy, and cluneal nerve neuralgia, recently we have done lumbar epidural steroid injection at L3-4, last done on 06/21/2019. He returns today follow-up. He reports good ongoing relief from this procedure. Today, his primary pain complaint is low back pain, which intermittently shoots to the bilateral buttocks and lateral aspects of bilateral thighs. Pain is rated a 5/10 with activity. Pain is particularly worse with walking more than 200 feet, he has to stop and rest at this point. He denies numbness, weakness, tingling. 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 He last underwent lumbar RFA in December 2018 and reports >50% benefit, lasting >6 months. Review of systems is negative for chest pain, new onset weakness, numbness/tingling, abdominal pain, malaise, fever, night sweats, chills, homicidal or suicidal ideation, or bowel or bladder incontinence. OF note, he underwent a bronchoscopy on 06/27/2019 and is significantly short of breath. Physical exam: Vitals: Reviewed in EMR GENERAL: SOB, walker by his side PSYCH: Mood and affect is appropriate. Awake, alert, and oriented SKIN: Skin color, texture, turgor normal, no rashes or lesions HEENT: Normocephalic, atraumatic. EOM intact CV: No pedal edema RESP: Respirations are labored with audible wheezing GI: Abdomen non-distended MUSCULOSKELETAL: Bilateral lower extremity strength is normal and symmetric. No atrophy or tone abnormalities are noted. Lumbar spine: Tenderness to palpation along the lumbar spinous processes and bilateral paraspinal musculature. Limited lumbar extension. Straight leg raise is negative bilaterally. Bilateral facet loading positive. Buttocks: No pain to palpation over the PSIS, sacroiliac joint maneuvers are negative for pain. Extremities: Peripheral joint ROM is full and pain free without obvious instability or laxity in all four extremities. No edema or skin discolorations noted. Gait: Gait is slow, antalgic NEUR: Bilateral lower extremity coordination and muscle stretch reflexes are physiologic and symmetric. Negative clonus bilaterally. No loss of sensation is noted. [facility]= compression fracture L2-L3 and L4 and T12, multilevel lumbar bulging disc disease at L3 4 and L4 5, and multilevel lumbar facet arthropathy L2 3 L3 4 and L4 5 and L5-S1. Moderate to severe spinal canal stenosis at L3-4 with moderate bilateral neuroforaminal narrowing. At L4-5 mild to moderate spinal canal stenosis with mild to moderate left and moderate right neuroforaminal narrowing. Assessment and plan= chronic severe low back pain secondary to multifactorial causes 1-compression fracture of the lumbar spine. 2-lumbar degenerative disc disease. 3-lumbar spondylosis with lumbar facet arthropathy. 4-Bilateral cluneal nerve entrapment/neuropathy. 5- lumbar spinal canal stenosis Patient improved significantly after radiof requency ablation of the median branch lumbar area and cluneal nerve area as well as LESI. We will schedule L3, L4, L5 RFA, will start with the left side. I sent him to the emergency department today to have his SOB/cough evaluated. His procedure will be scheduled following resolution of respiratory symptoms. We will plan on avoiding steroids as the patient is diabetic and has reported increase in blood sugars following oral steroids. Medications: refills given for Mobic 7.5 mg #60 with 3 refills and Voltaren gel 1% 100 grams with 3 refills. PCP can take over these medications. PQRS Measure Charge Sheet Measure #130: Documentation of Current Meds in Medical Chart: Patient's medicat ions documented in chart Measure #226: Tobacco Use: Screen & Cessation Intervention: Pt not a tobacco user Measure #111: Pneumonia Vaccination: Pneumococcal vaccine administered or previously received Measure #47: Advance Care Plan: Advance care planning discussed & documented, pt chose/unable to give Measure #412: Opioid Treatment Agreement: No documentation of signed opioid treatment agreement Measure #317: Preventitive Care & Scrn High Bld Press & F/U: Blood pressure within normal limits Measure #128: Body Mass Index (BMI) Screening & Follow-up: BMI documented ABOVE normal parameters - f/u documented Measure #131: Pain Assessment & Follow-up: Pain positive & plan documented, Follow-up scheduled Measure #431: Unhealthy Alcohol Use Preventative Care & Scrn: Patient not identified as an unhealthy alcohol user PQRS Measure Charge Sheet PQRS Narrative: Smoking Status Never smoker Scale Used Numeric (1 - 10) Hx Alcohol Use (MH) Yes Home Medications: Ambulatory Orders Cetirizine HCl 10 mg PO DAILY 07/05/15 Nitroglycerin Sl Tabs [Nitrostat] 0.4 mg SUBLINGUAL Q5M PRN 07/05/15 Pravastatin Sodium [Pravachol] 80 mg PO HS 09/01/17 Gabapentin [Neurontin] 600 mg PO BID@0900,1800 09/09/17 metFORMIN HCL [Glucophage] 1,000 mg PO BID 09/24/17 Aspirin EC [Ecotrin Low Dose] 81 mg PO DAILY 12/24/17 Allopurinol [Zyloprim] 300 mg PO DAILY 01/26/18 Gabapentin [Neurontin] 1,200 mg PO HS@2200 01/26/18 Omeprazole 40 mg PO BID 01/26/18 Zolpidem [Ambien] 10 mg PO HS 08/04/18 Meloxicam [Mobic] 7.5 mg PO DAILY #60 tab 12/22/18 Ipratropium-Albuterol Nebulize [Duoneb 0.5 mg-3 mg/3 ml Soln] 3 ml INHALATION RT-Q4H PRN 04/22/19 Diclofenac Sodium Gel [Voltaren Gel] 2 gram TOPICAL BID PRN 05/06/19 Metoprolol Tartrate [Lopressor] 12.5 mg PO DAILY 06/23/19 Insulin Glargine,Hum.rec.anlog [Lantus Solostar] 12 unit SQ BID 07/12/19 Torsemide [Demadex] 100 mg PO DAILY 07/12/19 predniSONE See Taper PO DAILY 07/12/19 Budesonide [Pulmicort] 0.5 mg INHALATION RT-DAILY 07/14/19 Doxycycline Monohydrate [Monodox] 100 mg PO BID 07/14/19 Fluticasone Nasal Alba [Flonase Nasal [place]] 2 spray EA NOSTRIL HS 07/14/19 Insulin Lispro [humaLOG Kwikpen] See Protocol SQ ACHS 07/14/19 Potassium Chloride ER [K-Dur 10] 10 meq PO BID 07/14/19 Promethazine/Dextromethorphan [Promethazine-Dm Syrup] 5 ml PO BID 07/14/19 predniSONE 10 mg PO DAILY 07/14/19 Controlled Substance Measures - Controlled Substance Measures Is patient prescribed a controlled substance at discharge?: No
== END | disposition home or self-care (01) ==
LOC: PNWHC3 12:59
PROVIDERS: ATTEND Anesthesiology
DX: S32.009A Unspecified fracture of unspecified lumbar vertebra, initial encounter for closed fracture (principal); M48.061 Spinal stenosis, lumbar region without neurogenic claudication; M51.36 Other intervertebral disc degeneration, lumbar region; M47.816 Spondylosis without myelopathy or radiculopathy, lumbar region; M46.96 Unspecified inflammatory spondylopathy, lumbar region; G62.9 Polyneuropathy, unspecified; Z79.891 Long term (current) use of opiate analgesic; Z79.899 Other long term (current) drug therapy; Z79.84 Long term (current) use of oral hypoglycemic drugs; Z79.4 Long term (current) use of insulin; Z79.82 Long term (current) use of aspirin
CPT/HCPCS: 99211

== ENCOUNTER 2019-07-29 04:28 | Inpatient (IN) | payer MEDICARE ==
[2019-07-29 05:15] LABS: HCT 40.5 % (39.0-53.0); HGB 13.3 gm/dL (13.0-17.5); MCHC 32.9 g/dL (31.0-37.0); MCV 97.2 fL (80.0-100.0); Mean Platelet Volume 9.3; RBC 4.16 m/uL (4.30-5.90); RDW 15.6 % (11.5-15.5)
[2019-07-29 05:21] LABS: Appearance,Urine Clear (Clear); Bilirubin,Urine Negative (Negative); Blood,Urine Moderate (Negative); Color,Urine Yellow; Glucose,Urine (UA) 1+ (Negative); Ketones,Urine Negative (Negative); Leukocyte Esterase,Urine Negative (Negative); Mucus,Urine Rare /hpf; Nitrite,Urine Negative (Negative); PH, Urine 7.5 (5.0-8.0); Protein,Urine 1+ (Negative); RBC,Urine 145 /hpf (0-5); Specific Gravity,Urine 1.016 (1.001-1.035); WBC,Urine 1 /hpf (0-5)
--- NOTE | 2019-07-29 05:22 | ED ---
General Adult HPI - General Chief complaint: Neuro Symptoms/Deficit Stated complaint: SOB Altered Mental Status Source: patient, EMS Mode of arrival: EMS - History of Present Illness Initial comments: Colten is an 84-year-old male who presents to the ER today from shelter facility for evaluation of confusion, cough and shortness of breath. Patient was recently admitted the hospital for pneumonia, focal pneumonia, he improved during his hospital stay and was subsequently discharged to the nursing facility. He been doing well until this morning. Patient was in his usual state of health yesterday evening, at 11 PM he has found eating a cupcake in no acute distress. He then went to sleep, staff went to check on him and noted that he was having coughing spell and was awake. Patient was altered confused about where he was the date and why he was there. This is a significant change from his baseline. They also noted that he was coughing and his oxygen saturations were reading low. At that time EMS was contacted, EMS given a DuoNeb and increased supplemental oxygen from 2-4 L no nausea and saturation in the high 90s. - Related Data Home Medications Medication Instructions Recorded Confirmed Cetirizine HCl 10 mg PO DAILY 07/05/15 07/14/19 Nitroglycerin Sl Tabs [Nitrostat] 0.4 mg SUBLINGUAL Q5M PRN 07/05/15 07/14/19 Pravastatin Sodium [Pravachol] 80 mg PO HS 09/01/17 07/14/19 Aspirin EC [Ecotrin Low Dose] 81 mg PO DAILY 12/24/17 07/14/19 Allopurinol [Zyloprim] 300 mg PO DAILY 01/26/18 07/14/19 Ipratropium-Albuterol Nebulize 3 ml INHALATION RT-Q4H PRN 04/22/19 07/14/19 [Duoneb 0.5 mg-3 mg/3 ml Soln] Diclofenac Sodium Gel [Voltaren 2 gram TOPICAL BID PRN 05/06/19 07/14/19 Gel] Insulin Glargine,Hum.rec.anlog 12 unit SQ BID 07/12/19 07/14/19 [Lantus Solostar] Fluticasone Nasal [place] [Flonase 2 spray EA NOSTRIL HS 07/14/19 07/14/19 Nasal [place]] Insulin Lispro [humaLOG Kwikpen] See Protocol SQ ACHS 07/14/19 07/14/19 Previous Rx's Medication Instructions Recorded Acetaminophen Tab [Tylenol] 500 mg PO Q6HR PRN tab 07/25/19 Bisacodyl [Dulcolax] 10 mg PO DAILY PRN tablet. 07/25/19 Bisacodyl [Dulcolax] 10 mg RECTAL ONCE PRN supp 07/25/19 Budesonide [Pulmicort] 1 mg INHALATION RT-BID ml 07/25/19 Fluconazole [Diflucan] 100 mg PO HS tab 07/25/19 Formoterol Fumarate [Perforomist] 20 mcg INHALATION RT-BID nebu 07/25/19 Furosemide [Lasix] 40 mg PO DAILY tab 07/25/19 Gabapentin [Neurontin] 1,200 mg PO HS@2200 #1 cap 07/25/19 Gabapentin [Neurontin] 600 mg PO BID@0900,1800 #2 cap 07/25/19 INSULIN ASPART (NovoLOG) [NovoLOG 0 unit SQ ACHS vial 07/25/19 (formulary)] Ipratropium-Albuterol Nebulize 3 ml INHALATION RT-QID ml 07/25/19 [Duoneb 0.5 mg-3 mg/3 ml Soln] Pantoprazole [Protonix] 40 mg PO AC-BRKFST tablet. 07/25/19 Zolpidem [Ambien] 10 mg PO HS #1 tab 07/25/19 guaiFENesin-DM 100-10MG/5ML 5 ml PO BID ml 07/25/19 [Robitussin DM] predniSONE 10 mg PO DIRECTED #30 tab 07/25/19 Allergies Allergy/AdvReac Type Severity Reaction Status Date / Time latex Allergy Rash/Hives Verified 07/14/19 17:15 penicillin G Allergy Rash/Hives Verified 07/14/19 17:15 Review of Systems ROS Statement: Those systems with pertinent positive or pertinent negative responses have been documented in the HPI. ROS Other: All systems not noted in ROS Statement are negative. Past Medical History Past Medical History: Cancer, Diabetes Mellitus, GERD/Reflux, Hearing Disorder / Deafness, Hyperlipidemia, Hypertension, Memory Impairment, Musculoskeletal Disorder, Osteoarthritis (OA), Pneumonia, Renal Disease Additional Past Medical History / Comment(s): Fractures L2-L4 w/ [place] leg pain, epidural injections. DDD, Gout, CARDOSO'S esophagus, Esophageal CA-completed 28 radiation tx on 09/08/17, & 5 chemo tx 09/02/17. 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 "Some memory impairment RT to pain Rx." History of Any Multi-Drug Resistant Organisms: None Reported Past Surgical History: Appendectomy, Back Surgery, Orthopedic Surgery Additional Past Surgical History / Comment(s): Bilateral rotator cuff surgery, left foot surgery, thinks he has plate and screws, "esophagus radiofrequency a blation", [place] cataracts-lens implants, kyphoplasty. Pain procedures. epidural steroid injection in back Past Anesthesia/Blood Transfusion Reactions: No Reported Reaction Additional Past Anesthesia/Blood Transfusion Reaction / Comment(s): . Past Psychological History: No Psychological Hx Reported Smoking Status: Never smoker Past Alcohol Use History: Daily Past Drug Use History: None Reported - Past Family History Mother Family Medical History: Cancer Additional Family Medical History / Comment(s): kidney, Thyroid Father Family Medical History: Coronary Artery Disease (CAD) Additional Family Medical History / Comment(s): AT AGE 53. General Exam - General Exam Comments Initial Comments: Physical Exam GENERAL: Chronically ill-appearing elderly gentleman HENT: Normocephalic, Atraumatic. EYES: PERRL, EOMI PULMONARY: Crackles at bilateral bases, expiratory wheezing noted CARDIOVASCULAR: Tachycardia, regular ABDOMEN: Soft and nontender with normal bowel sounds. SKIN: Skin is clear with no lesions or rashes and otherwise unremarkable. : Catheter in place draining clear yellow urine NEUROLOGIC: Resting with eyes closed but reacts to voice, alert to self, able to identify he is in a hospital, uncertain of why, uncertain of where he came from, uncertain of day or date MUSCULOSKELETAL: Generalized weakness PSYCHIATRIC: Normal psychiatric evaluation. Course Vital Signs 07/29/19 07/29/19 07/29/19 04:34 04:45 04:50 Temperature 98.8 F 98.5 F Pulse Rate 131 H 131 H Pulse Rate [ 128 H Art Librarian ] Respiratory 23 20 20 Rate Blood Pressure 137/83 137/83 O2 Sat by Pulse 96 95 Oximetry 07/29/19 07/29/19 05:32 06:05 Temperature 100.4 F H Pulse Rate 118 H 114 H Pulse Rate [ Art Librarian ] Respiratory 19 19 Rate Blood Pressure 117/67 114/69 O2 Sat by Pulse 97 100 Oximetry EKG Findings - EKG Comments: EKG Findings:: EKG for evaluation of tachycardia, EKG obtained at 4:39 AM, rate 131 rhythm sinus tach, normal axis, normal intervals, MO 156 QRS 82 QTc 443 noticed elevations or depressions or evidence of ischemia or infarction Medical Decision Making - Medical Decision Making The patient was seen and evaluated, history is obtained from the patient, The at bedside and review of medical record 84-year-old gentleman recently admitted for pneumonia, blood cultures were negative however bronchial washings revealed very atypical bacteria. Decision was made to discharge patient without oral antibiotics. Today the patient was noted to be hypoxic, tachycardic with a tactile fever A full sepsis workup was initiated Influenza was negative, labs reviewed, lactic acid mildly elevated, troponin mildly elevated, EKG was nonischemic troponin elevation likely secondary to hypoxia. Plan to admit the patient for Sirs of unknown origin, infectious disease consult upon admission - Lab Data Result diagrams: 07/29/19 05:00 07/29/19 04:52 Lab Results 07/29/19 07/29/19 07/29/19 Range/Units 04:52 04:52 05:00 WBC 4.0 (3.8-10.6) k/uL RBC 4.16 L (4.30-5.90) m/uL Hgb 13.3 (13.0-17.5) gm/dL Hct 40.5 (39.0-53.0) % MCV 97.2 (80.0-100.0) fL MCH 32.0 (25.0-35.0) pg MCHC 32.9 (31.0-37.0) g/dL RDW 15.6 H (11.5-15.5) % Plt Count 88 L (150-450) k/uL Neutrophils % (Manual) 71 % Band Neutrophils % 20 % Lymphocytes % (Manual) 8 % Monocytes % (Manual) 1 % Neutrophils # (Manual) 3.60 (1.3-7.7) k/uL Lymphocytes # (Manual) 0.32 L (1.0-4.8) k/uL Monocytes # (Manual) 0.04 (0-1.0) k/uL Nucleated RBCs 0 (0-0) /100 WBC Manual Slide Review Performed Large Platelets Present PT (9.0-12.0) sec INR (<1.2) APTT (22.0-30.0) sec Sodium 137 (137-145) mmol/L Potassium 4.7 (3.5-5.1) mmol/L Chloride 106 (98-107) mmol/L Carbon Dioxide 22 (22-30) mmol/L Anion Gap 9 mmol/L BUN 15 (9-20) mg/dL Creatinine 0.74 (0.66-1.25) mg/dL Est GFR (CKD-EPI)AfAm >90 (>60 ml/min/1.73 sqM) Est GFR (CKD-EPI)NonAf 86 (>60 ml/min/1.73 sqM) Glucose 225 H (74-99) mg/dL Plasma Lactic Acid Nestor 3.2 H* (0.7-2.0) mmol/L Calcium 8.5 (8.4-10.2) mg/dL Total Bilirubin 1.2 (0.2-1.3) mg/dL AST 44 (17-59) U/L ALT 70 H (4-49) U/L Alkaline Phosphatase 51 (38-126) U/L Troponin I (0.000-0.034) ng/mL NT-Pro-B Natriuret Pep pg/mL Total Protein 5.9 L (6.3-8.2) g/dL Albumin 3.1 L (3.5-5.0) g/dL Urine Color Urine Appearance (Clear) Urine pH (5.0-8.0) Ur Specific [place] (1.001-1.035) Urine Protein (Negative) Urine Glucose (UA) (Negative) Urine Ketones (Negative) Urine Blood (Negative) Urine Nitrite (Negative) Urine Bilirubin (Negative) Urine Urobilinogen (<2.0) mg/dL Ur Leukocyte Esterase (Negative) Urine RBC (0-5) /hpf Urine WBC (0-5) /hpf Urine Mucus (None) /hpf Influenza Type A RNA (Not Detectd) Influenza Type B (PCR) (Not Detectd) 07/29/19 07/29/19 07/29/19 Range/Units 05:00 05:00 05:00 WBC (3.8-10.6) k/uL RBC (4.30-5.90) m/uL Hgb (13.0-17.5) gm/dL Hct (39.0-53.0) % MCV (80.0-100.0) fL MCH (25.0-35.0) pg MCHC (31.0-37.0) g/dL RDW (11.5-15.5) % Plt Count (150-450) k/uL Neutrophils % (Manual) % Band Neutrophils % % Lymphocytes % (Manual) % Monocytes % (Manual) % Neutrophils # (Manual) (1.3-7.7) k/uL Lymphocytes # (Manual) (1.0-4.8) k/uL Monocytes # (Manual) (0-1.0) k/uL Nucleated RBCs (0-0) /100 WBC Manual Slide Review Large Platelets PT 9.6 (9.0-12.0) sec INR 0.9 (<1.2) APTT 21.6 L (22.0-30.0) sec Sodium (137-145) mmol/L Potassium (3.5-5.1) mmol/L Chloride (98-107) mmol/L Carbon Dioxide (22-30) mmol/L Anion Gap mmol/L BUN (9-20) mg/dL Creatinine (0.66-1.25) mg/dL Est GFR (CKD-EPI)AfAm (>60 ml/min/1.73 sqM) Est GFR (CKD-EPI)NonAf (>60 ml/min/1.73 sqM) Glucose (74-99) mg/dL Plasma Lactic Acid Nestor (0.7-2.0) mmol/L Calcium (8.4-10.2) mg/dL Total Bilirubin (0.2-1.3) mg/dL AST (17-59) U/L ALT (4-49) U/L Alkaline Phosphatase (38-126) U/L Troponin I 0.068 H* (0.000-0.034) ng/mL NT-Pro-B Natriuret Pep 354 pg/mL Total Protein (6.3-8.2) g/dL Albumin (3.5-5.0) g/dL Urine Color Urine Appearance (Clear) Urine pH (5.0-8.0) Ur Specific [place] (1.001-1.035) Urine Protein (Negative) Urine Glucose (UA) (Negative) Urine Ketones (Negative) Urine Blood (Negative) Urine Nitrite (Negative) Urine Bilirubin (Negative) Urine Urobilinogen (<2.0) mg/dL Ur Leukocyte Esterase (Negative) Urine RBC (0-5) /hpf Urine WBC (0-5) /hpf Urine Mucus (None) /hpf Influenza Type A RNA (Not Detectd) Influenza Type B (PCR) (Not Detectd) 07/29/19 07/29/19 Range/Units 05:00 05:05 WBC (3.8-10.6) k/uL RBC (4.30-5.90) m/uL Hgb (13.0-17.5) gm/dL Hct (39.0-53.0) % MCV (80.0-100.0) fL MCH (25.0-35.0) pg MCHC (31.0-37.0) g/dL RDW (11.5-15.5) % Plt Count (150-450) k/uL Neutrophils % (Manual) % Band Neutrophils % % Lymphocytes % (Manual) % Monocytes % (Manual) % Neutrophils # (Manual) (1.3-7.7) k/uL Lymphocytes # (Manual) (1.0-4.8) k/uL Monocytes # (Manual) (0-1.0) k/uL Nucleated RBCs (0-0) /100 WBC Manual Slide Review Large Platelets PT (9.0-12.0) sec INR (<1.2) APTT (22.0-30.0) sec Sodium (137-145) mmol/L Potassium (3.5-5.1) mmol/L Chloride (98-107) mmol/L Carbon Dioxide (22-30) mmol/L Anion Gap mmol/L BUN (9-20) mg/dL Creatinine (0.66-1.25) mg/dL Est GFR (CKD-EPI)AfAm (>60 ml/min/1.73 sqM) Est GFR (CKD-EPI)NonAf (>60 ml/min/1.73 sqM) Glucose (74-99) mg/dL Plasma Lactic Acid Nestor (0.7-2.0) mmol/L Calcium (8.4-10.2) mg/dL Total Bilirubin (0.2-1.3) mg/dL AST (17-59) U/L ALT (4-49) U/L Alkaline Phosphatase (38-126) U/L Troponin I (0.000-0.034) ng/mL NT-Pro-B Natriuret Pep pg/mL Total Protein (6.3-8.2) g/dL Albumin (3.5-5.0) g/dL Urine Color Yellow Urine Appearance Clear (Clear) Urine pH 7.5 (5.0-8.0) Ur Specific [place] 1.016 (1.001-1.035) Urine Protein 1+ H (Negative) Urine Glucose (UA) 1+ H (Negative) Urine Ketones Negative (Negative) Urine Blood Moderate H (Negative) Urine Nitrite Negative (Negative) Urine Bilirubin Negative (Negative) Urine Urobilinogen 2.0 (<2.0) mg/dL Ur Leukocyte Esterase Negative (Negative) Urine RBC 145 H (0-5) /hpf Urine WBC 1 (0-5) /hpf Urine Mucus Rare H (None) /hpf Influenza Type A RNA Not Detected (Not Detectd) Influenza Type B (PCR) Not Detected (Not Detectd) Disposition Clinical Impression: Fever, Altered mental state, SIRS (systemic inflammatory response syndrome), Elevated troponin Disposition: ADMITTED IP TO THIS HOSP Condition: Serious Is patient prescribed a controlled substance at d/c from ED?: No
[2019-07-29 05:26] LABS: African American GFR (CKD) >90 (>60 ml/min/1.73 sqM); Albumin 3.1 g/dL (3.5-5.0); Anion Gap 9 mmol/L; Calcium 8.5 mg/dL (8.4-10.2); Carbon Dioxide 22 mmol/L (22-30); Chloride 106 mmol/L (98-107); Glucose 225 mg/dL (74-99); Non-African American GFR(CKD) 86 (>60 ml/min/1.73 sqM); Sodium 137 mmol/L (137-145); Total Bilirubin 1.2 mg/dL (0.2-1.3); Total Protein 5.9 g/dL (6.3-8.2)
[2019-07-29 05:27] LABS: ALT 70 U/L (4-49); AST 44 U/L (17-59); Alkaline Phosphatase 51 U/L (38-126); Blood Urea Nitrogen 15 mg/dL (9-20); Potassium 4.7 mmol/L (3.5-5.1)
[2019-07-29 05:30] LABS: INR 0.9 (<1.2); Prothrombin Time 9.6 sec (9.0-12.0)
[2019-07-29 05:34] LABS: Partial Thromboplastin Time 21.6 sec (22.0-30.0)
--- NOTE | 2019-07-29 05:37 | XR ---
EXAM: XR Chest, 1 View CLINICAL HISTORY: Fever, cough, recent pneumonia TECHNIQUE: Frontal view of the chest. COMPARISON: CT chest from 07/17/19 FINDINGS: Lungs: Lungs are inflated. Small amount of airspace opacities or bilateral lower lungs Pleural space: Unremarkable. No pneumothorax. Heart: Unremarkable. No cardiomegaly. Mediastinum: Unremarkable. Bones/joints: Unremarkable. IMPRESSION: Lung findings are likely due to underinflation rather than pneumonia.
[2019-07-29 05:50] LABS: Platelet Count 88 k/uL (150-450)
[2019-07-29 05:53] LABS: Band Neutrophils % 20 %; Lymphocytes # (M) 0.32 k/uL (1.0-4.8); Monocytes # (M) 0.04 k/uL (0-1.0); Neutrophils % (M) 71 %; Nucleated Red Blood Cells 0 /100 WBC (0-0); Total Cells Counted 100
[2019-07-29 05:54] LABS: Large Platelets Present
[2019-07-29] MEDS ORDERED: ACETAMINOPHEN TAB 325 MG TAB PO STA (06:21)
[2019-07-29] MEDS ORDERED: PNEUMONIA PROTOCOL UTILIZED 1 EACH MISC PO PRN (06:38)
[2019-07-29] MEDS ORDERED: SODIUM CHLORIDE 0.9% 250 ML IV STA (08:03)
[2019-07-29] MEDS: SODIUM CHLORIDE 0.9% 1,000 ML IV SCH ×2 (08:11→21:43)
[2019-07-29] MEDS ORDERED: AZITHROMYCIN 500 MG in SODIUM CHLORIDE 0.9% 250 ML IVPB SCH (09:00)
--- NOTE | 2019-07-29 10:13 | XR ---
EXAMINATION TYPE: XR chest 1V portable DATE OF EXAM: 07/29/2019 COMPARISON: 07/29/2019 earlier exam INDICATION: Short of breath TECHNIQUE: Single frontal view of the chest is obtained. FINDINGS: The heart size is normal. The pulmonary vasculature is normal. Bibasilar infiltrates are present, greater at the left lung base. Correlate for pneumonia. IMPRESSION: 1. Findings appear suggestive for worsening left lower lobe pneumonia. A mild infiltrate at the right base is present. Pneumonia or atelectasis could be considered. Follow-up chest studies are recommend ed.
--- NOTE | 2019-07-29 14:59 | P.CNPUL ---
History of Present Illness Consult date: 07/29/19 Requesting physician: Bear Sampson Reason for consult: dyspnea, cough Chief complaint: Dyspnea, cough, congestion History of present illness: 89-year-old white male patient of Dr. Dozier, with past medical history of hypertension, hyperlipidemia, diabetes, GERD, chronic cough, recurrent pulmonary infections requiring bronchoalveolar lavage with peripheral cultures positive for stenotrophomonas maltophilia resistant to Levaquin, ceftazidime, and Bactrim. Patient also had an episode of ARDS in 2018, gout, esophageal cancer with 28 previous radiation treatments and chemotherapy completed in August 2017. Patient was recently hospitalized for tracheobronchitis, with sputum cultures positive for Stenotrophomonas maltophilia. Per ID service and no antibiotics were recommended. Patient was discharged to the [facility] in stable medical condition. Apparently early this morning on 07/29/2019 staff at the [facility] found the patient short of breath, coughing, congested and confused. He was bringing up large amount of phlegm is quite thick and brown in color. Emergency department chest x-ray showed small amount of airspace opacities and bilateral lower lungs, there was felt to be related to atelectasis, hypoventilation rather than pneumonia. I am work showed white blood count of 4.0, hemoglobin of 13.3, platelet count of 88, INR was 0.9, electrolytes were within normal limits, BUN was 15 creatinine 0.74. ProBNP was 354, troponin was 0.068, urinalysis showed moderate amount of blood, but no evidence of infection, influenza screen was negative. Patient was febrile with a temp of 100.4F. Started on Zithromax and Rocephin, was given a dose of tigecycline. He is curre ntly resting comfortably on the stretcher in the emergency department, in no acute distress, pulse ox is 99% on 2 L, vital signs are stable, low-grade fever 99.0F, in sinus mechanism with a controlled rate. No complaints of chest pain, his mentation is improving, he is answering questions appropriately. Review of Systems All systems: negative Constitutional: Reports weakness, Denies chills, Denies fever Eyes: denies blurred vision, denies pain Ears, nose, mouth and throat: Denies headache, Denies sore throat Cardiovascular: Denies chest pain, Denies shortness of breath Respiratory: Reports congestion, Reports cough with sputum, Reports dyspnea, Reports respiratory infections, Denies cough Gastrointestinal: Denies abdominal pain, Denies diarrhea, Denies nausea, Denies vomiting Musculoskeletal: Denies myalgias Integumentary: Denies pruritus, Denies rash Neurological: Reports change in mentation, Reports confusion, Denies numbness, Denies weakness Psychiatric: Denies anxiety, Denies depression Endocrine: Denies fatigue, Denies weight change Past Medical History Past Medical History: Cancer, Diabetes Mellitus, GERD/Reflux, Hearing Disorder / Deafness, Hyperlipidemia, Hypertension, Memory Impairment, Musculoskeletal Disorder, Osteoarthritis (OA), Pneumonia, Renal Disease Additional Past Medical History / Comment(s): Fractures L2-L4 w/ paulina leg pain, epidural injections. DDD, Gout, CARDOSO'S esophagus, Esophageal CA-completed 28 radiation tx on 09/08/17, & 5 chemo tx 09/02/17. 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 "Some memory impairment RT to pain Rx." History of Any Multi-Drug Resistant Organisms: None Reported Past Surgical History: Appendectomy, Back Surgery, Orthopedic Surgery Additional Past Surgical History / Comment(s): Bilateral rotator cuff surgery, left foot surgery, thinks he has plate and screws, "esophagus radiofrequency ablation", paulina cataracts-lens implants, kyphoplasty. Pain procedures. epidural steroid injection in back Past Anesthesia/Blood Transfusion Reactions: No Reported Reaction Additional Past Anesthesia/Blood Transfusion Reaction / Comment(s): . Past Psychological History: No Psychological Hx Reported Smoking Status: Never smoker Past Alcohol Use History: Daily Past Drug Use History: None Reported - Past Family History Mother Family Medical History: Cancer Additional Family Medical History / Comment(s): kidney, Thyroid Father Family Medical History: Coronary Artery Disease (CAD) Additional Family Medical History / Comment(s): AT AGE 53. Medications and Allergies Home Medications Medication Instructions Recorded Confirmed Type Cetirizine HCl 10 mg PO DAILY 07/05/15 07/29/19 History Nitroglycerin Sl Tabs [Nitrostat] 0.4 mg SUBLINGUAL Q5M PRN 07/05/15 07/29/19 History Pravastatin Sodium [Pravachol] 80 mg PO HS@199909/01/17 07/29/19 History Aspirin EC [Ecotrin Low Dose] 81 mg PO HS 12/24/17 07/29/19 History Allopurinol [Zyloprim] 300 mg PO DAILY 01/26/18 07/29/19 History Ipratropium-Albuterol Nebulize 3 ml INHALATION RT-Q6H 04/22/19 07/29/19 History [Duoneb 0.5 mg-3 mg/3 ml Soln] Insulin Glargine,Hum.rec.anlog 12 unit SQ BID 07/12/19 07/29/19 History [Lantus Solostar] Fluticasone Nasal Keeler [Flonase 2 spray EA NOSTRIL HS@199907/14/19 07/29/19 History Nasal Keeler] Acetaminophen Tab [Tylenol] 500 mg PO Q6HR PRN tab 07/25/19 07/29/19 Rx Bisacodyl [Dulcolax] 10 mg PO DAILY PRN tablet. 07/25/19 07/29/19 Rx Budesonide [Pulmicort] 1 mg INHALATION RT-BID ml 07/25/19 07/29/19 Rx Formoterol Fumarate [Perforomist] 20 mcg INHALATION RT-BID nebu 07/25/19 07/29/19 Rx Furosemide [Lasix] 40 mg PO DAILY tab 07/25/19 07/29/19 Rx Gabapentin [Neurontin] 1,200 mg PO HS@0 #1 cap 07/25/19 07/29/19 Rx Pantoprazole [Protonix] 40 mg PO AC-BRKFST tablet. 07/25/19 07/29/19 Rx guaiFENesin-DM 100-10MG/5ML 5 ml PO BID ml 07/25/19 07/29/19 Rx [Robitussin DM] Bisacodyl 10 mg PO DAILY PRN 07/29/19 07/29/19 History Fluconazole [Diflucan] 100 mg PO HS@199907/29/19 07/29/19 History Gabapentin [Neurontin] 600 mg PO BID 07/29/19 07/29/19 History INSULIN ASPART (NovoLOG) [NovoLOG See Protocol SQ ACHS 07/29/19 07/29/19 History (formulary)] Ipratropium-Albuterol Nebulize 3 ml INHALATION RT-Q4H PRN 07/29/19 07/29/19 History [Duoneb 0.5 mg-3 mg/3 ml Soln] Potassium Chloride ER [K-Dur 20] 20 meq PO BID 07/29/19 07/29/19 History Torsemide [Demadex] 100 mg PO DAILY 07/29/19 07/29/19 History Zolpidem [Ambien] 10 mg PO HS@199907/29/19 07/29/19 History predniSONE See Taper PO DAILY 07/29/19 07/29/19 History Allergies Allergy/AdvReac Type Severity Reaction Status Date / Time latex Allergy Rash/Hives Verified 07/29/19 08:10 penicillin G Allergy Rash/Hives Verified 07/29/19 08:10 Physical Exam Vitals: Vital Signs Temp Pulse Pulse Resp BP Pulse Ox 07/29/19 12:00 101 H 18 97/61 99 07/29/19 11:49 99.0 F 97 18 98 07/29/19 11:00 105 H 18 97/58 99 07/29/19 10:30 96 18 90/58 97 07/29/19 10:00 102 H 18 82/52 96 07/29/19 09:30 104 H 16 79/53 07/29/19 09:00 105 H 16 81/56 95 07/29/19 08:30 100 16 95/59 94 L 07/29/19 08:00 100.3 F H 113 H 16 105/68 95 07/29/19 07:30 114 H 16 76/55 96 07/29/19 07:20 115 H 16 90/61 96 07/29/19 06:05 100.4 F H 114 H 19 114/69 100 07/29/19 05:32 118 H 19 117/67 97 07/29/19 04:50 98.5 F 131 H 20 137/83 95 07/29/19 04:45 128 H 20 07/29/19 04:34 98.8 F 131 H 23 137/83 96 Intake and Output 07/28/19 07/29/19 07/29/19 22:59 06:59 14:59 Intake Total 20 Balance 20 Intake: IV 20 Invasive Line 1 20 Other: Weight 97.296 kg GENERAL EXAM: Alert, very pleasant 84-year-old white male, 2 L of oxygen with pulse ox of 99%, in no acute distress, patient has the Cushingoid features with valencia facies and redness involving his face, comfortable in no apparent distress. HEAD: Normocephalic/atraumatic. EYES: Normal reaction of pupils, equal size. Conjunctiva pink, sclera white. NOSE: Clear with pink turbinates. THROAT: No erythema or exudates. NECK: No masses, no JVD, no thyroid enlargement, no adenopathy. CHEST: No chest wall deformity. Symmetrical expansion. LUNGS: Equal air entry with no crackles, wheeze, rhonchi or dullness. CVS: Regular rate and rhythm, normal S1 and S2, no gallops, no murmurs, no rubs ABDOMEN: Soft, nontender. No hepatosplenomegaly, normal bowel sounds, no guarding or rigidity. EXTREMITIES: No clubbing, 1+ pitting edema in bilateral lower extremities, no cyanosis, 2+ pulses and upper and lower extremities. MUSCULOSKELETAL: Muscle strength and tone normal. SPINE: No scoliosis or deformity SKIN: No rashes CENTRAL NERVOUS SYSTEM: Alert and oriented -3. No focal deficits, tone is nor mal in all 4 extremities. PSYCHIATRIC: Alert and oriented -3. Appropriate affect. Intact judgment and insight. Results - Laboratory Findings CBC and BMP: 07/29/19 05:00 07/29/19 04:52 PT/INR, D-dimer PT 9.6 sec (9.0-12.0) 07/29/19 05:00 INR 0.9 (<1.2) 07/29/19 05:00 Abnormal lab findings: Abnormal Labs 07/29/19 07/29/19 07/29/19 04:52 04:52 05:00 RBC 4.16 L RDW 15.6 H Plt Count 88 L Lymphocytes # (Manual) 0.32 L APTT Glucose 225 H Plasma Lactic Acid Nestor 3.2 H* ALT 70 H Troponin I Total Protein 5.9 L Albumin 3.1 L Urine Protein Urine Glucose (UA) Urine Blood Urine RBC Urine Mucus 07/29/19 07/29/19 07/29/19 05:00 05:00 05:00 RBC RDW Plt Count Lymphocytes # (Manual) APTT 21.6 L Glucose Plasma Lactic Acid Nestor ALT Troponin I 0.068 H* Total Protein Albumin Urine Protein 1+ H Urine Glucose (UA) 1+ H Urine Blood Moderate H Urine RBC 145 H Urine Mucus Rare H - Diagnostic Findings Chest x-ray: report reviewed, image reviewed Assessment and Plan Plan: Assessment: #1. Acute on chronic dyspnea, chest x-ray showed atelectasis possibility of left lower lobe pneumonia, and right base pneumonia is not excluded #2. Recent hospitalization for tracheobronchitis with sputum culture positive for trichomonas maltophilia multidrug resistant, including Levaquin, ceftazidime, and Bactrim #3. Altered mentation at the [facility] at the time of symptom onset with coughing, confusion, and chest congestion, improved #4. Plasma lactic acidosis, possibly related to sepsis, improved with hydration #5. Elevated troponins, possibly related to sepsis #6. 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 History of esophageal cancer status post resection and subsequent radiofrequency ablation at [facility] in November 2012 with recurrence and chemoradiation in 2018 completed 09/02/2017 #8. Obesity #9. Hypertension #10. Hyperlipidemia #11. Gout #12. Lifelong nonsmoker with normal pulmonary function testing #13. History of chronic kidney disease #14. History of left carotid occlusion Plan: Continue antibiotics per ID service recommendations, continue breathing treatments, clinically patient is stable, his mentation is improved, monitor fever pattern, monitor labs. Patient is stable to go to selective care unit. We will continue to follow I performed a history & physical examination of the patient and discussed their management with my nurse practitioner, Shae Freeman. I reviewed the nurse practitioner's note and agree with the documented findings and plan of care. Lung sounds are positive for diminished sounds. The findings and the impression was discussed with the patient. I attest to the documentation by the nurse practitioner. Time with Patient: Greater than 30
[2019-07-29 16:54] LABS: Glucose,Whole Blood 347 mg/dL (75-99)
[2019-07-29] MEDS ORDERED: TIGECYCLINE 100 MG in SODIUM CHLORIDE 0.9% 100 ML IVPB ONE (17:00)
[2019-07-29] MEDS: PANTOPRAZOLE 40 MG TABLET PO SCH (18:11)
[2019-07-29] MEDS: INSULIN ASPART (NovoLOG) 100 UNIT/ML VIAL SQ SCH (18:11)
[2019-07-29] MEDS ORDERED: BISACODYL 5 MG TABLET.DR PO PRN ×2 (18:23)
[2019-07-29] MEDS ORDERED: NITROGLYCERIN SL TABS 0.4 MG TAB SUBLINGUAL PRN (18:23)
[2019-07-29] MEDS: FLUCONAZOLE 100 MG TAB PO SCH (20:34)
[2019-07-29] MEDS: FLUTICASONE 50MCG/SPRAY NASAL 16GM EA NOSTRIL SCH (20:34)
[2019-07-29] MEDS: PRAVASTATIN SODIUM 80 MG TAB PO SCH (20:34)
[2019-07-29] MEDS: POTASSIUM CHLORIDE ER 20 MEQ TAB.ER PO SCH (20:34)
[2019-07-29] MEDS: guaiFENesin-DM 100-10MG/5ML 10 ML CUP PO SCH (20:34)
[2019-07-29 20:43] LABS: Glucose,Whole Blood 260 mg/dL (75-99)
[2019-07-29] MEDS: BUDESONIDE 1 MG/2 ML NEBU INHALATION SCH (21:18)
[2019-07-29] MEDS: IPRATROPIUM-ALBUTEROL 3 ML NEB INHALATION SCH (21:18)
[2019-07-29] MEDS: FORMOTEROL FUMARATE 20 MCG/2 ML NEBU INHALATION SCH (21:19)
[2019-07-29] MEDS: INSULIN DETEMIR (LEVEMIR) 100 UNIT/ML SYR SQ SCH (21:41)
[2019-07-29] MEDS: ZOLPIDEM 10 MG TAB PO SCH (21:41)
[2019-07-29] MEDS: CEFEPIME 2 GM in SODIUM CHLORIDE 0.9% 100 ML IVPB SCH (21:42)
[2019-07-29] MEDS: GABAPENTIN 300 MG CAP PO SCH (21:43)
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
[2019-07-29] MEDS: ACETAMINOPHEN TAB 325 MG TAB PO PRN (21:49)
[2019-07-29] MEDS ORDERED: VANCOMYCIN IV PER PHARMACY 1 EACH MISC MISCELLANE PRN (22:29)
--- NOTE | 2019-07-29 22:36 | P.CONS ---
History of Present Illness - Reason for Consult Consult date: 07/29/19 Pneumonia Requesting physician: Bear Sampson - Chief Complaint Increasing shortness of breath and cough x one day - History of Present Illness Patient is 84-year-old male with a past medical history significant for advanced COPD in this patient who was recently admitted at this facility and was treated for COPD exacerbation with tracheobronchitis the patient's sputum was positive for stenotrophomonas subsequently did have a bronchoscopy which did reveal multiple drug resistance stenotrophomonas, as the patient did not have any features suggestive of pneumonia hence no antibiotic was adjusted and the patient was treated with steroids and bronchodilator after stabilization the patient was discharged to the care home for rehabilitation with the patient w as doing well for 2-3 days however early this morning the patient had did have a severe coughing spells with associated worsening shortness of breath for which the patient was sent to [facility] patient complaining of cough which is moderate in intensity and is bringing up some cheng sputum and no hemoptysis patient denies having any associated chest pain however he did have shortness of breath associated with it in the ER the patient did have low-grade fever 100.4, he was slightly tachycardic, white count was normal, chest x-ray with left lower lobe ulceration suspicious for pneumonia patient was started on Rocephin and Zithromax infection disease was consulted for further recommendation regarding antibiotic therapy Review of Systems Positive point has been mentioned in the HPI rest of the systems are negative Past Medical History Past Medical History: Cancer, Diabetes Mellitus, GERD/Reflux, Hearing Disorder / Deafness, Hyperlipidemia, Hypertension, Memory Impairment, Musculoskeletal Disorder, Osteoarthritis (OA), Pneumonia, Renal Disease Additional Past Medical History / Comment(s): Fractures L2-L4 w/ paulina leg pain, epidural injections. DDD, Gout, CARDOSO'S esophagus, Esophageal CA-completed 28 radiation tx on 09/08/17, & 5 chemo tx 09/02/17. 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 "Some memory impairment RT to pain Rx." History of Any Multi-Drug Resistant Organisms: None Reported Past Surgical History: Appendectomy, Back Surgery, Orthopedic Surgery Additional Past Surgical History / Comment(s): Bilateral rotator cuff surgery, left foot surgery, thinks he has plate and screws, "esophagus radiofrequency ablation", paulina cataracts-lens implants, kyphoplasty. Pain procedures. epidural steroid injection in back Past Anesthesia/Blood Transfusion Reactions: No Reported Reaction Additional Past Anesthesia/Blood Transfusion Reaction / Comm: . Past Psychological History: No Psychological Hx Reported Smoking Status: Never smoker Past Alcohol Use History: Daily Past Drug Use History: None Reported - Past Family History Mother Family Medical History: Cancer Additional Family Medical History / Comment(s): kidney, Thyroid Father Family Medical History: Coronary Artery Disease (CAD) Additional Family Medical History / Comment(s): AT AGE 53. Medications and Allergies Home Medications Medication Instructions Recorded Confirmed Type Cetirizine HCl 10 mg PO DAILY 07/05/15 07/29/19 History Nitroglycerin Sl Tabs [Nitrostat] 0.4 mg SUBLINGUAL Q5M PRN 07/05/15 07/29/19 History Pravastatin Sodium [Pravachol] 80 mg PO HS@199909/01/17 07/29/19 History Aspirin EC [Ecotrin Low Dose] 81 mg PO HS 12/24/17 07/29/19 History Allopurinol [Zyloprim] 300 mg PO DAILY 01/26/18 07/29/19 History Ipratropium-Albuterol Nebulize 3 ml INHALATION RT-Q6H 04/22/19 07/29/19 History [Duoneb 0.5 mg-3 mg/3 ml Soln] Insulin Glargine,Hum.rec.anlog 12 unit SQ BID 07/12/19 07/29/19 History [Lantus Solostar] Fluticasone Nasal [place] [Flonase 2 spray EA NOSTRIL HS@199907/14/19 07/29/19 History Nasal [place]] Acetaminophen Tab [Tylenol] 500 mg PO Q6HR PRN tab 07/25/19 07/29/19 Rx Bisacodyl [Dulcolax] 10 mg PO DAILY PRN tablet. 07/25/19 07/29/19 Rx Budesonide [Pulmicort] 1 mg INHALATION RT-BID ml 07/25/19 07/29/19 Rx Formoterol Fumarate [Perforomist] 20 mcg INHALATION RT-BID nebu 07/25/19 07/29/19 Rx Furosemide [Lasix] 40 mg PO DAILY tab 07/25/19 07/29/19 Rx Gabapentin [Neurontin] 1,200 mg PO HS@0 #1 cap 07/25/19 07/29/19 Rx Pantoprazole [Protonix] 40 mg PO AC-BRKFST tablet. 07/25/19 07/29/19 Rx guaiFENesin-DM 100-10MG/5ML 5 ml PO BID ml 07/25/19 07/29/19 Rx [Robitussin DM] Bisacodyl 10 mg PO DAILY PRN 07/29/19 07/29/19 History Fluconazole [Diflucan] 100 mg PO HS@199907/29/19 07/29/19 History Gabapentin [Neurontin] 600 mg PO BID 07/29/19 07/29/19 History INSULIN ASPART (NovoLOG) [NovoLOG See Protocol SQ ACHS 07/29/19 07/29/19 History (formulary)] Ipratropium-Albuterol Nebulize 3 ml INHALATION RT-Q4H PRN 07/29/19 07/29/19 History [Duoneb 0.5 mg-3 mg/3 ml Soln] Potassium Chloride ER [K-Dur 20] 20 meq PO BID 07/29/19 07/29/19 History Torsemide [Demadex] 100 mg PO DAILY 07/29/19 07/29/19 History Zolpidem [Ambien] 10 mg PO HS@199907/29/19 07/29/19 History predniSONE See Taper PO DAILY 07/29/19 07/29/19 History Allergies Allergy/AdvReac Type Severity Reaction Status Date / Time latex Allergy Rash/Hives Verified 07/29/19 08:10 penicillin G Allergy Rash/Hives Verified 07/29/19 08:10 Physical Exam Vitals: Vital Signs Temp Pulse Pulse Resp BP Pulse Ox 07/29/19 12:00 101 H 18 97/61 99 07/29/19 11:49 99.0 F 97 18 98 07/29/19 11:00 105 H 18 97/58 99 07/29/19 10:30 96 18 90/58 97 07/29/19 10:00 102 H 18 82/52 96 07/29/19 09:30 104 H 16 79/53 07/29/19 09:00 105 H 16 81/56 95 07/29/19 08:30 100 16 95/59 94 L 07/29/19 08:00 100.3 F H 113 H 16 105/68 95 07/29/19 07:30 114 H 16 76/55 96 07/29/19 07:20 115 H 16 90/61 96 07/29/19 06:05 100.4 F H 114 H 19 114/69 100 07/29/19 05:32 118 H 19 117/67 97 07/29/19 04:50 98.5 F 131 H 20 137/83 95 07/29/19 04:45 128 H 20 07/29/19 04:34 98.8 F 131 H 23 137/83 96 Intake and Output 07/28/19 07/29/19 07/29/19 22:59 06:59 14:59 Intake Total 20 Balance 20 Intake: IV 20 Invasive Line 1 20 Other: Weight 97.296 kg GENERAL DESCRIPTION: An elderly male lying in bed, no distress. No tachypnea or accessory muscle of respiration use. HEENT: Shows Pallor , no scleral icterus. Oral mucous membrane is dry. No pharyngeal erythema or thrush NECK: Trachea central, no thyromegaly. LUNGS: Unlabored breathing. Decreased breaths in the bases. No wheeze or crackle. HEART: S1, S2, regular rate and rhythm. No loud murmur ABDOMEN: Soft, no tenderness , guarding or rigidity, no organomegaly EXTREMITIES: No edema of feet. SKIN: No rash, no masses palpable. NEUROLOGICAL: The patient is awake, alert, oriented x3, mood and affect normal. Results CBC & Chem 7: 07/29/19 05:00 07/29/19 04:52 Labs: Abnormal Lab Results - Last 24 Hours (Table) 07/29/19 07/29/19 07/29/19 Range/Units 04:52 04:52 05:00 RBC 4.16 L (4.30-5.90) m/uL RDW 15.6 H (11.5-15.5) % Plt Count 88 L (150-450) k/uL Lymphocytes # (Manual) 0.32 L (1.0-4.8) k/uL APTT (22.0-30.0) sec Glucose 225 H (74-99) mg/dL Plasma Lactic Acid Nestor 3.2 H* (0.7-2.0) mmol/L ALT 70 H (4-49) U/L Troponin I (0.000-0.034) ng/mL Total Protein 5.9 L (6.3-8.2) g/dL Albumin 3.1 L (3.5-5.0) g/dL Urine Protein (Negative) Urine Glucose (UA) (Negative) Urine Blood (Negative) Urine RBC (0-5) /hpf Urine Mucus (None) /hpf 07/29/19 07/29/19 07/29/19 Range/Units 05:00 05:00 05:00 RBC (4.30-5.90) m/uL RDW (11.5-15.5) % Plt Count (150-450) k/uL Lymphocytes # (Manual) (1.0-4.8) k/uL APTT 21.6 L (22.0-30.0) sec Glucose (74-99) mg/dL Plasma Lactic Acid Nestor (0.7-2.0) mmol/L ALT (4-49) U/L Troponin I 0.068 H* (0.000-0.034) ng/mL Total Protein (6.3-8.2) g/dL Albumin (3.5-5.0) g/dL Urine Protein 1+ H (Negative) Urine Glucose (UA) 1+ H (Negative) Urine Blood Moderate H (Negative) Urine RBC 145 H (0-5) /hpf Urine Mucus Rare H (None) /hpf Assessment and Plan Assessment: 1 patient presented to hospital with sepsis in this patient who did have a fever tachycardia and hypoxemia with evidence of left lower lobe pneumonia likely nosocomial pathogen in this patient who has recently grown multidrug resistance stenotrophomonas that was resistant to ceftazidime Levaquin and Bactrim DS- we will need to cover for this pathogen in addition to the other gram-negative that may be playing a role (1) Pneumonia Current Visit: No Status: Acute Code(s): J18.9 - PNEUMONIA, UNSPECIFIED ORGANISM SNOMED Code(s): 415514445 (2) Sepsis Current Visit: No Status: Acute Code(s): A41.9 - SEPSIS, UNSPECIFIED ORGANISM SNOMED Code(s): 49644479 Plan: 1- we will obtain sputum for Gram stain and culture 2- we will start the patient on Tygacil and cefepime 2 g every 12hr We will follow on clinical condition and cultures to further adjust medication if needed Thank you for this consultation will follow this patient with you Time with Patient: Greater than 30
[2019-07-29] MEDS ORDERED: VANCOMYCIN 1,500 MG in SODIUM CHLORIDE 0.9% 250 ML IVPB SCH (23:00)
[2019-07-30] MEDS: IPRATROPIUM-ALBUTEROL 3 ML NEB INHALATION SCH ×4 (01:38→20:42)
[2019-07-30 05:49] LABS: Glucose,Whole Blood 96 mg/dL (75-99)
[2019-07-30] MEDS ORDERED: TIGECYCLINE 50 MG in SODIUM CHLORIDE 0.9% 100 ML IVPB SCH (06:00)
[2019-07-30 06:20] LABS: Basophils % (A) 0 %; Eosinophils % (A) 1 %; HCT 37.9 % (39.0-53.0); Lymphocytes # (A) 0.2 k/uL (1.0-4.8); Lymphocytes % (A) 5 %; MCH 30.9 pg (25.0-35.0); MCHC 31.6 g/dL (31.0-37.0); Macrocytosis Slight; Mean Platelet Volume 9.1; Monocytes # (A) 0.1 k/uL (0-1.0); Monocytes % (A) 1 %; Neutrophils # (A) 4.1 k/uL (1.3-7.7); Neutrophils % (A) 92 %; RBC 3.87 m/uL (4.30-5.90); RDW 15.5 % (11.5-15.5); WBC 4.5 k/uL (3.8-10.6)
[2019-07-30 06:23] LABS: Platelet Count 75 k/uL (150-450)
[2019-07-30 06:31] LABS: Potassium 4.1 mmol/L (3.5-5.1)
[2019-07-30 06:32] LABS: African American GFR (CKD) >90 (>60 ml/min/1.73 sqM); Anion Gap 5 mmol/L; Blood Urea Nitrogen 16 mg/dL (9-20); Calcium 7.7 mg/dL (8.4-10.2); Carbon Dioxide 25 mmol/L (22-30); Chloride 109 mmol/L (98-107); Glucose 79 mg/dL (74-99); Non-African American GFR(CKD) 80 (>60 ml/min/1.73 sqM); Sodium 139 mmol/L (137-145)
[2019-07-30] MEDS: INSULIN ASPART (NovoLOG) 100 UNIT/ML VIAL SQ SCH ×4 (06:39→21:54)
[2019-07-30] MEDS: PANTOPRAZOLE 40 MG TABLET PO SCH (06:39)
[2019-07-30] MEDS: INSULIN DETEMIR (LEVEMIR) 100 UNIT/ML SYR SQ SCH ×2 (07:05→21:54)
--- NOTE | 2019-07-30 08:17 | XR ---
EXAMINATION TYPE: XR chest 2V DATE OF EXAM: 07/30/2019 HISTORY: pneumonia. REFERENCE: Previous study dated 07/29/2019. FINDINGS: The heart is enlarged. There is mild vascular redistribution. There is bibasilar airspace d isease. There is subtle interstitial change. There are small, bilateral effusions. IMPRESSION: 1. BIBASILAR AIRSPACE DISEASE EITHER REPRESENTING ATELECTASIS, CONFLUENT EDEMA OR PNEUMONIA. 2. MILD FINDINGS OF CONGESTIVE HEART FAILURE. 3. SMALL, BILATERAL EFFUSIONS.
[2019-07-30] MEDS ORDERED: TORSEMIDE 20 MG TAB PO SCH (09:00)
[2019-07-30] MEDS ORDERED: FUROSEMIDE 40 MG TAB PO SCH (09:00)
[2019-07-30] MEDS: FORMOTEROL FUMARATE 20 MCG/2 ML NEBU INHALATION SCH ×2 (09:10→20:42)
[2019-07-30] MEDS: BUDESONIDE 1 MG/2 ML NEBU INHALATION SCH ×2 (09:10→20:42)
[2019-07-30] MEDS: CEFEPIME 2 GM in SODIUM CHLORIDE 0.9% 100 ML IVPB SCH ×2 (09:33→21:53)
[2019-07-30] MEDS: GABAPENTIN 300 MG CAP PO SCH ×3 (09:34→21:54)
[2019-07-30] MEDS: LORATADINE 10 MG TAB PO SCH (09:34)
[2019-07-30] MEDS: predniSONE 10 MG TAB PO SCH (09:35)
[2019-07-30] MEDS: POTASSIUM CHLORIDE ER 20 MEQ TAB.ER PO SCH ×2 (09:35→21:55)
[2019-07-30] MEDS: guaiFENesin-DM 100-10MG/5ML 10 ML CUP PO SCH ×2 (09:35→21:55)
[2019-07-30] MEDS: METOPROLOL TARTRATE 50 MG TAB PO SCH (10:38)
[2019-07-30] MEDS: FUROSEMIDE 10 MG/ML 4 ML VIAL IV SCH ×2 (10:38→21:54)
[2019-07-30] MEDS: SODIUM CHLORIDE 0.9% 1,000 ML IV SCH (10:39)
[2019-07-30 12:25] LABS: Glucose,Whole Blood 167 mg/dL (75-99)
--- NOTE | 2019-07-30 13:16 | P.CRDCN ---
History of Present Illness History of present illness: HISTORY OF PRESENTING ILLNESS This is a pleasant 84-year-old male past medical history significant for hypertension, dyslipidemia, diabetes mellitus, esophageal cancer, Cardoso's esophagus and peripheral vascular disease. He denies prior history of coronary artery disease. We have been asked to see in consultation for elevated troponin and shortness of breath. He presented to the emergency department from [facility] secondary to confusion cough and shortness of breath. He was recently treated for pneumonia. He is seen and examined sitting up in bed in no acute distress. He continues to be confused. He is coughing but not bringing up significant sputum. He denies chest pain, dizziness or palpitations. DIAGNOSTICS EKG reveals sinus tachycardia with PACs and nonspecific changes inferiorly. Chest xray on admission reveals left lower lobe pneumonia and mild infiltrate at the right base. Repeat today reveals bibasilar airspace disease, mild congestive heart failure and small bilateral effusions. Laboratory reviewed, WBC 4.5, hemoglobin 12, platelets 75, sodium 139, potassium 4.1, creatinine 0.88,, troponin 0.068 and 0.08, NT proBNP 354 and Propulsid 20 0.83. Current cardiac medications include aspirin 81 mg daily, Lasix 40 mg daily, pravastatin 80 mg daily and Demadex 100 mg daily. Most recent echocardiogram obtained in 2018 reveals preserved LV systolic functi on with ejection fraction 55-60%, mild aortic stenosis with a mean gradient of 10 mmHg, mild MR and mild TR REVIEW OF SYSTEMS At the time of my exam, unable to assess accurate review of systems secondary to confusion. PHYSICAL EXAMINATION Blood pressure 130/66 heart rate 104 afebrile and maintaining oxygen saturation on nasal cannula. CONSTITUTIONAL: No apparent distress. HEENT: Head is normocephalic. Pupils are equal, round. Sclerae anicteric. Mucous membranes of the mouth are moist. No JVD. No carotid bruit. CHEST EXAMINATION: Lungs are clear to auscultation. No chest wall tenderness is noted on palpation or with deep breathing. HEART EXAMINATION: Regular rate and rhythm. S1, S2 heard. Systolic ejection murmur at the base and left sternal border, no gallops or rub. ABDOMEN: Soft, nontender. Positive bowel sounds. EXTREMITIES: 2+ peripheral pulses, significant bilateral lower extremity 2-3+ pitting edema and no calf tenderness. NEUROLOGIC EXAMINATION: Patient is awake, alert. ASSESSMENT Acute diastolic heart failure Abnormal troponin secondary to sepsis Pneumonia Sepsis Lactic acidosis Diabetes mellitus Hypertension Dyslipidemia History of esophageal cancer status post chemotherapy and radiation PLAN Initiate IV Lasix 40 mg twice a day for significant lower extremity edema along with Lopressor 50 mg daily. Obtain 2-D echocardiogram and Doppler study to assess cardiac structure and function. Further recommendations to follow based upon clinical course. Thank you kindly for this consultation. Nurse Practitioner note has been reviewed, I agree with a documented findings and plan of care. Patient was seen and examined. Past Medical History Past Medical History: Cancer, Diabetes Mellitus, GERD/Reflux, Hearing Disorder / Deafness, Hyperlipidemia, Hypertension, Memory Impairment, Musculoskeletal Disorder, Osteoarthritis (OA), Pneumonia, Renal Disease Additional Past Medical History / Comment(s): Fractures L2-L4 w/ paulina leg pain, epidural injections. DDD, Gout, CARDOSO'S esophagus, Esophageal CA-completed 28 radiation tx on 09/08/17, & 5 chemo tx 09/02/17. 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 "Some memory impairment RT to pain Rx." History of Any Multi-Drug Resistant Organisms: None Reported Past Surgical History: Appendectomy, Back Surgery, Orthopedic Surgery Additional Past Surgical History / Comment(s): Bilateral rotator cuff surgery, left foot surgery, thinks he has plate and screws, "esophagus radiofrequency ablation", paulina cataracts-lens implants, kyphoplasty. Pain procedures. epidural steroid injection in back Past Anesthesia/Blood Transfusion Reactions: No Reported Reaction Additional Past Anesthesia/Blood Transfusion Reaction / Comment(s): . Past Psychological History: No Psychological Hx Reported Smoking Status: Never smoker Past Alcohol Use History: Daily Past Drug Use History: None Reported - Past Family History Mother Family Medical History: Cancer Additional Family Medical History / Comment(s): kidney, Thyroid Father Family Medical History: Coronary Artery Disease (CAD) Additional Family Medical History / Comment(s): AT AGE 53. Medications and Allergies Home Medications Medication Instructions Recorded Confirmed Type Cetirizine HCl 10 mg PO DAILY 07/05/15 07/29/19 History Nitroglycerin Sl Tabs [Nitrostat] 0.4 mg SUBLINGUAL Q5M PRN 07/05/15 07/29/19 History Pravastatin Sodium [Pravachol] 80 mg PO HS@199909/01/17 07/29/19 History Aspirin EC [Ecotrin Low Dose] 81 mg PO HS 12/24/17 07/29/19 History Allopurinol [Zyloprim] 300 mg PO DAILY 01/26/18 07/29/19 History Ipratropium-Albuterol Nebulize 3 ml INHALATION RT-Q6H 04/22/19 07/29/19 History [Duoneb 0.5 mg-3 mg/3 ml Soln] Insulin Glargine,Hum.rec.anlog 12 unit SQ BID 07/12/19 07/29/19 History [Lantus Solostar] Fluticasone Nasal [place] [Flonase 2 spray EA NOSTRIL HS@199907/14/19 07/29/19 History Nasal [place]] Acetaminophen Tab [Tylenol] 500 mg PO Q6HR PRN tab 07/25/19 07/29/19 Rx Bisacodyl [Dulcolax] 10 mg PO DAILY PRN tablet. 07/25/19 07/29/19 Rx Budesonide [Pulmicort] 1 mg INHALATION RT-BID ml 07/25/19 07/29/19 Rx Formoterol Fumarate [Perforomist] 20 mcg INHALATION RT-BID nebu 07/25/19 07/29/19 Rx Furosemide [Lasix] 40 mg PO DAILY tab 07/25/19 07/29/19 Rx Gabapentin [Neurontin] 1,200 mg PO HS@2200 #1 cap 07/25/19 07/29/19 Rx Pantoprazole [Protonix] 40 mg PO AC-BRKFST tablet. 07/25/19 07/29/19 Rx guaiFENesin-DM 100-10MG/5ML 5 ml PO BID ml 07/25/19 07/29/19 Rx [Robitussin DM] Bisacodyl 10 mg PO DAILY PRN 07/29/19 07/29/19 History Fluconazole [Diflucan] 100 mg PO HS@199907/29/19 07/29/19 History Gabapentin [Neurontin] 600 mg PO BID 07/29/19 07/29/19 History INSULIN ASPART (NovoLOG) [NovoLOG See Protocol SQ ACHS 07/29/19 07/29/19 History (formulary)] Ipratropium-Albuterol Nebulize 3 ml INHALATION RT-Q4H PRN 07/29/19 07/29/19 History [Duoneb 0.5 mg-3 mg/3 ml Soln] Potassium Chloride ER [K-Dur 20] 20 meq PO BID 07/29/19 07/29/19 History Torsemide [Demadex] 100 mg PO DAILY 07/29/19 07/29/19 History Zolpidem [Ambien] 10 mg PO HS@199907/29/19 07/29/19 History predniSONE See Taper PO DAILY 07/29/19 07/29/19 History Allergies Allergy/AdvReac Type Severity Reaction Status Date / Time latex Allergy Rash/Hives Verified 07/29/19 08:10 penicillin G Allergy Rash/Hives Verified 07/29/19 08:10 Physical Exam Vitals: Vital Signs Temp Pulse Pulse Pulse Resp BP BP 07/30/19 09:25 104 H 07/30/19 09:22 100 07/30/19 09:15 98.9 F 107 H 107 H 24 130/66 07/30/19 09:12 99 07/30/19 04:00 98.3 F 88 22 123/67 07/30/19 01:51 104 H 07/30/19 01:38 104 H 07/30/19 00:00 99.1 F 102 H 20 114/65 07/29/19 21:39 105 H 07/29/19 21:32 104 H 07/29/19 21:19 105 H 07/29/19 20:00 100.4 F H 104 H 20 120/61 07/29/19 16:45 98.2 F 104 H 18 128/73 07/29/19 16:00 90 18 123/72 07/29/19 15:00 94 18 119/67 07/29/19 14:00 96 18 125/76 Pulse Ox 07/30/19 09:25 07/30/19 09:22 07/30/19 09:15 100 07/30/19 09:12 07/30/19 04:00 98 07/30/19 01:51 07/30/19 01:38 07/30/19 00:00 95 07/29/19 21:39 07/29/19 21:32 07/29/19 21:19 97 07/29/19 20:00 94 L 07/29/19 16:45 92 L 07/29/19 16:00 98 07/29/19 15:00 99 07/29/19 14:00 99 Intake and Output 07/29/19 07/30/19 07/30/19 22:59 06:59 14:59 Intake Total 640 852 380 Output Total 268 616 7159 Balance -10 352 -5089 Intake: IV 40 40 20 Invasive Line 1 40 40 20 Intake, IV Titration 575 Amount Cefepime 2 gm In Sodium 100 Chloride 0.9% 100 ml @ 200 mls/hr IVPB Q12HR [facility] Rx#:[id number] Sodium Chloride 0.9% 1, 375 000 ml @ 75 mls/hr IV . [id number] [facility] Rx#:[id number] Tigecycline 50 mg In 100 Sodium Chloride 0.9% 100 ml @ 100 mls/hr IVPB Q12H [facility] Rx#:[id number] Oral 600 237 360 Output: Urine [phone] Other: Voiding Method Indwelling Catheter Indwelling Catheter Indwelling Catheter Weight 97.296 kg 97.296 kg Results 07/30/19 05:34 07/30/19 05:34 Cardiac Enzymes 07/30/19 Range/Units 10:26 Troponin I 0.080 H* (0.000-0.034) ng/mL CBC 07/30/19 Range/Units 05:34 WBC 4.5 (3.8-10.6) k/uL RBC 3.87 L (4.30-5.90) m/uL Hgb 12.0 L (13.0-17.5) gm/dL Hct 37.9 L (39.0-53.0) % Plt Count 75 L (150-450) k/uL Comprehensive Metabolic Panel 07/30/19 Range/Units 05:34 Sodium 139 (137-145) mmol/L Potassium 4.1 (3.5-5.1) mmol/L Chloride 109 H (98-107) mmol/L Carbon Dioxide 25 (22-30) mmol/L BUN 16 (9-20) mg/dL Creatinine 0.88 (0.66-1.25) mg/dL Glucose 79 (74-99) mg/dL Calcium 7.7 L (8.4-10.2) mg/dL Current Medications Generic Name Dose Route Start Last Admin Trade Name Freq PRN Reason Stop Dose Admin Acetaminophen 650 mg 07/29/19 21:31 07/29/19 21:49 Tylenol Tab PO 650 mg Q4HR PRN Administration Fever and/ or Pain Albuterol/Ipratropium 3 ml 07/29/19 20:00 07/30/19 09:10 Duoneb 0.5 Mg-3 Mg/3 Ml Soln INHALATION 3 ml RT-Q6H MELVA Administration Albuterol/Ipratropium 3 ml 07/29/19 15:00 Duoneb 0.5 Mg-3 Mg/3 Ml Soln INHALATION RT-Q4H PRN Shortness Of Breath Or Wheezing Bisacodyl 10 mg 07/29/19 18:23 Dulcolax PO DAILY PRN Constipation Budesonide 1 mg 07/29/19 20:00 07/30/19 09:10 Pulmicort INHALATION 1 mg RT-BID MELVA Administration Fluconazole 100 mg 07/29/19 20:00 07/29/19 20:34 Diflucan PO 08/04/19 20:01 100 mg HS@2000 [facility] Administration Fluticasone Propionate 2 spray 07/29/19 20:00 07/29/19 20:34 Flonase Nasal [place] EA NOSTRIL 2 spray HS@2000 [facility] Administration Formoterol Fumarate 20 mcg 07/29/19 20:00 07/30/19 09:10 Perforomist INHALATION 20 mcg RT-BID [facility]VA Administration Furosemide 40 mg 07/30/19 10:30 07/30/19 10:38 Lasix IV 40 mg Q12HR [facility] Administration Gabapentin 600 mg 07/30/19 09:00 07/30/19 09:34 Neurontin PO 600 mg BID@0900,1600 [facility] Administration Gabapentin 1,200 mg 07/29/19 22:00 07/29/19 21:43 Neurontin PO 1,200 mg HS@2200 [facility] Administration Guaifenesin/Dextromethorphan 5 ml 07/29/19 21:00 07/30/19 09:35 Robitussin Dm PO 5 ml BID [facility] Administration Sodium Chloride 1,000 mls @ 75 mls/hr 07/29/19 08:15 07/30/19 10:39 Saline 0.9% IV 75 mls/hr .[id number] [facility]VA Administration Tigecycline 50 mg/ Sodium 100 mls @ 100 mls/hr 07/30/19 06:00 07/30/19 06:38 Chloride IVPB 100 mls/hr Q12H [facility] Administration Cefepime HCl 2 gm/ Sodium 100 mls @ 200 mls/hr 07/29/19 21:00 07/30/19 09:33 Chloride IVPB 200 mls/hr Q12HR [facility] Administration Vancomycin HCl 1,500 mg/ 250 mls @ 125 mls/hr 07/30/19 16:00 Sodium Chloride IVPB Q16H [facility] Insulin Aspart 0 unit 07/29/19 21:00 07/30/19 12:50 Novolog SQ 2 unit ACHS [facility] Administration Protocol Insulin Detemir 12 unit 07/29/19 21:00 07/30/19 07:05 Levemir SQ 12 unit BID@0700,2100 [facility] Administration Loratadine 10 mg 07/30/19 09:00 07/30/19 09:34 Claritin PO 10 mg DAILY [facility] Administration Metoprolol Tartrate 50 mg 07/30/19 10:30 07/30/19 10:38 Lopressor PO 50 mg DAILY [facility] Administration Miscellaneous Information 1 each 07/29/19 06:38 Pneumonia Protocol Utilized PO ONCE PRN Per Protocol Nitroglycerin 0.4 mg 07/29/19 18:23 Nitrostat SUBLINGUAL Q5M PRN Chest Pain Pantoprazole Sodium 40 mg 07/29/19 15:00 07/30/19 06:39 Protonix PO 40 mg AC-BRKFST [facility] Administration Potassium Chloride 20 meq 07/29/19 21:00 07/30/19 09:35 K-Dur 20 PO 20 meq BID [facility] Administration Pravastatin Sodium 80 mg 07/29/19 20:00 07/29/19 20:34 Pravachol PO 80 mg HS@1999 [facility] Administration Prednisone 10 mg 07/30/19 09:00 07/30/19 09:35 PO 10 mg DAILY [facility] Administration Zolpidem Tartrate 10 mg 07/29/19 20:00 07/29/19 21:41 Ambien PO 10 mg HS@1999 [facility] Administration Intake and Output 07/29/19 07/30/19 07/30/19 22:59 06:59 14:59 Intake Total 640 852 380 Output Total 613 292 9777 Balance -10 352 -7867 Intake: IV 40 40 20 Invasive Line 1 40 40 20 Intake, IV Titration 575 Amount Cefepime 2 gm In Sodium 100 Chloride 0.9% 100 ml @ 200 mls/hr IVPB Q12HR [facility] Rx#:[id number] Sodium Chloride 0.9% 1, 375 000 ml @ 75 mls/hr IV . [id number] [facility] Rx#:[id number] Tigecycline 50 mg In 100 Sodium Chloride 0.9% 100 ml @ 100 mls/hr IVPB Q12H [facility] Rx#:[id number] Oral 600 237 360 Output: Urine [phone] Other: Voiding Method Indwelling Catheter Indwelling Catheter Indwelling Catheter Weight 97.296 kg 97.296 kg Patient Weight 07/31/19 06:59 Weight 97.296 kg 07/30/19 05:34 07/30/19 05:34
--- NOTE | 2019-07-30 13:27 | P.PN ---
Subjective Progress Note Date: 07/30/19 Principal diagnosis: Stenotrophomonas pneumonia 89-year-old white male patient of Dr. Dozier, with past medical history of hypertension, hyperlipidemia, diabetes, GERD, chronic cough, recurrent pulmonary infections requiring bronchoalveolar lavage with peripheral cultures positive for stenotrophomonas maltophilia resistant to Levaquin, ceftazidime, and Bactrim. Patient also had an episode of ARDS in 2019, gout, esophageal cancer with 28 previous radiation treatments and chemotherapy completed in August 2017. Patient was recently hospitalized for tracheobronchitis, with sputum cultures positive for Stenotrophomonas maltophilia. Per ID service and no antibiotics were recommended. Patient was discharged to the [facility] in stable medical condition. Apparently early this morning on 07/29/2019 staff at the [facility] found the patient short of breath, coughing, congested and confused. He was bringing up large amount of phlegm is quite thick and brown in color. Emergency department chest x-ray showed small amount of airspace opacities and bilateral lower lungs, there was felt to be related to atelectasis, hypoventilation rather than pneumonia. I am work showed white blood count of 4.0, hemoglobin of 13.3, platelet count of 88, INR was 0.9, electrolytes were within normal limits, BUN was 15 creatinine 0.74. ProBNP was 354, troponin was 0.068, urinalysis showed moderate amount of blood, but no evidence of infection, influenza screen was negative. Patient was febrile with a temp of 100.4F. Started on Zithromax and Rocephin, was given a dose of tigecycline. He is currently resting comfortably on the stretcher in the emergency department, in no acute distress, pulse ox is 99% on 2 L, vital signs are stable, low-grade fever 99.0F, in sinus mechanism with a controlled rate. No complaints of chest pain, his mentation is improving, he is answering questions appropriately. The patient is seen today 07/30/2019 in follow-up on the selective care unit. He is resting in bed. Awake and alert in no acute distress. Maintaining an O2 saturations up to 100% on 2 L/m per nasal cannula. He is afebrile. Preliminary blood cultures revealing Staphylococcus aureus. Preliminary sputum cultures reading presumptive staph aureus. The C4 0.5. Hemoglobin 12.0. Creatinine 0.88. Currently on DuoNeb inhalations Pulmicort and Perforomist inhalations antibiotics in the form of cefepime, vancomycin and tigecycline. Previous cultures were positive for stenotrophomonas maltophilia. Chest x-ray continues with bibasilar airspace disease, mild findings and congestive heart failure small pleural effusions. Objective - Vital Signs Vital signs: Vital Signs Temp 98.9 F 07/30/19 09:15 Pulse 104 H 07/30/19 09:25 Resp 24 07/30/19 09:15 BP 130/66 07/30/19 09:15 Pulse Ox 100 07/30/19 09:15 Intake & Output 07/29/19 07/30/19 07/30/19 18:59 06:59 18:59 Intake Total 260 1232 380 Output Total 066 164 3332 Balance -390 732 -1945 Weight 97.296 kg 97.296 kg Intake: IV 20 60 20 Invasive Line 1 20 60 20 Intake, IV Titration 575 Amount Cefepime 2 gm In Sodium 100 Chloride 0.9% 100 ml @ 200 mls/hr IVPB Q12HR [facility] Rx#:[id number] Sodium Chloride 0.9% 1, 375 000 ml @ 75 mls/hr IV . [id number] [facility] Rx#:[id number] Tigecycline 50 mg In 100 Sodium Chloride 0.9% 100 ml @ 100 mls/hr IVPB Q12H [facility] Rx#:[id number] Oral 240 597 360 Output: Urine 306 774 1594 Other: Voiding Method Indwelling Catheter Indwelling Catheter Indwelling Catheter - Exam GENERAL EXAM: Alert, very pleasant 84-year-old male patient, 2 L of oxygen with pulse ox of 100%, in no acute distress, patient has the Cushingoid features with valencia facies and redness involving his face, comfortable in no apparent distress. HEAD: Normocephalic/atraumatic. EYES: Normal reaction of pupils, equal size. Conjunctiva pink, sclera white. NOSE: Clear with pink turbinates. THROAT: No erythema or exudates. NECK: No masses, no JVD, no thyroid enlargement, no adenopathy. CHEST: No chest wall deformity. Symmetrical expansion. LUNGS: Equal air entry with bilateral scattered rhonchi. CVS: Regular rate and rhythm, normal S1 and S2, no gallops, no murmurs, no rubs ABDOMEN: Soft, nontender. No hepatosplenomegaly, normal bowel sounds, no guarding or rigidity. EXTREMITIES: No clubbing, 1+ pitting edema in bilateral lower extremities, no cyanosis, 2+ pulses and upper and lower extremities. MUSCULOSKELETAL: Muscle strength and tone normal. SPINE: No scoliosis or deformity SKIN: No rashes CENTRAL NERVOUS SYSTEM: No focal deficits, tone is normal in all 4 extremities. PSYCHIATRIC: Alert and oriented -3. Appropriate affect. Intact judgment and insight. - Labs CBC & Chem 7: 07/30/19 05:34 07/30/19 05:34 Labs: Abnormal Lab Results - Last 24 Hours (Table) 07/29/19 07/29/19 07/29/19 Range/Units 09:17 16:50 20:41 RBC (4.30-5.90) m/uL Hgb (13.0-17.5) gm/dL Hct (39.0-53.0) % Plt Count (150-450) k/uL Lymphocytes # (1.0-4.8) k/uL Chloride (98-107) mmol/L POC Glucose (mg/dL) 347 H 260 H (75-99) mg/dL Calcium (8.4-10.2) mg/dL Troponin I (0.000-0.034) ng/mL Procalcitonin 0.83 H (0.02-0.09) ng/mL 07/30/19 07/30/19 07/30/19 Range/Units 05:34 05:34 10:26 RBC 3.87 L (4.30-5.90) m/uL Hgb 12.0 L (13.0-17.5) gm/dL Hct 37.9 L (39.0-53.0) % Plt Count 75 L (150-450) k/uL Lymphocytes # 0.2 L (1.0-4.8) k/uL Chloride 109 H (98-107) mmol/L POC Glucose (mg/dL) (75-99) mg/dL Calcium 7.7 L (8.4-10.2) mg/dL Troponin I 0.080 H* (0.000-0.034) ng/mL Procalcitonin (0.02-0.09) ng/mL 02/15/20 Range/Units 12:16 RBC (4.30-5.90) m/uL Hgb (13.0-17.5) gm/dL Hct (39.0-53.0) % Plt Count (150-450) k/uL Lymphocytes # (1.0-4.8) k/uL Chloride (98-107) mmol/L POC Glucose (mg/dL) 167 H (75-99) mg/dL Calcium (8.4-10.2) mg/dL Troponin I (0.000-0.034) ng/mL Procalcitonin (0.02-0.09) ng/mL Microbiology - Last 24 Hours (Table) 07/29/19 15:23 Gram Stain - Preliminary Sputum Sputum Culture - Preliminary Presumptive Staph aureus 07/29/19 05:13 Blood Culture Gram Stain - Preliminary Blood Blood Culture - Preliminary Staphylococcus aureus 07/29/19 05:13 Blood Culture - Final Blood Assessment and Plan Assessment: #1. Acute on chronic dyspnea, chest x-ray showed atelectasis possibility of left lower lobe pneumonia, and right base pneumonia is not excluded. Sputum culture positive for presumptive staph aureus with blood cultures positive for staph aureus final ID pending. Currently on cefepime, tigecycline, vancomycin #2. Recent hospitalization for tracheobronchitis with sputum culture positive for trichomonas maltophilia multidrug resistant, including Levaquin, ceftazidime, and Bactrim #3. Altered mentation at the [facility] at the time of symptom onset with coughing, confusion, and chest congestion, improved #4. Plasma lactic acidosis, possibly related to sepsis, improved with hydration #5. Elevated troponins, possibly related to sepsis #6. 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 History of esophageal cancer status post resection and subsequent radiofrequency ablation at [facility] ([facility] in November 2012 with recurrence and chemoradiation in 2018 completed 09/02/2017 #8. Obesity #9. Hypertension #10. Hyperlipidemia #11. Gout #12. Lifelong nonsmoker with normal pulmonary function testing #13. History of chronic kidney disease #14. History of left carotid occlusion Plan: The patient was seen and evaluated by Dr. Akhtar. Chest x-ray and labs reviewed. ID is on the case and the patient is currently on cefepime, tigecycline and vancomycin along with bronchodilators and prednisone. We will continue with current treatment plan. Increase his activity as tolerated. We'll continue to follow. I, the cosigning physician, performed a history & physical examination of the patient. Lungs sounds with bilateral scattered rhonchi. Maintaining good O2 saturations in the 90s on 2 L/m per nasal cannula. I discussed the assessment and plan of care with my nurse practitioner, Heather Lara. I attest to the above note as dictated by her.
[2019-07-30] MEDS: ACETAMINOPHEN TAB 325 MG TAB PO PRN (13:59)
--- NOTE | 2019-07-30 15:01 | ECHOF ---
Referral Reason:chf MEASUREMENTS -------- HEIGHT: 170.2 cm WEIGHT: 97.1 kg BP: 123/67 IVSd: 1.4 cm (0.6 - 1.1) LVIDd: 4.9 cm (3.9 - 5.3) LVPWd: 1.4 cm (0.6 - 1.1) IVSs: 1.6 cm LVIDs: 3.9 cm LVPWs: 1.6 cm LA Diam: 3.9 cm (2.7 - 3.8) MV EXCURSION: 25.076 mm (> 18.000) MV EF SLOPE: 81 mm/s (70 - 150) EPSS: 0.7 cm MV E Pietro: 0.56 m/s MV DecT: 209 ms MV A Pietro: 1.02 m/s MV E/A Ratio: 0.55 AV maxP.82 mmHg AV meanP.78 mmHg RAP: 5.00 mmHg RVSP: 19.26 mmHg FINDINGS -------- Sinus rhythm. This was a techncally difficult study with suboptimal views, , Lumason utilized for enhancement of im ages. The left ventricular size is normal. There is moderate concentric left ventricular hypertrophy. O verall left ventricular systolic function is normal with, an EF between 55 - 60 %. The right ventricle is normal in size. The left atrial size is normal. The right atrial size is normal. 5.0mg OF Lumason UTLIZED: 2 OR MORE WALL SEGMENTS NOT VISUALIZED. The aortic valve was not well visualized. There is mild aortic regurgitation. There is moderate a ortic stenosis present. Peak/mean gradient across the Aortic Valve is 41.82mmHg / 24.78mmHg. Mild mitral annular calcification present. Mild mitral regurgitation is present. Mild tricuspid regurgitation present. Right ventricular systolic pressure is normal at < 35 mmHg. There is no evidence of pulmonary hypertension. There is no pulmonic regurgitation present. The aortic root size is normal. There is a trivial pericardial effusion present. CONCLUSIONS -------- 1. Sinus rhythm. 2. This was a techncally difficult study with suboptimal views, , Lumason utilized for enhancement of images. 3. The left ventricular size is normal. 4. There is moderate concentric left ventricular hypertrophy. 5. Overall left ventricular systolic function is normal with, an EF between 55 - 60 %. 6. The right ventricle is normal in size. 7. The left atrial size is normal. 8. The right atrial size is normal. 9. 5.0mg OF Lumason UTLIZED: 2 OR MORE WALL SEGMENTS NOT VISUALIZED. 10. The aortic valve was not well visualized. 11. There is mild aortic regurgitation. 12. There is moderate aortic stenosis present. 13. Peak/mean gradient across the Aortic Valve is 41.82mmHg / 24.78mmHg. 14. Mild mitral annular calcification present. 15. Mild mitral regurgitation is present. 16. Mild tricuspid regurgitation present. 17. Right ventricular systolic pressure is normal at < 35 mmHg. 18. There is no evidence of pulmonary hypertension. 19. There is no pulmonic regurgitation present. 20. The aortic root size is normal. 21. There is a trivial pericardial effusion present. MOTOR BUS DRIVER: Raegan Huizar RDCS
[2019-07-30] MEDS: VANCOMYCIN 1,500 MG in SODIUM CHLORIDE 0.9% 250 ML IVPB SCH (15:38)
[2019-07-30 16:35] LABS: Glucose,Whole Blood 226 mg/dL (75-99)
--- NOTE | 2019-07-30 19:37 | PN ---
PROGRESS NOTE DATE OF SERVICE: 07/30/2019 This 84-year-old gentleman who was admitted with shortness of breath and hypertension and pneumonia is being closely monitored at this time. The patient had Stenotrophomonas maltophilia which is resistant to multiple organisms previously. The final ID is pending at this time. The most recent cultures also showing Staph aureus from the blood and as well as presumptive Staph aureus from the sputum also. PAST MEDICAL HISTORY: Reviewed. REVIEW OF SYSTEMS: CARDIOVASCULAR SYSTEM: No angina. RESPIRATORY: As mentioned earlier. GI: As mentioned earlier. : No dysuria. NERVOUS SYSTEM: No numbness or weakness. CURRENT MEDICATIONS: 1. Tylenol p.r.n. 2. DuoNeb q.i.d. and p.r.n. 3. Dulcolax 10 mg. 4. Pulmicort 1 mg b.i.d. 5. Cefepime 2 grams IV b.i.d. 6. Diflucan 100 mg q.h.s. 7. Flonase. 8. Perforomist 20 mcg b.i.d. 9. Lasix 40 mg b.i.d. 10.Neurontin. 11.Robitussin. 12.Levemir 12 units subcu b.i.d. 13.Claritin. 14.Lopressor. 15.Nitrostat. 16.Protonix. 17.Pravachol. 18.Prednisone. 19.Vancomycin. PHYSICAL EXAM: Patient is alert and oriented x2. Pulse is 111, blood pressure 140/80, respiration 22, temperature 98 degrees, pulse ox 97% on 2 L. HEENT: Conjunctivae normal. Oral mucosa moist. NECK: No jugular venous distention. No lymph node enlargement. CARDIOVASCULAR: S1, S2. RESPIRATORY: Diminished breath sounds at the bases. A few scattered rhonchi and crackles. ABDOMEN: Soft, nontender. No mass palpable. LEGS: No edema, no swelling. NERVOUS SYSTEM: No focal deficits. LABS: WBC 4.0, hemoglobin 12, platelets 75. Troponin 0.080. Calcium is 7.7. ASSESSMENT: 1. Acute bilateral pneumonia, possibly gram-negative, possibly hospital acquired with failure of outpatient treatment with acute sepsis, severe sepsis, hypotension, septic shock, present on admission. 2. Staphylococcus aureus grown from the blood and sputum. 3. Tachycardia, present on admission. 4. History of recent pneumonia, interstitial lung disease of undetermined etiology with some bronchiectasis in the lower lobes. 5. Diabetes mellitus type 2. 6. Troponin 0.06, indeterminate. 7. Change in mental status, metabolic encephalopathy, multifactorial. 8. Gastroesophageal reflux disease. 9. Hearing disorder, hard of hearing. 10.Hypertension. 11.Hyperlipidemia. 12.History of memory impairment. 13.History of degenerative joint disease. 14.History of pneumonia. 15.History of renal disease. 16.Fractured L2-4 with bilateral leg pain. 17.History of gout. 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 19.Esophageal carcinoma status post radiation and chemo. 20.History of hiatal hernia. 21.History of pneumonia. 22.History of peripheral neuropathy. 23.History of stomach ulcer. 24.History of carotid stenosis. 25.History of shingles. 26.History of appendectomy. 27.History of back surgery. 28.History of bilateral rotator cuff surgery. 29.Obesity with body mass index 33.1. RECOMMENDATIONS AND DISCUSSION: Recommend to continue current medications, continue to monitor, continue symptomatic treatment. Continue with bronchodilators, continue with empiric antibiotics including vancomycin and also cefepime and tigecycline. Closely follow with Dr. Nur. Guarded prognosis. Further recommendations to follow. MMODL / IJN: [id number] /
[2019-07-30 20:44] LABS: Glucose,Whole Blood 314 mg/dL (75-99)
[2019-07-30] MEDS: FLUCONAZOLE 100 MG TAB PO SCH (21:55)
[2019-07-30] MEDS: ZOLPIDEM 10 MG TAB PO SCH (21:55)
[2019-07-30] MEDS: PRAVASTATIN SODIUM 80 MG TAB PO SCH (21:55)
[2019-07-30] MEDS: FLUTICASONE 50MCG/SPRAY NASAL 16GM EA NOSTRIL SCH (21:56)
[2019-07-31] MEDS: IPRATROPIUM-ALBUTEROL 3 ML NEB INHALATION SCH ×4 (03:15→21:05)
--- NOTE | 2019-07-31 04:37 | PN ---
PROGRESS NOTE DATE OF SERVICE: 07/30/2019 REASON FOR FOLLOWUP: Pneumonia and bacteremia. INTERVAL HISTORY: The patient's clinical course has been complicated by development of a positive blood culture. Last the patient did have a fever of 100.4. He is afebrile since then. The patient did complain of some shortness of breath. He did have a cough, moderate intensity with occasional sputum but no hemoptysis and no pleuritic chest pain. No nausea, vomiting. No abdominal pain, no diarrhea. REVIEW OF SYSTEMS: Positive points have been mentioned in HPI. Rest of systems negative. Past medical and surgical history unchanged. Medication reviewed. PHYSICAL EXAMINATION: Blood pressure 146/80 with a pulse of 111, temperature 98. He is 97% on 2 L. General description is an elderly male lying in bed in no distress. HEENT: Examination shows no pallor or scleral icterus. Oral mucosa is dry. LUNGS: Unlabored breathing. Decreased breath sounds in the bases. No wheeze. HEART: S1, S2. Regular rate and rhythm. ABDOMEN: Soft. No guarding or rigidity. EXTREMITIES: Some trace edema of the feet. LABS: Hemoglobin is 12 with white count 4.5. BUN of 15, creatinine 0.88. Mildly elevated blood cultures with Staph aureus. Sputum showing presumptive Staph aureus as well. IMPRESSION/PLAN: Patient hospital with sepsis with evidence of left-sided pneumonia now with blood culture positive for Staph aureus. This is the same pathogen likely the source of the bacteremia. The patient's antibiotic has been adjusted to vancomycin, pharmacy to dose. Will need to monitor his kidney function closely. Blood culture will be repeated to document clearance of bacteremia. . Family at the bedside. Their questions were answered. MMODL / IJN: [id number] / KIANNA
[2019-07-31 05:40] LABS: Basophils % (A) 0 %; Eosinophils # (A) 0.1 k/uL (0-0.7); Eosinophils % (A) 1 %; HCT 36.8 % (39.0-53.0); HGB 11.7 gm/dL (13.0-17.5); Lymphocytes # (A) 0.3 k/uL (1.0-4.8); Lymphocytes % (A) 6 %; MCH 30.7 pg (25.0-35.0); MCHC 31.9 g/dL (31.0-37.0); MCV 96.3 fL (80.0-100.0); Mean Platelet Volume 9.2; Monocytes # (A) 0.1 k/uL (0-1.0); Monocytes % (A) 2 %; Neutrophils # (A) 4.2 k/uL (1.3-7.7); Neutrophils % (A) 90 %; RBC 3.83 m/uL (4.30-5.90); RDW 15.7 % (11.5-15.5); WBC 4.6 k/uL (3.8-10.6)
[2019-07-31 05:47] LABS: Platelet Count 79 k/uL (150-450)
[2019-07-31 05:51] LABS: Calcium 7.8 mg/dL (8.4-10.2); Potassium 3.7 mmol/L (3.5-5.1)
[2019-07-31 06:06] LABS: Glucose,Whole Blood 273 mg/dL (75-99)
[2019-07-31] MEDS: PANTOPRAZOLE 40 MG TABLET PO SCH (07:10)
[2019-07-31] MEDS: INSULIN ASPART (NovoLOG) 100 UNIT/ML VIAL SQ SCH ×4 (07:10→21:20)
[2019-07-31] MEDS: INSULIN DETEMIR (LEVEMIR) 100 UNIT/ML SYR SQ SCH ×2 (07:10→21:20)
[2019-07-31] MEDS: FORMOTEROL FUMARATE 20 MCG/2 ML NEBU INHALATION SCH ×2 (08:25→21:05)
[2019-07-31] MEDS: BUDESONIDE 1 MG/2 ML NEBU INHALATION SCH ×2 (08:25→21:05)
[2019-07-31] MEDS: VANCOMYCIN 1,500 MG in SODIUM CHLORIDE 0.9% 250 ML IVPB SCH (08:48)
[2019-07-31] MEDS: guaiFENesin-DM 100-10MG/5ML 10 ML CUP PO SCH ×2 (08:50→21:31)
[2019-07-31] MEDS: FUROSEMIDE 10 MG/ML 4 ML VIAL IV SCH ×2 (08:50→21:05)
[2019-07-31] MEDS: SODIUM CHLORIDE 0.9% 1,000 ML IV SCH ×2 (08:51→15:40)
[2019-07-31] MEDS: predniSONE 10 MG TAB PO SCH (08:51)
[2019-07-31] MEDS: GABAPENTIN 300 MG CAP PO SCH ×3 (08:51→21:05)
[2019-07-31] MEDS: LORATADINE 10 MG TAB PO SCH (08:51)
[2019-07-31] MEDS: POTASSIUM CHLORIDE ER 20 MEQ TAB.ER PO SCH ×2 (08:51→21:05)
[2019-07-31] MEDS: METOPROLOL TARTRATE 50 MG TAB PO SCH (08:51)
--- NOTE | 2019-07-31 09:30 | XR ---
EXAMINATION TYPE: XR chest 2V DATE OF EXAM: 07/31/2019 HISTORY: pneumonia. REFERENCE: Previous study dated 07/30/2019. FINDINGS: The heart is minimally enlarged. There is some improvement in the degree of congestive hear t failure. There continues to be some left basilar airspace disease. There are small, bilateral effus ions. IMPRESSION: 1. IMPROVING CHANGES OF CONGESTIVE HEART FAILURE. 2. CONTINUING LEFT BASILAR AIRSPACE DISEASE ALTHOUGH THIS HAS IMPROVED. THIS MAY REPRESENT CONFLUENT EDEMA OR PNEUMONIA. 3. SMALL, BILATERAL EFFUSIONS.
[2019-07-31 11:44] LABS: Glucose,Whole Blood 236 mg/dL (75-99)
--- NOTE | 2019-07-31 11:50 | P.PN ---
Subjective HISTORY OF PRESENTING ILLNESS This is a pleasant 84-year-old male past medical history significant for hypertension, dyslipidemia, diabetes mellitus, esophageal cancer, Hernandez's esophagus and peripheral vascular disease. He denies prior history of coronary artery disease. We have been asked to see in consultation for elevated troponin and shortness of breath. He follows in the office with Dr. Albrecht. He is much more alert and oriented today. He continues to have a significant cough and ongoing shortness of breath. Currently maintained on Lasix 40 mg IV twice a day, Lopressor 50 mg daily and pravastatin 80 mg at bedtime. Echocardiogram obtained reveals preserved LV systolic function with ejection fraction 55-60%, moderate aortic stenosis with a mean gradient of 24 mmHg, mild MR and mild TR. He has put out over 4 L of fluid in the previous 24 hours. PHYSICAL EXAMINATION CONSTITUTIONAL: No apparent distress. HEENT: Head is normocephalic. Pupils are equal, round. Sclerae anicteric. Mucous membranes of the mouth are moist. No JVD. No carotid bruit. CHEST EXAMINATION: Lungs are clear to auscultation. No chest wall tenderness is noted on palpation or with deep breathing. HEART EXAMINATION: Regular rate and rhythm. S1, S2 heard. Systolic ejection murmur at the base and left sternal border, no gallops or rub. EXTREMITIES: 2+ peripheral pulses, significant bilateral lower extremity 2-3+ pitting edema and no calf tenderness. ASSESSMENT Acute diastolic heart failure Abnormal troponin secondary to sepsis Pneumonia Sepsis Lactic acidosis Valvular heart disease, moderate aortic stenosis Diabetes mellitus Hypertension Dyslipidemia History of esophageal cancer status post chemotherapy and radiation PLAN Continue current medical regimen with IV diuresis for another 24 hours. We will continue to follow and make recommendations accordingly. Nurse Practitioner note has been reviewed, I agree with a documented findings and plan of care. Patient was seen and examined. Objective - Vital Signs Vital signs: Vital Signs Temp 97.6 F 07/31/19 08:10 Pulse 88 07/31/19 08:43 Resp 18 07/31/19 08:10 BP 107/69 07/31/19 08:10 Pulse Ox 100 07/31/19 08:10 Intake & Output 07/30/19 07/31/19 07/31/19 18:59 06:59 18:59 Intake Total 1140 420 600 Output Total 3425 3000 900 Balance -2285 -3990 -300 Weight 97.296 kg 112.5 kg Intake: IV 60 60 20 Invasive Line 1 60 60 20 Intake, IV Titration 300 Amount Vancomycin 1,500 mg In 250 Sodium Chloride 0.9% 250 ml @ 125 mls/hr IVPB Q16H [facility] Rx#:[id number] ceFAZolin 2 gm In Sodium 50 Chloride 0.9% 50 ml @ 100 mls/hr IVPB Q8HR [facility] Rx# :[id number] Oral 1080 360 280 Output: Urine 3425 3000 900 Other: Voiding Method Indwelling Catheter Indwelling Catheter Indwelling Catheter - Labs CBC & Chem 7: 07/31/19 05:20 07/31/19 05:20 Labs: Abnormal Lab Results - Last 24 Hours (Table) 07/30/19 07/30/19 07/30/19 Range/Units 10:26 12:16 16:30 RBC (4.30-5.90) m/uL Hgb (13.0-17.5) gm/dL Hct (39.0-53.0) % RDW (11.5-15.5) % Plt Count (150-450) k/uL Lymphocytes # (1.0-4.8) k/uL BUN (9-20) mg/dL Glucose (74-99) mg/dL POC Glucose (mg/dL) 167 H 226 H (75-99) mg/dL Calcium (8.4-10.2) mg/dL Troponin I 0.080 H* (0.000-0.034) ng/mL 07/30/19 07/31/19 07/31/19 Range/Units 20:43 05:20 05:20 RBC 3.83 L (4.30-5.90) m/uL Hgb 11.7 L (13.0-17.5) gm/dL Hct 36.8 L (39.0-53.0) % RDW 15.7 H (11.5-15.5) % Plt Count 79 L (150-450) k/uL Lymphocytes # 0.3 L (1.0-4.8) k/uL BUN 24 H (9-20) mg/dL Glucose 238 H (74-99) mg/dL POC Glucose (mg/dL) 314 H (75-99) mg/dL Calcium 7.8 L (8.4-10.2) mg/dL Troponin I (0.000-0.034) ng/mL 07/31/19 Range/Units 06:04 RBC (4.30-5.90) m/uL Hgb (13.0-17.5) gm/dL Hct (39.0-53.0) % RDW (11.5-15.5) % Plt Count (150-450) k/uL Lymphocytes # (1.0-4.8) k/uL BUN (9-20) mg/dL Glucose (74-99) mg/dL POC Glucose (mg/dL) 273 H (75-99) mg/dL Calcium (8.4-10.2) mg/dL Troponin I (0.000-0.034) ng/mL Microbiology - Last 24 Hours (Table) 07/29/19 15:23 Gram Stain - Preliminary Sputum Sputum Culture - Preliminary Staphylococcus aureus Gram Neg Bacilli 07/30/19 05:34 Blood Culture Gram Stain - Preliminary Blood 07/30/19 05:34 Blood Culture - Final Blood 07/29/19 05:13 Blood Culture Gram Stain - Preliminary Blood Blood Culture - Preliminary Staphylococcus aureus
--- NOTE | 2019-07-31 12:06 | P.PN ---
Subjective Progress Note Date: 07/31/19 Principal diagnosis: Stenotrophomonas pneumonia 89-year-old white male patient of Dr. Dozier, with past medical history of hypertension, hyperlipidemia, diabetes, GERD, chronic cough, recurrent pulmonary infections requiring bronchoalveolar lavage with peripheral cultures positive for stenotrophomonas maltophilia resistant to Levaquin, ceftazidime, and Bactrim. Patient also had an episode of ARDS in 2019, gout, esophageal cancer with 28 previous radiation treatments and chemotherapy completed in August 2017. Patient was recently hospitalized for tracheobronchitis, with sputum cultures positive for Stenotrophomonas maltophilia. Per ID service and no antibiotics were recommended. Patient was discharged to the [facility] in stable medical condition. Apparently early this morning on 07/29/2019 staff at the [facility] found the patient short of breath, coughing, congested and confused. He was bringing up large amount of phlegm is quite thick and brown in color. Emergency department chest x-ray showed small amount of airspace opacities and bilateral lower lungs, there was felt to be related to atelectasis, hypoventilation rather than pneumonia. I am work showed white blood count of 4.0, hemoglobin of 13.3, platelet count of 88, INR was 0.9, electrolytes were within normal limits, BUN was 15 creatinine 0.74. ProBNP was 354, troponin was 0.068, urinalysis showed moderate amount of blood, but no evidence of infection, influenza screen was negative. Patient was febrile with a temp of 100.4F. Started on Zithromax and Rocephin, was given a dose of tigecycline. He is currently resting comfortably on the stretcher in the emergency department, in no acute distress, pulse ox is 99% on 2 L, vital signs are stable, low-grade fever 99.0F, in sinus mechanism with a controlled rate. No complaints of chest pain, his mentation is improving, he is answering questions appropriately. The patient is seen today 07/30/2019 in follow-up on the selective care unit. He is resting in bed. Awake and alert in no acute distress. Maintaining an O2 saturations up to 100% on 2 L/m per nasal cannula. He is afebrile. Preliminary blood cultures revealing Staphylococcus aureus. Preliminary sputum cultures reading presumptive staph aureus. The C4 0.5. Hemoglobin 12.0. Creatinine 0.88. Currently on DuoNeb inhalations Pulmicort and Perforomist inhalations antibiotics in the form of cefepime, vancomycin and tigecycline. Previous cultures were positive for stenotrophomonas maltophilia. Chest x-ray continues with bibasilar airspace disease, mild findings and congestive heart failure small pleural effusions. The patient is seen today for every 16 2020 in follow-up on the selective care unit. He remains awake and alert in no acute distress. Resting comfortably in bed currently. Maintaining O2 saturations up to 100% on 2 L/m per nasal cannula . Continues with a periodic dry nonproductive cough. Chest is congested. Blood and sputum cultures positive for methicillin sensitive Staphylococcus aureus along with a gram-negative bacilli. He had been previously cultured for Stenotrophomonas maltophilia. White count 4.6. Hemoglobin 11.7. Sodium 137. Potassium 3.7. Bicarb 27. Creatinine 0.96. He is currently on cefazolin, per ID services. Chest x-ray reveals improved changes of congestive heart failure, continued left by basilar airspace disease which also has improved. Small bilateral effusions. He remains on IV diuretics, bronchodilators, prednisone. Objective - Vital Signs Vital signs: Vital Signs Temp 97.6 F 07/31/19 08:10 Pulse 73 07/31/19 11:15 Resp 16 07/31/19 11:15 BP 102/68 07/31/19 11:15 Pulse Ox 100 07/31/19 11:15 Intake & Output 07/30/19 07/31/19 07/31/19 18:59 06:59 18:59 Intake Total 1140 420 620 Output Total 3425 3000 900 Balance -2674 -2249 -280 Weight 97.296 kg 112.5 kg Intake: IV 60 60 40 Invasive Line 1 60 60 40 Intake, IV Titration 300 Amount Vancomycin 1,500 mg In 250 Sodium Chloride 0.9% 250 ml @ 125 mls/hr IVPB Q16H [facility] Rx#:[id number] ceFAZolin 2 gm In Sodium 50 Chloride 0.9% 50 ml @ 100 mls/hr IVPB Q8HR [facility] Rx# :[id number] Oral 1080 360 280 Output: Urine 3425 3000 900 Other: Voiding Method Indwelling Catheter Indwelling Catheter Indwelling Catheter - Exam GENERAL EXAM: Alert, pleasant 84-year-old male patient, 2 L of oxygen with pulse ox of 100%, in no acute distress, comfortable in no apparent distress. HEAD: Normocephalic/atraumatic. EYES: Normal reaction of pupils, equal size. Conjunctiva pink, sclera white. NOSE: Clear with pink turbinates. THROAT: No erythema or exudates. NECK: No masses, no JVD, no thyroid enlargement, no adenopathy. CHEST: No chest wall deformity. Symmetrical expansion. LUNGS: Equal air entry with bilateral scattered rhonchi, crackles in the posterior bases. CVS: Regular rate and rhythm, normal S1 and S2, no gallops, no murmurs, no rubs ABDOMEN: Soft, nontender. No hepatosplenomegaly, normal bowel sounds, no guarding or rigidity. EXTREMITIES: No clubbing, 1+ pitting edema in bilateral lower extremities, no cyanosis, 2+ pulses and upper and lower extremities. MUSCULOSKELETAL: Muscle strength and tone normal. SPINE: No scoliosis or deformity SKIN: No rashes CENTRAL NERVOUS SYSTEM: No focal deficits, tone is normal in all 4 extremities. PSYCHIATRIC: Alert and oriented -3. Appropriate affect. Intact judgment and insight. - Labs CBC & Chem 7: 07/31/19 05:20 07/31/19 05:20 Labs: Abnormal Lab Results - Last 24 Hours (Table) 07/30/19 07/30/19 07/30/19 Range/Units 12:16 16:30 20:43 RBC (4.30-5.90) m/uL Hgb (13.0-17.5) gm/dL Hct (39.0-53.0) % RDW (11.5-15.5) % Plt Count (150-450) k/uL Lymphocytes # (1.0-4.8) k/uL BUN (9-20) mg/dL Glucose (74-99) mg/dL POC Glucose (mg/dL) 167 H 226 H 314 H (75-99) mg/dL Calcium (8.4-10.2) mg/dL 07/31/19 07/31/19 07/31/19 Range/Units 05:20 05:20 06:04 RBC 3.83 L (4.30-5.90) m/uL Hgb 11.7 L (13.0-17.5) gm/dL Hct 36.8 L (39.0-53.0) % RDW 15.7 H (11.5-15.5) % Plt Count 79 L (150-450) k/uL Lymphocytes # 0.3 L (1.0-4.8) k/uL BUN 24 H (9-20) mg/dL Glucose 238 H (74-99) mg/dL POC Glucose (mg/dL) 273 H (75-99) mg/dL Calcium 7.8 L (8.4-10.2) mg/dL 07/31/19 Range/Units 11:34 RBC (4.30-5.90) m/uL Hgb (13.0-17.5) gm/dL Hct (39.0-53.0) % RDW (11.5-15.5) % Plt Count (150-450) k/uL Lymphocytes # (1.0-4.8) k/uL BUN (9-20) mg/dL Glucose (74-99) mg/dL POC Glucose (mg/dL) 236 H (75-99) mg/dL Calcium (8.4-10.2) mg/dL Microbiology - Last 24 Hours (Table) 07/30/19 05:34 Blood Culture Gram Stain - Preliminary Blood 07/29/19 05:13 Blood Culture Gram Stain - Final Blood Blood Culture - Final Staphylococcus aureus 07/29/19 15:23 Gram Stain - Preliminary Sputum Sputum Culture - Preliminary Staphylococcus aureus Gram Neg Bacilli 07/30/19 05:34 Blood Culture - Final Blood Assessment and Plan Assessment: #1. Acute on chronic dyspnea, chest x-ray showed atelectasis possibility of left lower lobe pneumonia, and right base pneumonia is not excluded. Sputum cu lture positive for methicillin sensitive staph aureus with blood cultures positive for staph aureus final ID pending. Currently on cefazolin. #2. Recent hospitalization for tracheobronchitis with sputum culture positive for trichomonas maltophilia multidrug resistant, including Levaquin, ceftazid vaishali, and Bactrim #3. Altered mentation at the [facility] at the time of symptom onset with coughing, confusion, and chest congestion, improved #4. Plasma lactic acidosis, possibly related to sepsis, improved with hydration #5. Elevated troponins, possibly related to sepsis #6. 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 History of esophageal cancer status post resection and subsequent radiofrequency ablation at [facility] in November 2012 with recurrence and chemoradiation in 2018 completed 09/02/2017 #8. Obesity #9. Hypertension #10. Hyperlipidemia #11. Gout #12. Lifelong nonsmoker with normal pulmonary function testing #13. History of chronic kidney disease #14. History of left carotid occlusion Plan: The patient was seen and evaluated by Dr. Akhtar. Chest x-ray and labs reviewed. ID is on the case and the patient is currently on cefazolin. Cultures positive for methicillin sensitive Staphylococcus aureus. Continued with bronchodilators and prednisone. We will continue with current treatment plan. Increase his act ivity as tolerated. We'll continue to follow. I, the cosigning physician, performed a history & physical examination of the patient. Lungs sounds with bilateral scattered rhonchi, crackles in the posterior bases. Maintaining good O2 saturations in the 90s on 2 L/m per nasal cannula. I discussed the assessment and plan of care with my nurse practitioner, Heather Lara. I attest to the above note as dictated by her.
[2019-07-31] MEDS: IPRATROPIUM-ALBUTEROL 3 ML NEB INHALATION PRN ×2 (12:12→16:23)
[2019-07-31 17:25] LABS: Glucose,Whole Blood 251 mg/dL (75-99)
[2019-07-31 20:42] LABS: Glucose,Whole Blood 392 mg/dL (75-99)
[2019-07-31] MEDS: FLUCONAZOLE 100 MG TAB PO SCH (21:06)
[2019-07-31] MEDS: FLUTICASONE 50MCG/SPRAY NASAL 16GM EA NOSTRIL SCH (21:06)
[2019-07-31] MEDS: ZOLPIDEM 10 MG TAB PO SCH (21:20)
[2019-07-31] MEDS: PRAVASTATIN SODIUM 80 MG TAB PO SCH (21:31)
--- NOTE | 2019-07-31 22:07 | PN ---
PROGRESS NOTE DATE OF SERVICE: 07/31/2019 This 84-year-old gentleman who was admitted with acute respiratory also had bilateral pneumonia. Stenotrophomonas maltophilia was cultured previously, currently presumptive Staph aureus gram-negative bacilli also being considered cultured. The Staph aureus MSSA at this time, MSSA from the blood. PAST MEDICAL HISTORY: Reviewed. REVIEW OF SYSTEMS: Cardiovascular: No angina or palpitations. RESPIRATORY: As mentioned earlier. GI: As mentioned earlier. : No dysuria. CENTRAL NERVOUS SYSTEM: No numbness or weakness. CURRENT MEDICATIONS: Reviewed and include: 1. Tylenol 650 q.4 p.r.n. 2. DuoNeb q.i.d. and p.r.n. 3. Dulcolax. 4. Pulmicort. 5. Cefazolin 2 g IV q.8h. 6. Diflucan. 7. Perforomist. 8. Lasix. 9. Neurontin. 10.Robitussin. 11.NovoLog. 12.Levemir. 13.Claritin. 14.Lopressor. 15.Nitrostat. 16.Protonix. 17.Pravachol. 18.Prednisone. 19.Ambien. PHYSICAL EXAM: Patient is alert and oriented x2. Pulse is 74. Blood pressure 105/60. Respirations 16, temperature 98 degrees, pulse ox 100 percent on 2 L. HEENT: Conjunctivae normal. NECK: No JVD. CARDIOVASCULAR: S1, S2 muffled. RESPIRATORY SYSTEM: Breath sounds diminished at the bases. Bilateral scattered rhonchi and crackles. Expiratory wheezing. ABDOMEN: Soft, obese, nontender. LEGS are no edema. No swelling. CENTRAL NERVOUS SYSTEM: No focal deficits. LAB STUDIES: WBC 4.6, hemoglobin 11.7, platelets are 79. Accu-Cheks 238, 273. ASSESSMENT: 1. Acute bilateral pneumonia possibly gram-negative with possible hospital-acquired with failure of outpatient treatment with acute sepsis, severe sepsis, hypotension, septic shock, present on admission. 2. MSSA sepsis. 3. Tachycardia, present on admission. 4. History of recent pneumonia, interstitial lung disease, undetermined etiology with some bronchiectasis in the lower lobes. 5. Stenotrophomonas maltophilia resistant from the recent cultures. 6. Diabetes mellitus type 2. 7. Troponin 0.06 indeterminate. 8. Change in mental status, metabolic encephalopathy, multifactorial. 9. Gastroesophageal reflux disease. 10.Hearing disorder. 11.Hard of hearing. 12.Hypertension. 13.Hyperlipidemia. 14.History of memory impairment. 15.History of degenerative joint disease. 16.History of pneumonia. 17.History of renal disease. 18.History of fracture L2-4 with bilateral leg pain. 19.History of gout. 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 21.History of carcinoma, status post radiation and chemo. 22.History of hiatal hernia. 23.History of pneumonia. 24.History of peripheral neuropathy. 25.History of stomach ulcer. 26.History of carotid stenosis. 27.History of shingles. 28.History of appendectomy. 29.History of back surgery. 30.History of bilateral rotator cuff surgery. 31.Obesity with body mass index of 33.1. RECOMMENDATIONS AND DISCUSSION: In this 84-year-old gentleman who presented with multiple complex medical issues, we will monitor the patient closely, continue the current medications, management and symptomatic treatment. Otherwise at this time I would recommend continue the bronchodilators. Continue with empiric antibiotics. Otherwise, I would also continue with, the patient is on IV cefazolin at this time. Closely follow with Pulmonary. The patient has received a dose of Tigecycline. As mentioned earlier, the blood cultures have been positive consistently. I would recommend a 2D echo with Doppler and if the blood culture is consistent, I would definitely recommend further evaluation including FATOUMATA and other evaluations also. Once again, the prognosis guarded because of multiple complex medical issues. The today's chest x-ray was personally reviewed by me showed bilateral lesions, predominantly lower lobe also. Guarded prognosis. Further recommendations to follow. MMODL / IJN: [id number] /
--- NOTE | 2019-07-31 22:21 | PN ---
PROGRESS NOTE DATE OF SERVICE: 07/31/2019 REASON FOR FOLLOWUP: MSSA bacteremia and pneumonia. INTERVAL HISTORY: The patient is currently afebrile, has been breathing slightly comfortably. The patient did have a cough, though slightly decreased intensity, sleeping up sputum. No hemoptysis. No chest pain. No nausea, vomiting, abdominal pain. No diarrhea. PHYSICAL EXAMINATION: Blood pressure 105/67, pulse of 78, temperature 98, he is 100% 2 L nasal cannula. General description is an elderly male lying in bed in no distress. Respiratory system: Unlabored breathing, decreased breath sounds, no wheeze. Heart S1, S2. Regular rate and rhythm. Abdomen soft, no tenderness. LABS: Hemoglobin is 11.7, white count 4.6, BUN of 24, creatinine 0.96. Blood culture is still coming back positive. DIAGNOSTIC IMPRESSION AND PLAN: Patient with MSSA bacteremia, source is pneumonia. The patient's blood cultures will be repeated to document clearance of bacteremia. Cefazolin will be continued. Vancomycin discontinued. Family at the bedside, questions were answered. MMODL / IJN: [id number] /
[2019-08-01] MEDS: IPRATROPIUM-ALBUTEROL 3 ML NEB INHALATION SCH ×4 (00:37→20:33)
[2019-08-01 06:11] LABS: Glucose,Whole Blood 185 mg/dL (75-99)
[2019-08-01] MEDS: INSULIN ASPART (NovoLOG) 100 UNIT/ML VIAL SQ SCH ×4 (06:59→21:04)
[2019-08-01] MEDS: PANTOPRAZOLE 40 MG TABLET PO SCH (06:59)
[2019-08-01 07:08] LABS: Basophils % (A) 0 %; Eosinophils # (A) 0.1 k/uL (0-0.7); Eosinophils % (A) 2 %; HCT 37.3 % (39.0-53.0); Lymphocytes # (A) 0.5 k/uL (1.0-4.8); Lymphocytes % (A) 17 %; MCH 30.6 pg (25.0-35.0); MCHC 32.1 g/dL (31.0-37.0); MCV 95.4 fL (80.0-100.0); Mean Platelet Volume 9.5; Monocytes # (A) 0.1 k/uL (0-1.0); Monocytes % (A) 4 %; Neutrophils # (A) 2.4 k/uL (1.3-7.7); Neutrophils % (A) 75 %; RBC 3.91 m/uL (4.30-5.90); RDW 15.4 % (11.5-15.5); WBC 3.2 k/uL (3.8-10.6)
[2019-08-01 07:19] LABS: Platelet Count 96 k/uL (150-450)
[2019-08-01 07:28] LABS: Calcium 8.4 mg/dL (8.4-10.2); Potassium 4.2 mmol/L (3.5-5.1)
[2019-08-01] MEDS: GABAPENTIN 300 MG CAP PO SCH ×3 (08:11→20:28)
[2019-08-01] MEDS: FUROSEMIDE 10 MG/ML 4 ML VIAL IV SCH ×2 (08:11→20:29)
[2019-08-01] MEDS: METOPROLOL TARTRATE 50 MG TAB PO SCH (08:12)
[2019-08-01] MEDS: LORATADINE 10 MG TAB PO SCH (08:12)
[2019-08-01] MEDS: predniSONE 10 MG TAB PO SCH (08:12)
[2019-08-01] MEDS: POTASSIUM CHLORIDE ER 20 MEQ TAB.ER PO SCH ×2 (08:12→20:28)
[2019-08-01] MEDS: INSULIN DETEMIR (LEVEMIR) 100 UNIT/ML SYR SQ SCH ×2 (08:12→21:03)
[2019-08-01] MEDS: guaiFENesin-DM 100-10MG/5ML 10 ML CUP PO SCH ×2 (08:16→20:28)
[2019-08-01] MEDS: FORMOTEROL FUMARATE 20 MCG/2 ML NEBU INHALATION SCH ×3 (09:08→20:33)
[2019-08-01] MEDS: BUDESONIDE 1 MG/2 ML NEBU INHALATION SCH ×2 (09:08→20:33)
[2019-08-01 12:15] LABS: Glucose,Whole Blood 302 mg/dL (75-99)
--- NOTE | 2019-08-01 15:00 | P.PN ---
Subjective Progress Note Date: 08/01/19 This is a pleasant 84-year-old male past medical history significant for hypertension, dyslipidemia, diabetes mellitus, esophageal cancer, Hernandez's esophagus and peripheral vascular disease. He denies prior history of coronary artery disease. We have been asked to see in consultation for elevated troponin and shortness of breath. He follows in the office with Dr. Albrecht. Patient was initiated on IV Lasix, he's been diuresing well. Chest x-ray from yesterday did show improvement in heart failure. White blood cell count 3.2, hemoglobin 12.0, platelet count 96. Sodium 138, potassium 4.2, BUN 22, creatinine 0.9. Objective - Vital Signs Vital signs: Vital Signs Temp 98.6 F 08/01/19 11:38 Pulse 88 08/01/19 13:01 Resp 20 08/01/19 11:38 BP 98/65 08/01/19 11:38 Pulse Ox 94 L 08/01/19 11:38 Intake & Output 07/31/19 08/01/19 08/01/19 18:59 06:59 18:59 Intake Total 820 60 600 Output Total 1700 4000 1800 Balance -880 3940 -1200 Weight 82 kg Intake: IV 60 60 Invasive Line 1 60 60 Intake, IV Titration 300 Amount Vancomycin 1,500 mg In 250 Sodium Chloride 0.9% 250 ml @ 125 mls/hr IVPB Q16H [facility] Rx#:[id number] ceFAZolin 2 gm In Sodium 50 Chloride 0.9% 50 ml @ 100 mls/hr IVPB Q8HR [facility] Rx# :[id number] Oral 460 600 Output: Urine 1700 4000 1800 Other: Voiding Method Indwelling Catheter Indwelling Catheter Indwelling Catheter # Bowel Movements 1 - Exam PHYSICAL EXAMINATION CONSTITUTIONAL: No apparent distress. HEENT: Head is normocephalic. Pupils are equal, round. Sclerae anicteric. Mucous membranes of the mouth are moist. No JVD. No carotid bruit. CHEST EXAMINATION: Lungs are clear to auscultation. No chest wall tenderness is noted on palpation or with deep breathing. HEART EXAMINATION: Regular rate and rhythm. S1, S2 heard. Systolic ejection murmur at the base and left sternal border, no gallops or rub. EXTREMITIES: 2+ peripheral pulses, significant bilateral lower extremity 2-3+ pitting edema and no calf tenderness. - Labs CBC & Chem 7: 08/01/19 06:21 08/01/19 06:21 Labs: Abnormal Lab Results - Last 24 Hours (Table) 07/31/19 07/31/19 08/01/19 Range/Units 17:06 20:41 06:10 WBC (3.8-10.6) k/uL RBC (4.30-5.90) m/uL Hgb (13.0-17.5) gm/dL Hct (39.0-53.0) % Plt Count (150-450) k/uL Lymphocytes # (1.0-4.8) k/uL BUN (9-20) mg/dL Glucose (74-99) mg/dL POC Glucose (mg/dL) 251 H 392 H 185 H (75-99) mg/dL 08/01/19 08/01/19 08/01/19 Range/Units 06:21 06:21 11:53 WBC 3.2 L (3.8-10.6) k/uL RBC 3.91 L (4.30-5.90) m/uL Hgb 12.0 L (13.0-17.5) gm/dL Hct 37.3 L (39.0-53.0) % Plt Count 96 L (150-450) k/uL Lymphocytes # 0.5 L (1.0-4.8) k/uL BUN 22 H (9-20) mg/dL Glucose 181 H (74-99) mg/dL POC Glucose (mg/dL) 302 H (75-99) mg/dL Microbiology - Last 24 Hours (Table) 07/29/19 15:23 Gram Stain - Final Sputum Sputum Culture - Final Staphylococcus aureus Stenotrophomonas maltophilia 07/31/19 05:20 Blood Culture - Preliminary Blood No Growth after 24 hours 07/30/19 05:34 Blood Culture Gram Stain - Preliminary Blood Blood Culture - Preliminary Presumptive Staph aureus 07/29/19 05:13 Blood Culture Gram Stain - Final Blood Blood Culture - Final Staphylococcus aureus Assessment and Plan Plan: ASSESSMENT and plan #1 Acute diastolic heart failure #2 Abnormal troponin secondary to sepsis #3 Pneumonia #4 Sepsis #5 Lactic acidosis #6 Valvular heart disease, moderate aortic stenosis #7 Diabetes mellitus #8 Hypertension #9 Dyslipidemia #History of esophageal cancer status post chemotherapy and radiation Plan We will continue current dose of IV Lasix for 24 hours, check lytes BUN creatinine and daily weights. DNP note has been reviewed, I agree with a documented findings and plan of care. Patient was seen and examined.
[2019-08-01 16:47] LABS: Glucose,Whole Blood 316 mg/dL (75-99)
--- NOTE | 2019-08-01 18:11 | P.PN ---
Subjective Progress Note Date: 08/01/19 I'm seeing this patient for a follow-up. The patient is very well-known to me. The patient came in for bilateral pneumonia and sepsis. The cultures in the sputum and the blood was positive for MSSA. As noted earlier, the patient had multiple cultures positive for stenotrophomonas in the sputum. This was also recovered by this bronchoscopy and bronchial lavage that was done around 3 weeks ago. In any rate, the patient came into the hospital because of worsening shortness of breath, fever, altered mentation, cough and congestion. He was seen by infectious disease. The patient is being covered only MSSA infection and the patient is currently on. The white cell count is not elevated. Renal f unction is within normal limits. Nevertheless, the patient still crackling in lung bases and his cough remains essentially congested at this point in time. Objective - Vital Signs Vital signs: Vital Signs Temp 96.9 F L 08/01/19 16:00 Pulse 80 08/01/19 16:00 Resp 20 08/01/19 16:00 BP 109/61 08/01/19 16:00 Pulse Ox 97 08/01/19 16:00 Intake & Output 07/31/19 08/01/19 08/01/19 18:59 06:59 18:59 Intake Total 820 60 600 Output Total 1700 4000 1800 Balance -880 3940 -1200 Weight 82 kg Intake: IV 60 60 Invasive Line 1 60 60 Intake, IV Titration 300 Amount Vancomycin 1,500 mg In 250 Sodium Chloride 0.9% 250 ml @ 125 mls/hr IVPB Q16H [facility] Rx#:[id number] ceFAZolin 2 gm In Sodium 50 Chloride 0.9% 50 ml @ 100 mls/hr IVPB Q8HR [facility] Rx# :[id number] Oral 460 600 Output: Urine 1700 4000 1800 Other: Voiding Method Indwelling Catheter Indwelling Catheter Indwelling Catheter # Voids 0 # Bowel Movements 1 - Exam GENERAL EXAM: Alert, pleasant 84-year-old male patient, 2 L of oxygen with pulse ox of 100%, in no acute distress, comfortable in no apparent distress. HEAD: Normocephalic/atraumatic. EYES: Normal reaction of pupils, equal size. Conjunctiva pink, sclera white. NOSE: Clear with pink turbinates. THROAT: No erythema or exudates. NECK: No masses, no JVD, no thyroid enlargement, no adenopathy. CHEST: No chest wall deformity. Symmetrical expansion. LUNGS: Equal air entry with bilateral scattered rhonchi, crackles in the pos terior bases. CVS: Regular rate and rhythm, normal S1 and S2, no gallops, no murmurs, no rubs ABDOMEN: Soft, nontender. No hepatosplenomegaly, normal bowel sounds, no guarding or rigidity. EXTREMITIES: No clubbing, 1+ pitting edema in bilateral lower extremities, no cyanosis, 2+ pulses and upper and lower extremities. MUSCULOSKELETAL: Muscle strength and tone normal. SPINE: No scoliosis or deformity SKIN: No rashes CENTRAL NERVOUS SYSTEM: No focal deficits, tone is normal in all 4 extremities. PSYCHIATRIC: Alert and oriented -3. Appropriate affect. Intact judgment and insight. - Labs CBC & Chem 7: 08/01/19 06:21 08/01/19 06:21 Labs: Abnormal Lab Results - Last 24 Hours (Table) 07/31/19 08/01/19 08/01/19 Range/Units 20:41 06:10 06:21 WBC 3.2 L (3.8-10.6) k/uL RBC 3.91 L (4.30-5.90) m/uL Hgb 12.0 L (13.0-17.5) gm/dL Hct 37.3 L (39.0-53.0) % Plt Count 96 L (150-450) k/uL Lymphocytes # 0.5 L (1.0-4.8) k/uL BUN (9-20) mg/dL Glucose (74-99) mg/dL POC Glucose (mg/dL) 392 H 185 H (75-99) mg/dL 08/01/19 08/01/19 08/01/19 Range/Units 06:21 11:53 16:35 WBC (3.8-10.6) k/uL RBC (4.30-5.90) m/uL Hgb (13.0-17.5) gm/dL Hct (39.0-53.0) % Plt Count (150-450) k/uL Lymphocytes # (1.0-4.8) k/uL BUN 22 H (9-20) mg/dL Glucose 181 H (74-99) mg/dL POC Glucose (mg/dL) 302 H 316 H (75-99) mg/dL Microbiology - Last 24 Hours (Table) 07/30/19 05:34 Blood Culture Gram Stain - Final Blood Blood Culture - Final Staphylococcus aureus 07/29/19 15:23 Gram Stain - Final Sputum Sputum Culture - Final Staphylococcus aureus Stenotrophomonas maltophilia 07/31/19 05:20 Blood Culture - Preliminary Blood No Growth after 24 hours Assessment and Plan Plan: #1. Acute staphylococcal pneumonia with sepsis and the patient is currently covered with. The patient has bilateral lower lobe pneumonia is most on the left. Nevertheless, the sputum also showed stenotrophomonas which is currently being assumed to be a colonizer by infectious disease. I think we need to give this microorganism a closer attention of the patient has been chronically ill, and symptomatic #2. 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 Altered mentation at the [facility] at the time of symptom onset with coughing, confusion, and chest congestion, improved #4. Plasma lactic acidosis, possibly related to sepsis, improved with hydration #5. Elevated troponins, possibly related to sepsis #6. 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 History of esophageal cancer status post resection and subsequent radiofrequency ablation at [facility] in November 2012 with recurrence and chemoradiation in 2018 completed 09/02/2017 #8. Obesity #9. Hypertension #10. Hyperlipidemia #11. Gout #12. Lifelong nonsmoker with normal pulmonary function testing #13. History of chronic kidney disease #14. History of left carotid occlusion Plan Clinically still symptomatic. We'll discuss the antibiotic coverage infectious disease. With a rather see the gram-negative infection being also covered in addition to staph. We'll continue to follow.
[2019-08-01] MEDS: SODIUM CHLORIDE 0.9% 1,000 ML IV SCH (18:41)
[2019-08-01] MEDS: PRAVASTATIN SODIUM 80 MG TAB PO SCH (20:28)
[2019-08-01] MEDS: FLUCONAZOLE 100 MG TAB PO SCH (20:28)
[2019-08-01 20:33] LABS: Glucose,Whole Blood 504 mg/dL (75-99)
--- NOTE | 2019-08-01 21:38 | PN ---
PROGRESS NOTE DATE OF SERVICE: 08/01/2019 This 84-year-old gentleman who was admitted with multiple medical problems, also had MSSA sepsis. The patient is on broad-spectrum IV antibiotics. No chest pain. No palpitations. No fever. Stenotrophomonas maltophilia is also growing from the sputum culture. EXAM: Alert and oriented x2. Pulse is 80. Blood pressure is 109/61. Respiratory rate 20. Temperature 98.9, pulse ox 97% on room air. HEENT: Conjunctivae normal. NECK: No jugular venous distention. CARDIOVASCULAR: S1, S2 muffled. RESPIRATORY SYSTEM: Breath sounds diminished at the bases. A few scattered rhonchi and crackles. ABDOMEN is soft, nontender. LEGS are no edema. No swelling. CENTRAL NERVOUS SYSTEM: No focal deficits. LABS: WBC 3.2, hemoglobin 12, sodium 138, potassium 4.2. ASSESSMENT: 1. Acute bilateral pneumonia possibly gram-negative possibly hospital acquired pneumonia with failure of outpatient treatment with acute sepsis, severe sepsis, hypotension, septic shock, present on admission. 2. MSSA sepsis. 3. History of Stenotrophomonas maltophilia from the sputum culture. 4. Tachycardia, present on admission. 5. History of recent pneumonia. 6. History of interstitial lung disease, undetermined etiology with some bronchiectasis of the lower lobes. 7. Stenotrophomonas maltophilia resistant from the recent cultures. 8. Diabetes mellitus type 2. 9. Troponin 0.06 indeterminate. 10.Change in mental status, metabolic encephalopathy, multifactorial. 11.Gastroesophageal reflux disease. 12.Hard of hearing. 13.Hypertension. 14.Hyperlipidemia. 15.History of memory impairment. 16.History of degenerative joint disease. 17.History of pneumonia. 18.History of renal disease. 19.History of fracture L2-4 with bilateral leg pain. 20.History of gout. 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 22.History of esophageal carcinoma status post radiation and chemo. 23.History of hiatal hernia. 24.History of pneumonia. 25.History of peripheral neuropathy. 26.History of stomach ulcer. 27.History of carotid stenosis. 28.History of shingles. 29.History of appendectomy. 30.History of back surgery. 31.History of bilateral rotator cuff surgery. 32.Obesity with body mass index of 32.1. RECOMMENDATIONS AND DISCUSSION: I recommend to continue current medications, management and symptomatic treatment. Otherwise, continue with IV antibiotics. The most recent blood culture done on the is negative so far. The blood culture on the showed MSSA. A 2D echo with Doppler was done which showed two way pericardial effusion and ejection fraction about 50-60 percent and minimal valvular abnormalities. The prognosis guarded because of multiple complex medical issues. Discussed with Dr. Nur. Further recommendations to follow. MMODL / IJN: [id number] /
[2019-08-01] MEDS: ZOLPIDEM 10 MG TAB PO SCH (21:41)
[2019-08-01] MEDS: FLUTICASONE 50MCG/SPRAY NASAL 16GM EA NOSTRIL SCH (21:46)
[2019-08-01 22:46] LABS: Glucose,Whole Blood 298 mg/dL (75-99)
[2019-08-01] MEDS ORDERED: INSULIN DETEMIR (LEVEMIR) 100 UNIT/ML SYR SQ SCH (23:30)
[2019-08-02] MEDS: IPRATROPIUM-ALBUTEROL 3 ML NEB INHALATION SCH ×5 (03:33→20:01)
--- NOTE | 2019-08-02 05:02 | PN ---
PROGRESS NOTE DATE OF SERVICE: 08/01/2019 REASON FOR FOLLOWUP: MSSA bacteremia, source is pneumonia. INTERVAL HISTORY: The patient is afebrile. The patient has been breathing comfortably. The patient denies having any chest pain, cough with decreased in intensity, less productive. No nausea, no vomiting. No abdominal pain, no diarrhea. PHYSICAL EXAMINATION: Blood pressure 109/61 with a pulse of 80, temperature of 96.9. He is 97% on room air. General description is an elderly male lying in bed in no distress. RESPIRATORY SYSTEM: Unlabored breathing with decreased breath sounds in the bases. No wheeze. HEART: S1, S2. Regular rate and rhythm. ABDOMEN: Soft, no tenderness. LABS: Hemoglobin is 12 with white count 3.2, BUN of 22, creatinine 0.95. Blood cultures of 07/31 has been negative so far. DIAGNOSTIC IMPRESSION AND PLAN: Patient with MSSA bacteremia, source is left lower lobe pneumonia. Sputum has been MSSA. The patient also has multidrug-resistant Stenotrophomonas in the sputum which likely a colonizer, as the patient clinically improved without getting treatment for the same. Recommend keeping the patient on cefazolin 2 grams q.8 hours. We will get Midline so the patient can continue with IV cefazolin for at least 2 weeks from his negative blood cultures and will monitor clinical course closely. Continue with supportive care. MMODL / SHAHRIARN: [id number] / MTDD
[2019-08-02 05:16] LABS: Glucose,Whole Blood 163 mg/dL (75-99)
[2019-08-02] MEDS: INSULIN ASPART (NovoLOG) 100 UNIT/ML VIAL SQ SCH ×4 (06:25→21:10)
[2019-08-02] MEDS: PANTOPRAZOLE 40 MG TABLET PO SCH (06:25)
[2019-08-02] MEDS: INSULIN DETEMIR (LEVEMIR) 100 UNIT/ML SYR SQ SCH ×2 (07:22→21:10)
[2019-08-02] MEDS: FORMOTEROL FUMARATE 20 MCG/2 ML NEBU INHALATION SCH ×3 (07:35→20:01)
[2019-08-02] MEDS: BUDESONIDE 1 MG/2 ML NEBU INHALATION SCH ×3 (07:35→20:01)
[2019-08-02] MEDS: guaiFENesin-DM 100-10MG/5ML 10 ML CUP PO SCH ×2 (08:54→23:08)
[2019-08-02] MEDS: GABAPENTIN 300 MG CAP PO SCH ×3 (08:54→21:09)
[2019-08-02] MEDS: predniSONE 10 MG TAB PO SCH (08:55)
[2019-08-02] MEDS: LORATADINE 10 MG TAB PO SCH (08:55)
[2019-08-02] MEDS: FUROSEMIDE 10 MG/ML 4 ML VIAL IV SCH ×2 (08:55→21:10)
[2019-08-02] MEDS: METOPROLOL TARTRATE 50 MG TAB PO SCH (08:55)
[2019-08-02] MEDS: POTASSIUM CHLORIDE ER 20 MEQ TAB.ER PO SCH ×2 (08:55→23:08)
[2019-08-02 12:25] LABS: Glucose,Whole Blood 222 mg/dL (75-99)
--- NOTE | 2019-08-02 12:52 | P.PN ---
Subjective Progress Note Date: 08/02/19 Principal diagnosis: Acute staphylococcal pneumonia with sepsis and the patient is currently covered with cefazolin, and MSSA bacteremia. The patient has bilateral lower lobe pneumo rod is most on the left. history of stenotrophomonas maltophilia in the sputum cultures and bronchial lavage cultures, which was multidrug resistant 89-year-old white male patient of Dr. Dozier, with past medical history of hypertension, hyperlipidemia, diabetes, GERD, chronic cough, recurrent pulmonary infections requiring bronchoalveolar lavage with peripheral cultures positive for stenotrophomonas maltophilia resistant to Levaquin, ceftazidime, and Bactrim. Patient also had an episode of ARDS in 2018, gout, esophageal cancer with 28 previous radiation treatments and chemotherapy completed in August 2017. Patient was recently hospitalized for tracheobronchitis, with sputum cultures p ositive for Stenotrophomonas maltophilia. Per ID service and no antibiotics were recommended. Patient was discharged to the [facility] in stable medical condition. Apparently early this morning on 07/29/2019 staff at the [facility] found the patient short of breath, coughing, congested and confused. He was bringing up large amount of phlegm is quite thick and brown in color. Emergency department chest x-ray showed small amount of airspace opacities and bilateral lower lungs, there was felt to be related to atelectasis, hypoventilation rather than pneumonia. I am work showed white blood count of 4.0, hemoglobin of 13.3, platelet count of 88, INR was 0.9, electrolytes were within normal limits, BUN was 15 creatinine 0.74. ProBNP was 354, troponin was 0.068, urinalysis showed moderate amount of blood, but no evidence of infection, influenza screen was negative. Patient was febrile with a temp of 100.4F. Started on Zithromax and Rocephin, was given a dose of tigecycline. He is currently resting comfortably on the stretcher in the emergency department, in no acute distress, pulse ox is 99% on 2 L, vital signs are stable, low-grade fever 99.0F, in sinus mechanism with a controlled rate. No complaints of chest pain, his mentation is improving, he is answering questions appropriately. On 08/02/2019 patient seen in follow-up on selective care unit, he is awake and alert, oriented 3, no altered mentation, vital signs are stable, afebrile, room air pulse ox of the 100%, less congested, occasional cough with production of small amount of tannish colored phlegm, much dictaphone mechanic compared to admission, no complaints of chest pain. Patient remains on IV cefazolin for MSSA bacteremia, ID service is following, follow blood cultures have shown no growth so far. Last chest x-ray on 07/31/2019 showed improving changes of congestive heart failure and a small bilateral pleural effusions. Left basilar airspace disease was improving. We spoke to infectious disease service yesterday and Dr. Nur did not feel the need for stenotrophomonas coverage at this time, patient did receive 2 doses of tigecycline on admission, clinically he is improving. Remains very generally weak, he takes 2 people to get him up out of the chair, and ambulate. The recommendation from ID service was for 2 weeks IV cefazolin from his negative blood cultures. Objective - Vital Signs Vital signs: Vital Signs Temp 97.3 F L 08/02/19 11:24 Pulse 101 H 08/02/19 11:24 Resp 18 08/02/19 11:24 BP 135/65 08/02/19 11:24 Pulse Ox 100 08/02/19 11:24 Intake & Output 08/01/19 08/02/19 08/02/19 18:59 06:59 18:59 Intake Total 1077 490 580 Output Total 1800 1000 Balance -723 490 -420 Weight 111 kg Intake: Intake, IV Titration 130 100 Amount Sodium Chloride 0.9% 1, 80 000 ml @ 20 mls/hr IV . Q24H MELVA Rx#:[id number] ceFAZolin 2 gm In Sodium 50 100 Chloride 0.9% 50 ml @ 100 mls/hr IVPB Q8HR MELVA Rx# :[id number] Oral 1077 360 480 Output: Urine 1800 1000 Other: Voiding Method Indwelling Catheter Indwelling Catheter Indwelling Catheter # Voids 0 - Exam GENERAL EXAM: Alert, very pleasant 84-year-old white male, would room air pulse ox of 100%, in no acute distress, patient has the Cushingoid features with valencia facies and redness involving his face, comfortable in no apparent distress. HEAD: Normocephalic/atraumatic. EYES: Normal reaction of pupils, equal size. Conjunctiva pink, sclera white. NOSE: Clear with pink turbinates. THROAT: No erythema or exudates. NECK: No masses, no JVD, no thyroid enlargement, no adenopathy. CHEST: No chest wall deformity. Symmetrical expansion. LUNGS: Equal air entry with no crackles, wheeze, rhonchi or dullness. CVS: Regular rate and rhythm, normal S1 and S2, no gallops, no murmurs, no rubs ABDOMEN: Soft, nontender. No hepatosplenomegaly, normal bowel sounds, no guarding or rigidity. EXTREMITIES: No clubbing, 1+ pitting edema in bilateral lower extremities, no cyanosis, 2+ pulses and upper and lower extremities. MUSCULOSKELETAL: Muscle strength and tone normal. SPINE: No scoliosis or deformity SKIN: No rashes CENTRAL NERVOUS SYSTEM: Alert and oriented -3. No focal deficits, tone is normal in all 4 extremities. PSYCHIATRIC: Alert and oriented -3. Appropriate affect. Intact judgment and insight. - Labs CBC & Chem 7: 08/01/19 06:21 08/01/19 06:21 Labs: Abnormal Lab Results - Last 24 Hours (Table) 08/01/19 08/01/19 08/01/19 Range/Units 16:35 20:26 22:44 POC Glucose (mg/dL) 316 H 504 H 298 H (75-99) mg/dL 08/02/19 08/02/19 Range/Units 05:14 12:01 POC Glucose (mg/dL) 163 H 222 H (75-99) mg/dL Microbiology - Last 24 Hours (Table) 08/01/19 06:21 Blood Culture - Preliminary Blood No Growth after 24 hours 07/31/19 05:20 Blood Culture - Preliminary Blood No Growth after 48 hours 07/30/19 05:34 Blood Culture Gram Stain - Final Blood Blood Culture - Final Staphylococcus aureus 07/29/19 15:23 Gram Stain - Final Sputum Sputum Culture - Final Staphylococcus aureus Stenotrophomonas maltophilia Assessment and Plan Plan: Assessment: #1. Acute on chronic dyspnea, related to bibasilar pneumonia, left greater than right related to MSSA. Patient's previous sputum cultures and bronchial lavage cultureswere also positive for stenotrophomonas #2. MSSA bacteremia related to pneumonia #3. Recent hospitalization for tracheobronchitis with sputum culture positive for stenotrophomonas maltophilia multidrug resistant, including Levaquin, ceftazidime, and Bactrim #4. Altered mentation at the ECF at the time of symptom onset with coughing, confusion, and chest congestion, improved #5. Plasma lactic acidosis, possibly related to sepsis, improved with hydration #6. Elevated troponins, possibly related to sepsis #7. Recurrent pulmonary infections related to Stenotrophomonas maltophilia, according bronchoscopy with bronchoalveolar lavage #8. History of acute lung injury/ARDS in January 2018 #9. History of esophageal cancer status post resection and subsequent radiofreq uency ablation at [facility] in November 2012 with recurrence and chemoradiation in 2018 completed 09/02/2017 #10. Obesity #11. Hypertension #12. Hyperlipidemia #13. Gout #14. Lifelong nonsmoker with normal pulmonary function testing #15. History of chronic kidney disease #16. History of left carotid occlusion Plan: Clinically patient is improving, less congested, less dyspneic, no altered mentation, he is on room air, maintaining stable oxygenation, his been afebrile, his follow-up blood cultures have been negative, continue with ID service recommendations for antibiotic coverage. No acute issues overnight, increase activity as tolerated, discharge planning is in progress for discharge to ECF. Pulmonary perspective patient is stable, he has improved, he can be considered for discharge back to the ECF once the arrangements are complete for Accu-cath, and antibiotics. We discussed the case with ID service, and they do not feel that patient needs coverage for history of previous Stenotrophomonas maltophilia infection at this time. I performed a history & physical examination of the patient and discussed their management with my nurse practitioner, Shae Freeman. I reviewed the nurse practitioner's note and agree with the documented findings and plan of care. Lung sounds are positive for diminished sounds. The findings and the impression was discussed with the patient. I attest to the documentation by the nurse practitioner. Time with Patient: Less than 30
--- NOTE | 2019-08-02 14:35 | P.PN ---
Subjective Progress Note Date: 08/02/19 This is a pleasant 84-year-old male past medical history significant for hypertension, dyslipidemia, diabetes mellitus, esophageal cancer, Hernandez's esophagus and peripheral vascular disease. He denies prior history of coronary artery disease. We have been asked to see in consultation for elevated troponin and shortness of breath. He follows in the office with Dr. Albrecht. Patient was initiated on IV Lasix, he's been diuresing well. Chest x-ray from yesterday did show improvement in heart failure. White blood cell count 3.2, hemoglobin 12.0, platelet count 96. Sodium 138, potassium 4.2, BUN 22, creatinine 0.9. 08/02/2019 Patient seen and examined this morning, hitting up in his chair at bedside, continues to diurese well on IV Lasix. He is quite frustrated however that he h as not found much. We will have physical therapy work with him. Blood pressure 134/60 with a heart rate in the 80s, 100% on room air. Objective - Vital Signs Vital signs: Vital Signs Temp 97.3 F L 08/02/19 11:24 Pulse 80 08/02/19 12:52 Resp 18 08/02/19 11:24 BP 135/65 08/02/19 11:24 Pulse Ox 100 08/02/19 11:24 Intake & Output 08/01/19 08/02/19 08/02/19 18:59 06:59 18:59 Intake Total 1077 490 580 Output Total 1800 1000 Balance -723 490 -420 Weight 111 kg Intake: Intake, IV Titration 130 100 Amount Sodium Chloride 0.9% 1, 80 000 ml @ 20 mls/hr IV . Q24H MELVA Rx#:[id number] ceFAZolin 2 gm In Sodium 50 100 Chloride 0.9% 50 ml @ 100 mls/hr IVPB Q8HR MELVA Rx# :[id number] Oral 1077 360 480 Output: Urine 1800 1000 Other: Voiding Method Indwelling Catheter Indwelling Catheter Indwelling Catheter # Voids 0 - Exam PHYSICAL EXAMINATION CONSTITUTIONAL: No apparent distress. HEENT: Head is normocephalic. Pupils are equal, round. Sclerae anicteric. Mucous membranes of the mouth are moist. No JVD. No carotid bruit. CHEST EXAMINATION: Lungs are clear to auscultation. No chest wall tenderness is noted on palpation or with deep breathing. HEART EXAMINATION: Regular rate and rhythm. S1, S2 heard. Systolic ejection murmur at the base and left sternal border, no gallops or rub. EXTREMITIES: 2+ peripheral pulses, significant bilateral lower extremity 2-3+ pitting edema and no calf tenderness. - Labs CBC & Chem 7: 08/01/19 06:21 08/01/19 06:21 Labs: Abnormal Lab Results - Last 24 Hours (Table) 08/01/19 08/01/19 08/01/19 Range/Units 16:35 20:26 22:44 POC Glucose (mg/dL) 316 H 504 H 298 H (75-99) mg/dL 08/02/19 08/02/19 Range/Units 05:14 12:01 POC Glucose (mg/dL) 163 H 222 H (75-99) mg/dL Microbiology - Last 24 Hours (Table) 08/01/19 06:21 Blood Culture - Preliminary Blood No Growth after 24 hours 07/31/19 05:20 Blood Culture - Preliminary Blood No Growth after 48 hours 07/30/19 05:34 Blood Culture Gram Stain - Final Blood Blood Culture - Final Staphylococcus aureus 07/29/19 15:23 Gram Stain - Final Sputum Sputum Culture - Final Staphylococcus aureus Stenotrophomonas maltophilia Assessment and Plan Plan: ASSESSMENT and plan #1 Acute diastolic heart failure #2 Abnormal troponin secondary to sepsis #3 Pneumonia #4 Sepsis #5 Lactic acidosis #6 Valvular heart disease, moderate aortic stenosis #7 Diabetes mellitus #8 Hypertension #9 Dyslipidemia #History of esophageal cancer status post chemotherapy and radiation Plan We will continue current dose of IV Lasix for 24 hours, check lytes BUN creatinine and daily weights. DNP note has been reviewed, I agree with a documented findings and plan of care. Patient was seen and examined.
--- NOTE | 2019-08-02 15:22 | P.PN ---
Subjective Progress Note Date: 08/02/19 Principal diagnosis: This is an 84-year-old male who was recently admitted with multiple medical problems also has MSSA sepsis and is being closely monitored. Patient is maintained on IV cefazolin and will continue at this time. Multiple consultations are following. Patient is awaiting to receive a midline for continued IV antibiotic therapy at the [facility] facility due to bacteremia. Most recent blood cultures have been negative. Awaiting for finalization. Patient continues to be short of breath with exertion and quite weak but states his breathing has gotten slightly better. No reports of chest pain or palpitations. Patient has been afebrile. Patient's blood sugars continue to fluctuate and is being closely monitored at this time. Will continue sliding scale along with long-acting insulin at night. Objective - Vital Signs Vital signs: Vital Signs Temp 97.3 F L 08/02/19 11:24 Pulse 80 08/02/19 12:52 Resp 18 08/02/19 11:24 BP 135/65 08/02/19 11:24 Pulse Ox 100 08/02/19 11:24 Intake & Output 08/01/19 08/02/19 08/02/19 18:59 06:59 18:59 Intake Total 1077 490 580 Output Total 1800 1000 Balance -723 490 -420 Weight 111 kg Intake: Intake, IV Titration 130 100 Amount Sodium Chloride 0.9% 1, 80 000 ml @ 20 mls/hr IV . Q24H MELVA Rx#:[id number] ceFAZolin 2 gm In Sodium 50 100 Chloride 0.9% 50 ml @ 100 mls/hr IVPB Q8HR [facility]ELVA Rx# :[id number] Oral 1077 360 480 Output: Urine 1800 1000 Other: Voiding Method Indwelling Catheter Indwelling Catheter Indwelling Catheter # Voids 0 - Exam Gen: This is a 84-year-old male sitting up in the chair awake, alert and oriented 3, well-developed, well-nourished. HEENT: Head is atraumatic, normocephalic. Pupils equal, round. Sclerae is anicteric. NECK: Supple. No JVD. No lymphadenopathy. No thyromegaly. LUNGS: Diminished breath sounds at the bases with a few scattered rhonchi and crackles noted. No intercostal retractions. HEART: S1, S2 are muffled. ABDOMEN: Soft. Bowel sounds are present. No masses. No tenderness. EXTREMITIES: No pedal edema. No calf tenderness. NEUROLOGICAL: Patient is awake, alert and oriented x3. Cranial nerves 2 through 12 are grossly intact. Diffusely weak - Labs CBC & Chem 7: 08/01/19 06:21 08/01/19 06:21 Labs: Abnormal Lab Results - Last 24 Hours (Table) 08/01/19 08/01/19 08/01/19 Range/Units 16:35 20:26 22:44 POC Glucose (mg/dL) 316 H 504 H 298 H (75-99) mg/dL 08/02/19 08/02/19 Range/Units 05:14 12:01 POC Glucose (mg/dL) 163 H 222 H (75-99) mg/dL Microbiology - Last 24 Hours (Table) 08/01/19 06:21 Blood Culture - Preliminary Blood No Growth after 24 hours 07/31/19 05:20 Blood Culture - Preliminary Blood No Growth after 48 hours 07/30/19 05:34 Blood Culture Gram Stain - Final Blood Blood Culture - Final Staphylococcus aureus Assessment and Plan Assessment: Acute bilateral pneumonia possibly gram-negative possibly hospital-acquired p neumonia with failure of outpatient treatment with acute sepsis, severe sepsis, hypotension, septic shock, present on admission MSSA sepsis History of stenotrophomonas maltophilia from the sputum culture Tachycardia, present on admission History of recent pneumonia History of interstitial lung disease, undetermined etiology with some bronchiectasis of the lower lobes Stenotrophomonas maltophilia resistant from the recent cultures Diabetes mellitus type 2 Troponin 0.06 indeterminate Change in mental status, metabolic encephalopathy, multifactorial Gastroesophageal reflux disease hard of hearing Hypertension Hyperlipidemia history of memory impairment History of degenerative joint disease History of pneumonia History of renal disease History of fracture L2 through L4 with bilateral leg pain History of gout history of Hernandez's esophagus History of esophageal carcinoma status post radiation and chemo history of hiatal hernia History of pneumonia history of peripheral neuropathy History of stomach ulcer history of carotid stenosis History of shingles History of appendectomy history of back surgery History of bilateral rotator cuff surgery Obesity with body mass index of 32.1 Recommendations and discussion: Recommend to continue current medications, management, and symptomatic treatm ent. Continue with IV cefazolin at this time. Infectious disease is following. Patient awaiting to receive a midline for continue IV antibiotics therapy at the [facility] once patient is stabilized for discharge. Most recent blood cultures remain negative and awaiting for finalization. Due to multiple complex medical issues, prognosis is guarded. Further recommendations to follow. Will continue to monitor closely. Possible discharge in 24-48 hours to [facility].
[2019-08-02 15:32] LABS: Calcium 8.7 mg/dL (8.4-10.2); Potassium 5.1 mmol/L (3.5-5.1)
[2019-08-02 17:13] LABS: Glucose,Whole Blood 396 mg/dL (75-99)
[2019-08-02 20:44] LABS: Glucose,Whole Blood 448 mg/dL (75-99)
[2019-08-02] MEDS: FLUCONAZOLE 100 MG TAB PO SCH (21:10)
[2019-08-02] MEDS: FLUTICASONE 50MCG/SPRAY NASAL 16GM EA NOSTRIL SCH (21:10)
[2019-08-02] MEDS: ZOLPIDEM 10 MG TAB PO SCH (23:00)
[2019-08-02] MEDS: SODIUM CHLORIDE 0.9% 1,000 ML IV SCH (23:03)
[2019-08-02] MEDS: PRAVASTATIN SODIUM 80 MG TAB PO SCH (23:08)
[2019-08-03] MEDS: IPRATROPIUM-ALBUTEROL 3 ML NEB INHALATION SCH ×4 (04:00→20:19)
--- NOTE | 2019-08-03 05:07 | PN ---
PROGRESS NOTE DATE OF SERVICE: 08/02/2019 REASON FOR FOLLOWUP: MSSA bacteremia pneumonia. INTERVAL HISTORY: The patient is currently afebrile. He is breathing more comfortably. He continued to have a cough which has been mostly dry in nature. No chest pain. No nausea, no vomiting. No abdominal pain. No diarrhea. PHYSICAL EXAMINATION: On examination, blood pressure 20845 with a pulse of 93, temperature 98. He is 98% on room air. General description is an elderly male up in the chair in no distress. RESPIRATORY SYSTEM: Unlabored breathing. Decreased breath sounds at the bases. No wheeze. HEART: S1, S2. Regular rate and rhythm. ABDOMEN: Soft, no tenderness. LABS: BUN of 26, creatinine 0.97. Blood cultures 07/31 and 08/01 has been negative. DIAGNOSTIC IMPRESSION AND PLAN: Patient with MSSA bacteremia source is pneumonia clinically responded to cefazolin. Patient's follow up blood cultures have been negative. Will be able to get Midline and continue cefazolin 2 grams q.8 hours for at least 2 more weeks. Will monitor clinical course closely. Continue supportive care. MMODL / IJN: [id number] /
[2019-08-03 06:21] LABS: Calcium 8.7 mg/dL (8.4-10.2); Potassium 4.1 mmol/L (3.5-5.1)
[2019-08-03 06:25] LABS: Glucose,Whole Blood 156 mg/dL (75-99)
[2019-08-03] MEDS: INSULIN ASPART (NovoLOG) 100 UNIT/ML VIAL SQ SCH ×4 (06:52→21:03)
[2019-08-03] MEDS: INSULIN DETEMIR (LEVEMIR) 100 UNIT/ML SYR SQ SCH ×2 (06:52→22:03)
[2019-08-03] MEDS: PANTOPRAZOLE 40 MG TABLET PO SCH (06:56)
[2019-08-03] MEDS: BUDESONIDE 1 MG/2 ML NEBU INHALATION SCH ×2 (08:25→20:19)
[2019-08-03] MEDS: FORMOTEROL FUMARATE 20 MCG/2 ML NEBU INHALATION SCH ×2 (08:25→20:20)
[2019-08-03] MEDS: POTASSIUM CHLORIDE ER 20 MEQ TAB.ER PO SCH ×2 (08:27→21:03)
[2019-08-03] MEDS: METOPROLOL TARTRATE 50 MG TAB PO SCH (08:28)
[2019-08-03] MEDS: GABAPENTIN 300 MG CAP PO SCH ×3 (08:28→21:04)
[2019-08-03] MEDS: LORATADINE 10 MG TAB PO SCH (08:28)
[2019-08-03] MEDS: predniSONE 10 MG TAB PO SCH (08:29)
[2019-08-03] MEDS: guaiFENesin-DM 100-10MG/5ML 10 ML CUP PO SCH ×2 (08:30→21:03)
[2019-08-03] MEDS: FUROSEMIDE 10 MG/ML 4 ML VIAL IV SCH ×2 (08:30→21:03)
--- NOTE | 2019-08-03 11:13 | PN ---
PROGRESS NOTE DATE OF SERVICE: 08/03/2019 REASON FOR FOLLOWUP: MSSA bacteremia and pneumonia. INTERVAL HISTORY: The patient is currently afebrile, has been breathing comfortably on room air. The patient denies having any chest pain, minimal cough. No nausea, no vomiting. No abdominal pain, no diarrhea. PHYSICAL EXAMINATION: Blood pressure 126/68 with a pulse of 86, temperature 97.7. He is 96% on room air. General description is an elderly male lying in bed in no distress. RESPIRATORY SYSTEM: Unlabored breathing, decreased intensity of breath sounds, no wheeze. HEART: S1, S2. Regular rate and rhythm. ABDOMEN: Soft, no tenderness. LABS: BUN of 23, creatinine 0.92. Blood culture on 07/31 and 08/01 have been negative. DIAGNOSTIC IMPRESSION AND PLAN: Patient with MSSA bacteremia, source is pneumonia. Patient shows overall clinical improvement as well as resolution. Will continue for 2 weeks of cefazolin with close outpatient followup. Continue supportive care. MMODL / IJN: [id number] / MTDD
[2019-08-03 11:40] VITALS: BMI 37.4
--- NOTE | 2019-08-03 12:16 | P.DS ---
Providers Date of admission: 07/29/19 06:42 Expected date of discharge: 08/03/19 Attending physician: Bear Sampson Consults: 07/29/19 06:38 Consult Physician Routine Consulting Provider: Neftaly Nur Consult Reason/Comments: recent pneumonia, fever, lactic acidosis Do you want consulting provider notified?: Yes, Notify in am 07/29/19 09:56 Consult Physician Routine Consulting Provider: Cameron Akhtar Consult Reason/Comments: SOB Do you want consulting provider notified?: Yes 07/29/19 09:58 Consult Physician Routine Consulting Provider: Jose Francisco Smith Consult Reason/Comments: elevated troponin SOB Do you want consulting provider notified?: Yes [facility] Course: Final diagnosis Acute bilateral pneumonia possibly gram-negative possibly hospital-acquired pneumonia with failure of outpatient treatment with acute sepsis, severe sepsis, hypotension, septic shock, present on admission MSSA sepsis History of stenotrophomonas maltophilia from the sputum culture Tachycardia, present on admission History of recent pneumonia History of interstitial lung disease, undetermined etiology with some bronchiectasis of the lower lobes Stenotrophomonas maltophilia resistant from the recent cultures Diabetes mellitus type 2 Troponin 0.06 indeterminate Change in mental status, metabolic encephalopathy, multifactorial Gastroesophageal reflux disease hard of hearing Hypertension Hyperlipidemia history of memory impairment History of degenerative joint disease History of pneumonia History of renal disease History of fracture L2 through L4 with bilateral leg pain History of gout history of Hernandez's esophagus History of esophageal carcinoma status post radiation and chemo history of hiatal hernia History of pneumonia history of peripheral neuropathy History of stomach ulcer history of carotid stenosis History of shingles History of appendectomy history of back surgery History of bilateral rotator cuff surgery Obesity with body mass index of 32.1 Discharge disposition Patient is being discharged in a stable condition with guarded prognosis to [facility] for continued PT/OT therapy along with IV antibiotics. Kendra ent will continue with IV antibiotics in the form of cefazolin for the next 2 weeks. Total time taken is 35 minutes. History of present illness This is an 84-year-old male who was recently admitted with multiple medical problems also was found to have MSSA with sepsis and is being closely monitored. Patient's blood cultures continued to show bacteremia and the most recent blood cultures from the and have been negative. Patient was seen and evaluated by infectious disease and willl continue with IV antibiotics in the form of cefazolin every 8 hours for the next 2 weeks. Patient will also continue on oral Diflucan in the outpatient setting. Currently no reports of chest pain, palpitations, or worsening shortness of breath. Patient is afebrile. No reports of nausea or vomiting and patient is tolerating diet. Patient continues with an indwelling Martinez catheter as he continues to be quite weak and unable to get up and make it to the bathroom. Patient will continue with PT/OT at the [facility]. Currently patient's condition is stable and is ready for discharge today. On exam vital signs are stable. Temp is 97F, pulse is 73, respirations are 19, blood pressure is 105/56, oxygen saturation is 96% on room air. Cardio S1, S2 are muffled. Respiratory system shows diminished breath sounds at the bases with a few scattered rhonchi noted. Abdomen is soft, obese, nontender. Nervous system shows mild diffuse weakness. Please refer to medication reconciliation sheet for a list of medications. Patient Condition at Discharge: Fair Plan - Discharge Summary New Discharge Prescriptions: New Cefazolin Sodium/D5w [Kefzol 2 Gm/D5w 100 ml] 2 gm IV Q8H #42 plast..bag Metoprolol Tartrate [Lopressor] 50 mg PO DAILY tab Acetaminophen Tab [Tylenol] 650 mg PO Q4HR PRN tab PRN Reason: Fever And/ Or Pain Continue Nitroglycerin Sl Tabs [Nitrostat] 0.4 mg SUBLINGUAL Q5M PRN PRN Reason: Chest Pain Cetirizine HCl 10 mg PO DAILY Pravastatin Sodium [Pravachol] 80 mg PO HS@2000 Allopurinol [Zyloprim] 300 mg PO DAILY Ipratropium-Albuterol Nebulize [Duoneb 0.5 mg-3 mg/3 ml Soln] 3 ml INHALATION RT-Q6H Insulin Glargine,Hum.rec.anlog [Lantus Solostar] 12 unit SQ BID Fluticasone Nasal Many [Flonase Nasal Many] 2 spray EA NOSTRIL HS@2000 Bisacodyl [Dulcolax] 10 mg PO DAILY PRN tablet. PRN Reason: Constipation Furosemide [Lasix] 40 mg PO DAILY tab Formoterol Fumarate [Perforomist] 20 mcg INHALATION RT-BID nebu Pantoprazole [Protonix] 40 mg PO AC-BRKFST tablet. Budesonide [Pulmicort] 1 mg INHALATION RT-BID ml guaiFENesin-DM 100-10MG/5ML [Robitussin DM] 5 ml PO BID ml Bisacodyl 10 mg PO DAILY PRN PRN Reason: Constipation Fluconazole [Diflucan] 100 mg PO HS@1999 INSULIN ASPART (NovoLOG) [NovoLOG (formulary)] See Protocol SQ ACHS Potassium Chloride ER [K-Dur 20] 20 meq PO BID predniSONE See Taper PO DAILY Torsemide [Demadex] 100 mg PO DAILY Ipratropium-Albuterol Nebulize [Duoneb 0.5 mg-3 mg/3 ml Soln] 3 ml INHALATION RT-Q4H PRN PRN Reason: Shortness Of Breath Or Wheezing Zolpidem [Ambien] 10 mg PO HS@1999 #1 tab Gabapentin [Neurontin] 1,200 mg PO HS@2199 #1 cap Gabapentin [Neurontin] 600 mg PO BID #2 cap Discontinued Aspirin EC [Ecotrin Low Dose] 81 mg PO HS Acetaminophen Tab [Tylenol] 500 mg PO Q6HR PRN tab PRN Reason: Fever And/ Or Pain Discharge Medication List Cetirizine HCl 10 mg PO DAILY 07/05/15 [History] Nitroglycerin Sl Tabs [Nitrostat] 0.4 mg SUBLINGUAL Q5M PRN 07/05/15 [History] Pravastatin Sodium [Pravachol] 80 mg PO HS@199909/01/17 [History] Allopurinol [Zyloprim] 300 mg PO DAILY 01/26/18 [History] Ipratropium-Albuterol Nebulize [Duoneb 0.5 mg-3 mg/3 ml Soln] 3 ml INHALATION RT-Q6H 04/22/19 [History] Insulin Glargine,Hum.rec.anlog [Lantus Solostar] 12 unit SQ BID 07/12/19 [ History] Fluticasone Nasal Many [Flonase Nasal Many] 2 spray EA NOSTRIL HS@199907/14/19 [History] Bisacodyl [Dulcolax] 10 mg PO DAILY PRN tablet. 07/25/19 [Rx] Budesonide [Pulmicort] 1 mg INHALATION RT-BID ml 07/25/19 [Rx] Formoterol Fumarate [Perforomist] 20 mcg INHALATION RT-BID nebu 07/25/19 [Rx] Furosemide [Lasix] 40 mg PO DAILY tab 07/25/19 [Rx] Pantoprazole [Protonix] 40 mg PO AC-BRKFST tablet. 07/25/19 [Rx] guaiFENesin-DM 100-10MG/5ML [Robitussin DM] 5 ml PO BID ml 07/25/19 [Rx] Bisacodyl 10 mg PO DAILY PRN 07/29/19 [History] Fluconazole [Diflucan] 100 mg PO HS@199907/29/19 [History] INSULIN ASPART (NovoLOG) [NovoLOG (formulary)] See Protocol SQ ACHS 07/29/19 [History] Ipratropium-Albuterol Nebulize [Duoneb 0.5 mg-3 mg/3 ml Soln] 3 ml INHALATION RT-Q4H PRN 07/29/19 [History] Potassium Chloride ER [K-Dur 20] 20 meq PO BID 07/29/19 [History] Torsemide [Demadex] 100 mg PO DAILY 07/29/19 [History] predniSONE See Taper PO DAILY 07/29/19 [History] Acetaminophen Tab [Tylenol] 650 mg PO Q4HR PRN tab 08/03/19 [Rx] Cefazolin Sodium/D5w [Kefzol 2 Gm/D5w 100 ml] 2 gm IV Q8H #42 plast..bag 08/03/19 [Rx] Gabapentin [Neurontin] 1,200 mg PO HS@2199 #1 cap 08/03/19 [Rx] Gabapentin [Neurontin] 600 mg PO BID #2 cap 08/03/19 [Rx] Metoprolol Tartrate [Lopressor] 50 mg PO DAILY tab 08/03/19 [Rx] Zolpidem [Ambien] 10 mg PO HS@1999 #1 tab 08/03/19 [Rx] Follow up Appointment(s)/Referral(s): Sumit Dozier DO [Primary Care Provider] - 1-2 days eNftaly Nru MD [STAFF PHYSICIAN] - 1 Week Activity/Diet/Wound Care/Special Instructions: [facility] Cepzolin [id number] via midline Activity as tolerated Continue current diet Continue to monitor blood sugars before meals at bedtime and treat accordingly with sliding scale along with long-acting insulin Continue working with PT/OT Discharge Disposition: TRANSFER TO SNF/ECF
[2019-08-03 12:38] LABS: Glucose,Whole Blood 442 mg/dL (75-99)
[2019-08-03] MEDS: SODIUM CHLORIDE 0.9% 1,000 ML IV SCH (12:40)
--- NOTE | 2019-08-03 14:47 | P.PN ---
Subjective Progress Note Date: 08/03/19 This is a pleasant 84-year-old male past medical history significant for hypertension, dyslipidemia, diabetes mellitus, esophageal cancer, Hernandez's esophagus and peripheral vascular disease. He denies prior history of coronary artery disease. We have been asked to see in consultation for elevated troponin and shortness of breath. He follows in the office with Dr. Albrecht. Patient was initiated on IV Lasix, he's been diuresing well. Chest x-ray from yesterday did show improvement in heart failure. White blood cell count 3.2, hemoglobin 12.0, platelet count 96. Sodium 138, potassium 4.2, BUN 22, creatinine 0.9. 08/02/2019 Patient seen and examined this morning, hitting up in his chair at bedside, continues to diurese well on IV Lasix. He is quite frustrated however that he h as not found much. We will have physical therapy work with him. Blood pressure 134/60 with a heart rate in the 80s, 100% on room air. 08/03/2019 Patient seen and examined this morning, continues to diurese well, continues to have 2+ bilateral peripheral edema, overall the patient is improving on a daily basis. Physical therapy was in with him today assisting with ambulation. Blood pressure 105/50 with a heart rate of 90, 96% on room air. Sodium 136, potassium 4.1, BUN 23, creatinine 0.9. Objective - Vital Signs Vital signs: Vital Signs Temp 97.0 F L 08/03/19 11:59 Pulse 92 08/03/19 13:05 Resp 19 08/03/19 11:59 BP 105/56 08/03/19 11:59 Pulse Ox 96 08/03/19 11:59 Intake & Output 08/02/19 08/03/19 08/03/19 18:59 06:59 18:59 Intake Total 940 140 720 Output Total 1000 2200 Balance - 720 Weight 110 kg 110 kg Intake: Intake, IV Titration 100 140 Amount Sodium Chloride 0.9% 1, 140 000 ml @ 20 mls/hr IV . Q24H MELVA Rx#:[id number] ceFAZolin 2 gm In Sodium 100 Chloride 0.9% 50 ml @ 100 mls/hr IVPB Q8HR MELVA Rx# :[id number] Oral 840 720 Output: Urine 1000 2200 Other: Voiding Method Indwelling Catheter Indwelling Catheter Indwelling Catheter - Exam PHYSICAL EXAMINATION CONSTITUTIONAL: No apparent distress. HEENT: Head is normocephalic. Pupils are equal, round. Sclerae anicteric. Mucous membranes of the mouth are moist. No JVD. No carotid bruit. CHEST EXAMINATION: Lungs are clear to auscultation. No chest wall tenderness is noted on palpation or with deep breathing. HEART EXAMINATION: Regular rate and rhythm. S1, S2 heard. Systolic ejection murmur at the base and left sternal border, no gallops or rub. EXTREMITIES: 2+ peripheral pulses, significant bilateral lower extremity 2-3+ pitting edema and no calf tenderness. - Labs CBC & Chem 7: 08/01/19 06:21 08/03/19 05:47 Labs: Abnormal Lab Results - Last 24 Hours (Table) 08/02/19 08/02/19 08/02/19 Range/Units 14:50 16:58 20:43 Sodium 132 L (137-145) mmol/L Chloride 97 L (98-107) mmol/L BUN 26 H (9-20) mg/dL Glucose 411 H (74-99) mg/dL POC Glucose (mg/dL) 396 H 448 H (75-99) mg/dL 08/03/19 08/03/19 08/03/19 Range/Units 05:47 06:24 12:22 Sodium 136 L (137-145) mmol/L Chloride (98-107) mmol/L BUN 23 H (9-20) mg/dL Glucose 133 H (74-99) mg/dL POC Glucose (mg/dL) 156 H 442 H (75-99) mg/dL Microbiology - Last 24 Hours (Table) 08/01/19 06:21 Blood Culture - Preliminary Blood No Growth after 48 hours 07/31/19 05:20 Blood Culture - Preliminary Blood No Growth after 72 hours Assessment and Plan Plan: ASSESSMENT and plan #1 Acute diastolic heart failure #2 Abnormal troponin secondary to sepsis #3 Pneumonia #4 Sepsis #5 Lactic acidosis #6 Valvular heart disease, moderate aortic stenosis #7 Diabetes mellitus #8 Hypertension #9 Dyslipidemia #History of esophageal cancer status post chemotherapy and radiation Plan We will continue current dose of IV Lasix for 24 hours, check lytes BUN creatinine and daily weights. DNP note has been reviewed, I agree with a documented findings and plan of care. Patient was seen and examined.
--- NOTE | 2019-08-03 15:18 | P.PN ---
Subjective Progress Note Date: 08/03/19 On today's evaluation of 08/03/2019 the patient is coughing less. Less congested. He states that his breathing is improved while on IV Rocephin as the patient is being treated for MSSA pneumonia and bacteremia. My concern was always been stenotrophomonas in his lungs and I discussed the case with inf ectious disease. Unfortunately not a whole lot of options are available for this type of treatment. We'll going to withhold treatment for this gram- negative bacteria for the time being and assess his clinical response as long as is getting better. He was supposed to go to rehab however he felt weak and he had significant edema in his lower extremities bilaterally. He is currently on Lasix and the patient has a Martinez catheter in place. It was decided to keep him in the hospital for more diuresis over the next 24 hours. His net fluid balance is -2.2 L over the past 24 hours. His IV Lasix is being given at a dose of 40 mg every 12 hours. His renal function and the rest of electrolytes were noted. Creatinine is stable. Electrodes are all stable. He is afebrile. He continues to crackles in lung bases bilaterally. Objective - Vital Signs Vital signs: Vital Signs Temp 97.0 F L 08/03/19 11:59 Pulse 92 08/03/19 13:05 Resp 19 08/03/19 11:59 BP 105/56 08/03/19 11:59 Pulse Ox 96 08/03/19 11:59 Intake & Output 08/02/19 08/03/19 08/03/19 18:59 06:59 18:59 Intake Total 940 140 720 Output Total 1000 2200 Balance - 720 Weight 110 kg 110 kg Intake: Intake, IV Titration 100 140 Amount Sodium Chloride 0.9% 1, 140 000 ml @ 20 mls/hr IV . Q24H MELVA Rx#:[id number] ceFAZolin 2 gm In Sodium 100 Chloride 0.9% 50 ml @ 100 mls/hr IVPB Q8HR MELVA Rx# :[id number] Oral 840 720 Output: Urine 1000 2200 Other: Voiding Method Indwelling Catheter Indwelling Catheter Indwelling Catheter - Exam GENERAL EXAM: Alert, pleasant 84-year-old male patient, the patient is on room air oxygen, in no acute distress, comfortable in no apparent distress. HEAD: Normocephalic/atraumatic. EYES: Normal reaction of pupils, equal size. Conjunctiva pink, sclera white. NOSE: Clear with pink turbinates. THROAT: No erythema or exudates. NECK: No masses, no JVD, no thyroid enlargement, no adenopathy. CHEST: No chest wall deformity. Symmetrical expansion. LUNGS: Equal air entry with bilateral scattered rhonchi, crackles in the posterior bases. CVS: Regular rate and rhythm, normal S1 and S2, no gallops, no murmurs, no rubs ABDOMEN: Soft, nontender. No hepatosplenomegaly, normal bowel sounds, no guarding or rigidity. EXTREMITIES: No clubbing, 1+ pitting edema in bilateral lower extremities, no cyanosis, 2+ pulses and upper and lower extremities. MUSCULOSKELETAL: Muscle strength and tone normal. SPINE: No scoliosis or deformity SKIN: No rashes CENTRAL NERVOUS SYSTEM: No focal deficits, tone is normal in all 4 extremities. PSYCHIATRIC: Alert and oriented -3. Appropriate affect. Intact judgment and insight. - Labs CBC & Chem 7: 08/01/19 06:21 08/03/19 05:47 Labs: Abnormal Lab Results - Last 24 Hours (Table) 08/02/19 08/02/19 08/02/19 Range/Units 14:50 16:58 20:43 Sodium 132 L (137-145) mmol/L Chloride 97 L (98-107) mmol/L BUN 26 H (9-20) mg/dL Glucose 411 H (74-99) mg/dL POC Glucose (mg/dL) 396 H 448 H (75-99) mg/dL 08/03/19 08/03/19 08/03/19 Range/Units 05:47 06:24 12:22 Sodium 136 L (137-145) mmol/L Chloride (98-107) mmol/L BUN 23 H (9-20) mg/dL Glucose 133 H (74-99) mg/dL POC Glucose (mg/dL) 156 H 442 H (75-99) mg/dL Microbiology - Last 24 Hours (Table) 08/01/19 06:21 Blood Culture - Preliminary Blood No Growth after 48 hours 07/31/19 05:20 Blood Culture - Preliminary Blood No Growth after 72 hours Assessment and Plan Plan: #1. Acute staphylococcal pneumonia with sepsis and the patient is currently covered with. The patient has bilateral lower lobe pneumonia is most on the left. Nevertheless, the sputum also showed stenotrophomonas which is currently being assumed to be a colonizer by infectious disease. I think we need to give this microorganism a closer attention of the patient has been chronically ill, and symptomatic. Based on this, I had a discussion with infectious disease. Unfortunately the choices of treatment is limited. We'll go in a hole tigecycline for now and proceed with IV Rocephin treating his MSSA pneumonia and bacteremia. He is on room air oxygen for now. His cough is improved. His weak but less short of breath. #2. 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 Altered mentation at the [facility] at the time of symptom onset with coughing, confusion, and chest congestion, improved #4. Plasma lactic acidosis, possibly related to sepsis, improved with hydration #5. Elevated troponins, possibly related to sepsis #6. 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 History of esophageal cancer status post resection and subsequent radiofrequency ablation at [facility] [place] in November 2012 with recurrence and chemoradiation in 2018 completed 09/02/2017 #8. Obesity #9. Hypertension #10. Hyperlipidemia #11. Gout #12. Lifelong nonsmoker with normal pulmonary function testing #13. History of chronic kidney disease, recovered and the patient's renal function is normal. #14. History of left carotid occlusion #15 increased lower extremity edema, with difficulty with mobility due to generalized weakness. #16 valvular heart disease with moderate degree of aortic stenosis and an ejection fraction of 55-60%. The peak gradient across the valve was 41 mmHg no significant pulmonary hypertension. Plan We'll complete 2 week course of Rocephin. We're going to continue the Lasix. Keep the Martinez catheter in place. Monitor the fluid balance. Ultimately plan is to send this patient to rehabilitation and complete outpatient antibiotic course. He has done some progress although has not completely recovered.
--- NOTE | 2019-08-03 15:37 | P.PN ---
Subjective Progress Note Date: 08/03/19 Principal diagnosis: This is an 84-year-old male who was recently admitted with multiple medical problems also has MSSA sepsis and is being closely monitored. Patient is maintained on IV cefazolin and will continue at this time. Multiple consultations are following. Patient is awaiting to receive a midline for continued IV antibiotic therapy at the [facility] facility due to bacteremia. Most recent blood cultures have been negative. Awaiting for finalization. Patient continues to be short of breath with exertion and quite weak but states his breathing has gotten slightly better. No reports of chest pain or palpitations. Patient has been afebrile. Patient's blood sugars continue to fluctuate and is being closely monitored at this time. Will continue sliding scale along with long-acting insulin at night. 08/03/2019 Patient is seen and evaluated in follow-up today currently on room air and states that his breathing has improved. Patient continues with an indwelling Martinez catheter to monitor I&O's along with continued weakness and fatigue with exertion and getting up. PT/OT are following. Patient continues to be maintained on IV Lasix for diuresis and will continue at this time. Patient has received a midline and will continue with IV antibiotics in the form of cefazolin at this time. Infectious disease is following along with other multiple medical consultations. No reports of chest pain or palpitations. No worsening shortness of breath. Patient is afebrile. Most recent blood cultures from the and remain negative thus far. Objective - Vital Signs Vital signs: Vital Signs Temp 97.0 F L 08/03/19 11:59 Pulse 92 08/03/19 13:05 Resp 19 08/03/19 11:59 BP 105/56 08/03/19 11:59 Pulse Ox 96 08/03/19 11:59 Intake & Output 08/02/19 08/03/19 08/03/19 18:59 06:59 18:59 Intake Total 940 140 720 Output Total 1000 2200 Balance 720 Weight 110 kg 110 kg Intake: Intake, IV Titration 100 140 Amount Sodium Chloride 0.9% 1, 140 000 ml @ 20 mls/hr IV . Q24H MELVA Rx#:[id number] ceFAZolin 2 gm In Sodium 100 Chloride 0.9% 50 ml @ 100 mls/hr IVPB Q8HR MELVA Rx# :[id number] Oral 840 720 Output: Urine 1000 2200 Other: Voiding Method Indwelling Catheter Indwelling Catheter Indwelling Catheter - Exam Gen: This is a 84-year-old male sitting up in the chair awake, alert and oriented 3, well-developed, well-nourished. HEENT: Head is atraumatic, normocephalic. Pupils equal, round. Sclerae is anicteric. NECK: Supple. No JVD. No lymphadenopathy. No thyromegaly. LUNGS: Diminished breath sounds at the bases with a few scattered rhonchi and crackles noted. No intercostal retractions. HEART: S1, S2 are muffled. ABDOMEN: Soft. Obese. Bowel sounds are present. No masses. No tenderness. EXTREMITIES: Bilateral lower extremity edema 1-2+ pitting. No calf tenderness. NEUROLOGICAL: Patient is awake, alert and oriented x3. Cranial nerves 2 through 12 are grossly intact. Diffusely weak - Labs CBC & Chem 7: 08/01/19 06:21 08/03/19 05:47 Labs: Abnormal Lab Results - Last 24 Hours (Table) 08/02/19 08/02/19 08/02/19 Range/Units 14:50 16:58 20:43 Sodium 132 L (137-145) mmol/L Chloride 97 L (98-107) mmol/L BUN 26 H (9-20) mg/dL Glucose 411 H (74-99) mg/dL POC Glucose (mg/dL) 396 H 448 H (75-99) mg/dL 08/03/19 08/03/19 08/03/19 Range/Units 05:47 06:24 12:22 Sodium 136 L (137-145) mmol/L Chloride (98-107) mmol/L BUN 23 H (9-20) mg/dL Glucose 133 H (74-99) mg/dL POC Glucose (mg/dL) 156 H 442 H (75-99) mg/dL Microbiology - Last 24 Hours (Table) 08/01/19 06:21 Blood Culture - Preliminary Blood No Growth after 48 hours 07/31/19 05:20 Blood Culture - Preliminary Blood No Growth after 72 hours Assessment and Plan Assessment: Acute bilateral pneumonia possibly gram-negative possibly hospital-acquired pneumonia with failure of outpatient treatment with acute sepsis, severe sepsis, hypotension, septic shock, present on admission MSSA sepsis History of stenotrophomonas maltophilia from the sputum culture Tachycardia, present on admission History of recent pneumonia History of interstitial lung disease, undetermined etiology with some bronchiectasis of the lower lobes Stenotrophomonas maltophilia resistant from the recent cultures Diabetes mellitus type 2 Troponin 0.06 indeterminate Change in mental status, metabolic encephalopathy, multifactorial Gastroesophageal reflux disease hard of hearing Hypertension Hyperlipidemia history of memory impairment History of degenerative joint disease History of pneumonia History of renal disease History of fracture L2 through L4 with bilateral leg pain History of gout history of Hernandez's esophagus History of esophageal carcinoma status post radiation and chemo history of hiatal hernia History of pneumonia history of peripheral neuropathy History of stomach ulcer history of carotid stenosis History of shingles History of appendectomy history of back surgery History of bilateral rotator cuff surgery Obesity with body mass index of 32.1 Recommendations and discussion: Recommend to continue current medications, management, and symptomatic treatment. Continue with IV cefazolin at this time. Infectious disease is following. Patient received a midline for IV antibiotic therapy once stabilized and discharged to the [facility]. Patient will remain on IV Lasix and will continue to monitor vital signs and labs closely. Will repeat a.m. labs. Current creatinine is 0.92. Due to multiple complex medical issues, prognosis is guarded. Further recommendations to follow. Will continue to monitor closely. Possible discharge in 24 hours to [facility].
[2019-08-03 17:54] LABS: Glucose,Whole Blood 292 mg/dL (75-99)
[2019-08-03 20:43] LABS: Glucose,Whole Blood 387 mg/dL (75-99)
[2019-08-03] MEDS: FLUCONAZOLE 100 MG TAB PO SCH (21:02)
[2019-08-03] MEDS: PRAVASTATIN SODIUM 80 MG TAB PO SCH (21:03)
[2019-08-03] MEDS: ZOLPIDEM 10 MG TAB PO SCH (22:03)
[2019-08-03] MEDS: FLUTICASONE 50MCG/SPRAY NASAL 16GM EA NOSTRIL SCH (22:03)
[2019-08-04] MEDS: IPRATROPIUM-ALBUTEROL 3 ML NEB INHALATION SCH ×2 (03:52→08:20)
[2019-08-04 05:51] LABS: Glucose,Whole Blood 203 mg/dL (75-99)
[2019-08-04] MEDS: INSULIN ASPART (NovoLOG) 100 UNIT/ML VIAL SQ SCH ×2 (06:37→11:52)
[2019-08-04] MEDS: INSULIN DETEMIR (LEVEMIR) 100 UNIT/ML SYR SQ SCH (06:37)
[2019-08-04] MEDS: PANTOPRAZOLE 40 MG TABLET PO SCH (06:37)
[2019-08-04 06:39] LABS: Calcium 8.6 mg/dL (8.4-10.2)
[2019-08-04 07:38] VITALS: BP 102/78; RESP 17; TEMP 97.5
[2019-08-04] MEDS: FUROSEMIDE 10 MG/ML 4 ML VIAL IV SCH (07:48)
[2019-08-04] MEDS: guaiFENesin-DM 100-10MG/5ML 10 ML CUP PO SCH (07:48)
[2019-08-04] MEDS: METOPROLOL TARTRATE 50 MG TAB PO SCH (07:49)
[2019-08-04] MEDS: LORATADINE 10 MG TAB PO SCH (07:49)
[2019-08-04] MEDS: predniSONE 10 MG TAB PO SCH (07:49)
[2019-08-04] MEDS: POTASSIUM CHLORIDE ER 20 MEQ TAB.ER PO SCH (07:49)
[2019-08-04] MEDS: GABAPENTIN 300 MG CAP PO SCH (07:49)
[2019-08-04] MEDS: BUDESONIDE 1 MG/2 ML NEBU INHALATION SCH (08:20)
[2019-08-04] MEDS: FORMOTEROL FUMARATE 20 MCG/2 ML NEBU INHALATION SCH (08:20)
[2019-08-04 08:44] VITALS: PULSE 96
--- NOTE | 2019-08-04 11:39 | P.PN ---
Subjective Progress Note Date: 08/04/19 This is a pleasant 84-year-old male past medical history significant for hypertension, dyslipidemia, diabetes mellitus, esophageal cancer, Hernandez's esophagus and peripheral vascular disease. He denies prior history of coronary artery disease. We have been asked to see in consultation for elevated troponin and shortness of breath. He follows in the office with Dr. Albrecht. Patient was initiated on IV Lasix, he's been diuresing well. Chest x-ray from yesterday did show improvement in heart failure. White blood cell count 3.2, hemoglobin 12.0, platelet count 96. Sodium 138, potassium 4.2, BUN 22, creatinine 0.9. 08/02/2019 Patient seen and examined this morning, hitting up in his chair at bedside, continues to diurese well on IV Lasix. He is quite frustrated however that he h as not found much. We will have physical therapy work with him. Blood pressure 134/60 with a heart rate in the 80s, 100% on room air. 08/03/2019 Patient seen and examined this morning, continues to diurese well, continues to have 2+ bilateral peripheral edema, overall the patient is improving on a daily basis. Physical therapy was in with him today assisting with ambulation. Blood pressure 105/50 with a heart rate of 90, 96% on room air. Sodium 136, potassium 4.1, BUN 23, creatinine 0.9. 08/04/2019 Patient seen and examined this morning, continue to diurese well through the night last night. He just feels extremely tired today, he didn't sleep well through the night last night. Blood pressure 102/78 with a heart rate in the 90s, 95% on room air. Sodium 135, potassium 4.0, BUN 19, creatinine 0.9. Objective - Vital Signs Vital signs: Vital Signs Temp 97.5 F L 08/04/19 07:00 Pulse 96 08/04/19 08:44 Resp 17 08/04/19 07:58 BP 102/78 08/04/19 07:00 Pulse Ox 99 08/04/19 08:23 Intake & Output 08/03/19 08/04/19 08/04/19 18:59 06:59 18:59 Intake Total 960 530 447 Output Total 8366 500 Balance 400 -1470 -53 Weight 110 kg 80.4 kg Intake: IV 170 10 Invasive Line 3 10 10 Sodium Chloride 0.9% 1, 160 000 ml @ 20 mls/hr IV . Q24H [facility] Rx#:[id number] Oral 960 360 437 Output: Urine 2000 500 Other: Voiding Method Indwelling Catheter Indwelling Catheter Indwelling Catheter # Bowel Movements 1 - Exam PHYSICAL EXAMINATION CONSTITUTIONAL: No apparent distress. HEENT: Head is normocephalic. Pupils are equal, round. Sclerae anicteric. Mucous membranes of the mouth are moist. No JVD. No carotid bruit. CHEST EXAMINATION: Lungs are clear to auscultation. No chest wall tenderness is noted on palpation or with deep breathing. HEART EXAMINATION: Regular rate and rhythm. S1, S2 heard. Systolic ejection murmur at the base and left sternal border, no gallops or rub. EXTREMITIES: 2+ peripheral pulses, significant bilateral lower extremity 1+ pitting edema and no calf tenderness. - Labs CBC & Chem 7: 08/01/19 06:21 08/04/19 05:56 Labs: Abnormal Lab Results - Last 24 Hours (Table) 08/03/19 08/03/19 08/03/19 Range/Units 12:22 17:32 20:41 Sodium (137-145) mmol/L Glucose (74-99) mg/dL POC Glucose (mg/dL) 442 H 292 H 387 H (75-99) mg/dL 08/04/19 08/04/19 Range/Units 05:50 05:56 Sodium 135 L (137-145) mmol/L Glucose 181 H (74-99) mg/dL POC Glucose (mg/dL) 203 H (75-99) mg/dL Microbiology - Last 24 Hours (Table) 08/01/19 06:21 Blood Culture - Preliminary Blood No Growth after 72 hours 07/31/19 05:20 Blood Culture - Preliminary Blood No Growth after 96 hours Assessment and Plan Plan: ASSESSMENT and plan #1 Acute diastolic heart failure #2 Abnormal troponin secondary to sepsis #3 Pneumonia #4 Sepsis #5 Lactic acidosis #6 Valvular heart disease, moderate aortic stenosis #7 Diabetes mellitus #8 Hypertension #9 Dyslipidemia #History of esophageal cancer status post chemotherapy and radiation Plan From cardiology's perspective, we'll discontinue the IV Lasix today, put the patient back on oral Demadex. He may be able to be transferred to ECF today from our perspective. DNP note has been reviewed, I agree with a documented findings and plan of care. Patient was seen and examined.
[2019-08-04 12:16] LABS: Glucose,Whole Blood 272 mg/dL (75-99)
--- NOTE | 2019-08-04 13:12 | P.DS ---
Providers Date of admission: 07/29/19 06:42 Attending physician: Bear Sampson Consults: 07/29/19 06:38 Consult Physician Routine Consulting Provider: Neftaly Nur Consult Reason/Comments: recent pneumonia, fever, lactic acidosis Do you want consulting provider notified?: Yes, Notify in am 07/29/19 09:56 Consult Physician Routine Consulting Provider: Cameron Akhtar Consult Reason/Comments: SOB Do you want consulting provider notified?: Yes 07/29/19 09:58 Consult Physician Routine Consulting Provider: Jose Francisco Smith Consult Reason/Comments: elevated troponin SOB Do you want consulting provider notified?: Yes [facility] Course: 84-year-old pleasant gentleman was admitted secondary to pneumonia MRSA pneumonia and bacteremia patient is clinically doing well and is being discharged today patient pedal edema improved patient is being discharged on high-dose Demadex please refer to dictation of discharge summary from yesterday from my nurse practitioner for further details patient was seen and examined today still has crackles in the right lower lung nogueira but improved significantly compared to yesterday PHYSICAL EXAMINATION: GENERAL: The patient is alert and oriented x3, not in any acute distress. Well developed, well nourished. HEENT: Pupils are round and equally reacting to light. EOMI. No scleral icterus. No conjunctival pallor. Normocephalic, atraumatic. No pharyngeal erythema. No thyromegaly. CARDIOVASCULAR: S1 and S2 present. No murmurs, rubs, or gallops. PULMONARY: Crackles improved compared to yesterday and right lower lung nogueira ABDOMEN: Soft, nontender, nondistended, normoactive bowel sounds. No palpable organomegaly. MUSCULOSKELETAL: No joint swelling or deformity. EXTREMITIES: No cyanosis, clubbing, or pedal edema. NEUROLOGICAL: Gross neurological examination did not reveal any focal deficits. SKIN: No rashes. Patient Condition at Discharge: Fair Plan - Discharge Summary New Discharge Prescriptions: New Cefazolin Sodium/D5w [Kefzol 2 Gm/D5w 100 ml] 2 gm IV Q8H #42 plast..bag Metoprolol Tartrate [Lopressor] 50 mg PO DAILY tab Acetaminophen Tab [Tylenol] 650 mg PO Q4HR PRN tab PRN Reason: Fever And/ Or Pain Torsemide [Demadex] 100 mg PO DAILY #30 tablet Continue Nitroglycerin Sl Tabs [Nitrostat] 0.4 mg SUBLINGUAL Q5M PRN PRN Reason: Chest Pain Cetirizine HCl 10 mg PO DAILY Pravastatin Sodium [Pravachol] 80 mg PO HS@2000 Allopurinol [Zyloprim] 300 mg PO DAILY Ipratropium-Albuterol Nebulize [Duoneb 0.5 mg-3 mg/3 ml Soln] 3 ml INHALATION RT-Q6H Insulin Glargine,Hum.rec.anlog [Lantus Solostar] 12 unit SQ BID Fluticasone Nasal Dows [Flonase Nasal Dows] 2 spray EA NOSTRIL HS@1999 Bisacodyl [Dulcolax] 10 mg PO DAILY PRN tablet. PRN Reason: Constipation Furosemide [Lasix] 40 mg PO DAILY tab Formoterol Fumarate [Perforomist] 20 mcg INHALATION RT-BID nebu Pantoprazole [Protonix] 40 mg PO AC-BRKFST tablet. Budesonide [Pulmicort] 1 mg INHALATION RT-BID ml guaiFENesin-DM 100-10MG/5ML [Robitussin DM] 5 ml PO BID ml Bisacodyl 10 mg PO DAILY PRN PRN Reason: Constipation Fluconazole [Diflucan] 100 mg PO HS@1999 INSULIN ASPART (NovoLOG) [NovoLOG (formulary)] See Protocol SQ ACHS Potassium Chloride ER [K-Dur 20] 20 meq PO BID predniSONE See Taper PO DAILY Torsemide [Demadex] 100 mg PO DAILY Ipratropium-Albuterol Nebulize [Duoneb 0.5 mg-3 mg/3 ml Soln] 3 ml INHALATION RT-Q4H PRN PRN Reason: Shortness Of Breath Or Wheezing Zolpidem [Ambien] 10 mg PO HS@2000 #1 tab Gabapentin [Neurontin] 1,200 mg PO HS@2199 #1 cap Gabapentin [Neurontin] 600 mg PO BID #2 cap Discontinued Aspirin EC [Ecotrin Low Dose] 81 mg PO HS Acetaminophen Tab [Tylenol] 500 mg PO Q6HR PRN tab PRN Reason: Fever And/ Or Pain Discharge Medication List Cetirizine HCl 10 mg PO DAILY 07/05/15 [History] Nitroglycerin Sl Tabs [Nitrostat] 0.4 mg SUBLINGUAL Q5M PRN 07/05/15 [History] Pravastatin Sodium [Pravachol] 80 mg PO HS@199909/01/17 [History] Allopurinol [Zyloprim] 300 mg PO DAILY 01/26/18 [History] Ipratropium-Albuterol Nebulize [Duoneb 0.5 mg-3 mg/3 ml Soln] 3 ml INHALATION RT-Q6H 04/22/19 [History] Insulin Glargine,Hum.rec.anlog [Lantus Solostar] 12 unit SQ BID 07/12/19 [History] Fluticasone Nasal Dows [Flonase Nasal Dows] 2 spray EA NOSTRIL HS@199907/14/19 [History] Bisacodyl [Dulcolax] 10 mg PO DAILY PRN tablet. 07/25/19 [Rx] Budesonide [Pulmicort] 1 mg INHALATION RT-BID ml 07/25/19 [Rx] Formoterol Fumarate [Perforomist] 20 mcg INHALATION RT-BID nebu 07/25/19 [Rx] Furosemide [Lasix] 40 mg PO DAILY tab 07/25/19 [Rx] Pantoprazole [Protonix] 40 mg PO AC-BRKFST tablet. 07/25/19 [Rx] guaiFENesin-DM 100-10MG/5ML [Robitussin DM] 5 ml PO BID ml 07/25/19 [Rx] Bisacodyl 10 mg PO DAILY PRN 07/29/19 [History] Fluconazole [Diflucan] 100 mg PO HS@199907/29/19 [History] INSULIN ASPART (NovoLOG) [NovoLOG (formulary)] See Protocol SQ ACHS 07/29/19 [History] Ipratropium-Albuterol Nebulize [Duoneb 0.5 mg-3 mg/3 ml Soln] 3 ml INHALATION RT-Q4H PRN 07/29/19 [History] Potassium Chloride ER [K-Dur 20] 20 meq PO BID 07/29/19 [History] Torsemide [Demadex] 100 mg PO DAILY 07/29/19 [History] predniSONE See Taper PO DAILY 07/29/19 [History] Acetaminophen Tab [Tylenol] 650 mg PO Q4HR PRN tab 08/03/19 [Rx] Cefazolin Sodium/D5w [Kefzol 2 Gm/D5w 100 ml] 2 gm IV Q8H #42 plast..bag 08/03/19 [Rx] Gabapentin [Neurontin] 1,200 mg PO HS@0 #1 cap 08/03/19 [Rx] Gabapentin [Neurontin] 600 mg PO BID #2 cap 08/03/19 [Rx] Metoprolol Tartrate [Lopressor] 50 mg PO DAILY tab 08/03/19 [Rx] Zolpidem [Ambien] 10 mg PO HS@1999 #1 tab 08/03/19 [Rx] Torsemide [Demadex] 100 mg PO DAILY #30 tablet 08/04/19 [Rx] Follow up Appointment(s)/Referral(s): Checo Parker MD [STAFF PHYSICIAN] - 1-2 Days Sumit Dozier DO [Primary Care Provider] - 1-2 days Neftaly Nur MD [STAFF PHYSICIAN] - 1 Week Activity/Diet/Wound Care/Special Instructions: Patient is going to [facility] [id number] via midline Activity as tolerated Continue current diet Continue to monitor blood sugars before meals at bedtime and treat accordingly with sliding scale along with long-acting insulin Continue working with PT/OT Discharge Disposition: TRANSFER TO SNF/ECF
[2019-08-04] MEDS: SODIUM CHLORIDE 0.9% 1,000 ML IV SCH (15:14)
--- NOTE | 2019-08-04 16:18 | PN ---
PROGRESS NOTE DATE OF SERVICE: 08/04/2019. REASON FOR FOLLOWUP: MSSA bacteremia secondary to pneumonia. INTERVAL HISTORY: The patient is currently afebrile. The patient has been breathing comfortably. The patient denies having any chest pain. Minimal cough. No nausea, no vomiting, no abdominal pain or diarrhea. PHYSICAL EXAMINATION: Blood pressure is 102/78 with a pulse of 94, temperature 97.5. He is 95% on room air. General description is an elderly male lying in bed in no distress. RESPIRATORY SYSTEM: Unlabored breathing. Clear to auscultation anteriorly. HEART: S1, S2. Regular rate and rhythm. ABDOMEN: Soft. No tenderness. LABS: BUN of 19, creatinine 0.92. Blood cultures 07/31 and 08/01/19 have been negative. DIAGNOSTIC IMPRESSION AND PLAN: Patient with methicillin-susceptible Staphylococcus aeruginosa bacteremia. Source is pneumonia in this patient having overall clinical improvement on cefazolin. We will continue the cefazolin to finish his 2-week course of therapy and will monitor his clinical course closely. Continue with supportive care. MMODL / IJN: [id number] /
== END 2019-08-04 15:25 | DRG 871 ==
LOC: EC 04:28 → 6NMEDSUR 06:42 → 2SICU 11:26 → 3SCARD 14:48
PROVIDERS: ADMIT Hospitalist; ATTEND Hospitalist
PROC: 05HF33Z Insertion of Infusion Device into Left Cephalic Vein, Percutaneous Approach (ICD-10-PCS; principal; 2019-08-03 08:50)
DX: A41.01 Sepsis due to Methicillin susceptible Staphylococcus aureus (principal); R65.21 Severe sepsis with septic shock; J15.212 Pneumonia due to Methicillin resistant Staphylococcus aureus; G93.41 Metabolic encephalopathy; I50.31 Acute diastolic (congestive) heart failure; E87.2 Acidosis; I13.0 Hypertensive heart and chronic kidney disease with heart failure and stage 1 through stage 4 chronic kidney disease, or unspecified chronic kidney disease; J44.0 Chronic obstructive pulmonary disease with (acute) lower respiratory infection; Z96.1 Presence of intraocular lens; E11.22 Type 2 diabetes mellitus with diabetic chronic kidney disease; E11.51 Type 2 diabetes mellitus with diabetic peripheral angiopathy without gangrene; H91.90 Unspecified hearing loss, unspecified ear; I35.0 Nonrheumatic aortic (valve) stenosis; M10.9 Gout, unspecified; K22.70 Barrett's esophagus without dysplasia; N18.9 Chronic kidney disease, unspecified; E78.5 Hyperlipidemia, unspecified; E66.9 Obesity, unspecified; K21.9 Gastro-esophageal reflux disease without esophagitis; M19.90 Unspecified osteoarthritis, unspecified site; G62.9 Polyneuropathy, unspecified; Z90.49 Acquired absence of other specified parts of digestive tract; Z92.3 Personal history of irradiation; Z92.21 Personal history of antineoplastic chemotherapy; Z87.442 Personal history of urinary calculi; Z87.11 Personal history of peptic ulcer disease; Z87.01 Personal history of pneumonia (recurrent); Z86.19 Personal history of other infectious and parasitic diseases; Z85.01 Personal history of malignant neoplasm of esophagus; Z82.49 Family history of ischemic heart disease and other diseases of the circulatory system; Z80.51 Family history of malignant neoplasm of kidney; Z79.899 Other long term (current) drug therapy; Z79.82 Long term (current) use of aspirin; Z79.4 Long term (current) use of insulin; Z68.33 Body mass index [BMI] 33.0-33.9, adult; Z90.89 Acquired absence of other organs; Z98.890 Other specified postprocedural states; Z98.42 Cataract extraction status, left eye; Z98.41 Cataract extraction status, right eye
CPT/HCPCS: 36410; 36415; 71045; 71046; 76937; 80048; 80053; 81001; 83605; 83880; 84145; 84484; 85025; 85610; 85730; 87040; 87070; 87077; 87186; 87205; 87502; 93005; 93306; 94640; 94667; 94760; 96365; 96367; 99285

== ENCOUNTER 2019-08-17 10:07 | Inpatient (IN) | payer MEDICARE ==
[2019-08-17] MEDS ORDERED: SODIUM CHLORIDE 0.9% 1,000 ML IV STA ×2 (10:40)
--- NOTE | 2019-08-17 11:05 | ED ---
SOB HPI - General Chief Complaint: Shortness of Breath Stated Complaint: Sent by DR Elvis Abdi Time Seen by Provider: 08/17/19 10:16 Source: patient, family, RN notes reviewed, old records reviewed Mode of arrival: wheelchair Limitations: no limitations - History of Present Illness Initial Comments: This 84-year-old male who was recently hospitalized and discharged about 2 weeks ago to a long-term for rehab who has not been doing well rehab bees had decreased oral intake sleeping a lot decreased level of consciousness possibly some shortness of breath. He is having history of esophageal cancer he is suspected to possibly have adrenal insufficiency at this time. He has been on steroids in the past he was seen by Dr. Brown this morning and said here for further evaluation and workup. No reports of overt fevers chills sweats or cough. No focal deficits. The patient himself denies any pain at this time MD Complaint: shortness of breath - Related Data Home Medications Medication Instructions Recorded Confirmed Cetirizine HCl 10 mg PO DAILY 07/05/15 08/17/19 Nitroglycerin Sl Tabs [Nitrostat] 0.4 mg SUBLINGUAL Q5M PRN 07/05/15 08/17/19 Pravastatin Sodium [Pravachol] 80 mg PO HS@199909/01/17 08/17/19 Allopurinol [Zyloprim] 300 mg PO DAILY 01/26/18 08/17/19 Ipratropium-Albuterol Nebulize 3 ml INHALATION RT-Q6H 04/22/19 08/17/19 [Duoneb 0.5 mg-3 mg/3 ml Soln] Fluticasone Nasal [place] [Flonase 2 spray EA NOSTRIL HS@199907/14/19 08/17/19 Nasal [place]] Ipratropium-Albuterol Nebulize 3 ml INHALATION RT-Q4H PRN 07/29/19 08/17/19 [Duoneb 0.5 mg-3 mg/3 ml Soln] Potassium Chloride ER [K-Dur 20] 20 meq PO BID 07/29/19 08/17/19 Heparin Lock Flush 3 ml IV Q8H 08/17/19 08/17/19 Insulin Aspart [NovoLOG] 14 units SQ AC-TID 08/17/19 08/17/19 Insulin Glargine [Lantus] 30 unit SQ HS 08/17/19 08/17/19 L.acidoph,Paracasei, B.lactis 1 cap PO BID 08/17/19 08/17/19 [Probiotic] Owvnwjgw-Dgloorbmgv-Zyyl Oint 1 applic TOPICAL BID 08/17/19 08/17/19 [Triple Antibiotic Ointment] Torsemide [Demadex] 40 mg PO DAILY 08/17/19 08/17/19 metFORMIN HCL [Glucophage] 500 mg PO BID@0700,1600 08/17/19 08/17/19 Previous Rx's Medication Instructions Recorded Bisacodyl [Dulcolax] 10 mg PO DAILY PRN tablet. 07/25/19 Budesonide [Pulmicort] 1 mg INHALATION RT-BID ml 07/25/19 Formoterol Fumarate [Perforomist] 20 mcg INHALATION RT-BID nebu 07/25/19 Pantoprazole [Protonix] 40 mg PO AC-BRKFST tablet. 07/25/19 guaiFENesin-DM 100-10MG/5ML 5 ml PO BID ml 07/25/19 [Robitussin DM] Acetaminophen Tab [Tylenol] 650 mg PO Q4HR PRN tab 08/03/19 Cefazolin Sodium/D5w [Kefzol 2 2 gm IV Q8H #42 plast..bag 08/03/19 Gm/D5w 100 ml] Gabapentin [Neurontin] 1,200 mg PO HS@2200 #1 cap 08/03/19 Gabapentin [Neurontin] 600 mg PO BID #2 cap 08/03/19 Metoprolol Tartrate [Lopressor] 50 mg PO DAILY tab 08/03/19 Zolpidem [Ambien] 10 mg PO HS@2000 #1 tab 08/03/19 Allergies Allergy/AdvReac Type Severity Reaction Status Date / Time latex Allergy Rash/Hives Verified 08/17/19 11:21 penicillin G Allergy Rash/Hives Verified 08/17/19 11:21 Review of Systems ROS Statement: Those systems with pertinent positive or pertinent negative responses have been documented in the HPI. ROS Other: All systems not noted in ROS Statement are negative. Past Medical History Past Medical History: Cancer, Diabetes Mellitus, GERD/Reflux, Hearing Disorder / Deafness, Hyperlipidemia, Hypertension, Memory Impairment, Musculoskeletal Disorder, Osteoarthritis (OA), Pneumonia, Renal Disease Additional Past Medical History / Comment(s): Fractures L2-L4 w/ [place] leg pain, epidural injections. DDD, Gout, CARDOSO'S esophagus, Esophageal CA-completed 28 radiation tx on 09/08/17, & 5 chemo tx 09/02/17. 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 "Some memory impairment RT to pain Rx." History of Any Multi-Drug Resistant Organisms: None Reported Past Surgical History: Appendectomy, Back Surgery, Orthopedic Surgery Additional Past Surgical History / Comment(s): Bilateral rotator cuff surgery, left foot surgery, thinks he has plate and screws, "esophagus radiofrequency ab lation", paul[place] cataracts-lens implants, kyphoplasty. Pain procedures. epidural steroid injection in back Past Anesthesia/Blood Transfusion Reactions: No Reported Reaction Additional Past Anesthesia/Blood Transfusion Reaction / Comment(s): . Past Psychological History: No Psychological Hx Reported Smoking Status: Never smoker Past Alcohol Use History: Daily Past Drug Use History: None Reported - Past Family History Mother Family Medical History: Cancer Additional Family Medical History / Comment(s): kidney, Thyroid Father Family Medical History: Coronary Artery Disease (CAD) Additional Family Medical History / Comment(s): AT AGE 53. General Exam - General Exam Comments Initial Comments: This is a well-developed well-nourished awake alert oriented 3 male Limitations: no limitations General appearance: alert, lethargic Head exam: Present: atraumatic, normocephalic, normal inspection Eye exam: Present: normal appearance, PERRL, EOMI. Absent: scleral icterus, conjunctival injection, periorbital swelling ENT exam: Present: mucous membranes dry Neck exam: Present: normal inspection, full ROM, other (No stridor JVD or bruits). Absent: tenderness, meningismus, lymphadenopathy Respiratory exam: Present: decreased breath sounds. Absent: respiratory distr ess, wheezes, rales, rhonchi, stridor Cardiovascular Exam: Present: normal rhythm, bradycardia, normal heart sounds. Absent: systolic murmur, diastolic murmur, rubs, gallop, clicks GI/Abdominal exam: Present: soft, normal bowel sounds. Absent: distended, tenderness, guarding, rebound, rigid Extremities exam: Present: normal inspection, full ROM, normal capillary refill. Absent: tenderness, pedal edema, joint swelling, calf tenderness Back exam: Present: normal inspection Neurological exam: Present: alert, oriented X3, CN II-XII intact Psychiatric exam: Present: normal affect, normal mood Skin exam: Present: warm, dry, intact, normal color. Absent: rash Course Vital Signs 08/17/19 08/17/19 08/17/19 10:11 10:15 11:15 Temperature 98.0 F Pulse Rate 54 L 86 Respiratory 20 16 16 Rate Blood Pressure 91/64 108/55 O2 Sat by Pulse 91 L 95 Oximetry - Reevaluation(s) Reevaluation #1: 08/17/19 13:31 Patient was seen by Dr. Sampson in the emergency department. Patient does have evidence of elevated lactic acid. He was somewhat hypotensive no fever reported. Patient was given IV fluids he'll be given IV antibiotics. Reevaluation #2: 08/17/19 14:19 A she has responded to IV fluids does have an elevated lactic acid and evidence dehydration or infectious process not ruled out concern for pulmonary infectious process Medical Decision Making - Medical Decision Making Case was discussed with the patient's family the patient as well as Dr. Sampson who did come the emergency department see the patient. Patient does demonstrate evidence of elevated lactic acid dehydration as well as hypotensive episode. He also demonstrated elevation of his troponin. Sepsis is considered. Patient be admitted he was placed on high-dose antibiotics IV fluids he did respond to the fluids. - Lab Data Result diagrams: 08/17/19 10:48 08/17/19 10:48 Lab Results 08/17/19 08/17/19 08/17/19 Range/Units 10:48 10:48 10:48 WBC 8.2 (3.8-10.6) k/uL RBC 3.48 L (4.30-5.90) m/uL Hgb 10.8 L (13.0-17.5) gm/dL Hct 33.4 L (39.0-53.0) % MCV 96.1 (80.0-100.0) fL MCH 31.0 (25.0-35.0) pg MCHC 32.3 (31.0-37.0) g/dL RDW 16.4 H (11.5-15.5) % Plt Count 251 D (150-450) k/uL Neutrophils % 76 % Lymphocytes % 11 % Monocytes % 9 % Eosinophils % 1 % Basophils % 0 % Neutrophils # 6.2 (1.3-7.7) k/uL Lymphocytes # 0.9 L (1.0-4.8) k/uL Monocytes # 0.7 (0-1.0) k/uL Eosinophils # 0.0 (0-0.7) k/uL Basophils # 0.0 (0-0.2) k/uL Hypochromasia Slight Poikilocytosis Slight Anisocytosis Slight PT 11.1 (9.0-12.0) sec INR 1.1 (<1.2) APTT 27.8 (22.0-30.0) sec Sodium 136 L (137-145) mmol/L Potassium 3.8 (3.5-5.1) mmol/L Chloride 96 L (98-107) mmol/L Carbon Dioxide 27 (22-30) mmol/L Anion Gap 13 mmol/L BUN 14 (9-20) mg/dL Creatinine 1.23 (0.66-1.25) mg/dL Est GFR (CKD-EPI)AfAm 63 (>60 ml/min/1.73 sqM) Est GFR (CKD-EPI)NonAf 55 (>60 ml/min/1.73 sqM) Glucose 133 H (74-99) mg/dL Plasma Lactic Acid Nestor (0.7-2.0) mmol/L Calcium 8.8 (8.4-10.2) mg/dL Magnesium 1.4 L (1.6-2.3) mg/dL Total Bilirubin 0.6 (0.2-1.3) mg/dL AST 32 (17-59) U/L ALT 8 (4-49) U/L Alkaline Phosphatase 77 (38-126) U/L Creatine Kinase 91 (55-170) U/L Troponin I (0.000-0.034) ng/mL NT-Pro-B Natriuret Pep pg/mL Total Protein 7.0 (6.3-8.2) g/dL Albumin 3.1 L (3.5-5.0) g/dL Urine Color Urine Appearance (Clear) Urine pH (5.0-8.0) Ur Specific [place] (1.001-1.035) Urine Protein (Negative) Urine Glucose (UA) (Negative) Urine Ketones (Negative) Urine Blood (Negative) Urine Nitrite (Negative) Urine Bilirubin (Negative) Urine Urobilinogen (<2.0) mg/dL Ur Leukocyte Esterase (Negative) Urine RBC (0-5) /hpf Urine WBC (0-5) /hpf Ur Squamous Epith Cells (0-4) /hpf Urine Bacteria (None) /hpf Urine Mucus (None) /hpf Urine Yeast (Budding) (None) /hpf Influenza Type A RNA (Not Detectd) Influenza Type B (PCR) (Not Detectd) 08/17/19 08/17/19 08/17/19 Range/Units 10:48 10:48 10:48 WBC (3.8-10.6) k/uL RBC (4.30-5.90) m/uL Hgb (13.0-17.5) gm/dL Hct (39.0-53.0) % MCV (80.0-100.0) fL MCH (25.0-35.0) pg MCHC (31.0-37.0) g/dL RDW (11.5-15.5) % Plt Count (150-450) k/uL Neutrophils % % Lymphocytes % % Monocytes % % Eosinophils % % Basophils % % Neutrophils # (1.3-7.7) k/uL Lymphocytes # (1.0-4.8) k/uL Monocytes # (0-1.0) k/uL Eosinophils # (0-0.7) k/uL Basophils # (0-0.2) k/uL Hypochromasia Poikilocytosis Anisocytosis PT (9.0-12.0) sec INR (<1.2) APTT (22.0-30.0) sec Sodium (137-145) mmol/L Potassium (3.5-5.1) mmol/L Chloride (98-107) mmol/L Carbon Dioxide (22-30) mmol/L Anion Gap mmol/L BUN (9-20) mg/dL Creatinine (0.66-1.25) mg/dL Est GFR (CKD-EPI)AfAm (>60 ml/min/1.73 sqM) Est GFR (CKD-EPI)NonAf (>60 ml/min/1.73 sqM) Glucose (74-99) mg/dL Plasma Lactic Acid Nestor 4.3 H* (0.7-2.0) mmol/L Calcium (8.4-10.2) mg/dL Magnesium (1.6-2.3) mg/dL Total Bilirubin (0.2-1.3) mg/dL AST (17-59) U/L ALT (4-49) U/L Alkaline Phosphatase (38-126) U/L Creatine Kinase (55-170) U/L Troponin I 0.074 H* (0.000-0.034) ng/mL NT-Pro-B Natriuret Pep 252 pg/mL Total Protein (6.3-8.2) g/dL Albumin (3.5-5.0) g/dL Urine Color Urine Appearance (Clear) Urine pH (5.0-8.0) Ur Specific [place] (1.001-1.035) Urine Protein (Negative) Urine Glucose (UA) (Negative) Urine Ketones (Negative) Urine Blood (Negative) Urine Nitrite (Negative) Urine Bilirubin (Negative) Urine Urobilinogen (<2.0) mg/dL Ur Leukocyte Esterase (Negative) Urine RBC (0-5) /hpf Urine WBC (0-5) /hpf Ur Squamous Epith Cells (0-4) /hpf Urine Bacteria (None) /hpf Urine Mucus (None) /hpf Urine Yeast (Budding) (None) /hpf Influenza Type A RNA (Not Detectd) Influenza Type B (PCR) (Not Detectd) 08/17/19 08/17/19 Range/Units 10:48 12:31 WBC (3.8-10.6) k/uL RBC (4.30-5.90) m/uL Hgb (13.0-17.5) gm/dL Hct (39.0-53.0) % MCV (80.0-100.0) fL MCH (25.0-35.0) pg MCHC (31.0-37.0) g/dL RDW (11.5-15.5) % Plt Count (150-450) k/uL Neutrophils % % Lymphocytes % % Monocytes % % Eosinophils % % Basophils % % Neutrophils # (1.3-7.7) k/uL Lymphocytes # (1.0-4.8) k/uL Monocytes # (0-1.0) k/uL Eosinophils # (0-0.7) k/uL Basophils # (0-0.2) k/uL Hypochromasia Poikilocytosis Anisocytosis PT (9.0-12.0) sec INR (<1.2) APTT (22.0-30.0) sec Sodium (137-145) mmol/L Potassium (3.5-5.1) mmol/L Chloride (98-107) mmol/L Carbon Dioxide (22-30) mmol/L Anion Gap mmol/L BUN (9-20) mg/dL Creatinine (0.66-1.25) mg/dL Est GFR (CKD-EPI)AfAm (>60 ml/min/1.73 sqM) Est GFR (CKD-EPI)NonAf (>60 ml/min/1.73 sqM) Glucose (74-99) mg/dL Plasma Lactic Acid Nestor (0.7-2.0) mmol/L Calcium (8.4-10.2) mg/dL Magnesium (1.6-2.3) mg/dL Total Bilirubin (0.2-1.3) mg/dL AST (17-59) U/L ALT (4-49) U/L Alkaline Phosphatase (38-126) U/L Creatine Kinase (55-170) U/L Troponin I (0.000-0.034) ng/mL NT-Pro-B Natriuret Pep pg/mL Total Protein (6.3-8.2) g/dL Albumin (3.5-5.0) g/dL Urine Color Colorless Urine Appearance Clear (Clear) Urine pH 7.0 (5.0-8.0) Ur Specific [place] 1.005 (1.001-1.035) Urine Protein Negative (Negative) Urine Glucose (UA) Negative (Negative) Urine Ketones Negative (Negative) Urine Blood Small H (Negative) Urine Nitrite Negative (Negative) Urine Bilirubin Negative (Negative) Urine Urobilinogen <2.0 (<2.0) mg/dL Ur Leukocyte Esterase Large H (Negative) Urine RBC 2 (0-5) /hpf Urine WBC 133 H (0-5) /hpf Ur Squamous Epith Cells <1 (0-4) /hpf Urine Bacteria Rare H (None) /hpf Urine Mucus Rare H (None) /hpf Urine Yeast (Budding) Occasional H (None) /hpf Influenza Type A RNA Not Detected (Not Detectd) Influenza Type B (PCR) Not Detected (Not Detectd) - EKG Data -: EKG Interpreted by Me EKG Comments: EKG shows normal sinus rhythm a 95. Interval 172 QRS duration 82 QT since QTC 352/442 evidence of a RSR prime or QR pattern in V1 ventricular conduction delay suggested minimal voltage criteria for LVH no acute ST-T wave changes - Radiology Data Radiology results: report reviewed (I did review the imaging and report no evidence of acute findings there is some evidence of some, pleural effusion), i mage reviewed Critical Care Time Critical Care Time: Yes Total Critical Care Time: 39 Critical Care Time: 30 minutes critical care time which includes initial presentation with history physical labs x-rays multiple reevaluation the patient multiple discussions with the patient family discuss with the paramedics brought the patient review old charting. Discussion with the admitting physician admission orders and documentation of the above Disposition Clinical Impression: Sepsis, Dehydration, Hypotensive episode, Elevated troponin I level, Failure to thrive Disposition: ADMITTED IP TO THIS HOSP Condition: Fair Referrals: Sumit Dozier DO [Primary Care Provider] - 1-2 days
[2019-08-17 11:17] LABS: Anisocytosis Slight; Basophils % (A) 0 %; Eosinophils % (A) 1 %; HCT 33.4 % (39.0-53.0); HGB 10.8 gm/dL (13.0-17.5); Hypochromasia Slight; Lymphocytes # (A) 0.9 k/uL (1.0-4.8); Lymphocytes % (A) 11 %; MCHC 32.3 g/dL (31.0-37.0); MCV 96.1 fL (80.0-100.0); Monocytes # (A) 0.7 k/uL (0-1.0); Monocytes % (A) 9 %; Neutrophils # (A) 6.2 k/uL (1.3-7.7); Neutrophils % (A) 76 %; Platelet Count 251 k/uL (150-450); Poikilocytosis Slight; RBC 3.48 m/uL (4.30-5.90); RDW 16.4 % (11.5-15.5); WBC 8.2 k/uL (3.8-10.6)
--- NOTE | 2019-08-17 11:20 | XR ---
EXAMINATION TYPE: XR chest 2V DATE OF EXAM: 08/17/2019 COMPARISON: 07/31/2019 HISTORY: Difficulty breathing, clinical pneumonia, and sepsis. TECHNIQUE: Frontal and lateral views of the chest are obtained. FINDINGS: There is an enlarged cardiomediastinal silhouette. There are low lung volumes with very tr chelle right pleural effusion blunting the costophrenic angle. Chronic interstitial prominence is seen. No new focal consolidation, pulmonary vascular congestion or pneumothorax. Diffuse osseous deminerali zation and moderate degenerative change of the spine. IMPRESSION: Very trace right pleural effusion and redemonstration of cardiomegaly. No new focal cons olidation is seen.
[2019-08-17 11:23] LABS: Albumin 3.1 g/dL (3.5-5.0); Calcium 8.8 mg/dL (8.4-10.2); Magnesium 1.4 mg/dL (1.6-2.3); Potassium 3.8 mmol/L (3.5-5.1); Total Bilirubin 0.6 mg/dL (0.2-1.3)
[2019-08-17 11:29] LABS: INR 1.1 (<1.2); Partial Thromboplastin Time 27.8 sec (22.0-30.0); Prothrombin Time 11.1 sec (9.0-12.0)
--- NOTE | 2019-08-17 11:32 | CT ---
EXAMINATION TYPE: CT brain wo con DATE OF EXAM: 08/17/2019 COMPARISON: 09/23/2017 HISTORY: confusion CT DLP: 1068.4 mGycm Automated exposure control for dose reduction was used. FINDINGS: Extensive generalized degenerative changes seen with low-attenuation the white matter which is nonspe cific but most typical remote microvascular ischemia. Extensive intracranial atherosclerotic changes. No midline shift. No mass effect. No acute hemorrhage. Calvarium intact. Changes of chronic sinusitis noted. IMPRESSION: STENTS OF UNDERLYING DEGENERATIVE CHANGES WITH NO EVIDENCE OF ACUTE HEMORRHAGE OR MASS EFFECT.
[2019-08-17] MEDS ORDERED: SODIUM CHLORIDE 0.9% 1,000 ML IV ONE (11:36)
[2019-08-17] MEDS ORDERED: MAGNESIUM SULFATE-D5W PMX 1 GM in DEXTROSE/WATER 1 100ML.BAG IVPB ONE (11:54)
[2019-08-17 13:00] LABS: Appearance,Urine Clear (Clear); Bacteria,Urine Rare /hpf; Bilirubin,Urine Negative (Negative); Blood,Urine Small (Negative); Budding Yeast,Urine Occasional /hpf; Color,Urine Colorless; Glucose,Urine (UA) Negative (Negative); Ketones,Urine Negative (Negative); Leukocyte Esterase,Urine Large (Negative); Mucus,Urine Rare /hpf; Nitrite,Urine Negative (Negative); Protein,Urine Negative (Negative); RBC,Urine 2 /hpf (0-5); Specific Gravity,Urine 1.005 (1.001-1.035); Squamous Epithelial Cell,Urine <1 /hpf (0-4); Urobilinogen,Urine <2.0 mg/dL (<2.0); WBC,Urine 133 /hpf (0-5)
[2019-08-17] MEDS ORDERED: SODIUM CHLORIDE 0.9% 500 ML 500 ML IV STA (13:09)
[2019-08-17] MEDS ORDERED: cefTRIAXone IN SWFI 1,000 MG/10 ML SYRINGE IVP STA (13:40)
[2019-08-17] MEDS ORDERED: IPRATROPIUM-ALBUTEROL 3 ML NEB INHALATION PRN (14:26)
[2019-08-17] MEDS ORDERED: BISACODYL 5 MG TABLET.DR PO PRN (14:26)
[2019-08-17] MEDS ORDERED: NITROGLYCERIN SL TABS 0.4 MG TAB SUBLINGUAL PRN (14:26)
[2019-08-17] MEDS ORDERED: ACETAMINOPHEN TAB 325 MG TAB PO PRN (14:26)
[2019-08-17] MEDS: SODIUM CHLORIDE 0.9% 1,000 ML IV SCH ×2 (14:47→22:10)
[2019-08-17] MEDS: GABAPENTIN 300 MG CAP PO SCH (15:41)
[2019-08-17] MEDS: metFORMIN 500 MG TAB PO SCH (15:41)
[2019-08-17] MEDS ORDERED: Potassium Replacement Protocol 1 EACH MISC MISCELLANE PRN (16:44)
[2019-08-17] MEDS ORDERED: Magnesium Replacement Protocol 1 EACH MISC MISCELLANE PRN (16:44)
[2019-08-17 17:06] LABS: Glucose,Whole Blood 111 mg/dL (75-99)
[2019-08-17] MEDS: methylPREDNISolone SOD SUCCI 125 MG/2 ML VIAL IV SCH ×2 (17:21→22:17)
[2019-08-17] MEDS: INSULIN ASPART (NovoLOG) 100 UNIT/ML VIAL SQ SCH ×3 (17:21→22:09)
--- NOTE | 2019-08-17 18:00 | PN ---
PROGRESS NOTE DATE OF SERVICE: 08/17/2019. ADDENDUM: Please add: FINAL DIAGNOSES: 1. Change in mental status acute metabolic encephalopathy. 2. Troponin 0.075, indeterminate. MMODL / IJN: [id number] /
--- NOTE | 2019-08-17 18:06 | HP ---
HISTORY AND PHYSICAL DATE OF SERVICE: 08/17/2019 CHIEF COMPLAINTS: Shortness of breath as well as weakness and pneumonia. HISTORY OF PRESENT ILLNESS: This 84-year-old gentleman with a past medical history of diabetes mellitus, GERD, history of hyperlipidemia, hypertension, history of memory impairment, history of fractures L2 through 4, history of gout, Hernandez's esophagus, back surgery, DJD, being followed by Dr. Sumit Dozier in the outpatient setting, was recently admitted to [facility] with bilateral pneumonia. Sepsis was also suspected during that time along with acute diastolic congestive heart failure. The patient had multiple organisms grown from the sputum. Interestingly, patient had Stenotrophomonas maltophilia grown on multiple occasions, but the most recent cultures are positive for Staphylococcus aureus, which was oxacillin-sensitive with MSSA, which was grown from the blood and sputum. The patient also had basic evaluations and Dr. Nur recommended cefazolin through a PICC line. Apparently the patient is in the fpc at this time, [facility]. Dr. Nur saw the patient yesterday. The patient was doing well, but this morning the patient took a turn for the worse. Patient became more short of breath and the patient became more obtunded. He was evaluated by Dr. Brown and was sent to [facility] and admitted for evaluation and treatment. Currently the patient is drowsy, unable to give a coherent history. Most of the history is taken from my discussion with staff and review of the chart and discussion with the ER physician. PAST MEDICAL HISTORY: History of recent bilateral pneumonia, history of recent Stenotrophomonas maltophilia from the sputum multiple times, diabetes mellitus, type 2, GERD, hypertension, hyperlipidemia, memory impairment, fractures, DJD, history of back surgery. HOME MEDICATIONS: Home medications prior to admission include: 1. Metformin 500 mg p.o. b.i.d. 2. Guaifenesin 5 mg p.o. b.i.d. 3. Ambien 10 mg at bedtime. 4. Demadex 40 mg p.o. daily. 5. Pravachol 80 mg at bedtime. 6. K-Dur 20 mEq p.o. b.i.d. 7. Protonix 40 mg with breakfast. 8. Nitrostat 0.4 sublingually p.r.n. 9. Triple antibiotic ointment. 10.Lopressor 50 mg p.o. daily. 11.DuoNeb q.i.d. and p.r.n. 12.Lantus 30 units subcutaneously at bedtime. 13.NovoLog 14 units subcutaneously before meals t.i.d. 14.Neurontin 600 mg p.o. b.i.d. and 1200 mg at bedtime. 15.Perforomist 20 mcg b.i.d. 16.Flonase 2 sprays at bedtime. 17.Cetirizine 10 mg p.o. daily. 18.Kefzol 2 grams IV q.8. 19.Pulmicort 1 mg b.i.d. 20.Dulcolax 10 mg daily p.r.n. 21.Zyloprim 300 mg p.o. daily. 22.Tylenol 650 mg q.4 p.r.n. ALLERGIES: LATEX and PENICILLIN G. FAMILY HISTORY: History of kidney and thyroid cancer in the family. SOCIAL HISTORY: History of occasional alcohol. No history of smoking. REVIEW OF SYSTEMS: Review of systems could not be taken. The patient is drowsy at this time. PHYSICAL EXAMINATION: Pulse is 92, blood pressure 106/61, respiration 18, temperature normal, pulse ox 94% on room air. HEENT: Conjunctivae normal. Oral mucosa moist. NECK: No jugular venous distention. No carotid bruit. No lymph node enlargement. CARDIOVASCULAR SYSTEM: S1, S2 muffled. No S3. No S4. RESPIRATORY SYSTEM: Breath sounds diminished at the bases. Bilateral scattered rhonchi and crackles. Expiratory wheezing also present. ABDOMEN: Soft, obese, non-tender. No mass palpable. LEGS: No edema. No swelling. NERVOUS SYSTEM: Higher functions as mentioned earlier. Moves all 4 limbs. No focal motor or sensory deficit. LYMPHATICS: No lymph node palpable in neck, axillae or groin. SKIN: No ulcer, rash, bleeding. JOINTS: No active deforming arthropathy. LABS: WBC 8.2, hemoglobin 10.8. Sodium 136. Plasma lactic acid 4.3. ASSESSMENT: 1. Shortness of breath with possible interstitial lung disease, acute exacerbation, with acute bilateral pneumonia with failure of outpatient treatment. 2. History of recent methicillin-susceptible Staphylococcus aeruginosa sepsis, on IV cefazolin through a PICC line. 3. History of recent Stenotrophomonas maltophilia from sputum. 4. Recent CT scan showed interstitial changes and possible bronchiectasis in both lower lobes. 5. History of recent congestive heart failure, acute exacerbation, with acute on chronic diastolic dysfunction. 6. History of recent sepsis. 7. Elevated lactic acid of 4.3, indicative of sepsis. 8. Hyponatremia. 9. Possible acute urinary tract infection, present on admission. 10.Anemia, normocytic; anemia of chronic disease. 11.History of diabetes mellitus, type 2. 12.Gastroesophageal reflux disease. 13.Hypertension. 14.Hyperlipidemia. 15.Memory impairment. 16.History of pneumonia. 17.History of fractures, L2-4 with leg pain. 18.History of degenerative joint disease. 19.History of gout. 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 21.History of esophageal carcinoma; completed 20 radiations and 5 chemo. 22.Hiatal hernia. 23.History of nephrolithiasis. 24.History of carotid artery stenosis. 25.History of back surgery, degenerative joint disease. 26.History of bilateral rotator cuff surgery and degenerative joint disease. 27.FULL CODE. RECOMMENDATIONS AND DISCUSSION: In this 84-year-old gentleman who presented with multiple complex medical issues, we will monitor the patient closely, continue the current medications, continue with symptomatic treatment. Will initiate broad-spectrum IV antibiotics and intensive bronchodilators. DVT prophylaxis. I would also recommend IV steroids. Monitor blood sugars closely. If the blood sugars are consistently more than 250 to 300, I would recommend insulin drip to control the blood sugars. Discussed with Dr. Nru. Would also obtain repeat cultures and sputum and blood and continue to monitor. Prognosis guarded because of multiple complex medical issues. Further recommendations to follow. MMODL / IJN: [id number] /
[2019-08-17 18:30] LABS: Glucose,Whole Blood 144 mg/dL (75-99)
--- NOTE | 2019-08-17 18:46 | CT ---
EXAMINATION TYPE: CT chest wo con DATE OF EXAM: 08/17/2019 COMPARISON: July 17, 2019 HISTORY: Pneumonia. CT DLP: 389 mGycm Automated exposure control for dose reduction was used. Multiple axial sections were obtained from the thoracic inlet to the diaphragm with no contrast. There is some patchy airspace consolidation and atelectasis at both lung bases. Heart is enlarged. Th ere is coronary artery calcification. Thoracic aorta is atheromatous. There is 4.2 cm aneurysm ascend ing aorta. There is no mediastinal adenopathy. There are no hilar masses. There is spurring in the th oracic spine. I see no bony destructive process. IMPRESSION: Patchy bilateral lower lobe infiltrates and atelectasis slightly worse than last CT scan. This most l ikely relates to inflammatory disease. Mild aneurysm of the ascending aorta. Mild cardiomegaly.
[2019-08-17] MEDS: POTASSIUM CHLORIDE ER 20 MEQ TAB.ER PO SCH (20:02)
[2019-08-17] MEDS: LACTOBACILLUS ACIDOPH & BULGAR 1 EACH PACKET PO SCH (20:02)
[2019-08-17] MEDS: GABAPENTIN 400 MG CAP PO SCH (20:02)
[2019-08-17 20:31] LABS: Glucose,Whole Blood 326 mg/dL (75-99)
[2019-08-17] MEDS: ZOLPIDEM 10 MG TAB PO SCH ×2 (22:06→22:17)
[2019-08-17] MEDS: FLUTICASONE 50MCG/SPRAY NASAL 16GM EA NOSTRIL SCH (22:08)
[2019-08-17] MEDS: INSULIN DETEMIR (LEVEMIR) 100 UNIT/ML SYR SQ SCH (22:09)
[2019-08-17] MEDS: NEOMYCIN-BACITRACIN-POLY OINT 14 GM TUBE TOPICAL SCH (22:09)
[2019-08-17] MEDS: PRAVASTATIN SODIUM 80 MG TAB PO SCH (22:09)
[2019-08-17] MEDS: guaiFENesin-DM 100-10MG/5ML 10 ML CUP PO SCH (22:09)
[2019-08-17] MEDS: IPRATROPIUM-ALBUTEROL 3 ML NEB INHALATION SCH ×2 (22:32→22:33)
[2019-08-17] MEDS: FORMOTEROL FUMARATE 20 MCG/2 ML NEBU INHALATION SCH (22:33)
[2019-08-17] MEDS: BUDESONIDE 1 MG/2 ML NEBU INHALATION SCH (22:33)
[2019-08-18] MEDS ORDERED: SODIUM CHLORIDE 0.9% 500 ML 500 ML IV ONE (01:15)
[2019-08-18 02:23] LABS: Glucose,Whole Blood 430 mg/dL (75-99)
[2019-08-18 03:26] LABS: Anisocytosis Slight; Basophils % (A) 0 %; Eosinophils % (A) 0 %; HCT 29.1 % (39.0-53.0); Hypochromasia Slight; Lymphocytes # (A) 0.4 k/uL (1.0-4.8); Lymphocytes % (A) 7 %; MCH 30.6 pg (25.0-35.0); MCHC 31.4 g/dL (31.0-37.0); MCV 97.3 fL (80.0-100.0); Mean Platelet Volume 7.8; Monocytes # (A) 0.2 k/uL (0-1.0); Monocytes % (A) 3 %; Neutrophils # (A) 5.2 k/uL (1.3-7.7); Neutrophils % (A) 88 %; Platelet Count 215 k/uL (150-450); Poikilocytosis Slight; RBC 2.99 m/uL (4.30-5.90); WBC 5.9 k/uL (3.8-10.6)
[2019-08-18 03:28] LABS: HGB 9.1 gm/dL (13.0-17.5)
[2019-08-18 03:38] LABS: Calcium 7.5 mg/dL (8.4-10.2); Magnesium 1.5 mg/dL (1.6-2.3); Potassium 4.1 mmol/L (3.5-5.1)
[2019-08-18 03:50] LABS: C Reactive Protein 137.2 mg/L (<10.0)
[2019-08-18 05:57] LABS: Glucose,Whole Blood 398 mg/dL (75-99)
[2019-08-18] MEDS: metFORMIN 500 MG TAB PO SCH ×2 (06:48→18:28)
[2019-08-18] MEDS: methylPREDNISolone SOD SUCCI 125 MG/2 ML VIAL IV SCH ×2 (06:48→12:15)
[2019-08-18] MEDS: PANTOPRAZOLE 40 MG TABLET PO SCH (06:48)
[2019-08-18] MEDS: SODIUM CHLORIDE 0.9% 1,000 ML IV SCH ×3 (06:49→21:41)
[2019-08-18] MEDS: INSULIN ASPART (NovoLOG) 100 UNIT/ML VIAL SQ SCH ×7 (06:49→21:40)
[2019-08-18 07:15] LABS: Glucose,Whole Blood 445 mg/dL (75-99)
[2019-08-18] MEDS: POTASSIUM CHLORIDE ER 20 MEQ TAB.ER PO SCH ×2 (08:16→21:40)
[2019-08-18] MEDS: LORATADINE 10 MG TAB PO SCH (08:16)
[2019-08-18] MEDS: ALLOPURINOL 300 MG TAB PO SCH (08:16)
[2019-08-18] MEDS: TORSEMIDE 20 MG TAB PO SCH (08:16)
[2019-08-18] MEDS: guaiFENesin-DM 100-10MG/5ML 10 ML CUP PO SCH ×2 (08:16→21:40)
[2019-08-18] MEDS: LACTOBACILLUS ACIDOPH & BULGAR 1 EACH PACKET PO SCH ×2 (08:16→21:39)
[2019-08-18] MEDS: GABAPENTIN 300 MG CAP PO SCH ×2 (08:17→17:44)
[2019-08-18] MEDS: METOPROLOL TARTRATE 50 MG TAB PO SCH (08:17)
[2019-08-18] MEDS: NEOMYCIN-BACITRACIN-POLY OINT 14 GM TUBE TOPICAL SCH ×2 (08:26→21:40)
[2019-08-18] MEDS: IPRATROPIUM-ALBUTEROL 3 ML NEB INHALATION SCH ×4 (08:42→21:02)
[2019-08-18] MEDS: BUDESONIDE 1 MG/2 ML NEBU INHALATION SCH ×2 (08:42→21:09)
[2019-08-18] MEDS: FORMOTEROL FUMARATE 20 MCG/2 ML NEBU INHALATION SCH ×2 (08:42→21:02)
--- NOTE | 2019-08-18 10:05 | P.CRDCN ---
History of Present Illness Consult date: 08/18/19 Requesting physician: Abigail Eden Reason for Consult (text): Abnormal troponin Chief complaint: Decrease appetite, shortness of breath, change in mental status History of present illness: This is an 84-year-old gentleman who follows regularly with Dr. Albrecht in the office. He has a known history of hypertension, hyperlipidemia, diabetes, esophageal cancer, Cardoso's esophagus, peripheral vascular disease. Had a recent hospitalization with diastolic congestive heart failure. He resides at an extended care facility. Patient was brought to the hospital on this occasion because of decreased appetite, weakness, shortness of breath, mental status changes and fever. His chest x-ray on presentation here showed a right-sided pleural effusion and cardiomegaly. CAT scan of the brain was performed which did not reveal any evidence of acute hemorrhage or mass effect. EKG shows normal sinus rhythm with nonspecific ST-T wave changes. CAT scan of the chest was performed which revealed patchy bilateral lower lobe infiltrates worse as compared with prior exam. Blood pressure 90/60 with a heart rate in the 80s, afebrile. White blood cell count 8.2 on admission 5.9 this morning, hemoglobin 10.8, 9.1 this morning, platelet count 2:15. Sodium 135, potassium 4.1, BUN 16, creatinine 0.9. Calcium 7.5, plasma lactic acid 4.2, magnesium 1.5, troponin 0.074. BNP 252. At the time of my examination this morning, patient has a productive cough of yellow sputum, overall feels significantly weak and tired. Past Medical History Past Medical History: Cancer, Heart Failure, Diabetes Mellitus, GERD/Reflux, Hearing Disorder / Deafness, Hyperlipidemia, Hypertension, Memory Impairment, Musculoskeletal Disorder, Osteoarthritis (OA), Pneumonia, Renal Disease Additional Past Medical History / Comment(s): Fractures L2-L4 w/ [place] leg pain, epidural injections. DDD, Gout, CARDOSO'S esophagus, Esophageal CA-completed 28 radiation tx on 09/08/17, & 5 chemo tx 09/02/17. 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 "Some memory impairment RT to pain Rx." History of Any Multi-Drug Resistant Organisms: None Reported Past Surgical History: Appendectomy, Back Surgery, Orthopedic Surgery Additional Past Surgical History / Comment(s): Bilateral rotator cuff surgery, left foot surgery, thinks he has plate and screws, "esophagus radiofrequency ablation", [place] cataracts-lens implants, kyphoplasty. Pain procedures. epidural steroid injection in back Past Anesthesia/Blood Transfusion Reactions: No Reported Reaction Additional Past Anesthesia/Blood Transfusion Reaction / Comment(s): . Past Psychological History: No Psychological Hx Reported Smoking Status: Never smoker Past Alcohol Use History: Daily Additional Past Alcohol Use History / Comment(s): pt no longer drinks Past Drug Use History: None Reported - Past Family History Mother Family Medical History: Cancer Additional Family Medical History / Comment(s): kidney, Thyroid Father Family Medical History: Coronary Artery Disease (CAD) Additional Family Medical History / Comment(s): AT AGE 53. Medications and Allergies Home Medications Medication Instructions Recorded Confirmed Type Cetirizine HCl 10 mg PO DAILY 07/05/15 08/17/19 History Nitroglycerin Sl Tabs [Nitrostat] 0.4 mg SUBLINGUAL Q5M PRN 07/05/15 08/17/19 History Pravastatin Sodium [Pravachol] 80 mg PO HS@199909/01/17 08/17/19 History Allopurinol [Zyloprim] 300 mg PO DAILY 01/26/18 08/17/19 History Ipratropium-Albuterol Nebulize 3 ml INHALATION RT-Q6H 04/22/19 08/17/19 History [Duoneb 0.5 mg-3 mg/3 ml Soln] Fluticasone Nasal [place] [Flonase 2 spray EA NOSTRIL HS@199907/14/19 08/17/19 History Nasal [place]] Bisacodyl [Dulcolax] 10 mg PO DAILY PRN tablet. 07/25/19 08/17/19 Rx Budesonide [Pulmicort] 1 mg INHALATION RT-BID ml 07/25/19 08/17/19 Rx Formoterol Fumarate [Perforomist] 20 mcg INHALATION RT-BID nebu 07/25/19 08/17/19 Rx Pantoprazole [Protonix] 40 mg PO AC-BRKFST tablet. 07/25/19 08/17/19 Rx guaiFENesin-DM 100-10MG/5ML 5 ml PO BID ml 07/25/19 08/17/19 Rx [Robitussin DM] Ipratropium-Albuterol Nebulize 3 ml INHALATION RT-Q4H PRN 07/29/19 08/17/19 History [Duoneb 0.5 mg-3 mg/3 ml Soln] Potassium Chloride ER [K-Dur 20] 20 meq PO BID 07/29/19 08/17/19 History Acetaminophen Tab [Tylenol] 650 mg PO Q4HR PRN tab 08/03/19 08/17/19 Rx Cefazolin Sodium/D5w [Kefzol 2 2 gm IV Q8H #42 plast..bag 08/03/19 08/17/19 Rx Gm/D5w 100 ml] Gabapentin [Neurontin] 1,200 mg PO HS@2200 #1 cap 08/03/19 08/17/19 Rx Gabapentin [Neurontin] 600 mg PO BID #2 cap 08/03/19 08/17/19 Rx Metoprolol Tartrate [Lopressor] 50 mg PO DAILY tab 08/03/19 08/17/19 Rx Zolpidem [Ambien] 10 mg PO HS@2000 #1 tab 08/03/19 08/17/19 Rx Heparin Lock Flush 3 ml IV Q8H 08/17/19 08/17/19 History Insulin Aspart [NovoLOG] 14 units SQ AC-TID 08/17/19 08/17/19 History Insulin Glargine [Lantus] 30 unit SQ HS 08/17/19 08/17/19 History L.acidoph,Paracasei, B.lactis 1 cap PO BID 08/17/19 08/17/19 History [Probiotic] Fmuzphbm-Pbndivsvia-Fzwt Oint 1 applic TOPICAL BID 08/17/19 08/17/19 History [Triple Antibiotic Ointment] Torsemide [Demadex] 40 mg PO DAILY 08/17/19 08/17/19 History metFORMIN HCL [Glucophage] 500 mg PO BID@0700,1600 08/17/19 08/17/19 History Allergies Allergy/AdvReac Type Severity Reaction Status Date / Time latex Allergy Rash/Hives Verified 08/17/19 11:21 penicillin G Allergy Rash/Hives Verified 08/17/19 11:21 Physical Exam Vitals: Vital Signs Temp Pulse Pulse Resp BP BP Pulse Ox 08/18/19 09:03 82 03/05/20 08:53 80 08/18/19 08:52 80 08/18/19 08:42 80 08/18/19 04:52 98.5 F 82 18 100/57 98 08/17/19 22:54 88 08/17/19 22:45 97.7 F 91 16 100/57 98 08/17/19 22:44 92 08/17/19 22:43 92 08/17/19 22:34 88 08/17/19 20:00 97.7 F 90 18 111/56 98 08/17/19 17:34 100 18 08/17/19 16:27 20 08/17/19 15:00 18 08/17/19 14:44 98.2 F 100 20 108/57 94 L 08/17/19 14:30 92 18 106/61 94 L 08/17/19 11:15 86 16 108/55 95 08/17/19 10:15 16 08/17/19 10:11 98.0 F 54 L 20 91/64 91 L Intake and Output 08/17/19 08/18/19 08/18/19 22:59 06:59 14:59 Intake Total 500 236 Balance 500 236 Intake: Intake, IV Titration 500 Amount Sodium Chloride 0.9% 500 500 ml 500 ml @ 999 mls/hr IV .Q31M ONE Rx#:[id number] Oral 236 Other: # Voids 2 Weight 85 kg PHYSICAL EXAMINATION: GENERAL: 84-year-old gentleman in no acute distress at the time of my examination HEENT: Head is atraumatic, normocephalic. Pupils equal, round. Sclera anicteric. Conjunctiva are clear. Mucous membranes of the mouth are moist. Neck is supple. There is no elevated jugular venous pressure. No carotid] bruit is heard. HEART EXAMINATION: Heart S1, S2 loud systolic ejection murmur heard in the aortic valve area . CHEST EXAMINATION: Lungs reveal scattered coarse rhonchi and wheezing throughout ABDOMEN: Soft, nontender. Bowel sounds are heard. No organomegaly noted. EXTREMITIES: 2+ peripheral pulses with evidence of peripheral edema and no calf tenderness noted. NEUROLOGIC patient is awake, alert and oriented 2 . . Results 08/18/19 03:04 08/18/19 03:04 Cardiac Enzymes 08/17/19 08/17/19 Range/Units 10:48 10:48 AST 32 (17-59) U/L Troponin I 0.074 H* (0.000-0.034) ng/mL Coagulation 08/17/19 Range/Units 10:48 PT 11.1 (9.0-12.0) sec APTT 27.8 (22.0-30.0) sec CBC 08/17/19 03 Range/Units 10:48 03:04 WBC 8.2 5.9 (3.8-10.6) k/uL RBC 3.48 L 2.99 L (4.30-5.90) m/uL Hgb 10.8 L 9.1 L D (13.0-17.5) gm/dL Hct 33.4 L 29.1 L (39.0-53.0) % Plt Count 251 D 215 (150-450) k/uL Comprehensive Metabolic Panel 08/17/19 08/18/19 Range/Units 10:48 03:04 Sodium 136 L 135 L (137-145) mmol/L Potassium 3.8 4.1 (3.5-5.1) mmol/L Chloride 96 L 101 (98-107) mmol/L Carbon Dioxide 27 25 (22-30) mmol/L BUN 14 16 (9-20) mg/dL Creatinine 1.23 0.97 (0.66-1.25) mg/dL Glucose 133 H 365 H (74-99) mg/dL Calcium 8.8 7.5 L (8.4-10.2) mg/dL AST 32 (17-59) U/L ALT 8 (4-49) U/L Alkaline Phosphatase 77 (38-126) U/L Total Protein 7.0 (6.3-8.2) g/dL Albumin 3.1 L (3.5-5.0) g/dL Current Medications Generic Name Dose Route Start Last Admin Trade Name Freq PRN Reason Stop Dose Admin Acetaminophen 650 mg 08/17/19 14:26 Tylenol Tab PO Q4HR PRN Fever and/ or Pain Albuterol/Ipratropium 3 ml 08/17/19 14:26 Duoneb 0.5 Mg-3 Mg/3 Ml Soln INHALATION RT-Q4H PRN Shortness Of Breath Albuterol/Ipratropium 3 ml 08/17/19 17:00 08/18/19 08:42 Duoneb 0.5 Mg-3 Mg/3 Ml Soln INHALATION 3 ml RT-QID MELVA Administration Allopurinol 300 mg 08/18/19 09:00 08/18/19 08:16 Zyloprim PO 300 mg DAILY MELVA Administration Bisacodyl 10 mg 08/17/19 14:26 Dulcolax PO DAILY PRN Constipation Budesonide 1 mg 08/17/19 20:00 08/18/19 08:42 Pulmicort INHALATION 1 mg RT-BID MELVA Administration Fluticasone Propionate 2 spray 08/17/19 20:00 08/17/19 22:08 Flonase Nasal [place] EA NOSTRIL 2 spray HS@2000 MELVA Administration Formoterol Fumarate 20 mcg 08/17/19 20:00 08/18/19 08:42 Perforomist INHALATION 20 mcg RT-BID MELVA Administration Gabapentin 600 mg 08/17/19 16:00 08/18/19 08:17 Neurontin PO 600 mg BID@0900,1600 MELVA Administration Gabapentin 1,200 mg 08/17/19 22:00 08/17/19 20:02 Neurontin PO 1,200 mg HS@2200 MELVA Administration Guaifenesin/Dextromethorphan 5 ml 08/17/19 21:00 08/18/19 08:16 Robitussin Dm PO 5 ml BID MELVA Administration Heparin Sodium (Beef Lung) 300 unit 08/17/19 16:00 08/18/19 01:34 Heparin Lock 300 Unit/3 Ml (100 Unit/Ml) IV Not Given Q8H MELVA Sodium Chloride 1,000 mls @ 130 mls/hr 08/17/19 14:30 08/18/19 06:49 Saline 0.9% IV 130 mls/hr .Q7H42M MELVA Administration Ceftriaxone Sodium 1 gm/ 50 mls @ 100 mls/hr 08/18/19 09:00 08/18/19 08:15 Sodium Chloride IVPB 100 mls/hr Q24HR MELVA Administration Insulin Aspart 0 unit 08/17/19 17:30 08/18/19 06:49 Novolog SQ 7 unit ACHS MELVA Administration Protocol Insulin Aspart 14 unit 08/17/19 17:30 08/18/19 08:18 Novolog SQ 14 unit AC-TID MELVA Administration Insulin Detemir 30 unit 08/17/19 21:00 08/17/19 22:09 Levemir SQ 30 unit HS MELVA Administration Lactobacillus Acidoph/[place] 1 each 08/17/19 21:00 08/18/19 08:16 Lactinex PO 1 each BID MELVA Administration Loratadine 10 mg 08/18/19 09:00 08/18/19 08:16 Claritin PO 10 mg DAILY MELVA Administration Metformin HCl 500 mg 08/17/19 16:00 08/18/19 06:48 Glucophage PO 500 mg BID@0700,1600 MELVA Administration Methylprednisolone Sodium Succinate 60 mg 08/17/19 18:00 08/18/19 06:48 Solu-Medrol IV 60 mg Q6HR MELVA Administration Metoprolol Tartrate 50 mg 08/18/19 09:00 08/18/19 08:17 Lopressor PO 50 mg DAILY MELVA Administration Miscellaneous Information 1 each 08/17/19 16:44 Potassium Per Protocol MISCELLANE DAILY PRN Per Protocol Protocol Miscellaneous Information 1 each 08/17/19 16:44 Magnesium Per Protocol MISCELLANE DAILY PRN Per Protocol Protocol Neomycin/Polymyxin/Bacitracin 1 applic 08/17/19 21:00 08/18/19 08:26 Triple Antibiotic Ointment TOPICAL 1 applic BID MELVA Administration Nitroglycerin 0.4 mg 08/17/19 14:26 Nitrostat SUBLINGUAL Q5M PRN Chest Pain Pantoprazole Sodium 40 mg 08/18/19 07:30 08/18/19 06:48 Protonix PO 40 mg AC-BRKFST MELVA Administration Potassium Chloride 20 meq 08/17/19 21:00 08/18/19 08:16 K-Dur 20 PO 20 meq BID MELVA Administration Pravastatin Sodium 80 mg 08/17/19 20:00 08/17/19 22:09 Pravachol PO 80 mg HS@1999 MELVA Administration Torsemide 40 mg 08/18/19 09:00 08/18/19 08:16 Demadex PO 40 mg DAILY MELVA Administration Zolpidem Tartrate 10 mg 08/17/19 20:00 08/17/19 22:17 Ambien PO 10 mg HS@1999 MELVA Administration Intake and Output 08/17/19 08/18/19 08/18/19 22:59 06:59 14:59 Intake Total 500 236 Balance 500 236 Intake: Intake, IV Titration 500 Amount Sodium Chloride 0.9% 500 500 ml 500 ml @ 999 mls/hr IV .Q31M ONE Rx#:[id number] Oral 236 Other: # Voids 2 Weight 85 kg 08/18/19 03:04 08/18/19 03:04 EKG Interpretations (text) EKG shows normal sinus rhythm with nonspecific ST-T wave changes. Assessment and Plan Plan: Assessment and plan #1 pneumonia with evidence of sepsis, elevated lactic acid level #2 abnormal troponin, likely secondary to sepsis. Patient's recent hospitalization also demonstrated abnormality in troponin, troponin level is down from that time. #3 chronic diastolic congestive heart failure, most recent echo showed an ejection fraction of 55-60%, moderate aortic stenosis. This was performed in July. #4 hypertension #5 hyperlipidemia #6 diabetes #7 history of esophageal cancer status post chemotherapy and radiation #8 hypomagnesemia Plan We will replace the patient's potassium, resume the patient's statin, put the patient on a baby aspirin. Further recommendations to follow. DNP note has been reviewed, I agree with a documented findings and plan of care. Patient was seen and examined.
[2019-08-18 12:02] LABS: Glucose,Whole Blood 332 mg/dL (75-99)
[2019-08-18] MEDS ORDERED: IOPAMIDOL CONTRAST (ORAL USE) VIAL PO PRN (13:21)
--- NOTE | 2019-08-18 13:25 | P.CNPUL ---
History of Present Illness Consult date: 08/18/19 History of present illness: This is a-year-old male patient was in rehabilitation was progressively For That Reason He Was Brought Infection. X-Ray Came into My Office and I Directed Him. The Patient Came in for Altered Mentation, Generalized Weakness, Shortness Marga ath, Cough, Diminished Appetite, Inability to Walk and generalized weakness without any significant focal neurological deficit. No fever. No chills. No leukocytosis. No diarrhea or nausea or vomiting or abdominal pain. No aspiration. I was quite shocked to see the massive declined that he had in his condition yesterday in the office and I made recommendations to admit this patient to the hospital for further workup. Note that he was in the hospital approximately 2 weeks ago for a underlying pneumonia. He was diagnosed having staphylococcal pneumonia with bacteremia as the bacteria was cultured also in his blood. Nevertheless, the sputum and the previous bronchial alveolar lavage is that were done also showed Stenotrophomonas. We had lengthy discussion with the sections disease specialist. We decided to hold off treating this gram- negative bacteria and concentrate mainly on the staphylococcal infection knowing that the patient had a MSSA pneumonia and bacteremia. After some limited improvement, the patient was discharged to [facility] had unfortunately, he did not have any success in terms of rehabilitation. He completed his antibiotic course. His condition got progressively worse. He is extremely weak. He is unable to get up and walk. At times is confused. He is lethargic. Is short of breath. There is a steady decline in his health in general and there is obvious concern that the patient may further decompensated. For that reason, I sent him today to the emergency for further investigation. For now, I reviewed the most recent blood work and there is no significant leukocytosis or electrode disturbances. There is concern for an underlying occult infection with gram-n egative bacteria in his lungs. Other possibilities that may decompensate his condition are still, cancer progression, and adrenal insufficiency as the patient has taken significant amount of steroids in the past. I would recommend hospitalization for now for further workup. Note that his mentation is altered. He does have previous history of esophageal cancer treated with chemoradiation therapy and his disease has been in remission and the most CAT scan of the chest abdomen and pelvis that was done in January 2019 showed no evidence of any disease progression. His post acute lung injury/ARDS back in January 2018 from which he recovered nicely. He has hypertension and hyperlipidemia and gout as comorbid conditions. His room air pulse ox today is 91%. Nausea. No vomiting. No diarrhea. No aspiration. He has had previous swallow evaluation in the hospital that showed adequate swallow. Note that he is also diabetic.In the hospital, the patient initially had a lactic acid level of 4.3 and it dropped down to 2.1 and later on came up to 4.2 and this morning is up to 6.2. The CAT scan of the b rain showed no acute abnormalities. It showed essentially chronic findings.. There is no evidence of any acute hemorrhage or bleeding. CAT scan of the chest also showed chronic interstitial infiltrates in the lung bases slightly more prominent compared to the earlier CAT scan. 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 The white cell count is at 5.9. Serum cortisol was 14. Urinalysis showed no infection. Influenza screen was negative. This morning he is awake and alert and stronger and tolerating diet and has no specific complaints. He is on IV fluids currently running at 120 mL an hour. Review of Systems Constitutional: Reports weakness, Denies chills, Denies fever, Eyes: denies blurred vision, denies pain Ears, nose, mouth and throat: Denies headache, Denies sore throat Cardiovascular: Denies chest pain, Denies shortness of breath Respiratory: Reports congestion, Reports cough with sputum, Reports dyspnea, Reports respiratory infections, Denies cough Gastrointestinal: Denies abdominal pain, Denies diarrhea, Denies nausea, Denies vomiting Musculoskeletal: Denies myalgias Integumentary: Denies pruritus, Denies rash Neurological: Reports change in mentation, Reports confusion, Denies numbness, Denies weakness Psychiatric: Denies anxiety, Denies depression Endocrine: Denies fatigue, Denies weight change Past Medical History Past Medical History: Cancer, Heart Failure, Diabetes Mellitus, GERD/Reflux, Hearing Disorder / Deafness, Hyperlipidemia, Hypertension, Memory Impairment, Musculoskeletal Disorder, Osteoarthritis (OA), Pneumonia, Renal Disease Additional Past Medical History / Comment(s): Fractures L2-L4 w/ [place] leg pain, epidural injections. DDD, Gout, CARDOSO'S esophagus, Esophageal CA-completed 28 radiation tx on 09/08/17, & 5 chemo tx 09/02/17. 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 "Some memory impairment RT to pain Rx." History of Any Multi-Drug Resistant Organisms: None Reported Past Surgical History: Appendectomy, Back Surgery, Orthopedic Surgery Additional Past Surgical History / Comment(s): Bilateral rotator cuff surgery, left foot surgery, thinks he has plate and screws, "esophagus radiofrequency ablation", paulina cataracts-lens implants, kyphoplasty. Pain procedures. epidural steroid injection in back Past Anesthesia/Blood Transfusion Reactions: No Reported Reaction Additional Past Anesthesia/Blood Transfusion Reaction / Comment(s): . Past Psychological History: No Psychological Hx Reported Smoking Status: Never smoker Past Alcohol Use History: Daily Additional Past Alcohol Use History / Comment(s): pt no longer drinks Past Drug Use History: None Reported - Past Family History Mother Family Medical History: Cancer Additional Family Medical History / Comment(s): kidney, Thyroid Father Family Medical History: Coronary Artery Disease (CAD) Additional Family Medical History / Comment(s): AT AGE 53. Medications and Allergies Home Medications Medication Instructions Recorded Confirmed Type Cetirizine HCl 10 mg PO DAILY 07/05/15 08/17/19 History Nitroglycerin Sl Tabs [Nitrostat] 0.4 mg SUBLINGUAL Q5M PRN 07/05/15 08/17/19 History Pravastatin Sodium [Pravachol] 80 mg PO HS@199909/01/17 08/17/19 History Allopurinol [Zyloprim] 300 mg PO DAILY 01/26/18 08/17/19 History Ipratropium-Albuterol Nebulize 3 ml INHALATION RT-Q6H 04/22/19 08/17/19 History [Duoneb 0.5 mg-3 mg/3 ml Soln] Fluticasone Nasal [place] [Flonase 2 spray EA NOSTRIL HS@199907/14/19 08/17/19 History Nasal Canal [place]] Bisacodyl [Dulcolax] 10 mg PO DAILY PRN tablet. 07/25/19 08/17/19 Rx Budesonide [Pulmicort] 1 mg INHALATION RT-BID ml 07/25/19 08/17/19 Rx Formoterol Fumarate [Perforomist] 20 mcg INHALATION RT-BID nebu 07/25/19 08/17/19 Rx Pantoprazole [Protonix] 40 mg PO [facility]. 07/25/19 08/17/19 Rx guaiFENesin-DM 100-10MG/5ML 5 ml PO BID ml 07/25/19 08/17/19 Rx [Robitussin DM] Ipratropium-Albuterol Nebulize 3 ml INHALATION RT-Q4H PRN 07/29/19 08/17/19 Hist ory [Duoneb 0.5 mg-3 mg/3 ml Soln] Potassium Chloride ER [K-Dur 20] 20 meq PO BID 07/29/19 08/17/19 History Acetaminophen Tab [Tylenol] 650 mg PO Q4HR PRN tab 08/03/19 08/17/19 Rx Cefazolin Sodium/D5w [Kefzol 2 2 gm IV Q8H #42 plast..bag 08/03/19 08/17/19 Rx Gm/D5w 100 ml] Gabapentin [Neurontin] 1,200 mg PO HS@2200 #1 cap 08/03/19 08/17/19 Rx Gabapentin [Neurontin] 600 mg PO BID #2 cap 08/03/19 08/17/19 Rx Metoprolol Tartrate [Lopressor] 50 mg PO DAILY tab 08/03/19 08/17/19 Rx Zolpidem [Ambien] 10 mg PO HS@2000 #1 tab 08/03/19 08/17/19 Rx Heparin Lock Flush 3 ml IV Q8H 08/17/19 08/17/19 History Insulin Aspart [NovoLOG] 14 units SQ AC-TID 08/17/19 08/17/19 History Insulin Glargine [Lantus] 30 unit SQ HS 08/17/19 08/17/19 History L.acidoph,Paracasei, B.lactis 1 cap PO BID 08/17/19 08/17/19 History [Probiotic] Uuawtxvh-Llrdlbhxyg-Uixk Oint 1 applic TOPICAL BID 08/17/19 08/17/19 History [Triple Antibiotic Ointment] Torsemide [Demadex] 40 mg PO DAILY 08/17/19 08/17/19 History metFORMIN HCL [Glucophage] 500 mg PO BID@0700,1600 08/17/19 08/17/19 History Allergies Allergy/AdvReac Type Severity Reaction Status Date / Time latex Allergy Rash/Hives Verified 08/17/19 11:21 penicillin G Allergy Rash/Hives Verified 08/17/19 11:21 Physical Exam Vitals: Vital Signs Temp Pulse Pulse Resp BP BP Pulse Ox 08/18/19 12:18 76 08/18/19 09:03 82 08/18/19 08:53 80 08/18/19 08:52 80 08/18/19 08:42 80 08/18/19 04:52 98.5 F 82 18 100/57 98 08/17/19 22:54 88 08/17/19 22:45 97.7 F 91 16 100/57 98 08/17/19 22:44 92 08/17/19 22:43 92 08/17/19 22:34 88 08/17/19 20:00 97.7 F 90 18 111/56 98 08/17/19 17:34 100 18 08/17/19 16:27 20 08/17/19 15:00 18 08/17/19 14:44 98.2 F 100 20 108/57 94 L 08/17/19 14:30 92 18 106/61 94 L Intake and Output 08/17/19 08/18/19 08/18/19 22:59 06:59 14:59 Intake Total 500 236 Balance 500 236 Intake: Intake, IV Titration 500 Amount Sodium Chloride 0.9% 500 500 ml 500 ml @ 999 mls/hr IV .Q31M ONE Rx#:[id number] Oral 236 Other: # Voids 2 Weight 85 kg GENERAL EXAM: Alert, pleasant 84-year-old male patient, the patient is on room air oxygen, in no acute distress, comfortable in no apparent distress. HEAD: Normocephalic/atraumatic. EYES: Normal reaction of pupils, equal size. Conjunctiva pink, sclera white. NOSE: Clear with pink turbinates. THROAT: No erythema or exudates. NECK: No masses, no JVD, no thyroid enlargement, no adenopathy. CHEST: No chest wall deformity. Symmetrical expansion. LUNGS: Equal air entry with bilateral scattered rhonchi, crackles in the posterior bases. CVS: Regular rate and rhythm, normal S1 and S2, no gallops, no murmurs, no rubs ABDOMEN: Soft, nontender. No hepatosplenomegaly, normal bowel sounds, no guarding or rigidity. EXTREMITIES: No clubbing, 1+ pitting edema in bilateral lower extremities, no cyanosis, 2+ pulses and upper and lower extremities. MUSCULOSKELETAL: Muscle strength and tone normal. SPINE: No scoliosis or deformity SKIN: No rashes CENTRAL NERVOUS SYSTEM: No focal deficits, tone is normal in all 4 extremities. PSYCHIATRIC: Alert and oriented -3. Appropriate affect. Intact judgment and insight. Results - Laboratory Findings CBC and BMP: 08/18/19 03:04 08/18/19 03:04 PT/INR, D-dimer PT 11.1 sec (9.0-12.0) 08/17/19 10:48 INR 1.1 (<1.2) 08/17/19 10:48 Abnormal lab findings: Abnormal Labs 08/17/19 08/17/19 08/17/19 10:48 10:48 10:48 RBC 3.48 L Hgb 10.8 L Hct 33.4 L RDW 16.4 H Lymphocytes # 0.9 L Sodium 136 L Chloride 96 L Glucose 133 H POC Glucose (mg/dL) Plasma Lactic Acid Nestor 4.3 H* Calcium Magnesium 1.4 L Troponin I C-Reactive Protein Albumin 3.1 L Urine Blood Ur Leukocyte Esterase Urine WBC Urine Bacteria Urine Mucus Urine Yeast (Budding) 08/17/19 08/17/19 08/17/19 10:48 12:31 15:00 RBC Hgb Hct RDW Lymphocytes # Sodium Chloride Glucose POC Glucose (mg/dL) Plasma Lactic Acid Nestor 2.1 H* Calcium Magnesium Troponin I 0.074 H* C-Reactive Protein Albumin Urine Blood Small H Ur Leukocyte Esterase Large H Urine WBC 133 H Urine Bacteria Rare H Urine Mucus Rare H Urine Yeast (Budding) Occasional H 08/17/19 08/17/19 08/17/19 17:04 18:28 18:31 RBC Hgb Hct RDW Lymphocytes # Sodium Chloride Glucose POC Glucose (mg/dL) 111 H 144 H Plasma Lactic Acid Nestor 4.2 H* Calcium Magnesium Troponin I C-Reactive Protein Albumin Urine Blood Ur Leukocyte Esterase Urine WBC Urine Bacteria Urine Mucus Urine Yeast (Budding) 08/17/19 08/17/19 08/18/19 20:29 22:51 02:03 RBC Hgb Hct RDW Lymphocytes # Sodium Chloride Glucose POC Glucose (mg/dL) 326 H 430 H Plasma Lactic Acid Nestor 4.2 H* Calcium Magnesium Troponin I C-Reactive Protein Albumin Urine Blood Ur Leukocyte Esterase Urine WBC Urine Bacteria Urine Mucus Urine Yeast (Budding) 08/18/19 08/18/19 08/18/19 03:04 03:04 03:04 RBC 2.99 L Hgb 9.1 L D Hct 29.1 L RDW 16.0 H Lymphocytes # 0.4 L Sodium 135 L Chloride Glucose 365 H POC Glucose (mg/dL) Plasma Lactic Acid Nestor 3.6 H* Calcium 7.5 L Magnesium 1.5 L Troponin I C-Reactive Protein 137.2 H Albumin Urine Blood Ur Leukocyte Esterase Urine WBC Urine Bacteria Urine Mucus Urine Yeast (Budding) 08/18/19 08/18/19 08/18/19 05:56 07:01 07:01 RBC Hgb Hct RDW Lymphocytes # Sodium Chloride Glucose POC Glucose (mg/dL) 398 H Plasma Lactic Acid Nestor 3.0 H* Calcium Magnesium Troponin I 0.035 H* C-Reactive Protein Albumin Urine Blood Ur Leukocyte Esterase Urine WBC Urine Bacteria Urine Mucus Urine Yeast (Budding) 08/18/19 08/18/19 07:14 12:00 RBC Hgb Hct RDW Lymphocytes # Sodium Chloride Glucose POC Glucose (mg/dL) 445 H 332 H Plasma Lactic Acid Nestor Calcium Magnesium Troponin I C-Reactive Protein Albumin Urine Blood Ur Leukocyte Esterase Urine WBC Urine Bacteria Urine Mucus Urine Yeast (Budding) - Diagnostic Findings CT scan - chest: image reviewed Assessment and Plan Plan: #1. Acute pneumonia, suspected, possibly recurrent based on the most recent CAT scan findings. Note that the patient was recently treated for a staphylococcal pneumonia and with sepsis and the patient is currently covered with. The patient has bilateral lower lobe pneumonia is most on the left. Nevertheless, the sputum also showed stenotrophomonas which is currently being assumed to be a colonizer by infectious disease. I think we need to give this microorganism a closer attention of the patient has been chronically ill, and symptomatic. she was transferred to rehabilitation where he completed his antibiotics. Unfortunately his condition got worse and the patient is coming in with progressive weakness, difficulty with mobility to the point where he is essentially wheelchair bound, altered mentation and decline in his health in general. He needs to be readmitted for further workup regarding this issue. #2. 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 Altered mentation at the [facility] at the time of symptom onset with coughing, confusion, and chest congestion, improved #4. Plasma lactic acidosis, possibly related to sepsis, improved with hydration #5. Elevated troponins, possibly related to sepsis #6. 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 History of esophageal cancer status post resection and subsequent radiofrequency ablation at [facility] in November 2012 with recurrence and chemoradiation in 2018 completed 09/02/2017 #8. Obesity #9. Hypertension #10. Hyperlipidemia #11. Gout #12. Lifelong nonsmoker with normal pulmonary function testing #13. History of chronic kidney disease, recovered and the patient's renal function is normal. #14. History of left carotid occlusion #15 increased lower extremity edema, with difficulty with mobility due to generalized weakness. #16 valvular heart disease with moderate degree of aortic stenosis and an ejection fraction of 55-60%. The peak gradient across the valve was 41 mmHg no significant pulmonary hypertension. #17 lactic acidosis, rule out underlying infection Plan Check pro calcitonin levels Persistent lactic acid elevation the lowest being around 1.8 on previous evaluations. Exact cause is not clear. Check CAT scan of the abdomen and pelvis to rule out any malignancy or occult infection Blood cultures ID consultation IV hydration This continued IV Solu-Medrol. We'll continue to follow.
--- NOTE | 2019-08-18 16:10 | P.PN ---
Subjective Progress Note Date: 08/18/19 Principal diagnosis: This is an 84-year-old male who was recently admitted for increasing shortness of breath, weakness, and pneumonia and is being closely monitored. Patient was recently at [facility] for continued PT/OT therapy although per family members patient continued to be quite weak and unable to get up and work with physical therapy most days. Patient was maintained on IV antibiotics in the form of cefazolin and does have a PICC line. Infectious disease is following. Pulmonary is following as well. Today patient is a little more awake and alert and able to respond appropriately to questions and commands although continues to fatigue easily, be quite lethargic, and is extremely weak. Review of systems: Cardiovascular: No reports of chest pain or palpitations Respiratory: Reports shortness of breath, reports cough GI: No reports of nausea, vomiting, or diarrhea : No reports of dysuria, reports of incontinence Constitutional: No reports of fevers, reports generalized weakness, reports fatigue Endocrine: Reports diabetes Active Medications Acetaminophen (Tylenol Tab) 650 mg PO Q4HR PRN PRN Reason: Fever and/ or Pain Albuterol/Ipratropium (Duoneb 0.5 Mg-3 Mg/3 Ml Soln) 3 ml INHALATION RT-Q4H PRN PRN Reason: Shortness Of Breath Albuterol/Ipratropium (Duoneb 0.5 Mg-3 Mg/3 Ml Soln) 3 ml INHALATION RT-QID [facility] Last Admin: 08/18/19 12:18 Dose: 3 ml Documented by: Allopurinol (Zyloprim) 300 mg PO DAILY [facility] Last Admin: 08/18/19 08:16 Dose: 300 mg Documented by: Aspirin (Aspirin) 81 mg PO DAILY [facility] Bisacodyl (Dulcolax) 10 mg PO DAILY PRN PRN Reason: Constipation Budesonide (Pulmicort) 1 mg INHALATION RT-BID [facility] Last Admin: 08/18/19 08:42 Dose: 1 mg Documented by: Fluticasone Propionate (Flonase Nasal [place]) 2 spray EA NOSTRIL HS@1999 [facility] Last Admin: 08/17/19 22:08 Dose: 2 spray Documented by: Formoterol Fumarate (Perforomist) 20 mcg INHALATION RT-BID [facility] Last Admin: 08/18/19 08:42 Dose: 20 mcg Documented by: Gabapentin (Neurontin) 600 mg PO BID@0900,1600 [facility] Last Admin: 08/18/19 08:17 Dose: 600 mg Documented by: Gabapentin (Neurontin) 1,200 mg PO HS@2200 [facility] Last Admin: 08/17/19 20:02 Dose: 1,200 mg Documented by: Guaifenesin/Dextromethorphan (Robitussin Dm) 5 ml PO BID [facility] Last Admin: 08/18/19 08:16 Dose: 5 ml Documented by: Heparin Sodium (Beef Lung) (Heparin Lock 300 Unit/3 Ml (100 Unit/Ml)) 300 unit IV Q8H [facility] Last Admin: 08/18/19 12:16 Dose: Not Given Documented by: Sodium Chloride (Saline 0.9%) 1,000 mls @ 130 mls/hr IV .Q7H42M [facility] Last Admin: 08/18/19 06:49 Dose: 130 mls/hr Documented by: Ceftriaxone Sodium 1 gm/ (Sodium Chloride) 50 mls @ 100 mls/hr IVPB Q24HR [facility] Last Admin: 08/18/19 08:15 Dose: 100 mls/hr Documented by: Insulin Aspart (Novolog) 0 unit SQ ACHS [facility]; Protocol Last Admin: 08/18/19 12:15 Dose: 6 unit Documented by: Insulin Aspart (Novolog) 14 unit SQ AC-TID [facility] Last Admin: 08/18/19 12:16 Dose: 14 unit Documented by: Insulin Detemir (Levemir) 30 unit SQ HS [facility] Last Admin: 08/17/19 22:09 Dose: 30 unit Documented by: Iopamidol (Isovue-300 (For Oral Use)) 30 ml PO Q60M PRN PRN Reason: CT Scan Stop: 08/19/19 13:21 Last Admin: 08/18/19 14:55 Dose: 30 ml Documented by: Lactobacillus Acidoph/Bulgaricus (Lactinex) 1 each PO BID [facility] Last Admin: 08/18/19 08:16 Dose: 1 each Documented by: Loratadine (Claritin) 10 mg PO DAILY [facility] Last Admin: 08/18/19 08:16 Dose: 10 mg Documented by: Metformin HCl (Glucophage) 500 mg PO BID@0700,1600 [facility] Last Admin: 08/18/19 06:48 Dose: 500 mg Documented by: Metoprolol Tartrate (Lopressor) 50 mg PO DAILY [facility] Last Admin: 08/18/19 08:17 Dose: 50 mg Documented by: Miscellaneous Information (Potassium Per Protocol) 1 each MISCELLANE DAILY PRN; Protocol PRN Reason: Per Protocol Miscellaneous Information (Magnesium Per Protocol) 1 each MISCELLANE DAILY PRN; Protocol PRN Reason: Per Protocol Neomycin/Polymyxin/Bacitracin (Triple Antibiotic Ointment) 1 applic TOPICAL BID [facility] Last Admin: 08/18/19 08:26 Dose: 1 applic Documented by: Nitroglycerin (Nitrostat) 0.4 mg SUBLINGUAL Q5M PRN PRN Reason: Chest Pain Pantoprazole Sodium (Protonix) 40 mg PO AC-BRKFST [facility] Last Admin: 08/18/19 06:48 Dose: 40 mg Documented by: Potassium Chloride (K-Dur 20) 20 meq PO BID [facility] Last Admin: 08/18/19 08:16 Dose: 20 meq Documented by: Pravastatin Sodium (Pravachol) 80 mg PO HS@1999 [facility] Last Admin: 08/17/19 22:09 Dose: 80 mg Documented by: Torsemide (Demadex) 40 mg PO DAILY [facility] Last Admin: 08/18/19 08:16 Dose: 40 mg Documented by: Zolpidem Tartrate (Ambien) 10 mg PO HS@1999 [facility] Last Admin: 08/17/19 22:17 Dose: 10 mg Documented by: Objective - Vital Signs Vital signs: Vital Signs Temp 97.9 F 08/18/19 12:00 Pulse 78 08/18/19 12:29 Resp 18 08/18/19 12:00 BP 106/55 08/18/19 12:00 Pulse Ox 96 08/18/19 12:00 Intake & Output 08/17/19 08/18/19 08/18/19 18:59 06:59 18:59 Intake Total 500 2005 Balance 500 2005 Weight 80.739 kg 85 kg Intake: Intake, IV Titration 500 1090 Amount Sodium Chloride 0.9% 1, 1040 000 ml @ 130 mls/hr IV . Q7H42M [facility] Rx#:[id number] Sodium Chloride 0.9% 500 500 ml 500 ml @ 999 mls/hr IV .Q31M ONE Rx#:[id number] cefTRIAXone 1 gm In 50 Sodium Chloride 0.9% 50 ml @ 100 mls/hr IVPB Q24HR [facility] Rx#:[id number] Oral 916 Other: Voiding Method Urinal # Voids 2 - Exam Gen: This is a 84-year-old male sitting up in bed, awake, alert and oriented 3, well-developed, well-nourished. HEENT: Head is atraumatic, normocephalic. Pupils equal, round. Sclerae is anicteric. NECK: Supple. No JVD. No lymphadenopathy. No thyromegaly. LUNGS: Diminished breath sounds at the bases with scattered rhonchi and crackles noted. Expiratory wheezing also noted on exam. No intercostal retractions. HEART: S1, S2 are muffled ABDOMEN: Soft. Obese. Bowel sounds are present. No masses. No tenderness. EXTREMITIES: No pedal edema. No calf tenderness. Mild bilateral lower extremity edema noted 1+ pitting on the right NEUROLOGICAL: Patient is awake, alert and oriented x3. Cranial nerves 2 through 12 are grossly intact. - Labs CBC & Chem 7: 08/18/19 03:08/18/19 03:04 Labs: Abnormal Lab Results - Last 24 Hours (Table) 08/17/19 08/17/19 08/17/19 Range/Units 17:04 18:28 18:31 RBC (4.30-5.90) m/uL Hgb (13.0-17.5) gm/dL Hct (39.0-53.0) % RDW (11.5-15.5) % Lymphocytes # (1.0-4.8) k/uL Sodium (137-145) mmol/L Glucose (74-99) mg/dL POC Glucose (mg/dL) 111 H 144 H (75-99) mg/dL Plasma Lactic Acid Nestor 4.2 H* (0.7-2.0) mmol/L Calcium (8.4-10.2) mg/dL Magnesium (1.6-2.3) mg/dL Troponin I (0.000-0.034) ng/mL C-Reactive Protein (<10.0) mg/L 08/17/19 08/17/19 08/18/19 Range/Units 20:29 22:51 02:03 RBC (4.30-5.90) m/uL Hgb (13.0-17.5) gm/dL Hct (39.0-53.0) % RDW (11.5-15.5) % Lymphocytes # (1.0-4.8) k/uL Sodium (137-145) mmol/L Glucose (74-99) mg/dL POC Glucose (mg/dL) 326 H 430 H (75-99) mg/dL Plasma Lactic Acid Nestor 4.2 H* (0.7-2.0) mmol/L Calcium (8.4-10.2) mg/dL Magnesium (1.6-2.3) mg/dL Troponin I (0.000-0.034) ng/mL C-Reactive Protein (<10.0) mg/L 08/18/19 08/18/19 08/18/19 Range/Units 03:04 03:04 03:04 RBC 2.99 L (4.30-5.90) m/uL Hgb 9.1 L D (13.0-17.5) gm/dL Hct 29.1 L (39.0-53.0) % RDW 16.0 H (11.5-15.5) % Lymphocytes # 0.4 L (1.0-4.8) k/uL Sodium 135 L (137-145) mmol/L Glucose 365 H (74-99) mg/dL POC Glucose (mg/dL) (75-99) mg/dL Plasma Lactic Acid Nestor 3.6 H* (0.7-2.0) mmol/L Calcium 7.5 L (8.4-10.2) mg/dL Magnesium 1.5 L (1.6-2.3) mg/dL Troponin I (0.000-0.034) ng/mL C-Reactive Protein 137.2 H (<10.0) mg/L 08/18/19 08/18/19 08/18/19 Range/Units 05:56 07:01 07:01 RBC (4.30-5.90) m/uL Hgb (13.0-17.5) gm/dL Hct (39.0-53.0) % RDW (11.5-15.5) % Lymphocytes # (1.0-4.8) k/uL Sodium (137-145) mmol/L Glucose (74-99) mg/dL POC Glucose (mg/dL) 398 H (75-99) mg/dL Plasma Lactic Acid Nestor 3.0 H* (0.7-2.0) mmol/L Calcium (8.4-10.2) mg/dL Magnesium (1.6-2.3) mg/dL Troponin I 0.035 H* (0.000-0.034) ng/mL C-Reactive Protein (<10.0) mg/L 08/18/19 08/18/19 08/18/19 Range/Units 07:14 11:57 12:00 RBC (4.30-5.90) m/uL Hgb (13.0-17.5) gm/dL Hct (39.0-53.0) % RDW (11.5-15.5) % Lymphocytes # (1.0-4.8) k/uL Sodium (137-145) mmol/L Glucose (74-99) mg/dL POC Glucose (mg/dL) 445 H 332 H (75-99) mg/dL Plasma Lactic Acid Nestor 6.2 H* (0.7-2.0) mmol/L Calcium (8.4-10.2) mg/dL Magnesium (1.6-2.3) mg/dL Troponin I (0.000-0.034) ng/mL C-Reactive Protein (<10.0) mg/L Microbiology - Last 24 Hours (Table) 08/17/19 12:31 Urine Culture - Preliminary Urine,Voided Assessment and Plan Assessment: Shortness of breath with possible interstitial lung disease, acute exacerbation, with acute bilateral pneumonia with failure of outpatient treatment History of recent MSSA sepsis, on IV cefazolin through a PICC line History of recent Stenotrophomonas maltophilia from sputum Recent computed tomography scan showed interstitial changes and possible bronchiectasis in both lower lobes History of recent congestive heart failure, acute exacerbation with acute on chronic diastolic dysfunction History of recent sepsis Elevated lactic acid of 4.3, indicative of sepsis Hyponatremia Possible acute urinary tract infection, present on admission Anemia, normocytic, anemia of chronic disease History of diabetes mellitus type 2 Gastroesophageal reflux disease Hypertension Hyperlipidemia Memory impairment History of pneumonia History of fractures, L2for with leg pain History of degenerative joint disease history of gout History of Hernandez's esophagitis History of esophageal carcinoma, completed 20 radiations and 5 chemo treatments Hiatal hernia history of nephrolithiasis History of carotid artery stenosis history of back surgery, degenerative joint disease History of bilateral rotator cuff surgery and degenerative joint disease Full code Recommendations and discussion: Recommend to continue current medications, management, and symptomatic treatment. Continue with gentle IV fluids and repeat lactic acid in the morning. Continue with IV antibiotics in the form of ceftriaxone at this time. Infectious disease is consulted. Multiple medical consultations following. Discussed with the patient and family member at length today about avoiding sedatives and continuing to encourage being awakened more active during the day with the windows open and out of the bed. PT/OT following and working with the patient. Due to multiple complex medical issues, prognosis is extremely guarded. Will continue to monitor vital signs and labs closely along with continuing with blood glucose monitoring closely as his blood sugars remain elevated. Further recommendations to follow.
--- NOTE | 2019-08-18 17:30 | ECHOF ---
Referral Reason:abn trop MEASUREMENTS -------- HEIGHT: 170.2 cm WEIGHT: 84.8 kg BP: IVSd: 1.4 cm (0.6 - 1.1) LVIDd: 3.7 cm (3.9 - 5.3) LVPWd: 1.5 cm (0.6 - 1.1) IVSs: 1.8 cm LVIDs: 2.4 cm LVPWs: 1.7 cm AV maxP.98 mmHg AV meanP.20 mmHg AR PHT: 386 ms FINDINGS -------- Sinus rhythm. Limited Study The left ventricular size is normal. There is moderate concentric left ventricular hypertrophy. O verall left ventricular systolic function is normal with, an EF between 55 - 60 %. There is moderate aortic stenosis present. Peak/mean gradient across the Aortic Valve is 50.98mmHg / 33.20mmHg. CONCLUSIONS -------- 1. Sinus rhythm. 2. Limited Study 3. The left ventricular size is normal. 4. There is moderate concentric left ventricular hypertrophy. 5. Overall left ventricular systolic function is normal with, an EF between 55 - 60 %. 6. There is moderate aortic stenosis present. 7. Peak/mean gradient across the Aortic Valve is 50.98mmHg / 33.20mmHg. CONTROL ENGINEER: Dyana Carmona RDCS
[2019-08-18 17:32] LABS: Glucose,Whole Blood 555 mg/dL (75-99)
[2019-08-18 17:34] LABS: Glucose,Whole Blood 395 mg/dL (75-99)
[2019-08-18] MEDS: ASPIRIN 81 MG PO SCH (17:45)
[2019-08-18 20:33] LABS: Glucose,Whole Blood 346 mg/dL (75-99)
[2019-08-18] MEDS: MELATONIN 3 MG TABLET PO PRN (21:39)
[2019-08-18] MEDS: FLUTICASONE 50MCG/SPRAY NASAL 16GM EA NOSTRIL SCH (21:40)
[2019-08-18] MEDS: GABAPENTIN 400 MG CAP PO SCH (21:40)
[2019-08-18] MEDS: INSULIN DETEMIR (LEVEMIR) 100 UNIT/ML SYR SQ SCH (21:40)
[2019-08-18] MEDS: PRAVASTATIN SODIUM 80 MG TAB PO SCH (21:41)
--- NOTE | 2019-08-18 22:25 | CT ---
EXAMINATION TYPE: CT abdomen pelvis w con DATE OF EXAM: 08/18/2019 COMPARISON: 02/11/2019 HISTORY: Elevated lactic acid CT DLP: 1382.1 mGycm Automated exposure control for dose reduction was used. CONTRAST: Performed with IV Contrast, patient injected with 100 mL of Isovue 300. Multiple axial sections were obtained from the diaphragm to the floor the pelvis with oral and intrav enous contrast. There is some patchy atelectasis and infiltrate at both lung bases. There there is mild pleural thick ening at the lung bases.. Heart is enlarged. There is no pericardial effusion. Liver and spleen appear normal. There is no pancreatic mass. Gallbladder appears normal. Bile ducts a re not dilated. There is no adrenal mass. Kidneys show satisfactory contrast opacification. There is no hydronephrosi s. Ureters are not dilated. There is no retroperitoneal adenopathy. Bladder distends smoothly. There is no inguinal hernia. There is some retained fecal material in the rectum that measures 6.5 cm. There is no mesenteric edema. There is no ascites or free air. There is no sign of a bowel obstructio n. Appendix is not seen. No sign of thickened appendix. Lumbar vertebra have normal alignment. There is vertebroplasty at L2 and L3 and L4. There is compression deformities up to 40%. There is also ante rior wedging at T12 30%. There is osteopenia. Bony pelvis is intact. IMPRESSION: Basilar pulmonary infiltrates and mild pleural thickening has progressed slightly compared to old CT scan. Moderate cardiomegaly. Multiple compression fractures unchanged compared to old exam. no acute abnormality within the abdomen pelvis. Mild rectal fecal impaction.
[2019-08-18] MEDS ORDERED: diphenhydrAMINE 25 MG CAP PO STA (23:53)
[2019-08-19 05:40] LABS: Basophils % (A) 0 %; Eosinophils % (A) 0 %; HCT 27.8 % (39.0-53.0); HGB 8.8 gm/dL (13.0-17.5); Hypochromasia Slight; Lymphocytes # (A) 0.7 k/uL (1.0-4.8); Lymphocytes % (A) 7 %; MCH 30.2 pg (25.0-35.0); MCHC 31.7 g/dL (31.0-37.0); MCV 95.5 fL (80.0-100.0); Mean Platelet Volume 8.7; Monocytes # (A) 0.5 k/uL (0-1.0); Monocytes % (A) 5 %; Neutrophils # (A) 8.6 k/uL (1.3-7.7); Neutrophils % (A) 86 %; Platelet Count 201 k/uL (150-450); Poikilocytosis Slight; RBC 2.91 m/uL (4.30-5.90)
[2019-08-19 05:50] LABS: African American GFR (CKD) >90 (>60 ml/min/1.73 sqM); Anion Gap 9 mmol/L; Blood Urea Nitrogen 19 mg/dL (9-20); Calcium 7.4 mg/dL (8.4-10.2); Carbon Dioxide 23 mmol/L (22-30); Chloride 104 mmol/L (98-107); Glucose 225 mg/dL (74-99); Non-African American GFR(CKD) 78 (>60 ml/min/1.73 sqM); Potassium 3.7 mmol/L (3.5-5.1); Sodium 136 mmol/L (137-145)
[2019-08-19] MEDS: metFORMIN 500 MG TAB PO SCH ×2 (06:54→16:43)
[2019-08-19] MEDS: SODIUM CHLORIDE 0.9% 1,000 ML IV SCH ×3 (06:54→22:37)
[2019-08-19] MEDS: PANTOPRAZOLE 40 MG TABLET PO SCH (06:54)
[2019-08-19] MEDS: BUDESONIDE 1 MG/2 ML NEBU INHALATION SCH ×2 (06:59→20:05)
[2019-08-19] MEDS: FORMOTEROL FUMARATE 20 MCG/2 ML NEBU INHALATION SCH ×2 (06:59→20:05)
[2019-08-19] MEDS: IPRATROPIUM-ALBUTEROL 3 ML NEB INHALATION SCH ×4 (06:59→20:04)
[2019-08-19 07:29] LABS: Glucose,Whole Blood 280 mg/dL (75-99)
--- NOTE | 2019-08-19 07:38 | P.CONS ---
History of Present Illness - Reason for Consult Consult date: 08/18/19 pneumonia Requesting physician: Bear Sampson - Chief Complaint weakness and decreaed oral intake x few days - History of Present Illness Patient is 84-year-old male with a past medical history significant for COPD in this patient who did have a recent history of MSSA pneumonia and bacteremia for the patient was currently getting IV cefazolin 2 g every 8 hour as scheduled to complete this Monday, August 19, 2019 the patient has been brought into the ER yesterday morning by the family because of decreased oral intake sleeping a lot and decreased level of consciousness patient was noticed to be currently in 2-1 side with concern for possible CVA with the symptom had the patient was brought into the ER on arrival to the ER the patient has been afebrile the patient white count has been normal is 8.2 lactic acid was elevated patient did have a CT of the brain that was negative for any bleed and some degenerative changes patient did have a chest x-ray very trace right pleural effusion and redemonstration of cardiomegaly no new focal consolidation is seen subsequently a CT of the chest has been done as well which shows patchy bilateral lower lobe infiltrate and atelectasis slightly worse than last exam patient antibiotic has been adjusted to Rocephin 1 g daily in addition to the IV fluid he has been admitted to the hospital infectious disease was consulted for further recommendation about antibiotic at the time of evaluation this afternoon the patient has improved significantly he is more awake and alert he is feeling a bit stronger but denies having any chest pain cough seem to be baseline and dry break up any sputum no nausea no vomiting no abdominal pain no diarrhea. Review of Systems Positive point has been mentioned in HPI rest of the systems are negative Past Medical History Past Medical History: Cancer, Heart Failure, Diabetes Mellitus, GERD/Reflux, Hearing Disorder / Deafness, Hyperlipidemia, Hypertension, Memory Impairment, Musculoskeletal Disorder, Osteoarthritis (OA), Pneumonia, Renal Disease Additional Past Medical History / Comment(s): Fractures L2-L4 w/ paul[place] leg pain, epidural injections. DDD, Gout, CARDOSO'S esophagus, Esophageal CA-completed 28 radiation tx on 09/08/17, & 5 chemo tx 09/02/17. 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 "Some memory impairment RT to pain Rx." History of Any Multi-Drug Resistant Organisms: None Reported Past Surgical History: Appendectomy, Back Surgery, Orthopedic Surgery Additional Past Surgical History / Comment(s): Bilateral rotator cuff surgery, left foot surgery, thinks he has plate and screws, "esophagus radiofrequency ablation", paulina cataracts-lens implants, kyphoplasty. Pain procedures. epidural steroid injection in back Past Anesthesia/Blood Transfusion Reactions: No Reported Reaction Additional Past Anesthesia/Blood Transfusion Reaction / Comm: . Past Psychological History: No Psychological Hx Reported Smoking Status: Never smoker Past Alcohol Use History: Daily Additional Past Alcohol Use History / Comment(s): pt no longer drinks Past Drug Use History: None Reported - Past Family History Mother Family Medical History: Cancer Additional Family Medical History / Comment(s): kidney, Thyroid Father Family Medical History: Coronary Artery Disease (CAD) Additional Family Medical History / Comment(s): AT AGE 53. Medications and Allergies Home Medications Medication Instructions Recorded Confirmed Type Cetirizine HCl 10 mg PO DAILY 07/05/15 08/17/19 History Nitroglycerin Sl Tabs [Nitrostat] 0.4 mg SUBLINGUAL Q5M PRN 07/05/15 08/17/19 History Pravastatin Sodium [Pravachol] 80 mg PO HS@199909/01/17 08/17/19 History Allopurinol [Zyloprim] 300 mg PO DAILY 01/26/18 08/17/19 History Ipratropium-Albuterol Nebulize 3 ml INHALATION RT-Q6H 04/22/19 08/17/19 History [Duoneb 0.5 mg-3 mg/3 ml Soln] Fluticasone Nasal Winder [Flonase 2 spray EA NOSTRIL HS@199907/14/19 08/17/19 History Nasal Winder] Bisacodyl [Dulcolax] 10 mg PO DAILY PRN tablet. 07/25/19 08/17/19 Rx Budesonide [Pulmicort] 1 mg INHALATION RT-BID ml 07/25/19 08/17/19 Rx Formoterol Fumarate [Perforomist] 20 mcg INHALATION RT-BID nebu 07/25/19 08/17/19 Rx Pantoprazole [Protonix] 40 mg PO AC-BRKFST tablet. 07/25/19 08/17/19 Rx guaiFENesin-DM 100-10MG/5ML 5 ml PO BID ml 07/25/19 08/17/19 Rx [Robitussin DM] Ipratropium-Albuterol Nebulize 3 ml INHALATION RT-Q4H PRN 07/29/19 08/17/19 History [Duoneb 0.5 mg-3 mg/3 ml Soln] Potassium Chloride ER [K-Dur 20] 20 meq PO BID 07/29/19 08/17/19 History Acetaminophen Tab [Tylenol] 650 mg PO Q4HR PRN tab 08/03/19 08/17/19 Rx Cefazolin Sodium/D5w [Kefzol 2 2 gm IV Q8H #42 plast..bag 08/03/19 08/17/19 Rx Gm/D5w 100 ml] Gabapentin [Neurontin] 1,200 mg PO HS@2200 #1 cap 08/03/19 08/17/19 Rx Gabapentin [Neurontin] 600 mg PO BID #2 cap 08/03/19 08/17/19 Rx Metoprolol Tartrate [Lopressor] 50 mg PO DAILY tab 08/03/19 08/17/19 Rx Zolpidem [Ambien] 10 mg PO HS@2000 #1 tab 08/03/19 08/17/19 Rx Heparin Lock Flush 3 ml IV Q8H 08/17/19 08/17/19 History Insulin Aspart [NovoLOG] 14 units SQ AC-TID 08/17/19 08/17/19 History Insulin Glargine [Lantus] 30 unit SQ HS 08/17/19 08/17/19 History L.acidoph,Paracasei, B.lactis 1 cap PO BID 08/17/19 08/17/19 History [Probiotic] Ddrhhtax-Uuaybgrxtz-Yjtu Oint 1 applic TOPICAL BID 08/17/19 08/17/19 History [Triple Antibiotic Ointment] Torsemide [Demadex] 40 mg PO DAILY 08/17/19 08/17/19 History metFORMIN HCL [Glucophage] 500 mg PO BID@0700,1600 08/17/19 08/17/19 History Allergies Allergy/AdvReac Type Severity Reaction Status Date / Time latex Allergy Rash/Hives Verified 08/17/19 11:21 penicillin G Allergy Rash/Hives Verified 08/17/19 11:21 Physical Exam Vitals: Vital Signs Temp Pulse Pulse Resp BP BP Pulse Ox 08/18/19 09:03 82 08/18/19 08:53 80 08/18/19 08:52 80 08/18/19 08:42 80 08/18/19 04:52 98.5 F 82 18 100/57 98 08/17/19 22:54 88 08/17/19 22:45 97.7 F 91 16 100/57 98 08/17/19 22:44 92 08/17/19 22:43 92 08/17/19 22:34 88 08/17/19 20:00 97.7 F 90 18 111/56 98 08/17/19 17:34 100 18 08/17/19 16:27 20 08/17/19 15:00 18 08/17/19 14:44 98.2 F 100 20 108/57 94 L 08/17/19 14:30 92 18 106/61 94 L Intake and Output 08/17/19 08/18/19 08/18/19 22:59 06:59 14:59 Intake Total 500 236 Balance 500 236 Intake: Intake, IV Titration 500 Amount Sodium Chloride 0.9% 500 500 ml 500 ml @ 999 mls/hr IV .Q31M ONE Rx#:[id number] Oral 236 Other: # Voids 2 Weight 85 kg GENERAL DESCRIPTION: Elderly male lying in bed, no distress. No tachypnea or accessory muscle of respiration use. HEENT: Shows Pallor , no scleral icterus. Oral mucous membrane is dry. NECK: Trachea central, no thyromegaly. LUNGS: Unlabored breathing. Decreased breath sound at the base. No wheeze or crackle. HEART: S1, S2, regular rate and rhythm. ABDOMEN: Soft, no tenderness , guarding or rigidity EXTREMITIES: No edema of feet. SKIN: No rash, no masses palpable. NEUROLOGICAL: The patient is awake, alert, oriented x3, mood and affect normal. Results CBC & Chem 7: 08/19/19 05:14 08/19/19 05:15 Labs: Abnormal Lab Results - Last 24 Hours (Table) 08/17/19 08/17/19 08/17/19 Range/Units 10:48 12:31 15:00 RBC (4.30-5.90) m/uL Hgb (13.0-17.5) gm/dL Hct (39.0-53.0) % RDW (11.5-15.5) % Lymphocytes # (1.0-4.8) k/uL Sodium (137-145) mmol/L Glucose (74-99) mg/dL POC Glucose (mg/dL) (75-99) mg/dL Plasma Lactic Acid Nestor 2.1 H* (0.7-2.0) mmol/L Calcium (8.4-10.2) mg/dL Magnesium (1.6-2.3) mg/dL Troponin I 0.074 H* (0.000-0.034) ng/mL C-Reactive Protein (<10.0) mg/L Urine Blood Small H (Negative) Ur Leukocyte Esterase Large H (Negative) Urine WBC 133 H (0-5) /hpf Urine Bacteria Rare H (None) /hpf Urine Mucus Rare H (None) /hpf Urine Yeast (Budding) Occasional H (None) /hpf 08/17/19 08/17/19 08/17/19 Range/Units 17:04 18:28 18:31 RBC (4.30-5.90) m/uL Hgb (13.0-17.5) gm/dL Hct (39.0-53.0) % RDW (11.5-15.5) % Lymphocytes # (1.0-4.8) k/uL Sodium (137-145) mmol/L Glucose (74-99) mg/dL POC Glucose (mg/dL) 111 H 144 H (75-99) mg/dL Plasma Lactic Acid Nestor 4.2 H* (0.7-2.0) mmol/L Calcium (8.4-10.2) mg/dL Magnesium (1.6-2.3) mg/dL Troponin I (0.000-0.034) ng/mL C-Reactive Protein (<10.0) mg/L Urine Blood (Negative) Ur Leukocyte Esterase (Negative) Urine WBC (0-5) /hpf Urine Bacteria (None) /hpf Urine Mucus (None) /hpf Urine Yeast (Budding) (None) /hpf 08/17/19 08/17/19 08/18/19 Range/Units 20:29 22:51 02:03 RBC (4.30-5.90) m/uL Hgb (13.0-17.5) gm/dL Hct (39.0-53.0) % RDW (11.5-15.5) % Lymphocytes # (1.0-4.8) k/uL Sodium (137-145) mmol/L Glucose (74-99) mg/dL POC Glucose (mg/dL) 326 H 430 H (75-99) mg/dL Plasma Lactic Acid Nestor 4.2 H* (0.7-2.0) mmol/L Calcium (8.4-10.2) mg/dL Magnesium (1.6-2.3) mg/dL Troponin I (0.000-0.034) ng/mL C-Reactive Protein (<10.0) mg/L Urine Blood (Negative) Ur Leukocyte Esterase (Negative) Urine WBC (0-5) /hpf Urine Bacteria (None) /hpf Urine Mucus (None) /hpf Urine Yeast (Budding) (None) /hpf 08/18/19 08/18/19 08/18/19 Range/Units 03:04 03:04 03:04 RBC 2.99 L (4.30-5.90) m/uL Hgb 9.1 L D (13.0-17.5) gm/dL Hct 29.1 L (39.0-53.0) % RDW 16.0 H (11.5-15.5) % Lymphocytes # 0.4 L (1.0-4.8) k/uL Sodium 135 L (137-145) mmol/L Glucose 365 H (74-99) mg/dL POC Glucose (mg/dL) (75-99) mg/dL Plasma Lactic Acid Nestor 3.6 H* (0.7-2.0) mmol/L Calcium 7.5 L (8.4-10.2) mg/dL Magnesium 1.5 L (1.6-2.3) mg/dL Troponin I (0.000-0.034) ng/mL C-Reactive Protein 137.2 H (<10.0) mg/L Urine Blood (Negative) Ur Leukocyte Esterase (Negative) Urine WBC (0-5) /hpf Urine Bacteria (None) /hpf Urine Mucus (None) /hpf Urine Yeast (Budding) (None) /hpf 03/05/20 03/05/20 03/05/20 Range/Units 05:56 07:01 07:01 RBC (4.30-5.90) m/uL Hgb (13.0-17.5) gm/dL Hct (39.0-53.0) % RDW (11.5-15.5) % Lymphocytes # (1.0-4.8) k/uL Sodium (137-145) mmol/L Glucose (74-99) mg/dL POC Glucose (mg/dL) 398 H (75-99) mg/dL Plasma Lactic Acid Nestor 3.0 H* (0.7-2.0) mmol/L Calcium (8.4-10.2) mg/dL Magnesium (1.6-2.3) mg/dL Troponin I 0.035 H* (0.000-0.034) ng/mL C-Reactive Protein (<10.0) mg/L Urine Blood (Negative) Ur Leukocyte Esterase (Negative) Urine WBC (0-5) /hpf Urine Bacteria (None) /hpf Urine Mucus (None) /hpf Urine Yeast (Budding) (None) /hpf 08/18/19 Range/Units 07:14 RBC (4.30-5.90) m/uL Hgb (13.0-17.5) gm/dL Hct (39.0-53.0) % RDW (11.5-15.5) % Lymphocytes # (1.0-4.8) k/uL Sodium (137-145) mmol/L Glucose (74-99) mg/dL POC Glucose (mg/dL) 445 H (75-99) mg/dL Plasma Lactic Acid Nestor (0.7-2.0) mmol/L Calcium (8.4-10.2) mg/dL Magnesium (1.6-2.3) mg/dL Troponin I (0.000-0.034) ng/mL C-Reactive Protein (<10.0) mg/L Urine Blood (Negative) Ur Leukocyte Esterase (Negative) Urine WBC (0-5) /hpf Urine Bacteria (None) /hpf Urine Mucus (None) /hpf Urine Yeast (Budding) (None) /hpf Microbiology - Last 24 Hours (Table) 08/17/19 12:31 Urine Culture - Preliminary Urine,Voided Assessment and Plan Assessment: Patient presented to hospital with weakness lethargy decreased oral intake could be related to dehydration as the patient seems to have shown clinical improvement overnight after the patient has been rehydrated, the patient recently being treated for MSSA bacteremia and pneumonia which apparently has been adequately treated at this admission patient with no fever or elevated white count no significant cough or sputum production chest x-ray did not show any acute infiltrate CT with slight worsening which will be concerning though clinically not behaving as worsening pneumonia (1) Pneumonia Current Visit: Yes Status: Acute Code(s): J18.9 - PNEUMONIA, UNSPECIFIED ORGANISM SNOMED Code(s): 496449103 Plan: 1-CT was reviewed with the personal vehicle advisor and case discussed, in view of the clinical improvement may consider completing his antibiotic therapy or to be more aggressive patient may benefit from bronchoscopy deep culture and possible transbronchial biopsy to rule out any invasive fungal infection or bacterial infection that may need further treatment 2-for now continue with IV fluids We will follow on clinical condition and cultures to further adjust medication if needed Thank you for this consultation we will follow the patient along with you Family at the bedside questions were answered Time with Patient: Greater than 30
[2019-08-19] MEDS: NEOMYCIN-BACITRACIN-POLY OINT 14 GM TUBE TOPICAL SCH ×2 (09:06→21:11)
[2019-08-19] MEDS: INSULIN ASPART (NovoLOG) 100 UNIT/ML VIAL SQ SCH ×7 (09:06→21:26)
[2019-08-19] MEDS: GABAPENTIN 300 MG CAP PO SCH ×2 (09:06→16:43)
[2019-08-19] MEDS: ALLOPURINOL 300 MG TAB PO SCH (09:06)
[2019-08-19] MEDS: ASPIRIN 81 MG PO SCH (09:07)
[2019-08-19] MEDS: LORATADINE 10 MG TAB PO SCH (09:07)
[2019-08-19] MEDS: guaiFENesin-DM 100-10MG/5ML 10 ML CUP PO SCH ×2 (09:07→21:10)
[2019-08-19] MEDS: LACTOBACILLUS ACIDOPH & BULGAR 1 EACH PACKET PO SCH ×2 (09:08→21:10)
[2019-08-19] MEDS: TORSEMIDE 20 MG TAB PO SCH (09:09)
[2019-08-19] MEDS: METOPROLOL TARTRATE 50 MG TAB PO SCH (09:12)
[2019-08-19] MEDS: POTASSIUM CHLORIDE ER 20 MEQ TAB.ER PO SCH ×2 (09:12→21:09)
--- NOTE | 2019-08-19 11:33 | PN ---
PROGRESS NOTE Mr. Bradford is an 84-year-old male with a history of hypertension, hyperlipidemia, diabetes, prior history of esophageal cancer, history of peripheral vascular disease, who presented with symptoms of progressive dyspnea and change in mental status and evidence of pneumonia. Cardiology consultation was requested because of the mild elevation of the troponin. Patient continues to be dyspneic, although better. He denies any chest pain. He continues to cough, no wheezing. He denies any nausea or vomiting. He continued to be in sinus mechanism. He had an echocardiogram done yesterday that revealed a preserved ventricular systolic function with moderate aortic stenosis with a mean gradient of 33 mm of Hg. He continues to be at this time on aspirin once a day, Fluticasone, gabapentin, insulin, metformin 500 mg twice a day, metoprolol tartrate 50 mg daily, Demodex. PHYSICAL EXAMINATION: Blood pressure 106/50 with a heart in the 90s. LUNGS: With decreased breath sounds bilaterally with scattered rhonchi. HEART: Regular rate and rhythm, S1, S2. No S3 with systolic murmur at the base, no diastolic murmur. ABDOMEN: Soft, nontender. EXTREMITIES: Trace to 1+ edema. LAB DATA: Revealed a plasma lactic acid of 4.8. Remaining elevated BUN creatinine 19 and 0.91. His calcium is 7.4, hemoglobin of 8.8. IMPRESSION: 1. Pneumonia, being treated by Dr. Brown. Patient has a known history of lung disease. 2. Mild troponin elevation related to type 2 event related to the pneumonia. 3. Persistent lactic acidosis. 4. Prior history of pulmonary infection. 5. History of esophageal cancer. 6. Hypertension. 7. Hyperlipidemia. 8. Moderate aortic stenosis. RECOMMENDATION: From the cardiac standpoint, I will continue present therapy. I see no evidence of active cardiac issue at this time. The aortic stenosis does not appear to be significant enough that intervention is needed. We will see him on as-needed basis. Please feel free to call us for any question. MMODL / IJN: [id number] /
[2019-08-19 12:55] LABS: Glucose,Whole Blood 253 mg/dL (75-99)
--- NOTE | 2019-08-19 15:24 | P.PN ---
Subjective Progress Note Date: 08/19/19 This is a-year-old male patient was in rehabilitation was progressively For That Reason He Was Brought Infection. X-Ray Came into My Office and I Directed Him. The Patient Came in for Altered Mentation, Generalized Weakness, Shortness Breath, Cough, Diminished Appetite, Inability to Walk and generalized weakness without any significant focal neurological deficit. No fever. No chills. No leukocytosis. No diarrhea or nausea or vomiting or abdominal pain. No aspiration. I was quite shocked to see the massive declined that he had in his condition yesterday in the office and I made recommendations to admit this patient to the hospital for further workup. Note that he was in the hospital approximately 2 weeks ago for a underlying pneumonia. He was diagnosed having staphylococcal pneumonia with bacteremia as the bacteria was cultured also in his blood. Nevertheless, the sputum and the previous bronchial alveolar lavage is that were done also showed Stenotrophomonas. We had lengthy discussion with the sections disease specialist. We decided to hold off treating this gram- negative bacteria and concentrate mainly on the staphylococcal infection knowing that the patient had a MSSA pneumonia and bacteremia. After some limited improvement, the patient was discharged to [facility] had unfortunately, he did not have any success in terms of rehabilitation. He completed his antibiotic course. His condition got progressively worse. He is extremely weak. He is unable to get up and walk. At times is confused. He is lethargic. Is short of breath. There is a steady decline in his health in general and there is obvious concern that the patient may further decompensated. For that reason, I sent him today to the emergency for further investigation. For now, I reviewed the most recent blood work and there is no significant leukocytosis or electrode disturbances. There is concern for an underlying occult infection with gram- negative bacteria in his lungs. Other possibilities that may decompensate his condition are still, cancer progression, and adrenal insufficiency as the patient has taken significant amount of steroids in the past. I would recommend hospitalization for now for further workup. Note that his mentation is altered. He does have previous history of esophageal cancer treated with chemoradiation therapy and his disease has been in remission and the most CAT scan of the chest abdomen and pelvis that was done in January 2019 showed no evidence of any disease progression. His post acute lung injury/ARDS back in January 2018 from which he recovered nicely. He has hypertension and hyperlipidemia and gout as comorbid conditions. His room air pulse ox today is 91%. Nausea. No vomiting. No diarrhea. No aspiration. He has had previous swallow evaluation in the hospital that showed adequate swallow. Note that he is also diabetic.In the hospital, the patient initially had a lactic acid level of 4.3 and it dropped down to 2.1 and later on came up to 4.2 and this morning is up to 6.2. The CAT scan of the brain showed no acute abnormalities. It showed essentially chronic findings.. There is no evidence of any acute hemorrhage or bleeding. CAT scan of the chest also showed chronic interstitial infiltrates in the lung bases slightly more prominent compared to the earlier CAT scan. 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 The white cell count is at 5.9. Serum cortisol was 14. Urinalysis showed no infection. Influenza screen was negative. This morning he is awake and alert and stronger and tolerating diet and has no specific complaints. He is on IV fluids currently running at 120 mL an hour. On 08/19/2019 patient seen in follow-up on selective care unit, he is sitting up in the recliner, in no acute distress, mentation is back to baseline, patient is awake and alert and oriented 3, room air pulse ox is 95%, his been afebrile, blood pressure stable, at 109/65, no tachycardia, he does have occasional coughing spells, but his cough is dry, and nonproductive, lung sounds reveal some inspiratory crackles over left lower lobe posteriorly, no major rhonchi or wheezing noted on today's exam. Patient is receiving IV hydration in the form of 0.9 normal saline at a rate of 1:30 ML per hour, tolerating oral diet, no n ausea vomiting or diarrhea. Empiric antibiotics in the form of Rocephin, urine culture showed gram-negative bacilli, final cultures pending. Blood cultures have been negative thus far, today's lab have been reviewed, white blood cell count is 10, hemoglobin is 8.8, electrolytes and renal profile are unremarkable. CT of the abdomen and pelvis showed basilar pulmonary infiltrates and bilateral pleural thickening, progressed slightly compared to old computed tomography scan, moderate cardiomegaly, multiple compression fractures no acute abnormality within the abdomen or pelvis. Objective - Vital Signs Vital signs: Vital Signs Temp 97 F L 08/19/19 12:15 Pulse 83 08/19/19 12:15 Resp 17 08/19/19 12:15 BP 109/65 08/19/19 12:15 Pulse Ox 95 08/19/19 12:15 Intake & Output 08/18/19 08/19/19 08/19/19 18:59 06:59 18:59 Intake Total 2482 572 Output Total 400 Balance 2482 -400 572 Weight 86.3 kg Intake: Intake, IV Titration 1090 Amount Sodium Chloride 0.9% 1, 1040 000 ml @ 130 mls/hr IV . Q7H42M [facility] Rx#:[id number] cefTRIAXone 1 gm In 50 Sodium Chloride 0.9% 50 ml @ 100 mls/hr IVPB Q24HR [facility] Rx#:[id number] Oral 1392 572 Output: Urine 400 Other: Voiding Method Urinal Bedside Commode Urinal # Voids 1 # Bowel Movements 1 - Exam GENERAL EXAM: Alert, pleasant 84-year-old male patient, the patient is on room air oxygen, in no acute distress, comfortable in no apparent distress. HEAD: Normocephalic/atraumatic. EYES: Normal reaction of pupils, equal size. Conjunctiva pink, sclera white. NOSE: Clear with pink turbinates. THROAT: No erythema or exudates. NECK: No masses, no JVD, no thyroid enlargement, no adenopathy. CHEST: No chest wall deformity. Symmetrical expansion. LUNGS: Equal air entry with bilateral scattered rhonchi, crackles in the posterior bases. CVS: Regular rate and rhythm, normal S1 and S2, no gallops, no murmurs, no rubs ABDOMEN: Soft, nontender. No hepatosplenomegaly, normal bowel sounds, no guarding or rigidity. EXTREMITIES: No clubbing, 1+ pitting edema in bilateral lower extremities, no cyanosis, 2+ pulses and upper and lower extremities. MUSCULOSKELETAL: Muscle strength and tone normal. SPINE: No scoliosis or deformity SKIN: No rashes CENTRAL NERVOUS SYSTEM: No focal deficits, tone is normal in all 4 extremities. PSYCHIATRIC: Alert and oriented -3. Appropriate affect. Intact judgment and insight. - Labs CBC & Chem 7: 08/19/19 05:14 08/19/19 05:15 Labs: Abnormal Lab Results - Last 24 Hours (Table) 08/17/19 08/18/19 08/18/19 Range/Units 10:48 03:04 17:30 RBC (4.30-5.90) m/uL Hgb (13.0-17.5) gm/dL Hct (39.0-53.0) % RDW (11.5-15.5) % Neutrophils # (1.3-7.7) k/uL Lymphocytes # (1.0-4.8) k/uL Sodium (137-145) mmol/L Glucose (74-99) mg/dL POC Glucose (mg/dL) 555 H (75-99) mg/dL Plasma Lactic Acid Nestor (0.7-2.0) mmol/L Calcium (8.4-10.2) mg/dL Procalcitonin 0.26 H (0.02-0.09) ng/mL Gabapentin 26.8 H (2.0-12.0) ug/mL 08/18/19 08/18/19 08/19/19 Range/Units 17:32 20:31 05:14 RBC 2.91 L (4.30-5.90) m/uL Hgb 8.8 L (13.0-17.5) gm/dL Hct 27.8 L (39.0-53.0) % RDW 16.0 H (11.5-15.5) % Neutrophils # 8.6 H (1.3-7.7) k/uL Lymphocytes # 0.7 L (1.0-4.8) k/uL Sodium (137-145) mmol/L Glucose (74-99) mg/dL POC Glucose (mg/dL) 395 H 346 H (75-99) mg/dL Plasma Lactic Acid Nestor (0.7-2.0) mmol/L Calcium (8.4-10.2) mg/dL Procalcitonin (0.02-0.09) ng/mL Gabapentin (2.0-12.0) ug/mL 08/19/19 08/19/19 08/19/19 Range/Units 05:15 05:15 07:27 RBC (4.30-5.90) m/uL Hgb (13.0-17.5) gm/dL Hct (39.0-53.0) % RDW (11.5-15.5) % Neutrophils # (1.3-7.7) k/uL Lymphocytes # (1.0-4.8) k/uL Sodium 136 L (137-145) mmol/L Glucose 225 H (74-99) mg/dL POC Glucose (mg/dL) 280 H (75-99) mg/dL Plasma Lactic Acid Nestor 3.7 H* (0.7-2.0) mmol/L Calcium 7.4 L (8.4-10.2) mg/dL Procalcitonin (0.02-0.09) ng/mL Gabapentin (2.0-12.0) ug/mL 08/19/19 08/19/19 08/19/19 Range/Units 09:17 12:53 13:47 RBC (4.30-5.90) m/uL Hgb (13.0-17.5) gm/dL Hct (39.0-53.0) % RDW (11.5-15.5) % Neutrophils # (1.3-7.7) k/uL Lymphocytes # (1.0-4.8) k/uL Sodium (137-145) mmol/L Glucose (74-99) mg/dL POC Glucose (mg/dL) 253 H (75-99) mg/dL Plasma Lactic Acid Nestor 4.8 H* 5.2 H* (0.7-2.0) mmol/L Calcium (8.4-10.2) mg/dL Procalcitonin (0.02-0.09) ng/mL Gabapentin (2.0-12.0) ug/mL Microbiology - Last 24 Hours (Table) 08/17/19 12:31 Urine Culture - Preliminary Urine,Voided Gram Neg Bacilli 08/17/19 14:25 Blood Culture - Preliminary Blood No Growth after 24 hours Assessment and Plan Plan: Assessment: #1. Acute pneumonia, suspected, possibly recurrent based on the most recent CAT scan findings. Note that the patient was recently treated for a staphylococcal pneumonia and with sepsis and the patient is currently covered with. The patient has bilateral lower lobe pneumonia is most on the left. Nevertheless, the sputum also showed stenotrophomonas which is currently being assumed to be a colonizer by infectious disease. I think we need to give this microorganism a closer attention of the patient has been chronically ill, and symptomatic. she was transferred to rehabilitation where he completed his antibiotics. Unfortunately his condition got worse and the patient is coming in with progressive weakness, difficulty with mobility to the point where he is essentially wheelchair bound, altered mentation and decline in his health in general. He needs to be readmitted for further workup regarding this issue. #2. 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 Altered mentation at the ECF at the time of symptom onset with coughing, confusion, and chest congestion, improved #4. Plasma lactic acidosis, possibly related to sepsis, improved with hydration #5. Elevated troponins, possibly related to sepsis #6. 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 History of esophageal cancer status post resection and subsequent radiofrequency ablation at [facility] in November 2012 with recurrence and chemoradiation in 2018 completed 09/02/2017 #8. Obesity #9. Hypertension #10. Hyperlipidemia #11. Gout #12. Lifelong nonsmoker with normal pulmonary function testing #13. History of chronic kidney disease, recovered and the patient's renal function is normal. #14. History of left carotid occlusion #15 increased lower extremity edema, with difficulty with mobility due to generalized weakness. #16 valvular heart disease with moderate degree of aortic stenosis and an ejection fraction of 55-60%. The peak gradient across the valve was 41 mmHg no significant pulmonary hypertension. #17 lactic acidosis, rule out underlying infection Plan: Continue current medical treatment, patient is feeling and looking much better, will await final culture of the urine gram-negative organism. He was covered with Rocephin for now, his been afebrile, hemodynamically stable, no worsening shortness of breath. No altered mentation. Pro-calcitonin level did come back elevated to 0.26. CT of the abdomen and pelvis showed no intra-abdominal or pelvic abnormality. We'll continue current medical treatment, patient is an ticipated to stay in the hospital over the weekend, and she will likely need ECF placement for rehabilitation I performed a history & physical examination of the patient and discussed their management with my nurse practitioner, Shae Freeman. I reviewed the nurse practitioner's note and agree with the documented findings and plan of care. Lung sounds are positive for diminished breath sounds, and crackles at the bases. The findings and the impression was discussed with the patient. I atte st to the documentation by the nurse practitioner. Time with Patient: Less than 30
--- NOTE | 2019-08-19 15:52 | P.PN ---
Subjective Progress Note Date: 08/19/19 Principal diagnosis: This is an 84-year-old male who was recently admitted for increasing shortness of breath, weakness, and pneumonia and is being closely monitored. Patient was recently at [facility] for continued PT/OT therapy although per family members patient continued to be quite weak and unable to get up and work with physical therapy most days. Patient was maintained on IV antibiotics in the form of cefazolin and does have a PICC line. Infectious disease is following. Pulmonary is following as well. Today patient is a little more awake and alert and able to respond appropriately to questions and commands although continues to fatigue easily, be quite lethargic, and is extremely weak. 08/19/2019 She was seen and examined in follow-up today more awake and alert and responding appropriately to questions and commands. Urine cultures thus far showing gram- negative bacilli and will await culture finalization. Blood cultures thus far remain negative. Patient to continue on IV Rocephin at this time. Infectious disease is following. Pulmonary and cardiology are following as well. Patient continues to be quite weak and having issues urinating due to extreme weakness and inability to get up and out of the bed fast enough to sit at the side of the bed to urinate. Discussed with the patient about discharge planning needs and returning to ECF for continued PT/OT therapy. Patient states he would like to go home although family would like the patient to return to the ECF as he continues to be quite weak and lethargic. Discussed with the patient about increasing activity as tolerated and sitting up in the chair with the window open and out of the bed during the day. Lactic acid continues to be elevated and is currently 5.2. Patient is maintained on IV normal saline at 130 mL per hour and to continue at this time. Currently no reports of chest pain, worsening shortness of breath, or palpitations. Patient is afebrile. No reports of nausea or vomiting and patient is tolerating diet. Will continue to monitor closely. Objective - Vital Signs Vital signs: Vital Signs Temp 97 F L 08/19/19 12:15 Pulse 83 08/19/19 12:15 Resp 17 08/19/19 12:15 BP 109/65 08/19/19 12:15 Pulse Ox 95 08/19/19 12:15 Intake & Output 08/18/19 08/19/19 08/19/19 18:59 06:59 18:59 Intake Total 2482 572 Output Total 400 Balance 2482 -400 572 Weight 86.3 kg Intake: Intake, IV Titration 1090 Amount Sodium Chloride 0.9% 1, 1040 000 ml @ 130 mls/hr IV . Q7H42M [facility] Rx#:[id number] cefTRIAXone 1 gm In 50 Sodium Chloride 0.9% 50 ml @ 100 mls/hr IVPB Q24HR [facility] Rx#:[id number] Oral 1392 572 Output: Urine 400 Other: Voiding Method Urinal Bedside Commode Urinal # Voids 1 # Bowel Movements 1 - Exam Gen: This is a 84-year-old male sitting up in the chair, awake, alert and oriented 3, well-developed, well-nourished. Temp is 96.7F, pulse is 91, respirations are 18, blood pressure is 106/53, oxygen saturation is 95% on room air. HEENT: Head is atraumatic, normocephalic. Pupils equal, round. Sclerae is anicteric. NECK: Supple. No JVD. No lymphadenopathy. No thyromegaly. LUNGS: Diminished breath sounds at the bases with scattered rhonchi and crackles noted. Expiratory wheezing also noted on exam. No intercostal retractions. HEART: S1, S2 are muffled ABDOMEN: Soft. Obese. Bowel sounds are present. No masses. No tenderness. EXTREMITIES: No pedal edema. No calf tenderness. Mild bilateral lower extremity edema noted 1+ pitting on the right NEUROLOGICAL: Patient is awake, alert and oriented x3. Cranial nerves 2 through 12 are grossly intact. - Labs CBC & Chem 7: 08/19/19 05:14 08/19/19 05:15 Labs: Abnormal Lab Results - Last 24 Hours (Table) 08/17/19 08/18/19 08/18/19 Range/Units 10:48 03:04 17:30 RBC (4.30-5.90) m/uL Hgb (13.0-17.5) gm/dL Hct (39.0-53.0) % RDW (11.5-15.5) % Neutrophils # (1.3-7.7) k/uL Lymphocytes # (1.0-4.8) k/uL Sodium (137-145) mmol/L Glucose (74-99) mg/dL POC Glucose (mg/dL) 555 H (75-99) mg/dL Plasma Lactic Acid Nestor (0.7-2.0) mmol/L Calcium (8.4-10.2) mg/dL Procalcitonin 0.26 H (0.02-0.09) ng/mL Gabapentin 26.8 H (2.0-12.0) ug/mL 08/18/19 08/18/19 08/19/19 Range/Units 17:32 20:31 05:14 RBC 2.91 L (4.30-5.90) m/uL Hgb 8.8 L (13.0-17.5) gm/dL Hct 27.8 L (39.0-53.0) % RDW 16.0 H (11.5-15.5) % Neutrophils # 8.6 H (1.3-7.7) k/uL Lymphocytes # 0.7 L (1.0-4.8) k/uL Sodium (137-145) mmol/L Glucose (74-99) mg/dL POC Glucose (mg/dL) 395 H 346 H (75-99) mg/dL Plasma Lactic Acid Nestor (0.7-2.0) mmol/L Calcium (8.4-10.2) mg/dL Procalcitonin (0.02-0.09) ng/mL Gabapentin (2.0-12.0) ug/mL 08/19/19 08/19/19 08/19/19 Range/Units 05:15 05:15 07:27 RBC (4.30-5.90) m/uL Hgb (13.0-17.5) gm/dL Hct (39.0-53.0) % RDW (11.5-15.5) % Neutrophils # (1.3-7.7) k/uL Lymphocytes # (1.0-4.8) k/uL Sodium 136 L (137-145) mmol/L Glucose 225 H (74-99) mg/dL POC Glucose (mg/dL) 280 H (75-99) mg/dL Plasma Lactic Acid Nestor 3.7 H* (0.7-2.0) mmol/L Calcium 7.4 L (8.4-10.2) mg/dL Procalcitonin (0.02-0.09) ng/mL Gabapentin (2.0-12.0) ug/mL 08/19/19 08/19/19 08/19/19 Range/Units 09:17 12:53 13:47 RBC (4.30-5.90) m/uL Hgb (13.0-17.5) gm/dL Hct (39.0-53.0) % RDW (11.5-15.5) % Neutrophils # (1.3-7.7) k/uL Lymphocytes # (1.0-4.8) k/uL Sodium (137-145) mmol/L Glucose (74-99) mg/dL POC Glucose (mg/dL) 253 H (75-99) mg/dL Plasma Lactic Acid Nestor 4.8 H* 5.2 H* (0.7-2.0) mmol/L Calcium (8.4-10.2) mg/dL Procalcitonin (0.02-0.09) ng/mL Gabapentin (2.0-12.0) ug/mL Microbiology - Last 24 Hours (Table) 08/17/19 12:31 Urine Culture - Preliminary Urine,Voided Gram Neg Bacilli 08/17/19 14:25 Blood Culture - Preliminary Blood No Growth after 24 hours Assessment and Plan Assessment: Shortness of breath with possible interstitial lung disease, acute exacerbation, with acute bilateral pneumonia with failure of outpatient treatment History of recent MSSA sepsis, on IV cefazolin through a PICC line History of recent Stenotrophomonas maltophilia from sputum Recent computed tomography scan showed interstitial changes and possible bronchiectasis in both lower lobes History of recent congestive heart failure, acute exacerbation with acute on chronic diastolic dysfunction History of recent sepsis Elevated lactic acid of 4.3, indicative of sepsis Hyponatremia Possible acute urinary tract infection, present on admission Anemia, normocytic, anemia of chronic disease History of diabetes mellitus type 2 Gastroesophageal reflux disease Hypertension Hyperlipidemia Memory impairment History of pneumonia History of fractures, L2for with leg pain History of degenerative joint disease history of gout History of Hernandez's esophagitis History of esophageal carcinoma, completed 20 radiations and 5 chemo treatments Hiatal hernia history of nephrolithiasis History of carotid artery stenosis history of back surgery, degenerative joint disease History of bilateral rotator cuff surgery and degenerative joint disease Full code Recommendations and discussion: Recommend to continue current medications, management, and symptomatic treatment. Continue with gentle IV fluids as lactic acid continues to be elevated. Continue with IV antibiotics in the form of ceftriaxone at this time as urine culture thus far showing gram-negative bacilli. Will await finalization. Blood cultures thus far are negative. Infectious disease is following. Multiple medical consultations following. PT/OT following and working with the patient. Due to multiple complex medical issues, prognosis is extremely guarded. Will continue to monitor vital signs and labs closely along with continuing with blood glucose monitoring closely as his blood sugars remain elevated. Further recommendations to follow.
[2019-08-19 17:33] LABS: Glucose,Whole Blood 137 mg/dL (75-99)
--- NOTE | 2019-08-19 18:18 | PN ---
PROGRESS NOTE DATE OF SERVICE: 08/19/2019. REASON FOR FOLLOWUP: Pneumonia. INTERVAL HISTORY: The patient is currently afebrile, has been complaining of feeling weak and tired. Denies having any chest pain. Cough has been about the same. No vomiting, no abdominal pain and no diarrhea. PHYSICAL EXAMINATION: Blood pressure is 109/65 with a pulse of 83, temperature 97. He is 95% on room air. General description is an elderly male up in the chair in no distress. RESPIRATORY SYSTEM: Unlabored breathing with decreased breath sounds at the base. No wheeze. HEART: S1, S2. Regular rate and rhythm. ABDOMEN: Soft. No tenderness. EXTREMITIES: No edema of the feet. LABS: Hemoglobin 8.9, white count 10.0, lactic acid 5.2, creatinine 0.91. DIAGNOSTIC IMPRESSION AND PLAN: 1. Patient admitted to hospital with weakness, likely related to dehydration component of urinary tract infection. Urine now showing a Gram-negative and patient is covered with Rocephin; to continue. 2. Patient with some worsening of CT findings. May benefit from bronchoscopy and deep cultures and possible biopsy to make sure no evidence of any bacterial or fungal infection. This was discussed with Pulmonary. Continue with supportive care. MMODL / IJN: [id number] /
[2019-08-19 20:36] LABS: Glucose,Whole Blood 193 mg/dL (75-99)
[2019-08-19] MEDS: FLUTICASONE 50MCG/SPRAY NASAL 16GM EA NOSTRIL SCH (21:07)
[2019-08-19] MEDS: GABAPENTIN 400 MG CAP PO SCH (21:09)
[2019-08-19] MEDS: PRAVASTATIN SODIUM 80 MG TAB PO SCH (21:09)
[2019-08-19] MEDS: INSULIN DETEMIR (LEVEMIR) 100 UNIT/ML SYR SQ SCH (21:25)
[2019-08-19] MEDS: MELATONIN 3 MG TABLET PO PRN (21:27)
[2019-08-19] MEDS: MELATONIN 5 MG TABLET PO SCH (22:36)
[2019-08-20 06:19] LABS: Anisocytosis Slight; Basophils % (A) 0 %; Eosinophils % (A) 0 %; HCT 28.3 % (39.0-53.0); HGB 8.9 gm/dL (13.0-17.5); Hypochromasia Moderate; Lymphocytes % (A) 13 %; MCH 30.1 pg (25.0-35.0); MCHC 31.4 g/dL (31.0-37.0); MCV 95.7 fL (80.0-100.0); Mean Platelet Volume 7.9; Monocytes # (A) 0.6 k/uL (0-1.0); Monocytes % (A) 7 %; Neutrophils # (A) 6.1 k/uL (1.3-7.7); Neutrophils % (A) 77 %; Platelet Count 218 k/uL (150-450); Poikilocytosis Slight; RBC 2.96 m/uL (4.30-5.90); RDW 16.2 % (11.5-15.5); WBC 7.9 k/uL (3.8-10.6)
[2019-08-20 06:41] LABS: African American GFR (CKD) >90 (>60 ml/min/1.73 sqM); Anion Gap 7 mmol/L; Blood Urea Nitrogen 18 mg/dL (9-20); Calcium 7.5 mg/dL (8.4-10.2); Carbon Dioxide 25 mmol/L (22-30); Chloride 108 mmol/L (98-107); Glucose 148 mg/dL (74-99); Non-African American GFR(CKD) 78 (>60 ml/min/1.73 sqM); Potassium 3.6 mmol/L (3.5-5.1); Sodium 140 mmol/L (137-145)
[2019-08-20] MEDS: metFORMIN 500 MG TAB PO SCH (07:14)
[2019-08-20] MEDS: SODIUM CHLORIDE 0.9% 1,000 ML IV SCH ×3 (07:14→13:04)
[2019-08-20] MEDS: FORMOTEROL FUMARATE 20 MCG/2 ML NEBU INHALATION SCH ×2 (07:19→18:49)
[2019-08-20] MEDS: IPRATROPIUM-ALBUTEROL 3 ML NEB INHALATION SCH ×4 (07:19→18:49)
[2019-08-20] MEDS: BUDESONIDE 1 MG/2 ML NEBU INHALATION SCH ×2 (07:19→18:49)
[2019-08-20] MEDS: PANTOPRAZOLE 40 MG TABLET PO SCH (07:27)
[2019-08-20 07:38] LABS: Glucose,Whole Blood 168 mg/dL (75-99)
[2019-08-20] MEDS: INSULIN ASPART (NovoLOG) 100 UNIT/ML VIAL SQ SCH ×7 (08:02→21:15)
[2019-08-20] MEDS: LORATADINE 10 MG TAB PO SCH (08:41)
[2019-08-20] MEDS: ASPIRIN 81 MG PO SCH (08:41)
[2019-08-20] MEDS: METOPROLOL TARTRATE 50 MG TAB PO SCH (08:41)
[2019-08-20] MEDS: LACTOBACILLUS ACIDOPH & BULGAR 1 EACH PACKET PO SCH ×2 (08:41→21:08)
[2019-08-20] MEDS: guaiFENesin-DM 100-10MG/5ML 10 ML CUP PO SCH ×2 (08:42→21:04)
[2019-08-20] MEDS: GABAPENTIN 300 MG CAP PO SCH (08:42)
[2019-08-20] MEDS: POTASSIUM CHLORIDE ER 20 MEQ TAB.ER PO SCH ×2 (08:42→21:02)
[2019-08-20] MEDS: NEOMYCIN-BACITRACIN-POLY OINT 14 GM TUBE TOPICAL SCH ×2 (08:42→21:08)
[2019-08-20] MEDS: ALLOPURINOL 300 MG TAB PO SCH (08:42)
[2019-08-20] MEDS: TORSEMIDE 20 MG TAB PO SCH (08:43)
[2019-08-20 12:26] LABS: Glucose,Whole Blood 57 mg/dL (75-99)
--- NOTE | 2019-08-20 12:31 | P.PN ---
Subjective Progress Note Date: 08/20/19 On today's evaluation the patient is sitting up on a chair. Feeling well. No major respiratory difficulties. No significant cough or sputum production. Pseudomonas was cultured and his urine and UA was abnormal. It's possible that the patient presented with a underlying UTI. I also noted that his lactic acid levels were persistently elevated since 2018. I do not think this is infectious in nature. I think metformin could have been contributing to his elevated lactic acid level. The metformin will be discontinued and the patient's blood sugar will be monitored. The lactic acid levels will also be monitored. No fever. No chills. Hemodynamically stable. CAT scan of the abdomen and pelvis showed some limited infiltration of the lung bases along with some pleural thickening. Moderate cardiomegaly. Compression fractures of the spine was present. No other acute abnormalities or evidence of any malignancy or tumor recurrence. Objective - Vital Signs Vital signs: Vital Signs Temp 97.7 F 08/20/19 08:26 Pulse 80 08/20/19 11:05 Resp 16 08/20/19 04:00 BP 124/65 08/20/19 04:00 Pulse Ox 98 08/20/19 07:22 Intake & Output 08/19/19 08/20/19 08/20/19 18:59 06:59 18:59 Intake Total 1642 1118 1286 Output Total 1150 1500 Balance 1642 -32 -214 Weight 83.7 kg Intake: IV 570 Sodium Chloride 0.9% 1, 520 000 ml @ 130 mls/hr IV . Q7H42M MELVA Rx#:[id number] cefTRIAXone 1 gm In 50 Sodium Chloride 0.9% 50 ml @ 100 mls/hr IVPB Q24HR MELVA Rx#:[id number] Intake, IV Titration 830 260 Amount Sodium Chloride 0.9% 1, 780 260 000 ml @ 130 mls/hr IV . Q7H42M MELVA Rx#:[id number] cefTRIAXone 1 gm In 50 Sodium Chloride 0.9% 50 ml @ 100 mls/hr IVPB Q24HR MELVA Rx#:[id number] Oral 812 858 716 Output: Urine 1150 1500 Other: Voiding Method Urinal - Exam GENERAL EXAM: Alert, pleasant 84-year-old male patient, the patient is on room air oxygen, in no acute distress, comfortable in no apparent distress. HEAD: Normocephalic/atraumatic. EYES: Normal reaction of pupils, equal size. Conjunctiva pink, sclera white. NOSE: Clear with pink turbinates. THROAT: No erythema or exudates. NECK: No masses, no JVD, no thyroid enlargement, no adenopathy. CHEST: No chest wall deformity. Symmetrical expansion. LUNGS: Equal air entry with bilateral scattered rhonchi, crackles in the posterior bases. CVS: Regular rate and rhythm, normal S1 and S2, no gallops, no murmurs, no rubs ABDOMEN: Soft, nontender. No hepatosplenomegaly, normal bowel sounds, no guarding or rigidity. EXTREMITIES: No clubbing, 1+ pitting edema in bilateral lower extremities, no cyanosis, 2+ pulses and upper and lower extremities. MUSCULOSKELETAL: Muscle strength and tone normal. SPINE: No scoliosis or deformity SKIN: No rashes CENTRAL NERVOUS SYSTEM: No focal deficits, tone is normal in all 4 extremities. PSYCHIATRIC: Alert and oriented -3. Appropriate affect. Intact judgment and insight. - Labs CBC & Chem 7: 08/20/19 05:45 08/20/19 05:45 Labs: Abnormal Lab Results - Last 24 Hours (Table) 08/19/19 08/19/19 08/19/19 Range/Units 12:53 13:47 17:32 RBC (4.30-5.90) m/uL Hgb (13.0-17.5) gm/dL Hct (39.0-53.0) % RDW (11.5-15.5) % Chloride (98-107) mmol/L Glucose (74-99) mg/dL POC Glucose (mg/dL) 253 H 137 H (75-99) mg/dL Plasma Lactic Acid Nestor 5.2 H* (0.7-2.0) mmol/L Calcium (8.4-10.2) mg/dL 08/19/19 08/19/19 08/20/19 Range/Units 17:49 20:34 05:45 RBC 2.96 L (4.30-5.90) m/uL Hgb 8.9 L (13.0-17.5) gm/dL Hct 28.3 L (39.0-53.0) % RDW 16.2 H (11.5-15.5) % Chloride (98-107) mmol/L Glucose (74-99) mg/dL POC Glucose (mg/dL) 193 H (75-99) mg/dL Plasma Lactic Acid Nestor 4.0 H* (0.7-2.0) mmol/L Calcium (8.4-10.2) mg/dL 08/20/19 08/20/19 08/20/19 Range/Units 05:45 05:45 07:37 RBC (4.30-5.90) m/uL Hgb (13.0-17.5) gm/dL Hct (39.0-53.0) % RDW (11.5-15.5) % Chloride 108 H (98-107) mmol/L Glucose 148 H (74-99) mg/dL POC Glucose (mg/dL) 168 H (75-99) mg/dL Plasma Lactic Acid Nestor 3.4 H* (0.7-2.0) mmol/L Calcium 7.5 L (8.4-10.2) mg/dL 08/20/19 Range/Units 10:04 RBC (4.30-5.90) m/uL Hgb (13.0-17.5) gm/dL Hct (39.0-53.0) % RDW (11.5-15.5) % Chloride (98-107) mmol/L Glucose (74-99) mg/dL POC Glucose (mg/dL) (75-99) mg/dL Plasma Lactic Acid Nestor 5.8 H* (0.7-2.0) mmol/L Calcium (8.4-10.2) mg/dL Microbiology - Last 24 Hours (Table) 08/17/19 12:31 Urine Culture - Final Urine,Voided Pseudomonas aeruginosa 08/17/19 14:25 Blood Culture - Preliminary Blood No Growth after 48 hours Assessment and Plan Plan: #1. UTI with pseudomonas aeruginosa #2. 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 Altered mentation at the [facility] at the time of symptom onset with coughing, confusion, and chest congestion, improved #4. Plasma lactic acidosis, possibly related to sepsis, continues to be elevated despite hydration and the patient has been persistently having lactic acid level elevation. #5. Elevated troponins, possibly related to sepsis #6. 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 History of esophageal cancer status post resection and subsequent radiofrequency ablation at [facility] in November 2012 with recurrence and chemoradiation in 2018 completed 09/02/2017 #8. Obesity #9. Hypertension #10. Hyperlipidemia #11. Gout #12. Lifelong nonsmoker with normal pulmonary function testing #13. History of chronic kidney disease, recovered and the patient's renal function is normal. #14. History of left carotid occlusion #15 increased lower extremity edema, with difficulty with mobility due to generalized weakness. #16 valvular heart disease with moderate degree of aortic stenosis and an ejection fraction of 55-60%. The peak gradient across the valve was 41 mmHg no significant pulmonary hypertension. #17 lactic acidosis, rule out underlying infection Plan Suspected lactic acid levels are elevated because of metformin. This will be discontinued. Monitor lactic acid levels Discussed with ID regarding the possibility of covering pseudomonas in the urine and antibiotic change Continue hydration We'll continue to follow
[2019-08-20 13:04] LABS: Glucose,Whole Blood 70 mg/dL (75-99)
[2019-08-20] MEDS: guaiFENesin 600 MG TABLET.ER PO SCH ×2 (13:04→22:17)
[2019-08-20 13:27] LABS: Appearance,Urine Clear (Clear); Bilirubin,Urine Negative (Negative); Blood,Urine Negative (Negative); Color,Urine Colorless; Glucose,Urine (UA) Negative (Negative); Ketones,Urine Negative (Negative); Leukocyte Esterase,Urine Small (Negative); Nitrite,Urine Negative (Negative); Protein,Urine Negative (Negative); RBC,Urine <1 /hpf (0-5); Specific Gravity,Urine 1.004 (1.001-1.035); Urobilinogen,Urine <2.0 mg/dL (<2.0); WBC,Urine 19 /hpf (0-5)
[2019-08-20 13:30] LABS: Glucose,Whole Blood 122 mg/dL (75-99)
[2019-08-20] MEDS ORDERED: ZOLPIDEM 5 MG TAB PO PRN (14:41)
[2019-08-20] MEDS ORDERED: Magnesium Replacement Protocol 1 EACH MISC MISCELLANE PRN (14:42)
[2019-08-20] MEDS: CIPROFLOXACIN HCL 500 MG TAB PO SCH ×2 (15:02→23:53)
[2019-08-20] MEDS: GABAPENTIN 400 MG CAP PO SCH ×2 (15:02→22:16)
[2019-08-20 17:27] LABS: Glucose,Whole Blood 114 mg/dL (75-99)
--- NOTE | 2019-08-20 18:19 | PN ---
PROGRESS NOTE DATE OF SERVICE: 08/20/2019 This 84-year-old gentleman admitted to the hospital with shortness of breath with possible interstitial lung disease, acute exacerbation, also had bilateral pneumonia. The patient has Stenotrophomonas maltophilia previously and during the previous recent admission patient also MSSA sepsis exacerbation. The patient has PICC line and on long- term antibiotics. Currently the patient came with multiple medical issues. Patient continues to have elevated lactic acid and also had Pseudomonas in the UTI. Patient is on Rocephin. Dr. Nur and Dr. Brown following the patient closely. An abdominal and pelvis CAT scan was also done which showed bilateral pulmonary infiltrate and moderate cardiomegaly and compression fractures. PAST MEDICAL HISTORY: Reviewed. REVIEW OF SYSTEMS: Cardiovascular system as mentioned earlier. RESPIRATORY: As mentioned earlier. : No dysuria or retention. CENTRAL NERVOUS SYSTEM: No numbness or weakness. CURRENT MEDICATIONS: Reviewed and include: 1. Tylenol p.r.n. 2. DuoNeb q.i.d. and p.r.n. 3. Zyloprim 300 mg p.o. 4. Aspirin 81 mg. 5. Dulcolax 10 mg. 6. Pulmicort 1 mg b.i.d. 7. Cipro 500 mg p.o. b.i.d. 8. Flonase. 9. Perforomist. 10.Neurontin 600 mg p.o. t.i.d. 11.Mucinex. 12.Robitussin. 13.NovoLog. 14.Levemir. 15.Lactinex. 16.Melatonin. 17.Lopressor. 18.Replacement protocols. 19.Pravachol. 20.Demadex. 21.Ambien. PHYSICAL EXAM: Patient is alert, oriented x2. Pulse is 109. Blood pressure 120/52, respirations 16, temperature 97.7, pulse ox 98% on room air. HEENT: Conjunctivae normal. NECK: No JVD. CARDIOVASCULAR: S1, S2 muffled. RESPIRATORY SYSTEM: Breath sounds diminished at the bases. A few scattered rhonchi and crackles. ABDOMEN: Soft, obese. Nontender. No mass. LEGS: No edema. No swelling. Nervous system: No focal deficits. LAB STUDIES: WBC 7.1, hemoglobin is 8.9, sodium 140 and lactic acid noted. ASSESSMENT: 1. Shortness of breath, possible interstitial lung disease, acute exacerbation, acute bibasilar pneumonia possibly gram-negative with failure of outpatient treatment. 2. Recent MSSA sepsis was on IV cefazolin to the PICC line. 3. Pseudomonas urinary tract infection. 4. Elevated lactic acid post possible lactic acidemia secondary to sepsis or metformin. 5. 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 6. Recent CT scan showing interstitial changes and possible bronchiectasis in both lower lobes. 7. History of congestive heart failure acute exacerbation with acute on chronic diastolic dysfunction recently. 8. History of recent sepsis. 9. Elevated lactic acid. 10.Hyponatremia. 11.Anemia, normocytic anemia of chronic disease. 12.Diabetes mellitus type 2. 13.Gastroesophageal reflux disease. 14.Hypertension. 15.Hyperlipidemia. 16.History of memory impairment. 17.History of pneumonia. 18.History of fracture L2 with leg pain. 19.History of degenerative joint disease. 20.History of gout. 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 22.History of cervical carcinoma completed 20 radiation 5 chemotherapy. 23.Hiatal hernia. 24.History of nephrolithiasis. 26.History of carotid artery disease. 27.History of back surgery and degenerative joint disease. 28.History of bilateral rotator cuff surgery. 29.High Neurontin levels. 30.FULL CODE. RECOMMENDATIONS AND DISCUSSION: In this 84-year-old gentleman who presented with multiple complex medical issues, we will monitor the patient closely. Continue the bronchodilators. Continue with steroids. Otherwise, stop the metformin because of the persistent elevated lactic acid. Discussed with Dr. Brown who is planning possible bronchoscopy. Otherwise antibiotic changes because of the recent Pseudomonas growth per Infectious Disease. We will cut down the cut down the dose of Neurontin. Further recommendations to follow. MMODL / IJN: [id number] / MTDD
[2019-08-20 20:24] LABS: Glucose,Whole Blood 240 mg/dL (75-99)
[2019-08-20] MEDS ORDERED: CIPROFLOXACIN HCL 500 MG TAB PO SCH (21:00)
[2019-08-20] MEDS: FLUTICASONE 50MCG/SPRAY NASAL 16GM EA NOSTRIL SCH (21:03)
[2019-08-20] MEDS: MELATONIN 5 MG TABLET PO SCH (21:04)
[2019-08-20] MEDS: PRAVASTATIN SODIUM 80 MG TAB PO SCH (21:05)
[2019-08-20] MEDS: INSULIN DETEMIR (LEVEMIR) 100 UNIT/ML SYR SQ SCH (21:16)
[2019-08-21] MEDS: SODIUM CHLORIDE 0.9% 1,000 ML IV SCH ×2 (06:58→20:01)
[2019-08-21] MEDS: PANTOPRAZOLE 40 MG TABLET PO SCH (06:59)
[2019-08-21 07:36] LABS: Glucose,Whole Blood 77 mg/dL (75-99)
--- NOTE | 2019-08-21 08:54 | PN ---
PROGRESS NOTE DATE OF SERVICE: 08/20/2019 REASON FOR FOLLOW UP: 1. Urinary tract infection. 2. Possible pneumonia. INTERVAL HISTORY: The patient is currently afebrile. The patient has been breathing comfortably. The patient denies significant chest pain. He did have mild cough which has been dry in nature. No nausea, no vomiting. No abdominal pain. No diarrhea. PHYSICAL EXAMINATION: The blood pressure is 108/71 with a pulse of 90. Temperature 98. He is 99% on 2 L nasal cannula. General description is an elderly male up in the chair in no distress. Respiratory system: Unlabored breathing. Decreased breath sounds in the bases. No wheeze. Heart S1, S2. Regular rate and rhythm. ABDOMEN: Soft, no tenderness. LABS: Urine culture finalized with Pseudomonas aeruginosa. Blood culture has been negative. DIAGNOSTIC IMPRESSION AND PLAN: Patient admitted to the hospital with generalized weakness, which is likely multifactorial in this patient with dehydration and possible component of UTI, urine showing Pseudomonas for which the patient was not treated and did show clinical improvement, question of possible colonization. Repeat UA has been done which was not significantly positive. Antibiotic has been adjusted to oral Cipro to continue and we will monitor his clinical course closely. MMODL / IJN: [id number] /
[2019-08-21] MEDS: BUDESONIDE 1 MG/2 ML NEBU INHALATION SCH ×2 (08:58→19:55)
[2019-08-21] MEDS: FORMOTEROL FUMARATE 20 MCG/2 ML NEBU INHALATION SCH ×2 (08:59→19:54)
[2019-08-21] MEDS: IPRATROPIUM-ALBUTEROL 3 ML NEB INHALATION SCH ×4 (08:59→19:55)
[2019-08-21] MEDS: INSULIN ASPART (NovoLOG) 100 UNIT/ML VIAL SQ SCH ×7 (09:00→20:42)
[2019-08-21] MEDS: ASPIRIN 81 MG PO SCH (10:45)
[2019-08-21] MEDS: METOPROLOL TARTRATE 50 MG TAB PO SCH (10:45)
[2019-08-21] MEDS: POTASSIUM CHLORIDE ER 20 MEQ TAB.ER PO SCH ×2 (10:45→20:01)
[2019-08-21] MEDS: guaiFENesin 600 MG TABLET.ER PO SCH ×2 (10:45→20:01)
[2019-08-21] MEDS: GABAPENTIN 400 MG CAP PO SCH ×3 (10:46→20:01)
[2019-08-21] MEDS: ALLOPURINOL 300 MG TAB PO SCH (10:46)
[2019-08-21] MEDS: TORSEMIDE 20 MG TAB PO SCH (10:46)
[2019-08-21] MEDS: LACTOBACILLUS ACIDOPH & BULGAR 1 EACH PACKET PO SCH ×2 (10:46→20:00)
[2019-08-21] MEDS: CIPROFLOXACIN HCL 500 MG TAB PO SCH ×2 (10:46→20:00)
[2019-08-21] MEDS: guaiFENesin-DM 100-10MG/5ML 10 ML CUP PO SCH ×2 (10:46→20:00)
[2019-08-21] MEDS: LORATADINE 10 MG TAB PO SCH (10:46)
[2019-08-21 12:40] LABS: Glucose,Whole Blood 134 mg/dL (75-99)
[2019-08-21] MEDS: NEOMYCIN-BACITRACIN-POLY OINT 14 GM TUBE TOPICAL SCH ×2 (12:54→20:01)
--- NOTE | 2019-08-21 14:08 | XR ---
EXAMINATION TYPE: XR chest 1V portable DATE OF EXAM: 08/21/2019 COMPARISON: 08/17/2019 HISTORY: Short of breath TECHNIQUE: FINDINGS: There is some linear density at the lung bases. There is heart enlargement. There are chest leads. There is no gross heart failure. IMPRESSION: Cardiomegaly and mild subsegmental atelectasis at the lung bases. No heart failure. No si gnificant change compared to last exam.
--- NOTE | 2019-08-21 16:07 | P.PN ---
Subjective Progress Note Date: 08/21/19 The patient is seen today 08/21/2019 in follow-up on the selective care unit. He is currently sitting up at the bedside. Awake and alert in no acute distress. Denies any worsening shortness of breath, cough or congestion. He is currently afebrile. Maintaining O2 saturations in the 90s on 2 L/m per nasal cannula. Chest x-ray reveals cardiomegaly and mild subsegmental atelectasis at the lung bases. No heart failure. No significant change compared to previous. Remains on Cipro. Objective - Vital Signs Vital signs: Vital Signs Temp 97.6 F 08/21/19 12:00 Pulse 76 08/21/19 12:58 Resp 16 08/21/19 12:00 BP 90/57 08/21/19 12:00 Pulse Ox 96 08/21/19 12:00 Intake & Output 08/20/19 08/21/19 08/21/19 17:59 06:59 18:59 Intake Total 600 Output Total 300 Balance 300 Weight Intake: IV Invasive Line 1 Sodium Chloride 0.9% 1, 000 ml @ 130 mls/hr IV . Q7H42M [facility]VA Rx#:[id number] cefTRIAXone 1 gm In Sodium Chloride 0.9% 50 ml @ 100 mls/hr IVPB Q24HR MELVA Rx#:[id number] Oral 600 Output: Urine 300 Other: Voiding Method Urinal # Voids 1 # Bowel Movements 1 - Exam GENERAL EXAM: Alert, doesn't 84-year-old gentleman, on 2 L/m per nasal cannula. Comfortable in no apparent distress. HEAD: Normocephalic. EYES: Normal reaction of pupils, equal size. NOSE: Clear with pink turbinates. THROAT: No erythema or exudates. NECK: No masses, no JVD. CHEST: No chest wall deformity. LUNGS: Equal air entry with crackles in the left lung base. CVS: S1 and S2 normal with no audible murmur, regular rhythm. ABDOMEN: No hepatosplenomegaly, normal bowel sounds, no guarding or rigidity. SPINE: No scoliosis or deformity SKIN: No rashes CENTRAL NERVOUS SYSTEM: No focal deficits, tone is normal in all 4 extremities. EXTREMITIES: There is no peripheral edema. No clubbing, no cyanosis. Peripheral pulses are intact. - Labs CBC & Chem 7: 08/20/19 05:45 08/20/19 05:45 Labs: Abnormal Lab Results - Last 24 Hours (Table) 08/20/19 08/20/19 08/20/19 Range/Units 14:40 17:26 20:20 POC Glucose (mg/dL) 114 H 240 H (75-99) mg/dL Plasma Lactic Acid Nestor 4.0 H* (0.7-2.0) mmol/L 08/21/19 Range/Units 12:38 POC Glucose (mg/dL) 134 H (75-99) mg/dL Plasma Lactic Acid Nestor (0.7-2.0) mmol/L Microbiology - Last 24 Hours (Table) 08/20/19 13:00 Urine Culture - Preliminary Urine,Clean Catch 08/17/19 14:25 Blood Culture - Preliminary Blood No Growth after 72 hours Assessment and Plan Assessment: #1. UTI with pseudomonas aeruginosa Edelmira currently on Cipro #2. 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 Altered mentation at the [facility] at the time of symptom onset with coughing, confusion, and chest congestion, improved #4. Plasma lactic acidosis, possibly related to sepsis, continues to be elevated despite hydration and the patient has been persistently having lactic acid level elevation. #5. Elevated troponins, possibly related to sepsis #6. 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 History of esophageal cancer status post resection and subsequent radiofrequency ablation at [facility] in November 2012 with recurrence and chemoradiation in 2018 completed 09/02/2017 #8. Obesity #9. Hypertension #10. Hyperlipidemia #11. Gout #12. Lifelong nonsmoker with normal pulmonary function testing #13. History of chronic kidney disease, recovered and the patient's renal function is normal. #14. History of left carotid occlusion #15 increased lower extremity edema, with difficulty with mobility due to generalized weakness. #16 valvular heart disease with moderate degree of aortic stenosis and an ejection fraction of 55-60%. The peak gradient across the valve was 41 mmHg no significant pulmonary hypertension. #17 lactic acidosis, rule out underlying infection Plan The patient was seen and evaluated by Dr. Artinian. He is stable from the pulmonary standpoint. We'll continue the current treatment plan. We'll continue to follow. I, the cosigning physician, performed a history & physical examination of the patient. Lungs sounds with crackles in left lung base. Maintaining good O2 saturations in the 90s on 2 L/m per nasal cannula. I discussed the assessment and plan of care with my nurse practitioner, Heather Lara. I attest to the above note as dictated by her.
[2019-08-21 17:32] LABS: Glucose,Whole Blood 82 mg/dL (75-99)
[2019-08-21] MEDS: MELATONIN 5 MG TABLET PO SCH (20:00)
[2019-08-21] MEDS: FLUTICASONE 50MCG/SPRAY NASAL 16GM EA NOSTRIL SCH (20:00)
[2019-08-21] MEDS: PRAVASTATIN SODIUM 80 MG TAB PO SCH (20:00)
[2019-08-21 20:29] LABS: Glucose,Whole Blood 194 mg/dL (75-99)
[2019-08-21] MEDS: INSULIN DETEMIR (LEVEMIR) 100 UNIT/ML SYR SQ SCH (20:42)
--- NOTE | 2019-08-21 22:43 | PN ---
PROGRESS NOTE DATE OF SERVICE: 08/21/2019 This 84-year-old gentleman who was admitted with multiple medical problems being closely monitored at this time. The most recent chest x-ray which was reviewed by me personally showed some improvement in the bibasilar areas. No chest pain. No palpitations. Dr. Brown is following the patient closely. No chest pain. No palpitations. The urine culture showed gram-negative bacilli. No chest pain or palpitations. PHYSICAL EXAMINATION: Alert and oriented x3. The pulse is 99, blood pressure 118/60, respirations 18, temperature 98.5, pulse ox 95 percent on room air. HEENT: Conjunctivae normal. NECK: No JVD. CARDIOVASCULAR: S1, S2 muffled. RESPIRATORY SYSTEM: Breath sounds diminished at the bases. A few scattered rhonchi and crackles. Abdomen is soft, nontender. Legs are no edema. No swelling. CENTRAL NERVOUS SYSTEM: No focal deficits. LABS: Hemoglobin 8.9. Other labs noted. ASSESSMENT: 1. Shortness of breath, possibly interstitial lung disease acute exacerbation with acute bibasilar pneumonia possibly gram-negative with failure of outpatient treatment. 2. Recent MSSA sepsis with IV Cefazolin through the PICC line. 3. Pseudomonas urinary tract infection. 4. Elevated lactic acidosis and lactic acid. Lactic acidosis, possibly secondary to sepsis, on metformin. 5. History of Stenotrophomonas maltophilia from the sputum multiple occasions, recent CT scan showing interstitial changes and possible bronchiectasis in the both lower lobes. 6. History of congestive heart failure, with acute on chronic diastolic dysfunction recently. 7. History of recent sepsis. 8. Elevated lactic acid, as mentioned earlier. 9. Hyponatremia. 10.Anemia, normocytic anemia of chronic disease. 11.Diabetes mellitus type 2. 12.Gastroesophageal reflux disease. 13.Hypertension. 14.Hyperlipidemia. 15.History of memory impairment. 16.History of pneumonia. 17.History of fractured L2 with leg pain. 18.History of degenerative joint disease. 19.History of gout. 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 21.History of esophageal carcinoma. 22.History of hiatal hernia. 23.History of nephrolithiasis. 24.History of coronary artery disease. 25.History of back surgery, degenerative joint disease. 26.History of bilateral rotator cuff surgery. 27.History of high Neurontin levels. 28.FULL CODE. RECOMMENDATIONS AND DISCUSSION: Recommend to continue current medications, management and symptomatic treatment. Cut down the dose of Neurontin. Continue the rest of medications. Otherwise, stop the metformin. Repeat labs will be ordered. PT/OT evaluation. As mentioned earlier, pulmonary is not planning any more testing at this time but in case the condition is not improving repeat bronchoscopy may be worthwhile. Prognosis guarded. Follow closely with multiple consultants. Further recommendations to follow. MMODL / IJN: [id number] /
[2019-08-22 04:40] LABS: Glucose,Whole Blood 82 mg/dL (75-99)
--- NOTE | 2019-08-22 06:32 | PN ---
PROGRESS NOTE DATE OF SERVICE: 08/21/2019 REASON FOR FOLLOWUP: Urinary tract infection and question of pneumonia. INTERVAL HISTORY: The patient is currently afebrile. He has been breathing comfortably. The patient denies having any chest pain. Minimal cough, but no sputum. No nausea, vomiting. No abdominal pain. Has been complaining of urinary retention and unable to urinate. No vomiting and no diarrhea. PHYSICAL EXAMINATION: Blood pressure 118/66, pulse of 99, temperature of 98.5. He is 95% on room air. General description is an elderly male up in the chair in no distress. RESPIRATORY SYSTEM: Unlabored breathing. Decreased breath sounds in the bases. No wheeze. HEART: S1, S2. Regular rate and rhythm. ABDOMEN: Soft, no tenderness. LABS: Hemoglobin 8.9, white count 7.9. Creatinine is 0.91. Repeat urine is currently pending. DIAGNOSTIC IMPRESSION AND PLAN: 1. Patient with Pseudomonas urinary tract infection in this patient who did have a component of urinary retention requiring Martinez catheter placement. Patient is covered with oral Cipro to continue. 2. Patient with abnormal x-ray with concern for possible in a patient clinically not behaving as pneumonia. We will discuss further with Pulmonary regarding need for bronchoscopy and deep cultures and continue with supportive care. MMODL / IJN: [id number] /
[2019-08-22 06:49] LABS: Anisocytosis Slight; Basophils % (A) 0 %; Eosinophils # (A) 0.1 k/uL (0-0.7); Eosinophils % (A) 1 %; HCT 31.2 % (39.0-53.0); HGB 9.7 gm/dL (13.0-17.5); Hypochromasia Moderate; Lymphocytes % (A) 15 %; MCH 30.1 pg (25.0-35.0); MCHC 31.1 g/dL (31.0-37.0); MCV 96.9 fL (80.0-100.0); Macrocytosis Slight; Mean Platelet Volume 7.9; Monocytes # (A) 0.5 k/uL (0-1.0); Monocytes % (A) 7 %; Neutrophils # (A) 4.9 k/uL (1.3-7.7); Neutrophils % (A) 75 %; Platelet Count 210 k/uL (150-450); Poikilocytosis Slight; RBC 3.22 m/uL (4.30-5.90); RDW 16.5 % (11.5-15.5); WBC 6.5 k/uL (3.8-10.6)
[2019-08-22 06:57] LABS: African American GFR (CKD) >90 (>60 ml/min/1.73 sqM); Anion Gap 8 mmol/L; Blood Urea Nitrogen 11 mg/dL (9-20); Calcium 8.1 mg/dL (8.4-10.2); Carbon Dioxide 26 mmol/L (22-30); Chloride 105 mmol/L (98-107); Glucose 72 mg/dL (74-99); Magnesium 1.6 mg/dL (1.6-2.3); Non-African American GFR(CKD) 82 (>60 ml/min/1.73 sqM); Potassium 3.5 mmol/L (3.5-5.1); Sodium 139 mmol/L (137-145)
[2019-08-22] MEDS: INSULIN ASPART (NovoLOG) 100 UNIT/ML VIAL SQ SCH ×7 (07:02→21:13)
[2019-08-22] MEDS: PANTOPRAZOLE 40 MG TABLET PO SCH (07:02)
[2019-08-22 07:23] LABS: Glucose,Whole Blood 87 mg/dL (75-99)
[2019-08-22] MEDS: FORMOTEROL FUMARATE 20 MCG/2 ML NEBU INHALATION SCH ×2 (07:25→20:50)
[2019-08-22] MEDS: IPRATROPIUM-ALBUTEROL 3 ML NEB INHALATION SCH ×4 (07:25→20:51)
[2019-08-22] MEDS: BUDESONIDE 1 MG/2 ML NEBU INHALATION SCH ×2 (07:25→20:50)
[2019-08-22] MEDS: LORATADINE 10 MG TAB PO SCH (08:26)
[2019-08-22] MEDS: guaiFENesin 600 MG TABLET.ER PO SCH ×2 (08:26→21:11)
[2019-08-22] MEDS: LACTOBACILLUS ACIDOPH & BULGAR 1 EACH PACKET PO SCH ×2 (08:26→21:12)
[2019-08-22] MEDS: TORSEMIDE 20 MG TAB PO SCH (08:26)
[2019-08-22] MEDS: guaiFENesin-DM 100-10MG/5ML 10 ML CUP PO SCH ×2 (08:26→21:12)
[2019-08-22] MEDS: CIPROFLOXACIN HCL 500 MG TAB PO SCH ×2 (08:26→21:11)
[2019-08-22] MEDS: ALLOPURINOL 300 MG TAB PO SCH (08:26)
[2019-08-22] MEDS: METOPROLOL TARTRATE 50 MG TAB PO SCH (08:27)
[2019-08-22] MEDS: GABAPENTIN 400 MG CAP PO SCH ×3 (08:27→21:11)
[2019-08-22] MEDS: POTASSIUM CHLORIDE ER 20 MEQ TAB.ER PO SCH ×2 (08:27→21:11)
[2019-08-22] MEDS: ASPIRIN 81 MG PO SCH (08:27)
[2019-08-22] MEDS: NEOMYCIN-BACITRACIN-POLY OINT 14 GM TUBE TOPICAL SCH ×2 (08:28→21:11)
--- NOTE | 2019-08-22 12:17 | P.PN ---
Subjective Progress Note Date: 08/22/19 On today's evaluation the patient is awake and alert and stronger and feels better and he was able to walk with help back and forth to the bathroom. No major swelling in lower extremities. He has Pseudomonas in his urine and currently is on oral Cipro. On room air oxygen. Some limited swelling in the lower extremities still present. No fever. No chills. No chest pain. Some occasional dry cough. He is on no IV fluids at this point in time. I would say his condition is improving. I took him off the metformin and his lactic acid level is down to 1.5. Note that he had persistent lactic acidosis throughout the past year. Objective - Vital Signs Vital signs: Vital Signs Temp 97.4 F L 08/22/19 08:00 Pulse 90 08/22/19 11:43 Resp 16 08/22/19 11:43 BP 99/59 08/22/19 11:43 Pulse Ox 96 08/22/19 11:43 Intake & Output 08/21/19 08/22/19 08/22/19 18:59 06:59 18:59 Intake Total 600 360 Output Total 300 1857 700 Balance 300 -1497 -700 Weight 82.5 kg Intake: Oral 600 360 Output: Urine 300 1132 700 Post Void Residual 725 Other: Voiding Method Urinal Urinal Urinal # Voids 1 1 # Bowel Movements 1 1 - Exam GENERAL EXAM: Alert, pleasant 84-year-old male patient, the patient is on room air oxygen, in no acute distress, comfortable in no apparent distress. HEAD: Normocephalic/atraumatic. EYES: Normal reaction of pupils, equal size. Conjunctiva pink, sclera white. NOSE: Clear with pink turbinates. THROAT: No erythema or exudates. NECK: No masses, no JVD, no thyroid enlargement, no adenopathy. CHEST: No chest wall deformity. Symmetrical expansion. LUNGS: Equal air entry with bilateral scattered rhonchi, crackles in the posterior bases. CVS: Regular rate and rhythm, normal S1 and S2, no gallops, no murmurs, no rubs ABDOMEN: Soft, nontender. No hepatosplenomegaly, normal bowel sounds, no guarding or rigidity. EXTREMITIES: No clubbing, 1+ pitting edema in bilateral lower extremities, no cyanosis, 2+ pulses and upper and lower extremities. MUSCULOSKELETAL: Muscle strength and tone normal. SPINE: No scoliosis or deformity SKIN: No rashes CENTRAL NERVOUS SYSTEM: No focal deficits, tone is normal in all 4 extremities. PSYCHIATRIC: Alert and oriented -3. Appropriate affect. Intact judgment and insight. - Labs CBC & Chem 7: 08/22/19 06:04 08/22/19 06:04 Labs: Abnormal Lab Results - Last 24 Hours (Table) 08/21/19 08/21/19 08/22/19 Range/Units 12:38 20:14 06:04 RBC (4.30-5.90) m/uL Hgb (13.0-17.5) gm/dL Hct (39.0-53.0) % RDW (11.5-15.5) % Glucose 72 L (74-99) mg/dL POC Glucose (mg/dL) 134 H 194 H (75-99) mg/dL Calcium 8.1 L (8.4-10.2) mg/dL 08/22/19 Range/Units 06:04 RBC 3.22 L (4.30-5.90) m/uL Hgb 9.7 L (13.0-17.5) gm/dL Hct 31.2 L (39.0-53.0) % RDW 16.5 H (11.5-15.5) % Glucose (74-99) mg/dL POC Glucose (mg/dL) (75-99) mg/dL Calcium (8.4-10.2) mg/dL Microbiology - Last 24 Hours (Table) 08/20/19 13:00 Urine Culture - Preliminary Urine,Clean Catch Gram Neg Bacilli 08/17/19 14:25 Blood Culture - Preliminary Blood No Growth after 96 hours Assessment and Plan Plan: #1. UTI with pseudomonas aeruginosa mode currently on Cipro #2. 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 Altered mentation at the F at the time of symptom onset with coughing, confusion, and chest congestion, improved #4. Plasma lactic acidosis, possibly related to sepsis, possibly related to metformin, discontinued and electing is level is down to 1.5 #5. Elevated troponins, nonspecific #6. 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 History of esophageal cancer status post resection and subsequent radiofrequency ablation at [facility] in November 2012 with recurrence and chemoradiation in 2018 completed 09/02/2017 #8. Obesity #9. Hypertension #10. Hyperlipidemia #11. Gout #12. Lifelong nonsmoker with normal pulmonary function testing #13. History of chronic kidney disease, recovered and the patient's renal function is normal. #14. History of left carotid occlusion #15 increased lower extremity edema, with difficulty with mobility due to generalized weakness. #16 valvular heart disease with moderate degree of aortic stenosis and an ejection fraction of 55-60%. The peak gradient across the valve was 41 mmHg no significant pulmonary hypertension. Plan Continue ciprofloxacin Keep the patient off metformin Aggressive physical therapy Keep in the hospital for 24 hours for further monitoring
[2019-08-22 12:59] LABS: Glucose,Whole Blood 174 mg/dL (75-99)
--- NOTE | 2019-08-22 14:57 | P.PN ---
Subjective Progress Note Date: 08/22/19 Principal diagnosis: This is an 84-year-old male who was recently admitted for increasing shortness of breath, weakness, and pneumonia and is being closely monitored. Patient was recently at [facility] for continued PT/OT therapy although per family members patient continued to be quite weak and unable to get up and work with physical therapy most days. Patient was maintained on IV antibiotics in the form of cefazolin and does have a PICC line. Infectious disease is following. Pulmonary is following as well. Today patient is a little more awake and alert and able to respond appropriately to questions and commands although continues to fatigue easily, be quite lethargic, and is extremely weak. 08/19/2019 Patient was seen and examined in follow-up today more awake and alert and responding appropriately to questions and commands. Urine cultures thus far ever wing gram-negative bacilli and will await culture finalization. Blood cultures thus far remain negative. Patient to continue on IV Rocephin at this time. Infectious disease is following. Pulmonary and cardiology are following as well. Patient continues to be quite weak and having issues urinating due to extreme weakness and inability to get up and out of the bed fast enough to sit at the side of the bed to urinate. Discussed with the patient about discharge planning needs and returning to ECF for continued PT/OT therapy. Patient states he would like to go home although family would like the patient to return to the ECF as he continues to be quite weak and lethargic. Discussed with the patient about increasing activity as tolerated and sitting up in the chair with the window open and out of the bed during the day. Lactic acid continues to be elevated and is currently 5.2. Patient is maintained on IV normal saline at 130 mL per hour and to continue at this time. Currently no reports of chest pain, worsening shortness of breath, or palpitations. Patient is afebrile. No repo rts of nausea or vomiting and patient is tolerating diet. Will continue to monitor closely. 08/22/2019 Patient is seen and evaluated in follow-up today stating that he had woken up around 3 AM and was experiencing extreme confusion and did not know where he was or what was going on. Patient is currently alert and oriented 3 and answering and responding to questions appropriately. Patient states that his breathing continues to slowly improve although he continues to have a cough with no pro duction. Patient is currently on room air. Pulmonary and cardiology are following. Patient currently remains on oral Cipro as the initial urine culture showing pseudomonas aeruginosa. Repeat urine culture thus far showing gram- negative bacilli and awaiting finalization. Infectious disease is following. Patient continues working with physical therapy for strength and mobility and will likely be discharged to the ECF for continued PT/OT therapy. Currently no reports of chest pain, worsening shortness of breath, or palpitations. Patient is afebrile. No reports of nausea or vomiting and patient is tolerating diet. Patient's magnesium today is 1.6 and will be replaced. Will repeat a.m. labs. Objective - Vital Signs Vital signs: Vital Signs Temp 97.4 F L 08/22/19 08:00 Pulse 90 08/22/19 11:43 Resp 16 08/22/19 11:43 BP 99/59 08/22/19 11:43 Pulse Ox 96 08/22/19 11:43 Intake & Output 08/21/19 08/22/19 08/22/19 18:59 06:59 18:59 Intake Total 600 360 Output Total 300 1857 700 Balance 300 -1497 -700 Weight 82.5 kg Intake: Oral 600 360 Output: Urine 300 1132 700 Post Void Residual 725 Other: Voiding Method Urinal Urinal Urinal # Voids 1 1 # Bowel Movements 1 1 - Exam Gen: This is a 84-year-old male sitting up in the chair, awake, alert and oriented 3, well-developed, well-nourished. Temp is 97.4, pulse is 90, respirations are 14, blood pressure is 95/65, oxygen saturation is 97% on room air. HEENT: Head is atraumatic, normocephalic. Pupils equal, round. Sclerae is anicteric. NECK: Supple. No JVD. No lymphadenopathy. No thyromegaly. LUNGS: Diminished breath sounds at the bases with a few bilateral scattered rhonchi and crackles noted. No intercostal retractions. HEART: S1, S2 are muffled ABDOMEN: Soft. Obese. Bowel sounds are present. No masses. No tenderness. EXTREMITIES: No pedal edema. No calf tenderness. bilateral lower extremity edema improved NEUROLOGICAL: Patient is awake, alert and oriented x3. Cranial nerves 2 through 12 are grossly intact. - Labs CBC & Chem 7: 08/22/19 06:04 08/22/19 06:04 Labs: Abnormal Lab Results - Last 24 Hours (Table) 08/21/19 08/22/19 08/22/19 Range/Units 20:14 06:04 06:04 RBC 3.22 L (4.30-5.90) m/uL Hgb 9.7 L (13.0-17.5) gm/dL Hct 31.2 L (39.0-53.0) % RDW 16.5 H (11.5-15.5) % Glucose 72 L (74-99) mg/dL POC Glucose (mg/dL) 194 H (75-99) mg/dL Calcium 8.1 L (8.4-10.2) mg/dL 08/22/19 Range/Units 12:57 RBC (4.30-5.90) m/uL Hgb (13.0-17.5) gm/dL Hct (39.0-53.0) % RDW (11.5-15.5) % Glucose (74-99) mg/dL POC Glucose (mg/dL) 174 H (75-99) mg/dL Calcium (8.4-10.2) mg/dL Microbiology - Last 24 Hours (Table) 08/20/19 13:00 Urine Culture - Preliminary Urine,Clean Catch Gram Neg Bacilli 08/17/19 14:25 Blood Culture - Preliminary Blood No Growth after 96 hours Assessment and Plan Assessment: Shortness of breath with possible interstitial lung disease, acute exacerbation, with acute bilateral pneumonia with failure of outpatient treatment History of recent MSSA sepsis, with IV cefazolin through a PICC line Elevated lactic acidosis and lactic acid. Lactic acidosis, possibly secondary to sepsis, on metformin History of recent Stenotrophomonas maltophilia from sputum multiple occasions, recent computed tomography scan showing interstitial changes and possible bronchiectasis in both lower lobes History of recent congestive heart failure, acute exacerbation with acute on chronic diastolic dysfunction History of recent sepsis Elevated lactic acid of 4.3, indicative of sepsis Hyponatremia Possible acute urinary tract infection, present on admission Anemia, normocytic, anemia of chronic disease History of diabetes mellitus type 2 Gastroesophageal reflux disease Hypertension Hyperlipidemia Memory impairment History of pneumonia History of fractures, L2for with leg pain History of degenerative joint disease history of gout History of Hernandez's esophagitis History of esophageal carcinoma, completed 20 radiations and 5 chemo treatments Hiatal hernia history of nephrolithiasis History of carotid artery stenosis history of back surgery, degenerative joint disease History of bilateral rotator cuff surgery Full code Recommendations and discussion: Recommend to continue current medications, management, and symptomatic treatment. Continue with oral Cipro. Most recent repeat urine culture preliminary showing gram-negative bacilli. Will await finalization. Infectious disease is following. Multiple medical consultations following. PT/OT following and working with the patient. Due to multiple complex medical issues, prognosis is extremely guarded. Will continue to monitor vital signs and labs closely. Further recommendations to follow. Possible discharge to ECF in 24-48 hours.
[2019-08-22] MEDS: SODIUM CHLORIDE 0.9% 1,000 ML IV SCH (15:57)
[2019-08-22 17:25] LABS: Glucose,Whole Blood 86 mg/dL (75-99)
[2019-08-22 20:51] LABS: Glucose,Whole Blood 174 mg/dL (75-99)
[2019-08-22] MEDS: FLUTICASONE 50MCG/SPRAY NASAL 16GM EA NOSTRIL SCH (21:11)
[2019-08-22] MEDS: MELATONIN 5 MG TABLET PO SCH (21:11)
[2019-08-22] MEDS: PRAVASTATIN SODIUM 80 MG TAB PO SCH (21:12)
[2019-08-22] MEDS: INSULIN DETEMIR (LEVEMIR) 100 UNIT/ML SYR SQ SCH (21:13)
[2019-08-23 04:08] VITALS: RESP 18
[2019-08-23] MEDS: SODIUM CHLORIDE 0.9% 1,000 ML IV SCH (06:56)
[2019-08-23 07:29] LABS: Anisocytosis Slight; Basophils % (A) 0 %; Eosinophils # (A) 0.1 k/uL (0-0.7); Eosinophils % (A) 1 %; HCT 30.1 % (39.0-53.0); HGB 9.4 gm/dL (13.0-17.5); Hypochromasia Moderate; Lymphocytes # (A) 0.9 k/uL (1.0-4.8); Lymphocytes % (A) 13 %; MCH 30.1 pg (25.0-35.0); MCHC 31.4 g/dL (31.0-37.0); MCV 96.1 fL (80.0-100.0); Mean Platelet Volume 7.8; Monocytes # (A) 0.4 k/uL (0-1.0); Monocytes % (A) 6 %; Neutrophils # (A) 5.4 k/uL (1.3-7.7); Neutrophils % (A) 78 %; Platelet Count 228 k/uL (150-450); Poikilocytosis Slight; RBC 3.13 m/uL (4.30-5.90); RDW 16.6 % (11.5-15.5); WBC 6.9 k/uL (3.8-10.6)
[2019-08-23 07:31] LABS: African American GFR (CKD) >90 (>60 ml/min/1.73 sqM); Anion Gap 6 mmol/L; Blood Urea Nitrogen 10 mg/dL (9-20); Carbon Dioxide 28 mmol/L (22-30); Chloride 105 mmol/L (98-107); Glucose 58 mg/dL (74-99); Non-African American GFR(CKD) 85 (>60 ml/min/1.73 sqM); Potassium 3.2 mmol/L (3.5-5.1); Sodium 139 mmol/L (137-145)
[2019-08-23 08:19] LABS: Glucose,Whole Blood 89 mg/dL (75-99)
[2019-08-23] MEDS: INSULIN ASPART (NovoLOG) 100 UNIT/ML VIAL SQ SCH ×4 (08:25→13:10)
[2019-08-23] MEDS: ALLOPURINOL 300 MG TAB PO SCH (08:47)
[2019-08-23] MEDS: CIPROFLOXACIN HCL 500 MG TAB PO SCH (08:47)
[2019-08-23] MEDS: LACTOBACILLUS ACIDOPH & BULGAR 1 EACH PACKET PO SCH (08:47)
[2019-08-23] MEDS: ASPIRIN 81 MG PO SCH (08:48)
[2019-08-23] MEDS: PANTOPRAZOLE 40 MG TABLET PO SCH (08:48)
[2019-08-23] MEDS: METOPROLOL TARTRATE 50 MG TAB PO SCH (08:48)
[2019-08-23] MEDS: POTASSIUM CHLORIDE ER 20 MEQ TAB.ER PO SCH (08:48)
[2019-08-23] MEDS: guaiFENesin 600 MG TABLET.ER PO SCH (08:48)
[2019-08-23] MEDS: GABAPENTIN 400 MG CAP PO SCH (08:48)
[2019-08-23] MEDS: LORATADINE 10 MG TAB PO SCH (08:48)
[2019-08-23] MEDS: guaiFENesin-DM 100-10MG/5ML 10 ML CUP PO SCH (08:48)
[2019-08-23] MEDS: TORSEMIDE 20 MG TAB PO SCH (08:49)
[2019-08-23] MEDS: NEOMYCIN-BACITRACIN-POLY OINT 14 GM TUBE TOPICAL SCH (08:49)
[2019-08-23] MEDS: IPRATROPIUM-ALBUTEROL 3 ML NEB INHALATION SCH ×2 (09:24→12:43)
[2019-08-23] MEDS: FORMOTEROL FUMARATE 20 MCG/2 ML NEBU INHALATION SCH (09:24)
[2019-08-23] MEDS: BUDESONIDE 1 MG/2 ML NEBU INHALATION SCH (09:26)
[2019-08-23 12:06] VITALS: BP 98/74; TEMP 97.9
[2019-08-23 12:31] LABS: Glucose,Whole Blood 137 mg/dL (75-99)
[2019-08-23 12:45] VITALS: PULSE 74
--- NOTE | 2019-08-23 14:06 | P.DS ---
Providers Date of admission: 08/17/19 14:22 Expected date of discharge: 08/23/19 Attending physician: Bear Sampson Consults: 08/17/19 14:22 Consult Physician Stat Consulting Provider: Wilder Brown Consult Reason/Comments: Possible sepsis Do you want consulting provider notified?: Yes 08/17/19 16:46 Consult Physician Routine Consulting Provider: Neftaly Nur Consult Reason/Comments: sepsis Do you want consulting provider notified?: Yes 08/17/19 17:06 Consult Physician Routine Consulting Provider: Randi Albrecht Consult Reason/Comments: high trops Do you want consulting provider notified?: Yes [facility] Course: Final diagnosis Shortness of breath with possible interstitial lung disease, acute exacerbation, with acute bilateral pneumonia with failure of outpatient treatment History of recent MSSA sepsis, with IV cefazolin through a PICC line Elevated lactic acidosis and lactic acid. Lactic acidosis, possibly secondary to sepsis, on metformin History of recent Stenotrophomonas maltophilia from sputum multiple occasions, recent computed tomography scan showing interstitial changes and possible bronchiectasis in both lower lobes History of recent congestive heart failure, acute exacerbation with acute on chronic diastolic dysfunction History of recent sepsis Elevated lactic acid of 4.3, indicative of sepsis Hyponatremia Possible acute urinary tract infection, present on admission Anemia, normocytic, anemia of chronic disease History of diabetes mellitus type 2 Gastroesophageal reflux disease Hypertension Hyperlipidemia Memory impairment History of pneumonia History of fractures, L2for with leg pain History of degenerative joint disease history of gout History of Hernandez's esophagitis History of esophageal carcinoma, completed 20 radiations and 5 chemo treatments Hiatal hernia history of nephrolithiasis History of carotid artery stenosis history of back surgery, degenerative joint disease History of bilateral rotator cuff surgery Full code Discharge disposition Patient is being discharged in a stable condition with guarded prognosis to [facility] for continued PT/OT therapy. Patient will follow-up with Dr. Dozier in the outpatient setting upon discharge. Patient will continue on a short course of oral antibiotics in the form of Cipro 500 mg twice daily for the next 10 days and then may discontinue. Patient will also complete short prednisone taper in the outpatient setting. Total time taken is 35 minutes. History of present illness This is a 84-year-old male who was recently admitted with shortness of breath, increased weakness and pneumonia and was being closely monitored. Multiple medical consultations were following. Patient was treated with IV ceftriaxone for gram-negative bacilli growing in the urine which finalized as Staphylococcus aureus and patient was started on Cipro. Repeat urine culture continue to show Staphylococcus aureus and patient will continue with oral Cipro 500 mg twice daily for the next 10 days and then may discontinue. Patient is currently maintained on Demadex and will continue at this time. Patient's blood sugar was slightly low today and will continue with sliding scale along with 5 units of aspart 3 times a day with meals and continue with long-acting Levemir 30 units daily. Patient is to continue with Accu-Cheks before meals at bedtime and treat accordingly. During hospitalization patient has been working with physical therapy and will continue in the outpatient setting for strength and mobility. Currently no reports of chest pain, worsening shortness of breath, or palpitations. Is afebrile. No reports of nausea or vomiting and patient is tolerating diet. Currently patient's condition is stable and is ready for discharge to the nursing facility today. Guarded prognosis. On exam vital signs are stable. Temp is 97.9 F, pulse is 73, respirations are 18, blood pressure is 98/74, oxygen saturation is 97% on room air. Cardio S1, S2 are muffled. Respiratory system shows diminished breath sounds at the bases with a few scattered rhonchi noted. Abdomen is soft, obese, nontender. Nervous system shows mild diffuse weakness. Please refer to medication reconciliation sheet for a list of medications. Patient Condition at Discharge: Fair Plan - Discharge Summary Discharge Rx Participant: No New Discharge Prescriptions: New Zolpidem [Ambien] 5 mg PO HS PRN #2 tab PRN Reason: Insomnia Aspirin 81 mg PO DAILY chew Ciprofloxacin HCl [Cipro] 500 mg PO BID 10 Days #20 tab guaiFENesin [Mucinex] 600 mg PO Q12HR tablet.er Gabapentin [Neurontin] 400 mg PO TID #6 cap INSULIN ASPART (NovoLOG) [NovoLOG (formulary)] 0 unit SQ ACHS vial predniSONE 10 mg PO DIRECTED #30 tab Continue Nitroglycerin Sl Tabs [Nitrostat] 0.4 mg SUBLINGUAL Q5M PRN PRN Reason: Chest Pain Cetirizine HCl 10 mg PO DAILY Pravastatin Sodium [Pravachol] 80 mg PO HS@2000 Allopurinol [Zyloprim] 300 mg PO DAILY Ipratropium-Albuterol Nebulize [Duoneb 0.5 mg-3 mg/3 ml Soln] 3 ml INHALATION RT-Q6H Fluticasone Nasal [place] [Flonase Nasal [place]] 2 spray EA NOSTRIL HS@1999 Bisacodyl [Dulcolax] 10 mg PO DAILY PRN tablet. PRN Reason: Constipation Formoterol Fumarate [Perforomist] 20 mcg INHALATION RT-BID nebu Pantoprazole [Protonix] 40 mg PO AC-BRKFST tablet. Budesonide [Pulmicort] 1 mg INHALATION RT-BID ml guaiFENesin-DM 100-10MG/5ML [Robitussin DM] 5 ml PO BID ml Potassium Chloride ER [K-Dur 20] 20 meq PO BID Ipratropium-Albuterol Nebulize [Duoneb 0.5 mg-3 mg/3 ml Soln] 3 ml INHALATION RT-Q4H PRN PRN Reason: Shortness Of Breath Metoprolol Tartrate [Lopressor] 50 mg PO DAILY tab Acetaminophen Tab [Tylenol] 650 mg PO Q4HR PRN tab PRN Reason: Fever And/ Or Pain Insulin Glargine [Lantus] 30 unit SQ HS L.acidoph,Paracasei, B.lactis [Probiotic] 1 cap PO BID Zireiypv-Hlsenkledi-Kheg Oint [Triple Antibiotic Ointment] 1 applic TOPICAL BID Torsemide [Demadex] 40 mg PO DAILY Changed Insulin Aspart [NovoLOG] 5 units SQ AC-TID #0 Discontinued Cefazolin Sodium/D5w [Kefzol 2 Gm/D5w 100 ml] 2 gm IV Q8H #42 plast..bag Zolpidem [Ambien] 10 mg PO HS@1999 #1 tab Gabapentin [Neurontin] 1,200 mg PO HS@2199 #1 cap Gabapentin [Neurontin] 600 mg PO BID #2 cap Heparin Lock Flush 3 ml IV Q8H metFORMIN HCL [Glucophage] 500 mg PO BID@0700,1600 Discharge Medication List Cetirizine HCl 10 mg PO DAILY 07/05/15 [History] Nitroglycerin Sl Tabs [Nitrostat] 0.4 mg SUBLINGUAL Q5M PRN 07/05/15 [History] Pravastatin Sodium [Pravachol] 80 mg PO HS@199909/01/17 [History] Allopurinol [Zyloprim] 300 mg PO DAILY 01/26/18 [History] Ipratropium-Albuterol Nebulize [Duoneb 0.5 mg-3 mg/3 ml Soln] 3 ml INHALATION RT -Q6H 04/22/19 [History] Fluticasone Nasal [place] [Flonase Nasal [place]] 2 spray EA NOSTRIL HS@199907/14/19 [History] Bisacodyl [Dulcolax] 10 mg PO DAILY PRN tablet. 07/25/19 [Rx] Budesonide [Pulmicort] 1 mg INHALATION RT-BID ml 07/25/19 [Rx] Formoterol Fumarate [Perforomist] 20 mcg INHALATION RT-BID nebu 07/25/19 [Rx] Pantoprazole [Protonix] 40 mg PO AC-BRKFST tablet. 07/25/19 [Rx] guaiFENesin-DM 100-10MG/5ML [Robitussin DM] 5 ml PO BID ml 07/25/19 [Rx] Ipratropium-Albuterol Nebulize [Duoneb 0.5 mg-3 mg/3 ml Soln] 3 ml INHALATION RT-Q4H PRN 07/29/19 [History] Potassium Chloride ER [K-Dur 20] 20 meq PO BID 07/29/19 [History] Acetaminophen Tab [Tylenol] 650 mg PO Q4HR PRN tab 08/03/19 [Rx] Metoprolol Tartrate [Lopressor] 50 mg PO DAILY tab 08/03/19 [Rx] Insulin Glargine [Lantus] 30 unit SQ HS 08/17/19 [History] L.acidoph,Paracasei, B.lactis [Probiotic] 1 cap PO BID 08/17/19 [History] Bbzmphbx-Yenyeerdwu-Npwh Oint [Triple Antibiotic Ointment] 1 applic TOPICAL BID 08/17/19 [History] Torsemide [Demadex] 40 mg PO DAILY 08/17/19 [History] Aspirin 81 mg PO DAILY chew 08/23/19 [Rx] Ciprofloxacin HCl [Cipro] 500 mg PO BID 10 Days #20 tab 08/23/19 [Rx] Gabapentin [Neurontin] 400 mg PO TID #6 cap 08/23/19 [Rx] INSULIN ASPART (NovoLOG) [NovoLOG (formulary)] 0 unit SQ ACHS vial 08/23/19 [Rx] Insulin Aspart [NovoLOG] 5 units SQ AC-TID #0 08/23/19 [Rx] Zolpidem [Ambien] 5 mg PO HS PRN #2 tab 08/23/19 [Rx] guaiFENesin [Mucinex] 600 mg PO Q12HR tablet.er 08/23/19 [Rx] predniSONE 10 mg PO DIRECTED #30 tab 08/23/19 [Rx] Follow up Appointment(s)/Referral(s): [facility], [NON-STAFF] - 1 Week Sumit Dozier DO [Primary Care Provider] - 1-2 days Ambulatory/Diagnostic Orders: Basic Metabolic Panel [LAB.AMB] Time Frame: 2 Days, Location: None Selected Complete Blood Count w/diff [LAB.AMB] Time Frame: 2 Days, Location: None Selected Activity/Diet/Wound Care/Special Instructions: Patient going to [facility] Activity as tolerated Continue current diet Continue monitoring blood sugars before meals at bedtime and treat accordingly with sliding scale Continue with antibiotics for 10 days and then may discontinue Continue working with PT/OT Discharge Disposition: TRANSFER TO SNF/ECF
--- NOTE | 2019-08-23 14:53 | P.PN ---
Subjective Progress Note Date: 08/23/19 This is a-year-old male patient was in rehabilitation was progressively For That Reason He Was Brought Infection. X-Ray Came into My Office and I Directed Him. The Patient Came in for Altered Mentation, Generalized Weakness, Shortness Breath, Cough, Diminished Appetite, Inability to Walk and generalized weakness without any significant focal neurological deficit. No fever. No chills. No leukocytosis. No diarrhea or nausea or vomiting or abdominal pain. No aspiration. I was quite shocked to see the massive declined that he had in his condition yesterday in the office and I made recommendations to admit this patient to the hospital for further workup. Note that he was in the hospital approximately 2 weeks ago for a underlying pneumonia. He was diagnosed having staphylococcal pneumonia with bacteremia as the bacteria was cultured also in his blood. Nevertheless, the sputum and the previous bronchial alveolar lavage is that were done also showed Stenotrophomonas. We had lengthy discussion with the sections disease specialist. We decided to hold off treating this gram- negative bacteria and concentrate mainly on the staphylococcal infection knowing that the patient had a MSSA pneumonia and bacteremia. After some limited improvement, the patient was [facility] unfortunately, he did not have any success in terms of rehabilitation. He completed his antibiotic course. His condition got progressively worse. He is extremely weak. He is unable to get up and walk. At times is confused. He is lethargic. Is short of breath. There is a steady decline in his health in general and there is obvious concern that the patient may further decompensated. For that reason, I sent him today to the emergency for further investigation. For now, I reviewed the most recent blood work and there is no significant leukocytosis or electrode disturbances. There is concern for an underlying occult infection with gram- negative bacteria in his lungs. Other possibilities that may decompensate his condition are still, cancer progression, and adrenal insufficiency as the patient has taken significant amount of steroids in the past. I would recommend hospitalization for now for further workup. Note that his mentation is altered. He does have previous history of esophageal cancer treated with chemoradiation therapy and his disease has been in remission and the most CAT scan of the chest abdomen and pelvis that was done in January 2019 showed no evidence of any disease progression. His post acute lung injury/ARDS back in January 2018 from which he recovered nicely. He has hypertension and hyperlipidemia and gout as comorbid conditions. His room air pulse ox today is 91%. Nausea. No vomiting. No diarrhea. No aspiration. He has had previous swallow evaluation in the hospital that showed adequate swallow. Note that he is also diabetic.In the hospital, the patient initially had a lactic acid level of 4.3 and it dropped down to 2.1 and later on came up to 4.2 and this morning is up to 6.2. The CAT scan of the brain showed no acute abnormalities. It showed essentially chronic findings.. There is no evidence of any acute hemorrhage or bleeding. CAT scan of the chest also showed chronic interstitial infiltrates in the lung bases slightly more prominent compared to the earlier CAT scan. 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 The white cell count is at 5.9. Serum cortisol was 14. Urinalysis showed no infection. Influenza screen was negative. This morning he is awake and alert and stronger and tolerating diet and has no specific complaints. He is on IV fluids currently running at 120 mL an hour. On 08/19/2019 patient seen in follow-up on selective care unit, he is sitting up in the recliner, in no acute distress, mentation is back to baseline, patient is awake and alert and oriented 3, room air pulse ox is 95%, his been afebrile, blood pressure stable, at 109/65, no tachycardia, he does have occasional coughing spells, but his cough is dry, and nonproductive, lung sounds reveal some inspiratory crackles over left lower lobe posteriorly, no major rhonchi or wheezing noted on today's exam. Patient is receiving IV hydration in the form of 0.9 normal saline at a rate of 1:30 ML per hour, tolerating oral diet, no n ausea vomiting or diarrhea. Empiric antibiotics in the form of Rocephin, urine culture showed gram-negative bacilli, final cultures pending. Blood cultures have been negative thus far, today's lab have been reviewed, white blood cell count is 10, hemoglobin is 8.8, electrolytes and renal profile are unremarkable. CT of the abdomen and pelvis showed basilar pulmonary infiltrates and bilateral pleural thickening, progressed slightly compared to old computed tomography scan, moderate cardiomegaly, multiple compression fractures no acute abnormality within the abdomen or pelvis. On 08/23/2019 patient seen in follow-up on selective care unit, he is awake and alert, no signs of confusion, vital signs are stable, patient denies any acute distress, denies any dyspnea, room air pulse ox of 97%, hemodynamically stable, no fever or chills he is on Cipro for the pseudomonal urinary tract infection. His metformin was placed on hold, his lactic acidosis has resolved, no acute issues overnight, he is on a daily dose of torsemide, has some lower extremity edema, but no worsening dyspnea, today's lab work has been reviewed showing white blood cell count of 6.9, hemoglobin of 9.4, sodium of 139, potassium 3.2, the rest of the electrolytes and renal profile were within normal limits, discharge planning is in progress for discharge to the [facility]. Objective - Vital Signs Vital signs: Vital Signs Temp 97.9 F 08/23/19 12:00 Pulse 74 08/23/19 12:54 Resp 18 08/23/19 12:00 BP 98/74 08/23/19 12:00 Pulse Ox 97 08/23/19 12:00 Intake & Output 08/22/19 08/23/19 08/23/19 18:59 06:59 18:59 Intake Total 240 563 Output Total 2000 900 Balance -2000 -660 563 Weight 82.6 kg Intake: IV 3 Invasive Line 1 3 Oral 240 560 Output: Urine 1999 900 Other: Voiding Method Urinal Urinal Urinal # Voids 1 1 # Bowel Movements 1 - Exam GENERAL EXAM: Alert, pleasant 84-year-old male patient, the patient is on room air oxygen, in no acute distress, comfortable in no apparent distress. HEAD: Normocephalic/atraumatic. EYES: Normal reaction of pupils, equal size. Conjunctiva pink, sclera white. NOSE: Clear with pink turbinates. THROAT: No erythema or exudates. NECK: No masses, no JVD, no thyroid enlargement, no adenopathy. CHEST: No chest wall deformity. Symmetrical expansion. LUNGS: Equal air entry with crackles in the posterior bases. CVS: Regular rate and rhythm, normal S1 and S2, no gallops, no murmurs, no rubs ABDOMEN: Soft, nontender. No hepatosplenomegaly, normal bowel sounds, no guarding or rigidity. EXTREMITIES: No clubbing, 1+ pitting edema in bilateral lower extremities, no cyanosis, 2+ pulses and upper and lower extremities. MUSCULOSKELETAL: Muscle strength and tone normal. SPINE: No scoliosis or deformity SKIN: No rashes CENTRAL NERVOUS SYSTEM: No focal deficits, tone is normal in all 4 extremities. PSYCHIATRIC: Alert and oriented -3. Appropriate affect. Intact judgment and insight. - Labs CBC & Chem 7: 08/23/19 06:11 08/23/19 06:11 Labs: Abnormal Lab Results - Last 24 Hours (Table) 08/22/19 08/23/19 08/23/19 Range/Units 20:42 06:11 06:11 RBC 3.13 L (4.30-5.90) m/uL Hgb 9.4 L (13.0-17.5) gm/dL Hct 30.1 L (39.0-53.0) % RDW 16.6 H (11.5-15.5) % Lymphocytes # 0.9 L (1.0-4.8) k/uL Potassium 3.2 L (3.5-5.1) mmol/L Glucose 58 L (74-99) mg/dL POC Glucose (mg/dL) 174 H (75-99) mg/dL Calcium 8.0 L (8.4-10.2) mg/dL 08/23/19 Range/Units 12:30 RBC (4.30-5.90) m/uL Hgb (13.0-17.5) gm/dL Hct (39.0-53.0) % RDW (11.5-15.5) % Lymphocytes # (1.0-4.8) k/uL Potassium (3.5-5.1) mmol/L Glucose (74-99) mg/dL POC Glucose (mg/dL) 137 H (75-99) mg/dL Calcium (8.4-10.2) mg/dL Microbiology - Last 24 Hours (Table) 08/20/19 13:00 Urine Culture - Final Urine,Clean Catch Pseudomonas aeruginosa 08/17/19 14:25 Blood Culture - Preliminary Blood No Growth after 120 hours Assessment and Plan Plan: Assessment: #1. UTI with pseudomonas aeruginosa mode currently on Cipro #2. 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 Altered mentation at the ECF at the time of symptom onset with coughing, confusion, and chest congestion, improved #4. Plasma lactic acidosis, possibly related to sepsis, possibly related to metformin, discontinued and electing is level is down to 1.5 #5. Elevated troponins, nonspecific #6. 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 History of esophageal cancer status post resection and subsequent radiofreq uency ablation at [facility] in November 2012 with recurrence and chemoradiation in 2018 completed 09/02/2017 #8. Obesity #9. Hypertension #10. Hyperlipidemia #11. Gout #12. Lifelong nonsmoker with normal pulmonary function testing #13. History of chronic kidney disease, recovered and the patient's renal function is normal. #14. History of left carotid occlusion #15 increased lower extremity edema, with difficulty with mobility due to generalized weakness. #16 valvular heart disease with moderate degree of aortic stenosis and an ejection fraction of 55-60%. The peak gradient across the valve was 41 mmHg no significant pulmonary hypertension. Plan: Patient remains stable, altered mentation, no fever or chills, he is on ciprofloxacin for pseudomonal urinary tract infection, doing well, his lactic acidosis has resolved after metformin has been discontinued. No worsening dyspnea, a is on room air, maintaining stable oxygenation, increase activity as tolerated. No acute issues overnight, his lactic acidosis has resolved, we discontinued the metformin, he is generalized weakness is getting better, check planning is in progress for discharge to [facility] today I performed a history & physical examination of the patient and discussed their management with my nurse practitioner, Shae Freeman. I reviewed the nurse practitioner's note and agree with the documented findings and plan of care. Lung sounds are positive for diminished breath sounds, and crackles at the bases. The findings and the impression was discussed with the patient. I attest to the documentation by the nurse practitioner. Time with Patient: Less than 30
== END 2019-08-23 16:10 | DRG 871 ==
LOC: EC 10:07 → 3SCARD 14:22
PROVIDERS: ADMIT Hospitalist; ATTEND Hospitalist
DX: A41.9 Sepsis, unspecified organism (principal); G93.41 Metabolic encephalopathy; J18.9 Pneumonia, unspecified organism; E27.40 Unspecified adrenocortical insufficiency; E87.1 Hypo-osmolality and hyponatremia; I50.32 Chronic diastolic (congestive) heart failure; J84.9 Interstitial pulmonary disease, unspecified; J44.0 Chronic obstructive pulmonary disease with (acute) lower respiratory infection; N39.0 Urinary tract infection, site not specified; J98.11 Atelectasis; B96.5 Pseudomonas (aeruginosa) (mallei) (pseudomallei) as the cause of diseases classified elsewhere; D63.8 Anemia in other chronic diseases classified elsewhere; R62.7 Adult failure to thrive; E11.40 Type 2 diabetes mellitus with diabetic neuropathy, unspecified; E11.51 Type 2 diabetes mellitus with diabetic peripheral angiopathy without gangrene; I11.0 Hypertensive heart disease with heart failure; I71.2 Thoracic aortic aneurysm, without rupture; E66.9 Obesity, unspecified; E78.5 Hyperlipidemia, unspecified; E86.0 Dehydration; H91.90 Unspecified hearing loss, unspecified ear; I25.10 Atherosclerotic heart disease of native coronary artery without angina pectoris; I35.0 Nonrheumatic aortic (valve) stenosis; K21.9 Gastro-esophageal reflux disease without esophagitis; K22.70 Barrett's esophagus without dysplasia; K44.9 Diaphragmatic hernia without obstruction or gangrene; M10.9 Gout, unspecified; S32.009S Unspecified fracture of unspecified lumbar vertebra, sequela; E83.42 Hypomagnesemia; I65.22 Occlusion and stenosis of left carotid artery; R26.2 Difficulty in walking, not elsewhere classified; M19.90 Unspecified osteoarthritis, unspecified site; T38.3X5A Adverse effect of insulin and oral hypoglycemic [antidiabetic] drugs, initial encounter; R79.89 Other specified abnormal findings of blood chemistry; R41.3 Other amnesia; Z79.4 Long term (current) use of insulin; Z79.899 Other long term (current) drug therapy; Z85.01 Personal history of malignant neoplasm of esophagus; Z87.01 Personal history of pneumonia (recurrent); Z87.11 Personal history of peptic ulcer disease; Z87.442 Personal history of urinary calculi; Z92.21 Personal history of antineoplastic chemotherapy; Z92.3 Personal history of irradiation; Z99.3 Dependence on wheelchair; Z88.0 Allergy status to penicillin; Z91.040 Latex allergy status; Z90.49 Acquired absence of other specified parts of digestive tract; Z98.42 Cataract extraction status, left eye; Z98.41 Cataract extraction status, right eye; Z96.1 Presence of intraocular lens; Z68.28 Body mass index [BMI] 28.0-28.9, adult; Z80.8 Family history of malignant neoplasm of other organs or systems; Z82.49 Family history of ischemic heart disease and other diseases of the circulatory system; Z80.51 Family history of malignant neoplasm of kidney
CPT/HCPCS: 36415; 70450; 71045; 71046; 71250; 74177; 80048; 80053; 80171; 81001; 82533; 82550; 83605; 83735; 83880; 84145; 84484; 85025; 85610; 85730; 86140; 87040; 87077; 87086; 87186; 87502; 93005; 93308; 94640; 94760; 96361; 96365; 96375; 99291

== ENCOUNTER → 2019-11-14 | Outpatient (CLI) | payer MEDICARE ==
--- NOTE | 2019-11-14 13:56 | CT ---
EXAMINATION TYPE: CT ChestAbdPelvis w con DATE OF EXAM: 11/14/2019 COMPARISON: Most recent CTs August 18, 2019 and August 17, 2019 along with older CTs. Most recent PET CT October 24, 2017. Older PET/CT May 30, 2017. HISTORY: Follow up esophageal cancer CT DLP: 1039.9 mGycm. Automated Exposure Control for Dose Reduction was Utilized. CONTRAST: CT scan of the thorax, abdomen and pelvis is performed with IV Contrast, patient injected with 100 mL of Isovue 300. FINDINGS: LUNGS: Mild to moderate emphysematous change with parenchymal fibrotic changes redemonstrated bilater ally greatest in the bases where it is moderate to severe in appearance. No new suspicious nodules or masses. No pleural effusion or pneumothorax seen bilaterally. MEDIASTINUM: There is a 1.5 x 1.1 cm superior mediastinal lymph node above the aortic arch right para esophageal level axial image 13 that has been present and prominent on prior studies but now measurin g perhaps slightly larger in size. Possible elongated prominent right paraesophageal lymph node axial image 34 for reference is not significantly changed from prior studies3 There are no additional or n ew greater than 1 cm hilar or mediastinal lymph nodes. No pericardial effusion is seen. Persistent cardiomegaly with three-vessel coronary artery calcification and/or stents. No pericardial effusion. OTHER: Small degree of bilateral subareolar gynecomastia. LIVER/GB: Liver somewhat small in size with lobulated peripheral contour. Cannot exclude underlying c irrhosis. Correlate clinically. PANCREAS: No significant abnormality is seen. SPLEEN: No significant abnormality is seen. ADRENALS: No significant abnormality is seen. KIDNEYS: Similar areas of cortical volume loss throughout both kidneys greater on the left. Few tiny simple appearing thin-walled cysts scattered bilaterally. Symmetric cortical medullary uptake and exc retion without hydronephrosis seen bilaterally. BOWEL: Oral contrast does not reach level of terminal ileum making evaluation of distal bowel subopti mal. No suspicious small or large bowel dilatation. GENITAL ORGANS: No gross abnormality seen. LYMPH NODES: No greater than 1cm abdominal or pelvic lymph nodes are appreciated. OSSEOUS STRUCTURES: Osseous structures are demineralized. Redemonstration of vertebroplasty at L2-L4 levels. Mild height loss at L2 and L4 level. Multilevel spurring in the thoracic spine. Facet arthrop athy lower lumbar levels. Spurring bilateral sacroiliac joints. OTHER: Moderate to severe mixed and calcified plaque of the aorta extends into the iliac branch vesse ls. IMPRESSION: Single lymph node in the superior mediastinum slightly larger from most recent and multip le prior studies back to PET CT May 30, 2017 is suspicious for active neoplastic recurrence. Co nsider repeat PET/CT. No additional new or enlarging suspicious mass or adenopathy noted.
== END | disposition home or self-care (01) ==
LOC: RADCTMAIN 11:20
PROVIDERS: ATTEND Internal Medicine Hematology & Oncology
DX: Z03.89 Encounter for observation for other suspected diseases and conditions ruled out (principal); C15.5 Malignant neoplasm of lower third of esophagus; Z88.0 Allergy status to penicillin; Z91.040 Latex allergy status
CPT/HCPCS: 82565; 84520; 71260; 74177; 36415; Q9967

== ENCOUNTER → 2019-11-30 | Outpatient (CLI) | payer MEDICARE ==
[2019-11-30 10:59] VITALS: RESP 16
[2019-11-30 11:02] VITALS: BP 115/67; PULSE 69
--- NOTE | 2019-11-30 11:06 | P.PAINPG ---
Subjective Progress Note Date: 11/30/19 This is a follow up visit for this 84 year old male, with a chronic history of severe low back pain, patient diagnosed with lumbar degenerative disc disease and lumbar spondylosis with lumbar facet arthropathy, and cluneal nerve neuralgia, managed with interventional pain procedures. Today, his primary pain complaint is low back pain, which intermittently shoots to the bilateral buttocks and radha-lateral aspects of bilateral thighs. Pain is rated a 0- 10/10, averaging 7/10. Pain is worse with walking, when he wakes up in the morning. Pain is better with medications, sitting, procedures. He is using a walker/cane to ambulate. He last underwent lumbar RFA in December 2018 and reports >50% benefit, lasting >6 months. He would like to have this procedure repeated, and was scheduled to have it done in August, however he was admitted to [facility] for pneumonia and sepsis in August 2019, he has since recovered, however has a chronic cough. Medications for pain include gabapentin, meloxicam, Tylenol. He reports no side effects from these medications, they're helping control his pain Review of systems is negative for chest pain, new onset weakness, numbness/tingling, abdominal pain, malaise, fever, night sweats, chills, homicidal or suicidal ideation, or bowel or bladder incontinence. OF note, he does have a chronic cough since his admission in August 2019. Physical exam: Vitals: Reviewed in EMR GENERAL: In no acute distress, patient seated in wheelchair today PSYCH: Mood and affect is appropriate. Awake, alert, and oriented SKIN: Skin color, texture, turgor normal, no rashes or lesions HEENT: Normocephalic, atraumatic. EOM intact CV: No pedal edema RESP: Patient is coughing, no audible wheezing GI: Abdomen non-distended MUSCULOSKELETAL: Bilateral lower extremity strength is normal and symmetric. No atrophy or tone abnormalities are noted. Lumbar spine: Tenderness to palpation along the lumbar spinous processes and bilateral paraspinal musculature. Limited lumbar extension. Bilateral facet loading positive. Extremities: Peripheral joint ROM is full and pain free without obvious instability or laxity in all four extremities. No edema or skin discolorations noted. NEUR: No loss of sensation is noted. [facility]= compression fracture L2-L3 and L4 and T12, multilevel lumbar bulging disc disease at L3 4 and L4 5, and multilevel lumbar facet arthropathy L2 3 L3 4 and L4 5 and L5-S1. Moderate to severe spinal canal stenosis at L3-4 with moderate bilateral neuroforaminal narrowing. At L4-5 mild to moderate spinal canal stenosis with mild to moderate left and moderate right neuroforaminal narrowing. Assessment and plan= chronic severe low back pain secondary to multifactorial causes 1-compression fracture of the lumbar spine. 2-lumbar degenerative disc disease. 3-lumbar spondylosis with lumbar facet arthropathy. 4-Bilateral cluneal nerve entrapment/neuropathy. 5- lumbar spinal canal stenosis Patient improved significantly after radiofrequency ablation of the median branch lumbar area and cluneal nerve area as well as LESI. We will schedule L3, L4, L5 RFA, bilaterally. We will plan on avoiding steroids as the patient is diabetic and has reported increase in blood sugars following oral steroids. Medications: Managed by PCP PQRS Measure Charge Sheet Measure #130: Documentation of Current Meds in Medical Chart: Patient's medications documented in chart Measure #226: Tobacco Use: Screen & Cessation Intervention: Pt not a tobacco user Measure #111: Pneumonia Vaccination: Pneumococcal vaccine administered or previously received Measure #47: Advance Care Plan: Advance care planning discussed & documented, pt chose/unable to give Measure #412: Opioid Treatment Agreement: No documentation of signed opioid treatment agreement Measure #317: Preventitive Care & Scrn High Bld Press & F/U: Blood pressure within normal limits Measure #128: Body Mass Index (BMI) Screening & Follow-up: BMI documented within normal parameters Measure #131: Pain Assessment & Follow-up: Pain positive & plan documented, Follow-up scheduled Measure #431: Unhealthy Alcohol Use Preventative Care & Scrn: Patient not identified as an unhealthy alcohol user PQRS Measure Charge Sheet PQRS Narrative: Smoking Status Never smoker Pain Intensity [Back] 0 Scale Used Numeric (1 - 10) Hx Alcohol Use (MH) Yes Home Medications: Ambulatory Orders Cetirizine HCl 10 mg PO DAILY 07/05/15 Nitroglycerin Sl Tabs [Nitrostat] 0.4 mg SUBLINGUAL Q5M PRN 07/05/15 Pravastatin Sodium [Pravachol] 80 mg PO HS@199909/01/17 Allopurinol [Zyloprim] 300 mg PO DAILY 01/26/18 Fluticasone Nasal [place] [Flonase Nasal [place]] 2 spray EA NOSTRIL HS@199907/14/19 Bisacodyl [Dulcolax] 10 mg PO DAILY PRN tablet. 07/25/19 Budesonide [Pulmicort] 1 mg INHALATION RT-BID ml 07/25/19 Formoterol Fumarate [Perforomist] 20 mcg INHALATION RT-BID nebu 07/25/19 Ipratropium-Albuterol Nebulize [Duoneb 0.5 mg-3 mg/3 ml Soln] 3 ml INHALATION RT-Q4H PRN 07/29/19 Acetaminophen Tab [Tylenol] 650 mg PO Q4HR PRN tab 08/03/19 Insulin Glargine [Lantus] 30 unit SQ HS 08/17/19 Aspirin 81 mg PO DAILY chew 08/23/19 Ciprofloxacin HCl [Cipro] 500 mg PO BID 10 Days #20 tab 08/23/19 INSULIN ASPART (NovoLOG) [NovoLOG (formulary)] 0 unit SQ ACHS vial 08/23/19 Zolpidem [Ambien] 5 mg PO HS PRN #2 tab 08/23/19 Allopurinol [Zyloprim] 300 mg PO DAILY 11/24/19 Budesonide [Pulmicort] 0.5 mg INHALATION DAILY 11/24/19 Gabapentin [Neurontin] 400 mg PO BID 11/24/19 Gabapentin [Neurontin] 800 mg PO HS 11/24/19 Magnesium Oxide 400 mg PO BID 11/24/19 Meloxicam [Mobic] 7.5 mg PO DAILY 11/24/19 Metoprolol Tartrate 12.5 mg PO QAM 11/24/19 Omeprazole [PriLOSEC] 40 mg PO DAILY 11/24/19 Potassium Chloride 10 meq PO DAILY 11/24/19 Torsemide [Demadex] 100 mg PO DAILY 11/24/19 Controlled Substance Measures - Controlled Substance Measures Is patient prescribed a controlled substance at discharge?: No
== END | disposition home or self-care (01) ==
LOC: PNWHC3 10:16
PROVIDERS: ATTEND Anesthesiology
DX: S32.009A Unspecified fracture of unspecified lumbar vertebra, initial encounter for closed fracture (principal); M51.36 Other intervertebral disc degeneration, lumbar region; M46.96 Unspecified inflammatory spondylopathy, lumbar region; G58.9 Mononeuropathy, unspecified; M48.061 Spinal stenosis, lumbar region without neurogenic claudication; Z79.891 Long term (current) use of opiate analgesic; Z79.899 Other long term (current) drug therapy; Z79.82 Long term (current) use of aspirin; Z79.4 Long term (current) use of insulin
CPT/HCPCS: 99211

== ENCOUNTER 2020-01-17 08:45 | Day surgery (SDC) | payer MEDICARE ==
[2020-01-13 14:39] VITALS: BMI 27.8
[2020-01-17 09:27] LABS: Glucose,Whole Blood 223 mg/dL (75-99)
[2020-01-17 09:31] VITALS: TEMP 97.2
[2020-01-17] MEDS: LACTATED RINGERS 1,000 ML IV SCH ×2 (09:34→09:36)
[2020-01-17] MEDS ORDERED: LIDOCAINE 1% (10MG/ML) FOR IV START INTRADERMA ONE (09:34)
[2020-01-17] MEDS ORDERED: LIDOCAINE 1% (PF) 10 MG/ML (30 ML SDV) ONE (09:38)
[2020-01-17] MEDS ORDERED: LIDOCAINE 4% (PF) 5 ML AMP ONE (09:38)
[2020-01-17] MEDS ORDERED: ROPIVACAINE 5MG/ML 20ML VIAL ONE (09:38)
[2020-01-17] MEDS ORDERED: MIDAZOLAM 2 MG/2 ML VIAL ONE (09:38)
[2020-01-17] MEDS ORDERED: IV FLUID CONTINUATION 1,000 ML IV ONE (10:31)
[2020-01-17 10:45] VITALS: BP 124/58; PULSE 66; RESP 16
[2020-01-17 10:50] LABS: Glucose,Whole Blood 238 mg/dL (75-99)
--- NOTE | 2020-01-17 10:50 | FL ---
Fluoroscopy History: RADIO FREQ LUMBAR PAIN SERVICES DR. RICHARDSON SUPERVISED USE OF JENNA FOR A LUMBAR RADIO FREQ LILA FL TIME OF1.39 WITHOUT PULSE/LOWDOSE
[2020-01-17] MEDS ORDERED: INSULIN ASPART (NovoLOG) 100 UNIT/ML VIAL SQ ONE (10:58)
--- NOTE | 2020-01-17 12:23 | P.PCN ---
Date of Procedure: 01/17/20 Description of Procedure: PREOPERATIVE DIAGNOSIS: Lumbar Spondylosis POSTOPERATIVE DIAGNOSIS: Same PROCEDURES: Radiofrequency ablation of the L3, L4, L5 medial branches with fluoroscopic guidance bilaterally SURGEON: Eben Diaz MD. ANESTHESIA: Lidocaine 1% 5 mL, Moderate sedation with intravenous Versed and fentanyl, sedation time 45 EBL: Minimal Fluoroscopy was used for the procedure and images were saved in the radiology portion of the chart. PROCEDURE INDICATION: The patient with low back pain secondary to lumbar facet arthropathy who had more than 50% relief of pain with previous diagnostic lumbar medial branch block X2. PROCEDURE DESCRIPTION / TECHNIQUE: The patient was seen and identified in the preoperative area. Risks, benefits, complications, including but not limited to risk of infection ,bleeding , allergic reactions to the medications and inco mplete pain relief , and alternatives were discussed with the patient, the patient agreed to proceed with the procedure and signed the consent. IV was started. The operative site was marked. Patient was taken to the OR and time out was completed. The patient was placed in the prone position on the procedure table. The lumbar area was prepped and draped in the usual sterile fashion. . Vital signs were closely monitored during the procedure .IV sedation was used during the procedure to decrease patients anxiety. Using AP and then oblique fluoroscopy, the "eye of the Juancarlos dog" corresponding to the connection between the superior and transverse articular processes of the right L4 and L5 as well as the sacral ala were identified, marked, and localized with 1% lidocaine. Subsequently, an 18 gauge 100 mm radiofrequency cannula with a 10-mm active tip was advanced guided by fluoroscopy to the identified target at each site. Needle positioning was confirmed on AP, oblique and lateral fluoroscopy. Motor testing at 2.5 Hz was done with paraspinal muscle stimulation only, and no radicular symptoms down the legs. Then 1 mL of 4% lidocaine was injected in each site. Radiofrequency thermocoagulation at 80 degrees celsius for 90 seconds was then performed. Cache were removed. The procedure was then repeated for the left side COMPLICATIONS: No acute complications. DISPOSITION / PLANS: The patient was placed in a supine position and transferred to the recovery area in a stable condition for observation and was discharged from the recovery room after meeting discharge criteria. Home discharge instructions given to the patient by the staff. The patient will follow up in clinic in 8 weeks.
== END 2020-01-17 11:10 | disposition home or self-care (01) ==
LOC: ORPAIN 08:45
PROVIDERS: ATTEND Anesthesiology
DX: M47.816 Spondylosis without myelopathy or radiculopathy, lumbar region (principal); E11.9 Type 2 diabetes mellitus without complications; Z79.82 Long term (current) use of aspirin; Z91.040 Latex allergy status; Z88.0 Allergy status to penicillin
CPT/HCPCS: 64635; 64636; J2001 ×2; J2250; J2795; 99152; 99153

== ENCOUNTER → 2020-03-12 | Outpatient (CLI) | payer MEDICARE ==
--- NOTE | 2020-03-12 14:03 | CT ---
EXAMINATION TYPE: CT chest w con DATE OF EXAM: 03/12/2020 COMPARISON: Most recent CT November 14, 2019 and older CTs HISTORY: Esophageal CA F/U CT DLP: 409.9 mGycm. Automated Exposure Control for Dose Reduction was Utilized. TECHNIQUE: CT scan of the thorax is performed following with IV Contrast, patient injected with 80 m L of Isovue 300. FINDINGS: LUNGS: Mild to moderate underlying emphysematous changes redemonstrated. Scattered pulmonary fibrotic changes greatest in the lung bases were there are some honeycombing medially adjacent to the mediast inum. New trace left-sided pleural effusion. No new suspicious pulmonary nodules or masses. No pneumo thorax bilaterally. MEDIASTINUM: There is persistent suspicious anterior-superior mediastinal lymph node adjacent to righ t trachea and esophagus measuring 1.7 x 1.0 cm corresponds to the image 11. Stable slightly elongated paraesophageal lymph node below jazmine measuring 1.1 x 1.0 cm axial image 31. No new greater than 1 cm lymph nodes. No pericardial effusion is seen. Stable cardiomegaly. Stable fairly severe three-ve ssel coronary artery calcification and/or stents. Correlate clinically. Lipomatous hypertrophy of the intra-arterial septum redemonstrated. OTHER: Subareolar gynecomastia again seen. Demineralization with multilevel spurring in the spine. Ve rtebroplasty of roughly L2 level is redemonstrated. IMPRESSION: Anterior superior mediastinal lymph node shows increasing prominence worrisome for active neoplastic recurrence. Advice PET CT follow-up
== END | disposition home or self-care (01) ==
LOC: RADCTMAIN 10:44
PROVIDERS: ATTEND Internal Medicine Hematology & Oncology
DX: C15.5 Malignant neoplasm of lower third of esophagus (principal); Z88.0 Allergy status to penicillin; Z91.040 Latex allergy status
CPT/HCPCS: 82565; 84520; 71260; 36415; Q9967

== ENCOUNTER → 2020-03-14 | Outpatient (CLI) | payer MEDICARE ==
[2020-03-14 13:21] VITALS: BP 121/72; PULSE 80; RESP 14; TEMP 97.6
--- NOTE | 2020-03-15 11:11 | P.PAINPG ---
Subjective Progress Note Date: 03/14/20 This is a follow-up visit for this patient with a history of chronic severe low back pain, is diagnosed with lumbar degenerative disc disease and lumbar spondylosis with lumbar facet arthropathy, compression fracture of the lumbar spine ,recently we have been autophagia with the medial branch lumbar area p tracie reported that his low back pain improved but his currently complaining of severe bilateral, it's constant and increases with any activity interference with the quality of life, he denies any change in the bowel movements or urination and denies any fever or night sweats and there is no motor or sensory deficit. Objective - Vital Signs Vital signs: Vital Signs Temp 97.6 F 03/14/20 13:13 Pulse 80 03/14/20 13:13 Resp 14 03/14/20 13:13 BP 121/72 03/14/20 13:13 Pulse Ox 96 03/14/20 13:13 Intake & Output 03/14/20 03/15/20 03/15/20 18:59 06:59 18:59 Weight 83.461 kg - Exam Physical Examinations : -Constitutiona : Cooperative , not in acute distress . -HEENT : nech : supple , no Lymphadenopathy , normal thyroid size . : eyes : no ptosis , no icterus, no photophobia . - neurologic : Cranial nerve II to XII intact , no focal neurological deffecit . -psychatric : alert , oriented X 3 , appropriate affect , intact judgment and insight . -Lymphatic : no Lymphadenopathy . - musculoskeltal : Lumber spine moter stegnth lower extremities ,thigh and legs 5/5 Right side , 5/5 Left side deep tendon reflexes : normal Knee Jerk , normal ankle Jerk lumber facet Loading Test =positive Right , positive Left Range of motion of the lumbar spine Flexion 30 degrees, extension 10 degrees strait leg raising test = positive at 30 degree Fabere test= positive Right , and positive LT . Sever tenderness over the Sacroiliac joint on the Right , and Left sides Gaenslen test= positive right ,and positive left . Seated flexion test= positive right ,and positive Left . Assessment and Plan Plan: Assessment and plan=1-compression fracture of lumbar spine. 2-lumbar degenerative disc disease. 3-lumbar spondylosis with lumbar facet arthropathy without myelopathy. 4-bilateral sacroiliitis. She could benefit from bilateral sacroiliac joint steroid injections under fluoroscopy guidance Time with Patient: Less than 30 PQRS Measure Charge Sheet Measure #130: Documentation of Current Meds in Medical Chart: Patient's medi cations documented in chart Measure #226: Tobacco Use: Screen & Cessation Intervention: Pt not a tobacco user Measure #111: Pneumonia Vaccination: Pneumococcal vaccine NOT administered or previously given Measure #47: Advance Care Plan: Advance care planning discussed & documented, pt chose/unable to give Measure #412: Opioid Treatment Agreement: No documentation of signed opioid treatment agreement Measure #408: Opioid Therapy Follow-up Evaluation: Patient had NO f/u eval minimum every 3 months during opioid therapy Measure #317: Preventitive Care & Scrn High Bld Press & F/U: Normal blood pressure, f/u not required Measure #128: Body Mass Index (BMI) Screening & Follow-up: BMI documented ABOVE normal parameters - f/u documented Measure #131: Pain Assessment & Follow-up: Pain positive & plan documented, Follow-up scheduled Measure #431: Unhealthy Alcohol Use Preventative Care & Scrn: Patient identified as unhealthy alcohol user; counseling given PQRS Narrative: Smoking Status Never smoker Blood Pressure 121/72 Pain Intensity [Bilateral 2 Lower Back] Scale Used Numeric (1 - 10) Hx Alcohol Use (MH) Yes Home Medications: Ambulatory Orders Cetirizine HCl 10 mg PO DAILY 07/05/15 Nitroglycerin Sl Tabs [Nitrostat] 0.4 mg SUBLINGUAL Q5M PRN 07/05/15 Pravastatin Sodium [Pravachol] 80 mg PO HS@199909/01/17 Fluticasone Nasal Raymond [Flonase Nasal Raymond] 2 spray EA NOSTRIL HS@199907/14/19 Ipratropium-Albuterol Nebulize [Duoneb 0.5 mg-3 mg/3 ml Soln] 3 ml INHALATION RT-Q4H PRN 07/29/19 Acetaminophen Tab [Tylenol] 650 mg PO Q4HR PRN tab 08/03/19 Insulin Glargine [Lantus] 24 unit SQ HS 08/17/19 Aspirin 81 mg PO DAILY chew 08/23/19 Gabapentin [Neurontin] 400 mg PO BID 11/24/19 Gabapentin [Neurontin] 800 mg PO HS 11/24/19 Magnesium Oxide 400 mg PO BID 11/24/19 Meloxicam [Mobic] 7.5 mg PO DAILY 11/24/19 Metoprolol Tartrate 12.5 mg PO QAM 11/24/19 Omeprazole [PriLOSEC] 40 mg PO BID 11/24/19 Potassium Chloride 10 meq PO BID 11/24/19 Torsemide [Demadex] 100 mg PO DAILY 11/24/19 allopurinoL [Zyloprim] 300 mg PO DAILY 11/24/19 Yupelri 1 applic INHALATION DAILY 01/13/20 Zolpidem [Ambien] 10 mg PO HS PRN 01/13/20 INSULIN ASPART (NovoLOG) [NovoLOG (formulary)] 10 unit SQ ACHS 01/17/20 Controlled Substance Measures - Controlled Substance Measures Is patient prescribed a controlled substance at discharge?: No
== END | disposition home or self-care (01) ==
LOC: PNWHC3 12:27
PROVIDERS: ATTEND Specialist
DX: G89.29 Other chronic pain (principal); M51.36 Other intervertebral disc degeneration, lumbar region; M47.816 Spondylosis without myelopathy or radiculopathy, lumbar region; S32.009A Unspecified fracture of unspecified lumbar vertebra, initial encounter for closed fracture; M46.1 Sacroiliitis, not elsewhere classified; Z79.4 Long term (current) use of insulin; Z79.82 Long term (current) use of aspirin; Z79.84 Long term (current) use of oral hypoglycemic drugs; Z79.899 Other long term (current) drug therapy
CPT/HCPCS: 99211

== ENCOUNTER 2020-04-12 09:15 | Day surgery (SDC) | payer MEDICARE ==
[2020-04-11 10:38] VITALS: BMI 28.5
[2020-04-12] MEDS ORDERED: LACTATED RINGERS 1,000 ML IV SCH (09:26)
[2020-04-12 09:38] VITALS: TEMP 96.8
[2020-04-12 09:38] LABS: Glucose,Whole Blood 124 mg/dL (75-99)
[2020-04-12] MEDS ORDERED: IOPAMIDOL M200 10 ML VIAL ONE (09:47)
[2020-04-12] MEDS ORDERED: ROPIVACAINE 5MG/ML 20ML VIAL ONE (09:47)
[2020-04-12] MEDS ORDERED: methylPREDNISolone ACETATE 40 MG/ML 1 ML VIAL ONE (09:47)
--- NOTE | 2020-04-12 10:00 | P.PCN ---
Date of Procedure: 04/12/20 Description of Procedure: Procedure: Sacroiliac joint injection bilateral Preoperative diagnosis: Sacroiliitis Postoperative diagnosis: Sacroiliitis Imaging: Fluoroscopy was used, images where saved to the medical record Complications: none Anesthesia: 1% lidocaine 5cc Description of the procedure: procedure risk and benefits discussed with the patient, including but not limited, risk of infection and bleeding, and allergic reaction to the medication and incomplete pain relief. Patient agreed and signed consent. Patient was taken to the room and placed in a prone position. Chlorhexidine was used to cleanse the skin. Under sterile conditions patient skin was anesthetized 1% lidocaine. Subcutaneous tissues were also anesthetized with a total 5 mL of 1% lidocaine. After that, a 25-gauge spinal needle was advanced through the anesthetized location under fluoroscopic guidance. Needle was advanced into the inferior portion of the sacroiliac joint. IV contrast Isovue-200 was used to confirm spread within the joint. After adequate spread was achieved, 2.5 ML's of 0.5% ropivacaine with 40 mg of depomedrol was injected into the joint (steroid split between both sides if bilateral). Patient tolerated the procedure well. Sent to the recovery room in stable condition. Patient will follow up as directed.
[2020-04-12 10:26] VITALS: BP 105/81; PULSE 58; RESP 20
--- NOTE | 2020-04-12 10:55 | FL ---
Fluoroscopy HISTORY: Pain 8 seconds fluoroscopy time supplied to the referring clinician. 2 intraoperative C-arm images docume nt the procedure. See dictated report from anesthesia.
== END 2020-04-12 10:26 | disposition home or self-care (01) ==
LOC: ORPAIN 09:15
PROVIDERS: ATTEND Hospitalist
DX: M46.1 Sacroiliitis, not elsewhere classified (principal); Z88.0 Allergy status to penicillin; Z91.040 Latex allergy status
CPT/HCPCS: J1030; Q9966; J2795; G0260

== ENCOUNTER → 2020-04-27 | Outpatient (CLI) | payer MEDICARE ==
--- NOTE | 2020-04-29 15:30 | PE ---
Nuclear medicine PET/CT HISTORY: Esophageal carcinoma, subsequent Patient received 12.5 mCi F-18 FDG intravenously in delayed scanning was performed from skull base to the mid thighs. Localization and attenuation correction CT scan was performed. Correlation to CT scan 11/14/2019, 03/12/2020, prior PET/CT 10/24/2017 Chest and neck: There is no suspicious uptake. No evident adenopathy. Extensive coronary artery calci fications are present. There is calcification at the level of the root of aorta. No evident lung mass . Some basilar changes within the lungs show stable appearance and may be related to patient's treatm ent. No evident abnormal uptake within the esophagus. ABDOMEN: There is no evident retroperitoneal adenopathy. No ascites. No evident mass within the liver . Osseous structures are stable. No suspicious uptake. IMPRESSION: No suspicious hypermetabolic uptake is evident. Posttreatment changes within the lungs.
== END | disposition home or self-care (01) ==
LOC: RADPETMAIN 11:03
PROVIDERS: ATTEND Internal Medicine Hematology & Oncology
DX: C15.5 Malignant neoplasm of lower third of esophagus (principal); Z98.890 Other specified postprocedural states
CPT/HCPCS: 78815; A9552

== ENCOUNTER → 2020-05-14 | Outpatient (CLI) | payer MEDICARE ==
[2020-05-14 10:51] VITALS: BP 131/61; PULSE 62; RESP 16; TEMP 97.4
--- NOTE | 2020-05-14 11:09 | P.PAINPG ---
Subjective Progress Note Date: 05/14/20 This is a follow-up visit for this patient with a history of chronic severe low back pain, is diagnosed with lumbar degenerative disc disease and lumbar spondylosis with lumbar facet arthropathy, compression fracture of the lumbar spine ,recently we have done RFA with the medial branch lumbar area patient reported that his low back pain improved but his currently complaining of severe bilateral, it's constant and increases with any activity interference with the quality of life, most recently we did bilateral SI joint injections. Patient says the SI joint injections recently provided almost 100% relief for only 3 days. Since then his pain has returned Pain is located at the level of the belt line with occasional radiation to the buttocks. Pain is worse with sitting and rising from a seated position and better with rest. Radiation down the lower cavities. Patient mentions that in the past he did have radiation down his anterior legs to his knees, however are recent bilateral RFA at L3-L4, L4-L5, L5-S1 to go with that pain. he denies any change in the bowel movements or urination and denies any fever or night sweats and there is no motor or sensory deficit. Objective - Exam Physical Examinations : -Constitutiona : Cooperative , not in acute distress . -HEENT : nech : supple , no Lymphadenopathy , normal thyroid size . : eyes : no ptosis , no icterus, no photophobia . - neurologic : Cranial nerve II to XII intact , no focal neurological deffecit . -psychatric : alert , oriented X 3 , appropriate affect , in tact judgment and insight . -Lymphatic : no Lymphadenopathy . - musculoskeltal : Lumber spine moter stegnth lower extremities ,thigh and legs 5/5 Right side , 5/5 Left side deep tendon reflexes : normal Knee Jerk , normal ankle Jerk lumber facet Loading Test =positive Right , positive Left Range of motion of the lumbar spine Flexion 30 degrees, extension 10 degrees strait leg raising test = positive at 30 degree Fabere test= positive Right , and positive LT . Sever tenderness over the Sacroiliac joint on the Right , and Left sides Gaenslen test= positive right ,and positive left . Seated flexion test= positive right ,and positive Left . Assessment and Plan Plan: Assessment and plan=1-compression fracture of lumbar spine. 2-lumbar degenerative disc disease. 3-lumbar spondylosis with lumbar facet arthropathy without myelopathy. 4-bilateral sacroiliitis. We'll schedule him for repeat bilateral SI joint injections. If these are successful we can consider pursuing RFA of the lateral branches at S1, S2, S3. Time with Patient: Less than 30 PQRS Measure Charge Sheet Measure #130: Documentation of Current Meds in Medical Chart: Patient's medications documented in chart Measure #226: Tobacco Use: Screen & Cessation Intervention: Pt not a tobacco user Measure #111: Pneumonia Vaccination: Pneumococcal vaccine NOT administered or previously given Measure #47: Advance Care Plan: Advance care planning discussed & documented, pt chose/unable to give Measure #412: Opioid Treatment Agreement: No documentation of signed opioid treatment agreement Measure #408: Opioid Therapy Follow-up Evaluation: Patient had NO f/u eval minimum every 3 months during opioid therapy Measure #317: Preventitive Care & Scrn High Bld Press & F/U: Normal blood pressure, f/u not required Measure #128: Body Mass Index (BMI) Screening & Follow-up: BMI documented ABOVE normal parameters - f/u documented Measure #131: Pain Assessment & Follow-up: Pain positive & plan documented, Follow-up scheduled Measure #431: Unhealthy Alcohol Use Preventative Care & Scrn: Patient identified as unhealthy alcohol user; counseling given PQRS Narrative: Smoking Status Never smoker Blood Pressure 121/72 Pain Intensity [Bilateral 2 Lower Back] Scale Used Numeric (1 - 10) Hx Alcohol Use (MH) Yes PQRS Measure Charge Sheet PQRS Narrative: Smoking Status Never smoker Pain Intensity [Lower Back] 5 Scale Used Numeric (1 - 10) Hx Alcohol Use (MH) Yes Home Medications: Ambulatory Orders Cetirizine HCl 10 mg PO DAILY 07/05/15 Nitroglycerin Sl Tabs [Nitrostat] 0.4 mg SUBLINGUAL Q5M PRN 07/05/15 Pravastatin Sodium [Pravachol] 80 mg PO HS 09/01/17 Ipratropium-Albuterol Nebulize [Duoneb 0.5 mg-3 mg/3 ml Soln] 3 ml INHALATION RT-Q4H PRN 07/29/19 Acetaminophen Tab [Tylenol] 650 mg PO Q4HR PRN tab 08/03/19 Insulin Glargine [Lantus] 24 unit SQ HS 08/17/19 Aspirin 81 mg PO DAILY chew 08/23/19 Gabapentin [Neurontin] 400 mg PO AC-BID 11/24/19 Gabapentin [Neurontin] 800 mg PO HS 11/24/19 Magnesium Oxide 400 mg PO BID 11/24/19 Meloxicam [Mobic] 7.5 mg PO DAILY 11/24/19 Metoprolol Tartrate 12.5 mg PO QAM 11/24/19 Omeprazole [PriLOSEC] 40 mg PO BID 11/24/19 Potassium Chloride 10 meq PO BID 11/24/19 Torsemide [Demadex] 100 mg PO DAILY 11/24/19 allopurinoL [Zyloprim] 300 mg PO DAILY 11/24/19 Yupelri 1 applic INHALATION DAILY 01/13/20 Zolpidem [Ambien] 10 mg PO HS PRN 01/13/20 INSULIN ASPART (NovoLOG) [NovoLOG (formulary)] 0 unit SQ ACHS PRN 01/17/20 Controlled Substance Measures - Controlled Substance Measures Is patient prescribed a controlled substance at discharge?: No
== END | disposition home or self-care (01) ==
LOC: PNWHC3 10:25
PROVIDERS: ATTEND Anesthesiology
DX: S32.009A Unspecified fracture of unspecified lumbar vertebra, initial encounter for closed fracture (principal); M47.816 Spondylosis without myelopathy or radiculopathy, lumbar region; M51.36 Other intervertebral disc degeneration, lumbar region; M46.1 Sacroiliitis, not elsewhere classified; Z79.82 Long term (current) use of aspirin; Z79.899 Other long term (current) drug therapy; Z79.891 Long term (current) use of opiate analgesic; Z79.4 Long term (current) use of insulin
CPT/HCPCS: 99211

== ENCOUNTER → 2020-05-29 | Day surgery (SDC) | payer MEDICARE ==
[2020-05-28 09:14] VITALS: BMI 28.5
[~2020-05-29] MED LIST changes: -BUDESONIDE 0.5 MG/2 ML NEBU INHALATION STA; -BUDESONIDE 1 MG/2 ML NEBU INHALATION STA; -IOPAMIDOL M200 10 ML VIAL ONE; -IPRATROPIUM-ALBUTEROL 3 ML NEB INHALATION STA; -IV FLUID CONTINUATION 1,000 ML IV ONE; +IV FLUID CONTINUATION 750 ML IV ONE; -LIDOCAINE 1% 20 ML VIAL (10MG/ML) FOR IV START INTRADERMA ONE; +ROPIVACAINE 5MG/ML 20ML VIAL ONE; +TRIAMCINOLONE ACETONIDE 40 MG/ML 1 ML VIAL ONE; -methylPREDNISolone ACETATE 40 MG/ML 1 ML VIAL ONE
[2020-05-29 10:22] VITALS: RESP 16; TEMP 97.1
[2020-05-29 10:33] LABS: Glucose,Whole Blood 227 mg/dL (75-99)
--- NOTE | 2020-05-29 10:44 | P.PCN ---
Date of Procedure: 05/29/20 Surgeon: Juanjose Matos Pathology: none sent Condition: stable Disposition: PACU Description of Procedure: Preoperative diagnoses= bilateral sacroiliac joint dysfunction and sacroiliitis Postoperative diagnoses= same as preoperative diagnosis. Procedure= bilateral sacroiliac joint steroid injection under fluoroscopic guidance. Anesthesia= local anesthesia with lidocaine 1% and IV moderate conscious sedation with fentanyl and Versed Estimated blood loss=minimal. Procedure indication= the patient had a history of severe chronic low back pain, diagnosed with sacroiliitis and lumbar sacral facet arthropathy unresponsive to conservative treatment. Procedure description= the patient was seen and identified in the preoperative holding area, risks and benefits and alternative of the procedure and possible complications discussed with the patient, patient signed the consent. an IV was started, and vital signs were monitored and were stable throughout the p rocedure, patient was placed in the prone position or table and the lumbosacral area was prepped and draped with a sterile fashion, vital signs were closely monitored during the procedure.The right sacroiliac joint was identified on the AP view of fluoroscopy then the C-arm was tilted to the contralateral oblique position to superimpose the anterior and posterior joint lines on each other and to have a unified joint line with the target point at the inferior one third of this line. I used 22-gauge 3-1/2 inch Quincke spinal needle for this procedure and after getting into the sacroiliac joint I injected 20 mg of Kenalog +2 MLS of Ropivacaine 0.5%. Patient tolerated the procedure well without any complication, the procedure was repeated in the same manner on the left side. A total of 40 mg of Kenalog was used for this procedure. The patient returned to supine position after the back was cleaned and a Band- Aid applied, the patient transported to recovery room in stable condition and he was monitored for 30 minutes before she was discharged home in stable condition . patient will follow up with the pain clinic in a few weeks. A copy of the needle placement was saved to the C-arm machine.
[2020-05-29 11:06] VITALS: BP 143/77; PULSE 76
--- NOTE | 2020-05-29 11:17 | FL ---
Fluoroscopy INDICATION: Pain FINDINGS: Fluoroscopy time: 21 seconds. Images obtained: 2. IMPRESSIONS: 1. Documentation of fluoroscopy.
== END ==
LOC: ORPAIN 09:55
PROVIDERS: ATTEND Anesthesiology
DX: G89.29 Other chronic pain (principal); M46.1 Sacroiliitis, not elsewhere classified; M53.3 Sacrococcygeal disorders, not elsewhere classified; M47.817 Spondylosis without myelopathy or radiculopathy, lumbosacral region; E11.9 Type 2 diabetes mellitus without complications; Z88.0 Allergy status to penicillin; Z91.040 Latex allergy status
CPT/HCPCS: J2250; J3301; J3010; J2795; G0260

== ENCOUNTER → 2020-07-02 | Outpatient (CLI) | payer MEDICARE ==
[2020-07-02 13:26] VITALS: BP 125/79; PULSE 64; RESP 16; TEMP 97.4
--- NOTE | 2020-07-02 14:13 | P.PAINPG ---
Subjective Progress Note Date: 07/02/20 This is a follow up visit for this 84 year old male, with a chronic history of severe low back pain, lumbar neurogenic claudication, managed with interventional pain procedures. Today, his primary pain complaint is low back pain that is worse with ambulation and improved immediately with rest. He had bilateral radio frequency ablation that helped significantly with leg pain. However patient states that with ambulation pain is severe in his low back that improved with flexing forward and/or when going to the seated position. He denies any pain in the seated position or laying on his side when he sleeps. He states that the pain is debilitating, it significantly decreases his ADLs and his normal function. He states that he is a very active individual however because of his current condition is no longer active and no longer doing chores and housework like he usually does. Pain is rated a 0-10/10 in the seated position, averaging 7/10 with activity. Pain is worse with walking, when he wakes up in the morning. Pain is better with medications, sitting, procedures. He is using a walker/cane to ambulate. Medications for pain include gabapentin, meloxicam, Tylenol. He reports no side effects from these medications, they're helping control his pain Past medical, surgical, social history reviewed and unchanged from previous visit. Review of systems is negative for chest pain, new onset weakness, numbness/tingling, abdominal pain, malaise, fever, night sweats, chills, homicidal or suicidal ideation, or bowel or bladder incontinence. OF note, he does have a chronic cough since his admission in August 2019. Physical exam: Vitals: Reviewed in EMR GENERAL: In no acute distress, patient seated in wheelchair today PSYCH: Mood and affect is appropriate. Awake, alert, and oriented SKIN: Skin color, texture, turgor normal, no rashes or lesions HEENT: Normocephalic, atraumatic. EOM intact CV: No pedal edema RESP: Patient is coughing, no audible wheezing GI: Abdomen non-distended MUSCULOSKELETAL: Bilateral lower extremity strength is normal and symmetric. No atrophy or tone abnormalities are noted. Lumbar spine: Tenderness to palpation along the lumbar spinous processes and bilateral paraspinal musculature. Limited lumbar extension. Bilateral facet loading positive. Pain with ambulation relieved with sitting Extremities: Peripheral joint ROM is full and pain free without obvious instability or laxity in all four extremities. No edema or skin discolorations noted. NEUR: No loss of sensation is noted. MRI of the lumbar spine done at [facility] 07/15/2018 compression fracture L2-L3 and L4 and T12, multilevel lumbar bulging disc disease at L3 4 and L4 5, and multilevel lumbar facet arthropathy L2-3, L3-4 and L4-5 and L5-S1. Moderate to severe spinal canal stenosis at L3-4 with moderate bilateral neuroforaminal narrowing. At L4-5 mild to moderate spinal canal stenosis with mild to moderate left and moderate right neuroforaminal narrowing. Assessment and plan= chronic severe low back pain secondary to multifactorial causes 1-compression fracture of the lumbar spine. Lumbar spinal stenosis at L3-L4 and L4-5 3-lumbar spondylosis with lumbar facet arthropathy. 4-Bilateral cluneal nerve entrapment/neuropathy. 5- lumbar spinal canal stenosis Patient improved significantly after radiofrequency ablation of the median branch lumbar area and cluneal nerve area as well as LESI. We'll schedule bilateral transforaminal steroid injections at L4-L5. Risks and benefits discussed with patient. Medications: Managed by PCP Objective - Vital Signs Vital signs: Vital Signs Temp 97.4 F L 07/02/20 13:23 Pulse 64 07/02/20 13:23 Resp 16 07/02/20 13:23 BP 125/79 07/02/20 13:23 Pulse Ox 92 L 07/02/20 13:23 PQRS Measure Charge Sheet PQRS Narrative: Smoking Status Never smoker Blood Pressure 125/79 Pain Intensity [Back] 5 Scale Used Numeric (1 - 10) Hx Alcohol Use (MH) Yes: OCCAS Home Medications: Ambulatory Orders Cetirizine HCl 10 mg PO DAILY 07/05/15 Nitroglycerin Sl Tabs [Nitrostat] 0.4 mg SUBLINGUAL Q5M PRN 07/05/15 Pravastatin Sodium [Pravachol] 80 mg PO HS 09/01/17 Ipratropium-Albuterol Nebulize [Duoneb 0.5 mg-3 mg/3 ml Soln] 3 ml INHALATION RT-Q4H PRN 07/29/19 Acetaminophen Tab [Tylenol] 650 mg PO Q4HR PRN tab 08/03/19 Insulin Glargine [Lantus] 30 unit SQ HS 08/17/19 Aspirin 81 mg PO DAILY chew 08/23/19 Gabapentin [Neurontin] 400 mg PO AC-BID 11/24/19 Gabapentin [Neurontin] 800 mg PO HS 11/24/19 Magnesium Oxide 400 mg PO BID 11/24/19 Meloxicam [Mobic] 7.5 mg PO DAILY 11/24/19 Metoprolol Tartrate 12.5 mg PO QAM 11/24/19 Omeprazole [PriLOSEC] 40 mg PO BID 11/24/19 Potassium Chloride 10 meq PO BID 11/24/19 Torsemide [Demadex] 100 mg PO DAILY 11/24/19 allopurinoL [Zyloprim] 300 mg PO DAILY 11/24/19 Yupelri 1 applic INHALATION DAILY 01/13/20 Zolpidem [Ambien] 10 mg PO HS PRN 01/13/20 Insulin Lispro [humaLOG Kwikpen] 0 unit SQ QID PRN 06/28/20 Controlled Substance Measures - Controlled Substance Measures Is patient prescribed a controlled substance at discharge?: No
== END | disposition home or self-care (01) ==
LOC: PNWHC3 13:11
PROVIDERS: ATTEND Anesthesiology
DX: M48.061 Spinal stenosis, lumbar region without neurogenic claudication (principal); M47.816 Spondylosis without myelopathy or radiculopathy, lumbar region; S32.009A Unspecified fracture of unspecified lumbar vertebra, initial encounter for closed fracture; G58.8 Other specified mononeuropathies; Z79.891 Long term (current) use of opiate analgesic; Z79.82 Long term (current) use of aspirin; Z79.4 Long term (current) use of insulin; Z79.899 Other long term (current) drug therapy
CPT/HCPCS: 99211

== ENCOUNTER 2020-07-17 09:23 | Day surgery (SDC) | payer MEDICARE ==
[2020-07-16 09:36] VITALS: BMI 27.4
[2020-07-17] MEDS ORDERED: LACTATED RINGERS 1,000 ML IV ONE (09:54)
[2020-07-17 09:55] LABS: Glucose,Whole Blood 145 mg/dL (75-99)
[2020-07-17] MEDS ORDERED: MIDAZOLAM 2 MG/2 ML VIAL ONE (10:06)
[2020-07-17] MEDS ORDERED: IOPAMIDOL M200 10 ML VIAL ONE (10:06)
[2020-07-17] MEDS ORDERED: DEXAMETHASONE SOD PHOSPHATE 10 MG/ML 1 ML VIAL ONE (10:06)
[2020-07-17] MEDS ORDERED: LIDOCAINE 1% INJ 10MG/ML (20 ML MDV) ONE (10:06)
[2020-07-17] MEDS ORDERED: fentaNYL (PF) 50 MCG/ML 2 ML AMP ONE (10:06)
--- NOTE | 2020-07-17 10:24 | P.PCN ---
Date of Procedure: 07/17/20 Description of Procedure: PREOPERATIVE DIAGNOSIS: Lumbar radiculopathy POSTOPERATIVE DIAGNOSIS: Lumbar radiculopathy Attending physician: Eben Diaz M.D. PROCEDURE 1. Transforaminal epidural steroid injection under fluoroscopic guidance bilateral L4-L5 2. Lumbar epidurogram ANESTHESIA: Local with 1% lidocaine 3 ml ; IV sedation with Versed and fentanyl , sedation time 15 min PROCEDURE INDICATION: The patient with low back pain and radiculopathy symptoms unresponsive to conservative treatment. Fluoroscopy was used for the procedure and fluoroscopic images were saved to the radiology portion of patient's chart. PROCEDURE DESCRIPTION / TECHNIQUE: The patient was seen and identified in the preoperative area. Risks, benefits, complications, and alternatives were discussed with the patient. The patient agreed to proceed with the procedure and signed the consent. IV was started, and vital signs were stable. Patient was taken to the OR and time out was completed. The patient was placed in the prone position on procedure table and a pillow was placed under the abdomen to reduce lumbar lordosis. The lumbosacral area was prepped and draped in the usual sterile fashion. Vital signs were closely monitored during the procedure. Conscious sedation was used. Using oblique fluoroscopy, the chin of the ``Juancarlos dog and the skin and deeper tissues just below was localized with 1% lidocaine. Subsequently, a 22- gauge 3.5-inch spinal needle was advanced under a tunneled view fluoroscopic guidance just underneath the chin of the ``Juancarlos dog . Under lateral fluoroscopy, the needle was then advanced to the posterior border of the foramen. After negative aspiration of CSF and blood and with no paresthesias, 1 mL of Isovue-200 contrast dye was injected under live fluoroscopy and there was no evidence of intravascular injection. The injectate solution consisting of 5 mg of dexamethasone with 1.5 mL of 1% lidocaine was then delivered. The needle was withdrawn intact. Procedure was repeated on the other side. At the end of the procedure, skin was cleansed, and bandages were applied. COMPLICATIONS: None. Note patient has multiple level kyphoplasty his L3, L4, L5 which obscures some of the landmarks. COMMENTS: DISPOSITION / PLANS: The patient was placed in a supine position and transferred to the recovery area in a stable condition for observation. There was no evidence of lower extremity motor or sensory deficit after the procedure. Patient was discharged from the recovery room after meeting discharge criteria. Home discharge instructions were given to the patient by the staff. The patient will follow up in clinic in 2-4 weeks.
[2020-07-17] MEDS ORDERED: IV FLUID CONTINUATION 700 ML IV ONE (10:30)
--- NOTE | 2020-07-17 10:38 | FL ---
EXAMINATION TYPE: FL guided pain mgmt statistic DATE OF EXAM: 07/17/2020 HISTORY: Pain 44sec fluoro time,3 images scanned
[2020-07-17 10:39] VITALS: RESP 20
[2020-07-17 11:15] VITALS: BP 144/80; PULSE 69
== END 2020-07-17 11:00 | disposition home or self-care (01) ==
LOC: ORPAIN 09:23
PROVIDERS: ATTEND Anesthesiology
DX: M54.16 Radiculopathy, lumbar region (principal); Z88.0 Allergy status to penicillin; Z91.040 Latex allergy status
CPT/HCPCS: 64483; J2250; J1100; J2001; J3010; Q9966; 99152

== ENCOUNTER → 2020-08-01 | Outpatient (CLI) | payer MEDICARE ==
[2020-08-01 09:31] VITALS: BP 100/50; PULSE 72; RESP 18; TEMP 98
--- NOTE | 2020-08-01 09:56 | P.PN ---
Subjective Progress Note Date: 08/01/20 This is a follow-up visit for this patient with a history of chronic severe low back pain,he is diagnosed with lumbar degenerative disc disease and lumbar spondylosis with lumbar facet arthropathy, lumbar spinal stenosis, compression fracture of the lumbar spine , last year we have done RFA of the medial branch lumbar area which helped his low back pain significantly, currently is complaining of severe low back pain, her pain is, constant and increases with any activity interference with the quality of life, he denies any change in the bowel movements or urination and denies any fever or night sweats and there is no motor or sensory deficit. Physical Examinations : -Constitutiona : Cooperative , not in acute distress . -HEENT : nech : supple , no Lymphadenopathy , normal thyroid size . : eyes : no ptosis , no icterus, no photophobia . - neurologic : Cranial nerve II to XII intact , no focal neurological deffecit . -psychatric : alert , oriented X 3 , appropriate affect , intact judgment and insight . -Lymphatic : no Lymphadenopathy . - musculoskeltal : Lumber spine moter stegnth lower extremities ,thigh and legs 5/5 Right side , 5/5 Left side deep tendon reflexes : normal Knee Jerk , normal ankle Jerk lumber facet Loading Test =positive Right , positive Left Range of motion of the lumbar spine Flexion 30 degrees, extension 10 degrees strait leg raising test = negative bilaterally Fabere test= negative bilaterally mild tenderness over the Sacroiliac joint on the Right , and Left sides Assessment and plan=1-compression fracture of lumbar spine. 2-lumbar degenerative disc disease. 3-lumbar spondylosis with lumbar facet arthropathy without myelopathy. 4-lumbar spinal stenosis He could benefit from RFA of the medial branch lumbar area at L3, L4, L5, bilaterally (for L4 5 and L5-S1 facet joint ) Time with Patient: Less than 30 PQRS Measure Charge Sheet Measure #130: Documentation of Current Meds in Medical Chart: Patient's medications documented in chart Measure #226: Tobacco Use: Screen & Cessation Intervention: Pt not a tobacco user Measure #111: Pneumonia Vaccination: Pneumococcal vaccine NOT administered or previously given Measure #47: Advance Care Plan: Advance care planning discussed & documented, pt chose/unable to give Measure #412: Opioid Treatment Agreement: No documentation of signed opioid treatment agreement Measure #408: Opioid Therapy Follow-up Evaluation: Patient had NO f/u eval minimum every 3 months during opioid therapy Measure #317: Preventitive Care & Scrn High Bld Press & F/U: Normal blood pressure, f/u not required Measure #128: Body Mass Index (BMI) Screening & Follow-up: BMI documented ABOVE normal parameters - f/u documented Measure #131: Pain Assessment & Follow-up: Pain positive & plan documented, Follow-up scheduled Measure #431: Unhealthy Alcohol Use Preventative Care & Scrn: Patient identified as unhealthy alcohol user; counseling given PQRS Narrative: Objective - Vital Signs Vital signs: Vital Signs Temp 98.0 F 08/01/20 09:26 Pulse 72 08/01/20 09:26 Resp 18 08/01/20 09:26 BP 100/50 08/01/20 09:26 Pulse Ox 95 08/01/20 09:26
== END | disposition home or self-care (01) ==
LOC: PNWHC3 09:13
PROVIDERS: ATTEND Specialist
DX: S32.009A Unspecified fracture of unspecified lumbar vertebra, initial encounter for closed fracture (principal); M48.061 Spinal stenosis, lumbar region without neurogenic claudication; M51.36 Other intervertebral disc degeneration, lumbar region; M47.816 Spondylosis without myelopathy or radiculopathy, lumbar region
CPT/HCPCS: 99211

== ENCOUNTER 2020-08-14 09:21 | Day surgery (SDC) | payer MEDICARE ==
[2020-08-13 09:05] VITALS: BMI 28.2
[2020-08-14] MEDS ORDERED: fentaNYL (PF) 50 MCG/ML 2 ML AMP ONE (09:26)
[2020-08-14] MEDS ORDERED: SODIUM CHLORIDE 0.9% 500 ML 500 ML IV ONE (09:34)
[2020-08-14 09:48] VITALS: RESP 16; TEMP 96.9
[2020-08-14] MEDS: BENZOCAINE SPRAY 1 CAN MUCOUS MEM ONE ×2 (09:49→09:57)
[2020-08-14 09:50] LABS: Glucose,Whole Blood 219 mg/dL (75-99)
[2020-08-14] MEDS ORDERED: INSULIN ASPART (NovoLOG) 100 UNIT/ML VIAL SQ ONE (09:52)
[2020-08-14] MEDS: fentaNYL (PF) 50 MCG/ML 2 ML AMP IV ONE ×2 (10:05→10:07)
[2020-08-14] MEDS ORDERED: fentaNYL (PF) 50 MCG/ML 2 ML AMP IV ONE (10:05)
[2020-08-14] MEDS: MIDAZOLAM 2 MG/2 ML VIAL IV ONE ×2 (10:05→10:06)
[2020-08-14] MEDS ORDERED: SODIUM CHLORIDE 0.9% 1,000 ML IV SCH (10:30)
--- NOTE | 2020-08-14 10:31 | P.TEE ---
Date of Procedure: 08/14/20 Preoperative Diagnosis: Moderate to severe aortic stenosis Postoperative Diagnosis: Moderate aortic stenosis. Appears to be bicuspid Procedure(s) Performed: FATOUMATA examination Description of Procedure(s): INDICATION: This is a 85-year-old gentleman with history of his of a cancer, hypertension, hypercholesteremia, and carotid disease who was sent to our office for preop evaluation and clearance. Patient's recent echo Cardigan showed moderate to severe aortic stenosis. Patient is advised to have FATOUMATA examination for further evaluation. Patient may also require evaluation to rule out underlying ischemic heart disease CONSENT: verbal informed consent was obtained from the patient PROCEDURE: Patient was brought to the lab in a fasting state. He was prepped and draped in the usual fashion. The throat was sprayed with Hurricaine. Patient was given IV sedation with 1 of milligrams of Versed and 37.5 g of fentanyl. A lubricated Omni probe was introduced in the oropharynx and was advanced into the esophagus. Patient has history of previous esophageal cancer and had radiation chemotherapy. No tremors were made to advance the catheter into the distal esophagus or stomach. Views were obtained only from midesoph davon. Patient tolerated the procedure well. Color and pulse wave Doppler studies were obtained. Saline contrast bubble injection is performed. Patient tolerated the procedure well. No immediate complications FINDINGS: . The aortic valve is heavily calcified with limited opening excursion. Appears to be bicuspid. Difficult to trace the opening but appears to be in the range of 1.6 cm. There is mild aortic regurgitation. The mitral valve showed mild central regurgitation. Sore mild regurgitation. The left atrial appendage not show any clot. The left ventricular function appeared well preserved. The interatrial septum appeared to be intact. There is no spontaneous shunt. A peak gradient of 52 and the mean of 31 was applied across the aortic valve IMPRESSION: #1. Limited study because of previous history of esophageal cancer #2. Moderate aortic stenosis by planimetry and also gradient studies #3. Possible bicuspid valve. #4. Mild aortic and mitral regurgitation. #5. Preserved LV function PLAN: . Continue current medical therapy. Further evaluation to rule out underlying ischemic heart disease. Will discuss with Dr. Garcia
[2020-08-14 10:34] VITALS: PULSE 67
[2020-08-14 11:10] VITALS: BP 112/57
== END 2020-08-14 11:35 | disposition home or self-care (01) ==
LOC: CATHCVL 09:21
PROVIDERS: ATTEND Internal Medicine Cardiovascular Disease
DX: I08.0 Rheumatic disorders of both mitral and aortic valves (principal); I70.0 Atherosclerosis of aorta; I11.0 Hypertensive heart disease with heart failure; I50.32 Chronic diastolic (congestive) heart failure; E78.5 Hyperlipidemia, unspecified; E78.00 Pure hypercholesterolemia, unspecified; E13.51 Other specified diabetes mellitus with diabetic peripheral angiopathy without gangrene; I65.23 Occlusion and stenosis of bilateral carotid arteries; Z82.49 Family history of ischemic heart disease and other diseases of the circulatory system; C15.9 Malignant neoplasm of esophagus, unspecified; Z88.0 Allergy status to penicillin; Z91.040 Latex allergy status
CPT/HCPCS: 93312; 93320; 93325; J2250; J3010

== ENCOUNTER 2020-08-24 09:23 | Day surgery (SDC) | payer MEDICARE ==
[2020-08-23 11:12] VITALS: BMI 29.5
[~2020-08-24 09:23] MED LIST changes: -IV FLUID CONTINUATION 750 ML IV ONE; -MIDAZOLAM 2 MG/2 ML VIAL ONE; -ROPIVACAINE 5MG/ML 20ML VIAL ONE; -TRIAMCINOLONE ACETONIDE 40 MG/ML 1 ML VIAL ONE; -fentaNYL (PF) 50 MCG/ML 2 ML AMP ONE
[2020-08-24 09:52] VITALS: RESP 16; TEMP 96.9
[2020-08-24 09:54] LABS: Glucose,Whole Blood 174 mg/dL (75-99)
[2020-08-24] MEDS ORDERED: LIDOCAINE 1% (10MG/ML) FOR IV START INTRADERMA ONE (09:54)
[2020-08-24] MEDS ORDERED: ROPIVACAINE 5MG/ML 20ML VIAL ONE (10:03)
[2020-08-24] MEDS ORDERED: methylPREDNISolone ACETATE 40 MG/ML 1 ML VIAL ONE (10:03)
[2020-08-24] MEDS ORDERED: fentaNYL (PF) 50 MCG/ML 2 ML AMP ONE (10:03)
[2020-08-24] MEDS ORDERED: MIDAZOLAM 2 MG/2 ML VIAL ONE (10:03)
--- NOTE | 2020-08-24 10:40 | P.PCN ---
Date of Procedure: 08/24/20 Procedure(s) Performed: PREOPERATIVE DIAGNOSIS: 1-Lumbar Spondylosis with Facet Arthropathy without myelopathy. 2- Lumber degenerative disc disease. POSTOPERATIVE DIAGNOSIS: 1- Lumbar Spondylosis with Facet Arthropathy without myelopathy. 2- Lumber degenerative disc disease. PROCEDURES : Bilateral Radiofrequency thermocoagulation, L3 , L4 , and L5 medial branch, with fluoroscopic guidance (fluoroscopy images available in the radiology department) ( to denervate the facet joint at bilateral L4-5 ,and L5-S1 levels ). ANESTHESIA: Monitored anesthesia care as per anesthesia department. EBL: Minimal PROCEDURE INDICATION: The patient with low back pain secondary to lumbar facet arthropathy who had more than 50% relief of her pain with previous diagnostic lumbar medial branch block with bupivacaine. PROCEDURE DESCRIPTION / TECHNIQUE: The patient was seen and identified in the preoperative area. Risks, benefits, complications, including but not limited to risk of infection ,bleeding , allergic reactions to the medications and no complete pain releife , and alternatives were discussed with the patient, the patient agreed to proceed with the procedure and signed the consent. IV was started. Vital signs remained stable throughout the procedure. Patient was taken to the OR and time out was completed. The patient was placed in the prone position on the procedure table. The lumber area was prepped and draped in the usual sterile fashion. . Vital signs were closely monitored during the procedure .IV sedation was used during the procedure to decrease patients anxiety. Using AP and then oblique fluoroscopy, the ``eye of the Juancarlos dog cor responding to the connection between the superior and transverse articular processes of right L3, L4, and L5 were identified, marked, and localized with 1% lidocaine. Subsequently, a 18 -qj (VENOM ) radiofrequency cannula with a 10-mm active tip was advanced guided by fluoroscopy to each of the``eyes of the Juancarlos dog at right L3, L4, and L5. Each site then underwent sensory testing at 50 Hz and 0 to 1 volt and motor testing at 2.5 Hz and 0 to 3 volt with local stimulation, but no radicular symptoms down the legs. Thereafter each sites underwent radiofrequency thermocoagulation at 80 degrees celsius for 90 seconds after injecting 0.5 ml of PF Ropivacaine 1ml, then after the thermocoagulation done , 1 ml of the block solution containing Depo-Medrol 20 mg and 3 ml of Ropivacaine 0.5% was injected at the right L3 , L4 , and L5 , levels after negative aspiration of CSF and blood and with no paresthesias. Cannulas were retracted while injecting lidocaine 1% until the needle is out. The same procedure was repeated at the level of Left L3, L4, and L5 levels. At the end of the procedure, the skin was cleansed and bandages were applied. COMPLICATIONS: No acute complications. DISPOSITION / PLANS: The patient was placed in a supine position and transferred to the recovery area in a stable condition for observation and was discharged from the recovery room after meeting discharge criteria. Home discharge instructions given to the patient by the staff. The patient was reexamined prior to discharge. The patient will schedule a follow up in the clinic in 2-4 weeks.
[2020-08-24] MEDS ORDERED: IV FLUID CONTINUATION 1,000 ML IV ONE (10:42)
[2020-08-24 11:01] VITALS: BP 108/65; PULSE 75
--- NOTE | 2020-08-24 11:28 | FL ---
Fluoroscopy HISTORY: Pain 48 seconds fluoroscopy time supplied to the referring clinician. 6 intraoperative C-arm images docum ent the procedure. See dictated report from anesthesia.
== END 2020-08-24 11:14 | disposition home or self-care (01) ==
LOC: ORPAIN 09:23
PROVIDERS: ATTEND Specialist
DX: M47.816 Spondylosis without myelopathy or radiculopathy, lumbar region (principal); M51.36 Other intervertebral disc degeneration, lumbar region; E11.9 Type 2 diabetes mellitus without complications; I25.10 Atherosclerotic heart disease of native coronary artery without angina pectoris; I11.0 Hypertensive heart disease with heart failure; I50.9 Heart failure, unspecified; I65.29 Occlusion and stenosis of unspecified carotid artery; J44.9 Chronic obstructive pulmonary disease, unspecified; M19.90 Unspecified osteoarthritis, unspecified site; Z98.890 Other specified postprocedural states; Z91.040 Latex allergy status; Z88.0 Allergy status to penicillin; Z97.2 Presence of dental prosthetic device (complete) (partial); Z85.01 Personal history of malignant neoplasm of esophagus; Z92.3 Personal history of irradiation; Z92.21 Personal history of antineoplastic chemotherapy; Z79.899 Other long term (current) drug therapy
CPT/HCPCS: 64635; 64636; J2250; J1030; J3010; J2795

== ENCOUNTER → 2020-09-17 | Outpatient (CLI) | payer MEDICARE ==
[2020-09-17 13:47] VITALS: BP 136/80; PULSE 64; RESP 16; TEMP 98.3
--- NOTE | 2020-09-17 14:04 | P.PN ---
Subjective Progress Note Date: 09/17/20 This is a follow-up visit for this patient with a history of chronic severe low back pain,he is diagnosed with lumbar degenerative disc disease ,and lumbar spondylosis with lumbar facet arthropathy, compression fracture of the lumbar spine ,recently we have done RFA medial branch lumbar area, currently complaining of severe low back pain, it's constant and increases with any activity interference with the quality of life, he denies any change in the bowel movements or urination and denies any fever or night sweats and there is no motor or sensory deficit. Physical Examinations : -Constitutiona : Cooperative , not in acute distress . -HEENT : nech : supple , no Lymphadenopathy , normal thyroid size . : eyes : no ptosis , no icterus, no photophobia . - neurologic : Cranial nerve II to XII intact , no focal neurological deffecit . -psychatric : alert , oriented X 3 , appropriate affect , intact judgment and insight . -Lymphatic : no Lymphadenopathy . - musculoskeltal : Lumber spine moter stegnth lower extremities ,thigh and legs 5/5 Right side , 5/5 Left side deep tendon reflexes : normal Knee Jerk , normal ankle Jerk lumber facet Loading Test =positive Right , positive Left Range of motion of the lumbar spine Flexion 30 degrees, extension 10 degrees strait leg raising test = positive at 30 degree Fabere test= positive Right , and positive LT . Sever tenderness over the Sacroiliac joint on the Right , and Left sides Gaenslen test= positive right ,and positive left . Seated flexion test= positive right ,and positive Left . Assessment and plan=1-compression fracture of lumbar spine. 2-lumbar degenerative disc disease. 3-lumbar spondylosis with lumbar facet arthropathy without myelopathy. 4-bilateral sacroiliitis. he could benefit from lumbar epidural steroid injections at L4-L5 or 4 L5-S1 under fluoroscopy guidance Time with Patient: Less than 30 PQRS Measure Charge Sheet Measure #130: Documentation of Current Meds in Medical Chart: Patient's medications documented in chart Measure #226: Tobacco Use: Screen & Cessation Intervention: Pt not a tobacco user Measure #111: Pneumonia Vaccination: Pneumococcal vaccine NOT administered or previously given Measure #47: Advance Care Plan: Advance care planning discussed & documented, pt chose/unable to give Measure #412: Opioid Treatment Agreement: No documentation of signed opioid treatment agreement Measure #408: Opioid Therapy Follow-up Evaluation: Patient had NO f/u eval minimum every 3 months during opioid therapy Measure #317: Preventitive Care & Scrn High Bld Press & F/U: Normal blood pressure, f/u not required Measure #128: Body Mass Index (BMI) Screening & Follow-up: BMI documented ABOVE normal parameters - f/u documented Measure #131: Pain Assessment & Follow-up: Pain positive & plan documented, Follow-up scheduled Measure #431: Unhealthy Alcohol Use Preventative Care & Scrn: Patient identified as unhealthy alcohol user; counseling given PQRS Narrative: Objective - Vital Signs Vital signs: Vital Signs Temp 98.3 F 09/17/20 13:45 Pulse 64 09/17/20 13:45 Resp 16 09/17/20 13:45 BP 136/80 09/17/20 13:45 Pulse Ox 92 L 09/17/20 13:45
== END ==
LOC: PNWHC3 13:28
PROVIDERS: ATTEND Specialist
DX: M47.816 Spondylosis without myelopathy or radiculopathy, lumbar region (principal); M51.36 Other intervertebral disc degeneration, lumbar region; M46.1 Sacroiliitis, not elsewhere classified; M48.56XA Collapsed vertebra, not elsewhere classified, lumbar region, initial encounter for fracture
CPT/HCPCS: 99211

== ENCOUNTER 2020-10-02 13:22 | Day surgery (SDC) | payer MEDICARE ==
[2020-09-27 13:20] VITALS: BMI 28.2
[2020-10-02 13:38] VITALS: TEMP 97.5
[2020-10-02] MEDS ORDERED: INSULIN ASPART (NovoLOG) 100 UNIT/ML VIAL SQ ONE (13:43)
[2020-10-02] MEDS ORDERED: methylPREDNISolone ACETATE 40 MG/ML 1 ML VIAL ONE (13:44)
[2020-10-02] MEDS ORDERED: IOPAMIDOL M200 10 ML VIAL ONE (13:44)
[2020-10-02] MEDS ORDERED: fentaNYL (PF) 50 MCG/ML 2 ML AMP ONE (13:44)
[2020-10-02] MEDS ORDERED: MIDAZOLAM 2 MG/2 ML VIAL ONE (13:44)
--- NOTE | 2020-10-02 14:00 | P.PCN ---
Date of Procedure: 10/02/20 Procedure(s) Performed: PREOPERATIVE DIAGNOSIS: 1- Lumbar Degenerative Disc Diseases 2-Lumbar spondylosis with Facet arthropathy without myelopathy 3-compression fracture lumbar spine POSTOPERATIVE DIAGNOSIS: Same as preop diagnosis. PROCEDURE 1. Lumbar epidural steroid injection under fluoroscopic guidance at the L5-S1 level. (Fluoroscopy imaging was available in radiology department) 2. Lumbar epidurogram. ANESTHESIA: Local with 1% lidocaine 3 ml and , moderate sedation with intravenous Versed 1 mg ,and fentanyle 50 Mcg EBL: Minimal PROCEDURE INDICATION: The patient with low back pain and radiculitis symptoms unresponsive to conservative treatment. Fluoroscopy was used to optimize visualization of the needle placement and to maximize safety. PROCEDURE DESCRIPTION / TECHNIQUE: The patient was seen and identified in the preoperative area. Risks, benefits, complications including but not limited to infections ,bleeding ,allergic reaction to the medications ,nerve damage and not complete pain releife , and alternatives were discussed with the patient. The patient agreed to proceed with the procedure and signed the consent. IV was started, and vital signs were stable. Patient was taken to the OR and time out was completed. The patient was placed in the prone position on procedure table and a pillow was placed under the abdomen to reduce lumbar lordosis. The lumbosacral area was prepped and draped in the usual sterile fashion.ere closely monitored during the procedure. Conscious sedation was used during the procedure to decrease patients anxiety. Vital signs was monitered during the entire procedure. Using anterior-posterior fluoroscopy, the L5-S1 interlaminar space was identified and the skin over this site was marked and then infiltrated with 1% lidocaine subcutaneously. Subsequently, a 20-gauge Tuohy epidural needle was ins erted and advanced toward the epidural space using the ``Loss of resistance technique and guided by AP and lateral fluoroscopy. The correct needle position in the epidural space was verified with the injection of 2 mL of the water soluble contrast dye Isovue 200 contrast and observing an excellent epidurogram with the epidural spread of the dye, after negative aspiration for blood and CSF and in the absence of paresthesias. Again after negative aspiration, a 6 ml mixture containing 40 mg of Depo-medrol , and 2 ml of preservative free Normal Saline, and 2 ml of preservative free lidocaine 1% solution was injected and a washout of epidurogram was seen. Needle was withdrawn intact, skin was cleansed, and bandages were applied. COMPLICATIONS: None DISPOSITION / PLANS: The patient was placed in a supine position and transferred to the recovery area in a stable condition for observation. There was no evidence of lower extremity motor or sensory deficit after the procedure. Patient was discharged from the recovery room after meeting discharge criteria. Home discharge instructions were given to the patient by the staff. The patient was reexamined prior to discharge. The patient will schedule a follow up in the clinic in 2-4 weeks.
[2020-10-02] MEDS ORDERED: IV FLUID CONTINUATION 900 ML IV ONE (14:05)
[2020-10-02 14:08] VITALS: RESP 20
[2020-10-02 14:13] LABS: Glucose,Whole Blood 250 mg/dL (75-99)
[2020-10-02 14:49] VITALS: BP 129/79; PULSE 81
--- NOTE | 2020-10-02 15:40 | FL ---
EXAMINATION TYPE: FL guided pain mgmt statistic DATE OF EXAM: 10/02/2020 CLINICAL HISTORY: Low back pain. TECHNIQUE: Fluoroscopy. COMPARISON: None. FINDINGS: Fluoroscopic guidance was provided during pain relief procedure performed by Dr. Cottrell . A total of 3 seconds of fluoroscopic time was utilized during the procedure and two spot images ar e acquired. Images acquired shows needle localization in the lower lumbar spine. Multilevel vertebro plasty is partially imaged. IMPRESSION: As Above.
== END 2020-10-02 14:34 | disposition home or self-care (01) ==
LOC: ORPAIN 13:22
PROVIDERS: ATTEND Specialist
DX: M51.36 Other intervertebral disc degeneration, lumbar region (principal); M47.816 Spondylosis without myelopathy or radiculopathy, lumbar region; M48.56XA Collapsed vertebra, not elsewhere classified, lumbar region, initial encounter for fracture
CPT/HCPCS: 62323; J2250; J1030; J3010; Q9966; 99152

== ENCOUNTER → 2020-10-05 | Outpatient (CLI) | payer MEDICARE ==
--- NOTE | 2020-10-05 11:05 | CT ---
EXAMINATION TYPE: CT angio head neck DATE OF EXAM: 10/05/2020 COMPARISON: None HISTORY: carotid stenosis CT DLP: 346 mGycm CONTRAST: Performed with IV Contrast, patient injected with 65 mL of Isovue 370. Combination Contrast CTA cervical carotids and [place] CTA cervical carotids with 3-D recons truction Contrast CTA of the cervical carotids was performed 3-D reconstruction imaging obtained at a separate workstation. Right carotid system: Mild plaque is seen of the right common carotid artery. There is moderate to s evere calcified plaque also noted at the carotid bulb and proximal ICA. Stenosis is greater than 90% . ECA is patent. Right vertebral artery appears unremarkable. Left carotid system: Mild plaque is seen of the left common carotid artery. There is severe calcifie d plaque also noted at the carotid bulb and proximal ICA. There is occlusion of the left ICA just dis chavez to its takeoff. IMPRESSION: 1. Occlusion just distal to the take off of the left ICA. 2. High-grade stenosis right ICA estimated at greater than 90%. CTA [place] with 3-D reconstruction Contrast CTA of the [place] of [place] was performed 3-D reconstruction imaging obtained at a separate workstation. Vertebrobasilar system as well as intracranial portions of the internal carotid arteries and their ma markel tributaries are patent. I do not see evidence for sizable aneurysm or vascular malformation. Pl ease note MRI provides greater sensitivity and specificity. Visualized brain appears grossly unremar kable. IMPRESSION: 1. Limited examination given extensive bone contamination over no sizable aneurysm is visualized.
== END | disposition home or self-care (01) ==
LOC: RADCTMAIN 06:50
PROVIDERS: ATTEND Surgery Vascular Surgery
DX: I65.23 Occlusion and stenosis of bilateral carotid arteries (principal)
CPT/HCPCS: 70496; 70498; 96360; 96361; Q9967

== ENCOUNTER 2020-10-18 11:57 | Day surgery (SDC) | payer MEDICARE ==
[2020-10-15 17:23] VITALS: BMI 28.0
[2020-10-18 12:27] VITALS: TEMP 97.2
[2020-10-18 12:36] LABS: Glucose,Whole Blood 127 mg/dL (75-99)
[2020-10-18] MEDS ORDERED: IOPAMIDOL M200 10 ML VIAL ONE (12:47)
[2020-10-18] MEDS ORDERED: MIDAZOLAM 2 MG/2 ML VIAL ONE (12:47)
[2020-10-18] MEDS ORDERED: methylPREDNISolone ACETATE 40 MG/ML 1 ML VIAL ONE (12:47)
[2020-10-18] MEDS ORDERED: fentaNYL (PF) 50 MCG/ML 2 ML AMP ONE (12:47)
--- NOTE | 2020-10-18 12:58 | P.PCN ---
Date of Procedure: 10/18/20 Procedure(s) Performed: PREOPERATIVE DIAGNOSIS: 1- Lumbar Degenerative Disc Diseases 2-Lumbar spondylosis with Facet arthropathy without myelopathy 3-compression fracture lumbar spine POSTOPERATIVE DIAGNOSIS: Same as preop diagnosis. PROCEDURE 1. Lumbar epidural steroid injection under fluoroscopic guidance at the L5-S1 level. (Fluoroscopy imaging was available in radiology department) 2. Lumbar epidurogram. ANESTHESIA: Local with 1% lidocaine 3 ml and , moderate sedation with intravenous Versed 1 mg ,and fentanyle 50 Mcg EBL: Minimal PROCEDURE INDICATION: The patient with low back pain and radiculitis symptoms unresponsive to conservative treatment. Fluoroscopy was used to optimize visualization of the needle placement and to maximize safety. PROCEDURE DESCRIPTION / TECHNIQUE: The patient was seen and identified in the preoperative area. Risks, benefits, complications including but not limited to infections ,bleeding ,allergic reaction to the medications ,nerve damage and not complete pain releife , and alternatives were discussed with the patient. The patient agreed to proceed with the procedure and signed the consent. IV was started, and vital signs were stable. Patient was taken to the OR and time out was completed. The patient was placed in the prone position on procedure table and a pillow was placed under the abdomen to reduce lumbar lordosis. The lumbosacral area was prepped and draped in the usual sterile fashion.ere closely monitored during the procedure. Conscious sedation was used during the procedure to decrease patients anxiety. Vital signs was monitered during the entire procedure. Using anterior-posterior fluoroscopy, the L5-S1 interlaminar space was identified and the skin over this site was marked and then infiltrated with 1% lidocaine subcutaneously. Subsequently, a 20-gauge Tuohy epidural needle was inserted and advanced toward the epidural space using the ``Loss of resistance technique and guided by AP and lateral fluoroscopy. The correct needle position in the epidural space was verified with the injection of 2 mL of the water soluble contrast dye Isovue 200 contrast and observing an excellent epidurogram with the epidural spread of the dye, after negative aspiration for blood and CSF and in the absence of paresthesias. Again after negative aspiration, a 6 ml mixture containing 40 mg of Depo-medrol , and 2 ml of preservative free Normal Saline, and 2 ml of preservative free lidocaine 1% solution was injected and a washout of epidurogram was seen. Needle was withdrawn intact, skin was cleansed, and bandages were applied. COMPLICATIONS: None DISPOSITION / PLANS: The patient was placed in a supine position and transferred to the recovery area in a stable condition for observation. There was no evidence of lower extremity motor or sensory deficit after the procedure. Patient was discharged from the recovery room after meeting discharge criteria. Home discharge instructions were given to the patient by the staff. The patient was reexamined prior to discharge. The patient will schedule a follow up in the clinic in 2-4 weeks.
[2020-10-18] MEDS ORDERED: IV FLUID CONTINUATION 800 ML IV ONE (13:03)
[2020-10-18 13:06] VITALS: RESP 16
--- NOTE | 2020-10-18 13:11 | FL ---
EXAMINATION TYPE: FL guided pain mgmt statistic DATE OF EXAM: 10/18/2020 CLINICAL HISTORY: Low back pain. TECHNIQUE: Fluoroscopy. COMPARISON: None. FINDINGS: Fluoroscopic guidance was provided during pain relief procedure performed by Dr. Cottrell . A total of 3 seconds of fluoroscopic time was utilized during the procedure and 1 spot images are acquired. Single image acquired shows needle localization at the level of the lumbar spine with mult ilevel vertebroplasty partially imaged. IMPRESSION: As Above.
[2020-10-18 13:21] VITALS: BP 131/81; PULSE 62
== END 2020-10-18 13:43 | disposition home or self-care (01) ==
LOC: ORPAIN 11:57
PROVIDERS: ATTEND Specialist
DX: M51.36 Other intervertebral disc degeneration, lumbar region (principal); M47.816 Spondylosis without myelopathy or radiculopathy, lumbar region; M48.56XA Collapsed vertebra, not elsewhere classified, lumbar region, initial encounter for fracture
CPT/HCPCS: 62323; J2250; J1030; J3010; Q9966

== ENCOUNTER → 2020-10-24 | Outpatient (CLI) | payer MEDICARE ==
--- NOTE | 2020-10-24 14:37 | CT ---
EXAMINATION TYPE: CT chest w con DATE OF EXAM: 10/24/2020 COMPARISON: 03/12/2020 HISTORY: Esophageal cancer. CT DLP: 542 mGycm, Automated exposure control for dose reduction was used. CONTRAST: Performed injected with 80ml mL of Isovue 300. TECHNIQUE: Axial images were obtained at 5 mm thick sections. Reconstructed images are reviewed on [employer] computer in the coronal plane. FINDINGS: Portion of the thyroid visualized is normal. Mild increased lung markings right base likely on the basis of subsegmental atelectasis. In the superior mediastinum there is a 1.2 cm lymph node adjacent to the esophagus. This is slightly larger than 1.0 cm previous. Multiple scattered small lymph nodes are within the mediastinum. The as cending aorta diameter at the level of the main pulmonary artery is 4.0 cm. The main pulmonary arter y diameter at the bifurcation is 3.1 cm. Coronary artery calcification is noted. Mild diffuse thickening of the distal esophagus cannot be excluded. Findings appear stable from camille rison. Limited CT sections are obtained through the upper abdomen. Abdomen is essentially unremarkable. IMPRESSIONS: 1. Slight increase size of a 1.2 cm lymph node in the superior mediastinum. This can be followed up w ith PET/CT. 2. Distant metastatic change is not identified.
== END | disposition home or self-care (01) ==
LOC: RADCTMAIN 10:47
PROVIDERS: ATTEND Internal Medicine Hematology & Oncology
DX: R59.0 Localized enlarged lymph nodes (principal); C15.9 Malignant neoplasm of esophagus, unspecified
CPT/HCPCS: 82565; 84520; 71260; 36415; Q9967

== ENCOUNTER → 2020-11-02 | Outpatient (CLI) | payer MEDICARE ==
--- NOTE | 2020-11-02 12:53 | XR ---
EXAMINATION TYPE: XR chest 2V DATE OF EXAM: 11/02/2020 chest x-ray 320 COMPARISON: CT chest 10/24/2020 HISTORY: Presurgical testing TECHNIQUE: Frontal and lateral views of the chest are obtained. FINDINGS: Low lung volumes. Heart size is within upper limits of normal. Atherosclerotic aorta. No p leural effusion or pneumothorax. Mild increase in chronic prominence of the pulmonary interstitium. M ild bibasilar interstitial prominence may represent chronic scarring, atelectasis or interstitial pne umonia. Degenerative changes of the thoracic spine. IMPRESSION: 1. There is mild increase in pulmonary interstitial prominence throughout the lungs and at the lung b ases which may represent chronic scarring. Superimposed mild edema or atypical interstitial pneumonia is not excluded.
[2020-11-02 13:48] LABS: Appearance,Urine Clear (Clear); Bilirubin,Urine Negative (Negative); Blood,Urine Negative (Negative); Color,Urine Light Yellow; Glucose,Urine (UA) Negative (Negative); Ketones,Urine Negative (Negative); Leukocyte Esterase,Urine Negative (Negative); Nitrite,Urine Negative (Negative); Protein,Urine Negative (Negative); Specific Gravity,Urine 1.007 (1.001-1.035); Urobilinogen,Urine <2.0 mg/dL (<2.0)
[2020-11-02 15:07] LABS: Partial Thromboplastin Time 26.7 sec (22.0-30.0); Prothrombin Time 10.4 sec (9.0-12.0)
[2020-11-02 20:31] LABS: HCT 45.2 % (39.6-50.0); MCH 29.7 pg (27.0-32.0); Mean Platelet Volume 11.6 fL (9.5-12.2); Platelet Count 195 X 10*3/uL (140-440); RBC 4.71 X 10*6/uL (4.40-5.60); RDW 14.1 % (11.5-14.5); WBC 7.94 X 10*3/uL (4.50-10.00)
[2020-11-02 20:51] LABS: African American GFR (CKD) 58.5 (60.0-200.0); Albumin 3.8 g/dL (3.80-4.90); Albumin/Globulin Ratio 1.15 (1.60-3.17); Anion Gap 9.1 mmol/L (4.00-12.00); BUN/Creat Ratio 16.15 Ratio (12.00-20.00); Calcium 9.1 mg/dL (8.7-10.3); Carbon Dioxide 30.9 mmol/L (21.6-31.8); Globulin 3.3 g/dL (1.6-3.3); Non-African American GFR(CKD) 50.5 (60.0-200.0); Potassium 4.9 mmol/L (3.5-5.5); Total Bilirubin 0.6 mg/dL (0.2-1.2); Total Protein 7.1 g/dL (6.2-8.2)
== END | disposition home or self-care (01) ==
LOC: LABWHC1 12:00
PROVIDERS: ATTEND Surgery Vascular Surgery
DX: Z01.818 Encounter for other preprocedural examination (principal); J98.4 Other disorders of lung; D68.9 Coagulation defect, unspecified
CPT/HCPCS: 36415; 71046; 80053; 81003; 85027; 85610; 85730; 87086; 93005

== ENCOUNTER → 2020-11-05 | Outpatient (CLI) | payer MEDICARE ==
[2020-11-05 13:29] VITALS: BP 117/68; PULSE 68; RESP 18; TEMP 98
--- NOTE | 2020-11-05 13:57 | P.PN ---
Subjective Progress Note Date: 11/05/20 This is an 85-year-old gentleman with history of chronic low back pain that has been limited lately only to his lower back. The patient has been getting many interventional pain procedures with some degree of pain relief however with prolonged standing or prolonged activities the pain comes back. Patient denies new-onset weakness, bowel/bladder incontinence, or any other signs or symptoms of cauda equina syndrome. There are no signs of acute intoxication, and no indications of medication diversion or overuse. In addition to above, 13-point review of systems is also negative for chest pain, shortness of breath, changes in vision, changes in hearing, new onset weak ness, abdominal pain, diarrhea, extreme fatigue, malaise, fever, skin changes, homicidal or suicidal ideation, or bowel or bladder incontinence. Vital Signs: Reviewed in EMR Gen: AAOx3, NAD HEENT: PERRLA,hearing grossly normal Pulm: resp unlabored Neck: supple, trachea midline Neuro exam of the lower extremities: Muscle strength is normal bilaterally in the lower extremities Straight leg raising test: Adarsh's test: Range of motion of the lumbar spine: Facet loading test: Tenderness in the paravertebral musculature: Mild tenderness in the lumbar paravertebral musculature bilaterally Neuro: CN II-XII grossly intact, Imaging: Reviewed in EMR/chart Assessment: Lumbar spondylosis without myelopathy Lumbar DDD Lumbar stenosis Plan: 1. Explanation: Opioid and psychological risk scores were reviewed. Diagnoses, prognoses, and multiple treatment options including but not limited to physical therapy, interventional therapies, adjuvant medical therapies, narcotic medication therapies, and surgery were discussed with the patient and all questions were answered to the patient's satisfaction. 2. Opioid agreement: Signed with the patient and the patient is warned not to use opioids while driving or before driving and not to combine opioids with benzodiazepines or alcohol. 3. Counseling: The patient was counseled extensively on SMOKING CESSATION, BODY MASS INDEX, EXERCISE. Specifically, the patient was instructed regarding the importance of smoking cessation, obesity, and exercise in the context of both chronic pain and overall health. 4. Procedures: None for now. I advised the patient to hold off on any steroid injection for now because he has been getting at least one injection every month since the beginning of this year. 5. Consultations: None 6. Investigations: None 7. Medications:none 8. Disposition: Return to clinic as needed 9. Maps were reviewed and were appropriate. Objective - Vital Signs Vital signs: Vital Signs Temp 98.0 F 11/05/20 13:22 Pulse 68 11/05/20 13:22 Resp 18 11/05/20 13:22 BP 117/68 11/05/20 13:22 Pulse Ox 94 L 11/05/20 13:22
== END ==
LOC: PNWHC3 13:16
PROVIDERS: ATTEND Anesthesiology
DX: M47.816 Spondylosis without myelopathy or radiculopathy, lumbar region (principal); M48.061 Spinal stenosis, lumbar region without neurogenic claudication; M51.36 Other intervertebral disc degeneration, lumbar region; Z91.040 Latex allergy status; Z88.0 Allergy status to penicillin
CPT/HCPCS: 99211

== ENCOUNTER 2020-11-19 12:15 | Inpatient (IN) | payer MEDICARE ==
[2020-11-19] MEDS ORDERED: SODIUM CHLORIDE 0.9% 500 ML 500 ML IV ONE (13:53)
--- NOTE | 2020-11-19 14:00 | ED ---
Fall HPI - General Chief Complaint: Fall Stated Complaint: Fall/head injury/on asprin Time Seen by Provider: 11/19/20 12:59 Source: patient Mode of arrival: ambulatory - History of Present Illness Initial Comments: Drew is an 85-year-old male who is brought to the emergency department today by his family for evaluation of generalized weakness, multiple falls over the past week. Patient has had gait instability for quite a long time. He usually walks with a walker or cane's. has noted that he has had progressive worsening in the past 3 weeks but in the past week has had 3 falls. Patient reports that he just feels I his legs give out from under him, everything turns staley and he can't control his body. Over the weekend his daughters had to assist him from the ground to a sitting position 2 times due to the weakness. Patient underwent carotid endarterectomy about a week and a half ago, had outpatient follow-up with vascular surgery last week and was apparently healing well from his surgery. They did not discuss his increased weakness and falls with his vascular surgeon. - Related Data Home Medications Medication Instructions Recorded Confirmed Cetirizine HCl 10 mg PO DAILY PRN 07/05/15 11/19/20 Nitroglycerin Sl Tabs [Nitrostat] 0.4 mg SUBLINGUAL Q5M PRN 07/05/15 11/19/20 Pravastatin Sodium [Pravachol] 80 mg PO HS 09/01/17 11/19/20 Ipratropium-Albuterol Nebulize 3 ml INHALATION RT-Q6H PRN 07/29/19 11/19/20 [Duoneb 0.5 mg-3 mg/3 ml Soln] Insulin Glargine [Lantus] 20 unit SQ HS 08/17/19 11/19/20 Gabapentin [Neurontin] 400 mg PO DAILY 11/24/19 11/19/20 Gabapentin [Neurontin] 800 mg PO HS 11/24/19 11/19/20 Magnesium Oxide 400 mg PO BID 11/24/19 11/19/20 Meloxicam [Mobic] 7.5 mg PO DAILY 11/24/19 11/19/20 Metoprolol Tartrate 12.5 mg PO QAM 11/24/19 11/19/20 Omeprazole [PriLOSEC] 40 mg PO BID 11/24/19 11/19/20 Potassium Chloride 10 meq PO BID 11/24/19 11/19/20 Torsemide [Demadex] 100 mg PO DAILY 11/24/19 11/19/20 allopurinoL [Zyloprim] 300 mg PO DAILY 11/24/19 11/19/20 Zolpidem [Ambien] 10 mg PO HS PRN 01/13/20 11/19/20 Insulin Lispro [humaLOG Kwikpen] See Protocol SQ TID-W/MEALS PRN 06/28/20 11/19/20 Diclofenac Sodium Gel [Voltaren 4 gm TOPICAL QID PRN 11/19/20 11/19/20 Gel] Insulin Lispro [humaLOG Kwikpen] 10 unit SQ TID 11/19/20 11/19/20 Yupelri 175mcg/3ml Solution 1 inhalation INHALATION RT-DAILY 11/19/20 11/19/20 buPROPion HCL [Wellbutrin XL] 300 mg PO DAILY 11/19/20 11/19/20 Previous Rx's Medication Instructions Recorded Acetaminophen Tab [Tylenol] 650 mg PO Q4HR PRN tab 08/03/19 Aspirin 81 mg PO DAILY chew 08/23/19 Allergies Allergy/AdvReac Type Severity Reaction Status Date / Time latex Allergy Rash/Hives Verified 11/19/20 16:51 penicillin G Allergy Rash/Hives Verified 11/19/20 16:51 Review of Systems ROS Statement: Those systems with pertinent positive or pertinent negative responses have been documented in the HPI. ROS Other: All systems not noted in ROS Statement are negative. Past Medical History Past Medical History: Cancer, Heart Failure, COPD, Diabetes Mellitus, GERD/Reflux, Hearing Disorder / Deafness, Hyperlipidemia, Hypertension, Memory Impairment, Osteoarthritis (OA), Pneumonia, Renal Disease Additional Past Medical History / Comment(s): Fractures L2-L4 w/ paulina leg pain, DDD, Gout, CARDOSO'S esophagus, Esophageal CA-completed 28 radiation tx on 09/08/17, & 5 chemo tx 09/02/17. 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 ,see Dr Albrecht H&P, chronic kidney disease History of Any Multi-Drug Resistant Organisms: None Reported Past Surgical History: Back Surgery, Heart Catheterization, Hernia Repair, Orthopedic Surgery Additional Past Surgical History / Comment(s): Bilateral rotator cuff surgery, left foot surgery, thinks he has plate and screws, "esophagus radiofrequency ablation", paulina cataracts-lens implants, kyphoplasty. Pain procedures. Epidural steroid injection in back. Past Anesthesia/Blood Transfusion Reactions: No Reported Reaction Additional Past Anesthesia/Blood Transfusion Reaction / Comment(s): . Past Psychological History: No Psychological Hx Reported Smoking Status: Never smoker Past Alcohol Use History: Rare Past Drug Use History: None Reported - Past Family History Mother Family Medical History: Cancer Additional Family Medical History / Comment(s): Kidney, Thyroid cancer. Father Family Medical History: Coronary Artery Disease (CAD) Additional Family Medical History / Comment(s): AT AGE 53. General Exam Limitations: no limitations Course Vital Signs 11/19/20 12:28 Temperature 97.5 F L Pulse Rate 56 L Respiratory 18 Rate Blood Pressure 105/60 O2 Sat by Pulse 97 Oximetry Medical Decision Making - Medical Decision Making The patient was seen and evaluated history is obtained from patient, and daughter 85-year-old gentleman with frequent falls recently, falls despite using his walker at home Workup was essentially negative here however given the patient's multiple falls I do feel he would warrant observation in the hospital in evaluation by ne urology for evaluation of possible parkinsonian-like symptoms as well as evaluation by physical therapy and occupational therapy Dr. Sampson agrees with this plan and admission orders were placed - Lab Data Result diagrams: 11/19/20 14:20 11/19/20 14:20 Lab Results 11/19/20 11/19/20 11/19/20 Range/Units 14:20 14:20 14:20 WBC 8.3 (3.8-10.6) k/uL RBC 4.65 (4.30-5.90) m/uL Hgb 14.2 (13.0-17.5) gm/dL Hct 42.8 (39.0-53.0) % MCV 92.0 (80.0-100.0) fL MCH 30.5 (25.0-35.0) pg MCHC 33.2 (31.0-37.0) g/dL RDW 15.0 (11.5-15.5) % Plt Count 214 (150-450) k/uL MPV 7.9 Neutrophils % 70 % Lymphocytes % 18 % Monocytes % 6 % Eosinophils % 3 % Basophils % 0 % Neutrophils # 5.8 (1.3-7.7) k/uL Lymphocytes # 1.5 (1.0-4.8) k/uL Monocytes # 0.5 (0-1.0) k/uL Eosinophils # 0.3 (0-0.7) k/uL Basophils # 0.0 (0-0.2) k/uL PT 10.3 (9.0-12.0) sec INR 1.0 (<1.2) APTT 25.5 (22.0-30.0) sec Sodium 139 (137-145) mmol/L Potassium 4.1 (3.5-5.1) mmol/L Chloride 96 L (98-107) mmol/L Carbon Dioxide 31 H (22-30) mmol/L Anion Gap 12 mmol/L BUN 21 H (9-20) mg/dL Creatinine 1.37 H (0.66-1.25) mg/dL Est GFR (CKD-EPI)AfAm 55 (>60 ml/min/1.73 sqM) Est GFR (CKD-EPI)NonAf 47 (>60 ml/min/1.73 sqM) Glucose 84 (74-99) mg/dL Calcium 9.7 (8.4-10.2) mg/dL Magnesium 2.7 H (1.6-2.3) mg/dL Total Bilirubin 0.5 (0.2-1.3) mg/dL AST 33 (17-59) U/L ALT 22 (4-49) U/L Alkaline Phosphatase 111 (38-126) U/L Total Protein 7.4 (6.3-8.2) g/dL Albumin 4.0 (3.5-5.0) g/dL Urine Color Urine Appearance (Clear) Urine pH (5.0-8.0) Ur Specific [place] (1.001-1.035) Urine Protein (Negative) Urine Glucose (UA) (Negative) Urine Ketones (Negative) Urine Blood (Negative) Urine Nitrite (Negative) Urine Bilirubin (Negative) Urine Urobilinogen (<2.0) mg/dL Ur Leukocyte Esterase (Negative) 11/19/20 Range/Units 14:20 WBC (3.8-10.6) k/uL RBC (4.30-5.90) m/uL Hgb (13.0-17.5) gm/dL Hct (39.0-53.0) % MCV (80.0-100.0) fL MCH (25.0-35.0) pg MCHC (31.0-37.0) g/dL RDW (11.5-15.5) % Plt Count (150-450) k/uL MPV Neutrophils % % Lymphocytes % % Monocytes % % Eosinophils % % Basophils % % Neutrophils # (1.3-7.7) k/uL Lymphocytes # (1.0-4.8) k/uL Monocytes # (0-1.0) k/uL Eosinophils # (0-0.7) k/uL Basophils # (0-0.2) k/uL PT (9.0-12.0) sec INR (<1.2) APTT (22.0-30.0) sec Sodium (137-145) mmol/L Potassium (3.5-5.1) mmol/L Chloride (98-107) mmol/L Carbon Dioxide (22-30) mmol/L Anion Gap mmol/L BUN (9-20) mg/dL Creatinine (0.66-1.25) mg/dL Est GFR (CKD-EPI)AfAm (>60 ml/min/1.73 sqM) Est GFR (CKD-EPI)NonAf (>60 ml/min/1.73 sqM) Glucose (74-99) mg/dL Calcium (8.4-10.2) mg/dL Magnesium (1.6-2.3) mg/dL Total Bilirubin (0.2-1.3) mg/dL AST (17-59) U/L ALT (4-49) U/L Alkaline Phosphatase (38-126) U/L Total Protein (6.3-8.2) g/dL Albumin (3.5-5.0) g/dL Urine Color Light Yellow Urine Appearance Clear (Clear) Urine pH 7.5 (5.0-8.0) Ur Specific [place] 1.006 (1.001-1.035) Urine Protein Negative (Negative) Urine Glucose (UA) Negative (Negative) Urine Ketones Negative (Negative) Urine Blood Negative (Negative) Urine Nitrite Negative (Negative) Urine Bilirubin Negative (Negative) Urine Urobilinogen <2.0 (<2.0) mg/dL Ur Leukocyte Esterase Negative (Negative) Disposition Clinical Impression: Fall, Pre-syncope Disposition: ADMITTED IP TO THIS HOSP Condition: Stable
[2020-11-19 14:48] LABS: Basophils % (A) 0 %; Eosinophils # (A) 0.3 k/uL (0-0.7); Eosinophils % (A) 3 %; HCT 42.8 % (39.0-53.0); HGB 14.2 gm/dL (13.0-17.5); Lymphocytes # (A) 1.5 k/uL (1.0-4.8); Lymphocytes % (A) 18 %; MCH 30.5 pg (25.0-35.0); MCHC 33.2 g/dL (31.0-37.0); Mean Platelet Volume 7.9; Monocytes # (A) 0.5 k/uL (0-1.0); Monocytes % (A) 6 %; Neutrophils # (A) 5.8 k/uL (1.3-7.7); Neutrophils % (A) 70 %; Platelet Count 214 k/uL (150-450); RBC 4.65 m/uL (4.30-5.90); WBC 8.3 k/uL (3.8-10.6)
[2020-11-19 14:51] LABS: Appearance,Urine Clear (Clear); Bilirubin,Urine Negative (Negative); Blood,Urine Negative (Negative); Color,Urine Light Yellow; Glucose,Urine (UA) Negative (Negative); Ketones,Urine Negative (Negative); Leukocyte Esterase,Urine Negative (Negative); Nitrite,Urine Negative (Negative); PH, Urine 7.5 (5.0-8.0); Protein,Urine Negative (Negative); Specific Gravity,Urine 1.006 (1.001-1.035); Urobilinogen,Urine <2.0 mg/dL (<2.0)
[2020-11-19 14:52] LABS: Partial Thromboplastin Time 25.5 sec (22.0-30.0); Prothrombin Time 10.3 sec (9.0-12.0)
[2020-11-19 14:56] LABS: Calcium 9.7 mg/dL (8.4-10.2); Magnesium 2.7 mg/dL (1.6-2.3); Potassium 4.1 mmol/L (3.5-5.1); Total Bilirubin 0.5 mg/dL (0.2-1.3); Total Protein 7.4 g/dL (6.3-8.2)
--- NOTE | 2020-11-19 15:06 | CT ---
EXAMINATION TYPE: CT brain cspine wo con DATE OF EXAM: 11/19/2020 COMPARISON: CT brain August 17, 2019 HISTORY: recurrent syncopal falls, history of esophageal cancer. CT DLP: 1400.6 mGycm. Automated Exposure Control for Dose Reduction was Utilized. TECHNIQUE: CT scan of the head and cervical spine are performed without contrast. FINDINGS: There is no acute intracranial hemorrhage or midline shift identified. Moderate ventricul ar and sulcal prominence greatest in bilateral frontal and temporal lobes is redemonstrated. Near com plete opacification of the right maxillary sinus with sclerotic burleson and thickening. Patchy opacity and fluid throughout the ethmoid sinuses bilaterally and right frontal sinus along with complete opac ified right sphenoid sinus on current study. Distal vascular calcification of internal carotid arteri es bilaterally is redemonstrated. Cervical spine is visualized in its entirety from C1 through upper thoracic levels and demonstrates grade wall and retrolisthesis C3 on C4 without evidence of acute fracture or dislocation. Prevertebr al soft tissue appears within normal limits. The C1-C2 articulation is within normal limits on the c oronal images. Vertebral body heights are maintained. Moderate disc space narrowing C3-C4 level with posterior disc effaces the anterior thecal sac. Moderate disc space narrowing with disc calcification C4-C5 level. [id number] disc space narrowing with vacuum disc phenomenon and posterior spur disc complex effacing the anterior thecal sac C5-C6 level. Moderate disc space narrowing and vacuum d isc phenomenon C6-C7 level. Review of axial images show multilevel facet degenerative changes causing bilateral multilevel forami nal neural foraminal narrowing. Surgical changes to the right neck are partially imaged. Mild to mode rate calcified plaque near the left carotid bulb is present. IMPRESSION: 1. There is no acute fracture or dislocation evident in the cervical spine. 2. No acute intracranial hemorrhage or midline shift is seen. 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 Correlate clinically.
--- NOTE | 2020-11-19 15:08 | XR ---
EXAMINATION TYPE: XR chest 1V portable DATE OF EXAM: 11/19/2020 Comparison: 11/02/2020 Clinical History: 85-year-old male pain after fall Findings: Heart mildly enlarged. Mild interstitial prominence appears increased. Mild no cabrera consolidation or pleural effusion. Hyperinflation. Impression: Mild cardiomegaly and interstitial changes. Correlate to exclude mild CHF with pulmonary vascular con gestion.
[2020-11-19] MEDS ORDERED: NALOXONE 0.4 MG/ML 1 ML VIAL IV PRN (15:51)
[2020-11-19] MEDS ORDERED: DICLOFENAC SODIUM GEL 100 GM TUBE TOPICAL PRN (20:12)
[2020-11-19] MEDS ORDERED: NITROGLYCERIN SL TABS 0.4 MG TAB SUBLINGUAL PRN (20:12)
[2020-11-19] MEDS ORDERED: IPRATROPIUM-ALBUTEROL 3 ML NEB INHALATION PRN (20:12)
[2020-11-19] MEDS ORDERED: LORATADINE 10 MG TAB PO PRN (20:12)
[2020-11-19] MEDS ORDERED: ACETAMINOPHEN TAB 325 MG TAB PO PRN (20:12)
[2020-11-19 21:17] LABS: Glucose,Whole Blood 317 mg/dL (75-99)
--- NOTE | 2020-11-19 21:37 | HP ---
HISTORY AND PHYSICAL DATE OF SERVICE: 11/19/2020 CHIEF COMPLAINT: Weakness and falls. HISTORY OF PRESENT ILLNESS: This 85-year-old gentleman with a past medical history of multiple medical problems including history of CAD, CHF, COPD, diabetes type 2 history, history of GERD, history of possible interstitial lung disease, history of gout, history of is being followed by Dr. Dozier. The patient also had significant peripheral neuropathy. The patient was not able to feel the legs properly and the patient also had gait instability which is increasing over the past of couple days. Patient also had multiple falls. The patient feels like the legs are giving out under him. Patient also had recently right carotid endarterectomy from [facility] at this time. There is no history of fever, rigors or chills. No history of headache, loss of consciousness, seizures at this time. PAST MEDICAL HISTORY: History of CHF, COPD, diabetes, GERD, hypertension, hyperlipidemia. MEDICATIONS: Prior to admission include home medications are: Zyloprim, aspirin Pravachol, Neurontin, cetirizine, Tylenol, Voltaren, Ambien, Demadex, Prilosec. Nitrostat, metoprolol, Mobic, magnesium oxide, DuoNeb, Humalog. Doses reviewed. ALLERGIES: LATEX AND PENICILLIN G. FAMILY HISTORY: History of kidney and thyroid cancer. SOCIAL HISTORY: History of alcohol intake. No history of smoking. REVIEW OF SYSTEMS: ENT: Diminished vision. Diminished hearing. CARDIOVASCULAR: No angina or palpitations. RESPIRATION as mentioned earlier. GI: As mentioned earlier. : No dysuria. Nervous System: As mentioned earlier. ALLERGIES/IMMUNOLOGY: No asthma or hayfever. MUSCULOSKELETAL: As mentioned earlier. HEMATOLOGY/ONCOLOGY: No history of anemia. ENDOCRINE: As mentioned earlier. CONSTITUTIONAL: As mentioned earlier. DERMATOLOGY: Negative. RHEUMATOLOGY: Negative. PSYCHIATRIC: As mentioned earlier. PHYSICAL EXAMINATION: Alert and oriented times three. Pulse is 56. Blood pressure 105/66, respiration 18, temperature 97.4, pulse ox 97% on room air. HEENT: Conjunctivae normal. NECK: No JVD. CARDIOVASCULAR: S1, S2 muffled. RESPIRATION: Breath sounds diminished in the bases. Scattered rhonchi. No crackles. NECK: Status post carotid endarterectomy recent. ABDOMEN: Soft, obese, nontender. No mass palpable. LEGS: No edema. No swelling. NERVOUS SYSTEM: Higher functions as mentioned earlier. Moves all 4 limbs. Diffuse tremors present. Some increased tone also present. Otherwise significant peripheral sensory loss in both legs. SKIN: No ulcers, rashes and no bleeding. JOINTS: No active deforming arthropathy. LYMPHATICS: No lymph nodes palpable in the neck, axillae or groin. LABS: Creatinine 1.37, the baseline is normal. Magnesium is 2.7. ASSESSMENT: 1. Severe peripheral neuropathy with leading to gait dysfunction. 2. Multiple falls secondary to gait dysfunction. 3. Dehydration with acute renal failure, acute tubular necrosis present on admission. 4. History of coronary artery disease, congestive heart failure. 5. History of chronic obstructive pulmonary disease. 6. Diabetes mellitus type 2. 7. Gastroesophageal reflux disease. 8. Hard of hearing, deafness. 9. Hypertension. 10.Hyperlipidemia. 11.History of memory impairment. 12.History of degenerative joint disease. 13.History of pneumonia. 14.History of fracture of L2, L4. 15.History of degenerative joint disease. 16.History of gout. 17.History of Hernandez's esophagus. 18.History of esophageal carcinoma, status post radiation and chemo in 2018. 19.History of nephrolithiasis. 20.Stomach ulcers. 21.History of recent right carotid endarterectomy. 22.History of cardiac catheterization. 23.History of degenerative joint disease. 24.FULL CODE. RECOMMENDATIONS AND DISCUSSION: This 85-year-old gentleman who presented with multiple complex medical issues, we will monitor the patient closely, continue the current medications, management and symptomatic treatment. Otherwise, at this time, the patient had a CT scan of the brain and spine which showed no acute fracture dislocation. We will obtain neurology evaluation. Otherwise, PT/OT evaluation. Possible ECF rehab. The exact etiology of peripheral neuropathy is unclear at this time. Diabetes mellitus is a possibility. Otherwise home medication will be reconciled and continued when it is confirmed. Prognosis extremely guarded because of multiple complex medical issues. Further recommendations to follow. A copy of dictation being forwarded to Dr. Dozier who is the primary physician. NAE / CIRO: [id number] / MTDD
[2020-11-19] MEDS: GABAPENTIN 400 MG CAP PO SCH (22:32)
[2020-11-19] MEDS: POTASSIUM CHLORIDE ER 10 MEQ TAB.ER.PRT PO SCH (22:33)
[2020-11-19] MEDS: HEPARIN SODIUM,PORCINE/PF 5,000 UNIT/0.5 ML SYRINGE SQ SCH (22:33)
[2020-11-19] MEDS: INSULIN ASPART (NovoLOG) 100 UNIT/ML VIAL SQ SCH (22:34)
[2020-11-19] MEDS: MAGNESIUM OXIDE 400 MG TAB PO SCH (22:34)
[2020-11-19] MEDS: ZOLPIDEM 5 MG TAB PO PRN (22:43)
[2020-11-19] MEDS: PANTOPRAZOLE 40 MG TABLET PO SCH (22:43)
[2020-11-19] MEDS: PRAVASTATIN SODIUM 80 MG TAB PO SCH (22:44)
[2020-11-19] MEDS: INSULIN DETEMIR (LEVEMIR) 100 UNIT/ML SYR SQ SCH (22:44)
[2020-11-20 07:16] LABS: Glucose,Whole Blood 107 mg/dL (75-99)
[2020-11-20] MEDS: YUPELRI 175 MCG/3 ML INHALATION SCH (08:10)
[2020-11-20] MEDS: INSULIN ASPART (NovoLOG) 100 UNIT/ML VIAL SQ SCH ×7 (08:43→22:00)
[2020-11-20] MEDS: MAGNESIUM OXIDE 400 MG TAB PO SCH ×2 (08:56→22:28)
[2020-11-20] MEDS: allopurinoL 300 MG TAB PO SCH (09:00)
[2020-11-20] MEDS: ASPIRIN 81 MG PO SCH (09:00)
[2020-11-20] MEDS: buPROPion XL 300 MG TAB.ER.24H PO SCH (09:00)
[2020-11-20] MEDS: PANTOPRAZOLE 40 MG TABLET PO SCH ×2 (09:00→17:44)
[2020-11-20] MEDS: MELOXICAM 7.5 MG TAB PO SCH (09:01)
[2020-11-20] MEDS: HEPARIN SODIUM,PORCINE/PF 5,000 UNIT/0.5 ML SYRINGE SQ SCH ×2 (09:01→21:58)
[2020-11-20] MEDS: GABAPENTIN 400 MG CAP PO SCH ×2 (09:01→21:58)
[2020-11-20] MEDS: METOPROLOL TARTRATE 12.5 MG TAB PO SCH (09:02)
[2020-11-20] MEDS: POTASSIUM CHLORIDE ER 10 MEQ TAB.ER.PRT PO SCH ×2 (09:02→21:58)
[2020-11-20] MEDS: TORSEMIDE 20 MG TAB PO SCH (09:02)
[2020-11-20 09:31] LABS: Basophils # (A) 0.03 X 10*3/uL (0.00-0.10); Basophils % (A) 0.5 %; Eosinophils # (A) 0.21 X 10*3/uL (0.04-0.35); Eosinophils % (A) 3.2 %; HCT 41.8 % (39.6-50.0); HGB 12.7 g/dL (13.0-17.0); Lymphocytes # (A) 1.33 X 10*3/uL (0.90-5.00); Lymphocytes % (A) 20.2 %; MCH 28.9 pg (27.0-32.0); MCHC 30.4 g/dL (32.0-37.0); Mean Platelet Volume 11.4 fL (9.5-12.2); Monocytes # (A) 0.51 X 10*3/uL (0.20-1.00); Monocytes % (A) 7.7 %; Neutrophils % (A) 68.1 %; Platelet Count 205 X 10*3/uL (140-440); RDW 14.7 % (11.5-14.5)
[2020-11-20 10:40] LABS: African American GFR (CKD) 53.5 (60.0-200.0); BUN/Creat Ratio 14.29 Ratio (12.00-20.00); Calcium 9.7 mg/dL (8.7-10.3); Non-African American GFR(CKD) 46.1 (60.0-200.0); Potassium 3.9 mmol/L (3.5-5.5)
[2020-11-20 12:12] LABS: Glucose,Whole Blood 153 mg/dL (75-99)
--- NOTE | 2020-11-20 12:22 | P.CNNES ---
History of Present Illness Consult date: 11/20/20 Requesting physician: Omaira Raya Reason for Consult: frequent falls, gait instability. History of Present Illness: This is an 85-year-old gentleman with medical history of diabetes mellitus (for 33 years), neuropathy (for 10 years), fracture of L2 to L4 and had kyphoplasty, lumbar spondylosis without myelopathy, who gets lumbar epidural injection and ablation, right carotid endarterectomy 1 1/2 weeks ago, left carotid complete occlusion hypertension, hyperlipidemia, heart failure, COPD, hard of hearing of both ears, chronic kidney disease, esophageal cancer status post radiation in 2018 as well as chemotherapy who presents to [facility] emergency department because of generalized weakness and multiple falls over the past week. The patient is occupied by his (Jocelyn) and his daughter who are at bedside. They stated that the patient has been followed in the last 4 weeks but in the last 1 week he had 3 falls. The patient the leg become weak upon walk- in. His family members described as his legs become like spaghetti. He uses a walker for the last 3 years. With these episodes the his legs just become weak and per family he misses steps as well especially with a history of neuropathy. He had neuropathy of his feet for the last 10 years and now and involving the hands. The patient does not lose consciousness with these episodes. Patient does not have any jerking of any of the extremities, difficulty getting his words out, any visual disturbance, any difficulty swallowing. Patient does not have any resting tremor. Denies off any bowel incontinence. He said that he is urinating well without any issues Per his daughter she stated that the patient just wants to move around really quickly. Patient denies any history of strokes or TIAs in the past. Regarding U medication was started on Wellbutrin. In the past he has chronic lower back pain which she continues to have and that back pain used to radiate down his legs but since he's getting epidural injections ablations he only has lower back pain without radiation. His last lumbar epidural injection with 10/18/[address] Cottrell. It seems that the patient had endarterectomy of the right carotid about a week and a half ago as an outpatient by vascular surgery. Patient is on aspirin 81 pravastatin 80 mg daily. Some of the workup in the hospital consisted of: CT of the head and cervical spine is reported as there is no acute fracture or dislocation evident in the cervical spine. No acute intracranial hemorrhage or midline shift is seen. Worsening acute on chronic paranasal sinus disease noted. Correlate clinically. In the body of the report it is mentioned that the patient has moderate disc space narrowing of the C3-C4 level with posterior disc effaced the anterior thecal sac. Moderate disc space narrowing with disc calcification of C4-C5 level. Moderate to severe disc space narrowing of the C5-C6 and moderate over C6-C7. I personally reviewed the CT and I felt that the patient cervical sp ondylosis was most severe between C5 and C6 area. Initial CBC is unremarkable. Chemistry panel is glucose of 84, the creatinine is 1.37 and the repeated is 1.4 The patient had POC glucose which was 317 which elevated the repeated was 107. Review of Systems Review of system: The 12 point system was reviewed and apparent positive and negative per HPI. Past Medical History Past Medical History: Cancer, Heart Failure, COPD, Diabetes Mellitus, GERD/Reflux, Hearing Disorder / Deafness, Hyperlipidemia, Hypertension, Memory Impairment, Osteoarthritis (OA), Pneumonia, Renal Disease Additional Past Medical History / Comment(s): Fractures L2-L4 w/ paulina leg pain, DDD, Gout, CARDOSO'S esophagus, Esophageal CA-completed 28 radiation tx on 09/08/17, & 5 chemo tx 09/02/17. 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 ,see Dr Albrecht H&P, chronic kidney disease History of Any Multi-Drug Resistant Organisms: None Reported Past Surgical History: Back Surgery, Heart Catheterization, Hernia Repair, Orthopedic Surgery Additional Past Surgical History / Comment(s): Bilateral rotator cuff surgery, left foot surgery, thinks he has plate and screws, "esophagus radiofrequency ablation", paulina cataracts-lens implants, kyphoplasty. Pain procedures. Epidural steroid injection in back. Past Anesthesia/Blood Transfusion Reactions: No Reported Reaction Additional Past Anesthesia/Blood Transfusion Reaction / Comment(s): . Past Psychological History: No Psychological Hx Reported Smoking Status: Never smoker Past Alcohol Use History: Rare Additional Past Alcohol Use History / Comment(s): . Past Drug Use History: None Reported - Past Family History Mother Family Medical History: Cancer Additional Family Medical History / Comment(s): Kidney, Thyroid cancer. Father Family Medical History: Coronary Artery Disease (CAD) Additional Family Medical History / Comment(s): AT AGE 53. Medications and Allergies Home Medications Medication Instructions Recorded Confirmed Type Cetirizine HCl 10 mg PO DAILY PRN 07/05/15 11/19/20 History Nitroglycerin Sl Tabs [Nitrostat] 0.4 mg SUBLINGUAL Q5M PRN 07/05/15 11/19/20 History Pravastatin Sodium [Pravachol] 80 mg PO HS 09/01/17 11/19/20 History Ipratropium-Albuterol Nebulize 3 ml INHALATION RT-Q6H PRN 07/29/19 11/19/20 History [Duoneb 0.5 mg-3 mg/3 ml Soln] Acetaminophen Tab [Tylenol] 650 mg PO Q4HR PRN tab 08/03/19 11/19/20 Rx Insulin Glargine [Lantus] 20 unit SQ HS 08/17/19 11/19/20 History Aspirin 81 mg PO DAILY chew 08/23/19 11/19/20 Rx Gabapentin [Neurontin] 400 mg PO DAILY 11/24/19 11/19/20 History Gabapentin [Neurontin] 800 mg PO HS 11/24/19 11/19/20 History Magnesium Oxide 400 mg PO BID 11/24/19 11/19/20 History Meloxicam [Mobic] 7.5 mg PO DAILY 11/24/19 11/19/20 History Metoprolol Tartrate 12.5 mg PO QAM 11/24/19 11/19/20 History Omeprazole [PriLOSEC] 40 mg PO BID 11/24/19 11/19/20 History Potassium Chloride 10 meq PO BID 11/24/19 11/19/20 History Torsemide [Demadex] 100 mg PO DAILY 11/24/19 11/19/20 History allopurinoL [Zyloprim] 300 mg PO DAILY 11/24/19 11/19/20 History Zolpidem [Ambien] 10 mg PO HS PRN 01/13/20 11/19/20 History Insulin Lispro [humaLOG Kwikpen] See Protocol SQ TID-W/MEALS PRN 06/28/20 11/19/20 History Diclofenac Sodium Gel [Voltaren 4 gm TOPICAL QID PRN 11/19/20 11/19/20 History Gel] Insulin Lispro [humaLOG Kwikpen] 10 unit SQ TID 11/19/20 11/19/20 History Yupelri 175mcg/3ml Solution 1 inhalation INHALATION RT-DAILY 11/19/20 11/19/20 History buPROPion HCL [Wellbutrin XL] 300 mg PO DAILY 11/19/20 11/19/20 History Allergies Allergy/AdvReac Type Severity Reaction Status Date / Time latex Allergy Rash/Hives Verified 11/19/20 16:51 penicillin G Allergy Rash/Hives Verified 11/19/20 16:51 Physical Examination - Vital Signs Vital Signs: Vital Signs Temp Pulse Pulse Resp BP BP Pulse Ox 11/20/20 07:00 98.2 F 74 16 116/65 93 L 11/20/20 01:45 97.9 F 72 16 125/63 93 L 11/19/20 21:30 16 11/19/20 21:08 97.3 F L 60 16 119/67 95 11/19/20 12:28 97.5 F L 56 L 18 105/60 97 Intake and Output 11/19/20 11/20/20 11/20/20 22:59 06:59 14:59 Output Total 1700 Balance -1700 Output: Urine 1700 Uretheral (Martinez) 850 Other: # Voids 0 Weight 82.554 kg GENERAL: The patient is lying in bed and is not in acute distress. CHEST: The heart rate is regular rate rhythm. No murmurs to auscultation. No carotid bruit bilaterally. Has scar over the right carotid region. LUNG: Clear to auscultation bilaterally no wheezing noted throughout. Not labored breathing. ABDOMEN/GI: Bowel sounds present in all 4 quadrants. No tenderness to palpation throughout. NEUROLOGICAL: Higher mental function: The patient is awake, alert, oriented to self, place and time. Patient is following commands. No aphasia and no neglect. Cranial nerves: The pupils are round, equal and reactive to light and accommodation. Visual nogueira are full to confrontation throughout. Extraocular movement is intact no nystagmus is noted. Facial sensation is normal to touch throughout. The facial strength is normal throughout. Hearing is moderately to severely decreased bilaterally to hand rub. Tongue is midline and moved [id number] without any difficulty. No dysarthria is noted. Motor: Gait is walking is sometimes he stoppes forward while walking and he tend to try to attempt to walk fast and making fast turn. His fast turn seems somewhat unsteady. The strength is deltoid strength is antigravity bilaterally but limited because of shoulder pain (chronic). 4+ to 5- over bilateral toe exte nsion. Otherwise 5 over 5 throughout. Normal tone and bulk. Cerebellum: Normal finger to nose bilaterally. Sensation: Sensation is decreased to touch throughout bilateral ankles/feet. Reflexes (right/left): 1+ throughout upper while 0-1 at bilateral patellar and o at bilateral ankles. Plantars are downgoing bilaterally. Results Urinalysis is negative for urinary tract infection. Mann virus PCR was not detected. - Laboratory Findings CBC and BMP: 11/20/20 05:31 11/20/20 05:31 Abnormal Lab Findings: Abnormal Labs 11/19/20 11/19/20 11/20/20 14:20 21:16 05:31 Hgb 12.7 L MCHC 30.4 L RDW 14.7 H Chloride 96 L Carbon Dioxide 31 H Anion Gap BUN 21 H Creatinine 1.37 H Est GFR (CKD-EPI)AfAm Est GFR (CKD-EPI)NonAf POC Glucose (mg/dL) 317 H Magnesium 2.7 H 11/20/20 11/20/20 05:31 07:05 Hgb MCHC RDW Chloride Carbon Dioxide Anion Gap 13.00 H BUN Creatinine Est GFR (CKD-EPI)AfAm 53.5 L Est GFR (CKD-EPI)NonAf 46.1 L POC Glucose (mg/dL) 107 H Magnesium Assessment and Plan Assessment: Multiple falls and gait unsteadiness is due Likely diabetic neuropathy. Possibly component from lumbosacral spondylosis Diabetes mellitus (for the past 33 years). Neuropathy likely due to diabetes mellitus (has neuropathy of the feet and currently involving hand for the past 10 years). History of Fracture of the L2 to L4/Compression fracture s/p kyphoplasty Lumbar spondylosis without myelopathy s/p epidural injection/ablation. Lumbosacral radiculopathy Cervical spondylosis seems moderate to severe over C5-C6 region Right carotid endarterectomy 1 1/2 weeks ago Left carotid occlusion. Hard of hearing Chronic kidney insufficiency History of esophageal cancer status post radiation and chemotherapy in 2018 Hypertension Hyperlipidemia Heart failure COPD Plan: CT of the head and cervical spine is reported as there is no acute fracture or dislocation evident in the cervical spine. No acute intracranial hemorrhage or midline shift is seen. Worsening acute on chronic paranasal sinus disease n oted. Correlate clinically. In the body of the report it is mentioned that the patient has moderate disc space narrowing of the C3-C4 level with posterior disc effaced the anterior thecal sac. Moderate disc space narrowing with disc calcification of C4-C5 level. Moderate to severe disc space narrowing of the C5-C6 and moderate over C6-C7. I personally reviewed the CT and I felt that the patient cervical spondylosis was most severe between C5 and C6 area. I ordered MRI of the lumbar spine. I ordered the hemoglobin A1c, vitamin B12, folate level and Vitamin B6 to rule out other causes of neuropathy other than diabetes. Ordered orthostatic vitals. Physical therapy and occupation therapy are consulted. Recommend EMG with nerve conduction study as an outpatient. I consulted orthopedic team for the chronic lumbar spondylosis with unsteady gait/falls. Upon discharge the patient needs to follow-up with a neurologist as outpatient within 1-2 weeks. We'll defer the rest of the medical management to the primary team. The plan is discussed with the patient, his (Jocelyn) and his daughter (Amy) who are at bedside. Thank you for the consultation Derrick Akhtar M.D. Neuro-hospitalist Time with Patient: Greater than 30
[2020-11-20] MEDS: FOLIC ACID 1 MG TAB PO SCH (12:41)
[2020-11-20] MEDS: MULTIVITAMINS, THERA 1 EACH TAB PO SCH (12:41)
[2020-11-20] MEDS: THIAMINE 100 MG TAB PO SCH (12:42)
--- NOTE | 2020-11-20 16:51 | MR ---
EXAMINATION TYPE: MR lumbar spine wo con DATE OF EXAM: 11/20/2020 COMPARISON: None HISTORY: Fall. Back pain. Multiplanar multiecho imaging of the lumbar spine was performed formed without contrast. FINDINGS: The lumbar vertebra have normal alignment. There is low signal in the L2 and L3 and L4 vertebral bodi es consistent with multilevel vertebroplasty. There is mild compression deformity of the vertebral alberto dies from L2 to L4 with up to 30% loss of height. There is also wedging of T12 vertebra 25%. There is hypertrophic facet arthropathy and posterior minimal endplate spur formation. There is a mild spinal stenosis at L3-4. There is also mild relative narrowing of the spinal canal at L2-3. There is no par aspinal mass. The posterior elements are intact. The sacroiliac joints appear intact. IMPRESSION: Moderate multilevel spondylotic changes. Multilevel compression fracture with vertebral plasties. No acute fracture seen. Mild spinal stenosis at L2-3 and L3-4.
[2020-11-20 16:53] LABS: Hemoglobin A1C 8.7 % (4.0-6.0)
--- NOTE | 2020-11-20 17:10 | P.CNOR ---
History of Present Illness - [facility] Consult date: 11/20/20 Consult reason: low back pain (Gait instability and frequent falls) History of present illness: Patient is an 85-year-old male who was admitted to [facility] due to weakness, difficulty with ambulating, and frequent falls. Patient was admitted to the internal medicine group for further workup, both neurology and orthopedics having consult for further workup. Patient was evaluated today at bedside, his daughter and are both at bedside. Patient was sitting up in his hospital chair in no acute distress. Patient has a relatively detailed medical history with multiple medical comorb idities and recent surgeries. Patient had a fall from a heavy machine back in 2018 that resulted in compression fractures of his lumbar spine, he underwent a kyphoplasty in the lumbar spine region at that time. Patient since then has seen pain management, he's undergone multiple epidural steroid injections along with nerve ablations. His most recent surgery was a nerve ablation in October 2020. The nerve ablation seem to help with the radicular symptoms in the bilateral lower extremities. Patient continues to have chronic low back pain though. Patient had a recent right carotid enterectomy about a week and a half ago at [facility] by the vascular service.patient has a known history of severe stenosis of the left carotid artery also. No surgical intervention has been attempted on that. Patient utilizes a walker with ambulation. Patient has a history of diabetic neuropathy that mainly affects the feet, this is been getting worse over the last few years, he was diagnosed first about 10 years ago. He has started to notice some the numbness and tingling in the bilateral hands. Patient has history of bilateral shoulder arthroscopies with rotator cuff repair. He has seen Dr. Evans in detail past for this problem, he knows that he has severe arthritis in both shoulders, the left being worse. Dr. Evans to discuss a total shoulder replacement, the patient did not proceed with this. When asking the patient about his recent falls, he states that he feels that it's a few different reasons for the fall. Michael has difficulty with feeling in the feet, that causes him to walk more on his heels. Patient can feel the unsteadiness coming on prior to the falls. Daughter has witnessed a few of the falls, she states that his color worsens and that she can tell when symptoms are worsening prior to the fall. Patient denies any previous surgery involving the cervical or thoracic spine. He cannot remember she's had any cervical or thoracic imaging, this including regular x-rays, computed tomography scan or MRI. Currently he denies no radicular symptoms, this including numbness and tingling or pain of the bilateral upper or lower extremities. He does have some central pain involving the low back region. He denies any acute cervical or thoracic pain. He denies any changes, this included loss of bowel or bladder function. Review of Systems Constitutional: Reports as per HPI Past Medical History Past Medical History: Cancer, Heart Failure, COPD, Diabetes Mellitus, GERD/Ref lux, Hearing Disorder / Deafness, Hyperlipidemia, Hypertension, Memory Impairment, Osteoarthritis (OA), Pneumonia, Renal Disease Additional Past Medical History / Comment(s): Fractures L2-L4 w/ paulina leg pain, DDD, Gout, CARDOSO'S esophagus, Esophageal CA-completed 28 radiation tx on 09/08/17, & 5 chemo tx 09/02/17. 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 ,see Dr Albrecht H&P, chronic kidney disease History of Any Multi-Drug Resistant Organisms: None Reported Past Surgical History: Back Surgery, Heart Catheterization, Hernia Repair, Orthopedic Surgery Additional Past Surgical History / Comment(s): Bilateral rotator cuff surgery, left foot surgery, thinks he has plate and screws, "esophagus radiofrequency ablation", paulina cataracts-lens implants, kyphoplasty. Pain procedures. Epidural steroid injection in back. Past Anesthesia/Blood Transfusion Reactions: No Reported Reaction Additional Past Anesthesia/Blood Transfusion Reaction / Comm: . Past Psychological History: No Psychological Hx Reported Smoking Status: Never smoker Past Alcohol Use History: Rare Additional Past Alcohol Use History / Comment(s): . Past Drug Use History: None Reported - Past Family History Mother Family Medical History: Cancer Additional Family Medical History / Comment(s): Kidney, Thyroid cancer. Father Family Medical History: Coronary Artery Disease (CAD) Additional Family Medical History / Comment(s): AT AGE 53. Medications and Allergies Home Medications Medication Instructions Recorded Confirmed Type Cetirizine HCl 10 mg PO DAILY PRN 07/05/15 11/19/20 History Nitroglycerin Sl Tabs [Nitrostat] 0.4 mg SUBLINGUAL Q5M PRN 07/05/15 11/19/20 Hi story Pravastatin Sodium [Pravachol] 80 mg PO HS 09/01/17 11/19/20 History Ipratropium-Albuterol Nebulize 3 ml INHALATION RT-Q6H PRN 07/29/19 11/19/20 History [Duoneb 0.5 mg-3 mg/3 ml Soln] Acetaminophen Tab [Tylenol] 650 mg PO Q4HR PRN tab 08/03/19 11/19/20 Rx Insulin Glargine [Lantus] 20 unit SQ HS 08/17/19 11/19/20 History Aspirin 81 mg PO DAILY chew 08/23/19 11/19/20 Rx Gabapentin [Neurontin] 400 mg PO DAILY 11/24/19 11/19/20 History Gabapentin [Neurontin] 800 mg PO HS 11/24/19 11/19/20 History Magnesium Oxide 400 mg PO BID 11/24/19 11/19/20 History Meloxicam [Mobic] 7.5 mg PO DAILY 11/24/19 11/19/20 History Metoprolol Tartrate 12.5 mg PO QAM 11/24/19 11/19/20 History Omeprazole [PriLOSEC] 40 mg PO BID 11/24/19 11/19/20 History Potassium Chloride 10 meq PO BID 11/24/19 11/19/20 History Torsemide [Demadex] 100 mg PO DAILY 11/24/19 11/19/20 History allopurinoL [Zyloprim] 300 mg PO DAILY 11/24/19 11/19/20 History Zolpidem [Ambien] 10 mg PO HS PRN 01/13/20 11/19/20 History Insulin Lispro [humaLOG Kwikpen] See Protocol SQ TID-W/MEALS PRN 06/28/20 11/19/20 History Diclofenac Sodium Gel [Voltaren 4 gm TOPICAL QID PRN 11/19/20 11/19/20 History Gel] Insulin Lispro [humaLOG Kwikpen] 10 unit SQ TID 11/19/20 11/19/20 History Yupelri 175mcg/3ml Solution 1 inhalation INHALATION RT-DAILY 11/19/20 11/19/20 History buPROPion HCL [Wellbutrin XL] 300 mg PO DAILY 11/19/20 11/19/20 History Allergies Allergy/AdvReac Type Severity Reaction Status Date / Time latex Allergy Rash/Hives Verified 11/19/20 16:51 penicillin G Allergy Rash/Hives Verified 11/19/20 16:51 Physical Examination Gen: AOx3, NAD VSS stable at this time Integument: No obvious skin changes appreciated of the cervical, thoracic and lumbar spine. No ceramic areas of erythema, fluctuance or soft tissue swelling Palpation: Mild tenderness with palpation in the midline and paraspinal regions of the lumb ar spine. No tenderness with palpation of the midline and paraspinal regions of the cervical or thoracic region. ROM: Motion intact in the bilateral upper extremities with regards to wrist extension , wrist flexion, elbow extension, elbow flexion. Forward elevation along with abduction were very difficult with patient's known history of osteoarthritis, worse on the left than right. Motion intact with hip flexion, knee extension, knee flexion, plantar flexion, dorsiflexion, EHL, FHL are bilateral lower extremities Sensory Exam: Senory exam to light touch is intact C5-T1, sensory exam is diminished slightly in the tips of the thumb, index and middle finger of the bilateral hands ][enosry exam to light touch is intact L2-S1, light touch is diminished on the plantar aspect of bilateral feet ] Motor: 5 out of 5 strength is appreciated in the bilateral upper extremities with both biceps and triceps testing, notable weakness with forward elevation and shoulder abduction, internal rotation and externally rotation bilaterally 4 out of 5 strength is appreciated on the left side with both hip flexion and dorsiflexion, remaining strength test in that lower extremity is 5 out of 5 5 out of 5 strength is appreciated with hip flexion, knee extension, knee flexion, plantar flexion, dorsiflexion, EHL, FHL of the right lower extremity Reflexes: Reflexes were difficult to assess in the bilateral upper and lower extremities Negative Analy's bilaterally, negative Babinski bilaterally, negative clonus bilaterally Results - Labs Labs: Abnormal Lab Results - Last 24 Hours (Table) 11/19/20 11/20/20 11/20/20 Range/Units 21:16 05:31 05:31 Hgb 12.7 L (13.0-17.0) g/dL MCHC 30.4 L (32.0-37.0) g/dL RDW 14.7 H (11.5-14.5) % Anion Gap 13.00 H (4.00-12.00) mmol/L Est GFR (CKD-EPI)AfAm 53.5 L (60.0-200.0) Est GFR (CKD-EPI)NonAf 46.1 L (60.0-200.0) POC Glucose (mg/dL) 317 H (75-99) mg/dL 11/20/20 11/20/20 Range/Units 07:05 12:03 Hgb (13.0-17.0) g/dL MCHC (32.0-37.0) g/dL RDW (11.5-14.5) % Anion Gap (4.00-12.00) mmol/L Est GFR (CKD-EPI)AfAm (60.0-200.0) Est GFR (CKD-EPI)NonAf (60.0-200.0) POC Glucose (mg/dL) 107 H 153 H (75-99) mg/dL H & H 11/19/20 11/20/20 Range/Units 14:20 05:31 Hgb 14.2 12.7 L (13.0-17.5) gm/dL Hct 42.8 41.8 (39.0-53.0) % Coagulation 11/19/20 Range/Units 14:20 INR 1.0 (<1.2) Result Diagrams: 11/20/20 05:31 11/20/20 05:31 - Diagnostic results CT scan - cervical: report reviewed (Report was reviewed of the cervical computed tomography scan, spondylosis changes noted at C3 to C4, C4-C5, C5-C6, C6-C7 they noted no acute fractures or dislocations ) Assessment and Plan Assessment: Generalized weakness Difficulty ambulating History of recent falls Multilevel cervical spine spondylosis Chronic low back pain History of multiple lumbar epidural steroid injections and nerve ablations Plan: I was able to discuss the case, including with physical exam findings imaging studies my attending Dr. Lilly. No emergent orthopedic surgical intervention recommended at this time. MRI of the lumbar spine has been ordered by neurology, we will review the images and reports in discuss results with patient and family At this time, difficult to determine exact pathology of his generalized weakness along with frequent falls. Patient has known degenerative disc disease in the cervical spine and likely lumbar spine. Patient also has severe neuropathy in the feet, he also has a significant vascular history with recent right carotid and neurectomy and severe stenosis involving the left carotid artery Recommend weight-bear as tolerated with walker at all times Recommend physical therapy/OT evaluation Continue patient's anti-inflammatory and gabapentin for pain control. GI and DVT prophylaxis per primary medical service Other ophthalmic medical technician recommendations We will continue to follow patient during inpatient stay Time with Patient: Less than 30
[2020-11-20 17:18] LABS: Glucose,Whole Blood 176 mg/dL (75-99)
--- NOTE | 2020-11-20 17:30 | PN ---
PROGRESS NOTE DATE OF SERVICE: 11/20/2020 INTERVAL HISTORY: This 85-year-old gentleman who was admitted with falls and weakness, has significant peripheral neuropathy. PT/OT evaluating the patient. The patient might need rehab because of unsteadiness and history of multiple falls, which makes the patient high risk for falls. No chest pain. No palpitations. No fever. PHYSICAL EXAMINATION: Alert and oriented x3. Pulse is 60, blood pressure 107/60, respirations 16, temperature 97.2, pulse ox 94% on room air. HEENT: Conjunctivae normal. NECK: No JVD. CARDIOVASCULAR system: S1, S2 muffled. Respiration: Breath sounds diminished in the bases. A few scattered rhonchi and crackles. ABDOMEN: Soft, nontender. LEGS: No edema. No swelling. NERVOUS SYSTEM: Peripheral neuropathy present. LABS: WBC 6.2, hemoglobin 12.7. ASSESSMENT: 1. History of peripheral neuropathy with gait dysfunction and multiple falls. 2. Multiple falls secondary to gait dysfunction. 3. Orthostatic hypotension. 4. Dehydration with acute renal failure with acute tubular necrosis, present on admission. 5. History of coronary artery disease, congestive heart failure. 6. History of chronic obstructive pulmonary disease. 7. Diabetes mellitus type 2. 8. Gastroesophageal reflux disease. 9. Hard of hearing, deafness. 10.Hypertension. 11.Hyperlipidemia. 12.History of memory impairment. 13.History of degenerative joint disease. 14.History of pneumonia. 15.History of fracture, L2-4. 16.History of gout. 17.History of Hernandez's esophagus. 18.History of esophageal carcinoma status post radiation chemo in 2018. 19.History of nephrolithiasis. 20.History of stomach ulcers. 21.History of recent right carotid endarterectomy. 22.History of cardiac catheterization. 23.History of degenerative joint disease. 24.FULL CODE. RECOMMENDATIONS AND DISCUSSION: Recommend to continue current medications, monitoring and symptomatic treatment. Otherwise, at this time, supplement vitamins and closely follow with Neurology. PT/OT evaluation, possible ECF rehab. The patient has also had some orthostatic hypotension. I would also recommend cardiology evaluation. MMODL / IJN: [id number] /
[2020-11-20 17:49] LABS: Folate, Serum 9.9 ng/mL
[2020-11-20 20:25] LABS: Glucose,Whole Blood 183 mg/dL (75-99)
[2020-11-20] MEDS: INSULIN DETEMIR (LEVEMIR) 100 UNIT/ML SYR SQ SCH (21:59)
[2020-11-20] MEDS: PRAVASTATIN SODIUM 80 MG TAB PO SCH (22:23)
[2020-11-21] MEDS: ZOLPIDEM 5 MG TAB PO PRN (00:47)
[2020-11-21 07:29] LABS: Glucose,Whole Blood 118 mg/dL (75-99)
[2020-11-21] MEDS: PANTOPRAZOLE 40 MG TABLET PO SCH (07:55)
[2020-11-21] MEDS: INSULIN ASPART (NovoLOG) 100 UNIT/ML VIAL SQ SCH ×2 (07:55)
--- NOTE | 2020-11-21 08:27 | P.PN ---
Subjective Progress Note Date: 11/21/20 Principal diagnosis: Generalized weakness Difficulty ambulating History of recent falls Multilevel cervical spine spondylosis Chronic low back pain History of multiple lumbar epidural steroid injections and nerve ablations Patient was evaluated today at bedside, he was resting in bed. The nursing staff was in width patient. Dr. Lilly was available today to examine the patient and discuss treatment. Patient states that his low back pain remains about the same, and has not worsened or improved significantly. Patient denies any new onset of symptoms involving the cervical spine or upper extremities. He denies any shortness of breath or chest pain. He denies any loss of bowel or bladder function. Nursing staff to discuss with us today that the patient is refusing rehab and would like to return home Objective - Vital Signs Vital signs: Vital Signs Temp 97.6 F 11/21/20 00:43 Pulse 71 11/21/20 07:41 Resp 20 11/21/20 00:43 BP 122/68 11/21/20 00:43 Pulse Ox 93 L 11/21/20 00:43 Intake & Output 11/20/20 11/21/20 11/21/20 18:59 06:59 18:59 Intake Total 500 Output Total 1700 2450 Balance -1200 -2450 Intake: Oral 500 Output: Urine 1600 1250 Uretheral (Martinez) 750 500 Post Void Residual 100 1200 Other: Voiding Method Toilet # Voids 1 3 # Bowel Movements 1 1 - Exam Gen: AOx3, NAD VSS stable at this time Integument: No obvious skin changes appreciated of the cervical, thoracic and lumbar spine. No ceramic areas of erythema, fluctuance or soft tissue swelling Palpation: Mild tenderness with palpation in the midline and paraspinal regions of the lumbar spine. No tenderness with palpation of the midline and paraspinal regions of the cervical or thoracic region. ROM: Motion intact in the bilateral upper extremities with regards to wrist extension, wrist flexion, elbow extension, elbow flexion. Forward elevation along with abduction were very difficult with patient's known history of osteoarthritis, worse on the left than right. Motion intact with hip flexion, knee extension, knee flexion, plantar flexion, dorsiflexion, EHL, FHL are bilateral lower extremities Sensory Exam: Senory exam to light touch is intact C5-T1, sensory exam is diminished slightly in the tips of the thumb, index and middle finger of the bilateral hands ][enosry exam to light touch is intact L2-S1, light touch is diminished on the plantar aspect of bilateral feet Motor: 5 out of 5 strength is appreciated in the bilateral upper extremities with both biceps and triceps testing, notable weakness with forward elevation and shoulder abduction, internal rotation and externally rotation bilaterally 4 out of 5 strength is appreciated on the left side with both hip flexion and dorsiflexion, remaining strength test in that lower extremity is 5 out of 5 5 out of 5 strength is appreciated with hip flexion, knee extension, knee flexion, plantar flexion, dorsiflexion, EHL, FHL of the right lower extremity Reflexes: Reflexes were difficult to assess in the bilateral upper and lower extremities Negative Analy's bilaterally, negative Babinski bilaterally, negative clonus bilaterally - Labs CBC & Chem 7: 11/20/20 05:31 11/20/20 05:31 Labs: Abnormal Lab Results - Last 24 Hours (Table) 11/20/20 11/20/20 11/20/20 Range/Units 05:31 05:31 05:31 Hgb 12.7 L (13.0-17.0) g/dL MCHC 30.4 L (32.0-37.0) g/dL RDW 14.7 H (11.5-14.5) % Anion Gap 13.00 H (4.00-12.00) mmol/L Est GFR (CKD-EPI)AfAm 53.5 L (60.0-200.0) Est GFR (CKD-EPI)NonAf 46.1 L (60.0-200.0) POC Glucose (mg/dL) (75-99) mg/dL Hemoglobin A1c 8.7 H (4.0-6.0) % 11/20/20 11/20/20 11/20/20 Range/Units 12:03 17:15 20:24 Hgb (13.0-17.0) g/dL MCHC (32.0-37.0) g/dL RDW (11.5-14.5) % Anion Gap (4.00-12.00) mmol/L Est GFR (CKD-EPI)AfAm (60.0-200.0) Est GFR (CKD-EPI)NonAf (60.0-200.0) POC Glucose (mg/dL) 153 H 176 H 183 H (75-99) mg/dL Hemoglobin A1c (4.0-6.0) % 11/21/20 Range/Units 07:13 Hgb (13.0-17.0) g/dL MCHC (32.0-37.0) g/dL RDW (11.5-14.5) % Anion Gap (4.00-12.00) mmol/L Est GFR (CKD-EPI)AfAm (60.0-200.0) Est GFR (CKD-EPI)NonAf (60.0-200.0) POC Glucose (mg/dL) 118 H (75-99) mg/dL Hemoglobin A1c (4.0-6.0) % Assessment and Plan Assessment: Generalized weakness Difficulty ambulating History of recent falls Multilevel cervical spine spondylosis Chronic low back pain History of multiple lumbar epidural steroid injections and nerve ablations Plan: MRI reports were reviewed and discussed with Dr. Lilly today. There were no findings to suggest an acute surgical intervention. Recommend weight-bear as tolerated with walker at all times Recommend physical therapy/OT evaluation Continue patient's anti-inflammatory and gabapentin for pain control. GI and DVT prophylaxis per primary medical service Believe that the recent falls and weakness are due to his generalized medical conditions, this included the carotid stenosis with history of recent right carotid endarterectomy along with the severe diabetic neuropathy versus acute changes in his spinal pathology Patient would benefit from home health care, mainly to utilize physical therapy. Would recommend walker with ambulation at all times. Discussed with the patient if he wished follow up with us in the outpatient setting for further evaluation and treatment, her information will be provided in the chart for that. Please contact our service there are any further questions Time with Patient: Less than 30
[2020-11-21 08:29] VITALS: BP 110/64; PULSE 66; RESP 18; TEMP 97.4
[2020-11-21] MEDS: YUPELRI 175 MCG/3 ML INHALATION SCH (09:06)
[2020-11-21] MEDS: HEPARIN SODIUM,PORCINE/PF 5,000 UNIT/0.5 ML SYRINGE SQ SCH (09:42)
[2020-11-21] MEDS: ASPIRIN 81 MG PO SCH (09:42)
[2020-11-21] MEDS: allopurinoL 300 MG TAB PO SCH (09:43)
[2020-11-21] MEDS: POTASSIUM CHLORIDE ER 10 MEQ TAB.ER.PRT PO SCH (09:43)
[2020-11-21] MEDS: METOPROLOL TARTRATE 12.5 MG TAB PO SCH (09:43)
[2020-11-21] MEDS: MELOXICAM 7.5 MG TAB PO SCH (09:43)
[2020-11-21] MEDS: buPROPion XL 300 MG TAB.ER.24H PO SCH (09:44)
[2020-11-21] MEDS: GABAPENTIN 400 MG CAP PO SCH (09:44)
[2020-11-21] MEDS: TORSEMIDE 20 MG TAB PO SCH (09:45)
[2020-11-21] MEDS: MAGNESIUM OXIDE 400 MG TAB PO SCH ×2 (09:47→11:32)
[2020-11-21] MEDS ORDERED: TAMSULOSIN 0.4 MG CAP.ER.24H PO SCH (11:15)
[2020-11-21] MEDS: FOLIC ACID 1 MG TAB PO SCH (11:32)
[2020-11-21] MEDS: MULTIVITAMINS, THERA 1 EACH TAB PO SCH (11:34)
[2020-11-21] MEDS: THIAMINE 100 MG TAB PO SCH (11:34)
--- NOTE | 2020-11-21 15:32 | P.DS ---
Providers Date of admission: 11/20/20 10:19 Expected date of discharge: 11/21/20 Attending physician: Bear Sampson Consults: 11/19/20 15:51 Consult Physician Urgent Consulting Provider: Derrick Akhtar Consult Reason/Comments: gait instabilitiy, frequent falls Do you want consulting provider notified?: Yes 11/20/20 12:05 Consult Physician Routine Consulting Provider: Dalton Lilly Consult Reason/Comments: Chronic lower back pain with recurrent falls. Do you want consulting provider notified?: Yes Primary care physician: Sumit Nunez [facility] Course: Final diagnosis History of peripheral neuropathy with gait dysfunction and multiple falls Multiple falls secondary to gait dysfunction Orthostatic hypotension Dehydration with acute renal failure with acute tubular necrosis, present on admission History of coronary disease, congestive heart failure history of chronic obstructive pulmonary disease diabetes mellitus type 2 Gastroesophageal reflux disease Hard of hearing/deafness Hypertension Hyperlipidemia History of memory impairment History of degenerative joint disease History of pneumonia History of fractures of the L24 History of gout History of Hernandez's esophagus History of esophageal carcinoma status post radiation chemo in 2018 history of nephrolithiasis History of stomach ulcers history of recent right carotid endarterectomy history of cardiac catheterization History of degenerative joint disease Full code Discharge disposition Patient is being discharged in a stable condition with guarded prognosis to home. Patient will follow-up with Dr. Nunez in the outpatient setting upon discharge. Patient will continue with [facility] in the outpatient setting. Patient will continue on Flomax 0.4 mg daily upon discharge. Prescri ptions provided and recommend repeat labs in 1-2 days to monitor CBC and BMP along with magnesium level. Total time taken is greater than 35 minutes. Hospital course This is an 85 year old male who was recently admitted with falls and weakness along with significant peripheral neuropathy and was being closely under. Patient was also seen and evaluated by orthopedic surgery underwent MRI of the lumbar spine showing moderate multilevel spondylytic changes with multilevel compression fracture with vertebral plasties with no acute fractures noted and mild spinal stenosis at L2-3 and L3-4. Orthopedic surgery not recommending any surgical interventions at this time and able to follow-up as needed outpatient. It was strongly suggested and recommended that the patient goes to rehab although patient and absolutely refuse rehab and will be taking the patient home. It is also recommended that the patient continues to use a walker with ambulation at all times. Currently no reports of chest pain, shortness of breath, or palpitations. Patient is afebrile. No reports of nausea or vomiting and patient is tolerating diet. Patient will be discharged home today. Guarded prognosis. On exam vital signs are stable. Cardio S1, S2 are muffled. Respiratory system shows diminished breath sounds at the bases with no wheezing or rhonchi noted. Abdomen is soft and nontender. Nervous system shows no focal deficits. Please refer to medication reconciliation sheet for a list of medications. Patient Condition at Discharge: Stable Plan - Discharge Summary New Discharge Prescriptions: New Folic Acid 1 mg PO DAILY@1200 30 Days #30 tab Multivitamins, Thera [Multivitamin (formulary)] 1 each PO DAILY@1200 #30 tab Thiamine [Vitamin B-1] 100 mg PO DAILY@1200 #30 tab Tamsulosin [Flomax] 0.4 mg PO PC-BRKFST 30 Days #30 cap.er.24h Continue Nitroglycerin Sl Tabs [Nitrostat] 0.4 mg SUBLINGUAL Q5M PRN PRN Reason: Chest Pain Cetirizine HCl 10 mg PO DAILY PRN PRN Reason: Allergy Symptoms Pravastatin Sodium [Pravachol] 80 mg PO HS Ipratropium-Albuterol Nebulize [Duoneb 0.5 mg-3 mg/3 ml Soln] 3 ml INHALATION RT-Q6H PRN PRN Reason: Shortness Of Breath Acetaminophen Tab [Tylenol] 650 mg PO Q4HR PRN tab PRN Reason: Fever And/ Or Pain Insulin Glargine [Lantus] 20 unit SQ HS Aspirin 81 mg PO DAILY chew allopurinoL [Zyloprim] 300 mg PO DAILY Meloxicam [Mobic] 7.5 mg PO DAILY Magnesium Oxide 400 mg PO BID Omeprazole [PriLOSEC] 40 mg PO BID Gabapentin [Neurontin] 400 mg PO DAILY Torsemide [Demadex] 100 mg PO DAILY Potassium Chloride 10 meq PO BID Metoprolol Tartrate 12.5 mg PO QAM Gabapentin [Neurontin] 800 mg PO HS Zolpidem [Ambien] 10 mg PO HS PRN PRN Reason: Insomnia Insulin Lispro [humaLOG Kwikpen] See Protocol SQ TID-W/MEALS PRN PRN Reason: HYPERGLYCEMIA Insulin Lispro [humaLOG Kwikpen] 10 unit SQ TID Yupelri 175mcg/3ml Solution 1 inhalation INHALATION RT-DAILY buPROPion HCL [Wellbutrin XL] 300 mg PO DAILY Diclofenac Sodium Gel [Voltaren Gel] 4 gm TOPICAL QID PRN PRN Reason: Pain Discharge Medication List Cetirizine HCl 10 mg PO DAILY PRN 07/05/15 [History] Nitroglycerin Sl Tabs [Nitrostat] 0.4 mg SUBLINGUAL Q5M PRN 07/05/15 [History] Pravastatin Sodium [Pravachol] 80 mg PO HS 09/01/17 [History] Ipratropium-Albuterol Nebulize [Duoneb 0.5 mg-3 mg/3 ml Soln] 3 ml INHALATION RT-Q6H PRN 07/29/19 [History] Acetaminophen Tab [Tylenol] 650 mg PO Q4HR PRN tab 08/03/19 [Rx] Insulin Glargine [Lantus] 20 unit SQ HS 08/17/19 [History] Aspirin 81 mg PO DAILY chew 08/23/19 [Rx] Gabapentin [Neurontin] 400 mg PO DAILY 11/24/19 [History] Gabapentin [Neurontin] 800 mg PO HS 11/24/19 [History] Magnesium Oxide 400 mg PO BID 11/24/19 [History] Meloxicam [Mobic] 7.5 mg PO DAILY 11/24/19 [History] Metoprolol Tartrate 12.5 mg PO QAM 11/24/19 [History] Omeprazole [PriLOSEC] 40 mg PO BID 11/24/19 [History] Potassium Chloride 10 meq PO BID 11/24/19 [History] Torsemide [Demadex] 100 mg PO DAILY 11/24/19 [History] allopurinoL [Zyloprim] 300 mg PO DAILY 11/24/19 [History] Zolpidem [Ambien] 10 mg PO HS PRN 01/13/20 [History] Insulin Lispro [humaLOG Kwikpen] See Protocol SQ TID-W/MEALS PRN 06/28/20 [History] Diclofenac Sodium Gel [Voltaren Gel] 4 gm TOPICAL QID PRN 11/19/20 [History] Insulin Lispro [humaLOG Kwikpen] 10 unit SQ TID 11/19/20 [History] Yupelri 175mcg/3ml Solution 1 inhalation INHALATION RT-DAILY 11/19/20 [History] buPROPion HCL [Wellbutrin XL] 300 mg PO DAILY 11/19/20 [History] Folic Acid 1 mg PO DAILY@1200 30 Days #30 tab 11/21/20 [Rx] Multivitamins, Thera [Multivitamin (formulary)] 1 each PO DAILY@1200 #30 tab 11/21/20 [Rx] Tamsulosin [Flomax] 0.4 mg PO PC-BRKFST 30 Days #30 cap.er.24h 11/21/20 [Rx] Thiamine [Vitamin B-1] 100 mg PO DAILY@1200 #30 tab 11/21/20 [Rx] Follow up Appointment(s)/Referral(s): [facility], [NON-STAFF] - 1-2 Days Sumit Nunez DO [Primary Care Provider] - 1-2 days Ambulatory/Diagnostic Orders: Complete Blood Count w/diff [LAB.AMB] Time Frame: 2 Days, Location: None Selected Patient Instructions/Handouts: Near Syncope (DC), Fall Prevention (DC) Activity/Diet/Wound Care/Special Instructions: Activity Limited until follow-up Follow-up with primary care provider upon discharge Repeat labs in 2-3 days Continue medications as prescribed Continue current diet Discharge Disposition: HOME WITH HOME HEALTH SERVICES
== END 2020-11-21 12:05 | disposition home health service (06) | DRG 73 ==
LOC: EC 12:15 → INTOOBSV 16:27 → 6NMEDSUR 16:27 → OBSVTOIN 11-20 10:19
PROVIDERS: ADMIT Hospitalist; ATTEND Hospitalist
DX: E11.40 Type 2 diabetes mellitus with diabetic neuropathy, unspecified (principal); N17.0 Acute kidney failure with tubular necrosis; I13.0 Hypertensive heart and chronic kidney disease with heart failure and stage 1 through stage 4 chronic kidney disease, or unspecified chronic kidney disease; E78.5 Hyperlipidemia, unspecified; E86.0 Dehydration; G89.29 Other chronic pain; I25.10 Atherosclerotic heart disease of native coronary artery without angina pectoris; I50.9 Heart failure, unspecified; J44.9 Chronic obstructive pulmonary disease, unspecified; K21.9 Gastro-esophageal reflux disease without esophagitis; M19.011 Primary osteoarthritis, right shoulder; Z96.619 Presence of unspecified artificial shoulder joint; Z92.3 Personal history of irradiation; Z92.21 Personal history of antineoplastic chemotherapy; Z91.81 History of falling; Z87.442 Personal history of urinary calculi; Z87.11 Personal history of peptic ulcer disease; Z87.01 Personal history of pneumonia (recurrent); Z85.01 Personal history of malignant neoplasm of esophagus; Z79.899 Other long term (current) drug therapy; Z79.82 Long term (current) use of aspirin; Z79.4 Long term (current) use of insulin; Z79.1 Long term (current) use of non-steroidal anti-inflammatories (NSAID); K44.9 Diaphragmatic hernia without obstruction or gangrene; M19.90 Unspecified osteoarthritis, unspecified site; M47.816 Spondylosis without myelopathy or radiculopathy, lumbar region; M51.36 Other intervertebral disc degeneration, lumbar region; M54.17 Radiculopathy, lumbosacral region; M54.5 Low back pain; M10.9 Gout, unspecified; N18.9 Chronic kidney disease, unspecified; R29.6 Repeated falls; M47.812 Spondylosis without myelopathy or radiculopathy, cervical region; M19.012 Primary osteoarthritis, left shoulder; H91.90 Unspecified hearing loss, unspecified ear; I95.1 Orthostatic hypotension
CPT/HCPCS: 36415; 70450; 71045; 72125; 72148; 80048; 80053; 80171; 81003; 82607; 82746; 83036; 83735; 84207; 85025; 85610; 85730; 87635; 99285

== ENCOUNTER 2020-12-10 10:07 | Inpatient (IN) | payer MEDICARE ==
[2020-12-10] MEDS ORDERED: SODIUM CHLORIDE 0.9% 1,000 ML IV STA ×3 (10:10→13:27)
[2020-12-10 10:15] LABS: Glucose,Whole Blood 93 mg/dL (75-99)
--- NOTE | 2020-12-10 10:16 | ED ---
General Adult HPI - General Chief complaint: Weakness Stated complaint: weak Time Seen by Provider: 12/10/20 10:10 Source: patient, EMS, RN notes reviewed Mode of arrival: EMS Limitations: no limitations - History of Present Illness Initial comments: Patient is a pleasant 85-year-old male presenting to the emergency department with generalized weakness. Symptoms have progressed over the past few days. Patient has had some dizziness described as lightheadedness. Patient has fallen a proximal he 4 times. Patient denies feeling dizzy at this time. Patient also has had several episodes of emesis with decreased oral intake. Patient does not feel confused. Patient denies any isolated area of weakness. No chest pain. - Related Data Home Medications Medication Instructions Recorded Confirmed Cetirizine HCl 10 mg PO DAILY 07/05/15 12/10/20 Pravastatin Sodium [Pravachol] 80 mg PO HS 09/01/17 12/10/20 Ipratropium-Albuterol Nebulize 3 ml INHALATION RT-Q6H 07/29/19 12/10/20 [Duoneb 0.5 mg-3 mg/3 ml Soln] Insulin Glargine [Lantus] 20 unit SQ HS 08/17/19 12/10/20 Gabapentin [Neurontin] 400 mg PO BID-W/MEALS 11/24/19 12/10/20 Gabapentin [Neurontin] 800 mg PO HS 11/24/19 12/10/20 Magnesium Oxide 400 mg PO BID 11/24/19 12/10/20 Meloxicam [Mobic] 7.5 mg PO DAILY 11/24/19 12/10/20 Omeprazole [PriLOSEC] 40 mg PO BID 11/24/19 12/10/20 Potassium Chloride 10 meq PO BID 11/24/19 12/10/20 Torsemide [Demadex] 100 mg PO DAILY 11/24/19 12/10/20 allopurinoL [Zyloprim] 300 mg PO DAILY 11/24/19 12/10/20 Zolpidem [Ambien] 10 mg PO HS 01/13/20 12/10/20 Insulin Lispro [humaLOG Kwikpen] See Protocol SQ TID-W/MEALS PRN 06/28/20 12/10/20 Insulin Lispro [humaLOG Kwikpen] 10 unit SQ AC-TID 11/19/20 12/10/20 Yupelri 175mcg/3ml Solution 175 mcg INHALATION RT-DAILY 11/19/20 12/10/20 buPROPion HCL [Wellbutrin XL] 300 mg PO DAILY 11/19/20 12/10/20 Acetaminophen [Tylenol 8 Hour] 650 mg PO Q4H PRN 12/10/20 12/10/20 Folic Acid 1 mg PO DAILY 12/10/20 12/10/20 Meclizine HCl 12.5 - 25 mg PO DAILY PRN 12/10/20 12/10/20 Midodrine HCl [ProAmantine] 2.5 mg PO BID 12/10/20 12/10/20 ondansetron HCL [Zofran] 8 mg PO Q6H PRN 12/10/20 12/10/20 Previous Rx's Medication Instructions Recorded Aspirin 81 mg PO DAILY chew 08/23/19 Allergies Allergy/AdvReac Type Severity Reaction Status Date / Time latex Allergy Rash/Hives Verified 11/19/20 16:51 penicillin G Allergy Rash/Hives Verified 11/19/20 16:51 Review of Systems ROS Statement: Those systems with pertinent positive or pertinent negative responses have been documented in the HPI. ROS Other: All systems not noted in ROS Statement are negative. Constitutional: Denies: fever Eyes: Denies: eye pain ENT: Denies: ear pain Respiratory: Denies: cough Cardiovascular: Denies: chest pain Endocrine: Denies: fatigue Gastrointestinal: Reports: nausea, vomiting. Denies: abdominal pain Genitourinary: Denies: dysuria Musculoskeletal: Denies: back pain Skin: Denies: rash Neurological: Reports: as per HPI. Denies: headache Past Medical History Past Medical History: Cancer, Heart Failure, COPD, Diabetes Mellitus, GERD/Reflux, Hearing Disorder / Deafness, Hyperlipidemia, Hypertension, Memory Impairment, Osteoarthritis (OA), Pneumonia, Renal Disease Additional Past Medical History / Comment(s): Fractures L2-L4 w/ paul[place] leg pain, DDD, Gout, CARDOSO'S esophagus, Esophageal CA-completed 28 radiation tx on 09/08/17, & 5 chemo tx 09/02/17. 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 ,see Dr Albrecht H&P, chronic kidney disease History of Any Multi-Drug Resistant Organisms: None Reported Past Surgical History: Back Surgery, Heart Catheterization, Hernia Repair, Orthopedic Surgery Additional Past Surgical History / Comment(s): Bilateral rotator cuff surgery, left foot surgery, thinks he has plate and screws, "esophagus radiofrequency ablation", paulina cataracts-lens implants, kyphoplasty. Pain procedures. Epidural steroid injection in back. Past Anesthesia/Blood Transfusion Reactions: No Reported Reaction Additional Past Anesthesia/Blood Transfusion Reaction / Comment(s): . Past Psychological History: No Psychological Hx Reported Smoking Status: Never smoker Past Alcohol Use History: Rare Additional Past Alcohol Use History / Comment(s): . Past Drug Use History: None Reported - Past Family History Mother Family Medical History: Cancer Additional Family Medical History / Comment(s): Kidney, Thyroid cancer. Father Family Medical History: Coronary Artery Disease (CAD) Additional Family Medical History / Comment(s): AT AGE 53. General Exam Limitations: no limitations General appearance: alert, in no apparent distress Head exam: Present: other (Facial abrasion without bony tenderness) Eye exam: Present: normal appearance, PERRL, EOMI ENT exam: Present: mucous membranes dry Neck exam: Present: normal inspection. Absent: tenderness Respiratory exam: Present: normal lung sounds bilaterally Cardiovascular Exam: Present: regular rate, normal rhythm GI/Abdominal exam: Present: soft. Absent: distended, tenderness, pulsatile mass Extremities exam: Present: normal inspection, full ROM. Absent: tenderness Back exam: Present: normal inspection Neurological exam: Present: alert, CN II-XII intact. Absent: motor sensory deficit Expanded Patient oriented to: Present: person, place (Patient aware he is in the [facility] however believes he is in the [facility]), time (Patient states the year is either 2019 or 2020) Speech: Present: fluid speech Cranial nerves: EOM's Intact: Normal Sensory exam: Upper Extremity Light Touch: Normal, Lower Extremity Light Touch: Normal Motor strength exam: RUE: 5, LUE: 5, RLE: 5, LLE: 5 Eye Response: (4) open spontaneously Motor Response: (6) obeys commands Verbal Response: (4) confused conversation Psychiatric exam: Present: normal affect, normal mood Skin exam: Present: abrasion (Facial abrasion) Course Vital Signs 12/10/20 12/10/20 12/10/20 10:08 10:33 11:18 Temperature 97.6 F Pulse Rate 80 72 70 Respiratory 18 18 16 Rate Blood Pressure 75/49 86/54 78/51 O2 Sat by Pulse 88 L 92 L 94 L Oximetry 12/10/20 12/10/20 12/10/20 11:57 12:47 12:55 Temperature Pulse Rate 70 64 71 Respiratory 16 16 16 Rate Blood Pressure 103/90 77/61 83/55 O2 Sat by Pulse 94 L 93 L 95 Oximetry 12/10/20 12/10/20 13:18 13:54 Temperature 97.8 F Pulse Rate 68 69 Respiratory 16 18 Rate Blood Pressure 92/51 77/53 O2 Sat by Pulse 95 92 L Oximetry - Reevaluation(s) Reevaluation #1: 12/10/20 13:00 Patient reevaluated and remains with labile blood pressure. Additional fluids ordered. Pulmonary and cardiac to paged. Family and patient updated 12/10/20 13:31 Patient does meet criteria for septic shock diagnosed at 1330. Blood culture and lactic acid ordered. IV antibiotics ordered. Fluid bolus greater than 30 mL/kg has been ordered. Case was discussed in detail with Dr. Person who did review chart and x-ray. He states if blood pressure is obtained patient can be placed on the floor otherwise agrees with intensive care unit. Case also discussed with practitioner Citlali from cardiology, who will consult. 12/10/20 14:17 Case was earlier discussed with Dr. Sampson who will admit covering for Dr. Kerline patel. Patient has again become hypotensive. Central line placed and pressors ordered. EKG Findings - EKG Comments: EKG Findings:: Neuro complex rhythm without definitive P waves, regular. Rate 81. QRS 92. QT 394. QTC 457. Normal axis. Normal QRS. No acute ST change. Procedures - Central Line Placement Right Femoral Consent Obtained: verbal consent, written consent Prep: mask, gown, gloves Central Line Prep: Povidone-Iodine 1% Local Anesthesia Used: Lidocaine 1% Amount of Anesthesia Used (mls): 2 Ultrasound Used for Placement: No Central Line Lumen Inserted: triple Central Line Position: good blood return, all ports aspirated, flushed, capped, sutured in place with 3-0 nylon Dressing Applied: Tegaderm Patient Tolerated Procedure: well Complications: none - Sepsis Sepsis Focused Exam #1 Time Sepsis Criteria Met: 13:30 Sepsis Focused Exam Date: 12/10/20 Sepsis Focused Exam Time: 14:16 Sepsis Focused Exam Complete: Yes Vital Signs & RN Notes Reviewed: Yes Capillary Refill: < 2 Seconds: Fingers, Toes Peripheral Pulses: Normal: Radial (R), Radial (L) Skin Color: Normal for Patient Respiratory Exam: normal lung sounds Cardiovascular Exam: regular rate, normal rhythm Medical Decision Making - Lab Data Result diagrams: 12/10/20 10:20 12/10/20 10:20 Lab Results 12/10/20 12/10/20 12/10/20 Range/Units 10:12 10:20 10:20 WBC 17.6 H (3.8-10.6) k/uL RBC 4.56 (4.30-5.90) m/uL Hgb 13.5 (13.0-17.5) gm/dL Hct 42.7 (39.0-53.0) % MCV 93.5 (80.0-100.0) fL MCH 29.6 (25.0-35.0) pg MCHC 31.6 (31.0-37.0) g/dL RDW 15.3 (11.5-15.5) % Plt Count 192 (150-450) k/uL MPV 8.5 Neutrophils % 90 % Lymphocytes % 5 % Monocytes % 3 % Eosinophils % 0 % Basophils % 0 % Neutrophils # 15.8 H (1.3-7.7) k/uL Lymphocytes # 0.9 L (1.0-4.8) k/uL Monocytes # 0.6 (0-1.0) k/uL Eosinophils # 0.0 (0-0.7) k/uL Basophils # 0.1 (0-0.2) k/uL PT 10.9 (9.0-12.0) sec INR 1.0 (<1.2) APTT 25.7 (22.0-30.0) sec Sodium (137-145) mmol/L Potassium (3.5-5.1) mmol/L Chloride (98-107) mmol/L Carbon Dioxide (22-30) mmol/L Anion Gap mmol/L BUN (9-20) mg/dL Creatinine (0.66-1.25) mg/dL Est GFR (CKD-EPI)AfAm (>60 ml/min/1.73 sqM) Est GFR (CKD-EPI)NonAf (>60 ml/min/1.73 sqM) Glucose (74-99) mg/dL POC Glucose (mg/dL) 93 (75-99) mg/dL POC Glu [employer] ID Won Sr Lactic Ac Sepsis Rflx Plasma Lactic Acid Nestor (0.7-2.0) mmol/L Calcium (8.4-10.2) mg/dL Phosphorus (2.5-4.5) mg/dL Magnesium (1.6-2.3) mg/dL Total Bilirubin (0.2-1.3) mg/dL AST (17-59) U/L ALT (4-49) U/L Alkaline Phosphatase (38-126) U/L Creatine Kinase (55-170) U/L Troponin I (0.000-0.034) ng/mL NT-Pro-B Natriuret Pep pg/mL Total Protein (6.3-8.2) g/dL Albumin (3.5-5.0) g/dL TSH (0.465-4.680) mIU/L Free T4 (0.78-2.19) ng/dL Free T3 pg/mL (2.8-5.3) pg/ml Urine Color Urine Appearance (Clear) Urine pH (5.0-8.0) Ur Specific [place] (1.001-1.035) Urine Protein (Negative) Urine Glucose (UA) (Negative) Urine Ketones (Negative) Urine Blood (Negative) Urine Nitrite (Negative) Urine Bilirubin (Negative) Urine Urobilinogen (<2.0) mg/dL Ur Leukocyte Esterase (Negative) Coronavirus (PCR) (Not Detectd) 12/10/20 12/10/20 12/10/20 Range/Units 10:20 10:20 10:20 WBC (3.8-10.6) k/uL RBC (4.30-5.90) m/uL Hgb (13.0-17.5) gm/dL Hct (39.0-53.0) % MCV (80.0-100.0) fL MCH (25.0-35.0) pg MCHC (31.0-37.0) g/dL RDW (11.5-15.5) % Plt Count (150-450) k/uL MPV Neutrophils % % Lymphocytes % % Monocytes % % Eosinophils % % Basophils % % Neutrophils # (1.3-7.7) k/uL Lymphocytes # (1.0-4.8) k/uL Monocytes # (0-1.0) k/uL Eosinophils # (0-0.7) k/uL Basophils # (0-0.2) k/uL PT (9.0-12.0) sec INR (<1.2) APTT (22.0-30.0) sec Sodium 139 (137-145) mmol/L Potassium 4.8 (3.5-5.1) mmol/L Chloride 99 (98-107) mmol/L Carbon Dioxide 29 (22-30) mmol/L Anion Gap 11 mmol/L BUN 36 H (9-20) mg/dL Creatinine 2.00 H (0.66-1.25) mg/dL Est GFR (CKD-EPI)AfAm 35 (>60 ml/min/1.73 sqM) Est GFR (CKD-EPI)NonAf 30 (>60 ml/min/1.73 sqM) Glucose 104 H (74-99) mg/dL POC Glucose (mg/dL) (75-99) mg/dL POC Glu [employer] ID Lactic Ac Sepsis Rflx Plasma Lactic Acid Nestor 4.4 H* (0.7-2.0) mmol/L Calcium 8.6 (8.4-10.2) mg/dL Phosphorus 4.2 (2.5-4.5) mg/dL Magnesium 2.7 H (1.6-2.3) mg/dL Total Bilirubin 1.2 (0.2-1.3) mg/dL AST 41 (17-59) U/L ALT 23 (4-49) U/L Alkaline Phosphatase 104 (38-126) U/L Creatine Kinase 49 L (55-170) U/L Troponin I (0.000-0.034) ng/mL NT-Pro-B Natriuret Pep pg/mL Total Protein 6.6 (6.3-8.2) g/dL Albumin 3.4 L (3.5-5.0) g/dL TSH 2.980 (0.465-4.680) mIU/L Free T4 1.02 (0.78-2.19) ng/dL Free T3 pg/mL 2.5 L (2.8-5.3) pg/ml Urine Color Light Yellow Urine Appearance Clear (Clear) Urine pH 7.5 (5.0-8.0) Ur Specific [place] 1.007 (1.001-1.035) Urine Protein Negative (Negative) Urine Glucose (UA) Negative (Negative) Urine Ketones Negative (Negative) Urine Blood Negative (Negative) Urine Nitrite Negative (Negative) Urine Bilirubin Negative (Negative) Urine Urobilinogen <2.0 (<2.0) mg/dL Ur Leukocyte Esterase Negative (Negative) Coronavirus (PCR) (Not Detectd) 12/10/20 12/10/20 12/10/20 Range/Units 10:20 10:20 11:20 WBC (3.8-10.6) k/uL RBC (4.30-5.90) m/uL Hgb (13.0-17.5) gm/dL Hct (39.0-53.0) % MCV (80.0-100.0) fL MCH (25.0-35.0) pg MCHC (31.0-37.0) g/dL RDW (11.5-15.5) % Plt Count (150-450) k/uL MPV Neutrophils % % Lymphocytes % % Monocytes % % Eosinophils % % Basophils % % Neutrophils # (1.3-7.7) k/uL Lymphocytes # (1.0-4.8) k/uL Monocytes # (0-1.0) k/uL Eosinophils # (0-0.7) k/uL Basophils # (0-0.2) k/uL PT (9.0-12.0) sec INR (<1.2) APTT (22.0-30.0) sec Sodium (137-145) mmol/L Potassium (3.5-5.1) mmol/L Chloride (98-107) mmol/L Carbon Dioxide (22-30) mmol/L Anion Gap mmol/L BUN (9-20) mg/dL Creatinine (0.66-1.25) mg/dL Est GFR (CKD-EPI)AfAm (>60 ml/min/1.73 sqM) Est GFR (CKD-EPI)NonAf (>60 ml/min/1.73 sqM) Glucose (74-99) mg/dL POC Glucose (mg/dL) (75-99) mg/dL POC Glu [employer] ID Lactic Ac Sepsis Rflx Y Plasma Lactic Acid Nestor (0.7-2.0) mmol/L Calcium (8.4-10.2) mg/dL Phosphorus (2.5-4.5) mg/dL Magnesium (1.6-2.3) mg/dL Total Bilirubin (0.2-1.3) mg/dL AST (17-59) U/L ALT (4-49) U/L Alkaline Phosphatase (38-126) U/L Creatine Kinase (55-170) U/L Troponin I 0.457 H* (0.000-0.034) ng/mL NT-Pro-B Natriuret Pep 552 pg/mL Total Protein (6.3-8.2) g/dL Albumin (3.5-5.0) g/dL TSH (0.465-4.680) mIU/L Free T4 (0.78-2.19) ng/dL Free T3 pg/mL (2.8-5.3) pg/ml Urine Color Urine Appearance (Clear) Urine pH (5.0-8.0) Ur Specific [place] (1.001-1.035) Urine Protein (Negative) Urine Glucose (UA) (Negative) Urine Ketones (Negative) Urine Blood (Negative) Urine Nitrite (Negative) Urine Bilirubin (Negative) Urine Urobilinogen (<2.0) mg/dL Ur Leukocyte Esterase (Negative) Coronavirus (PCR) (Not Detectd) 12/10/20 Range/Units 11:23 WBC (3.8-10.6) k/uL RBC (4.30-5.90) m/uL Hgb (13.0-17.5) gm/dL Hct (39.0-53.0) % MCV (80.0-100.0) fL MCH (25.0-35.0) pg MCHC (31.0-37.0) g/dL RDW (11.5-15.5) % Plt Count (150-450) k/uL MPV Neutrophils % % Lymphocytes % % Monocytes % % Eosinophils % % Basophils % % Neutrophils # (1.3-7.7) k/uL Lymphocytes # (1.0-4.8) k/uL Monocytes # (0-1.0) k/uL Eosinophils # (0-0.7) k/uL Basophils # (0-0.2) k/uL PT (9.0-12.0) sec INR (<1.2) APTT (22.0-30.0) sec Sodium (137-145) mmol/L Potassium (3.5-5.1) mmol/L Chloride (98-107) mmol/L Carbon Dioxide (22-30) mmol/L Anion Gap mmol/L BUN (9-20) mg/dL Creatinine (0.66-1.25) mg/dL Est GFR (CKD-EPI)AfAm (>60 ml/min/1.73 sqM) Est GFR (CKD-EPI)NonAf (>60 ml/min/1.73 sqM) Glucose (74-99) mg/dL POC Glucose (mg/dL) (75-99) mg/dL POC Glu [employer] ID Lactic Ac Sepsis Rflx Plasma Lactic Acid Nestor (0.7-2.0) mmol/L Calcium (8.4-10.2) mg/dL Phosphorus (2.5-4.5) mg/dL Magnesium (1.6-2.3) mg/dL Total Bilirubin (0.2-1.3) mg/dL AST (17-59) U/L ALT (4-49) U/L Alkaline Phosphatase (38-126) U/L Creatine Kinase (55-170) U/L Troponin I (0.000-0.034) ng/mL NT-Pro-B Natriuret Pep pg/mL Total Protein (6.3-8.2) g/dL Albumin (3.5-5.0) g/dL TSH (0.465-4.680) mIU/L Free T4 (0.78-2.19) ng/dL Free T3 pg/mL (2.8-5.3) pg/ml Urine Color Urine Appearance (Clear) Urine pH (5.0-8.0) Ur Specific [place] (1.001-1.035) Urine Protein (Negative) Urine Glucose (UA) (Negative) Urine Ketones (Negative) Urine Blood (Negative) Urine Nitrite (Negative) Urine Bilirubin (Negative) Urine Urobilinogen (<2.0) mg/dL Ur Leukocyte Esterase (Negative) Coronavirus (PCR) Not Detected (Not Detectd) - Radiology Data Radiology results: report reviewed (Computed tomography scan the brain reveals no acute process), image reviewed (Chest x-ray does show some interstitial change, correlate for congestive heart failure, underlying infection not excluded.) Critical Care Time Critical Care Time: Yes Total Critical Care Time: 44 Disposition Clinical Impression: Pneumonia, Septic shock Disposition: ADMITTED IP TO THIS [facility] Condition: Serious Is patient prescribed a controlled substance at d/c from ED?: No Referrals: Sumit Dozier DO [Primary Care Provider] - 1-2 days Decision Time: 13:33
[2020-12-10 10:46] LABS: Partial Thromboplastin Time 25.7 sec (22.0-30.0); Prothrombin Time 10.9 sec (9.0-12.0)
--- NOTE | 2020-12-10 10:56 | CT ---
EXAMINATION TYPE: CT brain wo con DATE OF EXAM: 12/10/2020 COMPARISON: 11/19/2020 HISTORY: weakness CT DLP: 1094.4 mGycm Automated exposure control for dose reduction was used. FINDINGS: Extensive changes of chronic sinusitis. Question previous sinus surgery. Dense atherosclerotic change of the vasculature. Moderate to severe generalized degenerative change of the slightly greater centr al component. Low-attenuation the white matter is nonspecific. There is no midline shift or mass effe ct. No acute hemorrhage. IMPRESSION: 1. DEGENERATIVE AND NONSPECIFIC WHITE MATTER CHANGE MOST TYPICAL REMOTE ISCHEMIC CHANGE. 2. NO ACUTE HEMORRHAGE OR MASS EFFECT. 3. EXTENSIVE CHANGES OF CHRONIC SINUSITIS.
[2020-12-10 10:59] LABS: Albumin 3.4 g/dL (3.5-5.0); Calcium 8.6 mg/dL (8.4-10.2); Magnesium 2.7 mg/dL (1.6-2.3); Phosphorus 4.2 mg/dL (2.5-4.5); Potassium 4.8 mmol/L (3.5-5.1); Total Bilirubin 1.2 mg/dL (0.2-1.3); Total Protein 6.6 g/dL (6.3-8.2)
[2020-12-10] MEDS ORDERED: SODIUM CHLORIDE 0.9% 500 ML 500 ML IV STA ×2 (10:59→12:52)
[2020-12-10 11:03] LABS: Basophils # (A) 0.1 k/uL (0-0.2); Basophils % (A) 0 %; Eosinophils % (A) 0 %; HCT 42.7 % (39.0-53.0); HGB 13.5 gm/dL (13.0-17.5); Lymphocytes # (A) 0.9 k/uL (1.0-4.8); Lymphocytes % (A) 5 %; MCH 29.6 pg (25.0-35.0); MCHC 31.6 g/dL (31.0-37.0); MCV 93.5 fL (80.0-100.0); Mean Platelet Volume 8.5; Monocytes # (A) 0.6 k/uL (0-1.0); Monocytes % (A) 3 %; Neutrophils # (A) 15.8 k/uL (1.3-7.7); Neutrophils % (A) 90 %; Platelet Count 192 k/uL (150-450); RBC 4.56 m/uL (4.30-5.90); RDW 15.3 % (11.5-15.5); WBC 17.6 k/uL (3.8-10.6)
[2020-12-10 11:15] LABS: T4, Free (Free Thyroxine) 1.02 ng/dL (0.78-2.19)
[2020-12-10 11:37] LABS: Appearance,Urine Clear (Clear); Bilirubin,Urine Negative (Negative); Blood,Urine Negative (Negative); Color,Urine Light Yellow; Glucose,Urine (UA) Negative (Negative); Ketones,Urine Negative (Negative); Leukocyte Esterase,Urine Negative (Negative); Nitrite,Urine Negative (Negative); PH, Urine 7.5 (5.0-8.0); Protein,Urine Negative (Negative); Specific Gravity,Urine 1.007 (1.001-1.035); Urobilinogen,Urine <2.0 mg/dL (<2.0)
--- NOTE | 2020-12-10 11:39 | XR ---
EXAMINATION TYPE: XR chest 2V DATE OF EXAM: 12/10/2020 COMPARISON: 11/19/2020 HISTORY: Weakness and vomiting starting yesterday TECHNIQUE: Frontal and lateral views of the chest are obtained. FINDINGS: Heart size is enlarged. Low lung volumes. Perihilar and interstitial airspace opacities robles ggestive of edema. Patchy bibasilar airspace opacities suggestive of edema or infection. Small bilate ral pleural effusions. Findings are suggestive of congestive heart failure. Underlying infection is n ot excluded. Degenerative changes and osteopenia. IMPRESSION: 1. Findings are suggestive of congestive heart failure. Underlying superimposed infection is not excl uded.
[2020-12-10] MEDS ORDERED: METOCLOPRAMIDE 5 MG/ML 2 ML VIAL IVP STA (11:41)
[2020-12-10] MEDS ORDERED: CEFEPIME 2 GM in SODIUM CHLORIDE 0.9% 100 ML IVPB STA (13:30)
[2020-12-10] MEDS ORDERED: PNEUMONIA PROTOCOL UTILIZED 1 EACH MISC PO PRN (13:30)
[2020-12-10] MEDS ORDERED: AZITHROMYCIN 500 MG in SODIUM CHLORIDE 0.9% 250 ML IVPB STA (13:30)
[2020-12-10] MEDS ORDERED: HEPARIN SODIUM 1,000 UN/ML (10ML VL) IV ONE (13:33)
[2020-12-10] MEDS ORDERED: NITROGLYCERIN SL TABS 0.4 MG TAB SUBLINGUAL PRN (13:33)
[2020-12-10] MEDS ORDERED: ASPIRIN 81 MG PO STA (13:33)
[2020-12-10] MEDS: HEPARIN SOD,PORK IN 0.45% NACL 25,000 UNIT in 0.45% NACL 1 250ML.BAG IV SCH (14:23)
[2020-12-10] MEDS: NOREPINEPHRINE 32 MG in SODIUM CHLORIDE 0.9% 218 ML IV SCH (14:50)
--- NOTE | 2020-12-10 15:16 | P.CRDCN ---
History of Present Illness Consult date: 12/10/20 History of present illness: HISTORY OF PRESENT ILLNESS: This is a 85-year-old male with a past medical history significant for hypertension, hyperlipidemia, CHF, peripheral vascular disease, carotid stenosis, aortic stenosis, and diabetes mellitus. Patient follows in the office with Dr. Albrecht. We have been asked to see the patient in consultation for elevated troponin. Patient examined at the bedside in the emergency room. Patient presented to the hospital secondary to nausea and vomiting times one week and generalized weakness. Patients and daughter at the bedside and provided additional history. Patient was recently hospitalized 1 month ago secondary to frequent falls. Patients states that they saw Dr. Albrecht about a week ago and he was placed on Midodrine. Patient was found to have elevated lactic acid and leukocytosis upon presentation to the emergency room. He is hypotensive. He had a central line placed and vasopressor support is to begin. Patient denies having any chest pain or pressure. He denies any pain in his arm, back, or shoulder. He denies any shortness of breath. He denies having fever or chills at home. Patients also gives history that patient had a right carotid enterectomy about a month ago performed in [place]. EKG reveals accelerated junctional Chest xray findings are suggestive of congestive heart failure. Underlying superimposed infection not excluded. Laboratory data: WBC 17.6. Hemoglobin 13.5. Platelet count 192. Sodium 139. Potassium 4.8. BUN 36. Creatinine 2.0. Current home cardiac medications include Demadex 100 mg daily, pravastatin 80 mg daily, aspirin 81 mg daily, and Midodrine 2.5 mg twice a day Most recent echocardiogram obtained in 2019 revealed ejection fraction 55-60% with moderate aortic stenosis REVIEW OF SYSTEMS: At the time of my exam: CONSTITUTIONAL: Denies fever or chills. Reports frequent falls at home over the past week. Reports generalized weakness. HEENT: Denies blurred vision, vision changes, or eye pain. Denies hemoptysis CARDIOVASCULAR: Denies chest pain. Denies orthopnea. Denies PND. Denies palpitations RESPIRATORY: Denies shortness of breath. GASTROINTESTINAL: Denies abdominal pain. Reports nausea and vomiting 1 week HEMATOLOGIC: Denies bleeding disorders. GENITOURINARY: Denies any blood in urine. SKIN: Denies pruitis. Denies rash. PHYSICAL EXAM: VITAL SIGNS: Reviewed. GENERAL: Well-developed in no acute distress. HEENT: Head is normocephalic. Pupils are equal, round. Sclerae anicteric. Mucous membranes of the mouth are moist. Neck supple. No JVD or thyromegaly LUNGS: Respirations even and unlabored. Lungs diminished bilaterally. HEART: Regular rate and rhythm. S1 and S2 heard. Systolic murmur noted. ABDOMEN: Soft. Nondistended. Nontender. EXTREMITIES: Normal range of motion. No clubbing or cyanosis. Peripheral pulses intact. Trace bilateral lower extremity edema with chronic discoloration to extremities NEUROLOGIC: Awake and alert. Oriented x 3. ASSESSMENT: Generalized weakness Nausea and vomiting 1 week Leukocytosis Hypotension requiring vasopressor support Acute kidney injury Abnormal troponin, likely secondary to infectious process and/or acute kidney injury Chronic diastolic heart failure Aortic stenosis Hypertension Hyperlipidemia History of carotid stenosis with recent right carotid endarterectomy Peripheral vascular disease PLAN: Obtain 2D echo to assess cardiac structure and function Trend troponins Continue IV heparin Continue aspirin 81mg daily. Add Lipitor 80mg daily. Monitor blood pressure Further recommendations pending patient course Nurse practitioner note has been reviewed by physician. Signing provider agrees with the documented findings, assessment, and plan of care. Past Medical History Past Medical History: Cancer, Heart Failure, COPD, Diabetes Mellitus, GERD/Reflux, Hearing Disorder / Deafness, Hyperlipidemia, Hypertension, Memory Impairment, Osteoarthritis (OA), Pneumonia, Renal Disease Additional Past Medical History / Comment(s): Fractures L2-L4 w/ paulina leg pain, DDD, Gout, CARDOSO'S esophagus, Esophageal CA-completed 28 radiation tx on 09/08/17, & 5 chemo tx 09/02/17. 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 ,see Dr Albrecht H&P, chronic kidney disease History of Any Multi-Drug Resistant Organisms: None Reported Past Surgical History: Back Surgery, Heart Catheterization, Hernia Repair, Orthopedic Surgery Additional Past Surgical History / Comment(s): Bilateral rotator cuff surgery, left foot surgery, thinks he has plate and screws, "esophagus radiofrequency ablation", paulina cataracts-lens implants, kyphoplasty. Pain procedures. Epidural steroid injection in back. Past Anesthesia/Blood Transfusion Reactions: No Reported Reaction Additional Past Anesthesia/Blood Transfusion Reaction / Comment(s): . Past Psychological History: No Psychological Hx Reported Smoking Status: Never smoker Past Alcohol Use History: Rare Additional Past Alcohol Use History / Comment(s): . Past Drug Use History: None Reported - Past Family History Mother Family Medical History: Cancer Additional Family Medical History / Comment(s): Kidney, Thyroid cancer. Father Family Medical History: Coronary Artery Disease (CAD) Additional Family Medical History / Comment(s): AT AGE 53. Medications and Allergies Home Medications Medication Instructions Recorded Confirmed Type Cetirizine HCl 10 mg PO DAILY 07/05/15 12/10/20 History Pravastatin Sodium [Pravachol] 80 mg PO HS 09/01/17 12/10/20 History Ipratropium-Albuterol Nebulize 3 ml INHALATION RT-Q6H 07/29/19 12/10/20 History [Duoneb 0.5 mg-3 mg/3 ml Soln] Insulin Glargine [Lantus] 20 unit SQ HS 08/17/19 12/10/20 History Aspirin 81 mg PO DAILY chew 08/23/19 12/10/20 Rx Gabapentin [Neurontin] 400 mg PO BID-W/MEALS 11/24/19 12/10/20 History Gabapentin [Neurontin] 800 mg PO HS 11/24/19 12/10/20 History Magnesium Oxide 400 mg PO BID 11/24/19 12/10/20 History Meloxicam [Mobic] 7.5 mg PO DAILY 11/24/19 12/10/20 History Omeprazole [PriLOSEC] 40 mg PO BID 11/24/19 12/10/20 History Potassium Chloride 10 meq PO BID 11/24/19 12/10/20 History Torsemide [Demadex] 100 mg PO DAILY 11/24/19 12/10/20 History allopurinoL [Zyloprim] 300 mg PO DAILY 11/24/19 12/10/20 History Zolpidem [Ambien] 10 mg PO HS 01/13/20 12/10/20 History Insulin Lispro [humaLOG Kwikpen] See Protocol SQ TID-W/MEALS PRN 06/28/20 12/10/20 History Insulin Lispro [humaLOG Kwikpen] 10 unit SQ AC-TID 11/19/20 12/10/20 History Yupelri 175mcg/3ml Solution 175 mcg INHALATION RT-DAILY 11/19/20 12/10/20 History buPROPion HCL [Wellbutrin XL] 300 mg PO DAILY 11/19/20 12/10/20 History Acetaminophen [Tylenol 8 Hour] 650 mg PO Q4H PRN 12/10/20 12/10/20 History Folic Acid 1 mg PO DAILY 12/10/20 12/10/20 History Meclizine HCl 12.5 - 25 mg PO DAILY PRN 12/10/20 12/10/20 History Midodrine HCl [ProAmantine] 2.5 mg PO BID 12/10/20 12/10/20 History ondansetron HCL [Zofran] 8 mg PO Q6H PRN 12/10/20 12/10/20 History Allergies Allergy/AdvReac Type Severity Reaction Status Date / Time latex Allergy Rash/Hives Verified 11/19/20 16:51 penicillin G Allergy Rash/Hives Verified 11/19/20 16:51 Physical Exam Vitals: Vital Signs Temp Pulse Resp BP Pulse Ox 12/10/20 14:54 64 16 74/47 94 L 12/10/20 13:54 97.8 F 69 18 77/53 92 L 12/10/20 13:18 68 16 92/51 95 12/10/20 12:55 71 16 83/55 95 12/10/20 12:47 64 16 77/61 93 L 12/10/20 11:57 70 16 103/90 94 L 12/10/20 11:18 97.6 F 70 16 78/51 94 L 12/10/20 10:33 72 18 86/54 92 L 12/10/20 10:08 80 18 75/49 88 L Intake and Output 12/10/20 12/10/20 12/10/20 06:59 14:59 22:59 Other: Weight 83.6 kg Results 12/10/20 10:20 12/10/20 10:20 Cardiac Enzymes 12/10/20 12/10/20 12/10/20 Range/Units 10:20 10:20 13:50 AST 41 (17-59) U/L Troponin I 0.457 H* 0.209 H* (0.000-0.034) ng/mL Coagulation 12/10/20 Range/Units 10:20 PT 10.9 (9.0-12.0) sec APTT 25.7 (22.0-30.0) sec CBC 12/10/20 Range/Units 10:20 WBC 17.6 H (3.8-10.6) k/uL RBC 4.56 (4.30-5.90) m/uL Hgb 13.5 (13.0-17.5) gm/dL Hct 42.7 (39.0-53.0) % Plt Count 192 (150-450) k/uL Comprehensive Metabolic Panel 12/10/20 Range/Units 10:20 Sodium 139 (137-145) mmol/L Potassium 4.8 (3.5-5.1) mmol/L Chloride 99 (98-107) mmol/L Carbon Dioxide 29 (22-30) mmol/L BUN 36 H (9-20) mg/dL Creatinine 2.00 H (0.66-1.25) mg/dL Glucose 104 H (74-99) mg/dL Calcium 8.6 (8.4-10.2) mg/dL AST 41 (17-59) U/L ALT 23 (4-49) U/L Alkaline Phosphatase 104 (38-126) U/L Total Protein 6.6 (6.3-8.2) g/dL Albumin 3.4 L (3.5-5.0) g/dL Current Medications Generic Name Dose Route Start Last Admin Trade Name Freq PRN Reason Stop Dose Admin Aspirin 325 mg 12/11/20 09:00 Aspirin 325 Mg Tab PO DAILY MELVA Sodium Chloride 1,000 mls @ 130 mls/hr 12/10/20 10:10 12/10/20 10:19 Saline 0.9% IV 12/10/20 17:51 130 mls/hr .Q7H42M STA Administration Azithromycin 500 mg/ Sodium 250 mls @ 250 mls/hr 12/11/20 16:00 Chloride IVPB 12/15/20 16:01 Q24H MELVA Cefepime HCl 2 gm/ Sodium 100 mls @ 25 mls/hr 12/10/20 16:00 Chloride IVPB 12/17/20 16:01 Q8HR MELVA Heparin Sodium/Sodium Chloride 250 mls @ 10.032 mls/hr 12/10/20 13:45 12/10/20 14:23 25,000 unit/ Sodium Chloride IV 12 units/kg/hr .Q24H MELVA 10.032 mls/hr Administration Protocol 12 UNITS/KG/HR Norepinephrine Bitartrate 32 250 mls @ 1.959 mls/hr 12/10/20 14:45 12/10/20 14:50 mg/ Sodium Chloride IV 0.05 mcg/kg/min .Q24H MELVA 1.959 mls/hr Administration Protocol 0.05 MCG/KG/MIN Miscellaneous Information 1 each 12/10/20 13:30 Pneumonia Protocol Utilized 1 Each Misc PO ONCE PRN Per Protocol Nitroglycerin 0.4 mg 12/10/20 13:33 Nitroglycerin Sl Tabs 0.4 Mg Tab SUBLINGUAL Q5M PRN Chest Pain Intake and Output 12/10/20 12/10/20 12/10/20 06:59 14:59 22:59 Other: Weight 83.6 kg Patient Weight 12/11/20 06:59 Weight 83.6 kg 12/10/20 10:20 12/10/20 10:20
[2020-12-10] MEDS ORDERED: MECLIZINE 25 MG TAB PO PRN (15:39)
[2020-12-10] MEDS ORDERED: ZOLPIDEM 5 MG TAB PO PRN (15:39)
[2020-12-10] MEDS ORDERED: ONDANSETRON 4 MG TAB PO PRN (15:39)
[2020-12-10 15:48] LABS: Glucose,Whole Blood 206 mg/dL (75-99)
[2020-12-10] MEDS ORDERED: HYDROcodone/APAP 5-325MG 1 EACH TAB PO PRN (18:01)
[2020-12-10 18:07] LABS: Glucose,Whole Blood 132 mg/dL (75-99)
[2020-12-10] MEDS: MIDODRINE 5 MG TAB PO SCH (18:10)
[2020-12-10] MEDS: GABAPENTIN 400 MG CAP PO SCH (18:11)
[2020-12-10] MEDS: PANTOPRAZOLE 40 MG TABLET PO SCH (18:11)
[2020-12-10] MEDS: INSULIN ASPART (NovoLOG) 100 UNIT/ML VIAL SQ SCH ×2 (19:01→20:37)
[2020-12-10 20:29] LABS: Glucose,Whole Blood 151 mg/dL (75-99)
[2020-12-10] MEDS: ATORVASTATIN 80 MG TAB PO SCH (20:36)
[2020-12-10] MEDS: MAGNESIUM OXIDE 400 MG TAB PO SCH (20:36)
[2020-12-10] MEDS: CEFEPIME 1 GM in SODIUM CHLORIDE 0.9% 50 ML IVPB SCH (20:37)
[2020-12-10] MEDS: INSULIN DETEMIR (LEVEMIR) 100 UNIT/ML SYR SQ SCH (20:37)
[2020-12-11 04:01] LABS: Basophils % (A) 0 %; Eosinophils # (A) 0.2 k/uL (0-0.7); Eosinophils % (A) 2 %; HCT 36.6 % (39.0-53.0); HGB 11.8 gm/dL (13.0-17.5); Lymphocytes # (A) 1.1 k/uL (1.0-4.8); Lymphocytes % (A) 10 %; MCH 30.1 pg (25.0-35.0); MCHC 32.3 g/dL (31.0-37.0); Mean Platelet Volume 8.3; Monocytes # (A) 0.6 k/uL (0-1.0); Monocytes % (A) 5 %; Neutrophils # (A) 9.7 k/uL (1.3-7.7); Neutrophils % (A) 82 %; Platelet Count 182 k/uL (150-450); RBC 3.93 m/uL (4.30-5.90); WBC 11.8 k/uL (3.8-10.6)
[2020-12-11 04:22] LABS: Albumin 2.8 g/dL (3.5-5.0); Calcium 8.2 mg/dL (8.4-10.2); Potassium 4.3 mmol/L (3.5-5.1); Total Bilirubin 1.1 mg/dL (0.2-1.3); Total Protein 5.8 g/dL (6.3-8.2)
[2020-12-11] MEDS: PANTOPRAZOLE 40 MG TABLET PO SCH ×2 (05:59→17:01)
[2020-12-11] MEDS: MIDODRINE 5 MG TAB PO SCH ×3 (05:59→17:01)
[2020-12-11] MEDS: GABAPENTIN 400 MG CAP PO SCH ×2 (05:59→17:01)
--- NOTE | 2020-12-11 06:19 | P.CNPUL ---
History of Present Illness Consult date: 12/11/20 Requesting physician: Bear Sampson Reason for consult: dyspnea, hypoxemia, pneumonia, abnormal CXR/CT Chief complaint: Weakness, hypotension. History of present illness: Pulmonary consult dated 12/11/2020. 85-year-old male seen in the emergency room yesterday by Dr. Pascual, for weakness. Apparently he been having symptoms of weakness and dizziness, and unsteady gait, for a couple days prior to admission. He also apparently had some lightheadedness. He apparently had fallen a number of times maybe 4 or so. He did have a small laceration on his left cheek area. Apparently also, the patient did have decreased oral intake, and several episodes of emesis. The patient was denying any pain. Also denying any shortness of breath. Currently, he is resting comfortably in bed. He is on 5 L nasal cannula. Is getting saline at 130 mL an hour. He is on norepinephrine at 5 mcg/m and heparin via weightbase protocol. The patient has a history of esophageal cancer, CHF, COPD, diabetes mellitus, GERD, deafness, hyperlipidemia, hypertension, memory impairment, osteoarthritis, and gout among other things. White count 11.8, hemoglobin 11.8, hematocrit 36.6, platelet count 182,000. PTT is 43.3. Sodium and potassium were normal. Chlorides 108, CO2 23, anion gap normal, BUN 34 with a creatinine of 1.68. Troponin was 0.777. There was concern for possible non- ST segment elevation myocardial infarction. Chest x-ray seemed to suggest heart failure, although pneumonia cannot be ruled out. Computed tomography scan of the brain showed nothing acute. Review of Systems REVIEW OF SYSTEMS: CONSTITUTIONAL: Weakness, dizziness, lightheadedness. NEUROLOGIC: Lightheadedness and dizziness. HEENT: [ Negative.] CARDIAC: [Negative.] PULMONARY: [Negative.] GI: Poor oral intake and emesis. : [Negative.] RHEUMATOLOGIC: [ Negative.] IMMUNOLOGIC: [ Negative.] ENDOCRINE: [Negative. ] DERMATOLOGIC: [Negative.] Past Medical History Past Medical History: Cancer, Heart Failure, COPD, Diabetes Mellitus, GERD/Reflux, Hearing Disorder / Deafness, Hyperlipidemia, Hypertension, Memory Impairment, Osteoarthritis (OA), Pneumonia, Renal Disease Additional Past Medical History / Comment(s): Fractures L2-L4 w/ paulina leg pain, DDD, Gout, CARDOSO'S esophagus, Esophageal CA-completed 28 radiation tx on 09/08/17, & 5 chemo tx 09/02/17. 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 ,see Dr Albrecht H&P, chronic kidney disease History of Any Multi-Drug Resistant Organisms: None Reported Past Surgical History: Back Surgery, Heart Catheterization, Hernia Repair, Orthopedic Surgery Additional Past Surgical History / Comment(s): Bilateral rotator cuff surgery, left foot surgery, thinks he has plate and screws, "esophagus radiofrequency ablation", paulina cataracts-lens implants, kyphoplasty. Pain procedures. Epidural steroid injection in back. Past Anesthesia/Blood Transfusion Reactions: No Reported Reaction Additional Past Anesthesia/Blood Transfusion Reaction / Comment(s): . Past Psychological History: No Psychological Hx Reported Smoking Status: Never smoker Past Alcohol Use History: Rare Additional Past Alcohol Use History / Comment(s): . Past Drug Use History: None Reported - Past Family History Mother Family Medical History: Cancer Additional Family Medical History / Comment(s): Kidney, Thyroid cancer. Father Family Medical History: Coronary Artery Disease (CAD) Additional Family Medical History / Comment(s): AT AGE 53. Medications and Allergies Home Medications Medication Instructions Recorded Confirmed Type Cetirizine HCl 10 mg PO DAILY 07/05/15 12/10/20 History Pravastatin Sodium [Pravachol] 80 mg PO HS 09/01/17 12/10/20 History Ipratropium-Albuterol Nebulize 3 ml INHALATION RT-Q6H 07/29/19 12/10/20 History [Duoneb 0.5 mg-3 mg/3 ml Soln] Insulin Glargine [Lantus] 20 unit SQ HS 08/17/19 12/10/20 History Aspirin 81 mg PO DAILY chew 08/23/19 12/10/20 Rx Gabapentin [Neurontin] 400 mg PO BID-W/MEALS 11/24/19 12/10/20 History Gabapentin [Neurontin] 800 mg PO HS 11/24/19 12/10/20 History Magnesium Oxide 400 mg PO BID 11/24/19 12/10/20 History Meloxicam [Mobic] 7.5 mg PO DAILY 11/24/19 12/10/20 History Omeprazole [PriLOSEC] 40 mg PO BID 11/24/19 12/10/20 History Potassium Chloride 10 meq PO BID 11/24/19 12/10/20 History Torsemide [Demadex] 100 mg PO DAILY 11/24/19 12/10/20 History allopurinoL [Zyloprim] 300 mg PO DAILY 11/24/19 12/10/20 History Zolpidem [Ambien] 10 mg PO HS 01/13/20 12/10/20 History Insulin Lispro [humaLOG Kwikpen] See Protocol SQ TID-W/MEALS PRN 06/28/20 12/10/20 History Insulin Lispro [humaLOG Kwikpen] 10 unit SQ AC-TID 11/19/20 12/10/20 History Yupelri 175mcg/3ml Solution 175 mcg INHALATION RT-DAILY 11/19/20 12/10/20 History buPROPion HCL [Wellbutrin XL] 300 mg PO DAILY 11/19/20 12/10/20 History Acetaminophen [Tylenol 8 Hour] 650 mg PO Q4H PRN 12/10/20 12/10/20 History Folic Acid 1 mg PO DAILY 12/10/20 12/10/20 History Meclizine HCl 12.5 - 25 mg PO DAILY PRN 12/10/20 12/10/20 History Midodrine HCl [ProAmantine] 2.5 mg PO BID 12/10/20 12/10/20 History ondansetron HCL [Zofran] 8 mg PO Q6H PRN 12/10/20 12/10/20 History Allergies Allergy/AdvReac Type Severity Reaction Status Date / Time latex Allergy Rash/Hives Verified 11/19/20 16:51 penicillin G Allergy Rash/Hives Verified 11/19/20 16:51 Physical Exam Osteopathic Statement: *. No significant issues noted on an osteopathic structural exam other than those noted in the History and Physical/Consult. Vitals: Vital Signs Temp Pulse Resp BP Pulse Ox 12/11/20 06:00 58 L 20 98/56 93 L 12/11/20 05:30 56 L 20 112/54 94 L 12/11/20 05:00 58 L 21 96/60 91 L 12/11/20 04:30 56 L 31 H 118/56 92 L 12/11/20 04:00 98 F 56 L 21 136/59 92 L 12/11/20 03:30 53 L 18 113/49 12/11/20 03:00 52 L 18 109/50 87 L 12/11/20 02:30 58 L 23 111/54 86 L 12/11/20 02:00 52 L 17 117/50 92 L 12/11/20 01:30 54 L 19 103/45 89 L 12/11/20 01:00 55 L 21 127/55 92 L 12/11/20 00:30 52 L 20 116/45 92 L 12/11/20 00:15 53 L 26 H 119/46 92 L 12/11/20 00:00 98 F 53 L 20 122/56 93 L 12/10/20 23:30 53 L 22 108/48 94 L 12/10/20 23:00 55 L 24 103/70 95 12/10/20 22:30 55 L 17 111/50 93 L 12/10/20 22:00 54 L 23 104/48 93 L 12/10/20 21:30 56 L 22 84/73 91 L 12/10/20 21:00 59 L 21 124/56 93 L 12/10/20 20:30 52 L 14 117/54 95 12/10/20 20:00 97.6 F 53 L 21 121/56 88 L 12/10/20 19:30 54 L 22 115/56 89 L 12/10/20 19:00 48 L 16 113/44 89 L 12/10/20 18:30 55 L 16 128/66 90 L 12/10/20 18:00 55 L 18 102/54 95 12/10/20 17:40 51 L 17 98/48 94 L 12/10/20 17:20 52 L 18 74/40 92 L 12/10/20 17:00 61 19 151/77 93 L 12/10/20 16:40 57 L 17 111/52 94 L 12/10/20 16:20 54 L 18 111/52 94 L 12/10/20 16:10 56 L 17 85/38 95 12/10/20 16:00 98.4 F 52 L 16 101/56 94 L 12/10/20 15:53 97.6 F 68 16 109/60 94 L 12/10/20 15:50 64 21 12/10/20 14:54 64 16 74/47 94 L 12/10/20 13:54 97.8 F 69 18 77/53 92 L 12/10/20 13:18 68 16 92/51 95 12/10/20 12:55 71 16 83/55 95 12/10/20 12:47 64 16 77/61 93 L 12/10/20 11:57 70 16 103/90 94 L 12/10/20 11:18 97.6 F 70 16 78/51 94 L 12/10/20 10:33 72 18 86/54 92 L 12/10/20 10:08 80 18 75/49 88 L Intake and Output 12/10/20 12/10/20 12/11/20 14:59 22:59 06:59 Intake Total 119.372 1774.071 Output Total 230 545 Balance 758.363 823.071 Intake: IV 910 1040 Sodium Chloride 0.9% 1, 910 1040 000 ml @ 130 mls/hr IV . Q7H42M [facility] Rx#:[id number] Intake, IV Titration 78.363 88.071 Amount Heparin Sod,Pork in 0.45% 69.221 64.651 NaCl 25,000 unit In 0.45 % NaCl 1 250ml.bag @ 12 UNITS/KG/HR 10.032 mls/hr IV .Q24H [facility] Rx#: [id number] Norepinephrine 32 mg In 9.142 23.420 Sodium Chloride 0.9% 218 ml @ 0.05 MCG/KG/MIN 1. 959 mls/hr IV .Q24H [facility] Rx#:[id number] Oral 240 Output: Urine 230 545 Other: Voiding Method Indwelling Catheter Indwelling Catheter Weight 83.6 kg 83.6 kg No acute distress, oriented 3. Currently on 5 L nasal cannula. No audible wheezing, use of accessory muscles, or conversational dyspnea. HEENT examination is grossly unremarkable. Small laceration on cheekbone. Neck supple. Full range of motion. No adenopathy thyromegaly or neck vein distention. Cardiovascular examination reveals regular rhythm rate. S1-S2 normal. No S3 or S4. No discernible murmur noted. Heart sounds are distant. Heart rate 58 bpm. Lungs reveal mostly clear breath sounds. Scattered rhonchi are noted. A few crackles are appreciated. There are no wheezes. Breath sounds equal bilaterall y. Air exchange is good. Abdomen soft bowel sounds are heard. No masses or tenderness. Extremities are intact. No cyanosis clubbing or significant edema. Skin is without rash or lesion. Neurologic examination is brief but nonfocal. Results - Laboratory Findings CBC and BMP: 12/11/20 03:06 12/11/20 03:06 PT/INR, D-dimer PT 10.9 sec (9.0-12.0) 12/10/20 10:20 INR 1.0 (<1.2) 12/10/20 10:20 Abnormal lab findings: Abnormal Labs 12/10/20 12/10/20 12/10/20 10:20 10:20 10:20 WBC 17.6 H RBC Hgb Hct Neutrophils # 15.8 H Lymphocytes # 0.9 L APTT Chloride BUN 36 H Creatinine 2.00 H Glucose 104 H POC Glucose (mg/dL) Plasma Lactic Acid Nestor 4.4 H* Calcium Magnesium 2.7 H Creatine Kinase 49 L Troponin I Total Protein Albumin 3.4 L Free T3 pg/mL 2.5 L 12/10/20 12/10/20 12/10/20 10:20 13:50 15:46 WBC RBC Hgb Hct Neutrophils # Lymphocytes # APTT Chloride BUN Creatinine Glucose POC Glucose (mg/dL) 206 H Plasma Lactic Acid Nestor Calcium Magnesium Creatine Kinase Troponin I 0.457 H* 0.209 H* Total Protein Albumin Free T3 pg/mL 12/10/20 12/10/20 12/10/20 17:28 18:06 20:12 WBC RBC Hgb Hct Neutrophils # Lymphocytes # APTT 70.2 H Chloride BUN Creatinine Glucose POC Glucose (mg/dL) 132 H Plasma Lactic Acid Nestor Calcium Magnesium Creatine Kinase Troponin I 0.777 H* Total Protein Albumin Free T3 pg/mL 12/10/20 12/11/20 12/11/20 20:27 03:06 03:06 WBC 11.8 H RBC 3.93 L Hgb 11.8 L Hct 36.6 L Neutrophils # 9.7 H Lymphocytes # APTT Chloride 108 H BUN 34 H Creatinine 1.68 H Glucose 163 H POC Glucose (mg/dL) 151 H Plasma Lactic Acid Nestor Calcium 8.2 L Magnesium Creatine Kinase Troponin I Total Protein 5.8 L Albumin 2.8 L Free T3 pg/mL 12/11/20 03:06 WBC RBC Hgb Hct Neutrophils # Lymphocytes # APTT 43.3 H Chloride BUN Creatinine Glucose POC Glucose (mg/dL) Plasma Lactic Acid Nestor Calcium Magnesium Creatine Kinase Troponin I Total Protein Albumin Free T3 pg/mL - Diagnostic Findings Chest x-ray: image reviewed Assessment and Plan Assessment: Hypotension, which may be multifactorial, in part related to underlying sepsis, and/or non-ST segment elevation myocardial infarction. Congestive heart failure. Possible pneumonia. Weakness, and unsteady gait, likely related to underlying hypotension. History of CHF. Lifelong nonsmoker. History of diabetes mellitus. Gastroesophageal reflux disease. History of hyperlipidemia. History of hypertension. Degenerative disc disease. History of gout. Cardoso's esophagus/esophageal cancer, status post radiation and chemotherapy 2017. History of kidney stones. Chronic kidney disease. Plan: Plan dated 12/11/2020. Currently, the patient remains on antibiotics. He was started on antibiotics for possible pneumonia. A pro-calcitonin level will be ordered. In addition, chest x-ray continues to show a pattern that might be consistent with heart fail ure/pneumonia. Currently, the patient's not describing any respiratory distress, he is on 5 L nasal cannula. When the oxygen comes off, his saturations do drop. He is getting saline at 130 mL an hour, and norepinephrine at 5 mcg/m. He remains on a heparin drip. Cardiology has seen the patient. Additional recommendations and suggestions are forthcoming. Prognosis is guarded. Time with Patient: Greater than 30
[2020-12-11 06:45] LABS: Glucose,Whole Blood 131 mg/dL (75-99)
[2020-12-11] MEDS: INSULIN ASPART (NovoLOG) 100 UNIT/ML VIAL SQ SCH ×4 (06:53→20:19)
[2020-12-11] MEDS: SODIUM CHLORIDE 0.9% 1,000 ML IV SCH (06:54)
--- NOTE | 2020-12-11 07:48 | XR ---
EXAMINATION TYPE: XR chest 1V DATE OF EXAM: 12/11/2020 COMPARISON: 12/10/2020 HISTORY: Weakness and vomiting TECHNIQUE: Single frontal view of the chest is obtained. FINDINGS: Patient is rotated to the right. Heart size is enlarged. Low lung volumes. Perihilar and in terstitial airspace opacities suggestive of edema or atypical infection. Patchy bibasilar airspace op acities, left greater than right have significantly increased since prior exam suggestive of developi ng pneumonia. Small bilateral pleural effusions. Findings are suggestive of congestive heart failure. This may be superimposed on an infectious/inflammatory processes, such as pneumonia.. Degenerative c hanges and osteopenia. IMPRESSION: 1. Findings are suggestive of congestive heart failure. Patchy airspace opacities at the lung bases, left greater than right concerning for developing pneumonia.
--- NOTE | 2020-12-11 08:32 | HP ---
HISTORY AND PHYSICAL DATE OF SERVICE: 12/10/2020. CHIEF COMPLAINT: Weakness. HISTORY OF PRESENT ILLNESS: This 85-year-old woman with a past history of COPD, CHF, history of diabetes, GERD, hypertension, hyperlipidemia, history of DJD, being followed by Dr. Dozier. The patient recently admitted with orthostatic hypotension, peripheral neuropathy, and falls. The patient went home. Patient was started on midodrine but progressively the patient has multiple falls and weakness and patient came to [facility] for evaluation. Patient had possibly pneumonia and CHF. Patient also found to be hypotensive. Patient also had renal failure. There is no history of fever, rigors. No headache, no loss consciousness. The patient admitted to ICU at this time. PAST MEDICAL HISTORY: 1. Orthostatic hypertension. 2. CHF. 3. COPD. 4. Diabetes. 5. GERD. 6. Hard of hearing. 7. Hypertension. 8. Hyperlipidemia. MEDICATIONS: Medications prior to admission include home medications. Zofran, Wellbutrin, glycine, zyloprim, Ambien, ProAmatine, torsemide, Pravachol, potassium, Prilosec, Mobic, magnesium oxide, DuoNeb, Humalog, Lantus, Neurontin, cetirizine, aspirin, folic acid, Tylenol. ALLERGIES: LATEX AND PENICILLIN. FAMILY HISTORY: History of kidney cancer, thyroid cancer. SOCIAL HISTORY: History of smoking. No alcohol intake. REVIEW OF SYSTEMS: ENT: No diminished hearing. CARDIOVASCULAR: System as mentioned. RESPIRATION: Mentioned earlier. GI: No nausea. : mentioned earlier. NERVOUS SYSTEM: No numbness, tingling, weakness mentioned earlier ALLERGY: No asthma or hayfever. MUSCULOSKELETAL: As mentioned earlier. HEMATOLOGY/ONCOLOGY: No history of diabetes or hypothyroidism. CONSTITUTIONAL: As mentioned earlier. DERMATOLOGY: Negative. Negative psychiatry as mentioned earlier. PHYSICAL EXAMINATION: Alert, attentive, pulse 51, blood pressure 98/48, respiration 70, temp normal, pulse ox 98% on 3 L. HEENT: Conjunctivae normal. Normal neck. Cardiovascular: No murmur. Respiration: The bases a few scattered rhonchi and crackles. Facial puffiness present. Abdomen: Soft, nontender. No mass. Legs: No edema. No swelling. Minimal edema. Nervous System: Higher functions as mentioned earlier. Moves all 4 limbs, no ( ) Lymphatics: No lymph nodes palpable. Skin: No ulcer, no rashes or bleeding. JOINTS: No active deforming arthropathy. LABS: WBC 17.6, sodium 130, potassium 4.8 and lactic acid 4.4. Troponin 0.04. Other labs are noted. ASSESSMENT: 1. Acute bilateral pneumonia with possible sepsis and septic shock and severe sepsis. Hypotension present on admission. 2. Congestive heart failure acute exacerbation, with an ejection fraction unknown. 3. Acute renal failure with prerenal acute tubular necrosis. 4. Elevated lactic acid. 5. Troponin 0.457 indeterminate, rule out acute xbw-YV-qegikhl-elevation myocardial infarction. 6. Increased WBC. 7. History of orthostatic hypotension history. 8. History of CHF. 9. COPD. 10.Diabetes mellitus, type 2. 11.Gastroesophageal reflux disease. 12.Hard of hearing. 13.Hypertension. 14.Hyperlipidemia. 15.History of DJD. 16.History of pneumonia. 17.History of memory impairment. 18.History of back surgery. 19.History of stomach ulcers. 20.History of carotid artery stenosis. RECOMMENDATIONS: This 84-year-old gentleman who presented with multiple complex medical issues. We will monitor the patient closely, continue the current management and treatment will ( ) the patient to ICU. Broad-spectrum IV antibiotics initiated IV heparin. Cardiology, pulmonology consultations. Prognosis is extremely guarded because of multiple complex medical issues. Further recommendations to follow. DVT prophylaxis. MMODL / SHAHRIARN: [id number] /
[2020-12-11] MEDS: allopurinoL 300 MG TAB PO SCH (08:37)
[2020-12-11] MEDS: buPROPion XL 300 MG TAB.ER.24H PO SCH (08:37)
[2020-12-11] MEDS: MAGNESIUM OXIDE 400 MG TAB PO SCH ×2 (08:37→20:14)
[2020-12-11] MEDS: ASPIRIN 81 MG PO SCH (08:37)
[2020-12-11] MEDS: FOLIC ACID 1 MG TAB PO SCH (08:37)
[2020-12-11] MEDS ORDERED: ASPIRIN 325 MG TAB PO SCH (09:00)
[2020-12-11] MEDS: CEFEPIME 1 GM in SODIUM CHLORIDE 0.9% 50 ML IVPB SCH ×2 (09:43→20:35)
--- NOTE | 2020-12-11 10:08 | ECHOF ---
Referral Reason:nstemi MEASUREMENTS -------- HEIGHT: 170.2 cm WEIGHT: 83.5 kg BP: 111/52 RVIDd: 3.3 cm (< 3.3) IVSd: 1.4 cm (0.6 - 1.1) LVIDd: 4.6 cm (3.9 - 5.3) LVPWd: 1.4 cm (0.6 - 1.1) IVSs: 2.0 cm LVIDs: 3.3 cm LVPWs: 2.1 cm LA Diam: 3.9 cm (2.7 - 3.8) LAESV Index (A-L): 27.74 ml/m Ao Diam: 3.3 cm (2.0 - 3.7) AV Cusp: 1.5 cm (1.5 - 2.6) MV EXCURSION: 12.842 mm (> 18.000) MV EF SLOPE: 43 mm/s (70 - 150) EPSS: 1.2 cm AV maxP.43 mmHg AV meanP.08 mmHg AR PHT: 798 ms RAP: 15.00 mmHg RVSP: 66.98 mmHg FINDINGS -------- Undetermined rhythm. This was a technically difficult study with suboptimal apical views. The left ventricular size is normal. There is moderate concentric left ventricular hypertrophy. L eft ventricular systolic function is hyperdynamic with an estimated EF of >70%. The right ventricle is mildly enlarged. Normal LA size by volume 22+/-6 ml/m2. The right atrium is normal in size. 5.0mg of Lumason was utilized for enhancement of images Interatrial and interventricular septum intact. There is mild aortic regurgitation. There is severe aortic stenosis present. Peak/mean gradient a cross the Aortic Valve is 85.43mmHg / 48.08mmHg. Can not exclude vegetation of AOV The mitral valve leaflets are mildly thickened. Mild mitral annular calcification present. Moderate tricuspid regurgitation present. There is severe pulmonary hypertension. The right ventr icular systolic pressure, as measured by Doppler, is 66.98mmHg. Moderate pulmonic regurgitation. The aortic root size is normal. The inferior vena cava is dilated with no significant inspiratory collapse which is consistent estima oscar right atrial pressure of >15 mmHg. There is no pericardial effusion. CONCLUSIONS -------- 1. The left ventricular size is normal. 2. There is moderate concentric left ventricular hypertrophy. 3. Left ventricular systolic function is hyperdynamic with an estimated EF of >70%. 4. The right ventricle is mildly enlarged. 5. 5.0mg of Lumason was utilized for enhancement of images 6. There is mild aortic regurgitation. 7. There is severe aortic stenosis present. 8. Peak/mean gradient across the Aortic Valve is 85.43mmHg / 48.08mmHg. 9. Can not exclude vegetation of AOV 10. The mitral valve leaflets are mildly thickened. 11. Mild mitral annular calcification present. 12. Moderate tricuspid regurgitation present. 13. There is severe pulmonary hypertension. 14. The right ventricular systolic pressure, as measured by Doppler, is 66.98mmHg. 15. Moderate pulmonic regurgitation. 16. The inferior vena cava is dilated with no significant inspiratory collapse which is consistent es timated right atrial pressure of >15 mmHg. 17. There is no pericardial effusion. TOBACCO STRIPPER HAND: Sendy Mcmahon RDCS
[2020-12-11 11:37] LABS: Glucose,Whole Blood 133 mg/dL (75-99)
--- NOTE | 2020-12-11 12:08 | P.PN ---
Subjective Progress Note Date: 12/11/20 HISTORY OF PRESENT ILLNESS: This is a 85-year-old male with a past medical history significant for hypertension, hyperlipidemia, CHF, peripheral vascular disease, carotid stenosis, aortic stenosis, and diabetes mellitus. Patient follows in the office with Dr. Albrecht. We have been asked to see the patient in consultation for elevated troponin. Patient examined at the bedside in the emergency room. Patient presented to the hospital secondary to nausea and vomiting times one week and generalized weakness. Patients and daughter at the bedside and provided additional history. Patient was recently hospitalized 1 month ago secondary to frequent falls. Patients states that they saw Dr. Albrecht about a week ago and he was placed on Midodrine. Patient was found to have elevated lactic acid and leukocytosis upon presentation to the emergency room. He is hypotensive. He had a central line placed and vasopressor support is to begin. Patient denies having any chest pain or pressure. He denies any pain in his arm, back, or shoulder. He denies any shortness of breath. He denies having fever or chills at home. Patients also gives history that patient had a right carotid enterectomy about a month ago performed in [place]. EKG reveals accelerated junctional Chest xray findings are suggestive of congestive heart failure. Underlying superimposed infection not excluded. Laboratory data: WBC 17.6. Hemoglobin 13.5. Platelet count 192. Sodium 139. Potassium 4.8. BUN 36. Creatinine 2.0. Current home cardiac medications include Demadex 100 mg daily, pravastatin 80 mg daily, aspirin 81 mg daily, and Midodrine 2.5 mg twice a day Most recent echocardiogram obtained in 2019 revealed ejection fraction 55-60% with moderate aortic stenosis 12/11/2020 Patient examined at the bedside. He denies chest pain or pressure. Denies shortness of breath. Patient remains in a junctional rhythm. He remains on Levothroid for blood pressure support. PHYSICAL EXAM: VITAL SIGNS: Reviewed. GENERAL: Well-developed in no acute distress. HEENT: Head is normocephalic. Pupils are equal, round. Sclerae anicteric. Mucous membranes of the mouth are moist. Neck supple. No JVD or thyromegaly LUNGS: Respirations even and unlabored. Lungs diminished bilaterally. HEART: Regular rate and rhythm. S1 and S2 heard. Systolic murmur noted. ABDOMEN: Soft. Nondistended. Nontender. EXTREMITIES: Normal range of motion. No clubbing or cyanosis. Peripheral pulses intact. Trace bilateral lower extremity edema with chronic discoloration to extremities NEUROLOGIC: Awake and alert. Oriented x 3. ASSESSMENT: Generalized weakness Nausea and vomiting 1 week Leukocytosis Hypotension requiring vasopressor support Acute kidney injury Abnormal troponin, likely secondary to infectious process and/or acute kidney injury Chronic diastolic heart failure Aortic stenosis Hypertension Hyperlipidemia History of carotid stenosis with recent right carotid endarterectomy Peripheral vascular disease PLAN: Continue current cardiac medications Increase Midodrine Wean Levophed as tolerated DC IV heparin Monitor blood pressure Further recommendations pending patient course Nurse practitioner note has been reviewed by physician. Signing provider agrees with the documented findings, assessment, and plan of care. Objective - Vital Signs Vital signs: Vital Signs Temp 97.6 F 12/11/20 08:00 Pulse 72 12/11/20 12:00 Resp 10 L 12/11/20 12:00 BP 91/55 12/11/20 12:00 Pulse Ox 86 L 12/11/20 12:00 Intake & Output 12/10/20 12/11/20 12/11/20 18:59 06:59 18:59 Intake Total 390 1966.434 844.130 Output Total 75 700 385 Balance 315 1266.434 459.130 Weight 83.6 kg 87.6 kg Intake: IV 390 1560 130 Sodium Chloride 0.9% 1, 390 1560 130 000 ml @ 130 mls/hr IV . Q7H42M STA Rx#:[id number] Intake, IV Titration 166.434 314.130 Amount Heparin Sod,Pork in 0.45% 133.872 47.986 NaCl 25,000 unit In 0.45 % NaCl 1 250ml.bag @ 12 UNITS/KG/HR 10.032 mls/hr IV .Q24H MELVA Rx#: [id number] Norepinephrine 32 mg In 32.562 16.144 Sodium Chloride 0.9% 218 ml @ 0.05 MCG/KG/MIN 1. 959 mls/hr IV .Q24H MELVA Rx#:[id number] Sodium Chloride 0.9% 1, 250 000 ml @ 50 mls/hr IV . Q20H MELVA Rx#:[id number] Oral 240 400 Output: Urine 75 700 385 Other: Voiding Method Indwelling Catheter Indwelling Catheter Indwelling Catheter - Labs CBC & Chem 7: 12/11/20 03:06 12/11/20 03:06 Labs: Abnormal Lab Results - Last 24 Hours (Table) 12/10/20 12/10/20 12/10/20 Range/Units 13:50 15:46 17:28 WBC (3.8-10.6) k/uL RBC (4.30-5.90) m/uL Hgb (13.0-17.5) gm/dL Hct (39.0-53.0) % Neutrophils # (1.3-7.7) k/uL APTT (22.0-30.0) sec Chloride (98-107) mmol/L BUN (9-20) mg/dL Creatinine (0.66-1.25) mg/dL Glucose (74-99) mg/dL POC Glucose (mg/dL) 206 H (75-99) mg/dL Calcium (8.4-10.2) mg/dL Troponin I 0.209 H* 0.777 H* (0.000-0.034) ng/mL Total Protein (6.3-8.2) g/dL Albumin (3.5-5.0) g/dL 12/10/20 12/10/20 12/10/20 Range/Units 18:06 20:12 20:27 WBC (3.8-10.6) k/uL RBC (4.30-5.90) m/uL Hgb (13.0-17.5) gm/dL Hct (39.0-53.0) % Neutrophils # (1.3-7.7) k/uL APTT 70.2 H (22.0-30.0) sec Chloride (98-107) mmol/L BUN (9-20) mg/dL Creatinine (0.66-1.25) mg/dL Glucose (74-99) mg/dL POC Glucose (mg/dL) 132 H 151 H (75-99) mg/dL Calcium (8.4-10.2) mg/dL Troponin I (0.000-0.034) ng/mL Total Protein (6.3-8.2) g/dL Albumin (3.5-5.0) g/dL 12/11/20 12/11/20 12/11/20 Range/Units 03:06 03:06 03:06 WBC 11.8 H (3.8-10.6) k/uL RBC 3.93 L (4.30-5.90) m/uL Hgb 11.8 L (13.0-17.5) gm/dL Hct 36.6 L (39.0-53.0) % Neutrophils # 9.7 H (1.3-7.7) k/uL APTT 43.3 H (22.0-30.0) sec Chloride 108 H (98-107) mmol/L BUN 34 H (9-20) mg/dL Creatinine 1.68 H (0.66-1.25) mg/dL Glucose 163 H (74-99) mg/dL POC Glucose (mg/dL) (75-99) mg/dL Calcium 8.2 L (8.4-10.2) mg/dL Troponin I (0.000-0.034) ng/mL Total Protein 5.8 L (6.3-8.2) g/dL Albumin 2.8 L (3.5-5.0) g/dL 12/11/20 12/11/20 12/11/20 Range/Units 06:44 10:46 11:35 WBC (3.8-10.6) k/uL RBC (4.30-5.90) m/uL Hgb (13.0-17.5) gm/dL Hct (39.0-53.0) % Neutrophils # (1.3-7.7) k/uL APTT 33.8 H (22.0-30.0) sec Chloride (98-107) mmol/L BUN (9-20) mg/dL Creatinine (0.66-1.25) mg/dL Glucose (74-99) mg/dL POC Glucose (mg/dL) 131 H 133 H (75-99) mg/dL Calcium (8.4-10.2) mg/dL Troponin I (0.000-0.034) ng/mL Total Protein (6.3-8.2) g/dL Albumin (3.5-5.0) g/dL
[2020-12-11 13:53] LABS: Chol/HDL Ratio 4.42
[2020-12-11] MEDS ORDERED: IPRATROPIUM-ALBUTEROL 3 ML NEB INHALATION PRN (15:43)
[2020-12-11] MEDS ORDERED: AZITHROMYCIN 500 MG in SODIUM CHLORIDE 0.9% 250 ML IVPB SCH (16:00)
[2020-12-11 16:56] LABS: Glucose,Whole Blood 170 mg/dL (75-99)
[2020-12-11] MEDS: IPRATROPIUM-ALBUTEROL 3 ML NEB INHALATION SCH (18:44)
[2020-12-11] MEDS: ATORVASTATIN 80 MG TAB PO SCH (20:14)
[2020-12-11 20:17] LABS: Glucose,Whole Blood 223 mg/dL (75-99)
[2020-12-11] MEDS: ONDANSETRON 4 MG/2 ML VIAL IVP PRN (20:19)
[2020-12-11] MEDS: INSULIN DETEMIR (LEVEMIR) 100 UNIT/ML SYR SQ SCH (20:20)
--- NOTE | 2020-12-11 20:26 | P.PN ---
Subjective Patient is admitted for weakness dizziness shortness of breath and hypoxemia patient is found to be in shock. Clinically patient appears to be in cardiac shock. Chest x-ray is consistent with CHF. Patient doesn't have any significant cough. Although patient pro calcitonin is elevated to above 4. Patient is presently on cefepime and being treated for septic shock as that cannot be ruled out at this time. Patient BNP is only in 500s. Patient's creatinine is presently 1.68 came down from 2 patient baseline creatinine appears to be around 1.1. Patient is presently on norepinephrine which is being weaned off. troponin as minimally elevated to 0.77. Constitutional: Denied any fatigue denied any fever. Cardio vascular: denied any chest pain, palpitations Gastrointestinal denied any nausea vomiting Pulmonary: As mentioned in the interval history Neurologic denied any new focal deficits All inpatient medications were reviewed and appropriate changes in these medications as dictated in the interval history and assessment and plan. PHYSICAL EXAMINATION: GENERAL: The patient is alert and oriented x3, not in any acute distress. Well developed, well nourished. HEENT: Pupils are round and equally reacting to light. EOMI. No scleral icterus. No conjunctival pallor. Normocephalic, atraumatic. No pharyngeal erythema. No thyromegaly. CARDIOVASCULAR: S1 and S2 present. No murmurs, rubs, or gallops. PULMONARY: His bilateral crackles ABDOMEN: Soft, nontender, nondistended, normoactive bowel sounds. No palpable organomegaly. MUSCULOSKELETAL: No joint swelling or deformity. EXTREMITIES: No cyanosis, clubbing, does have pedal edema NEUROLOGICAL: Gross neurological examination did not reveal any focal deficits. SKIN: No rashes. Assessment and plan Shock: Not clear whether it's cardiac shock for septic shock and patient is being treated for both although patient cannot receive Lasix at this time because of his hypotension patient is presently on norepinephrine which is being weaned off patient is also being treated for bilateral pneumonia with cefepime. Patient has EF of around 70% patient probably has chronic diastolic dysfunction. Patient also has pulmonary hypertension -Severe pulmonary hypertension -Congestive heart failure chronic diastolic dysfunction with acute exacerbation -Possibly of pneumonia cannot be ruled out -Type 2 diabetes mellitus -Gastroesophageal reflux disease -Hyperlipidemia next and heparin hypertension patient is presently hypotensive as in and is in septic shock -History of esophageal cancer status post radiation therapy and chemotherapy presently in remission patient last received any therapy for that was in 2018 -Chronic kidney disease stage II possibly diabetic nephropathy -Acute renal failure renal azotemia and/or acute tubular necrosis secondary to sepsis -DVT prophylaxis subcutaneous heparin GI prophylaxis Protonix -Minimal elevation of troponin secondary to shock and hypoxemia - Objective - Vital Signs Vital signs: Vital Signs Temp 97.6 F 12/11/20 08:00 Pulse 67 12/11/20 14:00 Resp 22 12/11/20 14:00 BP 104/52 12/11/20 14:00 Pulse Ox 92 L 12/11/20 14:00 Intake & Output 12/10/20 12/11/20 12/11/20 18:59 06:59 18:59 Intake Total 390 1966.434 944.130 Output Total 75 700 520 Balance 315 1266.434 424.130 Weight 83.6 kg 87.6 kg Intake: IV 390 1560 130 Sodium Chloride 0.9% 1, 390 1560 130 000 ml @ 130 mls/hr IV . Q7H42M STA Rx#:[id number] Intake, IV Titration 166.434 414.130 Amount Heparin Sod,Pork in 0.45% 133.872 47.986 NaCl 25,000 unit In 0.45 % NaCl 1 250ml.bag @ 12 UNITS/KG/HR 10.032 mls/hr IV .Q24H MELVA Rx#: [id number] Norepinephrine 32 mg In 32.562 16.144 Sodium Chloride 0.9% 218 ml @ 0.05 MCG/KG/MIN 1. 959 mls/hr IV .Q24H MELVA Rx#:[id number] Sodium Chloride 0.9% 1, 350 000 ml @ 50 mls/hr IV . Q20H MELVA Rx#:[id number] Oral 240 400 Output: Urine 75 700 520 Other: Voiding Method Indwelling Catheter Indwelling Catheter Indwelling Catheter - Labs CBC & Chem 7: 12/11/20 03:06 12/11/20 03:06 Labs: Abnormal Lab Results - Last 24 Hours (Table) 12/10/20 12/10/20 12/10/20 Range/Units 13:50 15:46 17:28 WBC (3.8-10.6) k/uL RBC (4.30-5.90) m/uL Hgb (13.0-17.5) gm/dL Hct (39.0-53.0) % Neutrophils # (1.3-7.7) k/uL APTT (22.0-30.0) sec Chloride (98-107) mmol/L BUN (9-20) mg/dL Creatinine (0.66-1.25) mg/dL Glucose (74-99) mg/dL POC Glucose (mg/dL) 206 H (75-99) mg/dL Calcium (8.4-10.2) mg/dL Troponin I 0.209 H* 0.777 H* (0.000-0.034) ng/mL Total Protein (6.3-8.2) g/dL Albumin (3.5-5.0) g/dL HDL Cholesterol (40.0-60.0) mg/dL 12/10/20 12/10/20 12/10/20 Range/Units 18:06 20:12 20:27 WBC (3.8-10.6) k/uL RBC (4.30-5.90) m/uL Hgb (13.0-17.5) gm/dL Hct (39.0-53.0) % Neutrophils # (1.3-7.7) k/uL APTT 70.2 H (22.0-30.0) sec Chloride (98-107) mmol/L BUN (9-20) mg/dL Creatinine (0.66-1.25) mg/dL Glucose (74-99) mg/dL POC Glucose (mg/dL) 132 H 151 H (75-99) mg/dL Calcium (8.4-10.2) mg/dL Troponin I (0.000-0.034) ng/mL Total Protein (6.3-8.2) g/dL Albumin (3.5-5.0) g/dL HDL Cholesterol (40.0-60.0) mg/dL 12/11/20 12/11/20 12/11/20 Range/Units 03:06 03:06 03:06 WBC 11.8 H (3.8-10.6) k/uL RBC 3.93 L (4.30-5.90) m/uL Hgb 11.8 L (13.0-17.5) gm/dL Hct 36.6 L (39.0-53.0) % Neutrophils # 9.7 H (1.3-7.7) k/uL APTT 43.3 H (22.0-30.0) sec Chloride 108 H (98-107) mmol/L BUN 34 H (9-20) mg/dL Creatinine 1.68 H (0.66-1.25) mg/dL Glucose 163 H (74-99) mg/dL POC Glucose (mg/dL) (75-99) mg/dL Calcium 8.2 L (8.4-10.2) mg/dL Troponin I (0.000-0.034) ng/mL Total Protein 5.8 L (6.3-8.2) g/dL Albumin 2.8 L (3.5-5.0) g/dL HDL Cholesterol 26.0 L (40.0-60.0) mg/dL 12/11/20 12/11/20 12/11/20 Range/Units 06:44 10:46 11:35 WBC (3.8-10.6) k/uL RBC (4.30-5.90) m/uL Hgb (13.0-17.5) gm/dL Hct (39.0-53.0) % Neutrophils # (1.3-7.7) k/uL APTT 33.8 H (22.0-30.0) sec Chloride (98-107) mmol/L BUN (9-20) mg/dL Creatinine (0.66-1.25) mg/dL Glucose (74-99) mg/dL POC Glucose (mg/dL) 131 H 133 H (75-99) mg/dL Calcium (8.4-10.2) mg/dL Troponin I (0.000-0.034) ng/mL Total Protein (6.3-8.2) g/dL Albumin (3.5-5.0) g/dL HDL Cholesterol (40.0-60.0) mg/dL
[2020-12-11] MEDS: HEPARIN SODIUM,PORCINE/PF 5,000 UNIT/0.5 ML SYRINGE SQ SCH (20:39)
[2020-12-12] MEDS: IPRATROPIUM-ALBUTEROL 3 ML NEB INHALATION SCH ×4 (01:40→20:27)
[2020-12-12 03:48] LABS: Basophils % (A) 0 %; Eosinophils # (A) 0.2 k/uL (0-0.7); Eosinophils % (A) 2 %; HGB 10.6 gm/dL (13.0-17.5); Lymphocytes # (A) 0.7 k/uL (1.0-4.8); Lymphocytes % (A) 10 %; MCH 29.8 pg (25.0-35.0); MCV 92.9 fL (80.0-100.0); Monocytes # (A) 0.4 k/uL (0-1.0); Monocytes % (A) 5 %; Neutrophils # (A) 6.3 k/uL (1.3-7.7); Neutrophils % (A) 81 %; Platelet Count 146 k/uL (150-450); RBC 3.55 m/uL (4.30-5.90); WBC 7.7 k/uL (3.8-10.6)
[2020-12-12 04:00] LABS: Calcium 8.5 mg/dL (8.4-10.2); Potassium 4.2 mmol/L (3.5-5.1)
[2020-12-12] MEDS: PANTOPRAZOLE 40 MG TABLET PO SCH (06:40)
[2020-12-12] MEDS: GABAPENTIN 400 MG CAP PO SCH ×2 (06:40→17:14)
[2020-12-12] MEDS: MIDODRINE 5 MG TAB PO SCH ×3 (06:40→17:11)
[2020-12-12] MEDS: SODIUM CHLORIDE 0.9% 1,000 ML IV SCH ×2 (06:41→09:00)
[2020-12-12] MEDS: INSULIN ASPART (NovoLOG) 100 UNIT/ML VIAL SQ SCH ×4 (06:43→21:42)
[2020-12-12 06:44] LABS: Glucose,Whole Blood 81 mg/dL (75-99)
[2020-12-12] MEDS ORDERED: FUROSEMIDE 10 MG/ML 4 ML VIAL IV STA (07:03)
--- NOTE | 2020-12-12 08:11 | XR ---
EXAMINATION TYPE: XR chest 1V portable DATE OF EXAM: 12/12/2020 COMPARISON: 12/11/2020 HISTORY: Shortness of breath TECHNIQUE: Single frontal view of the chest is obtained. FINDINGS: Gross cardiomegaly. Atherosclerotic aorta. Patchy diffuse perihilar and interstitial airsp chelle opacities most suggestive of the edema. This has significantly increased since prior exam. Modera te bilateral pleural effusions. These findings are suggestive of congestive heart failure. Superimpos ed infectious/inflammatory processes, such as pneumonia are not excluded. No pneumothorax. IMPRESSION: 1. Worsening congestive heart failure. Underlying pneumonia is not excluded.
[2020-12-12] MEDS: buPROPion XL 300 MG TAB.ER.24H PO SCH (09:17)
[2020-12-12] MEDS: MAGNESIUM OXIDE 400 MG TAB PO SCH ×2 (09:17→21:41)
[2020-12-12] MEDS: ASPIRIN 81 MG PO SCH (09:17)
[2020-12-12] MEDS: CEFEPIME 1 GM in SODIUM CHLORIDE 0.9% 50 ML IVPB SCH (09:17)
[2020-12-12] MEDS: HEPARIN SODIUM,PORCINE/PF 5,000 UNIT/0.5 ML SYRINGE SQ SCH ×2 (09:17→21:41)
[2020-12-12] MEDS: allopurinoL 300 MG TAB PO SCH (09:17)
[2020-12-12] MEDS: FOLIC ACID 1 MG TAB PO SCH (09:17)
--- NOTE | 2020-12-12 09:28 | P.PN ---
Subjective Progress Note Date: 12/12/20 Principal diagnosis: Dyspnea, hypoxia, pneumonia 85-year-old male seen in the emergency room yesterday by Dr. Pascual, for weakness. Apparently he been having symptoms of weakness and dizziness, and unsteady gait, for a couple days prior to admission. He also apparently had some lightheadedness. He apparently had fallen a number of times maybe 4 or so. He did have a small laceration on his left cheek area. Apparently also, the patient did have decreased oral intake, and several episodes of emesis. The patient was denying any pain. Also denying any shortness of breath. Currently, he is resting comfortably in bed. He is on 5 L nasal cannula. Is getting saline at 130 mL an hour. He is on norepinephrine at 5 mcg/m and heparin via weightbase protocol. The patient has a history of esophageal cancer, CHF, COPD, diabetes mellitus, GERD, deafness, hyperlipidemia, hypertension, memory impairment, osteoarthritis, and gout among other things. White count 11.8, hemoglobin 11.8, hematocrit 36.6, platelet count 182,000. PTT is 43.3. Sodium and potassium were normal. Chlorides 108, CO2 23, anion gap normal, BUN 34 with a creatinine of 1.68. Troponin was 0.777. There was concern for possible non- ST segment elevation myocardial infarction. Chest x-ray seemed to suggest heart failure, although pneumonia cannot be ruled out. Computed tomography scan of the brain showed nothing acute. On 12/12/2020 patient seen in follow-up in the intensive care unit. He is awake and alert, oriented 3, appears to be in no acute distress, breathing comfortably, he is currently on 3 L of oxygen with a pulse ox of 92%. He has 0.9 normal seen infusing at 10 ML per hour, no other drips. He is in sinus mechanism with a rate of 75 BPM. Blood pressure stable, he is up in the chair, tolerating activity well, looking very comfortable, today's chest x-ray has been reviewed, showing worsening congestive heart failure, patchy diffuse perihilar and interstitial airspace opacities, and moderate bilateral pleural effusions, however superimposed infectious and inflammatory process could not be excluded. Patient was given 1 dose of Lasix this morning. Patient remains on the combination of cefepime and azithromycin. His blood and sputum cultures have been sent, blood culture is negative thus far, sputum culture is pending, preliminary Gram stain shows moderate PMNs, rare gram-positive cocci and rare budding yeast. Patient has had no fever or chills since admission. His lab work has been reviewed, his white blood cell count has significantly improved in the last couple of days, his white count is down to 7.7, hemoglobin is 10.6, sodium is 141, potassium is 4.2, chloride is 110, his renal profile has significantly improved, his BUN is 27 creatinine is 1.24. Patient's pro calcitonin came back elevated at 4.22 suggesting possibility of infection possibly related to pneumonia Objective - Vital Signs Vital signs: Vital Signs Temp 97.9 F 12/12/20 08:00 Pulse 71 12/12/20 08:00 Resp 17 12/12/20 08:00 BP 124/70 12/12/20 08:00 Pulse Ox 90 L 12/12/20 08:00 Intake & Output 12/11/20 12/12/20 12/12/20 18:59 06:59 18:59 Intake Total 1794.130 620 50 Output Total 835 1000 350 Balance 959.130 -380 -300 Weight 89 kg Intake: IV 130 600 50 Sodium Chloride 0.9% 1, 130 000 ml @ 130 mls/hr IV . Q7H42M STA Rx#:[id number] Sodium Chloride 0.9% 1, 600 50 000 ml @ 50 mls/hr IV . Q20H [facility] Rx#:[id number] Intake, IV Titration 864.130 20 Amount Azithromycin 500 mg In 250 Sodium Chloride 0.9% 250 ml @ 250 mls/hr IVPB Q24H [facility] Rx#:[id number] Heparin Sod,Pork in 0.45% 47.986 NaCl 25,000 unit In 0.45 % NaCl 1 250ml.bag @ 12 UNITS/KG/HR 10.032 mls/hr IV .Q24H [facility] Rx#: [id number] Norepinephrine 32 mg In 16.144 Sodium Chloride 0.9% 218 ml @ 0.05 MCG/KG/MIN 1. 959 mls/hr IV .Q24H [facility] Rx#:[id number] Sodium Chloride 0.9% 1, 550 20 000 ml @ 50 mls/hr IV . Q20H [facility] Rx#:[id number] Oral 800 Output: Urine 835 1000 350 Other: Voiding Method Indwelling Catheter Indwelling Catheter - Exam GENERAL EXAM: Alert, very pleasant, 85-year-old white male, on 3 L of oxygen pulse ox of 98%, patient is sitting up in the recliner, breathing comfortably comfortable in no apparent distress. HEAD: Normocephalic/atraumatic. EYES: Normal reaction of pupils, equal size. Conjunctiva pink, sclera white. NOSE: Clear with pink turbinates. THROAT: No erythema or exudates. NECK: No masses, no JVD, no thyroid enlargement, no adenopathy. CHEST: No chest wall deformity. Symmetrical expansion. LUNGS: Equal air entry with bibasilar crackles and diminished breath sounds at bilateral bases CVS: Regular rate and rhythm, normal S1 and S2, no gallops, no murmurs, no rubs ABDOMEN: Soft, nontender. No hepatosplenomegaly, normal bowel sounds, no guarding or rigidity. EXTREMITIES: No clubbing, no edema, no cyanosis, 2+ pulses and upper and lower extremities. MUSCULOSKELETAL: Muscle strength and tone normal. SPINE: No scoliosis or deformity SKIN: No rashes CENTRAL NERVOUS SYSTEM: Alert and oriented -3. No focal deficits, tone is normal in all 4 extremities. PSYCHIATRIC: Alert and oriented -3. Appropriate affect. Intact judgment and insight. - Labs CBC & Chem 7: 12/12/20 03:05 12/12/20 03:05 Labs: Abnormal Lab Results - Last 24 Hours (Table) 12/11/20 12/11/20 12/11/20 Range/Units 03:06 03:06 10:46 RBC (4.30-5.90) m/uL Hgb (13.0-17.5) gm/dL Hct (39.0-53.0) % Plt Count (150-450) k/uL Lymphocytes # (1.0-4.8) k/uL APTT 33.8 H (22.0-30.0) sec Chloride (98-107) mmol/L BUN (9-20) mg/dL POC Glucose (mg/dL) (75-99) mg/dL HDL Cholesterol 26.0 L (40.0-60.0) mg/dL Procalcitonin 4.22 H (0.02-0.09) ng/mL 06/12/11/20 12/11/20 Range/Units 11:35 16:54 20:15 RBC (4.30-5.90) m/uL Hgb (13.0-17.5) gm/dL Hct (39.0-53.0) % Plt Count (150-450) k/uL Lymphocytes # (1.0-4.8) k/uL APTT (22.0-30.0) sec Chloride (98-107) mmol/L BUN (9-20) mg/dL POC Glucose (mg/dL) 133 H 170 H 223 H (75-99) mg/dL HDL Cholesterol (40.0-60.0) mg/dL Procalcitonin (0.02-0.09) ng/mL 12/12/20 12/12/20 Range/Units 03:05 03:05 RBC 3.55 L (4.30-5.90) m/uL Hgb 10.6 L (13.0-17.5) gm/dL Hct 33.0 L (39.0-53.0) % Plt Count 146 L (150-450) k/uL Lymphocytes # 0.7 L (1.0-4.8) k/uL APTT (22.0-30.0) sec Chloride 110 H (98-107) mmol/L BUN 27 H (9-20) mg/dL POC Glucose (mg/dL) (75-99) mg/dL HDL Cholesterol (40.0-60.0) mg/dL Procalcitonin (0.02-0.09) ng/mL Microbiology - Last 24 Hours (Table) 12/10/20 20:52 Gram Stain - Preliminary Sputum Sputum Culture - Preliminary 12/10/20 13:43 Blood Culture - Preliminary Blood No Growth after 24 hours 12/10/20 13:43 Blood Culture - Preliminary Blood No Growth after 24 hours Assessment and Plan Plan: Assessment: #1. Hypotension, multifactorial, in part related to sepsis and septic shock and/or non-ST elevated myocardial infarction #2. Acute hypoxic respiratory failure related to pneumonia, community acquired, and acute exacerbation of CHF #3. Severe aortic stenosis with peak/mean gradient across the aortic valve of 85.4 mmHg/48.08 mmHg, transthoracic echocardiogram could not exclude vegetation of aortic valve. Moderate tricuspid regurgitation #4. Severe pulmonary hypertension, with right-sided pressure of 66.9 mmHg likely related to valvular heart disease and underlying history of COPD #5. Acute kidney injury, improving #6. History of COPD #7. Diabetes mellitus type 2 #8. Hypertension #9. Hyperlipidemia #10. Previous history of pneumonia #11. 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 Osteoarthritis with history of multiple hepatic surgeries #14. Chronic kidney disease, unspecified #15. Carotid artery stenosis, status post right carotid endarterectomy in October 2020 at [facility], patient also has left carotid stenosis Plan: Continue current medical treatment 1 dose of IV Lasix 40 mg Discontinue IV fluids Discontinue azithromycin, continue cefepime Encourage deep breathing and coughing GI and DVT prophylaxis We'll continue to monitor the patient in the intensive care unit I performed a history & physical examination of the patient and discussed their management with my nurse practitioner, Shae Freeman. I reviewed the nurse practitioner's note and agree with the documented findings and plan of care. Lung sounds are positive for diffuse crackles. The findings and the impression was discussed with the patient. I attest to the documentation by the nurse practitioner. Time with Patient: Less than 30
[2020-12-12 11:22] LABS: Glucose,Whole Blood 79 mg/dL (75-99)
--- NOTE | 2020-12-12 12:11 | P.PN ---
Subjective Progress Note Date: 12/12/20 HISTORY OF PRESENT ILLNESS: This is a 85-year-old male with a past medical history significant for hypertension, hyperlipidemia, CHF, peripheral vascular disease, carotid stenosis, aortic stenosis, and diabetes mellitus. Patient follows in the office with Dr. Albrecht. We have been asked to see the patient in consultation for elevated troponin. Patient examined at the bedside in the emergency room. Patient presented to the hospital secondary to nausea and vomiting times one week and generalized weakness. Patients and daughter at the bedside and provided additional history. Patient was recently hospitalized 1 month ago secondary to frequent falls. Patients states that they saw Dr. Albrecht about a week ago and he was placed on Midodrine. Patient was found to have elevated lactic acid and leukocytosis upon presentation to the emergency room. He is hypotensive. He had a central line placed and vasopressor support is to begin. Patient denies having any chest pain or pressure. He denies any pain in his arm, back, or shoulder. He denies any shortness of breath. He denies having fever or chills at home. Patients also gives history that patient had a right carotid enterectomy about a month ago performed in [place]. EKG reveals accelerated junctional Chest xray findings are suggestive of congestive heart failure. Underlying superimposed infection not excluded. Laboratory data: WBC 17.6. Hemoglobin 13.5. Platelet count 192. Sodium 139. Potassium 4.8. BUN 36. Creatinine 2.0. Current home cardiac medications include Demadex 100 mg daily, pravastatin 80 mg daily, aspirin 81 mg daily, and Midodrine 2.5 mg twice a day Most recent echocardiogram obtained in 2019 revealed ejection fraction 55-60% with moderate aortic stenosis 12/11/2020 Patient examined at the bedside. He denies chest pain or pressure. Denies shortness of breath. Patient remains in a junctional rhythm. He remains on Levophed for blood pressure support. 12/12/2020 Patient examined this morning the intensive care unit. Patient is sitting up in the chair. Patient reports he got a little bit confused this morning but feels he is back to his baseline. Patient also had an episode this morning of shortness of breath and required a nonrebreather for approximately 20 minutes. He is currently on a nasal cannula. Patient did receive a one-time dose of Lasix per pulmonary this morning. E reveals sinus mechanism. No further evidence of junctional rhythm. PHYSICAL EXAM: VITAL SIGNS: Reviewed. GENERAL: Well-developed in no acute distress. HEENT: Head is normocephalic. Pupils are equal, round. Sclerae anicteric. Mucous membranes of the mouth are moist. Neck supple. No JVD or thyromegaly LUNGS: Respirations even and unlabored. Lungs diminished bilaterally with bibasilar rales. HEART: Regular rate and rhythm. S1 and S2 heard. Systolic murmur noted. ABDOMEN: Soft. Nondistended. Nontender. EXTREMITIES: Normal range of motion. No clubbing or cyanosis. Peripheral pulses intact. Trace bilateral lower extremity edema with chronic discoloration to extremities NEUROLOGIC: Awake and alert. Oriented x 3. ASSESSMENT: Generalized weakness Nausea and vomiting 1 week Leukocytosis Hypotension requiring vasopressor support Acute kidney injury Abnormal troponin, likely secondary to infectious process and/or acute kidney injury Acute exacerbation of chronic diastolic heart failure Aortic stenosis Hypertension Hyperlipidemia History of carotid stenosis with recent right carotid endarterectomy Peripheral vascular disease PLAN: Continue current cardiac medications No further inpatient recommendations from a cardiac standpoint We will sign off. Please reconsult if needed. Nurse practitioner note has been reviewed by physician. Signing provider agrees with the documented findings, assessment, and plan of care. Objective - Vital Signs Vital signs: Vital Signs Temp 97.9 F 12/12/20 08:00 Pulse 76 12/12/20 12:03 Resp 16 12/12/20 12:00 BP 140/74 12/12/20 12:00 Pulse Ox 93 L 12/12/20 12:00 Intake & Output 12/11/20 12/12/20 12/12/20 18:59 06:59 18:59 Intake Total 1794.130 620 90 Output Total 835 1000 1875 Balance 959.130 380 1782 Weight 89 kg Intake: IV 130 600 90 Sodium Chloride 0.9% 1, 130 000 ml @ 130 mls/hr IV . Q7H42M STA Rx#:[id number] Sodium Chloride 0.9% 1, 600 90 000 ml @ 50 mls/hr IV . Q20H [facility] Rx#:[id number] Intake, IV Titration 864.130 20 Amount Azithromycin 500 mg In 250 Sodium Chloride 0.9% 250 ml @ 250 mls/hr IVPB Q24H [facility] Rx#:[id number] Heparin Sod,Pork in 0.45% 47.986 NaCl 25,000 unit In 0.45 % NaCl 1 250ml.bag @ 12 UNITS/KG/HR 10.032 mls/hr IV .Q24H [facility]ELVA Rx#: [id number] Norepinephrine 32 mg In 16.144 Sodium Chloride 0.9% 218 ml @ 0.05 MCG/KG/MIN 1. 959 mls/hr IV .Q24H [facility] Rx#:[id number] Sodium Chloride 0.9% 1, 550 20 000 ml @ 50 mls/hr IV . Q20H [facility] Rx#:[id number] Oral 800 Output: Urine 835 1000 1875 Other: Voiding Method Indwelling Catheter Indwelling Catheter Indwelling Catheter - Labs CBC & Chem 7: 12/12/20 03:05 12/12/20 03:05 Labs: Abnormal Lab Results - Last 24 Hours (Table) 12/11/20 12/11/20 12/11/20 Range/Units 03:06 03:06 16:54 RBC (4.30-5.90) m/uL Hgb (13.0-17.5) gm/dL Hct (39.0-53.0) % Plt Count (150-450) k/uL Lymphocytes # (1.0-4.8) k/uL Chloride (98-107) mmol/L BUN (9-20) mg/dL POC Glucose (mg/dL) 170 H (75-99) mg/dL HDL Cholesterol 26.0 L (40.0-60.0) mg/dL Procalcitonin 4.22 H (0.02-0.09) ng/mL 12/11/20 12/12/20 12/12/20 Range/Units 20:15 03:05 03:05 RBC 3.55 L (4.30-5.90) m/uL Hgb 10.6 L (13.0-17.5) gm/dL Hct 33.0 L (39.0-53.0) % Plt Count 146 L (150-450) k/uL Lymphocytes # 0.7 L (1.0-4.8) k/uL Chloride 110 H (98-107) mmol/L BUN 27 H (9-20) mg/dL POC Glucose (mg/dL) 223 H (75-99) mg/dL HDL Cholesterol (40.0-60.0) mg/dL Procalcitonin (0.02-0.09) ng/mL Microbiology - Last 24 Hours (Table) 12/10/20 20:52 Gram Stain - Preliminary Sputum Sputum Culture - Preliminary 12/10/20 13:43 Blood Culture - Preliminary Blood No Growth after 24 hours 12/10/20 13:43 Blood Culture - Preliminary Blood No Growth after 24 hours
--- NOTE | 2020-12-12 15:00 | P.PN ---
Subjective Patient is admitted for weakness dizziness shortness of breath and hypoxemia patient is found to be in shock. Clinically patient appears to be in cardiac shock. Chest x-ray is consistent with CHF. Patient doesn't have any significant cough. Although patient pro calcitonin is elevated to above 4. Patient is presently on cefepime and being treated for septic shock as that cannot be ruled out at this time. Patient BNP is only in 500s. Patient's creatinine is presently 1.68 came down from 2 patient baseline creatinine appears to be around 1.1. Patient is presently on norepinephrine which is being weaned off. troponin as minimally elevated to 0.77. 12/12/2020 Patient had an episode of respiratory distress requiring BiPAP today. This improved after IV Lasix. Sputum cultures are so far negative clinically patient appears to be in heart failure exacerbation. Constitutional: Denied any fatigue denied any fever. Cardio vascular: denied any chest pain, palpitations Gastrointestinal denied any nausea vomiting Pulmonary: As mentioned in the interval history Neurologic denied any new focal deficits All inpatient medications were reviewed and appropriate changes in these medications as dictated in the interval history and assessment and plan. PHYSICAL EXAMINATION: GENERAL: The patient is alert and oriented x3, not in any acute distress. Well developed, well nourished. HEENT: Pupils are round and equally reacting to light. EOMI. No scleral icterus. No conjunctival pallor. Normocephalic, atraumatic. No pharyngeal erythema. No thyromegaly. CARDIOVASCULAR: S1 and S2 present. No murmurs, rubs, or gallops. PULMONARY: His bilateral crackles ABDOMEN: Soft, nontender, nondistended, normoactive bowel sounds. No palpable organomegaly. MUSCULOSKELETAL: No joint swelling or deformity. EXTREMITIES: No cyanosis, clubbing, does have pedal edema NEUROLOGICAL: Gross neurological examination did not reveal any focal deficits. SKIN: No rashes. Assessment and plan Shock: Not clear whether it's cardiac shock for septic shock and patient is being treated for both although patient cannot receive Lasix at this time becau se of his hypotension patient is presently on norepinephrine which is being weaned off patient is also being treated for bilateral pneumonia with cefepime. Patient has EF of around 70% patient probably has chronic diastolic dysfunction. Patient also has pulmonary hypertension -Severe pulmonary hypertension -Congestive heart failure chronic diastolic dysfunction with acute exacerbation -Possibly of pneumonia cannot be ruled out -Type 2 diabetes mellitus -Gastroesophageal reflux disease -Hyperlipidemia next and heparin hypertension patient is presently hypotensive as in and is in septic shock -History of esophageal cancer status post radiation therapy and chemotherapy presently in remission patient last received any therapy for that was in 2018 -Chronic kidney disease stage II possibly diabetic nephropathy -Acute renal failure renal azotemia and/or acute tubular necrosis secondary to sepsis -DVT prophylaxis subcutaneous heparin GI prophylaxis Protonix -Minimal elevation of troponin secondary to shock and hypoxemia - Objective - Vital Signs Vital signs: Vital Signs Temp 97.8 F 12/12/20 12:00 Pulse 88 12/12/20 14:00 Resp 20 12/12/20 14:00 BP 122/80 12/12/20 14:00 Pulse Ox 93 L 12/12/20 14:00 Intake & Output 12/11/20 12/12/20 12/12/20 18:59 06:59 18:59 Intake Total 1794.130 620 110 Output Total 835 1000 2235 Balance 959.130 -380 -2125 Weight 89 kg Intake: IV 130 600 110 Sodium Chloride 0.9% 1, 10 000 ml @ 10 mls/hr IV . Q24H [facility] Rx#:[id number] Sodium Chloride 0.9% 1, 130 000 ml @ 130 mls/hr IV . Q7H42M STA Rx#:[id number] Sodium Chloride 0.9% 1, 600 100 000 ml @ 50 mls/hr IV . Q20H [facility] Rx#:[id number] Intake, IV Titration 864.130 20 Amount Azithromycin 500 mg In 250 Sodium Chloride 0.9% 250 ml @ 250 mls/hr IVPB Q24H [facility] Rx#:[id number] Heparin Sod,Pork in 0.45% 47.986 NaCl 25,000 unit In 0.45 % NaCl 1 250ml.bag @ 12 UNITS/KG/HR 10.032 mls/hr IV .Q24H [facility]VA Rx#: [id number] Norepinephrine 32 mg In 16.144 Sodium Chloride 0.9% 218 ml @ 0.05 MCG/KG/MIN 1. 959 mls/hr IV .Q24H [facility]VA Rx#:[id number] Sodium Chloride 0.9% 1, 550 20 000 ml @ 50 mls/hr IV . Q20H [facility]VA Rx#:[id number] Oral 800 Output: Urine 835 1000 2235 Other: Voiding Method Indwelling Catheter Indwelling Catheter Indwelling Catheter - Labs CBC & Chem 7: 12/12/20 03:05 12/12/20 03:05 Labs: Abnormal Lab Results - Last 24 Hours (Table) 12/11/20 12/11/20 12/11/20 Range/Units 03:06 16:54 20:15 RBC (4.30-5.90) m/uL Hgb (13.0-17.5) gm/dL Hct (39.0-53.0) % Plt Count (150-450) k/uL Lymphocytes # (1.0-4.8) k/uL Chloride (98-107) mmol/L BUN (9-20) mg/dL POC Glucose (mg/dL) 170 H 223 H (75-99) mg/dL Procalcitonin 4.22 H (0.02-0.09) ng/mL 12/12/20 12/12/20 Range/Units 03:05 03:05 RBC 3.55 L (4.30-5.90) m/uL Hgb 10.6 L (13.0-17.5) gm/dL Hct 33.0 L (39.0-53.0) % Plt Count 146 L (150-450) k/uL Lymphocytes # 0.7 L (1.0-4.8) k/uL Chloride 110 H (98-107) mmol/L BUN 27 H (9-20) mg/dL POC Glucose (mg/dL) (75-99) mg/dL Procalcitonin (0.02-0.09) ng/mL Microbiology - Last 24 Hours (Table) 12/10/20 20:52 Gram Stain - Preliminary Sputum Sputum Culture - Preliminary 12/10/20 13:43 Blood Culture - Preliminary Blood No Growth after 24 hours 12/10/20 13:43 Blood Culture - Preliminary Blood No Growth after 24 hours
[2020-12-12 17:05] LABS: Glucose,Whole Blood 209 mg/dL (75-99)
[2020-12-12 21:17] LABS: Glucose,Whole Blood 156 mg/dL (75-99)
[2020-12-12] MEDS: ATORVASTATIN 80 MG TAB PO SCH (21:41)
[2020-12-12] MEDS: INSULIN DETEMIR (LEVEMIR) 100 UNIT/ML SYR SQ SCH (21:42)
[2020-12-12] MEDS: ONDANSETRON 4 MG/2 ML VIAL IVP PRN (22:56)
[2020-12-13] MEDS: SODIUM CHLORIDE 0.9% 1,000 ML IV SCH ×2 (00:21→21:23)
[2020-12-13] MEDS: CEFEPIME 1 GM in SODIUM CHLORIDE 0.9% 50 ML IVPB SCH ×3 (00:21→21:20)
[2020-12-13] MEDS: IPRATROPIUM-ALBUTEROL 3 ML NEB INHALATION SCH ×4 (00:57→19:26)
[2020-12-13 05:40] LABS: Basophils % (A) 0 %; Eosinophils # (A) 0.2 k/uL (0-0.7); Eosinophils % (A) 2 %; HCT 35.3 % (39.0-53.0); HGB 11.7 gm/dL (13.0-17.5); Lymphocytes # (A) 0.7 k/uL (1.0-4.8); Lymphocytes % (A) 9 %; MCH 30.5 pg (25.0-35.0); MCHC 33.3 g/dL (31.0-37.0); MCV 91.8 fL (80.0-100.0); Mean Platelet Volume 8.2; Monocytes # (A) 0.5 k/uL (0-1.0); Monocytes % (A) 6 %; Neutrophils # (A) 6.4 k/uL (1.3-7.7); Neutrophils % (A) 79 %; Platelet Count 164 k/uL (150-450); RBC 3.84 m/uL (4.30-5.90); RDW 14.8 % (11.5-15.5); WBC 8.1 k/uL (3.8-10.6)
[2020-12-13 05:55] LABS: African American GFR (CKD) >90 (>60 ml/min/1.73 sqM); Anion Gap 6 mmol/L; Blood Urea Nitrogen 16 mg/dL (9-20); Carbon Dioxide 29 mmol/L (22-30); Chloride 108 mmol/L (98-107); Glucose 139 mg/dL (74-99); Non-African American GFR(CKD) 80 (>60 ml/min/1.73 sqM); Potassium 3.8 mmol/L (3.5-5.1); Sodium 143 mmol/L (137-145)
[2020-12-13 06:30] LABS: Glucose,Whole Blood 125 mg/dL (75-99)
[2020-12-13] MEDS: INSULIN ASPART (NovoLOG) 100 UNIT/ML VIAL SQ SCH ×4 (06:31→20:59)
[2020-12-13] MEDS ORDERED: Potassium Replacement Protocol 1 EACH MISC MISCELLANE PRN (06:34)
[2020-12-13] MEDS: POTASSIUM CHLORIDE 10 MEQ in WATER FOR INJECTION 1 100ML.BAG IVPB SCH ×2 (06:48→09:18)
[2020-12-13] MEDS: MIDODRINE 5 MG TAB PO SCH ×4 (07:03→17:09)
[2020-12-13] MEDS: GABAPENTIN 400 MG CAP PO SCH (07:03)
[2020-12-13] MEDS: PANTOPRAZOLE 40 MG TABLET PO SCH (07:03)
--- NOTE | 2020-12-13 07:55 | XR ---
EXAMINATION TYPE: XR chest 1V portable DATE OF EXAM: 12/13/2020 COMPARISON: 12/12/2020 HISTORY: Shortness of breath TECHNIQUE: Single frontal view of the chest is obtained. FINDINGS: Gross cardiomegaly. Atherosclerotic aorta. Patchy diffuse perihilar and interstitial airsp chelle opacities most suggestive of the edema or infection. This has decreased since prior exam. Small b ilateral pleural effusions. These findings are suggestive of congestive heart failure. Superimposed i nfectious/inflammatory processes, such as pneumonia are not excluded. No pneumothorax. IMPRESSION: 1. Findings are suggestive of improved congestive heart failure. Superimposed infectious/inflammatory process, such as pneumonia are not excluded.
[2020-12-13] MEDS ORDERED: FUROSEMIDE 10 MG/ML 4 ML VIAL IV STA (08:07)
[2020-12-13] MEDS: ASPIRIN 81 MG PO SCH (09:17)
[2020-12-13] MEDS: MAGNESIUM OXIDE 400 MG TAB PO SCH ×2 (09:17→20:58)
[2020-12-13] MEDS: buPROPion XL 300 MG TAB.ER.24H PO SCH (09:17)
[2020-12-13] MEDS: HEPARIN SODIUM,PORCINE/PF 5,000 UNIT/0.5 ML SYRINGE SQ SCH ×2 (09:17→20:58)
[2020-12-13] MEDS: allopurinoL 300 MG TAB PO SCH (09:17)
[2020-12-13] MEDS: FOLIC ACID 1 MG TAB PO SCH (09:17)
--- NOTE | 2020-12-13 11:08 | P.PN ---
Subjective Progress Note Date: 12/13/20 Principal diagnosis: Pneumonia 85-year-old male seen in the emergency room yesterday by Dr. Pascual, for weakness. Apparently he been having symptoms of weakness and dizziness, and unsteady gait, for a couple days prior to admission. He also apparently had some lightheadedness. He apparently had fallen a number of times maybe 4 or so. He did have a small laceration on his left cheek area. Apparently also, the patient did have decreased oral intake, and several episodes of emesis. The patient was denying any pain. Also denying any shortness of breath. Currently, he is resting comfortably in bed. He is on 5 L nasal cannula. Is getting saline at 130 mL an hour. He is on norepinephrine at 5 mcg/m and heparin via weightbase protocol. The patient has a history of esophageal cancer, CHF, COPD, diabetes mellitus, GERD, deafness, hyperlipidemia, hypertension, memory impairment, osteoarthritis, and gout among other things. White count 11.8, hemoglobin 11.8, hematocrit 36.6, platelet count 182,000. PTT is 43.3. Sodium and potassium were normal. Chlorides 108, CO2 23, anion gap normal, BUN 34 with a creatinine of 1.68. Troponin was 0.777. There was concern for possible non- ST segment elevation myocardial infarction. Chest x-ray seemed to suggest heart failure, although pneumonia cannot be ruled out. Computed tomography scan of the brain showed nothing acute. On 12/12/2020 patient seen in follow-up in the intensive care unit. He is awake and alert, oriented 3, appears to be in no acute distress, breathing comfortably, he is currently on 3 L of oxygen with a pulse ox of 92%. He has 0.9 normal seen infusing at 10 ML per hour, no other drips. He is in sinus mechanism with a rate of 75 BPM. Blood pressure stable, he is up in the chair, tolerating activity well, looking very comfortable, today's chest x-ray has been reviewed, showing worsening congestive heart failure, patchy diffuse perihilar and interstitial airspace opacities, and moderate bilateral pleural effusions, however superimposed infectious and inflammatory process could not be excluded. Patient was given 1 dose of Lasix this morning. Patient remains on the combination of cefepime and azithromycin. His blood and sputum cultures have been sent, blood culture is negative thus far, sputum culture is pending, preliminary Gram stain shows moderate PMNs, rare gram-positive cocci and rare budding yeast. Patient has had no fever or chills since admission. His lab work has been reviewed, his white blood cell count has significantly improved in the last couple of days, his white count is down to 7.7, hemoglobin is 10.6, sodium is 141, potassium is 4.2, chloride is 110, his renal profile has significantly improved, his BUN is 27 creatinine is 1.24. Patient's pro calc itonin came back elevated at 4.22 suggesting possibility of infection possibly related to pneumonia The patient is seen today 12/13/2020 in follow-up in the intensive care unit. He is currently sitting up in a chair at the bedside. Awake and alert in no acute distress. He is maintaining O2 saturations in the 90s on 5 L/m per nasal cannula. 0.9 normal saline at 10 MLS per hour. Microbiology has been negative. He remains on cefepime. Chest x-ray reveals improving congestive heart failure. Superimposed infection/inflammatory process not excluded. White count 8.1. Hemoglobin 11.7. Lymphocytes 0.7. Sodium 143. Potassium 3.8. Creatinine 0.80. Objective - Vital Signs Vital signs: Vital Signs Temp 98.1 F 12/13/20 08:00 Pulse 89 12/13/20 09:00 Resp 22 12/13/20 09:00 BP 132/72 12/13/20 09:00 Pulse Ox 91 L 12/13/20 09:00 Intake & Output 12/12/20 12/13/20 12/13/20 18:59 06:59 18:59 Intake Total 150 192.5 100 Output Total 2925 1600 75 Balance -2775 -1407.5 25 Weight 83.6 kg Intake: IV 150 70 Sodium Chloride 0.9% 1, 50 70 000 ml @ 10 mls/hr IV . Q24H [facility] Rx#:[id number] Sodium Chloride 0.9% 1, 100 000 ml @ 50 mls/hr IV . Q20H [facility] Rx#:[id number] Intake, IV Titration 62.5 100 Amount Cefepime 1 gm In Sodium 62.5 Chloride 0.9% 50 ml @ 12. 5 mls/hr IVPB Q12H [facility] Rx #:[id number] Potassium Chloride 10 meq 100 In Water For Injection 1 100ml.bag @ 100 mls/hr IVPB Q1H [facility] Rx#: [id number] Oral 60 Output: Urine 2925 1600 75 Other: Voiding Method Indwelling Catheter Indwelling Catheter - Exam GENERAL EXAM: Alert, very pleasant, 85-year-old male patient, on 5 L breathing comfortably comfortable in no apparent distress. HEAD: Normocephalic/atraumatic. EYES: Normal reaction of pupils, equal size. Conjunctiva pink, sclera white. NOSE: Clear with pink turbinates. THROAT: No erythema or exudates. NECK: No masses, no JVD, no thyroid enlargement, no adenopathy. CHEST: No chest wall deformity. Symmetrical expansion. LUNGS: Equal air entry with complicated rhonchi, bibasilar crackles and diminished breath sounds CVS: Regular rate and rhythm, normal S1 and S2, no gallops, no murmurs, no rubs ABDOMEN: Soft, nontender. No hepatosplenomegaly, normal bowel sounds, no guarding or rigidity. EXTREMITIES: No clubbing, no edema, no cyanosis, 2+ pulses and upper and lower extremities. MUSCULOSKELETAL: Muscle strength and tone normal. SPINE: No scoliosis or deformity SKIN: No rashes CENTRAL NERVOUS SYSTEM: No focal deficits, tone is normal in all 4 extremities. PSYCHIATRIC: Alert and oriented -3. Appropriate affect. Intact judgment and insight. - Labs CBC & Chem 7: 12/13/20 05:20 12/13/20 05:20 Labs: Abnormal Lab Results - Last 24 Hours (Table) 12/12/20 12/12/20 12/13/20 Range/Units 17:04 21:04 05:20 RBC 3.84 L (4.30-5.90) m/uL Hgb 11.7 L (13.0-17.5) gm/dL Hct 35.3 L (39.0-53.0) % Lymphocytes # 0.7 L (1.0-4.8) k/uL Chloride (98-107) mmol/L Glucose (74-99) mg/dL POC Glucose (mg/dL) 209 H 156 H (75-99) mg/dL 12/13/20 12/13/20 Range/Units 05:20 06:29 RBC (4.30-5.90) m/uL Hgb (13.0-17.5) gm/dL Hct (39.0-53.0) % Lymphocytes # (1.0-4.8) k/uL Chloride 108 H (98-107) mmol/L Glucose 139 H (74-99) mg/dL POC Glucose (mg/dL) 125 H (75-99) mg/dL Microbiology - Last 24 Hours (Table) 12/10/20 13:43 Blood Culture - Preliminary Blood No Growth after 48 hours 12/10/20 13:43 Blood Culture - Preliminary Blood No Growth after 48 hours Assessment and Plan Assessment: 1 Hypotension, multifactorial, in part related to sepsis and septic shock and/or non-ST elevated myocardial infarction, recovered 2 Acute hypoxic respiratory failure related to pneumonia, community acquired, and acute exacerbation of CHF 3 Severe aortic stenosis with peak/mean gradient across the aortic valve of 85.4 mmHg/48.08 mmHg, transthoracic echocardiogram could not exclude vegetation of aortic valve. 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 Akhtar Chest x-ray and labs reviewed We'll give additional Lasix 40 mg IVP 1 today Titrate down his FiO2 as tolerated Increase his activity as tolerated Can be transferred to the selective care unit once a bed is available We will continue to follow. I, the cosigning physician, performed a history & physical examination of the patient. Lungs sounds few scattered rhonchi, crackles in the bases, diminished. Maintaining good O2 saturations in the 90s on 5 L/m per nasal cannula. I di scussed the assessment and plan of care with my nurse practitioner, Heather Lara. I attest to the above note as dictated by her.
[2020-12-13 11:55] LABS: Glucose,Whole Blood 181 mg/dL (75-99)
[2020-12-13] MEDS ORDERED: ACETAMINOPHEN TAB 325 MG TAB PO PRN (12:53)
--- NOTE | 2020-12-13 13:27 | P.PN ---
Subjective Patient is admitted for weakness dizziness shortness of breath and hypoxemia patient is found to be in shock. Clinically patient appears to be in cardiac shock. Chest x-ray is consistent with CHF. Patient doesn't have any significant cough. Although patient pro calcitonin is elevated to above 4. Patient is presently on cefepime and being treated for septic shock as that cannot be ruled out at this time. Patient BNP is only in 500s. Patient's creatinine is presently 1.68 came down from 2 patient baseline creatinine appears to be around 1.1. Patient is presently on norepinephrine which is being weaned off. troponin as minimally elevated to 0.77. 12/12/2020 Patient had an episode of respiratory distress requiring BiPAP today. This improved after IV Lasix. Sputum cultures are so far negative clinically patient appears to be in heart failure exacerbation. 12/13/2020 Patient is awake alert and presently 3 L of oxygen, gets confused at nighttime will use Seroquel as-needed basis at 12.5 for agitation if there is any. Chardon was discontinued will cut down the dose of gabapentin. Patient delirium is secondary to hospitalization and ICU delirium. Patient remains on cefepime although patient appears to have congestive heart failure rather pneumonia. Patient received IV Lasix with significant urine output and significant improvement in his respiratory status will be one more 20 mg of IV Lasix and will start him on 40 mg of IV Lasix and daily basis. Chest x-ray showed improvement in infiltrate. All the cultures are so far negative. Creatinine improved. PHYSICAL EXAMINATION: GENERAL: The patient is alert and oriented x3, not in any acute distress. Well developed, well nourished. HEENT: Pupils are round and equally reacting to light. EOMI. No scleral icterus. No conjunctival pallor. Normocephalic, atraumatic. No pharyngeal erythema. No thyromegaly. CARDIOVASCULAR: S1 and S2 present. No murmurs, rubs, or gallops. PULMONARY: His bilateral crackles ABDOMEN: Soft, nontender, nondistended, normoactive bowel sounds. No palpable organomegaly. MUSCULOSKELETAL: No joint swelling or deformity. EXTREMITIES: No cyanosis, clubbing, does have pedal edema NEUROLOGICAL: Gross neurological examination did not reveal any focal deficits. SKIN: No rashes. Assessment and plan Shock: Patient most probably had cardiac shock, Lasix as mentioned above patient has chronic diastolic dysfunction he of around 70%. Low possibility of septic shock. Patient for now will be continued with cefepime. Patient had impr ovement in chest x-ray findings of with Lasix and has good and good urine output with Lasix. -Acute hypoxic respiratory failure secondary to CHF -Severe pulmonary hypertension -Congestive heart failure chronic diastolic dysfunction with acute exacerbation -Possibly of pneumonia cannot be ruled out -Type 2 diabetes mellitus -Gastroesophageal reflux disease -Hyperlipidemia next and heparin hypertension patient is presently hypotensive as in and is in septic shock -History of esophageal cancer status post radiation therapy and chemotherapy presently in remission patient last received any therapy for that was in 2018 -Chronic kidney disease stage II possibly diabetic nephropathy -Acute renal failure renal azotemia and/or acute tubular necrosis secondary to sepsis -DVT prophylaxis subcutaneous heparin GI prophylaxis Protonix -Minimal elevation of troponin secondary to shock and hypoxemia - Objective - Vital Signs Vital signs: Vital Signs Temp 98.1 F 12/13/20 08:00 Pulse 82 12/13/20 13:08 Resp 13 12/13/20 12:00 BP 121/77 12/13/20 11:00 Pulse Ox 93 L 12/13/20 11:00 Intake & Output 12/12/20 12/13/20 12/13/20 18:59 06:59 18:59 Intake Total 150 192.5 190 Output Total 2925 1600 1860 Balance -2775 -1407.5 -1670 Weight 83.6 kg Intake: IV 150 70 90 Cefepime 1 gm In Sodium 50 Chloride 0.9% 50 ml @ 12. 5 mls/hr IVPB Q12H [facility] Rx #:[id number] Sodium Chloride 0.9% 1, 50 70 40 000 ml @ 10 mls/hr IV . Q24H [facility] Rx#:[id number] Sodium Chloride 0.9% 1, 100 000 ml @ 50 mls/hr IV . Q20H [facility] Rx#:[id number] Intake, IV Titration 62.5 100 Amount Cefepime 1 gm In Sodium 62.5 Chloride 0.9% 50 ml @ 12. 5 mls/hr IVPB Q12H [facility] Rx #:[id number] Potassium Chloride 10 meq 100 In Water For Injection 1 100ml.bag @ 100 mls/hr IVPB Q1H [facility] Rx#: [id number] Oral 60 Output: Urine 2925 1600 1860 Other: Voiding Method Indwelling Catheter Indwelling Catheter Indwelling Catheter - Labs CBC & Chem 7: 12/13/20 05:20 12/13/20 05:20 Labs: Abnormal Lab Results - Last 24 Hours (Table) 12/12/20 12/12/20 12/13/20 Range/Units 17:04 21:04 05:20 RBC 3.84 L (4.30-5.90) m/uL Hgb 11.7 L (13.0-17.5) gm/dL Hct 35.3 L (39.0-53.0) % Lymphocytes # 0.7 L (1.0-4.8) k/uL Chloride (98-107) mmol/L Glucose (74-99) mg/dL POC Glucose (mg/dL) 209 H 156 H (75-99) mg/dL 12/13/20 12/13/20 12/13/20 Range/Units 05:20 06:29 11:54 RBC (4.30-5.90) m/uL Hgb (13.0-17.5) gm/dL Hct (39.0-53.0) % Lymphocytes # (1.0-4.8) k/uL Chloride 108 H (98-107) mmol/L Glucose 139 H (74-99) mg/dL POC Glucose (mg/dL) 125 H 181 H (75-99) mg/dL Microbiology - Last 24 Hours (Table) 12/10/20 20:52 Gram Stain - Preliminary Sputum Sputum Culture - Preliminary 12/10/20 13:43 Blood Culture - Preliminary Blood No Growth after 48 hours 12/10/20 13:43 Blood Culture - Preliminary Blood No Growth after 48 hours
[2020-12-13 16:39] LABS: Glucose,Whole Blood 142 mg/dL (75-99)
[2020-12-13] MEDS: GABAPENTIN 100 MG CAP PO SCH (17:12)
[2020-12-13] MEDS ORDERED: FUROSEMIDE 10 MG/ML 2 ML VIAL IV ONE (17:17)
[2020-12-13 20:47] LABS: Glucose,Whole Blood 174 mg/dL (75-99)
[2020-12-13] MEDS: ATORVASTATIN 80 MG TAB PO SCH (20:58)
[2020-12-13] MEDS: INSULIN DETEMIR (LEVEMIR) 100 UNIT/ML SYR SQ SCH (20:59)
[2020-12-13] MEDS: ONDANSETRON 4 MG/2 ML VIAL IVP PRN (23:24)
[2020-12-13] MEDS: QUEtiapine 25 MG TAB PO PRN (23:31)
[2020-12-14 06:47] LABS: Glucose,Whole Blood 105 mg/dL (75-99)
[2020-12-14] MEDS: INSULIN ASPART (NovoLOG) 100 UNIT/ML VIAL SQ SCH ×4 (06:50→22:09)
[2020-12-14 07:08] LABS: HCT 38.5 % (39.0-53.0); HGB 12.1 gm/dL (13.0-17.5); MCH 29.3 pg (25.0-35.0); MCHC 31.5 g/dL (31.0-37.0); MCV 92.9 fL (80.0-100.0); Mean Platelet Volume 7.6; Platelet Count 178 k/uL (150-450); RBC 4.14 m/uL (4.30-5.90); RDW 15.2 % (11.5-15.5)
[2020-12-14] MEDS: PANTOPRAZOLE 40 MG TABLET PO SCH (07:08)
[2020-12-14] MEDS: GABAPENTIN 100 MG CAP PO SCH ×2 (07:08→17:28)
[2020-12-14] MEDS: MIDODRINE 5 MG TAB PO SCH ×4 (07:08→17:26)
[2020-12-14 07:28] LABS: African American GFR (CKD) >90 (>60 ml/min/1.73 sqM); Anion Gap 8 mmol/L; Blood Urea Nitrogen 18 mg/dL (9-20); Calcium 9.5 mg/dL (8.4-10.2); Carbon Dioxide 27 mmol/L (22-30); Chloride 107 mmol/L (98-107); Glucose 92 mg/dL (74-99); Non-African American GFR(CKD) 79 (>60 ml/min/1.73 sqM); Potassium 3.9 mmol/L (3.5-5.1); Sodium 142 mmol/L (137-145)
[2020-12-14] MEDS: IPRATROPIUM-ALBUTEROL 3 ML NEB INHALATION SCH ×4 (08:23→20:34)
[2020-12-14] MEDS ORDERED: FUROSEMIDE 10 MG/ML 4 ML VIAL IV SCH (09:00)
[2020-12-14] MEDS: ASPIRIN 81 MG PO SCH (09:11)
[2020-12-14] MEDS: MAGNESIUM OXIDE 400 MG TAB PO SCH ×2 (09:11→22:10)
[2020-12-14] MEDS: FOLIC ACID 1 MG TAB PO SCH (09:13)
[2020-12-14] MEDS: allopurinoL 300 MG TAB PO SCH (09:13)
[2020-12-14] MEDS: HEPARIN SODIUM,PORCINE/PF 5,000 UNIT/0.5 ML SYRINGE SQ SCH ×2 (09:13→22:09)
[2020-12-14] MEDS: AZITHROMYCIN 500 MG TAB PO SCH (09:13)
[2020-12-14] MEDS: buPROPion XL 300 MG TAB.ER.24H PO SCH (09:13)
--- NOTE | 2020-12-14 10:50 | P.PN ---
Subjective Progress Note Date: 12/14/20 Principal diagnosis: Pneumonia 85-year-old male seen in the emergency room yesterday by Dr. Pascual, for weakness. Apparently he been having symptoms of weakness and dizziness, and unsteady gait, for a couple days prior to admission. He also apparently had some lightheadedness. He apparently had fallen a number of times maybe 4 or so. He did have a small laceration on his left cheek area. Apparently also, the patient did have decreased oral intake, and several episodes of emesis. The patient was denying any pain. Also denying any shortness of breath. Currently, he is resting comfortably in bed. He is on 5 L nasal cannula. Is getting saline at 130 mL an hour. He is on norepinephrine at 5 mcg/m and heparin via weightbase protocol. The patient has a history of esophageal cancer, CHF, COPD, diabetes mellitus, GERD, deafness, hyperlipidemia, hypertension, memory impairment, osteoarthritis, and gout among other things. White count 11.8, hemoglobin 11.8, hematocrit 36.6, platelet count 182,000. PTT is 43.3. Sodium and potassium were normal. Chlorides 108, CO2 23, anion gap normal, BUN 34 with a creatinine of 1.68. Troponin was 0.777. There was concern for possible non- ST segment elevation myocardial infarction. Chest x-ray seemed to suggest heart failure, although pneumonia cannot be ruled out. Computed tomography scan of the brain showed nothing acute. On 12/12/2020 patient seen in follow-up in the intensive care unit. He is awake and alert, oriented 3, appears to be in no acute distress, breathing comfortably, he is currently on 3 L of oxygen with a pulse ox of 92%. He has 0.9 normal seen infusing at 10 ML per hour, no other drips. He is in sinus mechanism with a rate of 75 BPM. Blood pressure stable, he is up in the chair, tolerating activity well, looking very comfortable, today's chest x-ray has been reviewed, showing worsening congestive heart failure, patchy diffuse perihilar and interstitial airspace opacities, and moderate bilateral pleural effusions, however superimposed infectious and inflammatory process could not be excluded. Patient was given 1 dose of Lasix this morning. Patient remains on the combination of cefepime and azithromycin. His blood and sputum cultures have been sent, blood culture is negative thus far, sputum culture is pending, preliminary Gram stain shows moderate PMNs, rare gram-positive cocci and rare budding yeast. Patient has had no fever or chills since admission. His lab work has been reviewed, his white blood cell count has significantly improved in the last couple of days, his white count is down to 7.7, hemoglobin is 10.6, sodium is 141, potassium is 4.2, chloride is 110, his renal profile has significantly improved, his BUN is 27 creatinine is 1.24. Patient's pro calc itonin came back elevated at 4.22 suggesting possibility of infection possibly related to pneumonia The patient is seen today 12/13/2020 in follow-up in the intensive care unit. He is currently sitting up in a chair at the bedside. Awake and alert in no acute distress. He is maintaining O2 saturations in the 90s on 5 L/m per nasal cannula. 0.9 normal saline at 10 MLS per hour. Microbiology has been negative. He remains on cefepime. Chest x-ray reveals improving congestive heart failure. Superimposed infection/inflammatory process not excluded. White count 8.1. Hemoglobin 11.7. Lymphocytes 0.7. Sodium 143. Potassium 3.8. Creatinine 0.80. The patient is seen today 12/14/2020 in follow-up in the intensive care unit. He is currently resting comfortably in bed. Awake and alert in no acute distress. He is having some ongoing issues with confusion. A and O times one this morning. He is currently maintaining good O2 saturations in the mid 90s on 4 L/m per nasal cannula. He's been afebrile. Hemodynamically stable. His 0.9 normal saline at 10 mL per hour. Remains on IV diuretics. Remains on cefepime. Blood cultures reveal no growth. Sputum culture pending. White count 7.0. Hemoglobin 12.1. Sodium 142. Potassium 3.9. Creatinine 0.90. Objective - Vital Signs Vital signs: Vital Signs Temp 97.9 F 12/14/20 08:00 Pulse 73 12/14/20 08:35 Resp 16 12/14/20 08:00 BP 122/64 12/14/20 08:00 Pulse Ox 96 12/14/20 08:00 Intake & Output 12/13/20 12/14/20 12/14/20 18:59 06:59 18:59 Intake Total 230 270 440 Output Total 2470 1365 145 Balance -2130 -3271 295 Weight 81.4 kg Intake: IV 130 170 30 Cefepime 1 gm In Sodium 50 50 Chloride 0.9% 50 ml @ 12. 5 mls/hr IVPB Q12H [facility] Rx #:[id number] Sodium Chloride 0.9% 1, 80 120 30 000 ml @ 10 mls/hr IV . Q24H [facility] Rx#:[id number] Intake, IV Titration 100 Amount Potassium Chloride 10 meq 100 In Water For Injection 1 100ml.bag @ 100 mls/hr IVPB Q1H [facility] Rx#: [id number] Oral 100 410 Output: Urine 2470 1365 145 Other: Voiding Method Indwelling Catheter Indwelling Catheter Indwelling Catheter - Exam GENERAL EXAM: Alert, very pleasant, 85-year-old male patient, on 4 L breathing comfortably comfortable in no apparent distress. HEAD: Normocephalic/atraumatic. EYES: Normal reaction of pupils, equal size. Conjunctiva pink, sclera white. NOSE: Clear with pink turbinates. THROAT: No erythema or exudates. NECK: No masses, no JVD, no thyroid enlargement, no adenopathy. CHEST: No chest wall deformity. Symmetrical expansion. LUNGS: Equal air entry with few scattered rhonchi, bibasilar crackles and diminished breath sounds CVS: Regular rate and rhythm, normal S1 and S2, no gallops, no murmurs, no rubs ABDOMEN: Soft, nontender. No hepatosplenomegaly, normal bowel sounds, no guarding or rigidity. EXTREMITIES: No clubbing, no edema, no cyanosis, 2+ pulses and upper and lower extremities. MUSCULOSKELETAL: Muscle strength and tone normal. SPINE: No scoliosis or deformity SKIN: No rashes CENTRAL NERVOUS SYSTEM: No focal deficits, tone is normal in all 4 extremities. PSYCHIATRIC: Alert and oriented -1. Appropriate affect. Intact judgment and insight. - Labs CBC & Chem 7: 12/14/20 06:29 12/14/20 06:29 Labs: Abnormal Lab Results - Last 24 Hours (Table) 12/13/20 12/13/20 12/13/20 Range/Units 11:54 16:37 20:45 RBC (4.30-5.90) m/uL Hgb (13.0-17.5) gm/dL Hct (39.0-53.0) % POC Glucose (mg/dL) 181 H 142 H 174 H (75-99) mg/dL 12/14/20 12/14/20 Range/Units 06:29 06:46 RBC 4.14 L (4.30-5.90) m/uL Hgb 12.1 L (13.0-17.5) gm/dL Hct 38.5 L (39.0-53.0) % POC Glucose (mg/dL) 105 H (75-99) mg/dL Microbiology - Last 24 Hours (Table) 12/10/20 13:43 Blood Culture - Preliminary Blood No Growth after 72 hours 12/10/20 13:43 Blood Culture - Preliminary Blood No Growth after 72 hours 12/10/20 20:52 Gram Stain - Preliminary Sputum Sputum Culture - Preliminary Assessment and Plan Assessment: 1 Hypotension, multifactorial, in part related to sepsis and septic shock and/or non-ST elevated myocardial infarction, recovered 2 Acute hypoxic respiratory failure related to pneumonia, community acquired, and acute exacerbation of CHF 3 Severe aortic stenosis with peak/mean gradient across the aortic valve of 85.4 mmHg/48.08 mmHg, transthoracic echocardiogram could not exclude vegetation of aortic valve. 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 Akhtar He is cleared for transfer out of the ICU to the regular medical floor Discontinue cefepime. Initiate Zithromax Change Lasix to by mouth Discontinue Martinez PIVL IV Titrate down his FiO2 as tolerated Increase his activity as tolerated We will continue to follow. I, the cosigning physician, performed a history & physical examination of the patient. Lungs sounds few scattered rhonchi, crackles in the bases, diminished. Maintaining good O2 saturations in the 90s on 4 L/m per nasal cannula. I discussed the assessment and plan of care with my nurse practitioner, Heather Lara. I attest to the above note as dictated by her.
[2020-12-14 11:32] LABS: Glucose,Whole Blood 148 mg/dL (75-99)
[2020-12-14] MEDS: HEPARIN SOD,PORK IN 0.45% NACL 25,000 UNIT in 0.45% NACL 1 250ML.BAG IV SCH (11:54)
[2020-12-14] MEDS: NOREPINEPHRINE 32 MG in SODIUM CHLORIDE 0.9% 218 ML IV SCH (11:54)
[2020-12-14 16:48] LABS: Glucose,Whole Blood 210 mg/dL (75-99)
--- NOTE | 2020-12-14 17:36 | P.PN ---
Subjective Patient is admitted for weakness dizziness shortness of breath and hypoxemia patient is found to be in shock. Clinically patient appears to be in cardiac shock. Chest x-ray is consistent with CHF. Patient doesn't have any significant cough. Although patient pro calcitonin is elevated to above 4. Patient is presently on cefepime and being treated for septic shock as that cannot be ruled out at this time. Patient BNP is only in 500s. Patient's creatinine is presently 1.68 came down from 2 patient baseline creatinine appears to be around 1.1. Patient is presently on norepinephrine which is being weaned off. troponin as minimally elevated to 0.77. 12/12/2020 Patient had an episode of respiratory distress requiring BiPAP today. This improved after IV Lasix. Sputum cultures are so far negative clinically patient appears to be in heart failure exacerbation. 12/13/2020 Patient is awake alert and presently 3 L of oxygen, gets confused at nighttime will use Seroquel as-needed basis at 12.5 for agitation if there is any. [place] was discontinued will cut down the dose of gabapentin. Patient delirium is secondary to hospitalization and ICU delirium. Patient remains on cefepime although patient appears to have congestive heart failure rather pneumonia. Patient received IV Lasix with significant urine output and significant improvement in his respiratory status will be one more 20 mg of IV Lasix and will start him on 40 mg of IV Lasix and daily basis. Chest x-ray showed improvement in infiltrate. All the cultures are so far negative. Creatinine improved. 12/14/2020 Patient can use to have confusion his overall clinical condition continued to improve patient is on 3 L of oxygen saturating well. Patient was switched to oral Lasix will order basic metabolic profile again tomorrow PHYSICAL EXAMINATION: GENERAL: The patient is alert and oriented x3, not in any acute distress. Well developed, well nourished. HEENT: Pupils are round and equally reacting to light. EOMI. No scleral icterus. No conjunctival pallor. Normocephalic, atraumatic. No pharyngeal erythema. No thyromegaly. CARDIOVASCULAR: S1 and S2 present. No murmurs, rubs, or gallops. PULMONARY: His bilateral crackles ABDOMEN: Soft, nontender, nondistended, normoactive bowel sounds. No palpable organomegaly. MUSCULOSKELETAL: No joint swelling or deformity. EXTREMITIES: No cyanosis, clubbing, does have pedal edema NEUROLOGICAL: Gross neurological examination did not reveal any focal deficits. SKIN: No rashes. Assessment and plan Shock: Patient most probably had cardiac shock, Lasix as mentioned above patient has chronic diastolic dysfunction he of around 70%. Low possibility of septic shock. Patient for now will be continued with cefepime. Patient had improvement in chest x-ray findings of with Lasix and , patient is presently on oral Lasix. -Acute hypoxic respiratory failure secondary to CHF -Severe pulmonary hypertension -Congestive heart failure chronic diastolic dysfunction with acute exacerbation -Possibly of pneumonia cannot be ruled out -Type 2 diabetes mellitus -Gastroesophageal reflux disease -Hyperlipidemia next and heparin hypertension patient is presently hypotensive as in and is in septic shock -History of esophageal cancer status post radiation therapy and chemotherapy presently in remission patient last received any therapy for that was in 2018 -Chronic kidney disease stage II possibly diabetic nephropathy -Acute renal failure renal azotemia and/or acute tubular necrosis secondary to sepsis -DVT prophylaxis subcutaneous heparin GI prophylaxis Protonix -Minimal elevation of troponin secondary to shock and hypoxemia - Objective - Vital Signs Vital signs: Vital Signs Temp 97.3 F L 12/14/20 14:00 Pulse 78 12/14/20 16:54 Resp 18 12/14/20 14:00 BP 130/66 12/14/20 14:00 Pulse Ox 96 12/14/20 14:00 Intake & Output 12/13/20 12/14/20 12/14/20 18:59 06:59 18:59 Intake Total 230 270 440 Output Total 2470 1365 145 Balance -2240 -1095 295 Weight 81.4 kg Intake: IV 130 170 30 Cefepime 1 gm In Sodium 50 50 Chloride 0.9% 50 ml @ 12. 5 mls/hr IVPB Q12H [facility] Rx #:[id number] Sodium Chloride 0.9% 1, 80 120 30 000 ml @ 10 mls/hr IV . Q24H [facility] Rx#:[id number] Intake, IV Titration 100 Amount Potassium Chloride 10 meq 100 In Water For Injection 1 100ml.bag @ 100 mls/hr IVPB Q1H [facility] Rx#: [id number] Oral 100 410 Output: Urine 2470 1365 145 Other: Voiding Method Indwelling Catheter Indwelling Catheter Indwelling Catheter # Voids 1 - Labs CBC & Chem 7: 12/14/20 06:29 12/14/20 06:29 Labs: Abnormal Lab Results - Last 24 Hours (Table) 12/13/20 12/14/20 12/14/20 Range/Units 20:45 06:29 06:46 RBC 4.14 L (4.30-5.90) m/uL Hgb 12.1 L (13.0-17.5) gm/dL Hct 38.5 L (39.0-53.0) % POC Glucose (mg/dL) 174 H 105 H (75-99) mg/dL 12/14/20 12/14/20 Range/Units 11:31 16:47 RBC (4.30-5.90) m/uL Hgb (13.0-17.5) gm/dL Hct (39.0-53.0) % POC Glucose (mg/dL) 148 H 210 H (75-99) mg/dL Microbiology - Last 24 Hours (Table) 12/10/20 13:43 Blood Culture - Preliminary Blood No Growth after 96 hours 12/10/20 13:43 Blood Culture - Preliminary Blood No Growth after 96 hours 12/10/20 20:52 Gram Stain - Preliminary Sputum Sputum Culture - Preliminary Maria L glabrata Maria L albicans Presumptive Staph aureus
[2020-12-14 21:00] LABS: Glucose,Whole Blood 162 mg/dL (75-99)
[2020-12-14] MEDS: ATORVASTATIN 80 MG TAB PO SCH (22:09)
[2020-12-14] MEDS: INSULIN DETEMIR (LEVEMIR) 100 UNIT/ML SYR SQ SCH (22:09)
[2020-12-15 07:07] LABS: Glucose,Whole Blood 190 mg/dL (75-99)
[2020-12-15] MEDS: INSULIN ASPART (NovoLOG) 100 UNIT/ML VIAL SQ SCH ×4 (07:42→20:58)
[2020-12-15] MEDS: HEPARIN SODIUM,PORCINE/PF 5,000 UNIT/0.5 ML SYRINGE SQ SCH ×2 (07:42→20:58)
[2020-12-15] MEDS: ASPIRIN 81 MG PO SCH (07:42)
[2020-12-15] MEDS: MIDODRINE 5 MG TAB PO SCH ×3 (07:42→18:16)
[2020-12-15] MEDS: FOLIC ACID 1 MG TAB PO SCH (07:43)
[2020-12-15] MEDS: MAGNESIUM OXIDE 400 MG TAB PO SCH ×2 (07:43→20:58)
[2020-12-15] MEDS: FUROSEMIDE 40 MG TAB PO SCH (07:43)
[2020-12-15] MEDS: allopurinoL 300 MG TAB PO SCH (07:43)
[2020-12-15] MEDS: buPROPion XL 300 MG TAB.ER.24H PO SCH (07:43)
[2020-12-15] MEDS: GABAPENTIN 100 MG CAP PO SCH ×2 (07:43→18:16)
[2020-12-15] MEDS: PANTOPRAZOLE 40 MG TABLET PO SCH (07:43)
[2020-12-15] MEDS: AZITHROMYCIN 500 MG TAB PO SCH (07:49)
[2020-12-15] MEDS ORDERED: VANCOMYCIN IV PER PHARMACY 1 EACH MISC MISCELLANE PRN (08:23)
[2020-12-15] MEDS: IPRATROPIUM-ALBUTEROL 3 ML NEB INHALATION SCH ×5 (08:26→19:47)
[2020-12-15] MEDS ORDERED: VANCOMYCIN 1,500 MG in SODIUM CHLORIDE 0.9% 250 ML IVPB ONE (08:30)
[2020-12-15] MEDS ORDERED: FUROSEMIDE 10 MG/ML 4 ML VIAL IV STA (09:33)
[2020-12-15 10:43] LABS: African American GFR (CKD) 91.2 (60.0-200.0); Anion Gap 9.5 mmol/L (4.00-12.00); BUN/Creat Ratio 21.11 Ratio (12.00-20.00); Carbon Dioxide 26.5 mmol/L (21.6-31.8); Non-African American GFR(CKD) 78.7 (60.0-200.0); Potassium 4.2 mmol/L (3.5-5.5)
--- NOTE | 2020-12-15 11:11 | P.PN ---
Subjective Patient is admitted for weakness dizziness shortness of breath and hypoxemia patient is found to be in shock. Clinically patient appears to be in cardiac shock. Chest x-ray is consistent with CHF. Patient doesn't have any significant cough. Although patient pro calcitonin is elevated to above 4. Patient is presently on cefepime and being treated for septic shock as that cannot be ruled out at this time. Patient BNP is only in 500s. Patient's creatinine is presently 1.68 came down from 2 patient baseline creatinine appears to be around 1.1. Patient is presently on norepinephrine which is being weaned off. troponin as minimally elevated to 0.77. 12/12/2020 Patient had an episode of respiratory distress requiring BiPAP today. This improved after IV Lasix. Sputum cultures are so far negative clinically patient appears to be in heart failure exacerbation. 12/13/2020 Patient is awake alert and presently 3 L of oxygen, gets confused at nighttime will use Seroquel as-needed basis at 12.5 for agitation if there is any. [place] was discontinued will cut down the dose of gabapentin. Patient delirium is secondary to hospitalization and ICU delirium. Patient remains on cefepime although patient appears to have congestive heart failure rather pneumonia. Patient received IV Lasix with significant urine output and significant improvement in his respiratory status will be one more 20 mg of IV Lasix and will start him on 40 mg of IV Lasix and daily basis. Chest x-ray showed improvement in infiltrate. All the cultures are so far negative. Creatinine improved. 12/14/2020 Patient can use to have confusion his overall clinical condition continued to improve patient is on 3 L of oxygen saturating well. Patient was switched to oral Lasix will order basic metabolic profile again tomorrow 12/15/2020 Patient confusion is much better today patient is able to sleep last night because of the Seroquel patient is expected to have confusion again related today. Patient is saturating well on 3 L will can you to wean this off patient has significant swelling in bilateral lower extremities will order IV Lasix today 1 dose. Continue with oral Lasix. Patient was started on vancomycin by pulmonary because of her sputum culture showing MRSA and patient does have Maria L in the sputum. Constitutional: Denied any fatigue denied any fever. Cardio vascular: denied any chest pain, palpitations Gastrointestinal denied any nausea vomiting Pulmonary: Denied any shortness of breath cough Neurologic denied any new focal deficits All inpatient medications were reviewed and appropriate changes in these medications as dictated in the interval history and assessment and plan. PHYSICAL EXAMINATION: GENERAL: The patient is alert and oriented x3, not in any acute distress. Well developed, well nourished. HEENT: Pupils are round and equally reacting to light. EOMI. No scleral icterus. No conjunctival pallor. Normocephalic, atraumatic. No pharyngeal erythema. No thyromegaly. CARDIOVASCULAR: S1 and S2 present. No murmurs, rubs, or gallops. PULMONARY: His bilateral crackles ABDOMEN: Soft, nontender, nondistended, normoactive bowel sounds. No palpable organomegaly. MUSCULOSKELETAL: No joint swelling or deformity. EXTREMITIES: No cyanosis, clubbing, does have pedal edema NEUROLOGICAL: Gross neurological examination did not reveal any focal deficits. SKIN: No rashes. Assessment and plan Shock: Patient most probably had cardiogenic shock, Lasix as mentioned above patient has chronic diastolic dysfunction he of around 70%. Low possibility of septic shock. Patient will be given 1 more dose of IV Lasix today patient still has significant bilateral pedal edema. Patient's sputum is showing MRSA because of which patient was started on vancomycin Patient had improvement in chest x- ray findings of with Lasix and , patient is presently on oral Lasix. -Acute hypoxic respiratory failure secondary to CHF -Severe pulmonary hypertension -Congestive heart failure chronic diastolic dysfunction with acute exacerbation -Possibly of MRSA pneumonia on vancomycin -Type 2 diabetes mellitus -Gastroesophageal reflux disease -Hyperlipidemia - hypertension blood pressures better now patient shock resolved -History of esophageal cancer status post radiation therapy and chemotherapy presently in remission patient last received any therapy for that was in 2018 -Chronic kidney disease stage II possibly diabetic nephropathy -Acute renal failure renal azotemia and/or acute tubular necrosis secondary to sepsis -DVT prophylaxis subcutaneous heparin GI prophylaxis Protonix -Minimal elevation of troponin secondary to shock and hypoxemia - Objective - Vital Signs Vital signs: Vital Signs Temp 97.6 F 12/15/20 08:00 Pulse 77 12/15/20 08:00 Resp 16 12/15/20 08:00 BP 113/68 12/15/20 08:00 Pulse Ox 95 12/15/20 08:00 Intake & Output 12/14/20 12/15/20 12/15/20 18:59 06:59 18:59 Intake Total 440 Output Total 145 100 Balance 295 -100 Intake: IV 30 Sodium Chloride 0.9% 1, 30 000 ml @ 10 mls/hr IV . Q24H [facility] OF [facility] Rx#:[id number] Oral 410 Output: Urine 145 100 Other: Voiding Method Indwelling Catheter Indwelling Catheter Indwelling Catheter # Voids 2 3 - Labs CBC & Chem 7: 12/14/20 06:29 12/15/20 06:17 Labs: Abnormal Lab Results - Last 24 Hours (Table) 12/14/20 12/14/20 12/14/20 Range/Units 11:31 16:47 20:59 BUN/Creatinine Ratio (12.00-20.00) Ratio Glucose (70-110) mg/dL POC Glucose (mg/dL) 148 H 210 H 162 H (75-99) mg/dL 12/15/20 12/15/20 Range/Units 06:17 07:06 BUN/Creatinine Ratio 21.11 H (12.00-20.00) Ratio Glucose 197 H (70-110) mg/dL POC Glucose (mg/dL) 190 H (75-99) mg/dL Microbiology - Last 24 Hours (Table) 12/10/20 20:52 Gram Stain - Final Sputum Sputum Culture - Final Maria L glabrata Maria L albicans Staphylococcus aureus 12/10/20 13:43 Blood Culture - Preliminary Blood No Growth after 96 hours 12/10/20 13:43 Blood Culture - Preliminary Blood No Growth after 96 hours
--- NOTE | 2020-12-15 11:26 | P.PN ---
Subjective Progress Note Date: 12/15/20 Principal diagnosis: Pneumonia 85-year-old male seen in the emergency room yesterday by Dr. Pascual, for weakness. Apparently he been having symptoms of weakness and dizziness, and unsteady gait, for a couple days prior to admission. He also apparently had some lightheadedness. He apparently had fallen a number of times maybe 4 or so. He did have a small laceration on his left cheek area. Apparently also, the patient did have decreased oral intake, and several episodes of emesis. The patient was denying any pain. Also denying any shortness of breath. Currently, he is resting comfortably in bed. He is on 5 L nasal cannula. Is getting saline at 130 mL an hour. He is on norepinephrine at 5 mcg/m and heparin via weightbase protocol. The patient has a history of esophageal cancer, CHF, COPD, diabetes mellitus, GERD, deafness, hyperlipidemia, hypertension, memory impairment, osteoarthritis, and gout among other things. White count 11.8, hemoglobin 11.8, hematocrit 36.6, platelet count 182,000. PTT is 43.3. Sodium and potassium were normal. Chlorides 108, CO2 23, anion gap normal, BUN 34 with a creatinine of 1.68. Troponin was 0.777. There was concern for possible non- ST segment elevation myocardial infarction. Chest x-ray seemed to suggest heart failure, although pneumonia cannot be ruled out. Computed tomography scan of the brain showed nothing acute. On 12/12/2020 patient seen in follow-up in the intensive care unit. He is awake and alert, oriented 3, appears to be in no acute distress, breathing comfortably, he is currently on 3 L of oxygen with a pulse ox of 92%. He has 0.9 normal seen infusing at 10 ML per hour, no other drips. He is in sinus mechanism with a rate of 75 BPM. Blood pressure stable, he is up in the chair, tolerating activity well, looking very comfortable, today's chest x-ray has been reviewed, showing worsening congestive heart failure, patchy diffuse perihilar and interstitial airspace opacities, and moderate bilateral pleural effusions, however superimposed infectious and inflammatory process could not be excluded. Patient was given 1 dose of Lasix this morning. Patient remains on the combination of cefepime and azithromycin. His blood and sputum cultures have been sent, blood culture is negative thus far, sputum culture is pending, preliminary Gram stain shows moderate PMNs, rare gram-positive cocci and rare budding yeast. Patient has had no fever or chills since admission. His lab work has been reviewed, his white blood cell count has significantly improved in the last couple of days, his white count is down to 7.7, hemoglobin is 10.6, sodium is 141, potassium is 4.2, chloride is 110, his renal profile has significantly improved, his BUN is 27 creatinine is 1.24. Patient's pro calc itonin came back elevated at 4.22 suggesting possibility of infection possibly related to pneumonia The patient is seen today 12/13/2020 in follow-up in the intensive care unit. He is currently sitting up in a chair at the bedside. Awake and alert in no acute distress. He is maintaining O2 saturations in the 90s on 5 L/m per nasal cannula. 0.9 normal saline at 10 MLS per hour. Microbiology has been negative. He remains on cefepime. Chest x-ray reveals improving congestive heart failure. Superimposed infection/inflammatory process not excluded. White count 8.1. Hemoglobin 11.7. Lymphocytes 0.7. Sodium 143. Potassium 3.8. Creatinine 0.80. The patient is seen today 12/14/2020 in follow-up in the intensive care unit. He is currently resting comfortably in bed. Awake and alert in no acute distress. He is having some ongoing issues with confusion. A and O times one this morning. He is currently maintaining good O2 saturations in the mid 90s on 4 L/m per nasal cannula. He's been afebrile. Hemodynamically stable. His 0.9 normal saline at 10 mL per hour. Remains on IV diuretics. Remains on cefepime. Blood cultures reveal no growth. Sputum culture pending. White count 7.0. Hemoglobin 12.1. Sodium 142. Potassium 3.9. Creatinine 0.90. The patient is seen today 12/15/2020 in follow-up on the regular medical floor. He is currently sitting up in bed. Awake and alert. He did have another night of confusion. His was called in to sit with him. Currently he is oriented 3. He denies any worsening shortness of breath, cough or congestion. He is ma intaining O2 saturations in the mid 90s on 2 L/m per nasal cannula. Afebrile. Hemodynamically stable. Blood cultures revealed no growth. Sputum culture was positive for methicillin sensitive staphylococcus aureus and Maria L. Sodium 141. Potassium 4.2. Creatinine 0.9. Glucose 197. He remains on DuoNeb inhalations. He was given a dose of vancomycin yesterday. Objective - Vital Signs Vital signs: Vital Signs Temp 97.6 F 12/15/20 08:00 Pulse 77 12/15/20 08:00 Resp 16 12/15/20 08:00 BP 113/68 12/15/20 08:00 Pulse Ox 95 12/15/20 08:00 Intake & Output 12/14/20 12/15/20 12/15/20 18:59 06:59 18:59 Intake Total 440 Output Total 145 100 Balance 295 -100 Intake: IV 30 Sodium Chloride 0.9% 1, 30 000 ml @ 10 mls/hr IV . Q24H [facility] Rx#:[id number] Oral 410 Output: Urine 145 100 Other: Voiding Method Indwelling Catheter Indwelling Catheter Indwelling Catheter # Voids 2 3 - Exam GENERAL EXAM: Alert, very pleasant, 85-year-old male patient, on 2 L breathing comfortably comfortable in no apparent distress. HEAD: Normocephalic/atraumatic. EYES: Normal reaction of pupils, equal size. Conjunctiva pink, sclera white. NOSE: Clear with pink turbinates. THROAT: No erythema or exudates. NECK: No masses, no JVD, no thyroid enlargement, no adenopathy. CHEST: No chest wall deformity. Symmetrical expansion. LUNGS: Equal air entry with few scattered rhonchi, bibasilar crackles and diminished breath sounds CVS: Regular rate and rhythm, normal S1 and S2, no gallops, no murmurs, no rubs ABDOMEN: Soft, nontender. No hepatosplenomegaly, normal bowel sounds, no guarding or rigidity. EXTREMITIES: No clubbing, no edema, no cyanosis, 2+ pulses and upper and lower extremities. MUSCULOSKELETAL: Muscle strength and tone normal. SPINE: No scoliosis or deformity SKIN: No rashes CENTRAL NERVOUS SYSTEM: No focal deficits, tone is normal in all 4 extremities. PSYCHIATRIC: Alert and oriented -3. Appropriate affect. Intact judgment and insight. - Labs CBC & Chem 7: 12/14/20 06:29 12/15/20 06:17 Labs: Abnormal Lab Results - Last 24 Hours (Table) 12/14/20 12/14/20 12/14/20 Range/Units 11:31 16:47 20:59 BUN/Creatinine Ratio (12.00-20.00) Ratio Glucose (70-110) mg/dL POC Glucose (mg/dL) 148 H 210 H 162 H (75-99) mg/dL 12/15/20 12/15/20 Range/Units 06:17 07:06 BUN/Creatinine Ratio 21.11 H (12.00-20.00) Ratio Glucose 197 H (70-110) mg/dL POC Glucose (mg/dL) 190 H (75-99) mg/dL Microbiology - Last 24 Hours (Table) 12/10/20 20:52 Gram Stain - Final Sputum Sputum Culture - Final Maria L glabrata Maria L albicans Staphylococcus aureus 12/10/20 13:43 Blood Culture - Preliminary Blood No Growth after 96 hours 12/10/20 13:43 Blood Culture - Preliminary Blood No Growth after 96 hours Assessment and Plan Assessment: 1 Hypotension, multifactorial, in part related to sepsis and septic shock and/or non-ST elevated myocardial infarction, recovered 2 Acute hypoxic respiratory failure related to pneumonia, community acquired, and acute exacerbation of CHF. Sputum cultures positive for MSSA. Maria L. 3 Severe aortic stenosis with peak/mean gradient across the aortic valve of 85.4 mmHg/48.08 mmHg, transthoracic echocardiogram could not exclude vegetation of aortic valve. 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 Akhtar Labs and cultures reviewed Sputum positive for MSSA, Maria L only. No antibiotics at this time. Titrate down his FiO2 as tolerated Increase his activity as tolerated May need subacute rehab versus home with home care We will continue to follow. I, the cosigning physician, performed a history & physical examination of the patient. Lungs sounds few scattered rhonchi, crackles in the bases, diminished. Maintaining good O2 saturations in the 90s on 2 L/m per nasal cannula. I discussed the assessment and plan of care with my nurse practitioner, Heather Lara. I attest to the above note as dictated by her.
[2020-12-15 11:40] LABS: Glucose,Whole Blood 275 mg/dL (75-99)
[2020-12-15] MEDS: ONDANSETRON 4 MG/2 ML VIAL IVP PRN (12:45)
[2020-12-15 16:33] LABS: Glucose,Whole Blood 125 mg/dL (75-99)
[2020-12-15] MEDS: SODIUM CHLORIDE 0.9% 1,000 ML IV SCH (16:49)
[2020-12-15 20:48] LABS: Glucose,Whole Blood 186 mg/dL (75-99)
[2020-12-15] MEDS: QUEtiapine 25 MG TAB PO PRN (20:58)
[2020-12-15] MEDS: INSULIN DETEMIR (LEVEMIR) 100 UNIT/ML SYR SQ SCH (20:58)
[2020-12-15] MEDS: ATORVASTATIN 80 MG TAB PO SCH (20:58)
[2020-12-15] MEDS ORDERED: VANCOMYCIN 1,500 MG in SODIUM CHLORIDE 0.9% 250 ML IVPB SCH (21:00)
[2020-12-16 07:14] LABS: Glucose,Whole Blood 106 mg/dL (75-99)
[2020-12-16] MEDS: IPRATROPIUM-ALBUTEROL 3 ML NEB INHALATION SCH ×3 (08:01→14:52)
[2020-12-16] MEDS: GABAPENTIN 100 MG CAP PO SCH (08:24)
[2020-12-16] MEDS: PANTOPRAZOLE 40 MG TABLET PO SCH (08:24)
[2020-12-16] MEDS: allopurinoL 300 MG TAB PO SCH (08:24)
[2020-12-16] MEDS: buPROPion XL 300 MG TAB.ER.24H PO SCH (08:24)
[2020-12-16] MEDS: FOLIC ACID 1 MG TAB PO SCH (08:24)
[2020-12-16] MEDS: ASPIRIN 81 MG PO SCH (08:24)
[2020-12-16] MEDS: HEPARIN SODIUM,PORCINE/PF 5,000 UNIT/0.5 ML SYRINGE SQ SCH (08:24)
[2020-12-16] MEDS: MAGNESIUM OXIDE 400 MG TAB PO SCH (08:25)
[2020-12-16] MEDS: MIDODRINE 5 MG TAB PO SCH ×2 (08:25→13:47)
[2020-12-16] MEDS: FUROSEMIDE 40 MG TAB PO SCH (08:25)
[2020-12-16] MEDS ORDERED: AZITHROMYCIN 500 MG TAB PO SCH (09:00)
[2020-12-16] MEDS: INSULIN ASPART (NovoLOG) 100 UNIT/ML VIAL SQ SCH ×2 (09:33→13:47)
[2020-12-16] MEDS ORDERED: CEPHALEXIN 500 MG CAP PO SCH (10:30)
--- NOTE | 2020-12-16 10:57 | P.PN ---
Subjective Progress Note Date: 12/16/20 Principal diagnosis: Pneumonia 85-year-old male seen in the emergency room yesterday by Dr. Pascual, for weakness. Apparently he been having symptoms of weakness and dizziness, and unsteady gait, for a couple days prior to admission. He also apparently had some lightheadedness. He apparently had fallen a number of times maybe 4 or so. He did have a small laceration on his left cheek area. Apparently also, the patient did have decreased oral intake, and several episodes of emesis. The patient was denying any pain. Also denying any shortness of breath. Currently, he is resting comfortably in bed. He is on 5 L nasal cannula. Is getting saline at 130 mL an hour. He is on norepinephrine at 5 mcg/m and heparin via weightbase protocol. The patient has a history of esophageal cancer, CHF, COPD, diabetes mellitus, GERD, deafness, hyperlipidemia, hypertension, memory impairment, osteoarthritis, and gout among other things. White count 11.8, hemoglobin 11.8, hematocrit 36.6, platelet count 182,000. PTT is 43.3. Sodium and potassium were normal. Chlorides 108, CO2 23, anion gap normal, BUN 34 with a creatinine of 1.68. Troponin was 0.777. There was concern for possible non- ST segment elevation myocardial infarction. Chest x-ray seemed to suggest heart failure, although pneumonia cannot be ruled out. Computed tomography scan of the brain showed nothing acute. On 12/12/2020 patient seen in follow-up in the intensive care unit. He is awake and alert, oriented 3, appears to be in no acute distress, breathing comfortably, he is currently on 3 L of oxygen with a pulse ox of 92%. He has 0.9 normal seen infusing at 10 ML per hour, no other drips. He is in sinus mechanism with a rate of 75 BPM. Blood pressure stable, he is up in the chair, tolerating activity well, looking very comfortable, today's chest x-ray has been reviewed, showing worsening congestive heart failure, patchy diffuse perihilar and interstitial airspace opacities, and moderate bilateral pleural effusions, however superimposed infectious and inflammatory process could not be excluded. Patient was given 1 dose of Lasix this morning. Patient remains on the combination of cefepime and azithromycin. His blood and sputum cultures have been sent, blood culture is negative thus far, sputum culture is pending, preliminary Gram stain shows moderate PMNs, rare gram-positive cocci and rare budding yeast. Patient has had no fever or chills since admission. His lab work has been reviewed, his white blood cell count has significantly improved in the last couple of days, his white count is down to 7.7, hemoglobin is 10.6, sodium is 141, potassium is 4.2, chloride is 110, his renal profile has significantly improved, his BUN is 27 creatinine is 1.24. Patient's pro calc itonin came back elevated at 4.22 suggesting possibility of infection possibly related to pneumonia The patient is seen today 12/13/2020 in follow-up in the intensive care unit. He is currently sitting up in a chair at the bedside. Awake and alert in no acute distress. He is maintaining O2 saturations in the 90s on 5 L/m per nasal cannula. 0.9 normal saline at 10 MLS per hour. Microbiology has been negative. He remains on cefepime. Chest x-ray reveals improving congestive heart failure. Superimposed infection/inflammatory process not excluded. White count 8.1. Hemoglobin 11.7. Lymphocytes 0.7. Sodium 143. Potassium 3.8. Creatinine 0.80. The patient is seen today 12/14/2020 in follow-up in the intensive care unit. He is currently resting comfortably in bed. Awake and alert in no acute distress. He is having some ongoing issues with confusion. A and O times one this morning. He is currently maintaining good O2 saturations in the mid 90s on 4 L/m per nasal cannula. He's been afebrile. Hemodynamically stable. His 0.9 normal saline at 10 mL per hour. Remains on IV diuretics. Remains on cefepime. Blood cultures reveal no growth. Sputum culture pending. White count 7.0. Hemoglobin 12.1. Sodium 142. Potassium 3.9. Creatinine 0.90. The patient is seen today 12/15/2020 in follow-up on the regular medical floor. He is currently sitting up in bed. Awake and alert. He did have another night of confusion. His was called in to sit with him. Currently he is oriented 3. He denies any worsening shortness of breath, cough or congestion. He is ma intaining O2 saturations in the mid 90s on 2 L/m per nasal cannula. Afebrile. Hemodynamically stable. Blood cultures revealed no growth. Sputum culture was positive for methicillin sensitive staphylococcus aureus and Maria L. Sodium 141. Potassium 4.2. Creatinine 0.9. Glucose 197. He remains on DuoNeb inhalations. He was given a dose of vancomycin yesterday. The patient is seen today 12/16/2020 in follow-up on the regular medical floor. He is currently resting comfortably in bed. Maintaining O2 saturations in the 90s on 2 L/m per nasal cannula. Creatinine 0.99. Blood glucose 106. Sputum positive for MSSA. Initiated on azithromycin yesterday. Remains on bronchodilators. Objective - Vital Signs Vital signs: Vital Signs Temp 97.7 F 12/16/20 07:52 Pulse 70 12/16/20 08:13 Resp 18 12/16/20 08:13 BP 121/68 12/16/20 07:52 Pulse Ox 95 12/16/20 08:01 Intake & Output 12/15/20 12/16/20 12/16/20 18:59 06:59 18:59 Intake Total 360 Balance 360 Intake: Oral 360 Other: Voiding Method Indwelling Catheter Urinal Diaper Diaper Incontinent # Voids 2 2 - Exam GENERAL EXAM: Alert, very pleasant, 85-year-old male patient, on 2 L per minute per nasal cannula, comfortable in no apparent distress. HEAD: Normocephalic/atraumatic. EYES: Normal reaction of pupils, equal size. Conjunctiva pink, sclera white. NOSE: Clear with pink turbinates. THROAT: No erythema or exudates. NECK: No masses, no JVD, no thyroid enlargement, no adenopathy. CHEST: No chest wall deformity. Symmetrical expansion. LUNGS: Equal air entry with bibasilar crackles and diminished breath sounds CVS: Regular rate and rhythm, normal S1 and S2, no gallops, no murmurs, no rubs ABDOMEN: Soft, nontender. No hepatosplenomegaly, normal bowel sounds, no guarding or rigidity. EXTREMITIES: No clubbing, no edema, no cyanosis, 2+ pulses and upper and lower extremities. MUSCULOSKELETAL: Muscle strength and tone normal. SPINE: No scoliosis or deformity SKIN: No rashes CENTRAL NERVOUS SYSTEM: No focal deficits, tone is normal in all 4 extremities. PSYCHIATRIC: Alert and oriented -3. Appropriate affect. Intact judgment and insight. - Labs CBC & Chem 7: 12/14/20 06:29 12/16/20 07:00 Labs: Abnormal Lab Results - Last 24 Hours (Table) 12/15/20 12/15/20 12/15/20 Range/Units 11:39 16:31 20:47 POC Glucose (mg/dL) 275 H 125 H 186 H (75-99) mg/dL 12/16/20 Range/Units 07:12 POC Glucose (mg/dL) 106 H (75-99) mg/dL Microbiology - Last 24 Hours (Table) 12/10/20 13:43 Blood Culture - Preliminary Blood No Growth after 120 hours 12/10/20 13:43 Blood Culture - Preliminary Blood No Growth after 120 hours 12/10/20 20:52 Gram Stain - Final Sputum Sputum Culture - Final Maria L glabrata Maria L albicans Staphylococcus aureus Assessment and Plan Assessment: 1 Hypotension, multifactorial, in part related to sepsis and septic shock and/or non-ST elevated myocardial infarction, recovered 2 Acute hypoxic respiratory failure related to pneumonia, community acquired, and acute exacerbation of CHF. Sputum cultures positive for MSSA. Maria L. 3 Severe aortic stenosis with peak/mean gradient across the aortic valve of 85.4 mmHg/48.08 mmHg, transthoracic echocardiogram could not exclude vegetation of aortic valve. 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 Akhtar Titrate down his FiO2 as tolerated Increase his activity as tolerated May need subacute rehab versus home with home care We will continue to follow. I, the cosigning physician, performed a history & physical examination of the patient. Lungs sounds with crackles in the bases, diminished. Maintaining good O2 saturations in the 90s on 2 L/m per nasal cannula. I discussed the assessment and plan of care with my nurse practitioner, Heather Lara. I attest to the above note as dictated by her.
[2020-12-16 11:29] LABS: Glucose,Whole Blood 104 mg/dL (75-99)
--- NOTE | 2020-12-16 12:06 | P.DS ---
Providers Date of admission: 12/10/20 13:33 Attending physician: Bear Sampson Consults: 12/10/20 13:30 Consult Physician Stat Consulting Provider: Cameron Akhtar Reason/Comments: pneumonia, critical care Do you want consulting provider notified?: Already Contacted [facility] Course: Patient is admitted for weakness dizziness shortness of breath and hypoxemia patient is found to be in shock. Clinically patient appears to be in cardiac shock. Chest x-ray is consistent with CHF. Patient doesn't have any significant cough. Although patient pro calcitonin is elevated to above 4. Patient is presently on cefepime and being treated for septic shock as that cannot be ruled out at this time. Patient BNP is only in 500s. Patient's creatinine is presently 1.68 came down from 2 patient baseline creatinine appears to be around 1.1. Patient is presently on norepinephrine which is being weaned off. troponin as minimally elevated to 0.77. 12/12/2020 Patient had an episode of respiratory distress requiring BiPAP today. This improved after IV Lasix. Sputum cultures are so far negative clinically patient appears to be in heart failure exacerbation. 12/13/2020 Patient is awake alert and presently 3 L of oxygen, gets confused at nighttime will use Seroquel as-needed basis at 12.5 for agitation if there is any. [place] was discontinued will cut down the dose of gabapentin. Patient delirium is secondary to hospitalization and ICU delirium. Patient remains on cefepime although patient appears to have congestive heart failure rather pneumonia. Patient received IV Lasix with significant urine output and significant improvement in his respiratory status will be one more 20 mg of IV Lasix and will start him on 40 mg of IV Lasix and daily basis. Chest x-ray showed improvement in infiltrate. All the cultures are so far negative. Creatinine improved. 12/14/2020 Patient can use to have confusion his overall clinical condition continued to improve patient is on 3 L of oxygen saturating well. Patient was switched to oral Lasix will order basic metabolic profile again tomorrow 12/15/2020 Patient confusion is much better today patient is able to sleep last night because of the Seroquel patient is expected to have confusion again related today. Patient is saturating well on 3 L will can you to wean this off patient has significant swelling in bilateral lower extremities will order IV Lasix today 1 dose. Continue with oral Lasix. Patient was started on vancomycin by pulmonary because of her sputum culture showing MRSA and patient does have Maria L in the sputum. 12/16/2020 Patient is clinically doing well and the patient is euvolemic at this time patient will be discharged today to home with home care. Physical therapy and outpatient therapy evaluated the patient. According home with home care. Patient has MSSA in the sputum patient will be discharged on 5 more days of Keflex comparing total of 10 day of therapy. PHYSICAL EXAMINATION: GENERAL: The patient is alert and oriented x3, not in any acute distress. Well developed, well nourished. HEENT: Pupils are round and equally reacting to light. EOMI. No scleral icterus. No conjunctival pallor. Normocephalic, atraumatic. No pharyngeal erythema. No thyromegaly. CARDIOVASCULAR: S1 and S2 present. No murmurs, rubs, or gallops. PULMONARY: His bilateral crackles ABDOMEN: Soft, nontender, nondistended, normoactive bowel sounds. No palpable organomegaly. MUSCULOSKELETAL: No joint swelling or deformity. EXTREMITIES: No cyanosis, clubbing, does have pedal edema NEUROLOGICAL: Gross neurological examination did not reveal any focal deficits. SKIN: No rashes. Assessment and plan Shock: Patient most probably had cardiogenic shock, Lasix as mentioned above patient has chronic diastolic dysfunction he of around 70%. Low possibility of septic shock. . Patient's sputum is showing MSSA . Patient was discharged on Keflex for 5 more days -Acute hypoxic respiratory failure secondary to CHF -Severe pulmonary hypertension -Congestive heart failure chronic diastolic dysfunction with acute exacerbation -Possibly of MSSA pneumonia -Type 2 diabetes mellitus -Gastroesophageal reflux disease -Hyperlipidemia - hypertension blood pressures better now patient shock resolved -History of esophageal cancer status post radiation therapy and chemotherapy presently in remission patient last received any therapy for that was in 2018 -Chronic kidney disease stage II possibly diabetic nephropathy -Acute renal failure renal azotemia and/or acute tubular necrosis secondary to sepsis -Minimal elevation of troponin secondary to shock and hypoxemia Patient Condition at Discharge: Serious Plan - Discharge Summary Discharge Rx Participant: No New Discharge Prescriptions: New Cephalexin [Keflex] 500 mg PO TID #15 cap Furosemide [Lasix] 40 mg PO DAILY #30 tab Gabapentin [Neurontin] 200 mg PO BID-W/MEALS #60 cap Continue Cetirizine HCl 10 mg PO DAILY Pravastatin Sodium [Pravachol] 80 mg PO HS Ipratropium-Albuterol Nebulize [Duoneb 0.5 mg-3 mg/3 ml Soln] 3 ml INHALATION RT-Q6H Insulin Glargine [Lantus] 20 unit SQ HS Aspirin 81 mg PO DAILY chew allopurinoL [Zyloprim] 300 mg PO DAILY Magnesium Oxide 400 mg PO BID Omeprazole [PriLOSEC] 40 mg PO BID Potassium Chloride 10 meq PO BID Insulin Lispro [humaLOG Kwikpen] See Protocol SQ TID-W/MEALS PRN PRN Reason: HYPERGLYCEMIA Insulin Lispro [humaLOG Kwikpen] 10 unit SQ AC-TID Yupelri 175mcg/3ml Solution 175 mcg INHALATION RT-DAILY Folic Acid 1 mg PO DAILY Acetaminophen [Tylenol 8 Hour] 650 mg PO Q4H PRN PRN Reason: Pain Or Fever > 100.5 buPROPion HCL [Wellbutrin XL] 300 mg PO DAILY ondansetron HCL [Zofran] 8 mg PO Q6H PRN PRN Reason: Nausea Meclizine HCl 12.5 - 25 mg PO DAILY PRN PRN Reason: dizziness Midodrine HCl [ProAmantine] 2.5 mg PO BID Discontinued Meloxicam [Mobic] 7.5 mg PO DAILY Gabapentin [Neurontin] 400 mg PO BID-W/MEALS Torsemide [Demadex] 100 mg PO DAILY Gabapentin [Neurontin] 800 mg PO HS Zolpidem [Ambien] 10 mg PO HS Discharge Medication List Cetirizine HCl 10 mg PO DAILY 07/05/15 [History] Pravastatin Sodium [Pravachol] 80 mg PO HS 09/01/17 [History] Ipratropium-Albuterol Nebulize [Duoneb 0.5 mg-3 mg/3 ml Soln] 3 ml INHALATION RT-Q6H 07/29/19 [History] Insulin Glargine [Lantus] 20 unit SQ HS 08/17/19 [History] Aspirin 81 mg PO DAILY chew 08/23/19 [Rx] Magnesium Oxide 400 mg PO BID 11/24/19 [History] Omeprazole [PriLOSEC] 40 mg PO BID 11/24/19 [History] Potassium Chloride 10 meq PO BID 11/24/19 [History] allopurinoL [Zyloprim] 300 mg PO DAILY 11/24/19 [History] Insulin Lispro [humaLOG Kwikpen] See Protocol SQ TID-W/MEALS PRN 06/28/20 [History] Insulin Lispro [humaLOG Kwikpen] 10 unit SQ AC-TID 11/19/20 [History] Yupelri 175mcg/3ml Solution 175 mcg INHALATION RT-DAILY 11/19/20 [History] buPROPion HCL [Wellbutrin XL] 300 mg PO DAILY 11/19/20 [History] Acetaminophen [Tylenol 8 Hour] 650 mg PO Q4H PRN 12/10/20 [History] Folic Acid 1 mg PO DAILY 12/10/20 [History] Meclizine HCl 12.5 - 25 mg PO DAILY PRN 12/10/20 [History] Midodrine HCl [ProAmantine] 2.5 mg PO BID 12/10/20 [History] ondansetron HCL [Zofran] 8 mg PO Q6H PRN 12/10/20 [History] Cephalexin [Keflex] 500 mg PO TID #15 cap 12/16/20 [Rx] Furosemide [Lasix] 40 mg PO DAILY #30 tab 12/16/20 [Rx] Gabapentin [Neurontin] 200 mg PO BID-W/MEALS #60 cap 12/16/20 [Rx] Follow up Appointment(s)/Referral(s): Cameron Akhtar DO [Doctor of Osteopathic Medicine] - 1 Week [facility], [NON-STAFF] - 3 Days Randi Albrecht MD [STAFF PHYSICIAN] - 1 Week Sumit Dozier DO [Primary Care Provider] - 3 Days Discharge Disposition: HOME WITH HOME HEALTH SERVICES
[2020-12-16 13:29] VITALS: BP 114/73; PULSE 78; RESP 18; TEMP 97.5
== END 2020-12-16 14:48 | disposition home health service (06) | DRG 291 ==
LOC: EC 10:07 → 2SICU 13:33 → 4SSUR 12-14 11:20
PROVIDERS: ADMIT Hospitalist; ATTEND Hospitalist
PROC: 02HV33Z Insertion of Infusion Device into Superior Vena Cava, Percutaneous Approach (ICD-10-PCS; principal; 2020-12-10)
DX: I13.0 Hypertensive heart and chronic kidney disease with heart failure and stage 1 through stage 4 chronic kidney disease, or unspecified chronic kidney disease (principal); A41.9 Sepsis, unspecified organism; R65.21 Severe sepsis with septic shock; J18.9 Pneumonia, unspecified organism; I50.33 Acute on chronic diastolic (congestive) heart failure; N17.0 Acute kidney failure with tubular necrosis; J96.01 Acute respiratory failure with hypoxia; R57.0 Cardiogenic shock; J15.211 Pneumonia due to Methicillin susceptible Staphylococcus aureus; J44.0 Chronic obstructive pulmonary disease with (acute) lower respiratory infection; Z79.4 Long term (current) use of insulin; Z79.1 Long term (current) use of non-steroidal anti-inflammatories (NSAID); Z79.82 Long term (current) use of aspirin; Z88.0 Allergy status to penicillin; M19.90 Unspecified osteoarthritis, unspecified site; Z92.21 Personal history of antineoplastic chemotherapy; Z92.3 Personal history of irradiation; Z87.442 Personal history of urinary calculi; Z85.01 Personal history of malignant neoplasm of esophagus; Z80.8 Family history of malignant neoplasm of other organs or systems; Z82.49 Family history of ischemic heart disease and other diseases of the circulatory system; K21.9 Gastro-esophageal reflux disease without esophagitis; E11.42 Type 2 diabetes mellitus with diabetic polyneuropathy; R29.6 Repeated falls; Z20.822 Contact with and (suspected) exposure to COVID-19; I95.1 Orthostatic hypotension; H91.90 Unspecified hearing loss, unspecified ear; Z87.11 Personal history of peptic ulcer disease; I65.29 Occlusion and stenosis of unspecified carotid artery; K22.70 Barrett's esophagus without dysplasia; N18.2 Chronic kidney disease, stage 2 (mild); E11.22 Type 2 diabetes mellitus with diabetic chronic kidney disease; I35.0 Nonrheumatic aortic (valve) stenosis; E11.51 Type 2 diabetes mellitus with diabetic peripheral angiopathy without gangrene; S01.412A Laceration without foreign body of left cheek and temporomandibular area, initial encounter; I07.1 Rheumatic tricuspid insufficiency; I27.20 Pulmonary hypertension, unspecified; Z87.01 Personal history of pneumonia (recurrent); B95.62 Methicillin resistant Staphylococcus aureus infection as the cause of diseases classified elsewhere; Z87.891 Personal history of nicotine dependence; E78.5 Hyperlipidemia, unspecified; Z79.899 Other long term (current) drug therapy
CPT/HCPCS: 36415; 70450; 71045; 71046; 80048; 80053; 80061; 81003; 82550; 82565; 83605; 83735; 83880; 84100; 84145; 84439; 84443; 84481; 84484; 85025; 85027; 85610; 85730; 87040; 87070; 87077; 87186; 87205; 87635; 93005; 93306; 94640; 94760; 96361; 96374; 99291

== ENCOUNTER 2021-02-08 09:31 | Inpatient (IN) | payer MEDICARE ==
[2021-02-08] MEDS ORDERED: IPRATROPIUM-ALBUTEROL 3 ML NEB INHALATION STA (10:08)
[2021-02-08] MEDS ORDERED: SODIUM CHLORIDE 0.9% 500 ML 500 ML IV STA (10:08)
[2021-02-08] MEDS ORDERED: SODIUM CHLORIDE 0.9% 1,000 ML IV STA (10:08)
[2021-02-08] MEDS ORDERED: ONDANSETRON 4 MG/2 ML VIAL IVP STA (10:09)
[2021-02-08 10:36] LABS: Albumin 3.9 g/dL (3.5-5.0); Calcium 9.2 mg/dL (8.4-10.2); Magnesium 2.3 mg/dL (1.6-2.3); Potassium 4.8 mmol/L (3.5-5.1); Total Bilirubin 0.6 mg/dL (0.2-1.3); Total Protein 7.5 g/dL (6.3-8.2)
[2021-02-08 10:38] LABS: Basophils % (A) 0 %; Eosinophils # (A) 0.1 k/uL (0-0.7); Eosinophils % (A) 1 %; HCT 43.6 % (39.0-53.0); HGB 13.9 gm/dL (13.0-17.5); Hypochromasia Slight; Lymphocytes % (A) 10 %; MCH 28.6 pg (25.0-35.0); MCHC 31.9 g/dL (31.0-37.0); Mean Platelet Volume 7.9; Monocytes # (A) 0.4 k/uL (0-1.0); Monocytes % (A) 4 %; Neutrophils # (A) 8.5 k/uL (1.3-7.7); Neutrophils % (A) 84 %; Platelet Count 223 k/uL (150-450); RBC 4.86 m/uL (4.30-5.90); RDW 15.3 % (11.5-15.5); WBC 10.2 k/uL (3.8-10.6)
[2021-02-08 10:39] LABS: Partial Thromboplastin Time 27.3 sec (22.0-30.0); Prothrombin Time 10.6 sec (9.0-12.0)
[2021-02-08 10:40] LABS: MCV 89.7 fL (80.0-100.0)
--- NOTE | 2021-02-08 11:25 | XR ---
EXAMINATION TYPE: XR chest 2V DATE OF EXAM: 02/08/2021 COMPARISON: Chest x-ray 12/13/[address] 10/24/2020 HISTORY: Difficulty breathing, cough and shortness of breath for 3 days TECHNIQUE: Frontal and lateral views of the chest are obtained on 3 images. FINDINGS: There is patchy bibasilar density which is somewhat more coalescent than on prior exam, in terstitium remains increased. Heart remains enlarged. There is no evident pneumothorax. Increased AP diameter chest with flattening the hemidiaphragms may be indicative of underlying COPD. There is unde rlying atheromatous change within the aorta IMPRESSION: Correlate for congestive heart failure, pneumonia not excluded. There is emphysema, and coronary artery disease, pre-existing interstitial lung disease noted on prior CT.
[2021-02-08] MEDS ORDERED: CASIRIVIMAB (REGN10933) (EUA) 600 MG, IMDEVIMAB (REGN10987) (EUA) 600 MG in SODIUM CHLO... IVPB ONE (11:30)
[2021-02-08] MEDS ORDERED: SODIUM CHLORIDE 0.9% 50 ML IVPB ONE (11:30)
[2021-02-08] MEDS ORDERED: ASPIRIN 81 MG PO STA (12:28)
[2021-02-08] MEDS ORDERED: NITROGLYCERIN OINT 1 INCH/GM PACKET TOPICAL STA (12:28)
[2021-02-08] MEDS ORDERED: FUROSEMIDE 10 MG/ML 4 ML VIAL IV STA (12:29)
[2021-02-08] MEDS ORDERED: AZITHROMYCIN 500 MG in SODIUM CHLORIDE 0.9% 250 ML IVPB STA (12:30)
--- NOTE | 2021-02-08 12:39 | ED ---
General Adult HPI - General Chief complaint: Altered Mental Status Stated complaint: Vomiting, fever Time Seen by Provider: 02/08/21 09:57 Source: patient, family Mode of arrival: wheelchair Limitations: no limitations - History of Present Illness Initial comments: This 85-year-old male presents with difficulty in breathing. He apparently has had shortness of breath over the last 3 days. He does relate a cough with out any production. He denies any chest pain. relates that his symptoms are more severe this past evening and he is confused at night but better now. He has significant exertional dyspnea as well. He has a history of COPD as well as congestive heart failure. He was hospitalized for similar symptoms last month around 12/16/2020. He had elevated troponin at that time. He does have a history of esophageal cancer as well and has had radiation throughout his chest with associated radiation pneumonitis. He also sees Dr. Brown in this regard. He sees Dr. Lima from cardiology. He is told that he has severe aortic disease and may need surgery later this year in this regard. He denies any leg pain or swelling or history DVT or PE. He denies any known history of coronary artery disease, myocardial infarction, cardiac stenting. He cannot remember the last time he had a stress test. relates that he had a temperature of 100.0 this morning. No other complaints or modifying factors. - Related Data Home Medications Medication Instructions Recorded Confirmed Cetirizine HCl 10 mg PO DAILY 07/05/15 02/08/21 Pravastatin Sodium [Pravachol] 80 mg PO HS 09/01/17 02/08/21 Ipratropium-Albuterol Nebulize 3 ml INHALATION RT-QID PRN 07/29/19 02/08/21 [Duoneb 0.5 mg-3 mg/3 ml Soln] Magnesium Oxide 400 mg PO BID 11/24/19 02/08/21 Omeprazole [PriLOSEC] 40 mg PO BID 11/24/19 02/08/21 Potassium Chloride [Potassium 10 meq PO BID 11/24/19 02/08/21 Chloride ER] allopurinoL [Zyloprim] 300 mg PO DAILY 11/24/19 02/08/21 Insulin Lispro [humaLOG Kwikpen] See Protocol SQ AC-TID 06/28/20 02/08/21 Insulin Lispro [humaLOG Kwikpen] 10 unit SQ AC-TID 11/19/20 02/08/21 Yupelri 175mcg/3ml Solution 175 mcg INHALATION RT-DAILY 11/19/20 02/08/21 buPROPion HCL [Wellbutrin XL] 300 mg PO DAILY 11/19/20 02/08/21 Acetaminophen [Tylenol 8 Hour] 650 mg PO Q4H PRN 12/10/20 02/08/21 Gabapentin [Neurontin] 400 mg PO BID@0800,1400 02/08/21 02/08/21 Gabapentin [Neurontin] 800 mg PO HS 02/08/21 02/08/21 Insulin Glargine,Hum.rec.anlog 20 unit SQ HS 02/08/21 02/08/21 [Lantus Solostar Pen] Midodrine [ProAmatine] 10 mg PO BID 02/08/21 02/08/21 Zolpidem [Ambien] 10 mg PO HS 02/08/21 02/08/21 Previous Rx's Medication Instructions Recorded Aspirin 81 mg PO DAILY chew 08/23/19 Furosemide [Lasix] 40 mg PO DAILY #30 tab 12/16/20 Allergies Allergy/AdvReac Type Severity Reaction Status Date / Time latex Allergy Rash/Hives Verified 02/08/21 11:32 penicillin G Allergy Rash/Hives Verified 02/08/21 11:32 Review of Systems ROS Statement: Those systems with pertinent positive or pertinent negative responses have been documented in the HPI. ROS Other: All systems not noted in ROS Statement are negative. Past Medical History Past Medical History: Cancer, Heart Failure, COPD, Diabetes Mellitus, GERD/Reflux, Hearing Disorder / Deafness, Hyperlipidemia, Hypertension, Memory Impairment, Osteoarthritis (OA), Pneumonia, Renal Disease Additional Past Medical History / Comment(s): Fractures L2-L4 w/ paul[place] leg pain, DDD, Gout, CARDOSO'S esophagus, Esophageal CA-completed 28 radiation tx on 09/08/17, & 5 chemo tx 09/02/17. 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 ,see Dr Albrecht H&P, chronic kidney disease History of Any Multi-Drug Resistant Organisms: None Reported Past Surgical History: Back Surgery, Heart Catheterization, Hernia Repair, Orthopedic Surgery Additional Past Surgical History / Comment(s): Bilateral rotator cuff surgery, left foot surgery, thinks he has plate and screws, "esophagus radiofrequency ablation", paulina cataracts-lens implants, kyphoplasty. Pain procedures. Epidural steroid injection in back. Past Anesthesia/Blood Transfusion Reactions: No Reported Reaction Additional Past Anesthesia/Blood Transfusion Reaction / Comment(s): . Past Psychological History: No Psychological Hx Reported Smoking Status: Never smoker Past Alcohol Use History: Rare Past Drug Use History: None Reported - Past Family History Mother Family Medical History: Cancer Additional Family Medical History / Comment(s): Kidney, Thyroid cancer. Father Family Medical History: Coronary Artery Disease (CAD) Additional Family Medical History / Comment(s): AT AGE 53. General Exam - General Exam Comments Initial Comments: GENERAL: The patient is well nourished and well hydrated. VITAL SIGNS: Heart rate, blood pressure, respiratory rate reviewed as recorded in nurse's notes. EYES: Pupils are round and reactive. Extraocular movements are intact. No conjunctival / lid redness or swelling. ENT: No external evidence of injury, swelling, or ecchymosis. Airway is patent. Throat is clear. NECK: Nontender. No swelling or evidence of injury. No subcutaneous emphysema. Trachea is midline. No thyroid mass. HEART: Regular rate and rhythm. Good peripheral pulses. LUNGS/CHEST: Breath sounds clear and equal bilaterally. No rales, rhonchi, or wheezes. No ecchymosis, subcutaneous emphysema, or tenderness. ABDOMEN: Abdomen soft without tenderness. No palpable masses or organomegaly. No peritoneal signs. No abdominal wall swelling or ecchymosis. EXTREMITIES: No extremity tenderness. Normal muscle tone and function. No thoracolumbar tenderness. NEUROLOGIC: Sensation is grossly intact. Cranial nerve exam reveals face is symmetrical, tongue is midline, speech is clear. SKIN: No abrasions or ecchymosis is noted. No induration or masses noted. PSYCHIATRIC: Alert and oriented. Appropriate behavior and judgment. Limitations: no limitations Course Vital Signs 02/08/21 02/08/21 02/08/21 09:39 10:41 11:00 Temperature 98.9 F Pulse Rate 79 70 Respiratory 24 18 18 Rate Blood Pressure 114/70 122/81 O2 Sat by Pulse 93 L 93 L 93 L Oximetry 02/08/21 02/08/21 02/08/21 11:18 11:29 12:00 Temperature Pulse Rate 68 68 67 Respiratory 18 Rate Blood Pressure 117/57 O2 Sat by Pulse 95 Oximetry Medical Decision Making - Medical Decision Making The patient was seen and examined. All diagnostics are reviewed. A EKG is completed and shows a normal sinus rhythm at a rate of 86. There is no acute ST-T wave changes noted. The AK interval is 204, QRS duration is 92, and the QTC intervals 469. He is placed on panel monitor no ectopy is identified. He receives a DuoNeb breathing treatment and does not note any significant degree of relief. The chest x-ray shows evidence of possible congestive heart failure but radiologist notes that pneumonia cannot be excluded. The laboratory is reviewed and does show elevation of the lactic acid as well as the troponin. The BNP is also moderately elevated. Overall, is felt as though he may have a degree of congestive heart failure. Degree of COPD certainly is possible as well and is given some Solu-Medrol intravenously. Overall, pneumonia cannot be ruled out as well and is given Zithromax and Rocephin intravenously. He is agreeable with admission. Case will be discussed with the [facility] hospitalist group in the near future and patient will be admitted to the telemetry unit for further evaluation. Heparin will be started shortly. - Lab Data Result diagrams: 02/08/21 10:06 02/08/21 10:06 Lab Results 02/08/21 02/08/21 02/08/21 Range/Units 10:06 10:06 10:06 WBC 10.2 (3.8-10.6) k/uL RBC 4.86 (4.30-5.90) m/uL Hgb 13.9 (13.0-17.5) gm/dL Hct 43.6 (39.0-53.0) % MCV 89.7 D (80.0-100.0) fL MCH 28.6 (25.0-35.0) pg MCHC 31.9 (31.0-37.0) g/dL RDW 15.3 (11.5-15.5) % Plt Count 223 (150-450) k/uL MPV 7.9 Neutrophils % 84 % Lymphocytes % 10 % Monocytes % 4 % Eosinophils % 1 % Basophils % 0 % Neutrophils # 8.5 H (1.3-7.7) k/uL Lymphocytes # 1.0 (1.0-4.8) k/uL Monocytes # 0.4 (0-1.0) k/uL Eosinophils # 0.1 (0-0.7) k/uL Basophils # 0.0 (0-0.2) k/uL Hypochromasia Slight PT 10.6 (9.0-12.0) sec INR 1.0 (<1.2) APTT 27.3 (22.0-30.0) sec Sodium 140 (137-145) mmol/L Potassium 4.8 (3.5-5.1) mmol/L Chloride 105 (98-107) mmol/L Carbon Dioxide 21 L (22-30) mmol/L Anion Gap 14 mmol/L BUN 24 H (9-20) mg/dL Creatinine 1.10 (0.66-1.25) mg/dL Est GFR (CKD-EPI)AfAm 72 (>60 ml/min/1.73 sqM) Est GFR (CKD-EPI)NonAf 62 (>60 ml/min/1.73 sqM) Glucose 197 H (74-99) mg/dL Plasma Lactic Acid Nestor (0.7-2.0) mmol/L Calcium 9.2 (8.4-10.2) mg/dL Magnesium 2.3 (1.6-2.3) mg/dL Total Bilirubin 0.6 (0.2-1.3) mg/dL AST 30 (17-59) U/L ALT 18 (4-49) U/L Alkaline Phosphatase 98 (38-126) U/L Troponin I (0.000-0.034) ng/mL NT-Pro-B Natriuret Pep pg/mL Total Protein 7.5 (6.3-8.2) g/dL Albumin 3.9 (3.5-5.0) g/dL Coronavirus (PCR) (Not Detectd) Influenza Type A RNA (Not Detectd) Influenza Type B (PCR) (Not Detectd) 02/08/21 02/08/21 02/08/21 Range/Units 10:06 10:06 10:06 WBC (3.8-10.6) k/uL RBC (4.30-5.90) m/uL Hgb (13.0-17.5) gm/dL Hct (39.0-53.0) % MCV (80.0-100.0) fL MCH (25.0-35.0) pg MCHC (31.0-37.0) g/dL RDW (11.5-15.5) % Plt Count (150-450) k/uL MPV Neutrophils % % Lymphocytes % % Monocytes % % Eosinophils % % Basophils % % Neutrophils # (1.3-7.7) k/uL Lymphocytes # (1.0-4.8) k/uL Monocytes # (0-1.0) k/uL Eosinophils # (0-0.7) k/uL Basophils # (0-0.2) k/uL Hypochromasia PT (9.0-12.0) sec INR (<1.2) APTT (22.0-30.0) sec Sodium (137-145) mmol/L Potassium (3.5-5.1) mmol/L Chloride (98-107) mmol/L Carbon Dioxide (22-30) mmol/L Anion Gap mmol/L BUN (9-20) mg/dL Creatinine (0.66-1.25) mg/dL Est GFR (CKD-EPI)AfAm (>60 ml/min/1.73 sqM) Est GFR (CKD-EPI)NonAf (>60 ml/min/1.73 sqM) Glucose (74-99) mg/dL Plasma Lactic Acid Nestor 2.9 H* (0.7-2.0) mmol/L Calcium (8.4-10.2) mg/dL Magnesium (1.6-2.3) mg/dL Total Bilirubin (0.2-1.3) mg/dL AST (17-59) U/L ALT (4-49) U/L Alkaline Phosphatase (38-126) U/L Troponin I 0.244 H* (0.000-0.034) ng/mL NT-Pro-B Natriuret Pep 710 pg/mL Total Protein (6.3-8.2) g/dL Albumin (3.5-5.0) g/dL Coronavirus (PCR) (Not Detectd) Influenza Type A RNA (Not Detectd) Influenza Type B (PCR) (Not Detectd) 02/08/21 02/08/21 Range/Units 10:32 10:32 WBC (3.8-10.6) k/uL RBC (4.30-5.90) m/uL Hgb (13.0-17.5) gm/dL Hct (39.0-53.0) % MCV (80.0-100.0) fL MCH (25.0-35.0) pg MCHC (31.0-37.0) g/dL RDW (11.5-15.5) % Plt Count (150-450) k/uL MPV Neutrophils % % Lymphocytes % % Monocytes % % Eosinophils % % Basophils % % Neutrophils # (1.3-7.7) k/uL Lymphocytes # (1.0-4.8) k/uL Monocytes # (0-1.0) k/uL Eosinophils # (0-0.7) k/uL Basophils # (0-0.2) k/uL Hypochromasia PT (9.0-12.0) sec INR (<1.2) APTT (22.0-30.0) sec Sodium (137-145) mmol/L Potassium (3.5-5.1) mmol/L Chloride (98-107) mmol/L Carbon Dioxide (22-30) mmol/L Anion Gap mmol/L BUN (9-20) mg/dL Creatinine (0.66-1.25) mg/dL Est GFR (CKD-EPI)AfAm (>60 ml/min/1.73 sqM) Est GFR (CKD-EPI)NonAf (>60 ml/min/1.73 sqM) Glucose (74-99) mg/dL Plasma Lactic Acid Nestor (0.7-2.0) mmol/L Calcium (8.4-10.2) mg/dL Magnesium (1.6-2.3) mg/dL Total Bilirubin (0.2-1.3) mg/dL AST (17-59) U/L ALT (4-49) U/L Alkaline Phosphatase (38-126) U/L Troponin I (0.000-0.034) ng/mL NT-Pro-B Natriuret Pep pg/mL Total Protein (6.3-8.2) g/dL Albumin (3.5-5.0) g/dL Coronavirus (PCR) Not Detected (Not Detectd) Influenza Type A RNA Not Detected (Not Detectd) Influenza Type B (PCR) Not Detected (Not Detectd) Disposition Clinical Impression: Dyspnea, Non-ST elevation myocardial infarction (NSTEMI), Aortic valve disease, Congestive heart failure, Elevated troponin, Altered mental state, COPD (chronic obstructive pulmonary disease) Disposition: ADMITTED IP TO THIS [facility] Condition: Fair Is patient prescribed a controlled substance at d/c from ED?: No Referrals: Sumit Dozier DO [Primary Care Provider] - 1-2 days Time of Disposition: 12:38 Decision Date: 02/08/21 Decision Time: 12:38
[2021-02-08] MEDS ORDERED: HEPARIN SODIUM 1,000 UN/ML (10ML VL) IV PRN (12:41)
[2021-02-08] MEDS ORDERED: HEPARIN SODIUM 1,000 UN/ML (10ML VL) IV ONE (12:41)
[2021-02-08] MEDS ORDERED: HEPARIN SOD,PORK IN 0.45% NACL 25,000 UNIT in 0.45% NACL 1 250ML.BAG IV SCH (12:45)
[2021-02-08 12:54] LABS: Appearance,Urine Clear (Clear); Bilirubin,Urine Negative (Negative); Blood,Urine Negative (Negative); Color,Urine Light Yellow; Glucose,Urine (UA) Negative (Negative); Ketones,Urine Negative (Negative); Leukocyte Esterase,Urine Negative (Negative); Nitrite,Urine Negative (Negative); PH, Urine 6.5 (5.0-8.0); Protein,Urine Negative (Negative); Specific Gravity,Urine 1.008 (1.001-1.035); Urobilinogen,Urine <2.0 mg/dL (<2.0)
[2021-02-08] MEDS ORDERED: ASPIRIN 325 MG TAB PO STA (12:55)
[2021-02-08] MEDS ORDERED: ACETAMINOPHEN TAB 325 MG TAB PO PRN (13:03)
[2021-02-08] MEDS ORDERED: IPRATROPIUM-ALBUTEROL 3 ML NEB INHALATION PRN (13:03)
[2021-02-08 15:00] VITALS: BMI 27.3
[2021-02-08] MEDS: ALBUTEROL HFA INHALER INHALATION PRN ×2 (16:05→20:08)
[2021-02-08] MEDS: GABAPENTIN 400 MG CAP PO SCH ×2 (16:35→21:03)
[2021-02-08 16:52] LABS: Glucose,Whole Blood 115 mg/dL (75-99)
[2021-02-08] MEDS: INSULIN ASPART (NovoLOG) 100 UNIT/ML VIAL SQ SCH ×3 (18:05→21:04)
[2021-02-08] MEDS: NITROGLYCERIN OINT 1 INCH/GM PACKET TOPICAL SCH ×2 (18:17→21:03)
[2021-02-08] MEDS: MIDODRINE 5 MG TAB PO SCH (18:17)
[2021-02-08 20:47] LABS: Glucose,Whole Blood 176 mg/dL (75-99)
[2021-02-08] MEDS: INSULIN DETEMIR (LEVEMIR) 100 UNIT/ML SYR SQ SCH (20:57)
[2021-02-08] MEDS: ZOLPIDEM 5 MG TAB PO SCH (21:03)
[2021-02-08] MEDS: MAGNESIUM OXIDE 400 MG TAB PO SCH (21:03)
[2021-02-08] MEDS: FUROSEMIDE 10 MG/ML 4 ML VIAL IV SCH (21:03)
[2021-02-08] MEDS: POTASSIUM CHLORIDE ER 10 MEQ TAB.ER.PRT PO SCH (21:03)
[2021-02-08] MEDS: PANTOPRAZOLE 40 MG TABLET PO SCH (21:03)
[2021-02-08] MEDS: PRAVASTATIN SODIUM 80 MG TAB PO SCH (21:03)
--- NOTE | 2021-02-08 22:57 | P.HPIM ---
History of Present Illness H&P Date: 02/08/21 Chief Complaint: SOB Patient is a 85-year-old male with a known history of esophageal cancer status post radiation, radiation pneumonitis, hypertension, hyperlipidemia, diabetes type 2 insulin-dependent, COPD, history of cardiac catheterization, hearing disorder/deafness, memory impairment, Cardoso's esophagus, left carotid artery 100% stenosis and right carotid surgery in October 2020 and other multiple medical problems presents to ER with complaints of shortness of breath for the past 3 days. Also has cough without any sputum production. Denies any complaints of chest pain. Since yesterday patient became more dyspneic. Patient states that he also had a fall. Denies any complaints of pain. No dysuria or hematuria. Denies any leg swelling. According to his patient had fever at around 100 this morning. Patientadmitted to hospital with similar symptoms at around 12/16/2020 Chest x-ray showed correlate for CHF., Pneumonia not excluded. There is emphysema and coronary artery disease clinically stable interstitial lung disease noted on prior CT. EKG showed normal sinus rhythm Admission blood pressure 114/70 pulse is 9 respiration 24 and pulse ox is 93% on room air Laboratory data showed WBC 10.2 hemoglobin 13.9 platelets 223 Sodium 140 potassium 4.8 chloride 105 bicarb is 21 BUN 24 and creatinine 1.1 Lactic acid 2.9 Liver enzymes are not elevated Troponin 0 0.244, 0.285 proBNP 710 Urinalysis is negative for infection Patient does have a history of multiple falls and unsteadiness in gait due to diabetic neuropathy. Patient also has chronic lumbar spondylosis with unsteady gait/falls. Patient had FATOUMATA on 08/14/2020 showed moderate aortic stenosis. Possible bicuspid valve, mild aortic and mitral regurgitation preserved LV function. Review of Systems Constitutional: Patient did have fever at home. Generalized weakness and lethargy.. Abdomen: Patient denied nausea vomiting and diarrhea and abdominal pain. Cardiovascular: Patient denies any chest pain. +r short of breath no palpitations. Respiratory: Does have cough without production. Shortness of breath. Neurologic: Patient denied any numbness or tingling headache. Complete review of systems could not be obtained from the patient. Past Medical History Past Medical History: Cancer, Heart Failure, COPD, Diabetes Mellitus, GERD/Reflux, Hearing Disorder / Deafness, Hyperlipidemia, Hypertension, Memory Impairment, Osteoarthritis (OA), Pneumonia, Renal Disease Additional Past Medical History / Comment(s): Fractures L2-L4 w/ paul[place] leg pain, DDD, Gout, CARDOSO'S esophagus, Esophageal CA-completed 28 radiation tx on 09/08/17, & 5 chemo tx 09/02/17. 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 ,see Dr Albrecht H&P, chronic kidney disease History of Any Multi-Drug Resistant Organisms: None Reported Past Surgical History: Back Surgery, Heart Catheterization, Hernia Repair, Orthopedic Surgery Additional Past Surgical History / Comment(s): Bilateral rotator cuff surgery, left foot surgery, thinks he has plate and screws, "esophagus radiofrequency ablation", paulina cataracts-lens implants, kyphoplasty. Pain procedures. Epidural steroid injection in back. Past Anesthesia/Blood Transfusion Reactions: No Reported Reaction Additional Past Anesthesia/Blood Transfusion Reaction / Comment(s): . Past Psychological History: No Psychological Hx Reported Smoking Status: Never smoker Past Alcohol Use History: Rare Additional Past Alcohol Use History / Comment(s): . Past Drug Use History: None Reported - Past Family History Mother Family Medical History: Cancer Additional Family Medical History / Comment(s): Kidney, Thyroid cancer. Father Family Medical History: Coronary Artery Disease (CAD) Additional Family Medical History / Comment(s): AT AGE 53. Medications and Allergies Home Medications Medication Instructions Recorded Confirmed Type Cetirizine HCl 10 mg PO DAILY 07/05/15 02/08/21 History Pravastatin Sodium [Pravachol] 80 mg PO HS 09/01/17 02/08/21 History Ipratropium-Albuterol Nebulize 3 ml INHALATION RT-QID PRN 07/29/19 02/08/21 History [Duoneb 0.5 mg-3 mg/3 ml Soln] Aspirin 81 mg PO DAILY chew 08/23/19 02/08/21 Rx Magnesium Oxide 400 mg PO BID 11/24/19 02/08/21 History Omeprazole [PriLOSEC] 40 mg PO BID 11/24/19 02/08/21 History Potassium Chloride [Potassium 10 meq PO BID 11/24/19 02/08/21 History Chloride ER] allopurinoL [Zyloprim] 300 mg PO DAILY 11/24/19 02/08/21 History Insulin Lispro [humaLOG Kwikpen] See Protocol SQ AC-TID 06/28/20 02/08/21 History Insulin Lispro [humaLOG Kwikpen] 10 unit SQ AC-TID 11/19/20 02/08/21 History Yupelri 175mcg/3ml Solution 175 mcg INHALATION RT-DAILY 11/19/20 02/08/21 History buPROPion HCL [Wellbutrin XL] 300 mg PO DAILY 11/19/20 02/08/21 History Acetaminophen [Tylenol 8 Hour] 650 mg PO Q4H PRN 12/10/20 02/08/21 History Furosemide [Lasix] 40 mg PO DAILY #30 tab 12/16/20 02/08/21 Rx Gabapentin [Neurontin] 400 mg PO BID@0800,1400 02/08/21 02/08/21 History Gabapentin [Neurontin] 800 mg PO HS 02/08/21 02/08/21 History Insulin Glargine,Hum.rec.anlog 20 unit SQ 02/08/21 02/08/21 History [Lantus Solostar Pen] Midodrine [ProAmatine] 10 mg PO BID 02/08/21 02/08/21 History Zolpidem [Ambien] 10 mg PO HS 02/08/21 02/08/21 History Allergies Allergy/AdvReac Type Severity Reaction Status Date / Time latex Allergy Rash/Hives Verified 02/08/21 11:32 penicillin G Allergy Rash/Hives Verified 02/08/21 11:32 Physical Exam Vitals: Vital Signs Temp Pulse Resp BP Pulse Ox 02/08/21 14:00 98.9 F 63 18 120/59 95 02/08/21 13:00 61 18 95 02/08/21 12:00 67 18 117/57 95 02/08/21 11:29 68 02/08/21 11:18 68 02/08/21 11:00 70 18 122/81 93 L 02/08/21 10:41 18 93 L 02/08/21 09:39 98.9 F 79 24 114/70 93 L Intake and Output 02/08/21 02/08/21 02/08/21 06:59 14:59 22:59 Other: Voiding Method Urinal Weight 79.379 kg 79.379 kg PHYSICAL EXAMINATION: Patient is lying in the bed comfortably, no acute distress, awake alert and oriented.Poor historian.. HEENT: Normocephalic. Neck is supple. Pupils reactive. Nostrils clear. Oral cavity is moist. Neck reveals no JVD, carotid bruits, or thyromegaly. CHEST EXAMINATION: Trachea is central. Symmetrical expansion. Bilateral scattered coarse sounds and crackles. No wheezing or rhonchi. Nonlabored breathing.n. CARDIAC: Normal S1, S2 with no gallops. No murmurs ABDOMEN: Soft. Bowel sounds normal. No organomegaly. No abdominal bruits. Extremities: trace edema. No clubbing or cyanosis Neurologically awake, alert, oriented x3 with well-coordinated movements. No focal deficits noted Skin: No rash or skin lesions. Psychiatric: Coperative. Nonsuicidal Musculoskeletal: No joint swelling or deformity. Normal range of motion. Results CBC & Chem 7: 02/08/21 10:06 02/08/21 10:06 Labs: Abnormal Lab Results - Last 24 Hours (Table) 02/08/21 02/08/21 02/08/21 Range/Units 10:06 10:06 10:06 Neutrophils # 8.5 H (1.3-7.7) k/uL Carbon Dioxide 21 L (22-30) mmol/L BUN 24 H (9-20) mg/dL Glucose 197 H (74-99) mg/dL Plasma Lactic Acid Nestor 2.9 H* (0.7-2.0) mmol/L Troponin I (0.000-0.034) ng/mL 02/08/21 02/08/21 Range/Units 10:06 13:35 Neutrophils # (1.3-7.7) k/uL Carbon Dioxide (22-30) mmol/L BUN (9-20) mg/dL Glucose (74-99) mg/dL Plasma Lactic Acid Nestor (0.7-2.0) mmol/L Troponin I 0.244 H* 0.285 H* (0.000-0.034) ng/mL Thrombosis Risk Factor Assmnt - DVT/VTE Prophylaxis DVT/VTE Prophylaxis: Pharmacologic Prophylaxis ordered - Choose All That Apply Each Factor Represents 1 point: Abnormal pulmonary function (COPD), Acute MD, Serious lung disease incl. pneumonia (< 1month) Each Risk Factor Represents 2 Points: Patient confined to bed Each Risk Factor Represents 3 Points: Age 75 years or older Thrombosis Risk Factor Assessment Total Risk Factor Score: 8 Thrombosis Risk Factor Assessment Level: High Risk Assessment and Plan Assessment: Acute non-ST elevated MD with elevated troponin level. Acute on chronic CHF with diastolic dysfunction Possible pneumonia/pneumonitis Moderate aortic valve stenosis/bicuspid valve History of carotid stenosis with right carotid endarterectomy and left 100% stenosis History of multiple falls due to diabetic neuropathy Hypertension Hyperlipidemia Peripheral vascular disease Esophageal cancer status post radiation Radiation pneumonitis history Chronic lumbar spondylosis Diabetes type 2 insulin-dependent GERD Hearing disorder/deafness Osteoarthritis Hiatal hernia DVT prophylaxis with heparin subcu Plan: Patient will be continued on telemetry monitoring. Continue with IV Lasix 40 mg every 12 and monitor renal function. Serial EKG and troponin x3. Patient will be continued heparin drip and cardiology was consulted. Continue with empiric antibiotics in the form of azithromycin and ceftriaxone for possible pneumonia. Continue with insulin regimen and titrate insulin dose. GI and DVT prophylaxis. Continue to follow closely. Prognosis is guarded with multiple medical problems and comorbid conditions. Time with Patient: Greater than 30
[2021-02-09 06:20] LABS: Glucose,Whole Blood 110 mg/dL (75-99)
[2021-02-09] MEDS: INSULIN ASPART (NovoLOG) 100 UNIT/ML VIAL SQ SCH ×7 (06:25→20:19)
[2021-02-09 06:33] LABS: Basophils % (A) 0 %; Eosinophils # (A) 0.2 k/uL (0-0.7); Eosinophils % (A) 3 %; HCT 41.3 % (39.0-53.0); HGB 13.3 gm/dL (13.0-17.5); Hypochromasia Slight; Lymphocytes # (A) 1.2 k/uL (1.0-4.8); Lymphocytes % (A) 18 %; MCH 29.3 pg (25.0-35.0); MCHC 32.2 g/dL (31.0-37.0); MCV 90.8 fL (80.0-100.0); Mean Platelet Volume 8.5; Monocytes # (A) 0.3 k/uL (0-1.0); Monocytes % (A) 4 %; Neutrophils # (A) 4.7 k/uL (1.3-7.7); Neutrophils % (A) 71 %; Platelet Count 190 k/uL (150-450); RBC 4.54 m/uL (4.30-5.90); RDW 15.3 % (11.5-15.5); WBC 6.6 k/uL (3.8-10.6)
[2021-02-09] MEDS: MIDODRINE 5 MG TAB PO SCH ×2 (06:47→17:05)
[2021-02-09 07:00] LABS: Prothrombin Time 10.9 sec (9.0-12.0)
[2021-02-09] MEDS: TIOTROPIUM 2.5 MCG INHALER INHALATION PRN (07:34)
[2021-02-09] MEDS: ALBUTEROL HFA INHALER INHALATION PRN ×2 (07:35→20:52)
[2021-02-09] MEDS: POTASSIUM CHLORIDE ER 10 MEQ TAB.ER.PRT PO SCH ×2 (08:07→20:19)
[2021-02-09] MEDS: PANTOPRAZOLE 40 MG TABLET PO SCH ×2 (08:07→20:19)
[2021-02-09] MEDS: FUROSEMIDE 10 MG/ML 4 ML VIAL IV SCH ×2 (08:07→20:19)
[2021-02-09] MEDS: buPROPion XL 300 MG TAB.ER.24H PO SCH (08:07)
[2021-02-09] MEDS: LORATADINE 10 MG TAB PO SCH (08:07)
[2021-02-09] MEDS: GABAPENTIN 400 MG CAP PO SCH ×3 (08:07→20:19)
[2021-02-09] MEDS: MAGNESIUM OXIDE 400 MG TAB PO SCH ×2 (08:08→20:19)
[2021-02-09] MEDS: allopurinoL 300 MG TAB PO SCH (08:08)
[2021-02-09] MEDS: NITROGLYCERIN OINT 1 INCH/GM PACKET TOPICAL SCH (08:08)
[2021-02-09] MEDS ORDERED: AZITHROMYCIN 500 MG in SODIUM CHLORIDE 0.9% 250 ML IVPB SCH (09:00)
[2021-02-09] MEDS: YUPELRI INHALATION SCH (09:07)
--- NOTE | 2021-02-09 10:42 | P.CRDCN ---
History of Present Illness Consult date: 02/08/21 History of present illness: HISTORY OF PRESENT ILLNESS: This is a 85-year-old male with a past medical history significant for hypertension, hyperlipidemia, congestive heart failure, peripheral vascular disease, carotid stenosis, aortic stenosis, and diabetes mellitus. Patient follows in the office with Dr. Albrecht. We have been asked to see the patient in consultation for elevated troponins. It is noted the patient was hospitalized in November 2020 for leukocytosis and hypotension and required vasopressors. Patient examined at the bedside. Patient states over the past few days he has had worsening shortness of breath. He reports a cough at home but denies sputum production. He also reports having a fever at home. Patient was just recently evaluated by his advanced analytics associate and the plan was to repeat an echocardiogram in April and if there is any progression of the aortic stenosis than the patient will be scheduled for a cardiac catheterization would be considered for possible TAVR. The patient denies any chest pain or pressure. He reports mild shortness of breath at the time of examination. Patient reports having a cardiac cath 20 years ago but states he did not require any stents to be placed. EKG reveals sinus mechanism with no signs of acute ischemia Chest xray correlate for congestive heart failure, pneumonia not excluded. There is emphysema and coronary artery disease, pre-existing interstitial lung disease noted on prior CT. Laboratory data: WBC 10.2. Hemoglobin 13.9. Platelet count 223. Sodium 140. Potassium 4.8. BUN 24. Creatinine 1.10. Lactic acid 2.9. Repeat 1.0. ProBNP 710. Troponin 0.244. Current home cardiac medications include Pravachol 80 mg daily, Midodrine 10 mg twice a day, Lasix 40 g daily, aspirin 81 mg daily Most recent echocardiogram obtained in November 2020 revealed ejection fraction greater than 70%. Mild aortic regurgitation. Severe aortic stenosis. Cannot exclude vegetation of AOV. Moderate tricuspid regurgitation. Severe pulmonary hypertension. RVSP 66.98 mmHg. REVIEW OF SYSTEMS: At the time of my exam: CONSTITUTIONAL: Denies fever or chills. HEENT: Denies blurred vision, vision changes, or eye pain. Denies hemoptysis CARDIOVASCULAR: Denies chest pain. Denies orthopnea. Denies PND. Denies palpitations RESPIRATORY: reports shortness of breath. GASTROINTESTINAL: Denies abdominal pain. Denies nausea or vomiting. HEMATOLOGIC: Denies bleeding disorders. GENITOURINARY: Denies any blood in urine. SKIN: Denies pruitis. Denies rash. PHYSICAL EXAM: VITAL SIGNS: Reviewed. GENERAL: Well-developed in no acute distress. HEENT: Head is normocephalic. Pupils are equal, round. Sclerae anicteric. Mucous membranes of the mouth are moist. Neck supple. No JVD or thyromegaly LUNGS: Respirations even and unlabored. Lungs diminished to auscultation bilaterally with minimal bibasilar crackles. HEART: Regular rate and rhythm. S1 and S2 heard. Systolic murmur noted. ABDOMEN: Soft. Nondistended. Nontender. EXTREMITIES: Normal range of motion. No clubbing or cyanosis. Peripheral pulses intact. No lower extremity edema NEUROLOGIC: Awake and alert. Oriented x 3. ASSESSMENT: Shortness of breath Fever Possible pneumonia/pneumonitis Abnormal troponins, possible non-stemi Acute on chronic diastolic heart failure Aortic stenosis Hypertension Hyperlipidemia History of carotid stenosis with recent right carotid endarterectomy Peripheral vascular disease History of esophageal cancer with radiation and chemotherapy PLAN: Resume home cardiac medications Discontinue IV heparin Continue IV lasix for an additional 24 hours Continue antibiotics for possible pneumonia Obtain limited echo Further recommendations pending patient course Nurse practitioner note has been reviewed by physician. Signing provider agrees with the documented findings, assessment, and plan of care. Past Medical History Past Medical History: Cancer, Heart Failure, COPD, Diabetes Mellitus, GERD/Reflux, Hearing Disorder / Deafness, Hyperlipidemia, Hypertension, Memory Impairment, Osteoarthritis (OA), Pneumonia, Renal Disease Additional Past Medical History / Comment(s): Fractures L2-L4 w/ [place] leg pain, DDD, Gout, CARDOSO'S esophagus, Esophageal CA-completed 28 radiation tx on 09/08/17, & 5 chemo tx 09/02/17. 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 ,see Dr Albrecht H&P, chronic kidney disease History of Any Multi-Drug Resistant Organisms: None Reported Past Surgical History: Back Surgery, Heart Catheterization, Hernia Repair, Orthopedic Surgery Additional Past Surgical History / Comment(s): Bilateral rotator cuff surgery, left foot surgery, thinks he has plate and screws, "esophagus radiofrequency ablation", paulina cataracts-lens implants, kyphoplasty. Pain procedures. Epidural steroid injection in back. Past Anesthesia/Blood Transfusion Reactions: No Reported Reaction Additional Past Anesthesia/Blood Transfusion Reaction / Comment(s): . Past Psychological History: No Psychological Hx Reported Smoking Status: Never smoker Past Alcohol Use History: Rare Past Drug Use History: None Reported - Past Family History Mother Family Medical History: Cancer Additional Family Medical History / Comment(s): Kidney, Thyroid cancer. Father Family Medical History: Coronary Artery Disease (CAD) Additional Family Medical History / Comment(s): AT AGE 53. Medications and Allergies Home Medications Medication Instructions Recorded Confirmed Type Cetirizine HCl 10 mg PO DAILY 07/05/15 02/08/21 History Pravastatin Sodium [Pravachol] 80 mg PO HS 09/01/17 02/08/21 History Ipratropium-Albuterol Nebulize 3 ml INHALATION RT-QID PRN 07/29/19 02/08/21 History [Duoneb 0.5 mg-3 mg/3 ml Soln] Aspirin 81 mg PO DAILY chew 08/23/19 02/08/21 Rx Magnesium Oxide 400 mg PO BID 11/24/19 02/08/21 History Omeprazole [PriLOSEC] 40 mg PO BID 11/24/19 02/08/21 History Potassium Chloride [Potassium 10 meq PO BID 11/24/19 02/08/21 History Chloride ER] allopurinoL [Zyloprim] 300 mg PO DAILY 11/24/19 02/08/21 History Insulin Lispro [humaLOG Kwikpen] See Protocol SQ AC-TID 06/28/20 02/08/21 History Insulin Lispro [humaLOG Kwikpen] 10 unit SQ AC-TID 11/19/20 02/08/21 History Yupelri 175mcg/3ml Solution 175 mcg INHALATION RT-DAILY 11/19/20 02/08/21 History buPROPion HCL [Wellbutrin XL] 300 mg PO DAILY 11/19/20 02/08/21 History Acetaminophen [Tylenol 8 Hour] 650 mg PO Q4H PRN 12/10/20 02/08/21 History Furosemide [Lasix] 40 mg PO DAILY #30 tab 12/16/20 02/08/21 Rx Gabapentin [Neurontin] 400 mg PO BID@0800,1400 02/08/21 02/08/21 History Gabapentin [Neurontin] 800 mg PO HS 02/08/21 02/08/21 History Insulin Glargine,Hum.rec.anlog 20 unit SQ HS 02/08/21 02/08/21 History [Lantus Solostar Pen] Midodrine [ProAmatine] 10 mg PO BID 02/08/21 02/08/21 History Zolpidem [Ambien] 10 mg PO HS 02/08/21 02/08/21 History Allergies Allergy/AdvReac Type Severity Reaction Status Date / Time latex Allergy Rash/Hives Verified 02/08/21 11:32 penicillin G Allergy Rash/Hives Verified 02/08/21 11:32 Physical Exam Vitals: Vital Signs Temp Pulse Resp BP Pulse Ox 02/08/21 14:00 98.9 F 67 18 117/57 95 02/08/21 12:00 67 18 117/57 95 02/08/21 11:29 68 02/08/21 11:18 68 02/08/21 11:00 70 18 122/81 93 L 02/08/21 10:41 18 93 L 02/08/21 09:39 98.9 F 79 24 114/70 93 L Intake and Output 02/07/21 02/08/21 02/08/21 22:59 06:59 14:59 Other: Weight 79.379 kg Results 02/09/21 06:12 02/08/21 10:06 Cardiac Enzymes 02/08/21 02/08/21 Range/Units 10:06 10:06 AST 30 (17-59) U/L Troponin I 0.244 H* (0.000-0.034) ng/mL Coagulation 02/08/21 Range/Units 10:06 PT 10.6 (9.0-12.0) sec APTT 27.3 (22.0-30.0) sec CBC 02/08/21 Range/Units 10:06 WBC 10.2 (3.8-10.6) k/uL RBC 4.86 (4.30-5.90) m/uL Hgb 13.9 (13.0-17.5) gm/dL Hct 43.6 (39.0-53.0) % Plt Count 223 (150-450) k/uL Comprehensive Metabolic Panel 02/08/21 Range/Units 10:06 Sodium 140 (137-145) mmol/L Potassium 4.8 (3.5-5.1) mmol/L Chloride 105 (98-107) mmol/L Carbon Dioxide 21 L (22-30) mmol/L BUN 24 H (9-20) mg/dL Creatinine 1.10 (0.66-1.25) mg/dL Glucose 197 H (74-99) mg/dL Calcium 9.2 (8.4-10.2) mg/dL AST 30 (17-59) U/L ALT 18 (4-49) U/L Alkaline Phosphatase 98 (38-126) U/L Total Protein 7.5 (6.3-8.2) g/dL Albumin 3.9 (3.5-5.0) g/dL Current Medications Generic Name Dose Route Start Last Admin Trade Name Freq PRN Reason Stop Dose Admin Acetaminophen 650 mg 02/08/21 13:03 Acetaminophen Tab 325 Mg Tab PO Q4H PRN Pain or Fever > 100.5 Albuterol/Ipratropium 3 ml 02/08/21 13:03 Ipratropium-Albuterol 3 Ml Neb INHALATION RT-QID PRN Shortness Of Breath Allopurinol 300 mg 02/09/21 09:00 Allopurinol 300 Mg Tab PO DAILY MELVA Bupropion HCl 300 mg 02/09/21 09:00 Bupropion Xl 300 Mg Tab.Er.24h PO DAILY MELVA Furosemide 40 mg 02/08/21 21:00 Furosemide 10 Mg/Ml 4 Ml Vial IV Q12HR MELVA Gabapentin 400 mg 02/08/21 14:00 Gabapentin 400 Mg Cap PO BID@0800,1400 MELVA Gabapentin 800 mg 02/08/21 21:00 Gabapentin 400 Mg Cap PO HS MELVA Heparin Sodium (Porcine) 0 unit 02/08/21 12:41 Heparin Sodium 1,000 Un/Ml (10ml Vl) IV PER PROTOCOL PRN Low PTT Protocol Sodium Chloride 1,000 mls @ 75 mls/hr 02/08/21 10:08 02/08/21 10:26 Saline 0.9% IV 02/08/21 23:27 75 mls/hr .[id number] STA Administration Heparin Sodium/Sodium Chloride 250 mls @ 9.525 mls/hr 02/08/21 12:45 02/08/21 14:12 25,000 unit/ Sodium Chloride IV 12 units/kg/hr .Q24H MELVA 9.525 mls/hr Administration Protocol 12 UNITS/KG/HR Azithromycin 500 mg/ Sodium 250 mls @ 250 mls/hr 02/09/21 09:00 Chloride IVPB DAILY MELVA Ceftriaxone Sodium 1 gm/ 50 mls @ 100 mls/hr 02/09/21 09:00 Sodium Chloride IVPB DAILY MELVA Insulin Aspart 10 unit 02/08/21 17:30 Insulin Aspart (Novolog) 100 Unit/Ml Vial SQ AC-TID MELVA Insulin Aspart 0 unit 02/08/21 17:30 Insulin Aspart (Novolog) 100 Unit/Ml Vial SQ ACHS [facility] Protocol Insulin Detemir 20 unit 02/08/21 21:00 Insulin Detemir (Levemir) 100 Unit/Ml Syr SQ HS MELVA Loratadine 10 mg 02/09/21 09:00 Loratadine 10 Mg Tab PO DAILY MELVA Magnesium Oxide 400 mg 02/08/21 21:00 Magnesium Oxide 400 Mg Tab PO BID MELVA Midodrine 10 mg 02/08/21 17:30 Midodrine 5 Mg Tab PO AC-BID MELVA Nitroglycerin 1 inch 02/08/21 18:00 Nitroglycerin Oint 1 Inch/Gm Packet TOPICAL QID MELVA Patient's Own ( 175 mcg 02/09/21 08:00 Yupelri 175mcg/3ml INHALATION Solution 175 Mcg) RT-DAILY MELVA Pantoprazole Sodium 40 mg 02/08/21 21:00 Pantoprazole 40 Mg Tablet PO BID MELVA Potassium Chloride 10 meq 02/08/21 21:00 Potassium Chloride Er 10 Meq Tab.Er.Prt PO BID MELVA Pravastatin Sodium 80 mg 02/08/21 21:00 Pravastatin Sodium 80 Mg Tab PO HS MELVA Zolpidem Tartrate 10 mg 02/08/21 21:00 Zolpidem 5 Mg Tab PO HS MELVA Intake and Output 02/07/21 02/08/21 02/08/21 22:59 06:59 14:59 Other: Weight 79.379 kg Patient Weight 02/09/21 06:59 Weight 79.379 kg 02/08/21 10:06 02/08/21 10:06
[2021-02-09 11:46] LABS: Glucose,Whole Blood 193 mg/dL (75-99)
--- NOTE | 2021-02-09 12:41 | P.CNPUL ---
History of Present Illness Consult date: 02/09/21 Reason for consult: dyspnea History of present illness: 85-year-old male patient, known to me for his history of pulmonary fibrosis, COPD, esophageal cancer in addition to various comorbidities that have been treated over the years both inpatient and outpatient. Patient was doing well. He was recently my office and he was quite stable. The patient came in to the burst department yesterday the patient was feeling weak and he reported Fever at Home and He Had Also Some Cough without Any Significant Sputum Production. No Chest Pain. No Pleurisy or Hemoptysis. No Swelling Lower Extremities. No Altered Mentation. He Was Quite concerning for That Reason He Was Brought into the Hospital for Further Evaluation. The Patient Is Also Known to Have Aortic Stenosis Being Followed up by Cardiology. In the Hospital, Chest X-Ray Showed Some Chronic Interstitial Changes Consistent with Old Fibrosis Especially in the Lung Bases in Addition to Some Count COPD. EKG Showed No Acute Ischemic Changes. at the Was at 10.2 with Hemoglobin of 13.9. BUN Was 24 with a Creatinine of 1.1. Sodium Is at Home for 3. Initial Lactic Acid Level Was at 2.9. Troponin Was 0.269. ProBNP Level Was 710. The Patient Was Started on a Combination of Rocephin and Zithromax. He Was Admitted to the Medical Floor. He Is Already Feeling Better. Less Short of Breath. He Seems to Be Getting Better over the past 24 Hours. No Altered Mentation. No Signs of Any Fluid Overload. Review of Systems Comprehensive General Adult ROS Reported by Patient Constitutional Constitutional: no fever, no night sweats, weight gain (5lbs), exercise intolerance (motor weakness in lower extremities bilaterally in addition to upper extremities and has difficulty with mobility, and this has improved and the patient is ambulating and he is much more active.) Eyes Eyes: no dry eyes, no vision change, no irritation ENMT Ears: no difficulty hearing, no ear pain Nose: no frequent nosebleeds, no nose problems, no sinus problems Mouth/Throat: no sore throat, no bleeding gums, no snoring, no dry mouth, no mouth ulcers, no oral abnormalities, no teeth problems Cardiovascular Cardiovascular: no chest pain, no arm pain on exertion, no shortness of breath when lying down, no palpitations, no known heart murmur, shortness of breath when walking Respiratory Respiratory: no wheezing, no coughing up blood, no sleep apnea, cough, shortness of breath Gastrointestinal Gastrointestinal: no abdominal pain, no nausea, no vomiting, no constipation, normal appetite, no diarrhea, not vomiting blood, no dyspepsia, no GERD, change in appetite Genitourinary Genitourinary: no incontinence, no difficulty urinating, no hematuria, no increa sed frequency Musculoskeletal Musculoskeletal: no muscle aches, no muscle weakness, no arthralgias/joint pain, no back pain, no swelling in the extremities Integumentary Skin: no abnormal mole, no jaundice, no rashes, no laceration Neurologic Neurologic: no numbness, no seizures, no dizziness, no migraines, no headaches, no tremor, weakness (mental status and generalized weakness) Psychiatric Psych: no depression, no sleep disturbances, feeling safe in a relationship, no alcohol abuse, no anxiety, no hallucinations, no suicidal thoughts Endocrine Endocrine: fatigue Hematologic/Lymphatic Hematologic/Lymphatic no swollen glands, no bruising, no excessive bleeding Allergic/Immunologic Allergy/Immunologic: no runny nose, no sinus pressure, no itching, no hives, no frequent sneezing Past Medical History Past Medical History: Cancer, Heart Failure, COPD, Diabetes Mellitus, GERD/Reflux, Hearing Disorder / Deafness, Hyperlipidemia, Hypertension, Memory Impairment, Osteoarthritis (OA), Pneumonia, Renal Disease Additional Past Medical History / Comment(s): Fractures L2-L4 w/ paulina leg pain, DDD, Gout, CARDOSO'S esophagus, Esophageal CA-completed 28 radiation tx on 09/08/17, & 5 chemo tx 09/02/17. 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 ,see Dr Albrecht H&P, chronic kidney disease History of Any Multi-Drug Resistant Organisms: None Reported Past Surgical History: Back Surgery, Heart Catheterization, Hernia Repair, Orthopedic Surgery Additional Past Surgical History / Comment(s): Bilateral rotator cuff surgery, left foot surgery, thinks he has plate and screws, "esophagus radiofrequency ablation", paulina cataracts-lens implants, kyphoplasty. Pain procedures. Epidural steroid injection in back. Past Anesthesia/Blood Transfusion Reactions: No Reported Reaction Additional Past Anesthesia/Blood Transfusion Reaction / Comment(s): . Past Psychological History: No Psychological Hx Reported Smoking Status: Never smoker Past Alcohol Use History: Rare Additional Past Alcohol Use History / Comment(s): . Past Drug Use History: None Reported - Past Family History Mother Family Medical History: Cancer Additional Family Medical History / Comment(s): Kidney, Thyroid cancer. Father Family Medical History: Coronary Artery Disease (CAD) Additional Family Medical History / Comment(s): AT AGE 53. Medications and Allergies Home Medications Medication Instructions Recorded Confirmed Type Cetirizine HCl 10 mg PO DAILY 07/05/15 02/08/21 History Pravastatin Sodium [Pravachol] 80 mg PO HS 09/01/17 02/08/21 History Ipratropium-Albuterol Nebulize 3 ml INHALATION RT-QID PRN 07/29/19 02/08/21 History [Duoneb 0.5 mg-3 mg/3 ml Soln] Aspirin 81 mg PO DAILY chew 08/23/19 02/08/21 Rx Magnesium Oxide 400 mg PO BID 11/24/19 02/08/21 History Omeprazole [PriLOSEC] 40 mg PO BID 11/24/19 02/08/21 History Potassium Chloride [Potassium 10 meq PO BID 11/24/19 02/08/21 History Chloride ER] allopurinoL [Zyloprim] 300 mg PO DAILY 11/24/19 02/08/21 History Insulin Lispro [humaLOG Kwikpen] See Protocol SQ AC-TID 06/28/20 02/08/21 History Insulin Lispro [humaLOG Kwikpen] 10 unit SQ AC-TID 11/19/20 02/08/21 History Yupelri 175mcg/3ml Solution 175 mcg INHALATION RT-DAILY 11/19/20 02/08/21 History buPROPion HCL [Wellbutrin XL] 300 mg PO DAILY 11/19/20 02/08/21 History Acetaminophen [Tylenol 8 Hour] 650 mg PO Q4H PRN 12/10/20 02/08/21 History Furosemide [Lasix] 40 mg PO DAILY #30 tab 12/16/20 02/08/21 Rx Gabapentin [Neurontin] 400 mg PO BID@0800,1400 02/08/21 02/08/21 History Gabapentin [Neurontin] 800 mg PO HS 02/08/21 02/08/21 History Insulin Glargine,Hum.rec.anlog 20 unit SQ HS 02/08/21 02/08/21 History [Lantus Solostar Pen] Midodrine [ProAmatine] 10 mg PO BID 02/08/21 02/08/21 History Zolpidem [Ambien] 10 mg PO HS 02/08/21 02/08/21 History Allergies Allergy/AdvReac Type Severity Reaction Status Date / Time latex Allergy Rash/Hives Verified 02/08/21 11:32 penicillin G Allergy Rash/Hives Verified 02/08/21 11:32 Physical Exam Vitals: Vital Signs Temp Pulse Resp BP BP Pulse Ox 02/08/21 18:13 98/56 02/08/21 14:00 98.9 F 63 18 120/59 95 02/08/21 13:00 61 18 95 02/08/21 12:00 67 18 117/57 95 02/08/21 11:29 68 02/08/21 11:18 68 02/08/21 11:00 70 18 122/81 93 L 02/08/21 10:41 18 93 L 02/08/21 09:39 98.9 F 79 24 114/70 93 L Intake and Output 02/08/21 02/08/21 02/08/21 06:59 14:59 22:59 Intake Total 180 Balance 180 Intake: Oral 180 Other: Voiding Method Urinal Weight 79.379 kg 79.379 kg General Appearance no diaphoresis, no respiratory distress, speech not interrupted by breaths, no dyspnea, no pallor, cachectic, appears ill HEENT no pursed lip breathing, no jugular venous distention, no mucous membrane cyanosis, no perioral cyanosis, mallampati classification: class 1, Mallampati Classification: Class 3 Chest no barrel chest, no retractions, no sternocleidomastoid muscle contractions, no supraclavicular retractions, no intercostal retractions, no prolonged expiratory wheezing, no decreased air movement, no rhonchi, no hyperinflation, (normal) adventitious sounds: rales / crackles: bilaterally: midlung nogueira, decreased air movement (crackles in the lung bases , L.>R) Heart no right ventricular heave, no distant heart sounds, no s3 gallop, (normal) jugular vein: jugular venous distention: by 0cm, (normal) jugular vein GI bowel sounds: hyperactive (borborygmi), bowel sounds: diminished or absent Extremities no cyanosis, no clubbing, edema (trace edema in the legs) Neurologic no decreased mental status, no somnolence, no confusion (improving weakness and all of his extremities and the patient's ability to walk is also improved.) Assisstive Devices: ambulates with no assitive devices, ambulates with cane Gait and Mobility: gait WNL, full weight bearing Skin General Appearance normal, (normal) normal except as noted Results - Laboratory Findings CBC and BMP: 02/09/21 06:12 02/08/21 10:06 PT/INR, D-dimer PT 10.6 sec (9.0-12.0) 02/08/21 10:06 INR 1.0 (<1.2) 02/08/21 10:06 Abnormal lab findings: Abnormal Labs 02/08/21 02/08/21 02/08/21 10:06 10:06 10:06 Neutrophils # 8.5 H Carbon Dioxide 21 L BUN 24 H Glucose 197 H POC Glucose (mg/dL) Plasma Lactic Acid Nestor 2.9 H* Troponin I 02/08/21 02/08/21 02/08/21 10:06 13:35 16:50 Neutrophils # Carbon Dioxide BUN Glucose POC Glucose (mg/dL) 115 H Plasma Lactic Acid Nestor Troponin I 0.244 H* 0.285 H* - Diagnostic Findings Chest x-ray: image reviewed Assessment and Plan Plan: 1 dyspnea, chronic with acute worsening associated with some cough and low-grade fever. No clear indication for pneumonia. The patient had a chest x-ray that shows chronic interstitial changes in lung bases bilaterally consistent with fibrosis. No airspace disease or consolidation. We'll continue to follow. 2 severe chronic obstructive pulmonary disease- the patient is currently on Yupelri and the patient is using DuoNeb nebulized treatments as needed. He is off the budesonide and the medication was discontinued because of ongoing recurrent gram-negative infections of the lungs. Note that the patient has had previous hospitalization for tracheobronchitis with sputum culture positive for stenotrophomonas maltophilia multidrug resistant, including Levaquin, ceftazidime, and Bactrim . This was cultured in the sputum on 07/29/2019, 07/23/2019, 07/18/2019, 07/14/2019. Meanwhile, last CAT scan of the chest from February 2020 showed COPD and some fibrotic changes in lung bases and the patient did not have any significant pneumonia.. The most recent sputum culture that was done during this most recent hospitalization in November 2020 showed MSSA Maria L. Currently he has no signs of any infection. I tried to put this patient on Trelegy Ellipta, however the medication was not covered 3 previous infections -bacterial infection due to Pseudomonas UTI secondary to pseudomonas much treated with ciprofloxacin and the patient has recovered from an underlying urinary tract infection. This was an infection of the current on 08/17/2019 during her most recent hospital stay. 4 methicillin resistant Staphylococcus aureus infection-the patient had a bout of staphylococcal pneumonia and septicemia during the hospitalization on 07/30/2019. This was cultured in the sputum and was counseled cultured and the blood and the patient has been adequately treated. 5 history of previous acute respiratory distress syndrome 6 chronic hypoxemic respiratory failure secondary to above. This occurred after an acute hypoxic respiratory event/ARDS. clinically improving. Oxygenation has improved and the patient does not need oxygen supplementation. The concentrator will be returned. 7 malignant tumor of esophagus post chemoradiation therapy and the patient is disease seems to be in remission for now and this was further confirmed by a follow-up CAT scan of the chest that was done on 07/13/2018. He is swallowing well. he has undergone a CAT scan of the chest and abdomen and pelvis on 02/11/2019 he showed no evidence of any disease progression. His esophageal cancer is currently in remission. the most recent CAT scan of the chest from November 2019 showed a lymph node in the suprahilar area on the right that needs to be monitored and a follow-up CAT scan was ordered to be done and March 2020.also pleased to report that the follow- up PET scan that was done on this patient on 04/27/2020 showed no evidence of any suspicious metabolic activity to suggest recurrent esophageal cancer. 8 physical deconditioning 9 aortic valve stenosis- valvular heart disease with moderate degree of aortic stenosis and an ejection fraction of 55-60%. The peak gradient across the valve was 41 mmHg no significant pulmonary hypertension. repeat echocardiogram showed severe aortic stenosis and this is based on echocardiogram that was on the 2020. The peak gradient across the valve is 85. Is also significant pulmonary hypertension with a PA pressure estimated to be around 66 mmHg. There is interval worsening in severity of aortic stenosis. Cardiology is aware and the patient is going to be considered for a T aVR procedure. 10 hypertensive disorder 11 hyperlipidemia 12 gout 13 carotid artery stenosis, post carotid endarterectomy on the right Plan Check pro calcitonin levels Based on previous bacteriology, cover this patient IV cefepime Resume home medications Monitor fever pattern There may be a component of non-STEMI treated with as cardiology to comment on the troponin elevation and evaluate this patient's valvular function knowing that he has a component of aortic stenosis we'll continue to follow
--- NOTE | 2021-02-09 13:46 | ECHOF ---
Referral Reason:LV function, assess for LV wall abnormal. MEASUREMENTS -------- HEIGHT: 170.2 cm WEIGHT: 80.3 kg BP: 124/55 IVSd: 1.7 cm (0.6 - 1.1) LVIDd: 3.9 cm (3.9 - 5.3) LVPWd: 1.6 cm (0.6 - 1.1) IVSs: 2.4 cm LVIDs: 2.5 cm LVPWs: 1.6 cm AV maxP.24 mmHg AV meanP.53 mmHg FINDINGS -------- Sinus rhythm. This was a technically adequate study. Limited Study The left ventricular size is normal. There is moderate concentric left ventricular hypertrophy. O verall left ventricular systolic function is normal with, an EF between 55 - 60 %. There is severe aortic stenosis present. Peak/mean gradient across the Aortic Valve is 64.24mmHg / 38.53mmHg. There is no pericardial effusion. CONCLUSIONS -------- 1. The left ventricular size is normal. 2. There is moderate concentric left ventricular hypertrophy. 3. Overall left ventricular systolic function is normal with, an EF between 55 - 60 %. 4. There is severe aortic stenosis present. 5. Peak/mean gradient across the Aortic Valve is 64.24mmHg / 38.53mmHg. GUM MAKER: Dyana Carmona [facility]
[2021-02-09 16:54] LABS: Glucose,Whole Blood 72 mg/dL (75-99)
[2021-02-09 20:08] LABS: Glucose,Whole Blood 205 mg/dL (75-99)
[2021-02-09] MEDS: CEFEPIME 1 GM in SODIUM CHLORIDE 0.9% 50 ML IVPB SCH (20:18)
[2021-02-09] MEDS: PRAVASTATIN SODIUM 80 MG TAB PO SCH (20:19)
[2021-02-09] MEDS: ZOLPIDEM 5 MG TAB PO SCH (20:19)
[2021-02-09] MEDS: INSULIN DETEMIR (LEVEMIR) 100 UNIT/ML SYR SQ SCH (21:28)
[2021-02-10 06:09] LABS: Glucose,Whole Blood 77 mg/dL (75-99)
[2021-02-10] MEDS: INSULIN ASPART (NovoLOG) 100 UNIT/ML VIAL SQ SCH ×7 (06:10→20:36)
[2021-02-10] MEDS: MIDODRINE 5 MG TAB PO SCH ×2 (06:19→17:03)
--- NOTE | 2021-02-10 07:32 | XR ---
EXAMINATION TYPE: XR chest 1V portable DATE OF EXAM: 02/10/2021 COMPARISON: Chest x-ray 02/08/2021 HISTORY: Right lower lobe infiltrate TECHNIQUE: Single frontal view of the chest is obtained. FINDINGS: Patchy basilar density again noted. Interstitium is increased. There is no evident pneumot horax or pleural effusion. Cardiac mediastinal silhouette is stable. Aorta is dense. IMPRESSION: Findings are similar to prior exam, correlate for basilar atelectasis versus pneumonia, known interstitial lung disease and emphysema.
[2021-02-10] MEDS: TIOTROPIUM 2.5 MCG INHALER INHALATION PRN (08:09)
[2021-02-10] MEDS: ALBUTEROL HFA INHALER INHALATION PRN ×2 (08:09→20:34)
[2021-02-10] MEDS: YUPELRI INHALATION SCH (08:10)
[2021-02-10] MEDS: CEFEPIME 1 GM in SODIUM CHLORIDE 0.9% 50 ML IVPB SCH ×2 (09:28→20:35)
[2021-02-10] MEDS: allopurinoL 300 MG TAB PO SCH (09:28)
[2021-02-10] MEDS: MAGNESIUM OXIDE 400 MG TAB PO SCH ×2 (09:28→20:36)
[2021-02-10] MEDS: LORATADINE 10 MG TAB PO SCH (09:28)
[2021-02-10] MEDS: GABAPENTIN 400 MG CAP PO SCH ×3 (09:28→20:36)
[2021-02-10] MEDS: FUROSEMIDE 10 MG/ML 4 ML VIAL IV SCH (09:28)
[2021-02-10] MEDS: buPROPion XL 300 MG TAB.ER.24H PO SCH (09:28)
[2021-02-10] MEDS: PANTOPRAZOLE 40 MG TABLET PO SCH ×2 (09:28→20:37)
[2021-02-10] MEDS: POTASSIUM CHLORIDE ER 10 MEQ TAB.ER.PRT PO SCH ×2 (09:28→20:37)
--- NOTE | 2021-02-10 09:54 | P.PN ---
Subjective Progress Note Date: 02/10/21 85-year-old male patient, known to me for his history of pulmonary fibrosis, COPD, esophageal cancer in addition to various comorbidities that have been treated over the years both inpatient and outpatient. Patient was doing well. He was recently my office and he was quite stable. The patient came in to the burst department yesterday the patient was feeling weak and he reported Fever at Home and He Had Also Some Cough without Any Significant Sputum Production. No Chest Pain. No Pleurisy or Hemoptysis. No Swelling Lower Extremities. No Altered Mentation. He Was Quite concerning for That Reason He Was Brought into the Hospital for Further Evaluation. The Patient Is Also Known to Have Aortic Stenosis Being Followed up by Cardiology. In the Hospital, Chest X-Ray Showed Some Chronic Interstitial Changes Consistent with Old Fibrosis Especially in the Lung Bases in Addition to Some Count COPD. EKG Showed No Acute Ischemic Changes. at the Was at 10.2 with Hemoglobin of 13.9. BUN Was 24 with a Creatinine of 1.1. Sodium Is at Home for 3. Initial Lactic Acid Level Was at 2.9. Troponin Was 0.269. ProBNP Level Was 710. The Patient Was Started on a Combination of Rocephin and Zithromax. He Was Admitted to the Medical Floor. He Is Already Feeling Better. Less Short of Breath. He Seems to Be Getting Better over the past 24 Hours. No Altered Mentation. No Signs of Any Fluid Overload. 9 2020, the patient is feeling well. Is calm and comfortable. No issues for now. No chest pain. No shortness of breath. He remains on oxygen 2 L per minute nasal cannula. He was placed on IV cefepime. The pro-calcitonin level came back at 0.4 . I did have some troponin leak. He was also placed on IV Lasix by cardiology. No other new complaints otherwise for now. No altered mentation. No significant sputum production. He is currently receiving Lasix dose of 40 mg every 12 hours. He remains also on IV cefepime. Objective - Vital Signs Vital signs: Vital Signs Temp 97.5 F L 02/10/21 09:42 Pulse 68 02/10/21 09:42 Resp 18 02/10/21 09:42 BP 129/78 02/10/21 09:42 Pulse Ox 96 02/10/21 09:42 Intake & Output 02/09/21 02/10/2102/10/21 18:59 06:59 18:59 Intake Total 817.07 Output Total 1225 1450 Balance -407.93 -1450 Weight 76.4 kg Intake: Intake, IV Titration 179.07 Amount Heparin Sod,Pork in 0.45% 179.07 NaCl 25,000 unit In 0.45 % NaCl 1 250ml.bag @ 12 UNITS/KG/HR 9.525 mls/hr IV .Q24H [facility] Rx#: [id number] Oral 638 Output: Urine 1225 1450 Other: Voiding Method Urinal Urinal Urinal # Voids 1 1 - Exam General Appearance no diaphoresis, no respiratory distress, speech not interrupted by breaths, no dyspnea, no pallor, cachectic, appears ill HEENT no pursed lip breathing, no jugular venous distention, no mucous membrane cyanosis, no perioral cyanosis, mallampati classification: class 1, Mallampati Classification: Class 3 Chest no barrel chest, no retractions, no sternocleidomastoid muscle contractions, no supraclavicular retractions, no intercostal retractions, no prolonged expiratory wheezing, no decreased air movement, no rhonchi, no hyperinflation, (normal) adventitious sounds: rales / crackles: bilaterally: m idlung nogueira, decreased air movement (crackles in the lung bases , L.>R) Heart no right ventricular heave, no distant heart sounds, no s3 gallop, (normal) jugular vein: jugular venous distention: by 0cm, (normal) jugular vein GI bowel sounds: hyperactive (borborygmi), bowel sounds: diminished or absent Extremities no cyanosis, no clubbing, edema (trace edema in the legs) Neurologic no decreased mental status, no somnolence, no confusion (improving weakness and all of his extremities and the patient's ability to walk is also improved.) Assisstive Devices: ambulates with no assitive devices, ambulates with cane Gait and Mobility: gait WNL, full weight bearing Skin General Appearance normal, (normal) normal except as noted - Labs CBC & Chem 7: 02/09/21 06:12 02/08/21 10:06 Labs: Abnormal Lab Results - Last 24 Hours (Table) 02/09/21 02/09/21 02/09/21 Range/Units 06:12 11:43 16:51 POC Glucose (mg/dL) 193 H 72 L (75-99) mg/dL Procalcitonin 0.44 H (0.02-0.09) ng/mL 02/09/21 Range/Units 19:55 POC Glucose (mg/dL) 205 H (75-99) mg/dL Procalcitonin (0.02-0.09) ng/mL Microbiology - Last 24 Hours (Table) 02/08/21 10:06 Blood Culture - Preliminary Blood No Growth after 24 hours Assessment and Plan Plan: 1 dyspnea, chronic with acute worsening associated with some cough and low-grade fever. No clear indication for pneumonia. The patient had a chest x-ray that shows chronic interstitial changes in lung bases bilaterally consistent with fibrosis. No airspace disease or consolidation. We'll continue to follow. Clinically the patient doing much better. Troponin level is at 0.44. The patie nt is currently on IV cefepime. He is also being diuresis with IV Lasix. He feels that he is back to his baseline. 2 severe chronic obstructive pulmonary disease- the patient is currently on Yupelri and the patient is using DuoNeb nebulized treatments as needed. He is off the budesonide and the medication was discontinued because of ongoing recurrent gram-negative infections of the lungs. Note that the patient has had previous hospitalization for tracheobronchitis with sputum culture positive for stenotrophomonas maltophilia multidrug resistant, including Levaquin, ceftazidime, and Bactrim . This was cultured in the sputum on 07/29/2019, 07/23/2019, 07/18/2019, 07/14/2019. Meanwhile, last CAT scan of the chest from February 2020 showed COPD and some fibrotic changes in lung bases and the patient did not have any significant pneumonia.. The most recent sputum culture that was done during this most recent hospitalization in November 2020 showed MSSA Maria L. Currently he has no signs of any infection. I tried to put this patient on Trelegy Ellipta, however the medication was not covered 3 previous infections -bacterial infection due to Pseudomonas UTI secondary to pseudomonas much treated with ciprofloxacin and the patient has recovered from an underlying urinary tract infection. This was an infection of the current on 08/17/2019 during her most recent hospital stay. 4 methicillin resistant Staphylococcus aureus infection-the patient had a bout of staphylococcal pneumonia and septicemia during the hospitalization on 07/30/2019. This was cultured in the sputum and was counseled cultured and the blood and the patient has been adequately treated. 5 history of previous acute respiratory distress syndrome 6 chronic hypoxemic respiratory failure secondary to above. This occurred after an acute hypoxic respiratory event/ARDS. clinically improving. Oxygenation has improved and the patient does not need oxygen supplementation. The concentrator will be returned. 7 malignant tumor of esophagus post chemoradiation therapy and the patient is disease seems to be in remission for now and this was further confirmed by a follow-up CAT scan of the chest that was done on 07/13/2018. He is swallowing well. he has undergone a CAT scan of the chest and abdomen and pelvis on 02/11/2019 he showed no evidence of any disease progression. His esophageal cancer is currently in remission. the most recent CAT scan of the chest from November 2019 showed a lymph node in the suprahilar area on the right that needs to be monitored and a follow-up CAT scan was ordered to be done and March 2020.also pleased to report that the follow- up PET scan that was done on this patient on 04/27/2020 showed no evidence of any suspicious metabolic activity to suggest recurrent esophageal cancer. 8 physical deconditioning 9 aortic valve stenosis- valvular heart disease with moderate degree of aortic stenosis and an ejection fraction of 55-60%. The peak gradient across the valve was 41 mmHg no significant pulmonary hypertension. repeat echocardiogram showed severe aortic stenosis and this is based on echocardiogram that was on the 2020. The peak gradient across the valve is 85. Is also significant pulmonary hypertension with a PA pressure estimated to be around 66 mmHg. There is interval worsening in severity of aortic stenosis. Cardiology is aware and the patient is going to be considered for a T aVR procedure. 10 hypertensive disorder 11 hyperlipidemia 12 gout 13 carotid artery stenosis, post carotid endarterectomy on the right Plan Check pro calcitonin levels is 0.44 Based on previous bacteriology, cover this patient IV cefepime IV lasix 40 mg q 12 Resume home medications Monitor fever pattern There may be a component of non-STEMI treated with as cardiology to comment on the troponin elevation and evaluate this patient's valvular function knowing that he has a component of aortic stenosis we'll continue to follow Possible discharge within the next 24 hours.
--- NOTE | 2021-02-10 11:38 | P.PN ---
Subjective Progress Note Date: 02/10/21 HISTORY OF PRESENT ILLNESS: This is a 85-year-old male with a past medical history significant for hypertension, hyperlipidemia, congestive heart failure, peripheral vascular disease, carotid stenosis, aortic stenosis, and diabetes mellitus. Patient follows in the office with Dr. Albrecht. We have been asked to see the patient in consultation for elevated troponins. It is noted the patient was hospitalized in November 2020 for leukocytosis and hypotension and required vasopressors. Patient examined at the bedside. Patient states over the past few days he has had worsening shortness of breath. He reports a cough at home but denies sputum production. He also reports having a fever at home. Patient was just recently evaluated by his deep tissue massage therapist and the plan was to repeat an echocardiogram in April and if there is any progression of the aortic stenosis than the patient will be scheduled for a cardiac catheterization would be considered for possible TAVR. The patient denies any chest pain or pressure. He reports mild shortness of breath at the time of examination. Patient reports having a cardiac cath 20 years ago but states he did not require any stents to be placed. EKG reveals sinus mechanism with no signs of acute ischemia Chest xray correlate for congestive heart failure, pneumonia not excluded. There is emphysema and coronary artery disease, pre-existing interstitial lung disease noted on prior CT. Laboratory data: WBC 10.2. Hemoglobin 13.9. Platelet count 223. Sodium 140. Potassium 4.8. BUN 24. Creatinine 1.10. Lactic acid 2.9. Repeat 1.0. ProBNP 710. Troponin 0.244. Current home cardiac medications include Pravachol 80 mg daily, Midodrine 10 mg twice a day, Lasix 40 g daily, aspirin 81 mg daily Most recent echocardiogram obtained in November 2020 revealed ejection fraction greater than 70%. Mild aortic regurgitation. Severe aortic stenosis. Cannot exclude vegetation of AOV. Moderate tricuspid regurgitation. Severe pulmonary hypertension. RVSP 66.98 mmHg. 02/10/2021 Patient examined this morning at the bedside. Patient denies chest pain or pressure. Denies shortness of breath. He remains on IV lasix and antibiotics. Repeat echocardiogram reveals ejection fraction 55-60% with severe aortic stenosis PHYSICAL EXAM: VITAL SIGNS: Reviewed. GENERAL: Well-developed in no acute distress. HEENT: Head is normocephalic. Pupils are equal, round. Sclerae anicteric. Mucous membranes of the mouth are moist. Neck supple. No JVD or thyromegaly LUNGS: Respirations even and unlabored. Lungs diminished to auscultation bilaterally with minimal bibasilar crackles. HEART: Regular rate and rhythm. S1 and S2 heard. Systolic murmur noted. ABDOMEN: Soft. Nondistended. Nontender. EXTREMITIES: Normal range of motion. No clubbing or cyanosis. Peripheral pulses intact. No lower extremity edema NEUROLOGIC: Awake and alert. Oriented x 3. ASSESSMENT: Shortness of breath Fever Possible pneumonia/pneumonitis Abnormal troponins, possible non-stemi Acute on chronic diastolic heart failure Aortic stenosis Hypertension Hyperlipidemia History of carotid stenosis with recent right carotid endarterectomy Peripheral vascular disease History of esophageal cancer with radiation and chemotherapy PLAN: Continue current cardiac medications Discontinue IV Lasix Begin oral Lasix 40 mg Possible discharge home tomorrow Patient to follow-up outpatient with Dr. Albrecht for further evaluation of possible TAVR in the future Further recommendations pending patient course Nurse practitioner note has been reviewed by physician. Signing provider agrees with the documented findings, assessment, and plan of care. Objective - Vital Signs Vital signs: Vital Signs Temp 97.5 F L 02/10/21 09:42 Pulse 68 02/10/21 09:42 Resp 18 02/10/21 09:42 BP 129/78 02/10/21 09:42 Pulse Ox 96 02/10/21 09:42 Intake & Output 02/09/21 02/10/21 02/10/21 18:59 06:59 18:59 Intake Total 817.07 240 Output Total 1225 1450 Balance -407.93 -1450 240 Weight 76.4 kg Intake: Intake, IV Titration 179.07 Amount Heparin Sod,Pork in 0.45% 179.07 NaCl 25,000 unit In 0.45 % NaCl 1 250ml.bag @ 12 UNITS/KG/HR 9.525 mls/hr IV .Q24H [facility] Rx#: [id number] Oral 638 240 Output: Urine 1225 1450 Other: Voiding Method Urinal Urinal Urinal # Voids 1 1 - Labs CBC & Chem 7: 02/09/21 06:12 02/08/21 10:06 Labs: Abnormal Lab Results - Last 24 Hours (Table) 02/09/21 02/09/21 02/09/21 Range/Units 06:12 11:43 16:51 POC Glucose (mg/dL) 193 H 72 L (75-99) mg/dL Procalcitonin 0.44 H (0.02-0.09) ng/mL 02/09/21 Range/Units 19:55 POC Glucose (mg/dL) 205 H (75-99) mg/dL Procalcitonin (0.02-0.09) ng/mL Microbiology - Last 24 Hours (Table) 02/08/21 10:06 Blood Culture - Preliminary Blood No Growth after 24 hours
[2021-02-10 11:39] LABS: Glucose,Whole Blood 113 mg/dL (75-99)
[2021-02-10 16:30] LABS: Glucose,Whole Blood 232 mg/dL (75-99)
[2021-02-10 20:04] LABS: Glucose,Whole Blood 140 mg/dL (75-99)
[2021-02-10] MEDS: PRAVASTATIN SODIUM 80 MG TAB PO SCH (20:37)
[2021-02-10] MEDS: ZOLPIDEM 5 MG TAB PO SCH (20:37)
[2021-02-10] MEDS: INSULIN DETEMIR (LEVEMIR) 100 UNIT/ML SYR SQ SCH (20:46)
[2021-02-11] MEDS: MIDODRINE 5 MG TAB PO SCH ×2 (06:32→17:14)
[2021-02-11 07:02] LABS: Glucose,Whole Blood 90 mg/dL (75-99)
[2021-02-11] MEDS: ALBUTEROL HFA INHALER INHALATION PRN (07:51)
[2021-02-11] MEDS: TIOTROPIUM 2.5 MCG INHALER INHALATION PRN (07:51)
[2021-02-11] MEDS: INSULIN ASPART (NovoLOG) 100 UNIT/ML VIAL SQ SCH ×7 (08:21→20:26)
[2021-02-11] MEDS ORDERED: ONDANSETRON 4 MG/2 ML VIAL IVP STA (08:38)
[2021-02-11 08:43] LABS: Glucose,Whole Blood 113 mg/dL (75-99)
[2021-02-11] MEDS ORDERED: SODIUM CHLORIDE 0.9% 500 ML 250 ML IV ONE (08:44)
[2021-02-11 09:04] LABS: HCT 46.5 % (39.0-53.0); HGB 14.7 gm/dL (13.0-17.5); MCH 28.9 pg (25.0-35.0); MCHC 31.6 g/dL (31.0-37.0); MCV 91.5 fL (80.0-100.0); RBC 5.08 m/uL (4.30-5.90); WBC 8.8 k/uL (3.8-10.6)
[2021-02-11 09:05] LABS: Basophils % (A) 0 %; Eosinophils # (A) 0.5 k/uL (0-0.7); Eosinophils % (A) 6 %; Hypochromasia Moderate; Lymphocytes # (A) 1.1 k/uL (1.0-4.8); Lymphocytes % (A) 12 %; Mean Platelet Volume 8.3; Monocytes # (A) 0.4 k/uL (0-1.0); Monocytes % (A) 5 %; Neutrophils # (A) 6.6 k/uL (1.3-7.7); Neutrophils % (A) 75 %; Platelet Count 224 k/uL (150-450); RDW 15.9 % (11.5-15.5)
--- NOTE | 2021-02-11 09:09 | P.EN ---
I responded to a CODE BLUE called by nursing staff when patient was getting off of the commode he became unresponsive and nursing staff were unable to palpate a pulse. Patient was transferred to bed and chest compression started immediately. After 5 compressions, patient's woke up and he was very nauseated and started vomiting. At the time I arrived to the room, patient was seated in bed retching with small amount of vomitus in the pocket. coloring room man showed a lot of artifact during the episode. Vital signs checked and blood pressure was 124/79 with a heart rate of 78. Patient was satting 95% on 2 L of oxygen by nasal cannula. He denies any chest pain to me. I ordered a 12-lead EKG, a portable chest x-ray, repeat troponin, CBC, BMP, and magnesium level. Apparently patient was admitted to the hospital with progressive dyspnea and suspected pneumonia. He had elevated troponin on presentation that was thought to be non-thrombotic troponin leak. Cardiology nurse practitioner was in the room during the code and will notify her attending. Patient stabilized at this time. Overall prognosis guarded. Advised nursing staff to notify attending physician.
--- NOTE | 2021-02-11 09:11 | XR ---
EXAMINATION TYPE: XR chest 1V portable DATE OF EXAM: 02/11/2021 COMPARISON: 02/10/2021 HISTORY: Shortness of breath TECHNIQUE: Single view of the chest was submitted. FINDINGS: Scattered senescent parenchymal changes noted. Hyperinflation compatible with COPD. Patchy basilar infiltrates persist although are much improved relative to the prior study. Heart size is stable. Mediastinal structures are stable and grossly unremarkable. No evidence for hilar prominence. Degenerative changes dorsal spine. IMPRESSION: 1. Patchy basilar infiltrates persist although are much improved relative to the prior study.
[2021-02-11 09:29] LABS: Calcium 9.5 mg/dL (8.4-10.2); Magnesium 2.5 mg/dL (1.6-2.3); Potassium 4.3 mmol/L (3.5-5.1)
[2021-02-11] MEDS: MAGNESIUM OXIDE 400 MG TAB PO SCH ×2 (09:37→20:26)
[2021-02-11] MEDS: allopurinoL 300 MG TAB PO SCH (09:37)
[2021-02-11] MEDS: GABAPENTIN 400 MG CAP PO SCH ×3 (09:37→20:25)
[2021-02-11] MEDS: buPROPion XL 300 MG TAB.ER.24H PO SCH (09:37)
[2021-02-11] MEDS: LORATADINE 10 MG TAB PO SCH (09:37)
[2021-02-11] MEDS: PANTOPRAZOLE 40 MG TABLET PO SCH ×2 (09:37→20:26)
[2021-02-11] MEDS: FUROSEMIDE 40 MG TAB PO SCH (09:37)
[2021-02-11] MEDS: POTASSIUM CHLORIDE ER 10 MEQ TAB.ER.PRT PO SCH ×2 (09:37→20:26)
[2021-02-11] MEDS: CEFEPIME 1 GM in SODIUM CHLORIDE 0.9% 50 ML IVPB SCH ×2 (09:37→20:33)
--- NOTE | 2021-02-11 11:16 | P.PN ---
Subjective Progress Note Date: 02/09/21 Principal diagnosis: Acute non-ST elevated WI with elevated troponin level. Acute on chronic CHF with diastolic dysfunction Patient is a 85-year-old male with a known history of esophageal cancer status post radiation, radiation pneumonitis, hypertension, hyperlipidemia, diabetes type 2 insulin-dependent, COPD, history of cardiac catheterization, hearing disorder/deafness, memory impairment, Hernandez's esophagus, left carotid artery 100% stenosis and right carotid surgery in October 2020 and other multiple medical problems presents to ER with complaints of shortness of breath for the past 3 days. Also has cough without any sputum production. Denies any complaints of chest pain. Since yesterday patient became more dyspneic. Patient states that he also had a fall. Denies any complaints of pain. No dysuria or hematuria. Denies any leg swelling. According to his patient had fever at around 100 this morning. Patientadmitted to hospital with similar symptoms at around 12/16/2020 Chest x-ray showed correlate for CHF., Pneumonia not excluded. There is emphysema and coronary artery disease clinically stable interstitial lung disease noted on prior CT. EKG showed normal sinus rhythm Admission blood pressure 114/70 pulse is 9 respiration 24 and pulse ox is 93% on room air Laboratory data showed WBC 10.2 hemoglobin 13.9 platelets 223 Sodium 140 potassium 4.8 chloride 105 bicarb is 21 BUN 24 and creatinine 1.1 Lactic acid 2.9 Liver enzymes are not elevated Troponin 0 0.244, 0.285 proBNP 710 Urinalysis is negative for infection Patient does have a history of multiple falls and unsteadiness in gait due to diabetic neuropathy. Patient also has chronic lumbar spondylosis with unsteady gait/falls. Patient had FATOUMATA on 08/14/2020 showed moderate aortic stenosis. Possible bicuspid valve, mild aortic and mitral regurgitation preserved LV function. 02/09/2021 Patient is currently sitting in chair. Shortness of breath is better compared to yesterday. No commerce of chest pain. Patient has been afebrile. Continued on antibiotic and off ceftriaxone and azithromycin. Next and patient is on IV Lasix. Cardiology has seen the patient and discontinued heparin drip. 2-D echo that was ordered. Patient has been tolerating oral diet. No complaints of nausea vomiting or abdominal pain or diarrhea. Current medications reviewed. Objective - Vital Signs Vital signs: Vital Signs Temp 97.6 F 02/09/21 20:00 Pulse 97 02/09/21 20:00 Resp 16 02/09/21 20:00 BP 153/72 02/09/21 20:00 Pulse Ox 95 02/09/21 20:00 Intake & Output 02/09/21 02/09/21 02/10/21 06:59 18:59 06:59 Intake Total 817.07 Output Total 1350 1225 Balance -1350 -407.93 Weight 80.5 kg Intake: Intake, IV Titration 179.07 Amount Heparin Sod,Pork in 0.45% 179.07 NaCl 25,000 unit In 0.45 % NaCl 1 250ml.bag @ 12 UNITS/KG/HR 9.525 mls/hr IV .Q24H [facility] Rx#: [id number] Oral 638 Output: Urine 1350 1225 Other: Voiding Method Urinal Urinal Urinal # Voids 1 1 - Exam PHYSICAL EXAMINATION: Patient is lying in the bed comfortably, no acute distress, awake alert and oriented.Poor historian.. HEENT: Normocephalic. Neck is supple. Pupils reactive. Nostrils clear. Oral cavity is moist. Neck reveals no JVD, carotid bruits, or thyromegaly. CHEST EXAMINATION: Trachea is central. Symmetrical expansion. Bibasilar air entry is improved.. No wheezing or rhonchi. Nonlabored breathing.n. CARDIAC: Normal S1, S2 with no gallops. No murmurs ABDOMEN: Soft. Bowel sounds normal. No organomegaly. No abdominal bruits. Extremities: trace edema. No clubbing or cyanosis Neurologically awake, alert, oriented x3 with well-coordinated movements. No focal deficits noted Skin: No rash or skin lesions. Psychiatric: Coperative. Nonsuicidal Musculoskeletal: No joint swelling or deformity. Normal range of motion. - Labs CBC & Chem 7: 02/11/21 08:50 02/11/21 08:50 Labs: Abnormal Lab Results - Last 24 Hours (Table) 02/09/21 02/09/21 02/09/21 Range/Units 06:09 06:12 11:43 POC Glucose (mg/dL) 110 H 193 H (75-99) mg/dL Procalcitonin 0.44 H (0.02-0.09) ng/mL 02/09/21 02/09/21 Range/Units 16:51 19:55 POC Glucose (mg/dL) 72 L 205 H (75-99) mg/dL Procalcitonin (0.02-0.09) ng/mL Microbiology - Last 24 Hours (Table) 02/08/21 10:06 Blood Culture - Preliminary Blood No Growth after 24 hours Assessment and Plan Assessment: Acute non-ST elevated WI with elevated troponin level. Acute on chronic CHF with diastolic dysfunction Possible pneumonia/pneumonitis Moderate aortic valve stenosis/bicuspid valve History of carotid stenosis with right carotid endarterectomy and left 100% stenosis History of multiple falls due to diabetic neuropathy Hypertension Hyperlipidemia Peripheral vascular disease Esophageal cancer status post radiation Radiation pneumonitis history Chronic lumbar spondylosis Diabetes type 2 insulin-dependent GERD Hearing disorder/deafness Osteoarthritis Hiatal hernia DVT prophylaxis with heparin subcu Plan: Patient will be continued on telemetry monitoring. Continue with IV Lasix 40 mg every 12 and monitor renal function. Serial EKG and troponin x3. Heparin drip has been discontinued. 2-D echocardiogram was ordered.. Continue with empiric antibiotics in the form of azithromycin and ceftriaxone for possible pneumonia. Continue with insulin regimen and titrate insulin dose. GI and DVT prophylaxis. Continue to follow closely. Prognosis is guarded with multiple medical problems and comorbid conditions. Time with Patient: Greater than 30
--- NOTE | 2021-02-11 11:21 | P.PN ---
Subjective Progress Note Date: 02/10/21 Principal diagnosis: Acute non-ST elevated ID with elevated troponin level. Acute on chronic CHF with diastolic dysfunction Patient is a 85-year-old male with a known history of esophageal cancer status post radiation, radiation pneumonitis, hypertension, hyperlipidemia, diabetes type 2 insulin-dependent, COPD, history of cardiac catheterization, hearing disorder/deafness, memory impairment, Hernandez's esophagus, left carotid artery 100% stenosis and right carotid surgery in October 2020 and other multiple medical problems presents to ER with complaints of shortness of breath for the past 3 days. Also has cough without any sputum production. Denies any complaints of chest pain. Since yesterday patient became more dyspneic. Patient states that he also had a fall. Denies any complaints of pain. No dysuria or hematuria. Denies any leg swelling. According to his patient had fever at around 100 this morning. Patientadmitted to hospital with similar symptoms at around 12/16/2020 Chest x-ray showed correlate for CHF., Pneumonia not excluded. There is emphysema and coronary artery disease clinically stable interstitial lung disease noted on prior CT. EKG showed normal sinus rhythm Admission blood pressure 114/70 pulse is 9 respiration 24 and pulse ox is 93% on room air Laboratory data showed WBC 10.2 hemoglobin 13.9 platelets 223 Sodium 140 potassium 4.8 chloride 105 bicarb is 21 BUN 24 and creatinine 1.1 Lactic acid 2.9 Liver enzymes are not elevated Troponin 0 0.244, 0.285 proBNP 710 Urinalysis is negative for infection Patient does have a history of multiple falls and unsteadiness in gait due to diabetic neuropathy. Patient also has chronic lumbar spondylosis with unsteady gait/falls. Patient had FATOUMATA on 08/14/2020 showed moderate aortic stenosis. Possible bicuspid valve, mild aortic and mitral regurgitation preserved LV function. 02/09/2021 Patient is currently sitting in chair. Shortness of breath is better compared to yesterday. No complaints of chest pain. Patient has been afebrile. Continued on antibiotic and off ceftriaxone and azithromycin. Next and patient is on IV Lasix. Cardiology has seen the patient and discontinued heparin drip. 2-D echo that was ordered. Patient has been tolerating oral diet. No complaints of nausea vomiting or abdominal pain or diarrhea. 02/10/2021 Patient is currently sitting in the chair comfortably. Breathing status is much better. Currently requiring oxygen at 2 L by nasal cannula. Patient was started on antibiotics, cefepime. Will placed on level is 0.4. Next and patient is also on IV Lasix will be changed to by mouth. Cardiology and pulmonary is on board. Afebrile. No nausea vomiting or abdominal pain or diarrhea. Current medications reviewed. Objective - Vital Signs Vital signs: Vital Signs Temp 97.7 F 02/10/21 11:00 Pulse 71 02/10/21 11:00 Resp 18 02/10/21 11:00 BP 126/72 02/10/21 11:00 Pulse Ox 97 02/10/21 11:00 Intake & Output 02/09/21 02/10/21 02/10/21 18:59 06:59 18:59 Intake Total 817.07 470 Output Total 1225 1450 400 Balance -407.93 -1450 70 Weight 76.4 kg Intake: Intake, IV Titration 179.07 50 Amount Cefepime 1 gm In Sodium 50 Chloride 0.9% 50 ml @ 12. 5 mls/hr IVPB Q12HR [facility] Rx#:[id number] Heparin Sod,Pork in 0.45% 179.07 NaCl 25,000 unit In 0.45 % NaCl 1 250ml.bag @ 12 UNITS/KG/HR 9.525 mls/hr IV .Q24H [facility] Rx#: [id number] Oral 638 420 Output: Urine 1225 1450 400 Other: Voiding Method Urinal Urinal Urinal # Voids 1 1 1 - Exam PHYSICAL EXAMINATION: Patient is lying in the bed comfortably, no acute distress, awake alert and oriented.Poor historian.. HEENT: Normocephalic. Neck is supple. Pupils reactive. Nostrils clear. Oral cavity is moist. Neck reveals no JVD, carotid bruits, or thyromegaly. CHEST EXAMINATION: Trachea is central. Symmetrical expansion. Bibasilar air entry is improved.. No wheezing or rhonchi. Nonlabored breathing.n. CARDIAC: Normal S1, S2 with no gallops. No murmurs ABDOMEN: Soft. Bowel sounds normal. No organomegaly. No abdominal bruits. Extremities: trace edema. No clubbing or cyanosis Neurologically awake, alert, oriented x3 with well-coordinated movements. No focal deficits noted Skin: No rash or skin lesions. Psychiatric: Coperative. Nonsuicidal Musculoskeletal: No joint swelling or deformity. Normal range of motion. - Labs CBC & Chem 7: 02/11/21 08:50 02/11/21 08:50 Labs: Abnormal Lab Results - Last 24 Hours (Table) 02/09/21 02/09/21 02/09/21 Range/Units 06:12 16:51 19:55 POC Glucose (mg/dL) 72 L 205 H (75-99) mg/dL Procalcitonin 0.44 H (0.02-0.09) ng/mL 02/10/21 Range/Units 11:38 POC Glucose (mg/dL) 113 H (75-99) mg/dL Procalcitonin (0.02-0.09) ng/mL Microbiology - Last 24 Hours (Table) 02/08/21 10:06 Blood Culture - Preliminary Blood No Growth after 48 hours Assessment and Plan Assessment: Acute on chronic CHF with diastolic dysfunction Shortness of breath likely due to interstitial changes lung. Possible pneumonia/pneumonitis. Patient Low-grade fever and elevated potassium level. Acute non-ST elevated ID with elevated troponin level. Severe COPD History of urinary tract infection with Pseudomonas. History of ARDS and chronic hypoxemic respiratory failure. Moderate aortic valve stenosis/bicuspid valve History of carotid stenosis with right carotid endarterectomy and left 100% stenosis History of multiple falls due to diabetic neuropathy Hypertension Hyperlipidemia Peripheral vascular disease Esophageal cancer status post radiation Radiation pneumonitis history Chronic lumbar spondylosis Diabetes type 2 insulin-dependent GERD Hearing disorder/deafness Osteoarthritis Hiatal hernia DVT prophylaxis with heparin subcu Plan: Patient will be continued on telemetry monitoring. Continue with IV Lasix 40 mg every 12 and monitor renal function. Changed to by mouth. Serial EKG and troponin x3. Heparin drip has been discontinued. 2-D echocardiogram was ordered.. Patient was started on antibiotics in the form of cefepime. History of Pseudomonas cultures in the past.. Continue with DuoNeb's. Continue the home medications Continue with insulin regimen and titrate insulin dose. GI and DVT prophylaxis. Continue to follow closely. Prognosis is guarded with multiple medical problems and comorbid conditions. Time with Patient: Greater than 30
[2021-02-11 12:01] LABS: Glucose,Whole Blood 159 mg/dL (75-99)
--- NOTE | 2021-02-11 12:06 | P.PN ---
Subjective This is a 85-year-old male with a past medical history significant for hypertension, hyperlipidemia, congestive heart failure, peripheral vascular di sease, carotid stenosis, aortic stenosis, and diabetes mellitus. Patient follows in the office with Dr. Albrecht. We have been asked to see the patient in consultation for elevated troponins. It is noted the patient was hospitalized in November 2020 for leukocytosis and hypotension and required vasopressors. Patient examined at the bedside. Patient states over the past few days he has had worsening shortness of breath. He reports a cough at home but denies sputum production. He also reports having a fever at home. Patient was just recently evaluated by his housekeeping worker and the plan was to repeat an echocardiogram in April and if there is any progression of the aortic stenosis than the patient will be scheduled for a cardiac catheterization would be considered for possible TAVR. The patient denies any chest pain or pressure. He reports mild shortness of breath at the time of examination. Patient reports having a cardiac catheterization 20 years ago but states he did not require any stents to be placed. EKG reveals sinus mechanism with no signs of acute ischemia Chest xray correlate for congestive heart failure, pneumonia not excluded. There is emphysema and coronary artery disease, pre-existing interstitial lung disease noted on prior CT. Most recent echocardiogram obtained in November 2020 revealed ejection fraction greater than 70%. Mild aortic regurgitation. Severe aortic stenosis. Cannot exclude vegetation of AOV. Moderate tricuspid regurgitation. Severe pulmonary hypertension. RVSP 66.98 mmHg. Limited Echocardiogram on 02/09 revealed ejection fraction 55-60% with severe aortic stenosis with a peak/mean gradient 64 mmHg/38 mmHg. 02/11/2021 This morning around 0830, patient was walking from the bathroom and became unresponsive, Code Blue was called, RN sternal rubbed patient with no response,RN could not feel a pulse and started compressions, after 4-5 compressions, patient woke up, started grunting, regained consciousness and was alert. He was nausea and had an episode of emesis. Telemetry reviewed, no acute rhythm noted, patient did have a lot of artifact. Vital Signs after were stable. Blood pressure 124/79, heart rate 78, SpO2 95% on 2 L. EKG revealed sinus rhythm HR 60s, no significant ST-T wave abnormalities. Chest Xray completed which revealed patchy basilar infiltrates, improved from prior study on 02/10. Laboratory data reviewed WBC 8.8, hemoglobin 14.7, platelets 224, sodium 142, potassium 4.3, BUN 25, serum creatinine 1.1, troponin 0.07. Patient seen and examined at bedside he denies chest pain, shortness of breath, lightheadedness or dizziness. He denies any issues overnight. He does not recall the episode that occurred this morning. PHYSICAL EXAM: VITAL SIGNS: Reviewed. GENERAL: Well-developed in no acute distress. HEENT: Neck supple. No JVD or thyromegaly LUNGS: Respirations even and unlabored. Lungs diminished to auscultation bilaterally with minimal bibasilar crackles. HEART: Regular rate and rhythm. S1 and S2 heard. Systolic murmur noted. ABDOMEN: Soft. Nondistended. Nontender. EXTREMITIES: Normal range of motion. No clubbing or cyanosis. Peripheral pulses intact. No lower extremity edema NEUROLOGIC: Awake and alert. Oriented x 3. ASSESSMENT: Shortness of breath Fever Possible pneumonia/pneumonitis Episode of unresponsive on 02/11/21- Possibly vasovagal patient regained consciouness after 4 compressions, vital signs stable, no acute EKG changes Abnormal troponins, possible non-stemi Acute on chronic diastolic heart failure Severe Aortic stenosis Hypertension Hyperlipidemia History of carotid stenosis with recent right carotid endarterectomy Peripheral vascular disease History of esophageal cancer with radiation and chemotherapy PLAN: Continue current cardiac medications Continue to monitor patient on telemetry Further recommendations pending patient course Nurse practitioner note has been reviewed by physician. Signing provider agrees with the documented findings, assessment, and plan of care. Objective - Vital Signs Vital signs: Vital Signs Temp 97.4 F L 02/11/21 03:05 Pulse 78 02/11/21 03:05 Resp 17 02/11/21 03:05 BP 130/70 02/11/21 03:05 Pulse Ox 98 02/11/21 07:52 Intake & Output 02/10/21 02/11/21 02/11/21 18:59 06:59 18:59 Intake Total 710 Output Total 1100 200 Balance -390 -200 Weight 77 kg Intake: Intake, IV Titration 50 Amount Cefepime 1 gm In Sodium 50 Chloride 0.9% 50 ml @ 12. 5 mls/hr IVPB Q12HR [facility] Rx#:[id number] Oral 660 Output: Urine 1100 200 Other: Voiding Method Urinal Urinal # Voids 1 - Labs CBC & Chem 7: 02/11/21 08:50 02/11/21 08:50 Labs: Abnormal Lab Results - Last 24 Hours (Table) 02/10/21 02/10/21 02/10/21 Range/Units 11:38 16:27 20:02 RDW (11.5-15.5) % POC Glucose (mg/dL) 113 H 232 H 140 H (75-99) mg/dL 02/11/21 02/11/21 Range/Units 08:36 08:50 RDW 15.9 H (11.5-15.5) % POC Glucose (mg/dL) 113 H (75-99) mg/dL Microbiology - Last 24 Hours (Table) 02/08/21 10:06 Blood Culture - Preliminary Blood No Growth after 48 hours
--- NOTE | 2021-02-11 13:05 | P.PN ---
Subjective Progress Note Date: 02/11/21 Principal diagnosis: 85-year-old male patient, known to me for his history of pulmonary fibrosis, COPD, esophageal cancer in addition to various comorbidities that have been treated over the years both inpatient and outpatient. Patient was doing well. He was recently my office and he was quite stable. The patient came in to the burst department yesterday the patient was feeling weak and he reported Fever at Home and He Had Also Some Cough without Any Significant Sputum Production. No Chest Pain. No Pleurisy or Hemoptysis. No Swelling Lower Extremities. No Altered Mentation. He Was Quite concerning for That Reason He Was Brought into the Hospital for Further Evaluation. The Patient Is Also Known to Have Aortic Stenosis Being Followed up by Cardiology. In the Hospital, Chest X-Ray Showed Some Chronic Interstitial Changes Consistent with Old Fibrosis Especially in the Lung Bases in Addition to Some Count COPD. EKG Showed No Acute Ischemic Changes. at the Was at 10.2 with Hemoglobin of 13.9. BUN Was 24 with a Creatinine of 1.1. Sodium Is at Home for 3. Initial Lactic Acid Level Was at 2.9. Troponin Was 0.269. ProBNP Level Was 710. The Patient Was Started on a Combination of Rocephin and Zithromax. He Was Admitted to the Medical Floor. He Is Already Feeling Better. Less Short of Breath. He Seems to Be Getting Better over the past 24 Hours. No Altered Mentation. No Signs of Any Fluid Overload. 9 2020, the patient is feeling well. Is calm and comfortable. No issues for now. No chest pain. No shortness of breath. He remains on oxygen 2 L per minute nasal cannula. He was placed on IV cefepime. The pro-calcitonin level came back at 0.4 . I did have some troponin leak. He was also placed on IV Lasix by cardiology. No other new complaints otherwise for now. No altered mentation. No significant sputum production. He is currently receiving Lasix dose of 40 mg every 12 hours. He remains also on IV cefepime. On 02/11/2021 patient seen in follow-up. This morning and was walking to the bathroom, when he became unresponsive, and initially staff was unable to palpate a pulse. Patient was transferred to the bed, and chest compressions were started immediately, after about 5 compressions patient woke up and he was very nauseated and started vomiting. monitoring coordinator showed a lot of artifact during the episode, vital signs were checked and blood pressure was 124/79 with a heart rate of 78, patient's O2 saturations liters were 95%. He denied any chest pain. Twelve-lead EKG, chest x-ray, troponin and CBC and BMP were ordered. EKG showed sinus rhythm in the 60s, no significant ST or T-wave abnormalities. Chest x-ray was completed showing patchy basilar infiltrates, improved from prior study. Blood work showed normal white count of 8.8, hemoglobin of 14.7, sodium is 142, potassium is 4.7, B1 is 25, creatinine was 1.1, troponin was 0.07. Currently patient is resting comfortably in bed, he is awake and alert, oriented 3, breathing comfortably, he is on 2 L of oxygen his pulse ox is 97%. Denies any specific complaints. Objective - Vital Signs Vital signs: Vital Signs Temp 97.9 F 02/11/21 11:43 Pulse 69 02/11/21 11:43 Resp 18 02/11/21 11:43 BP 131/74 02/11/21 11:43 Pulse Ox 97 02/11/21 11:43 Intake & Output 02/10/21 02/11/21 02/11/21 18:59 06:59 18:59 Intake Total 710 490 Output Total 1100 200 300 Balance -390 -200 190 Weight 77 kg Intake: Intake, IV Titration 50 250 Amount Cefepime 1 gm In Sodium 50 Chloride 0.9% 50 ml @ 12. 5 mls/hr IVPB Q12HR [facility] Rx#:[id number] Sodium Chloride 0.9% 500 250 ml 250 ml @ 999 mls/hr IV .Q16M ONE Rx#:[id number] Oral 660 240 Output: Urine 1100 200 300 Other: Voiding Method Urinal Urinal Urinal # Voids 1 1 - Exam GENERAL EXAM: Alert, pleasant, 85-year-old white male, 2 L of oxygen a pulse ox of 97%, resting in bed comfortable in no apparent distress. HEAD: Normocephalic/atraumatic. EYES: Normal reaction of pupils, equal size. Conjunctiva pink, sclera white. NOSE: Clear with pink turbinates. THROAT: No erythema or exudates. NECK: No masses, no JVD, no thyroid enlargement, no adenopathy. CHEST: No chest wall deformity. Symmetrical expansion. LUNGS: Equal air entry with diminished breath sounds at the bases CVS: Regular rate and rhythm, normal S1 and S2, no gallops, no murmurs, no rubs ABDOMEN: Soft, nontender. No hepatosplenomegaly, normal bowel sounds, no guarding or rigidity. EXTREMITIES: No clubbing, no edema, no cyanosis, 2+ pulses and upper and lower extremities. MUSCULOSKELETAL: Muscle strength and tone normal. SPINE: No scoliosis or deformity SKIN: No rashes CENTRAL NERVOUS SYSTEM: Alert and oriented -3. No focal deficits, tone is normal in all 4 extremities. PSYCHIATRIC: Alert and oriented -3. Appropriate affect. Intact judgment and insight. - Labs CBC & Chem 7: 02/11/21 08:50 02/11/21 08:50 Labs: Abnormal Lab Results - Last 24 Hours (Table) 02/10/21 02/10/21 02/11/21 Range/Units 16:27 20:02 08:36 RDW (11.5-15.5) % Carbon Dioxide (22-30) mmol/L BUN (9-20) mg/dL Glucose (74-99) mg/dL POC Glucose (mg/dL) 232 H 140 H 113 H (75-99) mg/dL Magnesium (1.6-2.3) mg/dL Troponin I (0.000-0.034) ng/mL 02/11/21 02/11/21 02/11/21 Range/Units 08:50 08:50 08:50 RDW 15.9 H (11.5-15.5) % Carbon Dioxide 20 L (22-30) mmol/L BUN 25 H (9-20) mg/dL Glucose 112 H (74-99) mg/dL POC Glucose (mg/dL) (75-99) mg/dL Magnesium 2.5 H (1.6-2.3) mg/dL Troponin I 0.070 H* (0.000-0.034) ng/mL 02/11/21 Range/Units 11:56 RDW (11.5-15.5) % Carbon Dioxide (22-30) mmol/L BUN (9-20) mg/dL Glucose (74-99) mg/dL POC Glucose (mg/dL) 159 H (75-99) mg/dL Magnesium (1.6-2.3) mg/dL Troponin I (0.000-0.034) ng/mL Microbiology - Last 24 Hours (Table) 02/08/21 10:06 Blood Culture - Preliminary Blood No Growth after 72 hours Assessment and Plan Plan: Assessment: #1. Dyspnea, chronic, with acute worsening associated with some cough and low- grade fever, no clear indication for pneumonia. She had a chest x-ray that showed chronic interstitial changes in the lung bases bilaterally consistent with pulmonary fibrosis. No focal airspace disease or consolidation. #2. Severe COPD, patient is maintained on a combination of Yupelri and DuoNeb. Patient is currently off budesonide because of ongoing recurrent gram-negative infections in the lungs. 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 #3. Previous history of pseudomonal urinary tract infection #4. History of MRSA pneumonia #5. History of previous episode of acute respiratory distress syndrome #6. Chronic hypoxic respiratory failure #7. History of malignant tumor of the esophagus, status post chemoradiation therapy and the patient seems to be in remission for now #8. Physical deconditioning #9. Aortic valve stenosis, severe with peak gradient across the valve of 85, and there is significant pulmonary hypertension with PA pressure of 66 mmHg #10. Hypertensive disorder #11. Hyperlipidemia #12. Gout #13. Carotid artery stenosis, post carotid endarterectomy on the right Plan: Continue current medical treatment Pro-calcitonin level was noted and was elevated 0.44 Follow-up chest x-ray has been reviewed showing improvement in the appearance of patchy basilar infiltrates We'll continue with antibiotics, continue with nebulized bronchodilators Vital signs are stable patient was restarted on home dose Lasix Follow-up labs tomorrow, follow up pro-calcitonin We'll continue to follow I performed a history & physical examination of the patient and discussed their management with my nurse practitioner, Shae Freeman. I reviewed the nurse practitioner's note and agree with the documented findings and plan of care. Lung sounds are positive for diminished breath sounds throughout the lung field s. The findings and the impression was discussed with the patient. I attest to the documentation by the nurse practitioner. Time with Patient: Less than 30
[2021-02-11] MEDS ORDERED: bisacodyL 5 MG TABLET.DR PO PRN (16:09)
[2021-02-11 16:46] LABS: Glucose,Whole Blood 222 mg/dL (75-99)
[2021-02-11 20:19] LABS: Glucose,Whole Blood 183 mg/dL (75-99)
[2021-02-11] MEDS: PRAVASTATIN SODIUM 80 MG TAB PO SCH (20:26)
[2021-02-11] MEDS: ZOLPIDEM 5 MG TAB PO SCH (20:27)
[2021-02-11] MEDS: INSULIN DETEMIR (LEVEMIR) 100 UNIT/ML SYR SQ SCH (20:33)
[2021-02-12] MEDS: MIDODRINE 5 MG TAB PO SCH ×2 (06:42→17:14)
[2021-02-12 06:58] LABS: Glucose,Whole Blood 103 mg/dL (75-99)
[2021-02-12] MEDS: INSULIN ASPART (NovoLOG) 100 UNIT/ML VIAL SQ SCH ×7 (06:58→21:43)
[2021-02-12] MEDS ORDERED: bisacodyL 10 MG SUPP RECTAL PRN (08:21)
[2021-02-12] MEDS: PANTOPRAZOLE 40 MG TABLET PO SCH ×2 (08:35→21:42)
[2021-02-12] MEDS: allopurinoL 300 MG TAB PO SCH (08:35)
[2021-02-12] MEDS: FUROSEMIDE 40 MG TAB PO SCH (08:35)
[2021-02-12] MEDS: GABAPENTIN 400 MG CAP PO SCH ×3 (08:35→21:43)
[2021-02-12] MEDS: buPROPion XL 300 MG TAB.ER.24H PO SCH (08:35)
[2021-02-12] MEDS: LORATADINE 10 MG TAB PO SCH (08:36)
[2021-02-12] MEDS: POTASSIUM CHLORIDE ER 10 MEQ TAB.ER.PRT PO SCH ×2 (08:36→21:42)
[2021-02-12] MEDS: MAGNESIUM OXIDE 400 MG TAB PO SCH ×2 (08:36→21:42)
[2021-02-12] MEDS: CEFEPIME 1 GM in SODIUM CHLORIDE 0.9% 50 ML IVPB SCH ×2 (08:36→21:43)
[2021-02-12 09:02] LABS: Potassium 4.9 mmol/L (3.5-5.1)
--- NOTE | 2021-02-12 10:25 | P.PN ---
Subjective Progress Note Date: 02/11/21 Principal diagnosis: Acute non-ST elevated [place] with elevated troponin level. Acute on chronic CHF with diastolic dysfunction Patient is a 85-year-old male with a known history of esophageal cancer status post radiation, radiation pneumonitis, hypertension, hyperlipidemia, diabetes type 2 insulin-dependent, COPD, history of cardiac catheterization, hearing disorder/deafness, memory impairment, Hernandez's esophagus, left carotid artery 100% stenosis and right carotid surgery in October 2020 and other multiple medical problems presents to ER with complaints of shortness of breath for the past 3 days. Also has cough without any sputum production. Denies any complaints of chest pain. Since yesterday patient became more dyspneic. Patient states that he also had a fall. Denies any complaints of pain. No dysuria or hematuria. Denies any leg swelling. According to his patient had fever at around 100 this morning. Patientadmitted to hospital with similar symptoms at around 12/16/2020 Chest x-ray showed correlate for CHF., Pneumonia not excluded. There is emphysema and coronary artery disease clinically stable interstitial lung disease noted on prior CT. EKG showed normal sinus rhythm Admission blood pressure 114/70 pulse is 9 respiration 24 and pulse ox is 93% on room air Laboratory data showed WBC 10.2 hemoglobin 13.9 platelets 223 Sodium 140 potassium 4.8 chloride 105 bicarb is 21 BUN 24 and creatinine 1.1 Lactic acid 2.9 Liver enzymes are not elevated Troponin 0 0.244, 0.285 proBNP 710 Urinalysis is negative for infection Patient does have a history of multiple falls and unsteadiness in gait due to diabetic neuropathy. Patient also has chronic lumbar spondylosis with unsteady gait/falls. Patient had FATOUMATA on 08/14/2020 showed moderate aortic stenosis. Possible bicuspid valve, mild aortic and mitral regurgitation preserved LV function. 02/09/2021 Patient is currently sitting in chair. Shortness of breath is better compared to yesterday. No complaints of chest pain. Patient has been afebrile. Continued on antibiotic and off ceftriaxone and azithromycin. Next and patient is on IV Lasix. Cardiology has seen the patient and discontinued heparin drip. 2-D echo that was ordered. Patient has been tolerating oral diet. No complaints of nausea vomiting or abdominal pain or diarrhea. 02/10/2021 Patient is currently sitting in the chair comfortably. Breathing status is much better. Currently requiring oxygen at 2 L by nasal cannula. Patient was started on antibiotics, cefepime. Will placed on level is 0.4. Next and patient is also on IV Lasix will be changed to by mouth. Cardiology and pulmonary is on board. Afebrile. No nausea vomiting or abdominal pain or diarrhea. 02/11/2021 Patient is currently lying in the bed. This morning patient got up from bed and trying to go to the bathroom. Certainly she became very weak and did not to the floor and unresponsive for a few seconds and unable to palpate a pulse. Marcello was able to hold him. Patient was transferred to the bed and chest compressions were started. Patient woke up after 5 compressions. [place] very nauseated and started vomiting. Currently blood pressure is stable. Orthostatic vitals were checked which were positive. Lasix was changed to 40 minutes daily and also patient is currently on Midodrin twice daily. EKG showed normal sinus rhythm with no ST-T abnormalities. Chest x-ray showed patchy bibasilar infiltrates improved from prior study. Laboratory data showed BUN 25-1.1 bicarb 20 troponin 0.070 and a pro-calcitonin level is 0.31 Patient is being continued on antibiotics in the form of cefepime. Pulmonary and cardiology is on board. Current medications reviewed. Objective - Vital Signs Vital signs: Vital Signs Temp 97.6 F 02/11/21 16:11 Pulse 70 02/11/21 16:11 Resp 18 02/11/21 16:11 BP 137/80 02/11/21 16:11 Pulse Ox 96 02/11/21 16:11 Intake & Output 02/10/21 02/11/21 02/11/21 18:59 06:59 18:59 Intake Total 710 910 Output Total 1100 200 300 Balance -390 -200 610 Weight 77 kg Intake: Intake, IV Titration 50 250 Amount Cefepime 1 gm In Sodium 50 Chloride 0.9% 50 ml @ 12. 5 mls/hr IVPB Q12HR [facility] Rx#:[id number] Sodium Chloride 0.9% 500 250 ml 250 ml @ 999 mls/hr IV .Q16M ONE Rx#:[id number] Oral 660 660 Output: Urine 1100 200 300 Other: Voiding Method Urinal Urinal Urinal # Voids 1 1 - Exam PHYSICAL EXAMINATION: Patient is lying in the bed comfortably, no acute distress, awake alert and orie nted.Poor historian.. HEENT: Normocephalic. Neck is supple. Pupils reactive. Nostrils clear. Oral cavity is moist. Neck reveals no JVD, carotid bruits, or thyromegaly. CHEST EXAMINATION: Trachea is central. Symmetrical expansion. Bibasilar air entry is improved.. No wheezing or rhonchi. Nonlabored breathing.n. CARDIAC: Normal S1, S2 with no gallops. No murmurs ABDOMEN: Soft. Bowel sounds normal. No organomegaly. No abdominal bruits. Extremities: trace edema. No clubbing or cyanosis Neurologically awake, alert, oriented x3 with well-coordinated movements. No focal deficits noted Skin: No rash or skin lesions. Psychiatric: Coperative. Nonsuicidal Musculoskeletal: No joint swelling or deformity. Normal range of motion. - Labs CBC & Chem 7: 02/13/21 06:55 02/13/21 06:55 Labs: Abnormal Lab Results - Last 24 Hours (Table) 02/10/21 02/11/21 02/11/21 Range/Units 20:02 08:36 08:50 RDW (11.5-15.5) % Carbon Dioxide (22-30) mmol/L BUN (9-20) mg/dL Glucose (74-99) mg/dL POC Glucose (mg/dL) 140 H 113 H (75-99) mg/dL Magnesium (1.6-2.3) mg/dL Troponin I 0.070 H* (0.000-0.034) ng/mL 02/11/21 02/11/21 02/11/21 Range/Units 08:50 08:50 11:56 RDW 15.9 H (11.5-15.5) % Carbon Dioxide 20 L (22-30) mmol/L BUN 25 H (9-20) mg/dL Glucose 112 H (74-99) mg/dL POC Glucose (mg/dL) 159 H (75-99) mg/dL Magnesium 2.5 H (1.6-2.3) mg/dL Troponin I (0.000-0.034) ng/mL Microbiology - Last 24 Hours (Table) 02/08/21 10:06 Blood Culture - Preliminary Blood No Growth after 72 hours Assessment and Plan Assessment: Acute on chronic CHF with diastolic dysfunction Shortness of breath likely due to interstitial changes lung. Possible pneumonia/pneumonitis. Patient Low-grade fever and elevated potassium level. Orthostatic hypotension Acute non-ST elevated [place] with elevated troponin level. Severe COPD History of urinary tract infection with Pseudomonas. History of ARDS and chronic hypoxemic respiratory failure. Severe aortic valve stenosis/bicuspid valve History of carotid stenosis with right carotid endarterectomy and left 100% stenosis History of multiple falls due to diabetic neuropathy Hypertension Hyperlipidemia Peripheral vascular disease Esophageal cancer status post radiation Radiation pneumonitis history Chronic lumbar spondylosis Diabetes type 2 insulin-dependent GERD Hearing disorder/deafness Osteoarthritis Hiatal hernia DVT prophylaxis with heparin subcu Plan: Patient will be continued on telemetry monitoring. Patient does have episode of near syncopal and pulse was not palpable as per staff. Continue with IV Lasix 40 mg every 12 and monitor renal function. Changed to by mouth. Continue Midodrin. Serial EKG and troponin x3. Heparin drip has been discontinued. 2-D echocardiogram showed moderate concentric left ventricle hypertrophy. EF 55- 60%.. Severe aortic stenosis. Patient was started on antibiotics in the form of cefepime. History of Pseudomonas cultures in the past.. Continue with DuoNeb's. Continue the home medications Continue with insulin regimen and titrate insulin dose. GI and DVT prophylaxis. Continue to follow closely. Prognosis is guarded with multiple medical problems and comorbid conditions. Time with Patient: Greater than 30
[2021-02-12 12:07] LABS: Glucose,Whole Blood 146 mg/dL (75-99)
--- NOTE | 2021-02-12 12:27 | P.PN ---
Subjective This is a 85-year-old male with a past medical history significant for hypertension, hyperlipidemia, congestive heart failure, peripheral vascular di sease, carotid stenosis, aortic stenosis, and diabetes mellitus. Patient follows in the office with Dr. Albrecht. We have been asked to see the patient in consultation for elevated troponins. It is noted the patient was hospitalized in November 2020 for leukocytosis and hypotension and required vasopressors. Patient examined at the bedside. Patient states over the past few days he has had worsening shortness of breath. He reports a cough at home but denies sputum production. He also reports having a fever at home. Patient was just recently evaluated by his contract runner and the plan was to repeat an echocardiogram in April and if there is any progression of the aortic stenosis than the patient will be scheduled for a cardiac catheterization would be considered for possible TAVR. The patient denies any chest pain or pressure. He reports mild shortness of breath at the time of examination. Patient reports having a cardiac catheterization 20 years ago but states he did not require any stents to be placed. EKG reveals sinus mechanism with no signs of acute ischemia Chest xray correlate for congestive heart failure, pneumonia not excluded. There is emphysema and coronary artery disease, pre-existing interstitial lung disease noted on prior CT. Most recent echocardiogram obtained in November 2020 revealed ejection fraction greater than 70%. Mild aortic regurgitation. Severe aortic stenosis. Cannot exclude vegetation of AOV. Moderate tricuspid regurgitation. Severe pulmonary hypertension. RVSP 66.98 mmHg. Limited Echocardiogram on 02/09 revealed ejection fraction 55-60% with severe aortic stenosis with a peak/mean gradient 64 mmHg/38 mmHg. 02/11/2021 This morning around 0830, patient was walking from the bathroom and became unresponsive, Code Blue was called, RN sternal rubbed patient with no response,RN could not feel a pulse and started compressions, after 4-5 compressions, patient woke up, started grunting, regained consciousness and was alert. He was nausea and had an episode of emesis. Telemetry reviewed, no acute rhythm noted, patient did have a lot of artifact. Vital Signs after were stable. Blood pressure 124/79, heart rate 78, SpO2 95% on 2 L. EKG revealed sinus rhythm HR 60s, no significant ST-T wave abnormalities. Chest Xray completed which revealed patchy basilar infiltrates, improved from prior study on 02/10. Laboratory data reviewed WBC 8.8, hemoglobin 14.7, platelets 224, sodium 142, potassium 4.3, BUN 25, serum creatinine 1.1, troponin 0.07. Patient seen and examined at bedside he denies chest pain, shortness of breath, lightheadedness or dizziness. He denies any issues overnight. He does not recall the episode that occurred this morning. 02/12/2021: Patient seen and examined at bedside, no acute distress. He has no complaints. Denies chest pain or shortness of breaht, lightheadedness or dizziness. No f urther episodes Yesterday patient orthostatic vital signs positive. Blood pressure 134/64, heart rate 63, afebrile, maintaining saturations 90% on 2 L is cannula. Telemetry reviewed sodium 142, potassium 4.9, BUN 25, serum creatinine 1.15. Patient currently maintained on Lasix 40 mg daily, magnesium oxide 400 mg twice a day, midodrine 10 mg twice a day, potassium chloride 10 mg twice a day, pravastatin 80 mg nightly. Telemetry reviewed, sinus mechanism HR 60s. PHYSICAL EXAM: VITAL SIGNS: Reviewed. GENERAL: Well-developed in no acute distress. HEENT: Neck supple. No JVD or thyromegaly LUNGS: Respirations even and unlabored. Lungs diminished to auscultation bila terally HEART: Regular rate and rhythm. S1 and S2 heard. Systolic murmur noted. ABDOMEN: Soft. Nondistended. Nontender. EXTREMITIES: Normal range of motion. No clubbing or cyanosis. Peripheral pu lses intact. No lower extremity edema NEUROLOGIC: Awake and alert. Oriented x 3. ASSESSMENT: Shortness of breath Fever Possible pneumonia/pneumonitis Episode of unresponsive on 02/11/21- Possibly vasovagal patient regained consciouness after 4 compressions, vital signs stable, no acute EKG changes. Concerning that patient's severe aortic stenosis contributed to this event. Abnormal troponins Acute on chronic diastolic heart failure Severe Aortic stenosis Hypertension Hyperlipidemia History of carotid stenosis with recent right carotid endarterectomy Peripheral vascular disease History of esophageal cancer with radiation and chemotherapy PLAN: From a cardiology standpoint, we will continue present medical therapy If patient remains hemodynamically stable ok to discharge from a cardiology standpoint. Recommend close follow up with Dr. Albrecht in terms of further workup for possible TAVR. Nurse practitioner note has been reviewed by physician. Signing provider agrees with the documented findings, assessment, and plan of care. Objective - Vital Signs Vital signs: Vital Signs Temp 97.8 F 02/12/21 11:51 Pulse 63 02/12/21 11:51 Resp 16 02/12/21 11:51 BP 134/64 02/12/21 11:51 Pulse Ox 98 02/12/21 11:51 Intake & Output 02/11/21 02/12/21 02/12/21 18:59 06:59 18:59 Intake Total 1150 Output Total 525 580 Balance 625 -580 Weight 75 kg Intake: Intake, IV Titration 250 Amount Sodium Chloride 0.9% 500 250 ml 250 ml @ 999 mls/hr IV .Q16M ONE Rx#:[id number] Oral 900 Output: Urine 525 580 Other: Voiding Method Urinal Urinal Urinal # Voids 1 1 - Labs CBC & Chem 7: 02/11/21 08:50 02/12/21 08:21 Labs: Abnormal Lab Results - Last 24 Hours (Table) 02/11/21 02/11/21 02/11/21 Range/Units 08:50 16:44 20:17 BUN (9-20) mg/dL Glucose (74-99) mg/dL POC Glucose (mg/dL) 222 H 183 H (75-99) mg/dL Procalcitonin 0.31 H (0.02-0.09) ng/mL 02/12/21 02/12/21 02/12/21 Range/Units 06:56 08:21 12:04 BUN 25 H (9-20) mg/dL Glucose 103 H (74-99) mg/dL POC Glucose (mg/dL) 103 H 146 H (75-99) mg/dL Procalcitonin (0.02-0.09) ng/mL Microbiology - Last 24 Hours (Table) 02/08/21 10:06 Blood Culture - Preliminary Blood No Growth after 96 hours
--- NOTE | 2021-02-12 12:31 | P.PN ---
Subjective Progress Note Date: 02/12/21 Principal diagnosis: 85-year-old male patient, known to me for his history of pulmonary fibrosis, COPD, esophageal cancer in addition to various comorbidities that have been treated over the years both inpatient and outpatient. Patient was doing well. He was recently my office and he was quite stable. The patient came in to the burst department yesterday the patient was feeling weak and he reported Fever at Home and He Had Also Some Cough without Any Significant Sputum Production. No Chest Pain. No Pleurisy or Hemoptysis. No Swelling Lower Extremities. No Altered Mentation. He Was Quite concerning for That Reason He Was Brought into the Hospital for Further Evaluation. The Patient Is Also Known to Have Aortic Stenosis Being Followed up by Cardiology. In the Hospital, Chest X-Ray Showed Some Chronic Interstitial Changes Consistent with Old Fibrosis Especially in the Lung Bases in Addition to Some Count COPD. EKG Showed No Acute Ischemic Changes. at the Was at 10.2 with Hemoglobin of 13.9. BUN Was 24 with a Creatinine of 1.1. Sodium Is at Home for 3. Initial Lactic Acid Level Was at 2.9. Troponin Was 0.269. ProBNP Level Was 710. The Patient Was Started on a Combination of Rocephin and Zithromax. He Was Admitted to the Medical Floor. He Is Already Feeling Better. Less Short of Breath. He Seems to Be Getting Better over the past 24 Hours. No Altered Mentation. No Signs of Any Fluid Overload. 9 2020, the patient is feeling well. Is calm and comfortable. No issues for now. No chest pain. No shortness of breath. He remains on oxygen 2 L per minute nasal cannula. He was placed on IV cefepime. The pro-calcitonin level came back at 0.4 . I did have some troponin leak. He was also placed on IV Lasix by cardiology. No other new complaints otherwise for now. No altered mentation. No significant sputum production. He is currently receiving Lasix dose of 40 mg every 12 hours. He remains also on IV cefepime. On 02/11/2021 patient seen in follow-up. This morning and was walking to the bathroom, when he became unresponsive, and initially staff was unable to palpate a pulse. Patient was transferred to the bed, and chest compressions were started immediately, after about 5 compressions patient woke up and he was very nauseated and started vomiting. quality assurance monitor body showed a lot of artifact during the episode, vital signs were checked and blood pressure was 124/79 with a heart rate of 78, patient's O2 saturations liters were 95%. He denied any chest pain. Twelve-lead EKG, chest x-ray, troponin and CBC and BMP were ordered. EKG showed sinus rhythm in the 60s, no significant ST or T-wave abnormalities. Chest x-ray was completed showing patchy basilar infiltrates, improved from prior study. Blood work showed normal white count of 8.8, hemoglobin of 14.7, sodium is 142, potassium is 4.7, B1 is 25, creatinine was 1.1, troponin was 0.07. Currently patient is resting comfortably in bed, he is awake and alert, oriented 3, breathing comfortably, he is on 2 L of oxygen his pulse ox is 97%. Denies any specific complaints. On 02/12/2021 patient seen in follow-up on selective care unit,patient is awake and alert, in no acute distress, breathing comfortably, no chest pain, no worsening cough, no fever or chills. Vital signs have been stable, blood pressure has been stable. No acute events overnight. no syncopal episodes, no arrhythmias He continues on midodrine twice daily. Yesterday chest x-ray shows patchy basilar infiltrates, that appear to be improved from prior study. Continues on maintenance dose of Lasix 40 daily, he is on empiric antibiotics in form of cefepime. his pro-calcitonin level was coming down, and was down to 0.41 on yesterday's labs. Objective - Vital Signs Vital signs: Vital Signs Temp 97.8 F 02/12/21 11:51 Pulse 63 02/12/21 11:51 Resp 16 02/12/21 11:51 BP 134/64 02/12/21 11:51 Pulse Ox 98 02/12/21 11:51 Intake & Output 02/11/21 02/12/21 02/12/21 18:59 06:59 18:59 Intake Total 1150 Output Total 525 580 Balance 625 -580 Weight 75 kg Intake: Intake, IV Titration 250 Amount Sodium Chloride 0.9% 500 250 ml 250 ml @ 999 mls/hr IV .Q16M ONE Rx#:[id number] Oral 900 Output: Urine 525 580 Other: Voiding Method Urinal Urinal Urinal # Voids 1 1 - Exam GENERAL EXAM: Alert, pleasant, 85-year-old white male, 2 L of oxygen a pulse ox of 98%, resting in bed comfortable in no apparent distress. HEAD: Normocephalic/atraumatic. EYES: Normal reaction of pupils, equal size. Conjunctiva pink, sclera white. NOSE: Clear with pink turbinates. THROAT: No erythema or exudates. NECK: No masses, no JVD, no thyroid enlargement, no adenopathy. CHEST: No chest wall deformity. Symmetrical expansion. LUNGS: Equal air entry with diminished breath sounds at the bases CVS: Regular rate and rhythm, normal S1 and S2, no gallops, no murmurs, no rubs ABDOMEN: Soft, nontender. No hepatosplenomegaly, normal bowel sounds, no guarding or rigidity. EXTREMITIES: No clubbing, no edema, no cyanosis, 2+ pulses and upper and lower extremities. MUSCULOSKELETAL: Muscle strength and tone normal. SPINE: No scoliosis or deformity SKIN: No rashes CENTRAL NERVOUS SYSTEM: Alert and oriented -3. No focal deficits, tone is normal in all 4 extremities. PSYCHIATRIC: Alert and oriented -3. Appropriate affect. Intact judgment and insight. - Labs CBC & Chem 7: 02/11/21 08:50 02/12/21 08:21 Labs: Abnormal Lab Results - Last 24 Hours (Table) 02/11/21 02/11/21 02/11/21 Range/Units 08:50 16:44 20:17 BUN (9-20) mg/dL Glucose (74-99) mg/dL POC Glucose (mg/dL) 222 H 183 H (75-99) mg/dL Procalcitonin 0.31 H (0.02-0.09) ng/mL 02/12/21 02/12/21 02/12/21 Range/Units 06:56 08:21 12:04 BUN 25 H (9-20) mg/dL Glucose 103 H (74-99) mg/dL POC Glucose (mg/dL) 103 H 146 H (75-99) mg/dL Procalcitonin (0.02-0.09) ng/mL Microbiology - Last 24 Hours (Table) 02/08/21 10:06 Blood Culture - Preliminary Blood No Growth after 96 hours Assessment and Plan Plan: Assessment: #1. Dyspnea, chronic, with acute worsening associated with some cough and low- grade fever, no clear indication for pneumonia. She had a chest x-ray that showed chronic interstitial changes in the lung bases bilaterally consistent with pulmonary fibrosis. No focal airspace disease or consolidation. #2. Severe COPD, patient is maintained on a combination of Yupelri and DuoNeb. Patient is currently off budesonide because of ongoing recurrent gram-negative infections in the lungs. 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 #3. Previous history of pseudomonal urinary tract infection #4. History of MRSA pneumonia #5. History of previous episode of acute respiratory distress syndrome #6. Chronic hypoxic respiratory failure #7. History of malignant tumor of the esophagus, status post chemoradiation therapy and the patient seems to be in remission for now #8. Physical deconditioning #9. Severe Aortic valve stenosis, severe with peak gradient across the valve of 85, and there is significant pulmonary hypertension with PA pressure of 66 mmHg #10. Hypertensive disorder #11. Hyperlipidemia #12. Gout #13. Carotid artery stenosis, post carotid endarterectomy on the right #14. episode of unresponsiveness with no palpable pulse, requiring brief CPR, with improvement of patient's LOC and mentation. EKG showed sinus rhythm with no significant ST or T-wave abnormalities. showing patchy bibasilar infiltrates improving from prior study. Plan: Continue current medical treatment no acute events overnight, no syncopal episodes, no arrhythmias Continue cefepime, continue DuoNeb, Continue maintenance dose of Lasix, and Midodrin Follow-up labs and chest x-ray tomorrow I performed a history & physical examination of the patient and discussed their management with my nurse practitioner, Shae Freeman. I reviewed the nurse practitioner's note and agree with the documented findings and plan of care. Lung sounds are positive for diminished breath sounds throughout the lung nogueira. The findings and the impression was discussed with the patient. I attest to the documentation by the nurse practitioner. Time with Patient: Less than 30
[2021-02-12 17:07] LABS: Glucose,Whole Blood 106 mg/dL (75-99)
[2021-02-12] MEDS: ALBUTEROL HFA INHALER INHALATION PRN (19:41)
[2021-02-12] MEDS: TIOTROPIUM 2.5 MCG INHALER INHALATION PRN (19:41)
[2021-02-12 20:49] LABS: Glucose,Whole Blood 197 mg/dL (75-99)
[2021-02-12] MEDS: PRAVASTATIN SODIUM 80 MG TAB PO SCH (21:42)
[2021-02-12] MEDS: ZOLPIDEM 5 MG TAB PO SCH (21:42)
[2021-02-12] MEDS: INSULIN DETEMIR (LEVEMIR) 100 UNIT/ML SYR SQ SCH (21:43)
--- NOTE | 2021-02-13 06:53 | XR ---
EXAMINATION TYPE: XR chest 1V portable DATE OF EXAM: 02/13/2021 HISTORY: Shortness of breath. COMPARISON: 02/11/2021 TECHNIQUE: Single view of the chest is submitted. FINDINGS: Demonstrated are scattered senescent parenchymal change. Coarse basilar opacities persist. The heart is stable. Hilar and mediastinal structures are within normal limits. Degenerative changes are seen of the dorsal spine. IMPRESSION: 1. Coarse basilar opacities persist.
[2021-02-13 07:11] LABS: Glucose,Whole Blood 123 mg/dL (75-99)
[2021-02-13] MEDS: INSULIN ASPART (NovoLOG) 100 UNIT/ML VIAL SQ SCH ×7 (07:15→20:34)
[2021-02-13 07:29] LABS: Basophils % (A) 1 %; Eosinophils # (A) 0.4 k/uL (0-0.7); Eosinophils % (A) 7 %; HCT 45.5 % (39.0-53.0); HGB 13.6 gm/dL (13.0-17.5); Hypochromasia Slight; Lymphocytes % (A) 15 %; MCH 27.1 pg (25.0-35.0); MCHC 29.9 g/dL (31.0-37.0); MCV 90.5 fL (80.0-100.0); Mean Platelet Volume 8.6; Monocytes # (A) 0.4 k/uL (0-1.0); Monocytes % (A) 6 %; Neutrophils # (A) 4.1 k/uL (1.3-7.7); Neutrophils % (A) 67 %; Platelet Count 228 k/uL (150-450); RBC 5.03 m/uL (4.30-5.90); RDW 14.8 % (11.5-15.5); WBC 6.2 k/uL (3.8-10.6)
[2021-02-13 07:47] LABS: Calcium 9.9 mg/dL (8.4-10.2); Potassium 4.4 mmol/L (3.5-5.1)
[2021-02-13] MEDS: TIOTROPIUM 2.5 MCG INHALER INHALATION PRN (07:56)
[2021-02-13] MEDS: ALBUTEROL HFA INHALER INHALATION PRN ×4 (07:56→20:03)
[2021-02-13] MEDS: PANTOPRAZOLE 40 MG TABLET PO SCH ×2 (08:11→21:29)
[2021-02-13] MEDS: buPROPion XL 300 MG TAB.ER.24H PO SCH (08:11)
[2021-02-13] MEDS: POTASSIUM CHLORIDE ER 10 MEQ TAB.ER.PRT PO SCH ×2 (08:11→20:34)
[2021-02-13] MEDS: GABAPENTIN 400 MG CAP PO SCH ×3 (08:11→21:27)
[2021-02-13] MEDS: MAGNESIUM OXIDE 400 MG TAB PO SCH ×2 (08:11→20:34)
[2021-02-13] MEDS: allopurinoL 300 MG TAB PO SCH (08:11)
[2021-02-13] MEDS: FUROSEMIDE 40 MG TAB PO SCH (08:12)
[2021-02-13] MEDS: LORATADINE 10 MG TAB PO SCH (08:12)
[2021-02-13] MEDS: CEFEPIME 1 GM in SODIUM CHLORIDE 0.9% 50 ML IVPB SCH ×2 (08:12→20:34)
[2021-02-13] MEDS: MIDODRINE 5 MG TAB PO SCH ×2 (08:12→17:06)
--- NOTE | 2021-02-13 10:00 | P.PN ---
Subjective Progress Note Date: 02/12/21 Principal diagnosis: Acute non-ST elevated IL with elevated troponin level. Acute on chronic CHF with diastolic dysfunction Patient is a 85-year-old male with a known history of esophageal cancer status post radiation, radiation pneumonitis, hypertension, hyperlipidemia, diabetes type 2 insulin-dependent, COPD, history of cardiac catheterization, hearing disorder/deafness, memory impairment, Hernandez's esophagus, left carotid artery 100% stenosis and right carotid surgery in October 2020 and other multiple medical problems presents to ER with complaints of shortness of breath for the past 3 days. Also has cough without any sputum production. Denies any complaints of chest pain. Since yesterday patient became more dyspneic. Patient states that he also had a fall. Denies any complaints of pain. No dysuria or hematuria. Denies any leg swelling. According to his patient had fever at around 100 this morning. Patientadmitted to hospital with similar symptoms at around 12/16/2020 Chest x-ray showed correlate for CHF., Pneumonia not excluded. There is emphysema and coronary artery disease clinically stable interstitial lung disease noted on prior CT. EKG showed normal sinus rhythm Admission blood pressure 114/70 pulse is 9 respiration 24 and pulse ox is 93% on room air Laboratory data showed WBC 10.2 hemoglobin 13.9 platelets 223 Sodium 140 potassium 4.8 chloride 105 bicarb is 21 BUN 24 and creatinine 1.1 Lactic acid 2.9 Liver enzymes are not elevated Troponin 0 0.244, 0.285 proBNP 710 Urinalysis is negative for infection Patient does have a history of multiple falls and unsteadiness in gait due to diabetic neuropathy. Patient also has chronic lumbar spondylosis with unsteady gait/falls. Patient had FATOUMATA on 08/14/2020 showed moderate aortic stenosis. Possible bicuspid valve, mild aortic and mitral regurgitation preserved LV function. 02/09/2021 Patient is currently sitting in chair. Shortness of breath is better compared to yesterday. No complaints of chest pain. Patient has been afebrile. Continued on antibiotic and off ceftriaxone and azithromycin. Next and patient is on IV Lasix. Cardiology has seen the patient and discontinued heparin drip. 2-D echo that was ordered. Patient has been tolerating oral diet. No complaints of nausea vomiting or abdominal pain or diarrhea. 02/10/2021 Patient is currently sitting in the chair comfortably. Breathing status is much better. Currently requiring oxygen at 2 L by nasal cannula. Patient was started on antibiotics, cefepime. Will placed on level is 0.4. Next and patient is also on IV Lasix will be changed to by mouth. Cardiology and pulmonary is on board. Afebrile. No nausea vomiting or abdominal pain or diarrhea. 02/11/2021 Patient is currently lying in the bed. This morning patient got up from bed and trying to go to the bathroom. Certainly she became very weak and did not to the floor and unresponsive for a few seconds and unable to palpate a pulse. Marcello was able to hold him. Patient was transferred to the bed and chest compressions were started. Patient woke up after 5 compressions. [place] very nauseated and started vomiting. Currently blood pressure is stable. Orthostatic vitals were checked which were positive. Lasix was changed to 40 minutes daily and also patient is currently on Midodrin twice daily. EKG showed normal sinus rhythm with no ST-T abnormalities. Chest x-ray showed patchy bibasilar infiltrates improved from prior study. Laboratory data showed BUN 25-1.1 bicarb 20 troponin 0.070 and a pro-calcitonin level is 0.31 Patient is being continued on antibiotics in the form of cefepime. Pulmonary and cardiology is on board. Next and 02/12/2021 Patient is currently lying in the bed. Awake alert and oriented 3. Still complains of dizziness whenever he gets up from bed. No complaints of chest pain. Patient does have severe aortic respiration. Lasix changed to by mouth. Patient is also on Midodrin. Patient is being continued on antibiotics in the form of cefepime. Afebrile. Pulmonary and cardiology is on board. Current medications reviewed. Objective - Vital Signs Vital signs: Vital Signs Temp 97.8 F 02/12/21 21:05 Pulse 68 02/12/21 21:05 Resp 22 02/12/21 21:05 BP 152/72 02/12/21 21:05 Pulse Ox 95 02/12/21 16:00 Intake & Output 02/12/21 02/12/21 02/13/21 06:59 18:59 06:59 Intake Total 1140 Output Total 580 450 350 Balance -580 690 -350 Weight 75 kg Intake: Oral 1140 Output: Urine 580 450 350 Other: Voiding Method Urinal Urinal # Voids 1 1 # Bowel Movements 1 - Exam PHYSICAL EXAMINATION: Patient is lying in the bed comfortably, no acute distress, awake alert and oriented.Poor historian.. HEENT: Normocephalic. Neck is supple. Pupils reactive. Nostrils clear. Oral cavity is moist. Neck reveals no JVD, carotid bruits, or thyromegaly. CHEST EXAMINATION: Trachea is central. Symmetrical expansion. Bibasilar air entry is improved.. No wheezing or rhonchi. Nonlabored breathing.n. CARDIAC: Normal S1, S2 with no gallops. No murmurs ABDOMEN: Soft. Bowel sounds normal. No organomegaly. No abdominal bruits. Extremities: trace edema. No clubbing or cyanosis Neurologically awake, alert, oriented x3 with well-coordinated movements. No focal deficits noted Skin: No rash or skin lesions. Psychiatric: Coperative. Nonsuicidal Musculoskeletal: No joint swelling or deformity. Normal range of motion. - Labs CBC & Chem 7: 02/13/21 06:55 02/13/21 06:55 Labs: Abnormal Lab Results - Last 24 Hours (Table) 02/12/21 02/12/21 02/12/21 Range/Units 06:56 08: 12:04 BUN 25 H (9-20) mg/dL Glucose 103 H (74-99) mg/dL POC Glucose (mg/dL) 103 H 146 H (75-99) mg/dL 02/12/21 02/12/21 Range/Units 17:05 20:47 BUN (9-20) mg/dL Glucose (74-99) mg/dL POC Glucose (mg/dL) 106 H 197 H (75-99) mg/dL Microbiology - Last 24 Hours (Table) 02/08/21 10:06 Blood Culture - Preliminary Blood No Growth after 96 hours Assessment and Plan Assessment: Acute on chronic CHF with diastolic dysfunction Shortness of breath likely due to interstitial changes lung. Possible pneumonia/pneumonitis. Patient Low-grade fever and elevated pro calcitonin level. Continued on cefepime. Near syncopal episode due to Orthostatic hypotension and severe aortic regurgitation. Acute non-ST elevated IL with elevated troponin level. Severe COPD History of urinary tract infection with Pseudomonas. History of ARDS and chronic hypoxemic respiratory failure. Severe aortic valve stenosis/bicuspid valve History of carotid stenosis with right carotid endarterectomy and left 100% stenosis History of multiple falls due to diabetic neuropathy Hypertension Hyperlipidemia Peripheral vascular disease Esophageal cancer status post radiation Radiation pneumonitis history Chronic lumbar spondylosis Diabetes type 2 insulin-dependent GERD Hearing disorder/deafness Osteoarthritis Hiatal hernia DVT prophylaxis with heparin subcu Plan: Patient will be continued on telemetry monitoring. Patient does have episode of near syncopal and pulse was not palpable as per staff likely due to severe aortic regurgitation and orthostatic hypotension Was on IV Lasix 40 mg every 12 and monitor renal function. Changed to Lasix 40 mg daily. Continue with Midodrin twice daily.. Serial EKG and troponin x3. Heparin drip has been discontinued. 2-D echocardiogram showed moderate concentric left ventricle hypertrophy. EF 55- 60%.. Severe aortic stenosis. Patient was started on antibiotics in the form of cefepime. History of Pseudomonas cultures in the past.. Continue with DuoNeb's. Continue the home medications Continue with insulin regimen and titrate insulin dose. GI and DVT prophylaxis. Continue to follow closely. Prognosis is guarded with multiple medical problems and comorbid conditions. Time with Patient: Greater than 30
[2021-02-13 12:01] LABS: Glucose,Whole Blood 188 mg/dL (75-99)
--- NOTE | 2021-02-13 12:28 | P.PN ---
Subjective This is a 85-year-old male with a past medical history significant for hypertension, hyperlipidemia, congestive heart failure, peripheral vascular di sease, carotid stenosis, aortic stenosis, and diabetes mellitus. Patient follows in the office with Dr. Albrecht. We have been asked to see the patient in consultation for elevated troponins. It is noted the patient was hospitalized in November 2020 for leukocytosis and hypotension and required vasopressors. Patient examined at the bedside. Patient states over the past few days he has had worsening shortness of breath. He reports a cough at home but denies sputum production. He also reports having a fever at home. Patient was just recently evaluated by his dexigraph operator and the plan was to repeat an echocardiogram in April and if there is any progression of the aortic stenosis than the patient will be scheduled for a cardiac catheterization would be considered for possible TAVR. The patient denies any chest pain or pressure. He reports mild shortness of breath at the time of examination. Patient reports having a cardiac catheterization 20 years ago but states he did not require any stents to be placed. EKG reveals sinus mechanism with no signs of acute ischemia Chest xray correlate for congestive heart failure, pneumonia not excluded. There is emphysema and coronary artery disease, pre-existing interstitial lung disease noted on prior CT. Most recent echocardiogram obtained in November 2020 revealed ejection fraction greater than 70%. Mild aortic regurgitation. Severe aortic stenosis. Cannot exclude vegetation of AOV. Moderate tricuspid regurgitation. Severe pulmonary hypertension. RVSP 66.98 mmHg. Limited Echocardiogram on 02/09 revealed ejection fraction 55-60% with severe aortic stenosis with a peak/mean gradient 64 mmHg/38 mmHg. 02/11/2021 This morning around 0830, patient was walking from the bathroom and became unresponsive, Code Blue was called, RN sternal rubbed patient with no response,RN could not feel a pulse and started compressions, after 4-5 compressions, patient woke up, started grunting, regained consciousness and was alert. He was nausea and had an episode of emesis. Telemetry reviewed, no acute rhythm noted, patient did have a lot of artifact. Vital Signs after were stable. Blood pressure 124/79, heart rate 78, SpO2 95% on 2 L. EKG revealed sinus rhythm HR 60s, no significant ST-T wave abnormalities. Chest Xray completed which revealed patchy basilar infiltrates, improved from prior study on 02/10. Laboratory data reviewed WBC 8.8, hemoglobin 14.7, platelets 224, sodium 142, potassium 4.3, BUN 25, serum creatinine 1.1, troponin 0.07. Patient seen and examined at bedside he denies chest pain, shortness of breath, lightheadedness or dizziness. He denies any issues overnight. He does not recall the episode that occurred this morning. 02/13/2021 Patient seen and examined at bedside, no acute distress. He has no complaints. Denies chest pain or shortness of breath, lightheadedness or dizziness. No fu rther episodes of syncope or vasovagal episodes. He did have positive orthostatics yesterday. blood pressure 132/74, heart rate 62, afebrile, maintaining oxygen saturations 94% on room air. laboratory data reviewed WBC 6.2, hemoglobin 13.6, platelets 228, sodium 138, potassium 4.4, BUN 24, serum cr eatinine 1.1. Patient currently maintained on Lasix 40 mg daily, magnesium oxide 400 mg twice a day, midodrine 10 mg twice a day, potassium chloride 10 mg twice a day, pravastatin 80 mg nightly. Telemetry reviewed, sinus mechanism HR 60s. PHYSICAL EXAM: VITAL SIGNS: Reviewed. GENERAL: Well-developed in no acute distress. HEENT: Neck supple. No JVD or thyromegaly LUNGS: Respirations even and unlabored. Lungs diminished to auscultation bilaterally HEART: Regular rate and rhythm. S1 and S2 heard. Systolic murmur noted. ABDOMEN: Soft. Nondistended. Nontender. EXTREMITIES: Normal range of motion. No clubbing or cyanosis. Peripheral pulses intact. No lower extremity edema NEUROLOGIC: Awake and alert. Oriented x 3. ASSESSMENT: Shortness of breath Fever Possible pneumonia/pneumonitis Episode of unresponsive on 02/11/21- Possibly vasovagal patient regained consciouness after 4 compressions, vital signs stable, no acute EKG changes. C oncerning that patient's severe aortic stenosis contributed to this event. Orthostatic hypotension Abnormal troponins, may be related to patient's aortic stenosis, demand and supply mismatch, CAD cannot be excluded. Acute on chronic diastolic heart failure Severe Aortic stenosis Hypertension Hyperlipidemia History of carotid stenosis with recent right carotid endarterectomy Peripheral vascular disease History of esophageal cancer with radiation and chemotherapy PLAN: From a cardiology standpoint, we will continue present medical therapy If patient remains hemodynamically stable ok to discharge from a cardiology standpoint. Recommend close follow up with Dr. Albrecht in terms of further workup for possible TAVR. Nurse practitioner note has been reviewed by physician. Signing provider agrees with the documented findings, assessment, and plan of care. Objective - Vital Signs Vital signs: Vital Signs Temp 97.9 F 02/13/21 08:10 Pulse 62 02/13/21 11:43 Resp 16 02/13/21 11:43 BP 132/74 02/13/21 11:43 Pulse Ox 94 L 02/13/21 11:43 Intake & Output 02/12/21 02/13/21 02/13/21 18:59 06:59 18:59 Intake Total 1140 120 Output Total 450 600 650 Balance 690 -600 -530 Weight 75.9 kg Intake: Oral 1140 120 Output: Urine 450 600 650 Other: Voiding Method Urinal # Voids 1 # Bowel Movements 1 - Labs CBC & Chem 7: 02/13/21 06:55 02/13/21 06:55 Labs: Abnormal Lab Results - Last 24 Hours (Table) 02/12/21 02/12/21 02/13/21 Range/Units 17:05 20:47 06:55 MCHC 29.9 L (31.0-37.0) g/dL BUN (9-20) mg/dL Glucose (74-99) mg/dL POC Glucose (mg/dL) 106 H 197 H (75-99) mg/dL 02/13/21 02/13/21 02/13/21 Range/Units 06:55 07:06 11:46 MCHC (31.0-37.0) g/dL BUN 24 H (9-20) mg/dL Glucose 133 H (74-99) mg/dL POC Glucose (mg/dL) 123 H 188 H (75-99) mg/dL Microbiology - Last 24 Hours (Table) 02/08/21 10:06 Blood Culture - Preliminary Blood No Growth after 96 hours
--- NOTE | 2021-02-13 12:37 | P.PN ---
Subjective Progress Note Date: 02/13/21 Principal diagnosis: 85-year-old male patient, known to me for his history of pulmonary fibrosis, COPD, esophageal cancer in addition to various comorbidities that have been treated over the years both inpatient and outpatient. Patient was doing well. He was recently my office and he was quite stable. The patient came in to the burst department yesterday the patient was feeling weak and he reported Fever at Home and He Had Also Some Cough without Any Significant Sputum Production. No Chest Pain. No Pleurisy or Hemoptysis. No Swelling Lower Extremities. No Altered Mentation. He Was Quite concerning for That Reason He Was Brought into the Hospital for Further Evaluation. The Patient Is Also Known to Have Aortic Stenosis Being Followed up by Cardiology. In the Hospital, Chest X-Ray Showed Some Chronic Interstitial Changes Consistent with Old Fibrosis Especially in the Lung Bases in Addition to Some Count COPD. EKG Showed No Acute Ischemic Changes. at the Was at 10.2 with Hemoglobin of 13.9. BUN Was 24 with a Creatinine of 1.1. Sodium Is at Home for 3. Initial Lactic Acid Level Was at 2.9. Troponin Was 0.269. ProBNP Level Was 710. The Patient Was Started on a Combination of Rocephin and Zithromax. He Was Admitted to the Medical Floor. He Is Already Feeling Better. Less Short of Breath. He Seems to Be Getting Better over the past 24 Hours. No Altered Mentation. No Signs of Any Fluid Overload. 9 2020, the patient is feeling well. Is calm and comfortable. No issues for now. No chest pain. No shortness of breath. He remains on oxygen 2 L per minute nasal cannula. He was placed on IV cefepime. The pro-calcitonin level came back at 0.4 . I did have some troponin leak. He was also placed on IV Lasix by cardiology. No other new complaints otherwise for now. No altered mentation. No significant sputum production. He is currently receiving Lasix dose of 40 mg every 12 hours. He remains also on IV cefepime. On 02/11/2021 patient seen in follow-up. This morning and was walking to the bathroom, when he became unresponsive, and initially staff was unable to palpate a pulse. Patient was transferred to the bed, and chest compressions were started immediately, after about 5 compressions patient woke up and he was very nauseated and started vomiting. flight manager showed a lot of artifact during the episode, vital signs were checked and blood pressure was 124/79 with a heart rate of 78, patient's O2 saturations liters were 95%. He denied any chest pain. Twelve-lead EKG, chest x-ray, troponin and CBC and BMP were ordered. EKG showed sinus rhythm in the 60s, no significant ST or T-wave abnormalities. Chest x-ray was completed showing patchy basilar infiltrates, improved from prior study. Blood work showed normal white count of 8.8, hemoglobin of 14.7, sodium is 142, potassium is 4.7, B1 is 25, creatinine was 1.1, troponin was 0.07. Currently patient is resting comfortably in bed, he is awake and alert, oriented 3, breathing comfortably, he is on 2 L of oxygen his pulse ox is 97%. Denies any specific complaints. On 02/12/2021 patient seen in follow-up on selective care unit,patient is awake and alert, in no acute distress, breathing comfortably, no chest pain, no worsening cough, no fever or chills. Vital signs have been stable, blood pressure has been stable. No acute events overnight. no syncopal episodes, no arrhythmias He continues on midodrine twice daily. Yesterday chest x-ray shows patchy basilar infiltrates, that appear to be improved from prior study. Continues on maintenance dose of Lasix 40 daily, he is on empiric antibiotics in form of cefepime. his pro-calcitonin level was coming down, and was down to 0.41 on yesterday's labs. On 02/13/2021 patient seen in follow-up selective care unit, he is resting comfortably in bed, appears to be in no acute distress, breathing comfortably, he is currently on room air, pulse ox is 94%.'s been afebrile, hemodynamically has been stable, no compressive chest discomfort, no cough, no phlegm production. Continues on Lasix 40 mg daily, is in negative fluid balance. Remains on cefepime for empiric antibiotic coverage. Continues on breathing treatments, no fever or chills, follow-up chest x-ray today shows coarse basilar opacities. Today's labs have been noted, white blood cell count is within normal limits at 6.2, hemoglobin is 13.6, electrolytes and renal profile are unremarkable. Cultures have shown no growth. Objective - Vital Signs Vital signs: Vital Signs Temp 97.9 F 02/13/21 08:10 Pulse 62 02/13/21 11:43 Resp 16 02/13/21 11:43 BP 132/74 02/13/21 11:43 Pulse Ox 94 L 02/13/21 11:43 Intake & Output 02/12/21 02/13/21 02/13/21 18:59 06:59 18:59 Intake Total 1140 120 Output Total 450 600 650 Balance 690 -600 -530 Weight 75.9 kg Intake: Oral 1140 120 Output: Urine 450 600 650 Other: Voiding Method Urinal # Voids 1 # Bowel Movements 1 - Exam GENERAL EXAM: Alert, pleasant, 85-year-old white male, 2 L of oxygen a pulse ox of 98%, resting in bed comfortable in no apparent distress. HEAD: Normocephalic/atraumatic. EYES: Normal reaction of pupils, equal size. Conjunctiva pink, sclera white. NOSE: Clear with pink turbinates. THROAT: No erythema or exudates. NECK: No masses, no JVD, no thyroid enlargement, no adenopathy. CHEST: No chest wall deformity. Symmetrical expansion. LUNGS: Equal air entry with diminished breath sounds at the bases CVS: Regular rate and rhythm, normal S1 and S2, no gallops, no murmurs, no rubs ABDOMEN: Soft, nontender. No hepatosplenomegaly, normal bowel sounds, no guarding or rigidity. EXTREMITIES: No clubbing, no edema, no cyanosis, 2+ pulses and upper and lower extremities. MUSCULOSKELETAL: Muscle strength and tone normal. SPINE: No scoliosis or deformity SKIN: No rashes CENTRAL NERVOUS SYSTEM: Alert and oriented -3. No focal deficits, tone is normal in all 4 extremities. PSYCHIATRIC: Alert and oriented -3. Appropriate affect. Intact judgment and insight. - Labs CBC & Chem 7: 02/13/21 06:55 02/13/21 06:55 Labs: Abnormal Lab Results - Last 24 Hours (Table) 02/12/21 02/12/21 02/13/21 Range/Units 17:05 20:47 06:55 MCHC 29.9 L (31.0-37.0) g/dL BUN (9-20) mg/dL Glucose (74-99) mg/dL POC Glucose (mg/dL) 106 H 197 H (75-99) mg/dL 02/13/21 02/13/21 02/13/21 Range/Units 06:55 07:06 11:46 MCHC (31.0-37.0) g/dL BUN 24 H (9-20) mg/dL Glucose 133 H (74-99) mg/dL POC Glucose (mg/dL) 123 H 188 H (75-99) mg/dL Microbiology - Last 24 Hours (Table) 02/08/21 10:06 Blood Culture - Preliminary Blood No Growth after 120 hours Assessment and Plan Plan: Assessment: #1. Dyspnea, chronic, with acute worsening associated with some cough and low-grade fever, no clear indication for pneumonia. She had a chest x-ray that showed chronic interstitial changes in the lung bases bilaterally consistent with pulmonary fibrosis. No focal airspace disease or consolidation. #2. Severe COPD, patient is maintained on a combination of Yupelri and DuoNeb. Patient is currently off budesonide because of ongoing recurrent gram-negative infections in the lungs. 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 #3. Previous history of pseudomonal urinary tract infection #4. History of MRSA pneumonia #5. History of previous episode of acute respiratory distress syndrome #6. Chronic hypoxic respiratory failure #7. History of malignant tumor of the esophagus, status post chemoradiation therapy and the patient seems to be in remission for now #8. Physical deconditioning #9. Severe Aortic valve stenosis, severe with peak gradient across the valve of 85, and there is significant pulmonary hypertension with PA pressure of 66 mmHg #10. Hypertensive disorder #11. Hyperlipidemia #12. Gout #13. Carotid artery stenosis, post carotid endarterectomy on the right #14. episode of unresponsiveness with no palpable pulse, requiring brief CPR, with improvement of patient's LOC and mentation. EKG showed sinus rhythm with no significant ST or T-wave abnormalities. showing patchy bibasilar infiltrates improving from prior study. Plan: Patient is stable from pulmonary perspective Vital signs are stable, no fever or chills Today's chest x-ray has been reviewed, labs have been reviewed No acute events overnight Blood cultures have shown no growth He is breathing comfortably, no cough, no chest congestion From pulmonary perspective he can be considered for discharge home Outpatient follow-up with Dr. Brown in the office in 7-10 days I performed a history & physical examination of the patient and discussed their management with my nurse practitioner, Shae Freeman. I reviewed the nurse practitioner's note and agree with the documented findings and plan of care. Lung sounds are positive for diminished breath sounds throughout the lung nogueira. The findings and the impression was discussed with the patient. I attest to the documentation by the nurse practitioner. Time with Patient: Less than 30
[2021-02-13 16:58] LABS: Glucose,Whole Blood 151 mg/dL (75-99)
[2021-02-13 20:20] LABS: Glucose,Whole Blood 73 mg/dL (75-99)
[2021-02-13] MEDS: INSULIN DETEMIR (LEVEMIR) 100 UNIT/ML SYR SQ SCH (20:34)
[2021-02-13] MEDS: PRAVASTATIN SODIUM 80 MG TAB PO SCH (20:34)
[2021-02-13] MEDS: ZOLPIDEM 5 MG TAB PO SCH (20:35)
--- NOTE | 2021-02-13 22:29 | P.PN ---
Subjective Progress Note Date: 02/13/21 Principal diagnosis: Acute non-ST elevated CO with elevated troponin level. Acute on chronic CHF with diastolic dysfunction Patient is a 85-year-old male with a known history of esophageal cancer status post radiation, radiation pneumonitis, hypertension, hyperlipidemia, diabetes type 2 insulin-dependent, COPD, history of cardiac catheterization, hearing disorder/deafness, memory impairment, Hernandez's esophagus, left carotid artery 100% stenosis and right carotid surgery in October 2020 and other multiple medical problems presents to ER with complaints of shortness of breath for the past 3 days. Also has cough without any sputum production. Denies any complaints of chest pain. Since yesterday patient became more dyspneic. Patient states that he also had a fall. Denies any complaints of pain. No dysuria or hematuria. Denies any leg swelling. According to his patient had fever at around 100 this morning. Patientadmitted to hospital with similar symptoms at around 12/16/2020 Chest x-ray showed correlate for CHF., Pneumonia not excluded. There is emphysema and coronary artery disease clinically stable interstitial lung disease noted on prior CT. EKG showed normal sinus rhythm Admission blood pressure 114/70 pulse is 9 respiration 24 and pulse ox is 93% on room air Laboratory data showed WBC 10.2 hemoglobin 13.9 platelets 223 Sodium 140 potassium 4.8 chloride 105 bicarb is 21 BUN 24 and creatinine 1.1 Lactic acid 2.9 Liver enzymes are not elevated Troponin 0 0.244, 0.285 proBNP 710 Urinalysis is negative for infection Patient does have a history of multiple falls and unsteadiness in gait due to diabetic neuropathy. Patient also has chronic lumbar spondylosis with unsteady gait/falls. Patient had FATOUMATA on 08/14/2020 showed moderate aortic stenosis. Possible bicuspid valve, mild aortic and mitral regurgitation preserved LV function. 02/09/2021 Patient is currently sitting in chair. Shortness of breath is better compared to yesterday. No complaints of chest pain. Patient has been afebrile. Continued on antibiotic and off ceftriaxone and azithromycin. Next and patient is on IV Lasix. Cardiology has seen the patient and discontinued heparin drip. 2-D echo that was ordered. Patient has been tolerating oral diet. No complaints of nausea vomiting or abdominal pain or diarrhea. 02/10/2021 Patient is currently sitting in the chair comfortably. Breathing status is much better. Currently requiring oxygen at 2 L by nasal cannula. Patient was started on antibiotics, cefepime. Will placed on level is 0.4. Next and patient is also on IV Lasix will be changed to by mouth. Cardiology and pulmonary is on board. Afebrile. No nausea vomiting or abdominal pain or diarrhea. 02/11/2021 Patient is currently lying in the bed. This morning patient got up from bed and trying to go to the bathroom. Certainly she became very weak and did not to the floor and unresponsive for a few seconds and unable to palpate a pulse. Marcello was able to hold him. Patient was transferred to the bed and chest compressions were started. Patient woke up after 5 compressions. [place] very nauseated and started vomiting. Currently blood pressure is stable. Orthostatic vitals were checked which were positive. Lasix was changed to 40 minutes daily and also patient is currently on Midodrin twice daily. EKG showed normal sinus rhythm with no ST-T abnormalities. Chest x-ray showed patchy bibasilar infiltrates improved from prior study. Laboratory data showed BUN 25-1.1 bicarb 20 troponin 0.070 and a pro-calcitonin level is 0.31 Patient is being continued on antibiotics in the form of cefepime. Pulmonary and cardiology is on board. Next and 02/12/2021 Patient is currently lying in the bed. Awake alert and oriented 3. Still complains of dizziness whenever he gets up from bed. No complaints of chest pain. Patient does have severe aortic respiration. Lasix changed to by mouth. Patient is also on Midodrin. Patient is being continued on antibiotics in the form of cefepime. Afebrile. Pulmonary and cardiology is on board. 02/13/2021 Patient is currently sitting in a chair comfortably. No complaints of dizziness or lightheadedness while he is state. Did not complain dizziness when he was getting out of bed. on Midodrine BID Patient is saturating well on room air. No complaints of chest pain or shortness of breath. Still feels weak. PT OT is on board. Patient is being treated on Lasix 40 mg daily and also antibiotics in the form of cefepime. Continued on breathing treatments. No complaints of fever or chills. No cough or sputum production. Laboratory data showed BUN 24 and creatinine 1.11 Chest x-ray showed coarse basilar opacities persist. Blood culture showed no growth. Anticipate discharge the next 24 hours with more clinical improvement. Current medications reviewed. Current medications reviewed. Objective - Vital Signs Vital signs: Vital Signs Temp 98.3 F 02/13/21 20:00 Pulse 66 02/13/21 20:00 Resp 16 02/13/21 20:00 BP 132/71 02/13/21 20:00 Pulse Ox 93 L 02/13/21 20:03 Intake & Output 02/13/21 02/13/21 02/14/21 06:59 18:59 06:59 Intake Total 360 Output Total 600 1150 550 Balance -600 -790 -550 Weight 75.9 kg Intake: Oral 360 Output: Urine 600 1150 Urine/Stool Mix 550 Other: # Voids 1 1 1 # Bowel Movements 1 - Exam PHYSICAL EXAMINATION: Patient is lying in the bed comfortably, no acute distress, awake alert and oriented. HEENT: Normocephalic. Neck is supple. Pupils reactive. Nostrils clear. Oral cavity is moist. Neck reveals no JVD, carotid bruits, or thyromegaly. CHEST EXAMINATION: Trachea is central. Symmetrical expansion. Bibasilar air entry is improved.. No wheezing or rhonchi. Nonlabored breathing.n. CARDIAC: Normal S1, S2 with no gallops. No murmurs ABDOMEN: Soft. Bowel sounds normal. No organomegaly. No abdominal bruits. Extremities: trace edema. No clubbing or cyanosis Neurologically awake, alert, oriented x3 with well-coordinated movements. No focal deficits noted Skin: No rash or skin lesions. Psychiatric: Coperative. Nonsuicidal Musculoskeletal: No joint swelling or deformity. Normal range of motion. - Labs CBC & Chem 7: 02/13/21 06:55 02/13/21 06:55 Labs: Abnormal Lab Results - Last 24 Hours (Table) 02/13/21 02/13/21 02/13/21 Range/Units 06:55 06:55 07:06 MCHC 29.9 L (31.0-37.0) g/dL BUN 24 H (9-20) mg/dL Glucose 133 H (74-99) mg/dL POC Glucose (mg/dL) 123 H (75-99) mg/dL 02/13/21 02/13/21 02/13/21 Range/Units 11:46 16:54 20:17 MCHC (31.0-37.0) g/dL BUN (9-20) mg/dL Glucose (74-99) mg/dL POC Glucose (mg/dL) 188 H 151 H 73 L (75-99) mg/dL Microbiology - Last 24 Hours (Table) 02/08/21 10:06 Blood Culture - Preliminary Blood No Growth after 120 hours Assessment and Plan Assessment: Acute on chronic CHF with diastolic dysfunction Shortness of breath likely due to interstitial changes lung. Possible pneumonia/pneumonitis. Patient Low-grade fever and elevated pro calcitonin level. Continued on cefepime. Near syncopal episode due to Orthostatic hypotension and severe aortic regurgitation. Acute non-ST elevated CO with elevated troponin level. Severe COPD History of urinary tract infection with Pseudomonas. History of ARDS and chronic hypoxemic respiratory failure. Severe aortic valve stenosis/bicuspid valve History of carotid stenosis with right carotid endarterectomy and left 100% stenosis History of multiple falls due to diabetic neuropathy Hypertension Hyperlipidemia Peripheral vascular disease Esophageal cancer status post radiation Radiation pneumonitis history Chronic lumbar spondylosis Diabetes type 2 insulin-dependent GERD Hearing disorder/deafness Osteoarthritis Hiatal hernia DVT prophylaxis with heparin subcu Plan: Patient will be continued on telemetry monitoring. Patient does have episode of near syncopal and pulse was not palpable as per staff likely due to severe aortic regurgitation and orthostatic hypotension Was on IV Lasix 40 mg every 12 and monitor renal function. Changed to Lasix 40 mg daily. Continue with Midodrin twice daily.. Serial EKG and troponin x3. Heparin drip has been discontinued. 2-D echocardiogram showed moderate concentric left ventricle hypertrophy. EF 55- 60%.. Severe aortic stenosis. Patient was started on antibiotics in the form of cefepime. History of Pseud omonas cultures in the past.. Continue with DuoNeb's. Continue the home medications Continue with insulin regimen and titrate insulin dose. GI and DVT prophylaxis. Continue to follow closely. Prognosis is guarded with multiple medical problems and comorbid conditions. Time with Patient: Greater than 30
[2021-02-14 04:25] VITALS: RESP 18
[2021-02-14 07:18] LABS: Glucose,Whole Blood 167 mg/dL (75-99)
[2021-02-14] MEDS: INSULIN ASPART (NovoLOG) 100 UNIT/ML VIAL SQ SCH ×6 (07:32→17:05)
[2021-02-14] MEDS: MIDODRINE 5 MG TAB PO SCH ×2 (07:32→17:05)
[2021-02-14] MEDS: TIOTROPIUM 2.5 MCG INHALER INHALATION PRN (08:36)
[2021-02-14] MEDS: POTASSIUM CHLORIDE ER 10 MEQ TAB.ER.PRT PO SCH (09:02)
[2021-02-14] MEDS: CEFEPIME 1 GM in SODIUM CHLORIDE 0.9% 50 ML IVPB SCH (09:02)
[2021-02-14] MEDS: PANTOPRAZOLE 40 MG TABLET PO SCH (09:02)
[2021-02-14] MEDS: LORATADINE 10 MG TAB PO SCH (09:02)
[2021-02-14] MEDS: GABAPENTIN 400 MG CAP PO SCH ×2 (09:02→13:03)
[2021-02-14] MEDS: FUROSEMIDE 40 MG TAB PO SCH (09:02)
[2021-02-14] MEDS: MAGNESIUM OXIDE 400 MG TAB PO SCH (09:02)
[2021-02-14] MEDS: allopurinoL 300 MG TAB PO SCH (09:02)
[2021-02-14] MEDS: buPROPion XL 300 MG TAB.ER.24H PO SCH (09:02)
--- NOTE | 2021-02-14 11:02 | P.PN ---
Subjective Progress Note Date: 02/14/21 Principal diagnosis: 85-year-old male patient, known to me for his history of pulmonary fibrosis, COPD, esophageal cancer in addition to various comorbidities that have been treated over the years both inpatient and outpatient. Patient was doing well. He was recently my office and he was quite stable. The patient came in to the burst department yesterday the patient was feeling weak and he reported Fever at Home and He Had Also Some Cough without Any Significant Sputum Production. No Chest Pain. No Pleurisy or Hemoptysis. No Swelling Lower Extremities. No Altered Mentation. He Was Quite concerning for That Reason He Was Brought into the Hospital for Further Evaluation. The Patient Is Also Known to Have Aortic Stenosis Being Followed up by Cardiology. In the Hospital, Chest X-Ray Showed Some Chronic Interstitial Changes Consistent with Old Fibrosis Especially in the Lung Bases in Addition to Some Count COPD. EKG Showed No Acute Ischemic Changes. at the Was at 10.2 with Hemoglobin of 13.9. BUN Was 24 with a Creatinine of 1.1. Sodium Is at Home for 3. Initial Lactic Acid Level Was at 2.9. Troponin Was 0.269. ProBNP Level Was 710. The Patient Was Started on a Combination of Rocephin and Zithromax. He Was Admitted to the Medical Floor. He Is Already Feeling Better. Less Short of Breath. He Seems to Be Getting Better over the past 24 Hours. No Altered Mentation. No Signs of Any Fluid Overload. 9 2020, the patient is feeling well. Is calm and comfortable. No issues for now. No chest pain. No shortness of breath. He remains on oxygen 2 L per minute nasal cannula. He was placed on IV cefepime. The pro-calcitonin level came back at 0.4 . I did have some troponin leak. He was also placed on IV Lasix by cardiology. No other new complaints otherwise for now. No altered mentation. No significant sputum production. He is currently receiving Lasix dose of 40 mg every 12 hours. He remains also on IV cefepime. On 02/11/2021 patient seen in follow-up. This morning and was walking to the bathroom, when he became unresponsive, and initially staff was unable to palpate a pulse. Patient was transferred to the bed, and chest compressions were started immediately, after about 5 compressions patient woke up and he was very nauseated and started vomiting. drying room attendant showed a lot of artifact during the episode, vital signs were checked and blood pressure was 124/79 with a heart rate of 78, patient's O2 saturations liters were 95%. He denied any chest pain. Twelve-lead EKG, chest x-ray, troponin and CBC and BMP were ordered. EKG showed sinus rhythm in the 60s, no significant ST or T-wave abnormalities. Chest x-ray was completed showing patchy basilar infiltrates, improved from prior study. Blood work showed normal white count of 8.8, hemoglobin of 14.7, sodium is 142, potassium is 4.7, B1 is 25, creatinine was 1.1, troponin was 0.07. Currently patient is resting comfortably in bed, he is awake and alert, oriented 3, breathing comfortably, he is on 2 L of oxygen his pulse ox is 97%. Denies any specific complaints. On 02/12/2021 patient seen in follow-up on selective care unit,patient is awake and alert, in no acute distress, breathing comfortably, no chest pain, no worsening cough, no fever or chills. Vital signs have been stable, blood pressure has been stable. No acute events overnight. no syncopal episodes, no arrhythmias He continues on midodrine twice daily. Yesterday chest x-ray shows patchy basilar infiltrates, that appear to be improved from prior study. Continues on maintenance dose of Lasix 40 daily, he is on empiric antibiotics in form of cefepime. his pro-calcitonin level was coming down, and was down to 0.41 on yesterday's labs. On 02/13/2021 patient seen in follow-up selective care unit, he is resting comfortably in bed, appears to be in no acute distress, breathing comfortably, he is currently on room air, pulse ox is 94%.'s been afebrile, hemodynamically has been stable, no compressive chest discomfort, no cough, no phlegm production. Continues on Lasix 40 mg daily, is in negative fluid balance. Remains on cefepime for empiric antibiotic coverage. Continues on breathing treatments, no fever or chills, follow-up chest x-ray today shows coarse basilar opacities. Today's labs have been noted, white blood cell count is within normal limits at 6.2, hemoglobin is 13.6, electrolytes and renal profile are unremarkable. Cultures have shown no growth. On 02/14/2021 patient seen in follow-up on selective care unit. He is awake and alert, oriented 3, he sitting up in the chair, on 2 L of oxygen his pulse ox is 97%. Is feeling much better, breathing much easier. Fever or chills, vital signs have been stable, patient has completed a 5 day course of cefepime, blood cultures showed no growth. His labs from yesterday have been reviewed, is dao ewhat blood cell, 6.2, hemoglobin is 13.6, electrolytes are within normal limits, BUN is 24 creatinine is 1.1. His pro-calcitonin level was improving. We stopped the patient's steroids yesterday, there is no worsening in his breathing, no worsening cough or congestion. Objective - Vital Signs Vital signs: Vital Signs Temp 98.3 F 02/13/21 20:00 Pulse 79 02/14/21 04:00 Resp 18 02/14/21 04:00 BP 150/76 02/14/21 00:00 Pulse Ox 97 02/14/21 04:00 Intake & Output 02/13/21 02/14/21 02/14/21 18:59 06:59 18:59 Intake Total 360 236 Output Total 1150 850 Balance -790 -850 236 Weight 70 kg Intake: Oral 360 236 Output: Urine 1150 300 Urine/Stool Mix 550 Other: Voiding Method Urinal # Voids 1 1 # Bowel Movements 1 - Exam GENERAL EXAM: Alert, pleasant, 85-year-old white male, 2 L of oxygen a pulse ox of 98%, resting in bed comfortable in no apparent distress. HEAD: Normocephalic/atraumatic. EYES: Normal reaction of pupils, equal size. Conjunctiva pink, sclera white. NOSE: Clear with pink turbinates. THROAT: No erythema or exudates. NECK: No masses, no JVD, no thyroid enlargement, no adenopathy. CHEST: No chest wall deformity. Symmetrical expansion. LUNGS: Equal air entry with diminished breath sounds at the bases CVS: Regular rate and rhythm, normal S1 and S2, no gallops, no murmurs, no rubs ABDOMEN: Soft, nontender. No hepatosplenomegaly, normal bowel sounds, no guarding or rigidity. EXTREMITIES: No clubbing, no edema, no cyanosis, 2+ pulses and upper and lower extremities. MUSCULOSKELETAL: Muscle strength and tone normal. SPINE: No scoliosis or deformity SKIN: No rashes CENTRAL NERVOUS SYSTEM: Alert and oriented -3. No focal deficits, tone is normal in all 4 extremities. PSYCHIATRIC: Alert and oriented -3. Appropriate affect. Intact judgment and insight. - Labs CBC & Chem 7: 02/13/21 06:55 02/13/21 06:55 Labs: Abnormal Lab Results - Last 24 Hours (Table) 02/13/21 02/13/21 02/13/21 Range/Units 11:46 16:54 20:17 POC Glucose (mg/dL) 188 H 151 H 73 L (75-99) mg/dL 02/14/21 Range/Units 07:16 POC Glucose (mg/dL) 167 H (75-99) mg/dL Microbiology - Last 24 Hours (Table) 02/08/21 10:06 Blood Culture - Preliminary Blood No Growth after 120 hours Assessment and Plan Plan: Assessment: #1. Dyspnea, chronic, with acute worsening associated with some cough and low- grade fever, no clear indication for pneumonia. She had a chest x-ray that showed chronic interstitial changes in the lung bases bilaterally consistent with pulmonary fibrosis. No focal airspace disease or consolidation. #2. Severe COPD, patient is maintained on a combination of Yupelri and DuoNeb. Patient is currently off budesonide because of ongoing recurrent gram-negative infections in the lungs. 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 #3. Previous history of pseudomonal urinary tract infection #4. History of MRSA pneumonia #5. History of previous episode of acute respiratory distress syndrome #6. Chronic hypoxic respiratory failure #7. History of malignant tumor of the esophagus, status post chemoradiation therapy and the patient seems to be in remission for now #8. Physical deconditioning #9. Severe Aortic valve stenosis, severe with peak gradient across the valve of 85, and there is significant pulmonary hypertension with PA pressure of 66 mmHg #10. Hypertensive disorder #11. Hyperlipidemia #12. Gout #13. Carotid artery stenosis, post carotid endarterectomy on the right #14. episode of unresponsiveness with no palpable pulse, requiring brief CPR, with improvement of patient's LOC and mentation. EKG showed sinus rhythm with no significant ST or T-wave abnormalities. showing patchy bibasilar infiltrates improving from prior study. Plan: Patient is stable from pulmonary perspective Vital signs are stable, no fever or chills No acute events overnight Blood cultures have shown no growth Patient has completed 5 day course of cefepime We'll discontinue antibiotics He is breathing comfortably, no cough, no chest congestion From pulmonary perspective he can be considered for discharge home Outpatient follow-up with Dr. Brown in the office in 7-10 days I performed a history & physical examination of the patient and discussed their management with my nurse practitioner, Shae Freeman. I reviewed the nurse practitioner's note and agree with the documented findings and plan of care. Lung sounds are positive for diminished breath sounds throughout the lung field s. The findings and the impression was discussed with the patient. I attest to the documentation by the nurse practitioner. Time with Patient: Less than 30
[2021-02-14 11:48] LABS: Glucose,Whole Blood 195 mg/dL (75-99)
[2021-02-14 16:05] VITALS: BP 130/76; PULSE 74; TEMP 97.4
[2021-02-14 16:54] LABS: Glucose,Whole Blood 228 mg/dL (75-99)
--- NOTE | 2021-02-15 03:40 | P.PN ---
Progress Note - Text Progress Note Date: 02/14/21 Patient will require oxygen at 3L via NC secondary to his congestive heart failure and chronic obstructive pulmonary disease. Case management provided prescription and working on discharge needs.
== END 2021-02-14 18:05 | disposition home health service (06) | DRG 280 ==
LOC: EC 09:31 → 3SCARD 12:55
PROVIDERS: ADMIT Internal Medicine; ATTEND Internal Medicine
PROC: 5A12012 Performance of Cardiac Output, Single, Manual (ICD-10-PCS; principal; 2021-02-11)
DX: I21.4 Non-ST elevation (NSTEMI) myocardial infarction (principal); I50.33 Acute on chronic diastolic (congestive) heart failure; J70.0 Acute pulmonary manifestations due to radiation; J96.11 Chronic respiratory failure with hypoxia; I13.0 Hypertensive heart and chronic kidney disease with heart failure and stage 1 through stage 4 chronic kidney disease, or unspecified chronic kidney disease; Z92.3 Personal history of irradiation; Z85.01 Personal history of malignant neoplasm of esophagus; Y84.2 Radiological procedure and radiotherapy as the cause of abnormal reaction of the patient, or of later complication, without mention of misadventure at the time of the procedure; Z79.82 Long term (current) use of aspirin; E78.5 Hyperlipidemia, unspecified; I25.10 Atherosclerotic heart disease of native coronary artery without angina pectoris; M19.90 Unspecified osteoarthritis, unspecified site; Z79.4 Long term (current) use of insulin; E11.40 Type 2 diabetes mellitus with diabetic neuropathy, unspecified; M47.816 Spondylosis without myelopathy or radiculopathy, lumbar region; K21.9 Gastro-esophageal reflux disease without esophagitis; H91.90 Unspecified hearing loss, unspecified ear; K44.9 Diaphragmatic hernia without obstruction or gangrene; I35.1 Nonrheumatic aortic (valve) insufficiency; I35.0 Nonrheumatic aortic (valve) stenosis; M10.9 Gout, unspecified; Z20.822 Contact with and (suspected) exposure to COVID-19; J43.9 Emphysema, unspecified; R29.6 Repeated falls; I65.29 Occlusion and stenosis of unspecified carotid artery; Z86.14 Personal history of Methicillin resistant Staphylococcus aureus infection; Z87.01 Personal history of pneumonia (recurrent); Z87.440 Personal history of urinary (tract) infections; Z92.21 Personal history of antineoplastic chemotherapy; I73.9 Peripheral vascular disease, unspecified; J84.10 Pulmonary fibrosis, unspecified; Z87.11 Personal history of peptic ulcer disease; E11.51 Type 2 diabetes mellitus with diabetic peripheral angiopathy without gangrene; I95.1 Orthostatic hypotension; N18.9 Chronic kidney disease, unspecified; I27.20 Pulmonary hypertension, unspecified; Z87.442 Personal history of urinary calculi; Z91.81 History of falling; Z82.49 Family history of ischemic heart disease and other diseases of the circulatory system; Z80.8 Family history of malignant neoplasm of other organs or systems; Z79.899 Other long term (current) drug therapy; E11.22 Type 2 diabetes mellitus with diabetic chronic kidney disease
CPT/HCPCS: 36415; 71045; 71046; 80048; 80053; 81003; 83605; 83735; 83880; 84145; 84484; 85025; 85610; 85730; 87040; 87502; 87635; 93005; 93308; 94640; 94760; 96361; 96374; 99285

== ENCOUNTER 2021-04-11 13:50 | Inpatient (IN) | payer MEDICARE ==
[~2021-04-11 13:50] MED LIST changes: +ATROPINE SULFATE 0.1 MG/ML 10ML SYRINGE ONE; +CALCIUM CHLORIDE 100 MG/ML 10 ML SYRINGE ONE; +DOPamine DRIP 400 MG/250 ML BAG IV ONE; -LACTATED RINGERS 1,000 ML IV SCH; +NOREPINEPHRINE 1 MG/ML 4 ML VIAL IV ONE; +SODIUM CHLORIDE 0.9% 250 ML BAG ONE
[2021-04-11 14:02] VITALS: BP 176/148; PULSE 70; RESP 10
[2021-04-11] MEDS ORDERED: MIDAZOLAM 1 MG/ML 5 ML VIAL IV STA ×2 (14:23→14:24)
[2021-04-11] MEDS ORDERED: MORPHINE SULFATE 2 MG/ML SYRINGE IVP STA ×2 (14:24→14:26)
[2021-04-11] MEDS ORDERED: MORPHINE SULFATE 4 MG/ML SYRINGE IVP STA ×4 (14:26→15:32)
[2021-04-11] MEDS ORDERED: CALCIUM CHLORIDE 100 MG/ML 10 ML SYRINGE IVP STA (14:28)
--- NOTE | 2021-04-11 15:18 | ED ---
General Adult HPI - General Chief complaint: Shortness of Breath Stated complaint: Fall Source: patient, EMS, RN notes reviewed, old records reviewed Mode of arrival: EMS - History of Present Illness Initial comments: 85-year-old male presenting from home. Patient had collapsed, was unresponsive. EMS arrived and found the patient be bradycardic in the 30s. He had agonal respirations. He had an oral airway placed and received BVM. He did have some spontaneous respirations and would not tolerate intubation by EMS. He was transcutaneously paced during transport. He been given atropine as well. Patient has significant cardiac history. History is limited. - Related Data Home Medications Medication Instructions Recorded Confirmed Cetirizine HCl 10 mg PO DAILY 07/05/15 02/08/21 Pravastatin Sodium [Pravachol] 80 mg PO HS 09/01/17 02/08/21 Ipratropium-Albuterol Nebulize 3 ml INHALATION RT-QID PRN 07/29/19 02/08/21 [Duoneb 0.5 mg-3 mg/3 ml Soln] Magnesium Oxide 400 mg PO BID 11/24/19 02/08/21 Omeprazole [PriLOSEC] 40 mg PO BID 11/24/19 02/08/21 Potassium Chloride [Potassium 10 meq PO BID 11/24/19 02/08/21 Chloride ER] allopurinoL [Zyloprim] 300 mg PO DAILY 11/24/19 02/08/21 Insulin Lispro [humaLOG Kwikpen] See Protocol SQ AC-TID 06/28/20 02/08/21 Yupelri 175mcg/3ml Solution 175 mcg INHALATION RT-DAILY 11/19/20 02/08/21 buPROPion HCL [Wellbutrin XL] 300 mg PO DAILY 11/19/20 02/08/21 Acetaminophen [Tylenol 8 Hour] 650 mg PO Q4H PRN 12/10/20 02/08/21 Gabapentin [Neurontin] 400 mg PO BID@0800,1400 02/08/21 02/08/21 Gabapentin [Neurontin] 800 mg PO HS 02/08/21 02/08/21 Insulin Glargine,Hum.rec.anlog 20 unit SQ HS 02/08/21 02/08/21 [Lantus Solostar Pen] Midodrine [ProAmatine] 10 mg PO BID 02/08/21 02/08/21 Zolpidem [Ambien] 10 mg PO HS 02/08/21 02/08/21 Previous Rx's Medication Instructions Recorded Aspirin 81 mg PO DAILY chew 08/23/19 Furosemide [Lasix] 40 mg PO DAILY #30 tab 12/16/20 INSULIN ASPART (NovoLOG) [NovoLOG 0 unit SQ ACHS ml 02/14/21 (formulary)] Allergies Allergy/AdvReac Type Severity Reaction Status Date / Time latex Allergy Rash/Hives Verified 02/08/21 11:32 penicillin G Allergy Rash/Hives Verified 02/08/21 11:32 Review of Systems ROS Statement: Those systems with pertinent positive or pertinent negative responses have been documented in the HPI. ROS Other: All systems not noted in ROS Statement are negative. Past Medical History Past Medical History: Cancer, Heart Failure, COPD, Diabetes Mellitus, GERD/Reflux, Hearing Disorder / Deafness, Hyperlipidemia, Hypertension, Memory Impairment, Osteoarthritis (OA), Pneumonia, Renal Disease Additional Past Medical History / Comment(s): Fractures L2-L4 w/ paulina leg pain, DDD, Gout, CARDOSO'S esophagus, Esophageal CA-completed 28 radiation tx on 09/08/17, & 5 chemo tx 09/02/17. hx of ARDS, Hiatal hernia, hx kidney stones, neuropathy, hx stomach ulcers, "left carotid artery 100% blocked." right carotid surgery 10/2020 at [facility]; Hx Shingles 05/2017. ,see Dr Albrecht H&P, chronic kidney disease History of Any Multi-Drug Resistant Organisms: None Reported Past Surgical History: Back Surgery, Heart Catheterization, Hernia Repair, Orthopedic Surgery Additional Past Surgical History / Comment(s): Bilateral rotator cuff surgery, left foot surgery, thinks he has plate and screws, "esophagus radiofrequency ablation", paulina cataracts-lens implants, kyphoplasty. Pain procedures. Epidural steroid injection in back. Past Anesthesia/Blood Transfusion Reactions: No Reported Reaction Additional Past Anesthesia/Blood Transfusion Reaction / Comment(s): . Past Psychological History: No Psychological Hx Reported Smoking Status: Never smoker Past Alcohol Use History: Rare Past Drug Use History: None Reported - Past Family History Mother Family Medical History: Cancer Additional Family Medical History / Comment(s): Kidney, Thyroid cancer. Father Family Medical History: Coronary Artery Disease (CAD) Additional Family Medical History / Comment(s): AT AGE 53. General Exam General appearance: obtunded, in distress Head exam: Present: atraumatic, normocephalic Eye exam: Present: other (3 mm bilaterally and nonreactive) Respiratory exam: Present: respiratory distress, other (Abnormal respirations) Cardiovascular Exam: Present: bradycardia, irregular rhythm GI/Abdominal exam: Present: soft. Absent: distended, tenderness, guarding Skin exam: Present: cyanosis Course Vital Signs 04/11/21 13:52 Pulse Rate 70 Respiratory 10 L Rate Blood Pressure 176/148 O2 Sat by Pulse 67 L Oximetry Medical Decision Making - Medical Decision Making 85-year-old male presenting in extremis. Patient had been paced by paramedics. There is no radial pulses. There is faint non-capture femoral pulse on arrival. Rate around 30. Attempts to increase the pacer capture were unsuccessful. The patient was agonal, cyanotic, hypoxic in the 60s. I did immediately support this patient's respirations and initiate dopamine and norepinephrine and contact the closest available family member who was his daughter Amy. She did indicate that the patient was a DO NOT INTUBATE DO NOT RESUSCITATE. I confirmed this with his and son who were able to present to the emergency department. Patient was supported with vasoactive medications including dopamine and norepinephrine awaiting family arrival. Additionally had a dose of calcium and Versed as well as morphine for comfort. Upon family arrival these medications including norepinephrine and dopamine were discontinued and it was confirmed that the patient was a DO NOT RESUSCITATE DO NOT INTUBATE without aggressive measures for resuscitation. At this time patient was made comfort care. Please refer to nursing documentation for exact details of the timing of these events. 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 He maintains in a wide-complex bradycardia with abnormal respirations. He will be admitted to hospice for end of life care. Case discussed with Dr. Saba who will admit. Patient was admitted to hospice, nurse available in the emergency department to discuss this with the family. - Lab Data Lab Results 04/11/21 Range/Units 15:42 Coronavirus (PCR) Detected A (Not Detectd) Disposition Clinical Impression: Agonal respiration, Bradycardia, End of life care, COVID-19 Disposition: ADMITTED IP TO THIS HOSP Condition: Undetermined Is patient prescribed a controlled substance at d/c from ED?: No Time of Disposition: 15:18
[2021-04-11] MEDS ORDERED: LORazepam 2 MG/ML INJ IV STA (15:32)
[2021-04-11] MEDS ORDERED: HALOPERIDOL LACTATE 5 MG/ML 1 ML VIAL IM PRN (15:37)
[2021-04-11] MEDS ORDERED: GLYCOPYRROLATE 0.2 MG/ML 2 ML VIAL IVP PRN (15:37)
[2021-04-11] MEDS ORDERED: ATROPINE OPHTH SOLN 1% 5ML BTL SUBLINGUAL PRN (15:37)
[2021-04-11] MEDS ORDERED: MORPHINE SULFATE 2 MG/ML SYRINGE IV PRN (15:37)
[2021-04-11] MEDS ORDERED: LORazepam 2 MG/ML INJ IV PRN (15:37)
[2021-04-11] MEDS ORDERED: ONDANSETRON 4 MG/2 ML VIAL IVP PRN (15:37)
[2021-04-11] MEDS ORDERED: HYOSCYAMINE ORAL DROPS 1.875 MG/15 ML BOTTLE PO PRN (15:39)
[2021-04-11] MEDS ORDERED: MORPHINE SULFATE (100 MG/2 ML) 100 MG in SODIUM CHLORIDE 0.9% 100 ML IV SCH (16:00)
--- NOTE | 2021-05-13 18:12 | P.HPIM ---
History of Present Illness H&P Date: 04/11/21 Patient was admitted to the hospital due to altered mental status with agonal breathing and bradycardia. CODE STATUS was changed to comfort measures as per family request. Patient was in the ER. Past Medical History Past Medical History: Cancer, Heart Failure, COPD, Diabetes Mellitus, GERD/Reflux, Hearing Disorder / Deafness, Hyperlipidemia, Hypertension, Memory Impairment, Osteoarthritis (OA), Pneumonia, Renal Disease Additional Past Medical History / Comment(s): Fractures L2-L4 w/ paulina leg pain, DDD, Gout, CARDOSO'S esophagus, Esophageal CA-completed 28 radiation tx on 09/08/17, & 5 chemo tx 09/02/17. hx of ARDS, Hiatal hernia, hx kidney stones, neuropathy, hx stomach ulcers, "left carotid artery 100% blocked." right carotid surgery 10/2020 at [facility]; Hx Shingles 05/2017. ,see Dr Albrecht H&P, chronic kidney disease History of Any Multi-Drug Resistant Organisms: None Reported Past Surgical History: Back Surgery, Heart Catheterization, Hernia Repair, Or thopedic Surgery Additional Past Surgical History / Comment(s): Bilateral rotator cuff surgery, left foot surgery, thinks he has plate and screws, "esophagus radiofrequency ab lation", paulina cataracts-lens implants, kyphoplasty. Pain procedures. Epidural steroid injection in back. Past Anesthesia/Blood Transfusion Reactions: No Reported Reaction Additional Past Anesthesia/Blood Transfusion Reaction / Comment(s): . Past Psychological History: No Psychological Hx Reported Smoking Status: Never smoker Past Alcohol Use History: Rare Past Drug Use History: None Reported - Past Family History Mother Family Medical History: Cancer Additional Family Medical History / Comment(s): Kidney, Thyroid cancer. Father Family Medical History: Coronary Artery Disease (CAD) Additional Family Medical History / Comment(s): AT AGE 53. Medications and Allergies Home Medications Medication Instructions Recorded Confirmed Type Cetirizine HCl 10 mg PO DAILY 07/05/15 02/08/21 History Pravastatin Sodium [Pravachol] 80 mg PO HS 09/01/17 02/08/21 History Ipratropium-Albuterol Nebulize 3 ml INHALATION RT-QID PRN 07/29/19 02/08/21 History [Duoneb 0.5 mg-3 mg/3 ml Soln] Aspirin 81 mg PO DAILY chew 08/23/19 02/08/21 Rx Magnesium Oxide 400 mg PO BID 11/24/19 02/08/21 History Omeprazole [PriLOSEC] 40 mg PO BID 11/24/19 02/08/21 History Potassium Chloride [Potassium 10 meq PO BID 11/24/19 02/08/21 History Chloride ER] allopurinoL [Zyloprim] 300 mg PO DAILY 11/24/19 02/08/21 History Insulin Lispro [humaLOG Kwikpen] See Protocol SQ AC-TID 06/28/20 02/08/21 History Yupelri 175mcg/3ml Solution 175 mcg INHALATION RT-DAILY 11/19/20 02/08/21 History buPROPion HCL [Wellbutrin XL] 300 mg PO DAILY 11/19/20 02/08/21 History Acetaminophen [Tylenol 8 Hour] 650 mg PO Q4H PRN 12/10/20 02/08/21 History Furosemide [Lasix] 40 mg PO DAILY #30 tab 12/16/20 02/08/21 Rx Gabapentin [Neurontin] 400 mg PO BID@0800,1400 02/08/21 02/08/21 History Gabapentin [Neurontin] 800 mg PO HS 02/08/21 02/08/21 History Insulin Glargine,Hum.rec.anlog 20 unit SQ HS 02/08/21 02/08/21 History [Lantus Solostar Pen] Midodrine [ProAmatine] 10 mg PO BID 02/08/21 02/08/21 History Zolpidem [Ambien] 10 mg PO HS 02/08/21 02/08/21 History INSULIN ASPART (NovoLOG) [NovoLOG 0 unit SQ ACHS ml 02/14/21 Rx (formulary)] Allergies Allergy/AdvReac Type Severity Reaction Status Date / Time latex Allergy Rash/Hives Verified 02/08/21 11:32 penicillin G Allergy Rash/Hives Verified 02/08/21 11:32
--- NOTE | 2021-05-13 18:15 | P.DS ---
Providers Date of admission: 04/11/21 15:48 Expected date of discharge: 04/11/21 Attending physician: Serg Saba [facility] Course: Patient was admitted to the hospital due to altered mental status with agonal breathing and bradycardia. CODE STATUS was changed to comfort measures as per family request. Patient was in the ER. Patient Condition at Discharge: Undetermined Plan - Discharge Summary New Discharge Prescriptions: No Action Cetirizine HCl 10 mg PO DAILY Pravastatin Sodium [Pravachol] 80 mg PO HS Ipratropium-Albuterol Nebulize [Duoneb 0.5 mg-3 mg/3 ml Soln] 3 ml INHALATION RT-QID PRN PRN Reason: Shortness Of Breath Aspirin 81 mg PO DAILY chew allopurinoL [Zyloprim] 300 mg PO DAILY Magnesium Oxide 400 mg PO BID Omeprazole [PriLOSEC] 40 mg PO BID Potassium Chloride [Potassium Chloride ER] 10 meq PO BID Insulin Lispro [humaLOG Kwikpen] See Protocol SQ AC-TID Yupelri 175mcg/3ml Solution 175 mcg INHALATION RT-DAILY Acetaminophen [Tylenol 8 Hour] 650 mg PO Q4H PRN PRN Reason: Pain Or Fever > 100.5 Furosemide [Lasix] 40 mg PO DAILY #30 tab Zolpidem [Ambien] 10 mg PO HS Insulin Glargine,Hum.rec.anlog [Lantus Solostar Pen] 20 unit SQ HS Gabapentin [Neurontin] 400 mg PO BID@0800,1400 buPROPion HCL [Wellbutrin XL] 300 mg PO DAILY Gabapentin [Neurontin] 800 mg PO HS Midodrine [ProAmatine] 10 mg PO BID INSULIN ASPART (NovoLOG) [NovoLOG (formulary)] 0 unit SQ ACHS ml Discharge Medication List Cetirizine HCl 10 mg PO DAILY 07/05/15 [History] Pravastatin Sodium [Pravachol] 80 mg PO HS 09/01/17 [History] Ipratropium-Albuterol Nebulize [Duoneb 0.5 mg-3 mg/3 ml Soln] 3 ml INHALATION RT-QID PRN 07/29/19 [History] Aspirin 81 mg PO DAILY chew 08/23/19 [Rx] Magnesium Oxide 400 mg PO BID 11/24/19 [History] Omeprazole [PriLOSEC] 40 mg PO BID 11/24/19 [History] Potassium Chloride [Potassium Chloride ER] 10 meq PO BID 11/24/19 [History] allopurinoL [Zyloprim] 300 mg PO DAILY 11/24/19 [History] Insulin Lispro [humaLOG Kwikpen] See Protocol SQ AC-TID 06/28/20 [History] Yupelri 175mcg/3ml Solution 175 mcg INHALATION RT-DAILY 11/19/20 [History] buPROPion HCL [Wellbutrin XL] 300 mg PO DAILY 11/19/20 [History] Acetaminophen [Tylenol 8 Hour] 650 mg PO Q4H PRN 12/10/20 [History] Furosemide [Lasix] 40 mg PO DAILY #30 tab 12/16/20 [Rx] Gabapentin [Neurontin] 400 mg PO BID@0800,1400 02/08/21 [History] Gabapentin [Neurontin] 800 mg PO HS 02/08/21 [History] Insulin Glargine,Hum.rec.anlog [Lantus Solostar Pen] 20 unit SQ HS 02/08/21 [History] Midodrine [ProAmatine] 10 mg PO BID 02/08/21 [History] Zolpidem [Ambien] 10 mg PO HS 02/08/21 [History] INSULIN ASPART (NovoLOG) [NovoLOG (formulary)] 0 unit SQ ACHS ml 02/14/21 [Rx] Follow up Appointment(s)/Referral(s): Sumit Dozier DO [Primary Care Provider] - 1-2 days Discharge Disposition: - Preliminary Cause of Preliminary Cause of : Acute hypoxic respiratory failure
== END 2021-04-12 02:00 | disposition expired | DRG 951 ==
LOC: EC 13:50 → 5NMEDONC 15:48 → 4SSUR 16:09
PROVIDERS: ADMIT Internal Medicine; ATTEND Internal Medicine
PROC: 3E033XZ Introduction of Vasopressor into Peripheral Vein, Percutaneous Approach (ICD-10-PCS; principal; 2021-04-11)
DX: Z51.5 Encounter for palliative care (principal); U07.1 COVID-19; J96.01 Acute respiratory failure with hypoxia; I13.0 Hypertensive heart and chronic kidney disease with heart failure and stage 1 through stage 4 chronic kidney disease, or unspecified chronic kidney disease; E11.22 Type 2 diabetes mellitus with diabetic chronic kidney disease; E78.5 Hyperlipidemia, unspecified; H91.90 Unspecified hearing loss, unspecified ear; I50.9 Heart failure, unspecified; J44.9 Chronic obstructive pulmonary disease, unspecified; K22.70 Barrett's esophagus without dysplasia; N18.9 Chronic kidney disease, unspecified; Z66 Do not resuscitate; R00.1 Bradycardia, unspecified; M10.9 Gout, unspecified; M79.605 Pain in left leg; M79.604 Pain in right leg; M51.36 Other intervertebral disc degeneration, lumbar region; M19.90 Unspecified osteoarthritis, unspecified site; K44.9 Diaphragmatic hernia without obstruction or gangrene; K21.9 Gastro-esophageal reflux disease without esophagitis; Z79.899 Other long term (current) drug therapy; R09.02 Hypoxemia; E11.42 Type 2 diabetes mellitus with diabetic polyneuropathy; Z79.4 Long term (current) use of insulin; Z79.82 Long term (current) use of aspirin; Z80.8 Family history of malignant neoplasm of other organs or systems; Z82.49 Family history of ischemic heart disease and other diseases of the circulatory system; Z85.01 Personal history of malignant neoplasm of esophagus; Z87.11 Personal history of peptic ulcer disease; Z87.442 Personal history of urinary calculi
CPT/HCPCS: 87635; 96374; 96375; 96376; 99285

== ENCOUNTER 2021-04-11 16:37 | Inpatient (IN) | payer MEDICAID ==
[2021-04-11] MEDS ORDERED: LORazepam 2 MG/ML INJ IV PRN (16:40)
[2021-04-11] MEDS ORDERED: GLYCOPYRROLATE 0.2 MG/ML 2 ML VIAL IVP PRN (16:40)
[2021-04-11] MEDS ORDERED: ATROPINE OPHTH SOLN 1% 5ML BTL SUBLINGUAL PRN (16:40)
[2021-04-11] MEDS ORDERED: HALOPERIDOL LACTATE 5 MG/ML 1 ML VIAL IM PRN (16:40)
[2021-04-11] MEDS ORDERED: MORPHINE SULFATE 2 MG/ML SYRINGE IV PRN (16:40)
[2021-04-11] MEDS ORDERED: ONDANSETRON 4 MG/2 ML VIAL IVP PRN (16:40)
[2021-04-11] MEDS ORDERED: HYOSCYAMINE ORAL DROPS 1.875 MG/15 ML BOTTLE PO PRN (16:42)
[2021-04-11] MEDS ORDERED: SCOPOLAMINE 1.5MG/72HR PATCH TRANSDERM SCH (16:45)
[2021-04-11] MEDS ORDERED: MORPHINE SULFATE (100 MG/2 ML) 100 MG in SODIUM CHLORIDE 0.9% 100 ML IV SCH (17:15)
== END 2021-04-12 05:48 | disposition expired | DRG 951 ==
LOC: 4SSUR 16:58
PROVIDERS: ADMIT Internal Medicine; ATTEND Internal Medicine
DX: Z53.9 Procedure and treatment not carried out, unspecified reason (principal)